=== PATIENT | male | born 1935 | race African-American/Black ===

== ENCOUNTER 2018-12-20 17:39 | Inpatient (IN) | payer MEDICARE ==
[~2018-12-20] VITALS: Ht 182.9 cm; Wt 117.0 kg
--- NOTE | 2018-12-20 18:24 | Emergency Room Report ---
History of Present Illness General Chief Complaint: Abnormal Labs Source: Patient, Medical Record, EMS, PMD Present Illness HPI Patient presents emergency department today with abnormal blood testing. Patient was sent in by Dr. Potter. Patient was noted to have elevated BUN/ creatinine. Patient states that he does not feel well. He states he has been feeling weak not eating not drinking. He denies any fever chest pain shortness breath. Denies any dysuria urinary frequency. No other complaints are noted. Symptoms noted to be moderate to severe. No other modifying factors. No other associated signs and symptoms. No other complaints were noted. Allergies: Coded Allergies: No Known Allergies (Unverified , 12/20/18) Patient History Past Medical History: DM, HTN, CAD, CHF, CVA/TIA Past Surgical History: none Pertinent Family History: none Social History: Denies: smoking, alcohol use, drug use Reviewed Nursing Documentation: PMH: Agreed; PSxH: Agreed Nursing Documentation-PMH Hx Cardiac Problems: Yes - CAD,CHF Hx Hypertension: Yes Hx Diabetes: Yes Hx Cerebrovascular Accident: Yes Review of Systems All Other Systems: negative except mentioned in HPI Physical Exam Vital Signs Date Time Temp Pulse Resp B/P (MAP) Pulse Ox O2 Delivery O2 Flow Rate FiO2 12/20/18 17:35 98.1 66 18 130/69 (89) 98 Room Air Sp02 EP Interpretation: reviewed, normal General Appearance: alert, mild distress Head: atraumatic Eyes: bilateral eye normal inspection ENT: normal ENT inspection, hearing grossly normal, normal voice Neck: normal inspection, full range of motion, supple, no bony tend Respiratory: normal inspection, lungs clear, normal breath sounds, no respiratory distress, no retraction, no wheezing Cardiovascular #1: regular rate, rhythm, no edema Gastrointestinal: normal inspection, normal bowel sounds, non tender, soft, no guarding, no hernia Genitourinary: no CVA tenderness Musculoskeletal: back normal, normal range of motion, swelling - Bilateral lower extremity Neurologic: normal inspection, alert, responsive, speech normal Psychiatric: normal inspection, judgement/insight normal, mood/affect normal Skin: no rash Medical Decision Making Diagnostic Impression: Primary Impression: Acute renal injury Additional Impressions: Hematuria UTI (urinary tract infection) Dehydration ER Course Patient presents emergency department today with weakness abnormal laboratory work-up. Differential diagnosis include dehydration, electrolyte abnormality, acute renal injury just name a few. Given the severity of the patient's presentation I felt this is a highly complex patient. This patient required extensive workup. Patient laboratory work-up shows evidence of renal insufficiency acute renal injury. Because this patient was given fluids. There is also evidence UTI patient started on IV antibiotics. Case was discussed with Dr. Wilfred Potter who referred me to speak with Dr. Marcelo Bar who can be reached at [phone]. After discussion with Dr. Marcelo Potter you recommend I admit the patient to Dr. Jamie Gray. Case was discussed with Dr. Jamie Gray. Patient will be admitted for further management. Labs Test 12/20/18 18:50 White Blood Count 5.9 K/UL (4.8-10.8) Red Blood Count 3.89 M/UL (4.70-6.10) Hemoglobin 12.3 G/DL (14.2-18.0) Hematocrit 36.3 % (42.0-52.0) Mean Corpuscular Volume 93 FL (80-99) Mean Corpuscular Hemoglobin 31.7 PG (27.0-31.0) Mean Corpuscular Hemoglobin Concent 33.9 G/DL (32.0-36.0) Red Cell Distribution Width 11.8 % (11.6-14.8) Platelet Count 118 K/UL (150-450) Mean Platelet Volume 10.2 FL (6.5-10.1) Neutrophils (%) (Auto) 54.8 % (45.0-75.0) Lymphocytes (%) (Auto) 32.2 % (20.0-45.0) Monocytes (%) (Auto) 10.0 % (1.0-10.0) Eosinophils (%) (Auto) 1.5 % (0.0-3.0) Basophils (%) (Auto) 1.5 % (0.0-2.0) Urine Color Brown Urine Appearance Very cloudy Urine pH 5 (4.5-8.0) Urine Specific [place] 1.010 (1.005-1.035) Urine Protein 3+ (NEGATIVE) Urine Glucose (UA) Negative (NEGATIVE) Urine Ketones Negative (NEGATIVE) Urine Blood 5+ (NEGATIVE) Urine Nitrite Negative (NEGATIVE) Urine Bilirubin Negative (NEGATIVE) Urine Urobilinogen Normal MG/DL (0.0-1.0) Urine Leukocyte Esterase 2+ (NEGATIVE) Urine RBC Tntc /HPF (0 - 0) Urine WBC 5-10 /HPF (0 - 0) Urine Squamous Epithelial Cells None /LPF (NONE/OCC) Urine Bacteria Few /HPF (NONE) Sodium Level 141 MMOL/L (136-145) Potassium Level 4.4 MMOL/L (3.5-5.1) Chloride Level 105 MMOL/L (98-107) Carbon Dioxide Level 30 MMOL/L (21-32) Anion Gap 6 mmol/L (5-15) Blood Urea Nitrogen 57 mg/dL (7-18) Creatinine 1.9 MG/DL (0.55-1.30) Estimat Glomerular Filtration Rate mL/min (>60) Glucose Level 123 MG/DL (74-106) Calcium Level 9.1 MG/DL (8.5-10.1) Total Bilirubin 0.4 MG/DL (0.2-1.0) Aspartate Amino Transf (AST/SGOT) 34 U/L (15-37) Alanine Aminotransferase (ALT/SGPT) 36 U/L (12-78) Alkaline Phosphatase 84 U/L (46-116) Total Creatine Kinase 200 U/L (26-308) Creatine Kinase MB 1.6 NG/ML (0.0-3.6) Creatine Kinase MB Relative Index 0.8 Troponin I 0.008 ng/mL (0.000-0.056) Total Protein 7.4 G/DL (6.4-8.2) Albumin 3.3 G/DL (3.4-5.0) Globulin 4.1 g/dL Albumin/Globulin Ratio 0.8 (1.0-2.7) EKG Diagnostic Results Rate: normal Rhythm: NSR ST Segments: no acute changes Rhythm Strip Diag. Results EP Interpretation: yes Rate: 50s Rhythm: NSR, no ectopy, other - occasional pvcs Chest X-Ray Diagnostic Results Chest X-Ray Diagnostic Results : Chest X-Ray Ordered: Yes # of Views/Limited/Complete: 1 View Indication: Shortness of Breath EP Interpretation: Yes Interpretation: no consolidation, no effusion, no pneumothorax, no acute cardiopulmonary disease Impression: No acute disease Electronically Signed by: Electronically signed by Herbert Garza MD Last Vital Signs Date Time Temp Pulse Resp B/P (MAP) Pulse Ox O2 Delivery O2 Flow Rate FiO2 12/20/18 17:35 98.1 66 18 130/69 (31) 98 Room Air Status: improved Disposition: ADMITTED INPATIENT Condition: Serious Herbert Garza MD Dec 20, 2018 18:24
--- NOTE | 2018-12-20 18:25 | NUR ---
ED Nurse Note: PT BROUGHT IN BY AMBULANCE FROM [facility] DUE TO ABNORMAL LABS. PER EMS, CREATININE AND BUN WERE ELEVATED BUT NO VALUES PROVIDED. PT AOX4. PT DENIES ANY SYMPTOMS OR PAIN AND STATES "I FEEL GREAT." PT DENIES ANY PAINFUL URINATION OR DIFFICULTY URINATING.
[2018-12-20 18:29] VITALS: BP 126/72
[2018-12-20] MEDS ORDERED: ISOSORBIDE DINI10 MG ORAL (18:36)
[2018-12-20] MEDS ORDERED: AVODART0.5 MG ORAL (18:36)
[2018-12-20] MEDS ORDERED: ACETAMINOPHEN325 M1 ORAL (18:36)
[2018-12-20] MEDS ORDERED: CATAPRES0.2 MG ORAL (18:36)
[2018-12-20] MEDS ORDERED: BISACODYL5 MG ORAL (18:36)
[2018-12-20] MEDS ORDERED: COREG12.5 MG ORAL (18:36)
[2018-12-20] MEDS ORDERED: LOSARTAN POTASS50 MG ORAL (18:36)
[2018-12-20] MEDS ORDERED: MILK OF MA400 MG/51 ORAL (18:36)
[2018-12-20] MEDS ORDERED: AMLODIPINE BESY10 MG ORAL (18:36)
[2018-12-20] MEDS ORDERED: HYDRALAZINE HCL50 MG ORAL (18:36)
[2018-12-20] MEDS ORDERED: ATORVASTATIN CA40 MG ORAL (18:36)
[2018-12-20] MEDS ORDERED: FUROSEMIDE40 MG ORAL (18:36)
[2018-12-20] MEDS ORDERED: VITAMIN B COMP1 EAC2 ORAL (18:36)
--- NOTE | 2018-12-20 19:17 | NUR ---
HAND-OFF: REPORT GIVEN TO MATT BHATT.
[2018-12-20 19:40] LABS: BASOPHILS % (AUTO) 1.5 % (0.0-2.0); EOSINOPHILS % (AUTO) 1.5 % (0.0-3.0); HEMATOCRIT 36.3 % (42.0-52.0); HEMOGLOBIN 12.3 G/DL (14.2-18.0); LYMPHOCYTES % (AUTO) 32.2 % (20.0-45.0); MEAN CORPUSCULAR VOLUME 93 FL (80-99); NEUTROPHILS % (AUTO) 54.8 % (45.0-75.0); PLATELET COUNT 118 K/UL (150-450); RED BLOOD COUNT 3.89 M/UL (4.70-6.10); RED CELL DISTRIBUTION WIDTH 11.8 % (11.6-14.8); WHITE BLOOD COUNT 5.9 K/UL (4.8-10.8)
[2018-12-20 19:41] LABS: APPEARANCE,URINE VERY CLOUDY; BILIRUBIN, URINE NEGATIVE (NEGATIVE); GLUCOSE, URINE (UA) NEGATIVE (NEGATIVE); KETONES,URINE NEGATIVE (NEGATIVE); LEUKOCYTE ESTERASE ,URINE 2+ (NEGATIVE); NITRITE,URINE NEGATIVE (NEGATIVE); PH,URINE 5 (4.5-8.0); PROTEIN,URINE 3+ (NEGATIVE); UROBILINOGEN,URINE NORMAL MG/DL (0.0-1.0)
[2018-12-20 19:43] LABS: COLOR,URINE BROWN
[2018-12-20 19:55] LABS: ANION GAP 6 mmol/L (5-15); BLOOD UREA NITROGEN 57 mg/dL (7-18); CALCIUM 9.1 MG/DL (8.5-10.1); CARBON DIOXIDE 30 MMOL/L (21-32); CHLORIDE 105 MMOL/L (98-107); CREATININE 1.9 MG/DL (0.55-1.30); POTASSIUM 4.4 MMOL/L (3.5-5.1); SODIUM 141 MMOL/L (136-145)
[2018-12-20 20:08] LABS: ALANINE AMINOTRANSFERASE 36 U/L (12-78); ALBUMIN 3.3 G/DL (3.4-5.0); ALBUMIN/GLOBULIN RATIO 0.8 (1.0-2.7); ALKALINE PHOSPHATASE 84 U/L (46-116); ASPARTATE AMINO TRANSFERASE 34 U/L (15-37); BILIRUBIN,TOTAL 0.4 MG/DL (0.2-1.0); CKMB 1.6 NG/ML (0.0-3.6); CREATINE KINASE 200 U/L (26-308)
[2018-12-20] MEDS ORDERED: cefTRIAXone 1 GM in NS 55 ML IVPB ONE (20:15)
[2018-12-20] MEDS ORDERED: Zolpidem 5mg tab ORAL PRN (20:30)
[2018-12-20] MEDS ORDERED: Nitroglycerin Subl 0.4mg tab SL PRN (20:30)
[2018-12-20] MEDS ORDERED: LORazepam Inj 2mg/ml 1ml IV PRN (20:30)
[2018-12-20] MEDS ORDERED: Ipratropium 0.02% Inh Soln 2.5ml UD HHN PRN (20:30)
--- NOTE | 2018-12-20 21:30 | NUR ---
TRANSFER TO FLOOR: Patient transferred to as ordered, per Dr Gray. Report given to MATT Maradiaga. Belongings and medications given to . Family and or S/O informed of transfer, spoke with daughter Jodi.
--- NOTE | 2018-12-20 21:30 | NUR ---
NURSE NOTES: Report taken from MATT Gonzalez from ER.
--- NOTE | 2018-12-20 21:42 | NUR ---
NURSE NOTES: Patient arrived to unit via hospital bed, can ambulate with moderate assist. No signs of distress on room air. No complaints of pain. Patient is continent, but uses urinal at bedside. Skin is dry and scaly, no open wounds or areas of concern. Has bilateral LE edema, pitting +1, full sensation. Rt FA IV 20g c/d/i and patent. Bed in lowest position, call light within reach.
[2018-12-20] MEDS ORDERED: Heparin 5000 units/ml inj SUBQ SCH (21:47)
[2018-12-21] VITALS (8 sets, daily range): BP systolic 131–200; BP diastolic 66–103
[2018-12-21] MEDS: Albuterol/Ipratropium 3ml neb HHN SCH ×4 (00:57→20:05)
[2018-12-21] MEDS ORDERED: Milk of Magnesia 30ml Ud ORAL PRN (06:30)
[2018-12-21] MEDS ORDERED: HydrALAZINE 25mg tab ORAL PRN (06:30)
[2018-12-21] MEDS: HYDROmorphone 1mg/ml Carpuject IVP PRN ×2 (06:42→16:29)
[2018-12-21] MEDS: NovoLOG Insulin Flexpen SUBQ SCH ×4 (06:48→22:11)
[2018-12-21 07:16] LABS: BASOPHILS % (AUTO) 0.9 % (0.0-2.0); EOSINOPHILS % (AUTO) 1.7 % (0.0-3.0); HEMATOCRIT 37.4 % (42.0-52.0); LYMPHOCYTES % (AUTO) 31.2 % (20.0-45.0); MEAN CORPUSCULAR VOLUME 97 FL (80-99); MONOCYTES % (AUTO) 10.5 % (1.0-10.0); NEUTROPHILS % (AUTO) 55.7 % (45.0-75.0); PLATELET COUNT 110 K/UL (150-450); RED BLOOD COUNT 3.85 M/UL (4.70-6.10); RED CELL DISTRIBUTION WIDTH 12.1 % (11.6-14.8); WHITE BLOOD COUNT 4.8 K/UL (4.8-10.8)
--- NOTE | 2018-12-21 07:25 | NUR ---
NURSE NOTES: Report received from Hiren RN, rounds made. Patient resting in high fowlers position in bed. Alert, oriented x4, calm. No distress on RA. IVF (NS at 50 ml/hr) infusing to RFA. BLE ankle/pedal +2 pitting edema, dry/flaky skin noted, skin intact. Patient having difficulty/pain with voiding, noted bloody urine output, small amount, unable to obtain UA. Encouraged PO fluid intake. Appetite poor, denies NV. Call light in reach. Bed in lowest position, will continue to monitor.
[2018-12-21 07:34] LABS: ALKALINE PHOSPHATASE 64 U/L (46-116); ANION GAP 6 mmol/L (5-15); BLOOD UREA NITROGEN 45 mg/dL (7-18); CARBON DIOXIDE 31 MMOL/L (21-32); CHLORIDE 105 MMOL/L (98-107); CHOLESTEROL 107 MG/DL (< 200); CREATININE 1.6 MG/DL (0.55-1.30); HDL CHOLESTEROL 45 MG/DL (40-60); POTASSIUM 3.6 MMOL/L (3.5-5.1); SODIUM 142 MMOL/L (136-145); TRIGLYCERIDES 89 MG/DL (30-150)
--- NOTE | 2018-12-21 07:36 | NUR ---
HAND-OFF: Report given to MATT David. Patient is awake and VS stable.
--- NOTE | 2018-12-21 08:38 | NUR ---
NURSE NOTES: Dr. Omer notified of platelets 110, order with Heparin administration parameters received. See order.
[2018-12-21] MEDS ORDERED: Furosemide 40mg tab ORAL SCH (09:00)
[2018-12-21] MEDS ORDERED: Losartan 50mg tab ORAL SCH (09:00)
[2018-12-21] MEDS ORDERED: HydrALAZINE 50mg tab ORAL SCH (09:00)
[2018-12-21] MEDS: Heparin 5000 units/ml inj SUBQ SCH ×2 (09:38→22:10)
[2018-12-21] MEDS: Carvedilol 12.5mg tab ORAL SCH ×2 (09:40→22:04)
[2018-12-21] MEDS: Bisacodyl EC 5mg tab ORAL SCH (09:41)
--- NOTE | 2018-12-21 10:30 | NUR ---
NURSE NOTES: Dr. Sofia notified of BP 200/103 and urinary pain/output characteristics, MD will update orders.
--- NOTE | 2018-12-21 10:41 | NUR ---
NURSE NOTES: Blood pressure recheck 172/73 mmHg, HR 87. Patient sitting in chair (transferred with x2 assist), asymptomatic, no chest pain, SOB, or dizziness at this, will continue to monitor.
--- NOTE | 2018-12-21 11:15 | Diagnostic Imaging Report ---
Indication: Cough Comparison: None A single view chest radiograph was obtained. Findings: No definite infiltrate or pulmonary vascular congestion identified. The heart is enlarged. The aorta is mildly enlarged consistent with atherosclerotic vascular disease. The bones are osteopenic. Impression: No acute disease
--- NOTE | 2018-12-21 11:31 | Cardiac Electrophysiology PN ---
Subjective Subjective [id number] Objective Last 24 Hour Vital Signs Date Time Temp Pulse Resp B/P (MAP) Pulse Ox O2 Delivery O2 Flow Rate FiO2 12/21/18 10:42 87 172/73 (106) 12/21/18 09:41 92 200/103 12/21/18 09:40 200/103 12/21/18 09:40 200/103 12/21/18 09:40 92 200/103 12/21/18 09:39 200/103 12/21/18 09:00 Room Air 12/21/18 08:00 97.9 92 19 200/103 (135) 94 12/21/18 07:37 Room Air 21 12/21/18 07:36 Room Air 21 12/21/18 06:43 184/90 12/21/18 04:00 98.1 65 18 172/82 (112) 95 12/21/18 01:07 84 18 98 Room Air 21 12/21/18 00:58 84 18 96 Room Air 21 12/21/18 00:58 84 18 96 Room Air 21 12/21/18 00:00 97.4 67 18 140/73 (95) 99 12/20/18 22:00 Room Air 12/20/18 21:30 98.2 72 17 126/72 99 Room Air 12/20/18 18:29 98.2 72 17 126/72 99 Room Air 12/20/18 17:35 98.1 66 18 130/69 (89) 98 Room Air Intake and Output 12/20/18 12/21/18 19:00 07:00 Intake Total 50 ml Output Total 1200 ml Balance -1150 ml IV Total 50 ml Output Urine Total 1200 ml # Voids 1 Laboratory Tests Test 12/20/18 18:50 12/21/18 05:40 White Blood Count 5.9 K/UL (4.8-10.8) 4.8 K/UL (4.8-10.8) Red Blood Count 3.89 M/UL (4.70-6.10) L 3.85 M/UL (4.70-6.10) L Hemoglobin 12.3 G/DL (14.2-18.0) L 12.0 G/DL (14.2-18.0) L Hematocrit 36.3 % (42.0-52.0) L 37.4 % (42.0-52.0) L Mean Corpuscular Volume 93 FL (80-99) 97 FL (80-99) Mean Corpuscular Hemoglobin 31.7 PG (27.0-31.0) H 31.2 PG (27.0-31.0) H Mean Corpuscular Hemoglobin Concent 33.9 G/DL (32.0-36.0) 32.2 G/DL (32.0-36.0) Red Cell Distribution Width 11.8 % (11.6-14.8) 12.1 % (11.6-14.8) Platelet Count 118 K/UL (150-450) L 110 K/UL (150-450) L Mean Platelet Volume 10.2 FL (6.5-10.1) H 9.3 FL (6.5-10.1) Neutrophils (%) (Auto) 54.8 % (45.0-75.0) 55.7 % (45.0-75.0) Lymphocytes (%) (Auto) 32.2 % (20.0-45.0) 31.2 % (20.0-45.0) Monocytes (%) (Auto) 10.0 % (1.0-10.0) 10.5 % (1.0-10.0) H Eosinophils (%) (Auto) 1.5 % (0.0-3.0) 1.7 % (0.0-3.0) Basophils (%) (Auto) 1.5 % (0.0-2.0) 0.9 % (0.0-2.0) Urine Color Brown Urine Appearance Very cloudy Urine pH 5 (4.5-8.0) Urine Specific [place] 1.010 (1.005-1.035) Urine Protein 3+ (NEGATIVE) H Urine Glucose (UA) Negative (NEGATIVE) Urine Ketones Negative (NEGATIVE) Urine Blood 5+ (NEGATIVE) H Urine Nitrite Negative (NEGATIVE) Urine Bilirubin Negative (NEGATIVE) Urine Urobilinogen Normal MG/DL (0.0-1.0) Urine Leukocyte Esterase 2+ (NEGATIVE) H Urine RBC Tntc /HPF (0 - 0) H Urine WBC 5-10 /HPF (0 - 0) H Urine Squamous Epithelial Cells None /LPF (NONE/OCC) Urine Bacteria Few /HPF (NONE) Sodium Level 141 MMOL/L (136-145) 142 MMOL/L (136-145) Potassium Level 4.4 MMOL/L (3.5-5.1) 3.6 MMOL/L (3.5-5.1) Chloride Level 105 MMOL/L (98-107) 105 MMOL/L (98-107) Carbon Dioxide Level 30 MMOL/L (21-32) 31 MMOL/L (21-32) Anion Gap 6 mmol/L (5-15) 6 mmol/L (5-15) Blood Urea Nitrogen 57 mg/dL (7-18) H 45 mg/dL (7-18) H Creatinine 1.9 MG/DL (0.55-1.30) H 1.6 MG/DL (0.55-1.30) H Estimat Glomerular Filtration Rate mL/min (>60) mL/min (>60) Glucose Level 123 MG/DL (74-106) H 105 MG/DL (74-106) Hemoglobin A1c 5.7 % (4.3-6.0) Calcium Level 9.1 MG/DL (8.5-10.1) 9.0 MG/DL (8.5-10.1) Total Bilirubin 0.4 MG/DL (0.2-1.0) Aspartate Amino Transf (AST/SGOT) 34 U/L (15-37) Alanine Aminotransferase (ALT/SGPT) 36 U/L (12-78) Alkaline Phosphatase 84 U/L (46-116) 64 U/L (46-116) Total Creatine Kinase 200 U/L (26-308) Creatine Kinase MB 1.6 NG/ML (0.0-3.6) Creatine Kinase MB Relative Index 0.8 Troponin I 0.008 ng/mL (0.000-0.056) Total Protein 7.4 G/DL (6.4-8.2) Albumin 3.3 G/DL (3.4-5.0) L Globulin 4.1 g/dL Albumin/Globulin Ratio 0.8 (1.0-2.7) L Prothrombin Time 10.7 SEC (9.30-11.50) Prothromb Time International Ratio 1.0 (0.9-1.1) Activated Partial Thromboplast Time 29 SEC (23-33) Triglycerides Level 89 MG/DL (30-150) Cholesterol Level 107 MG/DL (< 200) LDL Cholesterol 49 mg/dL (<100) HDL Cholesterol 45 MG/DL (40-60) Cholesterol/HDL Ratio 2.4 (3.3-4.4) L Prostate Specific Antigen 1.24 ng/mL (0.13-4.0) Kd Fish MD Dec 21, 2018 11:31
[2018-12-21 11:59] LABS: APPEARANCE,URINE VERY CLOUDY; BILIRUBIN, URINE NEGATIVE (NEGATIVE); COLOR,URINE RED; GLUCOSE, URINE (UA) NEGATIVE (NEGATIVE); KETONES,URINE NEGATIVE (NEGATIVE); LEUKOCYTE ESTERASE ,URINE 1+ (NEGATIVE); NITRITE,URINE NEGATIVE (NEGATIVE); PH,URINE 7 (4.5-8.0); PROTEIN,URINE 4+ (NEGATIVE); UROBILINOGEN,URINE NORMAL MG/DL (0.0-1.0)
[2018-12-21] MEDS: Tamsulosin 0.4mg cap ORAL SCH ×2 (12:02→17:41)
[2018-12-21] MEDS: Imdur 30mg tab ORAL SCH (12:03)
--- NOTE | 2018-12-21 13:20 | Consultation ---
Consult Note Consult Note asked to eval for renal failure and BP management Patient presents emergency department today with abnormal blood testing. Patient was sent in by Dr. Potter. Patient was noted to have elevated BUN/ creatinine. Patient states that he does not feel well. He states he has been feeling weak not eating not drinking. He denies any fever chest pain shortness breath. Denies any dysuria urinary frequency. No other complaints are noted. Symptoms noted to be moderate to severe. No other modifying factors. No other associated signs and symptoms. No other complaints were noted. No Known Allergies (Unverified , 12/20/18) Past Medical History: DM, HTN, CAD, CHF, CVA/TIA Hx Cardiac Problems: Yes - CAD,CHF Hx Hypertension: Yes Hx Diabetes: Yes Hx Cerebrovascular Accident: Yes interviewed examined data reviewed cc of dysuria and hematuria . Assessment/Plan ANGELA HTN OOC Hematuria- Likely UTI Dehydration DM CAD Urine culture- Flomax Rocephin Slow hydrate 2D echo Keep BP and BS in check per orders Russell Sofia MD Dec 21, 2018 13:20
[2018-12-21] MEDS ORDERED: cloNIDine 0.2mg Tab ORAL SCH (14:00)
[2018-12-21] MEDS ORDERED: cefTRIAXone 1 GM in D5W 55 ML IVPB ONE (14:00)
[2018-12-21] MEDS: HydrALAZINE 50mg tab ORAL SCH (14:28)
--- NOTE | 2018-12-21 15:05 | NUR ---
P.T NOTE: P.T EVALUATION COMPLETED AND TREATMENT INITIATED. PLEASE REFER TO P.T EVALUATION FOR CURRENT FUNCTIONAL STATUS. PATIENT IS ALERT, O X 3 , PLEASANT AND COOPERATIVE, NO C/O PAIN BUT GENERALIZED WEAKNESS. PATIENT CURRENTLY REQUIRE MOD A X 1 FOR BED MOBILITY AND AND TRANSFERS AND CGA X 1 FOR GAIT/AMBULATION ACTIVITIES USING THE FWW. SKILLED P.T SERVICE IS WARRANTED TO IMPROVE STRENGTH , ENDURANCE AND BALANCE TO INCREASE MOBILITY INDEPENDENCE AND SAFETY. RECOMMEND RETURN TO PRIOR LIVING ARRANGEMENT AT [facility]. Addendum: 12/21/18 at 1507 by SERGIO HODGSON PT Amended: Links added.
--- NOTE | 2018-12-21 15:28 | Diagnostic Imaging Report ---
Indication: Hematuria Technique: Grayscale and duplex Doppler imaging of the kidneys performed. Comparison: None Findings: The size, contour, and echogenicity of both kidneys are within normal limits. There are multiple parapelvic cysts bilaterally. There is no hydronephrosis.. The right kidney measures 9.3 cm. in length. The left kidney measures 10.4 cm. in length. The IVC is patent. Masslike nonsmall bowel nodular filling defects are demonstrated within the bladder. For example there is a 2.8 x 1.5 cm mass. Another 3.4 x 2.4 cm mass noted. Several other lesions noted. Cystoscopic evaluation and possible biopsy recommended. IMPRESSION: Multiple masslike lesions within the bladder. Further evaluation with cystoscopy is recommended to evaluate for possible neoplasm. Multiple parapelvic renal cysts
--- NOTE | 2018-12-21 16:43 | Consultation ---
History of Present Illness General Chief Complaint: Abnormal Labs Present Illness Allergies: Coded Allergies: No Known Allergies (Unverified , 12/20/18) Medication History Scheduled Amlodipine Besylate* (Amlodipine Besylate*), 10 MG ORAL DAILY, (Reported) Atorvastatin Calcium* (Atorvastatin Calcium*), 80 MG ORAL BEDTIME, (Reported) Bisacodyl* (Dulcolax*), 5 MG ORAL DAILY, (Reported) Carvedilol (Coreg), 12.5 MG ORAL EVERY 12 HOURS, (Reported) Clonidine Hcl* (Catapres*), 0.2 MG ORAL Q8HR, (Reported) Dutasteride (Avodart), 0.5 MG ORAL DAILY, (Reported) Furosemide* (Lasix*), 40 MG ORAL TWICE A DAY, (Reported) Hydralazine Hcl* (Hydralazine Hcl*), 50 MG ORAL BID, (Reported) Isosorbide Dinitrate* (Isordil*), 20 MG ORAL DAILY, (Reported) Losartan Potassium* (Losartan Potassium*), 100 MG ORAL DAILY, (Reported) Vitamin B Complex (Vitamin B Complex), 1 CAP ORAL DAILY, (Reported) Scheduled PRN Acetaminophen* (Acetaminophen 325MG Tablet*), 650 MG ORAL Q4H PRN for For Pain, (Reported) Magnesium Hydroxide* (Milk Of Magnesia*), 30 ML ORAL EVERY 6 HOURS PRN for stomach upset, (Reported) Patient History Healthcare decision maker SELF Resuscitation status Full Code Advanced Directive on File Yes Physical Exam Last 24 Hour Vital Signs Date Time Temp Pulse Resp B/P (MAP) Pulse Ox O2 Delivery O2 Flow Rate FiO2 12/21/18 14:28 175/76 12/21/18 14:28 175/76 12/21/18 12:09 82 18 99 Room Air 21 12/21/18 12:03 154/66 12/21/18 12:00 97.8 81 20 154/66 (95) 98 12/21/18 12:00 92 18 97 Room Air 21 12/21/18 10:42 87 172/73 (106) 12/21/18 09:41 92 200/103 12/21/18 09:40 200/103 12/21/18 09:40 200/103 12/21/18 09:40 92 200/103 12/21/18 09:39 200/103 12/21/18 09:00 Room Air 12/21/18 08:00 97.9 92 19 200/103 (135) 94 12/21/18 07:37 Room Air 21 12/21/18 07:36 Room Air 21 12/21/18 06:43 184/90 12/21/18 04:00 98.1 65 18 172/82 (112) 95 12/21/18 01:07 84 18 98 Room Air 21 12/21/18 00:58 84 18 96 Room Air 21 12/21/18 00:58 84 18 96 Room Air 21 12/21/18 00:00 97.4 67 18 140/73 (95) 99 12/20/18 22:00 Room Air 12/20/18 21:30 98.2 72 17 126/72 99 Room Air 12/20/18 18:29 98.2 72 17 126/72 99 Room Air 12/20/18 17:35 98.1 66 18 130/69 (89) 98 Room Air Intake and Output 12/20/18 12/21/18 19:00 07:00 Intake Total 50 ml Output Total 1200 ml Balance -1150 ml IV Total 50 ml Output Urine Total 1200 ml # Voids 1 Laboratory Tests Test 12/20/18 18:50 12/21/18 05:40 12/21/18 11:35 White Blood Count 5.9 K/UL (4.8-10.8) 4.8 K/UL (4.8-10.8) Red Blood Count 3.89 M/UL (4.70-6.10) L 3.85 M/UL (4.70-6.10) L Hemoglobin 12.3 G/DL (14.2-18.0) L 12.0 G/DL (14.2-18.0) L Hematocrit 36.3 % (42.0-52.0) L 37.4 % (42.0-52.0) L Mean Corpuscular Volume 93 FL (80-99) 97 FL (80-99) Mean Corpuscular Hemoglobin 31.7 PG (27.0-31.0) H 31.2 PG (27.0-31.0) H Mean Corpuscular Hemoglobin Concent 33.9 G/DL (32.0-36.0) 32.2 G/DL (32.0-36.0) Red Cell Distribution Width 11.8 % (11.6-14.8) 12.1 % (11.6-14.8) Platelet Count 118 K/UL (150-450) L 110 K/UL (150-450) L Mean Platelet Volume 10.2 FL (6.5-10.1) H 9.3 FL (6.5-10.1) Neutrophils (%) (Auto) 54.8 % (45.0-75.0) 55.7 % (45.0-75.0) Lymphocytes (%) (Auto) 32.2 % (20.0-45.0) 31.2 % (20.0-45.0) Monocytes (%) (Auto) 10.0 % (1.0-10.0) 10.5 % (1.0-10.0) H Eosinophils (%) (Auto) 1.5 % (0.0-3.0) 1.7 % (0.0-3.0) Basophils (%) (Auto) 1.5 % (0.0-2.0) 0.9 % (0.0-2.0) Urine Color Brown Red Urine Appearance Very cloudy Very cloudy Urine pH 5 (4.5-8.0) 7 (4.5-8.0) Urine Specific [place] 1.010 (1.005-1.035) 1.010 (1.005-1.035) Urine Protein 3+ (NEGATIVE) H 4+ (NEGATIVE) H Urine Glucose (UA) Negative (NEGATIVE) Negative (NEGATIVE) Urine Ketones Negative (NEGATIVE) Negative (NEGATIVE) Urine Blood 5+ (NEGATIVE) H 5+ (NEGATIVE) H Urine Nitrite Negative (NEGATIVE) Negative (NEGATIVE) Urine Bilirubin Negative (NEGATIVE) Negative (NEGATIVE) Urine Urobilinogen Normal MG/DL (0.0-1.0) Normal MG/DL (0.0-1.0) Urine Leukocyte Esterase 2+ (NEGATIVE) H 1+ (NEGATIVE) H Urine RBC Tntc /HPF (0 - 0) H Tntc /HPF (0 - 0) H Urine WBC 5-10 /HPF (0 - 0) H 2-4 /HPF (0 - 0) Urine Squamous Epithelial Cells None /LPF (NONE/OCC) Occasional /LPF Urine Bacteria Few /HPF (NONE) Few /HPF (NONE) Sodium Level 141 MMOL/L (136-145) 142 MMOL/L (136-145) Potassium Level 4.4 MMOL/L (3.5-5.1) 3.6 MMOL/L (3.5-5.1) Chloride Level 105 MMOL/L (98-107) 105 MMOL/L (98-107) Carbon Dioxide Level 30 MMOL/L (21-32) 31 MMOL/L (21-32) Anion Gap 6 mmol/L (5-15) 6 mmol/L (5-15) Blood Urea Nitrogen 57 mg/dL (7-18) H 45 mg/dL (7-18) H Creatinine 1.9 MG/DL (0.55-1.30) H 1.6 MG/DL (0.55-1.30) H Estimat Glomerular Filtration Rate mL/min (>60) mL/min (>60) Glucose Level 123 MG/DL (74-106) H 105 MG/DL (74-106) Hemoglobin A1c 5.7 % (4.3-6.0) Calcium Level 9.1 MG/DL (8.5-10.1) 9.0 MG/DL (8.5-10.1) Total Bilirubin 0.4 MG/DL (0.2-1.0) Aspartate Amino Transf (AST/SGOT) 34 U/L (15-37) Alanine Aminotransferase (ALT/SGPT) 36 U/L (12-78) Alkaline Phosphatase 84 U/L (46-116) 64 U/L (46-116) Total Creatine Kinase 200 U/L (26-308) Creatine Kinase MB 1.6 NG/ML (0.0-3.6) Creatine Kinase MB Relative Index 0.8 Troponin I 0.008 ng/mL (0.000-0.056) Total Protein 7.4 G/DL (6.4-8.2) Albumin 3.3 G/DL (3.4-5.0) L Globulin 4.1 g/dL Albumin/Globulin Ratio 0.8 (1.0-2.7) L Prothrombin Time 10.7 SEC (9.30-11.50) Prothromb Time International Ratio 1.0 (0.9-1.1) Activated Partial Thromboplast Time 29 SEC (23-33) Triglycerides Level 89 MG/DL (30-150) Cholesterol Level 107 MG/DL (< 200) LDL Cholesterol 49 mg/dL (<100) HDL Cholesterol 45 MG/DL (40-60) Cholesterol/HDL Ratio 2.4 (3.3-4.4) L Prostate Specific Antigen 1.24 ng/mL (0.13-4.0) Height (Feet): 6 Height (Inches): 0.00 Weight (Pounds): 180 Medications Current Medications Medications (Trade) Dose Ordered Sig/Sallie Route PRN Reason Start Time Stop Time Status Last Admin Dose Admin Acetaminophen (Tylenol) 650 mg Q4H PRN ORAL fever 12/20/18 20:30 01/19/19 20:29 Albuterol/ Ipratropium (Albuterol/ Ipratropium) 3 ml Q6HRT HHN 12/21/18 01:00 12/26/18 00:59 12/21/18 12:00 Amlodipine Besylate (Norvasc) 10 mg DAILY ORAL 12/21/18 09:00 01/20/19 08:59 12/21/18 09:41 Atorvastatin Calcium (Lipitor) 20 mg BEDTIME ORAL 12/21/18 21:00 01/20/19 20:59 Bisacodyl (Dulcolax) 5 mg DAILY ORAL 12/21/18 09:00 01/20/19 08:59 12/21/18 09:41 Carvedilol (Coreg) 12.5 mg EVERY 12 HOURS ORAL 12/21/18 09:00 01/20/19 08:59 12/21/18 09:40 Ceftriaxone Sodium 1 gm/ Dextrose 55 ml @ 110 mls/hr Q24H IVPB 12/22/18 14:00 12/29/18 13:59 Clonidine HCl (Catapres Tab) 0.1 mg Q4H PRN ORAL bp over 165 syst 12/21/18 11:45 01/20/19 11:44 Clonidine HCl (Catapres Tab) 0.1 mg Q8HR ORAL 12/21/18 14:00 01/20/19 13:59 12/21/18 14:28 Dextrose (Dextrose 50%) 25 ml Q30M PRN IV Hypoglycemia 12/20/18 20:30 01/19/19 20:29 Dextrose (Dextrose 50%) 50 ml Q30M PRN IV Hypoglycemia 12/20/18 20:30 01/19/19 20:29 Diphenhydramine HCl (Benadryl) 25 mg Q6H PRN ORAL Itching/Pruritis 12/20/18 20:30 01/19/19 20:29 Docusate Sodium (Colace) 100 mg THREE TIMES A DAY ORAL 12/21/18 18:00 01/20/19 17:59 Heparin Sodium (Porcine) (Heparin 5000 units/ml) 5,000 units EVERY 12 HOURS SUBQ 12/21/18 09:00 01/19/19 21:46 12/21/18 09:38 Hydralazine HCl (Apresoline) 50 mg Q8HR ORAL 12/21/18 14:00 01/20/19 08:59 12/21/18 14:28 Hydromorphone HCl (Dilaudid) 1 mg Q6H PRN IVP Moderate Pain (Pain Scale 4-6) 12/20/18 20:30 12/27/18 20:29 12/21/18 16:29 Insulin Aspart (NovoLOG) BEFORE MEALS AND HS SUBQ 12/21/18 06:30 01/20/19 06:29 12/21/18 12:00 Ipratropium [place] (Atrovent) 500 mcg Q8H PRN HHN Bronchospasm 12/20/18 20:30 12/25/18 20:29 Isosorbide Mononitrate (Imdur) 60 mg DAILY ORAL 12/21/18 11:45 01/20/19 11:44 12/21/18 12:03 Lorazepam (Ativan 2mg/ml 1ml) 0.5 mg Q4H PRN IV For Anxiety 12/20/18 20:30 12/27/18 20:29 Losartan Potassium (Cozaar) 100 mg DAILY ORAL 12/21/18 09:00 01/20/19 08:59 12/21/18 09:39 Nitroglycerin (Ntg) 0.4 mg Q5M X 3 DOSES PRN SL Prn Chest Pain 12/20/18 20:30 01/19/19 20:29 Ondansetron HCl (Zofran) 4 mg Q6H PRN IVP Nausea & Vomiting 12/20/18 20:30 01/19/19 20:29 Pantoprazole (Protonix) 40 mg EVERY 12 HOURS ORAL 12/21/18 21:00 01/20/19 20:59 Sodium Chloride 1,000 ml @ 50 mls/hr Q20H IVLG 12/20/18 21:47 01/19/19 21:46 12/21/18 16:30 Tamsulosin HCl (Flomax) 0.4 mg BID ORAL 12/21/18 11:45 01/20/19 11:44 12/21/18 12:02 Zolpidem Tartrate (Ambien) 5 mg HSPRN PRN ORAL Insomnia 12/20/18 20:30 12/27/18 20:29 Assessment/Plan Assessment/Plan: Hematology Consultation REQ MD: Zenaida Gray DOS: 12/21/18 RFC: Low plts, anemia ID [id number] old male presents emergency department today with abnormal blood testing. Patient was sent in by our clinic from [facility]. Patient was noted to have elevated BUN/creatinine, blood clots in the urine noted as well. Patient states that he does not feel well. He states he has been feeling weak not eating not drinking. He denies any fever chest pain shortness breath. Denies any dysuria urinary frequency. No other complaints are noted. Symptoms noted to be moderate to severe. No other modifying factors. No other associated signs and symptoms. No other complaints were noted. Coded Allergies: No Known Allergies (Unverified , 12/20/18) Patient History Past Medical History: DM, HTN, CAD, CHF, CVA/TIA Past Surgical History: none Pertinent Family History: none Social History: Denies: smoking, alcohol use, drug use Reviewed Nursing Documentation: PMH: Agreed; PSxH: Agreed Nursing Documentation-PMH Hx Cardiac Problems: Yes - CAD,CHF Hx Hypertension: Yes Hx Diabetes: Yes Hx Cerebrovascular Accident: Yes Review of Systems All Other Systems: negative except mentioned in HPI Physical Exam: Vitals: reviewed General Appearance: NAD HEENT: normocephalic, atraumatic Neck: non-tender, normal alignment Respiratory/Chest: normal breath sounds bilaterally Cardiovascular/Chest: normal peripheral pulses, normal rate Abdomen: normal bowel sounds, soft, nontender Extremities: normal range of motion + clots noted in urinal Skin: no rash Labs: noted Imaging: noted ER MDM/Plan Medical Decision Making Diagnostic Impression: # Thrombocytopenia - potential causes multifactorial, evaluate liver and viral etiologies to begin, also could be related to underlying medications patient has received. --> Hep panel and HIV ordered --> US abd to evaluate for cirrhosis and hsm ordered --> Peripheral smear ordered to evaluate for blasts /schistocytes --> abx and other meds have been reviewed --> ok for ppx if plt >50k w/ either heparin or lovenox --> Transfuse if Plt < 20k and fever, or if Plt < 10k without fever # Anemia of chronic disease --> obtain basic w/u --> may be due to hematuria --> have started on ivf and consider uro prn # Acute renal injury --> cr has improved 2.3-->1.8 --> per renal recs --> volume expansion # HTN --> cards consulted # Hematuria # UTI (urinary tract infection) # Dehydration The timing of this note does not necessarily reflect the time of the patient was seen. GREATLY APPRECIATE CONSULTATION. Marcelo Mcallister MD Dec 21, 2018 16:43
--- NOTE | 2018-12-21 16:45 | Consultation ---
DATE OF CONSULTATION: 12/21/2018 CARDIOLOGY CONSULTATION CONSULTING PHYSICIAN: Kd Fish M.D. REFERRING PHYSICIAN: Jamie Gray D.O. REASON FOR CONSULTATION: History of hypertension, coronary artery disease, congestive heart failure. HISTORY OF PRESENT ILLNESS: The patient is 83-year-old gentleman with history of hypertension, diabetes, congestive heart failure, history of CVA, and coronary artery disease, presented to the emergency for abnormal blood testing. The patient was sent in by Dr. Mcallister and noted to have elevated BUN and creatinine. The patient denies any chest pain or shortness of breath. The patient, however, noted to have hematuria, and was admitted and a Cardiology consultation was obtained. REVIEW OF SYSTEMS: Review of systems was negative other than what was mentioned in the history of present illness. PAST MEDICAL HISTORY: As mentioned above. FAMILY HISTORY: Noncontributory. SOCIAL HISTORY: Does not smoke or drink alcohol. PHYSICAL EXAMINATION: VITAL SIGNS: Blood pressure was as high as 200/103, currently 172/73, pulse 87, respirations 18, and temperature 97.9. HEAD AND NECK: Showed no JVD. LUNGS: Clear. CARDIOVASCULAR: Regular S1 and S2 with no gallop or murmur. ABDOMEN: Soft. EXTREMITIES: A 1+ pitting edema. LABORATORY DATA: Labs show white count 4.8, hemoglobin 12, hematocrit 37.5, and platelet count 110,000. Sodium 142, potassium 3.6, BUN of 45, creatinine 1.6, and glucose of 108. Initial BUN was 57, creatinine 1.9. Troponin is negative. ASSESSMENT AND PLAN: 1. Accelerated hypertension with blood pressure of around 200. The patient is on clonidine 0.2 mg every 8 hours as well as Norvasc 10 mg daily and Lasix 40 mg p.o. b.i.d. Increase the Coreg to 25 mg b.i.d. The patient already on losartan 100 mg daily as well as Imdur 20 mg daily. The patient also on p.r.n. hydralazine. 2. History of coronary artery disease. We will get EKG and echocardiogram for further evaluation. 3. Hyperlipidemia on Lipitor. 4. Renal failure. Further evaluation by Nephrology. 5. Hematuria. Urology evaluation is pending. Thank you very much, Dr. Gray, for allowing me to participate in the care of this patient. Please do not hesitate to contact me for any questions regarding my evaluation. Sincerely, Kd Fish M.D. DR: Vahe JOB#: [id number] CC:
--- NOTE | 2018-12-21 17:15 | History and Physical Report ---
DATE OF ADMISSION: 12/20/2018 DATE AND TIME SEEN: 12/21/2018 at 11 a.m. CONSULTANTS: 1. Kd Fish M.D. 2. Marcelo Mcallister M.D. 3. Russell Sofia M.D. CHIEF COMPLAINT: Weakness and lethargy. BRIEF HISTORY: This is an 83-year-old male from [facility] went to see his lawyers, Dr. Mcallister, was found to be very lethargic and weak, was sent directly to [facility] for weakness, ANGELA, CHF, edema and admitted to medical floor for further treatment. Currently, sitting in chair, calm, slight short of breath. Slightly weak. No complaint. REVIEW OF SYSTEMS: No chest pain. Slight short of breath. No nausea, vomiting, or diarrhea. PAST MEDICAL HISTORY: Includes acute renal failure, CHF, hypertension, and diabetes. PAST SURGICAL HISTORY: None. ALLERGIES: Denies. MEDICATIONS: Include atorvastatin, pantoprazole, hydralazine, isosorbide, amlodipine, furosemide, losartan, albuterol, nitroglycerin, and ceftriaxone. SOCIAL HISTORY: No smoking. No alcohol. No intravenous drug abuse. FAMILY HISTORY: Noncontributory. PHYSICAL EXAMINATION: GENERAL: Calm, sitting in chair, oriented x3, in no acute distress. VITAL SIGNS: Show temperature is 97 degrees, pulse 92, respirations 19, and blood pressure 172/73. CARDIOVASCULAR: No murmurs. LUNGS: Poor air exchange. ABDOMEN: Bowel sounds positive. Nontender. Nondistended. EXTREMITIES: No cyanosis or clubbing. 1+ edema. NEUROLOGIC: The patient moves all extremities, slightly weak. LABORATORY AND DIAGNOSTIC DATA: Labs at this time show H and H is 12/37 and platelets 110,000. BMP shows BUN and creatinine of 45/1.6. Urinalysis - 5+ blood, 2+ leukocyte esterase. INR . ASSESSMENT: 1. Urinary tract infection. 2. Congestive heart failure. 3. Hypertension. 4. Diabetes. 5. Acute renal failure. 6. Edema. PLAN: 1. Antibiotics as ordered. 2. Blood pressure and blood sugar control. 3. O2 and pulmonary treatment. 4. Dietary followup. 5. Diurese p.r.n. 6. Nephrology followup. 7. PT and dietary evaluation. 8. CBC and BMP in the morning. 9. We will continue to follow this patient. Jamie Gray D.O. DR: VITO JOB#: [id number] CC:
--- NOTE | 2018-12-21 17:39 | NUR ---
NURSE NOTES: Notified Dr. Omer that patient states Dilaudid 1 mg IVP is not very effective, order received to increase to 2 mg, see order. Updated patient and family, verbalized understanding.
[2018-12-21] MEDS: Docusate 100mg cap ORAL SCH (17:41)
--- NOTE | 2018-12-21 19:45 | NUR ---
NURSE NOTES: Received report from MATT David. Patient awake, alert, oriented. Bed in low position, locked and call light within reach. Patient's IV checked, cleaned and IVF infusing well. No complaints of pain. Will continue to monitor.
--- NOTE | 2018-12-21 19:45 | NUR ---
HAND-OFF: Report given to Shelly GUTIERREZ.
--- NOTE | 2018-12-21 20:14 | Consultation ---
History of Present Illness General Date patient seen: Dec 21, 2018 Chief Complaint: Abnormal Labs Present Illness HPI 83 year old male with hx of DM, HTN, CAD, CHF, CVA/TIA presented to emergency department today with abnormal blood testing including elevated BUN/ creatinine. Patient states that he does not feel well. He states he has been feeling weak not eating not drinking. He is admitted for further work up. Allergies: Coded Allergies: No Known Allergies (Unverified , 12/20/18) Medication History Scheduled Amlodipine Besylate* (Amlodipine Besylate*), 10 MG ORAL DAILY, (Reported) Atorvastatin Calcium* (Atorvastatin Calcium*), 80 MG ORAL BEDTIME, (Reported) Bisacodyl* (Dulcolax*), 5 MG ORAL DAILY, (Reported) Carvedilol (Coreg), 12.5 MG ORAL EVERY 12 HOURS, (Reported) Clonidine Hcl* (Catapres*), 0.2 MG ORAL Q8HR, (Reported) Dutasteride (Avodart), 0.5 MG ORAL DAILY, (Reported) Furosemide* (Lasix*), 40 MG ORAL TWICE A DAY, (Reported) Hydralazine HCl (Hydralazine HCl), 100 MG ORAL Q8HR Hydralazine Hcl* (Hydralazine Hcl*), 50 MG ORAL BID, (Reported) Isosorbide Dinitrate* (Isordil*), 20 MG ORAL DAILY, (Reported) Losartan Potassium* (Losartan Potassium*), 100 MG ORAL DAILY, (Reported) Tamsulosin HCl (Flomax), 0.4 MG ORAL BID Vitamin B Complex (Vitamin B Complex), 1 CAP ORAL DAILY, (Reported) Scheduled PRN Acetaminophen* (Acetaminophen 325MG Tablet*), 650 MG ORAL Q4H PRN for For Pain, (Reported) Magnesium Hydroxide* (Milk Of Magnesia*), 30 ML ORAL EVERY 6 HOURS PRN for stomach upset, (Reported) Minoxidil (Minoxidil), 2.5 MG ORAL Q4H PRN Patient History Healthcare decision maker SELF Resuscitation status Full Code Advanced Directive on File Yes Past Medical/Surgical History Past Medical/Surgical History: (1) CAD (coronary artery disease) (2) Hypertension Review of Systems All Other Systems: negative except mentioned in HPI Physical Exam General Appearance: WD/WN Lines, tubes and drains: peripheral HEENT: normocephalic, atraumatic Neck: non-tender, normal alignment Respiratory/Chest: chest wall non-tender, lungs clear Breasts: no masses Cardiovascular/Chest: normal peripheral pulses Abdomen: normal bowel sounds, non tender Genitourinary/Rectal: normal genital exam, normal rectal exam Extremities: normal range of motion Skin Exam: normal pigmentation Last 24 Hour Vital Signs Date Time Temp Pulse Resp B/P (MAP) Pulse Ox O2 Delivery O2 Flow Rate FiO2 12/21/18 16:00 98.5 94 20 158/78 (104) 98 12/21/18 14:28 175/76 12/21/18 14:28 175/76 12/21/18 12:09 82 18 99 Room Air 21 12/21/18 12:03 154/66 12/21/18 12:00 97.8 81 20 154/66 (95) 98 12/21/18 12:00 92 18 97 Room Air 12/21/18 10:42 87 172/73 (106) 12/21/18 09:41 92 200/103 12/21/18 09:40 200/103 12/21/18 09:40 200/103 12/21/18 09:40 92 200/103 12/21/18 09:39 200/103 12/21/18 09:00 Room Air 12/21/18 08:00 97.9 92 19 200/103 (135) 94 12/21/18 07:37 Room Air 21 12/21/18 07:36 Room Air 21 12/21/18 06:43 184/90 12/21/18 04:00 98.1 65 18 172/82 (112) 95 12/21/18 01:07 84 18 98 Room Air 21 12/21/18 00:58 84 18 96 Room Air 21 12/21/18 00:58 84 18 96 Room Air 12/21/18 00:00 97.4 67 18 140/73 (95) 99 12/20/18 22:00 Room Air 12/20/18 21:30 98.2 72 17 126/72 99 Room Air Intake and Output 12/20/18 12/21/18 19:00 07:00 Intake Total 50 ml Output Total 1200 ml Balance -1150 ml IV Total 50 ml Output Urine Total 1200 ml # Voids 1 Laboratory Tests Test 12/21/18 05:40 12/21/18 06:30 12/21/18 11:35 White Blood Count 4.8 K/UL (4.8-10.8) Red Blood Count 3.85 M/UL (4.70-6.10) L Hemoglobin 12.0 G/DL (14.2-18.0) L Hematocrit 37.4 % (42.0-52.0) L Mean Corpuscular Volume 97 FL (80-99) Mean Corpuscular Hemoglobin 31.2 PG (27.0-31.0) H Mean Corpuscular Hemoglobin Concent 32.2 G/DL (32.0-36.0) Red Cell Distribution Width 12.1 % (11.6-14.8) Platelet Count 110 K/UL (150-450) L Mean Platelet Volume 9.3 FL (6.5-10.1) Neutrophils (%) (Auto) 55.7 % (45.0-75.0) Lymphocytes (%) (Auto) 31.2 % (20.0-45.0) Monocytes (%) (Auto) 10.5 % (1.0-10.0) H Eosinophils (%) (Auto) 1.7 % (0.0-3.0) Basophils (%) (Auto) 0.9 % (0.0-2.0) Prothrombin Time 10.7 SEC (9.30-11.50) Prothromb Time International Ratio 1.0 (0.9-1.1) Activated Partial Thromboplast Time 29 SEC (23-33) Sodium Level 142 MMOL/L (136-145) Potassium Level 3.6 MMOL/L (3.5-5.1) Chloride Level 105 MMOL/L (98-107) Carbon Dioxide Level 31 MMOL/L (21-32) Anion Gap 6 mmol/L (5-15) Blood Urea Nitrogen 45 mg/dL (7-18) H Creatinine 1.6 MG/DL (0.55-1.30) H Estimat Glomerular Filtration Rate mL/min (>60) Glucose Level 105 MG/DL (74-106) Calcium Level 9.0 MG/DL (8.5-10.1) Alkaline Phosphatase 64 U/L (46-116) Triglycerides Level 89 MG/DL (30-150) Cholesterol Level 107 MG/DL (< 200) LDL Cholesterol 49 mg/dL (<100) HDL Cholesterol 45 MG/DL (40-60) Cholesterol/HDL Ratio 2.4 (3.3-4.4) L Prostate Specific Antigen 1.24 ng/mL (0.13-4.0) Hepatitis A IgM Antibody Pending Hepatitis B Surface Antigen Pending Hepatitis B Core IgM Antibody Pending Hepatitis C Antibody Pending HIV (1&2) Antibody Rapid Negative (NEGATIVE) Urine Color Red Urine Appearance Very cloudy Urine pH 7 (4.5-8.0) Urine Specific [place] 1.010 (1.005-1.035) Urine Protein 4+ (NEGATIVE) H Urine Glucose (UA) Negative (NEGATIVE) Urine Ketones Negative (NEGATIVE) Urine Blood 5+ (NEGATIVE) H Urine Nitrite Negative (NEGATIVE) Urine Bilirubin Negative (NEGATIVE) Urine Urobilinogen Normal MG/DL (0.0-1.0) Urine Leukocyte Esterase 1+ (NEGATIVE) H Urine RBC Tntc /HPF (0 - 0) H Urine WBC 2-4 /HPF (0 - 0) Urine Squamous Epithelial Cells Occasional /LPF Urine Bacteria Few /HPF (NONE) Height (Feet): 6 Height (Inches): 0.00 Weight (Pounds): 180 Medications Current Medications Medications (Trade) Dose Ordered Sig/Sallie Route PRN Reason Start Time Stop Time Status Last Admin Dose Admin Acetaminophen (Tylenol) 650 mg Q4H PRN ORAL fever 12/20/18 20:30 01/19/19 20:29 Albuterol/ Ipratropium (Albuterol/ Ipratropium) 3 ml Q6HRT HHN 12/21/18 01:00 12/26/18 00:59 12/21/18 12:00 Amlodipine Besylate (Norvasc) 10 mg DAILY ORAL 12/21/18 09:00 01/20/19 08:59 12/21/18 09:41 Atorvastatin Calcium (Lipitor) 20 mg BEDTIME ORAL 12/21/18 21:00 01/20/19 20:59 Bisacodyl (Dulcolax) 5 mg DAILY ORAL 12/21/18 09:00 01/20/19 08:59 12/21/18 09:41 Carvedilol (Coreg) 12.5 mg EVERY 12 HOURS ORAL 12/21/18 09:00 01/20/19 08:59 12/21/18 09:40 Ceftriaxone Sodium 1 gm/ Dextrose 55 ml @ 110 mls/hr Q24H IVPB 12/22/18 14:00 12/29/18 13:59 Clonidine HCl (Catapres Tab) 0.1 mg Q4H PRN ORAL bp over 165 syst 12/21/18 11:45 01/20/19 11:44 Clonidine HCl (Catapres Tab) 0.1 mg Q8HR ORAL 12/21/18 14:00 01/20/19 13:59 12/21/18 14:28 Dextrose (Dextrose 50%) 25 ml Q30M PRN IV Hypoglycemia 12/20/18 20:30 01/19/19 20:29 Dextrose (Dextrose 50%) 50 ml Q30M PRN IV Hypoglycemia 12/20/18 20:30 01/19/19 20:29 Diphenhydramine HCl (Benadryl) 25 mg Q6H PRN ORAL Itching/Pruritis 12/20/18 20:30 01/19/19 20:29 Docusate Sodium (Colace) 100 mg THREE TIMES A DAY ORAL 12/21/18 18:00 01/20/19 17:59 12/21/18 17:41 Heparin Sodium (Porcine) (Heparin 5000 units/ml) 5,000 units EVERY 12 HOURS SUBQ 12/21/18 09:00 01/19/19 21:46 12/21/18 09:38 Hydralazine HCl (Apresoline) 50 mg Q8HR ORAL 12/21/18 14:00 01/20/19 08:59 12/21/18 14:28 Hydromorphone HCl (Dilaudid) 2 mg Q6H PRN IVP Moderate Pain (Pain Scale 4-6) 12/21/18 18:00 12/28/18 17:59 Insulin Aspart (NovoLOG) BEFORE MEALS AND HS SUBQ 12/21/18 06:30 01/20/19 06:29 12/21/18 16:42 Ipratropium [place] (Atrovent) 500 mcg Q8H PRN HHN Bronchospasm 12/20/18 20:30 12/25/18 20:29 Isosorbide Mononitrate (Imdur) 60 mg DAILY ORAL 12/21/18 11:45 01/20/19 11:44 12/21/18 12:03 Lorazepam (Ativan 2mg/ml 1ml) 0.5 mg Q4H PRN IV For Anxiety 12/20/18 20:30 12/27/18 20:29 Losartan Potassium (Cozaar) 100 mg DAILY ORAL 12/21/18 09:00 01/20/19 08:59 12/21/18 09:39 Nitroglycerin (Ntg) 0.4 mg Q5M X 3 DOSES PRN SL Prn Chest Pain 12/20/18 20:30 01/19/19 20:29 Ondansetron HCl (Zofran) 4 mg Q6H PRN IVP Nausea & Vomiting 12/20/18 20:30 01/19/19 20:29 Pantoprazole (Protonix) 40 mg EVERY 12 HOURS ORAL 12/21/18 21:00 01/20/19 20:59 Sodium Chloride 1,000 ml @ 50 mls/hr Q20H IVLG 12/20/18 21:47 01/19/19 21:46 12/21/18 16:30 Tamsulosin HCl (Flomax) 0.4 mg BID ORAL 12/21/18 11:45 01/20/19 11:44 12/21/18 17:41 Zolpidem Tartrate (Ambien) 5 mg HSPRN PRN ORAL Insomnia 12/20/18 20:30 12/27/18 20:29 Assessment/Plan Problem List: (1) ATN (acute tubular necrosis) ICD Codes: N17.0 - Acute kidney failure with tubular necrosis SNOMED: 82136783 (2) Gross hematuria ICD Codes: R31.0 - Gross hematuria SNOMED: 898064127 (3) Hypertension ICD Codes: I10 - Essential (primary) hypertension SNOMED: 95339719 (4) CAD (coronary artery disease) ICD Codes: I25.10 - Atherosclerotic heart disease of [place] coronary artery without angina pectoris SNOMED: 97034166 (5) Hematuria ICD Codes: R31.9 - Hematuria, unspecified SNOMED: 27435857, 6069610 Assessment/Plan: iv fluids evaluation check electrolytes monitor BP prbc prn Adam Moyer MD Dec 21, 2018 20:14
[2018-12-21] MEDS ORDERED: Atorvastatin 80mg tab ORAL SCH (21:00)
[2018-12-21] MEDS: Atorvastatin 20mg tab ORAL SCH (22:05)
--- NOTE | 2018-12-21 23:00 | NUR ---
Provided night snack, patient aware of NPO status after midnight. Patient ate 100% snack.
[2018-12-22] VITALS (9 sets, daily range): BP systolic 91–153; BP diastolic 50–73
[2018-12-22] MEDS: HydrALAZINE 50mg tab ORAL SCH ×4 (00:16→22:26)
[2018-12-22] MEDS: Albuterol/Ipratropium 3ml neb HHN SCH ×4 (01:00→19:32)
[2018-12-22] MEDS: NovoLOG Insulin Flexpen SUBQ SCH ×4 (06:31→21:34)
[2018-12-22 06:47] LABS: BASOPHILS % (AUTO) 0.7 % (0.0-2.0); EOSINOPHILS % (AUTO) 0.1 % (0.0-3.0); HEMATOCRIT 30.3 % (42.0-52.0); HEMOGLOBIN 9.8 G/DL (14.2-18.0); LYMPHOCYTES % (AUTO) 17.1 % (20.0-45.0); MEAN CORPUSCULAR VOLUME 98 FL (80-99); MONOCYTES % (AUTO) 12.9 % (1.0-10.0); NEUTROPHILS % (AUTO) 69.2 % (45.0-75.0); PLATELET COUNT 103 K/UL (150-450); RED BLOOD COUNT 3.09 M/UL (4.70-6.10); RED CELL DISTRIBUTION WIDTH 12.4 % (11.6-14.8); WHITE BLOOD COUNT 7.7 K/UL (4.8-10.8)
[2018-12-22 06:58] LABS: % IRON SATURATION 20 % (15-50); IRON 38 ug/dL (50-175); TOTAL IRON BINDING CAPACITY 193 ug/dL (250-450)
[2018-12-22 07:01] LABS: CREATINE KINASE 265 U/L (26-308); GAMMA GLUTAMYL TRANSPEPTIDASE 26 U/L (5-85); PHOSPHORUS 3.8 MG/DL (2.5-4.9)
--- NOTE | 2018-12-22 07:25 | NUR ---
NURSE NOTES: Report received from Shelly GUTIERREZ, rounds made. Patient resting in semi-fowlers position in bed. No distress on RA. Alert, oriented x 2-3, calm. Denies need for pain medication at this time (no facial grimacing or moaning as well), will reassess and offer pain medication. Reoriented to place and date. IVF (NS @ 50 ml/hr) infusing without difficulty to RFA, dressing with dried blood surrounding catheter, offered to change dressing, patient refused. 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 Bed in lowest position, call light in reach, will continue to monitor.
[2018-12-22 07:30] LABS: ALANINE AMINOTRANSFERASE 25 U/L (12-78); ALBUMIN 2.8 G/DL (3.4-5.0); ALBUMIN/GLOBULIN RATIO 0.8 (1.0-2.7); ALKALINE PHOSPHATASE 54 U/L (46-116); ANION GAP 6 mmol/L (5-15); ASPARTATE AMINO TRANSFERASE 24 U/L (15-37); BILIRUBIN,TOTAL 0.4 MG/DL (0.2-1.0); BLOOD UREA NITROGEN 57 mg/dL (7-18); CALCIUM 8.2 MG/DL (8.5-10.1); CARBON DIOXIDE 29 MMOL/L (21-32); CHLORIDE 108 MMOL/L (98-107); CHOLESTEROL 97 MG/DL (< 200); CREATININE 2.3 MG/DL (0.55-1.30); FERRITIN 38 NG/ML (8-388); HDL CHOLESTEROL 43 MG/DL (40-60); POTASSIUM 4.1 MMOL/L (3.5-5.1); SODIUM 143 MMOL/L (136-145); TRIGLYCERIDES 52 MG/DL (30-150)
--- NOTE | 2018-12-22 09:09 | General Progress Note ---
Assessment/Plan Problem List: (1) CHF (congestive heart failure) ICD Codes: I50.9 - Heart failure, unspecified SNOMED: 97358310 (2) Weak ICD Codes: R53.1 - Weakness SNOMED: 31798674 (3) Bladder mass ICD Codes: N32.89 - Other specified disorders of bladder SNOMED: 533492896 (4) Diabetes ICD Codes: E11.9 - Type 2 diabetes mellitus without complications SNOMED: 66426772 (5) HTN (hypertension) ICD Codes: I10 - Essential (primary) hypertension SNOMED: 81870478 (6) Anemia ICD Codes: D64.9 - Anemia, unspecified SNOMED: 739004810 (7) ARF (acute renal failure) ICD Codes: N17.9 - Acute kidney failure, unspecified SNOMED: 05314599 (8) UTI (urinary tract infection) ICD Codes: N39.0 - Urinary tract infection, site not specified SNOMED: 68354336, 6859691 (9) Hypertension ICD Codes: I10 - Essential (primary) hypertension SNOMED: 73031350 (10) ATN (acute tubular necrosis) ICD Codes: N17.0 - Acute kidney failure with tubular necrosis SNOMED: 04381477 Status: stable, progressing Assessment/Plan: bp bs control abx uro heme f/u cbc bmp am Subjective Constitutional: Reports: weakness Allergies: Coded Allergies: No Known Allergies (Unverified , 12/20/18) All Systems: reviewed and negative except above Subjective sleepy clam in bed Objective Last 24 Hour Vital Signs Date Time Temp Pulse Resp B/P (MAP) Pulse Ox O2 Delivery O2 Flow Rate FiO2 12/22/18 06:53 65 17 99 Room Air 21 12/22/18 06:43 63 16 97 Room Air 12/22/18 06:32 148/60 12/22/18 06:00 97.2 69 18 148/60 (89) 97 12/22/18 01:40 Room Air 12/22/18 01:40 Room Air 12/22/18 00:16 118/73 12/22/18 00:15 118/73 12/22/18 00:00 98.6 97 18 118/73 (88) 99 12/21/18 22:04 97 131/77 12/21/18 21:00 Room Air 8/8/19 20:10 78 18 99 Room Air 21 12/21/18 20:00 98.8 97 20 131/77 (95) 98 12/21/18 20:00 81 18 95 Room Air 21 12/21/18 16:00 98.5 94 20 158/78 (104) 98 12/21/18 14:28 175/76 12/21/18 14:28 175/76 12/21/18 14:26 82 175/76 (109) 12/21/18 12:09 82 18 99 Room Air 21 12/21/18 12:03 154/66 12/21/18 12:00 97.8 81 20 154/66 (95) 98 12/21/18 12:00 92 18 97 Room Air 21 12/21/18 10:42 87 172/73 (106) 12/21/18 09:41 92 200/103 12/21/18 09:40 200/103 12/21/18 09:40 200/103 12/21/18 09:40 92 200/103 12/21/18 09:39 200/103 Intake and Output 12/21/18 12/22/18 19:00 07:00 Intake Total 970 ml 100 ml Output Total 600 ml 625 ml Balance 370 ml -525 ml Intake Oral 520 ml IV Total 450 ml 100 ml Output Urine Total 600 ml 625 ml Laboratory Tests 12/21/18 11:35: Urine Color Red, Urine Appearance Very cloudy, Urine pH 7, Urine Specific [place] 1.010, Urine Protein 4+H, Urine Glucose (UA) Negative, Urine Ketones Negative, Urine Blood 5+H, Urine Nitrite Negative, Urine Bilirubin Negative, Urine Urobilinogen Normal, Urine Leukocyte Esterase 1+H, Urine RBC TntcH, Urine WBC 2-4, Urine Squamous Epithelial Cells Occasional, Urine Bacteria Few 12/22/18 05:25: White Blood Count 7.7#, Red Blood Count 3.09L, Hemoglobin 9.8L, Hematocrit 30.3L , Mean Corpuscular Volume 98, Mean Corpuscular Hemoglobin 31.7H, Mean Corpuscular Hemoglobin Concent 32.4, Red Cell Distribution Width 12.4, Platelet Count 103L, Mean Platelet Volume 9.3, Neutrophils (%) (Auto) 69.2, Lymphocytes ( %) (Auto) 17.1L, Monocytes (%) (Auto) 12.9H, Eosinophils (%) (Auto) 0.1, Basophils (%) (Auto) 0.7, Sodium Level 143, Potassium Level 4.1, Chloride Level 108H, Carbon Dioxide Level 29, Anion Gap 6, Blood Urea Nitrogen 57H, Creatinine 2.3H, Estimat Glomerular Filtration Rate , Glucose Level 174H, Hemoglobin A1c 6.1H, Uric Acid 10.3H, Calcium Level 8.2L, Phosphorus Level 3.8, Magnesium Level 1.9, Iron Level 38L, Total Iron Binding Capacity 193L, Percent Iron Saturation 20, Unsaturated Iron Binding 155, Ferritin 38, Total Bilirubin 0.4, Gamma Glutamyl Transpeptidase 26, Aspartate Amino Transf (AST/SGOT) 24, Alanine Aminotransferase (ALT/SGPT) 25, Alkaline Phosphatase 54, Total Creatine Kinase 265, Troponin I 0.043, C-Reactive Protein, Quantitative 1.8H, Pro-B-Type Natriuretic Peptide 1081H, Total Protein 6.1L, Albumin 2.8L, Globulin 3.3, Albumin/Globulin Ratio 0.8L, Triglycerides Level 52, Cholesterol Level 97, LDL Cholesterol 45, HDL Cholesterol 43, Cholesterol/HDL Ratio 2.3L, Vitamin B12 Level 341, Folate 6.6L, Thyroid Stimulating Hormone (TSH) 2.555 Height (Feet): 6 Height (Inches): 0.00 Weight (Pounds): 180 General Appearance: lethargic EENT: normal ENT inspection Neck: normal alignment Cardiovascular: normal peripheral pulses, normal rate, regular rhythm Respiratory/Chest: chest wall non-tender, lungs clear, normal breath sounds Abdomen: normal bowel sounds, non tender, soft Extremities: normal inspection Edema: 1+ Arm (L), 1+ Arm (R), 1+ Leg (L), 1+ Leg (R), 1+ Pedal (L), 1+ Pedal ( R), 1+ Generalized Edema: trace edema Neurologic: motor weakness Skin: normal pigmentation, warm/dry Jamie Gray DO Dec 22, 2018 09:09
[2018-12-22] MEDS: Bisacodyl EC 5mg tab ORAL SCH ×2 (10:07→10:08)
[2018-12-22] MEDS: Docusate 100mg cap ORAL SCH ×3 (10:09→17:13)
[2018-12-22] MEDS: Carvedilol 12.5mg tab ORAL SCH ×2 (10:10→21:31)
[2018-12-22] MEDS: Tamsulosin 0.4mg cap ORAL SCH ×2 (10:10→17:13)
[2018-12-22] MEDS: Imdur 30mg tab ORAL SCH (10:10)
--- NOTE | 2018-12-22 10:10 | Nephrology Progress Note ---
Assessment/Plan Problem List: (1) Acute renal injury (2) Gross hematuria (3) Hypertension (4) Bladder mass (5) Diabetes Assessment ANGELA - HTN OOC - Hematuria- Likely UTI Dehydration DM CAD Plan Uro eval Urine culture- Flomax Rocephin Slow hydrate 2D echo Keep BP and BS in check per orders Multiple masslike lesions within the bladder. Further evaluation with cystoscopy is recommended to evaluate for possible neoplasm. Multiple parapelvic renal cysts Subjective ROS Limited/Unobtainable: No Constitutional: Reports: weakness Objective Objective Last 24 Hour Vital Signs Date Time Temp Pulse Resp B/P (MAP) Pulse Ox O2 Delivery O2 Flow Rate FiO2 12/22/18 06:53 65 17 99 Room Air 12/22/18 06:43 63 16 97 Room Air 12/22/18 06:32 148/60 12/22/18 06:00 97.2 69 18 148/60 (89) 97 12/22/18 01:40 Room Air 12/22/18 01:40 Room Air 12/22/18 00:16 118/73 12/22/18 00:15 118/73 12/22/18 00:00 98.6 97 18 118/73 (88) 99 12/21/18 22:04 97 131/77 12/21/18 21:00 Room Air 12/21/18 20:10 78 18 99 Room Air 12/21/18 20:00 98.8 97 20 131/77 (95) 98 12/21/18 20:00 81 18 95 Room Air 12/21/18 16:00 98.5 94 20 158/78 (104) 98 12/21/18 14:28 175/76 12/21/18 14:28 175/76 12/21/18 14:26 82 175/76 (109) 12/21/18 12:09 82 18 99 Room Air 12/21/18 12:03 154/66 12/21/18 12:00 97.8 81 20 154/66 (95) 98 12/21/18 12:00 92 18 97 Room Air 12/21/18 10:42 87 172/73 (106) Intake and Output 12/21/18 12/22/18 19:00 07:00 Intake Total 970 ml 100 ml Output Total 600 ml 625 ml Balance 370 ml -525 ml Intake Oral 520 ml IV Total 450 ml 100 ml Output Urine Total 600 ml 625 ml Laboratory Tests 12/21/18 11:35: Urine Color Red, Urine Appearance Very cloudy, Urine pH 7, Urine Specific [place] 1.010, Urine Protein 4+H, Urine Glucose (UA) Negative, Urine Ketones Negative, Urine Blood 5+H, Urine Nitrite Negative, Urine Bilirubin Negative, Urine Urobilinogen Normal, Urine Leukocyte Esterase 1+H, Urine RBC TntcH, Urine WBC 2-4, Urine Squamous Epithelial Cells Occasional, Urine Bacteria Few 12/22/18 05:25: White Blood Count 7.7#, Red Blood Count 3.09L, Hemoglobin 9.8L, Hematocrit 30.3L , Mean Corpuscular Volume 98, Mean Corpuscular Hemoglobin 31.7H, Mean Corpuscular Hemoglobin Concent 32.4, Red Cell Distribution Width 12.4, Platelet Count 103L, Mean Platelet Volume 9.3, Neutrophils (%) (Auto) 69.2, Lymphocytes ( %) (Auto) 17.1L, Monocytes (%) (Auto) 12.9H, Eosinophils (%) (Auto) 0.1, Basophils (%) (Auto) 0.7, Sodium Level 143, Potassium Level 4.1, Chloride Level 108H, Carbon Dioxide Level 29, Anion Gap 6, Blood Urea Nitrogen 57H, Creatinine 2.3H, Estimat Glomerular Filtration Rate , Glucose Level 174H, Hemoglobin A1c 6.1H, Uric Acid 10.3H, Calcium Level 8.2L, Phosphorus Level 3.8, Magnesium Level 1.9, Iron Level 38L, Total Iron Binding Capacity 193L, Percent Iron Saturation 20, Unsaturated Iron Binding 155, Ferritin 38, Total Bilirubin 0.4, Gamma Glutamyl Transpeptidase 26, Aspartate Amino Transf (AST/SGOT) 24, Alanine Aminotransferase (ALT/SGPT) 25, Alkaline Phosphatase 54, Total Creatine Kinase 265, Troponin I 0.043, C-Reactive Protein, Quantitative 1.8H, Pro-B-Type Natriuretic Peptide 1081H, Total Protein 6.1L, Albumin 2.8L, Globulin 3.3, Albumin/Globulin Ratio 0.8L, Triglycerides Level 52, Cholesterol Level 97, LDL Cholesterol 45, HDL Cholesterol 43, Cholesterol/HDL Ratio 2.3L, Vitamin B12 Level 341, Folate 6.6L, Thyroid Stimulating Hormone (TSH) 2.555 Height (Feet): 6 Height (Inches): 0.00 Weight (Pounds): 180 General Appearance: no apparent distress Cardiovascular: regular rhythm Respiratory/Chest: decreased breath sounds Abdomen: distended Russell Sofia MD Dec 22, 2018 10:10
[2018-12-22] MEDS: Heparin 5000 units/ml inj SUBQ SCH ×2 (10:11→21:33)
--- NOTE | 2018-12-22 11:45 | NUR ---
NURSE NOTES: Attempted to medicate patient with Dilaudid 2 mg IVP, noted IV site, leaking and surrounding skin mildly tight. IVF shut off and heplock clamped. Multiple attempts to restart, unable to obtain access. Dilaudid 2 mg, wasted with Gustavo GUTIERREZ and documented on note and Pyxis.
--- NOTE | 2018-12-22 14:24 | Diagnostic Imaging Report ---
Indication: Abdominal pain Technique: Multiplanar grayscale and color Doppler imaging of the abdomen. Comparison: None Findings: Limited exam due to patient body habitus and overlying bowel gas hepatic contour appears smooth. No focal hepatic mass lesion is appreciated sonographically. There is equivocal increased echogenicity of the liver. Main portal vein appears patent. No appreciable intrahepatic biliary ductal dilatation. Common bile duct measures 6 to 8 mm diameter, within normal limits for patient's age. Pancreas obscured by overlying bowel gas. Right kidney measures 10 cm in length. Left kidney measures 9 cm in length. Both kidneys demonstrate normal echogenicity. There is no hydronephrosis or sonographically appreciable renal stone. Some parapelvic cysts are noted bilaterally. Spleen is normal in size. No ascites is demonstrated. Imaged portions of the proximal aorta normal in caliber. The mid and distal aorta are not visualized. IMPRESSION: Limited exam due to body habitus and overlying bowel gas. Equivocal increased echogenicity of the liver which may suggest mild hepatic steatosis. Gallbladder not visualized. This may be technical or the gallbladder may be surgically absent. Correlate for history of prior cholecystectomy. Pancreas and portions of the aorta are not visualized due to overlying bowel gas. Parapelvic cysts noted in the kidneys. No evidence of hydronephrosis.
[2018-12-22] MEDS: cefTRIAXone 1 GM in D5W 55 ML IVPB SCH (14:40)
[2018-12-22] MEDS ORDERED: Tubing IV Secondary IV ONE (14:46)
--- NOTE | 2018-12-22 15:02 | Hematology/Onc Progress Note ---
Assessment/Plan Assessment/Plan Assessment and Recs: # Thrombocytopenia - potential causes multifactorial, evaluate liver and viral etiologies to begin, also could be related to underlying medications patient has received. --> Hep panel and HIV -> NEGATIVE --> US abd showed bladder masses--> CT a/p without contrast pending --> Peripheral smear ordered to evaluate for blasts /schistocytes --> abx and other meds have been reviewed --> ok for ppx if plt >50k w/ either heparin or lovenox --> Transfuse if Plt < 20k and fever, or if Plt < 10k without fever # Multiple bladder masses --> cysto recommended with Dr. Turner recs --> CT A/P without con ordered # Anemia of iron deficiency likely due to hematuria --> iv iron started x 5 days low ferritin --> may be due to hematuria --> have started on ivf and consider uro prn cysto # Acute renal injury --> cr has improved 2.3-->1.8->2.3 --> per renal recs --> volume expansion # HTN --> cards consulted # Hematuria # UTI (urinary tract infection) # Dehydration The timing of this note does not necessarily reflect the time of the patient was seen. GREATLY APPRECIATE CONSULTATION. Subjective Constitutional: Denies: no symptoms, chills, fever, malaise, weakness, other HEENT: Denies: no symptoms, eye pain, blurred vision, tearing, double vision, ear pain, ear discharge, nose pain, nose congestion, throat pain, throat swelling, mouth pain, mouth swelling, other Cardiovascular: Denies: no symptoms, chest pain, edema, irregular heart rate, lightheadedness, palpitations, syncope, other Genitourinary: Denies: no symptoms, burning, discharge, frequency, flank pain, hematuria, incontinence, pain, urgency, other Neurologic/Psychiatric: Denies: no symptoms, anxiety, depressed, emotional problems, headache, numbness, paresthesia, pre-existing deficit, seizure, tingling, tremors, weakness, other Endocrine: Denies: no symptoms, excessive sweating, flushing, intolerance to cold, intolerance to heat, increased hunger, increased thirst, increased urine, unexplained weight gain, unexplained weight loss, other Allergies: Coded Allergies: No Known Allergies (Unverified , 12/20/18) Subjective 8/9: no events noted, no bleeding, ct ordered for the us findings with multiple masses in bladder, cysto recommended Objective Objective Current Medications Medications (Trade) Dose Ordered Sig/Sallie Route PRN Reason Start Time Stop Time Status Last Admin Dose Admin Acetaminophen (Tylenol) 650 mg Q4H PRN ORAL fever 12/20/18 20:30 01/19/19 20:29 Albuterol/ Ipratropium (Albuterol/ Ipratropium) 3 ml Q6HRT HHN 12/21/18 01:00 12/26/18 00:59 12/22/18 12:18 Amlodipine Besylate (Norvasc) 10 mg DAILY ORAL 12/21/18 09:00 01/20/19 08:59 12/22/18 10:09 Atorvastatin Calcium (Lipitor) 20 mg BEDTIME ORAL 12/21/18 21:00 01/20/19 20:59 12/21/18 22:05 Bisacodyl (Dulcolax) 5 mg DAILY ORAL 12/21/18 09:00 01/20/19 08:59 12/22/18 10:08 Carvedilol (Coreg) 12.5 mg EVERY 12 HOURS ORAL 12/21/18 09:00 01/20/19 08:59 12/22/18 10:10 Ceftriaxone Sodium 1 gm/ Dextrose 55 ml @ 110 mls/hr Q24H IVPB 12/22/18 14:00 12/29/18 13:59 12/22/18 14:40 Clonidine HCl (Catapres Tab) 0.1 mg Q4H PRN ORAL bp over 165 syst 12/21/18 11:45 01/20/19 11:44 Clonidine HCl (Catapres Tab) 0.1 mg Q8H ORAL 12/22/18 08:00 01/21/19 07:59 12/22/18 10:10 Dextrose (Dextrose 50%) 25 ml Q30M PRN IV Hypoglycemia 12/20/18 20:30 01/19/19 20:29 Dextrose (Dextrose 50%) 50 ml Q30M PRN IV Hypoglycemia 12/20/18 20:30 01/19/19 20:29 Diphenhydramine HCl (Benadryl) 25 mg Q6H PRN ORAL Itching/Pruritis 12/20/18 20:30 01/19/19 20:29 Docusate Sodium (Colace) 100 mg THREE TIMES A DAY ORAL 12/21/18 18:00 01/20/19 17:59 12/22/18 14:40 Heparin Sodium (Porcine) (Heparin 5000 units/ml) 5,000 units EVERY 12 HOURS SUBQ 12/21/18 09:00 01/19/19 21:46 12/22/18 10:11 Hydralazine HCl (Apresoline) 50 mg Q8HR ORAL 12/21/18 14:00 01/20/19 08:59 12/22/18 06:32 Hydromorphone HCl (Dilaudid) 2 mg Q6H PRN IVP Moderate Pain (Pain Scale 4-6) 12/21/18 18:00 12/28/18 17:59 Insulin Aspart (NovoLOG) BEFORE MEALS AND HS SUBQ 12/21/18 06:30 01/20/19 06:29 12/22/18 11:31 Ipratropium Hilton (Atrovent) 500 mcg Q8H PRN HHN Bronchospasm 12/20/18 20:30 12/25/18 20:29 Isosorbide Mononitrate (Imdur) 60 mg DAILY ORAL 12/21/18 11:45 01/20/19 11:44 12/22/18 10:10 Lorazepam (Ativan 2mg/ml 1ml) 0.5 mg Q4H PRN IV For Anxiety 12/20/18 20:30 12/27/18 20:29 Nitroglycerin (Ntg) 0.4 mg Q5M X 3 DOSES PRN SL Prn Chest Pain 12/20/18 20:30 01/19/19 20:29 Ondansetron HCl (Zofran) 4 mg Q6H PRN IVP Nausea & Vomiting 12/20/18 20:30 01/19/19 20:29 Pantoprazole (Protonix) 40 mg EVERY 12 HOURS ORAL 12/21/18 21:00 01/20/19 20:59 12/22/18 10:08 Sodium Chloride 1,000 ml @ 75 mls/hr [id number] IVLG 12/22/18 11:00 01/19/19 10:59 12/22/18 11:10 Tamsulosin HCl (Flomax) 0.4 mg BID ORAL 12/21/18 11:45 01/20/19 11:44 12/22/18 10:10 Zolpidem Tartrate (Ambien) 5 mg HSPRN PRN ORAL Insomnia 12/20/18 20:30 12/27/18 20:29 Last 24 Hour Vital Signs Date Time Temp Pulse Resp B/P (MAP) Pulse Ox O2 Delivery O2 Flow Rate FiO2 12/22/18 14:40 69 91/50 (64) 12/22/18 14:00 91/50 12/22/18 13:00 Room Air 12/22/18 12:28 67 18 99 Room Air 21 12/22/18 12:18 65 16 98 Room Air 12/22/18 12:00 98.4 61 20 120/56 (77) 96 12/22/18 10:10 153/64 12/22/18 10:10 153/64 12/22/18 10:10 64 153/64 12/22/18 10:09 64 153/64 12/22/18 10:05 64 153/64 (93) 12/22/18 09:00 Room Air 12/22/18 08:00 98.3 80 18 100/64 (76) 97 12/22/18 06:53 65 17 99 Room Air 12/22/18 06:43 63 16 97 Room Air 12/22/18 06:32 148/60 12/22/18 06:00 97.2 69 18 148/60 (89) 97 12/22/18 01:40 Room Air 12/22/18 01:40 Room Air 12/22/18 00:16 118/73 12/22/18 00:15 118/73 12/22/18 00:00 98.6 97 18 118/73 (88) 99 12/21/18 22:04 97 131/77 12/21/18 21:00 Room Air 12/21/18 20:10 78 18 99 Room Air 12/21/18 20:00 98.8 97 20 131/77 (95) 98 12/21/18 20:00 81 18 95 Room Air 21 12/21/18 16:00 98.5 94 20 158/78 (104) 98 12/21/18 14:28 175/76 12/21/18 14:28 175/76 12/21/18 14:26 82 175/76 (109) 12/21/18 12:09 82 18 99 Room Air 21 12/21/18 12:03 154/66 12/21/18 12:00 97.8 81 20 154/66 (95) 98 12/21/18 12:00 92 18 97 Room Air 21 12/21/18 10:42 87 172/73 (106) 12/21/18 09:41 92 200/103 12/21/18 09:40 200/103 12/21/18 09:40 200/103 12/21/18 09:40 92 200/103 12/21/18 09:39 200/103 12/21/18 09:00 Room Air 12/21/18 08:00 97.9 92 19 200/103 (135) 94 12/21/18 07:37 Room Air 21 12/21/18 07:36 Room Air 21 12/21/18 06:43 184/90 12/21/18 04:00 98.1 65 18 172/82 (112) 95 12/21/18 01:07 84 18 98 Room Air 21 12/21/18 00:58 84 18 96 Room Air 21 12/21/18 00:58 84 18 96 Room Air 21 12/21/18 00:00 97.4 67 18 140/73 (95) 99 12/20/18 22:00 Room Air 12/20/18 21:30 98.2 72 17 126/72 99 Room Air 12/20/18 18:29 98.2 72 17 126/72 99 Room Air 12/20/18 17:35 98.1 66 18 130/69 (89) 98 Room Air Intake and Output 12/21/18 12/22/18 19:00 07:00 Intake Total 970 ml 100 ml Output Total 600 ml 625 ml Balance 370 ml -525 ml Intake Oral 520 ml IV Total 450 ml 100 ml Output Urine Total 600 ml 625 ml Labs Test 12/20/18 18:50 12/21/18 05:40 12/21/18 06:30 12/21/18 11:35 White Blood Count 5.9 K/UL (4.8-10.8) 4.8 K/UL (4.8-10.8) Red Blood Count 3.89 M/UL (4.70-6.10) 3.85 M/UL (4.70-6.10) Hemoglobin 12.3 G/DL (14.2-18.0) 12.0 G/DL (14.2-18.0) Hematocrit 36.3 % (42.0-52.0) 37.4 % (42.0-52.0) Mean Corpuscular Volume 93 FL (80-99) 97 FL (80-99) Mean Corpuscular Hemoglobin 31.7 PG (27.0-31.0) 31.2 PG (27.0-31.0) Mean Corpuscular Hemoglobin Concent 33.9 G/DL (32.0-36.0) 32.2 G/DL (32.0-36.0) Red Cell Distribution Width 11.8 % (11.6-14.8) 12.1 % (11.6-14.8) Platelet Count 118 K/UL (150-450) 110 K/UL (150-450) Mean Platelet Volume 10.2 FL (6.5-10.1) 9.3 FL (6.5-10.1) Neutrophils (%) (Auto) 54.8 % (45.0-75.0) 55.7 % (45.0-75.0) Lymphocytes (%) (Auto) 32.2 % (20.0-45.0) 31.2 % (20.0-45.0) Monocytes (%) (Auto) 10.0 % (1.0-10.0) 10.5 % (1.0-10.0) Eosinophils (%) (Auto) 1.5 % (0.0-3.0) 1.7 % (0.0-3.0) Basophils (%) (Auto) 1.5 % (0.0-2.0) 0.9 % (0.0-2.0) Urine Color Brown Red Urine Appearance Very cloudy Very cloudy Urine pH 5 (4.5-8.0) 7 (4.5-8.0) Urine Specific [place] 1.010 (1.005-1.035) 1.010 (1.005-1.035) Urine Protein 3+ (NEGATIVE) 4+ (NEGATIVE) Urine Glucose (UA) Negative (NEGATIVE) Negative (NEGATIVE) Urine Ketones Negative (NEGATIVE) Negative (NEGATIVE) Urine Blood 5+ (NEGATIVE) 5+ (NEGATIVE) Urine Nitrite Negative (NEGATIVE) Negative (NEGATIVE) Urine Bilirubin Negative (NEGATIVE) Negative (NEGATIVE) Urine Urobilinogen Normal MG/DL (0.0-1.0) Normal MG/DL (0.0-1.0) Urine Leukocyte Esterase 2+ (NEGATIVE) 1+ (NEGATIVE) Urine RBC Tntc /HPF (0 - 0) Tntc /HPF (0 - 0) Urine WBC 5-10 /HPF (0 - 0) 2-4 /HPF (0 - 0) Urine Squamous Epithelial Cells None /LPF (NONE/OCC) Occasional /LPF Urine Bacteria Few /HPF (NONE) Few /HPF (NONE) Sodium Level 141 MMOL/L (136-145) 142 MMOL/L (136-145) Potassium Level 4.4 MMOL/L (3.5-5.1) 3.6 MMOL/L (3.5-5.1) Chloride Level 105 MMOL/L (98-107) 105 MMOL/L (98-107) Carbon Dioxide Level 30 MMOL/L (21-32) 31 MMOL/L (21-32) Anion Gap 6 mmol/L (5-15) 6 mmol/L (5-15) Blood Urea Nitrogen 57 mg/dL (7-18) 45 mg/dL (7-18) Creatinine 1.9 MG/DL (0.55-1.30) 1.6 MG/DL (0.55-1.30) Estimat Glomerular Filtration Rate mL/min (>60) mL/min (>60) Glucose Level 123 MG/DL (74-106) 105 MG/DL (74-106) Hemoglobin A1c 5.7 % (4.3-6.0) Calcium Level 9.1 MG/DL (8.5-10.1) 9.0 MG/DL (8.5-10.1) Total Bilirubin 0.4 MG/DL (0.2-1.0) Aspartate Amino Transf (AST/SGOT) 34 U/L (15-37) Alanine Aminotransferase (ALT/SGPT) 36 U/L (12-78) Alkaline Phosphatase 84 U/L (46-116) 64 U/L (46-116) Total Creatine Kinase 200 U/L (26-308) Creatine Kinase MB 1.6 NG/ML (0.0-3.6) Creatine Kinase MB Relative Index 0.8 Troponin I 0.008 ng/mL (0.000-0.056) Total Protein 7.4 G/DL (6.4-8.2) Albumin 3.3 G/DL (3.4-5.0) Globulin 4.1 g/dL Albumin/Globulin Ratio 0.8 (1.0-2.7) Prothrombin Time 10.7 SEC (9.30-11.50) Prothromb Time International Ratio 1.0 (0.9-1.1) Activated Partial Thromboplast Time 29 SEC (23-33) Triglycerides Level 89 MG/DL (30-150) Cholesterol Level 107 MG/DL (< 200) LDL Cholesterol 49 mg/dL (<100) HDL Cholesterol 45 MG/DL (40-60) Cholesterol/HDL Ratio 2.4 (3.3-4.4) Prostate Specific Antigen 1.24 ng/mL (0.13-4.0) Hepatitis A IgM Antibody Negative (Negative) Hepatitis B Surface Antigen Negative (Negative) Hepatitis B Core IgM Antibody Negative (Negative) Hepatitis C Antibody <0.1 s/co ratio HIV (1&2) Antibody Rapid Negative (NEGATIVE) Test 12/22/18 05:25 White Blood Count 7.7 K/UL (4.8-10.8) Red Blood Count 3.09 M/UL (4.70-6.10) Hemoglobin 9.8 G/DL (14.2-18.0) Hematocrit 30.3 % (42.0-52.0) Mean Corpuscular Volume 98 FL (80-99) Mean Corpuscular Hemoglobin 31.7 PG (27.0-31.0) Mean Corpuscular Hemoglobin Concent 32.4 G/DL (32.0-36.0) Red Cell Distribution Width 12.4 % (11.6-14.8) Platelet Count 103 K/UL (150-450) Mean Platelet Volume 9.3 FL (6.5-10.1) Neutrophils (%) (Auto) 69.2 % (45.0-75.0) Lymphocytes (%) (Auto) 17.1 % (20.0-45.0) Monocytes (%) (Auto) 12.9 % (1.0-10.0) Eosinophils (%) (Auto) 0.1 % (0.0-3.0) Basophils (%) (Auto) 0.7 % (0.0-2.0) Sodium Level 143 MMOL/L (136-145) Potassium Level 4.1 MMOL/L (3.5-5.1) Chloride Level 108 MMOL/L (98-107) Carbon Dioxide Level 29 MMOL/L (21-32) Anion Gap 6 mmol/L (5-15) Blood Urea Nitrogen 57 mg/dL (7-18) Creatinine 2.3 MG/DL (0.55-1.30) Estimat Glomerular Filtration Rate mL/min (>60) Glucose Level 174 MG/DL (74-106) Hemoglobin A1c 6.1 % (4.3-6.0) Uric Acid 10.3 MG/DL (2.6-7.2) Calcium Level 8.2 MG/DL (8.5-10.1) Phosphorus Level 3.8 MG/DL (2.5-4.9) Magnesium Level 1.9 MG/DL (1.8-2.4) Iron Level 38 ug/dL (50-175) Total Iron Binding Capacity 193 ug/dL (250-450) Percent Iron Saturation 20 % (15-50) Unsaturated Iron Binding 155 ug/dL (112-346) Ferritin 38 NG/ML (8-388) Total Bilirubin 0.4 MG/DL (0.2-1.0) Gamma Glutamyl Transpeptidase 26 U/L (5-85) Aspartate Amino Transf (AST/SGOT) 24 U/L (15-37) Alanine Aminotransferase (ALT/SGPT) 25 U/L (12-78) Alkaline Phosphatase 54 U/L (46-116) Total Creatine Kinase 265 U/L (26-308) Troponin I 0.043 ng/mL (0.000-0.056) C-Reactive Protein, Quantitative 1.8 mg/dL (0.00-0.90) Pro-B-Type Natriuretic Peptide 1081 pg/mL (0-125) Total Protein 6.1 G/DL (6.4-8.2) Albumin 2.8 G/DL (3.4-5.0) Globulin 3.3 g/dL Albumin/Globulin Ratio 0.8 (1.0-2.7) Triglycerides Level 52 MG/DL (30-150) Cholesterol Level 97 MG/DL (< 200) LDL Cholesterol 45 mg/dL (<100) HDL Cholesterol 43 MG/DL (40-60) Cholesterol/HDL Ratio 2.3 (3.3-4.4) Vitamin B12 Level 341 PG/ML (193-986) Folate 6.6 NG/ML (8.6-58.9) Thyroid Stimulating Hormone (TSH) 2.555 uiU/mL (0.358-3.740) Height (Feet): 6 Height (Inches): 0.00 Weight (Pounds): 180 Objective Physical Exam: Vitals: reviewed General Appearance: NAD HEENT: normocephalic, atraumatic Neck: non-tender, normal alignment Respiratory/Chest: normal breath sounds bilaterally Cardiovascular/Chest: normal peripheral pulses, normal rate Abdomen: normal bowel sounds, soft, nontender Extremities: normal range of motion + clots noted in urinal Skin: no rash Marcelo Mcallister MD Dec 22, 2018 15:02
--- NOTE | 2018-12-22 15:21 | Cardiac Electrophysiology PN ---
Assessment/Plan Assessment/Plan 1. Accelerated hypertension with blood pressure of around 200. On clonidine 0.1 mg every 8 hours, Norvasc 10 mg daily, Lasix 40 mg p.o. bid, Coreg 25 mg bid, losartan 100 mg daily and well as Imdur 20 mg daily and p.r.n. hydralazine. 2. History of CAD. Echo Nl EF 3. Hyperlipidemia on Lipitor. 4. Renal failure. Further evaluation by Nephrology. 5. Hematuria. US. Multiple masslike lesions within the bladder. Further evaluation with cystoscopy is recommended to evaluate for possible neoplasm. STEPHANIE RN Subjective Subjective Still has hematuria. N at bedside. Objective Last 24 Hour Vital Signs Date Time Temp Pulse Resp B/P (MAP) Pulse Ox O2 Delivery O2 Flow Rate FiO2 12/22/18 14:40 69 91/50 (64) 12/22/18 14:00 91/50 12/22/18 13:00 Room Air 12/22/18 12:28 67 18 99 Room Air 12/22/18 12:18 65 16 98 Room Air 12/22/18 12:00 98.4 61 20 120/56 (77) 96 12/22/18 10:10 153/64 12/22/18 10:10 153/64 12/22/18 10:10 64 153/64 12/22/18 10:09 64 153/64 12/22/18 10:05 64 153/64 (93) 12/22/18 09:00 Room Air 12/22/18 08:00 98.3 80 18 100/64 (76) 97 12/22/18 06:53 65 17 99 Room Air 12/22/18 06:43 63 16 97 Room Air 12/22/18 06:32 148/60 12/22/18 06:00 97.2 69 18 148/60 (89) 97 12/22/18 01:40 Room Air 12/22/18 01:40 Room Air 12/22/18 00:16 118/73 12/22/18 00:15 118/73 12/22/18 00:00 98.6 97 18 118/73 (88) 99 12/21/18 22:04 97 131/77 12/21/18 21:00 Room Air 12/21/18 20:10 78 18 99 Room Air 12/21/18 20:00 98.8 97 20 131/77 (95) 98 12/21/18 20:00 81 18 95 Room Air 21 12/21/18 16:00 98.5 94 20 158/78 (104) 98 Intake and Output 12/21/18 12/22/18 19:00 07:00 Intake Total 970 ml 100 ml Output Total 600 ml 625 ml Balance 370 ml -525 ml Intake Oral 520 ml IV Total 450 ml 100 ml Output Urine Total 600 ml 625 ml Laboratory Tests Test 12/22/18 05:25 White Blood Count 7.7 K/UL (4.8-10.8) # Red Blood Count 3.09 M/UL (4.70-6.10) L Hemoglobin 9.8 G/DL (14.2-18.0) L Hematocrit 30.3 % (42.0-52.0) L Mean Corpuscular Volume 98 FL (80-99) Mean Corpuscular Hemoglobin 31.7 PG (27.0-31.0) H Mean Corpuscular Hemoglobin Concent 32.4 G/DL (32.0-36.0) Red Cell Distribution Width 12.4 % (11.6-14.8) Platelet Count 103 K/UL (150-450) L Mean Platelet Volume 9.3 FL (6.5-10.1) Neutrophils (%) (Auto) 69.2 % (45.0-75.0) Lymphocytes (%) (Auto) 17.1 % (20.0-45.0) L Monocytes (%) (Auto) 12.9 % (1.0-10.0) H Eosinophils (%) (Auto) 0.1 % (0.0-3.0) Basophils (%) (Auto) 0.7 % (0.0-2.0) Sodium Level 143 MMOL/L (136-145) Potassium Level 4.1 MMOL/L (3.5-5.1) Chloride Level 108 MMOL/L (98-107) H Carbon Dioxide Level 29 MMOL/L (21-32) Anion Gap 6 mmol/L (5-15) Blood Urea Nitrogen 57 mg/dL (7-18) H Creatinine 2.3 MG/DL (0.55-1.30) H Estimat Glomerular Filtration Rate mL/min (>60) Glucose Level 174 MG/DL (74-106) H Hemoglobin A1c 6.1 % (4.3-6.0) H Uric Acid 10.3 MG/DL (2.6-7.2) H Calcium Level 8.2 MG/DL (8.5-10.1) L Phosphorus Level 3.8 MG/DL (2.5-4.9) Magnesium Level 1.9 MG/DL (1.8-2.4) Iron Level 38 ug/dL (50-175) L Total Iron Binding Capacity 193 ug/dL (250-450) L Percent Iron Saturation 20 % (15-50) Unsaturated Iron Binding 155 ug/dL (112-346) Ferritin 38 NG/ML (8-388) Total Bilirubin 0.4 MG/DL (0.2-1.0) Gamma Glutamyl Transpeptidase 26 U/L (5-85) Aspartate Amino Transf (AST/SGOT) 24 U/L (15-37) Alanine Aminotransferase (ALT/SGPT) 25 U/L (12-78) Alkaline Phosphatase 54 U/L (46-116) Total Creatine Kinase 265 U/L (26-308) Troponin I 0.043 ng/mL (0.000-0.056) C-Reactive Protein, Quantitative 1.8 mg/dL (0.00-0.90) H Pro-B-Type Natriuretic Peptide 1081 pg/mL (0-125) H Total Protein 6.1 G/DL (6.4-8.2) L Albumin 2.8 G/DL (3.4-5.0) L Globulin 3.3 g/dL Albumin/Globulin Ratio 0.8 (1.0-2.7) L Triglycerides Level 52 MG/DL (30-150) Cholesterol Level 97 MG/DL (< 200) LDL Cholesterol 45 mg/dL (<100) HDL Cholesterol 43 MG/DL (40-60) Cholesterol/HDL Ratio 2.3 (3.3-4.4) L Vitamin B12 Level 341 PG/ML (193-986) Folate 6.6 NG/ML (8.6-58.9) L Thyroid Stimulating Hormone (TSH) 2.555 uiU/mL (0.358-3.740) Objective HEAD AND NECK: Showed no JVD. LUNGS: Clear. CARDIOVASCULAR: Regular S1 and S2 with no gallop or murmur. ABDOMEN: Soft. EXTREMITIES: A 1+ pitting edema. Kd Fish MD Dec 22, 2018 15:21
--- NOTE | 2018-12-22 15:59 | NUR ---
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 98.0 HR 66 RR 18 B/P 130/69 BUN 57 CR 1.9 IS::::::ADMITTED TO MED/SURG @ 2129 IS: IVF NS @75ML/HR [id number] IV RENAL CONSULT MED/SURG STATUS
--- NOTE | 2018-12-22 18:34 | Pulmonology Progress Note ---
Assessment/Plan Problems: (1) ATN (acute tubular necrosis) (2) Gross hematuria (3) Hypertension (4) CAD (coronary artery disease) (5) Hematuria Assessment/Plan iv hydration awaiting urology consult Dr. Turner texted yesterday prbc prn Subjective ROS Limited/Unobtainable: Yes Allergies: Coded Allergies: No Known Allergies (Unverified , 12/20/18) Objective Last 24 Hour Vital Signs Date Time Temp Pulse Resp B/P (MAP) Pulse Ox O2 Delivery O2 Flow Rate FiO2 12/22/18 17:03 67 123/65 (84) 12/22/18 16:00 98.9 78 20 141/56 (84) 94 12/22/18 16:00 123/65 12/22/18 14:40 69 91/50 (64) 12/22/18 14:00 91/50 12/22/18 13:00 Room Air 12/22/18 12:28 67 18 99 Room Air 12/22/18 12:18 65 16 98 Room Air 12/22/18 12:00 98.4 61 20 120/56 (77) 96 12/22/18 10:10 153/64 12/22/18 10:10 153/64 12/22/18 10:10 64 153/64 12/22/18 10:09 64 153/64 12/22/18 10:05 64 153/64 (93) 12/22/18 09:00 Room Air 12/22/18 08:00 98.3 80 18 100/64 (76) 97 12/22/18 06:53 65 17 99 Room Air 12/22/18 06:43 63 16 97 Room Air 12/22/18 06:32 148/60 12/22/18 06:00 97.2 69 18 148/60 (89) 97 12/22/18 01:40 Room Air 12/22/18 01:40 Room Air 12/22/18 00:16 118/73 12/22/18 00:15 118/73 12/22/18 00:00 98.6 97 18 118/73 (88) 99 12/21/18 22:04 97 131/77 12/21/18 21:00 Room Air 12/21/18 20:10 78 18 99 Room Air 21 12/21/18 20:00 98.8 97 20 131/77 (95) 98 12/21/18 20:00 81 18 95 Room Air 21 Intake and Output 12/21/18 12/22/18 19:00 07:00 Intake Total 970 ml 100 ml Output Total 600 ml 625 ml Balance 370 ml -525 ml Intake Oral 520 ml IV Total 450 ml 100 ml Output Urine Total 600 ml 625 ml General Appearance: WD/WN HEENT: normocephalic, atraumatic Respiratory/Chest: chest wall non-tender, lungs clear Cardiovascular: normal peripheral pulses, normal rate Abdomen: normal bowel sounds, soft, non tender, no organomegaly Genitourinary: normal external genitalia 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 Laboratory Tests 12/22/18 05:25: White Blood Count 7.7#, Red Blood Count 3.09L, Hemoglobin 9.8L, Hematocrit 30.3L , Mean Corpuscular Volume 98, Mean Corpuscular Hemoglobin 31.7H, Mean Corpuscular Hemoglobin Concent 32.4, Red Cell Distribution Width 12.4, Platelet Count 103L, Mean Platelet Volume 9.3, Neutrophils (%) (Auto) 69.2, Lymphocytes ( %) (Auto) 17.1L, Monocytes (%) (Auto) 12.9H, Eosinophils (%) (Auto) 0.1, Basophils (%) (Auto) 0.7, Sodium Level 143, Potassium Level 4.1, Chloride Level 108H, Carbon Dioxide Level 29, Anion Gap 6, Blood Urea Nitrogen 57H, Creatinine 2.3H, Estimat Glomerular Filtration Rate , Glucose Level 174H, Hemoglobin A1c 6.1H, Uric Acid 10.3H, Calcium Level 8.2L, Phosphorus Level 3.8, Magnesium Level 1.9, Iron Level 38L, Total Iron Binding Capacity 193L, Percent Iron Saturation 20, Unsaturated Iron Binding 155, Ferritin 38, Total Bilirubin 0.4, Gamma Glutamyl Transpeptidase 26, Aspartate Amino Transf (AST/SGOT) 24, Alanine Aminotransferase (ALT/SGPT) 25, Alkaline Phosphatase 54, Total Creatine Kinase 265, Troponin I 0.043, C-Reactive Protein, Quantitative 1.8H, Pro-B-Type Natriuretic Peptide 1081H, Total Protein 6.1L, Albumin 2.8L, Globulin 3.3, Albumin/Globulin Ratio 0.8L, Triglycerides Level 52, Cholesterol Level 97, LDL Cholesterol 45, HDL Cholesterol 43, Cholesterol/HDL Ratio 2.3L, Vitamin B12 Level 341, Folate 6.6L, Thyroid Stimulating Hormone (TSH) 2.555 Current Medications Medications (Trade) Dose Ordered Sig/Sallie Route PRN Reason Start Time Stop Time Status Last Admin Dose Admin Acetaminophen (Tylenol) 650 mg Q4H PRN ORAL fever 12/20/18 20:30 01/19/19 20:29 Albuterol/ Ipratropium (Albuterol/ Ipratropium) 3 ml Q6HRT HHN 12/21/18 01:00 12/26/18 00:59 12/22/18 12:18 Amlodipine Besylate (Norvasc) 10 mg DAILY ORAL 12/21/18 09:00 01/20/19 08:59 12/22/18 10:09 Atorvastatin Calcium (Lipitor) 20 mg BEDTIME ORAL 12/21/18 21:00 01/20/19 20:59 12/21/18 22:05 Bisacodyl (Dulcolax) 5 mg DAILY ORAL 12/21/18 09:00 01/20/19 08:59 12/22/18 10:08 Carvedilol (Coreg) 12.5 mg EVERY 12 HOURS ORAL 12/21/18 09:00 01/20/19 08:59 12/22/18 10:10 Ceftriaxone Sodium 1 gm/ Dextrose 55 ml @ 110 mls/hr Q24H IVPB 12/22/18 14:00 12/29/18 13:59 12/22/18 14:40 Clonidine HCl (Catapres Tab) 0.1 mg Q4H PRN ORAL bp over 165 syst 12/21/18 11:45 01/20/19 11:44 Clonidine HCl (Catapres Tab) 0.1 mg Q8H ORAL 12/22/18 08:00 01/21/19 07:59 12/22/18 10:10 Dextrose (Dextrose 50%) 25 ml Q30M PRN IV Hypoglycemia 12/20/18 20:30 01/19/19 20:29 Dextrose (Dextrose 50%) 50 ml Q30M PRN IV Hypoglycemia 12/20/18 20:30 01/19/19 20:29 Diphenhydramine HCl (Benadryl) 25 mg Q6H PRN ORAL Itching/Pruritis 12/20/18 20:30 9/6/19 20:29 Docusate Sodium (Colace) 100 mg THREE TIMES A DAY ORAL 12/21/18 18:00 01/20/19 17:59 12/22/18 17:13 Heparin Sodium (Porcine) (Heparin 5000 units/ml) 5,000 units EVERY 12 HOURS SUBQ 12/21/18 09:00 01/19/19 21:46 12/22/18 10:11 Hydralazine HCl (Apresoline) 50 mg Q8HR ORAL 12/21/18 14:00 01/20/19 08:59 12/22/18 06:32 Hydromorphone HCl (Dilaudid) 2 mg Q6H PRN IVP Moderate Pain (Pain Scale 4-6) 12/21/18 18:00 12/28/18 17:59 12/22/18 15:11 Insulin Aspart (NovoLOG) BEFORE MEALS AND HS SUBQ 12/21/18 06:30 01/20/19 06:29 12/22/18 17:07 Ipratropium [place] (Atrovent) 500 mcg Q8H PRN HHN Bronchospasm 12/20/18 20:30 12/25/18 20:29 Iron Sucrose 100 mg/Sodium Chloride 60 ml @ 240 mls/hr BEDTIME IV 12/22/18 21:00 12/26/18 21:14 Isosorbide Mononitrate (Imdur) 60 mg DAILY ORAL 12/21/18 11:45 01/20/19 11:44 12/22/18 10:10 Lorazepam (Ativan 2mg/ml 1ml) 0.5 mg Q4H PRN IV For Anxiety 12/20/18 20:30 12/27/18 20:29 Nitroglycerin (Ntg) 0.4 mg Q5M X 3 DOSES PRN SL Prn Chest Pain 12/20/18 20:30 01/19/19 20:29 Ondansetron HCl (Zofran) 4 mg Q6H PRN IVP Nausea & Vomiting 12/20/18 20:30 01/19/19 20:29 Pantoprazole (Protonix) 40 mg EVERY 12 HOURS ORAL 12/21/18 21:00 01/20/19 20:59 12/22/18 10:08 Sodium Chloride 1,000 ml @ 75 mls/hr [id number] IVLG 12/22/18 11:00 01/19/19 10:59 12/22/18 11:10 Tamsulosin HCl (Flomax) 0.4 mg BID ORAL 12/21/18 11:45 01/20/19 11:44 12/22/18 17:13 Zolpidem Tartrate (Ambien) 5 mg HSPRN PRN ORAL Insomnia 12/20/18 20:30 12/27/18 20:29 Adam Moyer MD Dec 22, 2018 18:34
--- NOTE | 2018-12-22 19:10 | NUR ---
NURSE NOTES: Report received from MATT David. No distress noted, patient alert. Sitting up in chair. Bed in low position, locked, side rails up x2, call light within reach. No complaints of pain at this time. IV on left hand, intact, patent. Will continue to monitor.
--- NOTE | 2018-12-22 19:10 | NUR ---
HAND-OFF: Report given to Shelly GUTIERREZ.
[2018-12-22] MEDS: Atorvastatin 20mg tab ORAL SCH (21:31)
[2018-12-22] MEDS: Iron Sucrose 100 MG in NS 55 ML IV SCH (22:25)
[2018-12-23] VITALS: BP_SYST 139; BP_SYST 160; BP_DIAS 67; BP_DIAS 71
[2018-12-23] MEDS: Albuterol/Ipratropium 3ml neb HHN SCH ×4 (01:00→20:02)
[2018-12-23 05:00] VITALS: BP 167/73
[2018-12-23] MEDS: HydrALAZINE 50mg tab ORAL SCH ×3 (05:34→22:05)
[2018-12-23] MEDS: NovoLOG Insulin Flexpen SUBQ SCH ×4 (05:40→21:01)
[2018-12-23 06:09] LABS: HEMATOCRIT 32.9 % (42.0-52.0); HEMOGLOBIN 10.5 G/DL (14.2-18.0); MEAN CORPUSCULAR VOLUME 99 FL (80-99); PLATELET COUNT 92 K/UL (150-450); RED BLOOD COUNT 3.32 M/UL (4.70-6.10); RED CELL DISTRIBUTION WIDTH 12.6 % (11.6-14.8)
[2018-12-23 06:51] LABS: ALANINE AMINOTRANSFERASE 25 U/L (12-78); ALBUMIN 2.9 G/DL (3.4-5.0); ALBUMIN/GLOBULIN RATIO 0.8 (1.0-2.7); ALKALINE PHOSPHATASE 56 U/L (46-116); ANION GAP 6 mmol/L (5-15); ASPARTATE AMINO TRANSFERASE 30 U/L (15-37); BILIRUBIN,TOTAL 0.4 MG/DL (0.2-1.0); CALCIUM 8.1 MG/DL (8.5-10.1); CARBON DIOXIDE 29 MMOL/L (21-32); CHLORIDE 108 MMOL/L (98-107); PHOSPHORUS 3.1 MG/DL (2.5-4.9); POTASSIUM 4.1 MMOL/L (3.5-5.1); SODIUM 143 MMOL/L (136-145)
--- NOTE | 2018-12-23 07:25 | NUR ---
HAND-OFF: Report given to MATT Donahue. Noted patient was eating breakfast. Attempted to call radiology regarding this morning CT, no answer. Passed onto AM shift RN.
--- NOTE | 2018-12-23 07:27 | Pulmonology Progress Note ---
Assessment/Plan Problems: (1) ATN (acute tubular necrosis) (2) Gross hematuria (3) Hypertension (4) CAD (coronary artery disease) (5) Hematuria Assessment/Plan renal function worsening iv hydration awaiting urology consult Dr. Turner texted yesterday prbc prn Subjective ROS Limited/Unobtainable: No Constitutional: Reports: no symptoms HEENT: Repors: no symptoms Respiratory: Reports: no symptoms Allergies: Coded Allergies: No Known Allergies (Unverified , 12/20/18) Objective Last 24 Hour Vital Signs Date Time Temp Pulse Resp B/P (MAP) Pulse Ox O2 Delivery O2 Flow Rate FiO2 12/23/18 05:34 167/73 12/23/18 05:00 98.3 72 20 167/73 (104) 98 12/23/18 01:25 Room Air 21 12/23/18 01:24 Room Air 21 12/23/18 00:19 160/67 12/23/18 00:00 97.8 71 17 160/67 (98) 96 12/22/18 22:26 140/68 12/22/18 21:31 65 143/65 12/22/18 21:00 97.8 65 18 143/65 (91) 94 12/22/18 21:00 Room Air 12/22/18 19:33 60 18 99 Room Air 12/22/18 19:23 56 18 96 Room Air 12/22/18 17:03 67 123/65 (84) 12/22/18 16:00 98.9 78 20 141/56 (84) 94 12/22/18 16:00 123/65 12/22/18 14:40 69 91/50 (64) 12/22/18 14:00 91/50 12/22/18 13:00 Room Air 12/22/18 12:28 67 18 99 Room Air 12/22/18 12:18 65 16 98 Room Air 12/22/18 12:00 98.4 61 20 120/56 (77) 96 12/22/18 10:10 153/64 12/22/18 10:10 153/64 12/22/18 10:10 64 153/64 12/22/18 10:09 64 153/64 12/22/18 10:05 64 153/64 (93) 12/22/18 09:00 Room Air 12/22/18 08:00 98.3 80 18 100/64 (76) 97 Intake and Output 12/22/18 12/23/18 19:00 07:00 Intake Total 925 ml 1350 ml Output Total 1600 ml Balance 925 ml -250 ml Intake Oral 400 ml 600 ml IV Total 525 ml 750 ml Output Urine Total 1600 ml # Voids 1 5 # Bowel Movements 1 General Appearance: WD/WN HEENT: normocephalic, atraumatic, anicteric Respiratory/Chest: chest wall non-tender, lungs clear Cardiovascular: normal peripheral pulses, normal rate Abdomen: normal bowel sounds, soft, non tender Genitourinary: normal external genitalia Skin: no rash, no lesions Laboratory Tests 12/23/18 05:35: White Blood Count 6.0, Red Blood Count 3.32L, Hemoglobin 10.5L, Hematocrit 32.9L , Mean Corpuscular Volume 99, Mean Corpuscular Hemoglobin 31.5H, Mean Corpuscular Hemoglobin Concent 31.8L, Red Cell Distribution Width 12.6, Platelet Count 92L, Mean Platelet Volume 9.2, Neutrophils (%) (Auto) , Lymphocytes (%) (Auto) , Monocytes (%) (Auto) , Eosinophils (%) (Auto) , Basophils (%) (Auto) , Neutrophils % (Manual) [Pending], Lymphocytes % (Manual) [Pending], Platelet Estimate [Pending], Platelet Morphology [Pending], Sodium Level [Pending], Potassium Level [Pending], Chloride Level [Pending], Carbon Dioxide Level [Pending], Blood Urea Nitrogen [Pending], Creatinine [Pending], Estimat Glomerular Filtration Rate [Pending], Glucose Level [Pending], Uric Acid [Pending], Calcium Level [Pending], Phosphorus Level [Pending], Magnesium Level [Pending], Total Bilirubin [Pending], Aspartate Amino Transf (AST/SGOT) [ Pending], Alanine Aminotransferase (ALT/SGPT) [Pending], Alkaline Phosphatase [ Pending], C-Reactive Protein, Quantitative [Pending], Total Protein [Pending], Albumin [Pending], Globulin [Pending] Current Medications Medications (Trade) Dose Ordered Sig/Sallie Route PRN Reason Start Time Stop Time Status Last Admin Dose Admin Acetaminophen (Tylenol) 650 mg Q4H PRN ORAL fever 12/20/18 20:30 01/19/19 20:29 Albuterol/ Ipratropium (Albuterol/ Ipratropium) 3 ml Q6HRT HHN 12/21/18 01:00 12/26/18 00:59 12/22/18 19:32 Amlodipine Besylate (Norvasc) 10 mg DAILY ORAL 12/21/18 09:00 01/20/19 08:59 12/22/18 10:09 Atorvastatin Calcium (Lipitor) 20 mg BEDTIME ORAL 12/21/18 21:00 01/20/19 20:59 12/22/18 21:31 Bisacodyl (Dulcolax) 5 mg DAILY ORAL 12/21/18 09:00 01/20/19 08:59 12/22/18 10:08 Carvedilol (Coreg) 12.5 mg EVERY 12 HOURS ORAL 12/21/18 09:00 01/20/19 08:59 12/22/18 21:31 Ceftriaxone Sodium 1 gm/ Dextrose 55 ml @ 110 mls/hr Q24H IVPB 12/22/18 14:00 12/29/18 13:59 12/22/18 14:40 Clonidine HCl (Catapres Tab) 0.1 mg Q4H PRN ORAL bp over 165 syst 12/21/18 11:45 01/20/19 11:44 Clonidine HCl (Catapres Tab) 0.1 mg Q8H ORAL 12/22/18 08:00 01/21/19 07:59 12/23/18 00:19 Dextrose (Dextrose 50%) 25 ml Q30M PRN IV Hypoglycemia 12/20/18 20:30 01/19/19 20:29 Dextrose (Dextrose 50%) 50 ml Q30M PRN IV Hypoglycemia 12/20/18 20:30 01/19/19 20:29 Diphenhydramine HCl (Benadryl) 25 mg Q6H PRN ORAL Itching/Pruritis 12/20/18 20:30 01/19/19 20:29 Docusate Sodium (Colace) 100 mg THREE TIMES A DAY ORAL 12/21/18 18:00 01/20/19 17:59 12/22/18 17:13 Heparin Sodium (Porcine) (Heparin 5000 units/ml) 5,000 units EVERY 12 HOURS SUBQ 12/21/18 09:00 01/19/19 21:46 12/22/18 21:33 Hydralazine HCl (Apresoline) 50 mg Q8HR ORAL 12/21/18 14:00 01/20/19 08:59 12/23/18 05:34 Hydromorphone HCl (Dilaudid) 2 mg Q6H PRN IVP Moderate Pain (Pain Scale 4-6) 12/21/18 18:00 12/28/18 17:59 12/22/18 15:11 Insulin Aspart (NovoLOG) BEFORE MEALS AND HS SUBQ 12/21/18 06:30 01/20/19 06:29 12/23/18 05:40 Ipratropium [place] (Atrovent) 500 mcg Q8H PRN HHN Bronchospasm 12/20/18 20:30 12/25/18 20:29 Iron Sucrose 100 mg/Sodium Chloride 60 ml @ 240 mls/hr BEDTIME IV 12/22/18 21:00 12/26/18 21:14 12/22/18 22:25 Isosorbide Mononitrate (Imdur) 60 mg DAILY ORAL 12/21/18 11:45 01/20/19 11:44 12/22/18 10:10 Lorazepam (Ativan 2mg/ml 1ml) 0.5 mg Q4H PRN IV For Anxiety 12/20/18 20:30 12/27/18 20:29 Nitroglycerin (Ntg) 0.4 mg Q5M X 3 DOSES PRN SL Prn Chest Pain 12/20/18 20:30 01/19/19 20:29 Ondansetron HCl (Zofran) 4 mg Q6H PRN IVP Nausea & Vomiting 12/20/18 20:30 01/19/19 20:29 Pantoprazole (Protonix) 40 mg EVERY 12 HOURS ORAL 12/21/18 21:00 01/20/19 20:59 12/22/18 10:08 Sodium Chloride 1,000 ml @ 75 mls/hr [id number] IVLG 12/22/18 11:00 01/19/19 10:59 12/23/18 04:15 Tamsulosin HCl (Flomax) 0.4 mg BID ORAL 12/21/18 11:45 01/20/19 11:44 12/22/18 17:13 Zolpidem Tartrate (Ambien) 5 mg HSPRN PRN ORAL Insomnia 12/20/18 20:30 12/27/18 20:29 Adam Moyer MD Dec 23, 2018 07:27
[2018-12-23 07:37] LABS: BLOOD UREA NITROGEN 51 mg/dL (7-18)
[2018-12-23 08:00] VITALS: BP 132/68
[2018-12-23] MEDS: Imdur 30mg tab ORAL SCH (08:33)
[2018-12-23] MEDS: Tamsulosin 0.4mg cap ORAL SCH ×2 (08:33→17:54)
[2018-12-23] MEDS: Carvedilol 12.5mg tab ORAL SCH ×2 (08:34→20:53)
[2018-12-23] MEDS: Docusate 100mg cap ORAL SCH ×3 (08:34→17:54)
[2018-12-23] MEDS: Bisacodyl EC 5mg tab ORAL SCH (08:34)
[2018-12-23] MEDS: Heparin 5000 units/ml inj SUBQ SCH ×2 (08:35→20:55)
--- NOTE | 2018-12-23 09:06 | General Progress Note ---
Assessment/Plan Problem List: (1) CHF (congestive heart failure) ICD Codes: I50.9 - Heart failure, unspecified SNOMED: 77721294 (2) Weak ICD Codes: R53.1 - Weakness SNOMED: 89386507 (3) Bladder mass ICD Codes: N32.89 - Other specified disorders of bladder SNOMED: 033708892 (4) Diabetes ICD Codes: E11.9 - Type 2 diabetes mellitus without complications SNOMED: 39071397 (5) HTN (hypertension) ICD Codes: I10 - Essential (primary) hypertension SNOMED: 47396372 (6) Anemia ICD Codes: D64.9 - Anemia, unspecified SNOMED: 087597992 (7) ARF (acute renal failure) ICD Codes: N17.9 - Acute kidney failure, unspecified SNOMED: 19741897 (8) UTI (urinary tract infection) ICD Codes: N39.0 - Urinary tract infection, site not specified SNOMED: 08055835, 8711260 (9) Hypertension ICD Codes: I10 - Essential (primary) hypertension SNOMED: 37789635 (10) ATN (acute tubular necrosis) ICD Codes: N17.0 - Acute kidney failure with tubular necrosis SNOMED: 11234344 Status: stable, progressing Assessment/Plan: bp bs control abx uro heme f/u cbc bmp am Subjective Constitutional: Reports: weakness Allergies: Coded Allergies: No Known Allergies (Unverified , 12/20/18) All Systems: reviewed and negative except above Subjective sitting on bed , c/o sl bloody urine Objective Last 24 Hour Vital Signs Date Time Temp Pulse Resp B/P (MAP) Pulse Ox O2 Delivery O2 Flow Rate FiO2 12/23/18 08:35 132/68 12/23/18 08:34 73 132/68 12/23/18 08:34 73 132/68 12/23/18 08:33 132/68 12/23/18 08:00 98.8 73 18 132/68 (89) 94 12/23/18 07:20 Room Air 12/23/18 07:20 Room Air 12/23/18 05:34 167/73 12/23/18 05:00 98.3 72 20 167/73 (104) 98 12/23/18 01:25 Room Air 21 12/23/18 01:24 Room Air 21 12/23/18 00:19 160/67 12/23/18 00:00 97.8 71 17 160/67 (98) 96 12/22/18 22:26 140/68 12/22/18 21:31 65 143/65 12/22/18 21:00 97.8 65 18 143/65 (91) 94 12/22/18 21:00 Room Air 12/22/18 19:33 60 18 99 Room Air 21 12/22/18 19:23 56 18 96 Room Air 21 12/22/18 17:03 67 123/65 (84) 12/22/18 16:00 98.9 78 20 141/56 (84) 94 12/22/18 16:00 123/65 12/22/18 14:40 69 91/50 (64) 12/22/18 14:00 91/50 12/22/18 13:00 Room Air 12/22/18 12:28 67 18 99 Room Air 21 12/22/18 12:18 65 16 98 Room Air 21 12/22/18 12:00 98.4 61 20 120/56 (77) 96 12/22/18 10:10 153/64 12/22/18 10:10 153/64 12/22/18 10:10 64 153/64 12/22/18 10:09 64 153/64 12/22/18 10:05 64 153/64 (93) Intake and Output 12/22/18 12/23/18 19:00 07:00 Intake Total 925 ml 1425 ml Output Total 1600 ml Balance 925 ml -175 ml Intake Oral 400 ml 600 ml IV Total 525 ml 825 ml Output Urine Total 1600 ml # Voids 1 5 # Bowel Movements 1 Laboratory Tests 12/23/18 05:35: White Blood Count 6.0, Red Blood Count 3.32L, Hemoglobin 10.5L, Hematocrit 32.9L , Mean Corpuscular Volume 99, Mean Corpuscular Hemoglobin 31.5H, Mean Corpuscular Hemoglobin Concent 31.8L, Red Cell Distribution Width 12.6, Platelet Count 92L, Mean Platelet Volume 9.2, Neutrophils (%) (Auto) , Lymphocytes (%) (Auto) , Monocytes (%) (Auto) , Eosinophils (%) (Auto) , Basophils (%) (Auto) , Differential Total Cells Counted 100, Neutrophils % ( Manual) 69, Lymphocytes % (Manual) 22, Monocytes % (Manual) 8, Eosinophils % ( Manual) 1, Basophils % (Manual) 0, Band Neutrophils 0, Platelet Estimate DecreasedL, Platelet Morphology Normal, Macrocytosis 1+, Sodium Level 143, Potassium Level 4.1, Chloride Level 108H, Carbon Dioxide Level 29, Anion Gap 6, Blood Urea Nitrogen 51H, Creatinine 2.0H, Estimat Glomerular Filtration Rate , Glucose Level 134H, Uric Acid 9.9H, Calcium Level 8.1L, Phosphorus Level 3.1, Magnesium Level 1.8, Total Bilirubin 0.4, Aspartate Amino Transf (AST/SGOT) 30, Alanine Aminotransferase (ALT/SGPT) 25, Alkaline Phosphatase 56, C-Reactive Protein, Quantitative 1.6H, Total Protein 6.4, Albumin 2.9L, Globulin 3.5, Albumin/Globulin Ratio 0.8L Height (Feet): 6 Height (Inches): 0.00 Weight (Pounds): 180 General Appearance: lethargic EENT: normal ENT inspection Neck: normal alignment Cardiovascular: normal peripheral pulses, normal rate, regular rhythm Respiratory/Chest: chest wall non-tender, lungs clear, normal breath sounds Abdomen: normal bowel sounds, non tender, soft Extremities: normal inspection Edema: 1+ Arm (L), 1+ Arm (R), 1+ Leg (L), 1+ Leg (R), 1+ Pedal (L), 1+ Pedal ( R), 1+ Generalized Edema: trace edema Neurologic: motor weakness Skin: normal pigmentation, warm/dry Jamie Gray DO Dec 23, 2018 09:05
--- NOTE | 2018-12-23 09:28 | NUR ---
CHARGE NURSE NOTE: Spoke with Dr. Turner, reminded him that he has a urology consult. He said that is covering him. was called, message left.
--- NOTE | 2018-12-23 09:28 | Diagnostic Imaging Report ---
Indication: Abdominal pain Technique: Continuous helical transaxial imaging of the abdomen and pelvis was obtained from the lung bases to the pubic symphysis. No intravenous contrast was administered. Coronal 2-D reformats were also obtained. Automatic Exposure Control was utilized. Total Dose length Product (DLP): 1167.[address] Dose Index Volume (CTDIvol): 19.28 mGy Comparison: none Findings: The lung bases are clear. There are innumerable calcifications present within the liver consistent with old granulomatous disease. Trace pericardial fluid noted. There is a hiatal hernia. There is nodularity of both adrenal glands with both adrenal glands retaining their adreniform shape. Consider follow-up evaluation with nonemergent MRI. Gallstones are present within a contracted gallbladder. There are diverticula demonstrated throughout the colon without definite evidence of diverticulitis. There is no evidence of appendicitis. There is no ascites. There is a small umbilical hernia containing fat. The urinary bladder is abnormal. Although no contrast was given there is the suggestion of nodular masslike lesions within the bladder in multiple locations. Cystoscopy is recommended for further evaluation of this. There is no lymphadenopathy identified. Moderate aortoiliac calcifications are present. The study is limited due to the nonadministration of IV and oral contrast. Bilateral inguinal hernias containing fat are demonstrated slightly larger on the left compared to the right. There is a prominent lipoma in the right gluteal region measuring about 9 x 4 cm on transaxial images. A smaller left gluteal lipoma noted measuring 4 x 1.8 cm. Both of these are within the gluteus medius/minimus region. There is narrowing of intervertebral discs and accompanying endplate osteophyte formation. Hypertrophied facet joints also demonstrated. IMPRESSION: Abnormal urinary bladder with multiple nodular mass lesions. Neoplasm suspected. Further evaluation recommended with cystoscopy. Diverticulosis of the colon. No definite diverticulitis Gallstones Old granulomatous disease Trace pericardial effusion Hiatal hernia Atherosclerotic vascular disease Degenerative changes of the spine. Gluteal lipomas as described above. Bilateral adrenal gland adenomata versus hyperplasia. Consider nonemergent follow-up MRI. The CT scanner at [facility] is accredited by the [employer] and the scans are performed using dose optimization techniques as appropriate to a performed exam including Automatic Exposure control.
--- NOTE | 2018-12-23 09:44 | Nephrology Progress Note ---
Assessment/Plan Problem List: (1) Acute renal injury (2) Gross hematuria (3) Hypertension (4) Bladder mass (5) Diabetes Assessment ANGELA - HTN OOC - Hematuria- Likely UTI Dehydration DM CAD Plan Uro eval still pending Urine culture- Flomax Rocephin Slow hydrate 2D echo Keep BP and BS in check per orders Multiple masslike lesions within the bladder. Further evaluation with cystoscopy is recommended to evaluate for possible neoplasm. Multiple parapelvic renal cysts Subjective ROS Limited/Unobtainable: No Constitutional: Reports: malaise Objective Objective Last 24 Hour Vital Signs Date Time Temp Pulse Resp B/P (MAP) Pulse Ox O2 Delivery O2 Flow Rate FiO2 12/23/18 09:25 Room Air 12/23/18 08:35 132/68 12/23/18 08:34 73 132/68 12/23/18 08:34 73 132/68 12/23/18 08:33 132/68 12/23/18 08:00 98.8 73 18 132/68 (89) 94 12/23/18 07:20 Room Air 12/23/18 07:20 Room Air 12/23/18 05:34 167/73 12/23/18 05:00 98.3 72 20 167/73 (104) 98 12/23/18 01:25 Room Air 21 12/23/18 01:24 Room Air 21 12/23/18 00:19 160/67 12/23/18 00:00 97.8 71 17 160/67 (98) 96 12/22/18 22:26 140/68 12/22/18 21:31 65 143/65 12/22/18 21:00 97.8 65 18 143/65 (91) 94 12/22/18 21:00 Room Air 12/22/18 19:33 60 18 99 Room Air 12/22/18 19:23 56 18 96 Room Air 12/22/18 17:03 67 123/65 (84) 12/22/18 16:00 98.9 78 20 141/56 (84) 94 12/22/18 16:00 123/65 12/22/18 14:40 69 91/50 (64) 12/22/18 14:00 91/50 12/22/18 13:00 Room Air 12/22/18 12:28 67 18 99 Room Air 12/22/18 12:18 65 16 98 Room Air 21 12/22/18 12:00 98.4 61 20 120/56 (77) 96 12/22/18 10:10 153/64 12/22/18 10:10 153/64 12/22/18 10:10 64 153/64 12/22/18 10:09 64 153/64 12/22/18 10:05 64 153/64 (93) Intake and Output 12/22/18 12/23/18 19:00 07:00 Intake Total 925 ml 1425 ml Output Total 1600 ml Balance 925 ml -175 ml Intake Oral 400 ml 600 ml IV Total 525 ml 825 ml Output Urine Total 1600 ml # Voids 1 5 # Bowel Movements 1 Laboratory Tests 12/23/18 05:35: White Blood Count 6.0, Red Blood Count 3.32L, Hemoglobin 10.5L, Hematocrit 32.9L , Mean Corpuscular Volume 99, Mean Corpuscular Hemoglobin 31.5H, Mean Corpuscular Hemoglobin Concent 31.8L, Red Cell Distribution Width 12.6, Platelet Count 92L, Mean Platelet Volume 9.2, Neutrophils (%) (Auto) , Lymphocytes (%) (Auto) , Monocytes (%) (Auto) , Eosinophils (%) (Auto) , Basophils (%) (Auto) , Differential Total Cells Counted 100, Neutrophils % ( Manual) 69, Lymphocytes % (Manual) 22, Monocytes % (Manual) 8, Eosinophils % ( Manual) 1, Basophils % (Manual) 0, Band Neutrophils 0, Platelet Estimate DecreasedL, Platelet Morphology Normal, Macrocytosis 1+, Sodium Level 143, Potassium Level 4.1, Chloride Level 108H, Carbon Dioxide Level 29, Anion Gap 6, Blood Urea Nitrogen 51H, Creatinine 2.0H, Estimat Glomerular Filtration Rate , Glucose Level 134H, Uric Acid 9.9H, Calcium Level 8.1L, Phosphorus Level 3.1, Magnesium Level 1.8, Total Bilirubin 0.4, Aspartate Amino Transf (AST/SGOT) 30, Alanine Aminotransferase (ALT/SGPT) 25, Alkaline Phosphatase 56, C-Reactive Protein, Quantitative 1.6H, Total Protein 6.4, Albumin 2.9L, Globulin 3.5, Albumin/Globulin Ratio 0.8L Height (Feet): 6 Height (Inches): 0.00 Weight (Pounds): 180 General Appearance: no apparent distress Respiratory/Chest: decreased breath sounds Abdomen: soft Objective no change Russell Sofia MD Dec 23, 2018 09:44
[2018-12-23 12:00] VITALS: BP 144/66
--- NOTE | 2018-12-23 12:22 | NUR ---
PT NOTE: Pt refused to participate in PT treatment session due to feeling fatigued. Will attempt PT treatment session at a later time. Left nurse call light within easy reach.
[2018-12-23] MEDS ORDERED: Tubing IV Secondary IV ONE (14:56)
[2018-12-23] MEDS: cefTRIAXone 1 GM in D5W 55 ML IVPB SCH (15:01)
[2018-12-23 16:00] VITALS: BP 154/54
--- NOTE | 2018-12-23 16:47 | Cardiac Electrophysiology PN ---
Assessment/Plan Assessment/Plan 1. Accelerated hypertension with blood pressure of around 200. On clonidine 0.1 q8, Norvasc 10 daily, Lasix 40 mg bid, Coreg 25 bid, losartan 100 daily, Imdur 20 daily and p.r.n. hydralazine. 2. History of CAD. Echo Nl EF 3. Hyperlipidemia on Lipitor. 4. Renal failure. Further evaluation by Nephrology. 5. Hematuria. US. Multiple masslike lesions within the bladder. Further evaluation with cystoscopy is recommended to evaluate for possible neoplasm. FU Urology STEPHANIE RN Subjective Subjective No new events. at bedside Objective Last 24 Hour Vital Signs Date Time Temp Pulse Resp B/P (MAP) Pulse Ox O2 Delivery O2 Flow Rate FiO2 12/23/18 13:37 144/66 12/23/18 12:19 73 18 99 Room Air 12/23/18 12:08 67 16 96 Room Air 12/23/18 12:00 98.6 75 18 144/66 (92) 75 12/23/18 09:25 Room Air 12/23/18 08:35 132/68 12/23/18 08:34 73 132/68 12/23/18 08:34 73 132/68 12/23/18 08:33 132/68 12/23/18 08:00 98.8 73 18 132/68 (89) 94 12/23/18 07:20 Room Air 12/23/18 07:20 Room Air 12/23/18 05:34 167/73 12/23/18 05:00 98.3 72 20 167/73 (104) 98 12/23/18 01:25 Room Air 12/23/18 01:24 Room Air 12/23/18 00:19 160/67 12/23/18 00:00 97.8 71 17 160/67 (98) 96 12/22/18 22:26 140/68 12/22/18 21:31 65 143/65 12/22/18 21:00 97.8 65 18 143/65 (91) 94 12/22/18 21:00 Room Air 12/22/18 19:33 60 18 99 Room Air 12/22/18 19:23 56 18 96 Room Air 12/22/18 17:03 67 123/65 (84) Intake and Output 12/22/18 12/23/18 18:59 06:59 Intake Total 975 ml 1425 ml Output Total 1600 ml Balance 975 ml -175 ml Intake Oral 400 ml 600 ml IV Total 575 ml 825 ml Output Urine Total 1600 ml # Voids 1 5 # Bowel Movements 1 Laboratory Tests Test 12/23/18 05:35 White Blood Count 6.0 K/UL (4.8-10.8) Red Blood Count 3.32 M/UL (4.70-6.10) L Hemoglobin 10.5 G/DL (14.2-18.0) L Hematocrit 32.9 % (42.0-52.0) L Mean Corpuscular Volume 99 FL (80-99) Mean Corpuscular Hemoglobin 31.5 PG (27.0-31.0) H Mean Corpuscular Hemoglobin Concent 31.8 G/DL (32.0-36.0) L Red Cell Distribution Width 12.6 % (11.6-14.8) Platelet Count 92 K/UL (150-450) L Mean Platelet Volume 9.2 FL (6.5-10.1) Neutrophils (%) (Auto) % (45.0-75.0) Lymphocytes (%) (Auto) % (20.0-45.0) Monocytes (%) (Auto) % (1.0-10.0) Eosinophils (%) (Auto) % (0.0-3.0) Basophils (%) (Auto) % (0.0-2.0) Differential Total Cells Counted 100 Neutrophils % (Manual) 69 % (45-75) Lymphocytes % (Manual) 22 % (20-45) Monocytes % (Manual) 8 % (1-10) Eosinophils % (Manual) 1 % (0-3) Basophils % (Manual) 0 % (0-2) Band Neutrophils 0 % (0-8) Platelet Estimate Decreased L Platelet Morphology Normal Macrocytosis 1+ Sodium Level 143 MMOL/L (136-145) Potassium Level 4.1 MMOL/L (3.5-5.1) Chloride Level 108 MMOL/L (98-107) H Carbon Dioxide Level 29 MMOL/L (21-32) Anion Gap 6 mmol/L (5-15) Blood Urea Nitrogen 51 mg/dL (7-18) H Creatinine 2.0 MG/DL (0.55-1.30) H Estimat Glomerular Filtration Rate mL/min (>60) Glucose Level 134 MG/DL (74-106) H Uric Acid 9.9 MG/DL (2.6-7.2) H Calcium Level 8.1 MG/DL (8.5-10.1) L Phosphorus Level 3.1 MG/DL (2.5-4.9) Magnesium Level 1.8 MG/DL (1.8-2.4) Total Bilirubin 0.4 MG/DL (0.2-1.0) Aspartate Amino Transf (AST/SGOT) 30 U/L (15-37) Alanine Aminotransferase (ALT/SGPT) 25 U/L (12-78) Alkaline Phosphatase 56 U/L (46-116) C-Reactive Protein, Quantitative 1.6 mg/dL (0.00-0.90) H Total Protein 6.4 G/DL (6.4-8.2) Albumin 2.9 G/DL (3.4-5.0) L Globulin 3.5 g/dL Albumin/Globulin Ratio 0.8 (1.0-2.7) L Objective HEAD AND NECK: Showed no JVD. LUNGS: Clear. CARDIOVASCULAR: Regular S1 and S2 with no gallop or murmur. ABDOMEN: Soft. EXTREMITIES: A 1+ pitting edema. Kd Fish MD Dec 23, 2018 16:46
--- NOTE | 2018-12-23 18:54 | NUR ---
NURSE NOTES: Patient was aox4 with calm, cooperative affect. VSS. Breathing easily on RA. Tolerated lunch and dinner 100% with no nvd. Voiding brown urine in urinal--patient needs assist to avoid spilling urinal. Loose, brown BM this afternoon. at bedside attentive to patient. OOB with max assist to stand at bedside--unsteady gait. Patient confirmed he will call for help if needs to get oob. Continued with plan of care.
--- NOTE | 2018-12-23 18:54 | NUR ---
NURSE NOTES:Patient received A/A/OX4 .Patient denies any pain . no s/s of Distress noted . IVF infusing well . Patient uses via urinals . safety/ fall precautions . call light within reach . bed in low position at all times . will continue to monitor.
[2018-12-23 20:00] VITALS: BP 162/68
[2018-12-23] MEDS: Atorvastatin 20mg tab ORAL SCH (20:54)
[2018-12-23] MEDS: Iron Sucrose 100 MG in NS 55 ML IV SCH (21:06)
[2018-12-24] VITALS: BP 160/62
[2018-12-24] MEDS: Albuterol/Ipratropium 3ml neb HHN SCH ×6 (01:47→20:01)
[2018-12-24 04:00] VITALS: BP 168/70
[2018-12-24] MEDS: HydrALAZINE 50mg tab ORAL SCH (06:17)
[2018-12-24] MEDS: NovoLOG Insulin Flexpen SUBQ SCH ×4 (06:26→20:24)
--- NOTE | 2018-12-24 07:01 | NUR ---
HAND-OFF: Report given to JOSE Clemons
[2018-12-24 07:31] LABS: HEMOGLOBIN 9.9 G/DL (14.2-18.0); MEAN CORPUSCULAR VOLUME 99 FL (80-99); PLATELET COUNT 92 K/UL (150-450); RED BLOOD COUNT 3.12 M/UL (4.70-6.10); RED CELL DISTRIBUTION WIDTH 12.5 % (11.6-14.8); WHITE BLOOD COUNT 4.9 K/UL (4.8-10.8)
[2018-12-24 08:00] VITALS: BP 165/75
[2018-12-24 08:04] LABS: ALANINE AMINOTRANSFERASE 22 U/L (12-78); ALBUMIN 2.8 G/DL (3.4-5.0); ALBUMIN/GLOBULIN RATIO 0.8 (1.0-2.7); ALKALINE PHOSPHATASE 54 U/L (46-116); ANION GAP 7 mmol/L (5-15); ASPARTATE AMINO TRANSFERASE 28 U/L (15-37); BILIRUBIN,TOTAL 0.3 MG/DL (0.2-1.0); BLOOD UREA NITROGEN 41 mg/dL (7-18); CALCIUM 8.3 MG/DL (8.5-10.1); CARBON DIOXIDE 27 MMOL/L (21-32); CHLORIDE 109 MMOL/L (98-107); CREATININE 1.6 MG/DL (0.55-1.30); PHOSPHORUS 2.2 MG/DL (2.5-4.9); POTASSIUM 3.9 MMOL/L (3.5-5.1); SODIUM 143 MMOL/L (136-145)
[2018-12-24] MEDS: Tamsulosin 0.4mg cap ORAL SCH ×2 (08:13→17:10)
[2018-12-24] MEDS: Carvedilol 12.5mg tab ORAL SCH ×2 (08:13→20:16)
[2018-12-24] MEDS: Imdur 30mg tab ORAL SCH (08:14)
[2018-12-24] MEDS: Docusate 100mg cap ORAL SCH ×3 (08:18→17:13)
[2018-12-24] MEDS: Bisacodyl EC 5mg tab ORAL SCH (08:19)
[2018-12-24] MEDS: Heparin 5000 units/ml inj SUBQ SCH ×2 (08:21→20:24)
--- NOTE | 2018-12-24 08:57 | General Progress Note ---
Assessment/Plan Problem List: (1) CHF (congestive heart failure) ICD Codes: I50.9 - Heart failure, unspecified SNOMED: 17752163 (2) Weak ICD Codes: R53.1 - Weakness SNOMED: 71180570 (3) Bladder mass ICD Codes: N32.89 - Other specified disorders of bladder SNOMED: 983024855 (4) Diabetes ICD Codes: E11.9 - Type 2 diabetes mellitus without complications SNOMED: 46988531 (5) HTN (hypertension) ICD Codes: I10 - Essential (primary) hypertension SNOMED: 80912270 (6) Anemia ICD Codes: D64.9 - Anemia, unspecified SNOMED: 331894141 (7) ARF (acute renal failure) ICD Codes: N17.9 - Acute kidney failure, unspecified SNOMED: 30047543 (8) UTI (urinary tract infection) ICD Codes: N39.0 - Urinary tract infection, site not specified SNOMED: 42897444, 3367020 (9) Hypertension ICD Codes: I10 - Essential (primary) hypertension SNOMED: 95889758 (10) ATN (acute tubular necrosis) ICD Codes: N17.0 - Acute kidney failure with tubular necrosis SNOMED: 10211222 Status: stable, progressing Assessment/Plan: bp bs control abx uro heme f/u cbc bmp am Subjective Constitutional: Reports: weakness Allergies: Coded Allergies: No Known Allergies (Unverified , 12/20/18) All Systems: reviewed and negative except above Subjective walking w walker Objective Last 24 Hour Vital Signs Date Time Temp Pulse Resp B/P (MAP) Pulse Ox O2 Delivery O2 Flow Rate FiO2 12/24/18 08:14 165/75 12/24/18 08:13 165/75 12/24/18 08:13 74 165/75 12/24/18 08:13 74 165/75 12/24/18 08:00 97.8 74 18 165/75 (105) 96 12/24/18 07:43 73 18 100 Room Air 12/24/18 07:42 71 18 100 Room Air 12/24/18 06:17 168/70 12/24/18 04:00 97.6 64 20 168/70 (102) 96 12/24/18 01:49 78 18 100 Room Air 12/24/18 01:37 76 18 97 Room Air 12/24/18 00:00 99.3 72 20 160/62 (94) 100 12/23/18 23:49 160/62 12/23/18 22:05 160/77 12/23/18 21:00 Room Air 12/23/18 20:53 74 160/68 12/23/18 20:00 72 18 98 Room Air 21 12/23/18 20:00 99.0 74 20 162/68 (99) 97 12/23/18 19:45 69 18 95 Room Air 21 12/23/18 17:47 144/66 12/23/18 16:00 99.2 68 18 154/54 (87) 96 12/23/18 13:37 144/66 12/23/18 12:19 73 18 99 Room Air 21 12/23/18 12:08 67 16 96 Room Air 21 12/23/18 12:00 98.6 75 18 144/66 (92) 75 12/23/18 09:25 Room Air Intake and Output 12/23/18 12/24/18 19:00 07:00 Intake Total 680 ml 1055 ml Output Total 500 ml 750 ml Balance 180 ml 305 ml Intake Oral 530 ml 320 ml IV Total 150 ml 735 ml Output Urine Total 500 ml 750 ml # Voids 4 4 # Bowel Movements 1 Laboratory Tests 12/24/18 05:05: White Blood Count 4.9, Red Blood Count 3.12L, Hemoglobin 9.9L, Hematocrit 31.0L , Mean Corpuscular Volume 99, Mean Corpuscular Hemoglobin 31.8H, Mean Corpuscular Hemoglobin Concent 32.0, Red Cell Distribution Width 12.5, Platelet Count 92L, Mean Platelet Volume 9.1, Neutrophils (%) (Auto) , Lymphocytes (%) ( Auto) , Monocytes (%) (Auto) , Eosinophils (%) (Auto) , Basophils (%) (Auto) , Neutrophils % (Manual) [Pending], Lymphocytes % (Manual) [Pending], Platelet Estimate [Pending], Platelet Morphology [Pending], Sodium Level 143, Potassium Level 3.9, Chloride Level 109H, Carbon Dioxide Level 27, Anion Gap 7, Blood Urea Nitrogen 41H, Creatinine 1.6H, Estimat Glomerular Filtration Rate , Glucose Level 149H, Uric Acid 9.6H, Calcium Level 8.3L, Phosphorus Level 2.2L, Magnesium Level 1.9, Total Bilirubin 0.3, Aspartate Amino Transf (AST/SGOT) 28, Alanine Aminotransferase (ALT/SGPT) 22, Alkaline Phosphatase 54, Troponin I 0.001, Total Protein 6.2L, Albumin 2.8L, Globulin 3.4, Albumin/Globulin Ratio 0.8L Height (Feet): 6 Height (Inches): 0.00 Weight (Pounds): 180 General Appearance: lethargic EENT: normal ENT inspection Neck: normal alignment Cardiovascular: normal peripheral pulses, normal rate, regular rhythm Respiratory/Chest: chest wall non-tender, lungs clear, normal breath sounds Abdomen: normal bowel sounds, non tender, soft Extremities: normal inspection Edema: 1+ Arm (L), 1+ Arm (R), 1+ Leg (L), 1+ Leg (R), 1+ Pedal (L), 1+ Pedal ( R), 1+ Generalized Edema: trace edema Neurologic: responsive, motor weakness Skin: normal pigmentation, warm/dry Jamie Gray DO Dec 24, 2018 08:57
[2018-12-24] MEDS ORDERED: Tubing IV Secondary IV ONE (09:56)
--- NOTE | 2018-12-24 11:59 | Nephrology Progress Note ---
Assessment/Plan Problem List: (1) Acute renal injury Assessment: Cr lowering (2) Gross hematuria (3) Hypertension (4) Bladder mass (5) Diabetes Assessment ANGELA - HTN OOC - Hematuria- Likely UTI Dehydration DM CAD Plan Uro eval still pending Urine culture- Flomax Rocephin Slow hydrate 2D echo Keep BP and BS in check per orders Multiple masslike lesions within the bladder. Further evaluation with cystoscopy is recommended to evaluate for possible neoplasm. Multiple parapelvic renal cysts Subjective ROS Limited/Unobtainable: No Objective Objective Last 24 Hour Vital Signs Date Time Temp Pulse Resp B/P (MAP) Pulse Ox O2 Delivery O2 Flow Rate FiO2 12/24/18 09:00 Room Air 12/24/18 08:14 165/75 12/24/18 08:13 165/75 12/24/18 08:13 74 165/75 12/24/18 08:13 74 165/75 12/24/18 08:00 97.8 74 18 165/75 (105) 96 12/24/18 07:43 73 18 100 Room Air 12/24/18 07:42 71 18 100 Room Air 12/24/18 06:17 168/70 12/24/18 04:00 97.6 64 20 168/70 (102) 96 12/24/18 01:49 78 18 100 Room Air 12/24/18 01:37 76 18 97 Room Air 12/24/18 00:00 99.3 72 20 160/62 (94) 100 12/23/18 23:49 160/62 12/23/18 22:05 160/77 12/23/18 21:00 Room Air 12/23/18 20:53 74 160/68 12/23/18 20:00 72 18 98 Room Air 12/23/18 20:00 99.0 74 20 162/68 (99) 97 12/23/18 19:45 69 18 95 Room Air 12/23/18 17:47 144/66 12/23/18 16:00 99.2 68 18 154/54 (87) 96 12/23/18 13:37 144/66 12/23/18 12:19 73 18 99 Room Air 12/23/18 12:08 67 16 96 Room Air 21 12/23/18 12:00 98.6 75 18 144/66 (92) 75 Intake and Output 8/10/19 8/11/19 19:00 07:00 Intake Total 680 ml 1055 ml Output Total 500 ml 750 ml Balance 180 ml 305 ml Intake Oral 530 ml 320 ml IV Total 150 ml 735 ml Output Urine Total 500 ml 750 ml # Voids 4 4 # Bowel Movements 1 Laboratory Tests 12/24/18 05:05: White Blood Count 4.9, Red Blood Count 3.12L, Hemoglobin 9.9L, Hematocrit 31.0L , Mean Corpuscular Volume 99, Mean Corpuscular Hemoglobin 31.8H, Mean Corpuscular Hemoglobin Concent 32.0, Red Cell Distribution Width 12.5, Platelet Count 92L, Mean Platelet Volume 9.1, Neutrophils (%) (Auto) , Lymphocytes (%) ( Auto) , Monocytes (%) (Auto) , Eosinophils (%) (Auto) , Basophils (%) (Auto) , Differential Total Cells Counted 100, Neutrophils % (Manual) 63, Lymphocytes % ( Manual) 24, Monocytes % (Manual) 9, Eosinophils % (Manual) 4H, Basophils % ( Manual) 0, Band Neutrophils 0, Platelet Estimate DecreasedL, Platelet Morphology Normal, Macrocytosis 1+, Sodium Level 143, Potassium Level 3.9, Chloride Level 109H, Carbon Dioxide Level 27, Anion Gap 7, Blood Urea Nitrogen 41H, Creatinine 1.6H, Estimat Glomerular Filtration Rate , Glucose Level 149H, Uric Acid 9.6H, Calcium Level 8.3L, Phosphorus Level 2.2L, Magnesium Level 1.9, Total Bilirubin 0.3, Aspartate Amino Transf (AST/SGOT) 28, Alanine Aminotransferase (ALT/SGPT) 22, Alkaline Phosphatase 54, Troponin I 0.001, Total Protein 6.2L, Albumin 2.8L, Globulin 3.4, Albumin/Globulin Ratio 0.8L Height (Feet): 6 Height (Inches): 0.00 Weight (Pounds): 180 General Appearance: no apparent distress Objective no change Russell Sofia MD Dec 24, 2018 11:59
[2018-12-24 12:00] VITALS: BP 113/58
[2018-12-24] MEDS: cefTRIAXone 1 GM in D5W 55 ML IVPB SCH (13:21)
[2018-12-24] MEDS: HydrALAZINE 25mg tab ORAL SCH ×2 (13:26→21:35)
--- NOTE | 2018-12-24 14:53 | Cardiology Report ---
APPROVED REPORT EKG Measurement Heart [id number] Sinus bradycardia with occasional premature ventricular complexes Otherwise normal ECG
--- NOTE | 2018-12-24 15:31 | NUR ---
CHARGE NURSE NOTE: (covering (according to ) was called and notified that pt needs urology consult. Spoke with Mohini.
--- NOTE | 2018-12-24 15:46 | NUR ---
NURSE NOTES: Patient was aox4 with calm, cooperative affect. VSS. Breathing easily on RA. Tolerated lunch and dinner 100% with no nvd. Voiding red urine in urinal--patient needs assist to avoid spilling urinal. Loose, brown BM this morning. OOB with max assist to stand at bedside--unsteady gait. Patient confirmed he will call for help if needs to get oob. Continued with plan of care.
[2018-12-24 16:00] VITALS: BP 169/71
--- NOTE | 2018-12-24 16:07 | Hematology/Onc Progress Note ---
Assessment/Plan Assessment/Plan Assessment and Recs: # Multiple bladder masses CT shows Scattered eccentric mural thickening/masses in the urinary bladder wall, correlating with findings on recent ultrasound. No significant perivesical stranding. Recommend further evaluation with cystoscopy. --> urology consulted, recs awaiting --> may need cystoscopy, eval for resection --> if no resection, may need treatment, chemo # Thrombocytopenia - potential causes multifactorial, evaluate liver and viral etiologies to begin, also could be related to underlying medications patient has received. --> Hep panel and HIV -> NEGATIVE --> US abd showed bladder masses--> CT a/p without contrast pending --> Peripheral smear ordered to evaluate for blasts /schistocytes --> abx and other meds have been reviewed --> ok for ppx if plt >50k w/ either heparin or lovenox --> Transfuse if Plt < 20k and fever, or if Plt < 10k without fever # Anemia of iron deficiency likely due to hematuria --> iv iron started x 5 days low ferritin --> may be due to hematuria --> have started on ivf and consider uro prn cysto # Acute renal injury --> cr has improved 2.3-->1.8-->2.3->1.6 --> per renal recs --> volume expansion # HTN --> cards consulted # Hematuria # UTI (urinary tract infection) # Dehydration The timing of this note does not necessarily reflect the time of the patient was seen. GREATLY APPRECIATE CONSULTATION. Subjective HEENT: Denies: no symptoms, eye pain, blurred vision, tearing, double vision, ear pain, ear discharge, nose pain, nose congestion, throat pain, throat swelling, mouth pain, mouth swelling, other Cardiovascular: Denies: no symptoms, chest pain, edema, irregular heart rate, lightheadedness, palpitations, syncope, other Respiratory: Denies: no symptoms, cough, shortness of breath, SOB with excertion, SOB at rest, sputum, wheezing, other Gastrointestinal/Abdominal: Denies: no symptoms, abdomen distended, abdominal pain, black stools, tarry stools, blood in stool, constipated, diarrhea, difficulty swallowing, nausea, poor appetite, poor fluid intake, rectal bleeding , vomiting, other Genitourinary: Denies: no symptoms, burning, discharge, frequency, flank pain, hematuria, incontinence, pain, urgency, other Neurologic/Psychiatric: Denies: no symptoms, anxiety, depressed, emotional problems, headache, numbness, paresthesia, pre-existing deficit, seizure, tingling, tremors, weakness, other Endocrine: Denies: no symptoms, excessive sweating, flushing, intolerance to cold, intolerance to heat, increased hunger, increased thirst, increased urine, unexplained weight gain, unexplained weight loss, other Allergies: Coded Allergies: No Known Allergies (Unverified , 12/20/18) Subjective 12/22: no events noted, no bleeding, ct ordered for the us findings with multiple masses in bladder, cysto recommended 12/24: no events, no bleeding, no night sweats noted, no chills reported Objective Objective Current Medications Medications (Trade) Dose Ordered Sig/Sallie Route PRN Reason Start Time Stop Time Status Last Admin Dose Admin Acetaminophen (Tylenol) 650 mg Q4H PRN ORAL fever 12/20/18 20:30 01/19/19 20:29 Albuterol/ Ipratropium (Albuterol/ Ipratropium) 3 ml Q6HRT HHN 12/21/18 01:00 12/26/18 00:59 12/24/18 13:58 Amlodipine Besylate (Norvasc) 10 mg DAILY ORAL 12/21/18 09:00 01/20/19 08:59 12/24/18 08:13 Atorvastatin Calcium (Lipitor) 20 mg BEDTIME ORAL 12/21/18 21:00 01/20/19 20:59 12/23/18 20:54 Bisacodyl (Dulcolax) 5 mg DAILY ORAL 12/21/18 09:00 01/20/19 08:59 12/23/18 08:34 Carvedilol (Coreg) 12.5 mg EVERY 12 HOURS ORAL 12/21/18 09:00 01/20/19 08:59 12/24/18 08:13 Ceftriaxone Sodium 1 gm/ Dextrose 55 ml @ 110 mls/hr Q24H IVPB 12/22/18 14:00 12/29/18 13:59 12/24/18 13:21 Clonidine HCl (Catapres Tab) 0.1 mg Q4H PRN ORAL bp over 165 syst 12/21/18 11:45 01/20/19 11:44 Clonidine HCl (Catapres Tab) 0.1 mg Q8H ORAL 12/22/18 08:00 01/21/19 07:59 12/24/18 16:00 Dextrose (Dextrose 50%) 25 ml Q30M PRN IV Hypoglycemia 12/20/18 20:30 01/19/19 20:29 Dextrose (Dextrose 50%) 50 ml Q30M PRN IV Hypoglycemia 12/20/18 20:30 01/19/19 20:29 Diphenhydramine HCl (Benadryl) 25 mg Q6H PRN ORAL Itching/Pruritis 12/20/18 20:30 01/19/19 20:29 Docusate Sodium (Colace) 100 mg THREE TIMES A DAY ORAL 12/21/18 18:00 01/20/19 17:59 12/23/18 13:37 Folic Acid (Folate) 3 mg DAILY ORAL 12/23/18 10:00 01/22/19 09:59 12/24/18 08:13 Heparin Sodium (Porcine) (Heparin 5000 units/ml) 5,000 units EVERY 12 HOURS SUBQ 12/21/18 09:00 01/19/19 21:46 12/22/18 21:33 Hydralazine HCl (Apresoline) 75 mg Q8HR ORAL 12/24/18 14:00 01/20/19 08:59 12/24/18 13:26 Hydromorphone HCl (Dilaudid) 2 mg Q6H PRN IVP Moderate Pain (Pain Scale 4-6) 12/21/18 18:00 12/28/18 17:59 12/22/18 15:11 Insulin Aspart (NovoLOG) BEFORE MEALS AND HS SUBQ 12/21/18 06:30 01/20/19 06:29 12/24/18 12:33 Ipratropium [place]aver (Atrovent) 500 mcg Q8H PRN HHN Bronchospasm 12/20/18 20:30 12/25/18 20:29 Iron Sucrose 100 mg/Sodium Chloride 60 ml @ 240 mls/hr BEDTIME IV 12/22/18 21:00 12/26/18 21:14 12/23/18 21:06 Isosorbide Mononitrate (Imdur) 60 mg DAILY ORAL 12/21/18 11:45 01/20/19 11:44 12/24/18 08:14 Lorazepam (Ativan 2mg/ml 1ml) 0.5 mg Q4H PRN IV For Anxiety 12/20/18 20:30 12/27/18 20:29 Nitroglycerin (Ntg) 0.4 mg Q5M X 3 DOSES PRN SL Prn Chest Pain 12/20/18 20:30 01/19/19 20:29 Ondansetron HCl (Zofran) 4 mg Q6H PRN IVP Nausea & Vomiting 12/20/18 20:30 01/19/19 20:29 Pantoprazole (Protonix) 40 mg EVERY 12 HOURS ORAL 12/21/18 21:00 01/20/19 20:59 12/24/18 08:13 Sodium Chloride 1,000 ml @ 75 mls/hr [id number] IVLG 12/22/18 11:00 01/19/19 10:59 12/24/18 03:35 Tamsulosin HCl (Flomax) 0.4 mg BID ORAL 12/21/18 11:45 01/20/19 11:44 12/24/18 08:13 Zolpidem Tartrate (Ambien) 5 mg HSPRN PRN ORAL Insomnia 12/20/18 20:30 12/27/18 20:29 12/24/18 01:58 Last 24 Hour Vital Signs Date Time Temp Pulse Resp B/P (MAP) Pulse Ox O2 Delivery O2 Flow Rate FiO2 12/24/18 16:00 167/71 12/24/18 13:56 68 18 99 Room Air 12/24/18 13:56 67 18 97 Room Air 12/24/18 13:26 Room Air 21 12/24/18 13:26 155/61 12/24/18 13:26 Room Air 12/24/18 12:00 97.5 70 17 113/58 (76) 96 12/24/18 09:00 Room Air 12/24/18 08:14 165/75 12/24/18 08:13 165/75 12/24/18 08:13 74 165/75 12/24/18 08:13 74 165/75 12/24/18 08:00 97.8 74 18 165/75 (105) 96 12/24/18 07:43 73 18 100 Room Air 12/24/18 07:42 71 18 100 Room Air 21 12/24/18 06:17 168/70 12/24/18 04:00 97.6 64 20 168/70 (102) 96 12/24/18 01:49 78 18 100 Room Air 21 12/24/18 01:37 76 18 97 Room Air 21 12/24/18 00:00 99.3 72 20 160/62 (94) 100 12/23/18 23:49 160/62 12/23/18 22:05 160/77 12/23/18 21:00 Room Air 12/23/18 20:53 74 160/68 12/23/18 20:00 72 18 98 Room Air 21 12/23/18 20:00 99.0 74 20 162/68 (99) 97 12/23/18 19:45 69 18 95 Room Air 12/23/18 17:47 144/66 12/23/18 16:00 99.2 68 18 154/54 (87) 96 12/23/18 13:37 144/66 12/23/18 12:19 73 18 99 Room Air 12/23/18 12:08 67 16 96 Room Air 12/23/18 12:00 98.6 75 18 144/66 (92) 75 12/23/18 09:25 Room Air 12/23/18 08:35 132/68 12/23/18 08:34 73 132/68 12/23/18 08:34 73 132/68 12/23/18 08:33 132/68 12/23/18 08:00 98.8 73 18 132/68 (89) 94 12/23/18 07:20 Room Air 12/23/18 07:20 Room Air 12/23/18 05:34 167/73 12/23/18 05:00 98.3 72 20 167/73 (104) 98 12/23/18 01:25 Room Air 21 12/23/18 01:24 Room Air 21 12/23/18 00:19 160/67 12/23/18 00:00 97.8 71 17 160/67 (98) 96 12/22/18 22:26 140/68 12/22/18 21:31 65 143/65 12/22/18 21:00 97.8 65 18 143/65 (91) 94 12/22/18 21:00 Room Air 12/22/18 19:33 60 18 99 Room Air 21 12/22/18 19:23 56 18 96 Room Air 21 12/22/18 17:03 67 123/65 (84) Intake and Output 12/23/18 12/24/18 18:59 06:59 Intake Total 605 ml 1130 ml Output Total 500 ml 750 ml Balance 105 ml 380 ml Intake Oral 530 ml 320 ml IV Total 75 ml 810 ml Output Urine Total 500 ml 750 ml # Voids 4 4 # Bowel Movements 1 Labs Test 12/22/18 05:25 12/23/18 05:35 12/24/18 05:05 White Blood Count 7.7 K/UL (4.8-10.8) 6.0 K/UL (4.8-10.8) 4.9 K/UL (4.8-10.8) Red Blood Count 3.09 M/UL (4.70-6.10) 3.32 M/UL (4.70-6.10) 3.12 M/UL (4.70-6.10) Hemoglobin 9.8 G/DL (14.2-18.0) 10.5 G/DL (14.2-18.0) 9.9 G/DL (14.2-18.0) Hematocrit 30.3 % (42.0-52.0) 32.9 % (42.0-52.0) 31.0 % (42.0-52.0) Mean Corpuscular Volume 98 FL (80-99) 99 FL (80-99) 99 FL (80-99) Mean Corpuscular Hemoglobin 31.7 PG (27.0-31.0) 31.5 PG (27.0-31.0) 31.8 PG (27.0-31.0) Mean Corpuscular Hemoglobin Concent 32.4 G/DL (32.0-36.0) 31.8 G/DL (32.0-36.0) 32.0 G/DL (32.0-36.0) Red Cell Distribution Width 12.4 % (11.6-14.8) 12.6 % (11.6-14.8) 12.5 % (11.6-14.8) Platelet Count 103 K/UL (150-450) 92 K/UL (150-450) 92 K/UL (150-450) Mean Platelet Volume 9.3 FL (6.5-10.1) 9.2 FL (6.5-10.1) 9.1 FL (6.5-10.1) Neutrophils (%) (Auto) 69.2 % (45.0-75.0) % (45.0-75.0) % (45.0-75.0) Lymphocytes (%) (Auto) 17.1 % (20.0-45.0) % (20.0-45.0) % (20.0-45.0) Monocytes (%) (Auto) 12.9 % (1.0-10.0) % (1.0-10.0) % (1.0-10.0) Eosinophils (%) (Auto) 0.1 % (0.0-3.0) % (0.0-3.0) % (0.0-3.0) Basophils (%) (Auto) 0.7 % (0.0-2.0) % (0.0-2.0) % (0.0-2.0) Sodium Level 143 MMOL/L (136-145) 143 MMOL/L (136-145) 143 MMOL/L (136-145) Potassium Level 4.1 MMOL/L (3.5-5.1) 4.1 MMOL/L (3.5-5.1) 3.9 MMOL/L (3.5-5.1) Chloride Level 108 MMOL/L (98-107) 108 MMOL/L (98-107) 109 MMOL/L (98-107) Carbon Dioxide Level 29 MMOL/L (21-32) 29 MMOL/L (21-32) 27 MMOL/L (21-32) Anion Gap 6 mmol/L (5-15) 6 mmol/L (5-15) 7 mmol/L (5-15) Blood Urea Nitrogen 57 mg/dL (7-18) 51 mg/dL (7-18) 41 mg/dL (7-18) Creatinine 2.3 MG/DL (0.55-1.30) 2.0 MG/DL (0.55-1.30) 1.6 MG/DL (0.55-1.30) Estimat Glomerular Filtration Rate mL/min (>60) mL/min (>60) mL/min (>60) Glucose Level 174 MG/DL (74-106) 134 MG/DL (74-106) 149 MG/DL (74-106) Hemoglobin A1c 6.1 % (4.3-6.0) Uric Acid 10.3 MG/DL (2.6-7.2) 9.9 MG/DL (2.6-7.2) 9.6 MG/DL (2.6-7.2) Calcium Level 8.2 MG/DL (8.5-10.1) 8.1 MG/DL (8.5-10.1) 8.3 MG/DL (8.5-10.1) Phosphorus Level 3.8 MG/DL (2.5-4.9) 3.1 MG/DL (2.5-4.9) 2.2 MG/DL (2.5-4.9) Magnesium Level 1.9 MG/DL (1.8-2.4) 1.8 MG/DL (1.8-2.4) 1.9 MG/DL (1.8-2.4) Iron Level 38 ug/dL (50-175) Total Iron Binding Capacity 193 ug/dL (250-450) Percent Iron Saturation 20 % (15-50) Unsaturated Iron Binding 155 ug/dL (112-346) Ferritin 38 NG/ML (8-388) Total Bilirubin 0.4 MG/DL (0.2-1.0) 0.4 MG/DL (0.2-1.0) 0.3 MG/DL (0.2-1.0) Gamma Glutamyl Transpeptidase 26 U/L (5-85) Aspartate Amino Transf (AST/SGOT) 24 U/L (15-37) 30 U/L (15-37) 28 U/L (15-37) Alanine Aminotransferase (ALT/SGPT) 25 U/L (12-78) 25 U/L (12-78) 22 U/L (12-78) Alkaline Phosphatase 54 U/L (46-116) 56 U/L (46-116) 54 U/L (46-116) Total Creatine Kinase 265 U/L (26-308) Troponin I 0.043 ng/mL (0.000-0.056) 0.001 ng/mL (0.000-0.056) C-Reactive Protein, Quantitative 1.8 mg/dL (0.00-0.90) 1.6 mg/dL (0.00-0.90) Pro-B-Type Natriuretic Peptide 1081 pg/mL (0-125) Total Protein 6.1 G/DL (6.4-8.2) 6.4 G/DL (6.4-8.2) 6.2 G/DL (6.4-8.2) Albumin 2.8 G/DL (3.4-5.0) 2.9 G/DL (3.4-5.0) 2.8 G/DL (3.4-5.0) Globulin 3.3 g/dL 3.5 g/dL 3.4 g/dL Albumin/Globulin Ratio 0.8 (1.0-2.7) 0.8 (1.0-2.7) 0.8 (1.0-2.7) Triglycerides Level 52 MG/DL (30-150) Cholesterol Level 97 MG/DL (< 200) LDL Cholesterol 45 mg/dL (<100) HDL Cholesterol 43 MG/DL (40-60) Cholesterol/HDL Ratio 2.3 (3.3-4.4) Vitamin B12 Level 341 PG/ML (193-986) Folate 6.6 NG/ML (8.6-58.9) Thyroid Stimulating Hormone (TSH) 2.555 uiU/mL (0.358-3.740) Differential Total Cells Counted 100 100 Neutrophils % (Manual) 69 % (45-75) 63 % (45-75) Lymphocytes % (Manual) 22 % (20-45) 24 % (20-45) Monocytes % (Manual) 8 % (1-10) 9 % (1-10) Eosinophils % (Manual) 1 % (0-3) 4 % (0-3) Basophils % (Manual) 0 % (0-2) 0 % (0-2) Band Neutrophils 0 % (0-8) 0 % (0-8) Platelet Estimate Decreased Decreased Platelet Morphology Normal Normal Macrocytosis 1+ 1+ Height (Feet): 6 Height (Inches): 0.00 Weight (Pounds): 180 Objective Physical Exam: Vitals: reviewed General Appearance: ALPHONSO SANCHEZ: normocephalic, atraumatic Neck: non-tender, normal alignment Respiratory/Chest: normal breath sounds bilaterally Cardiovascular/Chest: normal peripheral pulses, normal rate Abdomen: normal bowel sounds, soft, nontender Extremities: normal range of motion + clots noted in urinal Skin: no rash Marcelo Mcallister MD Dec 24, 2018 16:07
--- NOTE | 2018-12-24 18:07 | Consultation ---
History of Present Illness General Date patient seen: Dec 24, 2018 Chief Complaint: Abnormal Labs Referring physician: emily Reason for Consultation: Hematuria Present Illness HPI 83 yo male with a few co-morbidities noting Anatoliy and hematuria on admission. imaging shows high likelihood of bladder tumors. Patient denies a history of this. does admit to smoking in the past. currently feels well, no significant pain/dysuria. Allergies: Coded Allergies: No Known Allergies (Unverified , 12/20/18) Medication History Scheduled Amlodipine Besylate* (Amlodipine Besylate*), 10 MG ORAL DAILY, (Reported) Atorvastatin Calcium* (Atorvastatin Calcium*), 80 MG ORAL BEDTIME, (Reported) Bisacodyl* (Dulcolax*), 5 MG ORAL DAILY, (Reported) Carvedilol (Coreg), 12.5 MG ORAL EVERY 12 HOURS, (Reported) Clonidine Hcl* (Catapres*), 0.2 MG ORAL Q8HR, (Reported) Dutasteride (Avodart), 0.5 MG ORAL DAILY, (Reported) Furosemide* (Lasix*), 40 MG ORAL TWICE A DAY, (Reported) Hydralazine Hcl* (Hydralazine Hcl*), 50 MG ORAL BID, (Reported) Isosorbide Dinitrate* (Isordil*), 20 MG ORAL DAILY, (Reported) Losartan Potassium* (Losartan Potassium*), 100 MG ORAL DAILY, (Reported) Vitamin B Complex (Vitamin B Complex), 1 CAP ORAL DAILY, (Reported) Scheduled PRN Acetaminophen* (Acetaminophen 325MG Tablet*), 650 MG ORAL Q4H PRN for For Pain, (Reported) Magnesium Hydroxide* (Milk Of Magnesia*), 30 ML ORAL EVERY 6 HOURS PRN for stomach upset, (Reported) Patient History History Provided By: Patient Healthcare decision maker SELF Resuscitation status Full Code Advanced Directive on File Yes Past Medical/Surgical History Past Medical/Surgical History: (1) Diabetes (2) CHF (congestive heart failure) (3) HTN (hypertension) Review of Systems All Other Systems: negative except mentioned in HPI Physical Exam General Appearance: no apparent distress HEENT: normocephalic, atraumatic Respiratory/Chest: chest wall non-tender Cardiovascular/Chest: normal rate Abdomen: non tender, soft Neurologic: alert, oriented x 3 Last 24 Hour Vital Signs Date Time Temp Pulse Resp B/P (MAP) Pulse Ox O2 Delivery O2 Flow Rate FiO2 12/24/18 16:00 167/71 12/24/18 16:00 98.0 75 19 169/71 (103) 96 12/24/18 13:56 68 18 99 Room Air 21 12/24/18 13:56 67 18 97 Room Air 21 12/24/18 13:26 Room Air 21 12/24/18 13:26 155/61 12/24/18 13:26 Room Air 21 12/24/18 12:00 97.5 70 17 113/58 (76) 96 12/24/18 09:00 Room Air 12/24/18 08:14 165/75 12/24/18 08:13 165/75 12/24/18 08:13 74 165/75 12/24/18 08:13 74 165/75 12/24/18 08:00 97.8 74 18 165/75 (105) 96 12/24/18 07:43 73 18 100 Room Air 12/24/18 07:42 71 18 100 Room Air 12/24/18 06:17 168/70 12/24/18 04:00 97.6 64 20 168/70 (102) 96 12/24/18 01:49 78 18 100 Room Air 21 12/24/18 01:37 76 18 97 Room Air 21 12/24/18 00:00 99.3 72 20 160/62 (94) 100 12/23/18 23:49 160/62 12/23/18 22:05 160/77 12/23/18 21:00 Room Air 12/23/18 20:53 74 160/68 12/23/18 20:00 72 18 98 Room Air 21 12/23/18 20:00 99.0 74 20 162/68 (99) 97 12/23/18 19:45 69 18 95 Room Air 21 Intake and Output 12/23/18 12/24/18 18:59 06:59 Intake Total 605 ml 1130 ml Output Total 500 ml 750 ml Balance 105 ml 380 ml Intake Oral 530 ml 320 ml IV Total 75 ml 810 ml Output Urine Total 500 ml 750 ml # Voids 4 4 # Bowel Movements 1 Laboratory Tests Test 12/24/18 05:05 White Blood Count 4.9 K/UL (4.8-10.8) Red Blood Count 3.12 M/UL (4.70-6.10) L Hemoglobin 9.9 G/DL (14.2-18.0) L Hematocrit 31.0 % (42.0-52.0) L Mean Corpuscular Volume 99 FL (80-99) Mean Corpuscular Hemoglobin 31.8 PG (27.0-31.0) H Mean Corpuscular Hemoglobin Concent 32.0 G/DL (32.0-36.0) Red Cell Distribution Width 12.5 % (11.6-14.8) Platelet Count 92 K/UL (150-450) L Mean Platelet Volume 9.1 FL (6.5-10.1) Neutrophils (%) (Auto) % (45.0-75.0) Lymphocytes (%) (Auto) % (20.0-45.0) Monocytes (%) (Auto) % (1.0-10.0) Eosinophils (%) (Auto) % (0.0-3.0) Basophils (%) (Auto) % (0.0-2.0) Differential Total Cells Counted 100 Neutrophils % (Manual) 63 % (45-75) Lymphocytes % (Manual) 24 % (20-45) Monocytes % (Manual) 9 % (1-10) Eosinophils % (Manual) 4 % (0-3) H Basophils % (Manual) 0 % (0-2) Band Neutrophils 0 % (0-8) Platelet Estimate Decreased L Platelet Morphology Normal Macrocytosis 1+ Sodium Level 143 MMOL/L (136-145) Potassium Level 3.9 MMOL/L (3.5-5.1) Chloride Level 109 MMOL/L (98-107) H Carbon Dioxide Level 27 MMOL/L (21-32) Anion Gap 7 mmol/L (5-15) Blood Urea Nitrogen 41 mg/dL (7-18) H Creatinine 1.6 MG/DL (0.55-1.30) H Estimat Glomerular Filtration Rate mL/min (>60) Glucose Level 149 MG/DL (74-106) H Uric Acid 9.6 MG/DL (2.6-7.2) H Calcium Level 8.3 MG/DL (8.5-10.1) L Phosphorus Level 2.2 MG/DL (2.5-4.9) L Magnesium Level 1.9 MG/DL (1.8-2.4) Total Bilirubin 0.3 MG/DL (0.2-1.0) Aspartate Amino Transf (AST/SGOT) 28 U/L (15-37) Alanine Aminotransferase (ALT/SGPT) 22 U/L (12-78) Alkaline Phosphatase 54 U/L (46-116) Troponin I 0.001 ng/mL (0.000-0.056) Total Protein 6.2 G/DL (6.4-8.2) L Albumin 2.8 G/DL (3.4-5.0) L Globulin 3.4 g/dL Albumin/Globulin Ratio 0.8 (1.0-2.7) L Height (Feet): 6 Height (Inches): 0.00 Weight (Pounds): 180 Medications Current Medications Medications (Trade) Dose Ordered Sig/Sallie Route PRN Reason Start Time Stop Time Status Last Admin Dose Admin Acetaminophen (Tylenol) 650 mg Q4H PRN ORAL fever 12/20/18 20:30 01/19/19 20:29 Albuterol/ Ipratropium (Albuterol/ Ipratropium) 3 ml Q6HRT HHN 12/21/18 01:00 12/26/18 00:59 12/24/18 13:58 Amlodipine Besylate (Norvasc) 10 mg DAILY ORAL 12/21/18 09:00 01/20/19 08:59 12/24/18 08:13 Atorvastatin Calcium (Lipitor) 20 mg BEDTIME ORAL 12/21/18 21:00 01/20/19 20:59 12/23/18 20:54 Bisacodyl (Dulcolax) 5 mg DAILY ORAL 12/21/18 09:00 01/20/19 08:59 12/23/18 08:34 Carvedilol (Coreg) 12.5 mg EVERY 12 HOURS ORAL 12/21/18 09:00 01/20/19 08:59 12/24/18 08:13 Ceftriaxone Sodium 1 gm/ Dextrose 55 ml @ 110 mls/hr Q24H IVPB 12/22/18 14:00 12/29/18 13:59 12/24/18 13:21 Clonidine HCl (Catapres Tab) 0.1 mg Q4H PRN ORAL bp over 165 syst 12/21/18 11:45 01/20/19 11:44 Clonidine HCl (Catapres Tab) 0.1 mg Q8H ORAL 12/22/18 08:00 01/21/19 07:59 12/24/18 16:00 Dextrose (Dextrose 50%) 25 ml Q30M PRN IV Hypoglycemia 12/20/18 20:30 01/19/19 20:29 Dextrose (Dextrose 50%) 50 ml Q30M PRN IV Hypoglycemia 12/20/18 20:30 01/19/19 20:29 Diphenhydramine HCl (Benadryl) 25 mg Q6H PRN ORAL Itching/Pruritis 12/20/18 20:30 01/19/19 20:29 Docusate Sodium (Colace) 100 mg THREE TIMES A DAY ORAL 12/21/18 18:00 01/20/19 17:59 12/23/18 13:37 Folic Acid (Folate) 3 mg DAILY ORAL 12/23/18 10:00 01/22/19 09:59 12/24/18 08:13 Heparin Sodium (Porcine) (Heparin 5000 units/ml) 5,000 units EVERY 12 HOURS SUBQ 12/21/18 09:00 01/19/19 21:46 12/22/18 21:33 Hydralazine HCl (Apresoline) 75 mg Q8HR ORAL 12/24/18 14:00 01/20/19 08:59 12/24/18 13:26 Hydromorphone HCl (Dilaudid) 2 mg Q6H PRN IVP Moderate Pain (Pain Scale 4-6) 12/21/18 18:00 12/28/18 17:59 12/22/18 15:11 Insulin Aspart (NovoLOG) BEFORE MEALS AND HS SUBQ 12/21/18 06:30 01/20/19 06:29 12/24/18 17:13 Ipratropium [place] (Atrovent) 500 mcg Q8H PRN HHN Bronchospasm 12/20/18 20:30 12/25/18 20:29 Iron Sucrose 100 mg/Sodium Chloride 60 ml @ 240 mls/hr BEDTIME IV 12/22/18 21:00 12/26/18 21:14 12/23/18 21:06 Isosorbide Mononitrate (Imdur) 60 mg DAILY ORAL 12/21/18 11:45 01/20/19 11:44 12/24/18 08:14 Lorazepam (Ativan 2mg/ml 1ml) 0.5 mg Q4H PRN IV For Anxiety 12/20/18 20:30 12/27/18 20:29 Nitroglycerin (Ntg) 0.4 mg Q5M X 3 DOSES PRN SL Prn Chest Pain 12/20/18 20:30 01/19/19 20:29 Ondansetron HCl (Zofran) 4 mg Q6H PRN IVP Nausea & Vomiting 12/20/18 20:30 01/19/19 20:29 Pantoprazole (Protonix) 40 mg EVERY 12 HOURS ORAL 12/21/18 21:00 01/20/19 20:59 12/24/18 08:13 Sodium Chloride 1,000 ml @ 75 mls/hr [id number] IVLG 12/22/18 11:00 01/19/19 10:59 12/24/18 03:35 Tamsulosin HCl (Flomax) 0.4 mg BID ORAL 12/21/18 11:45 01/20/19 11:44 12/24/18 17:10 Zolpidem Tartrate (Ambien) 5 mg HSPRN PRN ORAL Insomnia 12/20/18 20:30 12/27/18 20:29 12/24/18 01:58 Assessment/Plan Status: stable Assessment/Plan: 83 yo male with hematuria and bladder masses on imaging. recommend cysto with resection. 1. clinical optimiziation/pre-op clearance 2. plan for cysto, bladder tumor resection Tuesday/Tuesday. Cristian Lara M.D. Dec 24, 2018 18:07
--- NOTE | 2018-12-24 19:35 | Pulmonology Progress Note ---
Assessment/Plan Problems: (1) ATN (acute tubular necrosis) (2) Gross hematuria (3) Hypertension (4) CAD (coronary artery disease) (5) Hematuria Assessment/Plan f/u by iv hydration awaiting urology consult doing better prbc prn Subjective ROS Limited/Unobtainable: No Constitutional: Reports: no symptoms HEENT: Repors: no symptoms Respiratory: Reports: no symptoms Allergies: Coded Allergies: No Known Allergies (Unverified , 12/20/18) Objective Last 24 Hour Vital Signs Date Time Temp Pulse Resp B/P (MAP) Pulse Ox O2 Delivery O2 Flow Rate FiO2 12/24/18 16:00 167/71 12/24/18 16:00 98.0 75 19 169/71 (103) 96 12/24/18 13:56 68 18 99 Room Air 12/24/18 13:56 67 18 97 Room Air 12/24/18 13:26 Room Air 12/24/18 13:26 155/61 12/24/18 13:26 Room Air 12/24/18 12:00 97.5 70 17 113/58 (76) 96 12/24/18 09:00 Room Air 12/24/18 08:14 165/75 12/24/18 08:13 165/75 12/24/18 08:13 74 165/75 12/24/18 08:13 74 165/75 12/24/18 08:00 97.8 74 18 165/75 (105) 96 12/24/18 07:43 73 18 100 Room Air 12/24/18 07:42 71 18 100 Room Air 12/24/18 06:17 168/70 12/24/18 04:00 97.6 64 20 168/70 (102) 96 12/24/18 01:49 78 18 100 Room Air 12/24/18 01:37 76 18 97 Room Air 12/24/18 00:00 99.3 72 20 160/62 (94) 100 12/23/18 23:49 160/62 12/23/18 22:05 160/77 12/23/18 21:00 Room Air 12/23/18 20:53 74 160/68 12/23/18 20:00 72 18 98 Room Air 21 12/23/18 20:00 99.0 74 20 162/68 (99) 97 12/23/18 19:45 69 18 95 Room Air 21 Intake and Output 12/23/18 12/24/18 18:59 06:59 Intake Total 605 ml 1130 ml Output Total 500 ml 750 ml Balance 105 ml 380 ml Intake Oral 530 ml 320 ml IV Total 75 ml 810 ml Output Urine Total 500 ml 750 ml # Voids 4 4 # Bowel Movements 1 General Appearance: WD/WN HEENT: normocephalic, atraumatic Respiratory/Chest: chest wall non-tender, lungs clear Cardiovascular: normal peripheral pulses, normal rate Abdomen: soft, non tender Extremities: no cyanosis Skin: no rash Laboratory Tests 12/24/18 05:05: White Blood Count 4.9, Red Blood Count 3.12L, Hemoglobin 9.9L, Hematocrit 31.0L , Mean Corpuscular Volume 99, Mean Corpuscular Hemoglobin 31.8H, Mean Corpuscular Hemoglobin Concent 32.0, Red Cell Distribution Width 12.5, Platelet Count 92L, Mean Platelet Volume 9.1, Neutrophils (%) (Auto) , Lymphocytes (%) ( Auto) , Monocytes (%) (Auto) , Eosinophils (%) (Auto) , Basophils (%) (Auto) , Differential Total Cells Counted 100, Neutrophils % (Manual) 63, Lymphocytes % ( Manual) 24, Monocytes % (Manual) 9, Eosinophils % (Manual) 4H, Basophils % ( Manual) 0, Band Neutrophils 0, Platelet Estimate DecreasedL, Platelet Morphology Normal, Macrocytosis 1+, Sodium Level 143, Potassium Level 3.9, Chloride Level 109H, Carbon Dioxide Level 27, Anion Gap 7, Blood Urea Nitrogen 41H, Creatinine 1.6H, Estimat Glomerular Filtration Rate , Glucose Level 149H, Uric Acid 9.6H, Calcium Level 8.3L, Phosphorus Level 2.2L, Magnesium Level 1.9, Total Bilirubin 0.3, Aspartate Amino Transf (AST/SGOT) 28, Alanine Aminotransferase (ALT/SGPT) 22, Alkaline Phosphatase 54, Troponin I 0.001, Total Protein 6.2L, Albumin 2.8L, Globulin 3.4, Albumin/Globulin Ratio 0.8L Current Medications Medications (Trade) Dose Ordered Sig/Sallie Route PRN Reason Start Time Stop Time Status Last Admin Dose Admin Acetaminophen (Tylenol) 650 mg Q4H PRN ORAL fever 12/20/18 20:30 01/19/19 20:29 Albuterol/ Ipratropium (Albuterol/ Ipratropium) 3 ml Q6HRT HHN 12/21/18 01:00 12/26/18 00:59 12/24/18 13:58 Amlodipine Besylate (Norvasc) 10 mg DAILY ORAL 12/21/18 09:00 01/20/19 08:59 12/24/18 08:13 Atorvastatin Calcium (Lipitor) 20 mg BEDTIME ORAL 12/21/18 21:00 01/20/19 20:59 12/23/18 20:54 Bisacodyl (Dulcolax) 5 mg DAILY ORAL 12/21/18 09:00 01/20/19 08:59 12/23/18 08:34 Carvedilol (Coreg) 12.5 mg EVERY 12 HOURS ORAL 12/21/18 09:00 01/20/19 08:59 12/24/18 08:13 Ceftriaxone Sodium 1 gm/ Dextrose 55 ml @ 110 mls/hr Q24H IVPB 12/22/18 14:00 12/29/18 13:59 12/24/18 13:21 Clonidine HCl (Catapres Tab) 0.1 mg Q4H PRN ORAL bp over 165 syst 12/21/18 11:45 01/20/19 11:44 Clonidine HCl (Catapres Tab) 0.1 mg Q8H ORAL 12/22/18 08:00 01/21/19 07:59 12/24/18 16:00 Dextrose (Dextrose 50%) 25 ml Q30M PRN IV Hypoglycemia 12/20/18 20:30 01/19/19 20:29 Dextrose (Dextrose 50%) 50 ml Q30M PRN IV Hypoglycemia 12/20/18 20:30 01/19/19 20:29 Diphenhydramine HCl (Benadryl) 25 mg Q6H PRN ORAL Itching/Pruritis 12/20/18 20:30 01/19/19 20:29 Docusate Sodium (Colace) 100 mg THREE TIMES A DAY ORAL 12/21/18 18:00 01/20/19 17:59 12/23/18 13:37 Folic Acid (Folate) 3 mg DAILY ORAL 12/23/18 10:00 01/22/19 09:59 12/24/18 08:13 Heparin Sodium (Porcine) (Heparin 5000 units/ml) 5,000 units EVERY 12 HOURS SUBQ 12/21/18 09:00 01/19/19 21:46 12/22/18 21:33 Hydralazine HCl (Apresoline) 75 mg Q8HR ORAL 12/24/18 14:00 01/20/19 08:59 12/24/18 13:26 Hydromorphone HCl (Dilaudid) 2 mg Q6H PRN IVP Moderate Pain (Pain Scale 4-6) 12/21/18 18:00 12/28/18 17:59 12/22/18 15:11 Insulin Aspart (NovoLOG) BEFORE MEALS AND HS SUBQ 12/21/18 06:30 01/20/19 06:29 12/24/18 17:13 Ipratropium [place] (Atrovent) 500 mcg Q8H PRN HHN Bronchospasm 12/20/18 20:30 12/25/18 20:29 Iron Sucrose 100 mg/Sodium Chloride 60 ml @ 240 mls/hr BEDTIME IV 12/22/18 21:00 12/26/18 21:14 12/23/18 21:06 Isosorbide Mononitrate (Imdur) 60 mg DAILY ORAL 12/21/18 11:45 01/20/19 11:44 12/24/18 08:14 Lorazepam (Ativan 2mg/ml 1ml) 0.5 mg Q4H PRN IV For Anxiety 12/20/18 20:30 12/27/18 20:29 Nitroglycerin (Ntg) 0.4 mg Q5M X 3 DOSES PRN SL Prn Chest Pain 12/20/18 20:30 01/19/19 20:29 Ondansetron HCl (Zofran) 4 mg Q6H PRN IVP Nausea & Vomiting 12/20/18 20:30 01/19/19 20:29 Pantoprazole (Protonix) 40 mg EVERY 12 HOURS ORAL 12/21/18 21:00 01/20/19 20:59 12/24/18 08:13 Sodium Chloride 1,000 ml @ 75 mls/hr [id number] IVLG 12/22/18 11:00 01/19/19 10:59 12/24/18 03:35 Tamsulosin HCl (Flomax) 0.4 mg BID ORAL 12/21/18 11:45 01/20/19 11:44 12/24/18 17:10 Zolpidem Tartrate (Ambien) 5 mg HSPRN PRN ORAL Insomnia 12/20/18 20:30 12/27/18 20:29 12/24/18 01:58 Adam Moyer MD Dec 24, 2018 19:35
[2018-12-24 20:00] VITALS: BP 178/62
--- NOTE | 2018-12-24 20:01 | NUR ---
NURSE NOTES: Patient in bed awake and oriented. BP 176/68 will give PRN BP meds when available. IV site clean and intact. Repositioned for comfort. Needs attended. In stable condition.
[2018-12-24] MEDS: Iron Sucrose 100 MG in NS 55 ML IV SCH (20:15)
[2018-12-24] MEDS: Atorvastatin 20mg tab ORAL SCH (20:16)
[2018-12-25] VITALS: BP 170/78
[2018-12-25] MEDS: Albuterol/Ipratropium 3ml neb HHN SCH ×4 (01:00→18:49)
[2018-12-25 04:00] VITALS: BP 155/82
[2018-12-25] MEDS: NovoLOG Insulin Flexpen SUBQ SCH ×4 (05:45→21:02)
[2018-12-25] MEDS: HydrALAZINE 25mg tab ORAL SCH ×3 (05:46→21:10)
[2018-12-25 06:45] LABS: HEMATOCRIT 33.2 % (42.0-52.0); HEMOGLOBIN 10.7 G/DL (14.2-18.0); MEAN CORPUSCULAR VOLUME 99 FL (80-99); PLATELET COUNT 86 K/UL (150-450); RED BLOOD COUNT 3.36 M/UL (4.70-6.10); RED CELL DISTRIBUTION WIDTH 12.8 % (11.6-14.8); WHITE BLOOD COUNT 5.2 K/UL (4.8-10.8)
[2018-12-25 06:52] LABS: ANION GAP 6 mmol/L (5-15); BLOOD UREA NITROGEN 32 mg/dL (7-18); CALCIUM 8.6 MG/DL (8.5-10.1); CARBON DIOXIDE 28 MMOL/L (21-32); CHLORIDE 110 MMOL/L (98-107); CREATININE 1.4 MG/DL (0.55-1.30); SODIUM 144 MMOL/L (136-145)
--- NOTE | 2018-12-25 07:30 | NUR ---
NURSE NOTES: Patient in bed awake and able to verbalize needs. Stable. Complains of 5/10 pain, will administer pain medication as ordered. Patient is in bed in locked and lowest position with call light within reach. All safety measures provided. Will continue to monitor.
[2018-12-25 08:00] VITALS: BP 195/146
[2018-12-25] MEDS: Docusate 100mg cap ORAL SCH ×3 (08:03→17:42)
[2018-12-25] MEDS: Bisacodyl EC 5mg tab ORAL SCH (08:04)
--- NOTE | 2018-12-25 08:11 | NUR ---
PARKING LINE PAINTER Co-Signature Notes: Reviewed patient's chart. Reviewed and approved PARKING LINE PAINTER notes Addendum: 12/25/18 at 0811 by WILLIAM PEDROZA PT,MG Amended: Links added.
[2018-12-25] MEDS: Heparin 5000 units/ml inj SUBQ SCH ×2 (09:00→21:00)
--- NOTE | 2018-12-25 09:04 | General Progress Note ---
Assessment/Plan Problem List: (1) CHF (congestive heart failure) ICD Codes: I50.9 - Heart failure, unspecified SNOMED: 64062619 (2) Weak ICD Codes: R53.1 - Weakness SNOMED: 91796882 (3) Bladder mass ICD Codes: N32.89 - Other specified disorders of bladder SNOMED: 459079770 (4) Diabetes ICD Codes: E11.9 - Type 2 diabetes mellitus without complications SNOMED: 12299949 (5) HTN (hypertension) ICD Codes: I10 - Essential (primary) hypertension SNOMED: 99418565 (6) Anemia ICD Codes: D64.9 - Anemia, unspecified SNOMED: 227313637 (7) ARF (acute renal failure) ICD Codes: N17.9 - Acute kidney failure, unspecified SNOMED: 96637983 (8) UTI (urinary tract infection) ICD Codes: N39.0 - Urinary tract infection, site not specified SNOMED: 23651359, 8657029 (9) Hypertension ICD Codes: I10 - Essential (primary) hypertension SNOMED: 23272979 (10) ATN (acute tubular necrosis) ICD Codes: N17.0 - Acute kidney failure with tubular necrosis SNOMED: 02178265 Status: stable, progressing Assessment/Plan: bp bs control abx uro heme f/u cbc bmp am Subjective Constitutional: Reports: weakness Allergies: Coded Allergies: No Known Allergies (Unverified , 12/20/18) All Systems: reviewed and negative except above Subjective calm in bed Objective Last 24 Hour Vital Signs Date Time Temp Pulse Resp B/P (MAP) Pulse Ox O2 Delivery O2 Flow Rate FiO2 12/25/18 08:13 176/61 12/25/18 07:47 67 18 100 Room Air 12/25/18 07:37 67 18 99 Room Air 12/25/18 05:46 155/82 12/25/18 04:00 98.0 69 17 155/82 (106) 99 12/25/18 01:01 Room Air 12/25/18 01:01 Room Air 12/25/18 00:00 98.3 68 18 170/78 (108) 100 12/24/18 23:15 179/84 12/24/18 21:35 179/84 12/24/18 21:00 Room Air 12/24/18 20:16 82 178/72 12/24/18 20:11 69 18 99 Room Air 21 12/24/18 20:01 72 18 97 Room Air 21 12/24/18 20:00 98.6 71 18 178/62 (100) 100 12/24/18 16:00 167/71 12/24/18 16:00 98.0 75 19 169/71 (103) 96 12/24/18 13:56 68 18 99 Room Air 21 12/24/18 13:56 67 18 97 Room Air 21 12/24/18 13:26 Room Air 21 12/24/18 13:26 155/61 12/24/18 13:26 Room Air 21 12/24/18 12:00 97.5 70 17 113/58 (76) 96 Intake and Output 12/24/18 12/25/18 19:00 07:00 Intake Total 750 ml 675 ml Output Total 500 ml 1850 ml Balance 250 ml -1175 ml Intake Oral 600 ml IV Total 150 ml 675 ml Output Urine Total 500 ml 1850 ml # Bowel Movements 1 Laboratory Tests 12/25/18 05:45: White Blood Count 5.2, Red Blood Count 3.36L, Hemoglobin 10.7L, Hematocrit 33.2L , Mean Corpuscular Volume 99, Mean Corpuscular Hemoglobin 31.7H, Mean Corpuscular Hemoglobin Concent 32.1, Red Cell Distribution Width 12.8, Platelet Count 86L, Mean Platelet Volume 9.4, Neutrophils (%) (Auto) , Lymphocytes (%) ( Auto) , Monocytes (%) (Auto) , Eosinophils (%) (Auto) , Basophils (%) (Auto) , Differential Total Cells Counted 100, Neutrophils % (Manual) 61, Lymphocytes % ( Manual) 25, Monocytes % (Manual) 12H, Eosinophils % (Manual) 1, Basophils % ( Manual) 1, Band Neutrophils 0, Platelet Estimate DecreasedL, Platelet Morphology Normal, Hypochromasia 1+, Anisocytosis 1+, Sodium Level 144, Potassium Level 4.0, Chloride Level 110H, Carbon Dioxide Level 28, Anion Gap 6, Blood Urea Nitrogen 32H, Creatinine 1.4H, Estimat Glomerular Filtration Rate , Glucose Level 152H, Calcium Level 8.6 Height (Feet): 6 Height (Inches): 0.00 Weight (Pounds): 180 General Appearance: lethargic EENT: normal ENT inspection Neck: normal alignment Cardiovascular: normal peripheral pulses, normal rate, regular rhythm Respiratory/Chest: chest wall non-tender, lungs clear, normal breath sounds Abdomen: normal bowel sounds, non tender, soft Extremities: normal inspection Edema: 1+ Arm (L), 1+ Arm (R), 1+ Leg (L), 1+ Leg (R), 1+ Pedal (L), 1+ Pedal ( R), 1+ Generalized Neurologic: responsive, motor weakness Skin: normal pigmentation, warm/dry Jamie Gray DO Dec 25, 2018 09:04
[2018-12-25] MEDS: Tamsulosin 0.4mg cap ORAL SCH ×2 (09:14→17:42)
[2018-12-25] MEDS: Carvedilol 12.5mg tab ORAL SCH ×2 (09:15→21:00)
[2018-12-25] MEDS: Imdur 30mg tab ORAL SCH (09:15)
--- NOTE | 2018-12-25 10:58 | Hematology/Onc Progress Note ---
Assessment/Plan Assessment/Plan Assessment and Recs: # Multiple bladder masses CT shows Scattered eccentric mural thickening/masses in the urinary bladder wall, correlating with findings on recent ultrasound. No significant perivesical stranding. Recommend further evaluation with cystoscopy. --> urology consulted, recs for cysto --> may need cystoscopy, eval for resection --> plan for cysto, bladder tumor resection Tuesday/Tuesday --> if not able for full resection, may need treatment, chemo # Thrombocytopenia - potential causes multifactorial, evaluate liver and viral etiologies to begin, also could be related to underlying medications patient has received. --> Hep panel and HIV -> NEGATIVE --> US abd showed bladder masses--> CT a/p without contrast pending --> Peripheral smear ordered to evaluate for blasts /schistocytes --> abx and other meds have been reviewed --> ok for ppx if plt >50k w/ either heparin or lovenox --> Transfuse if Plt < 20k and fever, or if Plt < 10k without fever # Anemia of iron deficiency likely due to hematuria --> iv iron started x 5 days low ferritin --> likely due to hematuria --> have started on ivf and consider uro prn cysto # Acute renal injury --> cr has improved 2.3-->1.8-->2.3->1.6-->1.4 --> per renal recs --> volume expansion # HTN --> cards consulted # Hematuria # UTI (urinary tract infection) # Dehydration The timing of this note does not necessarily reflect the time of the patient was seen. GREATLY APPRECIATE CONSULTATION. Subjective Constitutional: Denies: no symptoms, chills, fever, malaise, weakness, other HEENT: Denies: no symptoms, eye pain, blurred vision, tearing, double vision, ear pain, ear discharge, nose pain, nose congestion, throat pain, throat swelling, mouth pain, mouth swelling, other Cardiovascular: Denies: no symptoms, chest pain, edema, irregular heart rate, lightheadedness, palpitations, syncope, other Gastrointestinal/Abdominal: Denies: no symptoms, abdomen distended, abdominal pain, black stools, tarry stools, blood in stool, constipated, diarrhea, difficulty swallowing, nausea, poor appetite, poor fluid intake, rectal bleeding , vomiting, other Genitourinary: Denies: no symptoms, burning, discharge, frequency, flank pain, hematuria, incontinence, pain, urgency, other Neurologic/Psychiatric: Denies: no symptoms, anxiety, depressed, emotional problems, headache, numbness, paresthesia, pre-existing deficit, seizure, tingling, tremors, weakness, other Endocrine: Denies: no symptoms, excessive sweating, flushing, intolerance to cold, intolerance to heat, increased hunger, increased thirst, increased urine, unexplained weight gain, unexplained weight loss, other Allergies: Coded Allergies: No Known Allergies (Unverified , 12/20/18) Subjective 12/22: no events noted, no bleeding, ct ordered for the us findings with multiple masses in bladder, cysto recommended 12/24: no events, no bleeding, no night sweats noted, no chills reported 12/25: no fevers, no chills, no major changes, cysto for /tue Objective Objective Current Medications Medications (Trade) Dose Ordered Sig/Sallie Route PRN Reason Start Time Stop Time Status Last Admin Dose Admin Acetaminophen (Tylenol) 650 mg Q4H PRN ORAL fever 12/20/18 20:30 01/19/19 20:29 Albuterol/ Ipratropium (Albuterol/ Ipratropium) 3 ml Q6HRT HHN 12/21/18 01:00 12/26/18 00:59 12/25/18 07:37 Amlodipine Besylate (Norvasc) 10 mg DAILY ORAL 12/21/18 09:00 01/20/19 08:59 12/25/18 09:15 Atorvastatin Calcium (Lipitor) 20 mg BEDTIME ORAL 12/21/18 21:00 01/20/19 20:59 12/24/18 20:16 Bisacodyl (Dulcolax) 5 mg DAILY ORAL 12/21/18 09:00 01/20/19 08:59 12/23/18 08:34 Carvedilol (Coreg) 12.5 mg EVERY 12 HOURS ORAL 12/21/18 09:00 01/20/19 08:59 12/25/18 09:15 Ceftriaxone Sodium 1 gm/ Dextrose 55 ml @ 110 mls/hr Q24H IVPB 12/22/18 14:00 12/29/18 13:59 12/24/18 13:21 Clonidine HCl (Catapres Tab) 0.1 mg Q4H PRN ORAL bp over 165 syst 12/21/18 11:45 01/20/19 11:44 Clonidine HCl (Catapres Tab) 0.1 mg Q8H ORAL 12/22/18 08:00 01/21/19 07:59 12/25/18 08:13 Dextrose (Dextrose 50%) 25 ml Q30M PRN IV Hypoglycemia 12/20/18 20:30 01/19/19 20:29 Dextrose (Dextrose 50%) 50 ml Q30M PRN IV Hypoglycemia 12/20/18 20:30 01/19/19 20:29 Diphenhydramine HCl (Benadryl) 25 mg Q6H PRN ORAL Itching/Pruritis 12/20/18 20:30 01/19/19 20:29 Docusate Sodium (Colace) 100 mg THREE TIMES A DAY ORAL 12/21/18 18:00 01/20/19 17:59 12/23/18 13:37 Folic Acid (Folate) 3 mg DAILY ORAL 12/23/18 10:00 01/22/19 09:59 12/25/18 09:14 Heparin Sodium (Porcine) (Heparin 5000 units/ml) 5,000 units EVERY 12 HOURS SUBQ 12/21/18 09:00 01/19/19 21:46 12/22/18 21:33 Hydralazine HCl (Apresoline) 75 mg Q8HR ORAL 12/24/18 14:00 01/20/19 08:59 12/25/18 05:46 Hydromorphone HCl (Dilaudid) 2 mg Q6H PRN IVP Moderate Pain (Pain Scale 4-6) 12/21/18 18:00 12/28/18 17:59 12/25/18 08:11 Insulin Aspart (NovoLOG) BEFORE MEALS AND HS SUBQ 12/21/18 06:30 01/20/19 06:29 12/25/18 05:45 Ipratropium [place] (Atrovent) 500 mcg Q8H PRN HHN Bronchospasm 12/20/18 20:30 12/25/18 20:29 Iron Sucrose 100 mg/Sodium Chloride 60 ml @ 240 mls/hr BEDTIME IV 12/22/18 21:00 12/26/18 21:14 12/24/18 20:15 Isosorbide Mononitrate (Imdur) 60 mg DAILY ORAL 12/21/18 11:45 01/20/19 11:44 12/25/18 09:15 Lorazepam (Ativan 2mg/ml 1ml) 0.5 mg Q4H PRN IV For Anxiety 12/20/18 20:30 12/27/18 20:29 Nitroglycerin (Ntg) 0.4 mg Q5M X 3 DOSES PRN SL Prn Chest Pain 12/20/18 20:30 01/19/19 20:29 Ondansetron HCl (Zofran) 4 mg Q6H PRN IVP Nausea & Vomiting 12/20/18 20:30 01/19/19 20:29 Pantoprazole (Protonix) 40 mg EVERY 12 HOURS ORAL 12/21/18 21:00 01/20/19 20:59 12/25/18 09:14 Sodium Chloride 1,000 ml @ 75 mls/hr [id number] IVLG 12/22/18 11:00 01/19/19 10:59 12/25/18 05:46 Tamsulosin HCl (Flomax) 0.4 mg BID ORAL 12/21/18 11:45 01/20/19 11:44 12/25/18 09:14 Zolpidem Tartrate (Ambien) 5 mg HSPRN PRN ORAL Insomnia 12/20/18 20:30 12/27/18 20:29 12/24/18 01:58 Last 24 Hour Vital Signs Date Time Temp Pulse Resp B/P (MAP) Pulse Ox O2 Delivery O2 Flow Rate FiO2 12/25/18 09:15 195/146 12/25/18 09:15 61 195/146 12/25/18 09:15 61 195/146 12/25/18 08:13 176/61 12/25/18 07:47 67 18 100 Room Air 12/25/18 07:37 67 18 99 Room Air 12/25/18 05:46 155/82 12/25/18 04:00 98.0 69 17 155/82 (106) 99 12/25/18 01:01 Room Air 21 12/25/18 01:01 Room Air 21 12/25/18 00:00 98.3 68 18 170/78 (108) 100 8/11/19 23:15 179/84 12/24/18 21:35 179/84 12/24/18 21:00 Room Air 12/24/18 20:16 82 178/72 12/24/18 20:11 69 18 99 Room Air 21 12/24/18 20:01 72 18 97 Room Air 21 12/24/18 20:00 98.6 71 18 178/62 (100) 100 12/24/18 16:00 167/71 12/24/18 16:00 98.0 75 19 169/71 (103) 96 12/24/18 13:56 68 18 99 Room Air 21 12/24/18 13:56 67 18 97 Room Air 21 12/24/18 13:26 Room Air 21 12/24/18 13:26 155/61 12/24/18 13:26 Room Air 21 12/24/18 12:00 97.5 70 17 113/58 (76) 96 12/24/18 09:00 Room Air 12/24/18 08:14 165/75 12/24/18 08:13 165/75 12/24/18 08:13 74 165/75 12/24/18 08:13 74 165/75 12/24/18 08:00 97.8 74 18 165/75 (105) 96 12/24/18 07:43 73 18 100 Room Air 12/24/18 07:42 71 18 100 Room Air 12/24/18 06:17 168/70 12/24/18 04:00 97.6 64 20 168/70 (102) 96 12/24/18 01:49 78 18 100 Room Air 12/24/18 01:37 76 18 97 Room Air 21 12/24/18 00:00 99.3 72 20 160/62 (94) 100 12/23/18 23:49 160/62 12/23/18 22:05 160/77 12/23/18 21:00 Room Air 12/23/18 20:53 74 160/68 12/23/18 20:00 72 18 98 Room Air 21 12/23/18 20:00 99.0 74 20 162/68 (99) 97 12/23/18 19:45 69 18 95 Room Air 21 12/23/18 17:47 144/66 12/23/18 16:00 99.2 68 18 154/54 (87) 96 12/23/18 13:37 144/66 12/23/18 12:19 73 18 99 Room Air 21 12/23/18 12:08 67 16 96 Room Air 21 12/23/18 12:00 98.6 75 18 144/66 (92) 75 Intake and Output 12/24/18 12/25/18 19:00 07:00 Intake Total 750 ml 675 ml Output Total 500 ml 1850 ml Balance 250 ml -1175 ml Intake Oral 600 ml IV Total 150 ml 675 ml Output Urine Total 500 ml 1850 ml # Bowel Movements 1 Labs Test 12/23/18 05:35 12/24/18 05:05 12/25/18 05:45 White Blood Count 6.0 K/UL (4.8-10.8) 4.9 K/UL (4.8-10.8) 5.2 K/UL (4.8-10.8) Red Blood Count 3.32 M/UL (4.70-6.10) 3.12 M/UL (4.70-6.10) 3.36 M/UL (4.70-6.10) Hemoglobin 10.5 G/DL (14.2-18.0) 9.9 G/DL (14.2-18.0) 10.7 G/DL (14.2-18.0) Hematocrit 32.9 % (42.0-52.0) 31.0 % (42.0-52.0) 33.2 % (42.0-52.0) Mean Corpuscular Volume 99 FL (80-99) 99 FL (80-99) 99 FL (80-99) Mean Corpuscular Hemoglobin 31.5 PG (27.0-31.0) 31.8 PG (27.0-31.0) 31.7 PG (27.0-31.0) Mean Corpuscular Hemoglobin Concent 31.8 G/DL (32.0-36.0) 32.0 G/DL (32.0-36.0) 32.1 G/DL (32.0-36.0) Red Cell Distribution Width 12.6 % (11.6-14.8) 12.5 % (11.6-14.8) 12.8 % (11.6-14.8) Platelet Count 92 K/UL (150-450) 92 K/UL (150-450) 86 K/UL (150-450) Mean Platelet Volume 9.2 FL (6.5-10.1) 9.1 FL (6.5-10.1) 9.4 FL (6.5-10.1) Neutrophils (%) (Auto) % (45.0-75.0) % (45.0-75.0) % (45.0-75.0) Lymphocytes (%) (Auto) % (20.0-45.0) % (20.0-45.0) % (20.0-45.0) Monocytes (%) (Auto) % (1.0-10.0) % (1.0-10.0) % (1.0-10.0) Eosinophils (%) (Auto) % (0.0-3.0) % (0.0-3.0) % (0.0-3.0) Basophils (%) (Auto) % (0.0-2.0) % (0.0-2.0) % (0.0-2.0) Differential Total Cells Counted 100 100 100 Neutrophils % (Manual) 69 % (45-75) 63 % (45-75) 61 % (45-75) Lymphocytes % (Manual) 22 % (20-45) 24 % (20-45) 25 % (20-45) Monocytes % (Manual) 8 % (1-10) 9 % (1-10) 12 % (1-10) Eosinophils % (Manual) 1 % (0-3) 4 % (0-3) 1 % (0-3) Basophils % (Manual) 0 % (0-2) 0 % (0-2) 1 % (0-2) Band Neutrophils 0 % (0-8) 0 % (0-8) 0 % (0-8) Platelet Estimate Decreased Decreased Decreased Platelet Morphology Normal Normal Normal Macrocytosis 1+ 1+ Sodium Level 143 MMOL/L (136-145) 143 MMOL/L (136-145) 144 MMOL/L (136-145) Potassium Level 4.1 MMOL/L (3.5-5.1) 3.9 MMOL/L (3.5-5.1) 4.0 MMOL/L (3.5-5.1) Chloride Level 108 MMOL/L (98-107) 109 MMOL/L (98-107) 110 MMOL/L (98-107) Carbon Dioxide Level 29 MMOL/L (21-32) 27 MMOL/L (21-32) 28 MMOL/L (21-32) Anion Gap 6 mmol/L (5-15) 7 mmol/L (5-15) 6 mmol/L (5-15) Blood Urea Nitrogen 51 mg/dL (7-18) 41 mg/dL (7-18) 32 mg/dL (7-18) Creatinine 2.0 MG/DL (0.55-1.30) 1.6 MG/DL (0.55-1.30) 1.4 MG/DL (0.55-1.30) Estimat Glomerular Filtration Rate mL/min (>60) mL/min (>60) mL/min (>60) Glucose Level 134 MG/DL (74-106) 149 MG/DL (74-106) 152 MG/DL (74-106) Uric Acid 9.9 MG/DL (2.6-7.2) 9.6 MG/DL (2.6-7.2) Calcium Level 8.1 MG/DL (8.5-10.1) 8.3 MG/DL (8.5-10.1) 8.6 MG/DL (8.5-10.1) Phosphorus Level 3.1 MG/DL (2.5-4.9) 2.2 MG/DL (2.5-4.9) Magnesium Level 1.8 MG/DL (1.8-2.4) 1.9 MG/DL (1.8-2.4) Total Bilirubin 0.4 MG/DL (0.2-1.0) 0.3 MG/DL (0.2-1.0) Aspartate Amino Transf (AST/SGOT) 30 U/L (15-37) 28 U/L (15-37) Alanine Aminotransferase (ALT/SGPT) 25 U/L (12-78) 22 U/L (12-78) Alkaline Phosphatase 56 U/L (46-116) 54 U/L (46-116) C-Reactive Protein, Quantitative 1.6 mg/dL (0.00-0.90) Total Protein 6.4 G/DL (6.4-8.2) 6.2 G/DL (6.4-8.2) Albumin 2.9 G/DL (3.4-5.0) 2.8 G/DL (3.4-5.0) Globulin 3.5 g/dL 3.4 g/dL Albumin/Globulin Ratio 0.8 (1.0-2.7) 0.8 (1.0-2.7) Troponin I 0.001 ng/mL (0.000-0.056) Hypochromasia 1+ Anisocytosis 1+ Height (Feet): 6 Height (Inches): 0.00 Weight (Pounds): 180 Objective Physical Exam: Vitals: reviewed General Appearance: NAD HEENT: normocephalic, atraumatic Neck: non-tender, normal alignment Respiratory/Chest: normal breath sounds bilaterally Cardiovascular/Chest: normal peripheral pulses, normal rate Abdomen: normal bowel sounds, soft, nontender Extremities: normal range of motion + clots noted in urinal Skin: no rash Marcelo Mcallister MD Dec 25, 2018 10:58
--- NOTE | 2018-12-25 11:54 | Nephrology Progress Note ---
Assessment/Plan Problem List: (1) Acute renal injury Assessment: Cr lowering (2) Gross hematuria (3) Bladder mass (4) Hypertension (5) Diabetes Assessment ANGELA - HTN OOC - Hematuria- Likely UTI Dehydration DM CAD Plan Uro eval noted Urine culture- Flomax Rocephin Slow hydrate 2D echo Keep BP and BS in check per orders Multiple masslike lesions within the bladder. Further evaluation with cystoscopy is recommended to evaluate for possible neoplasm. Multiple parapelvic renal cysts Subjective ROS Limited/Unobtainable: No Constitutional: Reports: other - feels stronger Objective Objective Last 24 Hour Vital Signs Date Time Temp Pulse Resp B/P (MAP) Pulse Ox O2 Delivery O2 Flow Rate FiO2 12/25/18 09:15 195/146 12/25/18 09:15 61 195/146 12/25/18 09:15 61 195/146 12/25/18 08:13 176/61 12/25/18 07:47 67 18 100 Room Air 12/25/18 07:37 67 18 99 Room Air 12/25/18 05:46 155/82 12/25/18 04:00 98.0 69 17 155/82 (106) 99 12/25/18 01:01 Room Air 12/25/18 01:01 Room Air 12/25/18 00:00 98.3 68 18 170/78 (108) 100 12/24/18 23:15 179/84 12/24/18 21:35 179/84 12/24/18 21:00 Room Air 12/24/18 20:16 82 178/72 12/24/18 20:11 69 18 99 Room Air 12/24/18 20:01 72 18 97 Room Air 12/24/18 20:00 98.6 71 18 178/62 (100) 100 12/24/18 16:00 167/71 12/24/18 16:00 98.0 75 19 169/71 (103) 96 12/24/18 13:56 68 18 99 Room Air 12/24/18 13:56 67 18 97 Room Air 21 12/24/18 13:26 Room Air 21 12/24/18 13:26 155/61 12/24/18 13:26 Room Air 21 12/24/18 12:00 97.5 70 17 113/58 (76) 96 Intake and Output 12/24/18 12/25/18 19:00 07:00 Intake Total 750 ml 675 ml Output Total 500 ml 1850 ml Balance 250 ml -1175 ml Intake Oral 600 ml IV Total 150 ml 675 ml Output Urine Total 500 ml 1850 ml # Bowel Movements 1 Laboratory Tests 12/25/18 05:45: White Blood Count 5.2, Red Blood Count 3.36L, Hemoglobin 10.7L, Hematocrit 33.2L , Mean Corpuscular Volume 99, Mean Corpuscular Hemoglobin 31.7H, Mean Corpuscular Hemoglobin Concent 32.1, Red Cell Distribution Width 12.8, Platelet Count 86L, Mean Platelet Volume 9.4, Neutrophils (%) (Auto) , Lymphocytes (%) ( Auto) , Monocytes (%) (Auto) , Eosinophils (%) (Auto) , Basophils (%) (Auto) , Differential Total Cells Counted 100, Neutrophils % (Manual) 61, Lymphocytes % ( Manual) 25, Monocytes % (Manual) 12H, Eosinophils % (Manual) 1, Basophils % ( Manual) 1, Band Neutrophils 0, Platelet Estimate DecreasedL, Platelet Morphology Normal, Hypochromasia 1+, Anisocytosis 1+, Sodium Level 144, Potassium Level 4.0, Chloride Level 110H, Carbon Dioxide Level 28, Anion Gap 6, Blood Urea Nitrogen 32H, Creatinine 1.4H, Estimat Glomerular Filtration Rate , Glucose Level 152H, Calcium Level 8.6 Height (Feet): 6 Height (Inches): 0.00 Weight (Pounds): 180 General Appearance: no apparent distress Cardiovascular: normal rate Respiratory/Chest: lungs clear Abdomen: distended Objective no change Russell Sofia MD Dec 25, 2018 11:54
[2018-12-25 12:00] VITALS: BP 124/88
[2018-12-25] MEDS ORDERED: Minoxidil 2.5mg tab ORAL PRN (12:00)
--- NOTE | 2018-12-25 13:29 | Cardiology Report ---
APPROVED REPORT EXAM: Two-dimensional and M-mode echocardiogram with Doppler and color Doppler. INDICATION Congestive Heart Failure M-Mode DIMENSIONS IVSd1.3 (0.7-1.1cm)Left Atrium (MM)4.6 (1.6-4.0cm) LVDd4.4 (3.5-5.6cm)Aortic Root3.1 (2.0-3.7cm) PWd1.7 (0.7-1.1cm)Aortic Cusp Exc.1.5 (1.5-2.0cm) LVDs2.3 (2.5-4.0cm) PWs2.0 cm Technically difficult study due to poor acoustic windows. Study quality precludes accurate assessment of regional wall motion. Normal left ventricular chamber size, systolic function and wall motion. Left ventricular ejection fraction estimated to be 65 %. Mild left ventricular hypertrophy. No evidence of pericardial effusion. Mild left atrial enlargement. Right cardiac chamber sizes are within normal limits. Aortic valve calcification with decreased cusp excursion c/w aortic stenosis. Thickened mitral valve leaflets with normal excursion. Mitral annulus and aortic root calcification. Pulmonic valve not well visualized. Normal tricuspid valve structure. Subcostal views not obtainable. A color flow and spectral Doppler study was performed and revealed: Trace aortic regurgitation. Peak aortic valve gradient of 31 mmHg and a mean of14 mmHg. Aortic valve area 1.5 cm2 calculated by continuity equation. Trace mitral regurgitation. Mitral diastolic velocities suggest mild left ventricular diastolic dysfunction (Grade I). Trace tricuspid regurgitation. Tricuspid systolic velocities suggests peak right ventricular systolic pressure of 16 mmHg. Trace pulmonic regurgitation present.
[2018-12-25] MEDS: cefTRIAXone 1 GM in D5W 55 ML IVPB SCH (14:39)
--- NOTE | 2018-12-25 14:48 | NUR ---
RD ASSESSMENT & RECOMMENDATIONS SEE CARE ACTIVITY FOR COMPLETE ASSESSMENT DAILY ESTIMATED NEEDS: Needs based on Morbid obesity, renal 89kg adj 20-25 kcals/kg 1261-4054 total kcals 1-1.5 g protein/kg 89-134 g total protein 25-30 mL/kg 4025-6403 total fluid mLs NUTRITION DIAGNOSIS: 1) Obesity etiology unknown as evidenced by BMI >40, pt is est @172% of [place] Body Weight. 2) Altered nutrition related lab values r/t clinical status as evidenced by A1C 6.1, elev BP (195/146), elev BNP, elev Creat (1.4). CURRENT DIET: CCHO MED PO DIET RECOMMENDATIONS: CCHO MED/ CARDIAC + DOUBLE PRO PORTIONS ----- ADDITIONAL RECOMMENDATIONS: 1) Obtain an accurate wt -> Pt does NOT appear c/w BMI 24.4 per EMR 2) Monitor lytes, need for renal diet restrictions 3) A1C 6.1, rec hypoglycemics + accuchecks
[2018-12-25 16:00] VITALS: BP 166/73
--- NOTE | 2018-12-25 18:50 | Cardiac Electrophysiology PN ---
Assessment/Plan Assessment/Plan 1. Accelerated hypertension with blood pressure of around 200. On clonidine 0.1 q8, Norvasc 10 daily, Lasix 40 mg bid, Coreg 25 bid, losartan 100 daily, Imdur 20 daily and p.r.n. hydralazine. 2. History of CAD. Echo Nl EF 3. Hyperlipidemia on Lipitor. 4. Renal failure. Further evaluation by Nephrology. 5. Hematuria. US. Multiple masslike lesions within the bladder. Cystoscopy is pending to evaluate for possible neoplasm. FU Urology DW RN Subjective Subjective No new events.Still has hematuria. No CP Objective Last 24 Hour Vital Signs Date Time Temp Pulse Resp B/P (MAP) Pulse Ox O2 Delivery O2 Flow Rate FiO2 12/25/18 16:02 166/73 12/25/18 16:00 98.3 63 21 166/73 (104) 98 12/25/18 14:39 157/65 12/25/18 14:02 75 18 100 Room Air 12/25/18 13:50 72 20 94 Room Air 21 12/25/18 12:00 97.6 65 20 124/88 (100) 97 12/25/18 09:15 195/146 12/25/18 09:15 61 195/146 12/25/18 09:15 61 195/146 12/25/18 09:00 Room Air 12/25/18 08:13 176/61 12/25/18 08:00 98.3 61 21 195/146 (162) 98 12/25/18 07:47 67 18 100 Room Air 12/25/18 07:37 67 18 99 Room Air 12/25/18 05:46 155/82 12/25/18 04:00 98.0 69 17 155/82 (106) 99 12/25/18 01:01 Room Air 21 12/25/18 01:01 Room Air 21 12/25/18 00:00 98.3 68 18 170/78 (108) 100 12/24/18 23:15 179/84 12/24/18 21:35 179/84 12/24/18 21:00 Room Air 12/24/18 20:16 82 178/72 12/24/18 20:11 69 18 99 Room Air 21 12/24/18 20:01 72 18 97 Room Air 21 12/24/18 20:00 98.6 71 18 178/62 (100) 100 Intake and Output 12/24/18 12/25/18 18:59 06:59 Intake Total 675 ml 750 ml Output Total 500 ml 1850 ml Balance 175 ml -1100 ml Intake Oral 600 ml IV Total 75 ml 750 ml Output Urine Total 500 ml 1850 ml # Bowel Movements 1 Laboratory Tests Test 12/25/18 05:45 White Blood Count 5.2 K/UL (4.8-10.8) Red Blood Count 3.36 M/UL (4.70-6.10) L Hemoglobin 10.7 G/DL (14.2-18.0) L Hematocrit 33.2 % (42.0-52.0) L Mean Corpuscular Volume 99 FL (80-99) Mean Corpuscular Hemoglobin 31.7 PG (27.0-31.0) H Mean Corpuscular Hemoglobin Concent 32.1 G/DL (32.0-36.0) Red Cell Distribution Width 12.8 % (11.6-14.8) Platelet Count 86 K/UL (150-450) L Mean Platelet Volume 9.4 FL (6.5-10.1) Neutrophils (%) (Auto) % (45.0-75.0) Lymphocytes (%) (Auto) % (20.0-45.0) Monocytes (%) (Auto) % (1.0-10.0) Eosinophils (%) (Auto) % (0.0-3.0) Basophils (%) (Auto) % (0.0-2.0) Differential Total Cells Counted 100 Neutrophils % (Manual) 61 % (45-75) Lymphocytes % (Manual) 25 % (20-45) Monocytes % (Manual) 12 % (1-10) H Eosinophils % (Manual) 1 % (0-3) Basophils % (Manual) 1 % (0-2) Band Neutrophils 0 % (0-8) Platelet Estimate Decreased L Platelet Morphology Normal Hypochromasia 1+ Anisocytosis 1+ Sodium Level 144 MMOL/L (136-145) Potassium Level 4.0 MMOL/L (3.5-5.1) Chloride Level 110 MMOL/L (98-107) H Carbon Dioxide Level 28 MMOL/L (21-32) Anion Gap 6 mmol/L (5-15) Blood Urea Nitrogen 32 mg/dL (7-18) H Creatinine 1.4 MG/DL (0.55-1.30) H Estimat Glomerular Filtration Rate mL/min (>60) Glucose Level 152 MG/DL (74-106) H Calcium Level 8.6 MG/DL (8.5-10.1) Objective HEAD AND NECK: Showed no JVD. LUNGS: Clear. CARDIOVASCULAR: Regular S1 and S2 with no gallop or murmur. ABDOMEN: Soft. EXTREMITIES: A 1+ pitting edema. Kd Fish MD Dec 25, 2018 18:50
--- NOTE | 2018-12-25 19:30 | NUR ---
HAND-OFF: Report given to Santo GUTIERREZ. Patient is stable.
[2018-12-25 20:00] VITALS: BP 157/88
--- NOTE | 2018-12-25 20:30 | NUR ---
NURSE NOTES: Received report from AM RN. Patient is in bed with SOB at rest. Hematuria emptied from urinal. Bilateral +2 pitting edema of feet. DVT preventative heparin held due to low platelet count; see AM labs. Left hand 22g IV C/D/I. BP meds and insulin administered according to eMAR.
[2018-12-25] MEDS: Atorvastatin 20mg tab ORAL SCH (21:00)
[2018-12-25] MEDS: Iron Sucrose 100 MG in NS 55 ML IV SCH (21:08)
[2018-12-26] VITALS: BP 134/90
[2018-12-26 04:00] VITALS: BP_SYST 134; BP_SYST 197; BP_DIAS 88; BP_DIAS 90
[2018-12-26] MEDS: HydrALAZINE 25mg tab ORAL SCH ×3 (05:37→21:16)
[2018-12-26] MEDS: NovoLOG Insulin Flexpen SUBQ SCH ×4 (05:43→21:18)
[2018-12-26 06:16] LABS: HEMATOCRIT 31.4 % (42.0-52.0); HEMOGLOBIN 10.1 G/DL (14.2-18.0); MEAN CORPUSCULAR VOLUME 98 FL (80-99); PLATELET COUNT 90 K/UL (150-450); WHITE BLOOD COUNT 5.3 K/UL (4.8-10.8)
[2018-12-26 06:30] LABS: ANION GAP 6 mmol/L (5-15); BLOOD UREA NITROGEN 28 mg/dL (7-18); CALCIUM 8.6 MG/DL (8.5-10.1); CARBON DIOXIDE 28 MMOL/L (21-32); CHLORIDE 109 MMOL/L (98-107); CREATININE 1.4 MG/DL (0.55-1.30); SODIUM 143 MMOL/L (136-145)
[2018-12-26 06:42] LABS: ALANINE AMINOTRANSFERASE 26 U/L (12-78); ALBUMIN 2.7 G/DL (3.4-5.0); ASPARTATE AMINO TRANSFERASE 29 U/L (15-37); BILIRUBIN,DIRECT < 0.1 MG/DL (0.0-0.3); BILIRUBIN,TOTAL 0.3 MG/DL (0.2-1.0); PHOSPHORUS 2.6 MG/DL (2.5-4.9)
[2018-12-26 06:56] LABS: ALKALINE PHOSPHATASE 47 U/L (46-116)
--- NOTE | 2018-12-26 07:07 | NUR ---
HAND-OFF: Report given to Zhanna GUTIERREZ.
[2018-12-26 08:00] VITALS: BP 164/71
[2018-12-26] MEDS: Carvedilol 12.5mg tab ORAL SCH ×2 (08:20→20:53)
[2018-12-26] MEDS: Tamsulosin 0.4mg cap ORAL SCH ×2 (08:21→17:36)
[2018-12-26] MEDS: Docusate 100mg cap ORAL SCH ×3 (08:22→17:36)
[2018-12-26] MEDS: Heparin 5000 units/ml inj SUBQ SCH ×2 (08:22→21:00)
[2018-12-26] MEDS: Imdur 30mg tab ORAL SCH (08:22)
[2018-12-26] MEDS: Bisacodyl EC 5mg tab ORAL SCH (08:22)
--- NOTE | 2018-12-26 09:54 | NUR ---
NURSE NOTES: Received a report from MATT oakley patient awake alert with out no distress, call light with in reach, bed on low position locked, BP 164/71 scheduled medication given will reassess.
--- NOTE | 2018-12-26 10:29 | Nephrology Progress Note ---
Assessment/Plan Problem List: (1) Acute renal injury Assessment: Cr lowering (2) Gross hematuria (3) Bladder mass (4) Hypertension (5) Diabetes Assessment ANGELA - HTN OOC - Hematuria- Likely UTI Dehydration DM CAD Plan Uro eval noted Urine culture- Flomax Rocephin Slow hydrate 2D echo Keep BP and BS in check per orders due cysto as clear by cardio Multiple masslike lesions within the bladder. Further evaluation with cystoscopy is recommended to evaluate for possible neoplasm. Multiple parapelvic renal cysts Subjective ROS Limited/Unobtainable: No Objective Objective Last 24 Hour Vital Signs Date Time Temp Pulse Resp B/P (MAP) Pulse Ox O2 Delivery O2 Flow Rate FiO2 12/26/18 08:22 164/71 12/26/18 08:21 164/71 12/26/18 08:21 71 164/71 12/26/18 08:20 71 164/71 12/26/18 05:37 197/88 12/26/18 04:00 98.3 66 19 197/88 (124) 95 12/26/18 04:00 98.3 66 19 134/90 (105) 98 12/26/18 01:10 72 16 97 Room Air 12/26/18 00:49 134/90 12/26/18 00:00 98.5 66 17 134/90 (105) 95 12/25/18 21:10 157/88 12/25/18 21:00 65 157/88 12/25/18 21:00 Room Air 12/25/18 20:00 98.4 65 18 157/88 (111) 98 12/25/18 19:00 76 18 100 Room Air 12/25/18 18:48 80 20 98 Room Air 21 12/25/18 16:02 166/73 12/25/18 16:00 98.3 63 21 166/73 (104) 98 12/25/18 14:39 157/65 12/25/18 14:02 75 18 100 Room Air 12/25/18 13:50 72 20 94 Room Air 21 12/25/18 12:00 97.6 65 20 124/88 (100) 97 Intake and Output 12/25/18 12/26/18 19:00 07:00 Intake Total 430 ml 90 ml Output Total 900 ml 1000 ml Balance -470 ml -910 ml Intake Oral 400 ml IV Total 30 ml 90 ml Output Urine Total 900 ml 1000 ml Laboratory Tests 12/26/18 05:35: White Blood Count 5.3, Red Blood Count 3.20L, Hemoglobin 10.1L, Hematocrit 31.4L , Mean Corpuscular Volume 98, Mean Corpuscular Hemoglobin 31.6H, Mean Corpuscular Hemoglobin Concent 32.1, Red Cell Distribution Width 13.0, Platelet Count 90L, Mean Platelet Volume 9.2, Neutrophils (%) (Auto) , Lymphocytes (%) ( Auto) , Monocytes (%) (Auto) , Eosinophils (%) (Auto) , Basophils (%) (Auto) , Differential Total Cells Counted 100, Neutrophils % (Manual) 64, Lymphocytes % ( Manual) 26, Monocytes % (Manual) 9, Eosinophils % (Manual) 1, Basophils % ( Manual) 0, Band Neutrophils 0, Platelet Estimate DecreasedL, Platelet Morphology Normal, Hypochromasia 1+, Prothrombin Time 10.4, Prothromb Time International Ratio 1.0, Activated Partial Thromboplast Time 30, Sodium Level 143, Potassium Level 4.0, Chloride Level 109H, Carbon Dioxide Level 28, Anion Gap 6, Blood Urea Nitrogen 28H, Creatinine 1.4H, Estimat Glomerular Filtration Rate , Glucose Level 167H, Calcium Level 8.6, Phosphorus Level 2.6, Magnesium Level 1.8, Total Bilirubin 0.3, Direct Bilirubin < 0.1, Aspartate Amino Transf ( AST/SGOT) 29, Alanine Aminotransferase (ALT/SGPT) 26, Alkaline Phosphatase 47, Total Protein 6.1L, Albumin 2.7L Height (Feet): 6 Height (Inches): 0.00 Weight (Pounds): 180 General Appearance: no apparent distress Respiratory/Chest: lungs clear Abdomen: soft, distended Objective no change Russell Sofia MD Dec 26, 2018 10:29
--- NOTE | 2018-12-26 11:14 | NUR ---
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 98.9 HR 71 RR 18 B/P 197/88 RA 98% BUN 28 CR 1.4 IS: IVF NS @ 30ML/HR IRON IV CEFTRIAXONE IV HEPARIN SUBC MED/SURG STATUS
[2018-12-26 11:48] VITALS: BP 157/71
--- NOTE | 2018-12-26 11:54 | CDS Physician Query ---
Clarification is required for compliance, coding accuracy, and to reflect severity of illness for this patient Dear Dr. Gray Date: 12-26-18 CDS Name: Kerry Tomlinson "Heart Failure / CHF" documented in the progress note, echocardiogram doppler performed on 12-21-18. Please Clarify: Acuity [ ] Acute [ ] Chronic [ ] Acute on Chronic Type [ ] Systolic [ ] Diastolic [ ] Systolic & Diastolic (Combined) [ ] Other: Present on Admission: [ ] Yes [] No [ ] Clinically Undetermined Physician signature Date Please also document in your Progress Notes and/or Discharge Summary and indicate if the condition was present on admission. ADAM
--- NOTE | 2018-12-26 12:02 | Pulmonology Progress Note ---
Assessment/Plan Problems: (1) ATN (acute tubular necrosis) (2) Gross hematuria (3) Hypertension (4) CAD (coronary artery disease) (5) Hematuria Assessment/Plan h/h stable no new complains f/u by iv hydration awaiting urology consult doing better prbc prn Subjective ROS Limited/Unobtainable: No Constitutional: Reports: no symptoms HEENT: Repors: no symptoms Respiratory: Reports: no symptoms Allergies: Coded Allergies: No Known Allergies (Unverified , 12/20/18) Objective Last 24 Hour Vital Signs Date Time Temp Pulse Resp B/P (MAP) Pulse Ox O2 Delivery O2 Flow Rate FiO2 12/26/18 11:48 98.7 62 20 157/71 (99) 94 12/26/18 09:00 Room Air 12/26/18 08:22 164/71 12/26/18 08:21 164/71 12/26/18 08:21 71 164/71 12/26/18 08:20 71 164/71 12/26/18 08:00 98.9 71 18 164/71 (102) 100 12/26/18 05:37 197/88 12/26/18 04:00 98.3 66 19 197/88 (124) 95 12/26/18 04:00 98.3 66 19 134/90 (105) 98 12/26/18 01:10 72 16 97 Room Air 21 12/26/18 00:49 134/90 12/26/18 00:00 98.5 66 17 134/90 (105) 95 12/25/18 21:10 157/88 12/25/18 21:00 65 157/88 12/25/18 21:00 Room Air 12/25/18 20:00 98.4 65 18 157/88 (111) 98 12/25/18 19:00 76 18 100 Room Air 21 12/25/18 18:48 80 20 98 Room Air 21 12/25/18 16:02 166/73 12/25/18 16:00 98.3 63 21 166/73 (104) 98 12/25/18 14:39 157/65 12/25/18 14:02 75 18 100 Room Air 21 12/25/18 13:50 72 20 94 Room Air 21 Intake and Output 12/25/18 12/26/18 19:00 07:00 Intake Total 430 ml 90 ml Output Total 900 ml 1000 ml Balance -470 ml -910 ml Intake Oral 400 ml IV Total 30 ml 90 ml Output Urine Total 900 ml 1000 ml General Appearance: WD/WN HEENT: normocephalic, atraumatic Respiratory/Chest: chest wall non-tender, lungs clear Cardiovascular: normal peripheral pulses, normal rate Genitourinary: normal external genitalia Extremities: no clubbing Skin: no ulcers 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 Laboratory Tests 12/26/18 05:35: White Blood Count 5.3, Red Blood Count 3.20L, Hemoglobin 10.1L, Hematocrit 31.4L , Mean Corpuscular Volume 98, Mean Corpuscular Hemoglobin 31.6H, Mean Corpuscular Hemoglobin Concent 32.1, Red Cell Distribution Width 13.0, Platelet Count 90L, Mean Platelet Volume 9.2, Neutrophils (%) (Auto) , Lymphocytes (%) ( Auto) , Monocytes (%) (Auto) , Eosinophils (%) (Auto) , Basophils (%) (Auto) , Differential Total Cells Counted 100, Neutrophils % (Manual) 64, Lymphocytes % ( Manual) 26, Monocytes % (Manual) 9, Eosinophils % (Manual) 1, Basophils % ( Manual) 0, Band Neutrophils 0, Platelet Estimate DecreasedL, Platelet Morphology Normal, Hypochromasia 1+, Prothrombin Time 10.4, Prothromb Time International Ratio 1.0, Activated Partial Thromboplast Time 30, Sodium Level 143, Potassium Level 4.0, Chloride Level 109H, Carbon Dioxide Level 28, Anion Gap 6, Blood Urea Nitrogen 28H, Creatinine 1.4H, Estimat Glomerular Filtration Rate , Glucose Level 167H, Calcium Level 8.6, Phosphorus Level 2.6, Magnesium Level 1.8, Total Bilirubin 0.3, Direct Bilirubin < 0.1, Aspartate Amino Transf ( AST/SGOT) 29, Alanine Aminotransferase (ALT/SGPT) 26, Alkaline Phosphatase 47, Total Protein 6.1L, Albumin 2.7L Current Medications Medications (Trade) Dose Ordered Sig/Sallie Route PRN Reason Start Time Stop Time Status Last Admin Dose Admin Acetaminophen (Tylenol) 650 mg Q4H PRN ORAL fever 12/20/18 20:30 01/19/19 20:29 Amlodipine Besylate (Norvasc) 10 mg DAILY ORAL 12/21/18 09:00 01/20/19 08:59 12/26/18 08:21 Atorvastatin Calcium (Lipitor) 20 mg BEDTIME ORAL 12/21/18 21:00 01/20/19 20:59 12/25/18 21:00 Bisacodyl (Dulcolax) 5 mg DAILY ORAL 12/21/18 09:00 01/20/19 08:59 12/26/18 08:22 Carvedilol (Coreg) 12.5 mg EVERY 12 HOURS ORAL 12/21/18 09:00 01/20/19 08:59 12/26/18 08:20 Ceftriaxone Sodium 1 gm/ Dextrose 55 ml @ 110 mls/hr Q24H IVPB 12/22/18 14:00 12/29/18 13:59 12/25/18 14:39 Clonidine HCl (Catapres Tab) 0.2 mg Q8H ORAL 12/25/18 16:00 01/21/19 07:59 12/26/18 08:21 Dextrose (Dextrose 50%) 25 ml Q30M PRN IV Hypoglycemia 12/20/18 20:30 01/19/19 20:29 Dextrose (Dextrose 50%) 50 ml Q30M PRN IV Hypoglycemia 12/20/18 20:30 01/19/19 20:29 Diphenhydramine HCl (Benadryl) 25 mg Q6H PRN ORAL Itching/Pruritis 12/20/18 20:30 01/19/19 20:29 Docusate Sodium (Colace) 100 mg THREE TIMES A DAY ORAL 12/21/18 18:00 01/20/19 17:59 12/26/18 08:22 Folic Acid (Folate) 3 mg DAILY ORAL 12/23/18 10:00 01/22/19 09:59 12/26/18 08:22 Heparin Sodium (Porcine) (Heparin 5000 units/ml) 5,000 units EVERY 12 HOURS SUBQ 12/21/18 09:00 01/19/19 21:46 12/22/18 21:33 Hydralazine HCl (Apresoline) 75 mg Q8HR ORAL 12/24/18 14:00 01/20/19 08:59 12/26/18 05:37 Hydromorphone HCl (Dilaudid) 2 mg Q6H PRN IVP Moderate Pain (Pain Scale 4-6) 12/21/18 18:00 12/28/18 17:59 12/25/18 08:11 Insulin Aspart (NovoLOG) BEFORE MEALS AND HS SUBQ 12/21/18 06:30 01/20/19 06:29 12/26/18 05:43 Iron Sucrose 100 mg/Sodium Chloride 60 ml @ 240 mls/hr BEDTIME IV 12/22/18 21:00 12/26/18 21:14 12/25/18 21:08 Isosorbide Mononitrate (Imdur) 60 mg DAILY ORAL 12/21/18 11:45 01/20/19 11:44 12/26/18 08:22 Lorazepam (Ativan 2mg/ml 1ml) 0.5 mg Q4H PRN IV For Anxiety 12/20/18 20:30 12/27/18 20:29 Minoxidil (Loniten) 2.5 mg Q4H PRN ORAL bp over 165 syst 12/25/18 12:00 01/24/19 11:59 Nitroglycerin (Ntg) 0.4 mg Q5M X 3 DOSES PRN SL Prn Chest Pain 12/20/18 20:30 01/19/19 20:29 Ondansetron HCl (Zofran) 4 mg Q6H PRN IVP Nausea & Vomiting 12/20/18 20:30 01/19/19 20:29 Pantoprazole (Protonix) 40 mg EVERY 12 HOURS ORAL 12/21/18 21:00 01/20/19 20:59 12/26/18 08:22 Sodium Chloride 1,000 ml @ 30 mls/hr Q24H IVLG 12/26/18 12:00 01/19/19 11:59 12/25/18 21:13 Tamsulosin HCl (Flomax) 0.4 mg BID ORAL 12/21/18 11:45 01/20/19 11:44 12/26/18 08:21 Zolpidem Tartrate (Ambien) 5 mg HSPRN PRN ORAL Insomnia 12/20/18 20:30 12/27/18 20:29 12/24/18 01:58 Adam Moyer MD Dec 26, 2018 12:02
--- NOTE | 2018-12-26 15:01 | General Progress Note ---
Assessment/Plan Problem List: (1) CHF (congestive heart failure) ICD Codes: I50.9 - Heart failure, unspecified SNOMED: 36718359 (2) Weak ICD Codes: R53.1 - Weakness SNOMED: 76014812 (3) Bladder mass ICD Codes: N32.89 - Other specified disorders of bladder SNOMED: 802788857 (4) Diabetes ICD Codes: E11.9 - Type 2 diabetes mellitus without complications SNOMED: 34444793 (5) HTN (hypertension) ICD Codes: I10 - Essential (primary) hypertension SNOMED: 97704317 (6) Anemia ICD Codes: D64.9 - Anemia, unspecified SNOMED: 164349133 (7) ARF (acute renal failure) ICD Codes: N17.9 - Acute kidney failure, unspecified SNOMED: 43001144 (8) UTI (urinary tract infection) ICD Codes: N39.0 - Urinary tract infection, site not specified SNOMED: 08372013, 7860664 (9) Hypertension ICD Codes: I10 - Essential (primary) hypertension SNOMED: 14149422 (10) ATN (acute tubular necrosis) ICD Codes: N17.0 - Acute kidney failure with tubular necrosis SNOMED: 16672245 Status: stable, progressing Assessment/Plan: bp bs control abx uro heme f/u cbc bmp am Subjective Constitutional: Reports: weakness Allergies: Coded Allergies: No Known Allergies (Unverified , 12/20/18) All Systems: reviewed and negative except above Subjective calm in bed Objective Last 24 Hour Vital Signs Date Time Temp Pulse Resp B/P (MAP) Pulse Ox O2 Delivery O2 Flow Rate FiO2 12/26/18 11:48 98.7 62 20 157/71 (99) 94 12/26/18 09:00 Room Air 12/26/18 08:22 164/71 12/26/18 08:21 164/71 12/26/18 08:21 71 164/71 12/26/18 08:20 71 164/71 12/26/18 08:00 98.9 71 18 164/71 (102) 100 12/26/18 05:37 197/88 12/26/18 04:00 98.3 66 19 197/88 (124) 95 12/26/18 04:00 98.3 66 19 134/90 (105) 98 12/26/18 01:10 72 16 97 Room Air 21 12/26/18 00:49 134/90 12/26/18 00:00 98.5 66 17 134/90 (105) 95 12/25/18 21:10 157/88 12/25/18 21:00 65 157/88 12/25/18 21:00 Room Air 12/25/18 20:00 98.4 65 18 157/88 (111) 98 12/25/18 19:00 76 18 100 Room Air 21 12/25/18 18:48 80 20 98 Room Air 21 12/25/18 16:02 166/73 12/25/18 16:00 98.3 63 21 166/73 (104) 98 Intake and Output 12/25/18 12/26/18 19:00 07:00 Intake Total 430 ml 90 ml Output Total 900 ml 1000 ml Balance -470 ml -910 ml Intake Oral 400 ml IV Total 30 ml 90 ml Output Urine Total 900 ml 1000 ml Laboratory Tests 12/26/18 05:35: White Blood Count 5.3, Red Blood Count 3.20L, Hemoglobin 10.1L, Hematocrit 31.4L , Mean Corpuscular Volume 98, Mean Corpuscular Hemoglobin 31.6H, Mean Corpuscular Hemoglobin Concent 32.1, Red Cell Distribution Width 13.0, Platelet Count 90L, Mean Platelet Volume 9.2, Neutrophils (%) (Auto) , Lymphocytes (%) ( Auto) , Monocytes (%) (Auto) , Eosinophils (%) (Auto) , Basophils (%) (Auto) , Differential Total Cells Counted 100, Neutrophils % (Manual) 64, Lymphocytes % ( Manual) 26, Monocytes % (Manual) 9, Eosinophils % (Manual) 1, Basophils % ( Manual) 0, Band Neutrophils 0, Platelet Estimate DecreasedL, Platelet Morphology Normal, Hypochromasia 1+, Prothrombin Time 10.4, Prothromb Time International Ratio 1.0, Activated Partial Thromboplast Time 30, Sodium Level 143, Potassium Level 4.0, Chloride Level 109H, Carbon Dioxide Level 28, Anion Gap 6, Blood Urea Nitrogen 28H, Creatinine 1.4H, Estimat Glomerular Filtration Rate , Glucose Level 167H, Calcium Level 8.6, Phosphorus Level 2.6, Magnesium Level 1.8, Total Bilirubin 0.3, Direct Bilirubin < 0.1, Aspartate Amino Transf ( AST/SGOT) 29, Alanine Aminotransferase (ALT/SGPT) 26, Alkaline Phosphatase 47, Total Protein 6.1L, Albumin 2.7L Height (Feet): 6 Height (Inches): 0.00 Weight (Pounds): 180 General Appearance: lethargic EENT: normal ENT inspection Neck: normal alignment Cardiovascular: normal peripheral pulses, normal rate, regular rhythm Respiratory/Chest: chest wall non-tender, lungs clear, normal breath sounds Abdomen: normal bowel sounds, non tender, soft Extremities: normal inspection Edema: no edema noted Arm (L), no edema noted Arm (R), no edema noted Leg (L), no edema noted Leg (R), no edema noted Pedal (L), no edema noted Pedal (R), no edema noted Generalized Neurologic: motor weakness Skin: normal pigmentation, warm/dry Jamie Gray DO Dec 26, 2018 15:01
[2018-12-26] MEDS: cefTRIAXone 1 GM in D5W 55 ML IVPB SCH (15:44)
[2018-12-26 16:00] VITALS: BP 169/76
--- NOTE | 2018-12-26 16:44 | Cardiac Electrophysiology PN ---
Assessment/Plan Assessment/Plan 1. Accelerated hypertension with blood pressure of around 200. On clonidine 0.1 q8, Norvasc 10 daily, Lasix 40 mg bid, Coreg 25 bid, losartan 100 daily, Imdur 20 daily and p.r.n. hydralazine. 2. History of CAD. Echo Nl EF. No CP and No acute ECG changes 3. Hyperlipidemia on Lipitor. 4. Renal failure. Further evaluation by Nephrology. 5. Hematuria. US. Multiple masslike lesions within the bladder. Cystoscopy is pending to evaluate for possible neoplasm. FU Urology OK to proceed with cystoscopy from cardiac perspective STEPHANIE RN and Dr Sofia Subjective Subjective No new events.Still has active hematuria. No CP Objective Last 24 Hour Vital Signs Date Time Temp Pulse Resp B/P (MAP) Pulse Ox O2 Delivery O2 Flow Rate FiO2 12/26/18 15:44 157/71 12/26/18 15:44 157/71 12/26/18 11:48 98.7 62 20 157/71 (99) 94 12/26/18 09:00 Room Air 12/26/18 08:22 164/71 12/26/18 08:21 164/71 12/26/18 08:21 71 164/71 12/26/18 08:20 71 164/71 12/26/18 08:00 98.9 71 18 164/71 (102) 100 12/26/18 05:37 197/88 12/26/18 04:00 98.3 66 19 197/88 (124) 95 12/26/18 04:00 98.3 66 19 134/90 (105) 98 12/26/18 01:10 72 16 97 Room Air 21 12/26/18 00:49 134/90 12/26/18 00:00 98.5 66 17 134/90 (105) 95 12/25/18 21:10 157/88 12/25/18 21:00 65 157/88 12/25/18 21:00 Room Air 12/25/18 20:00 98.4 65 18 157/88 (111) 98 12/25/18 19:00 76 18 100 Room Air 21 12/25/18 18:48 80 20 98 Room Air 21 Intake and Output 12/25/18 12/26/18 19:00 07:00 Intake Total 430 ml 90 ml Output Total 900 ml 1000 ml Balance -470 ml -910 ml Intake Oral 400 ml IV Total 30 ml 90 ml Output Urine Total 900 ml 1000 ml Laboratory Tests Test 12/26/18 05:35 White Blood Count 5.3 K/UL (4.8-10.8) Red Blood Count 3.20 M/UL (4.70-6.10) L Hemoglobin 10.1 G/DL (14.2-18.0) L Hematocrit 31.4 % (42.0-52.0) L Mean Corpuscular Volume 98 FL (80-99) Mean Corpuscular Hemoglobin 31.6 PG (27.0-31.0) H Mean Corpuscular Hemoglobin Concent 32.1 G/DL (32.0-36.0) Red Cell Distribution Width 13.0 % (11.6-14.8) Platelet Count 90 K/UL (150-450) L Mean Platelet Volume 9.2 FL (6.5-10.1) Neutrophils (%) (Auto) % (45.0-75.0) Lymphocytes (%) (Auto) % (20.0-45.0) Monocytes (%) (Auto) % (1.0-10.0) Eosinophils (%) (Auto) % (0.0-3.0) Basophils (%) (Auto) % (0.0-2.0) Differential Total Cells Counted 100 Neutrophils % (Manual) 64 % (45-75) Lymphocytes % (Manual) 26 % (20-45) Monocytes % (Manual) 9 % (1-10) Eosinophils % (Manual) 1 % (0-3) Basophils % (Manual) 0 % (0-2) Band Neutrophils 0 % (0-8) Platelet Estimate Decreased L Platelet Morphology Normal Hypochromasia 1+ Prothrombin Time 10.4 SEC (9.30-11.50) Prothromb Time International Ratio 1.0 (0.9-1.1) Activated Partial Thromboplast Time 30 SEC (23-33) Sodium Level 143 MMOL/L (136-145) Potassium Level 4.0 MMOL/L (3.5-5.1) Chloride Level 109 MMOL/L (98-107) H Carbon Dioxide Level 28 MMOL/L (21-32) Anion Gap 6 mmol/L (5-15) Blood Urea Nitrogen 28 mg/dL (7-18) H Creatinine 1.4 MG/DL (0.55-1.30) H Estimat Glomerular Filtration Rate mL/min (>60) Glucose Level 167 MG/DL (74-106) H Calcium Level 8.6 MG/DL (8.5-10.1) Phosphorus Level 2.6 MG/DL (2.5-4.9) Magnesium Level 1.8 MG/DL (1.8-2.4) Total Bilirubin 0.3 MG/DL (0.2-1.0) Direct Bilirubin < 0.1 MG/DL (0.0-0.3) Aspartate Amino Transf (AST/SGOT) 29 U/L (15-37) Alanine Aminotransferase (ALT/SGPT) 26 U/L (12-78) Alkaline Phosphatase 47 U/L (46-116) Total Protein 6.1 G/DL (6.4-8.2) L Albumin 2.7 G/DL (3.4-5.0) L Objective HEAD AND NECK: Showed no JVD. LUNGS: Clear. CARDIOVASCULAR: Regular S1 and S2 with no gallop or murmur. ABDOMEN: Soft. EXTREMITIES: A 1+ pitting edema. Kd Fish MD Dec 26, 2018 16:44
--- NOTE | 2018-12-26 16:46 | Hematology/Onc Progress Note ---
Assessment/Plan Assessment/Plan Assessment and Recs: # Multiple bladder masses CT shows Scattered eccentric mural thickening/masses in the urinary bladder wall, correlating with findings on recent ultrasound. No significant perivesical stranding. Recommend further evaluation with cystoscopy. --> urology consulted, recs for cysto --> may need cystoscopy, eval for resection --> plan for cysto, bladder tumor resection Tuesday/Tuesday --> if not able for full resection, may need treatment, chemo # Thrombocytopenia - potential causes multifactorial, evaluate liver and viral etiologies to begin, also could be related to underlying medications patient has received. --> Hep panel and HIV -> NEGATIVE --> US abd showed bladder masses--> CT a/p without contrast pending --> Peripheral smear ordered to evaluate for blasts /schistocytes --> none noted --> abx and other meds have been reviewed --> ok for ppx if plt >50k w/ either heparin or lovenox --> trend plt 103-->92k-->90k # Anemia of iron deficiency likely due to hematuria --> iv iron started x 5 days low ferritin --> likely due to hematuria --> have started on ivf and consider uro prn cysto # Acute renal injury --> cr has improved 2.3-->1.8-->2.3->1.6-->1.4-->1.4 --> per renal recs --> volume expansion # HTN --> cards consulted # Hematuria # UTI (urinary tract infection) # Dehydration The timing of this note does not necessarily reflect the time of the patient was seen. GREATLY APPRECIATE CONSULTATION. Subjective HEENT: Denies: no symptoms, eye pain, blurred vision, tearing, double vision, ear pain, ear discharge, nose pain, nose congestion, throat pain, throat swelling, mouth pain, mouth swelling, other Cardiovascular: Denies: no symptoms, chest pain, edema, irregular heart rate, lightheadedness, palpitations, syncope, other Respiratory: Denies: no symptoms, cough, shortness of breath, SOB with excertion, SOB at rest, sputum, wheezing, other Gastrointestinal/Abdominal: Denies: no symptoms, abdomen distended, abdominal pain, black stools, tarry stools, blood in stool, constipated, diarrhea, difficulty swallowing, nausea, poor appetite, poor fluid intake, rectal bleeding , vomiting, other Genitourinary: Denies: no symptoms, burning, discharge, frequency, flank pain, hematuria, incontinence, pain, urgency, other Endocrine: Denies: no symptoms, excessive sweating, flushing, intolerance to cold, intolerance to heat, increased hunger, increased thirst, increased urine, unexplained weight gain, unexplained weight loss, other Hematologic/Lymphatic: Denies: no symptoms, anemia, easy bleeding, easy bruising, adenopathy, other Allergies: Coded Allergies: No Known Allergies (Unverified , 12/20/18) Subjective 12/22: no events noted, no bleeding, ct ordered for the us findings with multiple masses in bladder, cysto recommended 12/24: no events, no bleeding, no night sweats noted, no chills reported 12/25: no fevers, no chills, no major changes, cysto for /12/26: awaiting further uro recs, feeling better, no f/c, prbc prn Objective Objective Current Medications Medications (Trade) Dose Ordered Sig/Sallie Route PRN Reason Start Time Stop Time Status Last Admin Dose Admin Acetaminophen (Tylenol) 650 mg Q4H PRN ORAL fever 12/20/18 20:30 01/19/19 20:29 Amlodipine Besylate (Norvasc) 10 mg DAILY ORAL 12/21/18 09:00 01/20/19 08:59 12/26/18 08:21 Atorvastatin Calcium (Lipitor) 20 mg BEDTIME ORAL 12/21/18 21:00 01/20/19 20:59 12/25/18 21:00 Bisacodyl (Dulcolax) 5 mg DAILY ORAL 12/21/18 09:00 01/20/19 08:59 12/26/18 08:22 Carvedilol (Coreg) 12.5 mg EVERY 12 HOURS ORAL 12/21/18 09:00 01/20/19 08:59 12/26/18 08:20 Ceftriaxone Sodium 1 gm/ Dextrose 55 ml @ 110 mls/hr Q24H IVPB 12/22/18 14:00 12/29/18 13:59 12/26/18 15:44 Clonidine HCl (Catapres Tab) 0.2 mg Q8H ORAL 12/25/18 16:00 01/21/19 07:59 12/26/18 15:44 Dextrose (Dextrose 50%) 25 ml Q30M PRN IV Hypoglycemia 12/20/18 20:30 01/19/19 20:29 Dextrose (Dextrose 50%) 50 ml Q30M PRN IV Hypoglycemia 12/20/18 20:30 01/19/19 20:29 Diphenhydramine HCl (Benadryl) 25 mg Q6H PRN ORAL Itching/Pruritis 12/20/18 20:30 01/19/19 20:29 Docusate Sodium (Colace) 100 mg THREE TIMES A DAY ORAL 12/21/18 18:00 01/20/19 17:59 12/26/18 12:23 Folic Acid (Folate) 3 mg DAILY ORAL 12/23/18 10:00 01/22/19 09:59 12/26/18 08:22 Heparin Sodium (Porcine) (Heparin 5000 units/ml) 5,000 units EVERY 12 HOURS SUBQ 12/21/18 09:00 01/19/19 21:46 12/22/18 21:33 Hydralazine HCl (Apresoline) 75 mg Q8HR ORAL 12/24/18 14:00 01/20/19 08:59 12/26/18 15:44 Hydromorphone HCl (Dilaudid) 2 mg Q6H PRN IVP Moderate Pain (Pain Scale 4-6) 12/21/18 18:00 12/28/18 17:59 12/25/18 08:11 Insulin Aspart (NovoLOG) BEFORE MEALS AND HS SUBQ 12/21/18 06:30 01/20/19 06:29 12/26/18 12:25 Iron Sucrose 100 mg/Sodium Chloride 60 ml @ 240 mls/hr BEDTIME IV 12/22/18 21:00 12/26/18 21:14 12/25/18 21:08 Isosorbide Mononitrate (Imdur) 60 mg DAILY ORAL 12/21/18 11:45 01/20/19 11:44 12/26/18 08:22 Lorazepam (Ativan 2mg/ml 1ml) 0.5 mg Q4H PRN IV For Anxiety 12/20/18 20:30 12/27/18 20:29 Minoxidil (Loniten) 2.5 mg Q4H PRN ORAL bp over 165 syst 12/25/18 12:00 01/24/19 11:59 Nitroglycerin (Ntg) 0.4 mg Q5M X 3 DOSES PRN SL Prn Chest Pain 12/20/18 20:30 01/19/19 20:29 Ondansetron HCl (Zofran) 4 mg Q6H PRN IVP Nausea & Vomiting 12/20/18 20:30 01/19/19 20:29 Pantoprazole (Protonix) 40 mg EVERY 12 HOURS ORAL 12/21/18 21:00 01/20/19 20:59 12/26/18 08:22 Sodium Chloride 1,000 ml @ 30 mls/hr Q24H IVLG 12/26/18 12:00 01/19/19 11:59 12/25/18 21:13 Tamsulosin HCl (Flomax) 0.4 mg BID ORAL 12/21/18 11:45 01/20/19 11:44 12/26/18 08:21 Zolpidem Tartrate (Ambien) 5 mg HSPRN PRN ORAL Insomnia 12/20/18 20:30 12/27/18 20:29 12/24/18 01:58 Last 24 Hour Vital Signs Date Time Temp Pulse Resp B/P (MAP) Pulse Ox O2 Delivery O2 Flow Rate FiO2 12/26/18 15:44 157/71 12/26/18 15:44 157/71 12/26/18 11:48 98.7 62 20 157/71 (99) 94 12/26/18 09:00 Room Air 12/26/18 08:22 164/71 12/26/18 08:21 164/71 12/26/18 08:21 71 164/71 12/26/18 08:20 71 164/71 12/26/18 08:00 98.9 71 18 164/71 (102) 100 12/26/18 05:37 197/88 12/26/18 04:00 98.3 66 19 197/88 (124) 95 12/26/18 04:00 98.3 66 19 134/90 (105) 98 12/26/18 01:10 72 16 97 Room Air 21 12/26/18 00:49 134/90 12/26/18 00:00 98.5 66 17 134/90 (105) 95 12/25/18 21:10 157/88 12/25/18 21:00 65 157/88 12/25/18 21:00 Room Air 12/25/18 20:00 98.4 65 18 157/88 (111) 98 12/25/18 19:00 76 18 100 Room Air 21 12/25/18 18:48 80 20 98 Room Air 21 12/25/18 16:02 166/73 12/25/18 16:00 98.3 63 21 166/73 (104) 98 12/25/18 14:39 157/65 12/25/18 14:02 75 18 100 Room Air 21 12/25/18 13:50 72 20 94 Room Air 21 12/25/18 12:00 97.6 65 20 124/88 (100) 97 12/25/18 09:15 195/146 12/25/18 09:15 61 195/146 12/25/18 09:15 61 195/146 12/25/18 09:00 Room Air 12/25/18 08:13 176/61 12/25/18 08:00 98.3 61 21 195/146 (162) 98 12/25/18 07:47 67 18 100 Room Air 21 12/25/18 07:37 67 18 99 Room Air 21 12/25/18 05:46 155/82 12/25/18 04:00 98.0 69 17 155/82 (106) 99 12/25/18 01:01 Room Air 21 12/25/18 01:01 Room Air 21 12/25/18 00:00 98.3 68 18 170/78 (108) 100 12/24/18 23:15 179/84 12/24/18 21:35 179/84 12/24/18 21:00 Room Air 12/24/18 20:16 82 178/72 12/24/18 20:11 69 18 99 Room Air 21 12/24/18 20:01 72 18 97 Room Air 21 12/24/18 20:00 98.6 71 18 178/62 (100) 100 Intake and Output 12/25/18 12/26/18 19:00 07:00 Intake Total 430 ml 90 ml Output Total 900 ml 1000 ml Balance -470 ml -910 ml Intake Oral 400 ml IV Total 30 ml 90 ml Output Urine Total 900 ml 1000 ml Labs Test 12/24/18 05:05 12/25/18 05:45 12/26/18 05:35 White Blood Count 4.9 K/UL (4.8-10.8) 5.2 K/UL (4.8-10.8) 5.3 K/UL (4.8-10.8) Red Blood Count 3.12 M/UL (4.70-6.10) 3.36 M/UL (4.70-6.10) 3.20 M/UL (4.70-6.10) Hemoglobin 9.9 G/DL (14.2-18.0) 10.7 G/DL (14.2-18.0) 10.1 G/DL (14.2-18.0) Hematocrit 31.0 % (42.0-52.0) 33.2 % (42.0-52.0) 31.4 % (42.0-52.0) Mean Corpuscular Volume 99 FL (80-99) 99 FL (80-99) 98 FL (80-99) Mean Corpuscular Hemoglobin 31.8 PG (27.0-31.0) 31.7 PG (27.0-31.0) 31.6 PG (27.0-31.0) Mean Corpuscular Hemoglobin Concent 32.0 G/DL (32.0-36.0) 32.1 G/DL (32.0-36.0) 32.1 G/DL (32.0-36.0) Red Cell Distribution Width 12.5 % (11.6-14.8) 12.8 % (11.6-14.8) 13.0 % (11.6-14.8) Platelet Count 92 K/UL (150-450) 86 K/UL (150-450) 90 K/UL (150-450) Mean Platelet Volume 9.1 FL (6.5-10.1) 9.4 FL (6.5-10.1) 9.2 FL (6.5-10.1) Neutrophils (%) (Auto) % (45.0-75.0) % (45.0-75.0) % (45.0-75.0) Lymphocytes (%) (Auto) % (20.0-45.0) % (20.0-45.0) % (20.0-45.0) Monocytes (%) (Auto) % (1.0-10.0) % (1.0-10.0) % (1.0-10.0) Eosinophils (%) (Auto) % (0.0-3.0) % (0.0-3.0) % (0.0-3.0) Basophils (%) (Auto) % (0.0-2.0) % (0.0-2.0) % (0.0-2.0) Differential Total Cells Counted 100 100 100 Neutrophils % (Manual) 63 % (45-75) 61 % (45-75) 64 % (45-75) Lymphocytes % (Manual) 24 % (20-45) 25 % (20-45) 26 % (20-45) Monocytes % (Manual) 9 % (1-10) 12 % (1-10) 9 % (1-10) Eosinophils % (Manual) 4 % (0-3) 1 % (0-3) 1 % (0-3) Basophils % (Manual) 0 % (0-2) 1 % (0-2) 0 % (0-2) Band Neutrophils 0 % (0-8) 0 % (0-8) 0 % (0-8) Platelet Estimate Decreased Decreased Decreased Platelet Morphology Normal Normal Normal Macrocytosis 1+ Sodium Level 143 MMOL/L (136-145) 144 MMOL/L (136-145) 143 MMOL/L (136-145) Potassium Level 3.9 MMOL/L (3.5-5.1) 4.0 MMOL/L (3.5-5.1) 4.0 MMOL/L (3.5-5.1) Chloride Level 109 MMOL/L (98-107) 110 MMOL/L (98-107) 109 MMOL/L (98-107) Carbon Dioxide Level 27 MMOL/L (21-32) 28 MMOL/L (21-32) 28 MMOL/L (21-32) Anion Gap 7 mmol/L (5-15) 6 mmol/L (5-15) 6 mmol/L (5-15) Blood Urea Nitrogen 41 mg/dL (7-18) 32 mg/dL (7-18) 28 mg/dL (7-18) Creatinine 1.6 MG/DL (0.55-1.30) 1.4 MG/DL (0.55-1.30) 1.4 MG/DL (0.55-1.30) Estimat Glomerular Filtration Rate mL/min (>60) mL/min (>60) mL/min (>60) Glucose Level 149 MG/DL (74-106) 152 MG/DL (74-106) 167 MG/DL (74-106) Uric Acid 9.6 MG/DL (2.6-7.2) Calcium Level 8.3 MG/DL (8.5-10.1) 8.6 MG/DL (8.5-10.1) 8.6 MG/DL (8.5-10.1) Phosphorus Level 2.2 MG/DL (2.5-4.9) 2.6 MG/DL (2.5-4.9) Magnesium Level 1.9 MG/DL (1.8-2.4) 1.8 MG/DL (1.8-2.4) Total Bilirubin 0.3 MG/DL (0.2-1.0) 0.3 MG/DL (0.2-1.0) Aspartate Amino Transf (AST/SGOT) 28 U/L (15-37) 29 U/L (15-37) Alanine Aminotransferase (ALT/SGPT) 22 U/L (12-78) 26 U/L (12-78) Alkaline Phosphatase 54 U/L (46-116) 47 U/L (46-116) Troponin I 0.001 ng/mL (0.000-0.056) Total Protein 6.2 G/DL (6.4-8.2) 6.1 G/DL (6.4-8.2) Albumin 2.8 G/DL (3.4-5.0) 2.7 G/DL (3.4-5.0) Globulin 3.4 g/dL Albumin/Globulin Ratio 0.8 (1.0-2.7) Hypochromasia 1+ 1+ Anisocytosis 1+ Prothrombin Time 10.4 SEC (9.30-11.50) Prothromb Time International Ratio 1.0 (0.9-1.1) Activated Partial Thromboplast Time 30 SEC (23-33) Direct Bilirubin < 0.1 MG/DL (0.0-0.3) Height (Feet): 6 Height (Inches): 0.00 Weight (Pounds): 180 Objective Physical Exam: Vitals: reviewed General Appearance: NAD HEENT: normocephalic, atraumatic Neck: non-tender, normal alignment Respiratory/Chest: normal breath sounds bilaterally Cardiovascular/Chest: normal peripheral pulses, normal rate Abdomen: normal bowel sounds, soft, nontender Extremities: normal range of motion + clots noted in urinal Skin: no rash Marcelo Mcallister MD Dec 26, 2018 16:46
[2018-12-26 20:00] VITALS: BP 168/65
--- NOTE | 2018-12-26 20:11 | NUR ---
NURSE NOTES: Received report from AM RN. Patient is resting in bed alert and oriented. Skin intact. Bilateral +2 pitting edema of the ankles and feet. Heels elevated with pillows. Will continue to monitor.
--- NOTE | 2018-12-26 20:16 | NUR ---
HAND-OFF: Report given to Santo Cowan RN patient stable condition.
[2018-12-26] MEDS: Atorvastatin 20mg tab ORAL SCH (20:53)
[2018-12-26] MEDS: Iron Sucrose 100 MG in NS 55 ML IV SCH (20:54)
[2018-12-27] VITALS (7 sets, daily range): BP systolic 110–180; BP diastolic 63–84
[2018-12-27] MEDS: HydrALAZINE 25mg tab ORAL SCH (05:15)
[2018-12-27] MEDS: NovoLOG Insulin Flexpen SUBQ SCH ×4 (05:16→21:21)
[2018-12-27 05:44] LABS: HEMATOCRIT 33.1 % (42.0-52.0); HEMOGLOBIN 10.6 G/DL (14.2-18.0); MEAN CORPUSCULAR VOLUME 98 FL (80-99); PLATELET COUNT 94 K/UL (150-450); RED BLOOD COUNT 3.39 M/UL (4.70-6.10); RED CELL DISTRIBUTION WIDTH 12.3 % (11.6-14.8); WHITE BLOOD COUNT 5.6 K/UL (4.8-10.8)
[2018-12-27 06:19] LABS: ALANINE AMINOTRANSFERASE 29 U/L (12-78); ALBUMIN 2.8 G/DL (3.4-5.0); ALBUMIN/GLOBULIN RATIO 0.8 (1.0-2.7); ALKALINE PHOSPHATASE 48 U/L (46-116); ANION GAP 6 mmol/L (5-15); ASPARTATE AMINO TRANSFERASE 29 U/L (15-37); BILIRUBIN,TOTAL 0.4 MG/DL (0.2-1.0); BLOOD UREA NITROGEN 28 mg/dL (7-18); CALCIUM 8.6 MG/DL (8.5-10.1); CARBON DIOXIDE 27 MMOL/L (21-32); CHLORIDE 109 MMOL/L (98-107); CREATININE 1.4 MG/DL (0.55-1.30); PHOSPHORUS 2.1 MG/DL (2.5-4.9); POTASSIUM 3.9 MMOL/L (3.5-5.1); SODIUM 142 MMOL/L (136-145)
[2018-12-27] MEDS: Carvedilol 12.5mg tab ORAL SCH (08:53)
[2018-12-27] MEDS: Imdur 30mg tab ORAL SCH (08:54)
[2018-12-27] MEDS: Docusate 100mg cap ORAL SCH ×3 (08:54→17:14)
[2018-12-27] MEDS: Tamsulosin 0.4mg cap ORAL SCH ×2 (08:54→17:14)
[2018-12-27] MEDS: Bisacodyl EC 5mg tab ORAL SCH (08:54)
[2018-12-27] MEDS: Heparin 5000 units/ml inj SUBQ SCH ×2 (08:55→21:00)
--- NOTE | 2018-12-27 08:56 | Cardiology Progress Note ---
Assessment/Plan Status: stable Assessment/Plan Assessment/Plan Assessment/Plan 1. Accelerated hypertension with blood pressure of around 200. On clonidine 0.2 q8, Norvasc 10 daily, Lasix 40 mg bid, Coreg 25 bid, losartan 100 daily, Imdur 20 daily p.r.n. hydralazine. 2. History of CAD. Echo Nl EF. No CP and No acute ECG changes 3. Hyperlipidemia on Lipitor. 4. Renal failure. Further evaluation by Nephrology. 5. Hematuria. US. Multiple masslike lesions within the bladder. Cystoscopy is pending to evaluate for possible neoplasm OK to proceed with cystoscopy from cardiac perspective, no active cardiac conditions, low/medium risk of complications Subjective Cardiovascular: Reports: no symptoms Respiratory: Reports: no symptoms Gastrointestinal/Abdominal: Reports: no symptoms Genitourinary: Reports: no symptoms Subjective Coverage for [place] No acute events, for cystoscopy, vitals stable, no distress. BP elevated Objective Last 24 Hour Vital Signs Date Time Temp Pulse Resp B/P (MAP) Pulse Ox O2 Delivery O2 Flow Rate FiO2 12/27/18 05:15 156/82 12/27/18 04:00 98.4 72 19 156/82 (106) 95 12/27/18 00:00 110/63 12/27/18 00:00 98.1 68 20 110/63 (79) 96 12/26/18 21:16 168/65 12/26/18 21:00 Room Air 12/26/18 20:53 66 168/65 12/26/18 20:00 98.3 66 18 168/65 (99) 96 12/26/18 16:00 98.7 65 18 169/76 (107) 96 12/26/18 15:44 157/71 12/26/18 15:44 157/71 12/26/18 11:48 98.7 62 20 157/71 (99) 94 12/26/18 09:00 Room Air General Appearance: no apparent distress, alert EENT: PERRL/EOMI, normal ENT inspection, TMs normal, pharynx normal Neck: non-tender, normal alignment, supple, normal inspection, no JVD Rhythm: NSR Cardiovascular: normal peripheral pulses, normal rate, regular rhythm Respiratory/Chest: chest wall non-tender, lungs clear, normal breath sounds, no respiratory distress, no accessory muscle use Abdomen: normal bowel sounds, non tender, soft, no organomegaly, no mass Extremities: normal range of motion, non-tender, normal inspection, no calf tenderness, no swelling Neurologic: production broacher II-XII grossly normal, no motor/sensory deficits Intake and Output 12/26/18 12/27/18 19:00 07:00 Intake Total 740 ml Balance 740 ml Intake Oral 740 ml # Voids 14 Laboratory Tests Test 12/27/18 05:00 White Blood Count 5.6 K/UL (4.8-10.8) Red Blood Count 3.39 M/UL (4.70-6.10) L Hemoglobin 10.6 G/DL (14.2-18.0) L Hematocrit 33.1 % (42.0-52.0) L Mean Corpuscular Volume 98 FL (80-99) Mean Corpuscular Hemoglobin 31.3 PG (27.0-31.0) H Mean Corpuscular Hemoglobin Concent 32.0 G/DL (32.0-36.0) Red Cell Distribution Width 12.3 % (11.6-14.8) Platelet Count 94 K/UL (150-450) L Mean Platelet Volume 9.0 FL (6.5-10.1) Neutrophils (%) (Auto) % (45.0-75.0) Lymphocytes (%) (Auto) % (20.0-45.0) Monocytes (%) (Auto) % (1.0-10.0) Eosinophils (%) (Auto) % (0.0-3.0) Basophils (%) (Auto) % (0.0-2.0) Prothrombin Time 10.2 SEC (9.30-11.50) Prothromb Time International Ratio 1.0 (0.9-1.1) Activated Partial Thromboplast Time 30 SEC (23-33) Sodium Level 142 MMOL/L (136-145) Potassium Level 3.9 MMOL/L (3.5-5.1) Chloride Level 109 MMOL/L (98-107) H Carbon Dioxide Level 27 MMOL/L (21-32) Anion Gap 6 mmol/L (5-15) Blood Urea Nitrogen 28 mg/dL (7-18) H Creatinine 1.4 MG/DL (0.55-1.30) H Estimat Glomerular Filtration Rate mL/min (>60) Glucose Level 167 MG/DL (74-106) H Calcium Level 8.6 MG/DL (8.5-10.1) Phosphorus Level 2.1 MG/DL (2.5-4.9) L Magnesium Level 1.8 MG/DL (1.8-2.4) Total Bilirubin 0.4 MG/DL (0.2-1.0) Aspartate Amino Transf (AST/SGOT) 29 U/L (15-37) Alanine Aminotransferase (ALT/SGPT) 29 U/L (12-78) Alkaline Phosphatase 48 U/L (46-116) Total Protein 6.3 G/DL (6.4-8.2) L Albumin 2.8 G/DL (3.4-5.0) L Globulin 3.5 g/dL Albumin/Globulin Ratio 0.8 (1.0-2.7) L Grayson Henley MD Dec 27, 2018 08:55
[2018-12-27] MEDS: Carvedilol 25mg Tab ORAL SCH ×3 (09:00→21:18)
[2018-12-27] MEDS ORDERED: Potassium Phosphate 30 MM in NS 275 ML IV SCH (10:00)
--- NOTE | 2018-12-27 10:22 | General Progress Note ---
Assessment/Plan Problem List: (1) CHF (congestive heart failure) ICD Codes: I50.9 - Heart failure, unspecified SNOMED: 07724122 (2) Weak ICD Codes: R53.1 - Weakness SNOMED: 41437686 (3) Bladder mass ICD Codes: N32.89 - Other specified disorders of bladder SNOMED: 391483285 (4) Diabetes ICD Codes: E11.9 - Type 2 diabetes mellitus without complications SNOMED: 84938974 (5) HTN (hypertension) ICD Codes: I10 - Essential (primary) hypertension SNOMED: 73696735 (6) Anemia ICD Codes: D64.9 - Anemia, unspecified SNOMED: 252348716 (7) ARF (acute renal failure) ICD Codes: N17.9 - Acute kidney failure, unspecified SNOMED: 83369816 (8) UTI (urinary tract infection) ICD Codes: N39.0 - Urinary tract infection, site not specified SNOMED: 35646088, 8193103 (9) Hypertension ICD Codes: I10 - Essential (primary) hypertension SNOMED: 34472879 (10) ATN (acute tubular necrosis) ICD Codes: N17.0 - Acute kidney failure with tubular necrosis SNOMED: 67010104 Status: stable, progressing Assessment/Plan: bp bs control abx uro heme f/u dc if clear Subjective Constitutional: Reports: weakness Allergies: Coded Allergies: No Known Allergies (Unverified , 12/20/18) All Systems: reviewed and negative except above Subjective calm in bed Objective Last 24 Hour Vital Signs Date Time Temp Pulse Resp B/P (MAP) Pulse Ox O2 Delivery O2 Flow Rate FiO2 12/27/18 10:03 80 146/86 12/27/18 08:54 146/86 12/27/18 08:54 80 146/86 12/27/18 08:53 146/86 12/27/18 08:53 80 146/86 12/27/18 05:15 156/82 12/27/18 04:00 98.4 72 19 156/82 (106) 95 12/27/18 00:00 110/63 12/27/18 00:00 98.1 68 20 110/63 (79) 96 12/26/18 21:16 168/65 12/26/18 21:00 Room Air 12/26/18 20:53 66 168/65 12/26/18 20:00 98.3 66 18 168/65 (99) 96 12/26/18 16:00 98.7 65 18 169/76 (107) 96 12/26/18 15:44 157/71 12/26/18 15:44 157/71 12/26/18 11:48 98.7 62 20 157/71 (99) 94 Intake and Output 12/26/18 12/27/18 19:00 07:00 Intake Total 740 ml Balance 740 ml Intake Oral 740 ml # Voids 14 Laboratory Tests 12/27/18 05:00: White Blood Count 5.6, Red Blood Count 3.39L, Hemoglobin 10.6L, Hematocrit 33.1L , Mean Corpuscular Volume 98, Mean Corpuscular Hemoglobin 31.3H, Mean Corpuscular Hemoglobin Concent 32.0, Red Cell Distribution Width 12.3, Platelet Count 94L, Mean Platelet Volume 9.0, Neutrophils (%) (Auto) , Lymphocytes (%) ( Auto) , Monocytes (%) (Auto) , Eosinophils (%) (Auto) , Basophils (%) (Auto) , Prothrombin Time 10.2, Prothromb Time International Ratio 1.0, Activated Partial Thromboplast Time 30, Sodium Level 142, Potassium Level 3.9, Chloride Level 109H, Carbon Dioxide Level 27, Anion Gap 6, Blood Urea Nitrogen 28H, Creatinine 1.4H, Estimat Glomerular Filtration Rate , Glucose Level 167H, Calcium Level 8.6, Phosphorus Level 2.1L, Magnesium Level 1.8, Total Bilirubin 0.4, Aspartate Amino Transf (AST/SGOT) 29, Alanine Aminotransferase (ALT/SGPT) 29, Alkaline Phosphatase 48, Total Protein 6.3L, Albumin 2.8L, Globulin 3.5, Albumin/Globulin Ratio 0.8L Height (Feet): 6 Height (Inches): 0.00 Weight (Pounds): 179 General Appearance: lethargic EENT: normal ENT inspection Neck: normal alignment Cardiovascular: normal peripheral pulses, normal rate, regular rhythm Respiratory/Chest: chest wall non-tender, lungs clear, normal breath sounds Abdomen: normal bowel sounds, non tender, soft Extremities: normal inspection Edema: 1+ Arm (L), 1+ Arm (R), 1+ Leg (L), 1+ Leg (R), 1+ Pedal (L), 1+ Pedal ( R), 1+ Generalized Skin: normal pigmentation, warm/dry Jamie Gray DO Dec 27, 2018 10:21
--- NOTE | 2018-12-27 11:52 | Pulmonology Progress Note ---
Assessment/Plan Problems: (1) ATN (acute tubular necrosis) (2) Gross hematuria (3) Hypertension (4) CAD (coronary artery disease) (5) Hematuria Assessment/Plan h/h stable no new complains f/u by iv hydration urology consult reviewed, scheduled for cystoscopy doing better Subjective ROS Limited/Unobtainable: No Constitutional: Reports: no symptoms HEENT: Repors: no symptoms Respiratory: Reports: no symptoms Allergies: Coded Allergies: No Known Allergies (Unverified , 12/20/18) Objective Last 24 Hour Vital Signs Date Time Temp Pulse Resp B/P (MAP) Pulse Ox O2 Delivery O2 Flow Rate FiO2 12/27/18 10:03 80 146/86 12/27/18 08:54 146/86 12/27/18 08:54 80 146/86 12/27/18 08:53 146/86 12/27/18 08:53 80 146/86 12/27/18 05:15 156/82 12/27/18 04:00 98.4 72 19 156/82 (106) 95 12/27/18 00:00 110/63 12/27/18 00:00 98.1 68 20 110/63 (79) 96 12/26/18 21:16 168/65 12/26/18 21:00 Room Air 12/26/18 20:53 66 168/65 12/26/18 20:00 98.3 66 18 168/65 (99) 96 12/26/18 16:00 98.7 65 18 169/76 (107) 96 12/26/18 15:44 157/71 12/26/18 15:44 157/71 Intake and Output 12/26/18 12/27/18 19:00 07:00 Intake Total 740 ml Balance 740 ml Intake Oral 740 ml # Voids 14 General Appearance: WD/WN HEENT: normocephalic, atraumatic Respiratory/Chest: chest wall non-tender, lungs clear Cardiovascular: normal peripheral pulses, normal rate Abdomen: normal bowel sounds, soft, non tender Genitourinary: normal external genitalia Skin: no rash, no lesions Laboratory Tests 12/27/18 05:00: White Blood Count 5.6, Red Blood Count 3.39L, Hemoglobin 10.6L, Hematocrit 33.1L , Mean Corpuscular Volume 98, Mean Corpuscular Hemoglobin 31.3H, Mean Corpuscular Hemoglobin Concent 32.0, Red Cell Distribution Width 12.3, Platelet Count 94L, Mean Platelet Volume 9.0, Neutrophils (%) (Auto) , Lymphocytes (%) ( Auto) , Monocytes (%) (Auto) , Eosinophils (%) (Auto) , Basophils (%) (Auto) , Prothrombin Time 10.2, Prothromb Time International Ratio 1.0, Activated Partial Thromboplast Time 30, Sodium Level 142, Potassium Level 3.9, Chloride Level 109H, Carbon Dioxide Level 27, Anion Gap 6, Blood Urea Nitrogen 28H, Creatinine 1.4H, Estimat Glomerular Filtration Rate , Glucose Level 167H, Calcium Level 8.6, Phosphorus Level 2.1L, Magnesium Level 1.8, Total Bilirubin 0.4, Aspartate Amino Transf (AST/SGOT) 29, Alanine Aminotransferase (ALT/SGPT) 29, Alkaline Phosphatase 48, Total Protein 6.3L, Albumin 2.8L, Globulin 3.5, Albumin/Globulin Ratio 0.8L Current Medications Medications (Trade) Dose Ordered Sig/Sallie Route PRN Reason Start Time Stop Time Status Last Admin Dose Admin Acetaminophen (Tylenol) 650 mg Q4H PRN ORAL fever 12/20/18 20:30 01/19/19 20:29 Amlodipine Besylate (Norvasc) 10 mg DAILY ORAL 12/21/18 09:00 01/20/19 08:59 12/27/18 08:54 Atorvastatin Calcium (Lipitor) 20 mg BEDTIME ORAL 12/21/18 21:00 01/20/19 20:59 12/26/18 20:53 Bisacodyl (Dulcolax) 5 mg DAILY ORAL 12/21/18 09:00 01/20/19 08:59 12/27/18 08:54 Carvedilol (Coreg) 25 mg EVERY 12 HOURS ORAL 12/27/18 09:00 01/20/19 08:59 Ceftriaxone Sodium 1 gm/ Dextrose 55 ml @ 110 mls/hr Q24H IVPB 12/22/18 14:00 12/29/18 13:59 12/26/18 15:44 Clonidine HCl (Catapres Tab) 0.2 mg Q8H ORAL 12/25/18 16:00 01/21/19 07:59 12/27/18 08:53 Dextrose (Dextrose 50%) 25 ml Q30M PRN IV Hypoglycemia 12/20/18 20:30 01/19/19 20:29 Dextrose (Dextrose 50%) 50 ml Q30M PRN IV Hypoglycemia 12/20/18 20:30 01/19/19 20:29 Diphenhydramine HCl (Benadryl) 25 mg Q6H PRN ORAL Itching/Pruritis 12/20/18 20:30 01/19/19 20:29 Docusate Sodium (Colace) 100 mg THREE TIMES A DAY ORAL 12/21/18 18:00 01/20/19 17:59 12/27/18 08:54 Folic Acid (Folate) 3 mg DAILY ORAL 12/23/18 10:00 01/22/19 09:59 12/27/18 08:53 Heparin Sodium (Porcine) (Heparin 5000 units/ml) 5,000 units EVERY 12 HOURS SUBQ 12/21/18 09:00 01/19/19 21:46 12/22/18 21:33 Hydralazine HCl (Apresoline) 100 mg Q8HR ORAL 12/27/18 14:00 01/20/19 08:59 Hydromorphone HCl (Dilaudid) 2 mg Q6H PRN IVP Moderate Pain (Pain Scale 4-6) 12/21/18 18:00 12/28/18 17:59 12/25/18 08:11 Insulin Aspart (NovoLOG) BEFORE MEALS AND HS SUBQ 12/21/18 06:30 01/20/19 06:29 12/27/18 05:16 Isosorbide Mononitrate (Imdur) 60 mg DAILY ORAL 12/21/18 11:45 01/20/19 11:44 12/27/18 08:54 Lorazepam (Ativan 2mg/ml 1ml) 0.5 mg Q4H PRN IV For Anxiety 12/20/18 20:30 12/27/18 20:29 Minoxidil (Loniten) 2.5 mg Q4H PRN ORAL bp over 165 syst 12/25/18 12:00 01/24/19 11:59 Nitroglycerin (Ntg) 0.4 mg Q5M X 3 DOSES PRN SL Prn Chest Pain 12/20/18 20:30 01/19/19 20:29 Ondansetron HCl (Zofran) 4 mg Q6H PRN IVP Nausea & Vomiting 12/20/18 20:30 01/19/19 20:29 Pantoprazole (Protonix) 40 mg EVERY 12 HOURS ORAL 12/21/18 21:00 01/20/19 20:59 12/27/18 08:53 Potassium Phosphate 30 mm/ Sodium Chloride 285 ml @ 47.5 mls/hr ONCE IV 12/27/18 10:00 12/27/18 16:00 12/27/18 10:48 Sodium Chloride 1,000 ml @ 30 mls/hr Q24H IVLG 12/26/18 12:00 01/19/19 11:59 12/25/18 21:13 Tamsulosin HCl (Flomax) 0.4 mg BID ORAL 12/21/18 11:45 01/20/19 11:44 12/27/18 08:54 Zolpidem Tartrate (Ambien) 5 mg HSPRN PRN ORAL Insomnia 12/20/18 20:30 12/27/18 20:29 12/24/18 01:58 Adam Moyer MD Dec 27, 2018 11:52
--- NOTE | 2018-12-27 11:59 | Anethesia Preoperative Eval ---
Anesthesia Pre-op PMH/ROS General Date of Evaluation: Dec 27, 2018 Time of Evaluation: 12:19 Anesthesiologist: Cruz ASA Score: ASA 4 Mallampati Score Class I : Soft palate, uvula, fauces, pillars visible Class II: Soft palate, uvula, fauces visible Class III: Soft palate, base of uvula visible Class IV: Only hard plate visible Mallampati Classification: Class II Surgeon: Marco Diagnosis: Hematuria Surgical Procedure: Cystoscopy, TURBT Anesthesia History: none Family History: no anesthesia problems Allergies: Coded Allergies: No Known Allergies (Unverified , 12/20/18) Medications: see eMAR Patient NPO?: Yes Past Medical History Cardiovascular: Reports: HTN, CAD - CHF Gastrointestinal/Genitourinary: Reports: other - Acute Renal Failure Neurologic/Psychiatric: Reports: CVA, other - Failure To Thrive Endocrine: Reports: DM Hematology/Immune: Reports: anemia Anesthesia Pre-op Phys. Exam Physician Exam Last Vital Signs Date Time Temp Pulse Resp B/P (MAP) Pulse Ox O2 Delivery O2 Flow Rate FiO2 12/27/18 10:03 80 146/86 12/27/18 04:00 98.4 19 95 12/26/18 21:00 Room Air 12/26/18 01:10 21 Constitutional: NAD Neurologic: CN 2-12 intact Cardiovascular: RRR Respiratory: CTA Gastrointestinal: S/NT/ND Airway Exam Mallampati Score: Class II MO: limited ROM: limited Teeth: missing, intact Anesthesia Pre-op A/P Labs Hematology Test 12/27/18 05:00 White Blood Count 5.6 K/UL (4.8-10.8) Red Blood Count 3.39 M/UL (4.70-6.10) L Hemoglobin 10.6 G/DL (14.2-18.0) L Hematocrit 33.1 % (42.0-52.0) L Mean Corpuscular Volume 98 FL (80-99) Mean Corpuscular Hemoglobin 31.3 PG (27.0-31.0) H Mean Corpuscular Hemoglobin Concent 32.0 G/DL (32.0-36.0) Red Cell Distribution Width 12.3 % (11.6-14.8) Platelet Count 94 K/UL (150-450) L Mean Platelet Volume 9.0 FL (6.5-10.1) Neutrophils (%) (Auto) % (45.0-75.0) Lymphocytes (%) (Auto) % (20.0-45.0) Monocytes (%) (Auto) % (1.0-10.0) Eosinophils (%) (Auto) % (0.0-3.0) Basophils (%) (Auto) % (0.0-2.0) Coagulation Test 12/27/18 05:00 Prothrombin Time 10.2 SEC (9.30-11.50) Prothromb Time International Ratio 1.0 (0.9-1.1) Activated Partial Thromboplast Time 30 SEC (23-33) Chemistry Test 12/27/18 05:00 Sodium Level 142 MMOL/L (136-145) Potassium Level 3.9 MMOL/L (3.5-5.1) Chloride Level 109 MMOL/L (98-107) H Carbon Dioxide Level 27 MMOL/L (21-32) Anion Gap 6 mmol/L (5-15) Blood Urea Nitrogen 28 mg/dL (7-18) H Creatinine 1.4 MG/DL (0.55-1.30) H Estimat Glomerular Filtration Rate mL/min (>60) Glucose Level 167 MG/DL (74-106) H Calcium Level 8.6 MG/DL (8.5-10.1) Phosphorus Level 2.1 MG/DL (2.5-4.9) L Magnesium Level 1.8 MG/DL (1.8-2.4) Total Bilirubin 0.4 MG/DL (0.2-1.0) Aspartate Amino Transf (AST/SGOT) 29 U/L (15-37) Alanine Aminotransferase (ALT/SGPT) 29 U/L (12-78) Alkaline Phosphatase 48 U/L (46-116) Total Protein 6.3 G/DL (6.4-8.2) L Albumin 2.8 G/DL (3.4-5.0) L Globulin 3.5 g/dL Albumin/Globulin Ratio 0.8 (1.0-2.7) L Risk Assessment & Plan Assessment: ASA 4 Plan: GA Status Change Before Surgery: No Pre-Antibiotics Drug: Albert Mabry MD Dec 27, 2018 11:59
--- NOTE | 2018-12-27 13:07 | NUR ---
NURSE NOTES: BP 180/78 PRN Minoxidil given, consent signed by patient for scheduled procedure for tomorrow. pt. aware NPO status after midnight.
--- NOTE | 2018-12-27 13:17 | Nephrology Progress Note ---
Assessment/Plan Problem List: (1) Acute renal injury Assessment: Cr lowering (2) Gross hematuria (3) Bladder mass (4) Hypertension (5) Diabetes Assessment ANGELA - HTN OOC - Hematuria- Likely UTI Dehydration DM CAD Plan Uro eval noted Urine culture- Flomax Rocephin Slow hydrate 2D echo Keep BP and BS in check per orders due cysto as clear by cardio Multiple masslike lesions within the bladder. Further evaluation with cystoscopy is recommended to evaluate for possible neoplasm. Multiple parapelvic renal cysts Subjective ROS Limited/Unobtainable: No Constitutional: Reports: malaise Objective Objective Last 24 Hour Vital Signs Date Time Temp Pulse Resp B/P (MAP) Pulse Ox O2 Delivery O2 Flow Rate FiO2 12/27/18 13:00 180/73 12/27/18 12:55 98.6 64 18 180/73 (108) 98 12/27/18 10:03 80 146/86 12/27/18 08:54 146/86 12/27/18 08:54 80 146/86 12/27/18 08:53 146/86 12/27/18 08:53 80 146/86 12/27/18 08:00 97.8 80 19 146/84 (104) 99 12/27/18 05:15 156/82 12/27/18 04:00 98.4 72 19 156/82 (106) 95 12/27/18 00:00 110/63 12/27/18 00:00 98.1 68 20 110/63 (79) 96 12/26/18 21:16 168/65 12/26/18 21:00 Room Air 12/26/18 20:53 66 168/65 12/26/18 20:00 98.3 66 18 168/65 (99) 96 12/26/18 16:00 98.7 65 18 169/76 (107) 96 12/26/18 15:44 157/71 12/26/18 15:44 157/71 Intake and Output 12/26/18 12/27/18 19:00 07:00 Intake Total 740 ml Balance 740 ml Intake Oral 740 ml # Voids 14 Laboratory Tests 12/27/18 05:00: White Blood Count 5.6, Red Blood Count 3.39L, Hemoglobin 10.6L, Hematocrit 33.1L , Mean Corpuscular Volume 98, Mean Corpuscular Hemoglobin 31.3H, Mean Corpuscular Hemoglobin Concent 32.0, Red Cell Distribution Width 12.3, Platelet Count 94L, Mean Platelet Volume 9.0, Neutrophils (%) (Auto) , Lymphocytes (%) ( Auto) , Monocytes (%) (Auto) , Eosinophils (%) (Auto) , Basophils (%) (Auto) , Prothrombin Time 10.2, Prothromb Time International Ratio 1.0, Activated Partial Thromboplast Time 30, Sodium Level 142, Potassium Level 3.9, Chloride Level 109H, Carbon Dioxide Level 27, Anion Gap 6, Blood Urea Nitrogen 28H, Creatinine 1.4H, Estimat Glomerular Filtration Rate , Glucose Level 167H, Calcium Level 8.6, Phosphorus Level 2.1L, Magnesium Level 1.8, Total Bilirubin 0.4, Aspartate Amino Transf (AST/SGOT) 29, Alanine Aminotransferase (ALT/SGPT) 29, Alkaline Phosphatase 48, Total Protein 6.3L, Albumin 2.8L, Globulin 3.5, Albumin/Globulin Ratio 0.8L Height (Feet): 6 Height (Inches): 0.00 Weight (Pounds): 179 General Appearance: no apparent distress Objective no change Russell Sofia MD Dec 27, 2018 13:17
--- NOTE | 2018-12-27 13:58 | Hematology/Onc Progress Note ---
Assessment/Plan Assessment/Plan Assessment and Recs: # Multiple bladder masses CT shows Scattered eccentric mural thickening/masses in the urinary bladder wall, correlating with findings on recent ultrasound. No significant perivesical stranding. Recommend further evaluation with cystoscopy. --> urology consulted, recs for cysto --> may need cystoscopy, eval for resection --> plan for cysto, potential for bladder tumor resection --> if not able for full resection, may need treatment, chemo # Thrombocytopenia - potential causes multifactorial, evaluate liver and viral etiologies to begin, also could be related to underlying medications patient has received. --> Hep panel and HIV -> NEGATIVE --> US abd showed bladder masses-->ct reviewed as well --> Peripheral smear ordered to evaluate for blasts /schistocytes --> none noted --> abx and other meds have been reviewed --> ok for ppx if plt >50k w/ either heparin or lovenox --> trend plt 103-->92k-->90k # Anemia of iron deficiency likely due to hematuria --> iv iron started x 5 days low ferritin --> likely due to hematuria --> have started on ivf and consider uro prn cysto # Acute renal injury --> cr has improved 2.3-->1.8-->2.3->1.6-->1.4-->1.4 --> per renal recs --> volume expansion # HTN --> cards consulted # Hematuria # UTI (urinary tract infection) # Dehydration The timing of this note does not necessarily reflect the time of the patient was seen. GREATLY APPRECIATE CONSULTATION. Subjective Constitutional: Denies: no symptoms, chills, fever, malaise, weakness, other Cardiovascular: Denies: no symptoms, chest pain, edema, irregular heart rate, lightheadedness, palpitations, syncope, other Respiratory: Denies: no symptoms, cough, shortness of breath, SOB with excertion, SOB at rest, sputum, wheezing, other Gastrointestinal/Abdominal: Denies: no symptoms, abdomen distended, abdominal pain, black stools, tarry stools, blood in stool, constipated, diarrhea, difficulty swallowing, nausea, poor appetite, poor fluid intake, rectal bleeding , vomiting, other Neurologic/Psychiatric: Denies: no symptoms, anxiety, depressed, emotional problems, headache, numbness, paresthesia, pre-existing deficit, seizure, tingling, tremors, weakness, other Endocrine: Denies: no symptoms, excessive sweating, flushing, intolerance to cold, intolerance to heat, increased hunger, increased thirst, increased urine, unexplained weight gain, unexplained weight loss, other Allergies: Coded Allergies: No Known Allergies (Unverified , 12/20/18) Subjective 12/22: no events noted, no bleeding, ct ordered for the us findings with multiple masses in bladder, cysto recommended 12/24: no events, no bleeding, no night sweats noted, no chills reported 12/25: no fevers, no chills, no major changes, cysto for 12/26: awaiting further uro recs, feeling better, no f/c, prbc prn 12/27: no events, no bleeding, no night sweats, cysto pending Objective Objective Current Medications Medications (Trade) Dose Ordered Sig/Sallie Route PRN Reason Start Time Stop Time Status Last Admin Dose Admin Acetaminophen (Tylenol) 650 mg Q4H PRN ORAL fever 12/20/18 20:30 01/19/19 20:29 Amlodipine Besylate (Norvasc) 10 mg DAILY ORAL 12/21/18 09:00 01/20/19 08:59 12/27/18 08:54 Atorvastatin Calcium (Lipitor) 20 mg BEDTIME ORAL 12/21/18 21:00 01/20/19 20:59 12/26/18 20:53 Bisacodyl (Dulcolax) 5 mg DAILY ORAL 12/21/18 09:00 01/20/19 08:59 12/27/18 08:54 Carvedilol (Coreg) 25 mg EVERY 12 HOURS ORAL 12/27/18 09:00 01/20/19 08:59 Ceftriaxone Sodium 1 gm/ Dextrose 55 ml @ 110 mls/hr Q24H IVPB 12/22/18 14:00 12/29/18 13:59 12/26/18 15:44 Clonidine HCl (Catapres Tab) 0.2 mg Q8H ORAL 12/25/18 16:00 01/21/19 07:59 12/27/18 08:53 Dextrose (Dextrose 50%) 25 ml Q30M PRN IV Hypoglycemia 12/20/18 20:30 01/19/19 20:29 Dextrose (Dextrose 50%) 50 ml Q30M PRN IV Hypoglycemia 12/20/18 20:30 01/19/19 20:29 Diphenhydramine HCl (Benadryl) 25 mg Q6H PRN ORAL Itching/Pruritis 12/20/18 20:30 01/19/19 20:29 Docusate Sodium (Colace) 100 mg THREE TIMES A DAY ORAL 12/21/18 18:00 01/20/19 17:59 12/27/18 13:00 Folic Acid (Folate) 3 mg DAILY ORAL 12/23/18 10:00 01/22/19 09:59 12/27/18 08:53 Heparin Sodium (Porcine) (Heparin 5000 units/ml) 5,000 units EVERY 12 HOURS SUBQ 12/21/18 09:00 01/19/19 21:46 12/22/18 21:33 Hydralazine HCl (Apresoline) 100 mg Q8HR ORAL 12/27/18 14:00 01/20/19 08:59 Hydromorphone HCl (Dilaudid) 2 mg Q6H PRN IVP Moderate Pain (Pain Scale 4-6) 12/21/18 18:00 12/28/18 17:59 12/25/18 08:11 Insulin Aspart (NovoLOG) BEFORE MEALS AND HS SUBQ 12/21/18 06:30 01/20/19 06:29 12/27/18 12:22 Isosorbide Mononitrate (Imdur) 60 mg DAILY ORAL 12/21/18 11:45 01/20/19 11:44 12/27/18 08:54 Lorazepam (Ativan 2mg/ml 1ml) 0.5 mg Q4H PRN IV For Anxiety 12/20/18 20:30 12/27/18 20:29 Minoxidil (Loniten) 2.5 mg Q4H PRN ORAL bp over 165 syst 12/25/18 12:00 01/24/19 11:59 12/27/18 13:00 Nitroglycerin (Ntg) 0.4 mg Q5M X 3 DOSES PRN SL Prn Chest Pain 12/20/18 20:30 01/19/19 20:29 Ondansetron HCl (Zofran) 4 mg Q6H PRN IVP Nausea & Vomiting 12/20/18 20:30 01/19/19 20:29 Pantoprazole (Protonix) 40 mg EVERY 12 HOURS ORAL 12/21/18 21:00 01/20/19 20:59 12/27/18 08:53 Potassium Phosphate 30 mm/ Sodium Chloride 285 ml @ 47.5 mls/hr ONCE IV 12/27/18 10:00 12/27/18 16:00 12/27/18 10:48 Sodium Chloride 1,000 ml @ 30 mls/hr Q24H IVLG 12/26/18 12:00 01/19/19 11:59 12/25/18 21:13 Tamsulosin HCl (Flomax) 0.4 mg BID ORAL 12/21/18 11:45 01/20/19 11:44 12/27/18 08:54 Zolpidem Tartrate (Ambien) 5 mg HSPRN PRN ORAL Insomnia 12/20/18 20:30 12/27/18 20:29 12/24/18 01:58 Last 24 Hour Vital Signs Date Time Temp Pulse Resp B/P (MAP) Pulse Ox O2 Delivery O2 Flow Rate FiO2 12/27/18 13:00 180/73 12/27/18 12:55 98.6 64 18 180/73 (108) 98 12/27/18 10:03 80 146/86 12/27/18 08:54 146/86 12/27/18 08:54 80 146/86 12/27/18 08:53 146/86 12/27/18 08:53 80 146/86 12/27/18 08:00 97.8 80 19 146/84 (104) 99 12/27/18 05:15 156/82 12/27/18 04:00 98.4 72 19 156/82 (106) 95 12/27/18 00:00 110/63 12/27/18 00:00 98.1 68 20 110/63 (79) 96 12/26/18 21:16 168/65 12/26/18 21:00 Room Air 12/26/18 20:53 66 168/65 12/26/18 20:00 98.3 66 18 168/65 (99) 96 12/26/18 16:00 98.7 65 18 169/76 (107) 96 12/26/18 15:44 157/71 12/26/18 15:44 157/71 12/26/18 11:48 98.7 62 20 157/71 (99) 94 12/26/18 09:00 Room Air 12/26/18 08:22 164/71 12/26/18 08:21 164/71 12/26/18 08:21 71 164/71 12/26/18 08:20 71 164/71 12/26/18 08:00 98.9 71 18 164/71 (102) 100 12/26/18 05:37 197/88 12/26/18 04:00 98.3 66 19 197/88 (124) 95 12/26/18 04:00 98.3 66 19 134/90 (105) 98 12/26/18 01:10 72 16 97 Room Air 21 12/26/18 00:49 134/90 12/26/18 00:00 98.5 66 17 134/90 (105) 95 12/25/18 21:10 157/88 12/25/18 21:00 65 157/88 12/25/18 21:00 Room Air 12/25/18 20:00 98.4 65 18 157/88 (111) 98 12/25/18 19:00 76 18 100 Room Air 21 12/25/18 18:48 80 20 98 Room Air 21 12/25/18 16:02 166/73 12/25/18 16:00 98.3 63 21 166/73 (104) 98 12/25/18 14:39 157/65 12/25/18 14:02 75 18 100 Room Air 21 Intake and Output 12/26/18 12/27/18 19:00 07:00 Intake Total 740 ml Balance 740 ml Intake Oral 740 ml # Voids 14 Labs Test 12/25/18 05:45 12/26/18 05:35 12/27/18 05:00 White Blood Count 5.2 K/UL (4.8-10.8) 5.3 K/UL (4.8-10.8) 5.6 K/UL (4.8-10.8) Red Blood Count 3.36 M/UL (4.70-6.10) 3.20 M/UL (4.70-6.10) 3.39 M/UL (4.70-6.10) Hemoglobin 10.7 G/DL (14.2-18.0) 10.1 G/DL (14.2-18.0) 10.6 G/DL (14.2-18.0) Hematocrit 33.2 % (42.0-52.0) 31.4 % (42.0-52.0) 33.1 % (42.0-52.0) Mean Corpuscular Volume 99 FL (80-99) 98 FL (80-99) 98 FL (80-99) Mean Corpuscular Hemoglobin 31.7 PG (27.0-31.0) 31.6 PG (27.0-31.0) 31.3 PG (27.0-31.0) Mean Corpuscular Hemoglobin Concent 32.1 G/DL (32.0-36.0) 32.1 G/DL (32.0-36.0) 32.0 G/DL (32.0-36.0) Red Cell Distribution Width 12.8 % (11.6-14.8) 13.0 % (11.6-14.8) 12.3 % (11.6-14.8) Platelet Count 86 K/UL (150-450) 90 K/UL (150-450) 94 K/UL (150-450) Mean Platelet Volume 9.4 FL (6.5-10.1) 9.2 FL (6.5-10.1) 9.0 FL (6.5-10.1) Neutrophils (%) (Auto) % (45.0-75.0) % (45.0-75.0) % (45.0-75.0) Lymphocytes (%) (Auto) % (20.0-45.0) % (20.0-45.0) % (20.0-45.0) Monocytes (%) (Auto) % (1.0-10.0) % (1.0-10.0) % (1.0-10.0) Eosinophils (%) (Auto) % (0.0-3.0) % (0.0-3.0) % (0.0-3.0) Basophils (%) (Auto) % (0.0-2.0) % (0.0-2.0) % (0.0-2.0) Differential Total Cells Counted 100 100 Neutrophils % (Manual) 61 % (45-75) 64 % (45-75) Lymphocytes % (Manual) 25 % (20-45) 26 % (20-45) Monocytes % (Manual) 12 % (1-10) 9 % (1-10) Eosinophils % (Manual) 1 % (0-3) 1 % (0-3) Basophils % (Manual) 1 % (0-2) 0 % (0-2) Band Neutrophils 0 % (0-8) 0 % (0-8) Platelet Estimate Decreased Decreased Platelet Morphology Normal Normal Hypochromasia 1+ 1+ Anisocytosis 1+ Sodium Level 144 MMOL/L (136-145) 143 MMOL/L (136-145) 142 MMOL/L (136-145) Potassium Level 4.0 MMOL/L (3.5-5.1) 4.0 MMOL/L (3.5-5.1) 3.9 MMOL/L (3.5-5.1) Chloride Level 110 MMOL/L (98-107) 109 MMOL/L (98-107) 109 MMOL/L (98-107) Carbon Dioxide Level 28 MMOL/L (21-32) 28 MMOL/L (21-32) 27 MMOL/L (21-32) Anion Gap 6 mmol/L (5-15) 6 mmol/L (5-15) 6 mmol/L (5-15) Blood Urea Nitrogen 32 mg/dL (7-18) 28 mg/dL (7-18) 28 mg/dL (7-18) Creatinine 1.4 MG/DL (0.55-1.30) 1.4 MG/DL (0.55-1.30) 1.4 MG/DL (0.55-1.30) Estimat Glomerular Filtration Rate mL/min (>60) mL/min (>60) mL/min (>60) Glucose Level 152 MG/DL (74-106) 167 MG/DL (74-106) 167 MG/DL (74-106) Calcium Level 8.6 MG/DL (8.5-10.1) 8.6 MG/DL (8.5-10.1) 8.6 MG/DL (8.5-10.1) Prothrombin Time 10.4 SEC (9.30-11.50) 10.2 SEC (9.30-11.50) Prothromb Time International Ratio 1.0 (0.9-1.1) 1.0 (0.9-1.1) Activated Partial Thromboplast Time 30 SEC (23-33) 30 SEC (23-33) Phosphorus Level 2.6 MG/DL (2.5-4.9) 2.1 MG/DL (2.5-4.9) Magnesium Level 1.8 MG/DL (1.8-2.4) 1.8 MG/DL (1.8-2.4) Total Bilirubin 0.3 MG/DL (0.2-1.0) 0.4 MG/DL (0.2-1.0) Direct Bilirubin < 0.1 MG/DL (0.0-0.3) Aspartate Amino Transf (AST/SGOT) 29 U/L (15-37) 29 U/L (15-37) Alanine Aminotransferase (ALT/SGPT) 26 U/L (12-78) 29 U/L (12-78) Alkaline Phosphatase 47 U/L (46-116) 48 U/L (46-116) Total Protein 6.1 G/DL (6.4-8.2) 6.3 G/DL (6.4-8.2) Albumin 2.7 G/DL (3.4-5.0) 2.8 G/DL (3.4-5.0) Globulin 3.5 g/dL Albumin/Globulin Ratio 0.8 (1.0-2.7) Height (Feet): 6 Height (Inches): 0.00 Weight (Pounds): 179 Objective Physical Exam: Vitals: reviewed General Appearance: NAD HEENT: normocephalic, atraumatic Neck: non-tender, normal alignment Respiratory/Chest: normal breath sounds bilaterally Cardiovascular/Chest: normal peripheral pulses, normal rate Abdomen: normal bowel sounds, soft, nontender Extremities: normal range of motion + clots noted in urinal Skin: no rash Marcelo Mcallister MD Dec 27, 2018 13:58
[2018-12-27] MEDS: cefTRIAXone 1 GM in D5W 55 ML IVPB SCH (14:21)
[2018-12-27] MEDS: HydrALAZINE 50mg tab ORAL SCH ×2 (14:21→21:19)
--- NOTE | 2018-12-27 16:52 | NUR ---
DISCHARGE PLANNING DISCHARGE ORDER NOTED Patient will D/C 12/28/18 Patient has been accepted to; [facility] [id number] Bed: 405-A Skilled [phone] for Nurse to Nurse report
--- NOTE | 2018-12-27 19:52 | NUR ---
NURSE NOTES: Received report from MATT Munoz. Patient alert x4. On room air, no signs of distress or labored breathing. IV intact, patent, and infusing IV fluids. Bed in lowest position with call light in reach. Will continue with plan of care.
--- NOTE | 2018-12-27 20:05 | NUR ---
HAND-OFF: Report given to MATT Kwok patient stable condition.
[2018-12-27] MEDS: Atorvastatin 20mg tab ORAL SCH (21:19)
[2018-12-28] VITALS (18 sets, daily range): BP systolic 143–218; BP diastolic 61–88
--- NOTE | 2018-12-28 00:10 | NUR ---
NURSE NOTES: Patient refused scheduled BP medication or the alternative of a PRN BP med despite having a BP of 173/64. RN attempted to explain the risks of not taking the medication. Patient stated "I've always had a high blood pressure and I'm fine. Let me be." Charge nurse aware.
[2018-12-28] MEDS: HydrALAZINE 50mg tab ORAL SCH ×3 (06:00→21:42)
[2018-12-28] MEDS: NovoLOG Insulin Flexpen SUBQ SCH ×4 (06:21→21:00)
[2018-12-28] MEDS ORDERED: fentaNYL 100 mcg/2 mL IV ONE (07:04)
[2018-12-28] MEDS ORDERED: Iothalamate Meglumine 60% 30ML INJ ONE (07:10)
[2018-12-28] MEDS ORDERED: Propofol 200mg/20ml IV ONE ×2 (07:13→08:24)
[2018-12-28] MEDS ORDERED: Lidocaine 1% MPF 10mg/ml 5ml ONE (07:13)
--- NOTE | 2018-12-28 07:16 | NUR ---
HAND-OFF: Report given to Alexy Miranda RN (Jamie).
[2018-12-28] MEDS ORDERED: Succinylcholine 20mg/ml 10ml vial ONE (07:20)
[2018-12-28] MEDS ORDERED: cefOXitin 1gm Inj ONE (07:20)
[2018-12-28] MEDS ORDERED: NS Irrig 1000ml ONE (07:30)
[2018-12-28] MEDS ORDERED: NS Irrig 4000ml IRRIG ONE ×4 (07:30→08:30)
[2018-12-28] MEDS ORDERED: Sterile Water Irrig 1000ml IRRIG ONE (07:30)
--- NOTE | 2018-12-28 07:47 | Pre-Procedure Note/Attestation ---
Pre-Procedure Note/Attestation Complete Prior to Procedure Planned Procedure: not applicable Procedure Narrative: cysto, TURBT Indications for Procedure Pre-Operative Diagnosis: hematuria Attestation I attest that I discussed the nature of the procedure; its benefits; risks and complications; and alternatives (and the risks and benefits of such alternatives ), prior to the procedure, with the patient (or the patient's legal senior customer service representative). I attest that, if there was a reasonable possibility of needing a blood transfusion, the patient (or the patient's legal senior customer service representative) was given the [facility] standardized written summary, pursuant to the Vas[place] Elvie Blood Safety Act ([place] Health and Safety Code # 1645, as amended). I attest that I re-evaluated the patient just prior to the surgery and that there has been no change in the patient's H&P, except as documented below: Cristian Lara M.D. Dec 28, 2018 07:46
--- NOTE | 2018-12-28 07:50 | NUR ---
NURSE NOTES: Received report from MATT Kwok. Pt is currently at surgery for cystoscopy with transurethral resection of bladder tumor. Will continue to monitor once pt gets back from the surgery
--- NOTE | 2018-12-28 08:00 | NUR ---
P.T Note: P.T services not given.Pt is currently at surgery for cystoscopy with transurethral resection of bladder tumor. Will need new order to resume P.T. S/P surgery. DC P.T services.
--- NOTE | 2018-12-28 08:30 | NUR ---
P.T Weekly Progress Notes: Pt demonstrated slow however steady progress during the course of P.T. Pt currently require MIN/CGA X 1 for bed mobilities and transfer activities. Pt able to ambulate average distance of 150 ft using the FWW. Overall strength of 4-/5 with F endurance. Pt highly motivated and participative in therapy. No major c/o was reported. Pt continues to require verbal cues to give emphasis on safety precautions with mobility transitions. Pt should continue to benefit from skilled P.T services to improve strength, balance and endurance to increase mobility independence and safety. PLAN:Pt is currently at surgery for cystoscopy with transurethral resection of bladder tumor therefore will hold P.T services until cleared by physician.
[2018-12-28] MEDS: Bisacodyl EC 5mg tab ORAL SCH (09:00)
[2018-12-28] MEDS: Heparin 5000 units/ml inj SUBQ SCH ×2 (09:00→20:58)
[2018-12-28] MEDS: Docusate 100mg cap ORAL SCH ×3 (09:00→18:00)
[2018-12-28] MEDS: Carvedilol 25mg Tab ORAL SCH ×2 (09:00→20:57)
[2018-12-28] MEDS: Tamsulosin 0.4mg cap ORAL SCH ×2 (09:00→18:00)
[2018-12-28] MEDS: Imdur 30mg tab ORAL SCH (09:00)
--- NOTE | 2018-12-28 09:03 | Brief Operative Note ---
Immediate Post Operative Note Operative Note Pre-op Diagnosis: hematuria Procedure: cysto, TURBT large Post-op Diagnosis: same Post-op Diagnosis: same as pre-op Findings: consistent w/pre-op dx studies Surgeon: chris Anesthesiologist: sheryl yang Anesthesia: general Specimen: yes Complications: none Condition: stable Fluids: 500 mL Estimated Blood Loss: minimal Drains: other - [address] richardson Implant(s) used?: No Cristian Lara M.D. Dec 28, 2018 09:03
--- NOTE | 2018-12-28 09:05 | Urology Progress Note ---
Assessment/Plan Status: stable, progressing Assessment/Plan: Tolerated bladder tumor resection well. Unfortunately greater part of the bladder is involved and essentially replaced all normal bladder with tumor. I can not resect all the tumors. Patient needs a radical cystectomy (removal of bladder) or radiation/chemotherapy at higher level of care. 1. recommend transfer to higher level of care for cystectomy 2. continue richardson, keep irrigation to maintain light pink urine. Subjective Date patient seen: Dec 28, 2018 ROS Limited/Unobtainable: Yes Allergies: Coded Allergies: No Known Allergies (Unverified , 12/20/18) All Systems: reviewed and negative except above Subjective tolerated bladder tumor resection well. Objective Last 24 Hour Vital Signs Date Time Temp Pulse Resp B/P (MAP) Pulse Ox O2 Delivery O2 Flow Rate FiO2 12/28/18 08:00 177/61 12/28/18 06:00 177/61 12/28/18 04:00 98.3 60 20 177/61 (99) 98 12/28/18 00:00 173/64 12/28/18 00:00 97.9 69 18 173/64 (100) 97 12/27/18 21:19 175/67 12/27/18 21:18 71 175/67 12/27/18 21:00 Room Air 12/27/18 20:00 97.4 71 18 175/67 (103) 98 12/27/18 17:14 180/73 12/27/18 16:00 98.4 82 18 162/68 (99) 97 12/27/18 14:21 180/73 12/27/18 13:40 68 157/71 (99) 12/27/18 13:00 180/73 12/27/18 12:55 98.6 64 18 180/73 (108) 98 12/27/18 10:03 80 146/86 Intake and Output 12/27/18 12/28/18 19:00 07:00 Intake Total 720 ml Output Total 800 ml Balance -80 ml Intake Oral 720 ml Output Urine Total 800 ml # Voids 3 5 Height (Feet): 6 Height (Inches): 0.00 Weight (Pounds): 178 General Appearance: no apparent distress Cristian Lara M.D. Dec 28, 2018 09:05
--- NOTE | 2018-12-28 09:18 | Immediate Post-Op Evaluation ---
Immediate Post-Op Evalulation Immediate Post-Op Evalulation Procedure: Cysto, resection of bladder tumor Date of Evaluation: Dec 28, 2018 Time of Evaluation: 09:16 IV Fluids: 300 Blood Products: none Estimated Blood Loss: min Urinary Output: n/a Blood Pressure Systolic: 163 Blood Pressure Diastolic: 74 Pulse Rate: 68 Respiratory Rate: 22 O2 Sat by Pulse Oximetry: 98 Temperature (Fahrenheit): 97.5 Pain Score (1-10): 1 Nausea: No Vomiting: No Complications none Patient Status: reacts, patent, none Hydration Status: adequate Marques Abreu MD Dec 28, 2018 09:18
[2018-12-28] MEDS: Hydromorphone 0.5mg/0.5ml inj IVP PRN ×2 (09:33→10:11)
[2018-12-28] MEDS: cloNIDine 0.2mg Tab ORAL SCH ×2 (10:00→18:00)
--- NOTE | 2018-12-28 10:14 | Cardiology Progress Note ---
Assessment/Plan Status: stable Assessment/Plan Assessment/Plan Assessment/Plan 1. Accelerated hypertension with blood pressure of around 200. On clonidine 0.2 q8, Norvasc 10 daily, Lasix 40 mg bid, Coreg 25 bid, losartan 100 daily, Imdur 20 daily p.r.n. hydralazine. 2. History of CAD. Echo Nl EF. No CP and No acute ECG changes 3. Hyperlipidemia on Lipitor. 4. Renal failure. Further evaluation by Nephrology. 5. Hematuria. US. Multiple masslike lesions within the bladder. s/p partial resection Transfer to [facility] for full cystectomy and chemo/radiation Subjective Cardiovascular: Reports: no symptoms Respiratory: Reports: no symptoms Gastrointestinal/Abdominal: Reports: no symptoms Genitourinary: Reports: no symptoms Subjective Coverage for Toluie S/p partial bladder resection, no complications, needs transfer to [facility] for complete removal and higher level of care Objective Last 24 Hour Vital Signs Date Time Temp Pulse Resp B/P (MAP) Pulse Ox O2 Delivery O2 Flow Rate FiO2 12/28/18 10:07 67 199/81 12/28/18 10:05 97.7 12/28/18 09:47 218/88 12/28/18 09:30 72 18 158/75 100 Nasal Cannula 3 12/28/18 09:20 71 15 143/61 99 Nasal Cannula 3 12/28/18 09:18 68 22 98 12/28/18 09:14 97.5 67 20 163/74 100 Nasal Cannula 3 12/28/18 08:00 177/61 12/28/18 06:00 177/61 12/28/18 04:00 98.3 60 20 177/61 (99) 98 12/28/18 00:00 173/64 12/28/18 00:00 97.9 69 18 173/64 (100) 97 12/27/18 21:19 175/67 12/27/18 21:18 71 175/67 12/27/18 21:00 Room Air 12/27/18 20:00 97.4 71 18 175/67 (103) 98 12/27/18 17:14 180/73 12/27/18 16:00 98.4 82 18 162/68 (99) 97 12/27/18 14:21 180/73 12/27/18 13:40 68 157/71 (99) 12/27/18 13:00 180/73 12/27/18 12:55 98.6 64 18 180/73 (108) 98 General Appearance: no apparent distress, alert EENT: PERRL/EOMI, normal ENT inspection, TMs normal, pharynx normal Neck: non-tender, normal alignment, supple, normal inspection, no JVD Rhythm: NSR Cardiovascular: normal peripheral pulses, normal rate, regular rhythm Respiratory/Chest: chest wall non-tender, lungs clear, normal breath sounds, no respiratory distress, no accessory muscle use Abdomen: normal bowel sounds, non tender, soft, no organomegaly Extremities: normal range of motion, non-tender, normal inspection Neurologic: sloop captain II-XII grossly normal, no motor/sensory deficits Intake and Output 12/27/18 12/28/18 19:00 07:00 Intake Total 720 ml Output Total 800 ml Balance -80 ml Intake Oral 720 ml Output Urine Total 800 ml # Voids 3 5 Grayson Henley MD Dec 28, 2018 10:13
--- NOTE | 2018-12-28 11:15 | NUR ---
NURSE NOTES: Pt came back from surgery and received report from MATT Aguilar. AO x 4. On nasal canula @ 2L/min. EBL of 50 ml. BP 178/73 CT 66 SpO2 100. No s/s of distress and no c/o of pain at the moment. Continous bladder irrigation going in and urinary catheter draining bright red urine with output of 850 cc. IV on the L FA 22 g intact and patent, with saline lock. Bed in the lowest, locked, and alarm on. Call light within reach. Will continue to monitor
--- NOTE | 2018-12-28 11:58 | Pulmonology Progress Note ---
Assessment/Plan Problems: (1) S/P TURP (2) ATN (acute tubular necrosis) (3) Gross hematuria (4) Hypertension (5) CAD (coronary artery disease) (6) Hematuria Assessment/Plan h/h stable no new complains f/u by iv hydration urology consult reviewed, cystoscopy done with Trup doing better Subjective ROS Limited/Unobtainable: No Constitutional: Reports: no symptoms HEENT: Repors: no symptoms Respiratory: Reports: no symptoms Allergies: Coded Allergies: No Known Allergies (Unverified , 12/20/18) Objective Last 24 Hour Vital Signs Date Time Temp Pulse Resp B/P (MAP) Pulse Ox O2 Delivery O2 Flow Rate FiO2 12/28/18 11:45 Room Air 12/28/18 11:15 97.8 66 20 178/73 (108) 100 12/28/18 11:00 97.6 62 18 180/69 100 Nasal Cannula 3 12/28/18 10:49 97.4 12/28/18 10:45 68 17 183/77 100 Nasal Cannula 3 12/28/18 10:30 65 15 188/80 100 Nasal Cannula 3 12/28/18 10:10 69 20 206/86 100 Nasal Cannula 3 12/28/18 10:07 67 199/81 12/28/18 10:00 199/81 12/28/18 10:00 66 14 195/75 100 Nasal Cannula 3 12/28/18 09:47 218/88 12/28/18 09:45 68 17 218/88 100 Nasal Cannula 3 12/28/18 09:30 72 18 202/87 100 Nasal Cannula 3 12/28/18 09:20 71 15 143/61 99 Nasal Cannula 3 12/28/18 09:18 68 22 98 12/28/18 09:14 97.5 67 20 163/74 100 Nasal Cannula 3 12/28/18 09:00 67 199/81 12/28/18 09:00 199/81 12/28/18 08:00 177/61 12/28/18 06:00 177/61 12/28/18 04:00 98.3 60 20 177/61 (99) 98 12/28/18 00:00 173/64 12/28/18 00:00 97.9 69 18 173/64 (100) 97 12/27/18 21:19 175/67 12/27/18 21:18 71 175/67 12/27/18 21:00 Room Air 12/27/18 20:00 97.4 71 18 175/67 (103) 98 12/27/18 17:14 180/73 12/27/18 16:00 98.4 82 18 162/68 (99) 97 12/27/18 14:21 180/73 12/27/18 13:40 68 157/71 (99) 12/27/18 13:00 180/73 12/27/18 12:55 98.6 64 18 180/73 (108) 98 Intake and Output 12/27/18 12/28/18 19:00 07:00 Intake Total 720 ml Output Total 800 ml Balance -80 ml Intake Oral 720 ml Output Urine Total 800 ml # Voids 3 5 General Appearance: WD/WN HEENT: normocephalic, anicteric Respiratory/Chest: chest wall non-tender, normal breath sounds Cardiovascular: normal rate, regularly irregular Abdomen: normal bowel sounds, no mass Extremities: no clubbing Skin: no rash Current Medications Medications (Trade) Dose Ordered Sig/Sallie Route PRN Reason Start Time Stop Time Status Last Admin Dose Admin Acetaminophen (Tylenol) 650 mg Q4H PRN ORAL fever 12/20/18 20:30 01/19/19 20:29 Amlodipine Besylate (Norvasc) 10 mg DAILY ORAL 12/21/18 09:00 01/20/19 08:59 12/28/18 10:07 Atorvastatin Calcium (Lipitor) 20 mg BEDTIME ORAL 12/21/18 21:00 01/20/19 20:59 12/27/18 21:19 Bisacodyl (Dulcolax) 5 mg DAILY ORAL 12/21/18 09:00 01/20/19 08:59 12/27/18 08:54 Carvedilol (Coreg) 25 mg EVERY 12 HOURS ORAL 12/27/18 09:00 01/20/19 08:59 12/27/18 21:18 Ceftriaxone Sodium 1 gm/ Dextrose 55 ml @ 110 mls/hr Q24H IVPB 12/22/18 14:00 12/29/18 13:59 12/27/18 14:21 Clonidine HCl (Catapres tab) 0.2 mg Q8H ORAL 12/28/18 10:00 01/21/19 09:59 Dextrose (Dextrose 50%) 25 ml Q30M PRN IV Hypoglycemia 12/20/18 20:30 01/19/19 20:29 Dextrose (Dextrose 50%) 50 ml Q30M PRN IV Hypoglycemia 12/20/18 20:30 01/19/19 20:29 Diphenhydramine HCl (Benadryl) 25 mg Q6H PRN ORAL Itching/Pruritis 12/20/18 20:30 01/19/19 20:29 Docusate Sodium (Colace) 100 mg THREE TIMES A DAY ORAL 12/21/18 18:00 01/20/19 17:59 12/27/18 17:14 Folic Acid (Folate) 3 mg DAILY ORAL 12/23/18 10:00 01/22/19 09:59 12/27/18 08:53 Heparin Sodium (Porcine) (Heparin 5000 units/ml) 5,000 units EVERY 12 HOURS SUBQ 12/21/18 09:00 01/19/19 21:46 12/22/18 21:33 Hydralazine HCl (Apresoline) 100 mg Q8HR ORAL 12/27/18 14:00 01/20/19 08:59 12/27/18 21:19 Hydromorphone HCl (Dilaudid) 2 mg Q6H PRN IVP Moderate Pain (Pain Scale 4-6) 12/21/18 18:00 12/28/18 17:59 12/25/18 08:11 Insulin Aspart (NovoLOG) BEFORE MEALS AND HS SUBQ 12/21/18 06:30 01/20/19 06:29 12/27/18 21:21 Isosorbide Mononitrate (Imdur) 60 mg DAILY ORAL 12/21/18 11:45 01/20/19 11:44 12/27/18 08:54 Minoxidil (Loniten) 2.5 mg Q4H PRN ORAL bp over 165 syst 12/25/18 12:00 01/24/19 11:59 12/27/18 13:00 Nitroglycerin (Ntg) 0.4 mg Q5M X 3 DOSES PRN SL Prn Chest Pain 12/20/18 20:30 01/19/19 20:29 Ondansetron HCl (Zofran) 4 mg Q1H PRN IVP Nausea & Vomiting 12/28/18 08:30 12/28/18 16:00 Ondansetron HCl (Zofran) 4 mg Q6H PRN IVP Nausea & Vomiting 12/20/18 20:30 01/19/19 20:29 Pantoprazole (Protonix) 40 mg EVERY 12 HOURS ORAL 12/21/18 21:00 01/20/19 20:59 12/27/18 21:18 Sodium Chloride 1,000 ml @ 30 mls/hr Q24H IVLG 12/26/18 12:00 01/19/19 11:59 12/25/18 21:13 Tamsulosin HCl (Flomax) 0.4 mg BID ORAL 12/21/18 11:45 01/20/19 11:44 12/27/18 17:14 Adam Moyer MD Dec 28, 2018 11:58
--- NOTE | 2018-12-28 12:04 | Nephrology Progress Note ---
Assessment/Plan Problem List: (1) Acute renal injury Assessment: Cr lowering (2) Gross hematuria (3) Bladder mass (4) Hypertension (5) Diabetes Assessment ANGELA - HTN OOC - Hematuria- Likely UTI Dehydration DM CAD Plan had cysto 12/28 Uro note: Tolerated bladder tumor resection well. Unfortunately greater part of the bladder is involved and essentially replaced all normal bladder with tumor. I can not resect all the tumors. Patient needs a radical cystectomy (removal of bladder) or radiation/chemotherapy at higher level of care. 1. recommend transfer to higher level of care for cystectomy 2. continue richardson, keep irrigation to maintain light pink urine. Rocephin Slow hydrate 2D echo Keep BP and BS in check per orders due cysto as clear by cardio Multiple masslike lesions within the bladder. Further evaluation with cystoscopy is recommended to evaluate for possible neoplasm. Multiple parapelvic renal cysts Subjective ROS Limited/Unobtainable: No Interval Events/Complaints seen post cysto Objective Objective Last 24 Hour Vital Signs Date Time Temp Pulse Resp B/P (MAP) Pulse Ox O2 Delivery O2 Flow Rate FiO2 12/28/18 11:45 Room Air 12/28/18 11:45 64 179/74 (109) 100 12/28/18 11:15 97.8 66 20 178/73 (108) 100 12/28/18 11:00 97.6 62 18 180/69 100 Nasal Cannula 3 12/28/18 10:49 97.4 12/28/18 10:45 68 17 183/77 100 Nasal Cannula 3 12/28/18 10:30 65 15 188/80 100 Nasal Cannula 3 12/28/18 10:10 69 20 206/86 100 Nasal Cannula 3 12/28/18 10:07 67 199/81 12/28/18 10:00 199/81 12/28/18 10:00 66 14 195/75 100 Nasal Cannula 3 12/28/18 09:47 218/88 12/28/18 09:45 68 17 218/88 100 Nasal Cannula 3 12/28/18 09:30 72 18 202/87 100 Nasal Cannula 3 12/28/18 09:20 71 15 143/61 99 Nasal Cannula 3 12/28/18 09:18 68 22 98 12/28/18 09:14 97.5 67 20 163/74 100 Nasal Cannula 3 8/15/19 09:00 67 199/81 12/28/18 09:00 199/81 12/28/18 08:00 177/61 12/28/18 06:00 177/61 12/28/18 04:00 98.3 60 20 177/61 (99) 98 12/28/18 00:00 173/64 12/28/18 00:00 97.9 69 18 173/64 (100) 97 12/27/18 21:19 175/67 12/27/18 21:18 71 175/67 12/27/18 21:00 Room Air 12/27/18 20:00 97.4 71 18 175/67 (103) 98 12/27/18 17:14 180/73 12/27/18 16:00 98.4 82 18 162/68 (99) 97 12/27/18 14:21 180/73 12/27/18 13:40 68 157/71 (99) 12/27/18 13:00 180/73 12/27/18 12:55 98.6 64 18 180/73 (108) 98 Intake and Output 12/27/18 12/28/18 19:00 07:00 Intake Total 720 ml Output Total 800 ml Balance -80 ml Intake Oral 720 ml Output Urine Total 800 ml # Voids 3 5 Height (Feet): 6 Height (Inches): 0.00 Weight (Pounds): 178 General Appearance: no apparent distress Cardiovascular: regular rhythm Respiratory/Chest: lungs clear Abdomen: distended Genitourinary/Rectal: other - has 3 way richardson irrigation Objective no change Russell Sofia MD Dec 28, 2018 12:04
--- NOTE | 2018-12-28 15:08 | Hematology/Onc Progress Note ---
Assessment/Plan Assessment/Plan Assessment and Recs: # Bladder cancer requires resection v chemo/xrt -- presented with multi masses CT shows Scattered eccentric mural thickening/masses in the urinary bladder wall , correlating with findings on recent ultrasound. No significant perivesical stranding. Recommend further evaluation with cystoscopy. --> urology consulted, appreciate input --> Uro note: Tolerated bladder tumor resection well. Unfortunately greater part of the bladder is involved and essentially replaced all normal bladder with tumor. I can not resect all the tumors. Patient needs a radical cystectomy (removal of bladder) or radiation/chemotherapy at higher level of care. --> recommend transfer to higher level of care for cystectomy --> dw child support case officer and if doesn't get transfered, set up for chemo/radiation as outpatient --> will review pathology report once available # Thrombocytopenia - potential causes multifactorial, evaluate liver and viral etiologies to begin, also could be related to underlying medications patient has received. --> Hep panel and HIV -> NEGATIVE --> US abd showed bladder masses-->ct reviewed as well --> Peripheral smear ordered to evaluate for blasts /schistocytes --> none noted --> abx and other meds have been reviewed --> ok for ppx if plt >50k w/ either heparin or lovenox --> trend plt 103-->92k-->90k->94k # Anemia of iron deficiency likely due to hematuria --> iv iron started x 5 days low ferritin --> likely due to hematuria --> have started on ivf and consider uro prn cysto # Acute renal injury --> cr has improved 2.3-->1.8-->2.3->1.6-->1.4-->1.4 --> per renal recs --> volume expansion # HTN --> cards consulted # Hematuria # UTI (urinary tract infection) # Dehydration The timing of this note does not necessarily reflect the time of the patient was seen. GREATLY APPRECIATE CONSULTATION. Subjective HEENT: Denies: no symptoms, eye pain, blurred vision, tearing, double vision, ear pain, ear discharge, nose pain, nose congestion, throat pain, throat swelling, mouth pain, mouth swelling, other Respiratory: Denies: no symptoms, cough, shortness of breath, SOB with excertion, SOB at rest, sputum, wheezing, other Gastrointestinal/Abdominal: Denies: no symptoms, abdomen distended, abdominal pain, black stools, tarry stools, blood in stool, constipated, diarrhea, difficulty swallowing, nausea, poor appetite, poor fluid intake, rectal bleeding , vomiting, other Genitourinary: Denies: no symptoms, burning, discharge, frequency, flank pain, hematuria, incontinence, pain, urgency, other Neurologic/Psychiatric: Denies: no symptoms, anxiety, depressed, emotional problems, headache, numbness, paresthesia, pre-existing deficit, seizure, tingling, tremors, weakness, other Endocrine: Denies: no symptoms, excessive sweating, flushing, intolerance to cold, intolerance to heat, increased hunger, increased thirst, increased urine, unexplained weight gain, unexplained weight loss, other Hematologic/Lymphatic: Denies: no symptoms, anemia, easy bleeding, easy bruising, adenopathy, other Allergies: Coded Allergies: No Known Allergies (Unverified , 12/20/18) Subjective 12/22: no events noted, no bleeding, ct ordered for the us findings with multiple masses in bladder, cysto recommended 12/24: no events, no bleeding, no night sweats noted, no chills reported 12/25: no fevers, no chills, no major changes, cysto for /12/26: awaiting further uro recs, feeling better, no f/c, prbc prn 12/27: no events, no bleeding, no night sweats, cysto pending 12/28: tolerated bladder tumor resection well, hgb remains >10 Objective Objective Current Medications Medications (Trade) Dose Ordered Sig/Sallie Route PRN Reason Start Time Stop Time Status Last Admin Dose Admin Acetaminophen (Tylenol) 650 mg Q4H PRN ORAL fever 12/20/18 20:30 01/19/19 20:29 Amlodipine Besylate (Norvasc) 10 mg DAILY ORAL 12/21/18 09:00 01/20/19 08:59 12/28/18 10:07 Atorvastatin Calcium (Lipitor) 20 mg BEDTIME ORAL 12/21/18 21:00 01/20/19 20:59 12/27/18 21:19 Bisacodyl (Dulcolax) 5 mg DAILY ORAL 12/21/18 09:00 01/20/19 08:59 12/27/18 08:54 Carvedilol (Coreg) 25 mg EVERY 12 HOURS ORAL 12/27/18 09:00 01/20/19 08:59 12/27/18 21:18 Ceftriaxone Sodium 1 gm/ Dextrose 55 ml @ 110 mls/hr Q24H IVPB 12/22/18 14:00 12/29/18 13:59 12/27/18 14:21 Clonidine HCl (Catapres tab) 0.2 mg Q8H ORAL 12/28/18 10:00 01/21/19 09:59 Dextrose (Dextrose 50%) 25 ml Q30M PRN IV Hypoglycemia 12/20/18 20:30 01/19/19 20:29 Dextrose (Dextrose 50%) 50 ml Q30M PRN IV Hypoglycemia 12/20/18 20:30 01/19/19 20:29 Diphenhydramine HCl (Benadryl) 25 mg Q6H PRN ORAL Itching/Pruritis 12/20/18 20:30 01/19/19 20:29 Docusate Sodium (Colace) 100 mg THREE TIMES A DAY ORAL 12/21/18 18:00 01/20/19 17:59 12/28/18 14:25 Folic Acid (Folate) 3 mg DAILY ORAL 12/23/18 10:00 01/22/19 09:59 12/27/18 08:53 Heparin Sodium (Porcine) (Heparin 5000 units/ml) 5,000 units EVERY 12 HOURS SUBQ 12/21/18 09:00 01/19/19 21:46 12/22/18 21:33 Hydralazine HCl (Apresoline) 100 mg Q8HR ORAL 12/27/18 14:00 01/20/19 08:59 12/28/18 14:25 Hydromorphone HCl (Dilaudid) 2 mg Q6H PRN IVP Moderate Pain (Pain Scale 4-6) 12/21/18 18:00 12/28/18 17:59 12/25/18 08:11 Insulin Aspart (NovoLOG) BEFORE MEALS AND HS SUBQ 12/21/18 06:30 01/20/19 06:29 12/28/18 12:24 Isosorbide Mononitrate (Imdur) 60 mg DAILY ORAL 12/21/18 11:45 01/20/19 11:44 12/27/18 08:54 Minoxidil (Loniten) 2.5 mg Q4H PRN ORAL bp over 165 syst 12/25/18 12:00 01/24/19 11:59 12/27/18 13:00 Nitroglycerin (Ntg) 0.4 mg Q5M X 3 DOSES PRN SL Prn Chest Pain 12/20/18 20:30 01/19/19 20:29 Ondansetron HCl (Zofran) 4 mg Q1H PRN IVP Nausea & Vomiting 12/28/18 08:30 12/28/18 16:00 Ondansetron HCl (Zofran) 4 mg Q6H PRN IVP Nausea & Vomiting 12/20/18 20:30 01/19/19 20:29 Pantoprazole (Protonix) 40 mg EVERY 12 HOURS ORAL 12/21/18 21:00 01/20/19 20:59 12/27/18 21:18 Sodium Chloride 1,000 ml @ 30 mls/hr Q24H IVLG 12/26/18 12:00 01/19/19 11:59 12/28/18 12:25 Tamsulosin HCl (Flomax) 0.4 mg BID ORAL 12/21/18 11:45 01/20/19 11:44 12/27/18 17:14 Last 24 Hour Vital Signs Date Time Temp Pulse Resp B/P (MAP) Pulse Ox O2 Delivery O2 Flow Rate FiO2 12/28/18 14:25 179/74 12/28/18 12:45 96.6 20 177/64 (101) 98 12/28/18 11:45 Room Air 12/28/18 11:45 64 179/74 (109) 100 12/28/18 11:15 97.8 66 20 178/73 (108) 100 12/28/18 11:00 97.6 62 18 180/69 100 Nasal Cannula 3 12/28/18 10:49 97.4 12/28/18 10:45 68 17 183/77 100 Nasal Cannula 3 12/28/18 10:30 65 15 188/80 100 Nasal Cannula 3 12/28/18 10:10 69 20 206/86 100 Nasal Cannula 3 12/28/18 10:07 67 199/81 12/28/18 10:00 199/81 12/28/18 10:00 66 14 195/75 100 Nasal Cannula 3 12/28/18 09:47 218/88 12/28/18 09:45 68 17 218/88 100 Nasal Cannula 3 12/28/18 09:30 72 18 202/87 100 Nasal Cannula 3 12/28/18 09:20 71 15 143/61 99 Nasal Cannula 3 12/28/18 09:18 68 22 98 12/28/18 09:14 97.5 67 20 163/74 100 Nasal Cannula 3 12/28/18 09:00 67 199/81 12/28/18 09:00 199/81 12/28/18 08:00 177/61 12/28/18 06:00 177/61 12/28/18 04:00 98.3 60 20 177/61 (99) 98 12/28/18 00:00 173/64 12/28/18 00:00 97.9 69 18 173/64 (100) 97 12/27/18 21:19 175/67 12/27/18 21:18 71 175/67 12/27/18 21:00 Room Air 12/27/18 20:00 97.4 71 18 175/67 (103) 98 12/27/18 17:14 180/73 12/27/18 16:00 98.4 82 18 162/68 (99) 97 12/27/18 14:21 180/73 12/27/18 13:40 68 157/71 (99) 12/27/18 13:00 180/73 12/27/18 12:55 98.6 64 18 180/73 (108) 98 12/27/18 10:03 80 146/86 12/27/18 09:00 Room Air 12/27/18 08:54 146/86 12/27/18 08:54 80 146/86 12/27/18 08:53 146/86 12/27/18 08:53 80 146/86 12/27/18 08:00 97.8 80 19 146/84 (104) 99 12/27/18 05:15 156/82 12/27/18 04:00 98.4 72 19 156/82 (106) 95 12/27/18 00:00 110/63 12/27/18 00:00 98.1 68 20 110/63 (79) 96 12/26/18 21:16 168/65 8/13/19 21:00 Room Air 12/26/18 20:53 66 168/65 12/26/18 20:00 98.3 66 18 168/65 (99) 96 12/26/18 16:00 98.7 65 18 169/76 (107) 96 12/26/18 15:44 157/71 12/26/18 15:44 157/71 Intake and Output 12/27/18 12/28/18 19:00 07:00 Intake Total 720 ml Output Total 800 ml Balance -80 ml Intake Oral 720 ml Output Urine Total 800 ml # Voids 3 5 Labs Test 12/26/18 05:35 12/27/18 05:00 White Blood Count 5.3 K/UL (4.8-10.8) 5.6 K/UL (4.8-10.8) Red Blood Count 3.20 M/UL (4.70-6.10) 3.39 M/UL (4.70-6.10) Hemoglobin 10.1 G/DL (14.2-18.0) 10.6 G/DL (14.2-18.0) Hematocrit 31.4 % (42.0-52.0) 33.1 % (42.0-52.0) Mean Corpuscular Volume 98 FL (80-99) 98 FL (80-99) Mean Corpuscular Hemoglobin 31.6 PG (27.0-31.0) 31.3 PG (27.0-31.0) Mean Corpuscular Hemoglobin Concent 32.1 G/DL (32.0-36.0) 32.0 G/DL (32.0-36.0) Red Cell Distribution Width 13.0 % (11.6-14.8) 12.3 % (11.6-14.8) Platelet Count 90 K/UL (150-450) 94 K/UL (150-450) Mean Platelet Volume 9.2 FL (6.5-10.1) 9.0 FL (6.5-10.1) Neutrophils (%) (Auto) % (45.0-75.0) % (45.0-75.0) Lymphocytes (%) (Auto) % (20.0-45.0) % (20.0-45.0) Monocytes (%) (Auto) % (1.0-10.0) % (1.0-10.0) Eosinophils (%) (Auto) % (0.0-3.0) % (0.0-3.0) Basophils (%) (Auto) % (0.0-2.0) % (0.0-2.0) Differential Total Cells Counted 100 Neutrophils % (Manual) 64 % (45-75) Lymphocytes % (Manual) 26 % (20-45) Monocytes % (Manual) 9 % (1-10) Eosinophils % (Manual) 1 % (0-3) Basophils % (Manual) 0 % (0-2) Band Neutrophils 0 % (0-8) Platelet Estimate Decreased Platelet Morphology Normal Hypochromasia 1+ Prothrombin Time 10.4 SEC (9.30-11.50) 10.2 SEC (9.30-11.50) Prothromb Time International Ratio 1.0 (0.9-1.1) 1.0 (0.9-1.1) Activated Partial Thromboplast Time 30 SEC (23-33) 30 SEC (23-33) Sodium Level 143 MMOL/L (136-145) 142 MMOL/L (136-145) Potassium Level 4.0 MMOL/L (3.5-5.1) 3.9 MMOL/L (3.5-5.1) Chloride Level 109 MMOL/L (98-107) 109 MMOL/L (98-107) Carbon Dioxide Level 28 MMOL/L (21-32) 27 MMOL/L (21-32) Anion Gap 6 mmol/L (5-15) 6 mmol/L (5-15) Blood Urea Nitrogen 28 mg/dL (7-18) 28 mg/dL (7-18) Creatinine 1.4 MG/DL (0.55-1.30) 1.4 MG/DL (0.55-1.30) Estimat Glomerular Filtration Rate mL/min (>60) mL/min (>60) Glucose Level 167 MG/DL (74-106) 167 MG/DL (74-106) Calcium Level 8.6 MG/DL (8.5-10.1) 8.6 MG/DL (8.5-10.1) Phosphorus Level 2.6 MG/DL (2.5-4.9) 2.1 MG/DL (2.5-4.9) Magnesium Level 1.8 MG/DL (1.8-2.4) 1.8 MG/DL (1.8-2.4) Total Bilirubin 0.3 MG/DL (0.2-1.0) 0.4 MG/DL (0.2-1.0) Direct Bilirubin < 0.1 MG/DL (0.0-0.3) Aspartate Amino Transf (AST/SGOT) 29 U/L (15-37) 29 U/L (15-37) Alanine Aminotransferase (ALT/SGPT) 26 U/L (12-78) 29 U/L (12-78) Alkaline Phosphatase 47 U/L (46-116) 48 U/L (46-116) Total Protein 6.1 G/DL (6.4-8.2) 6.3 G/DL (6.4-8.2) Albumin 2.7 G/DL (3.4-5.0) 2.8 G/DL (3.4-5.0) Globulin 3.5 g/dL Albumin/Globulin Ratio 0.8 (1.0-2.7) Height (Feet): 6 Height (Inches): 0.00 Weight (Pounds): 178 Objective Physical Exam: Vitals: reviewed General Appearance: NAD HEENT: normocephalic, atraumatic Neck: non-tender, normal alignment Respiratory/Chest: normal breath sounds bilaterally Cardiovascular/Chest: normal peripheral pulses, normal rate Abdomen: normal bowel sounds, soft, nontender Extremities: normal range of motion + clots noted in urinal Skin: no rash Marcelo Mcallister MD Dec 28, 2018 15:08
[2018-12-28] MEDS: cefTRIAXone 1 GM in D5W 55 ML IVPB SCH (15:23)
--- NOTE | 2018-12-28 16:45 | Operative Note - Dictated ---
DATE OF OPERATION: 12/28/2018 PRIMARY SURGEON: Cristian Lara M.D. PREOPERATIVE DIAGNOSES: 1. Bladder tumor. 2. Hematuria. POSTOPERATIVE DIAGNOSES: 1. Bladder tumor. 2. Hematuria. PROCEDURE PERFORMED: Cystoscopy with transurethral resection of bladder tumor, large. ANESTHESIA: General. EBL: Minimal. COMPLICATIONS: None. DRAINS: A 22-Cypriot 3-way Oconnor catheter. SPECIMEN: Bladder tumor fragments. PREOPERATIVE HISTORY: The patient is a pleasant 83-year-old gentleman, fdc dependent, who presents with hematuria. Workup with imaging shows multiple bladder tumors throughout the bladder. The patient was assessed and counseled that we need to resect these bladder tumors to control bleeding. The patient is unaware of any further or prior procedures. The patient was made aware of the risks and benefits of the procedure. Risks including, but not limited to, bleeding, infection, bladder injury, ureteral injury, urethral injury, recurrence of tumors, and need for further surgery. The patient understood the risks, signed the consent and taken to the operating room. OPERATIVE PROCEDURE: The patient was brought to the operating room where general anesthesia was achieved easily. He was placed in the dorsal lithotomy position and all pressure points padded. He was prepped and draped in a sterile fashion. He received preop antibiotics. A 27-Cypriot continuous flow resectoscope sheath was placed. The anterior urethra was normal. 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 Bladder was entered and there was at least five larger bladder tumors, one medial to the right ureteral orifice, another one cranial to the left ureteral orifice, and three more large ones along the posterior bladder wall. The patient had several innumerable papillary lesions throughout the rest of his bladder. Basically, his entire bladder had been replaced with bladder tumor. With a resecting loop, I was able to resect the two trigonal bladder tumors as completely as possible with the posterior bladder wall tumors were vaporized to achieve hemostasis, as innumerable polypoid small tumors throughout the rest of the bladder wall were left essentially alone, as the plan was to just achieve a good tissue diagnosis and have the patient proceed with either palliative care or completion cystectomy at a higher level of care. After resection was done, we ensured to meticulous vaporization and coagulation with a larger posterior bladder wall tumors. All the tumor tissue was not removed. Tumor tissue that was left behind was not actively bleeding. Prostatic urethral papillary fronds were also coagulated to achieve good hemostasis. It was not to be bothered by the catheter that inevitably had to be placed. Right and left ureteral orifices were intact and open throughout the entire procedure. All the resected tissue was irrigated out and sent for specimen. Once good hemostasis was achieved, the scope was removed. A 22-Cypriot 3-way Oconnor catheter with 30 mL of water was placed and the efflux and irrigation was quite clear, slightly pink. The patient was then woken up and taken to recovery room in stable fashion. I was present for the entire case. All needle and instrument counts were correct at the end of the case. PLAN: 1. The patient can be observed for another 24 hours to ensure improvement of hematuria. 2. Recommend going home with Oconnor catheter. 3. I would strongly recommend transition or a transfer to a higher level of care for completion cystectomy. If the patient is not a candidate for this, palliative radiation or chemotherapy can potentially be an option as well. Cristian Lara DR: DG JOB#: [id number] CC:
--- NOTE | 2018-12-28 19:58 | NUR ---
NURSE NOTES:patient received VISHAL R.N. Patient A/A/OX4. Patient on 02 2l via n/c in place HOB Elevated for comfort IS at bedside patient tolerating well. Patient skin intact. Patient denies any pain at this time . no s/s of distress noted . right hand G#22 NS at 30 cc/ hr infusing well richardson catheter fr. [address] continuous bladder irrigation going on draining bright red urine output 1,500. . no blood clots noted at this time . safety / fall precautions . call light within reach . bed in low position at all times Bed alarm on . will continue to monitor .
--- NOTE | 2018-12-28 19:58 | NUR ---
HAND-OFF: Report given to MATT Weiss.
[2018-12-28] MEDS: Atorvastatin 20mg tab ORAL SCH (20:58)
--- NOTE | 2018-12-28 22:35 | General Progress Note ---
Assessment/Plan Problem List: (1) UTI (urinary tract infection) ICD Codes: N39.0 - Urinary tract infection, site not specified SNOMED: 53856618, 9816888 (2) CAD (coronary artery disease) ICD Codes: I25.10 - Atherosclerotic heart disease of [place] coronary artery without angina pectoris SNOMED: 92123293 (3) Hematuria ICD Codes: R31.9 - Hematuria, unspecified SNOMED: 59193190, 5351301 (4) Dehydration ICD Codes: E86.0 - Dehydration SNOMED: 50697511, 6908060 (5) ATN (acute tubular necrosis) ICD Codes: N17.0 - Acute kidney failure with tubular necrosis SNOMED: 11627966 (6) Diabetes ICD Codes: E11.9 - Type 2 diabetes mellitus without complications SNOMED: 83818249 (7) Anemia ICD Codes: D64.9 - Anemia, unspecified SNOMED: 731294573 (8) CHF (congestive heart failure) ICD Codes: I50.9 - Heart failure, unspecified SNOMED: 28419909 (9) Weak ICD Codes: R53.1 - Weakness SNOMED: 92374405 (10) HTN (hypertension) ICD Codes: I10 - Essential (primary) hypertension SNOMED: 48679418 (11) ARF (acute renal failure) ICD Codes: N17.9 - Acute kidney failure, unspecified SNOMED: 45073894 (12) Bladder mass ICD Codes: N32.89 - Other specified disorders of bladder SNOMED: 394658831 (13) Acute renal injury ICD Codes: N17.9 - Acute kidney failure, unspecified SNOMED: 59923134, 6482016 Status: stable, progressing Status Narrative chf hematurea reviewed chart and labs htn weak afebrile azotemia no bleeding Subjective ROS Limited/Unobtainable: Yes Allergies: Coded Allergies: No Known Allergies (Unverified , 12/20/18) Objective Last 24 Hour Vital Signs Date Time Temp Pulse Resp B/P (MAP) Pulse Ox O2 Delivery O2 Flow Rate FiO2 12/28/18 22:00 98.0 73 18 150/65 (93) 99 12/28/18 21:42 150/65 12/28/18 20:57 72 162/74 12/28/18 20:00 98.3 72 17 162/74 (103) 99 12/28/18 18:00 165/65 12/28/18 16:00 97.2 70 20 165/65 (98) 97 12/28/18 14:25 179/74 12/28/18 13:45 72 168/63 (98) 98 12/28/18 12:45 96.6 20 177/64 (101) 98 12/28/18 11:45 Room Air 12/28/18 11:45 64 179/74 (109) 100 12/28/18 11:15 97.8 66 20 178/73 (108) 100 12/28/18 11:00 97.6 62 18 180/69 100 Nasal Cannula 3 12/28/18 10:49 97.4 12/28/18 10:45 68 17 183/77 100 Nasal Cannula 3 12/28/18 10:30 65 15 188/80 100 Nasal Cannula 3 12/28/18 10:10 69 20 206/86 100 Nasal Cannula 3 12/28/18 10:07 67 199/81 12/28/18 10:00 199/81 12/28/18 10:00 66 14 195/75 100 Nasal Cannula 3 12/28/18 09:47 218/88 12/28/18 09:45 68 17 218/88 100 Nasal Cannula 3 12/28/18 09:30 72 18 202/87 100 Nasal Cannula 3 12/28/18 09:20 71 15 143/61 99 Nasal Cannula 3 12/28/18 09:18 68 22 98 12/28/18 09:14 97.5 67 20 163/74 100 Nasal Cannula 3 12/28/18 09:00 67 199/81 12/28/18 09:00 199/81 12/28/18 08:00 177/61 12/28/18 06:00 177/61 12/28/18 04:00 98.3 60 20 177/61 (99) 98 12/28/18 00:00 173/64 12/28/18 00:00 97.9 69 18 173/64 (100) 97 Intake and Output 12/27/18 12/28/18 19:00 07:00 Intake Total 720 ml Output Total 800 ml Balance -80 ml Intake Oral 720 ml Output Urine Total 800 ml # Voids 3 5 Height (Feet): 6 Height (Inches): 0.00 Weight (Pounds): 178 Cardiovascular: regular rhythm Respiratory/Chest: lungs clear Abdomen: soft Subhash Corona MD Dec 28, 2018 22:35
[2018-12-29] VITALS (7 sets, daily range): BP systolic 122–150; BP diastolic 55–82
[2018-12-29] MEDS: cloNIDine 0.2mg Tab ORAL SCH ×3 (01:37→17:32)
[2018-12-29] MEDS: HydrALAZINE 50mg tab ORAL SCH ×3 (05:49→22:08)
[2018-12-29] MEDS: NovoLOG Insulin Flexpen SUBQ SCH ×4 (06:29→22:10)
[2018-12-29 06:57] LABS: BASOPHILS % (AUTO) 0.9 % (0.0-2.0); EOSINOPHILS % (AUTO) 0.4 % (0.0-3.0); HEMATOCRIT 33.1 % (42.0-52.0); HEMOGLOBIN 10.5 G/DL (14.2-18.0); LYMPHOCYTES % (AUTO) 11.9 % (20.0-45.0); MEAN CORPUSCULAR VOLUME 101 FL (80-99); MONOCYTES % (AUTO) 12.1 % (1.0-10.0); NEUTROPHILS % (AUTO) 74.7 % (45.0-75.0); PLATELET COUNT 102 K/UL (150-450); RED BLOOD COUNT 3.29 M/UL (4.70-6.10); RED CELL DISTRIBUTION WIDTH 13.9 % (11.6-14.8); WHITE BLOOD COUNT 8.5 K/UL (4.8-10.8)
[2018-12-29 07:07] LABS: ALANINE AMINOTRANSFERASE 25 U/L (12-78); ALBUMIN 2.7 G/DL (3.4-5.0); ALBUMIN/GLOBULIN RATIO 0.8 (1.0-2.7); ALKALINE PHOSPHATASE 52 U/L (46-116); ANION GAP 6 mmol/L (5-15); ASPARTATE AMINO TRANSFERASE 21 U/L (15-37); BILIRUBIN,TOTAL 0.3 MG/DL (0.2-1.0); BLOOD UREA NITROGEN 34 mg/dL (7-18); CALCIUM 8.4 MG/DL (8.5-10.1); CARBON DIOXIDE 26 MMOL/L (21-32); CHLORIDE 111 MMOL/L (98-107); CREATININE 1.8 MG/DL (0.55-1.30); PHOSPHORUS 3.5 MG/DL (2.5-4.9); POTASSIUM 4.6 MMOL/L (3.5-5.1); SODIUM 143 MMOL/L (136-145)
--- NOTE | 2018-12-29 07:55 | NUR ---
NURSE NOTES: Report received from Isela BARONE, rounds made. Patient resting in semi-fowlers position in bed. Alert, oriented x 2-3, calm. On O2 3LNC. CBI/FC in place, red, clear output, no clots noted. Denies pain at this time. IVF (NS at 30 ml/hr) infusing to right hand, site asymptomatic. Bilateral SCDs on. Call light in reach, bed in lowest position, will continue to monitor.
--- NOTE | 2018-12-29 08:00 | NUR ---
HAND-OFF: Report given to Ghazala Clemons
--- NOTE | 2018-12-29 08:17 | Pulmonology Progress Note ---
Assessment/Plan Assessment/Plan ASSESSMENT Bladder cancer, status post resection Hematuria, secondary to bladder cancer Acute kidney injury Dehydration Hypertensive urgency Diabetes mellitus History of CVA Hyperlipidemia CAD Iron deficiency anemia PLAN OF CARE MS floor status post cystoscopy, resection of bladder tumor urologist was unable to remove all masses and recommended transfer to higher level of care FOR removal of urinary bladder Oconnor catheter with CBI, still hematuria monitor HH chest x-ray negative O2 HHN as needed Echo with pEF 65%. Aortic stenosis monitor renal parameters and lytes, correct electrolytes as needed creatinine trending up CT of the abdomen and pelvis confirmed lesions seen in the bladder ultrasound , likely neoplasm; gallstone pain management supportive care awaiting transfer to higher level of care case discussed and evaluated by supervising physician Subjective Allergies: Coded Allergies: No Known Allergies (Unverified , 12/20/18) Subjective creat up to 1.8 today HH remains stable no signs of resp distress, afebrile Objective Last 24 Hour Vital Signs Date Time Temp Pulse Resp B/P (MAP) Pulse Ox O2 Delivery O2 Flow Rate FiO2 12/29/18 05:49 132/60 12/29/18 01:37 150/59 12/29/18 00:00 98.6 65 18 138/57 (84) 100 12/28/18 22:00 98.0 73 18 150/65 (93) 99 12/28/18 21:42 150/65 12/28/18 21:00 Room Air 12/28/18 20:57 72 162/74 12/28/18 20:00 98.3 72 17 162/74 (103) 99 12/28/18 18:00 165/65 12/28/18 16:00 97.2 70 20 165/65 (98) 97 12/28/18 14:25 179/74 12/28/18 13:45 72 168/63 (98) 98 12/28/18 12:45 96.6 20 177/64 (101) 98 12/28/18 11:45 Room Air 12/28/18 11:45 64 179/74 (109) 100 12/28/18 11:15 97.8 66 20 178/73 (108) 100 12/28/18 11:00 97.6 62 18 180/69 100 Nasal Cannula 3 12/28/18 10:49 97.4 12/28/18 10:45 68 17 183/77 100 Nasal Cannula 3 12/28/18 10:30 65 15 188/80 100 Nasal Cannula 3 12/28/18 10:10 69 20 206/86 100 Nasal Cannula 3 12/28/18 10:07 67 199/81 12/28/18 10:00 199/81 12/28/18 10:00 66 14 195/75 100 Nasal Cannula 3 12/28/18 09:47 218/88 12/28/18 09:45 68 17 218/88 100 Nasal Cannula 3 12/28/18 09:30 72 18 202/87 100 Nasal Cannula 3 12/28/18 09:20 71 15 143/61 99 Nasal Cannula 3 12/28/18 09:18 68 22 98 12/28/18 09:14 97.5 67 20 163/74 100 Nasal Cannula 3 12/28/18 09:00 67 199/81 12/28/18 09:00 19981 Intake and Output 12/28/18 12/29/18 18:59 06:59 Intake Total 680 ml 900 ml Output Total 2050 ml Balance -1370 ml 900 ml Intake Oral 240 ml 600 ml IV Total 440 ml 300 ml Output Urine Total 2000 ml Estimated Blood Loss 50 ml General Appearance: no acute distress HEENT: normocephalic, atraumatic, anicteric, mucous membranes moist Respiratory/Chest: lungs clear, no respiratory distress, no accessory muscle use Cardiovascular: normal rate Abdomen: normal bowel sounds, soft, non tender Genitourinary: other - F/c with CBI, hematuria Neurologic/Psychiatric: alert Laboratory Tests 12/29/18 05:30: White Blood Count 8.5, Red Blood Count 3.29L, Hemoglobin 10.5L, Hematocrit 33.1L , Mean Corpuscular Volume 101H, Mean Corpuscular Hemoglobin 32.1H, Mean Corpuscular Hemoglobin Concent 31.8L, Red Cell Distribution Width 13.9, Platelet Count 102L, Mean Platelet Volume 10.0, Neutrophils (%) (Auto) 74.7, Lymphocytes (%) (Auto) 11.9L, Monocytes (%) (Auto) 12.1H, Eosinophils (%) (Auto ) 0.4, Basophils (%) (Auto) 0.9, Sodium Level 143, Potassium Level 4.6, Chloride Level 111H, Carbon Dioxide Level 26, Anion Gap 6, Blood Urea Nitrogen 34H, Creatinine 1.8H, Estimat Glomerular Filtration Rate , Glucose Level 190H, Uric Acid 8.3H, Calcium Level 8.4L, Phosphorus Level 3.5, Magnesium Level 2.0, Total Bilirubin 0.3, Aspartate Amino Transf (AST/SGOT) 21, Alanine Aminotransferase (ALT/SGPT) 25, Alkaline Phosphatase 52, Total Protein 6.0L, Albumin 2.7L, Globulin 3.3, Albumin/Globulin Ratio 0.8L Current Medications Medications (Trade) Dose Ordered Sig/Sallie Route PRN Reason Start Time Stop Time Status Last Admin Dose Admin Acetaminophen (Tylenol) 650 mg Q4H PRN ORAL fever 12/20/18 20:30 01/19/19 20:29 Amlodipine Besylate (Norvasc) 10 mg DAILY ORAL 12/21/18 09:00 01/20/19 08:59 12/28/18 10:07 Atorvastatin Calcium (Lipitor) 20 mg BEDTIME ORAL 12/21/18 21:00 01/20/19 20:59 12/28/18 20:58 Bisacodyl (Dulcolax) 5 mg DAILY ORAL 12/21/18 09:00 01/20/19 08:59 12/27/18 08:54 Carvedilol (Coreg) 25 mg EVERY 12 HOURS ORAL 12/27/18 09:00 01/20/19 08:59 12/28/18 20:57 Ceftriaxone Sodium 1 gm/ Dextrose 55 ml @ 110 mls/hr Q24H IVPB 12/22/18 14:00 12/29/18 13:59 12/28/18 15:23 Clonidine HCl (Catapres tab) 0.2 mg Q8H ORAL 12/28/18 10:00 01/21/19 09:59 12/29/18 01:37 Dextrose (Dextrose 50%) 25 ml Q30M PRN IV Hypoglycemia 12/20/18 20:30 01/19/19 20:29 Dextrose (Dextrose 50%) 50 ml Q30M PRN IV Hypoglycemia 12/20/18 20:30 01/19/19 20:29 Diphenhydramine HCl (Benadryl) 25 mg Q6H PRN ORAL Itching/Pruritis 12/20/18 20:30 01/19/19 20:29 Docusate Sodium (Colace) 100 mg THREE TIMES A DAY ORAL 12/21/18 18:00 01/20/19 17:59 12/28/18 18:00 Folic Acid (Folate) 3 mg DAILY ORAL 12/23/18 10:00 01/22/19 09:59 12/27/18 08:53 Heparin Sodium (Porcine) (Heparin 5000 units/ml) 5,000 units EVERY 12 HOURS SUBQ 12/21/18 09:00 01/19/19 21:46 12/22/18 21:33 Hydralazine HCl (Apresoline) 100 mg Q8HR ORAL 12/27/18 14:00 01/20/19 08:59 12/29/18 05:49 Insulin Aspart (NovoLOG) BEFORE MEALS AND HS SUBQ 12/21/18 06:30 01/20/19 06:29 12/29/18 06:29 Isosorbide Mononitrate (Imdur) 60 mg DAILY ORAL 12/21/18 11:45 01/20/19 11:44 12/27/18 08:54 Minoxidil (Loniten) 2.5 mg Q4H PRN ORAL bp over 165 syst 12/25/18 12:00 01/24/19 11:59 12/27/18 13:00 Nitroglycerin (Ntg) 0.4 mg Q5M X 3 DOSES PRN SL Prn Chest Pain 12/20/18 20:30 01/19/19 20:29 Ondansetron HCl (Zofran) 4 mg Q6H PRN IVP Nausea & Vomiting 12/20/18 20:30 01/19/19 20:29 Pantoprazole (Protonix) 40 mg EVERY 12 HOURS ORAL 12/21/18 21:00 01/20/19 20:59 12/28/18 20:56 Sodium Chloride 1,000 ml @ 30 mls/hr Q24H IVLG 12/26/18 12:00 01/19/19 11:59 12/29/18 05:43 Tamsulosin HCl (Flomax) 0.4 mg BID ORAL 12/21/18 11:45 01/20/19 11:44 12/28/18 18:00 Lacey Brenner NP Dec 29, 2018 08:17
--- NOTE | 2018-12-29 08:53 | NUR ---
NURSE NOTES: Removed Folate 1 tab, drawer shut before taking other two tabs out. Went back in to remove the other two Folate tabs, Shantel said insufficient quantity, verified with Zeferino ESTES. Retrieved the other two Folate tabs from [facility]E [facility] at this time.
--- NOTE | 2018-12-29 08:56 | NUR ---
NURSE NOTES: Platelets 102 (previous order to hold Heparin if less than 100), checked with Dr. Omer for Heparin SQ administration, due to post op day 1, order received for okay to give.
[2018-12-29] MEDS: Carvedilol 25mg Tab ORAL SCH ×2 (09:03→22:07)
[2018-12-29] MEDS: Bisacodyl EC 5mg tab ORAL SCH (09:03)
[2018-12-29] MEDS: Docusate 100mg cap ORAL SCH ×3 (09:03→17:32)
[2018-12-29] MEDS: Tamsulosin 0.4mg cap ORAL SCH ×2 (09:04→17:32)
[2018-12-29] MEDS: Imdur 30mg tab ORAL SCH (09:04)
[2018-12-29] MEDS: Heparin 5000 units/ml inj SUBQ SCH ×2 (09:06→21:00)
--- NOTE | 2018-12-29 09:42 | 48 Hour Post Anesthesia Eval ---
Post Anesthesia Evaluation Procedure: Cysto, resection of bladder tumor Date of Evaluation: Dec 29, 2018 Time of Evaluation: 09:36 Blood Pressure Systolic: 156 0: 82 Pulse Rate: 68 Respiratory Rate: 22 Temperature (Fahrenheit): 97.6 O2 Sat by Pulse Oximetry: 97 Airway: patent Nausea: No Vomiting: No Pain Intensity: 2 Hydration Status: adequate Cardiopulmonary Status: stable Mental Status/LOC: patient returned to baseline Follow-up Care/Observations: n/a Post-Anesthesia Complications: none Follow-up care needed: N/A Marques Abreu MD Dec 29, 2018 09:42
--- NOTE | 2018-12-29 12:45 | Cardiology Progress Note ---
Assessment/Plan Status: stable Assessment/Plan Assessment/Plan Assessment/Plan 1. Accelerated hypertension with blood pressure of around 200. On clonidine 0.2 q8, Norvasc 10 daily, Lasix 40 mg bid, Coreg 25 bid, losartan 100 daily, Imdur 20 daily p.r.n. hydralazine. 2. History of CAD. Echo Nl EF. No CP and No acute ECG changes 3. Hyperlipidemia on Lipitor. 4. Renal failure. Further evaluation by Nephrology. 5. Hematuria. US. Multiple masslike lesions within the bladder. s/p partial resection Transfer to [facility] for full cystectomy and chemo/radiation Subjective Cardiovascular: Reports: no symptoms Respiratory: Reports: no symptoms Gastrointestinal/Abdominal: Reports: no symptoms Genitourinary: Reports: no symptoms Subjective Coverage for Tolu[place] S/p partial bladder resection, no complications, needs transfer to [facility] for complete removal and higher level of care Objective Last 24 Hour Vital Signs Date Time Temp Pulse Resp B/P (MAP) Pulse Ox O2 Delivery O2 Flow Rate FiO2 12/29/18 10:43 147/70 12/29/18 10:42 70 147/70 (95) 12/29/18 09:42 68 22 97 12/29/18 09:04 150/82 12/29/18 09:04 67 150/82 12/29/18 09:03 67 150/82 12/29/18 08:00 98.1 67 18 150/82 (104) 100 12/29/18 05:49 132/60 12/29/18 04:00 97.2 65 18 139/62 (87) 100 12/29/18 01:37 150/59 12/29/18 00:00 98.6 65 18 138/57 (84) 100 12/28/18 22:00 98.0 73 18 150/65 (93) 99 12/28/18 21:42 150/65 12/28/18 21:00 Room Air 12/28/18 20:57 72 162/74 12/28/18 20:00 98.3 72 17 162/74 (103) 99 12/28/18 18:00 165/65 12/28/18 16:00 97.2 70 20 165/65 (98) 97 12/28/18 14:25 179/74 12/28/18 13:45 72 168/63 (98) 98 12/28/18 12:45 96.6 20 177/64 (101) 98 General Appearance: no apparent distress, alert EENT: PERRL/EOMI, normal ENT inspection, TMs normal, pharynx normal Neck: non-tender, normal alignment, supple, normal inspection, no JVD Rhythm: NSR Cardiovascular: normal peripheral pulses, normal rate, regular rhythm Respiratory/Chest: chest wall non-tender, lungs clear, normal breath sounds, no respiratory distress Abdomen: normal bowel sounds, non tender, soft, no organomegaly Extremities: normal range of motion, non-tender, normal inspection Neurologic: primary health care nurse II-XII grossly normal, no motor/sensory deficits Intake and Output 12/28/18 12/29/18 19:00 07:00 Intake Total 710 ml 870 ml Output Total 2050 ml Balance -1340 ml 870 ml Intake Oral 240 ml 600 ml IV Total 470 ml 270 ml Output Urine Total 2000 ml Estimated Blood Loss 50 ml Laboratory Tests Test 12/29/18 05:30 White Blood Count 8.5 K/UL (4.8-10.8) Red Blood Count 3.29 M/UL (4.70-6.10) L Hemoglobin 10.5 G/DL (14.2-18.0) L Hematocrit 33.1 % (42.0-52.0) L Mean Corpuscular Volume 101 FL (80-99) H Mean Corpuscular Hemoglobin 32.1 PG (27.0-31.0) H Mean Corpuscular Hemoglobin Concent 31.8 G/DL (32.0-36.0) L Red Cell Distribution Width 13.9 % (11.6-14.8) Platelet Count 102 K/UL (150-450) L Mean Platelet Volume 10.0 FL (6.5-10.1) Neutrophils (%) (Auto) 74.7 % (45.0-75.0) Lymphocytes (%) (Auto) 11.9 % (20.0-45.0) L Monocytes (%) (Auto) 12.1 % (1.0-10.0) H Eosinophils (%) (Auto) 0.4 % (0.0-3.0) Basophils (%) (Auto) 0.9 % (0.0-2.0) Sodium Level 143 MMOL/L (136-145) Potassium Level 4.6 MMOL/L (3.5-5.1) Chloride Level 111 MMOL/L (98-107) H Carbon Dioxide Level 26 MMOL/L (21-32) Anion Gap 6 mmol/L (5-15) Blood Urea Nitrogen 34 mg/dL (7-18) H Creatinine 1.8 MG/DL (0.55-1.30) H Estimat Glomerular Filtration Rate mL/min (>60) Glucose Level 190 MG/DL (74-106) H Uric Acid 8.3 MG/DL (2.6-7.2) H Calcium Level 8.4 MG/DL (8.5-10.1) L Phosphorus Level 3.5 MG/DL (2.5-4.9) Magnesium Level 2.0 MG/DL (1.8-2.4) Total Bilirubin 0.3 MG/DL (0.2-1.0) Aspartate Amino Transf (AST/SGOT) 21 U/L (15-37) Alanine Aminotransferase (ALT/SGPT) 25 U/L (12-78) Alkaline Phosphatase 52 U/L (46-116) Total Protein 6.0 G/DL (6.4-8.2) L Albumin 2.7 G/DL (3.4-5.0) L Globulin 3.3 g/dL Albumin/Globulin Ratio 0.8 (1.0-2.7) L Grayson Henley MD Dec 29, 2018 12:45
--- NOTE | 2018-12-29 13:03 | Nephrology Progress Note ---
Assessment/Plan Problem List: (1) Acute renal injury Assessment: Cr lowering (2) Gross hematuria (3) Bladder mass (4) Hypertension (5) Diabetes Assessment ANGELA - HTN OOC - Hematuria- Likely UTI Dehydration DM CAD Plan had cysto 12/28 Uro note: Tolerated bladder tumor resection well. Unfortunately greater part of the bladder is involved and essentially replaced all normal bladder with tumor. I can not resect all the tumors. Patient needs a radical cystectomy (removal of bladder) or radiation/chemotherapy at higher level of care. 1. recommend transfer to higher level of care for cystectomy 2. continue richardson, keep irrigation to maintain light pink urine. Rocephin Slow hydrate 2D echo Keep BP and BS in check per orders due cysto as clear by cardio Multiple masslike lesions within the bladder. Further evaluation with cystoscopy is recommended to evaluate for possible neoplasm. Multiple parapelvic renal cysts Subjective ROS Limited/Unobtainable: No Objective Objective Last 24 Hour Vital Signs Date Time Temp Pulse Resp B/P (MAP) Pulse Ox O2 Delivery O2 Flow Rate FiO2 12/29/18 10:43 147/70 12/29/18 10:42 70 147/70 (95) 12/29/18 09:42 68 22 97 12/29/18 09:04 150/82 12/29/18 09:04 67 150/82 12/29/18 09:03 67 150/82 12/29/18 08:00 98.1 67 18 150/82 (104) 100 12/29/18 05:49 132/60 12/29/18 04:00 97.2 65 18 139/62 (87) 100 12/29/18 01:37 150/59 12/29/18 00:00 98.6 65 18 138/57 (84) 100 12/28/18 22:00 98.0 73 18 150/65 (93) 99 12/28/18 21:42 150/65 12/28/18 21:00 Room Air 12/28/18 20:57 72 162/74 12/28/18 20:00 98.3 72 17 162/74 (103) 99 12/28/18 18:00 165/65 12/28/18 16:00 97.2 70 20 165/65 (98) 97 12/28/18 14:25 179/74 8/15/19 13:45 72 168/63 (98) 98 Intake and Output 12/28/18 12/29/18 19:00 07:00 Intake Total 710 ml 870 ml Output Total 2050 ml Balance -1340 ml 870 ml Intake Oral 240 ml 600 ml IV Total 470 ml 270 ml Output Urine Total 2000 ml Estimated Blood Loss 50 ml Laboratory Tests 12/29/18 05:30: White Blood Count 8.5, Red Blood Count 3.29L, Hemoglobin 10.5L, Hematocrit 33.1L , Mean Corpuscular Volume 101H, Mean Corpuscular Hemoglobin 32.1H, Mean Corpuscular Hemoglobin Concent 31.8L, Red Cell Distribution Width 13.9, Platelet Count 102L, Mean Platelet Volume 10.0, Neutrophils (%) (Auto) 74.7, Lymphocytes (%) (Auto) 11.9L, Monocytes (%) (Auto) 12.1H, Eosinophils (%) (Auto ) 0.4, Basophils (%) (Auto) 0.9, Sodium Level 143, Potassium Level 4.6, Chloride Level 111H, Carbon Dioxide Level 26, Anion Gap 6, Blood Urea Nitrogen 34H, Creatinine 1.8H, Estimat Glomerular Filtration Rate , Glucose Level 190H, Uric Acid 8.3H, Calcium Level 8.4L, Phosphorus Level 3.5, Magnesium Level 2.0, Total Bilirubin 0.3, Aspartate Amino Transf (AST/SGOT) 21, Alanine Aminotransferase (ALT/SGPT) 25, Alkaline Phosphatase 52, Total Protein 6.0L, Albumin 2.7L, Globulin 3.3, Albumin/Globulin Ratio 0.8L Height (Feet): 6 Height (Inches): 0.00 Weight (Pounds): 178 General Appearance: no apparent distress Objective no change Russell Sofia MD Dec 29, 2018 13:03
--- NOTE | 2018-12-29 18:10 | Hematology/Onc Progress Note ---
Assessment/Plan Assessment/Plan Assessment and Recs: # Bladder cancer requires resection v chemo/xrt -- presented with multi masses CT shows Scattered eccentric mural thickening/masses in the urinary bladder wall , correlating with findings on recent ultrasound. No significant perivesical stranding. Recommend further evaluation with cystoscopy. --> urology consulted, appreciate input --> Uro note: Tolerated bladder tumor resection well. Unfortunately greater part of the bladder is involved and essentially replaced all normal bladder with tumor. I can not resect all the tumors. Patient needs a radical cystectomy (removal of bladder) or radiation/chemotherapy at higher level of care. --> recommend transfer to higher level of care for cystectomy --> dw rn case management and if doesn't get transfered, set up for chemo/radiation as outpatient --> path does confirm malignancy # Thrombocytopenia - potential causes multifactorial, evaluate liver and viral etiologies to begin, also could be related to underlying medications patient has received. --> Hep panel and HIV -> NEGATIVE --> US abd showed bladder masses-->ct reviewed as well --> Peripheral smear ordered to evaluate for blasts /schistocytes --> none noted --> abx and other meds have been reviewed --> ok for ppx if plt >50k w/ either heparin or lovenox --> trend plt 103-->92k-->90k->94k->102k # Anemia of iron deficiency likely due to hematuria --> iv iron started x 5 days low ferritin --> likely due to hematuria --> have started on ivf and consider uro prn cysto # Acute renal injury --> cr has improved 2.3-->1.8-->2.3->1.6-->1.4-->1.4 --> per renal recs --> volume expansion # HTN --> cards consulted # Hematuria # UTI (urinary tract infection) # Dehydration The timing of this note does not necessarily reflect the time of the patient was seen. GREATLY APPRECIATE CONSULTATION. Subjective Cardiovascular: Denies: no symptoms, chest pain, edema, irregular heart rate, lightheadedness, palpitations, syncope, other Respiratory: Denies: no symptoms, cough, shortness of breath, SOB with excertion, SOB at rest, sputum, wheezing, other Gastrointestinal/Abdominal: Denies: no symptoms, abdomen distended, abdominal pain, black stools, tarry stools, blood in stool, constipated, diarrhea, difficulty swallowing, nausea, poor appetite, poor fluid intake, rectal bleeding , vomiting, other Genitourinary: Denies: no symptoms, burning, discharge, frequency, flank pain, hematuria, incontinence, pain, urgency, other Neurologic/Psychiatric: Denies: no symptoms, anxiety, depressed, emotional problems, headache, numbness, paresthesia, pre-existing deficit, seizure, tingling, tremors, weakness, other Endocrine: Denies: no symptoms, excessive sweating, flushing, intolerance to cold, intolerance to heat, increased hunger, increased thirst, increased urine, unexplained weight gain, unexplained weight loss, other Allergies: Coded Allergies: No Known Allergies (Unverified , 12/20/18) Subjective 12/22: no events noted, no bleeding, ct ordered for the us findings with multiple masses in bladder, cysto recommended 12/24: no events, no bleeding, no night sweats noted, no chills reported 12/25: no fevers, no chills, no major changes, cysto for /12/26: awaiting further uro recs, feeling better, no f/c, prbc prn 12/27: no events, no bleeding, no night sweats, cysto pending 12/28: tolerated bladder tumor resection well, hgb remains >10 12/29: no events, pending potential tx, no bleeding Objective Objective Current Medications Medications (Trade) Dose Ordered Sig/Sallie Route PRN Reason Start Time Stop Time Status Last Admin Dose Admin Acetaminophen (Tylenol) 650 mg Q4H PRN ORAL fever 12/20/18 20:30 01/19/19 20:29 Amlodipine Besylate (Norvasc) 10 mg DAILY ORAL 12/21/18 09:00 01/20/19 08:59 12/29/18 09:04 Atorvastatin Calcium (Lipitor) 20 mg BEDTIME ORAL 12/21/18 21:00 01/20/19 20:59 12/28/18 20:58 Bisacodyl (Dulcolax) 5 mg DAILY ORAL 12/21/18 09:00 01/20/19 08:59 12/29/18 09:03 Carvedilol (Coreg) 25 mg EVERY 12 HOURS ORAL 12/27/18 09:00 01/20/19 08:59 12/29/18 09:03 Clonidine HCl (Catapres tab) 0.2 mg Q8H ORAL 12/28/18 10:00 01/21/19 09:59 12/29/18 17:32 Dextrose (Dextrose 50%) 25 ml Q30M PRN IV Hypoglycemia 12/20/18 20:30 01/19/19 20:29 Dextrose (Dextrose 50%) 50 ml Q30M PRN IV Hypoglycemia 12/20/18 20:30 01/19/19 20:29 Diphenhydramine HCl (Benadryl) 25 mg Q6H PRN ORAL Itching/Pruritis 12/20/18 20:30 01/19/19 20:29 Docusate Sodium (Colace) 100 mg THREE TIMES A DAY ORAL 12/21/18 18:00 01/20/19 17:59 12/29/18 17:32 Folic Acid (Folate) 3 mg DAILY ORAL 12/23/18 10:00 01/22/19 09:59 12/29/18 09:03 Heparin Sodium (Porcine) (Heparin 5000 units/ml) 5,000 units EVERY 12 HOURS SUBQ 12/21/18 09:00 01/19/19 21:46 12/29/18 09:06 Hydralazine HCl (Apresoline) 100 mg Q8HR ORAL 12/27/18 14:00 01/20/19 08:59 12/29/18 13:31 Insulin Aspart (NovoLOG) BEFORE MEALS AND HS SUBQ 12/21/18 06:30 01/20/19 06:29 12/29/18 17:22 Isosorbide Mononitrate (Imdur) 60 mg DAILY ORAL 12/21/18 11:45 01/20/19 11:44 12/29/18 09:04 Minoxidil (Loniten) 2.5 mg Q4H PRN ORAL bp over 165 syst 12/25/18 12:00 01/24/19 11:59 12/27/18 13:00 Nitroglycerin (Ntg) 0.4 mg Q5M X 3 DOSES PRN SL Prn Chest Pain 12/20/18 20:30 01/19/19 20:29 Ondansetron HCl (Zofran) 4 mg Q6H PRN IVP Nausea & Vomiting 12/20/18 20:30 01/19/19 20:29 Pantoprazole (Protonix) 40 mg EVERY 12 HOURS ORAL 12/21/18 21:00 01/20/19 20:59 12/29/18 09:04 Sodium Chloride 1,000 ml @ 30 mls/hr Q24H IVLG 12/26/18 12:00 01/19/19 11:59 12/29/18 05:43 Tamsulosin HCl (Flomax) 0.4 mg BID ORAL 12/21/18 11:45 01/20/19 11:44 12/29/18 17:32 Last 24 Hour Vital Signs Date Time Temp Pulse Resp B/P (MAP) Pulse Ox O2 Delivery O2 Flow Rate FiO2 12/29/18 17:32 141/79 12/29/18 13:31 128/58 12/29/18 10:43 147/70 12/29/18 10:42 70 147/70 (95) 12/29/18 09:42 68 22 97 12/29/18 09:04 150/82 12/29/18 09:04 67 150/82 12/29/18 09:03 67 150/82 12/29/18 08:00 98.1 67 18 150/82 (104) 100 12/29/18 05:49 132/60 12/29/18 04:00 97.2 65 18 139/62 (87) 100 12/29/18 01:37 150/59 12/29/18 00:00 98.6 65 18 138/57 (84) 100 12/28/18 22:00 98.0 73 18 150/65 (93) 99 12/28/18 21:42 150/65 12/28/18 21:00 Room Air 12/28/18 20:57 72 162/74 12/28/18 20:00 98.3 72 17 162/74 (103) 99 12/28/18 18:00 165/65 12/28/18 16:00 97.2 70 20 165/65 (98) 97 12/28/18 14:25 179/74 12/28/18 13:45 72 168/63 (98) 98 12/28/18 12:45 96.6 20 177/64 (101) 98 12/28/18 11:45 Room Air 12/28/18 11:45 64 179/74 (109) 100 12/28/18 11:15 97.8 66 20 178/73 (108) 100 12/28/18 11:00 97.6 62 18 180/69 100 Nasal Cannula 3 12/28/18 10:49 97.4 12/28/18 10:45 68 17 183/77 100 Nasal Cannula 3 12/28/18 10:30 65 15 188/80 100 Nasal Cannula 3 12/28/18 10:10 69 20 206/86 100 Nasal Cannula 3 12/28/18 10:07 67 199/81 12/28/18 10:00 199/81 12/28/18 10:00 66 14 195/75 100 Nasal Cannula 3 12/28/18 09:47 218/88 12/28/18 09:45 68 17 218/88 100 Nasal Cannula 3 12/28/18 09:30 72 18 202/87 100 Nasal Cannula 3 12/28/18 09:20 71 15 143/61 99 Nasal Cannula 3 12/28/18 09:18 68 22 98 12/28/18 09:14 97.5 67 20 163/74 100 Nasal Cannula 3 12/28/18 09:00 67 199/81 12/28/18 09:00 199/81 12/28/18 08:00 177/61 12/28/18 06:00 177/61 12/28/18 04:00 98.3 60 20 177/61 (99) 98 12/28/18 00:00 173/64 12/28/18 00:00 97.9 69 18 173/64 (100) 97 12/27/18 21:19 175/67 12/27/18 21:18 71 175/67 12/27/18 21:00 Room Air 12/27/18 20:00 97.4 71 18 175/67 (103) 98 Intake and Output 12/28/18 12/29/18 19:00 07:00 Intake Total 710 ml 900 ml Output Total 2050 ml Balance -1340 ml 900 ml Intake Oral 240 ml 600 ml IV Total 470 ml 300 ml Output Urine Total 2000 ml Estimated Blood Loss 50 ml Labs Test 12/27/18 05:00 12/29/18 05:30 White Blood Count 5.6 K/UL (4.8-10.8) 8.5 K/UL (4.8-10.8) Red Blood Count 3.39 M/UL (4.70-6.10) 3.29 M/UL (4.70-6.10) Hemoglobin 10.6 G/DL (14.2-18.0) 10.5 G/DL (14.2-18.0) Hematocrit 33.1 % (42.0-52.0) 33.1 % (42.0-52.0) Mean Corpuscular Volume 98 FL (80-99) 101 FL (80-99) Mean Corpuscular Hemoglobin 31.3 PG (27.0-31.0) 32.1 PG (27.0-31.0) Mean Corpuscular Hemoglobin Concent 32.0 G/DL (32.0-36.0) 31.8 G/DL (32.0-36.0) Red Cell Distribution Width 12.3 % (11.6-14.8) 13.9 % (11.6-14.8) Platelet Count 94 K/UL (150-450) 102 K/UL (150-450) Mean Platelet Volume 9.0 FL (6.5-10.1) 10.0 FL (6.5-10.1) Neutrophils (%) (Auto) % (45.0-75.0) 74.7 % (45.0-75.0) Lymphocytes (%) (Auto) % (20.0-45.0) 11.9 % (20.0-45.0) Monocytes (%) (Auto) % (1.0-10.0) 12.1 % (1.0-10.0) Eosinophils (%) (Auto) % (0.0-3.0) 0.4 % (0.0-3.0) Basophils (%) (Auto) % (0.0-2.0) 0.9 % (0.0-2.0) Prothrombin Time 10.2 SEC (9.30-11.50) Prothromb Time International Ratio 1.0 (0.9-1.1) Activated Partial Thromboplast Time 30 SEC (23-33) Sodium Level 142 MMOL/L (136-145) 143 MMOL/L (136-145) Potassium Level 3.9 MMOL/L (3.5-5.1) 4.6 MMOL/L (3.5-5.1) Chloride Level 109 MMOL/L (98-107) 111 MMOL/L (98-107) Carbon Dioxide Level 27 MMOL/L (21-32) 26 MMOL/L (21-32) Anion Gap 6 mmol/L (5-15) 6 mmol/L (5-15) Blood Urea Nitrogen 28 mg/dL (7-18) 34 mg/dL (7-18) Creatinine 1.4 MG/DL (0.55-1.30) 1.8 MG/DL (0.55-1.30) Estimat Glomerular Filtration Rate mL/min (>60) mL/min (>60) Glucose Level 167 MG/DL (74-106) 190 MG/DL (74-106) Calcium Level 8.6 MG/DL (8.5-10.1) 8.4 MG/DL (8.5-10.1) Phosphorus Level 2.1 MG/DL (2.5-4.9) 3.5 MG/DL (2.5-4.9) Magnesium Level 1.8 MG/DL (1.8-2.4) 2.0 MG/DL (1.8-2.4) Total Bilirubin 0.4 MG/DL (0.2-1.0) 0.3 MG/DL (0.2-1.0) Aspartate Amino Transf (AST/SGOT) 29 U/L (15-37) 21 U/L (15-37) Alanine Aminotransferase (ALT/SGPT) 29 U/L (12-78) 25 U/L (12-78) Alkaline Phosphatase 48 U/L (46-116) 52 U/L (46-116) Total Protein 6.3 G/DL (6.4-8.2) 6.0 G/DL (6.4-8.2) Albumin 2.8 G/DL (3.4-5.0) 2.7 G/DL (3.4-5.0) Globulin 3.5 g/dL 3.3 g/dL Albumin/Globulin Ratio 0.8 (1.0-2.7) 0.8 (1.0-2.7) Uric Acid 8.3 MG/DL (2.6-7.2) Height (Feet): 6 Height (Inches): 0.00 Weight (Pounds): 178 Objective Physical Exam: Vitals: reviewed General Appearance: NAD HEENT: normocephalic, atraumatic Neck: non-tender, normal alignment Respiratory/Chest: normal breath sounds bilaterally Cardiovascular/Chest: normal peripheral pulses, normal rate Abdomen: normal bowel sounds, soft, nontender Extremities: normal range of motion + clots noted in urinal Skin: no rash Marcelo Mcallister MD Dec 29, 2018 18:10
--- NOTE | 2018-12-29 20:05 | NUR ---
HAND-OFF: Report given to Lionel GUTIERREZ. True Urine Output: 1240 ml In: 12,040 ml (x3 4 liter NS bottles and irrgated 40 ml NS at 1050a) Out: 10,800
--- NOTE | 2018-12-29 20:06 | NUR ---
NURSE NOTES: Received patient no Apparent distress. NC 2L on. IV site patent and intact. Oconnor cath on for continuous bladder irrigation, pinkish urine noted. Bed in lowest position. Call light within reach. Will continue to monitor.
--- NOTE | 2018-12-29 20:52 | General Progress Note ---
Assessment/Plan Problem List: (1) UTI (urinary tract infection) ICD Codes: N39.0 - Urinary tract infection, site not specified SNOMED: 05332416, 8263791 (2) CAD (coronary artery disease) ICD Codes: I25.10 - Atherosclerotic heart disease of [place] coronary artery without angina pectoris SNOMED: 80728772 (3) Hematuria ICD Codes: R31.9 - Hematuria, unspecified SNOMED: 39436118, 8537593 (4) Dehydration ICD Codes: E86.0 - Dehydration SNOMED: 02863660, 2214679 (5) ATN (acute tubular necrosis) ICD Codes: N17.0 - Acute kidney failure with tubular necrosis SNOMED: 28932224 (6) Diabetes ICD Codes: E11.9 - Type 2 diabetes mellitus without complications SNOMED: 32194345 (7) Anemia ICD Codes: D64.9 - Anemia, unspecified SNOMED: 250570084 (8) CHF (congestive heart failure) ICD Codes: I50.9 - Heart failure, unspecified SNOMED: 32845689 (9) Weak ICD Codes: R53.1 - Weakness SNOMED: 70319808 (10) HTN (hypertension) ICD Codes: I10 - Essential (primary) hypertension SNOMED: 16245738 (11) ARF (acute renal failure) ICD Codes: N17.9 - Acute kidney failure, unspecified SNOMED: 86425191 (12) Bladder mass ICD Codes: N32.89 - Other specified disorders of bladder SNOMED: 215057781 (13) Acute renal injury ICD Codes: N17.9 - Acute kidney failure, unspecified SNOMED: 66617605, 1573171 Status: stable Assessment/Plan: uti dehydration arf htn chf weak reviewed chart and labs and meds Subjective ROS Limited/Unobtainable: Yes Allergies: Coded Allergies: No Known Allergies (Unverified , 12/20/18) Objective Last 24 Hour Vital Signs Date Time Temp Pulse Resp B/P (MAP) Pulse Ox O2 Delivery O2 Flow Rate FiO2 12/29/18 17:32 141/79 12/29/18 13:31 128/58 12/29/18 10:43 147/70 12/29/18 10:42 70 147/70 (95) 12/29/18 09:42 68 22 97 12/29/18 09:04 150/82 12/29/18 09:04 67 150/82 12/29/18 09:03 67 150/82 12/29/18 08:00 98.1 67 18 150/82 (104) 100 12/29/18 05:49 132/60 12/29/18 04:00 97.2 65 18 139/62 (87) 100 12/29/18 01:37 150/59 12/29/18 00:00 98.6 65 18 138/57 (84) 100 12/28/18 22:00 98.0 73 18 150/65 (93) 99 12/28/18 21:42 150/65 12/28/18 21:00 Room Air 12/28/18 20:57 72 162/74 Intake and Output 12/28/18 12/29/18 19:00 07:00 Intake Total 710 ml 900 ml Output Total 2050 ml Balance -1340 ml 900 ml Intake Oral 240 ml 600 ml IV Total 470 ml 300 ml Output Urine Total 2000 ml Estimated Blood Loss 50 ml Laboratory Tests 12/29/18 05:30: White Blood Count 8.5, Red Blood Count 3.29L, Hemoglobin 10.5L, Hematocrit 33.1L , Mean Corpuscular Volume 101H, Mean Corpuscular Hemoglobin 32.1H, Mean Corpuscular Hemoglobin Concent 31.8L, Red Cell Distribution Width 13.9, Platelet Count 102L, Mean Platelet Volume 10.0, Neutrophils (%) (Auto) 74.7, Lymphocytes (%) (Auto) 11.9L, Monocytes (%) (Auto) 12.1H, Eosinophils (%) (Auto ) 0.4, Basophils (%) (Auto) 0.9, Sodium Level 143, Potassium Level 4.6, Chloride Level 111H, Carbon Dioxide Level 26, Anion Gap 6, Blood Urea Nitrogen 34H, Creatinine 1.8H, Estimat Glomerular Filtration Rate , Glucose Level 190H, Uric Acid 8.3H, Calcium Level 8.4L, Phosphorus Level 3.5, Magnesium Level 2.0, Total Bilirubin 0.3, Aspartate Amino Transf (AST/SGOT) 21, Alanine Aminotransferase (ALT/SGPT) 25, Alkaline Phosphatase 52, Total Protein 6.0L, Albumin 2.7L, Globulin 3.3, Albumin/Globulin Ratio 0.8L Height (Feet): 6 Height (Inches): 0.00 Weight (Pounds): 178 Cardiovascular: normal rate Respiratory/Chest: lungs clear Abdomen: soft Subhash Corona MD Dec 29, 2018 20:52
[2018-12-29] MEDS: Atorvastatin 20mg tab ORAL SCH (22:08)
[2018-12-30] VITALS (7 sets, daily range): BP systolic 107–161; BP diastolic 55–72
[2018-12-30] MEDS: cloNIDine 0.2mg Tab ORAL SCH ×3 (02:05→17:31)
[2018-12-30] MEDS: HydrALAZINE 50mg tab ORAL SCH ×3 (06:00→21:13)
[2018-12-30 06:15] LABS: HEMATOCRIT 29.3 % (42.0-52.0); HEMOGLOBIN 9.3 G/DL (14.2-18.0); MEAN CORPUSCULAR VOLUME 100 FL (80-99); PLATELET COUNT 85 K/UL (150-450); RED BLOOD COUNT 2.94 M/UL (4.70-6.10); RED CELL DISTRIBUTION WIDTH 13.9 % (11.6-14.8); WHITE BLOOD COUNT 7.8 K/UL (4.8-10.8)
[2018-12-30] MEDS: NovoLOG Insulin Flexpen SUBQ SCH ×4 (06:32→21:13)
[2018-12-30 06:58] LABS: ANION GAP 6 mmol/L (5-15); BLOOD UREA NITROGEN 39 mg/dL (7-18); CALCIUM 7.9 MG/DL (8.5-10.1); CARBON DIOXIDE 25 MMOL/L (21-32); CHLORIDE 113 MMOL/L (98-107); CREATININE 2.1 MG/DL (0.55-1.30); POTASSIUM 4.9 MMOL/L (3.5-5.1); SODIUM 144 MMOL/L (136-145)
--- NOTE | 2018-12-30 07:28 | NUR ---
HAND-OFF: Report given to Mo GUTIERREZ.
--- NOTE | 2018-12-30 07:28 | NUR ---
NURSE NOTES: Pt in bed in low position, call light next to pt, pt awake and Ox3, pt on room air, pt denies pain, richardson catheter in place with irrigation flowing and to be changed in 1/2hr, IV Rt hand running NS@30, bed alarm on, pt makes needs known, no s/s of distress or sob noted.
--- NOTE | 2018-12-30 08:30 | Pulmonology Progress Note ---
Assessment/Plan Assessment/Plan ASSESSMENT Bladder cancer, status post resection Hematuria, secondary to bladder cancer Acute kidney injury Dehydration Hypertensive urgency Diabetes mellitus History of CVA Hyperlipidemia CAD Iron deficiency anemia PLAN OF CARE [facility] floor status post cystoscopy, resection of bladder tumor urologist was unable to remove all masses and recommended transfer to higher level of care FOR removal of urinary bladder Oconnor catheter with CBI, still with hematuria, but no clots Hgb trending down chest x-ray negative O2 HHN as needed Echo with pEF 65%. Aortic stenosis monitor renal parameters and lytes, correct electrolytes as needed creatinine trending up CT of the abdomen and pelvis confirmed lesions seen in the bladder ultrasound , likely neoplasm; gallstone pain management supportive care awaiting transfer to higher level of care case discussed and evaluated by supervising physician Subjective Allergies: Coded Allergies: No Known Allergies (Unverified , 12/20/18) Subjective creat up to 2.1 today Hgb down to 9.3 no signs of resp distress, afebrile Objective Last 24 Hour Vital Signs Date Time Temp Pulse Resp B/P (MAP) Pulse Ox O2 Delivery O2 Flow Rate FiO2 12/30/18 08:07 Nasal Cannula 2.0 12/30/18 08:02 98.4 66 22 155/65 (95) 99 12/30/18 06:00 107/72 12/30/18 04:00 98.5 82 16 107/72 (84) 96 12/30/18 02:05 143/61 12/30/18 00:00 98.5 68 18 143/61 (88) 98 12/29/18 22:08 143/58 12/29/18 22:07 66 143/58 12/29/18 21:00 Nasal Cannula 2.0 12/29/18 20:00 99.3 66 16 143/58 (86) 98 12/29/18 17:32 141/79 12/29/18 16:00 98.2 67 18 141/55 (83) 99 12/29/18 13:31 128/58 12/29/18 12:00 98.3 78 20 122/73 (89) 98 12/29/18 10:43 147/70 12/29/18 10:42 70 147/70 (95) 12/29/18 09:42 68 22 97 12/29/18 09:04 150/82 8/16/19 09:04 67 150/82 12/29/18 09:03 67 150/82 Intake and Output 12/29/18 12/30/18 19:00 07:00 Intake Total 660 ml Balance 660 ml Intake Oral 300 ml IV Total 360 ml # Bowel Movements 1 Objective General Appearance: elderly AA male in no acute distress HEENT: normocephalic, atraumatic, anicteric, mucous membranes moist Respiratory/Chest: lungs clear, no respiratory distress, no accessory muscle use Cardiovascular: normal rate Abdomen: normal bowel sounds, soft, non tender : F/catheter with CBI urine cranberry color, no clots Neurologic/Psychiatric: alert, awake, responsive, depressed Laboratory Tests 12/30/18 05:20: White Blood Count 7.8, Red Blood Count 2.94L, Hemoglobin 9.3L, Hematocrit 29.3L , Mean Corpuscular Volume 100H, Mean Corpuscular Hemoglobin 31.6H, Mean Corpuscular Hemoglobin Concent 31.7L, Red Cell Distribution Width 13.9, Platelet Count 85L, Mean Platelet Volume 10.6H, Neutrophils (%) (Auto) , Lymphocytes (%) (Auto) , Monocytes (%) (Auto) , Eosinophils (%) (Auto) , Basophils (%) (Auto) , Neutrophils % (Manual) [Pending], Lymphocytes % (Manual) [Pending], Platelet Estimate [Pending], Platelet Morphology [Pending], Sodium Level 144, Potassium Level 4.9, Chloride Level 113H, Carbon Dioxide Level 25, Anion Gap 6, Blood Urea Nitrogen 39H, Creatinine 2.1H, Estimat Glomerular Filtration Rate , Glucose Level 190H, Calcium Level 7.9L Current Medications Medications (Trade) Dose Ordered Sig/Sallie Route PRN Reason Start Time Stop Time Status Last Admin Dose Admin Acetaminophen (Tylenol) 650 mg Q4H PRN ORAL fever 12/20/18 20:30 01/19/19 20:29 Amlodipine Besylate (Norvasc) 10 mg DAILY ORAL 12/21/18 09:00 01/20/19 08:59 12/29/18 09:04 Atorvastatin Calcium (Lipitor) 20 mg BEDTIME ORAL 12/21/18 21:00 01/20/19 20:59 12/29/18 22:08 Bisacodyl (Dulcolax) 5 mg DAILY ORAL 12/21/18 09:00 9/7/19 08:59 12/29/18 09:03 Carvedilol (Coreg) 25 mg EVERY 12 HOURS ORAL 12/27/18 09:00 01/20/19 08:59 12/29/18 22:07 Clonidine HCl (Catapres tab) 0.2 mg Q8H ORAL 12/28/18 10:00 01/21/19 09:59 12/30/18 02:05 Dextrose (Dextrose 50%) 25 ml Q30M PRN IV Hypoglycemia 12/20/18 20:30 01/19/19 20:29 Dextrose (Dextrose 50%) 50 ml Q30M PRN IV Hypoglycemia 12/20/18 20:30 01/19/19 20:29 Diphenhydramine HCl (Benadryl) 25 mg Q6H PRN ORAL Itching/Pruritis 12/20/18 20:30 01/19/19 20:29 Docusate Sodium (Colace) 100 mg THREE TIMES A DAY ORAL 12/21/18 18:00 01/20/19 17:59 12/29/18 17:32 Folic Acid (Folate) 3 mg DAILY ORAL 12/23/18 10:00 01/22/19 09:59 12/29/18 09:03 Heparin Sodium (Porcine) (Heparin 5000 units/ml) 5,000 units EVERY 12 HOURS SUBQ 12/21/18 09:00 01/19/19 21:46 12/29/18 09:06 Hydralazine HCl (Apresoline) 100 mg Q8HR ORAL 12/27/18 14:00 01/20/19 08:59 12/29/18 22:08 Insulin Aspart (NovoLOG) BEFORE MEALS AND HS SUBQ 12/21/18 06:30 01/20/19 06:29 12/30/18 06:32 Isosorbide Mononitrate (Imdur) 60 mg DAILY ORAL 12/21/18 11:45 01/20/19 11:44 12/29/18 09:04 Minoxidil (Loniten) 2.5 mg Q4H PRN ORAL bp over 165 syst 12/25/18 12:00 01/24/19 11:59 12/27/18 13:00 Nitroglycerin (Ntg) 0.4 mg Q5M X 3 DOSES PRN SL Prn Chest Pain 12/20/18 20:30 01/19/19 20:29 Ondansetron HCl (Zofran) 4 mg Q6H PRN IVP Nausea & Vomiting 12/20/18 20:30 01/19/19 20:29 Pantoprazole (Protonix) 40 mg EVERY 12 HOURS ORAL 12/21/18 21:00 01/20/19 20:59 12/29/18 22:07 Sodium Chloride 1,000 ml @ 30 mls/hr Q24H IVLG 12/26/18 12:00 01/19/19 11:59 12/29/18 05:43 Tamsulosin HCl (Flomax) 0.4 mg BID ORAL 12/21/18 11:45 01/20/19 11:44 12/29/18 17:32 Lacey Brenner NP Dec 30, 2018 08:30
[2018-12-30] MEDS: Heparin 5000 units/ml inj SUBQ SCH ×2 (09:00→21:00)
[2018-12-30] MEDS: Tamsulosin 0.4mg cap ORAL SCH ×2 (09:25→17:30)
[2018-12-30] MEDS: Docusate 100mg cap ORAL SCH ×3 (09:25→17:30)
[2018-12-30] MEDS: Bisacodyl EC 5mg tab ORAL SCH (09:27)
[2018-12-30] MEDS: Imdur 30mg tab ORAL SCH (09:27)
[2018-12-30] MEDS: Carvedilol 25mg Tab ORAL SCH ×2 (09:28→21:12)
--- NOTE | 2018-12-30 09:56 | Cardiology Progress Note ---
Assessment/Plan Status: stable Assessment/Plan Assessment/Plan Assessment/Plan 1. Accelerated hypertension with blood pressure of around 200. On clonidine 0.2 q8, Norvasc 10 daily, Lasix 40 mg bid, Coreg 25 bid, losartan 100 daily, Imdur 20 daily p.r.n. hydralazine. 2. History of CAD. Echo Nl EF. No CP and No acute ECG changes 3. Hyperlipidemia on Lipitor. 4. Renal failure. Further evaluation by Nephrology. 5. Hematuria. US. Multiple masslike lesions within the bladder. s/p partial resection Transfer to [facility] for full cystectomy and chemo/radiation Subjective Cardiovascular: Reports: no symptoms Respiratory: Reports: no symptoms Gastrointestinal/Abdominal: Reports: no symptoms Genitourinary: Reports: no symptoms Subjective Coverage for [place] S/p partial bladder resection, no complications, needs transfer to [facility] for complete removal and higher level of care Objective Last 24 Hour Vital Signs Date Time Temp Pulse Resp B/P (MAP) Pulse Ox O2 Delivery O2 Flow Rate FiO2 12/30/18 09:28 66 155/65 12/30/18 09:27 155/65 12/30/18 09:27 155/65 12/30/18 09:27 66 155/65 12/30/18 08:07 Nasal Cannula 2.0 12/30/18 08:02 98.4 66 22 155/65 (95) 99 12/30/18 06:00 107/72 12/30/18 04:00 98.5 82 16 107/72 (84) 96 12/30/18 02:05 143/61 12/30/18 00:00 98.5 68 18 143/61 (88) 98 12/29/18 22:08 143/58 12/29/18 22:07 66 143/58 12/29/18 21:00 Nasal Cannula 2.0 12/29/18 20:00 99.3 66 16 143/58 (86) 98 12/29/18 17:32 141/79 12/29/18 16:00 98.2 67 18 141/55 (83) 99 12/29/18 13:31 128/58 12/29/18 12:00 98.3 78 20 122/73 (89) 98 12/29/18 10:43 147/70 12/29/18 10:42 70 147/70 (95) General Appearance: no apparent distress, alert EENT: PERRL/EOMI, normal ENT inspection, TMs normal, pharynx normal Neck: non-tender, normal alignment, supple, normal inspection, no JVD Rhythm: NSR Cardiovascular: normal peripheral pulses, normal rate Respiratory/Chest: chest wall non-tender, lungs clear, normal breath sounds Abdomen: normal bowel sounds, non tender Extremities: normal range of motion, non-tender, normal inspection, no calf tenderness, no swelling Neurologic: electronic assembly II-XII grossly normal, no motor/sensory deficits Intake and Output 12/29/18 12/30/18 19:00 07:00 Intake Total 660 ml Balance 660 ml Intake Oral 300 ml IV Total 360 ml # Bowel Movements 1 Laboratory Tests Test 12/30/18 05:20 White Blood Count 7.8 K/UL (4.8-10.8) Red Blood Count 2.94 M/UL (4.70-6.10) L Hemoglobin 9.3 G/DL (14.2-18.0) L Hematocrit 29.3 % (42.0-52.0) L Mean Corpuscular Volume 100 FL (80-99) H Mean Corpuscular Hemoglobin 31.6 PG (27.0-31.0) H Mean Corpuscular Hemoglobin Concent 31.7 G/DL (32.0-36.0) L Red Cell Distribution Width 13.9 % (11.6-14.8) Platelet Count 85 K/UL (150-450) L Mean Platelet Volume 10.6 FL (6.5-10.1) H Neutrophils (%) (Auto) % (45.0-75.0) Lymphocytes (%) (Auto) % (20.0-45.0) Monocytes (%) (Auto) % (1.0-10.0) Eosinophils (%) (Auto) % (0.0-3.0) Basophils (%) (Auto) % (0.0-2.0) Differential Total Cells Counted 100 Neutrophils % (Manual) 70 % (45-75) Lymphocytes % (Manual) 20 % (20-45) Monocytes % (Manual) 10 % (1-10) Eosinophils % (Manual) 0 % (0-3) Basophils % (Manual) 0 % (0-2) Band Neutrophils 0 % (0-8) Platelet Estimate Decreased L Platelet Morphology Normal Polychromasia 1+ Hypochromasia 1+ Macrocytosis 1+ Sodium Level 144 MMOL/L (136-145) Potassium Level 4.9 MMOL/L (3.5-5.1) Chloride Level 113 MMOL/L (98-107) H Carbon Dioxide Level 25 MMOL/L (21-32) Anion Gap 6 mmol/L (5-15) Blood Urea Nitrogen 39 mg/dL (7-18) H Creatinine 2.1 MG/DL (0.55-1.30) H Estimat Glomerular Filtration Rate mL/min (>60) Glucose Level 190 MG/DL (74-106) H Calcium Level 7.9 MG/DL (8.5-10.1) L Grayson Henley MD Dec 30, 2018 09:56
--- NOTE | 2018-12-30 10:33 | Nephrology Progress Note ---
Assessment/Plan Problem List: (1) Acute renal injury Assessment: Cr rising again (2) Gross hematuria (3) Bladder mass (4) Hypertension (5) Diabetes Assessment ANGELA - HTN OOC - Hematuria- Likely UTI Dehydration DM CAD Plan start 05/17 NS 100 cc hour check labs in am had cysto 12/28 Uro note: Tolerated bladder tumor resection well. Unfortunately greater part of the bladder is involved and essentially replaced all normal bladder with tumor. I can not resect all the tumors. Patient needs a radical cystectomy (removal of bladder) or radiation/chemotherapy at higher level of care. 1. recommend transfer to higher level of care for cystectomy 2. continue richardson, keep irrigation to maintain light pink urine. Rocephin Slow hydrate 2D echo Keep BP and BS in check per orders due cysto as clear by cardio Multiple masslike lesions within the bladder. Further evaluation with cystoscopy is recommended to evaluate for possible neoplasm. Multiple parapelvic renal cysts Subjective ROS Limited/Unobtainable: No Constitutional: Reports: malaise Objective Objective Last 24 Hour Vital Signs Date Time Temp Pulse Resp B/P (MAP) Pulse Ox O2 Delivery O2 Flow Rate FiO2 12/30/18 09:28 66 155/65 12/30/18 09:27 155/65 12/30/18 09:27 155/65 12/30/18 09:27 66 155/65 12/30/18 08:07 Nasal Cannula 2.0 12/30/18 08:02 98.4 66 22 155/65 (95) 99 12/30/18 06:00 107/72 12/30/18 04:00 98.5 82 16 107/72 (84) 96 12/30/18 02:05 143/61 12/30/18 00:00 98.5 68 18 143/61 (88) 98 12/29/18 22:08 143/58 12/29/18 22:07 66 143/58 12/29/18 21:00 Nasal Cannula 2.0 12/29/18 20:00 99.3 66 16 143/58 (86) 98 12/29/18 17:32 141/79 12/29/18 16:00 98.2 67 18 141/55 (83) 99 12/29/18 13:31 128/58 12/29/18 12:00 98.3 78 20 122/73 (89) 98 12/29/18 10:43 147/70 12/29/18 10:42 70 147/70 (95) Intake and Output 12/29/18 12/30/18 19:00 07:00 Intake Total 660 ml Balance 660 ml Intake Oral 300 ml IV Total 360 ml # Bowel Movements 1 Laboratory Tests 12/30/18 05:20: White Blood Count 7.8, Red Blood Count 2.94L, Hemoglobin 9.3L, Hematocrit 29.3L , Mean Corpuscular Volume 100H, Mean Corpuscular Hemoglobin 31.6H, Mean Corpuscular Hemoglobin Concent 31.7L, Red Cell Distribution Width 13.9, Platelet Count 85L, Mean Platelet Volume 10.6H, Neutrophils (%) (Auto) , Lymphocytes (%) (Auto) , Monocytes (%) (Auto) , Eosinophils (%) (Auto) , Basophils (%) (Auto) , Differential Total Cells Counted 100, Neutrophils % ( Manual) 70, Lymphocytes % (Manual) 20, Monocytes % (Manual) 10, Eosinophils % ( Manual) 0, Basophils % (Manual) 0, Band Neutrophils 0, Platelet Estimate DecreasedL, Platelet Morphology Normal, Polychromasia 1+, Hypochromasia 1+, Macrocytosis 1+, Sodium Level 144, Potassium Level 4.9, Chloride Level 113H, Carbon Dioxide Level 25, Anion Gap 6, Blood Urea Nitrogen 39H, Creatinine 2.1H, Estimat Glomerular Filtration Rate , Glucose Level 190H, Calcium Level 7.9L Height (Feet): 6 Height (Inches): 0.00 Weight (Pounds): 178 General Appearance: no apparent distress Respiratory/Chest: decreased breath sounds Abdomen: soft, distended Genitourinary/Rectal: other - 3 way richardson irrigation: bloody Objective no change Russell Sofia MD Dec 30, 2018 10:33
--- NOTE | 2018-12-30 12:34 | NUR ---
NURSE NOTES: pt was weighed at 307lbs was marked as 177lbs which was incorrect. BRIDGETT Brenner called to make the adjustment for the sliding scale
--- NOTE | 2018-12-30 16:19 | NUR ---
PT Note PT re-eval completed, following bladder surgery. Patient is noted to have generalized edema, has muscle weakness and decreased sitting and standing balance. Patient needs PT to increase his muscle strength and balance to improve his functional mobility to PLF. Addendum: 12/30/18 at 1619 by VIET AVILA PT Amended: Links added.
[2018-12-30] MEDS ORDERED: NS Irrig 4000ml IRRIG ONE (17:25)
[2018-12-30] MEDS ORDERED: NS Irrig 1000ml ONE (17:25)
--- NOTE | 2018-12-30 19:14 | NUR ---
HAND-OFF: Report given to beau GUTIERREZ.
--- NOTE | 2018-12-30 19:26 | General Progress Note ---
Assessment/Plan Problem List: (1) UTI (urinary tract infection) ICD Codes: N39.0 - Urinary tract infection, site not specified SNOMED: 34360907, 6462442 (2) CAD (coronary artery disease) ICD Codes: I25.10 - Atherosclerotic heart disease of [place] coronary artery without angina pectoris SNOMED: 12492089 (3) Hematuria ICD Codes: R31.9 - Hematuria, unspecified SNOMED: 73438154, 1604906 (4) Dehydration ICD Codes: E86.0 - Dehydration SNOMED: 67046020, 1195375 (5) ATN (acute tubular necrosis) ICD Codes: N17.0 - Acute kidney failure with tubular necrosis SNOMED: 28293534 (6) Diabetes ICD Codes: E11.9 - Type 2 diabetes mellitus without complications SNOMED: 02581192 (7) Anemia ICD Codes: D64.9 - Anemia, unspecified SNOMED: 675474247 (8) CHF (congestive heart failure) ICD Codes: I50.9 - Heart failure, unspecified SNOMED: 29623840 (9) Weak ICD Codes: R53.1 - Weakness SNOMED: 25210011 (10) HTN (hypertension) ICD Codes: I10 - Essential (primary) hypertension SNOMED: 05723795 (11) ARF (acute renal failure) ICD Codes: N17.9 - Acute kidney failure, unspecified SNOMED: 20205704 (12) Bladder mass ICD Codes: N32.89 - Other specified disorders of bladder SNOMED: 293399945 (13) Acute renal injury ICD Codes: N17.9 - Acute kidney failure, unspecified SNOMED: 52581097, 9524639 Status: stable Assessment/Plan: uti dehydration arf htn abx per id no acute events no wheezing chf Subjective ROS Limited/Unobtainable: Yes Allergies: Coded Allergies: No Known Allergies (Unverified , 12/20/18) Objective Last 24 Hour Vital Signs Date Time Temp Pulse Resp B/P (MAP) Pulse Ox O2 Delivery O2 Flow Rate FiO2 12/30/18 17:31 154/58 12/30/18 16:00 97.8 60 19 154/58 (90) 98 12/30/18 13:20 161/57 12/30/18 12:00 97.3 83 20 161/57 (91) 98 12/30/18 09:28 66 155/65 12/30/18 09:27 155/65 12/30/18 09:27 155/65 12/30/18 09:27 66 155/65 12/30/18 08:07 Nasal Cannula 2.0 12/30/18 08:02 98.4 66 22 155/65 (95) 99 12/30/18 06:00 107/72 12/30/18 04:00 98.5 82 16 107/72 (84) 96 12/30/18 02:05 143/61 12/30/18 00:00 98.5 68 18 143/61 (88) 98 12/29/18 22:08 143/58 12/29/18 22:07 66 143/58 12/29/18 21:00 Nasal Cannula 2.0 12/29/18 20:00 99.3 66 16 143/58 (86) 98 Intake and Output 12/29/18 12/30/18 18:59 06:59 Intake Total 660 ml 30 ml Balance 660 ml 30 ml Intake Oral 300 ml IV Total 360 ml 30 ml # Bowel Movements 1 Laboratory Tests 12/30/18 05:20: White Blood Count 7.8, Red Blood Count 2.94L, Hemoglobin 9.3L, Hematocrit 29.3L , Mean Corpuscular Volume 100H, Mean Corpuscular Hemoglobin 31.6H, Mean Corpuscular Hemoglobin Concent 31.7L, Red Cell Distribution Width 13.9, Platelet Count 85L, Mean Platelet Volume 10.6H, Neutrophils (%) (Auto) , Lymphocytes (%) (Auto) , Monocytes (%) (Auto) , Eosinophils (%) (Auto) , Basophils (%) (Auto) , Differential Total Cells Counted 100, Neutrophils % ( Manual) 70, Lymphocytes % (Manual) 20, Monocytes % (Manual) 10, Eosinophils % ( Manual) 0, Basophils % (Manual) 0, Band Neutrophils 0, Platelet Estimate DecreasedL, Platelet Morphology Normal, Polychromasia 1+, Hypochromasia 1+, Macrocytosis 1+, Sodium Level 144, Potassium Level 4.9, Chloride Level 113H, Carbon Dioxide Level 25, Anion Gap 6, Blood Urea Nitrogen 39H, Creatinine 2.1H, Estimat Glomerular Filtration Rate , Glucose Level 190H, Calcium Level 7.9L Height (Feet): 6 Height (Inches): 0.00 Weight (Pounds): 178 Cardiovascular: normal rate Respiratory/Chest: lungs clear Abdomen: soft Subhash Corona MD Dec 30, 2018 19:26
--- NOTE | 2018-12-30 19:55 | NUR ---
NURSE NOTES: Patient in bed, awake, alert and verbally responsive. Able to make needs known. Complaint of lower leg pain, will reassess. Skin is warm and dry to touch. Iv site noted, IV fluid is infusing as ordered. Respiration is even and unlabored. Oconnor catheter noted, continue bladder irrigation. Bed in low and locked position. Call light is at bedside. Will continue plan of care.
[2018-12-30] MEDS: Atorvastatin 20mg tab ORAL SCH (21:12)
[2018-12-31] MEDS: cloNIDine 0.2mg Tab ORAL SCH ×3 (02:00→17:56)
[2018-12-31 04:00] VITALS: BP 154/63
--- NOTE | 2018-12-31 05:30 | NUR ---
NURSE NOTES: Patient is awake, alert x 4, refused blood draw, explained to the patient the need, still refused. Will ask again later. call light is at bedside.
[2018-12-31] MEDS: HydrALAZINE 50mg tab ORAL SCH ×3 (06:04→21:10)
[2018-12-31] MEDS: NovoLOG Insulin Flexpen SUBQ SCH ×4 (06:05→21:10)
--- NOTE | 2018-12-31 07:13 | NUR ---
HAND-OFF: Report given to Pedro Maddox.
--- NOTE | 2018-12-31 07:30 | NUR ---
NURSE NOTES: Patient in bed awake and able to verbalize needs. Stable. Denies pain or SOB. Patient encouraged to use call light for assistance, verbalized understanding. CBI. Urine is pinkish. Will continue to irrigate. Patient is in bed in locked and lowest position with call light within reach. All safety measures provided. Will continue to monitor.
[2018-12-31 08:00] VITALS: BP 150/56
[2018-12-31] MEDS: Bisacodyl EC 5mg tab ORAL SCH (08:58)
[2018-12-31] MEDS: Docusate 100mg cap ORAL SCH ×3 (08:59→18:00)
[2018-12-31] MEDS: Carvedilol 25mg Tab ORAL SCH ×2 (08:59→21:09)
[2018-12-31] MEDS: Tamsulosin 0.4mg cap ORAL SCH ×2 (08:59→17:55)
[2018-12-31] MEDS: Imdur 30mg tab ORAL SCH (08:59)
[2018-12-31] MEDS: Heparin 5000 units/ml inj SUBQ SCH ×2 (09:00→21:00)
--- NOTE | 2018-12-31 09:53 | Cardiology Progress Note ---
Assessment/Plan Status: stable Assessment/Plan Assessment/Plan Assessment/Plan 1. Accelerated hypertension with blood pressure of around 200. On clonidine 0.2 q8, Norvasc 10 daily, Lasix 40 mg bid, Coreg 25 bid, losartan 100 daily, Imdur 20 daily p.r.n. hydralazine. 2. History of CAD. Echo Nl EF. No CP and No acute ECG changes 3. Hyperlipidemia on Lipitor. 4. Renal failure. Further evaluation by Nephrology. 5. Hematuria. US. Multiple masslike lesions within the bladder. s/p partial resection Transfer to [facility] for full cystectomy and chemo/radiation Subjective Cardiovascular: Reports: no symptoms Respiratory: Reports: no symptoms Gastrointestinal/Abdominal: Reports: no symptoms Genitourinary: Reports: no symptoms Subjective Coverage for Toluie S/p partial bladder resection, no complications, needs transfer to [facility] for complete removal and higher level of care Vitals stable, pain controlled, no complaints. Objective Last 24 Hour Vital Signs Date Time Temp Pulse Resp B/P (MAP) Pulse Ox O2 Delivery O2 Flow Rate FiO2 12/31/18 08:59 72 150/56 12/31/18 08:59 150/56 12/31/18 08:59 72 150/56 12/31/18 06:04 154/63 12/31/18 04:00 97.5 67 20 154/63 (93) 95 12/31/18 02:00 128/67 12/30/18 23:47 98.6 60 18 131/59 (83) 99 12/30/18 21:13 137/55 12/30/18 21:12 66 137/55 12/30/18 21:00 Nasal Cannula 2.0 12/30/18 20:00 98.5 66 18 137/55 (82) 98 12/30/18 17:31 154/58 12/30/18 16:00 97.8 60 19 154/58 (90) 98 12/30/18 13:20 161/57 12/30/18 12:00 97.3 83 20 161/57 (91) 98 General Appearance: no apparent distress, alert EENT: PERRL/EOMI, normal ENT inspection, TMs normal, pharynx normal Neck: non-tender, normal alignment, supple, normal inspection, no JVD Rhythm: NSR Cardiovascular: normal peripheral pulses, normal rate, regular rhythm Respiratory/Chest: chest wall non-tender, lungs clear, normal breath sounds, no respiratory distress Abdomen: normal bowel sounds, non tender, soft, no organomegaly, no mass Extremities: normal range of motion, non-tender, normal inspection 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
--- NOTE | 2018-12-31 10:00 | NUR ---
NURSE NOTES: Patient's bp is 117/72, pulse 73, held 10:00am BP meds.
--- NOTE | 2018-12-31 10:03 | Pulmonology Progress Note ---
Assessment/Plan Assessment/Plan ASSESSMENT Bladder cancer, status post resection Hematuria, secondary to bladder cancer Acute kidney injury Dehydration Hypertensive urgency Diabetes mellitus History of CVA Coronary artery disease Hyperlipidemia Iron deficiency anemia PLAN OF CARE MS floor status post cystoscopy, resection of bladder tumor urologist was unable to remove all masses and recommended transfer to higher level of care for removal of urinary bladder Oconnor catheter with CBI, still hematuria monitor HH chest x-ray negative O2 HHN as needed Echo with pEF 65%. Aortic stenosis monitor renal parameters and lytes, correct electrolytes as needed creatinine trending up CT of the abdomen and pelvis confirmed lesions seen in the bladder ultrasound , likely neoplasm; gallstones pain management supportive care may need transfer to higher level of care if worsening renal parameters and continue bleeding continue CBI, fup woth labs /pending case discussed and evaluated by supervising physician Subjective Allergies: Coded Allergies: No Known Allergies (Unverified , 12/20/18) Subjective labs pending this am on 12/30 worsening creat and HH trending down no signs of resp distress, afebrile on CBI -urine clear light cranberry color Objective Last 24 Hour Vital Signs Date Time Temp Pulse Resp B/P (MAP) Pulse Ox O2 Delivery O2 Flow Rate FiO2 12/31/18 08:59 72 150/56 12/31/18 08:59 150/56 12/31/18 08:59 72 150/56 12/31/18 06:04 154/63 12/31/18 04:00 97.5 67 20 154/63 (93) 95 12/31/18 02:00 128/67 12/30/18 23:47 98.6 60 18 131/59 (83) 99 12/30/18 21:13 137/55 12/30/18 21:12 66 137/55 12/30/18 21:00 Nasal Cannula 2.0 12/30/18 20:00 98.5 66 18 137/55 (82) 98 12/30/18 17:31 154/58 12/30/18 16:00 97.8 60 19 154/58 (90) 98 12/30/18 13:20 161/57 12/30/18 12:00 97.3 83 20 161/57 (91) 98 Intake and Output 12/30/18 12/31/18 19:00 07:00 Intake Total 880 ml 1250 ml Output Total 5750 ml 88792 ml Balance -4870 ml -86205 ml Intake Oral 780 ml 250 ml IV Total 100 ml 1000 ml Output Urine Total 5750 ml 59582 ml Objective General Appearance: elderly AA male in no acute distress HEENT: normocephalic, atraumatic, anicteric, mucous membranes moist Respiratory/Chest: lungs clear, no respiratory distress, no accessory muscle use Cardiovascular: normal rate Abdomen: normal bowel sounds, soft, non tender : F/catheter with CBI urine clear cranberry color, no clots Neurologic/Psychiatric: alert, awake, responsive, depressed Current Medications Medications (Trade) Dose Ordered Sig/Sallie Route PRN Reason Start Time Stop Time Status Last Admin Dose Admin Acetaminophen (Tylenol) 650 mg Q4H PRN ORAL fever 12/20/18 20:30 01/19/19 20:29 Amlodipine Besylate (Norvasc) 10 mg DAILY ORAL 12/21/18 09:00 01/20/19 08:59 12/31/18 08:59 Atorvastatin Calcium (Lipitor) 20 mg BEDTIME ORAL 12/21/18 21:00 01/20/19 20:59 12/30/18 21:12 Bisacodyl (Dulcolax) 5 mg DAILY ORAL 12/21/18 09:00 01/20/19 08:59 12/31/18 08:58 Carvedilol (Coreg) 25 mg EVERY 12 HOURS ORAL 12/27/18 09:00 01/20/19 08:59 12/31/18 08:59 Clonidine HCl (Catapres tab) 0.2 mg Q8H ORAL 12/28/18 10:00 01/21/19 09:59 12/30/18 17:31 Dextrose (Dextrose 50%) 25 ml Q30M PRN IV Hypoglycemia 12/30/18 13:00 01/29/19 12:59 Dextrose (Dextrose 50%) 50 ml Q30M PRN IV Hypoglycemia 12/30/18 13:00 01/29/19 12:59 Diphenhydramine HCl (Benadryl) 25 mg Q6H PRN ORAL Itching/Pruritis 12/20/18 20:30 01/19/19 20:29 Docusate Sodium (Colace) 100 mg THREE TIMES A DAY ORAL 12/21/18 18:00 01/20/19 17:59 12/31/18 08:59 Folic Acid (Folate) 3 mg DAILY ORAL 12/23/18 10:00 01/22/19 09:59 12/31/18 08:58 Heparin Sodium (Porcine) (Heparin 5000 units/ml) 5,000 units EVERY 12 HOURS SUBQ 12/21/18 09:00 01/19/19 21:46 12/29/18 09:06 Hydralazine HCl (Apresoline) 100 mg Q8HR ORAL 12/27/18 14:00 01/20/19 08:59 12/31/18 06:04 Insulin Aspart (NovoLOG) BEFORE MEALS AND HS SUBQ 12/30/18 16:30 01/29/19 16:29 12/31/18 06:05 Isosorbide Mononitrate (Imdur) 60 mg DAILY ORAL 12/21/18 11:45 01/20/19 11:44 12/31/18 08:59 Minoxidil (Loniten) 2.5 mg Q4H PRN ORAL bp over 165 syst 12/25/18 12:00 01/24/19 11:59 12/27/18 13:00 Nitroglycerin (Ntg) 0.4 mg Q5M X 3 DOSES PRN SL Prn Chest Pain 12/20/18 20:30 01/19/19 20:29 Ondansetron HCl (Zofran) 4 mg Q6H PRN IVP Nausea & Vomiting 12/20/18 20:30 01/19/19 20:29 Pantoprazole (Protonix) 40 mg EVERY 12 HOURS ORAL 12/21/18 21:00 01/20/19 20:59 12/31/18 08:59 Sodium Chloride 1,000 ml @ 100 mls/hr Q10H IV 12/30/18 10:30 01/29/19 10:29 12/31/18 06:04 Tamsulosin HCl (Flomax) 0.4 mg BID ORAL 12/21/18 11:45 01/20/19 11:44 12/31/18 08:59 Lacey Brenner WATER MANAGER Dec 31, 2018 10:03
[2018-12-31 12:00] VITALS: BP 165/62
--- NOTE | 2018-12-31 13:09 | Nephrology Progress Note ---
Assessment/Plan Problem List: (1) Acute renal injury Assessment: Cr rising again (2) Gross hematuria (3) Bladder mass (4) Hypertension (5) Diabetes Assessment ANGELA - HTN OOC - Hematuria- Likely UTI Dehydration DM CAD Plan start 05/17 NS 100 cc hour check labs in am had cysto 12/28 Uro note: Tolerated bladder tumor resection well. Unfortunately greater part of the bladder is involved and essentially replaced all normal bladder with tumor. I can not resect all the tumors. Patient needs a radical cystectomy (removal of bladder) or radiation/chemotherapy at higher level of care. 1. recommend transfer to higher level of care for cystectomy 2. continue richardson, keep irrigation to maintain light pink urine. Rocephin Slow hydrate 2D echo Keep BP and BS in check per orders due cysto as clear by cardio Multiple masslike lesions within the bladder. Further evaluation with cystoscopy is recommended to evaluate for possible neoplasm. Multiple parapelvic renal cysts Subjective ROS Limited/Unobtainable: No Constitutional: Reports: malaise Objective Objective Last 24 Hour Vital Signs Date Time Temp Pulse Resp B/P (MAP) Pulse Ox O2 Delivery O2 Flow Rate FiO2 12/31/18 12:00 98.5 74 18 165/62 (96) 97 12/31/18 10:00 117/72 12/31/18 09:00 Nasal Cannula 2.0 12/31/18 08:59 72 150/56 12/31/18 08:59 150/56 12/31/18 08:59 72 150/56 12/31/18 08:00 98.5 72 18 150/56 (87) 99 12/31/18 06:04 154/63 12/31/18 04:00 97.5 67 20 154/63 (93) 95 12/31/18 02:00 128/67 12/30/18 23:47 98.6 60 18 131/59 (83) 99 12/30/18 21:13 137/55 12/30/18 21:12 66 137/55 12/30/18 21:00 Nasal Cannula 2.0 12/30/18 20:00 98.5 66 18 137/55 (82) 98 12/30/18 17:31 154/58 12/30/18 16:00 97.8 60 19 154/58 (90) 98 8/17/19 13:20 161/57 Intake and Output 12/30/18 12/31/18 19:00 07:00 Intake Total 880 ml 1250 ml Output Total 5750 ml 44205 ml Balance -4870 ml -42205 ml Intake Oral 780 ml 250 ml IV Total 100 ml 1000 ml Output Urine Total 5750 ml 36064 ml Height (Feet): 6 Height (Inches): 0.00 Weight (Pounds): 178 General Appearance: no apparent distress Objective no change Russell Sofia MD Dec 31, 2018 13:09
--- NOTE | 2018-12-31 13:40 | NUR ---
RD ASSESSMENT & RECOMMENDATIONS SEE CARE ACTIVITY FOR COMPLETE ASSESSMENT DAILY ESTIMATED NEEDS: Needs based on Morbid obesity, renal 89kg adj 20-25 kcals/kg 8585-7447 total kcals 1-1.5 g protein/kg 89-134 g total protein 25-30 mL/kg 4557-8984 total fluid mLs NUTRITION DIAGNOSIS: 1) Obesity etiology unknown as evidenced by BMI >40, pt is est @172% of [place] Body Weight. 2) Altered nutrition related lab values r/t clinical status as evidenced by A1C 6.1, elev BG (167-190), elev BP, elev BNP, elev Creat (1.4-> 2.1). CURRENT DIET:[facility] MED PO DIET RECOMMENDATIONS: [facility] MED/ CARDIAC + DOUBLE PRO PORTIONS ADDITIONAL RECOMMENDATIONS: 1) Obtain an accurate wt -> Pt does NOT appear c/w BMI 24.4 per EMR -> EMR now reflects obese BMI. 2) Monitor lytes, need for renal diet restrictions 3) A1C 6.1, rec hypoglycemics + accuchecks 4) Consider BHARATH BID for surgical wound healing
--- NOTE | 2018-12-31 13:47 | Consultation ---
History of Present Illness General Date patient seen: Dec 31, 2018 Present Illness Allergies: Coded Allergies: No Known Allergies (Unverified , 12/20/18) Medication History Scheduled Amlodipine Besylate* (Amlodipine Besylate*), 10 MG ORAL DAILY, (Reported) Atorvastatin Calcium* (Atorvastatin Calcium*), 80 MG ORAL BEDTIME, (Reported) Bisacodyl* (Dulcolax*), 5 MG ORAL DAILY, (Reported) Carvedilol (Coreg), 12.5 MG ORAL EVERY 12 HOURS, (Reported) Clonidine Hcl* (Catapres*), 0.2 MG ORAL Q8HR, (Reported) Dutasteride (Avodart), 0.5 MG ORAL DAILY, (Reported) Furosemide* (Lasix*), 40 MG ORAL TWICE A DAY, (Reported) Hydralazine Hcl* (Hydralazine Hcl*), 50 MG ORAL BID, (Reported) Isosorbide Dinitrate* (Isordil*), 20 MG ORAL DAILY, (Reported) Losartan Potassium* (Losartan Potassium*), 100 MG ORAL DAILY, (Reported) Vitamin B Complex (Vitamin B Complex), 1 CAP ORAL DAILY, (Reported) Scheduled PRN Acetaminophen* (Acetaminophen 325MG Tablet*), 650 MG ORAL Q4H PRN for For Pain, (Reported) Magnesium Hydroxide* (Milk Of Magnesia*), 30 ML ORAL EVERY 6 HOURS PRN for stomach upset, (Reported) Patient History Healthcare decision maker SELF Resuscitation status Full Code Advanced Directive on File Yes Physical Exam Last 24 Hour Vital Signs Date Time Temp Pulse Resp B/P (MAP) Pulse Ox O2 Delivery O2 Flow Rate FiO2 12/31/18 12:00 98.5 74 18 165/62 (96) 97 12/31/18 10:00 117/72 12/31/18 09:00 Nasal Cannula 2.0 12/31/18 08:59 72 150/56 12/31/18 08:59 150/56 12/31/18 08:59 72 150/56 12/31/18 08:00 98.5 72 18 150/56 (87) 99 12/31/18 06:04 154/63 12/31/18 04:00 97.5 67 20 154/63 (93) 95 12/31/18 02:00 128/67 12/30/18 23:47 98.6 60 18 131/59 (83) 99 12/30/18 21:13 137/55 12/30/18 21:12 66 137/55 12/30/18 21:00 Nasal Cannula 2.0 12/30/18 20:00 98.5 66 18 137/55 (82) 98 12/30/18 17:31 154/58 12/30/18 16:00 97.8 60 19 154/58 (90) 98 Intake and Output 12/30/18 12/31/18 19:00 07:00 Intake Total 880 ml 1250 ml Output Total 5750 ml 65252 ml Balance -4870 ml -40742 ml Intake Oral 780 ml 250 ml IV Total 100 ml 1000 ml Output Urine Total 5750 ml 37603 ml Height (Feet): 6 Height (Inches): 0.00 Weight (Pounds): 178 Medications Current Medications Medications (Trade) Dose Ordered Sig/Sallie Route PRN Reason Start Time Stop Time Status Last Admin Dose Admin Acetaminophen (Tylenol) 650 mg Q4H PRN ORAL Mild Pain/Temp > 100.5 12/31/18 14:00 01/19/19 13:59 Amlodipine Besylate (Norvasc) 10 mg DAILY ORAL 12/21/18 09:00 01/20/19 08:59 12/31/18 08:59 Atorvastatin Calcium (Lipitor) 20 mg BEDTIME ORAL 12/21/18 21:00 01/20/19 20:59 12/30/18 21:12 Bisacodyl (Dulcolax) 5 mg DAILY ORAL 12/21/18 09:00 01/20/19 08:59 12/31/18 08:58 Carvedilol (Coreg) 25 mg EVERY 12 HOURS ORAL 12/27/18 09:00 01/20/19 08:59 12/31/18 08:59 Clonidine HCl (Catapres tab) 0.2 mg Q8H ORAL 12/28/18 10:00 01/21/19 09:59 12/30/18 17:31 Dextrose (Dextrose 50%) 25 ml Q30M PRN IV Hypoglycemia 12/30/18 13:00 01/29/19 12:59 Dextrose (Dextrose 50%) 50 ml Q30M PRN IV Hypoglycemia 12/30/18 13:00 01/29/19 12:59 Diphenhydramine HCl (Benadryl) 25 mg Q6H PRN ORAL Itching/Pruritis 12/20/18 20:30 01/19/19 20:29 Docusate Sodium (Colace) 100 mg THREE TIMES A DAY ORAL 12/21/18 18:00 01/20/19 17:59 12/31/18 08:59 Folic Acid (Folate) 3 mg DAILY ORAL 12/23/18 10:00 01/22/19 09:59 12/31/18 08:58 Heparin Sodium (Porcine) (Heparin 5000 units/ml) 5,000 units EVERY 12 HOURS SUBQ 12/21/18 09:00 01/19/19 21:46 12/29/18 09:06 Hydralazine HCl (Apresoline) 100 mg Q8HR ORAL 12/27/18 14:00 01/20/19 08:59 12/31/18 06:04 Insulin Aspart (NovoLOG) BEFORE MEALS AND HS SUBQ 12/30/18 16:30 01/29/19 16:29 12/31/18 11:58 Isosorbide Mononitrate (Imdur) 60 mg DAILY ORAL 12/21/18 11:45 01/20/19 11:44 12/31/18 08:59 Minoxidil (Loniten) 2.5 mg Q4H PRN ORAL bp over 165 syst 12/25/18 12:00 01/24/19 11:59 12/27/18 13:00 Nitroglycerin (Ntg) 0.4 mg Q5M X 3 DOSES PRN SL Prn Chest Pain 12/20/18 20:30 01/19/19 20:29 Ondansetron HCl (Zofran) 4 mg Q6H PRN IVP Nausea & Vomiting 12/20/18 20:30 01/19/19 20:29 Pantoprazole (Protonix) 40 mg EVERY 12 HOURS ORAL 12/21/18 21:00 01/20/19 20:59 12/31/18 08:59 Sodium Chloride 1,000 ml @ 100 mls/hr Q10H IV 12/30/18 10:30 01/29/19 10:29 12/31/18 06:04 Tamsulosin HCl (Flomax) 0.4 mg BID ORAL 12/21/18 11:45 01/20/19 11:44 12/31/18 08:59 Assessment/Plan Assessment/Plan: (1) Bladder cancer s/p resection (2) H/O CVA Seen dictated Jewel Frank Dec 31, 2018 13:47
[2018-12-31 16:00] VITALS: BP 125/76
--- NOTE | 2018-12-31 19:34 | NUR ---
NURSE NOTES: Patient is at the edge of the bed, awake, alert and verbally responsive. Able to make needs known. Skin is warm and dry to touch. Abdomen is soft. Oconnor catheter noted, on continuos bladder irrigation. IV site noted. IV fluid is infusing as ordered. NO complaint of pain or discomfort noted. Bed in low and locked position. Provided safe environment. Will continue plan of care.
--- NOTE | 2018-12-31 19:40 | NUR ---
HAND-OFF: Report given to Cameron GUTIERREZ. Patient is stable. Assisted back to bed by RN without incident. Call light within reach. Bed in locked and lowest position. All needs met at this time.
[2018-12-31 20:00] VITALS: BP 169/63
[2018-12-31] MEDS: Atorvastatin 20mg tab ORAL SCH (21:09)
--- NOTE | 2018-12-31 21:10 | NUR ---
NURSE NOTES: Patient up on the toilet, IV pulled out. Patient did not call [employer] SAL[employer] REPRESENTATIVE, or nurse. Will reinsert IV. Patients richardson catheter intact, continued bladder irrigation. Educated patient regarding use of call light. Call light is at bedside. Will continue plan of care.
--- NOTE | 2018-12-31 21:55 | General Progress Note ---
Assessment/Plan Problem List: (1) UTI (urinary tract infection) ICD Codes: N39.0 - Urinary tract infection, site not specified SNOMED: 65345412, 2464131 (2) CAD (coronary artery disease) ICD Codes: I25.10 - Atherosclerotic heart disease of [place] coronary artery without angina pectoris SNOMED: 29095281 (3) Hematuria ICD Codes: R31.9 - Hematuria, unspecified SNOMED: 34751486, 4901316 (4) Dehydration ICD Codes: E86.0 - Dehydration SNOMED: 38065596, 6747345 (5) ATN (acute tubular necrosis) ICD Codes: N17.0 - Acute kidney failure with tubular necrosis SNOMED: 78293826 (6) Diabetes ICD Codes: E11.9 - Type 2 diabetes mellitus without complications SNOMED: 31236119 (7) Anemia ICD Codes: D64.9 - Anemia, unspecified SNOMED: 695157782 (8) CHF (congestive heart failure) ICD Codes: I50.9 - Heart failure, unspecified SNOMED: 95875600 (9) Weak ICD Codes: R53.1 - Weakness SNOMED: 77816653 (10) HTN (hypertension) ICD Codes: I10 - Essential (primary) hypertension SNOMED: 02722870 (11) ARF (acute renal failure) ICD Codes: N17.9 - Acute kidney failure, unspecified SNOMED: 46803162 (12) Bladder mass ICD Codes: N32.89 - Other specified disorders of bladder SNOMED: 148574720 (13) Acute renal injury ICD Codes: N17.9 - Acute kidney failure, unspecified SNOMED: 47544254, 2439771 Status: stable Assessment/Plan: uti dehydration arf htn no wheezing afebrile reviewed chart and labs and meds chf Subjective ROS Limited/Unobtainable: Yes Allergies: Coded Allergies: No Known Allergies (Unverified , 12/20/18) Objective Last 24 Hour Vital Signs Date Time Temp Pulse Resp B/P (MAP) Pulse Ox O2 Delivery O2 Flow Rate FiO2 12/31/18 21:10 169/63 12/31/18 21:09 75 169/63 12/31/18 21:00 Nasal Cannula 2.0 12/31/18 20:00 99.1 75 22 169/63 (98) 100 12/31/18 17:56 169/63 12/31/18 16:00 98.7 91 19 125/76 (92) 97 12/31/18 13:56 133/86 12/31/18 12:00 98.5 74 18 165/62 (96) 97 12/31/18 10:00 117/72 12/31/18 09:00 Nasal Cannula 2.0 12/31/18 08:59 72 150/56 12/31/18 08:59 150/56 12/31/18 08:59 72 150/56 12/31/18 08:00 98.5 72 18 150/56 (87) 99 12/31/18 06:04 154/63 12/31/18 04:00 97.5 67 20 154/63 (93) 95 12/31/18 02:00 128/67 12/30/18 23:47 98.6 60 18 131/59 (83) 99 Intake and Output 12/30/18 12/31/18 18:59 06:59 Intake Total 780 ml 1350 ml Output Total 5750 ml 91883 ml Balance -4970 ml -9925 ml Intake Oral 780 ml 250 ml IV Total 1100 ml Output Urine Total 5750 ml 44661 ml Height (Feet): 6 Height (Inches): 0.00 Weight (Pounds): 178 Neck: supple Cardiovascular: normal rate Respiratory/Chest: lungs clear Abdomen: soft Subhash Corona MD Dec 31, 2018 21:55
[2019-01-01] VITALS: BP 150/60
--- NOTE | 2019-01-01 00:45 | Consultation ---
DATE OF CONSULTATION: 12/31/2018 PAIN MANAGEMENT CONSULTATION REFERRING PHYSICIAN: Jamie Gray D.O. CONSULTING PHYSICIAN: Tashi Ruelas M.D. PHYSICIAN PADDING MACHINE OPERATOR: Karol Gonzalez CHIEF COMPLAINT: Groin pain. HISTORY OF PRESENT ILLNESS: This is an 83-year-old male, who is being seen on the Med/Surg floor of [facility] for initial pain management consultation. The patient was admitted under the care of Dr. Gray, found to have hematuria, acute renal failure, and was diagnosed with bladder cancer, status post resection. He is in bed and is complaining of some groin pain. He is not on any kind of pain medication at this time. He is on Tylenol, but it is only for fever. At this time, I discussed with the patient about changing that for pain. He seems to understand and agree and he has no other complaints. PAST MEDICAL HISTORY: Hypertension, diabetes, CHF, CVA, and coronary artery disease. SOCIAL HISTORY: Denies smoking, drinking alcohol, or IV rug abuse. ALLERGIES: No known drug allergies. MEDICATIONS: Amlodipine, atorvastatin, Dulcolax, Coreg, Catapres, albuterol , Lasix, hydralazine, Isordil, losartan, vitamin B, Tylenol, and milk of magnesia. REVIEW OF SYSTEMS: Denies rash, fever, chills, sweating, dizziness, drowsiness, blurred vision, sore throat, or change in weight. No shortness of breath, chest pain, or productive cough. No nausea, vomiting, or diarrhea. He is complaining of groin pain. PHYSICAL EXAMINATION: GENERAL: Alert, awake, and oriented. VITAL SIGNS: Blood pressure 136/62, heart rate 75, oxygen saturation 97%, respiratory rate 18, and temperature 98.5 degrees Fahrenheit. HEENT: PERRLA. NECK: Range of motion is decreased due to the patient's condition. LUNGS: Decreased breath sounds bilaterally. HEART: S1 and S2 regular. ABDOMEN: Obese. BACK: Range of motion is decreased in flexion and extension. EXTREMITIES: Upper and lower extremity range of motion is decreased due to the patient's condition. No cyanosis. No clubbing. Sensory is intact. Reflexes are not obtainable. No adenopathy. ASSESSMENT AND PLAN: This is an 83-year-old male with bladder cancer, status post resection and history of cerebrovascular accident. The patient will be started on Tylenol 650 mg every four hours as needed for pain. The patient was discussed with Dr. Ruelas and Dr. Ruelas concurred. We will follow the patient. Thank you very much for the courtesy of this consultation. Tashi Ruelas M.D. SAMANTHA Gonzalez DR: Sharleen JOB#: [id number] CC: ADAM
[2019-01-01] MEDS ORDERED: Albuterol/Ipratropium 3ml neb HHN SCH (01:00)
[2019-01-01] MEDS: cloNIDine 0.2mg Tab ORAL SCH ×3 (01:44→18:18)
[2019-01-01 04:00] VITALS: BP 123/50
--- NOTE | 2019-01-01 05:07 | NUR ---
NURSE NOTES: Patient complained of power extremities pain, given PRN pain medication. Also removed SCD's and will put back on in one hour. Call light is at bedside. Will continue plan of care.
[2019-01-01] MEDS: HydrALAZINE 50mg tab ORAL SCH ×3 (06:09→22:00)
[2019-01-01] MEDS: NovoLOG Insulin Flexpen SUBQ SCH ×4 (06:10→21:23)
[2019-01-01 06:29] LABS: HEMATOCRIT 28.2 % (42.0-52.0); HEMOGLOBIN 8.8 G/DL (14.2-18.0); MEAN CORPUSCULAR VOLUME 101 FL (80-99); PLATELET COUNT 92 K/UL (150-450); RED BLOOD COUNT 2.79 M/UL (4.70-6.10); RED CELL DISTRIBUTION WIDTH 13.4 % (11.6-14.8); WHITE BLOOD COUNT 5.4 K/UL (4.8-10.8)
[2019-01-01 07:10] LABS: ALANINE AMINOTRANSFERASE 22 U/L (12-78); ALBUMIN 2.7 G/DL (3.4-5.0); ALBUMIN/GLOBULIN RATIO 0.9 (1.0-2.7); ALKALINE PHOSPHATASE 47 U/L (46-116); ANION GAP 8 mmol/L (5-15); ASPARTATE AMINO TRANSFERASE 18 U/L (15-37); BILIRUBIN,TOTAL 0.3 MG/DL (0.2-1.0); BLOOD UREA NITROGEN 35 mg/dL (7-18); CALCIUM 8.2 MG/DL (8.5-10.1); CARBON DIOXIDE 24 MMOL/L (21-32); CHLORIDE 110 MMOL/L (98-107); CREATININE 1.7 MG/DL (0.55-1.30); PHOSPHORUS 2.9 MG/DL (2.5-4.9); POTASSIUM 4.8 MMOL/L (3.5-5.1); SODIUM 142 MMOL/L (136-145)
--- NOTE | 2019-01-01 07:16 | NUR ---
HAND-OFF: Report given to MATT Gutierrez.
--- NOTE | 2019-01-01 07:30 | NUR ---
NURSE NOTES: Patient is in bed asleep. No signs of distress noted. Breathing is even. Oxygen via NC tolerated well. CBI running as ordered, red urine noted. Patient is in bed in locked and lowest position with call light within reach. All safety measures provided. Will continue to monitor.
[2019-01-01 08:00] VITALS: BP 158/67
--- NOTE | 2019-01-01 08:53 | General Progress Note ---
Assessment/Plan Assessment/Plan: (1) Bladder cancer s/p resection (2) H/O CVA Patient to be continued on Tylenol. D/w Dr. Ruelas and he concurred. Subjective Date patient seen: Jan 01, 2019 Time patient seen: 07:45 - am Constitutional: Reports: no symptoms HEENT: Reports: no symptoms Cardiovascular: Reports: no symptoms Respiratory: Reports: no symptoms Gastrointestinal/Abdominal: Reports: no symptoms Genitourinary: Reports: hematuria Neurologic/Psychiatric: Reports: weakness Endocrine: Reports: no symptoms Hematologic/Lymphatic: Reports: no symptoms Allergies: Coded Allergies: No Known Allergies (Unverified , 12/20/18) Subjective Patient is in bed and denies pain at this time. Taking the Tylenol as needed. No new complaints. Objective Last 24 Hour Vital Signs Date Time Temp Pulse Resp B/P (MAP) Pulse Ox O2 Delivery O2 Flow Rate FiO2 01/01/19 06:09 144/61 01/01/19 04:00 98.4 62 20 123/50 (74) 98 01/01/19 01:44 154/62 01/01/19 01:18 94 18 97 Nasal Cannula 2.0 01/01/19 01:12 91 Nasal Cannula 2.0 28 01/01/19 01:11 28 01/01/19 01:11 89 18 91 Nasal Cannula 2.0 28 01/01/19 01:10 89 18 91 Nasal Cannula 2.0 28 01/01/19 00:00 97.8 73 20 150/60 (90) 100 12/31/18 21:10 169/63 12/31/18 21:09 75 169/63 12/31/18 21:00 Nasal Cannula 2.0 12/31/18 20:00 99.1 75 22 169/63 (98) 100 12/31/18 17:56 169/63 12/31/18 16:00 98.7 91 19 125/76 (92) 97 12/31/18 13:56 133/86 12/31/18 12:00 98.5 74 18 165/62 (96) 97 12/31/18 10:00 117/72 12/31/18 09:00 Nasal Cannula 2.0 12/31/18 08:59 72 150/56 12/31/18 08:59 150/56 12/31/18 08:59 72 150/56 Intake and Output 12/31/18 01/01/19 19:00 07:00 Intake Total 100 ml 1250 ml Output Total 1750 ml 4200 ml Balance -1650 ml -2950 ml Intake Oral 500 ml IV Total 100 ml 750 ml Output Urine Total 1750 ml 4200 ml Laboratory Tests 01/01/19 05:40: White Blood Count 5.4, Red Blood Count 2.79L, Hemoglobin 8.8L, Hematocrit 28.2L , Mean Corpuscular Volume 101H, Mean Corpuscular Hemoglobin 31.6H, Mean Corpuscular Hemoglobin Concent 31.4L, Red Cell Distribution Width 13.4, Platelet Count 92L, Mean Platelet Volume 9.9, Neutrophils (%) (Auto) , Lymphocytes (%) (Auto) , Monocytes (%) (Auto) , Eosinophils (%) (Auto) , Basophils (%) (Auto) , Neutrophils % (Manual) [Pending], Lymphocytes % (Manual) [Pending], Platelet Estimate [Pending], Platelet Morphology [Pending], Sodium Level 142, Potassium Level 4.8, Chloride Level 110H, Carbon Dioxide Level 24, Anion Gap 8, Blood Urea Nitrogen 35H, Creatinine 1.7H, Estimat Glomerular Filtration Rate , Glucose Level 151H, Uric Acid 8.2H, Calcium Level 8.2L, Phosphorus Level 2.9, Magnesium Level 2.1, Total Bilirubin 0.3, Aspartate Amino Transf (AST/SGOT) 18, Alanine Aminotransferase (ALT/SGPT) 22, Alkaline Phosphatase 47, Total Protein 5.6L, Albumin 2.7L, Globulin 2.9, Albumin/ Globulin Ratio 0.9L Height (Feet): 6 Height (Inches): 0.00 Weight (Pounds): 178 General Appearance: no apparent distress, alert EENT: PERRL/EOMI, normal ENT inspection Neck: non-tender, normal alignment Cardiovascular: normal rate, regular rhythm Respiratory/Chest: decreased breath sounds Abdomen: other - obese Edema: trace edema Neurologic: alert, oriented x 3 Skin: warm/dry Jewel Frank Jan 01, 2019 08:53
--- NOTE | 2019-01-01 08:55 | Nephrology Progress Note ---
Assessment/Plan Problem List: (1) Acute renal injury Assessment: Cr rising again (2) Gross hematuria (3) Bladder mass (4) Hypertension (5) Diabetes Assessment ANGELA - HTN OOC - Hematuria- Likely UTI Dehydration DM CAD Plan start 05/17 NS 100 cc hour check labs in am had cysto 12/28 Uro note: Tolerated bladder tumor resection well. Unfortunately greater part of the bladder is involved and essentially replaced all normal bladder with tumor. I can not resect all the tumors. Patient needs a radical cystectomy (removal of bladder) or radiation/chemotherapy at higher level of care. 1. recommend transfer to higher level of care for cystectomy 2. continue richardson, keep irrigation to maintain light pink urine. Rocephin Slow hydrate 2D echo Keep BP and BS in check per orders due cysto as clear by cardio Multiple masslike lesions within the bladder. Further evaluation with cystoscopy is recommended to evaluate for possible neoplasm. Multiple parapelvic renal cysts Subjective ROS Limited/Unobtainable: No Constitutional: Reports: malaise Objective Objective Last 24 Hour Vital Signs Date Time Temp Pulse Resp B/P (MAP) Pulse Ox O2 Delivery O2 Flow Rate FiO2 01/01/19 06:09 144/61 01/01/19 04:00 98.4 62 20 123/50 (74) 98 01/01/19 01:44 154/62 01/01/19 01:18 94 18 97 Nasal Cannula 2.0 28 01/01/19 01:12 91 Nasal Cannula 2.0 28 01/01/19 01:11 28 01/01/19 01:11 89 18 91 Nasal Cannula 2.0 28 01/01/19 01:10 89 18 91 Nasal Cannula 2.0 28 01/01/19 00:00 97.8 73 20 150/60 (90) 100 12/31/18 21:10 169/63 12/31/18 21:09 75 169/63 12/31/18 21:00 Nasal Cannula 2.0 12/31/18 20:00 99.1 75 22 169/63 (98) 100 12/31/18 17:56 169/63 12/31/18 16:00 98.7 91 19 125/76 (92) 97 12/31/18 13:56 133/86 12/31/18 12:00 98.5 74 18 165/62 (96) 97 12/31/18 10:00 117/72 12/31/18 09:00 Nasal Cannula 2.0 12/31/18 08:59 72 150/56 12/31/18 08:59 150/56 12/31/18 08:59 72 150/56 Intake and Output 12/31/18 01/01/19 19:00 07:00 Intake Total 100 ml 1250 ml Output Total 1750 ml 4200 ml Balance -1650 ml -2950 ml Intake Oral 500 ml IV Total 100 ml 750 ml Output Urine Total 1750 ml 4200 ml Laboratory Tests 01/01/19 05:40: White Blood Count 5.4, Red Blood Count 2.79L, Hemoglobin 8.8L, Hematocrit 28.2L , Mean Corpuscular Volume 101H, Mean Corpuscular Hemoglobin 31.6H, Mean Corpuscular Hemoglobin Concent 31.4L, Red Cell Distribution Width 13.4, Platelet Count 92L, Mean Platelet Volume 9.9, Neutrophils (%) (Auto) , Lymphocytes (%) (Auto) , Monocytes (%) (Auto) , Eosinophils (%) (Auto) , Basophils (%) (Auto) , Neutrophils % (Manual) [Pending], Lymphocytes % (Manual) [Pending], Platelet Estimate [Pending], Platelet Morphology [Pending], Sodium Level 142, Potassium Level 4.8, Chloride Level 110H, Carbon Dioxide Level 24, Anion Gap 8, Blood Urea Nitrogen 35H, Creatinine 1.7H, Estimat Glomerular Filtration Rate , Glucose Level 151H, Uric Acid 8.2H, Calcium Level 8.2L, Phosphorus Level 2.9, Magnesium Level 2.1, Total Bilirubin 0.3, Aspartate Amino Transf (AST/SGOT) 18, Alanine Aminotransferase (ALT/SGPT) 22, Alkaline Phosphatase 47, Total Protein 5.6L, Albumin 2.7L, Globulin 2.9, Albumin/ Globulin Ratio 0.9L Height (Feet): 6 Height (Inches): 0.00 Weight (Pounds): 178 General Appearance: no apparent distress Cardiovascular: normal rate Respiratory/Chest: decreased breath sounds Abdomen: soft Objective no change Russell Sofia MD Jan 01, 2019 08:55
[2019-01-01] MEDS: Heparin 5000 units/ml inj SUBQ SCH ×2 (09:00→21:00)
[2019-01-01] MEDS: Docusate 100mg cap ORAL SCH ×3 (09:00→18:00)
[2019-01-01] MEDS: Bisacodyl EC 5mg tab ORAL SCH (09:00)
[2019-01-01] MEDS: Imdur 30mg tab ORAL SCH (09:27)
[2019-01-01] MEDS: Tamsulosin 0.4mg cap ORAL SCH ×2 (09:27→18:11)
[2019-01-01] MEDS: Carvedilol 25mg Tab ORAL SCH ×2 (09:28→21:24)
--- NOTE | 2019-01-01 11:26 | Pulmonology Progress Note ---
Assessment/Plan Problems: (1) Invasive carcinoma of urinary bladder (2) S/P TURP (3) ATN (acute tubular necrosis) (4) Gross hematuria Assessment & Plan: better (5) Hypertension (6) CAD (coronary artery disease) (7) Hematuria Assessment/Plan h/h stable no new complains f/u by iv hydration doing better dc planning Subjective ROS Limited/Unobtainable: No Constitutional: Reports: no symptoms HEENT: Repors: no symptoms Allergies: Coded Allergies: No Known Allergies (Unverified , 12/20/18) Objective Last 24 Hour Vital Signs Date Time Temp Pulse Resp B/P (MAP) Pulse Ox O2 Delivery O2 Flow Rate FiO2 01/01/19 09:28 158/67 01/01/19 09:28 82 158/67 01/01/19 09:28 82 158/67 01/01/19 09:27 158/67 01/01/19 09:00 Nasal Cannula 2.0 01/01/19 08:00 97.8 82 18 158/67 (97) 95 01/01/19 07:20 94 Nasal Cannula 2.0 01/01/19 06:09 144/61 01/01/19 04:00 98.4 62 20 123/50 (74) 98 01/01/19 01:44 154/62 01/01/19 01:18 94 18 97 Nasal Cannula 2.0 01/01/19 01:12 91 Nasal Cannula 2.0 01/01/19 01:11 28 01/01/19 01:11 89 18 91 Nasal Cannula 2.0 01/01/19 01:10 89 18 91 Nasal Cannula 2.0 01/01/19 00:00 97.8 73 20 150/60 (90) 100 12/31/18 21:10 169/63 12/31/18 21:09 75 169/63 12/31/18 21:00 Nasal Cannula 2.0 12/31/18 20:00 99.1 75 22 169/63 (98) 100 12/31/18 17:56 169/63 12/31/18 16:00 98.7 91 19 125/76 (92) 97 12/31/18 13:56 133/86 12/31/18 12:00 98.5 74 18 165/62 (96) 97 Intake and Output 12/31/18 01/01/19 19:00 07:00 Intake Total 100 ml 1250 ml Output Total 1750 ml 4200 ml Balance -1650 ml -2950 ml Intake Oral 500 ml IV Total 100 ml 750 ml Output Urine Total 1750 ml 4200 ml General Appearance: WD/WN HEENT: normocephalic, atraumatic Respiratory/Chest: chest wall non-tender, lungs clear Cardiovascular: normal rate, regular rhythm Abdomen: soft, non tender, no organomegaly Extremities: no cyanosis Skin: no rash Laboratory Tests 01/01/19 05:40: White Blood Count 5.4, Red Blood Count 2.79L, Hemoglobin 8.8L, Hematocrit 28.2L , Mean Corpuscular Volume 101H, Mean Corpuscular Hemoglobin 31.6H, Mean Corpuscular Hemoglobin Concent 31.4L, Red Cell Distribution Width 13.4, Platelet Count 92L, Mean Platelet Volume 9.9, Neutrophils (%) (Auto) , Lymphocytes (%) (Auto) , Monocytes (%) (Auto) , Eosinophils (%) (Auto) , Basophils (%) (Auto) , Differential Total Cells Counted 100, Neutrophils % ( Manual) 65, Lymphocytes % (Manual) 22, Monocytes % (Manual) 12H, Eosinophils % ( Manual) 1, Basophils % (Manual) 0, Band Neutrophils 0, Platelet Estimate DecreasedL, Platelet Morphology Normal, Hypochromasia 1+, Macrocytosis 1+, Sodium Level 142, Potassium Level 4.8, Chloride Level 110H, Carbon Dioxide Level 24, Anion Gap 8, Blood Urea Nitrogen 35H, Creatinine 1.7H, Estimat Glomerular Filtration Rate , Glucose Level 151H, Uric Acid 8.2H, Calcium Level 8.2L, Phosphorus Level 2.9, Magnesium Level 2.1, Total Bilirubin 0.3, Aspartate Amino Transf (AST/SGOT) 18, Alanine Aminotransferase (ALT/SGPT) 22, Alkaline Phosphatase 47, Total Protein 5.6L, Albumin 2.7L, Globulin 2.9, Albumin/ Globulin Ratio 0.9L Current Medications Medications (Trade) Dose Ordered Sig/Sallie Route PRN Reason Start Time Stop Time Status Last Admin Dose Admin Acetaminophen (Tylenol) 650 mg Q4H PRN ORAL Mild Pain/Temp > 100.5 12/31/18 14:00 01/19/19 13:59 01/01/19 09:35 Albuterol/ Ipratropium (Albuterol/ Ipratropium) 3 ml Q6HRT PRN HHN Shortness of Breath 01/01/19 01:30 01/06/19 00:59 Amlodipine Besylate (Norvasc) 10 mg DAILY ORAL 12/21/18 09:00 01/20/19 08:59 01/01/19 09:28 Atorvastatin Calcium (Lipitor) 20 mg BEDTIME ORAL 12/21/18 21:00 01/20/19 20:59 12/31/18 21:09 Bisacodyl (Dulcolax) 5 mg DAILY ORAL 12/21/18 09:00 01/20/19 08:59 12/31/18 08:58 Carvedilol (Coreg) 25 mg EVERY 12 HOURS ORAL 12/27/18 09:00 01/20/19 08:59 01/01/19 09:28 Clonidine HCl (Catapres tab) 0.2 mg Q8H ORAL 12/28/18 10:00 01/21/19 09:59 01/01/19 09:28 Dextrose (Dextrose 50%) 25 ml Q30M PRN IV Hypoglycemia 12/30/18 13:00 01/29/19 12:59 Dextrose (Dextrose 50%) 50 ml Q30M PRN IV Hypoglycemia 12/30/18 13:00 01/29/19 12:59 Diphenhydramine HCl (Benadryl) 25 mg Q6H PRN ORAL Itching/Pruritis 12/20/18 20:30 01/19/19 20:29 01/01/19 01:44 Docusate Sodium (Colace) 100 mg THREE TIMES A DAY ORAL 12/21/18 18:00 01/20/19 17:59 12/31/18 08:59 Folic Acid (Folate) 3 mg DAILY ORAL 12/23/18 10:00 01/22/19 09:59 01/01/19 09:27 Heparin Sodium (Porcine) (Heparin 5000 units/ml) 5,000 units EVERY 12 HOURS SUBQ 12/21/18 09:00 01/19/19 21:46 12/29/18 09:06 Hydralazine HCl (Apresoline) 100 mg Q8HR ORAL 12/27/18 14:00 01/20/19 08:59 01/01/19 06:09 Insulin Aspart (NovoLOG) BEFORE MEALS AND HS SUBQ 12/30/18 16:30 01/29/19 16:29 01/01/19 06:10 Isosorbide Mononitrate (Imdur) 60 mg DAILY ORAL 12/21/18 11:45 01/20/19 11:44 01/01/19 09:27 Minoxidil (Loniten) 2.5 mg Q4H PRN ORAL bp over 165 syst 12/25/18 12:00 01/24/19 11:59 12/27/18 13:00 Nitroglycerin (Ntg) 0.4 mg Q5M X 3 DOSES PRN SL Prn Chest Pain 12/20/18 20:30 01/19/19 20:29 Ondansetron HCl (Zofran) 4 mg Q6H PRN IVP Nausea & Vomiting 12/20/18 20:30 01/19/19 20:29 Pantoprazole (Protonix) 40 mg EVERY 12 HOURS ORAL 12/21/18 21:00 01/20/19 20:59 01/01/19 09:28 Sodium Chloride 1,000 ml @ 100 mls/hr Q10H IV 12/30/18 10:30 01/29/19 10:29 01/01/19 04:41 Tamsulosin HCl (Flomax) 0.4 mg BID ORAL 12/21/18 11:45 01/20/19 11:44 01/01/19 09:27 Adam Moyer MD Jan 01, 2019 11:26
[2019-01-01 12:00] VITALS: BP 161/82
--- NOTE | 2019-01-01 12:00 | NUR ---
NURSE NOTES: Paged Dr. Sofia about swelling of left upper extremity. Awaiting response. Left arm elevated on pillow, skin is intact.
[2019-01-01] MEDS: Albuterol/Ipratropium 3ml neb HHN PRN (12:34)
--- NOTE | 2019-01-01 13:30 | NUR ---
NURSE NOTES: Patient's penis and scrotum appear edematous. Urologist paged. Awaiting response. CBI irrigating as ordered. Decreased flow of irrigation, still draining well. Red urine output.
--- NOTE | 2019-01-01 14:45 | NUR ---
NURSE NOTES: Superficial clot in cephalic vein reported to Dr. Sofia. Placed heat pack on left ac as ordered.
--- NOTE | 2019-01-01 14:58 | Hematology/Onc Progress Note ---
Assessment/Plan Assessment/Plan Assessment and Recs: # Bladder cancer requires resection v chemo/xrt -- presented with multi masses CT shows Scattered eccentric mural thickening/masses in the urinary bladder wall , correlating with findings on recent ultrasound. No significant perivesical stranding. Recommend further evaluation with cystoscopy. --> urology consulted, appreciate input --> Uro note: Tolerated bladder tumor resection well. Unfortunately greater part of the bladder is involved and essentially replaced all normal bladder with tumor. I can not resect all the tumors. Patient needs a radical cystectomy (removal of bladder) or radiation/chemotherapy at higher level of care. --> recommend transfer to higher level of care for cystectomy --> dw counter caser and if doesn't get transfered, set up for chemo/radiation as outpatient --> path does confirm malignancy --> CBI # Thrombocytopenia - potential causes multifactorial, evaluate liver and viral etiologies to begin, also could be related to underlying medications patient has received. --> Hep panel and HIV -> NEGATIVE --> US abd showed bladder masses-->ct reviewed as well --> Peripheral smear ordered to evaluate for blasts /schistocytes --> none noted --> abx and other meds have been reviewed --> ok for ppx if plt >50k w/ either heparin or lovenox --> trend plt 103-->92k-->90k->94k->102k-->92 # Anemia of iron deficiency likely due to hematuria --> iv iron x 5 days low ferritin, completed --> likely due to hematuria --> have started on ivf and consider uro prn cysto --> hgb goal >7 --> cont po folic acid # Acute renal injury --> cr has improved 2.3-->1.8-->2.3->1.6-->1.4-->1.4-->1.7 --> per renal recs --> volume expansion # HTN --> cards is following, appreciate recs # Hematuria # UTI (urinary tract infection) # Dehydration The timing of this note does not necessarily reflect the time of the patient was seen. GREATLY APPRECIATE CONSULTATION. Subjective Genitourinary: Reports: hematuria Hematologic/Lymphatic: Reports: anemia Allergies: Coded Allergies: No Known Allergies (Unverified , 12/20/18) All Systems: reviewed and negative except above Subjective 12/22: no events noted, no bleeding, ct ordered for the us findings with multiple masses in bladder, cysto recommended 12/24: no events, no bleeding, no night sweats noted, no chills reported 12/25: no fevers, no chills, no major changes, cysto for /12/26: awaiting further uro recs, feeling better, no f/c, prbc prn 12/27: no events, no bleeding, no night sweats, cysto pending 12/28: tolerated bladder tumor resection well, hgb remains >10 12/29: no events, pending potential tx, no bleeding 01/01: no overnight events, on cbi, h/h stable Objective Objective Current Medications Medications (Trade) Dose Ordered Sig/Sallie Route PRN Reason Start Time Stop Time Status Last Admin Dose Admin Acetaminophen (Tylenol) 650 mg Q4H PRN ORAL Mild Pain/Temp > 100.5 12/31/18 14:00 01/19/19 13:59 01/01/19 14:21 Albuterol/ Ipratropium (Albuterol/ Ipratropium) 3 ml Q6HRT PRN HHN Shortness of Breath 01/01/19 01:30 01/06/19 00:59 01/01/19 12:34 Amlodipine Besylate (Norvasc) 10 mg DAILY ORAL 12/21/18 09:00 01/20/19 08:59 01/01/19 09:28 Atorvastatin Calcium (Lipitor) 20 mg BEDTIME ORAL 12/21/18 21:00 01/20/19 20:59 12/31/18 21:09 Bisacodyl (Dulcolax) 5 mg DAILY ORAL 12/21/18 09:00 01/20/19 08:59 12/31/18 08:58 Carvedilol (Coreg) 25 mg EVERY 12 HOURS ORAL 12/27/18 09:00 01/20/19 08:59 01/01/19 09:28 Clonidine HCl (Catapres tab) 0.2 mg Q8H ORAL 12/28/18 10:00 01/21/19 09:59 01/01/19 09:28 Dextrose (Dextrose 50%) 25 ml Q30M PRN IV Hypoglycemia 12/30/18 13:00 01/29/19 12:59 Dextrose (Dextrose 50%) 50 ml Q30M PRN IV Hypoglycemia 12/30/18 13:00 01/29/19 12:59 Diphenhydramine HCl (Benadryl) 25 mg Q6H PRN ORAL Itching/Pruritis 12/20/18 20:30 01/19/19 20:29 01/01/19 01:44 Docusate Sodium (Colace) 100 mg THREE TIMES A DAY ORAL 12/21/18 18:00 01/20/19 17:59 12/31/18 08:59 Folic Acid (Folate) 3 mg DAILY ORAL 12/23/18 10:00 01/22/19 09:59 01/01/19 09:27 Heparin Sodium (Porcine) (Heparin 5000 units/ml) 5,000 units EVERY 12 HOURS SUBQ 12/21/18 09:00 01/19/19 21:46 12/29/18 09:06 Hydralazine HCl (Apresoline) 100 mg Q8HR ORAL 12/27/18 14:00 01/20/19 08:59 01/01/19 14:20 Insulin Aspart (NovoLOG) BEFORE MEALS AND HS SUBQ 12/30/18 16:30 01/29/19 16:29 01/01/19 11:30 Isosorbide Mononitrate (Imdur) 60 mg DAILY ORAL 12/21/18 11:45 01/20/19 11:44 01/01/19 09:27 Minoxidil (Loniten) 2.5 mg Q4H PRN ORAL bp over 165 syst 12/25/18 12:00 01/24/19 11:59 12/27/18 13:00 Nitroglycerin (Ntg) 0.4 mg Q5M X 3 DOSES PRN SL Prn Chest Pain 12/20/18 20:30 01/19/19 20:29 Ondansetron HCl (Zofran) 4 mg Q6H PRN IVP Nausea & Vomiting 12/20/18 20:30 01/19/19 20:29 Pantoprazole (Protonix) 40 mg EVERY 12 HOURS ORAL 12/21/18 21:00 01/20/19 20:59 01/01/19 09:28 Tamsulosin HCl (Flomax) 0.4 mg BID ORAL 12/21/18 11:45 01/20/19 11:44 01/01/19 09:27 Last 24 Hour Vital Signs Date Time Temp Pulse Resp B/P (MAP) Pulse Ox O2 Delivery O2 Flow Rate FiO2 01/01/19 14:20 157/72 01/01/19 12:41 70 20 99 Nasal Cannula 2.0 28 01/01/19 12:30 66 18 96 Nasal Cannula 2.0 28 01/01/19 12:00 97.7 70 20 161/82 (108) 99 01/01/19 09:28 158/67 01/01/19 09:28 82 158/67 01/01/19 09:28 82 158/67 01/01/19 09:27 158/67 01/01/19 09:00 Nasal Cannula 2.0 01/01/19 08:00 97.8 82 18 158/67 (97) 95 01/01/19 07:20 94 Nasal Cannula 2.0 01/01/19 06:09 144/61 01/01/19 04:00 98.4 62 20 123/50 (74) 98 01/01/19 01:44 154/62 01/01/19 01:18 94 18 97 Nasal Cannula 2.0 01/01/19 01:12 91 Nasal Cannula 2.0 01/01/19 01:11 28 01/01/19 01:11 89 18 91 Nasal Cannula 2.0 01/01/19 01:10 89 18 91 Nasal Cannula 2.0 28 01/01/19 00:00 97.8 73 20 150/60 (90) 100 12/31/18 21:10 169/63 12/31/18 21:09 75 169/63 12/31/18 21:00 Nasal Cannula 2.0 12/31/18 20:00 99.1 75 22 169/63 (98) 100 12/31/18 17:56 169/63 12/31/18 16:00 98.7 91 19 125/76 (92) 97 12/31/18 13:56 133/86 12/31/18 12:00 98.5 74 18 165/62 (96) 97 12/31/18 10:00 117/72 12/31/18 09:00 Nasal Cannula 2.0 12/31/18 08:59 72 150/56 12/31/18 08:59 150/56 12/31/18 08:59 72 150/56 12/31/18 08:00 98.5 72 18 150/56 (87) 99 12/31/18 06:04 154/63 12/31/18 04:00 97.5 67 20 154/63 (93) 95 12/31/18 02:00 128/67 12/30/18 23:47 98.6 60 18 131/59 (83) 99 12/30/18 21:13 137/55 12/30/18 21:12 66 137/55 12/30/18 21:00 Nasal Cannula 2.0 12/30/18 20:00 98.5 66 18 137/55 (82) 98 12/30/18 17:31 154/58 12/30/18 16:00 97.8 60 19 154/58 (90) 98 Intake and Output 12/31/18 01/01/19 19:00 07:00 Intake Total 100 ml 1250 ml Output Total 1750 ml 4200 ml Balance -1650 ml -2950 ml Intake Oral 500 ml IV Total 100 ml 750 ml Output Urine Total 1750 ml 4200 ml Labs Test 12/30/18 05:20 01/01/19 05:40 White Blood Count 7.8 K/UL (4.8-10.8) 5.4 K/UL (4.8-10.8) Red Blood Count 2.94 M/UL (4.70-6.10) 2.79 M/UL (4.70-6.10) Hemoglobin 9.3 G/DL (14.2-18.0) 8.8 G/DL (14.2-18.0) Hematocrit 29.3 % (42.0-52.0) 28.2 % (42.0-52.0) Mean Corpuscular Volume 100 FL (80-99) 101 FL (80-99) Mean Corpuscular Hemoglobin 31.6 PG (27.0-31.0) 31.6 PG (27.0-31.0) Mean Corpuscular Hemoglobin Concent 31.7 G/DL (32.0-36.0) 31.4 G/DL (32.0-36.0) Red Cell Distribution Width 13.9 % (11.6-14.8) 13.4 % (11.6-14.8) Platelet Count 85 K/UL (150-450) 92 K/UL (150-450) Mean Platelet Volume 10.6 FL (6.5-10.1) 9.9 FL (6.5-10.1) Neutrophils (%) (Auto) % (45.0-75.0) % (45.0-75.0) Lymphocytes (%) (Auto) % (20.0-45.0) % (20.0-45.0) Monocytes (%) (Auto) % (1.0-10.0) % (1.0-10.0) Eosinophils (%) (Auto) % (0.0-3.0) % (0.0-3.0) Basophils (%) (Auto) % (0.0-2.0) % (0.0-2.0) Differential Total Cells Counted 100 100 Neutrophils % (Manual) 70 % (45-75) 65 % (45-75) Lymphocytes % (Manual) 20 % (20-45) 22 % (20-45) Monocytes % (Manual) 10 % (1-10) 12 % (1-10) Eosinophils % (Manual) 0 % (0-3) 1 % (0-3) Basophils % (Manual) 0 % (0-2) 0 % (0-2) Band Neutrophils 0 % (0-8) 0 % (0-8) Platelet Estimate Decreased Decreased Platelet Morphology Normal Normal Polychromasia 1+ Hypochromasia 1+ 1+ Macrocytosis 1+ 1+ Sodium Level 144 MMOL/L (136-145) 142 MMOL/L (136-145) Potassium Level 4.9 MMOL/L (3.5-5.1) 4.8 MMOL/L (3.5-5.1) Chloride Level 113 MMOL/L (98-107) 110 MMOL/L (98-107) Carbon Dioxide Level 25 MMOL/L (21-32) 24 MMOL/L (21-32) Anion Gap 6 mmol/L (5-15) 8 mmol/L (5-15) Blood Urea Nitrogen 39 mg/dL (7-18) 35 mg/dL (7-18) Creatinine 2.1 MG/DL (0.55-1.30) 1.7 MG/DL (0.55-1.30) Estimat Glomerular Filtration Rate mL/min (>60) mL/min (>60) Glucose Level 190 MG/DL (74-106) 151 MG/DL (74-106) Calcium Level 7.9 MG/DL (8.5-10.1) 8.2 MG/DL (8.5-10.1) Uric Acid 8.2 MG/DL (2.6-7.2) Phosphorus Level 2.9 MG/DL (2.5-4.9) Magnesium Level 2.1 MG/DL (1.8-2.4) Total Bilirubin 0.3 MG/DL (0.2-1.0) Aspartate Amino Transf (AST/SGOT) 18 U/L (15-37) Alanine Aminotransferase (ALT/SGPT) 22 U/L (12-78) Alkaline Phosphatase 47 U/L (46-116) Total Protein 5.6 G/DL (6.4-8.2) Albumin 2.7 G/DL (3.4-5.0) Globulin 2.9 g/dL Albumin/Globulin Ratio 0.9 (1.0-2.7) Height (Feet): 6 Height (Inches): 0.00 Weight (Pounds): 178 Objective Physical Exam: Vitals: reviewed General Appearance: NAD HEENT: normocephalic, atraumatic Neck: non-tender, normal alignment Respiratory/Chest: normal breath sounds bilaterally Cardiovascular/Chest: normal peripheral pulses, normal rate Abdomen: normal bowel sounds, soft, nontender Extremities: normal range of motion + clots noted in urinal, CBI+ Skin: no rash Marcelo Mcallister MD Jan 01, 2019 14:58
[2019-01-01 16:00] VITALS: BP 163/56
--- NOTE | 2019-01-01 16:23 | Cardiac Electrophysiology PN ---
Assessment/Plan Assessment/Plan 1. Accelerated hypertension with blood pressure of around 200. On clonidine 0.2 q8, Norvasc 10 daily, Coreg 25 bid, Imdur 60 daily and hydralazine 100 tid. 2. History of CAD. Echo Nl EF. No CP and No acute ECG changes 3. Hyperlipidemia on Lipitor. 4. Renal failure. Further evaluation by Nephrology. 5. Hematuria. Tolerated bladder tumor resection well. Unfortunately greater part of the bladder is involved and all tumor could not be removed. Patient needs a radical cystectomy or radiation/chemotherapy at higher level of care. Awaiting transfer to higher level of care for cystectomy FU Urology DW RN Subjective Subjective Still has active hematuria and having bladder irrigation. No CP Objective Last 24 Hour Vital Signs Date Time Temp Pulse Resp B/P (MAP) Pulse Ox O2 Delivery O2 Flow Rate FiO2 01/01/19 14:20 157/72 01/01/19 12:41 70 20 99 Nasal Cannula 2.0 01/01/19 12:30 66 18 96 Nasal Cannula 2.0 01/01/19 12:00 97.7 70 20 161/82 (108) 99 01/01/19 09:28 158/67 01/01/19 09:28 82 158/67 01/01/19 09:28 82 158/67 01/01/19 09:27 158/67 01/01/19 09:00 Nasal Cannula 2.0 01/01/19 08:00 97.8 82 18 158/67 (97) 95 01/01/19 07:20 94 Nasal Cannula 2.0 01/01/19 06:09 144/61 01/01/19 04:00 98.4 62 20 123/50 (74) 98 01/01/19 01:44 154/62 01/01/19 01:18 94 18 97 Nasal Cannula 2.0 01/01/19 01:12 91 Nasal Cannula 2.0 01/01/19 01:11 28 01/01/19 01:11 89 18 91 Nasal Cannula 2.0 01/01/19 01:10 89 18 91 Nasal Cannula 2.0 01/01/19 00:00 97.8 73 20 150/60 (90) 100 12/31/18 21:10 169/63 12/31/18 21:09 75 169/63 12/31/18 21:00 Nasal Cannula 2.0 12/31/18 20:00 99.1 75 22 169/63 (98) 100 12/31/18 17:56 169/63 Intake and Output 12/31/18 01/01/19 19:00 07:00 Intake Total 100 ml 1250 ml Output Total 1750 ml 4200 ml Balance -1650 ml -2950 ml Intake Oral 500 ml IV Total 100 ml 750 ml Output Urine Total 1750 ml 4200 ml Laboratory Tests Test 01/01/19 05:40 White Blood Count 5.4 K/UL (4.8-10.8) Red Blood Count 2.79 M/UL (4.70-6.10) L Hemoglobin 8.8 G/DL (14.2-18.0) L Hematocrit 28.2 % (42.0-52.0) L Mean Corpuscular Volume 101 FL (80-99) H Mean Corpuscular Hemoglobin 31.6 PG (27.0-31.0) H Mean Corpuscular Hemoglobin Concent 31.4 G/DL (32.0-36.0) L Red Cell Distribution Width 13.4 % (11.6-14.8) Platelet Count 92 K/UL (150-450) L Mean Platelet Volume 9.9 FL (6.5-10.1) Neutrophils (%) (Auto) % (45.0-75.0) Lymphocytes (%) (Auto) % (20.0-45.0) Monocytes (%) (Auto) % (1.0-10.0) Eosinophils (%) (Auto) % (0.0-3.0) Basophils (%) (Auto) % (0.0-2.0) Differential Total Cells Counted 100 Neutrophils % (Manual) 65 % (45-75) Lymphocytes % (Manual) 22 % (20-45) Monocytes % (Manual) 12 % (1-10) H Eosinophils % (Manual) 1 % (0-3) Basophils % (Manual) 0 % (0-2) Band Neutrophils 0 % (0-8) Platelet Estimate Decreased L Platelet Morphology Normal Hypochromasia 1+ Macrocytosis 1+ Sodium Level 142 MMOL/L (136-145) Potassium Level 4.8 MMOL/L (3.5-5.1) Chloride Level 110 MMOL/L (98-107) H Carbon Dioxide Level 24 MMOL/L (21-32) Anion Gap 8 mmol/L (5-15) Blood Urea Nitrogen 35 mg/dL (7-18) H Creatinine 1.7 MG/DL (0.55-1.30) H Estimat Glomerular Filtration Rate mL/min (>60) Glucose Level 151 MG/DL (74-106) H Uric Acid 8.2 MG/DL (2.6-7.2) H Calcium Level 8.2 MG/DL (8.5-10.1) L Phosphorus Level 2.9 MG/DL (2.5-4.9) Magnesium Level 2.1 MG/DL (1.8-2.4) Total Bilirubin 0.3 MG/DL (0.2-1.0) Aspartate Amino Transf (AST/SGOT) 18 U/L (15-37) Alanine Aminotransferase (ALT/SGPT) 22 U/L (12-78) Alkaline Phosphatase 47 U/L (46-116) Total Protein 5.6 G/DL (6.4-8.2) L Albumin 2.7 G/DL (3.4-5.0) L Globulin 2.9 g/dL Albumin/Globulin Ratio 0.9 (1.0-2.7) L Objective HEAD AND NECK: Showed no JVD. LUNGS: Clear. CARDIOVASCULAR: Regular S1 and S2 with no gallop or murmur. ABDOMEN: Soft. EXTREMITIES: A 1+ pitting edema. Kd Fish MD Jan 01, 2019 16:23
--- NOTE | 2019-01-01 19:30 | NUR ---
HAND-OFF: Report given to Tiffany GUTIERREZ. Patient is stable.
[2019-01-01 20:00] VITALS: BP 149/106
[2019-01-01] MEDS: Atorvastatin 20mg tab ORAL SCH (21:24)
--- NOTE | 2019-01-01 21:48 | General Progress Note ---
Assessment/Plan Problem List: (1) UTI (urinary tract infection) ICD Codes: N39.0 - Urinary tract infection, site not specified SNOMED: 62426558, 5104427 (2) CAD (coronary artery disease) ICD Codes: I25.10 - Atherosclerotic heart disease of [place] coronary artery without angina pectoris SNOMED: 83332782 (3) Hematuria ICD Codes: R31.9 - Hematuria, unspecified SNOMED: 04108597, 8215441 (4) Dehydration ICD Codes: E86.0 - Dehydration SNOMED: 06687426, 2307522 (5) ATN (acute tubular necrosis) ICD Codes: N17.0 - Acute kidney failure with tubular necrosis SNOMED: 56941490 (6) Diabetes ICD Codes: E11.9 - Type 2 diabetes mellitus without complications SNOMED: 36531688 (7) Anemia ICD Codes: D64.9 - Anemia, unspecified SNOMED: 084570233 (8) CHF (congestive heart failure) ICD Codes: I50.9 - Heart failure, unspecified SNOMED: 26544119 (9) Weak ICD Codes: R53.1 - Weakness SNOMED: 74706846 (10) HTN (hypertension) ICD Codes: I10 - Essential (primary) hypertension SNOMED: 52449692 (11) ARF (acute renal failure) ICD Codes: N17.9 - Acute kidney failure, unspecified SNOMED: 74128255 (12) Bladder mass ICD Codes: N32.89 - Other specified disorders of bladder SNOMED: 703902860 (13) Acute renal injury ICD Codes: N17.9 - Acute kidney failure, unspecified SNOMED: 38761626, 6917334 Status: progressing Assessment/Plan: htn no wheezing no acute evetns cri is stable afebrile reviewed chart and labs and meds chf Subjective ROS Limited/Unobtainable: Yes Allergies: Coded Allergies: No Known Allergies (Unverified , 12/20/18) Objective Last 24 Hour Vital Signs Date Time Temp Pulse Resp B/P (MAP) Pulse Ox O2 Delivery O2 Flow Rate FiO2 01/01/19 21:24 62 149/106 01/01/19 20:57 68 18 93 Nasal Cannula 2.0 28 01/01/19 20:00 95 Nasal Cannula 2.0 28 01/01/19 20:00 97.7 62 20 149/106 (120) 98 01/01/19 18:18 132/56 01/01/19 16:00 97.7 61 18 163/56 (91) 98 01/01/19 14:20 157/72 01/01/19 12:41 70 20 99 Nasal Cannula 2.0 01/01/19 12:30 66 18 96 Nasal Cannula 2.0 01/01/19 12:00 97.7 70 20 161/82 (108) 99 01/01/19 09:28 158/67 01/01/19 09:28 82 158/67 01/01/19 09:28 82 158/67 01/01/19 09:27 158/67 01/01/19 09:00 Nasal Cannula 2.0 01/01/19 08:00 97.8 82 18 158/67 (97) 95 01/01/19 07:20 94 Nasal Cannula 2.0 01/01/19 06:09 144/61 01/01/19 04:00 98.4 62 20 123/50 (74) 98 01/01/19 01:44 154/62 01/01/19 01:18 94 18 97 Nasal Cannula 2.0 01/01/19 01:12 91 Nasal Cannula 2.0 01/01/19 01:11 28 01/01/19 01:11 89 18 91 Nasal Cannula 2.0 01/01/19 01:10 89 18 91 Nasal Cannula 2.0 01/01/19 00:00 97.8 73 20 150/60 (90) 100 Intake and Output 12/31/18 01/01/19 19:00 07:00 Intake Total 100 ml 1250 ml Output Total 1750 ml 4200 ml Balance -1650 ml -2950 ml Intake Oral 500 ml IV Total 100 ml 750 ml Output Urine Total 1750 ml 4200 ml Laboratory Tests 01/01/19 05:40: White Blood Count 5.4, Red Blood Count 2.79L, Hemoglobin 8.8L, Hematocrit 28.2L , Mean Corpuscular Volume 101H, Mean Corpuscular Hemoglobin 31.6H, Mean Corpuscular Hemoglobin Concent 31.4L, Red Cell Distribution Width 13.4, Platelet Count 92L, Mean Platelet Volume 9.9, Neutrophils (%) (Auto) , Lymphocytes (%) (Auto) , Monocytes (%) (Auto) , Eosinophils (%) (Auto) , Basophils (%) (Auto) , Differential Total Cells Counted 100, Neutrophils % ( Manual) 65, Lymphocytes % (Manual) 22, Monocytes % (Manual) 12H, Eosinophils % ( Manual) 1, Basophils % (Manual) 0, Band Neutrophils 0, Platelet Estimate DecreasedL, Platelet Morphology Normal, Hypochromasia 1+, Macrocytosis 1+, Sodium Level 142, Potassium Level 4.8, Chloride Level 110H, Carbon Dioxide Level 24, Anion Gap 8, Blood Urea Nitrogen 35H, Creatinine 1.7H, Estimat Glomerular Filtration Rate , Glucose Level 151H, Uric Acid 8.2H, Calcium Level 8.2L, Phosphorus Level 2.9, Magnesium Level 2.1, Total Bilirubin 0.3, Aspartate Amino Transf (AST/SGOT) 18, Alanine Aminotransferase (ALT/SGPT) 22, Alkaline Phosphatase 47, Total Protein 5.6L, Albumin 2.7L, Globulin 2.9, Albumin/ Globulin Ratio 0.9L Height (Feet): 6 Height (Inches): 0.00 Weight (Pounds): 178 Cardiovascular: normal rate Respiratory/Chest: lungs clear Abdomen: soft Subhash Corona MD Jan 01, 2019 21:48
[2019-01-02] VITALS (10 sets, daily range): BP systolic 120–174; BP diastolic 52–106
[2019-01-02] MEDS: cloNIDine 0.2mg Tab ORAL SCH ×3 (01:09→17:31)
--- NOTE | 2019-01-02 03:46 | NUR ---
NURSE NOTE: Pt is A/Ox4. Pt refused to be repositioned by RN. Pt refuses at times to allow RN to correctly reposition his nasal canula. Pt refused his 2200 dose of PO hydralazine. Pt continually expresses his annoyance with disturbances with his sleep. The 0030 BP taken by the EVENT PLANNING MANAGER was 174/58 and he refused to allow the RN to re-check. Charge nurse made aware of his refusals. PO clonodine administered at approx. 0110, refused to have BP checked within an hour. Will attempt to reassess BP with 0400 AM VS. Urine from TURP remains a pinkish tinge. Bed is low, locked and the alarm is on. Call pal remains within reach of patient. Will continue to monitor.
[2019-01-02] MEDS: NovoLOG Insulin Flexpen SUBQ SCH ×4 (06:16→20:57)
[2019-01-02] MEDS: HydrALAZINE 50mg tab ORAL SCH ×3 (06:16→20:57)
--- NOTE | 2019-01-02 07:53 | NUR ---
HAND-OFF: Report given to Leonie pt is stable.
--- NOTE | 2019-01-02 08:01 | NUR ---
NURSE NOTES: AWAKE/ALERT. NO C/O PAIN. MANZANO WITH CONTINUOUS BLADDER IRRIGATION. WITH LIGHT PIMK DRAINAGE. NO CLOTS. IN NO DISTRESS. MADE COMFORTABLE IN BED.
[2019-01-02] MEDS: Bisacodyl EC 5mg tab ORAL SCH (08:52)
[2019-01-02] MEDS: Docusate 100mg cap ORAL SCH ×3 (08:52→17:31)
[2019-01-02] MEDS: Carvedilol 25mg Tab ORAL SCH ×2 (08:52→20:58)
[2019-01-02] MEDS: Tamsulosin 0.4mg cap ORAL SCH ×2 (08:53→17:31)
[2019-01-02] MEDS: Imdur 30mg tab ORAL SCH (08:53)
[2019-01-02] MEDS: Heparin 5000 units/ml inj SUBQ SCH ×2 (08:54→21:00)
[2019-01-02] MEDS: Albuterol/Ipratropium 3ml neb HHN PRN (10:43)
--- NOTE | 2019-01-02 11:39 | Nephrology Progress Note ---
Assessment/Plan Problem List: (1) Acute renal injury Assessment: Cr rising again (2) Gross hematuria (3) Bladder mass (4) Hypertension (5) Diabetes (6) Anemia Assessment: progressive Assessment ANGELA - HTN OOC - Hematuria- Likely UTI Dehydration DM CAD Plan stop IV Transfuse? check labs had cysto 12/28 Uro note: Tolerated bladder tumor resection well. Unfortunately greater part of the bladder is involved and essentially replaced all normal bladder with tumor. I can not resect all the tumors. Patient needs a radical cystectomy (removal of bladder) or radiation/chemotherapy at higher level of care. 1. recommend transfer to higher level of care for cystectomy 2. continue richardson, keep irrigation to maintain light pink urine. Rocephin Slow hydrate 2D echo Keep BP and BS in check per orders due cysto as clear by cardio Multiple masslike lesions within the bladder. Further evaluation with cystoscopy is recommended to evaluate for possible neoplasm. Multiple parapelvic renal cysts Subjective ROS Limited/Unobtainable: No Constitutional: Reports: malaise Objective Objective Last 24 Hour Vital Signs Date Time Temp Pulse Resp B/P (MAP) Pulse Ox O2 Delivery O2 Flow Rate FiO2 01/02/19 10:49 72 20 99 Nasal Cannula 2.0 28 01/02/19 10:40 68 18 96 Nasal Cannula 2.0 28 01/02/19 10:13 164/69 01/02/19 10:00 70 164/69 (100) 01/02/19 09:12 72 16 95 Room Air 2.0 28 01/02/19 09:12 95 Nasal Cannula 2.0 28 01/02/19 09:00 Nasal Cannula 2.0 01/02/19 08:53 155/59 01/02/19 08:52 69 155/57 01/02/19 08:52 69 155/57 01/02/19 08:00 97.9 69 20 155/57 (89) 97 01/02/19 06:16 120/66 01/02/19 04:00 98.5 65 19 120/66 (84) 97 01/02/19 01:09 174/58 01/02/19 00:30 97.9 63 20 174/58 (96) 97 01/01/19 21:24 62 149/106 01/01/19 21:00 Nasal Cannula 2.0 01/01/19 20:57 68 18 93 Nasal Cannula 2.0 28 01/01/19 20:00 95 Nasal Cannula 2.0 28 01/01/19 20:00 97.7 62 20 149/106 (120) 98 01/01/19 18:18 132/56 01/01/19 16:00 97.7 61 18 163/56 (91) 98 01/01/19 14:20 157/72 01/01/19 12:41 70 20 99 Nasal Cannula 2.0 28 01/01/19 12:30 66 18 96 Nasal Cannula 2.0 28 01/01/19 12:00 97.7 70 20 161/82 (108) 99 Intake and Output 01/01/19 01/02/19 19:00 07:00 Intake Total 300 ml 360 ml Output Total 2700 ml Balance 300 ml -2340 ml Intake Oral 300 ml 360 ml Output Urine Total 2700 ml Height (Feet): 6 Height (Inches): 0.00 Weight (Pounds): 178 General Appearance: no apparent distress Cardiovascular: normal rate Respiratory/Chest: decreased breath sounds Abdomen: soft, distended Genitourinary/Rectal: other - w way richardson irrigation in process Objective no change Russell Sofia MD Jan 02, 2019 11:39
--- NOTE | 2019-01-02 11:55 | Pulmonology Progress Note ---
Assessment/Plan Problems: (1) Invasive carcinoma of urinary bladder (2) S/P TURP (3) ATN (acute tubular necrosis) (4) Gross hematuria Assessment & Plan: better (5) Hypertension (6) CAD (coronary artery disease) (7) Hematuria Assessment/Plan h/h stable no new complains f/u by iv hydration doing better dc planning Subjective ROS Limited/Unobtainable: No Constitutional: Reports: no symptoms HEENT: Repors: no symptoms Allergies: Coded Allergies: No Known Allergies (Unverified , 12/20/18) Objective Last 24 Hour Vital Signs Date Time Temp Pulse Resp B/P (MAP) Pulse Ox O2 Delivery O2 Flow Rate FiO2 01/02/19 10:49 72 20 99 Nasal Cannula 2.0 28 01/02/19 10:40 68 18 96 Nasal Cannula 2.0 28 01/02/19 10:13 164/69 01/02/19 10:00 70 164/69 (100) 01/02/19 09:12 72 16 95 Room Air 2.0 28 01/02/19 09:12 95 Nasal Cannula 2.0 28 01/02/19 09:00 Nasal Cannula 2.0 01/02/19 08:53 155/59 01/02/19 08:52 69 155/57 01/02/19 08:52 69 155/57 01/02/19 08:00 97.9 69 20 155/57 (89) 97 01/02/19 06:16 120/66 01/02/19 04:00 98.5 65 19 120/66 (84) 97 01/02/19 01:09 174/58 01/02/19 00:30 97.9 63 20 174/58 (96) 97 01/01/19 21:24 62 149/106 01/01/19 21:00 Nasal Cannula 2.0 01/01/19 20:57 68 18 93 Nasal Cannula 2.0 28 01/01/19 20:00 95 Nasal Cannula 2.0 28 01/01/19 20:00 97.7 62 20 149/106 (120) 98 01/01/19 18:18 132/56 01/01/19 16:00 97.7 61 18 163/56 (91) 98 01/01/19 14:20 157/72 01/01/19 12:41 70 20 99 Nasal Cannula 2.0 28 01/01/19 12:30 66 18 96 Nasal Cannula 2.0 28 01/01/19 12:00 97.7 70 20 161/82 (108) 99 Intake and Output 01/01/19 01/02/19 19:00 07:00 Intake Total 300 ml 360 ml Output Total 2700 ml Balance 300 ml -2340 ml Intake Oral 300 ml 360 ml Output Urine Total 2700 ml General Appearance: WD/WN HEENT: normocephalic, atraumatic Respiratory/Chest: chest wall non-tender, lungs clear Cardiovascular: normal peripheral pulses, normal rate Abdomen: normal bowel sounds, soft, non tender Extremities: no cyanosis Skin: no rash Neurologic/Psychiatric: community affairs manager II-XII grossly normal Lymphatic: no neck adenopathy Current Medications Medications (Trade) Dose Ordered Sig/Sallie Route PRN Reason Start Time Stop Time Status Last Admin Dose Admin Acetaminophen (Tylenol) 650 mg Q4H PRN ORAL Mild Pain/Temp > 100.5 12/31/18 14:00 01/19/19 13:59 01/02/19 10:43 Albuterol/ Ipratropium (Albuterol/ Ipratropium) 3 ml Q6HRT PRN HHN Shortness of Breath 01/01/19 01:30 01/06/19 00:59 01/02/19 10:43 Amlodipine Besylate (Norvasc) 10 mg DAILY ORAL 12/21/18 09:00 01/20/19 08:59 01/02/19 08:52 Atorvastatin Calcium (Lipitor) 20 mg BEDTIME ORAL 12/21/18 21:00 01/20/19 20:59 01/01/19 21:24 Bisacodyl (Dulcolax) 5 mg DAILY ORAL 12/21/18 09:00 01/20/19 08:59 01/02/19 08:52 Carvedilol (Coreg) 25 mg EVERY 12 HOURS ORAL 12/27/18 09:00 01/20/19 08:59 01/02/19 08:52 Clonidine HCl (Catapres tab) 0.2 mg Q8H ORAL 12/28/18 10:00 01/21/19 09:59 01/02/19 10:13 Dextrose (Dextrose 50%) 25 ml Q30M PRN IV Hypoglycemia 12/30/18 13:00 01/29/19 12:59 Dextrose (Dextrose 50%) 50 ml Q30M PRN IV Hypoglycemia 12/30/18 13:00 01/29/19 12:59 Diphenhydramine HCl (Benadryl) 25 mg Q6H PRN ORAL Itching/Pruritis 12/20/18 20:30 01/19/19 20:29 01/01/19 01:44 Docusate Sodium (Colace) 100 mg THREE TIMES A DAY ORAL 12/21/18 18:00 01/20/19 17:59 01/02/19 08:52 Folic Acid (Folate) 3 mg DAILY ORAL 12/23/18 10:00 01/22/19 09:59 01/02/19 08:52 Heparin Sodium (Porcine) (Heparin 5000 units/ml) 5,000 units EVERY 12 HOURS SUBQ 12/21/18 09:00 01/19/19 21:46 12/29/18 09:06 Hydralazine HCl (Apresoline) 100 mg Q8HR ORAL 12/27/18 14:00 01/20/19 08:59 01/02/19 06:16 Insulin Aspart (NovoLOG) BEFORE MEALS AND HS SUBQ 12/30/18 16:30 01/29/19 16:29 01/02/19 11:45 Isosorbide Mononitrate (Imdur) 60 mg DAILY ORAL 12/21/18 11:45 01/20/19 11:44 01/02/19 08:53 Minoxidil (Loniten) 2.5 mg Q4H PRN ORAL bp over 165 syst 12/25/18 12:00 01/24/19 11:59 12/27/18 13:00 Nitroglycerin (Ntg) 0.4 mg Q5M X 3 DOSES PRN SL Prn Chest Pain 12/20/18 20:30 01/19/19 20:29 Ondansetron HCl (Zofran) 4 mg Q6H PRN IVP Nausea & Vomiting 12/20/18 20:30 01/19/19 20:29 Pantoprazole (Protonix) 40 mg EVERY 12 HOURS ORAL 12/21/18 21:00 01/20/19 20:59 01/02/19 08:52 Tamsulosin HCl (Flomax) 0.4 mg BID ORAL 12/21/18 11:45 01/20/19 11:44 01/02/19 08:53 Adam Moyer MD Jan 02, 2019 11:55
[2019-01-02] MEDS ORDERED: FLOMAX0.4 MG ORAL (11:57)
[2019-01-02] MEDS ORDERED: APRESOLINE50 MG ORAL (11:57)
[2019-01-02] MEDS ORDERED: LONITEN2.5 MG ORAL (11:57)
--- NOTE | 2019-01-02 12:30 | NUR ---
NURSE NOTES: pt's hgb 8.8, hct 28.2. blood bank called but wont release blood due hgb >8. dr lara called left message to return call.
--- NOTE | 2019-01-02 13:57 | Hematology/Onc Progress Note ---
Assessment/Plan Assessment/Plan Assessment and Recs: # Bladder cancer requires resection v chemo/xrt -- presented with multi masses CT shows Scattered eccentric mural thickening/masses in the urinary bladder wall , correlating with findings on recent ultrasound. No significant perivesical stranding. Recommend further evaluation with cystoscopy. --> urology consulted, appreciate input --> Uro note: Tolerated bladder tumor resection well. Unfortunately greater part of the bladder is involved and essentially replaced all normal bladder with tumor. I can not resect all the tumors. Patient needs a radical cystectomy (removal of bladder) or radiation/chemotherapy at higher level of care. --> recommend transfer to higher level of care for cystectomy --> dw behavioral health case manager and if doesn't get transfered, set up for chemo/radiation as outpatient --> path does confirm malignancy --> CBI # Thrombocytopenia - potential causes multifactorial, evaluate liver and viral etiologies to begin, also could be related to underlying medications patient has received. --> Hep panel and HIV -> NEGATIVE --> US abd showed bladder masses-->ct reviewed as well --> Peripheral smear ordered to evaluate for blasts /schistocytes --> none noted --> abx and other meds have been reviewed --> ok for ppx if plt >50k w/ either heparin or lovenox --> trend plt 103-->92k-->90k->94k->102k-->92 # Anemia of iron deficiency likely due to hematuria --> iv iron x 5 days low ferritin, completed --> likely due to hematuria --> have started on ivf and consider uro prn cysto --> hgb goal >7 --> cont po folic acid # Acute renal injury --> cr 2.3-->1.8-->2.3->1.6-->1.4-->1.4-->1.7 --> per renal recs --> volume expansion # HTN --> cards is following, appreciate recs # Hematuria # UTI (urinary tract infection) # Dehydration The timing of this note does not necessarily reflect the time of the patient was seen. GREATLY APPRECIATE CONSULTATION. Subjective HEENT: Denies: no symptoms, eye pain, blurred vision, tearing, double vision, ear pain, ear discharge, nose pain, nose congestion, throat pain, throat swelling, mouth pain, mouth swelling, other Cardiovascular: Denies: no symptoms, chest pain, edema, irregular heart rate, lightheadedness, palpitations, syncope, other Respiratory: Denies: no symptoms, cough, shortness of breath, SOB with excertion, SOB at rest, sputum, wheezing, other Gastrointestinal/Abdominal: Denies: no symptoms, abdomen distended, abdominal pain, black stools, tarry stools, blood in stool, constipated, diarrhea, difficulty swallowing, nausea, poor appetite, poor fluid intake, rectal bleeding , vomiting, other Genitourinary: Denies: no symptoms, burning, discharge, frequency, flank pain, hematuria, incontinence, pain, urgency, other Neurologic/Psychiatric: Denies: no symptoms, anxiety, depressed, emotional problems, headache, numbness, paresthesia, pre-existing deficit, seizure, tingling, tremors, weakness, other Endocrine: Denies: no symptoms, excessive sweating, flushing, intolerance to cold, intolerance to heat, increased hunger, increased thirst, increased urine, unexplained weight gain, unexplained weight loss, other Allergies: Coded Allergies: No Known Allergies (Unverified , 12/20/18) Subjective 12/22: no events noted, no bleeding, ct ordered for the us findings with multiple masses in bladder, cysto recommended 12/24: no events, no bleeding, no night sweats noted, no chills reported 12/25: no fevers, no chills, no major changes, cysto for /12/26: awaiting further uro recs, feeling better, no f/c, prbc prn 12/27: no events, no bleeding, no night sweats, cysto pending 12/28: tolerated bladder tumor resection well, hgb remains >10 12/29: no events, pending potential tx, no bleeding 01/01: no overnight events, on cbi, h/h stable 01/02: refusing care and refusing labs, no bleeding, less hematuria Objective Objective Current Medications Medications (Trade) Dose Ordered Sig/Sallie Route PRN Reason Start Time Stop Time Status Last Admin Dose Admin Acetaminophen (Tylenol) 650 mg Q4H PRN ORAL Mild Pain/Temp > 100.5 12/31/18 14:00 01/19/19 13:59 01/02/19 10:43 Albuterol/ Ipratropium (Albuterol/ Ipratropium) 3 ml Q6HRT PRN HHN Shortness of Breath 01/01/19 01:30 01/06/19 00:59 01/02/19 10:43 Amlodipine Besylate (Norvasc) 10 mg DAILY ORAL 12/21/18 09:00 01/20/19 08:59 01/02/19 08:52 Atorvastatin Calcium (Lipitor) 20 mg BEDTIME ORAL 12/21/18 21:00 01/20/19 20:59 01/01/19 21:24 Bisacodyl (Dulcolax) 5 mg DAILY ORAL 12/21/18 09:00 01/20/19 08:59 01/02/19 08:52 Carvedilol (Coreg) 25 mg EVERY 12 HOURS ORAL 12/27/18 09:00 01/20/19 08:59 01/02/19 08:52 Clonidine HCl (Catapres tab) 0.2 mg Q8H ORAL 12/28/18 10:00 01/21/19 09:59 01/02/19 10:13 Dextrose (Dextrose 50%) 25 ml Q30M PRN IV Hypoglycemia 12/30/18 13:00 01/29/19 12:59 Dextrose (Dextrose 50%) 50 ml Q30M PRN IV Hypoglycemia 12/30/18 13:00 01/29/19 12:59 Diphenhydramine HCl (Benadryl) 25 mg Q6H PRN ORAL Itching/Pruritis 12/20/18 20:30 01/19/19 20:29 01/01/19 01:44 Docusate Sodium (Colace) 100 mg THREE TIMES A DAY ORAL 12/21/18 18:00 01/20/19 17:59 01/02/19 12:31 Folic Acid (Folate) 3 mg DAILY ORAL 12/23/18 10:00 01/22/19 09:59 01/02/19 08:52 Heparin Sodium (Porcine) (Heparin 5000 units/ml) 5,000 units EVERY 12 HOURS SUBQ 12/21/18 09:00 01/19/19 21:46 12/29/18 09:06 Hydralazine HCl (Apresoline) 100 mg Q8HR ORAL 12/27/18 14:00 01/20/19 08:59 01/02/19 06:16 Insulin Aspart (NovoLOG) BEFORE MEALS AND HS SUBQ 12/30/18 16:30 01/29/19 16:29 01/02/19 11:45 Isosorbide Mononitrate (Imdur) 60 mg DAILY ORAL 12/21/18 11:45 01/20/19 11:44 01/02/19 08:53 Minoxidil (Loniten) 2.5 mg Q4H PRN ORAL bp over 165 syst 12/25/18 12:00 01/24/19 11:59 12/27/18 13:00 Nitroglycerin (Ntg) 0.4 mg Q5M X 3 DOSES PRN SL Prn Chest Pain 12/20/18 20:30 01/19/19 20:29 Ondansetron HCl (Zofran) 4 mg Q6H PRN IVP Nausea & Vomiting 12/20/18 20:30 01/19/19 20:29 Pantoprazole (Protonix) 40 mg EVERY 12 HOURS ORAL 12/21/18 21:00 01/20/19 20:59 01/02/19 08:52 Tamsulosin HCl (Flomax) 0.4 mg BID ORAL 12/21/18 11:45 01/20/19 11:44 01/02/19 08:53 Last 24 Hour Vital Signs Date Time Temp Pulse Resp B/P (MAP) Pulse Ox O2 Delivery O2 Flow Rate FiO2 01/02/19 11:13 97.9 01/02/19 10:49 72 20 99 Nasal Cannula 2.0 01/02/19 10:40 68 18 96 Nasal Cannula 2.0 01/02/19 10:13 164/69 01/02/19 10:00 70 164/69 (100) 01/02/19 09:12 72 16 95 Room Air 2.0 28 01/02/19 09:12 95 Nasal Cannula 2.0 28 01/02/19 09:00 Nasal Cannula 2.0 01/02/19 08:53 155/59 01/02/19 08:52 69 155/57 01/02/19 08:52 69 155/57 01/02/19 08:00 97.9 69 20 155/57 (89) 97 01/02/19 06:16 120/66 01/02/19 04:00 98.5 65 19 120/66 (84) 97 01/02/19 01:09 174/58 01/02/19 00:30 97.9 63 20 174/58 (96) 97 01/01/19 21:24 62 149/106 01/01/19 21:00 Nasal Cannula 2.0 01/01/19 20:57 68 18 93 Nasal Cannula 2.0 28 01/01/19 20:00 95 Nasal Cannula 2.0 28 01/01/19 20:00 97.7 62 20 149/106 (120) 98 01/01/19 18:18 132/56 01/01/19 16:00 97.7 61 18 163/56 (91) 98 01/01/19 14:20 157/72 01/01/19 12:41 70 20 99 Nasal Cannula 2.0 28 01/01/19 12:30 66 18 96 Nasal Cannula 2.0 28 01/01/19 12:00 97.7 70 20 161/82 (108) 99 01/01/19 09:28 158/67 01/01/19 09:28 82 158/67 01/01/19 09:28 82 158/67 01/01/19 09:27 158/67 01/01/19 09:00 Nasal Cannula 2.0 01/01/19 08:00 97.8 82 18 158/67 (97) 95 01/01/19 07:20 94 Nasal Cannula 2.0 01/01/19 06:09 144/61 01/01/19 04:00 98.4 62 20 123/50 (74) 98 01/01/19 01:44 154/62 01/01/19 01:18 94 18 97 Nasal Cannula 2.0 01/01/19 01:12 91 Nasal Cannula 2.0 28 01/01/19 01:11 28 01/01/19 01:11 89 18 91 Nasal Cannula 2.0 28 01/01/19 01:10 89 18 91 Nasal Cannula 2.0 28 01/01/19 00:00 97.8 73 20 150/60 (90) 100 12/31/18 21:10 169/63 12/31/18 21:09 75 169/63 12/31/18 21:00 Nasal Cannula 2.0 12/31/18 20:00 99.1 75 22 169/63 (98) 100 12/31/18 17:56 169/63 12/31/18 16:00 98.7 91 19 125/76 (92) 97 Intake and Output 01/01/19 01/02/19 19:00 07:00 Intake Total 300 ml 360 ml Output Total 2700 ml Balance 300 ml -2340 ml Intake Oral 300 ml 360 ml Output Urine Total 2700 ml Labs Test 01/01/19 05:40 White Blood Count 5.4 K/UL (4.8-10.8) Red Blood Count 2.79 M/UL (4.70-6.10) Hemoglobin 8.8 G/DL (14.2-18.0) Hematocrit 28.2 % (42.0-52.0) Mean Corpuscular Volume 101 FL (80-99) Mean Corpuscular Hemoglobin 31.6 PG (27.0-31.0) Mean Corpuscular Hemoglobin Concent 31.4 G/DL (32.0-36.0) Red Cell Distribution Width 13.4 % (11.6-14.8) Platelet Count 92 K/UL (150-450) Mean Platelet Volume 9.9 FL (6.5-10.1) Neutrophils (%) (Auto) % (45.0-75.0) Lymphocytes (%) (Auto) % (20.0-45.0) Monocytes (%) (Auto) % (1.0-10.0) Eosinophils (%) (Auto) % (0.0-3.0) Basophils (%) (Auto) % (0.0-2.0) Differential Total Cells Counted 100 Neutrophils % (Manual) 65 % (45-75) Lymphocytes % (Manual) 22 % (20-45) Monocytes % (Manual) 12 % (1-10) Eosinophils % (Manual) 1 % (0-3) Basophils % (Manual) 0 % (0-2) Band Neutrophils 0 % (0-8) Platelet Estimate Decreased Platelet Morphology Normal Hypochromasia 1+ Macrocytosis 1+ Sodium Level 142 MMOL/L (136-145) Potassium Level 4.8 MMOL/L (3.5-5.1) Chloride Level 110 MMOL/L (98-107) Carbon Dioxide Level 24 MMOL/L (21-32) Anion Gap 8 mmol/L (5-15) Blood Urea Nitrogen 35 mg/dL (7-18) Creatinine 1.7 MG/DL (0.55-1.30) Estimat Glomerular Filtration Rate mL/min (>60) Glucose Level 151 MG/DL (74-106) Uric Acid 8.2 MG/DL (2.6-7.2) Calcium Level 8.2 MG/DL (8.5-10.1) Phosphorus Level 2.9 MG/DL (2.5-4.9) Magnesium Level 2.1 MG/DL (1.8-2.4) Total Bilirubin 0.3 MG/DL (0.2-1.0) Aspartate Amino Transf (AST/SGOT) 18 U/L (15-37) Alanine Aminotransferase (ALT/SGPT) 22 U/L (12-78) Alkaline Phosphatase 47 U/L (46-116) Total Protein 5.6 G/DL (6.4-8.2) Albumin 2.7 G/DL (3.4-5.0) Globulin 2.9 g/dL Albumin/Globulin Ratio 0.9 (1.0-2.7) Height (Feet): 6 Height (Inches): 0.00 Weight (Pounds): 178 Objective Physical Exam: Vitals: reviewed General Appearance: NAD HEENT: normocephalic, atraumatic Neck: non-tender, normal alignment Respiratory/Chest: normal breath sounds bilaterally Cardiovascular/Chest: normal peripheral pulses, normal rate Abdomen: normal bowel sounds, soft, nontender Extremities: normal range of motion + clots noted in urinal, CBI+ Skin: no rash Marcelo Mcallister MD Jan 02, 2019 13:57
--- NOTE | 2019-01-02 14:02 | General Progress Note ---
Assessment/Plan Assessment/Plan: (1) Bladder cancer s/p resection (2) H/O CVA Patient to be continued on Tylenol. D/w Dr. Ruelas and he concurred. Subjective Date patient seen: Jan 02, 2019 Time patient seen: 12:30 - pm Allergies: Coded Allergies: No Known Allergies (Unverified , 12/20/18) Subjective Constitutional: Reports: no symptoms HEENT: Reports: no symptoms Cardiovascular: Reports: no symptoms Respiratory: Reports: no symptoms Gastrointestinal/Abdominal: Reports: no symptoms Genitourinary: Reports: hematuria Neurologic/Psychiatric: Reports: weakness Endocrine: Reports: no symptoms Hematologic/Lymphatic: Reports: no symptoms Subjective Patient has been in bed and showing no signs of pain or distress. Pain has been tolerated on the Tylenol. No new complaints at this time. Objective Last 24 Hour Vital Signs Date Time Temp Pulse Resp B/P (MAP) Pulse Ox O2 Delivery O2 Flow Rate FiO2 01/02/19 11:13 97.9 01/02/19 10:49 72 20 99 Nasal Cannula 2.0 28 01/02/19 10:40 68 18 96 Nasal Cannula 2.0 28 01/02/19 10:13 164/69 01/02/19 10:00 70 164/69 (100) 01/02/19 09:12 72 16 95 Room Air 2.0 01/02/19 09:12 95 Nasal Cannula 2.0 01/02/19 09:00 Nasal Cannula 2.0 01/02/19 08:53 155/59 01/02/19 08:52 69 155/57 01/02/19 08:52 69 155/57 01/02/19 08:00 97.9 69 20 155/57 (89) 97 01/02/19 06:16 120/66 01/02/19 04:00 98.5 65 19 120/66 (84) 97 01/02/19 01:09 174/58 01/02/19 00:30 97.9 63 20 174/58 (96) 97 01/01/19 21:24 62 149/106 01/01/19 21:00 Nasal Cannula 2.0 01/01/19 20:57 68 18 93 Nasal Cannula 2.0 28 01/01/19 20:00 95 Nasal Cannula 2.0 28 01/01/19 20:00 97.7 62 20 149/106 (120) 98 01/01/19 18:18 132/56 01/01/19 16:00 97.7 61 18 163/56 (91) 98 01/01/19 14:20 157/72 Intake and Output 01/01/19 01/02/19 19:00 07:00 Intake Total 300 ml 360 ml Output Total 2700 ml Balance 300 ml -2340 ml Intake Oral 300 ml 360 ml Output Urine Total 2700 ml Height (Feet): 6 Height (Inches): 0.00 Weight (Pounds): 178 Objective General Appearance: no apparent distress, alert EENT: PERRL/EOMI, normal ENT inspection Neck: non-tender, normal alignment Cardiovascular: normal rate, regular rhythm Respiratory/Chest: decreased breath sounds Abdomen: other - obese Edema: trace edema Neurologic: alert, oriented x 3 Skin: warm/dry Jewel Frank Jan 02, 2019 14:02
--- NOTE | 2019-01-02 15:21 | NUR ---
DISCHARGE PLANNING DISCHARGE ORDER NOTED Patient has been accepted to; [facility] [address] [place] [address] Bed:405-A Skilled for Nurse to Nurse report [facility] ETA for transportation: 16:30
--- NOTE | 2019-01-02 17:15 | NUR ---
NURSE NOTES: v/s taken prior to blood transfusion. 1 unit rpbc started and infusing well. will continue to monitor v/s and pt's condition.
--- NOTE | 2019-01-02 19:00 | NUR ---
NURSE NOTES: BLOOD TRANSFUSION STILL INFUSING. FOR TRANSFER TO [facility] AFTER TRANSFUSION
--- NOTE | 2019-01-02 19:09 | Cardiac Electrophysiology PN ---
Assessment/Plan Assessment/Plan 1. Accelerated hypertension with blood pressure of around 200. On clonidine 0.2 q8, Norvasc 10 daily, Coreg 25 bid, Imdur 60 daily and hydralazine 100 tid. 2. History of CAD. Echo Nl EF. No CP and No acute ECG changes 3. Hyperlipidemia on Lipitor. 4. Renal failure. Further evaluation by Nephrology. 5. Hematuria. Tolerated bladder tumor resection well. Unfortunately greater part of the bladder is involved and all tumor could not be removed. Patient needs a radical cystectomy or radiation/chemotherapy at higher level of care. FU Urology Getting PRBC DW RN DC to [facility]charo Subjective Subjective Getting blood transfusion. DC planning today. No CP Objective Last 24 Hour Vital Signs Date Time Temp Pulse Resp B/P (MAP) Pulse Ox O2 Delivery O2 Flow Rate FiO2 01/02/19 17:31 146/56 01/02/19 17:30 98.6 72 18 149/56 (87) 96 01/02/19 17:15 98.3 86 20 146/56 (86) 98 01/02/19 16:00 97.9 68 19 141/55 (83) 97 01/02/19 14:02 154/64 01/02/19 12:00 98.1 63 20 147/52 (83) 97 01/02/19 11:13 97.9 01/02/19 10:49 72 20 99 Nasal Cannula 2.0 28 01/02/19 10:40 68 18 96 Nasal Cannula 2.0 28 01/02/19 10:13 164/69 01/02/19 10:00 70 164/69 (100) 01/02/19 09:12 72 16 95 Room Air 2.0 28 01/02/19 09:12 95 Nasal Cannula 2.0 28 01/02/19 09:00 Nasal Cannula 2.0 01/02/19 08:53 155/59 01/02/19 08:52 69 155/57 01/02/19 08:52 69 155/57 01/02/19 08:00 97.9 69 20 155/57 (89) 97 01/02/19 06:16 120/66 01/02/19 04:00 98.5 65 19 120/66 (84) 97 01/02/19 01:09 174/58 01/02/19 00:30 97.9 63 20 174/58 (96) 97 01/01/19 21:24 62 149/106 01/01/19 21:00 Nasal Cannula 2.0 01/01/19 20:57 68 18 93 Nasal Cannula 2.0 28 01/01/19 20:00 95 Nasal Cannula 2.0 28 01/01/19 20:00 97.7 62 20 149/106 (120) 98 Intake and Output 01/01/19 01/02/19 19:00 07:00 Intake Total 300 ml 360 ml Output Total 2700 ml Balance 300 ml -2340 ml Intake Oral 300 ml 360 ml Output Urine Total 2700 ml Objective HEAD AND NECK: Showed no JVD. LUNGS: Clear. CARDIOVASCULAR: Regular S1 and S2 with no gallop or murmur. ABDOMEN: Soft. EXTREMITIES: 1+ pitting edema. Kd Fish MD Jan 02, 2019 19:09
--- NOTE | 2019-01-02 19:46 | NUR ---
HAND-OFF: Report given to MARTA GUTIERREZ.
--- NOTE | 2019-01-02 20:53 | General Progress Note ---
Assessment/Plan Problem List: (1) UTI (urinary tract infection) ICD Codes: N39.0 - Urinary tract infection, site not specified SNOMED: 88631144, 8940927 (2) CAD (coronary artery disease) ICD Codes: I25.10 - Atherosclerotic heart disease of [place] coronary artery without angina pectoris SNOMED: 23335737 (3) Hematuria ICD Codes: R31.9 - Hematuria, unspecified SNOMED: 71411257, 7528072 (4) Dehydration ICD Codes: E86.0 - Dehydration SNOMED: 57889884, 6340941 (5) ATN (acute tubular necrosis) ICD Codes: N17.0 - Acute kidney failure with tubular necrosis SNOMED: 10748444 (6) Diabetes ICD Codes: E11.9 - Type 2 diabetes mellitus without complications SNOMED: 21184983 (7) Anemia ICD Codes: D64.9 - Anemia, unspecified SNOMED: 432381178 (8) CHF (congestive heart failure) ICD Codes: I50.9 - Heart failure, unspecified SNOMED: 63898627 (9) Weak ICD Codes: R53.1 - Weakness SNOMED: 57252810 (10) HTN (hypertension) ICD Codes: I10 - Essential (primary) hypertension SNOMED: 49210987 (11) ARF (acute renal failure) ICD Codes: N17.9 - Acute kidney failure, unspecified SNOMED: 26204928 (12) Bladder mass ICD Codes: N32.89 - Other specified disorders of bladder SNOMED: 968658855 (13) Acute renal injury ICD Codes: N17.9 - Acute kidney failure, unspecified SNOMED: 43326195, 0994741 Status: progressing Assessment/Plan: chf weak htn arf no acute events chf azotemia reviewed chart and labs and meds chf Subjective ROS Limited/Unobtainable: Yes Allergies: Coded Allergies: No Known Allergies (Unverified , 12/20/18) Objective Last 24 Hour Vital Signs Date Time Temp Pulse Resp B/P (MAP) Pulse Ox O2 Delivery O2 Flow Rate FiO2 01/02/19 19:28 96 Nasal Cannula 2.0 28 01/02/19 19:28 78 16 95 Nasal Cannula 2.0 28 01/02/19 17:31 146/56 01/02/19 17:30 98.6 72 18 149/56 (87) 96 01/02/19 17:15 98.3 86 20 146/56 (86) 98 01/02/19 16:00 97.9 68 19 141/55 (83) 97 01/02/19 14:02 154/64 01/02/19 12:00 98.1 63 20 147/52 (83) 97 01/02/19 11:13 97.9 01/02/19 10:49 72 20 99 Nasal Cannula 2.0 28 01/02/19 10:40 68 18 96 Nasal Cannula 2.0 28 01/02/19 10:13 164/69 01/02/19 10:00 70 164/69 (100) 01/02/19 09:12 72 16 95 Room Air 2.0 28 01/02/19 09:12 95 Nasal Cannula 2.0 28 01/02/19 09:00 Nasal Cannula 2.0 01/02/19 08:53 155/59 01/02/19 08:52 69 155/57 01/02/19 08:52 69 155/57 01/02/19 08:00 97.9 69 20 155/57 (89) 97 01/02/19 06:16 120/66 01/02/19 04:00 98.5 65 19 120/66 (84) 97 01/02/19 01:09 174/58 01/02/19 00:30 97.9 63 20 174/58 (96) 97 01/01/19 21:24 62 149/106 01/01/19 21:00 Nasal Cannula 2.0 01/01/19 20:57 68 18 93 Nasal Cannula 2.0 28 Intake and Output 01/01/19 01/02/19 19:00 07:00 Intake Total 300 ml 360 ml Output Total 2700 ml Balance 300 ml -2340 ml Intake Oral 300 ml 360 ml Output Urine Total 2700 ml Height (Feet): 6 Height (Inches): 0.00 Weight (Pounds): 178 Neck: supple Cardiovascular: normal rate Respiratory/Chest: lungs clear Abdomen: soft Subhash Corona MD Jan 02, 2019 20:53
[2019-01-02] MEDS: Atorvastatin 20mg tab ORAL SCH (20:57)
[2019-01-03 00:16] VITALS: BP 145/51
[2019-01-03] MEDS: cloNIDine 0.2mg Tab ORAL SCH ×2 (01:41→10:44)
[2019-01-03 04:00] VITALS: BP 145/65
--- NOTE | 2019-01-03 04:00 | NUR ---
NURSE NOTE: Pt is A/Ox4 with intermittent confusion. Orders reviewed. Physical assessment completed, pt refused to turn on side for skin assessment. Blood unit product completed without complications. Ambulance transport arrived to pickup patient at approx. 2230. Pt BP had a systolic in the 170's with 3 repeats. Transport made RN aware of their inability to transport pt when BP is over 170's. RN unable to get hold of MD within the allotted 30 min wait time that transport is allowed to wait. Spoke to Subhash Corona MD after transport left, pt is okay to stay overnight and to be discharged in AM. Transport rescheduled for 814. Belongings form was signed with RN and placed in chart. Call pal remains within reach, bed alarm activated. Will continue to monitor.
[2019-01-03 06:19] LABS: EOSINOPHILS % (AUTO) 0.9 % (0.0-3.0); HEMATOCRIT 30.7 % (42.0-52.0); HEMOGLOBIN 9.8 G/DL (14.2-18.0); LYMPHOCYTES % (AUTO) 16.5 % (20.0-45.0); MEAN CORPUSCULAR VOLUME 99 FL (80-99); MONOCYTES % (AUTO) 8.1 % (1.0-10.0); NEUTROPHILS % (AUTO) 73.6 % (45.0-75.0); PLATELET COUNT 104 K/UL (150-450); RED CELL DISTRIBUTION WIDTH 13.4 % (11.6-14.8); WHITE BLOOD COUNT 5.3 K/UL (4.8-10.8)
[2019-01-03] MEDS: HydrALAZINE 50mg tab ORAL SCH (06:34)
[2019-01-03] MEDS: NovoLOG Insulin Flexpen SUBQ SCH (06:35)
[2019-01-03 06:54] LABS: ALANINE AMINOTRANSFERASE 17 U/L (12-78); ALBUMIN 2.5 G/DL (3.4-5.0); ALBUMIN/GLOBULIN RATIO 0.7 (1.0-2.7); ALKALINE PHOSPHATASE 45 U/L (46-116); ANION GAP 7 mmol/L (5-15); ASPARTATE AMINO TRANSFERASE 15 U/L (15-37); BILIRUBIN,TOTAL 0.4 MG/DL (0.2-1.0); BLOOD UREA NITROGEN 28 mg/dL (7-18); CALCIUM 8.2 MG/DL (8.5-10.1); CARBON DIOXIDE 26 MMOL/L (21-32); CHLORIDE 106 MMOL/L (98-107); CREATININE 1.5 MG/DL (0.55-1.30); PHOSPHORUS 2.8 MG/DL (2.5-4.9); POTASSIUM 4.6 MMOL/L (3.5-5.1); SODIUM 138 MMOL/L (136-145)
--- NOTE | 2019-01-03 07:31 | NUR ---
HAND-OFF: Report given to Leonie pt is stable.
--- NOTE | 2019-01-03 07:32 | NUR ---
NURSE NOTES: ASLEEP. NO C/O PAIN. MANZANO IN PLACE DRAINING RED OUTPUT. IN NO ACUTE DISTRESS.
[2019-01-03 08:00] VITALS: BP 145/66
[2019-01-03] MEDS: Docusate 100mg cap ORAL SCH (08:21)
[2019-01-03] MEDS: Imdur 30mg tab ORAL SCH (08:22)
[2019-01-03] MEDS: Bisacodyl EC 5mg tab ORAL SCH (08:23)
[2019-01-03] MEDS: Carvedilol 25mg Tab ORAL SCH (08:23)
[2019-01-03] MEDS: Tamsulosin 0.4mg cap ORAL SCH (08:23)
[2019-01-03] MEDS: Heparin 5000 units/ml inj SUBQ SCH (08:30)
--- NOTE | 2019-01-03 08:47 | General Progress Note ---
Assessment/Plan Assessment/Plan: (1) Bladder cancer s/p resection (2) H/O CVA Patient to be continued on Tylenol. D/w Dr. Ruelas and he concurred. Subjective Date patient seen: Jan 03, 2019 Time patient seen: 07:30 - am Allergies: Coded Allergies: No Known Allergies (Unverified , 12/20/18) Subjective Constitutional: Reports: no symptoms HEENT: Reports: no symptoms Cardiovascular: Reports: no symptoms Respiratory: Reports: no symptoms Gastrointestinal/Abdominal: Reports: no symptoms Genitourinary: Reports: hematuria Neurologic/Psychiatric: Reports: weakness Endocrine: Reports: no symptoms Hematologic/Lymphatic: Reports: no symptoms Subjective Patient in bed no signs of pain or distress. Denies pain at this time. Objective Last 24 Hour Vital Signs Date Time Temp Pulse Resp B/P (MAP) Pulse Ox O2 Delivery O2 Flow Rate FiO2 01/03/19 08:23 73 145/66 01/03/19 08:23 73 145/66 01/03/19 08:22 145/66 01/03/19 08:22 96 Nasal Cannula 2.0 28 01/03/19 08:22 68 20 96 Nasal Cannula 2.0 28 01/03/19 08:00 98.5 73 20 145/66 (92) 96 01/03/19 06:34 148/65 01/03/19 04:00 98.0 67 20 145/65 (91) 98 01/03/19 01:41 144/51 01/03/19 00:16 98.9 61 18 145/51 (82) 94 01/02/19 21:00 Nasal Cannula 2.0 01/02/19 20:58 64 167/64 01/02/19 20:57 167/64 01/02/19 20:00 98.9 64 18 167/64 (98) 95 01/02/19 19:28 96 Nasal Cannula 2.0 28 01/02/19 19:28 78 16 95 Nasal Cannula 2.0 28 01/02/19 17:31 146/56 01/02/19 17:30 98.6 72 18 149/56 (87) 96 01/02/19 17:15 98.3 86 20 146/56 (86) 98 01/02/19 16:00 97.9 68 19 141/55 (83) 97 01/02/19 14:02 154/64 8/20/19 12:00 98.1 63 20 147/52 (83) 97 01/02/19 11:13 97.9 01/02/19 10:49 72 20 99 Nasal Cannula 2.0 28 01/02/19 10:40 68 18 96 Nasal Cannula 2.0 28 01/02/19 10:13 164/69 01/02/19 10:00 70 164/69 (100) 01/02/19 09:12 72 16 95 Room Air 2.0 28 01/02/19 09:12 95 Nasal Cannula 2.0 28 01/02/19 09:00 Nasal Cannula 2.0 01/02/19 08:53 155/59 01/02/19 08:52 69 155/57 01/02/19 08:52 69 155/57 Intake and Output 01/02/19 01/03/19 18:59 06:59 Intake Total 800 ml 480 ml Output Total 1700 ml 600 ml Balance -900 ml -120 ml Intake Oral 800 ml 480 ml Output Urine Total 1700 ml 600 ml Laboratory Tests 01/03/19 05:15: White Blood Count 5.3, Red Blood Count 3.10L, Hemoglobin 9.8L, Hematocrit 30.7L , Mean Corpuscular Volume 99, Mean Corpuscular Hemoglobin 31.5H, Mean Corpuscular Hemoglobin Concent 31.8L, Red Cell Distribution Width 13.4, Platelet Count 104L, Mean Platelet Volume 9.9, Neutrophils (%) (Auto) 73.6, Lymphocytes (%) (Auto) 16.5L, Monocytes (%) (Auto) 8.1, Eosinophils (%) (Auto) 0.9, Basophils (%) (Auto) 1.0, Sodium Level 138, Potassium Level 4.6, Chloride Level 106, Carbon Dioxide Level 26, Anion Gap 7, Blood Urea Nitrogen 28H, Creatinine 1.5H, Estimat Glomerular Filtration Rate , Glucose Level 155H, Uric Acid 8.4H, Calcium Level 8.2L, Phosphorus Level 2.8, Magnesium Level 2.0, Total Bilirubin 0.4, Aspartate Amino Transf (AST/SGOT) 15, Alanine Aminotransferase ( ALT/SGPT) 17, Alkaline Phosphatase 45L, Total Protein 5.9L, Albumin 2.5L, Globulin 3.4, Albumin/Globulin Ratio 0.7L Height (Feet): 6 Height (Inches): 0.00 Weight (Pounds): 178 Objective General Appearance: no apparent distress, alert EENT: PERRL/EOMI, normal ENT inspection Neck: non-tender, normal alignment Cardiovascular: normal rate, regular rhythm Respiratory/Chest: decreased breath sounds Abdomen: other - obese Edema: trace edema Neurologic: alert, oriented x 3 Skin: warm/dry Jewel Frank Jan 03, 2019 08:47
--- NOTE | 2019-01-03 08:50 | Hematology/Onc Progress Note ---
Assessment/Plan Assessment/Plan Assessment and Recs: # Bladder cancer requires resection v chemo/xrt -- presented with multi masses CT shows Scattered eccentric mural thickening/masses in the urinary bladder wall , correlating with findings on recent ultrasound. No significant perivesical stranding. Recommend further evaluation with cystoscopy. --> urology consulted, appreciate input --> Uro note: Tolerated bladder tumor resection well. Unfortunately greater part of the bladder is involved and essentially replaced all normal bladder with tumor. I can not resect all the tumors. Patient needs a radical cystectomy (removal of bladder) or radiation/chemotherapy at higher level of care. --> recommend transfer to higher level of care for cystectomy --> dw case fitter and if doesn't get transfered, set up for chemo/radiation as outpatient --> path does confirm malignancy --> CBI # Thrombocytopenia - potential causes multifactorial, evaluate liver and viral etiologies to begin, also could be related to underlying medications patient has received. --> Hep panel and HIV -> NEGATIVE --> US abd showed bladder masses-->ct reviewed as well --> Peripheral smear ordered to evaluate for blasts /schistocytes --> none noted --> abx and other meds have been reviewed --> ok for ppx if plt >50k w/ either heparin or lovenox --> trend plt 103-->92k-->90k->94k->102k-->92-->104 # Anemia of iron deficiency likely due to hematuria --> iv iron x 5 days low ferritin, completed --> likely due to hematuria --> have started on ivf and consider uro prn cysto --> hgb goal >7 --> cont po folic acid # Acute renal injury --> cr 2.3-->1.8-->2.3->1.6-->1.4-->1.4-->1.7-->1.5 --> per renal recs --> volume expansion # HTN --> cards is following, appreciate recs # Hematuria # UTI (urinary tract infection) # Dehydration The timing of this note does not necessarily reflect the time of the patient was seen. GREATLY APPRECIATE CONSULTATION. Subjective Allergies: Coded Allergies: No Known Allergies (Unverified , 12/20/18) Subjective 12/22: no events noted, no bleeding, ct ordered for the us findings with multiple masses in bladder, cysto recommended 12/24: no events, no bleeding, no night sweats noted, no chills reported 12/25: no fevers, no chills, no major changes, cysto for /12/26: awaiting further uro recs, feeling better, no f/c, prbc prn 12/27: no events, no bleeding, no night sweats, cysto pending 12/28: tolerated bladder tumor resection well, hgb remains >10 12/29: no events, pending potential tx, no bleeding 01/01: no overnight events, on cbi, h/h stable 01/02: refusing care and refusing labs, no bleeding, less hematuria 01/03: denies pain, no distress, labs reviewed, no fever, blood transfusion completed Objective Objective Current Medications Medications (Trade) Dose Ordered Sig/Sallie Route PRN Reason Start Time Stop Time Status Last Admin Dose Admin Acetaminophen (Tylenol) 650 mg Q4H PRN ORAL Mild Pain/Temp > 100.5 12/31/18 14:00 01/19/19 13:59 01/02/19 10:43 Albuterol/ Ipratropium (Albuterol/ Ipratropium) 3 ml Q6HRT PRN HHN Shortness of Breath 01/01/19 01:30 01/06/19 00:59 01/02/19 10:43 Amlodipine Besylate (Norvasc) 10 mg DAILY ORAL 12/21/18 09:00 01/20/19 08:59 01/03/19 08:23 Atorvastatin Calcium (Lipitor) 20 mg BEDTIME ORAL 12/21/18 21:00 01/20/19 20:59 01/02/19 20:57 Bisacodyl (Dulcolax) 5 mg DAILY ORAL 12/21/18 09:00 01/20/19 08:59 01/03/19 08:23 Carvedilol (Coreg) 25 mg EVERY 12 HOURS ORAL 12/27/18 09:00 01/20/19 08:59 01/03/19 08:23 Clonidine HCl (Catapres tab) 0.2 mg Q8H ORAL 12/28/18 10:00 01/21/19 09:59 01/03/19 01:41 Dextrose (Dextrose 50%) 25 ml Q30M PRN IV Hypoglycemia 12/30/18 13:00 01/29/19 12:59 Dextrose (Dextrose 50%) 50 ml Q30M PRN IV Hypoglycemia 12/30/18 13:00 01/29/19 12:59 Diphenhydramine HCl (Benadryl) 25 mg Q6H PRN ORAL Itching/Pruritis 12/20/18 20:30 01/19/19 20:29 01/01/19 01:44 Docusate Sodium (Colace) 100 mg THREE TIMES A DAY ORAL 12/21/18 18:00 01/20/19 17:59 01/03/19 08:21 Folic Acid (Folate) 3 mg DAILY ORAL 12/23/18 10:00 01/22/19 09:59 01/03/19 08:22 Heparin Sodium (Porcine) (Heparin 5000 units/ml) 5,000 units EVERY 12 HOURS SUBQ 12/21/18 09:00 01/19/19 21:46 01/03/19 08:30 Hydralazine HCl (Apresoline) 100 mg Q8HR ORAL 12/27/18 14:00 01/20/19 08:59 01/03/19 06:34 Insulin Aspart (NovoLOG) BEFORE MEALS AND HS SUBQ 12/30/18 16:30 01/29/19 16:29 01/03/19 06:35 Isosorbide Mononitrate (Imdur) 60 mg DAILY ORAL 12/21/18 11:45 01/20/19 11:44 01/03/19 08:22 Minoxidil (Loniten) 2.5 mg Q4H PRN ORAL bp over 165 syst 12/25/18 12:00 01/24/19 11:59 12/27/18 13:00 Nitroglycerin (Ntg) 0.4 mg Q5M X 3 DOSES PRN SL Prn Chest Pain 12/20/18 20:30 01/19/19 20:29 Ondansetron HCl (Zofran) 4 mg Q6H PRN IVP Nausea & Vomiting 12/20/18 20:30 01/19/19 20:29 Pantoprazole (Protonix) 40 mg EVERY 12 HOURS ORAL 12/21/18 21:00 01/20/19 20:59 01/03/19 08:23 Tamsulosin HCl (Flomax) 0.4 mg BID ORAL 12/21/18 11:45 01/20/19 11:44 01/03/19 08:23 Last 24 Hour Vital Signs Date Time Temp Pulse Resp B/P (MAP) Pulse Ox O2 Delivery O2 Flow Rate FiO2 01/03/19 08:23 73 145/66 01/03/19 08:23 73 145/66 01/03/19 08:22 145/66 01/03/19 08:22 96 Nasal Cannula 2.0 28 01/03/19 08:22 68 20 96 Nasal Cannula 2.0 28 01/03/19 08:00 98.5 73 20 145/66 (92) 96 01/03/19 06:34 148/65 01/03/19 04:00 98.0 67 20 145/65 (91) 98 01/03/19 01:41 144/51 01/03/19 00:16 98.9 61 18 145/51 (82) 94 01/02/19 21:00 Nasal Cannula 2.0 01/02/19 20:58 64 167/64 01/02/19 20:57 167/64 01/02/19 20:00 98.9 64 18 167/64 (98) 95 01/02/19 19:28 96 Nasal Cannula 2.0 01/02/19 19:28 78 16 95 Nasal Cannula 2.0 01/02/19 17:31 146/56 01/02/19 17:30 98.6 72 18 149/56 (87) 96 01/02/19 17:15 98.3 86 20 146/56 (86) 98 01/02/19 16:00 97.9 68 19 141/55 (83) 97 01/02/19 14:02 154/64 01/02/19 12:00 98.1 63 20 147/52 (83) 97 01/02/19 11:13 97.9 01/02/19 10:49 72 20 99 Nasal Cannula 2.0 01/02/19 10:40 68 18 96 Nasal Cannula 2.0 28 01/02/19 10:13 164/69 01/02/19 10:00 70 164/69 (100) 01/02/19 09:12 72 16 95 Room Air 2.0 28 01/02/19 09:12 95 Nasal Cannula 2.0 28 01/02/19 09:00 Nasal Cannula 2.0 01/02/19 08:53 155/59 01/02/19 08:52 69 155/57 01/02/19 08:52 69 155/57 01/02/19 08:00 97.9 69 20 155/57 (89) 97 01/02/19 06:16 120/66 01/02/19 04:00 98.5 65 19 120/66 (84) 97 01/02/19 01:09 174/58 01/02/19 00:30 97.9 63 20 174/58 (96) 97 01/01/19 21:24 62 149/106 01/01/19 21:00 Nasal Cannula 2.0 01/01/19 20:57 68 18 93 Nasal Cannula 2.0 28 01/01/19 20:00 95 Nasal Cannula 2.0 28 01/01/19 20:00 97.7 62 20 149/106 (120) 98 01/01/19 18:18 132/56 01/01/19 16:00 97.7 61 18 163/56 (91) 98 01/01/19 14:20 157/72 01/01/19 12:41 70 20 99 Nasal Cannula 2.0 28 01/01/19 12:30 66 18 96 Nasal Cannula 2.0 28 01/01/19 12:00 97.7 70 20 161/82 (108) 99 01/01/19 09:28 158/67 01/01/19 09:28 82 158/67 01/01/19 09:28 82 158/67 01/01/19 09:27 158/67 01/01/19 09:00 Nasal Cannula 2.0 Intake and Output 01/02/19 01/03/19 18:59 06:59 Intake Total 800 ml 480 ml Output Total 1700 ml 600 ml Balance -900 ml -120 ml Intake Oral 800 ml 480 ml Output Urine Total 1700 ml 600 ml Labs Test 01/01/19 05:40 01/03/19 05:15 White Blood Count 5.4 K/UL (4.8-10.8) 5.3 K/UL (4.8-10.8) Red Blood Count 2.79 M/UL (4.70-6.10) 3.10 M/UL (4.70-6.10) Hemoglobin 8.8 G/DL (14.2-18.0) 9.8 G/DL (14.2-18.0) Hematocrit 28.2 % (42.0-52.0) 30.7 % (42.0-52.0) Mean Corpuscular Volume 101 FL (80-99) 99 FL (80-99) Mean Corpuscular Hemoglobin 31.6 PG (27.0-31.0) 31.5 PG (27.0-31.0) Mean Corpuscular Hemoglobin Concent 31.4 G/DL (32.0-36.0) 31.8 G/DL (32.0-36.0) Red Cell Distribution Width 13.4 % (11.6-14.8) 13.4 % (11.6-14.8) Platelet Count 92 K/UL (150-450) 104 K/UL (150-450) Mean Platelet Volume 9.9 FL (6.5-10.1) 9.9 FL (6.5-10.1) Neutrophils (%) (Auto) % (45.0-75.0) 73.6 % (45.0-75.0) Lymphocytes (%) (Auto) % (20.0-45.0) 16.5 % (20.0-45.0) Monocytes (%) (Auto) % (1.0-10.0) 8.1 % (1.0-10.0) Eosinophils (%) (Auto) % (0.0-3.0) 0.9 % (0.0-3.0) Basophils (%) (Auto) % (0.0-2.0) 1.0 % (0.0-2.0) Differential Total Cells Counted 100 Neutrophils % (Manual) 65 % (45-75) Lymphocytes % (Manual) 22 % (20-45) Monocytes % (Manual) 12 % (1-10) Eosinophils % (Manual) 1 % (0-3) Basophils % (Manual) 0 % (0-2) Band Neutrophils 0 % (0-8) Platelet Estimate Decreased Platelet Morphology Normal Hypochromasia 1+ Macrocytosis 1+ Sodium Level 142 MMOL/L (136-145) 138 MMOL/L (136-145) Potassium Level 4.8 MMOL/L (3.5-5.1) 4.6 MMOL/L (3.5-5.1) Chloride Level 110 MMOL/L (98-107) 106 MMOL/L (98-107) Carbon Dioxide Level 24 MMOL/L (21-32) 26 MMOL/L (21-32) Anion Gap 8 mmol/L (5-15) 7 mmol/L (5-15) Blood Urea Nitrogen 35 mg/dL (7-18) 28 mg/dL (7-18) Creatinine 1.7 MG/DL (0.55-1.30) 1.5 MG/DL (0.55-1.30) Estimat Glomerular Filtration Rate mL/min (>60) mL/min (>60) Glucose Level 151 MG/DL (74-106) 155 MG/DL (74-106) Uric Acid 8.2 MG/DL (2.6-7.2) 8.4 MG/DL (2.6-7.2) Calcium Level 8.2 MG/DL (8.5-10.1) 8.2 MG/DL (8.5-10.1) Phosphorus Level 2.9 MG/DL (2.5-4.9) 2.8 MG/DL (2.5-4.9) Magnesium Level 2.1 MG/DL (1.8-2.4) 2.0 MG/DL (1.8-2.4) Total Bilirubin 0.3 MG/DL (0.2-1.0) 0.4 MG/DL (0.2-1.0) Aspartate Amino Transf (AST/SGOT) 18 U/L (15-37) 15 U/L (15-37) Alanine Aminotransferase (ALT/SGPT) 22 U/L (12-78) 17 U/L (12-78) Alkaline Phosphatase 47 U/L (46-116) 45 U/L (46-116) Total Protein 5.6 G/DL (6.4-8.2) 5.9 G/DL (6.4-8.2) Albumin 2.7 G/DL (3.4-5.0) 2.5 G/DL (3.4-5.0) Globulin 2.9 g/dL 3.4 g/dL Albumin/Globulin Ratio 0.9 (1.0-2.7) 0.7 (1.0-2.7) Height (Feet): 6 Height (Inches): 0.00 Weight (Pounds): 178 Objective Physical Exam: Vitals: reviewed General Appearance: NAD HEENT: normocephalic, atraumatic Neck: non-tender, normal alignment Respiratory/Chest: normal breath sounds bilaterally Cardiovascular/Chest: normal peripheral pulses, normal rate Abdomen: normal bowel sounds, soft, nontender Extremities: normal range of motion + clots noted in urinal, CBI+ Skin: no rash Marcelo Mcallister MD Jan 03, 2019 08:50
[2019-01-03] MEDS ORDERED: NS Irrig 4000ml IRRIG ONE ×3 (09:20→10:49)
--- NOTE | 2019-01-03 10:26 | NUR ---
DISCHARGE PLANNING: NOTE PER [facility] OF [facility] CREW IS IN HOUSE PICKING UP PT FOR TRANSPORT TO SNF.
[2019-01-03 10:45] VITALS: BP 170/54
--- NOTE | 2019-01-03 10:51 | NUR ---
NURSE NOTES: discharged to [facility] via ambulance in stable condition. transfer papers and orders sent with pt report given to martin robles
--- NOTE | 2019-01-03 11:37 | Nephrology Progress Note ---
Assessment/Plan Problem List: (1) Acute renal injury Assessment: Cr rising again (2) Gross hematuria (3) Bladder mass (4) Hypertension (5) Diabetes (6) Anemia Assessment: progressive Assessment ANGELA - HTN OOC - Hematuria- Likely UTI Dehydration DM CAD Plan stop IV Transfused check labs had cysto 12/28 Uro note: Tolerated bladder tumor resection well. Unfortunately greater part of the bladder is involved and essentially replaced all normal bladder with tumor. I can not resect all the tumors. Patient needs a radical cystectomy (removal of bladder) or radiation/chemotherapy at higher level of care. 1. recommend transfer to higher level of care for cystectomy 2. continue richardson, keep irrigation to maintain light pink urine. Rocephin Slow hydrate 2D echo Keep BP and BS in check per orders due cysto as clear by cardio Multiple masslike lesions within the bladder. Further evaluation with cystoscopy is recommended to evaluate for possible neoplasm. Multiple parapelvic renal cysts Subjective ROS Limited/Unobtainable: No Constitutional: Reports: malaise Objective Objective Last 24 Hour Vital Signs Date Time Temp Pulse Resp B/P (MAP) Pulse Ox O2 Delivery O2 Flow Rate FiO2 01/03/19 10:45 68 170/54 (92) 01/03/19 10:44 170/54 01/03/19 08:59 Nasal Cannula 2.0 01/03/19 08:23 73 145/66 01/03/19 08:23 73 145/66 01/03/19 08:22 145/66 01/03/19 08:22 96 Nasal Cannula 2.0 28 01/03/19 08:22 68 20 96 Nasal Cannula 2.0 01/03/19 08:00 98.5 73 20 145/66 (92) 96 01/03/19 06:34 148/65 01/03/19 04:00 98.0 67 20 145/65 (91) 98 01/03/19 01:41 144/51 01/03/19 00:16 98.9 61 18 145/51 (82) 94 01/02/19 21:00 Nasal Cannula 2.0 01/02/19 20:58 64 167/64 01/02/19 20:57 167/64 01/02/19 20:00 98.9 64 18 167/64 (98) 95 01/02/19 19:28 96 Nasal Cannula 2.0 28 01/02/19 19:28 78 16 95 Nasal Cannula 2.0 28 01/02/19 17:31 146/56 01/02/19 17:30 98.6 72 18 149/56 (87) 96 01/02/19 17:15 98.3 86 20 146/56 (86) 98 01/02/19 16:00 97.9 68 19 141/55 (83) 97 01/02/19 14:02 154/64 01/02/19 12:00 98.1 63 20 147/52 (83) 97 Intake and Output 01/02/19 01/03/19 19:00 07:00 Intake Total 800 ml 480 ml Output Total 1700 ml 600 ml Balance -900 ml -120 ml Intake Oral 800 ml 480 ml Output Urine Total 1700 ml 600 ml Laboratory Tests 01/03/19 05:15: White Blood Count 5.3, Red Blood Count 3.10L, Hemoglobin 9.8L, Hematocrit 30.7L , Mean Corpuscular Volume 99, Mean Corpuscular Hemoglobin 31.5H, Mean Corpuscular Hemoglobin Concent 31.8L, Red Cell Distribution Width 13.4, Platelet Count 104L, Mean Platelet Volume 9.9, Neutrophils (%) (Auto) 73.6, Lymphocytes (%) (Auto) 16.5L, Monocytes (%) (Auto) 8.1, Eosinophils (%) (Auto) 0.9, Basophils (%) (Auto) 1.0, Sodium Level 138, Potassium Level 4.6, Chloride Level 106, Carbon Dioxide Level 26, Anion Gap 7, Blood Urea Nitrogen 28H, Creatinine 1.5H, Estimat Glomerular Filtration Rate , Glucose Level 155H, Uric Acid 8.4H, Calcium Level 8.2L, Phosphorus Level 2.8, Magnesium Level 2.0, Total Bilirubin 0.4, Aspartate Amino Transf (AST/SGOT) 15, Alanine Aminotransferase ( ALT/SGPT) 17, Alkaline Phosphatase 45L, Total Protein 5.9L, Albumin 2.5L, Globulin 3.4, Albumin/Globulin Ratio 0.7L Height (Feet): 6 Height (Inches): 0.00 Weight (Pounds): 178 General Appearance: no apparent distress Objective no change Russell Sofia MD Jan 03, 2019 11:37
--- NOTE | 2019-01-04 07:51 | Discharge Summary ---
Discharge Summary Discharge Summary _ DATE OF ADMISSION: 12/20/2018 DATE OF DISCHARGE: 01/03/2019 DISCHARGED BY: Dr Gray REASON FOR ADMISSION: 83 years old male with past medical history of diabetes mellitus, hypertension, coronary artery disease, congestive heart failure, CVA, presented to emergency department with abnormal blood testing. Patient was sent by Dr. Mcallister. Patient noted to have elevated BUN and creatinine. Patient reported not feeling well. Patient reported not eating or drinking. He denied fever and chills. He denied chest pain or shortness of breath. He denied dysuria and urinary frequency. Upon evaluation vital signs were stable. Laboratory work-up revealed no leukocytosis, hemoglobin 12.3 ,hematocrit 36.3, platelet count 118. Urinalysis revealed +3 protein , +5 blood , +2 leukocyte esterase, gross hematuria and few bacteria. Chemistry demonstrated evidence of renal failure with BUN 57, creatinine 1.9. Stable LFT. Troponin 0.008. EKG revealed normal sinus rhythm, no acute ischemic changes , with occasional PVC. Albumin 3.3. Chest x-ray demonstrated no acute cardiopulmonary pathology. Patient was subsequently admitted for further management. CONSULTANTS: mail handler equipment operator Dr. Carson pulmonary/critical care Dr. Moyer psych nurse Dr. Sofia urologist Dr. Lara pain specialist Dr. Ruelas heel cover splitter/oncologist Dr. Mcallister HOSPITAL COURSE: Patient admitted to medical surgical floor. Patient started on generous IV hydration. Renal parameters and electrolytes were closely monitored, electrolytes corrected as needed, and nephrotoxins were avoided. Renal ultrasound demonstrated multiply masslike lesions within the bladder. Abdominal ultrasound revealed equivocal increased echogenicity of the liver , which may suggest mild hepatic steatosis. CT of the abdomen and pelvis revealed abnormal urinary bladder with multiply nodular mass lesions, neoplasm was suspected. Diverticulosis of the colon , but no definite diverticulitis. Gallstones. Old granulomatous disease, hiatal hernia. Urology consult was requested. Patient subsequently undergone cystoscopy with transurethral resection of large bladder tumor. Patient tolerated procedure well. Per urologist , unfortunately greater part of the bladder was involved and essentially replaced all normal bladder with tumor. Urologist was unable to resect all the tumors. Patient will need radical cystectomy or radiation/chemotherapy at higher level of care. Urologist recommended continue Oconnor catheter with continuous bladder irrigation to maintain light pink urine and transfer to higher level of care for cystectomy. Sales/Marketing followed . Patient was noted to have accelerated hypertension with blood pressure around 200. Patient was on multiple antihypertensive medications. Blood pressure was eventually controlled. Statin was continued. Patient with history of coronary artery disease. Patient denied chest pain , no acute ischemic ischemic changes seen on EKG except for occasional PVC. Echocardiogram revealed preserved ejection fraction of 65% with mild left ventricular hypertrophy. No evidence of wall motion abnormality. Aortic stenosis noted. Supplemental oxygen provided as needed to keep pulse oximetry above 92%. Chest x-ray revealed no evidence of acute cardiopulmonary pathology. Pulmonary toilet with bronchodilator via handheld nebulizing therapy was on board as needed. With continuous bladder irrigation, urine remained of cranberry color, no clots. Pathology of bladder tumor confirmed tumor and revealed high-grade papillary urothelial carcinoma. Tumor invades lamina propria. Oncologist followed. Patient will need either transfer to a higher level of care or outpatient follow up for chemo/radiation . Platelet count was closely monitored. Hepatitis panel and HIV were negative. Peripheral blood smear revealed no evidence of blasts or schistocytes. Platelet count 104, prior to discharge. Hemoglobin and hematocrit were closely monitored with goal to keep hemoglobin above 7. Patient undergone transfusion of 1 units of packed red blood cells while in the hospital. Anemia work-up was consistent with anemia of iron deficiency , ferritin 38 . Pain management was addressed as per pain specialist recommendations. Supportive care provided. Patient clinically stabilized. Prior to discharge BUN from 57 down to 28 and creatinine from 1.9 down to 1.7. Hemoglobin 9.8, hematocrit 30.7. Placement was arranged to [facility] facility for continuation of care. Patient will need outpatient follow-up with oncologist. FINAL DIAGNOSES: Bladder cancer Status post cystoscopy with transurethral resection of bladder tumor, large. Gross hematuria , secondary to bladder cancer Acute kidney injury/acute renal failure Dehydration Hypertensive urgency Diabetes mellitus History of CVA Coronary artery disease Hyperlipidemia Iron deficiency anemia Thrombocytopenia DISCHARGE MEDICATIONS: See Medication Reconciliation list. DISCHARGE INSTRUCTIONS: Patient was discharged to the [facility] facility. Follow up with medical doctor at the facility. Outpatient follow up with oncologist. Lacey Brenner NP Jan 04, 2019 07:51
== END 2019-01-03 10:50 | DRG 668 ==
LOC: EDBD 17:39 → EMR 19:30 → 3E 19:35 → EDBEDREQ 20:53
PROC: 0TBB8ZZ Excision of Bladder, Via Natural or Artificial Opening Endoscopic (ICD-10-PCS; principal; 2018-12-28 07:30)
DX: C67.4 Malignant neoplasm of posterior wall of bladder (principal); N17.0 Acute kidney failure with tubular necrosis; N39.0 Urinary tract infection, site not specified; C67.0 Malignant neoplasm of trigone of bladder; C67.6 Malignant neoplasm of ureteric orifice; E86.0 Dehydration; I16.0 Hypertensive urgency; D69.6 Thrombocytopenia, unspecified; D50.9 Iron deficiency anemia, unspecified; I25.10 Atherosclerotic heart disease of native coronary artery without angina pectoris; I11.0 Hypertensive heart disease with heart failure; I50.9 Heart failure, unspecified; E11.9 Type 2 diabetes mellitus without complications; Z86.73 Personal history of transient ischemic attack (TIA), and cerebral infarction without residual deficits
CPT/HCPCS: 36415; 71045; 74176; 76700; 76770; 80048; 80053; 80061; 80076; 81003; 82550; 82553; 82607; 82728; 82746; 82962; 82977; 83036; 83540; 83550; 83735; 83880; 84075; 84100; 84153; 84443; 84484; 84550; 85007; 85025; 85610; 85730; 86140; 86703; 86705; 86709; 86803; 86850; 86900; 86901; 86920; 87340; 93005; 93306; 93971; 94003; 94150; 94640; 94664; 96365; 99285; J1815; J7620

== ENCOUNTER 2019-04-01 04:41 | Inpatient (IN) | payer MEDICARE ==
[~2019-04-01] VITALS: Ht 165.1 cm; Wt 78.9 kg
[~2019-04-01 04:41] MED LIST: ACETAMINOPHEN325 M1 ORAL; AMLODIPINE BESY10 MG ORAL; APRESOLINE50 MG ORAL; ATORVASTATIN CA40 MG ORAL; AVODART0.5 MG ORAL; BISACODYL5 MG ORAL; CATAPRES0.2 MG ORAL; COREG12.5 MG ORAL; FLOMAX0.4 MG ORAL; FUROSEMIDE40 MG ORAL; HYDRALAZINE HCL50 MG ORAL; ISOSORBIDE DINI10 MG ORAL; LONITEN2.5 MG ORAL; LOSARTAN POTASS50 MG ORAL; MILK OF MA400 MG/51 ORAL; VITAMIN B COMP1 EAC2 ORAL
--- NOTE | 2019-04-01 05:25 | NUR ---
ED Nurse Note: Recieved pt BIBA from SNF with c/o respiratory distress and desating, pt is on gurney awake and alert, appears slightly drowsy, not speaking, no sob or labored breathing, placed on monitoring with sat of 100%, has 24g IV line in left hand, immediately placed on monitoring, b/p slightly low, MD at bedside, will resume care as ordered and closely monitor.
[2019-04-01 05:30] VITALS: BP 122/52
[2019-04-01 05:30] LABS: BASOPHILS % (AUTO) 0.6 % (0.0-2.0); EOSINOPHILS % (AUTO) 0.1 % (0.0-3.0); HEMATOCRIT 26.4 % (42.0-52.0); LYMPHOCYTES % (AUTO) 9.9 % (20.0-45.0); MEAN CORPUSCULAR VOLUME 92 FL (80-99); MONOCYTES % (AUTO) 9.2 % (1.0-10.0); NEUTROPHILS % (AUTO) 80.1 % (45.0-75.0); PLATELET COUNT 105 K/UL (150-450); RED BLOOD COUNT 2.87 M/UL (4.70-6.10); RED CELL DISTRIBUTION WIDTH 19.9 % (11.6-14.8); WHITE BLOOD COUNT 8.3 K/UL (4.8-10.8)
[2019-04-01 05:42] LABS: INR 1.1 (0.9-1.1)
[2019-04-01 05:47] LABS: APPEARANCE,URINE VERY CLOUDY; BILIRUBIN, URINE NEGATIVE (NEGATIVE); COLOR,URINE BROWN; GLUCOSE, URINE (UA) 2+ (NEGATIVE); KETONES,URINE 1+ (NEGATIVE); LEUKOCYTE ESTERASE ,URINE 3+ (NEGATIVE); NITRITE,URINE NEGATIVE (NEGATIVE); PH,URINE 5 (4.5-8.0); PROTEIN,URINE 4+ (NEGATIVE); UROBILINOGEN,URINE NORMAL MG/DL (0.0-1.0)
[2019-04-01 05:57] LABS: ALANINE AMINOTRANSFERASE 8 U/L (12-78); ALBUMIN 1.5 G/DL (3.4-5.0); ALBUMIN/GLOBULIN RATIO 0.3 (1.0-2.7); ALKALINE PHOSPHATASE 44 U/L (46-116); ANION GAP 14 mmol/L (5-15); ASPARTATE AMINO TRANSFERASE 46 U/L (15-37); BILIRUBIN,TOTAL 0.3 MG/DL (0.2-1.0); BLOOD UREA NITROGEN 68 mg/dL (7-18); CALCIUM 7.2 MG/DL (8.5-10.1); CARBON DIOXIDE 20 MMOL/L (21-32); CHLORIDE 121 MMOL/L (98-107); CKMB 5.6 NG/ML (0.0-3.6); CREATINE KINASE 907 U/L (26-308); CREATININE 3.8 MG/DL (0.55-1.30); PHOSPHORUS 5.4 MG/DL (2.5-4.9); SODIUM 155 MMOL/L (136-145)
[2019-04-01] MEDS ORDERED: Piperacillin/Tazobactam 3.375 GM in NS 110 ML IVPB ONE (06:00)
--- NOTE | 2019-04-01 06:38 | Emergency Room Report ---
History of Present Illness General Chief Complaint: Dyspnea/Respdistress Source: Patient, EMS Present Illness HPI This is an 83-year-old male sent in by nursing facility after increased confusion and desaturation. Patient had prior history of bladder cancer. He was noted to have diminished oxygen saturation as well as increased confusion. He had been brought in by EMS. Patient was noted to be less responsive than usual. Patient's O2 sat has been noted to be intermittently in the 80s. Patient was sent in for further evaluation. He had recent hospitalization and had prior bladder surgery. Allergies: Coded Allergies: No Known Allergies (Unverified , 12/20/18) Patient History Past Medical History: see triage record Reviewed Nursing Documentation: PMH: Agreed; PSxH: Agreed Nursing Documentation-PMH Hx Cardiac Problems: Yes - CAD,CHF Hx Hypertension: Yes Hx Diabetes: Yes Hx Cerebrovascular Accident: Yes Review of Systems All Other Systems: limited - Limited by poor historian Physical Exam Vital Signs Date Time Temp Pulse Resp B/P (MAP) Pulse Ox O2 Delivery O2 Flow Rate FiO2 04/01/19 04:43 99.1 60 18 100/70 (80) 96 Room Air General Appearance: non-toxic, obese, Chronically Ill Head: normocephalic Eyes: bilateral eye PERRL ENT: normal voice Neck: limited range of motion Respiratory: chest non-tender, lungs clear, normal breath sounds, no rhonchi Cardiovascular #1: normal inspection, regular rate, rhythm, no edema, no gallop Gastrointestinal: normal inspection, soft Genitourinary: other Musculoskeletal: normal inspection Neurologic: normal inspection, alert, responsive, motor weakness Psychiatric: normal inspection Skin: other - balanitis Medical Decision Making Diagnostic Impression: Primary Impression: Altered mental status Additional Impressions: Urinary tract infection Bladder cancer Acute on chronic renal insufficiency ER Course Patient presented for desaturation. Differential diagnosis included but was not limited to hypertensive episode, seizure, dehydration among others. Patient was noted to have initially altered mental status. EKG interpreted by me showed sinus rhythm with a rate of [address] changes patient had lateral T wave inversion noted. Patient was given IV fluids as well as IV antibiotics after blood cultures were obtained. Patient's urinalysis she did show some evidence of urinary infection. Patient was initially noted to have some improvement in his mental status. Dr. Jamie Gray was contacted for inpatient management due to prior admission. Labs Test 04/01/19 04:45 04/01/19 05:00 04/01/19 05:30 04/01/19 19:36 Arterial Blood pH 7.300 (7.350-7.450) Arterial Blood Partial Pressure CO2 41.8 mmHg (35.0-45.0) Arterial Blood Partial Pressure O2 73.2 mmHg (75.0-100.0) Arterial Blood HCO3 20.1 mmol/L (22.0-26.0) Arterial Blood Oxygen Saturation 91.8 % (95-100) Arterial Blood Base Excess -5.9 (-2-2) Guillaume Test Positive White Blood Count 8.3 K/UL (4.8-10.8) Red Blood Count 2.87 M/UL (4.70-6.10) Hemoglobin 8.0 G/DL (14.2-18.0) Hematocrit 26.4 % (42.0-52.0) Mean Corpuscular Volume 92 FL (80-99) Mean Corpuscular Hemoglobin 28.0 PG (27.0-31.0) Mean Corpuscular Hemoglobin Concent 30.4 G/DL (32.0-36.0) Red Cell Distribution Width 19.9 % (11.6-14.8) Platelet Count 105 K/UL (150-450) Mean Platelet Volume 7.8 FL (6.5-10.1) Neutrophils (%) (Auto) 80.1 % (45.0-75.0) Lymphocytes (%) (Auto) 9.9 % (20.0-45.0) Monocytes (%) (Auto) 9.2 % (1.0-10.0) Eosinophils (%) (Auto) 0.1 % (0.0-3.0) Basophils (%) (Auto) 0.6 % (0.0-2.0) Prothrombin Time 11.4 SEC (9.30-11.50) Prothromb Time International Ratio 1.1 (0.9-1.1) Activated Partial Thromboplast Time 27 SEC (23-33) Sodium Level 155 MMOL/L (136-145) Potassium Level 3.0 MMOL/L (3.5-5.1) Chloride Level 121 MMOL/L (98-107) Carbon Dioxide Level 20 MMOL/L (21-32) Anion Gap 14 mmol/L (5-15) Blood Urea Nitrogen 68 mg/dL (7-18) Creatinine 3.8 MG/DL (0.55-1.30) Estimat Glomerular Filtration Rate mL/min (>60) Glucose Level 269 MG/DL (74-106) Lactic Acid Level 1.10 mmol/L (0.4-2.0) Calcium Level 7.2 MG/DL (8.5-10.1) Phosphorus Level 5.4 MG/DL (2.5-4.9) Magnesium Level 2.4 MG/DL (1.8-2.4) Total Bilirubin 0.3 MG/DL (0.2-1.0) Aspartate Amino Transf (AST/SGOT) 46 U/L (15-37) Alanine Aminotransferase (ALT/SGPT) 8 U/L (12-78) Alkaline Phosphatase 44 U/L (46-116) Total Creatine Kinase 907 U/L (26-308) Creatine Kinase MB 5.6 NG/ML (0.0-3.6) Creatine Kinase MB Relative Index 0.6 Troponin I 0.029 ng/mL (0.000-0.056) C-Reactive Protein, Quantitative 16.7 mg/dL (0.00-0.90) Pro-B-Type Natriuretic Peptide 540 pg/mL (0-125) Total Protein 6.4 G/DL (6.4-8.2) Albumin 1.5 G/DL (3.4-5.0) Globulin 4.9 g/dL Albumin/Globulin Ratio 0.3 (1.0-2.7) Lipase 178 U/L (73-393) Urine Color Brown Urine Appearance Very cloudy Urine pH 5 (4.5-8.0) Urine Specific [place] 1.020 (1.005-1.035) Urine Protein 4+ (NEGATIVE) Urine Glucose (UA) 2+ (NEGATIVE) Urine Ketones 1+ (NEGATIVE) Urine Blood 3+ (NEGATIVE) Urine Nitrite Negative (NEGATIVE) Urine Bilirubin Negative (NEGATIVE) Urine Urobilinogen Normal MG/DL (0.0-1.0) Urine Leukocyte Esterase 3+ (NEGATIVE) Urine RBC 15-20 /HPF (0 - 0) Urine WBC Tntc /HPF (0 - 0) Urine Squamous Epithelial Cells Moderate /LPF (NONE/OCC) Urine Bacteria Many /HPF (NONE) Last Vital Signs Date Time Temp Pulse Resp B/P (MAP) Pulse Ox O2 Delivery O2 Flow Rate FiO2 04/01/19 05:30 99.1 70 18 122/52 100 Room Air Status: improved Disposition: ADMITTED INPATIENT Condition: Stable Referrals: DOMINICK COLLINS (PCP) Rashard Bateman MD Apr 01, 2019 06:38
[2019-04-01] MEDS ORDERED: HYDROCHLOROTH12.5 M2 ORAL (07:15)
[2019-04-01] MEDS ORDERED: ATORVASTATIN CA80 MG ORAL (07:15)
--- NOTE | 2019-04-01 07:15 | NUR ---
ED Nurse Note: Received report from MATT Angela. Observed patient in bed, asleep, arousable to verbal stimuli. VSS. No respiratory distress noted at this time. Will continue to monitor.
[2019-04-01] MEDS ORDERED: NORVASC10 MG ORAL (07:25)
[2019-04-01] MEDS ORDERED: URECHOLINE25 M1 ORAL (07:25)
[2019-04-01] MEDS ORDERED: LEVEMIR100 UNIT/1 SUBQ (07:25)
[2019-04-01] MEDS ORDERED: FLOMAX0.4 MG ORAL (07:25)
[2019-04-01] MEDS ORDERED: ZOFRAN4 M1 ORAL (07:25)
--- NOTE | 2019-04-01 07:41 | NUR ---
ED Nurse Note: Report given to MATT De La Rosa via telephone.
--- NOTE | 2019-04-01 07:50 | NUR ---
TRANSFER TO FLOOR: Patient transferred to Telemetry room 214-1 as ordered, per Dr. Gray. Report given to MATT De La Rosa. Belongings iventoried and signed with receiving nurse. Patient transferred via WILMAN wu protocol. Patient remained stable.
--- NOTE | 2019-04-01 07:50 | NUR ---
NURSE NOTES: PATIENT TRANSFERRED TO THE FLOOR, REPORT GIVEN BY MATT MALHOTRA. PATIENT VITALS ARE STABLE. NO SIGNS OF RESPIRATORY DISTRESS AT THIS TIME. PATIENT IS CONFUSED, HARD TO GAIN ANY INFORMATION FROM PATIENT. " STATED I DON'T NEED TO BE HERE" PATIENT ORIENTED TO THE ROOM AND CALL LIGHT, BED IS LOW AND LOCKED WITH BED ALARM ON. WILL CONTINUE TO MONITOR PATIENT.
[2019-04-01 08:00] VITALS: BP 114/55
[2019-04-01] MEDS ORDERED: Morphine Sulfate 2mg/ml Inj(IV/IM USE ONLY) IVP PRN (08:00)
[2019-04-01] MEDS ORDERED: Albuterol/Ipratropium 3ml neb HHN PRN (08:00)
[2019-04-01] MEDS ORDERED: Miralax 17gm pkt ORAL PRN (08:00)
--- NOTE | 2019-04-01 08:07 | Diagnostic Imaging Report ---
EXAM: XR Chest, 1 View CLINICAL HISTORY: SOB TECHNIQUE: Frontal view of the chest. COMPARISON: 8 12 01 FINDINGS: Lungs: Mild diffuse airspace opacities in both lungs. Lungs are underinflated. Pleural space: Unremarkable. No pneumothorax. Heart: Suspect cardiomegaly. Mediastinum: Unremarkable. Bones joints: Unremarkable. Lymph nodes: Osteopenia. Suspect calcified left hilar mediastinal lymph nodes. IMPRESSION: Lung findings are likely due to underinflation rather than pulmonary edema or atelectasis.
[2019-04-01] MEDS: Heparin 5000 units/ml inj SUBQ SCH ×2 (09:00→21:00)
[2019-04-01] MEDS: Carvedilol 12.5mg tab ORAL SCH ×3 (09:00→21:00)
[2019-04-01] MEDS: Tamsulosin 0.4mg cap ORAL SCH ×4 (09:00→17:17)
[2019-04-01] MEDS ORDERED: Vancomycin 1.25gm/D5W 275ml IVPB SCH ×2 (09:00)
[2019-04-01] MEDS ORDERED: Cefepime HCl 2 GM in D5W 110 ML IV SCH (09:00)
--- NOTE | 2019-04-01 09:43 | Consultation ---
Consult Note Consult Note HPI: 83yo gentleman with PMH below presents from detention with confusion, wheezing and desaturation between 83-90%. Pt is oriented to self. Does not know where he is or why he is in the hospital. He initially says yes to abdominal pain, suprapubic pain, leg pain, arm pain but then denied it on second question. Denies fever, chills, cough, sob, diarrhea, dysuria. Unclear baseline. Pt recently had blood transfusion at [facility] 03/06. Pt was recently diagnosed with bladder cancer 12/2018 ROS: per HPI PMH: CAD CHF Bladder cancer HTN DM CVA Dyslipidemia CKD Anemia BPH Meds: reviewed All: NKDA SHx: No history of cigarette or substance abuse. From detention. FHx: noncontributory VS: reviewed Gen: NAD HEENT: anicteric sclera CV: RRR Resp: RRR Abd: normoactive Bs+. Soft. No TTP Back: no flank pain Neuro: AAOx1 Labs: reviewed Assessment: 83yo gentleman with PMH below presents from detention with confusion, wheezing and desaturation between 83-90%. Afebrile On RA No leukocytosis No lactic acidosis Hypoxia at detention, SP Possible PNA? flu swab negative CXR: Mild diffuse airspace opacities in both lungs. Lungs are underinflated.Lung findings are likely due to underinflation rather than pulmonary edema or atelectasis. Possible UTI? UA WBC TNTC, also moderate epithelial cells UCx: P r/o bacteremia BCx: P Hypokalemia ANGELA on CKD CAD Bladder cancer HTN DM CVA Dyslipidemia CKD Anemia BPH Plan: continue cefepime and vancomycin #1 f/u bcx f/u ucx aspiration precaution, elevate HOB monitor temp and CBC Thank you for this consult. [facility] will continue to follow the patient with you. Ashley Wasserman MD Apr 01, 2019 09:43
--- NOTE | 2019-04-01 10:05 | NUR ---
NURSE NOTES: PATIENT AWAKE AND ALERT ORIENTED TO PERSON ONLY. PATIENT IS REFUSING MEDICATIONS. CRUSHED MEDS AND PUT INTO APPLE SAUCE HOWEVER UNSUCCESSFUL IN ADMINISTERING MEDS.
--- NOTE | 2019-04-01 10:27 | Consultation ---
History of Present Illness General Date patient seen: Apr 01, 2019 Time patient seen: 09:00 Chief Complaint: Dyspnea/Respdistress Referring physician: Dr Gray Reason for Consultation: hypoxia Present Illness HPI 83 years old male, resident of assisted facility, with past medical history of bladder cancer, hypertension, CVA, diabetes mellitus, coronary artery disease, dysphagia, presented from assisted for evaluation due to hypoxia and altered mental status. Upon evaluation in ED pulse oximetry was stable on room air. Chest x-ray revealed pulmonary edema versus atelectasis. Evidence of osteopenia. Urinalysis was grossly positive for UTI. Laboratory work-up revealed no leukocytosis , hemoglobin 8.0, hematocrit 26.4 , platelet count 105 Chemistry demonstrated evidence of renal failure with BUN 68, creatinine 3.8. Sodium 155. Potassium 3.0. Sodium 121. Lactic acid 1.1. AST 46, ALT 8. Troponin - 0.029. pro BNP 540. EKG revealed sinus rhythm. no acute ischemic changes. Albumin 1.5. Pulmonary consult was requested to assist in management of this patient. Allergies: Coded Allergies: No Known Allergies (Unverified , 12/20/18) Medication History Scheduled Amlodipine Besylate (Norvasc), 10 MG ORAL DAILY, (Reported) Atorvastatin Calcium* (Lipitor*), 80 MG ORAL BEDTIME, (Reported) Bethanechol Chl* (Urecholine*), 25 MG ORAL THREE TIMES A DAY, (Reported) Carvedilol (Coreg), 12.5 MG ORAL EVERY 12 HOURS, (Reported) Clonidine Hcl* (Catapres*), 0.2 MG ORAL Q8HR, (Reported) Dutasteride (Avodart), 0.5 MG ORAL DAILY, (Reported) Furosemide* (Lasix*), 40 MG ORAL TWICE A DAY, (Reported) Hydralazine HCl (Hydralazine HCl), 100 MG ORAL Q8HR Hydralazine Hcl* (Hydralazine Hcl*), 50 MG ORAL BID, (Reported) Hydrochlorothiazide* (Hydrochlorothiazide*), 12.5 MG ORAL DAILY, (Reported) Insulin Detemir (Levemir), 18 SUBQ BEDTIME, (Reported) Isosorbide Dinitrate* (Isordil*), 20 MG ORAL DAILY, (Reported) Tamsulosin HCl (Flomax), 0.4 MG ORAL DAILY, (Reported) Vitamin B Complex (Vitamin B Complex), 1 CAP ORAL DAILY, (Reported) Scheduled PRN Magnesium Hydroxide* (Milk Of Magnesia*), 30 ML ORAL EVERY 6 HOURS PRN for stomach upset, (Reported) Ondansetron (Zofran), 4 MG ORAL Q6H PRN for Nausea & Vomiting, (Reported) Discontinued Medications Acetaminophen* (Acetaminophen 325MG Tablet*), 650 MG ORAL Q4H PRN for For Pain, (Reported) Discontinued Reason: Therapy completed Amlodipine Besylate* (Amlodipine Besylate*), 10 MG ORAL DAILY, (Reported) Discontinued Reason: Therapy completed Atorvastatin Calcium* (Atorvastatin Calcium*), 80 MG ORAL BEDTIME, (Reported) Discontinued Reason: Therapy completed Bisacodyl* (Dulcolax*), 5 MG ORAL DAILY, (Reported) Discontinued Reason: Therapy completed Losartan Potassium* (Losartan Potassium*), 100 MG ORAL DAILY, (Reported) Discontinued Reason: Therapy completed Minoxidil (Minoxidil), 2.5 MG ORAL Q4H PRN Discontinued Reason: Therapy completed Tamsulosin HCl (Flomax), 0.4 MG ORAL BID Discontinued Reason: Therapy completed Patient History History Provided By: Medical Record Healthcare decision maker Resuscitation status Advanced Directive on File Past Medical/Surgical History Past Medical/Surgical History: (1) HTN (hypertension) (2) Bladder mass (3) CAD (coronary artery disease) (4) CHF (congestive heart failure) (5) Diabetes (6) Anemia Review of Systems ROS Narrative not available due to patient altered mental status Physical Exam General Appearance: other - confused, drowsy AA male in NAD Lines, tubes and drains: peripheral HEENT: normocephalic, atraumatic, anicteric Neck: limited range of motion Respiratory/Chest: lungs clear - with moderate air exchange Cardiovascular/Chest: normal peripheral pulses, normal rate Abdomen: non tender, soft Extremities: no calf tenderness Skin Exam: warm/dry Neurologic: abnormal gait, other - drowsy but arousable, not verbally responsive at thsi time Musculoskeletal: atrophy Last 24 Hour Vital Signs Date Time Temp Pulse Resp B/P (MAP) Pulse Ox O2 Delivery O2 Flow Rate FiO2 04/01/19 10:11 77 114/55 04/01/19 10:11 77 114/55 04/01/19 08:00 97.2 77 18 114/55 (74) 96 04/01/19 07:55 98.2 82 18 131/72 100 04/01/19 05:30 99.1 70 18 122/52 100 Room Air 04/01/19 05:15 60 18 Room Air 04/01/19 04:43 99.1 60 18 100/70 (80) 96 Room Air Intake and Output 03/31/19 04/01/19 19:00 07:00 Output Total 100 ml Balance -100 ml Output Urine Total 100 ml Laboratory Tests Test 04/01/19 04:45 04/01/19 05:00 04/01/19 05:30 Arterial Blood pH 7.300 (7.350-7.450) Arterial Blood Partial Pressure CO2 41.8 mmHg (35.0-45.0) Arterial Blood Partial Pressure O2 73.2 mmHg (75.0-100.0) L Arterial Blood HCO3 20.1 mmol/L (22.0-26.0) L Arterial Blood Oxygen Saturation 91.8 % (95-100) L Arterial Blood Base Excess -5.9 (-2-2) L Guillaume Test Positive White Blood Count 8.3 K/UL (4.8-10.8) Red Blood Count 2.87 M/UL (4.70-6.10) L Hemoglobin 8.0 G/DL (14.2-18.0) L Hematocrit 26.4 % (42.0-52.0) L Mean Corpuscular Volume 92 FL (80-99) Mean Corpuscular Hemoglobin 28.0 PG (27.0-31.0) Mean Corpuscular Hemoglobin Concent 30.4 G/DL (32.0-36.0) L Red Cell Distribution Width 19.9 % (11.6-14.8) H Platelet Count 105 K/UL (150-450) L Mean Platelet Volume 7.8 FL (6.5-10.1) Neutrophils (%) (Auto) 80.1 % (45.0-75.0) H Lymphocytes (%) (Auto) 9.9 % (20.0-45.0) L Monocytes (%) (Auto) 9.2 % (1.0-10.0) Eosinophils (%) (Auto) 0.1 % (0.0-3.0) Basophils (%) (Auto) 0.6 % (0.0-2.0) Prothrombin Time 11.4 SEC (9.30-11.50) Prothromb Time International Ratio 1.1 (0.9-1.1) Activated Partial Thromboplast Time 27 SEC (23-33) Sodium Level 155 MMOL/L (136-145) H Potassium Level 3.0 MMOL/L (3.5-5.1) L Chloride Level 121 MMOL/L (98-107) H Carbon Dioxide Level 20 MMOL/L (21-32) L Anion Gap 14 mmol/L (5-15) Blood Urea Nitrogen 68 mg/dL (7-18) H Creatinine 3.8 MG/DL (0.55-1.30) H Estimat Glomerular Filtration Rate mL/min (>60) Glucose Level 269 MG/DL (74-106) H Lactic Acid Level 1.10 mmol/L (0.4-2.0) Calcium Level 7.2 MG/DL (8.5-10.1) L Phosphorus Level 5.4 MG/DL (2.5-4.9) H Magnesium Level 2.4 MG/DL (1.8-2.4) Total Bilirubin 0.3 MG/DL (0.2-1.0) Aspartate Amino Transf (AST/SGOT) 46 U/L (15-37) H Alanine Aminotransferase (ALT/SGPT) 8 U/L (12-78) L Alkaline Phosphatase 44 U/L (46-116) L Total Creatine Kinase 907 U/L (26-308) H Creatine Kinase MB 5.6 NG/ML (0.0-3.6) H Creatine Kinase MB Relative Index 0.6 Troponin I 0.029 ng/mL (0.000-0.056) Pro-B-Type Natriuretic Peptide 540 pg/mL (0-125) H Total Protein 6.4 G/DL (6.4-8.2) Albumin 1.5 G/DL (3.4-5.0) L Globulin 4.9 g/dL Albumin/Globulin Ratio 0.3 (1.0-2.7) L Lipase 178 U/L (73-393) Urine Color Brown Urine Appearance Very cloudy Urine pH 5 (4.5-8.0) Urine Specific [place] 1.020 (1.005-1.035) Urine Protein 4+ (NEGATIVE) H Urine Glucose (UA) 2+ (NEGATIVE) H Urine Ketones 1+ (NEGATIVE) H Urine Blood 3+ (NEGATIVE) H Urine Nitrite Negative (NEGATIVE) Urine Bilirubin Negative (NEGATIVE) Urine Urobilinogen Normal MG/DL (0.0-1.0) Urine Leukocyte Esterase 3+ (NEGATIVE) H Urine RBC 15-20 /HPF (0 - 0) H Urine WBC Tntc /HPF (0 - 0) H Urine Squamous Epithelial Cells Moderate /LPF (NONE/OCC) H Urine Bacteria Many /HPF (NONE) H Microbiology Date/Time Source Procedure Growth Status 04/01/19 05:30 Nasal Nares - Final Complete 04/01/19 05:30 Nasal Nares - Final Complete Height (Feet): 5 Height (Inches): 10.00 Weight (Pounds): 170 Medications Current Medications Medications (Trade) Dose Ordered Sig/Sallie Route PRN Reason Start Time Stop Time Status Last Admin Dose Admin Acetaminophen (Tylenol) 650 mg Q4H PRN ORAL fever 04/01/19 08:00 05/01/19 07:59 Albuterol/ Ipratropium (Albuterol/ Ipratropium) 3 ml Q4HRT PRN HHN Shortness of Breath 04/01/19 08:00 04/06/19 07:59 Amlodipine Besylate (Norvasc) 10 mg DAILY ORAL 04/01/19 09:00 05/01/19 08:59 04/01/19 10:11 Carvedilol (Coreg) 12.5 mg EVERY 12 HOURS ORAL 04/01/19 09:00 05/01/19 08:59 04/01/19 10:11 Cefepime HCl 1 gm/ Dextrose 55 ml @ 110 mls/hr Q24H IVPB 04/01/19 12:00 04/08/19 11:59 Clonidine HCl (Catapres tab) 0.2 mg Q8HR ORAL 04/01/19 14:00 05/01/19 13:59 Heparin Sodium (Porcine) (Heparin 5000 units/ml) 5,000 units EVERY 12 HOURS SUBQ 04/01/19 09:00 05/01/19 08:59 Hydralazine HCl (Apresoline) 100 mg Q8HR ORAL 04/01/19 14:00 05/01/19 13:59 Morphine Sulfate (Morphine Sulfate) 2 mg Q4H PRN IVP Moderate Pain (Pain Scale 4-6) 04/01/19 08:00 04/08/19 07:59 Ondansetron HCl (Zofran) 4 mg Q6H PRN IVP Nausea & Vomiting 04/01/19 08:00 05/01/19 07:59 Phenazopyridine HCl (Pyridium) 100 mg DAILY PRN ORAL dysuria 04/01/19 08:00 05/01/19 07:59 UNV Polyethylene Glycol (Miralax) 17 gm DAILYPRN PRN ORAL Constipation 04/01/19 08:00 05/01/19 07:59 Tamsulosin HCl (Flomax) 0.4 mg DAILY ORAL 04/01/19 09:00 05/01/19 08:59 04/01/19 10:11 Temazepam (Restoril) 15 mg HSPRN PRN ORAL Insomnia 04/01/19 08:00 04/08/19 07:59 Vancomycin HCl (Vanco rx to dose) 1 ea DAILY PRN MISC Per rx protocol 04/01/19 08:15 05/01/19 08:14 Vancomycin HCl 1.25 gm/Dextrose 275 ml @ 183.33 mls/ hr ONCE IVPB 04/01/19 09:00 04/01/19 11:00 04/01/19 10:12 Assessment/Plan Assessment/Plan: ASSESSMENT Hypoxia- resolved Urinary tract infection High aspiration risk, rule out pneumonia Acute toxic metabolic encephalopathy Acute renal failure versus chronic kidney disease , secondary to bladder cancer Anemia Dehydration Hypernatremia Thrombocytopenia Diabetes mellitus Hypertension History of CVA Coronary artery disease Protein calorie malnutrition PLAN OF CARE tele O2 titrate to keep pusle ox above 92% pulmonary toilet with bronchodilator fup with CXR asp precautions swallow eval Venous Duplex BLE rule out DVT given malignancy ; if negative start SCD no heparin given anemia and thrombocytopenia empiric abx as per ID recs fup with cx monitor renal parameters and electrolytes avoid nephrotoxic monitor H&H with goal to keep hemoglobin above 7 anemia work-up BS management with SSI check hemoglobin A1c BP management with multiply antihypertensive regimen, optimize further as needed dietary eval supportive care case discussed and evaluated by supervising physician Lacey Brenner NP Apr 01, 2019 10:27
--- NOTE | 2019-04-01 11:00 | NUR ---
NURSE NOTES: NOTIFIED DR WILLS PER PATIENTS LAB RESULTS, POTASSIUM IS LOW AND SODIUM IS HIGH, ALSO ALERTED THAT PATIENT REFUSED HIS MORNING MEDICATIONS. DID NOT GET A REPLY FROM JOHANN SO ALSO CONTACTED REKHA HIS ACUPUNCTURIST. ACUPUNCTURIST REPLIED AND WILL PUT IN ORDERS FOR POTASSIUM, ALSO STATED SHE WOULD CONSULT NEPHROLOGY PATIENT IS IN RENAL FAILURE.
[2019-04-01] MEDS: Cefepime 1gm in D5W 55ml IVPB SCH (12:07)
[2019-04-01] MEDS: NovoLOG Insulin Flexpen SUBQ SCH ×3 (12:08→22:05)
[2019-04-01] MEDS ORDERED: Minoxidil 2.5mg tab ORAL PRN (12:15)
--- NOTE | 2019-04-01 12:17 | Consultation ---
Consult Note Consult Note asked to eval at the request of Dr Gray for renal failure- Known to me from his previous admission This is an 83-year-old male sent in by nursing facility after increased confusion and desaturation. Patient had prior history of bladder cancer. He was noted to have diminished oxygen saturation as well as increased confusion. He had been brought in by EMS. Patient was noted to be less responsive than usual. Patient's O2 sat has been noted to be intermittently in the 80s. Patient was sent in for further evaluation. He had recent hospitalization and had prior bladder surgery. No Known Allergies (Unverified , 12/20/18) Hx Cardiac Problems: Yes - CAD,CHF Hx Hypertension: Yes Hx Diabetes: Yes Hx Cerebrovascular Accident: Yes examined data reviewed Assessment/Plan Acute renal failure ? Superimposed CKD Bladder Mass / h/o Hematuria HTN DM Anemia, previous transfusions s/p Cystoscopy 12/28 Plan: Hydrate K Supplement BP management Monitor lytes and renal parameters Kidney ESDRAS per orders Previous Uro note: Tolerated bladder tumor resection well. Unfortunately greater part of the bladder is involved and essentially replaced all normal bladder with tumor. I can not resect all the tumors. Patient needs a radical cystectomy (removal of bladder) or radiation/chemotherapy at higher level of care. 1. recommend transfer to higher level of care for cystectomy 2. continue richardson, keep irrigation to maintain light pink urine. Multiple masslike lesions within the bladder. Further evaluation with cystoscopy is recommended to evaluate for possible neoplasm. Multiple parapelvic renal cysts Russell Sofia MD Apr 01, 2019 12:17
[2019-04-01 12:28] VITALS: BP 141/76
[2019-04-01] MEDS: Docusate 100mg cap ORAL SCH ×2 (12:58→17:17)
[2019-04-01] MEDS ORDERED: cloNIDine 0.2mg Tab ORAL SCH (14:00)
[2019-04-01] MEDS ORDERED: HydrALAZINE 50mg tab ORAL SCH (14:00)
[2019-04-01] MEDS: HydrALAZINE 50mg tab ORAL SCH ×2 (14:28→22:00)
--- NOTE | 2019-04-01 15:00 | History and Physical Report ---
DATE OF ADMISSION: 04/01/2019 TIME SEEN: 8 a.m. CONSULTANTS: 1. Adam Moyer M.D. 2. Russell Sofia M.D. 3. Trever Mcallister M.D. 4. Kiko Tejada M.D. 5. Xavier Triplett M.D. 6. Demarcus Martinez M.D. CHIEF COMPLAINT: Hypoxia, altered mental status, and desaturation. BRIEF HISTORY: This is an 83-year-old male from [facility], presented with above-mentioned diagnosis. Currently very sleepy in bed, not answering questions. Therefore, history obtained mostly from chart. He came in hypoxic, confused, diagnosed the above, admitted to telemetry for further care. PAST MEDICAL HISTORY: Includes bladder cancer, urinary retention, hypertension, diabetes, CVA, renal failure, CAD. PAST SURGICAL HISTORY: TURP. ALLERGIES: Denies. SOCIAL HISTORY: Unable to obtain secondary to the patient's condition. REVIEW OF SYSTEMS: Not available. PHYSICAL EXAMINATION: GENERAL: Lethargic in bed, severe, nonverbal. VITAL SIGNS: Temperature 97 degrees, pulse 77, respirations 18, blood pressure 114/55. CARDIOVASCULAR: No murmur. LUNGS: Poor air exchange. ABDOMEN: Bowel sound positive. Nontender. Nondistended. EXTREMITIES: No cyanosis, clubbing, or edema. NEUROLOGIC: The patient is flaccid in bed, not following directions. LABORATORY AND DIAGNOSTIC DATA: Labs at this time show hemoglobin and hematocrit 8/26, otherwise CBC is normal. BMP show sodium 155, potassium 3.0, chloride 121, CO2 20, BUN/creatinine 60/3.8, calcium 7.2. Troponin 0.029. Albumin 1.5. INR is 1.1. Urinalysis showed 3+ leukocyte esterase. MEDICATIONS: Include vancomycin, clonidine, hydralazine, cefepime, amlodipine, carvedilol, tamsulosin, insulin, heparin, albuterol, morphine, Zofran. ASSESSMENT: Hypoxia, altered mental status, bladder cancer, desaturation, urine retention, anemia, UTI, malnutrition, renal failure, hypertension, diabetes, CVA, and CAD. PLAN: 1. O2 and pulmonary treatment. 2. Antibiotics per Infectious Disease. 3. Blood pressure and blood sugar control. 4. Dietary followup. 5. Resume home medications. 6. PT and dietary eval. 7. CBC and BMP in the morning. Jamie Gray D.O. DR: EVELIN JOB#: [id number] CC:
[2019-04-01 16:00] VITALS: BP 105/61
--- NOTE | 2019-04-01 19:47 | NUR ---
HAND-OFF: Report given to MATT FONSECA.
--- NOTE | 2019-04-01 19:48 | NUR ---
NURSE NOTES: Received report from Rj GUTIERREZ. PT is AO x1. Pt is in the bed. Calm and comfortable. Oriented to the room. Pt is on monitor technician. Rails are up x3. Bed alarm is on. Call light is next to the pt. Will follow the plan of care.
[2019-04-01 20:00] VITALS: BP 110/59
--- NOTE | 2019-04-01 22:15 | Consultation ---
DATE OF CONSULTATION: 04/01/2019 UROLOGY CONSULTATION CONSULTING PHYSICIAN: Demarcus Martinez M.D. ATTENDING/REFERRING PHYSICIAN: Jamie Gray D.O. CHIEF COMPLAINT/HISTORY OF PRESENT ILLNESS: I was asked by Dr. Gray to evaluate 83-year-old gentleman regarding history of bladder cancer and urinary tract infection. Briefly, the patient appears to have a history of bladder cancer. He is unable to provide any information and most information is gathered from the chart. Upon multiple times to question the patient, he just stares blankly at the position. He also appears to have a history of TURP or TURBT done although I have no details as to prior surgery. It is unclear as to who his regular urologist is. PAST MEDICAL HISTORY: 1. Reported bladder cancer. 2. Urinary retention. 3. Hypertension. 4. Diabetes. 5. Stroke. 6. Renal insufficiency. 7. Coronary artery disease. PAST SURGICAL HISTORY: TURP versus TURBT. MEDICATIONS: Please see the chart for current medications and administration details. Briefly, the patient is on cefepime and vancomycin for antibiotic coverage. ALLERGIES: No known drug allergies. SOCIAL HISTORY: Unobtainable as the patient cannot cooperate with questioning. FAMILY HISTORY: Unobtainable. REVIEW OF SYSTEMS: A 14-system review of systems cannot be done as the patient cannot answer any questions. PHYSICAL EXAMINATION: GENERAL: The patient is older gentleman, awake and alert but unable to answer any questions, uncertain of orientation, no obvious distress. HEENT: NC/AT. NECK: Supple. Oropharynx clear. Chest within normal limits. ABDOMEN: Soft, nontender, and nondistended. Somewhat obese. EXTREMITIES: Warm and well perfused. No cyanosis, clubbing, or edema. NEUROLOGIC: Notable for inability to cooperate with questioning but is otherwise deferred as the patient cannot cooperate with the exam. GENITOURINARY: Uncircumcised male phallus. No discharge lesions or curvature. There are bilateral descended testes and cord structures. No masses or tenderness to palpation. LABORATORY DATA: White blood cell count 8.3, hematocrit 26.4, platelets 105. PT, PTT, INR within normal limits. Sodium 155, potassium 3.0, chloride 121, bicarb 20, BUN 68, creatinine 3.8, glucose 269, calcium 7.2. LFTs within normal limits. CK 907, CK-MB 5.6. Troponin 0.03. Lactic acid 1.1. Urinalysis, specific gravity 1.020, pH 5.0. Dip test notable for 1+ protein, 1+ ketones, 2+ glucose, 3+ occult blood, 3+ leukocyte esterase. Microanalysis with too numerous to count white and 15 to 25 red blood cells per high-power field, and many bacteria seen. Urine culture is pending. DIAGNOSTIC IMAGING: Chest x-ray underinflation of the lungs, other findings as noted. Previous CT scan done in December reveals abnormal urinary bladder with multiple nodular mass lesions consistent with a history of bladder cancer. Other findings as noted. ASSESSMENT AND PLAN: In summary, the patient is an 83-year-old gentleman with a history of bladder cancer status post likely TURBT in the past. He presents to the hospital with evidence of urinary tract infection, altered mental status, and metabolic disarray. He also has renal insufficiency with a creatinine of 3.8. Physical exam reveals elderly gentleman who cannot cooperate with questioning but who does not appear to be in any distress. Laboratory data is notable for renal insufficiency and evidence of urinary tract infection and culture is pending. The patient has been started on cefepime and vancomycin for antibiotic coverage. Previous CT scan in December reveals evidence of bladder lesions consistent with bladder cancer. It appears that the patient has undergone TURBT for the same in the past. I will treat this patient's urinary infection with cefepime and vancomycin as it has been done. Per the culture results, antibiotics can be adjusted. He received 7 to 10 days total antibiotic coverage. Once his infection is treated, if he is otherwise stable, he can follow up as an outpatient regarding his bladder cancer and need for further measures for the same. Thank you for allowing me to participate in the care of this unfortunate gentleman. Please do not hesitate to contact me for any questions that you may further have regarding his care. I will see him with you as needed. Demarcus Martinez M.D. DR: Vincent JOB#: [id number] CC:
[2019-04-02] VITALS: BP 120/66
[2019-04-02] MEDS ORDERED: Vancomycin 1 GM in D5W 275 ML IV SCH (00:30)
[2019-04-02 04:00] VITALS: BP 149/66
[2019-04-02] MEDS: HydrALAZINE 50mg tab ORAL SCH ×3 (06:11→22:00)
[2019-04-02] MEDS: NovoLOG Insulin Flexpen SUBQ SCH ×4 (06:15→21:24)
--- NOTE | 2019-04-02 06:58 | NUR ---
NURSE NOTES: NO urine output last 12 hours. Bladder scan done and shows 0 ml urine in the bladder. MD Sofia notified by leaving msg about above clinical findings. Call back number provided.
--- NOTE | 2019-04-02 07:31 | NUR ---
NURSE NOTES: Received report from Moise GUTIERREZ. Pt in bed awake and orientedx1 to himself. No c/o pain. No SOB noted. O2 saturated with 94% on room air. Bed in its lowest position and locked. Side rails x3 up for safety. Call light within easy reach. IV site in RH 20G, LH 22G SL and LAC 22G running with 1/2NS @100CC/HR patent and asymptomatic. Will continue to plan of care.
--- NOTE | 2019-04-02 07:31 | NUR ---
HAND-OFF: Report given to Nubia Altman RN. Plan of care endorsed.
--- NOTE | 2019-04-02 07:41 | Infectious Diseases Prog Note ---
Assessment/Plan Assessment/Plan 83yo gentleman with PMH below presents from assisted with confusion, wheezing and desaturation between 83-90%. Pt is oriented to self. Does not know where he is or why he is in the hospital. He initially says yes to abdominal pain, suprapubic pain, leg pain, arm pain but then denied it on second question. Denies fever, chills, cough, sob, diarrhea, dysuria. Unclear baseline. Pt recently had blood transfusion at [facility] 03/06. Pt was recently diagnosed with bladder cancer 12/2018 Afebrile On RA No leukocytosis No lactic acidosis Hypoxia at assisted, SP Possible PNA? flu swab negative CXR: Mild diffuse airspace opacities in both lungs. Lungs are underinflated.Lung findings are likely due to underinflation rather than pulmonary edema or atelectasis. Possible UTI? UA WBC TNTC, also moderate epithelial cells UCx: P r/o bacteremia BCx: P Hypokalemia ANGELA on CKD CAD Bladder cancer HTN DM CVA Dyslipidemia CKD Anemia BPH Plan: continue cefepime and vancomycin #2 f/u bcx f/u ucx f/u MRSA screen aspiration precaution, elevate HOB monitor temp and CBC Thank you for this consult. [facility] will continue to follow the patient with you. Ashley Wasserman MD Apr 01, 2019 09:43 Subjective Allergies: Coded Allergies: No Known Allergies (Unverified , 12/20/18) Subjective afebrile. New richardson placed. no complaints Objective Vital Signs Last 24 Hour Vital Signs Date Time Temp Pulse Resp B/P (MAP) Pulse Ox O2 Delivery O2 Flow Rate FiO2 04/02/19 06:11 122/68 04/02/19 06:00 122/68 04/02/19 04:00 68 04/02/19 04:00 97.8 64 20 149/66 (93) 97 04/02/19 00:00 98.8 78 20 120/66 (84) 100 04/02/19 00:00 78 04/01/19 22:00 105/59 04/01/19 22:00 105/59 04/01/19 21:00 76 105/42 04/01/19 21:00 Room Air 04/01/19 20:00 98.5 72 20 110/59 (76) 100 11/17/19 20:00 78 04/01/19 16:00 75 04/01/19 16:00 98.7 75 20 105/61 (76) 97 04/01/19 14:28 141/76 04/01/19 14:28 141/76 04/01/19 12:28 97.2 79 18 141/76 (97) 91 04/01/19 12:00 67 04/01/19 10:51 Nasal Cannula 2.0 04/01/19 08:00 97.2 77 18 114/55 (74) 96 04/01/19 07:55 98.2 82 18 131/72 100 Height (Feet): 5 Height (Inches): 9.00 Weight (Pounds): 244 Objective Gen: NAD HEENT: anicteric sclera CV: RRR Resp: RRR Abd: normoactive Bs+. Soft. No TTP Back: no flank pain Neuro: AAOx1 Microbiology Date/Time Source Procedure Growth Status 04/01/19 05:30 Nasal Nares - Final Complete 04/01/19 05:30 Nasal Nares - Final Complete 04/01/19 05:30 Urine,Clean Catch Urine Culture - Preliminary Resulted Laboratory Tests Test 04/01/19 19:36 Stool Occult Blood Pending Current Medications Medications (Trade) Dose Ordered Sig/Sallie Route PRN Reason Start Time Stop Time Status Last Admin Dose Admin Acetaminophen (Tylenol) 650 mg Q4H PRN ORAL fever 04/01/19 08:00 05/01/19 07:59 Albuterol/ Ipratropium (Albuterol/ Ipratropium) 3 ml Q4HRT PRN HHN Shortness of Breath 04/01/19 08:00 04/06/19 07:59 Amlodipine Besylate (Norvasc) 2.5 mg DAILY ORAL 04/02/19 09:00 05/01/19 08:59 Carvedilol (Coreg) 12.5 mg EVERY 12 HOURS ORAL 04/01/19 09:00 05/01/19 08:59 Cefepime HCl 1 gm/ Dextrose 55 ml @ 110 mls/hr Q24H IVPB 04/01/19 12:00 04/08/19 11:59 04/01/19 12:07 Clonidine HCl (Catapres Tab) 0.1 mg Q8HR ORAL 04/01/19 14:00 05/01/19 13:59 11/17/19 14:28 Dextrose (Dextrose 50%) 25 ml Q30M PRN IV Hypoglycemia 04/01/19 10:30 05/01/19 10:29 Dextrose (Dextrose 50%) 50 ml Q30M PRN IV Hypoglycemia 04/01/19 10:30 05/01/19 10:29 Docusate Sodium (Colace) 100 mg THREE TIMES A DAY ORAL 04/01/19 13:00 05/01/19 12:59 Heparin Sodium (Porcine) (Heparin 5000 units/ml) 5,000 units EVERY 12 HOURS SUBQ 04/01/19 09:00 05/01/19 08:59 Hydralazine HCl (Apresoline) 50 mg Q8HR ORAL 04/01/19 14:00 05/01/19 13:59 04/02/19 06:11 Insulin Aspart (NovoLOG) BEFORE MEALS AND HS SUBQ 04/01/19 11:30 05/01/19 11:29 04/02/19 06:15 Minoxidil (Loniten) 2.5 mg Q4H PRN ORAL bp over 165 syst 04/01/19 12:15 05/01/19 12:14 Morphine Sulfate (Morphine Sulfate) 2 mg Q4H PRN IVP Moderate Pain (Pain Scale 4-6) 04/01/19 08:00 04/08/19 07:59 Ondansetron HCl (Zofran) 4 mg Q6H PRN IVP Nausea & Vomiting 04/01/19 08:00 05/01/19 07:59 Pantoprazole (Protonix) 40 mg EVERY 12 HOURS ORAL 04/01/19 21:00 05/01/19 20:59 04/01/19 21:08 Polyethylene Glycol (Miralax) 17 gm DAILYPRN PRN ORAL Constipation 04/01/19 08:00 05/01/19 07:59 Potassium Chloride (K-Dur) 40 meq DAILY ORAL 04/01/19 13:00 05/01/19 12:59 04/01/19 12:55 Sodium Chloride 1,000 ml @ 100 mls/hr Q10H IV 04/01/19 12:45 05/01/19 12:44 04/01/19 23:00 Tamsulosin HCl (Flomax) 0.4 mg BID ORAL 04/01/19 13:00 05/01/19 12:59 04/01/19 17:17 Temazepam (Restoril) 15 mg HSPRN PRN ORAL Insomnia 04/01/19 08:00 04/08/19 07:59 Vancomycin HCl (Vanco rx to dose) 1 ea DAILY PRN MISC Per rx protocol 04/01/19 08:15 05/01/19 08:14 Ashley Wasserman MD Apr 02, 2019 07:41
[2019-04-02 08:00] VITALS: BP 108/57
[2019-04-02 08:27] LABS: HEMATOCRIT 26.2 % (42.0-52.0); HEMOGLOBIN 8.2 G/DL (14.2-18.0); MEAN CORPUSCULAR VOLUME 90 FL (80-99); PLATELET COUNT 88 K/UL (150-450); RED BLOOD COUNT 2.91 M/UL (4.70-6.10); RED CELL DISTRIBUTION WIDTH 18.4 % (11.6-14.8); WHITE BLOOD COUNT 6.8 K/UL (4.8-10.8)
[2019-04-02] MEDS: Tamsulosin 0.4mg cap ORAL SCH ×2 (08:38→17:16)
[2019-04-02] MEDS: Docusate 100mg cap ORAL SCH ×3 (08:39→17:18)
[2019-04-02] MEDS: Carvedilol 12.5mg tab ORAL SCH ×3 (08:39→21:22)
[2019-04-02] MEDS: Heparin 5000 units/ml inj SUBQ SCH ×2 (08:40→21:00)
[2019-04-02 08:51] LABS: APPEARANCE,URINE CLOUDY; BILIRUBIN, URINE NEGATIVE (NEGATIVE); GLUCOSE, URINE (UA) 2+ (NEGATIVE); KETONES,URINE 1+ (NEGATIVE); LEUKOCYTE ESTERASE ,URINE 3+ (NEGATIVE); NITRITE,URINE NEGATIVE (NEGATIVE); PH,URINE 6 (4.5-8.0); PROTEIN,URINE 3+ (NEGATIVE); UROBILINOGEN,URINE NORMAL MG/DL (0.0-1.0)
[2019-04-02 08:55] LABS: ALANINE AMINOTRANSFERASE 10 U/L (12-78); ALBUMIN 1.5 G/DL (3.4-5.0); ALBUMIN/GLOBULIN RATIO 0.3 (1.0-2.7); ALKALINE PHOSPHATASE 52 U/L (46-116); ANION GAP 15 mmol/L (5-15); ASPARTATE AMINO TRANSFERASE 34 U/L (15-37); BILIRUBIN,TOTAL 0.3 MG/DL (0.2-1.0); BLOOD UREA NITROGEN 74 mg/dL (7-18); CALCIUM 7.2 MG/DL (8.5-10.1); CARBON DIOXIDE 19 MMOL/L (21-32); CHLORIDE 118 MMOL/L (98-107); CREATININE 3.7 MG/DL (0.55-1.30); POTASSIUM 2.7 MMOL/L (3.5-5.1); SODIUM 152 MMOL/L (136-145)
[2019-04-02 08:58] LABS: COLOR,URINE YELLOW
[2019-04-02 09:09] LABS: % IRON SATURATION 16 % (15-50); IRON 13 ug/dL (50-175); TOTAL IRON BINDING CAPACITY 82 ug/dL (250-450)
--- NOTE | 2019-04-02 09:38 | General Progress Note ---
Assessment/Plan Problem List: (1) Hypertension ICD Codes: I10 - Essential (primary) hypertension SNOMED: 89096302 (2) ATN (acute tubular necrosis) ICD Codes: N17.0 - Acute kidney failure with tubular necrosis SNOMED: 57935864 (3) Weak ICD Codes: R53.1 - Weakness SNOMED: 32646918 (4) Invasive carcinoma of urinary bladder ICD Codes: C67.9 - Malignant neoplasm of bladder, unspecified SNOMED: 036300014 (5) Anemia ICD Codes: D64.9 - Anemia, unspecified SNOMED: 468454611 (6) Diabetes ICD Codes: E11.9 - Type 2 diabetes mellitus without complications SNOMED: 74383205 (7) HTN (hypertension) ICD Codes: I10 - Essential (primary) hypertension SNOMED: 74108782 (8) Bladder mass ICD Codes: N32.89 - Other specified disorders of bladder SNOMED: 217799921 (9) Dyspnea ICD Codes: R06.00 - Dyspnea, unspecified SNOMED: 665598253 (10) Respiratory distress ICD Codes: R06.03 - Acute respiratory distress SNOMED: 405196577 (11) Urinary tract infection ICD Codes: N39.0 - Urinary tract infection, site not specified SNOMED: 39597683 (12) Bladder cancer ICD Codes: C67.9 - Malignant neoplasm of bladder, unspecified SNOMED: 563067513 (13) Altered mental status ICD Codes: R41.82 - Altered mental status, unspecified SNOMED: 836799839 Status: unchanged Assessment/Plan: pt diet eval 02 pulm tx abx uro f/u cbc bmp am Subjective Constitutional: Reports: weakness Allergies: Coded Allergies: No Known Allergies (Unverified , 12/20/18) All Systems: reviewed and negative except above Subjective sleepy calm Objective Last 24 Hour Vital Signs Date Time Temp Pulse Resp B/P (MAP) Pulse Ox O2 Delivery O2 Flow Rate FiO2 04/02/19 08:40 74 108/57 04/02/19 08:39 74 108/57 04/02/19 08:00 97.6 74 19 108/57 (74) 99 04/02/19 07:58 76 20 97 Room Air 21 04/02/19 06:11 122/68 04/02/19 06:00 122/68 04/02/19 04:00 68 04/02/19 04:00 97.8 64 20 149/66 (93) 97 04/02/19 00:00 98.8 78 20 120/66 (84) 100 04/02/19 00:00 78 04/01/19 22:00 105/59 04/01/19 22:00 105/59 04/01/19 21:00 76 105/42 04/01/19 21:00 Room Air 04/01/19 20:00 98.5 72 20 110/59 (76) 100 04/01/19 20:00 78 04/01/19 16:00 75 04/01/19 16:00 98.7 75 20 105/61 (76) 97 04/01/19 14:28 141/76 04/01/19 14:28 141/76 04/01/19 12:28 97.2 79 18 141/76 (97) 91 04/01/19 12:00 67 04/01/19 10:51 Nasal Cannula 2.0 Intake and Output 04/01/19 04/02/19 19:00 07:00 Intake Total 240 ml 300 ml Output Total 300 ml Balance -60 ml 300 ml Intake Oral 240 ml 300 ml Output Urine Total 300 ml # Voids 3 # Bowel Movements 1 1 Laboratory Tests 04/01/19 19:36: Stool Occult Blood [Pending] 04/02/19 07:03: White Blood Count 6.8, Red Blood Count 2.91L, Hemoglobin 8.2L, Hematocrit 26.2L , Mean Corpuscular Volume 90, Mean Corpuscular Hemoglobin 28.3, Mean Corpuscular Hemoglobin Concent 31.4L, Red Cell Distribution Width 18.4H, Platelet Count 88L, Mean Platelet Volume 8.7, Neutrophils (%) (Auto) , Lymphocytes (%) (Auto) , Monocytes (%) (Auto) , Eosinophils (%) (Auto) , Basophils (%) (Auto) , Neutrophils % (Manual) [Pending], Lymphocytes % (Manual) [Pending], Platelet Estimate [Pending], Platelet Morphology [Pending], Sodium Level 152H, Potassium Level 2.7*L, Chloride Level 118H, Carbon Dioxide Level 19L , Anion Gap 15, Blood Urea Nitrogen 74H, Creatinine 3.7H, Estimat Glomerular Filtration Rate , Glucose Level 229H, Hemoglobin A1c 6.7H, Calcium Level 7.2L, Iron Level 13L, Total Iron Binding Capacity 82L, Percent Iron Saturation 16, Unsaturated Iron Binding 69L, Ferritin 208, Total Bilirubin 0.3, Aspartate Amino Transf (AST/SGOT) 34, Alanine Aminotransferase (ALT/SGPT) 10L, Alkaline Phosphatase 52, Total Protein 6.5, Albumin 1.5L, Globulin 5.0, Albumin/Globulin Ratio 0.3L, Carcinoembryonic Antigen [Pending], Vitamin B12 Level [Pending], Folate [Pending] Height (Feet): 5 Height (Inches): 9.00 Weight (Pounds): 244 General Appearance: lethargic EENT: normal ENT inspection Neck: normal alignment Cardiovascular: normal peripheral pulses, normal rate, regular rhythm Respiratory/Chest: chest wall non-tender, lungs clear, normal breath sounds Abdomen: normal bowel sounds, non tender, soft Extremities: normal inspection Edema: no edema noted Arm (L), no edema noted Arm (R), no edema noted Leg (L), no edema noted Leg (R), no edema noted Pedal (L), no edema noted Pedal (R), no edema noted Generalized Neurologic: motor weakness Skin: normal pigmentation, warm/dry Jamie Gray DO Apr 02, 2019 09:38
--- NOTE | 2019-04-02 09:47 | NUR ---
RADIOLOGY: PCXR COMPLETED 0945HRS. NF
--- NOTE | 2019-04-02 09:50 | Consultation ---
History of Present Illness General Date patient seen: Apr 02, 2019 Reason for Hospitalization: Dyspnea/Respdistress Present Illness HPI This is a pleasant 83-year-old male with multiple medical comorbidities who is a [facility] resident that presented to [facility] for evaluation of hypoxia and respiratory insufficiency. Patient was admitted for further care and management. Seen by urology medical services given history and current condition. Upon admission identified to have multiple wounds requiring care and management. There are concerning wounds in the scrotum the sacral area. Surgery was called to evaluate by patient's primary care physician. Patient seen, patient evaluated, chart reviewed. Patient is not mobile at baseline and fairly bedbound. He is able to move his upper extremities and help with turning and repositioning. Allergies: Coded Allergies: No Known Allergies (Unverified , 12/20/18) Medication History Scheduled Amlodipine Besylate (Norvasc), 10 MG ORAL DAILY, (Reported) Atorvastatin Calcium* (Lipitor*), 80 MG ORAL BEDTIME, (Reported) Bethanechol Chl* (Urecholine*), 25 MG ORAL THREE TIMES A DAY, (Reported) Carvedilol (Coreg), 12.5 MG ORAL EVERY 12 HOURS, (Reported) Clonidine Hcl* (Catapres*), 0.2 MG ORAL Q8HR, (Reported) Dutasteride (Avodart), 0.5 MG ORAL DAILY, (Reported) Furosemide* (Lasix*), 40 MG ORAL TWICE A DAY, (Reported) Hydralazine HCl (Hydralazine HCl), 100 MG ORAL Q8HR Hydralazine Hcl* (Hydralazine Hcl*), 50 MG ORAL BID, (Reported) Hydrochlorothiazide* (Hydrochlorothiazide*), 12.5 MG ORAL DAILY, (Reported) Insulin Detemir (Levemir), 18 SUBQ BEDTIME, (Reported) Isosorbide Dinitrate* (Isordil*), 20 MG ORAL DAILY, (Reported) Tamsulosin HCl (Flomax), 0.4 MG ORAL DAILY, (Reported) Vitamin B Complex (Vitamin B Complex), 1 CAP ORAL DAILY, (Reported) Scheduled PRN Magnesium Hydroxide* (Milk Of Magnesia*), 30 ML ORAL EVERY 6 HOURS PRN for stomach upset, (Reported) Ondansetron (Zofran), 4 MG ORAL Q6H PRN for Nausea & Vomiting, (Reported) Discontinued Medications Acetaminophen* (Acetaminophen 325MG Tablet*), 650 MG ORAL Q4H PRN for For Pain, (Reported) Discontinued Reason: Therapy completed Amlodipine Besylate* (Amlodipine Besylate*), 10 MG ORAL DAILY, (Reported) Discontinued Reason: Therapy completed Atorvastatin Calcium* (Atorvastatin Calcium*), 80 MG ORAL BEDTIME, (Reported) Discontinued Reason: Therapy completed Bisacodyl* (Dulcolax*), 5 MG ORAL DAILY, (Reported) Discontinued Reason: Therapy completed Losartan Potassium* (Losartan Potassium*), 100 MG ORAL DAILY, (Reported) Discontinued Reason: Therapy completed Minoxidil (Minoxidil), 2.5 MG ORAL Q4H PRN Discontinued Reason: Therapy completed Tamsulosin HCl (Flomax), 0.4 MG ORAL BID Discontinued Reason: Therapy completed Patient History History Provided By: Patient, Medical Record, PMD Healthcare decision maker Resuscitation status Full Code Advanced Directive on File No Past Medical/Surgical History Past Medical/Surgical History: (1) Gross hematuria (2) ARF (acute renal failure) (3) Anemia (4) CAD (coronary artery disease) (5) Diabetes (6) CHF (congestive heart failure) (7) HTN (hypertension) (8) Bladder mass (9) Dyspnea (10) Respiratory distress (11) Urinary tract infection (12) Bladder cancer (13) Altered mental status (14) Acute on chronic renal insufficiency (15) Weak (16) ATN (acute tubular necrosis) (17) Hypertension (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 Review of Systems Review of Symptoms General ROS: no weight loss or fever Psychological ROS: no depression or mood changes, no memory loss Ophthalmic ROS: no visual changes or eye irritation ENT ROS: no nasal congestion, hearing loss, dizziness Allergy and Immunology ROS: no allergic symptoms or urticaria Hematological and Lymphatic ROS: no swollen glands, unusual bleeding or bruising Endocrine ROS: no polyuria, polydipsia, weight changes, temperature intolerance Respiratory ROS: no cough, shortness of breath, or wheezing Cardiovascular ROS: no chest pain or dyspnea on exertion Gastrointestinal ROS: denies abdominal pain, bright red blood in stool. Musculoskeletal ROS: no myalgias or arthralgias Neurological ROS: no TIA or stroke symptoms Dermatological ROS: no new or changing skin lesions, rashes or pruritis Physical Exam Physical Exam General appearance: alert, cooperative, no distress, appears stated age Head: Normocephalic, without obvious abnormality, atraumatic Eyes: conjunctivae/corneas clear. PERRL, EOM's intact. Fundi benign Throat: Lips, mucosa, and tongue normal. Teeth and gums normal Neck: supple, symmetrical, trachea midline, no adenopathy, thyroid: not enlarged, symmetric, no tenderness/mass/nodules, no carotid bruit and no JVD Lungs: clear to auscultation bilaterally Heart: regular rate and rhythm, S1, S2 normal, no murmur, click, rub or gallop Abdomen: soft, non-tender. Bowel sounds normal. No masses, no organomegaly Extremities: extremities normal, atraumatic, no cyanosis or edema Pulses: 2+ and symmetric Skin: Skin color, texture, turgor normal. No rashes or lesions scrotal lesions and sacral decubitus ulcer Neurologic: Grossly normal Last 24 Hour Vital Signs Date Time Temp Pulse Resp B/P (MAP) Pulse Ox O2 Delivery O2 Flow Rate FiO2 04/02/19 08:40 74 108/57 04/02/19 08:39 74 108/57 04/02/19 08:00 97.6 74 19 108/57 (74) 99 04/02/19 07:58 76 20 97 Room Air 21 04/02/19 06:11 122/68 04/02/19 06:00 122/68 04/02/19 04:00 68 04/02/19 04:00 97.8 64 20 149/66 (93) 97 04/02/19 00:00 98.8 78 20 120/66 (84) 100 04/02/19 00:00 78 04/01/19 22:00 105/59 04/01/19 22:00 105/59 04/01/19 21:00 76 105/42 04/01/19 21:00 Room Air 04/01/19 20:00 98.5 72 20 110/59 (76) 100 04/01/19 20:00 78 04/01/19 16:00 75 04/01/19 16:00 98.7 75 20 105/61 (76) 97 04/01/19 14:28 141/76 04/01/19 14:28 141/76 04/01/19 12:28 97.2 79 18 141/76 (97) 91 04/01/19 12:00 67 04/01/19 10:51 Nasal Cannula 2.0 Intake and Output 04/01/19 04/02/19 19:00 07:00 Intake Total 240 ml 300 ml Output Total 300 ml Balance -60 ml 300 ml Intake Oral 240 ml 300 ml Output Urine Total 300 ml # Voids 3 # Bowel Movements 1 1 Laboratory Tests Test 04/01/19 19:36 04/02/19 07:03 Stool Occult Blood Pending White Blood Count 6.8 K/UL (4.8-10.8) Red Blood Count 2.91 M/UL (4.70-6.10) L Hemoglobin 8.2 G/DL (14.2-18.0) L Hematocrit 26.2 % (42.0-52.0) L Mean Corpuscular Volume 90 FL (80-99) Mean Corpuscular Hemoglobin 28.3 PG (27.0-31.0) Mean Corpuscular Hemoglobin Concent 31.4 G/DL (32.0-36.0) L Red Cell Distribution Width 18.4 % (11.6-14.8) H Platelet Count 88 K/UL (150-450) L Mean Platelet Volume 8.7 FL (6.5-10.1) Neutrophils (%) (Auto) % (45.0-75.0) Lymphocytes (%) (Auto) % (20.0-45.0) Monocytes (%) (Auto) % (1.0-10.0) Eosinophils (%) (Auto) % (0.0-3.0) Basophils (%) (Auto) % (0.0-2.0) Neutrophils % (Manual) Pending Lymphocytes % (Manual) Pending Platelet Estimate Pending Platelet Morphology Pending Sodium Level 152 MMOL/L (136-145) H Potassium Level 2.7 MMOL/L (3.5-5.1) *L Chloride Level 118 MMOL/L (98-107) H Carbon Dioxide Level 19 MMOL/L (21-32) L Anion Gap 15 mmol/L (5-15) Blood Urea Nitrogen 74 mg/dL (7-18) H Creatinine 3.7 MG/DL (0.55-1.30) H Estimat Glomerular Filtration Rate mL/min (>60) Glucose Level 229 MG/DL (74-106) H Hemoglobin A1c 6.7 % (4.3-6.0) H Calcium Level 7.2 MG/DL (8.5-10.1) L Iron Level 13 ug/dL (50-175) L Total Iron Binding Capacity 82 ug/dL (250-450) L Percent Iron Saturation 16 % (15-50) Unsaturated Iron Binding 69 ug/dL (112-346) L Ferritin 208 NG/ML (8-388) Total Bilirubin 0.3 MG/DL (0.2-1.0) Aspartate Amino Transf (AST/SGOT) 34 U/L (15-37) Alanine Aminotransferase (ALT/SGPT) 10 U/L (12-78) L Alkaline Phosphatase 52 U/L (46-116) Total Protein 6.5 G/DL (6.4-8.2) Albumin 1.5 G/DL (3.4-5.0) L Globulin 5.0 g/dL Albumin/Globulin Ratio 0.3 (1.0-2.7) L Carcinoembryonic Antigen Pending Vitamin B12 Level 534 PG/ML (193-986) Folate 8.9 NG/ML (8.6-58.9) Height (Feet): 5 Height (Inches): 9.00 Weight (Pounds): 244 Medications Current Medications Medications (Trade) Dose Ordered Sig/Sallie Route PRN Reason Start Time Stop Time Status Last Admin Dose Admin Acetaminophen (Tylenol) 650 mg Q4H PRN ORAL fever 04/01/19 08:00 05/01/19 07:59 Albuterol/ Ipratropium (Albuterol/ Ipratropium) 3 ml Q4HRT PRN HHN Shortness of Breath 04/01/19 08:00 04/06/19 07:59 Amlodipine Besylate (Norvasc) 2.5 mg DAILY ORAL 04/02/19 09:00 05/01/19 08:59 Carvedilol (Coreg) 12.5 mg EVERY 12 HOURS ORAL 04/01/19 09:00 05/01/19 08:59 Cefepime HCl 1 gm/ Dextrose 55 ml @ 110 mls/hr Q24H IVPB 04/01/19 12:00 04/08/19 11:59 04/01/19 12:07 Clonidine HCl (Catapres Tab) 0.1 mg Q8HR ORAL 04/01/19 14:00 05/01/19 13:59 04/01/19 14:28 Dextrose (Dextrose 50%) 25 ml Q30M PRN IV Hypoglycemia 04/01/19 10:30 05/01/19 10:29 Dextrose (Dextrose 50%) 50 ml Q30M PRN IV Hypoglycemia 04/01/19 10:30 05/01/19 10:29 Docusate Sodium (Colace) 100 mg THREE TIMES A DAY ORAL 04/01/19 13:00 05/01/19 12:59 Heparin Sodium (Porcine) (Heparin 5000 units/ml) 5,000 units EVERY 12 HOURS SUBQ 04/01/19 09:00 05/01/19 08:59 Hydralazine HCl (Apresoline) 50 mg Q8HR ORAL 04/01/19 14:00 05/01/19 13:59 04/02/19 06:11 Insulin Aspart (NovoLOG) BEFORE MEALS AND HS SUBQ 04/01/19 11:30 05/01/19 11:29 04/02/19 06:15 Minoxidil (Loniten) 2.5 mg Q4H PRN ORAL bp over 165 syst 04/01/19 12:15 05/01/19 12:14 Morphine Sulfate (Morphine Sulfate) 2 mg Q4H PRN IVP Moderate Pain (Pain Scale 4-6) 04/01/19 08:00 04/08/19 07:59 Ondansetron HCl (Zofran) 4 mg Q6H PRN IVP Nausea & Vomiting 04/01/19 08:00 05/01/19 07:59 Pantoprazole (Protonix) 40 mg EVERY 12 HOURS ORAL 04/01/19 21:00 05/01/19 20:59 04/02/19 08:38 Polyethylene Glycol (Miralax) 17 gm DAILYPRN PRN ORAL Constipation 04/01/19 08:00 05/01/19 07:59 Potassium Chloride (K-Dur) 40 meq DAILY ORAL 04/01/19 13:00 05/01/19 12:59 04/02/19 08:39 Sodium Chloride 1,000 ml @ 100 mls/hr Q10H IV 04/01/19 12:45 05/01/19 12:44 04/02/19 08:41 Tamsulosin HCl (Flomax) 0.4 mg BID ORAL 04/01/19 13:00 05/01/19 12:59 04/02/19 08:38 Temazepam (Restoril) 15 mg HSPRN PRN ORAL Insomnia 04/01/19 08:00 04/08/19 07:59 Vancomycin HCl (Vanco rx to dose) 1 ea DAILY PRN MISC Per rx protocol 04/01/19 08:15 05/01/19 08:14 Assessment/Plan Problem List: (1) Scrotal lesion Assessment & Plan: This is a 83-year-old male with multiple medical morbidities who was identified to have abnormal scrotal lesions on admission. There are 3 lesions on the scrotum clearly identified and likely old small abscesses or carbuncles which have healed slowly. Patient is incontinent With leakage of stool identified around the scrotal sac on the posterior aspect where the lesions are located. No signs of active infection no active drainage nontender skin macerated Recommend washing the scrotum daily with normal saline. Apply skin protectant and moisture absorbent dressing daily and as needed saturation We will follow and monitor for healing ICD Codes: N50.9 - Disorder of male genital organs, unspecified SNOMED: 06122864 (2) Sacral decubitus ulcer, stage III Assessment & Plan: Pt presented on admission with multiple pressure injuries. Full thickness sacral pressure injury. Base of wound is viable with an area that is purple in center. Semi-detached black borders(L)9.5cm x (W)4.9cm x(D) 0.2cm .Non-blanching erythema periwound. Multiple pressure injuries Scrotum. Base of pressure injury R scrotum 75% pink granulation,25% slough. Edges pink,flat and adherent to base of wound.(L)2.2cm x (W)0.9cm.Ful thickness pressure injury center -base of scrotum (L)0.5cm x (W) 0.4cm. Base of wound has 100% slough. Full thickness pressure injury L scrotum ( L)2cm x (W01.1cm. Base of wound has 90% slough ,10% viable. Reabsorbing blood blister R heel heel. Base of wound black (L)2.2cm x (W)2cm with red tinged borders with fluctuance. (L)5.5cm x(W)5cm. Reabsorbing Blood Blister L heel. Base of wound is black ,dry with maroon and fluctuant borders.(L)6.5cm x (W)6cm Abd folds are moist and dark but is intact. Tx.Plan: Cleanse Sacral wound with Saline. Apply Therahoney. Apply Moisture Barrier Paste periwound. Cover with Optifoam drsg Daily and prn. Cleanse wounds on Scrotum with saline. Apply Therhaoney to each wound. Cover with Optifoam drsg. Change Daily and prn. Apply Moisture Barrier to Abd folds and Bilat groin Daily and prn. APM/NOLBERTO Mattress overlay. Reposition at least every 2hours or as tolerated. Off-load heels with pillow. ICD Codes: L89.153 - Pressure ulcer of sacral region, stage 3 SNOMED: 036642090, 514651356 (3) Bladder mass Assessment & Plan: Reported history of bladder cancer. Invasive as per report. Seen by urology. Currently being treated for UTI. Defer to urology for further treatment. ICD Codes: N32.89 - Other specified disorders of bladder SNOMED: 004015719 (4) Bladder cancer ICD Codes: C67.9 - Malignant neoplasm of bladder, unspecified SNOMED: 781400499 Bebeto Pepe Apr 02, 2019 09:50
--- NOTE | 2019-04-02 10:16 | Consultation ---
History of Present Illness General Chief Complaint: Dyspnea/Respdistress Referring physician: Dr Gray Reason for Consultation: hypoxia Present Illness Allergies: Coded Allergies: No Known Allergies (Unverified , 12/20/18) Medication History Scheduled Amlodipine Besylate (Norvasc), 10 MG ORAL DAILY, (Reported) Atorvastatin Calcium* (Lipitor*), 80 MG ORAL BEDTIME, (Reported) Bethanechol Chl* (Urecholine*), 25 MG ORAL THREE TIMES A DAY, (Reported) Carvedilol (Coreg), 12.5 MG ORAL EVERY 12 HOURS, (Reported) Clonidine Hcl* (Catapres*), 0.2 MG ORAL Q8HR, (Reported) Dutasteride (Avodart), 0.5 MG ORAL DAILY, (Reported) Furosemide* (Lasix*), 40 MG ORAL TWICE A DAY, (Reported) Hydralazine HCl (Hydralazine HCl), 100 MG ORAL Q8HR Hydralazine Hcl* (Hydralazine Hcl*), 50 MG ORAL BID, (Reported) Hydrochlorothiazide* (Hydrochlorothiazide*), 12.5 MG ORAL DAILY, (Reported) Insulin Detemir (Levemir), 18 SUBQ BEDTIME, (Reported) Isosorbide Dinitrate* (Isordil*), 20 MG ORAL DAILY, (Reported) Tamsulosin HCl (Flomax), 0.4 MG ORAL DAILY, (Reported) Vitamin B Complex (Vitamin B Complex), 1 CAP ORAL DAILY, (Reported) Scheduled PRN Magnesium Hydroxide* (Milk Of Magnesia*), 30 ML ORAL EVERY 6 HOURS PRN for stomach upset, (Reported) Ondansetron (Zofran), 4 MG ORAL Q6H PRN for Nausea & Vomiting, (Reported) Discontinued Medications Acetaminophen* (Acetaminophen 325MG Tablet*), 650 MG ORAL Q4H PRN for For Pain, (Reported) Discontinued Reason: Therapy completed Amlodipine Besylate* (Amlodipine Besylate*), 10 MG ORAL DAILY, (Reported) Discontinued Reason: Therapy completed Atorvastatin Calcium* (Atorvastatin Calcium*), 80 MG ORAL BEDTIME, (Reported) Discontinued Reason: Therapy completed Bisacodyl* (Dulcolax*), 5 MG ORAL DAILY, (Reported) Discontinued Reason: Therapy completed Losartan Potassium* (Losartan Potassium*), 100 MG ORAL DAILY, (Reported) Discontinued Reason: Therapy completed Minoxidil (Minoxidil), 2.5 MG ORAL Q4H PRN Discontinued Reason: Therapy completed Tamsulosin HCl (Flomax), 0.4 MG ORAL BID Discontinued Reason: Therapy completed Patient History Healthcare decision maker Resuscitation status Full Code Advanced Directive on File No Physical Exam Last 24 Hour Vital Signs Date Time Temp Pulse Resp B/P (MAP) Pulse Ox O2 Delivery O2 Flow Rate FiO2 04/02/19 09:00 Room Air 04/02/19 08:40 74 108/57 04/02/19 08:39 74 108/57 04/02/19 08:00 97.6 74 19 108/57 (74) 99 04/02/19 08:00 79 04/02/19 07:58 76 20 97 Room Air 21 04/02/19 06:11 122/68 04/02/19 06:00 122/68 04/02/19 04:00 68 04/02/19 04:00 97.8 64 20 149/66 (93) 97 04/02/19 00:00 98.8 78 20 120/66 (84) 100 04/02/19 00:00 78 04/01/19 22:00 105/59 04/01/19 22:00 105/59 04/01/19 21:00 76 105/42 04/01/19 21:00 Room Air 04/01/19 20:00 98.5 72 20 110/59 (76) 100 04/01/19 20:00 78 04/01/19 16:00 75 04/01/19 16:00 98.7 75 20 105/61 (76) 97 04/01/19 14:28 141/76 04/01/19 14:28 141/76 04/01/19 12:28 97.2 79 18 141/76 (97) 91 04/01/19 12:00 67 04/01/19 10:51 Nasal Cannula 2.0 Intake and Output 04/01/19 04/02/19 19:00 07:00 Intake Total 240 ml 300 ml Output Total 300 ml Balance -60 ml 300 ml Intake Oral 240 ml 300 ml Output Urine Total 300 ml # Voids 3 # Bowel Movements 1 1 Laboratory Tests Test 04/01/19 19:36 04/02/19 07:03 Stool Occult Blood Pending White Blood Count 6.8 K/UL (4.8-10.8) Red Blood Count 2.91 M/UL (4.70-6.10) L Hemoglobin 8.2 G/DL (14.2-18.0) L Hematocrit 26.2 % (42.0-52.0) L Mean Corpuscular Volume 90 FL (80-99) Mean Corpuscular Hemoglobin 28.3 PG (27.0-31.0) Mean Corpuscular Hemoglobin Concent 31.4 G/DL (32.0-36.0) L Red Cell Distribution Width 18.4 % (11.6-14.8) H Platelet Count 88 K/UL (150-450) L Mean Platelet Volume 8.7 FL (6.5-10.1) Neutrophils (%) (Auto) % (45.0-75.0) Lymphocytes (%) (Auto) % (20.0-45.0) Monocytes (%) (Auto) % (1.0-10.0) Eosinophils (%) (Auto) % (0.0-3.0) Basophils (%) (Auto) % (0.0-2.0) Neutrophils % (Manual) Pending Lymphocytes % (Manual) Pending Platelet Estimate Pending Platelet Morphology Pending Sodium Level 152 MMOL/L (136-145) H Potassium Level 2.7 MMOL/L (3.5-5.1) *L Chloride Level 118 MMOL/L (98-107) H Carbon Dioxide Level 19 MMOL/L (21-32) L Anion Gap 15 mmol/L (5-15) Blood Urea Nitrogen 74 mg/dL (7-18) H Creatinine 3.7 MG/DL (0.55-1.30) H Estimat Glomerular Filtration Rate mL/min (>60) Glucose Level 229 MG/DL (74-106) H Hemoglobin A1c 6.7 % (4.3-6.0) H Calcium Level 7.2 MG/DL (8.5-10.1) L Iron Level 13 ug/dL (50-175) L Total Iron Binding Capacity 82 ug/dL (250-450) L Percent Iron Saturation 16 % (15-50) Unsaturated Iron Binding 69 ug/dL (112-346) L Ferritin 208 NG/ML (8-388) Total Bilirubin 0.3 MG/DL (0.2-1.0) Aspartate Amino Transf (AST/SGOT) 34 U/L (15-37) Alanine Aminotransferase (ALT/SGPT) 10 U/L (12-78) L Alkaline Phosphatase 52 U/L (46-116) Total Protein 6.5 G/DL (6.4-8.2) Albumin 1.5 G/DL (3.4-5.0) L Globulin 5.0 g/dL Albumin/Globulin Ratio 0.3 (1.0-2.7) L Carcinoembryonic Antigen Pending Vitamin B12 Level 534 PG/ML (193-986) Folate 8.9 NG/ML (8.6-58.9) Height (Feet): 5 Height (Inches): 9.00 Weight (Pounds): 244 Medications Current Medications Medications (Trade) Dose Ordered Sig/Sallie Route PRN Reason Start Time Stop Time Status Last Admin Dose Admin Acetaminophen (Tylenol) 650 mg Q4H PRN ORAL fever 04/01/19 08:00 05/01/19 07:59 Albuterol/ Ipratropium (Albuterol/ Ipratropium) 3 ml Q4HRT PRN HHN Shortness of Breath 04/01/19 08:00 04/06/19 07:59 Amlodipine Besylate (Norvasc) 2.5 mg DAILY ORAL 04/02/19 09:00 05/01/19 08:59 Carvedilol (Coreg) 12.5 mg EVERY 12 HOURS ORAL 04/01/19 09:00 05/01/19 08:59 Cefepime HCl 1 gm/ Dextrose 55 ml @ 110 mls/hr Q24H IVPB 04/01/19 12:00 04/08/19 11:59 04/01/19 12:07 Clonidine HCl (Catapres Tab) 0.1 mg Q8HR ORAL 04/01/19 14:00 05/01/19 13:59 04/01/19 14:28 Dextrose (Dextrose 50%) 25 ml Q30M PRN IV Hypoglycemia 04/01/19 10:30 05/01/19 10:29 Dextrose (Dextrose 50%) 50 ml Q30M PRN IV Hypoglycemia 04/01/19 10:30 05/01/19 10:29 Docusate Sodium (Colace) 100 mg THREE TIMES A DAY ORAL 04/01/19 13:00 12/17/19 12:59 Heparin Sodium (Porcine) (Heparin 5000 units/ml) 5,000 units EVERY 12 HOURS SUBQ 04/01/19 09:00 05/01/19 08:59 Hydralazine HCl (Apresoline) 50 mg Q8HR ORAL 04/01/19 14:00 05/01/19 13:59 04/02/19 06:11 Insulin Aspart (NovoLOG) BEFORE MEALS AND HS SUBQ 04/01/19 11:30 05/01/19 11:29 04/02/19 06:15 Minoxidil (Loniten) 2.5 mg Q4H PRN ORAL bp over 165 syst 04/01/19 12:15 05/01/19 12:14 Morphine Sulfate (Morphine Sulfate) 2 mg Q4H PRN IVP Moderate Pain (Pain Scale 4-6) 04/01/19 08:00 04/08/19 07:59 Ondansetron HCl (Zofran) 4 mg Q6H PRN IVP Nausea & Vomiting 04/01/19 08:00 05/01/19 07:59 Pantoprazole (Protonix) 40 mg EVERY 12 HOURS ORAL 04/01/19 21:00 05/01/19 20:59 04/02/19 08:38 Polyethylene Glycol (Miralax) 17 gm DAILYPRN PRN ORAL Constipation 04/01/19 08:00 05/01/19 07:59 Potassium Chloride 100 ml @ 100 mls/hr Q1HR IVPB 04/02/19 11:00 04/02/19 14:59 UNV Potassium Chloride (K-Dur) 40 meq DAILY ORAL 04/01/19 13:00 05/01/19 12:59 04/02/19 08:39 Sodium Chloride 1,000 ml @ 100 mls/hr Q10H IV 04/01/19 12:45 05/01/19 12:44 04/02/19 08:41 Tamsulosin HCl (Flomax) 0.4 mg BID ORAL 04/01/19 13:00 05/01/19 12:59 04/02/19 08:38 Temazepam (Restoril) 15 mg HSPRN PRN ORAL Insomnia 04/01/19 08:00 04/08/19 07:59 Vancomycin HCl (Vanco rx to dose) 1 ea DAILY PRN MISC Per rx protocol 04/01/19 08:15 05/01/19 08:14 Assessment/Plan Assessment/Plan: Hematology Consultation REQ MD: Subhash Roberts RFC: Anemia and bladder ca DOS: 04/02/19 HPI This is an 83-year-old male well known to me from admission 2 months ago, sent in by nursing facility after increased confusion and desaturation. Patient had prior history of bladder cancer. He was noted to have diminished oxygen saturation as well as increased confusion. He had been brought in by EMS. Patient was noted to be less responsive than usual. Patient's O2 sat has been noted to be intermittently in the 80s. Patient was sent in for further evaluation. He had recent hospitalization and had prior bladder surgery. Has been seen by uro, id, renal, surg as well and heme consulted for eval of anemia , ongoing, ferritin is pending Coded Allergies: No Known Allergies (Unverified , 12/20/18) Past Medical History: see triage record Reviewed Nursing Documentation: PMH: Agreed; PSxH: Agreed Nursing Documentation-PMH Hx Cardiac Problems: Yes - CAD,CHF Hx Hypertension: Yes Hx Diabetes: Yes Hx Cerebrovascular Accident: Yes Review of systems: lmited - Limited by poor historian, unfortunately, difficult to obtain further info from patient Physical Exam Vital Signs Date Time Temp Pulse Resp B/P (MAP) Pulse Ox O2 Delivery O2 Flow Rate FiO2 04/01/19 04:43 99.1 60 18 100/70 (80) 96 Room Air General Appearance: non-toxic, obese, Chronically Ill Respiratory: chest non-tender, lungs clear, mirian BSs, no rhonchi Cardiovascular: normal inspection, regular rate, rhythm, GI: normal inspection, soft Genitourinary: other Musculoskeletal: normal inspection Neurologic: normal inspection, alert Psychiatric: normal inspection Skin: other - balanitis Labs: reviewed Imaging: noted Assessment and Recs: # ACUTE DEEP VEIN THROMBOSIS BILATERAL, new onset, from 04/02/19 --> reviewed images with radiology, goes from common to proximal common femoral v ein --> pending v/Q scan --> given low h/h and low plts, recommend ivc filter placement --> clear with others and with conservator as well # Bladder cancer requires resection v chemo/xrt -- presented with multi masses CT shows Scattered eccentric mural thickening/masses in the urinary bladder wall , correlating with findings on recent ultrasound. No significant perivesical stranding. Recommend further evaluation with cystoscopy. --> urology consulted, appreciate input --> Uro note from prior admission: Tolerated bladder tumor resection well. Unfortunately greater part of the bladder is involved and essentially replaced all normal bladder with tumor. I can not resect all the tumors. --> may consider chemo/radiation as outpatient --> path does confirm malignancy --> CBI as needed per uro # Thrombocytopenia - potential causes multifactorial, evaluate liver and viral etiologies to begin, also could be related to underlying medications patient has received. --> Hep panel and HIV -> NEGATIVE --> US abd showed bladder masses-->ct reviewed as well --> Peripheral smear ordered to evaluate for blasts /schistocytes --> none noted --> abx and other meds have been reviewed --> ok for ppx if plt >50k w/ either heparin or lovenox --> trend plt >92-->104-->86 # Anemia of iron deficiency likely due to hematuria --> iv iron x 5 days low ferritin, completed from prior admission --> likely due to hematuria --> have started on ivf and consider uro prn cysto --> hgb goal >7 --> cont po folic acid # Acute renal injury --> cr >1.4-->1.4-->1.7-->1.5-->3.7 --> per renal recs --> volume expansion # HTN --> cards is following, appreciate recs # Hematuria # UTI (urinary tract infection) --> per id on abx, cefe/vanc # Scrotal lesions --> per surg eval # Dehydration # Dvt ppx heparin sq The timing of this note does not necessarily reflect the time of the patient was seen. GREATLY APPRECIATE CONSULTATION. Marcelo Mcallister MD Apr 02, 2019 10:16
--- NOTE | 2019-04-02 10:41 | Diagnostic Imaging Report ---
Indication: Shortness of breath Technique: One view of the chest Comparison: 04/01/2019 Findings: Inspiration is suboptimal, as previously. There is mild elevation the right hemidiaphragm. There is equivocal mild interstitial prominence and retrocardiac airspace opacity Impression: Hypoventilatory exam. Doubt acute process, but mild interstitial congestion and patchy retrocardiac infiltrate are possible
--- NOTE | 2019-04-02 10:48 | Diagnostic Imaging Report ---
Indication: Acute renal failure Technique: Grayscale and duplex images of the kidneys, retroperitoneum, and bladder were obtained. Comparison: 80 01/02/2019 Findings: Right kidney measures 9.6 cm in length. Left kidney measures 9.8 cm in length. Both kidneys demonstrate normal echogenicity. No hydronephrosis. No focal abnormality. Previously reported renal cysts are not evident on the current study; these may have represented hydronephrosis as be are also not evident on prior CT scan of 12/23/2018. Normal inferior vena cava. Bladder is empty, contains a Oconnor catheter. Previously demonstrated renal masses are therefore not visible. Incidentally noted are gallstones Impression: Negative for hydronephrosis. Note that previously suspected parapelvic cysts may actually have represented hydronephrosis on the prior study Empty bladder with a Oconnor catheter. Previously demonstrated renal masses therefore not demonstrated due to lack of bladder distention. Cholelithiasis incidentally noted, also described on prior CT scan
--- NOTE | 2019-04-02 10:55 | NUR ---
NURSE NOTES: Made Dr. Wasserman aware of blood culture results with gram positive cocci to three bottles of blood cultures
--- NOTE | 2019-04-02 11:15 | NUR ---
PT EVALUATION NOTE Patient seen for initial evaluation, see complete evaluation for details. Patient presents with generalized weakness and impaired cognition which affects patient's ability to perform mobility tasks. Patient requires max/dependent assist for bed mobility. Patient will benefit from 3 day trial of skilled inpatient PT intervention to address strength, balance and safety to improve level of functional mobility. Will re-assess patient after 3 days of treatment to assess appropriateness of further treatment. Recommend discharge to SNF once medically cleared by MD. Addendum: 04/02/19 at 1322 by BETTY COOPER PT Amended: Links added.
--- NOTE | 2019-04-02 11:41 | Pulmonology Progress Note ---
Assessment/Plan Problems: (1) Acute respiratory failure with hypoxemia (2) CAD (coronary artery disease) (3) Anemia (4) Invasive carcinoma of urinary bladder (5) Diabetes (6) HTN (hypertension) Assessment/Plan V/q scan to rule out PE, can't get CTA b/o chronic renal insufficiency respiratory treatment check electrolytes titrate fiio2 to sat of 92% dvt prophylaxis. venous studies of legs. Subjective ROS Limited/Unobtainable: No Constitutional: Reports: no symptoms HEENT: Repors: no symptoms Respiratory: Reports: no symptoms Allergies: Coded Allergies: No Known Allergies (Unverified , 12/20/18) Objective Last 24 Hour Vital Signs Date Time Temp Pulse Resp B/P (MAP) Pulse Ox O2 Delivery O2 Flow Rate FiO2 04/02/19 11:14 101.7 04/02/19 09:00 Room Air 04/02/19 08:40 74 108/57 04/02/19 08:39 74 108/57 04/02/19 08:00 97.6 74 19 108/57 (74) 99 04/02/19 08:00 79 04/02/19 07:58 76 20 97 Room Air 21 04/02/19 06:11 122/68 04/02/19 06:00 122/68 04/02/19 04:00 68 04/02/19 04:00 97.8 64 20 149/66 (93) 97 04/02/19 00:00 98.8 78 20 120/66 (84) 100 04/02/19 00:00 78 04/01/19 22:00 105/59 04/01/19 22:00 105/59 04/01/19 21:00 76 105/42 04/01/19 21:00 Room Air 04/01/19 20:00 98.5 72 20 110/59 (76) 100 04/01/19 20:00 78 04/01/19 16:00 75 04/01/19 16:00 98.7 75 20 105/61 (76) 97 04/01/19 14:28 141/76 04/01/19 14:28 141/76 04/01/19 12:28 97.2 79 18 141/76 (97) 91 04/01/19 12:00 67 Intake and Output 04/01/19 04/02/19 19:00 07:00 Intake Total 240 ml 300 ml Output Total 300 ml Balance -60 ml 300 ml Intake Oral 240 ml 300 ml Output Urine Total 300 ml # Voids 3 # Bowel Movements 1 1 General Appearance: WD/WN HEENT: normocephalic, atraumatic Respiratory/Chest: chest wall non-tender, lungs clear Cardiovascular: normal peripheral pulses, normal rate Abdomen: normal bowel sounds, soft, non tender, no organomegaly, no scars Neurologic/Psychiatric: gold wheel 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 and 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 II-XII grossly normal, no motor/sensory deficits Microbiology Date/Time Source Procedure Growth Status 04/01/19 05:30 Blood Blood Culture - Preliminary Resulted 04/01/19 05:15 Blood Blood Culture - Preliminary Resulted 04/01/19 05:30 Nasal Nares - Final Complete 04/01/19 05:30 Nasal Nares - Final Complete 04/01/19 05:30 Urine,Clean Catch Urine Culture - Preliminary Resulted Laboratory Tests 04/01/19 19:36: Stool Occult Blood [Pending] 04/02/19 07:03: White Blood Count 6.8, Red Blood Count 2.91L, Hemoglobin 8.2L, Hematocrit 26.2L , Mean Corpuscular Volume 90, Mean Corpuscular Hemoglobin 28.3, Mean Corpuscular Hemoglobin Concent 31.4L, Red Cell Distribution Width 18.4H, Platelet Count 88L, Mean Platelet Volume 8.7, Neutrophils (%) (Auto) , Lymphocytes (%) (Auto) , Monocytes (%) (Auto) , Eosinophils (%) (Auto) , Basophils (%) (Auto) , Differential Total Cells Counted 100, Neutrophils % ( Manual) 76H, Lymphocytes % (Manual) 15L, Monocytes % (Manual) 4, Eosinophils % ( Manual) 0, Basophils % (Manual) 0, Band Neutrophils 5, Platelet Estimate DecreasedL, Platelet Morphology Normal, Hypochromasia 1+, Anisocytosis 1+, Sodium Level 152H, Potassium Level 2.7*L, Chloride Level 118H, Carbon Dioxide Level 19L, Anion Gap 15, Blood Urea Nitrogen 74H, Creatinine 3.7H, Estimat Glomerular Filtration Rate , Glucose Level 229H, Hemoglobin A1c 6.7H, Calcium Level 7.2L, Iron Level 13L, Total Iron Binding Capacity 82L, Percent Iron Saturation 16, Unsaturated Iron Binding 69L, Ferritin 208, Total Bilirubin 0.3, Aspartate Amino Transf (AST/SGOT) 34, Alanine Aminotransferase (ALT/SGPT) 10L, Alkaline Phosphatase 52, Total Protein 6.5, Albumin 1.5L, Globulin 5.0, Albumin/ Globulin Ratio 0.3L, Carcinoembryonic Antigen [Pending], Vitamin B12 Level 534, Folate 8.9 Current Medications Medications (Trade) Dose Ordered Sig/Sallie Route PRN Reason Start Time Stop Time Status Last Admin Dose Admin Acetaminophen (Tylenol) 650 mg Q4H PRN ORAL fever 04/01/19 08:00 05/01/19 07:59 Albuterol/ Ipratropium (Albuterol/ Ipratropium) 3 ml Q4HRT PRN HHN Shortness of Breath 04/01/19 08:00 04/06/19 07:59 Amlodipine Besylate (Norvasc) 2.5 mg DAILY ORAL 04/02/19 09:00 05/01/19 08:59 Carvedilol (Coreg) 12.5 mg EVERY 12 HOURS ORAL 04/01/19 09:00 05/01/19 08:59 Cefepime HCl 1 gm/ Dextrose 55 ml @ 110 mls/hr Q24H IVPB 04/01/19 12:00 04/08/19 11:59 04/01/19 12:07 Clonidine HCl (Catapres Tab) 0.1 mg Q8HR ORAL 04/01/19 14:00 05/01/19 13:59 04/01/19 14:28 Dextrose (Dextrose 50%) 25 ml Q30M PRN IV Hypoglycemia 04/01/19 10:30 05/01/19 10:29 Dextrose (Dextrose 50%) 50 ml Q30M PRN IV Hypoglycemia 04/01/19 10:30 05/01/19 10:29 Docusate Sodium (Colace) 100 mg THREE TIMES A DAY ORAL 04/01/19 13:00 05/01/19 12:59 Heparin Sodium (Porcine) (Heparin 5000 units/ml) 5,000 units EVERY 12 HOURS SUBQ 04/01/19 09:00 05/01/19 08:59 Hydralazine HCl (Apresoline) 50 mg Q8HR ORAL 04/01/19 14:00 05/01/19 13:59 04/02/19 06:11 Insulin Aspart (NovoLOG) BEFORE MEALS AND HS SUBQ 04/01/19 11:30 05/01/19 11:29 04/02/19 06:15 Minoxidil (Loniten) 2.5 mg Q4H PRN ORAL bp over 165 syst 04/01/19 12:15 05/01/19 12:14 Morphine Sulfate (Morphine Sulfate) 2 mg Q4H PRN IVP Moderate Pain (Pain Scale 4-6) 04/01/19 08:00 04/08/19 07:59 Ondansetron HCl (Zofran) 4 mg Q6H PRN IVP Nausea & Vomiting 04/01/19 08:00 05/01/19 07:59 Pantoprazole (Protonix) 40 mg EVERY 12 HOURS ORAL 04/01/19 21:00 05/01/19 20:59 04/02/19 08:38 Polyethylene Glycol (Miralax) 17 gm DAILYPRN PRN ORAL Constipation 04/01/19 08:00 05/01/19 07:59 Potassium Chloride 100 ml @ 100 mls/hr Q1HR IVPB 04/02/19 11:00 04/02/19 14:59 04/02/19 11:01 Potassium Chloride (K-Dur) 40 meq DAILY ORAL 04/01/19 13:00 05/01/19 12:59 04/02/19 08:39 Sodium Chloride 1,000 ml @ 100 mls/hr Q10H IV 04/01/19 12:45 05/01/19 12:44 04/02/19 08:41 Tamsulosin HCl (Flomax) 0.4 mg BID ORAL 04/01/19 13:00 05/01/19 12:59 04/02/19 08:38 Temazepam (Restoril) 15 mg HSPRN PRN ORAL Insomnia 04/01/19 08:00 04/08/19 07:59 Vancomycin HCl (Vanco rx to dose) 1 ea DAILY PRN MISC Per rx protocol 04/01/19 08:15 05/01/19 08:14 Adam Moyer MD Apr 02, 2019 11:41
[2019-04-02 12:00] VITALS: BP 120/61
[2019-04-02] MEDS: Cefepime 1gm in D5W 55ml IVPB SCH (12:24)
--- NOTE | 2019-04-02 12:58 | NUR ---
NURSE NOTES:WOUND CARE NOTES:Pt presented on admission with multiple pressure injuries. Full thickness sacral pressure injury. Base of wound is viable with an area that is purple in center. Semi-detached black borders(L)9.5cm x (W)4.9cm x(D)0.2cm .Non-blanching erythema periwound. Multiple pressure injuries Scrotum. Base of pressure injury R scrotum 75% pink granulation,25% slough. Edges pink,flat and adherent to base of wound.(L)2.2cm x (W)0.9cm.Ful thickness pressure injury center -base of scrotum (L)0.5cm x (W)0.4cm. Base of wound has 100% slough. Full thickness pressure injury L scrotum (L)2cm x (W01.1cm. Base of wound has 90% slough ,10% viable. Reabsorbing blood blister R heel heel. Base of wound black (L)2.2cm x (W)2cm with red tinged borders with fluctuance. (L)5.5cm x(W)5cm. Reabsorbing Blood Blister L heel. Base of wound is black ,dry with maroon and fluctuant borders.(L)6.5cm x (W)6cm Abd folds are moist and dark but is intact. Tx.Plan:Cleanse Sacral wound with Saline. Apply Therahoney. Apply Moisture Barrier Paste periwound. Cover with Optifoam drsg Daily and prn. Cleanse wounds on Scrotum with saline. Apply Therhaoney to each wound. Cover with Optifoam drsg. Change Daily and prn. Apply Moisture Barrier to Abd folds and Bilat groin Daily and prn. APM/NOLBERTO Mattress overlay. Reposition at least every 2hours or as tolerated. Off-load heels with pillow.
--- NOTE | 2019-04-02 13:58 | NUR ---
NURSE NOTES: Patient went to nuclear dept for VQ scan via gurney.
--- NOTE | 2019-04-02 14:53 | NUR ---
ST NOTES: REVIEWED CHART AND SPOKE TO RN, PATIENT IS NOT AVAILABLE DUE TO PROCEDURE. PER RN, PT IS REFUSING ALL MEALS (OR EATING VERY LITTLE DUE TO NOT LIKING FOOD) AND MEDS. PATIENT ALSO COUGHED ON WATER. CONSIDER PATIENT BE DOWNGRADED TO NECTAR THICK LIQUIDS FOR NOW. PLAN: CONTINUE EVAL TOMORROW FOR PO TRIALS CONSIDER MOD BARIUM SWALLOW STUDY IF PT RECEPTIVE TO BARIUM (MAY REFUSE)
--- NOTE | 2019-04-02 14:55 | NUR ---
NM Lung V/Q Scan complete.
--- NOTE | 2019-04-02 15:05 | Nephrology Progress Note ---
Assessment/Plan Problem List: (1) ARF (acute renal failure) (2) Acute on chronic renal insufficiency (3) Diabetes (4) HTN (hypertension) (5) Bladder cancer (6) Invasive carcinoma of urinary bladder (7) Anemia Assessment Acute renal failure ? Superimposed CKD Bladder Mass / h/o Hematuria HTN DM Anemia, previous transfusions s/p Cystoscopy 12/28 Plan Hydrate richardson IV Iron K Supplement BP management, BP med adjustment Monitor lytes and renal parameters Kidney ESDRAS , no hydro per orders Previous Uro note: Tolerated bladder tumor resection well. Unfortunately greater part of the bladder is involved and essentially replaced all normal bladder with tumor. I can not resect all the tumors. Patient needs a radical cystectomy (removal of bladder) or radiation/chemotherapy at higher level of care. 1. recommend transfer to higher level of care for cystectomy 2. continue richardson, keep irrigation to maintain light pink urine. Multiple mass like lesions within the bladder. Further evaluation with cystoscopy is recommended to evaluate for possible neoplasm. Multiple parapelvic renal cysts Subjective ROS Limited/Unobtainable: No Constitutional: Reports: malaise, weakness Objective Objective Last 24 Hour Vital Signs Date Time Temp Pulse Resp B/P (MAP) Pulse Ox O2 Delivery O2 Flow Rate FiO2 04/02/19 14:00 120/61 04/02/19 14:00 120/61 04/02/19 12:00 97.0 81 20 120/61 (80) 100 04/02/19 12:00 72 04/02/19 11:14 97.0 04/02/19 09:00 Room Air 04/02/19 08:40 74 108/57 04/02/19 08:39 74 108/57 04/02/19 08:00 97.6 74 19 108/57 (74) 99 04/02/19 08:00 79 04/02/19 07:58 76 20 97 Room Air 21 04/02/19 06:11 122/68 04/02/19 06:00 122/68 04/02/19 04:00 68 04/02/19 04:00 97.8 64 20 149/66 (93) 97 04/02/19 00:00 98.8 78 20 120/66 (84) 100 04/02/19 00:00 78 04/01/19 22:00 105/59 11/17/19 22:00 105/59 04/01/19 21:00 76 105/42 04/01/19 21:00 Room Air 04/01/19 20:00 98.5 72 20 110/59 (76) 100 04/01/19 20:00 78 04/01/19 16:00 75 04/01/19 16:00 98.7 75 20 105/61 (76) 97 Intake and Output 04/01/19 04/02/19 18:59 06:59 Intake Total 240 ml 300 ml Output Total 300 ml Balance -60 ml 300 ml Intake Oral 240 ml 300 ml Output Urine Total 300 ml # Voids 3 # Bowel Movements 1 1 Laboratory Tests 04/01/19 19:36: Stool Occult Blood Positive 04/02/19 07:03: White Blood Count 6.8, Red Blood Count 2.91L, Hemoglobin 8.2L, Hematocrit 26.2L , Mean Corpuscular Volume 90, Mean Corpuscular Hemoglobin 28.3, Mean Corpuscular Hemoglobin Concent 31.4L, Red Cell Distribution Width 18.4H, Platelet Count 88L, Mean Platelet Volume 8.7, Neutrophils (%) (Auto) , Lymphocytes (%) (Auto) , Monocytes (%) (Auto) , Eosinophils (%) (Auto) , Basophils (%) (Auto) , Differential Total Cells Counted 100, Neutrophils % ( Manual) 76H, Lymphocytes % (Manual) 15L, Monocytes % (Manual) 4, Eosinophils % ( Manual) 0, Basophils % (Manual) 0, Band Neutrophils 5, Platelet Estimate DecreasedL, Platelet Morphology Normal, Hypochromasia 1+, Anisocytosis 1+, Sodium Level 152H, Potassium Level 2.7*L, Chloride Level 118H, Carbon Dioxide Level 19L, Anion Gap 15, Blood Urea Nitrogen 74H, Creatinine 3.7H, Estimat Glomerular Filtration Rate , Glucose Level 229H, Hemoglobin A1c 6.7H, Calcium Level 7.2L, Iron Level 13L, Total Iron Binding Capacity 82L, Percent Iron Saturation 16, Unsaturated Iron Binding 69L, Ferritin 208, Total Bilirubin 0.3, Aspartate Amino Transf (AST/SGOT) 34, Alanine Aminotransferase (ALT/SGPT) 10L, Alkaline Phosphatase 52, Total Protein 6.5, Albumin 1.5L, Globulin 5.0, Albumin/ Globulin Ratio 0.3L, Carcinoembryonic Antigen [Pending], Vitamin B12 Level 534, Folate 8.9 Height (Feet): 5 Height (Inches): 9.00 Weight (Pounds): 244 General Appearance: no apparent distress Cardiovascular: normal rate Respiratory/Chest: decreased breath sounds Abdomen: distended Russell Sofia MD Apr 02, 2019 15:05
--- NOTE | 2019-04-02 15:05 | Diagnostic Imaging Report ---
Indications: Shortness of breath and history of deep venous thrombosis Technique: IV administration 5 mCi 99m technetium macroaggregated albumin. Images obtained over the lungs in multiple projections. Previously, patient inhaled 40 mCi aerosolized 99M technetium DTPA. Images obtained over the lungs in multiple projections Comparison: Reference made to chest radiograph of earlier the same day Findings: Perfusion images demonstrate a small subsegmental defect in the posterior right lower lobe. This is matched on the aerosol images No other segmental or subsegmental perfusion defects Impression: Low probability of pulmonary embolus
--- NOTE | 2019-04-02 15:20 | NUR ---
NURSE NOTES: The patient returned back from X-ray and VQ scan.
--- NOTE | 2019-04-02 15:30 | NUR ---
NURSE NOTES: Made Dr. Babb aware of the episode of 13 VT @2:13pm. Awaiting for reply. Addendum: 04/02/19 at 1756 by Dari Delacruz RN Wrong patient Addendum: 04/02/19 at 1757 by Dari Delacruz RN wrong patient
[2019-04-02 16:00] VITALS: BP 124/68
[2019-04-02] MEDS ORDERED: Iron Sucrose 200 MG in NS 50 ML IV ONE (16:00)
--- NOTE | 2019-04-02 16:34 | Diagnostic Imaging Report ---
Indication: Abdominal pain, evaluation for inferior vena cava filter Technique: Supine view of the abdomen Comparison: Abdominal CT scan 12/23/2018 Findings: There is a Oconnor catheter in place. No inferior vena cava filter is visualized. Right upper quadrant calcifications presumably reflect gallstones demonstrated on prior CT scan. Considerable gas is seen in upper limits of normal caliber right-sided small bowel loops Impression: No inferior vena cava filter demonstrated Findings as noted
[2019-04-02] MEDS ORDERED: Lidocaine 1% Plain 30 ml INJ PRN (17:15)
--- NOTE | 2019-04-02 18:34 | NUR ---
CASE MANAGEMENT: REVIEW 83Y/MALE BIBA FROM [facility] CC: RESP DISTRESS . EMS PLACED ON NON-REBREATHER SAT 70% SI: HYPOXIA . AMS T 99.1 HR 60 RR 18 BP 100/70 SAT 96% NC/2L H/H 8.0/26.4 NA 152 K 2.7 BUN 74 CR 3.7 GLUCOSE 229 ABG: PH 7.300 PO2 73.2 HCO3 20.1 SAT 91.8 IS: ZOSYN IV X1 VANCO IV X1 PATIENT ADMITTED TO TELEMETRY UNIT 04/01/2019 DCP: PATIENT IS FROM [facility]
--- NOTE | 2019-04-02 18:52 | Diagnostic Imaging Report ---
APPROVED REPORT CPT Code: 18336 Present Symptoms Lower Extremity Pain: Bilateral RIGHT LEG: Venous imaging reveals acute thrombus in the common to superficial femoral veins. Imaging also reveals patency of the popliteal and calf veins. Greater saphenous vein also within normal limits. LEFT LEG: Venous imaging reveals acute thrombus in the common to superficial femoral veins. Imaging also reveals patency of the popliteal and calf veins. Greater saphenous vein also within normal limits. MATT Trujillo was notified of abnormal results at 1200 hours.
--- NOTE | 2019-04-02 19:27 | NUR ---
HAND-OFF: Report given to Kaleb GUTIERREZ. Pt remains stable..
--- NOTE | 2019-04-02 19:28 | NUR ---
NURSE NOTES: Received pt from MATT Trujillo. Pt is awake and resting in bed in no distress w/ HOB elevated. Iv site intact and patent. Oconnor catheter intact and draining. Pt's bed is locked in lowest position, bed alarm on with call light within reach. Will continue with plan of care.
[2019-04-02 20:00] VITALS: BP 119/55
[2019-04-03 00:15] VITALS: BP 122/62
[2019-04-03 04:00] VITALS: BP 126/53
[2019-04-03] MEDS: HydrALAZINE 50mg tab ORAL SCH ×3 (06:00→22:05)
[2019-04-03] MEDS: NovoLOG Insulin Flexpen SUBQ SCH ×4 (06:05→21:45)
--- NOTE | 2019-04-03 06:51 | NUR ---
NURSE NOTES: Dr. Mcallister saw patient. Received order to obtain consent for IVC filter placement today. Consent signed by Dr. Mcallister, need consent from pt's conservator.
--- NOTE | 2019-04-03 07:15 | NUR ---
HAND-OFF: Report given to MATT Handy. Endorsed plan of care.
--- NOTE | 2019-04-03 07:16 | NUR ---
NURSE NOTES: Received pt from MATT Manuel. in bed resting. Patient denies any pain at this time. No acute distress noted. IV site intact and patent. Oconnor catheter intact and draining to gravity. Bed is locked in lowest position, bed alarm on with call light within reach. Will continue with plan of care.
[2019-04-03 07:23] LABS: HEMATOCRIT 23.6 % (42.0-52.0); HEMOGLOBIN 7.4 G/DL (14.2-18.0); MEAN CORPUSCULAR VOLUME 90 FL (80-99); PLATELET COUNT 73 K/UL (150-450); RED BLOOD COUNT 2.61 M/UL (4.70-6.10); RED CELL DISTRIBUTION WIDTH 17.9 % (11.6-14.8); WHITE BLOOD COUNT 6.1 K/UL (4.8-10.8)
[2019-04-03 07:59] LABS: ALANINE AMINOTRANSFERASE 13 U/L (12-78); ALBUMIN 1.3 G/DL (3.4-5.0); ALBUMIN/GLOBULIN RATIO 0.3 (1.0-2.7); ALKALINE PHOSPHATASE 41 U/L (46-116); ANION GAP 16 mmol/L (5-15); ASPARTATE AMINO TRANSFERASE 30 U/L (15-37); BILIRUBIN,TOTAL 0.3 MG/DL (0.2-1.0); BLOOD UREA NITROGEN 67 mg/dL (7-18); CALCIUM 6.9 MG/DL (8.5-10.1); CARBON DIOXIDE 16 MMOL/L (21-32); CHLORIDE 118 MMOL/L (98-107); POTASSIUM 3.2 MMOL/L (3.5-5.1); SODIUM 150 MMOL/L (136-145)
[2019-04-03 08:00] VITALS: BP 151/58
[2019-04-03 08:11] LABS: PHOSPHORUS 4.3 MG/DL (2.5-4.9)
[2019-04-03] MEDS: Tamsulosin 0.4mg cap ORAL SCH ×2 (08:43→17:25)
[2019-04-03] MEDS: Docusate 100mg cap ORAL SCH ×3 (08:43→17:25)
[2019-04-03] MEDS: Heparin 5000 units/ml inj SUBQ SCH ×2 (08:45→21:00)
[2019-04-03] MEDS: Carvedilol 12.5mg tab ORAL SCH ×2 (08:46→21:00)
--- NOTE | 2019-04-03 09:51 | NUR ---
PT NOTE Patient positive for BLE acute thrombus, possible IVC filter placement today. PT treatment deferred, discussed with Arlene GUTIERREZ, will follow.
[2019-04-03] MEDS ORDERED: Vancomycin 1.25gm/NS Premix IVPB ONE ×2 (10:00→11:30)
--- NOTE | 2019-04-03 10:48 | NUR ---
Rae from [facility] called regarding the blood culture ordered and to confirm patient's information.
--- NOTE | 2019-04-03 10:52 | Hematology/Onc Progress Note ---
Assessment/Plan Assessment/Plan Assessment and Recs: # ACUTE DEEP VEIN THROMBOSIS BILATERAL, new onset, from 04/02/19 --> reviewed images with radiology, goes from common to proximal common femoral v ein --> V/Q scan --> shows low prob pe --> given low h/h and low plts, recommend ivc filter placement, consent has been signed --> cleared with other consultants, zen RN # Bladder cancer requires resection v chemo/xrt -- presented with multi masses CT shows Scattered eccentric mural thickening/masses in the urinary bladder wall , correlating with findings on recent ultrasound. No significant perivesical stranding. Recommend further evaluation with cystoscopy. --> urology consulted, appreciate input --> Uro note from prior admission: Tolerated bladder tumor resection well. Unfortunately greater part of the bladder is involved and essentially replaced all normal bladder with tumor. I can not resect all the tumors. --> may consider chemo/radiation as outpatient --> path does confirm malignancy --> CBI as needed per uro # Thrombocytopenia - potential causes multifactorial, evaluate liver and viral etiologies to begin, also could be related to underlying medications patient has received. --> Hep panel and HIV --> NEGATIVE --> US abd showed bladder masses--> ct reviewed as well --> Peripheral smear ordered to evaluate for blasts /schistocytes --> none noted --> abx and other meds have been reviewed --> ok for ppx if plt >50k w/ either heparin or lovenox --> trend plt >92-->104-->86-->73 # Anemia of iron deficiency likely due to hematuria --> iv iron x 5 days low ferritin, completed from prior admission --> likely due to hematuria --> have started on ivf and consider uro prn cysto --> hgb goal >7 --> cont po folic acid --> hgb trend: 7.4 # Acute renal injury --> cr >1.4-->1.4-->1.7-->1.5-->3.7 --> per renal recs --> volume expansion # HTN --> cards is following, appreciate recs # Hematuria # UTI (urinary tract infection) --> per id on abx, cefe/vanc # Scrotal lesions --> per surg eval # Dehydration # Dvt ppx heparin sqand ivf filter The timing of this note does not necessarily reflect the time of the patient was seen. GREATLY APPRECIATE CONSULTATION. Subjective Allergies: Coded Allergies: No Known Allergies (Unverified , 12/20/18) Subjective 04/03: s/p 1 bag iv iron, hgb 7.4, repeat cbc tomorrow, consent for ivc filter has been signed Objective Objective Current Medications Medications (Trade) Dose Ordered Sig/Sallie Route PRN Reason Start Time Stop Time Status Last Admin Dose Admin Acetaminophen (Tylenol) 650 mg Q4H PRN ORAL fever 04/01/19 08:00 05/01/19 07:59 Albuterol/ Ipratropium (Albuterol/ Ipratropium) 3 ml Q4HRT PRN HHN Shortness of Breath 04/01/19 08:00 04/06/19 07:59 Allopurinol (Allopurinol) 300 mg DAILY ORAL 04/03/19 10:00 05/03/19 09:59 Carvedilol (Coreg) 12.5 mg EVERY 12 HOURS ORAL 04/02/19 21:00 05/01/19 08:59 04/03/19 08:46 Cefepime HCl 1 gm/ Dextrose 55 ml @ 110 mls/hr Q24H IVPB 04/01/19 12:00 04/08/19 11:59 04/02/19 12:24 Dextrose (Dextrose 50%) 25 ml Q30M PRN IV Hypoglycemia 04/01/19 10:30 05/01/19 10:29 Dextrose (Dextrose 50%) 50 ml Q30M PRN IV Hypoglycemia 04/01/19 10:30 05/01/19 10:29 Docusate Sodium (Colace) 100 mg THREE TIMES A DAY ORAL 04/01/19 13:00 05/01/19 12:59 04/03/19 08:43 Heparin Sodium (Porcine) (Heparin 5000 units/ml) 5,000 units EVERY 12 HOURS SUBQ 04/01/19 09:00 05/01/19 08:59 Hydralazine HCl (Apresoline) 50 mg Q8HR ORAL 04/01/19 14:00 05/01/19 13:59 04/02/19 06:11 Insulin Aspart (NovoLOG) BEFORE MEALS AND HS SUBQ 04/01/19 11:30 05/01/19 11:29 04/03/19 06:05 Lidocaine HCl (Xylocaine 1% 30ml) 30 ml NOW PRN INJ Radiology Procedure 04/02/19 17:15 04/05/19 17:06 Minoxidil (Loniten) 2.5 mg Q4H PRN ORAL bp over 165 syst 04/01/19 12:15 05/01/19 12:14 Morphine Sulfate (Morphine Sulfate) 2 mg Q4H PRN IVP Moderate Pain (Pain Scale 4-6) 04/01/19 08:00 04/08/19 07:59 Ondansetron HCl (Zofran) 4 mg Q6H PRN IVP Nausea & Vomiting 04/01/19 08:00 05/01/19 07:59 Pantoprazole (Protonix) 40 mg EVERY 12 HOURS ORAL 04/01/19 21:00 05/01/19 20:59 04/03/19 08:43 Polyethylene Glycol (Miralax) 17 gm DAILYPRN PRN ORAL Constipation 04/01/19 08:00 05/01/19 07:59 Potassium Chloride (K-Dur) 40 meq DAILY ORAL 04/01/19 13:00 05/01/19 12:59 04/03/19 08:43 Sodium Chloride 1,000 ml @ 100 mls/hr Q10H IV 04/01/19 12:45 05/01/19 12:44 04/03/19 05:01 Sodium Citrate (Bicitra) 30 ml EVERY 6 HOURS ORAL 04/03/19 12:00 05/03/19 11:59 Tamsulosin HCl (Flomax) 0.4 mg BID ORAL 04/01/19 13:00 05/01/19 12:59 04/03/19 08:43 Temazepam (Restoril) 15 mg HSPRN PRN ORAL Insomnia 04/01/19 08:00 04/08/19 07:59 Vancomycin HCl (Vanco rx to dose) 1 ea DAILY PRN MISC Per rx protocol 04/01/19 08:15 05/01/19 08:14 Vancomycin/Sodium Chloride 275 ml @ 183.333 mls/hr ONCE ONCE IVPB 04/03/19 11:30 04/03/19 12:59 Last 24 Hour Vital Signs Date Time Temp Pulse Resp B/P (MAP) Pulse Ox O2 Delivery O2 Flow Rate FiO2 04/03/19 09:00 Room Air 04/03/19 08:46 70 151/58 04/03/19 08:00 72 04/03/19 08:00 97.8 72 20 151/58 (89) 96 04/03/19 06:00 111/46 04/03/19 04:00 97.8 77 18 126/53 (77) 96 04/03/19 04:00 77 04/03/19 00:15 98.1 72 20 122/62 (82) 99 04/03/19 00:00 72 04/02/19 21:16 85 16 96 Room Air 21 04/02/19 21:00 74 114/75 04/02/19 21:00 Room Air 04/02/19 20:00 81 04/02/19 20:00 97.8 81 20 119/55 (76) 95 04/02/19 16:00 98.7 70 18 124/68 (86) 98 04/02/19 16:00 82 04/02/19 14:00 120/61 04/02/19 14:00 120/61 04/02/19 12:00 97.0 81 20 120/61 (80) 100 04/02/19 12:00 72 04/02/19 11:14 97.0 04/02/19 09:00 Room Air 04/02/19 08:40 74 108/57 04/02/19 08:39 74 108/57 04/02/19 08:00 97.6 74 19 108/57 (74) 99 04/02/19 08:00 79 04/02/19 07:58 76 20 97 Room Air 21 04/02/19 06:11 122/68 04/02/19 06:00 122/68 04/02/19 04:00 68 04/02/19 04:00 97.8 64 20 149/66 (93) 97 04/02/19 00:00 98.8 78 20 120/66 (84) 100 04/02/19 00:00 78 04/01/19 22:00 105/59 04/01/19 22:00 105/59 04/01/19 21:00 76 105/42 04/01/19 21:00 Room Air 04/01/19 20:00 98.5 72 20 110/59 (76) 100 04/01/19 20:00 78 04/01/19 16:00 75 04/01/19 16:00 98.7 75 20 105/61 (76) 97 04/01/19 14:28 141/76 04/01/19 14:28 141/76 04/01/19 12:28 97.2 79 18 141/76 (97) 91 04/01/19 12:00 67 04/01/19 10:51 Nasal Cannula 2.0 Intake and Output 04/02/19 04/03/19 19:00 07:00 Intake Total 1435 ml 20 ml Output Total 460 ml 420 ml Balance 975 ml -400 ml Intake Oral 120 ml 20 ml IV Total 1315 ml Output Urine Total 460 ml 420 ml # Voids 4 # Bowel Movements 5 1 Labs Test 04/01/19 04:45 04/01/19 05:00 04/01/19 05:30 04/01/19 08:14 Arterial Blood pH 7.300 (7.350-7.450) Arterial Blood Partial Pressure CO2 41.8 mmHg (35.0-45.0) Arterial Blood Partial Pressure O2 73.2 mmHg (75.0-100.0) Arterial Blood HCO3 20.1 mmol/L (22.0-26.0) Arterial Blood Oxygen Saturation 91.8 % (95-100) Arterial Blood Base Excess -5.9 (-2-2) Guillaume Test Positive White Blood Count 8.3 K/UL (4.8-10.8) Red Blood Count 2.87 M/UL (4.70-6.10) Hemoglobin 8.0 G/DL (14.2-18.0) Hematocrit 26.4 % (42.0-52.0) Mean Corpuscular Volume 92 FL (80-99) Mean Corpuscular Hemoglobin 28.0 PG (27.0-31.0) Mean Corpuscular Hemoglobin Concent 30.4 G/DL (32.0-36.0) Red Cell Distribution Width 19.9 % (11.6-14.8) Platelet Count 105 K/UL (150-450) Mean Platelet Volume 7.8 FL (6.5-10.1) Neutrophils (%) (Auto) 80.1 % (45.0-75.0) Lymphocytes (%) (Auto) 9.9 % (20.0-45.0) Monocytes (%) (Auto) 9.2 % (1.0-10.0) Eosinophils (%) (Auto) 0.1 % (0.0-3.0) Basophils (%) (Auto) 0.6 % (0.0-2.0) Prothrombin Time 11.4 SEC (9.30-11.50) Prothromb Time International Ratio 1.1 (0.9-1.1) Activated Partial Thromboplast Time 27 SEC (23-33) Sodium Level 155 MMOL/L (136-145) Potassium Level 3.0 MMOL/L (3.5-5.1) Chloride Level 121 MMOL/L (98-107) Carbon Dioxide Level 20 MMOL/L (21-32) Anion Gap 14 mmol/L (5-15) Blood Urea Nitrogen 68 mg/dL (7-18) Creatinine 3.8 MG/DL (0.55-1.30) Estimat Glomerular Filtration Rate mL/min (>60) Glucose Level 269 MG/DL (74-106) Lactic Acid Level 1.10 mmol/L (0.4-2.0) Calcium Level 7.2 MG/DL (8.5-10.1) Phosphorus Level 5.4 MG/DL (2.5-4.9) Magnesium Level 2.4 MG/DL (1.8-2.4) Total Bilirubin 0.3 MG/DL (0.2-1.0) Aspartate Amino Transf (AST/SGOT) 46 U/L (15-37) Alanine Aminotransferase (ALT/SGPT) 8 U/L (12-78) Alkaline Phosphatase 44 U/L (46-116) Total Creatine Kinase 907 U/L (26-308) Creatine Kinase MB 5.6 NG/ML (0.0-3.6) Creatine Kinase MB Relative Index 0.6 Troponin I 0.029 ng/mL (0.000-0.056) C-Reactive Protein, Quantitative 16.7 mg/dL (0.00-0.90) Pro-B-Type Natriuretic Peptide 540 pg/mL (0-125) Total Protein 6.4 G/DL (6.4-8.2) Albumin 1.5 G/DL (3.4-5.0) Globulin 4.9 g/dL Albumin/Globulin Ratio 0.3 (1.0-2.7) Lipase 178 U/L (73-393) Urine Color Brown Yellow Urine Appearance Very cloudy Cloudy Urine pH 5 (4.5-8.0) 6 (4.5-8.0) Urine Specific [place] 1.020 (1.005-1.035) 1.015 (1.005-1.035) Urine Protein 4+ (NEGATIVE) 3+ (NEGATIVE) Urine Glucose (UA) 2+ (NEGATIVE) 2+ (NEGATIVE) Urine Ketones 1+ (NEGATIVE) 1+ (NEGATIVE) Urine Blood 3+ (NEGATIVE) 5+ (NEGATIVE) Urine Nitrite Negative (NEGATIVE) Negative (NEGATIVE) Urine Bilirubin Negative (NEGATIVE) Negative (NEGATIVE) Urine Urobilinogen Normal MG/DL (0.0-1.0) Normal MG/DL (0.0-1.0) Urine Leukocyte Esterase 3+ (NEGATIVE) 3+ (NEGATIVE) Urine RBC 15-20 /HPF (0 - 0) 30-40 /HPF (0 - 0) Urine WBC Tntc /HPF (0 - 0) 60-80 /HPF (0 - 0) Urine Squamous Epithelial Cells Moderate /LPF (NONE/OCC) Few /LPF (NONE/OCC) Urine Bacteria Many /HPF (NONE) Moderate /HPF (NONE) Test 04/01/19 19:36 04/02/19 07:03 04/03/19 06:35 Stool Occult Blood Positive (NEGATIVE) White Blood Count 6.8 K/UL (4.8-10.8) 6.1 K/UL (4.8-10.8) Red Blood Count 2.91 M/UL (4.70-6.10) 2.61 M/UL (4.70-6.10) Hemoglobin 8.2 G/DL (14.2-18.0) 7.4 G/DL (14.2-18.0) Hematocrit 26.2 % (42.0-52.0) 23.6 % (42.0-52.0) Mean Corpuscular Volume 90 FL (80-99) 90 FL (80-99) Mean Corpuscular Hemoglobin 28.3 PG (27.0-31.0) 28.3 PG (27.0-31.0) Mean Corpuscular Hemoglobin Concent 31.4 G/DL (32.0-36.0) 31.3 G/DL (32.0-36.0) Red Cell Distribution Width 18.4 % (11.6-14.8) 17.9 % (11.6-14.8) Platelet Count 88 K/UL (150-450) 73 K/UL (150-450) Mean Platelet Volume 8.7 FL (6.5-10.1) 9.2 FL (6.5-10.1) Neutrophils (%) (Auto) % (45.0-75.0) % (45.0-75.0) Lymphocytes (%) (Auto) % (20.0-45.0) % (20.0-45.0) Monocytes (%) (Auto) % (1.0-10.0) % (1.0-10.0) Eosinophils (%) (Auto) % (0.0-3.0) % (0.0-3.0) Basophils (%) (Auto) % (0.0-2.0) % (0.0-2.0) Differential Total Cells Counted 100 100 Neutrophils % (Manual) 76 % (45-75) 68 % (45-75) Lymphocytes % (Manual) 15 % (20-45) 12 % (20-45) Monocytes % (Manual) 4 % (1-10) 19 % (1-10) Eosinophils % (Manual) 0 % (0-3) 1 % (0-3) Basophils % (Manual) 0 % (0-2) 0 % (0-2) Band Neutrophils 5 % (0-8) 0 % (0-8) Platelet Estimate Decreased Decreased Platelet Morphology Normal Normal Hypochromasia 1+ 1+ Anisocytosis 1+ 1+ Sodium Level 152 MMOL/L (136-145) 150 MMOL/L (136-145) Potassium Level 2.7 MMOL/L (3.5-5.1) 3.2 MMOL/L (3.5-5.1) Chloride Level 118 MMOL/L (98-107) 118 MMOL/L (98-107) Carbon Dioxide Level 19 MMOL/L (21-32) 16 MMOL/L (21-32) Anion Gap 15 mmol/L (5-15) 16 mmol/L (5-15) Blood Urea Nitrogen 74 mg/dL (7-18) 67 mg/dL (7-18) Creatinine 3.7 MG/DL (0.55-1.30) 3.0 MG/DL (0.55-1.30) Estimat Glomerular Filtration Rate mL/min (>60) mL/min (>60) Glucose Level 229 MG/DL (74-106) 168 MG/DL (74-106) Hemoglobin A1c 6.7 % (4.3-6.0) Calcium Level 7.2 MG/DL (8.5-10.1) 6.9 MG/DL (8.5-10.1) Iron Level 13 ug/dL (50-175) Total Iron Binding Capacity 82 ug/dL (250-450) Percent Iron Saturation 16 % (15-50) Unsaturated Iron Binding 69 ug/dL (112-346) Ferritin 208 NG/ML (8-388) Total Bilirubin 0.3 MG/DL (0.2-1.0) 0.3 MG/DL (0.2-1.0) Aspartate Amino Transf (AST/SGOT) 34 U/L (15-37) 30 U/L (15-37) Alanine Aminotransferase (ALT/SGPT) 10 U/L (12-78) 13 U/L (12-78) Alkaline Phosphatase 52 U/L (46-116) 41 U/L (46-116) Total Protein 6.5 G/DL (6.4-8.2) 5.7 G/DL (6.4-8.2) Albumin 1.5 G/DL (3.4-5.0) 1.3 G/DL (3.4-5.0) Globulin 5.0 g/dL 4.4 g/dL Albumin/Globulin Ratio 0.3 (1.0-2.7) 0.3 (1.0-2.7) Vitamin B12 Level 534 PG/ML (193-986) Folate 8.9 NG/ML (8.6-58.9) Uric Acid 16.1 MG/DL (2.6-7.2) Phosphorus Level 4.3 MG/DL (2.5-4.9) Magnesium Level 2.3 MG/DL (1.8-2.4) C-Reactive Protein, Quantitative 28.5 mg/dL (0.00-0.90) Pro-B-Type Natriuretic Peptide 599 pg/mL (0-125) Random Vancomycin Level 8.0 ug/mL Height (Feet): 5 Height (Inches): 9.00 Weight (Pounds): 244 Objective Physical Exam Vital Signs: have been reviewed General Appearance: non-toxic, obese, Chronically Ill Respiratory: chest non-tender, lungs clear, mirian BSs, no rhonchi Cardiovascular: normal inspection, regular rate, rhythm, GI: normal inspection, soft Genitourinary: MANZANO+ Musculoskeletal: normal inspection Neurologic: normal inspection, alert Psychiatric: normal inspection Skin: other - Marcelo Shen MD Apr 03, 2019 10:52
--- NOTE | 2019-04-03 11:18 | Pulmonology Progress Note ---
Assessment/Plan Problems: (1) Acute respiratory failure with hypoxemia (2) Acute deep vein thrombosis (DVT) of both femoral veins (3) Thrombocytopenia (4) Invasive carcinoma of urinary bladder (5) CAD (coronary artery disease) (6) Anemia (7) Diabetes (8) HTN (hypertension) Assessment/Plan V/q scan showed low probability PE respiratory treatment check electrolytes titrate fiio2 to sat of 92% dvt prophylaxis. venous studies of legs showed acute DVT bilaterally \ needs IVC filter Subjective ROS Limited/Unobtainable: Yes Constitutional: Reports: no symptoms HEENT: Repors: no symptoms Respiratory: Reports: no symptoms Allergies: Coded Allergies: No Known Allergies (Unverified , 12/20/18) Objective Last 24 Hour Vital Signs Date Time Temp Pulse Resp B/P (MAP) Pulse Ox O2 Delivery O2 Flow Rate FiO2 04/03/19 09:00 Room Air 04/03/19 08:46 70 151/58 04/03/19 08:00 72 04/03/19 08:00 97.8 72 20 151/58 (89) 96 04/03/19 06:00 111/46 04/03/19 04:00 97.8 77 18 126/53 (77) 96 04/03/19 04:00 77 04/03/19 00:15 98.1 72 20 122/62 (82) 99 04/03/19 00:00 72 04/02/19 21:16 85 16 96 Room Air 21 04/02/19 21:00 74 114/75 04/02/19 21:00 Room Air 04/02/19 20:00 81 04/02/19 20:00 97.8 81 20 119/55 (76) 95 04/02/19 16:00 98.7 70 18 124/68 (86) 98 04/02/19 16:00 82 04/02/19 14:00 120/61 04/02/19 14:00 120/61 04/02/19 12:00 97.0 81 20 120/61 (80) 100 04/02/19 12:00 72 Intake and Output 04/02/19 04/03/19 19:00 07:00 Intake Total 1435 ml 20 ml Output Total 460 ml 420 ml Balance 975 ml -400 ml Intake Oral 120 ml 20 ml IV Total 1315 ml Output Urine Total 460 ml 420 ml # Voids 4 # Bowel Movements 5 1 General Appearance: WD/WN HEENT: normocephalic, atraumatic Respiratory/Chest: chest wall non-tender, lungs clear, chest wall tender Cardiovascular: normal rate Abdomen: normal bowel sounds, no organomegaly Genitourinary: normal external genitalia Extremities: no clubbing Skin: no rash 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 Microbiology Date/Time Source Procedure Growth Status 04/01/19 05:30 Blood Blood Culture - Preliminary Gram Positive Cocci Resulted 04/01/19 05:15 Blood Blood Culture - Preliminary Gram Positive Cocci Resulted 04/01/19 05:30 Nasal Nares - Final Complete 04/01/19 05:30 Nasal Nares - Final Complete 04/01/19 08:14 Urine,Clean Catch Urine Culture - Preliminary NO GROWTH Resulted 04/01/19 05:30 Urine,Clean Catch Urine Culture - Preliminary Gram Positive Cocci Resulted Laboratory Tests 04/03/19 06:35: White Blood Count 6.1, Red Blood Count 2.61L, Hemoglobin 7.4L, Hematocrit 23.6L , Mean Corpuscular Volume 90, Mean Corpuscular Hemoglobin 28.3, Mean Corpuscular Hemoglobin Concent 31.3L, Red Cell Distribution Width 17.9H, Platelet Count 73L, Mean Platelet Volume 9.2, Neutrophils (%) (Auto) , Lymphocytes (%) (Auto) , Monocytes (%) (Auto) , Eosinophils (%) (Auto) , Basophils (%) (Auto) , Differential Total Cells Counted 100, Neutrophils % ( Manual) 68, Lymphocytes % (Manual) 12L, Monocytes % (Manual) 19H, Eosinophils % (Manual) 1, Basophils % (Manual) 0, Band Neutrophils 0, Platelet Estimate DecreasedL, Platelet Morphology Normal, Hypochromasia 1+, Anisocytosis 1+, Sodium Level 150H, Potassium Level 3.2L, Chloride Level 118H, Carbon Dioxide Level 16L, Anion Gap 16H, Blood Urea Nitrogen 67H, Creatinine 3.0H, Estimat Glomerular Filtration Rate , Glucose Level 168H, Uric Acid 16.1H, Calcium Level 6.9L, Phosphorus Level 4.3, Magnesium Level 2.3, Total Bilirubin 0.3, Aspartate Amino Transf (AST/SGOT) 30, Alanine Aminotransferase (ALT/SGPT) 13, Alkaline Phosphatase 41L, C-Reactive Protein, Quantitative 28.5H, Pro-B-Type Natriuretic Peptide 599H, Total Protein 5.7L, Albumin 1.3L, Globulin 4.4, Albumin/Globulin Ratio 0.3L, Cortisol AM Sample [Pending], Random Vancomycin Level 8.0 Current Medications Medications (Trade) Dose Ordered Sig/Sallie Route PRN Reason Start Time Stop Time Status Last Admin Dose Admin Acetaminophen (Tylenol) 650 mg Q4H PRN ORAL fever 04/01/19 08:00 05/01/19 07:59 Albuterol/ Ipratropium (Albuterol/ Ipratropium) 3 ml Q4HRT PRN HHN Shortness of Breath 04/01/19 08:00 04/06/19 07:59 Allopurinol (Allopurinol) 300 mg DAILY ORAL 04/03/19 10:00 05/03/19 09:59 04/03/19 11:00 Carvedilol (Coreg) 12.5 mg EVERY 12 HOURS ORAL 04/02/19 21:00 05/01/19 08:59 04/03/19 08:46 Cefepime HCl 1 gm/ Dextrose 55 ml @ 110 mls/hr Q24H IVPB 04/01/19 12:00 04/08/19 11:59 04/02/19 12:24 Dextrose (Dextrose 50%) 25 ml Q30M PRN IV Hypoglycemia 04/01/19 10:30 05/01/19 10:29 Dextrose (Dextrose 50%) 50 ml Q30M PRN IV Hypoglycemia 04/01/19 10:30 05/01/19 10:29 Docusate Sodium (Colace) 100 mg THREE TIMES A DAY ORAL 04/01/19 13:00 05/01/19 12:59 04/03/19 08:43 Heparin Sodium (Porcine) (Heparin 5000 units/ml) 5,000 units EVERY 12 HOURS SUBQ 04/01/19 09:00 05/01/19 08:59 Hydralazine HCl (Apresoline) 50 mg Q8HR ORAL 04/01/19 14:00 05/01/19 13:59 04/02/19 06:11 Insulin Aspart (NovoLOG) BEFORE MEALS AND HS SUBQ 04/01/19 11:30 05/01/19 11:29 04/03/19 06:05 Lidocaine HCl (Xylocaine 1% 30ml) 30 ml NOW PRN INJ Radiology Procedure 04/02/19 17:15 04/05/19 17:06 Minoxidil (Loniten) 2.5 mg Q4H PRN ORAL bp over 165 syst 04/01/19 12:15 05/01/19 12:14 Morphine Sulfate (Morphine Sulfate) 2 mg Q4H PRN IVP Moderate Pain (Pain Scale 4-6) 04/01/19 08:00 04/08/19 07:59 Ondansetron HCl (Zofran) 4 mg Q6H PRN IVP Nausea & Vomiting 04/01/19 08:00 05/01/19 07:59 Pantoprazole (Protonix) 40 mg EVERY 12 HOURS ORAL 04/01/19 21:00 05/01/19 20:59 04/03/19 08:43 Polyethylene Glycol (Miralax) 17 gm DAILYPRN PRN ORAL Constipation 04/01/19 08:00 05/01/19 07:59 Potassium Chloride (K-Dur) 40 meq DAILY ORAL 04/01/19 13:00 05/01/19 12:59 04/03/19 08:43 Sodium Chloride 1,000 ml @ 100 mls/hr Q10H IV 04/01/19 12:45 05/01/19 12:44 04/03/19 05:01 Sodium Citrate (Bicitra) 30 ml EVERY 6 HOURS ORAL 04/03/19 12:00 05/03/19 11:59 Tamsulosin HCl (Flomax) 0.4 mg BID ORAL 04/01/19 13:00 05/01/19 12:59 04/03/19 08:43 Temazepam (Restoril) 15 mg HSPRN PRN ORAL Insomnia 04/01/19 08:00 04/08/19 07:59 Vancomycin HCl (Vanco rx to dose) 1 ea DAILY PRN MISC Per rx protocol 04/01/19 08:15 05/01/19 08:14 Vancomycin/Sodium Chloride 275 ml @ 183.333 mls/hr ONCE ONCE IVPB 04/03/19 11:30 04/03/19 12:59 Adam Moyer MD Apr 03, 2019 11:18
[2019-04-03] MEDS: Sodium Citrate 30ml ORAL SCH ×2 (11:43→17:26)
[2019-04-03] MEDS: Cefepime 1gm in D5W 55ml IVPB SCH (11:43)
--- NOTE | 2019-04-03 11:56 | Nephrology Progress Note ---
Assessment/Plan Problem List: (1) ARF (acute renal failure) (2) Acute on chronic renal insufficiency (3) Diabetes (4) HTN (hypertension) (5) Bladder cancer (6) Invasive carcinoma of urinary bladder (7) Anemia Assessment Acute renal failure ? Superimposed CKD Bladder Mass / h/o Hematuria HTN DM Anemia, previous transfusions s/p Cystoscopy 12/28 Plan favor transfusion Hydrate richardson IV Iron K Supplement BP management, BP med adjustment Monitor lytes and renal parameters Kidney ESDRAS , no hydro per orders Previous Uro note: Tolerated bladder tumor resection well. Unfortunately greater part of the bladder is involved and essentially replaced all normal bladder with tumor. I can not resect all the tumors. Patient needs a radical cystectomy (removal of bladder) or radiation/chemotherapy at higher level of care. 1. recommend transfer to higher level of care for cystectomy 2. continue richardson, keep irrigation to maintain light pink urine. Multiple mass like lesions within the bladder. Further evaluation with cystoscopy is recommended to evaluate for possible neoplasm. Multiple parapelvic renal cysts Subjective ROS Limited/Unobtainable: No Constitutional: Reports: malaise, weakness Objective Objective Last 24 Hour Vital Signs Date Time Temp Pulse Resp B/P (MAP) Pulse Ox O2 Delivery O2 Flow Rate FiO2 04/03/19 09:00 Room Air 04/03/19 08:46 70 151/58 04/03/19 08:00 72 04/03/19 08:00 97.8 72 20 151/58 (89) 96 04/03/19 06:00 111/46 04/03/19 04:00 97.8 77 18 126/53 (77) 96 04/03/19 04:00 77 04/03/19 00:15 98.1 72 20 122/62 (82) 99 04/03/19 00:00 72 04/02/19 21:16 85 16 96 Room Air 21 04/02/19 21:00 74 114/75 04/02/19 21:00 Room Air 04/02/19 20:00 81 04/02/19 20:00 97.8 81 20 119/55 (76) 95 04/02/19 16:00 98.7 70 18 124/68 (86) 98 04/02/19 16:00 82 04/02/19 14:00 120/61 04/02/19 14:00 120/61 04/02/19 12:00 97.0 81 20 120/61 (80) 100 04/02/19 12:00 72 Intake and Output 04/02/19 04/03/19 19:00 07:00 Intake Total 1435 ml 20 ml Output Total 460 ml 420 ml Balance 975 ml -400 ml Intake Oral 120 ml 20 ml IV Total 1315 ml Output Urine Total 460 ml 420 ml # Voids 4 # Bowel Movements 5 1 Laboratory Tests 04/03/19 06:35: White Blood Count 6.1, Red Blood Count 2.61L, Hemoglobin 7.4L, Hematocrit 23.6L , Mean Corpuscular Volume 90, Mean Corpuscular Hemoglobin 28.3, Mean Corpuscular Hemoglobin Concent 31.3L, Red Cell Distribution Width 17.9H, Platelet Count 73L, Mean Platelet Volume 9.2, Neutrophils (%) (Auto) , Lymphocytes (%) (Auto) , Monocytes (%) (Auto) , Eosinophils (%) (Auto) , Basophils (%) (Auto) , Differential Total Cells Counted 100, Neutrophils % ( Manual) 68, Lymphocytes % (Manual) 12L, Monocytes % (Manual) 19H, Eosinophils % (Manual) 1, Basophils % (Manual) 0, Band Neutrophils 0, Platelet Estimate DecreasedL, Platelet Morphology Normal, Hypochromasia 1+, Anisocytosis 1+, Sodium Level 150H, Potassium Level 3.2L, Chloride Level 118H, Carbon Dioxide Level 16L, Anion Gap 16H, Blood Urea Nitrogen 67H, Creatinine 3.0H, Estimat Glomerular Filtration Rate , Glucose Level 168H, Uric Acid 16.1H, Calcium Level 6.9L, Phosphorus Level 4.3, Magnesium Level 2.3, Total Bilirubin 0.3, Aspartate Amino Transf (AST/SGOT) 30, Alanine Aminotransferase (ALT/SGPT) 13, Alkaline Phosphatase 41L, C-Reactive Protein, Quantitative 28.5H, Pro-B-Type Natriuretic Peptide 599H, Total Protein 5.7L, Albumin 1.3L, Globulin 4.4, Albumin/Globulin Ratio 0.3L, Cortisol AM Sample [Pending], Random Vancomycin Level 8.0 Height (Feet): 5 Height (Inches): 9.00 Weight (Pounds): 244 General Appearance: no apparent distress Cardiovascular: normal rate Respiratory/Chest: decreased breath sounds Abdomen: distended Fouladian,Russell MD Apr 03, 2019 11:56
[2019-04-03 12:00] VITALS: BP 151/60
--- NOTE | 2019-04-03 12:01 | Infectious Diseases Prog Note ---
Assessment/Plan Assessment/Plan 83yo gentleman with PMH below presents from half-way with confusion, wheezing and desaturation between 83-90%. Pt is oriented to self. Does not know where he is or why he is in the hospital. He initially says yes to abdominal pain, suprapubic pain, leg pain, arm pain but then denied it on second question. Denies fever, chills, cough, sob, diarrhea, dysuria. Unclear baseline. Pt recently had blood transfusion at [facility] 03/06. Pt was recently diagnosed with bladder cancer 12/2018 Afebrile On RA No leukocytosis No lactic acidosis Hypoxia at half-way, SP Possible PNA? flu swab negative CXR: Mild diffuse airspace opacities in both lungs. Lungs are underinflated.Lung findings are likely due to underinflation rather than pulmonary edema or atelectasis. Possible UTI? UA WBC TNTC, also moderate epithelial cells UCx: GPC r/o bacteremia 04/01 BCx: GPC 04/02 BCx: P Acute DVT pending IVC filter RIGHT LEG: Venous imaging reveals acute thrombus in the common to superficial femoral veins. LEFT LEG: Venous imaging reveals acute thrombus in the common to superficial femoral veins. Hypokalemia ANGELA on CKD CAD Bladder cancer HTN DM CVA Dyslipidemia CKD Anemia BPH Plan: continue cefepime and vancomycin #3 f/u bcx f/u ucx f/u MRSA screen aspiration precaution, elevate HOB monitor temp and CBC given GPC bacteremia, while we understand the urgency of the IVC filter, would wait for speciation and negative repeat blood cultures Thank you for this consult. [facility] will continue to follow the patient with you. Ashley Wasserman MD Apr 01, 2019 09:43 Subjective Allergies: Coded Allergies: No Known Allergies (Unverified , 12/20/18) Subjective Afebrile. RA. No leukocytosis at bedside. No complaints Objective Vital Signs Last 24 Hour Vital Signs Date Time Temp Pulse Resp B/P (MAP) Pulse Ox O2 Delivery O2 Flow Rate FiO2 04/03/19 09:00 Room Air 04/03/19 08:46 70 151/58 04/03/19 08:00 72 04/03/19 08:00 97.8 72 20 151/58 (89) 96 04/03/19 06:00 111/46 04/03/19 04:00 97.8 77 18 126/53 (77) 96 04/03/19 04:00 77 04/03/19 00:15 98.1 72 20 122/62 (82) 99 04/03/19 00:00 72 04/02/19 21:16 85 16 96 Room Air 21 04/02/19 21:00 74 114/75 04/02/19 21:00 Room Air 04/02/19 20:00 81 04/02/19 20:00 97.8 81 20 119/55 (76) 95 04/02/19 16:00 98.7 70 18 124/68 (86) 98 04/02/19 16:00 82 04/02/19 14:00 120/61 04/02/19 14:00 120/61 04/02/19 12:00 97.0 81 20 120/61 (80) 100 04/02/19 12:00 72 Height (Feet): 5 Height (Inches): 9.00 Weight (Pounds): 244 Objective Gen: NAD HEENT: anicteric sclera CV: RRR Resp: RRR Abd: normoactive Bs+. Soft. No TTP Back: no flank pain Neuro: AAOx1 Microbiology Date/Time Source Procedure Growth Status 04/01/19 05:30 Blood Blood Culture - Preliminary Gram Positive Cocci Resulted 04/01/19 05:15 Blood Blood Culture - Preliminary Gram Positive Cocci Resulted 04/01/19 05:30 Nasal Nares - Final Complete 04/01/19 05:30 Nasal Nares - Final Complete 04/01/19 08:14 Urine,Clean Catch Urine Culture - Preliminary NO GROWTH Resulted 04/01/19 05:30 Urine,Clean Catch Urine Culture - Preliminary Gram Positive Cocci Resulted Laboratory Tests Test 04/03/19 06:35 White Blood Count 6.1 K/UL (4.8-10.8) Red Blood Count 2.61 M/UL (4.70-6.10) L Hemoglobin 7.4 G/DL (14.2-18.0) L Hematocrit 23.6 % (42.0-52.0) L Mean Corpuscular Volume 90 FL (80-99) Mean Corpuscular Hemoglobin 28.3 PG (27.0-31.0) Mean Corpuscular Hemoglobin Concent 31.3 G/DL (32.0-36.0) L Red Cell Distribution Width 17.9 % (11.6-14.8) H Platelet Count 73 K/UL (150-450) L Mean Platelet Volume 9.2 FL (6.5-10.1) Neutrophils (%) (Auto) % (45.0-75.0) Lymphocytes (%) (Auto) % (20.0-45.0) Monocytes (%) (Auto) % (1.0-10.0) Eosinophils (%) (Auto) % (0.0-3.0) Basophils (%) (Auto) % (0.0-2.0) Differential Total Cells Counted 100 Neutrophils % (Manual) 68 % (45-75) Lymphocytes % (Manual) 12 % (20-45) L Monocytes % (Manual) 19 % (1-10) H Eosinophils % (Manual) 1 % (0-3) Basophils % (Manual) 0 % (0-2) Band Neutrophils 0 % (0-8) Platelet Estimate Decreased L Platelet Morphology Normal Hypochromasia 1+ Anisocytosis 1+ Sodium Level 150 MMOL/L (136-145) H Potassium Level 3.2 MMOL/L (3.5-5.1) L Chloride Level 118 MMOL/L (98-107) H Carbon Dioxide Level 16 MMOL/L (21-32) L Anion Gap 16 mmol/L (5-15) H Blood Urea Nitrogen 67 mg/dL (7-18) H Creatinine 3.0 MG/DL (0.55-1.30) H Estimat Glomerular Filtration Rate mL/min (>60) Glucose Level 168 MG/DL (74-106) H Uric Acid 16.1 MG/DL (2.6-7.2) H Calcium Level 6.9 MG/DL (8.5-10.1) L Phosphorus Level 4.3 MG/DL (2.5-4.9) Magnesium Level 2.3 MG/DL (1.8-2.4) Total Bilirubin 0.3 MG/DL (0.2-1.0) Aspartate Amino Transf (AST/SGOT) 30 U/L (15-37) Alanine Aminotransferase (ALT/SGPT) 13 U/L (12-78) Alkaline Phosphatase 41 U/L (46-116) L C-Reactive Protein, Quantitative 28.5 mg/dL (0.00-0.90) H Pro-B-Type Natriuretic Peptide 599 pg/mL (0-125) H Total Protein 5.7 G/DL (6.4-8.2) L Albumin 1.3 G/DL (3.4-5.0) L Globulin 4.4 g/dL Albumin/Globulin Ratio 0.3 (1.0-2.7) L Cortisol AM Sample Pending Random Vancomycin Level 8.0 ug/mL Current Medications Medications (Trade) Dose Ordered Sig/Sallie Route PRN Reason Start Time Stop Time Status Last Admin Dose Admin Acetaminophen (Tylenol) 650 mg Q4H PRN ORAL fever 04/01/19 08:00 05/01/19 07:59 Albuterol/ Ipratropium (Albuterol/ Ipratropium) 3 ml Q4HRT PRN HHN Shortness of Breath 04/01/19 08:00 04/06/19 07:59 Allopurinol (Allopurinol) 300 mg DAILY ORAL 04/03/19 10:00 05/03/19 09:59 04/03/19 11:00 Carvedilol (Coreg) 12.5 mg EVERY 12 HOURS ORAL 04/02/19 21:00 05/01/19 08:59 04/03/19 08:46 Cefepime HCl 1 gm/ Dextrose 55 ml @ 110 mls/hr Q24H IVPB 04/01/19 12:00 04/08/19 11:59 04/03/19 11:43 Dextrose (Dextrose 50%) 25 ml Q30M PRN IV Hypoglycemia 04/01/19 10:30 05/01/19 10:29 Dextrose (Dextrose 50%) 50 ml Q30M PRN IV Hypoglycemia 04/01/19 10:30 05/01/19 10:29 Docusate Sodium (Colace) 100 mg THREE TIMES A DAY ORAL 04/01/19 13:00 05/01/19 12:59 04/03/19 08:43 Heparin Sodium (Porcine) (Heparin 5000 units/ml) 5,000 units EVERY 12 HOURS SUBQ 04/01/19 09:00 05/01/19 08:59 Hydralazine HCl (Apresoline) 50 mg Q8HR ORAL 04/01/19 14:00 05/01/19 13:59 04/02/19 06:11 Insulin Aspart (NovoLOG) BEFORE MEALS AND HS SUBQ 04/01/19 11:30 05/01/19 11:29 04/03/19 11:45 Lidocaine HCl (Xylocaine 1% 30ml) 30 ml NOW PRN INJ Radiology Procedure 04/02/19 17:15 04/05/19 17:06 Minoxidil (Loniten) 2.5 mg Q4H PRN ORAL bp over 165 syst 04/01/19 12:15 05/01/19 12:14 Morphine Sulfate (Morphine Sulfate) 2 mg Q4H PRN IVP Moderate Pain (Pain Scale 4-6) 04/01/19 08:00 04/08/19 07:59 Ondansetron HCl (Zofran) 4 mg Q6H PRN IVP Nausea & Vomiting 04/01/19 08:00 05/01/19 07:59 Pantoprazole (Protonix) 40 mg EVERY 12 HOURS ORAL 04/01/19 21:00 05/01/19 20:59 04/03/19 08:43 Polyethylene Glycol (Miralax) 17 gm DAILYPRN PRN ORAL Constipation 04/01/19 08:00 05/01/19 07:59 Potassium Chloride (K-Dur) 40 meq DAILY ORAL 04/01/19 13:00 05/01/19 12:59 04/03/19 08:43 Sodium Chloride 1,000 ml @ 100 mls/hr Q10H IV 04/01/19 12:45 05/01/19 12:44 04/03/19 05:01 Sodium Citrate (Bicitra) 30 ml EVERY 6 HOURS ORAL 04/03/19 12:00 05/03/19 11:59 04/03/19 11:43 Tamsulosin HCl (Flomax) 0.4 mg BID ORAL 04/01/19 13:00 05/01/19 12:59 04/03/19 08:43 Temazepam (Restoril) 15 mg HSPRN PRN ORAL Insomnia 04/01/19 08:00 04/08/19 07:59 Vancomycin HCl (Vanco rx to dose) 1 ea DAILY PRN MISC Per rx protocol 04/01/19 08:15 05/01/19 08:14 Vancomycin/Sodium Chloride 275 ml @ 183.333 mls/hr ONCE ONCE IVPB 04/03/19 11:30 04/03/19 12:59 04/03/19 11:43 Ashley Wasserman MD Apr 03, 2019 12:01
--- NOTE | 2019-04-03 12:18 | Surgery Progress Note ---
Surgery Progress Note Subjective Additional Comments no acute events comfortable stable labs noted US noted - b/l significant DvT. discussed with heme. agree with IVC filter Objective Last 24 Hour Vital Signs Date Time Temp Pulse Resp B/P (MAP) Pulse Ox O2 Delivery O2 Flow Rate FiO2 04/03/19 09:00 Room Air 04/03/19 08:46 70 151/58 04/03/19 08:00 72 04/03/19 08:00 97.8 72 20 151/58 (89) 96 04/03/19 06:00 111/46 04/03/19 04:00 97.8 77 18 126/53 (77) 96 04/03/19 04:00 77 04/03/19 00:15 98.1 72 20 122/62 (82) 99 04/03/19 00:00 72 04/02/19 21:16 85 16 96 Room Air 21 04/02/19 21:00 74 114/75 04/02/19 21:00 Room Air 04/02/19 20:00 81 04/02/19 20:00 97.8 81 20 119/55 (76) 95 04/02/19 16:00 98.7 70 18 124/68 (86) 98 04/02/19 16:00 82 04/02/19 14:00 120/61 04/02/19 14:00 120/61 I&O Intake and Output 04/02/19 04/03/19 19:00 07:00 Intake Total 1435 ml 20 ml Output Total 460 ml 420 ml Balance 975 ml -400 ml Intake Oral 120 ml 20 ml IV Total 1315 ml Output Urine Total 460 ml 420 ml # Voids 4 # Bowel Movements 5 1 Dressing: saturated Wound: clean Cardiovascular: RSR Abdomen: non-tender, present bowel sounds Extremities: no cyanosis, other Laboratory Tests Test 04/03/19 06:35 White Blood Count 6.1 K/UL (4.8-10.8) Red Blood Count 2.61 M/UL (4.70-6.10) L Hemoglobin 7.4 G/DL (14.2-18.0) L Hematocrit 23.6 % (42.0-52.0) L Mean Corpuscular Volume 90 FL (80-99) Mean Corpuscular Hemoglobin 28.3 PG (27.0-31.0) Mean Corpuscular Hemoglobin Concent 31.3 G/DL (32.0-36.0) L Red Cell Distribution Width 17.9 % (11.6-14.8) H Platelet Count 73 K/UL (150-450) L Mean Platelet Volume 9.2 FL (6.5-10.1) Neutrophils (%) (Auto) % (45.0-75.0) Lymphocytes (%) (Auto) % (20.0-45.0) Monocytes (%) (Auto) % (1.0-10.0) Eosinophils (%) (Auto) % (0.0-3.0) Basophils (%) (Auto) % (0.0-2.0) Differential Total Cells Counted 100 Neutrophils % (Manual) 68 % (45-75) Lymphocytes % (Manual) 12 % (20-45) L Monocytes % (Manual) 19 % (1-10) H Eosinophils % (Manual) 1 % (0-3) Basophils % (Manual) 0 % (0-2) Band Neutrophils 0 % (0-8) Platelet Estimate Decreased L Platelet Morphology Normal Hypochromasia 1+ Anisocytosis 1+ Sodium Level 150 MMOL/L (136-145) H Potassium Level 3.2 MMOL/L (3.5-5.1) L Chloride Level 118 MMOL/L (98-107) H Carbon Dioxide Level 16 MMOL/L (21-32) L Anion Gap 16 mmol/L (5-15) H Blood Urea Nitrogen 67 mg/dL (7-18) H Creatinine 3.0 MG/DL (0.55-1.30) H Estimat Glomerular Filtration Rate mL/min (>60) Glucose Level 168 MG/DL (74-106) H Uric Acid 16.1 MG/DL (2.6-7.2) H Calcium Level 6.9 MG/DL (8.5-10.1) L Phosphorus Level 4.3 MG/DL (2.5-4.9) Magnesium Level 2.3 MG/DL (1.8-2.4) Total Bilirubin 0.3 MG/DL (0.2-1.0) Aspartate Amino Transf (AST/SGOT) 30 U/L (15-37) Alanine Aminotransferase (ALT/SGPT) 13 U/L (12-78) Alkaline Phosphatase 41 U/L (46-116) L C-Reactive Protein, Quantitative 28.5 mg/dL (0.00-0.90) H Pro-B-Type Natriuretic Peptide 599 pg/mL (0-125) H Total Protein 5.7 G/DL (6.4-8.2) L Albumin 1.3 G/DL (3.4-5.0) L Globulin 4.4 g/dL Albumin/Globulin Ratio 0.3 (1.0-2.7) L Cortisol AM Sample Pending Random Vancomycin Level 8.0 ug/mL Plan Problems: (1) Scrotal lesion Assessment & Plan: This is a 83-year-old male with multiple medical morbidities who was identified to have abnormal scrotal lesions on admission. There are 3 lesions on the scrotum clearly identified and likely old small abscesses or carbuncles which have healed slowly. Patient is incontinent With leakage of stool identified around the scrotal sac on the posterior aspect where the lesions are located. No signs of active infection no active drainage nontender skin macerated Recommend washing the scrotum daily with normal saline. Apply skin protectant and moisture absorbent dressing daily and as needed saturation We will follow and monitor for healing (2) Sacral decubitus ulcer, stage III Assessment & Plan: Pt presented on admission with multiple pressure injuries. Full thickness sacral pressure injury. Base of wound is viable with an area that is purple in center. Semi-detached black borders(L)9.5cm x (W)4.9cm x(D) 0.2cm .Non-blanching erythema periwound. Multiple pressure injuries Scrotum. Base of pressure injury R scrotum 75% pink granulation,25% slough. Edges pink,flat and adherent to base of wound.(L)2.2cm x (W)0.9cm.Ful thickness pressure injury center -base of scrotum (L)0.5cm x (W) 0.4cm. Base of wound has 100% slough. Full thickness pressure injury L scrotum ( L)2cm x (W01.1cm. Base of wound has 90% slough ,10% viable. Reabsorbing blood blister R heel heel. Base of wound black (L)2.2cm x (W)2cm with red tinged borders with fluctuance. (L)5.5cm x(W)5cm. Reabsorbing Blood Blister L heel. Base of wound is black ,dry with maroon and fluctuant borders.(L)6.5cm x (W)6cm Abd folds are moist and dark but is intact. Tx.Plan: Cleanse Sacral wound with Saline. Apply Therahoney. Apply Moisture Barrier Paste periwound. Cover with Optifoam drsg Daily and prn. Cleanse wounds on Scrotum with saline. Apply Therhaoney to each wound. Cover with Optifoam drsg. Change Daily and prn. Apply Moisture Barrier to Abd folds and Bilat groin Daily and prn. APM/NOLBERTO Mattress overlay. Reposition at least every 2hours or as tolerated. Off-load heels with pillow. (3) Bladder cancer Bebeto Pepe Apr 03, 2019 12:18
--- NOTE | 2019-04-03 14:32 | General Progress Note ---
Assessment/Plan Problem List: (1) Invasive carcinoma of urinary bladder ICD Codes: C67.9 - Malignant neoplasm of bladder, unspecified SNOMED: 987574056 (2) Anemia ICD Codes: D64.9 - Anemia, unspecified SNOMED: 677690947 (3) Diabetes ICD Codes: E11.9 - Type 2 diabetes mellitus without complications SNOMED: 13813414 (4) HTN (hypertension) ICD Codes: I10 - Essential (primary) hypertension SNOMED: 19233816 (5) Urinary tract infection ICD Codes: N39.0 - Urinary tract infection, site not specified SNOMED: 68807058 (6) Bladder cancer ICD Codes: C67.9 - Malignant neoplasm of bladder, unspecified SNOMED: 861969328 Status: unchanged Assessment/Plan: pt diet eval 02 pulm tx abx uro f/u cbc bmp am Subjective Constitutional: Reports: weakness Allergies: Coded Allergies: No Known Allergies (Unverified , 12/20/18) All Systems: reviewed and negative except above Subjective sleepy calm Objective Last 24 Hour Vital Signs Date Time Temp Pulse Resp B/P (MAP) Pulse Ox O2 Delivery O2 Flow Rate FiO2 04/03/19 13:22 151/60 04/03/19 12:00 98.4 75 20 151/60 (90) 95 04/03/19 12:00 73 04/03/19 09:00 Room Air 04/03/19 08:46 70 151/58 04/03/19 08:00 72 04/03/19 08:00 97.8 72 20 151/58 (89) 96 04/03/19 06:00 111/46 04/03/19 04:00 97.8 77 18 126/53 (77) 96 04/03/19 04:00 77 04/03/19 00:15 98.1 72 20 122/62 (82) 99 04/03/19 00:00 72 04/02/19 21:16 85 16 96 Room Air 21 04/02/19 21:00 74 114/75 04/02/19 21:00 Room Air 04/02/19 20:00 81 04/02/19 20:00 97.8 81 20 119/55 (76) 95 04/02/19 16:00 98.7 70 18 124/68 (86) 98 04/02/19 16:00 82 Intake and Output 04/02/19 04/03/19 19:00 07:00 Intake Total 1435 ml 20 ml Output Total 460 ml 420 ml Balance 975 ml -400 ml Intake Oral 120 ml 20 ml IV Total 1315 ml Output Urine Total 460 ml 420 ml # Voids 4 # Bowel Movements 5 1 Laboratory Tests 04/03/19 06:35: White Blood Count 6.1, Red Blood Count 2.61L, Hemoglobin 7.4L, Hematocrit 23.6L , Mean Corpuscular Volume 90, Mean Corpuscular Hemoglobin 28.3, Mean Corpuscular Hemoglobin Concent 31.3L, Red Cell Distribution Width 17.9H, Platelet Count 73L, Mean Platelet Volume 9.2, Neutrophils (%) (Auto) , Lymphocytes (%) (Auto) , Monocytes (%) (Auto) , Eosinophils (%) (Auto) , Basophils (%) (Auto) , Differential Total Cells Counted 100, Neutrophils % ( Manual) 68, Lymphocytes % (Manual) 12L, Monocytes % (Manual) 19H, Eosinophils % (Manual) 1, Basophils % (Manual) 0, Band Neutrophils 0, Platelet Estimate DecreasedL, Platelet Morphology Normal, Hypochromasia 1+, Anisocytosis 1+, Sodium Level 150H, Potassium Level 3.2L, Chloride Level 118H, Carbon Dioxide Level 16L, Anion Gap 16H, Blood Urea Nitrogen 67H, Creatinine 3.0H, Estimat Glomerular Filtration Rate , Glucose Level 168H, Uric Acid 16.1H, Calcium Level 6.9L, Phosphorus Level 4.3, Magnesium Level 2.3, Total Bilirubin 0.3, Aspartate Amino Transf (AST/SGOT) 30, Alanine Aminotransferase (ALT/SGPT) 13, Alkaline Phosphatase 41L, C-Reactive Protein, Quantitative 28.5H, Pro-B-Type Natriuretic Peptide 599H, Total Protein 5.7L, Albumin 1.3L, Globulin 4.4, Albumin/Globulin Ratio 0.3L, Cortisol AM Sample 18.2, Random Vancomycin Level 8.0 Height (Feet): 5 Height (Inches): 9.00 Weight (Pounds): 244 General Appearance: lethargic EENT: normal ENT inspection Neck: normal alignment Cardiovascular: normal peripheral pulses, normal rate, regular rhythm Respiratory/Chest: chest wall non-tender, lungs clear, normal breath sounds Abdomen: normal bowel sounds, non tender, soft Extremities: normal inspection Edema: no edema noted Arm (L), no edema noted Arm (R), no edema noted Leg (L), no edema noted Leg (R), no edema noted Pedal (L), no edema noted Pedal (R), no edema noted Generalized Neurologic: motor weakness Skin: normal pigmentation, warm/dry Jamie Gray DO Apr 03, 2019 14:32
[2019-04-03 16:00] VITALS: BP 142/58
--- NOTE | 2019-04-03 16:03 | NUR ---
ST NOTE: REFERRED FOR SWALLOW EVAL BY TIN FLIPPER REKHA TILLMAN, SEE REPORT. DYSPHAGIA RISK FACTORS FOR THIS 83 Y.O.M.: ACUTE ISSUES: LOW 02 SATS 80S, WHEEZING, DYSPNEA, RESP DISTRESS, DEHYDRATION, PER CXR DOUBT ACUTE PROCESS BUT MILD INTERSTITIAL CONGESTION AND PATCHY RETROCARDIAC INFILTRATE ARE POSSIBLE, AMS,INCREASED CONFUSION, ACUTE ON CHRONIC RENAL INSUFFICIENCY. H/O ADVANCED AGE, DYSPHAGIA, GERD (ON MEDS) MORBID OBESITY (WAS ON MEGACE AT [facility]), CVA, BLADDER CA (RECENT HOSPITALIZATION FOR SURGERY. ? RADIATION [place]), HTN, DM (ON INSULIN) HYPERCHOLESTEROLEMIA, HYPERLIPIDEMIA,CARDIOMYOPATHY, SEPSIS. 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 HIS SAID SHE BROUGHT IN A HAMBURGER AND OTHER FOODS OF PREFERENCE AND HE ATE SOME OF THAT FOOD. DENTURES NOT HEAR AND HE IS EDENTULOUS. NO POLST/AD REGARDING TUBE FEEDING PREFERENCES. WAS ON SCHUYLER CCHO PUREED AND THIN LIQUIDS AT [facility] PER RD PT OBESE BMI NOW ON RENAL REG TEXTURE DIET AND THIN LIQUIDS WITH POOR INTAKE 0/25(X2) % INITIAL IMPRESSIONS: REVIEWED CHART AND SPOKE TO RN, PATIENT IS NOT AVAILABLE DUE TO PROCEDURE. PER RN, PT IS REFUSING ALL MEALS (OR EATING VERY LITTLE DUE TO NOT LIKING FOOD) AND MEDS. PATIENT ALSO COUGHED ON WATER. CONSIDER PATIENT BE DOWNGRADED TO NECTAR THICK LIQUIDS FOR NOW. PLAN: CONTINUE EVAL TOMORROW FOR PO TRIALS CONSIDER MOD BARIUM SWALLOW STUDY IF PT RECEPTIVE TO BARIUM (MAY REFUSE) ADDENDUM: RE-EVAL COMPLETED TODAY. PER STAFF, PATIENT IS REFUSING ALL PO MEALS. PATIENT REFUSED MASTICATED SOLID, PUREED TSP, AND WATER PO TRIALS WITH MEDICAL RECORD SPECIALIST. TOOK TSP OF NECTAR THICK LIQUIDS APPLE JUICE, SWALLOWED AFTER A 5 SECONDS (MADE SOME CHEWING MOVEMENTS) AND HAD GOOD HYOLARYNGEAL EXCURSION, NO ORAL RESIDUE NOR OVERT ASPIRATION. YESTERDAY, S/S OF ASPIRATION ON THIN LIQUIDS. HAS SILENT ASPIRATION RISK DUE TO CVA HX RECOMMENDATIONS: CONSIDER DOWNGRADING TO LIQUIFIED PUREED LIKE NECTAR THICK SOUP CONSISTENCY FOR NOW AND SEND HIGH CALORIE SUPPLEMENTS (STRAWBERRY FLAVOR PER HIS ). CONSIDER 72 HOUR CALORIE COUNT AND APPETITE STIMULANT (WAS ON MEGACE AT [facility]) TOMORROW WILL TRY TO RE-EVALUATE WITH PUREED AND CHEWABLE SOLIDS. D/W RN (MAGALI) AND METAL CUT OFF SAW TENDER (KAT). Addendum: 04/03/19 at 1612 by NED LEÓN ON RENAL DIET NOW (WAS ON CCHO-MED AND SCHUYLER AT [facility]). NO RD REPORT REGARDING DIET TYPE. WILL WORK WITH RD TOMORROW REGARDING SAFE DIET TEXTURES AND FOODS OF PREFERENCE.
--- NOTE | 2019-04-03 17:24 | Cardiology Report ---
APPROVED REPORT EKG Measurement Heart [id number] IN [id number] Normal sinus rhythm Incomplete left bundle branch block Prolonged QT Abnormal ECG
--- NOTE | 2019-04-03 19:42 | NUR ---
HAND-OFF: Report given to MATT Manuel.
--- NOTE | 2019-04-03 19:43 | NUR ---
NURSE NOTES: NURSE NOTES: Received pt from MATT Handy. Pt is awake and resting in bed in no distress with HOB elevated. Iv site intact and patent, 1/2 NS @ 100ml/hr. Oconnor catheter intact and draining. Fed the patient 1 TbSp of thickened water but refused anymore. Bed locked in lowest position, bed alarm on, call light within reach. will continue with plan of care.
[2019-04-03 20:00] VITALS: BP 112/53
[2019-04-04] VITALS: BP 116/55
[2019-04-04] MEDS: Sodium Citrate 30ml ORAL SCH ×6 (00:27→17:38)
[2019-04-04 04:00] VITALS: BP 131/59
--- NOTE | 2019-04-04 05:44 | Hematology/Onc Progress Note ---
Assessment/Plan Assessment/Plan Assessment and Recs: # ACUTE DEEP VEIN THROMBOSIS BILATERAL, new onset, from 04/02/19 --> reviewed images with radiology, goes from common to proximal common femoral v ein --> V/Q scan --> shows low prob pe --> given low h/h and low plts, recommend ivc filter placement, consent has been signed --> cleared with other consultants, zen RN --> awaiting clearance of blood cultures prior to IVCf placement, dw ID # Bladder cancer requires resection v chemo/xrt -- presented with multi masses CT shows Scattered eccentric mural thickening/masses in the urinary bladder wall , correlating with findings on recent ultrasound. No significant perivesical stranding. Recommend further evaluation with cystoscopy. --> urology consulted, appreciate input --> Uro note from prior admission: Tolerated bladder tumor resection well. Unfortunately greater part of the bladder is involved and essentially replaced all normal bladder with tumor. I can not resect all the tumors. --> may consider chemo/radiation as outpatient --> path does confirm malignancy --> CBI as needed per uro # Thrombocytopenia - potential causes multifactorial, evaluate liver and viral etiologies to begin, also could be related to underlying medications patient has received. --> Hep panel and HIV --> NEGATIVE --> US abd showed bladder masses--> ct reviewed as well --> Peripheral smear ordered to evaluate for blasts /schistocytes --> none noted --> abx and other meds have been reviewed --> ok for ppx if plt >50k w/ either heparin or lovenox --> trend plt >92-->104-->86-->73 # Anemia of iron deficiency likely due to hematuria --> iv iron x 5 days low ferritin, completed from prior admission --> likely due to hematuria --> have started on ivf and consider uro prn cysto --> hgb goal >7 --> cont po folic acid --> hgb trend: 7.4 # Acute renal injury --> cr >1.4-->1.4-->1.7-->1.5-->3.7 --> per renal recs --> volume expansion # HTN --> cards is following, appreciate recs # Hematuria # UTI (urinary tract infection) --> per id on abx, cefe/vanc # Scrotal lesions --> per surg eval # Dehydration # Dvt ppx heparin sqand ivf filter The timing of this note does not necessarily reflect the time of the patient was seen. GREATLY APPRECIATE CONSULTATION. Subjective HEENT: Denies: no symptoms, eye pain, blurred vision, tearing, double vision, ear pain, ear discharge, nose pain, nose congestion, throat pain, throat swelling, mouth pain, mouth swelling, other Cardiovascular: Denies: no symptoms, chest pain, edema, irregular heart rate, lightheadedness, palpitations, syncope, other Gastrointestinal/Abdominal: Denies: no symptoms, abdomen distended, abdominal pain, black stools, tarry stools, blood in stool, constipated, diarrhea, difficulty swallowing, nausea, poor appetite, poor fluid intake, rectal bleeding , vomiting, other Genitourinary: Denies: no symptoms, burning, discharge, frequency, flank pain, hematuria, incontinence, pain, urgency, other Neurologic/Psychiatric: Denies: no symptoms, anxiety, depressed, emotional problems, headache, numbness, paresthesia, pre-existing deficit, seizure, tingling, tremors, weakness, other Endocrine: Denies: no symptoms, excessive sweating, flushing, intolerance to cold, intolerance to heat, increased hunger, increased thirst, increased urine, unexplained weight gain, unexplained weight loss, other Allergies: Coded Allergies: No Known Allergies (Unverified , 12/20/18) Subjective 04/03: s/p 1 bag iv iron, hgb 7.4, repeat cbc tomorrow, consent for ivc filter has been signed 04/04: is pending clearance of blood cultures, have dw id, potentially thurs for ivcf placement Objective Objective Current Medications Medications (Trade) Dose Ordered Sig/Sallie Route PRN Reason Start Time Stop Time Status Last Admin Dose Admin Acetaminophen (Tylenol) 650 mg Q4H PRN ORAL fever 04/01/19 08:00 05/01/19 07:59 Albuterol/ Ipratropium (Albuterol/ Ipratropium) 3 ml Q4HRT PRN HHN Shortness of Breath 04/01/19 08:00 04/06/19 07:59 Allopurinol (Allopurinol) 300 mg DAILY ORAL 04/03/19 10:00 05/03/19 09:59 04/03/19 11:00 Carvedilol (Coreg) 12.5 mg EVERY 12 HOURS ORAL 04/02/19 21:00 05/01/19 08:59 04/03/19 08:46 Cefepime HCl 1 gm/ Dextrose 55 ml @ 110 mls/hr Q24H IVPB 04/01/19 12:00 04/08/19 11:59 04/03/19 11:43 Dextrose (Dextrose 50%) 25 ml Q30M PRN IV Hypoglycemia 04/01/19 10:30 05/01/19 10:29 Dextrose (Dextrose 50%) 50 ml Q30M PRN IV Hypoglycemia 04/01/19 10:30 05/01/19 10:29 Docusate Sodium (Colace) 100 mg THREE TIMES A DAY ORAL 04/01/19 13:00 05/01/19 12:59 04/03/19 17:25 Heparin Sodium (Porcine) (Heparin 5000 units/ml) 5,000 units EVERY 12 HOURS SUBQ 04/01/19 09:00 05/01/19 08:59 Hydralazine HCl (Apresoline) 50 mg Q8HR ORAL 04/01/19 14:00 05/01/19 13:59 04/03/19 13:22 Insulin Aspart (NovoLOG) BEFORE MEALS AND HS SUBQ 04/01/19 11:30 05/01/19 11:29 04/03/19 21:45 Lidocaine HCl (Xylocaine 1% 30ml) 30 ml NOW PRN INJ Radiology Procedure 04/02/19 17:15 04/05/19 17:06 Minoxidil (Loniten) 2.5 mg Q4H PRN ORAL bp over 165 syst 04/01/19 12:15 05/01/19 12:14 Morphine Sulfate (Morphine Sulfate) 2 mg Q4H PRN IVP Moderate Pain (Pain Scale 4-6) 04/01/19 08:00 04/08/19 07:59 Ondansetron HCl (Zofran) 4 mg Q6H PRN IVP Nausea & Vomiting 04/01/19 08:00 05/01/19 07:59 Pantoprazole (Protonix) 40 mg EVERY 12 HOURS ORAL 04/01/19 21:00 05/01/19 20:59 04/03/19 08:43 Polyethylene Glycol (Miralax) 17 gm DAILYPRN PRN ORAL Constipation 04/01/19 08:00 05/01/19 07:59 Potassium Chloride (K-Dur) 40 meq DAILY ORAL 04/01/19 13:00 05/01/19 12:59 04/03/19 08:43 Quetiapine Fumarate (SEROqueL) 50 mg TWICE A DAY ORAL 04/03/19 18:00 05/03/19 17:59 04/03/19 17:26 Sodium Chloride 1,000 ml @ 100 mls/hr Q10H IV 04/01/19 12:45 05/01/19 12:44 04/04/19 01:43 Sodium Citrate (Bicitra) 30 ml EVERY 6 HOURS ORAL 04/03/19 12:00 05/03/19 11:59 04/03/19 17:26 Tamsulosin HCl (Flomax) 0.4 mg BID ORAL 04/01/19 13:00 05/01/19 12:59 04/03/19 17:25 Temazepam (Restoril) 15 mg HSPRN PRN ORAL Insomnia 04/01/19 08:00 04/08/19 07:59 Vancomycin HCl (Vanco rx to dose) 1 ea DAILY PRN MISC Per rx protocol 04/01/19 08:15 05/01/19 08:14 Last 24 Hour Vital Signs Date Time Temp Pulse Resp B/P (MAP) Pulse Ox O2 Delivery O2 Flow Rate FiO2 04/04/19 04:00 98.7 69 18 131/59 (83) 97 04/04/19 04:00 69 04/04/19 00:00 68 04/04/19 00:00 99.3 68 18 116/55 (75) 97 04/03/19 22:05 112/68 04/03/19 21:00 Room Air 04/03/19 21:00 79 109/43 04/03/19 20:58 87 16 97 Room Air 21 04/03/19 20:00 99.7 72 20 112/53 (72) 96 04/03/19 20:00 72 04/03/19 16:00 98.8 72 20 142/58 (86) 95 04/03/19 16:00 72 04/03/19 13:22 151/60 04/03/19 12:00 98.4 75 20 151/60 (90) 95 04/03/19 12:00 73 04/03/19 09:00 Room Air 04/03/19 08:46 70 151/58 04/03/19 08:00 72 04/03/19 08:00 97.8 72 20 151/58 (89) 96 04/03/19 06:00 111/46 04/03/19 04:00 97.8 77 18 126/53 (77) 96 04/03/19 04:00 77 04/03/19 00:15 98.1 72 20 122/62 (82) 99 04/03/19 00:00 72 04/02/19 21:16 85 16 96 Room Air 21 04/02/19 21:00 74 114/75 04/02/19 21:00 Room Air 04/02/19 20:00 81 04/02/19 20:00 97.8 81 20 119/55 (76) 95 04/02/19 16:00 98.7 70 18 124/68 (86) 98 04/02/19 16:00 82 04/02/19 14:00 120/61 04/02/19 14:00 120/61 04/02/19 12:00 97.0 81 20 120/61 (80) 100 04/02/19 12:00 72 04/02/19 11:14 97.0 04/02/19 09:00 Room Air 04/02/19 08:40 74 108/57 04/02/19 08:39 74 108/57 04/02/19 08:00 97.6 74 19 108/57 (74) 99 04/02/19 08:00 79 04/02/19 07:58 76 20 97 Room Air 21 04/02/19 06:11 122/68 04/02/19 06:00 122/68 Intake and Output 04/03/19 04/04/19 19:00 07:00 Intake Total 880 ml Output Total 600 ml Balance 280 ml Intake Oral 880 ml Output Urine Total 600 ml # Voids 2 # Bowel Movements 3 Labs Test 04/01/19 08:14 04/01/19 19:36 04/02/19 07:03 04/03/19 06:35 Urine Color Yellow Urine Appearance Cloudy Urine pH 6 (4.5-8.0) Urine Specific [place] 1.015 (1.005-1.035) Urine Protein 3+ (NEGATIVE) Urine Glucose (UA) 2+ (NEGATIVE) Urine Ketones 1+ (NEGATIVE) Urine Blood 5+ (NEGATIVE) Urine Nitrite Negative (NEGATIVE) Urine Bilirubin Negative (NEGATIVE) Urine Urobilinogen Normal MG/DL (0.0-1.0) Urine Leukocyte Esterase 3+ (NEGATIVE) Urine RBC 30-40 /HPF (0 - 0) Urine WBC 60-80 /HPF (0 - 0) Urine Squamous Epithelial Cells Few /LPF (NONE/OCC) Urine Bacteria Moderate /HPF (NONE) Stool Occult Blood Positive (NEGATIVE) White Blood Count 6.8 K/UL (4.8-10.8) 6.1 K/UL (4.8-10.8) Red Blood Count 2.91 M/UL (4.70-6.10) 2.61 M/UL (4.70-6.10) Hemoglobin 8.2 G/DL (14.2-18.0) 7.4 G/DL (14.2-18.0) Hematocrit 26.2 % (42.0-52.0) 23.6 % (42.0-52.0) Mean Corpuscular Volume 90 FL (80-99) 90 FL (80-99) Mean Corpuscular Hemoglobin 28.3 PG (27.0-31.0) 28.3 PG (27.0-31.0) Mean Corpuscular Hemoglobin Concent 31.4 G/DL (32.0-36.0) 31.3 G/DL (32.0-36.0) Red Cell Distribution Width 18.4 % (11.6-14.8) 17.9 % (11.6-14.8) Platelet Count 88 K/UL (150-450) 73 K/UL (150-450) Mean Platelet Volume 8.7 FL (6.5-10.1) 9.2 FL (6.5-10.1) Neutrophils (%) (Auto) % (45.0-75.0) % (45.0-75.0) Lymphocytes (%) (Auto) % (20.0-45.0) % (20.0-45.0) Monocytes (%) (Auto) % (1.0-10.0) % (1.0-10.0) Eosinophils (%) (Auto) % (0.0-3.0) % (0.0-3.0) Basophils (%) (Auto) % (0.0-2.0) % (0.0-2.0) Differential Total Cells Counted 100 100 Neutrophils % (Manual) 76 % (45-75) 68 % (45-75) Lymphocytes % (Manual) 15 % (20-45) 12 % (20-45) Monocytes % (Manual) 4 % (1-10) 19 % (1-10) Eosinophils % (Manual) 0 % (0-3) 1 % (0-3) Basophils % (Manual) 0 % (0-2) 0 % (0-2) Band Neutrophils 5 % (0-8) 0 % (0-8) Platelet Estimate Decreased Decreased Platelet Morphology Normal Normal Hypochromasia 1+ 1+ Anisocytosis 1+ 1+ Sodium Level 152 MMOL/L (136-145) 150 MMOL/L (136-145) Potassium Level 2.7 MMOL/L (3.5-5.1) 3.2 MMOL/L (3.5-5.1) Chloride Level 118 MMOL/L (98-107) 118 MMOL/L (98-107) Carbon Dioxide Level 19 MMOL/L (21-32) 16 MMOL/L (21-32) Anion Gap 15 mmol/L (5-15) 16 mmol/L (5-15) Blood Urea Nitrogen 74 mg/dL (7-18) 67 mg/dL (7-18) Creatinine 3.7 MG/DL (0.55-1.30) 3.0 MG/DL (0.55-1.30) Estimat Glomerular Filtration Rate mL/min (>60) mL/min (>60) Glucose Level 229 MG/DL (74-106) 168 MG/DL (74-106) Hemoglobin A1c 6.7 % (4.3-6.0) Calcium Level 7.2 MG/DL (8.5-10.1) 6.9 MG/DL (8.5-10.1) Iron Level 13 ug/dL (50-175) Total Iron Binding Capacity 82 ug/dL (250-450) Percent Iron Saturation 16 % (15-50) Unsaturated Iron Binding 69 ug/dL (112-346) Ferritin 208 NG/ML (8-388) Total Bilirubin 0.3 MG/DL (0.2-1.0) 0.3 MG/DL (0.2-1.0) Aspartate Amino Transf (AST/SGOT) 34 U/L (15-37) 30 U/L (15-37) Alanine Aminotransferase (ALT/SGPT) 10 U/L (12-78) 13 U/L (12-78) Alkaline Phosphatase 52 U/L (46-116) 41 U/L (46-116) Total Protein 6.5 G/DL (6.4-8.2) 5.7 G/DL (6.4-8.2) Albumin 1.5 G/DL (3.4-5.0) 1.3 G/DL (3.4-5.0) Globulin 5.0 g/dL 4.4 g/dL Albumin/Globulin Ratio 0.3 (1.0-2.7) 0.3 (1.0-2.7) Vitamin B12 Level 534 PG/ML (193-986) Folate 8.9 NG/ML (8.6-58.9) Uric Acid 16.1 MG/DL (2.6-7.2) Phosphorus Level 4.3 MG/DL (2.5-4.9) Magnesium Level 2.3 MG/DL (1.8-2.4) C-Reactive Protein, Quantitative 28.5 mg/dL (0.00-0.90) Pro-B-Type Natriuretic Peptide 599 pg/mL (0-125) Cortisol AM Sample 18.2 UG/DL Random Vancomycin Level 8.0 ug/mL Height (Feet): 5 Height (Inches): 9.00 Weight (Pounds): 244 Objective Physical Exam Vital Signs: have been reviewed General Appearance: non-toxic, obese, Chronically Ill Respiratory: chest non-tender, lungs clear, mirian BSs, no rhonchi Cardiovascular: normal inspection, regular rate, rhythm, GI: normal inspection, soft Genitourinary: MANZANO+ Musculoskeletal: normal inspection Neurologic: normal inspection, alert Psychiatric: normal inspection Skin: other - Marcelo Shen MD Apr 04, 2019 05:44
[2019-04-04] MEDS: HydrALAZINE 50mg tab ORAL SCH ×3 (06:00→22:00)
[2019-04-04] MEDS: NovoLOG Insulin Flexpen SUBQ SCH ×4 (06:40→21:29)
[2019-04-04 07:25] LABS: HEMATOCRIT 24.1 % (42.0-52.0); HEMOGLOBIN 7.5 G/DL (14.2-18.0); MEAN CORPUSCULAR VOLUME 91 FL (80-99); PLATELET COUNT 81 K/UL (150-450); RED BLOOD COUNT 2.64 M/UL (4.70-6.10); RED CELL DISTRIBUTION WIDTH 19.4 % (11.6-14.8); WHITE BLOOD COUNT 4.9 K/UL (4.8-10.8)
--- NOTE | 2019-04-04 07:30 | NUR ---
HAND-OFF: Report given to MATT Astorga. Endorsed plan of care.
--- NOTE | 2019-04-04 07:30 | NUR ---
NURSE NOTES: Received report from MATT Manuel. The patient is resting on the bed without acute distress or shortness of breath but being combative. The patient's bed in the lowest position, call light in reach, and fall and aspiration precaution reinforced. IV sites intact and patent. Will continue plan of care.
[2019-04-04 07:55] LABS: ALANINE AMINOTRANSFERASE 9 U/L (12-78); ALBUMIN 1.4 G/DL (3.4-5.0); ALBUMIN/GLOBULIN RATIO 0.3 (1.0-2.7); ALKALINE PHOSPHATASE 41 U/L (46-116); ANION GAP 14 mmol/L (5-15); ASPARTATE AMINO TRANSFERASE 21 U/L (15-37); BILIRUBIN,TOTAL 0.2 MG/DL (0.2-1.0); BLOOD UREA NITROGEN 61 mg/dL (7-18); CALCIUM 7.3 MG/DL (8.5-10.1); CARBON DIOXIDE 18 MMOL/L (21-32); CHLORIDE 118 MMOL/L (98-107); CREATININE 2.4 MG/DL (0.55-1.30); POTASSIUM 3.1 MMOL/L (3.5-5.1); SODIUM 150 MMOL/L (136-145)
[2019-04-04 08:00] VITALS: BP 108/41
[2019-04-04 08:03] LABS: PHOSPHORUS 3.7 MG/DL (2.5-4.9)
--- NOTE | 2019-04-04 08:13 | Infectious Diseases Prog Note ---
Assessment/Plan Assessment/Plan 83yo gentleman with PMH below presents from long-term with confusion, wheezing and desaturation between 83-90%. Pt is oriented to self. Does not know where he is or why he is in the hospital. He initially says yes to abdominal pain, suprapubic pain, leg pain, arm pain but then denied it on second question. Denies fever, chills, cough, sob, diarrhea, dysuria. Unclear baseline. Pt recently had blood transfusion at [facility] 03/06. Pt was recently diagnosed with bladder cancer 12/2018 Afebrile On RA No leukocytosis No lactic acidosis Hypoxia at long-term, SP Possible PNA? flu swab negative CXR: Mild diffuse airspace opacities in both lungs. Lungs are underinflated.Lung findings are likely due to underinflation rather than pulmonary edema or atelectasis. Possible UTI? UA WBC TNTC, also moderate epithelial cells UCx: 50-60K amp sensitive E faecalis E faecalis bacteremia likely 2/ UTI 04/01 BCx: E faecalis 04/02 BCx: ngtd C diff + 04/04 Acute DVT pending IVC filter RIGHT LEG: Venous imaging reveals acute thrombus in the common to superficial femoral veins. LEFT LEG: Venous imaging reveals acute thrombus in the common to superficial femoral veins. Hypokalemia MRSA screen negative ANGELA on CKD CAD Bladder cancer HTN DM CVA Dyslipidemia CKD Anemia BPH Plan: continue cefepime and vancomycin #4 f/u repeat bcx f/u MRSA screen TTE aspiration precaution, elevate HOB monitor temp and CBC given E faeclis bacteremia, while we understand the urgency of the IVC filter, would wait for echocardiogram and repeat bcx Thank you for this consult. [facility] will continue to follow the patient with you. Subjective Allergies: Coded Allergies: No Known Allergies (Unverified , 12/20/18) Subjective Afebrile. RA. No leukocytosis Diarrhea No SOB or abdominal pain Objective Vital Signs Last 24 Hour Vital Signs Date Time Temp Pulse Resp B/P (MAP) Pulse Ox O2 Delivery O2 Flow Rate FiO2 04/04/19 08:05 78 20 96 Room Air 21 04/04/19 06:00 106/42 04/04/19 04:00 98.7 69 18 131/59 (83) 97 04/04/19 04:00 69 04/04/19 00:00 68 04/04/19 00:00 99.3 68 18 116/55 (75) 97 04/03/19 22:05 112/68 04/03/19 21:00 Room Air 04/03/19 21:00 79 109/43 04/03/19 20:58 87 16 97 Room Air 21 04/03/19 20:00 99.7 72 20 112/53 (72) 96 04/03/19 20:00 72 04/03/19 16:00 98.8 72 20 142/58 (86) 95 04/03/19 16:00 72 04/03/19 13:22 151/60 04/03/19 12:00 98.4 75 20 151/60 (90) 95 04/03/19 12:00 73 04/03/19 09:00 Room Air 04/03/19 08:46 70 151/58 Height (Feet): 5 Height (Inches): 9.00 Weight (Pounds): 174 Objective Gen: NAD HEENT: anicteric sclera CV: RRR Resp: RRR Abd: normoactive Bs+. Soft. No TTP Back: no flank pain Neuro: AAOx1 Microbiology Date/Time Source Procedure Growth Status 04/02/19 16:15 Blood Blood Culture - Preliminary NO GROWTH AFTER 24 HOURS Resulted 04/02/19 16:05 Blood Blood Culture - Preliminary NO GROWTH AFTER 24 HOURS Resulted 04/01/19 08:14 Urine,Clean Catch Urine Culture - Preliminary Resulted Laboratory Tests Test 04/04/19 06:40 White Blood Count 4.9 K/UL (4.8-10.8) Red Blood Count 2.64 M/UL (4.70-6.10) L Hemoglobin 7.5 G/DL (14.2-18.0) L Hematocrit 24.1 % (42.0-52.0) L Mean Corpuscular Volume 91 FL (80-99) Mean Corpuscular Hemoglobin 28.4 PG (27.0-31.0) Mean Corpuscular Hemoglobin Concent 31.1 G/DL (32.0-36.0) L Red Cell Distribution Width 19.4 % (11.6-14.8) H Platelet Count 81 K/UL (150-450) L Mean Platelet Volume 8.7 FL (6.5-10.1) Neutrophils (%) (Auto) % (45.0-75.0) Lymphocytes (%) (Auto) % (20.0-45.0) Monocytes (%) (Auto) % (1.0-10.0) Eosinophils (%) (Auto) % (0.0-3.0) Basophils (%) (Auto) % (0.0-2.0) Neutrophils % (Manual) Pending Lymphocytes % (Manual) Pending Platelet Estimate Pending Platelet Morphology Pending Sodium Level 150 MMOL/L (136-145) H Potassium Level 3.1 MMOL/L (3.5-5.1) L Chloride Level 118 MMOL/L (98-107) H Carbon Dioxide Level 18 MMOL/L (21-32) L Anion Gap 14 mmol/L (5-15) Blood Urea Nitrogen 61 mg/dL (7-18) H Creatinine 2.4 MG/DL (0.55-1.30) H Estimat Glomerular Filtration Rate mL/min (>60) Glucose Level 155 MG/DL (74-106) H Calcium Level 7.3 MG/DL (8.5-10.1) L Phosphorus Level 3.7 MG/DL (2.5-4.9) Magnesium Level 2.1 MG/DL (1.8-2.4) Total Bilirubin 0.2 MG/DL (0.2-1.0) Aspartate Amino Transf (AST/SGOT) 21 U/L (15-37) Alanine Aminotransferase (ALT/SGPT) 9 U/L (12-78) L Alkaline Phosphatase 41 U/L (46-116) L Total Protein 5.7 G/DL (6.4-8.2) L Albumin 1.4 G/DL (3.4-5.0) L Globulin 4.3 g/dL Albumin/Globulin Ratio 0.3 (1.0-2.7) L Random Vancomycin Level 15.3 ug/mL Current Medications Medications (Trade) Dose Ordered Sig/Sallie Route PRN Reason Start Time Stop Time Status Last Admin Dose Admin Acetaminophen (Tylenol) 650 mg Q4H PRN ORAL fever 04/01/19 08:00 05/01/19 07:59 Albuterol/ Ipratropium (Albuterol/ Ipratropium) 3 ml Q4HRT PRN HHN Shortness of Breath 04/01/19 08:00 04/06/19 07:59 Allopurinol (Allopurinol) 300 mg DAILY ORAL 04/03/19 10:00 05/03/19 09:59 04/03/19 11:00 Carvedilol (Coreg) 12.5 mg EVERY 12 HOURS ORAL 04/02/19 21:00 05/01/19 08:59 04/03/19 08:46 Cefepime HCl 1 gm/ Dextrose 55 ml @ 110 mls/hr Q24H IVPB 04/01/19 12:00 04/08/19 11:59 04/03/19 11:43 Dextrose (Dextrose 50%) 25 ml Q30M PRN IV Hypoglycemia 04/01/19 10:30 05/01/19 10:29 Dextrose (Dextrose 50%) 50 ml Q30M PRN IV Hypoglycemia 04/01/19 10:30 05/01/19 10:29 Docusate Sodium (Colace) 100 mg THREE TIMES A DAY ORAL 04/01/19 13:00 05/01/19 12:59 04/03/19 17:25 Heparin Sodium (Porcine) (Heparin 5000 units/ml) 5,000 units EVERY 12 HOURS SUBQ 04/01/19 09:00 05/01/19 08:59 Hydralazine HCl (Apresoline) 50 mg Q8HR ORAL 04/01/19 14:00 05/01/19 13:59 04/03/19 13:22 Insulin Aspart (NovoLOG) BEFORE MEALS AND HS SUBQ 04/01/19 11:30 05/01/19 11:29 04/04/19 06:40 Lidocaine HCl (Xylocaine 1% 30ml) 30 ml NOW PRN INJ Radiology Procedure 04/02/19 17:15 04/05/19 17:06 Minoxidil (Loniten) 2.5 mg Q4H PRN ORAL bp over 165 syst 04/01/19 12:15 05/01/19 12:14 Morphine Sulfate (Morphine Sulfate) 2 mg Q4H PRN IVP Moderate Pain (Pain Scale 4-6) 04/01/19 08:00 04/08/19 07:59 Ondansetron HCl (Zofran) 4 mg Q6H PRN IVP Nausea & Vomiting 04/01/19 08:00 05/01/19 07:59 Pantoprazole (Protonix) 40 mg EVERY 12 HOURS ORAL 04/01/19 21:00 05/01/19 20:59 04/03/19 08:43 Polyethylene Glycol (Miralax) 17 gm DAILYPRN PRN ORAL Constipation 04/01/19 08:00 05/01/19 07:59 Potassium Chloride (K-Dur) 40 meq DAILY ORAL 04/01/19 13:00 05/01/19 12:59 04/03/19 08:43 Quetiapine Fumarate (SEROqueL) 50 mg TWICE A DAY ORAL 04/03/19 18:00 05/03/19 17:59 04/03/19 17:26 Sodium Chloride 1,000 ml @ 100 mls/hr Q10H IV 04/01/19 12:45 05/01/19 12:44 04/04/19 01:43 Sodium Citrate (Bicitra) 30 ml EVERY 6 HOURS ORAL 04/03/19 12:00 05/03/19 11:59 04/03/19 17:26 Tamsulosin HCl (Flomax) 0.4 mg BID ORAL 04/01/19 13:00 05/01/19 12:59 04/03/19 17:25 Temazepam (Restoril) 15 mg HSPRN PRN ORAL Insomnia 04/01/19 08:00 04/08/19 07:59 Vancomycin HCl (Vanco rx to dose) 1 ea DAILY PRN MISC Per rx protocol 04/01/19 08:15 05/01/19 08:14 Ashley Wasserman MD Apr 04, 2019 08:13
--- NOTE | 2019-04-04 08:30 | NUR ---
NURSE NOTES: Contacted Dr. Mcallister regarding abnormal lab including hemoglobin and platelet. Per Dr. Mcallister, 1PRBC ordered. Will carry out the order as soon as possible. Will continue plan of care.
--- NOTE | 2019-04-04 08:40 | NUR ---
NURSE NOTES: Notified Dr. Burgess regarding IVC filter that is scheduled for today. Per Dr. Wasserman, cannot clear the patient in ID standpoint as the patient has true bacteremia. Notified Dr. Mcallister regarding Dr. Wasserman's opinion. Per Dr. Mcallister, the procedure can be wait until 04/05. Informed the patient and family member will continue plan of care.
[2019-04-04] MEDS: Heparin 5000 units/ml inj SUBQ SCH ×2 (09:00→21:00)
[2019-04-04] MEDS: Carvedilol 12.5mg tab ORAL SCH ×2 (09:00→21:03)
[2019-04-04] MEDS: Docusate 100mg cap ORAL SCH ×3 (09:00→17:38)
--- NOTE | 2019-04-04 09:00 | NUR ---
NURSE NOTES: Dr. Sofia was notified regarding abnormal lab of CBC and CMP. Dr. Sofia ordered electrolyte replacement. Will administer as ordered. Will continue plan of care.
--- NOTE | 2019-04-04 09:30 | NUR ---
NURSE NOTES: Notified Dr. Wasserman regarding abnormal result of positive on VRE on rectum, positive C. diff, and history of positive blood culture with current one pending. Dr. Wasserman will order other testings and medication. The patient is stable without acute distress or shortness of breath. Will continue plan of care.
[2019-04-04] MEDS: Tamsulosin 0.4mg cap ORAL SCH ×2 (09:38→17:39)
[2019-04-04] MEDS: D5W w/KCl 20mEq 1,000 ML IV SCH ×2 (09:39→23:20)
--- NOTE | 2019-04-04 10:55 | NUR ---
PT NOTE Patient positive for BLE DVT, IVC filter placement pending. PT treatment deferred, discussed with Gauri GUTIERREZ, will follow.
[2019-04-04] MEDS ORDERED: Vancomycin 1gm/D5W 275ml IVPB ONE ×2 (11:30)
--- NOTE | 2019-04-04 11:33 | Pulmonology Progress Note ---
Assessment/Plan Problems: (1) Acute respiratory failure with hypoxemia (2) Acute deep vein thrombosis (DVT) of both femoral veins (3) Thrombocytopenia (4) Invasive carcinoma of urinary bladder (5) CAD (coronary artery disease) (6) Anemia (7) Diabetes (8) HTN (hypertension) Assessment/Plan V/q scan showed low probability PE venous studies of legs showed acute DVT bilaterally respiratory treatment check electrolytes titrate fiio2 to sat of 92% dvt prophylaxis. renal function improving \ needs IVC filter Subjective ROS Limited/Unobtainable: Yes Interval Events: awake, comfortable Allergies: Coded Allergies: No Known Allergies (Unverified , 12/20/18) Objective Last 24 Hour Vital Signs Date Time Temp Pulse Resp B/P (MAP) Pulse Ox O2 Delivery O2 Flow Rate FiO2 04/04/19 09:00 78 108/41 04/04/19 08:05 78 20 96 Room Air 21 04/04/19 08:00 98.2 73 18 108/41 (63) 95 04/04/19 06:00 106/42 04/04/19 04:00 98.7 69 18 131/59 (83) 97 04/04/19 04:00 69 04/04/19 00:00 68 04/04/19 00:00 99.3 68 18 116/55 (75) 97 04/03/19 22:05 112/68 04/03/19 21:00 Room Air 04/03/19 21:00 79 109/43 04/03/19 20:58 87 16 97 Room Air 21 04/03/19 20:00 99.7 72 20 112/53 (72) 96 04/03/19 20:00 72 04/03/19 16:00 98.8 72 20 142/58 (86) 95 04/03/19 16:00 72 04/03/19 13:22 151/60 04/03/19 12:00 98.4 75 20 151/60 (90) 95 04/03/19 12:00 73 Intake and Output 04/03/19 04/04/19 19:00 07:00 Intake Total 880 ml Output Total 600 ml Balance 280 ml Intake Oral 880 ml Output Urine Total 600 ml # Voids 2 # Bowel Movements 3 General Appearance: WD/WN HEENT: normocephalic, atraumatic Respiratory/Chest: chest wall non-tender, lungs clear Cardiovascular: normal peripheral pulses, normal rate Abdomen: normal bowel sounds, soft, non tender Genitourinary: normal external genitalia Extremities: no clubbing Skin: no rash 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, abnormal gait Lymphatic: no neck adenopathy Microbiology Date/Time Source Procedure Growth Status 04/02/19 16:15 Blood Blood Culture - Preliminary NO GROWTH AFTER 24 HOURS Resulted 04/02/19 16:05 Blood Blood Culture - Preliminary NO GROWTH AFTER 24 HOURS Resulted 04/04/19 01:00 Stool Clostridium difficile Toxin Assay - Final Complete Laboratory Tests 04/04/19 06:40: White Blood Count 4.9, Red Blood Count 2.64L, Hemoglobin 7.5L, Hematocrit 24.1L , Mean Corpuscular Volume 91, Mean Corpuscular Hemoglobin 28.4, Mean Corpuscular Hemoglobin Concent 31.1L, Red Cell Distribution Width 19.4H, Platelet Count 81L, Mean Platelet Volume 8.7, Neutrophils (%) (Auto) , Lymphocytes (%) (Auto) , Monocytes (%) (Auto) , Eosinophils (%) (Auto) , Basophils (%) (Auto) , Differential Total Cells Counted 100, Neutrophils % ( Manual) 77H, Lymphocytes % (Manual) 17L, Monocytes % (Manual) 5, Eosinophils % ( Manual) 1, Basophils % (Manual) 0, Band Neutrophils 0, Platelet Estimate DecreasedL, Platelet Morphology Normal, Sodium Level 150H, Potassium Level 3.1L , Chloride Level 118H, Carbon Dioxide Level 18L, Anion Gap 14, Blood Urea Nitrogen 61H, Creatinine 2.4H, Estimat Glomerular Filtration Rate , Glucose Level 155H, Calcium Level 7.3L, Phosphorus Level 3.7, Magnesium Level 2.1, Total Bilirubin 0.2, Aspartate Amino Transf (AST/SGOT) 21, Alanine Aminotransferase (ALT/SGPT) 9L, Alkaline Phosphatase 41L, Total Protein 5.7L, Albumin 1.4L, Globulin 4.3, Albumin/Globulin Ratio 0.3L, Random Vancomycin Level 15.3 Current Medications Medications (Trade) Dose Ordered Sig/Sallie Route PRN Reason Start Time Stop Time Status Last Admin Dose Admin Acetaminophen (Tylenol) 650 mg Q4H PRN ORAL fever 04/01/19 08:00 05/01/19 07:59 Albuterol/ Ipratropium (Albuterol/ Ipratropium) 3 ml Q4HRT PRN HHN Shortness of Breath 04/01/19 08:00 04/06/19 07:59 Allopurinol (Allopurinol) 300 mg DAILY ORAL 04/03/19 10:00 05/03/19 09:59 04/04/19 09:37 Carvedilol (Coreg) 12.5 mg EVERY 12 HOURS ORAL 04/02/19 21:00 05/01/19 08:59 04/03/19 08:46 Cefepime HCl 1 gm/ Dextrose 55 ml @ 110 mls/hr Q24H IVPB 04/01/19 12:00 04/08/19 11:59 04/03/19 11:43 Dextrose (Dextrose 50%) 25 ml Q30M PRN IV Hypoglycemia 04/01/19 10:30 05/01/19 10:29 Dextrose (Dextrose 50%) 50 ml Q30M PRN IV Hypoglycemia 04/01/19 10:30 05/01/19 10:29 Dextrose/ Electrolytes 1,000 ml @ 75 mls/hr [id number] IV 04/04/19 10:00 05/04/19 09:59 04/04/19 09:39 Docusate Sodium (Colace) 100 mg THREE TIMES A DAY ORAL 04/01/19 13:00 05/01/19 12:59 04/03/19 17:25 Heparin Sodium (Porcine) (Heparin 5000 units/ml) 5,000 units EVERY 12 HOURS SUBQ 04/01/19 09:00 05/01/19 08:59 Hydralazine HCl (Apresoline) 50 mg Q8HR ORAL 04/01/19 14:00 05/01/19 13:59 04/03/19 13:22 Insulin Aspart (NovoLOG) BEFORE MEALS AND HS SUBQ 04/01/19 11:30 05/01/19 11:29 04/04/19 06:40 Lidocaine HCl (Xylocaine 1% 30ml) 30 ml NOW PRN INJ Radiology Procedure 04/02/19 17:15 04/05/19 17:06 Minoxidil (Loniten) 2.5 mg Q4H PRN ORAL bp over 165 syst 04/01/19 12:15 05/01/19 12:14 Morphine Sulfate (Morphine Sulfate) 2 mg Q4H PRN IVP Moderate Pain (Pain Scale 4-6) 04/01/19 08:00 04/08/19 07:59 Ondansetron HCl (Zofran) 4 mg Q6H PRN IVP Nausea & Vomiting 04/01/19 08:00 05/01/19 07:59 Pantoprazole (Protonix) 40 mg EVERY 12 HOURS ORAL 04/01/19 21:00 05/01/19 20:59 04/04/19 09:39 Polyethylene Glycol (Miralax) 17 gm DAILYPRN PRN ORAL Constipation 04/01/19 08:00 05/01/19 07:59 Potassium Chloride (K-Dur) 40 meq BID ORAL 04/04/19 09:00 05/01/19 12:59 04/04/19 09:38 Quetiapine Fumarate (SEROqueL) 50 mg TWICE A DAY ORAL 04/03/19 18:00 05/03/19 17:59 04/04/19 09:39 Sodium Citrate (Bicitra) 30 ml EVERY 6 HOURS ORAL 04/03/19 12:00 05/03/19 11:59 04/03/19 17:26 Tamsulosin HCl (Flomax) 0.4 mg BID ORAL 04/01/19 13:00 05/01/19 12:59 04/04/19 09:38 Temazepam (Restoril) 15 mg HSPRN PRN ORAL Insomnia 04/01/19 08:00 04/08/19 07:59 Vancomycin HCl (Firvanq) 125 mg FOUR TIMES A DAY ORAL 04/04/19 13:00 04/11/19 12:59 Vancomycin HCl (Vanco rx to dose) 1 ea DAILY PRN MISC Per rx protocol 04/01/19 08:15 05/01/19 08:14 Vancomycin HCl 1 gm/Dextrose 275 ml @ 183.708 mls/hr ONCE ONCE IVPB 04/04/19 11:30 04/04/19 12:59 04/04/19 11:14 Adam Moyer MD Apr 04, 2019 11:33
--- NOTE | 2019-04-04 11:56 | Nephrology Progress Note ---
Assessment/Plan Problem List: (1) ARF (acute renal failure) (2) Acute on chronic renal insufficiency (3) Diabetes (4) HTN (hypertension) (5) Bladder cancer (6) Invasive carcinoma of urinary bladder (7) Anemia Assessment Acute renal failure ? Superimposed CKD Bladder Mass / h/o Hematuria HTN DM Anemia, previous transfusions s/p Cystoscopy 12/28 Plan favor transfusion Hydrate richardson IV Iron K Supplement BP management, BP med adjustment Monitor lytes and renal parameters Kidney ESDRAS , no hydro per orders Previous Uro note: Tolerated bladder tumor resection well. Unfortunately greater part of the bladder is involved and essentially replaced all normal bladder with tumor. I can not resect all the tumors. Patient needs a radical cystectomy (removal of bladder) or radiation/chemotherapy at higher level of care. 1. recommend transfer to higher level of care for cystectomy 2. continue richardson, keep irrigation to maintain light pink urine. Multiple mass like lesions within the bladder. Further evaluation with cystoscopy is recommended to evaluate for possible neoplasm. Multiple parapelvic renal cysts Subjective ROS Limited/Unobtainable: No Constitutional: Reports: malaise Objective Objective Last 24 Hour Vital Signs Date Time Temp Pulse Resp B/P (MAP) Pulse Ox O2 Delivery O2 Flow Rate FiO2 04/04/19 09:00 78 108/41 04/04/19 08:05 78 20 96 Room Air 21 04/04/19 08:00 98.2 73 18 108/41 (63) 95 04/04/19 06:00 106/42 04/04/19 04:00 98.7 69 18 131/59 (83) 97 04/04/19 04:00 69 04/04/19 00:00 68 04/04/19 00:00 99.3 68 18 116/55 (75) 97 04/03/19 22:05 112/68 04/03/19 21:00 Room Air 04/03/19 21:00 79 109/43 04/03/19 20:58 87 16 97 Room Air 21 04/03/19 20:00 99.7 72 20 112/53 (72) 96 04/03/19 20:00 72 04/03/19 16:00 98.8 72 20 142/58 (86) 95 04/03/19 16:00 72 04/03/19 13:22 151/60 04/03/19 12:00 98.4 75 20 151/60 (90) 95 04/03/19 12:00 73 Intake and Output 04/03/19 04/04/19 19:00 07:00 Intake Total 880 ml Output Total 600 ml Balance 280 ml Intake Oral 880 ml Output Urine Total 600 ml # Voids 2 # Bowel Movements 3 Laboratory Tests 04/04/19 06:40: White Blood Count 4.9, Red Blood Count 2.64L, Hemoglobin 7.5L, Hematocrit 24.1L , Mean Corpuscular Volume 91, Mean Corpuscular Hemoglobin 28.4, Mean Corpuscular Hemoglobin Concent 31.1L, Red Cell Distribution Width 19.4H, Platelet Count 81L, Mean Platelet Volume 8.7, Neutrophils (%) (Auto) , Lymphocytes (%) (Auto) , Monocytes (%) (Auto) , Eosinophils (%) (Auto) , Basophils (%) (Auto) , Differential Total Cells Counted 100, Neutrophils % ( Manual) 77H, Lymphocytes % (Manual) 17L, Monocytes % (Manual) 5, Eosinophils % ( Manual) 1, Basophils % (Manual) 0, Band Neutrophils 0, Platelet Estimate DecreasedL, Platelet Morphology Normal, Sodium Level 150H, Potassium Level 3.1L , Chloride Level 118H, Carbon Dioxide Level 18L, Anion Gap 14, Blood Urea Nitrogen 61H, Creatinine 2.4H, Estimat Glomerular Filtration Rate , Glucose Level 155H, Calcium Level 7.3L, Phosphorus Level 3.7, Magnesium Level 2.1, Total Bilirubin 0.2, Aspartate Amino Transf (AST/SGOT) 21, Alanine Aminotransferase (ALT/SGPT) 9L, Alkaline Phosphatase 41L, Total Protein 5.7L, Albumin 1.4L, Globulin 4.3, Albumin/Globulin Ratio 0.3L, Random Vancomycin Level 15.3 Height (Feet): 5 Height (Inches): 9.00 Weight (Pounds): 174 Cardiovascular: normal rate Respiratory/Chest: decreased breath sounds Abdomen: soft Russell Sofia MD Apr 04, 2019 11:56
[2019-04-04 12:00] VITALS: BP 124/44
--- NOTE | 2019-04-04 12:00 | NUR ---
NURSE NOTES: The patient is stable without acute distress or shortness of breath. Will continue plan of care.
[2019-04-04] MEDS: Cefepime 1gm in D5W 55ml IVPB SCH (12:12)
[2019-04-04] MEDS: Vancomycin oral 125mg/2.5ml ORAL SCH ×5 (12:12→21:03)
--- NOTE | 2019-04-04 13:26 | GI Initial Consult Note ---
History of Present Illness General Date patient seen: Apr 04, 2019 Time patient seen: 13:21 Reason for Hospitalization: Dyspnea/Respdistress Referring physician: Dr Gray Reason for Consultation: CDIFF Present Illness HPI This is an 83-year-old male sent in by nursing facility after increased confusion and desaturation. Patient had prior history of bladder cancer. He was noted to have diminished oxygen saturation as well as increased confusion. He had been brought in by EMS. Patient was noted to be less responsive than usual. Patient's O2 sat has been noted to be intermittently in the 80s. Patient was sent in for further evaluation. He had recent hospitalization and had prior bladder surgery. GI consulted for reported C. difficile. ROS limited, patient confused and unable to provide any history at this time. Patient is awake alert no apparent distress with no active signs or symptoms of any nausea vomiting. Laboratory reviewed; hemoglobin 7.5, hematocrit 24, sodium 150, fecal occult blood stool positive. No history of endoscopic colonoscopy at this time. Home Meds Active Scripts Hydralazine HCl (Hydralazine HCl) 50 Mg Tablet, 100 MG ORAL Q8HR for 30 Days, TAB Prov:Adam Moyer MD 01/02/19 Reported Medications Tamsulosin HCl (Flomax) 0.4 Mg Cap.er.24h, 0.4 MG ORAL DAILY, CAP 04/01/19 Bethanechol Chl* (URECHOLINE*) 25 Mg Tablet, 25 MG ORAL THREE TIMES A DAY, TAB 04/01/19 Ondansetron (Zofran) 4 Mg Tablet, 4 MG ORAL Q6H PRN for Nausea & Vomiting, TAB 04/01/19 Insulin Detemir (LEVEMIR) 100 Unit/1 Ml Vial, 18 SUBQ BEDTIME, VIAL 04/01/19 Amlodipine Besylate (Norvasc) 10 Mg Tablet, 10 MG ORAL DAILY, TAB 04/01/19 Atorvastatin Calcium* (LIPITOR*) 80 Mg Tablet, 80 MG ORAL BEDTIME, TAB 04/01/19 Hydrochlorothiazide* (HYDROCHLOROTHIAZIDE*) 12.5 Mg Capsule, 12.5 MG ORAL DAILY , CAP 04/01/19 Carvedilol (Coreg) 12.5 Mg Tablet, 12.5 MG ORAL EVERY 12 HOURS, TAB 12/20/18 Hydralazine Hcl* (HYDRALAZINE HCL*) 50 Mg Tablet, 50 MG ORAL BID, TAB 12/20/18 Clonidine Hcl* (CATAPRES*) 0.2 Mg Tablet, 0.2 MG ORAL Q8HR, TAB 12/20/18 Isosorbide Dinitrate* (ISORDIL*) 10 Mg Tablet, 20 MG ORAL DAILY, #20 TAB 0 Refills 12/20/18 Magnesium Hydroxide* (MILK OF MAGNESIA*) 400 Mg/5 Ml Oral.susp, 30 ML ORAL EVERY 6 HOURS PRN for stomach upset, ML 12/20/18 Furosemide* (LASIX*) 40 Mg Tablet, 40 MG ORAL TWICE A DAY, TAB 0 Refills 12/20/18 Dutasteride (AVODART) 0.5 Mg Capsule, 0.5 MG ORAL DAILY, CAP 12/20/18 Vitamin B Complex (VITAMIN B COMPLEX) 1 Each Capsule, 1 CAP ORAL DAILY, CAP 0 Refills 12/20/18 Discontinued Reported Medications Losartan Potassium* (LOSARTAN POTASSIUM*) 50 Mg Tablet, 100 MG ORAL DAILY, TAB 12/20/18 Amlodipine Besylate* (AMLODIPINE BESYLATE*) 10 Mg Tablet, 10 MG ORAL DAILY, TAB 12/20/18 Atorvastatin Calcium* (ATORVASTATIN CALCIUM*) 40 Mg Tablet, 80 MG ORAL BEDTIME, TAB 12/20/18 Acetaminophen* (ACETAMINOPHEN 325MG TABLET*) 325 Mg Tablet, 650 MG ORAL Q4H PRN for For Pain, TAB 12/20/18 Bisacodyl* (DULCOLAX*) 5 Mg Tablet.dr, 5 MG ORAL DAILY, #10 TAB 0 Refills 12/20/18 Discontinued Scripts Minoxidil (Minoxidil) 2.5 Mg Tablet, 2.5 MG ORAL Q4H PRN for 30 Days, TAB Prov:Adam Moyer MD 01/02/19 Tamsulosin HCl (Flomax) 0.4 Mg Cap.er.24h, 0.4 MG ORAL BID for 30 Days, CAP Prov:Adam Moyer MD 01/02/19 Med list reviewed/reconciled: Yes Allergies: Coded Allergies: No Known Allergies (Unverified , 12/20/18) Patient History Limited by: medical condition History Provided By: Medical Record PMH Narrative Past Medical History: see triage record Reviewed Nursing Documentation: PMH: Agreed; PSxH: Agreed Nursing Documentation-PMH Hx Cardiac Problems: Yes - CAD,CHF Hx Hypertension: Yes Hx Diabetes: Yes Hx Cerebrovascular Accident: Yes Social History: Denies: smoking, alcohol use, drug use, other Review of Systems All Other Systems: limited Physical Exam Vital Signs Date Time Temp Pulse Resp B/P (MAP) Pulse Ox O2 Delivery O2 Flow Rate FiO2 04/01/19 04:43 99.1 60 18 100/70 (80) 96 Room Air 04/01/19 10:51 2.0 04/02/19 07:58 21 Sp02 EP Interpretation: reviewed, normal Labs Laboratory Tests Test 04/04/19 06:40 White Blood Count 4.9 K/UL (4.8-10.8) Red Blood Count 2.64 M/UL (4.70-6.10) L Hemoglobin 7.5 G/DL (14.2-18.0) L Hematocrit 24.1 % (42.0-52.0) L Mean Corpuscular Volume 91 FL (80-99) Mean Corpuscular Hemoglobin 28.4 PG (27.0-31.0) Mean Corpuscular Hemoglobin Concent 31.1 G/DL (32.0-36.0) L Red Cell Distribution Width 19.4 % (11.6-14.8) H Platelet Count 81 K/UL (150-450) L Mean Platelet Volume 8.7 FL (6.5-10.1) Neutrophils (%) (Auto) % (45.0-75.0) Lymphocytes (%) (Auto) % (20.0-45.0) Monocytes (%) (Auto) % (1.0-10.0) Eosinophils (%) (Auto) % (0.0-3.0) Basophils (%) (Auto) % (0.0-2.0) Differential Total Cells Counted 100 Neutrophils % (Manual) 77 % (45-75) H Lymphocytes % (Manual) 17 % (20-45) L Monocytes % (Manual) 5 % (1-10) Eosinophils % (Manual) 1 % (0-3) Basophils % (Manual) 0 % (0-2) Band Neutrophils 0 % (0-8) Platelet Estimate Decreased L Platelet Morphology Normal Sodium Level 150 MMOL/L (136-145) H Potassium Level 3.1 MMOL/L (3.5-5.1) L Chloride Level 118 MMOL/L (98-107) H Carbon Dioxide Level 18 MMOL/L (21-32) L Anion Gap 14 mmol/L (5-15) Blood Urea Nitrogen 61 mg/dL (7-18) H Creatinine 2.4 MG/DL (0.55-1.30) H Estimat Glomerular Filtration Rate mL/min (>60) Glucose Level 155 MG/DL (74-106) H Calcium Level 7.3 MG/DL (8.5-10.1) L Phosphorus Level 3.7 MG/DL (2.5-4.9) Magnesium Level 2.1 MG/DL (1.8-2.4) Total Bilirubin 0.2 MG/DL (0.2-1.0) Aspartate Amino Transf (AST/SGOT) 21 U/L (15-37) Alanine Aminotransferase (ALT/SGPT) 9 U/L (12-78) L Alkaline Phosphatase 41 U/L (46-116) L Total Protein 5.7 G/DL (6.4-8.2) L Albumin 1.4 G/DL (3.4-5.0) L Globulin 4.3 g/dL Albumin/Globulin Ratio 0.3 (1.0-2.7) L Random Vancomycin Level 15.3 ug/mL General Appearance: well appearing, no apparent distress, alert Head: normocephalic EENT: PERRL/EOMI, normal ENT inspection Neck: supple Respiratory: normal breath sounds, no respiratory distress Cardiovascular: normal rate Gastrointestinal: normal inspection, non tender, soft, normal bowel sounds, non -distended Rectal: deferred Genitourinary: deferred Musculoskeletal: normal inspection, back normal Neurologic: alert, responsive Skin: normal inspection, normal color, no rash, warm/dry, palpation normal, well hydrated Lymphatic: normal inspection, no adenopathy Current Medications Current Medications Medications (Trade) Dose Ordered Sig/Sallie Route PRN Reason Start Time Stop Time Status Last Admin Dose Admin Acetaminophen (Tylenol) 650 mg Q4H PRN ORAL fever 04/01/19 08:00 05/01/19 07:59 Albuterol/ Ipratropium (Albuterol/ Ipratropium) 3 ml Q4HRT PRN HHN Shortness of Breath 04/01/19 08:00 04/06/19 07:59 Allopurinol (Allopurinol) 300 mg DAILY ORAL 04/03/19 10:00 05/03/19 09:59 04/04/19 09:37 Carvedilol (Coreg) 12.5 mg EVERY 12 HOURS ORAL 04/02/19 21:00 05/01/19 08:59 04/03/19 08:46 Cefepime HCl 1 gm/ Dextrose 55 ml @ 110 mls/hr Q24H IVPB 04/01/19 12:00 04/08/19 11:59 04/04/19 12:12 Dextrose (Dextrose 50%) 25 ml Q30M PRN IV Hypoglycemia 04/01/19 10:30 05/01/19 10:29 Dextrose (Dextrose 50%) 50 ml Q30M PRN IV Hypoglycemia 04/01/19 10:30 05/01/19 10:29 Dextrose/ Electrolytes 1,000 ml @ 75 mls/hr [id number] IV 04/04/19 10:00 05/04/19 09:59 04/04/19 09:39 Docusate Sodium (Colace) 100 mg THREE TIMES A DAY ORAL 04/01/19 13:00 05/01/19 12:59 04/03/19 17:25 Heparin Sodium (Porcine) (Heparin 5000 units/ml) 5,000 units EVERY 12 HOURS SUBQ 04/01/19 09:00 05/01/19 08:59 Hydralazine HCl (Apresoline) 50 mg Q8HR ORAL 04/01/19 14:00 05/01/19 13:59 04/03/19 13:22 Insulin Aspart (NovoLOG) BEFORE MEALS AND HS SUBQ 04/01/19 11:30 05/01/19 11:29 04/04/19 12:11 Lidocaine HCl (Xylocaine 1% 30ml) 30 ml NOW PRN INJ Radiology Procedure 04/02/19 17:15 04/05/19 17:06 Minoxidil (Loniten) 2.5 mg Q4H PRN ORAL bp over 165 syst 04/01/19 12:15 05/01/19 12:14 Morphine Sulfate (Morphine Sulfate) 2 mg Q4H PRN IVP Moderate Pain (Pain Scale 4-6) 04/01/19 08:00 04/08/19 07:59 Ondansetron HCl (Zofran) 4 mg Q6H PRN IVP Nausea & Vomiting 04/01/19 08:00 05/01/19 07:59 Pantoprazole (Protonix) 40 mg EVERY 12 HOURS ORAL 04/01/19 21:00 05/01/19 20:59 04/04/19 09:39 Polyethylene Glycol (Miralax) 17 gm DAILYPRN PRN ORAL Constipation 04/01/19 08:00 05/01/19 07:59 Potassium Chloride (K-Dur) 40 meq BID ORAL 04/04/19 09:00 05/01/19 12:59 04/04/19 09:38 Quetiapine Fumarate (SEROqueL) 50 mg TWICE A DAY ORAL 04/03/19 18:00 05/03/19 17:59 04/04/19 09:39 Sodium Citrate (Bicitra) 30 ml EVERY 6 HOURS ORAL 04/03/19 12:00 05/03/19 11:59 04/03/19 17:26 Tamsulosin HCl (Flomax) 0.4 mg BID ORAL 04/01/19 13:00 05/01/19 12:59 04/04/19 09:38 Temazepam (Restoril) 15 mg HSPRN PRN ORAL Insomnia 04/01/19 08:00 04/08/19 07:59 Vancomycin HCl (Firvanq) 125 mg FOUR TIMES A DAY ORAL 04/04/19 13:00 04/11/19 12:59 Vancomycin HCl (Vanco rx to dose) 1 ea DAILY PRN MISC Per rx protocol 04/01/19 08:15 05/01/19 08:14 GI: Plan Problems: (1) Dehydration (2) Electrolyte imbalance (3) C. difficile colitis (4) Anemia Plan Pending IVC filter placement fecal occult blood stool positive C. difficile positive Recommend EGD and colonoscopy at some point to evaluate possible GI bleed, will hold at this time given active C. difficile colitis. Antibiotics per infectious diseases DC PPI Pepcid twice daily IV and p.o. hydration plus electrolyte correction Diet advanced per ST Monitor H&H, PRN transfusions We will follow with additional recommendations on a daily basis Discussed with Dr. Valiente. Thank you for this patient referral, we will follow. The patient was seen and examined at bedside and all new and available data was reviewed in the patients chart. I agree with the above findings, impression and plan. (Patient seen earlier today. Signature stamp does not reflect patient encounter time.). - MD Marisa [facility]Di[facility] FRINGING MACHINE OPERATOR Apr 04, 2019 13:26
--- NOTE | 2019-04-04 13:42 | NUR ---
ST NOTES: SWALLOW STATUS: PATIENT ALERT BUT STILL REFUSING MEDS AND PO TRIALS OF MASTICATED SOLID, PUREED, AND LIQUIDS. PATIENT SAYS HE WANTS A PARTICULAR FOOD/DRINK AND THEN REJECTS IT. HE IS 3 DAYS NO PO AND WILL HAVE SURGERY TOMORROW. PLAN: CONSIDER TEMPORARY NONORAL FEEDINGS (NGT 12 YORUBA) AND CONTINUE WITH ORAL CARE. MAY NOT WANT TO COOPERATE WITH MOD BARIUM SWALLOW STUDY (MAY DISLIKE BARIUM). CONSIDER GIVING MEGACE APPETITE STIMULANT (WAS GIVEN AT SNF) D/W MATT BRIONES WHO WILL D/O ABOVE WITH PHYSICIANS
--- NOTE | 2019-04-04 14:36 | NUR ---
RD ASSESSMENT & RECOMMENDATIONS SEE CARE ACTIVITY FOR COMPLETE ASSESSMENT DAILY ESTIMATED NEEDS: Needs based on wounds, renal, obese; 84kg adj 20-25 kcals/kg 1680- 2100 total kcals 1.25-1.5 g protein/kg 84- 126 g total protein 25-30 mL/kg 2100- 2520 total fluid mLs NUTRITION DIAGNOSIS: 1) Increased protein needs r/t wounds AEb multiple full thickness wounds, refer to eval. 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 3) Altered nutrition related lab values r/t clinical status as evidenced by elev BG (155 168), Na 150, K 3.1, elev BUN/ creat now trending down, low Hgb (7.5). CURRENT DIET:Renal diet, nectar thick, liq. pureed like soup PO DIET RECOMMENDATIONS: Low Na/ CCHO MED- texture per FORESTRY SUPPORT SPECIALIST ADDITIONAL RECOMMENDATIONS: 1) Re-calibrate bed scale w/ added P200 mattress for accurate CBW 2) Monitor lytes, need for dietary restriction (ARF per MD) 3) Wound care: Ananda BID, MVI x1 daily (nephrovite per MD?) + Vit C/ dosing per Renal MD 4) Currently on Glucerna TID/ monitor lytes, need for Nepro 5) Consider Kcal count w/ fair po intake
--- NOTE | 2019-04-04 14:42 | General Progress Note ---
Assessment/Plan Problem List: (1) Invasive carcinoma of urinary bladder ICD Codes: C67.9 - Malignant neoplasm of bladder, unspecified SNOMED: 068531784 (2) Anemia ICD Codes: D64.9 - Anemia, unspecified SNOMED: 724391489 (3) Diabetes ICD Codes: E11.9 - Type 2 diabetes mellitus without complications SNOMED: 90772229 (4) HTN (hypertension) ICD Codes: I10 - Essential (primary) hypertension SNOMED: 15765538 (5) Urinary tract infection ICD Codes: N39.0 - Urinary tract infection, site not specified SNOMED: 32757961 (6) Bladder cancer ICD Codes: C67.9 - Malignant neoplasm of bladder, unspecified SNOMED: 634741837 Status: unchanged Assessment/Plan: pt diet eval 02 pulm tx abx uro f/u cbc bmp am Subjective Constitutional: Reports: weakness Allergies: Coded Allergies: No Known Allergies (Unverified , 12/20/18) All Systems: reviewed and negative except above Subjective o2nc sleepy calm Objective Last 24 Hour Vital Signs Date Time Temp Pulse Resp B/P (MAP) Pulse Ox O2 Delivery O2 Flow Rate FiO2 04/04/19 14:00 109/50 04/04/19 12:00 98.2 74 18 124/44 (70) 99 04/04/19 12:00 75 04/04/19 09:00 Room Air 04/04/19 09:00 78 108/41 04/04/19 08:05 78 20 96 Room Air 21 04/04/19 08:00 63 04/04/19 08:00 98.2 73 18 108/41 (63) 95 04/04/19 06:00 106/42 04/04/19 04:00 98.7 69 18 131/59 (83) 97 04/04/19 04:00 69 04/04/19 00:00 68 04/04/19 00:00 99.3 68 18 116/55 (75) 97 04/03/19 22:05 112/68 04/03/19 21:00 Room Air 04/03/19 21:00 79 109/43 04/03/19 20:58 87 16 97 Room Air 21 04/03/19 20:00 99.7 72 20 112/53 (72) 96 04/03/19 20:00 72 04/03/19 16:00 98.8 72 20 142/58 (86) 95 04/03/19 16:00 72 Intake and Output 04/03/19 04/04/19 19:00 07:00 Intake Total 880 ml Output Total 600 ml Balance 280 ml Intake Oral 880 ml Output Urine Total 600 ml # Voids 2 # Bowel Movements 3 Laboratory Tests 04/04/19 06:40: White Blood Count 4.9, Red Blood Count 2.64L, Hemoglobin 7.5L, Hematocrit 24.1L , Mean Corpuscular Volume 91, Mean Corpuscular Hemoglobin 28.4, Mean Corpuscular Hemoglobin Concent 31.1L, Red Cell Distribution Width 19.4H, Platelet Count 81L, Mean Platelet Volume 8.7, Neutrophils (%) (Auto) , Lymphocytes (%) (Auto) , Monocytes (%) (Auto) , Eosinophils (%) (Auto) , Basophils (%) (Auto) , Differential Total Cells Counted 100, Neutrophils % ( Manual) 77H, Lymphocytes % (Manual) 17L, Monocytes % (Manual) 5, Eosinophils % ( Manual) 1, Basophils % (Manual) 0, Band Neutrophils 0, Platelet Estimate DecreasedL, Platelet Morphology Normal, Sodium Level 150H, Potassium Level 3.1L , Chloride Level 118H, Carbon Dioxide Level 18L, Anion Gap 14, Blood Urea Nitrogen 61H, Creatinine 2.4H, Estimat Glomerular Filtration Rate , Glucose Level 155H, Calcium Level 7.3L, Phosphorus Level 3.7, Magnesium Level 2.1, Total Bilirubin 0.2, Aspartate Amino Transf (AST/SGOT) 21, Alanine Aminotransferase (ALT/SGPT) 9L, Alkaline Phosphatase 41L, Total Protein 5.7L, Albumin 1.4L, Globulin 4.3, Albumin/Globulin Ratio 0.3L, Random Vancomycin Level 15.3 Height (Feet): 5 Height (Inches): 9.00 Weight (Pounds): 174 General Appearance: lethargic EENT: normal ENT inspection Neck: normal alignment Cardiovascular: normal peripheral pulses, normal rate, regular rhythm Respiratory/Chest: chest wall non-tender, lungs clear, normal breath sounds Abdomen: normal bowel sounds, non tender, soft Extremities: normal inspection Edema: no edema noted Arm (L), no edema noted Arm (R), no edema noted Leg (L), no edema noted Leg (R), no edema noted Pedal (L), no edema noted Pedal (R), no edema noted Generalized Neurologic: motor weakness Skin: normal pigmentation, warm/dry Jamie Gray DO Apr 04, 2019 14:42
[2019-04-04 16:00] VITALS: BP 124/58
--- NOTE | 2019-04-04 16:57 | Surgery Progress Note ---
Surgery Progress Note Subjective Additional Comments blood cultures negative C diff positive - discussed with ID labs noted exam stable wants water but does not drink when given pending IVC filter, consent obtained Objective Last 24 Hour Vital Signs Date Time Temp Pulse Resp B/P (MAP) Pulse Ox O2 Delivery O2 Flow Rate FiO2 04/04/19 16:00 98.2 77 18 124/58 (80) 100 04/04/19 14:00 109/50 04/04/19 12:00 98.2 74 18 124/44 (70) 99 04/04/19 12:00 75 04/04/19 09:00 Room Air 04/04/19 09:00 78 108/41 04/04/19 08:05 78 20 96 Room Air 21 04/04/19 08:00 63 04/04/19 08:00 98.2 73 18 108/41 (63) 95 04/04/19 06:00 106/42 04/04/19 04:00 98.7 69 18 131/59 (83) 97 04/04/19 04:00 69 04/04/19 00:00 68 04/04/19 00:00 99.3 68 18 116/55 (75) 97 04/03/19 22:05 112/68 04/03/19 21:00 Room Air 04/03/19 21:00 79 109/43 04/03/19 20:58 87 16 97 Room Air 21 04/03/19 20:00 99.7 72 20 112/53 (72) 96 04/03/19 20:00 72 I&O Intake and Output 04/03/19 04/04/19 19:00 07:00 Intake Total 880 ml Output Total 600 ml Balance 280 ml Intake Oral 880 ml Output Urine Total 600 ml # Voids 2 # Bowel Movements 3 Dressing: saturated Wound: clean Drains: other Cardiovascular: RSR Respiratory: clear Abdomen: soft, present bowel sounds, non-distended Extremities: no tenderness, no cyanosis Laboratory Tests Test 04/04/19 06:40 White Blood Count 4.9 K/UL (4.8-10.8) Red Blood Count 2.64 M/UL (4.70-6.10) L Hemoglobin 7.5 G/DL (14.2-18.0) L Hematocrit 24.1 % (42.0-52.0) L Mean Corpuscular Volume 91 FL (80-99) Mean Corpuscular Hemoglobin 28.4 PG (27.0-31.0) Mean Corpuscular Hemoglobin Concent 31.1 G/DL (32.0-36.0) L Red Cell Distribution Width 19.4 % (11.6-14.8) H Platelet Count 81 K/UL (150-450) L Mean Platelet Volume 8.7 FL (6.5-10.1) Neutrophils (%) (Auto) % (45.0-75.0) Lymphocytes (%) (Auto) % (20.0-45.0) Monocytes (%) (Auto) % (1.0-10.0) Eosinophils (%) (Auto) % (0.0-3.0) Basophils (%) (Auto) % (0.0-2.0) Differential Total Cells Counted 100 Neutrophils % (Manual) 77 % (45-75) H Lymphocytes % (Manual) 17 % (20-45) L Monocytes % (Manual) 5 % (1-10) Eosinophils % (Manual) 1 % (0-3) Basophils % (Manual) 0 % (0-2) Band Neutrophils 0 % (0-8) Platelet Estimate Decreased L Platelet Morphology Normal Sodium Level 150 MMOL/L (136-145) H Potassium Level 3.1 MMOL/L (3.5-5.1) L Chloride Level 118 MMOL/L (98-107) H Carbon Dioxide Level 18 MMOL/L (21-32) L Anion Gap 14 mmol/L (5-15) Blood Urea Nitrogen 61 mg/dL (7-18) H Creatinine 2.4 MG/DL (0.55-1.30) H Estimat Glomerular Filtration Rate mL/min (>60) Glucose Level 155 MG/DL (74-106) H Calcium Level 7.3 MG/DL (8.5-10.1) L Phosphorus Level 3.7 MG/DL (2.5-4.9) Magnesium Level 2.1 MG/DL (1.8-2.4) Total Bilirubin 0.2 MG/DL (0.2-1.0) Aspartate Amino Transf (AST/SGOT) 21 U/L (15-37) Alanine Aminotransferase (ALT/SGPT) 9 U/L (12-78) L Alkaline Phosphatase 41 U/L (46-116) L Total Protein 5.7 G/DL (6.4-8.2) L Albumin 1.4 G/DL (3.4-5.0) L Globulin 4.3 g/dL Albumin/Globulin Ratio 0.3 (1.0-2.7) L Random Vancomycin Level 15.3 ug/mL Plan Problems: (1) Scrotal lesion Assessment & Plan: This is a 83-year-old male with multiple medical morbidities who was identified to have abnormal scrotal lesions on admission. There are 3 lesions on the scrotum clearly identified and likely old small abscesses or carbuncles which have healed slowly. Patient is incontinent With leakage of stool identified around the scrotal sac on the posterior aspect where the lesions are located. No signs of active infection no active drainage nontender skin macerated Recommend washing the scrotum daily with normal saline. Apply skin protectant and moisture absorbent dressing daily and as needed saturation We will follow and monitor for healing (2) Sacral decubitus ulcer, stage III Assessment & Plan: Pt presented on admission with multiple pressure injuries. Full thickness sacral pressure injury. Base of wound is viable with an area that is purple in center. Semi-detached black borders(L)9.5cm x (W)4.9cm x(D) 0.2cm .Non-blanching erythema periwound. Multiple pressure injuries Scrotum. Base of pressure injury R scrotum 75% pink granulation,25% slough. Edges pink,flat and adherent to base of wound.(L)2.2cm x (W)0.9cm.Ful thickness pressure injury center -base of scrotum (L)0.5cm x (W) 0.4cm. Base of wound has 100% slough. Full thickness pressure injury L scrotum ( L)2cm x (W01.1cm. Base of wound has 90% slough ,10% viable. Reabsorbing blood blister R heel heel. Base of wound black (L)2.2cm x (W)2cm with red tinged borders with fluctuance. (L)5.5cm x(W)5cm. Reabsorbing Blood Blister L heel. Base of wound is black ,dry with maroon and fluctuant borders.(L)6.5cm x (W)6cm Abd folds are moist and dark but is intact. Tx.Plan: Cleanse Sacral wound with Saline. Apply Therahoney. Apply Moisture Barrier Paste periwound. Cover with Optifoam drsg Daily and prn. Cleanse wounds on Scrotum with saline. Apply Therhaoney to each wound. Cover with Optifoam drsg. Change Daily and prn. Apply Moisture Barrier to Abd folds and Bilat groin Daily and prn. APM/NOLBERTO Mattress overlay. Reposition at least every 2hours or as tolerated. Off-load heels with pillow. (3) Bladder cancer (4) C. difficile colitis Assessment & Plan: blood cultures negative C diff positive - discussed with ID cont abx labs noted exam stable wants water but does not drink when given pending IVC filter, consent obtained Bebeto Pepe Apr 04, 2019 16:57
--- NOTE | 2019-04-04 18:30 | NUR ---
NURSE NOTES: 1 PRBC transfusion completed in a safe manner without acute distress or shortness of breath. The patient has stable vital signs and physical condition. Will continue plan of care.
--- NOTE | 2019-04-04 19:30 | NUR ---
HAND-OFF: Report given to MATT Rangel. The patient is resting on the bed without acute distress or shortness of breath. The patient's bed in the lowest position, call light in reach, and fall and aspiration precaution reinforced. IV sites are intact and patent. Oconnor intact and draining well. Informed MATT Rangel regarding communication made with Dr. Mcallister and Dr. Wasserman regarding possible IVC filter tomorrow. Endorsed plan of care.
--- NOTE | 2019-04-04 19:35 | NUR ---
NURSE NOTES: Received report from Romi Delacruz RN. Patient in bed awake with no complaints of acute pain or distress noted. Kept clean, dry, and comfortable in bed. IV line intact and patent with prescribed fluids running. WC orders active and implemented, turned Q2 and PRN;on P200 mattress. Patient kept on bedrest for weakness and is on continuous cardiac monitoring per protocol. Safety precaution in place; siderails X3 up, call light within reach, bed in lowest position, brakes and alarm on at all times. Needs and wants anticipated and attended. Will continue plan of care. Will follow up in the morning with Lux regarding IVC filter placement clearance.
[2019-04-04 20:00] VITALS: BP 146/71
[2019-04-05] VITALS: BP 138/62
[2019-04-05 04:00] VITALS: BP 128/69
--- NOTE | 2019-04-05 04:00 | NUR ---
NURSE NOTES: Patient in bed asleep with no S/S of distress at this time. Will continue plan of care.
[2019-04-05] MEDS: HydrALAZINE 50mg tab ORAL SCH ×4 (06:00→22:47)
[2019-04-05] MEDS: Sodium Citrate 30ml ORAL SCH ×2 (06:00)
[2019-04-05] MEDS: NovoLOG Insulin Flexpen SUBQ SCH ×4 (06:21→21:23)
--- NOTE | 2019-04-05 07:43 | NUR ---
HAND-OFF: Report given to Anika Kirkpatrick RN. Patient in stable condition. Endorsed plan of care.
--- NOTE | 2019-04-05 07:44 | NUR ---
NURSE NOTES: Report received from MATT Rangel. Patient shows no signs of distress, A+Ox1, denies pain/SOB. Respirations are even and unlabored on 2 L NC. IV sites are intact, one saline locked and the other running fluids @ prescribed rate. Bed is at lowest position, brakes engaged, siderails x3, bed alarm on, and call light within reach. Pressure release mattress noted. Pt is in stable condition at this time; will continue to monitor.
[2019-04-05 08:00] VITALS: BP 137/56
[2019-04-05 08:50] LABS: HEMATOCRIT 31.2 % (42.0-52.0); HEMOGLOBIN 9.5 G/DL (14.2-18.0); MEAN CORPUSCULAR VOLUME 90 FL (80-99); PLATELET COUNT 94 K/UL (150-450); RED BLOOD COUNT 3.46 M/UL (4.70-6.10); RED CELL DISTRIBUTION WIDTH 18.4 % (11.6-14.8); WHITE BLOOD COUNT 3.8 K/UL (4.8-10.8)
[2019-04-05 08:55] LABS: ANION GAP 4 mmol/L (5-15); BLOOD UREA NITROGEN 50 mg/dL (7-18); CALCIUM 7.2 MG/DL (8.5-10.1); CARBON DIOXIDE 26 MMOL/L (21-32); CHLORIDE 117 MMOL/L (98-107); POTASSIUM 3.2 MMOL/L (3.5-5.1); SODIUM 147 MMOL/L (136-145)
--- NOTE | 2019-04-05 08:55 | NUR ---
PT NOTE Patient positive for BLE DVT, IVC filter placement pending. PT treatment deferred, discussed with Abby GUTIERREZ, will follow.
[2019-04-05] MEDS: Heparin 5000 units/ml inj SUBQ SCH ×2 (08:56→21:00)
[2019-04-05] MEDS: Vancomycin oral 125mg/2.5ml ORAL SCH ×5 (09:00→21:01)
[2019-04-05] MEDS: Carvedilol 12.5mg tab ORAL SCH ×2 (09:00→21:01)
[2019-04-05] MEDS: Docusate 100mg cap ORAL SCH ×2 (09:00→11:01)
[2019-04-05] MEDS: Tamsulosin 0.4mg cap ORAL SCH ×2 (09:01→17:16)
--- NOTE | 2019-04-05 11:51 | General Progress Note ---
Assessment/Plan Status: unchanged Assessment/Plan: GI: Plan Problems: (1) Dehydration (2) Electrolyte imbalance (3) C. difficile colitis (4) Anemia Plan Pending IVC filter placement fecal occult blood stool positive C. difficile positive Recommend EGD and colonoscopy at some point to evaluate possible GI bleed, will hold at this time given active C. difficile colitis. Antibiotics per infectious diseases DC PPI Pepcid twice daily IV and p.o. hydration plus electrolyte correction Diet advanced per ST Monitor H&H, PRN transfusions po vanco for C.diff dc all laxatives We will follow with additional recommendations on a daily basis Subjective Allergies: Coded Allergies: No Known Allergies (Unverified , 12/20/18) Objective Last 24 Hour Vital Signs Date Time Temp Pulse Resp B/P (MAP) Pulse Ox O2 Delivery O2 Flow Rate FiO2 04/05/19 09:00 Room Air 04/05/19 09:00 77 137/56 04/05/19 08:00 98.2 77 20 137/56 (83) 100 04/05/19 08:00 71 04/05/19 06:00 128/69 04/05/19 04:00 97.5 79 20 128/69 (88) 98 04/05/19 04:00 61 04/05/19 00:00 75 04/05/19 00:00 98.6 85 23 138/62 (87) 100 04/04/19 22:00 135/70 04/04/19 21:13 68 20 97 Room Air 21 04/04/19 21:03 78 146/71 04/04/19 21:00 Room Air 04/04/19 20:00 76 04/04/19 20:00 98.4 78 20 146/71 (96) 100 04/04/19 16:00 98.2 77 18 124/58 (80) 100 04/04/19 16:00 74 04/04/19 14:00 109/50 04/04/19 12:00 98.2 74 18 124/44 (70) 99 04/04/19 12:00 75 Intake and Output 04/04/19 04/05/19 19:00 07:00 Intake Total 150 ml 200 ml Output Total 800 ml 1500 ml Balance -650 ml -1300 ml Intake Oral 150 ml 200 ml Output Urine Total 800 ml 1500 ml # Bowel Movements 2 1 Laboratory Tests 04/05/19 08:10: White Blood Count 3.8L, Red Blood Count 3.46L, Hemoglobin 9.5L, Hematocrit 31.2L , Mean Corpuscular Volume 90, Mean Corpuscular Hemoglobin 27.5, Mean Corpuscular Hemoglobin Concent 30.5L, Red Cell Distribution Width 18.4H, Platelet Count 94L, Mean Platelet Volume 10.6H, Neutrophils (%) (Auto) , Lymphocytes (%) (Auto) , Monocytes (%) (Auto) , Eosinophils (%) (Auto) , Basophils (%) (Auto) , Differential Total Cells Counted 100, Neutrophils % ( Manual) 59, Lymphocytes % (Manual) 22, Monocytes % (Manual) 15H, Eosinophils % ( Manual) 1, Basophils % (Manual) 0, Promyelocytes % 3H, Band Neutrophils 0, Platelet Estimate DecreasedL, Platelet Morphology Normal, Hypochromasia 1+, Anisocytosis 1+, Sodium Level 147H, Potassium Level 3.2L, Chloride Level 117H, Carbon Dioxide Level 26, Anion Gap 4L, Blood Urea Nitrogen 50H, Creatinine 2.0H , Estimat Glomerular Filtration Rate , Glucose Level 196H, Calcium Level 7.2L Height (Feet): 5 Height (Inches): 9.00 Weight (Pounds): 174 General Appearance: no apparent distress EENT: normal ENT inspection Neck: supple Cardiovascular: normal rate Respiratory/Chest: decreased breath sounds Abdomen: normal bowel sounds, non tender, soft Extremities: non-tender Terell Valiente MD Apr 05, 2019 11:51
[2019-04-05 11:54] VITALS: BP 141/78
[2019-04-05] MEDS: D5W w/KCl 20mEq 1,000 ML IV SCH (12:11)
[2019-04-05] MEDS: Cefepime 1gm in D5W 55ml IVPB SCH (12:12)
--- NOTE | 2019-04-05 12:23 | Pulmonology Progress Note ---
Assessment/Plan Problems: (1) Acute respiratory failure with hypoxemia (2) Acute deep vein thrombosis (DVT) of both femoral veins (3) Thrombocytopenia (4) Invasive carcinoma of urinary bladder (5) CAD (coronary artery disease) (6) Anemia (7) Diabetes (8) HTN (hypertension) Assessment/Plan renal function improving V/q scan showed low probability PE venous studies of legs showed acute DVT bilaterally respiratory treatment check electrolytes titrate fiio2 to sat of 92% dvt prophylaxis. renal function improving Subjective ROS Limited/Unobtainable: Yes Constitutional: Reports: no symptoms HEENT: Repors: no symptoms Respiratory: Reports: no symptoms Cardiovascular: Reports: no symptoms Allergies: Coded Allergies: No Known Allergies (Unverified , 12/20/18) Objective Last 24 Hour Vital Signs Date Time Temp Pulse Resp B/P (MAP) Pulse Ox O2 Delivery O2 Flow Rate FiO2 04/05/19 11:54 98.6 76 20 141/78 (99) 100 04/05/19 09:00 Room Air 04/05/19 09:00 77 137/56 04/05/19 08:00 98.2 77 20 137/56 (83) 100 04/05/19 08:00 71 04/05/19 06:00 128/69 04/05/19 04:00 97.5 79 20 128/69 (88) 98 04/05/19 04:00 61 04/05/19 00:00 75 04/05/19 00:00 98.6 85 23 138/62 (87) 100 04/04/19 22:00 135/70 04/04/19 21:13 68 20 97 Room Air 21 04/04/19 21:03 78 146/71 04/04/19 21:00 Room Air 04/04/19 20:00 76 04/04/19 20:00 98.4 78 20 146/71 (96) 100 04/04/19 16:00 98.2 77 18 124/58 (80) 100 04/04/19 16:00 74 04/04/19 14:00 109/50 Intake and Output 04/04/19 04/05/19 19:00 07:00 Intake Total 150 ml 200 ml Output Total 800 ml 1500 ml Balance -650 ml -1300 ml Intake Oral 150 ml 200 ml Output Urine Total 800 ml 1500 ml # Bowel Movements 2 1 General Appearance: WD/WN HEENT: normocephalic, atraumatic Respiratory/Chest: chest wall non-tender, lungs clear Cardiovascular: normal peripheral pulses, normal rate Abdomen: normal bowel sounds, soft, non tender Genitourinary: normal external genitalia Extremities: no cyanosis Skin: no rash 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 Lymphatic: no neck adenopathy Microbiology Date/Time Source Procedure Growth Status 04/02/19 16:15 Blood Blood Culture - Preliminary NO GROWTH AFTER 48 HOURS Resulted 04/02/19 16:05 Blood Blood Culture - Preliminary NO GROWTH AFTER 48 HOURS Resulted 04/04/19 01:00 Stool Clostridium difficile Toxin Assay - Final Complete Laboratory Tests 04/05/19 08:10: White Blood Count 3.8L, Red Blood Count 3.46L, Hemoglobin 9.5L, Hematocrit 31.2L , Mean Corpuscular Volume 90, Mean Corpuscular Hemoglobin 27.5, Mean Corpuscular Hemoglobin Concent 30.5L, Red Cell Distribution Width 18.4H, Platelet Count 94L, Mean Platelet Volume 10.6H, Neutrophils (%) (Auto) , Lymphocytes (%) (Auto) , Monocytes (%) (Auto) , Eosinophils (%) (Auto) , Basophils (%) (Auto) , Differential Total Cells Counted 100, Neutrophils % ( Manual) 59, Lymphocytes % (Manual) 22, Monocytes % (Manual) 15H, Eosinophils % ( Manual) 1, Basophils % (Manual) 0, Promyelocytes % 3H, Band Neutrophils 0, Platelet Estimate DecreasedL, Platelet Morphology Normal, Hypochromasia 1+, Anisocytosis 1+, Sodium Level 147H, Potassium Level 3.2L, Chloride Level 117H, Carbon Dioxide Level 26, Anion Gap 4L, Blood Urea Nitrogen 50H, Creatinine 2.0H , Estimat Glomerular Filtration Rate , Glucose Level 196H, Calcium Level 7.2L Current Medications Medications (Trade) Dose Ordered Sig/Sallie Route PRN Reason Start Time Stop Time Status Last Admin Dose Admin Acetaminophen (Tylenol) 650 mg Q4H PRN ORAL fever 04/01/19 08:00 05/01/19 07:59 Albuterol/ Ipratropium (Albuterol/ Ipratropium) 3 ml Q4HRT PRN HHN Shortness of Breath 04/01/19 08:00 04/06/19 07:59 Allopurinol (Allopurinol) 300 mg DAILY ORAL 04/03/19 10:00 05/03/19 09:59 04/05/19 09:01 Carvedilol (Coreg) 12.5 mg EVERY 12 HOURS ORAL 04/02/19 21:00 05/01/19 08:59 04/05/19 09:00 Cefepime HCl 1 gm/ Dextrose 55 ml @ 110 mls/hr Q24H IVPB 04/01/19 12:00 04/08/19 11:59 04/05/19 12:12 Dextrose (Dextrose 50%) 25 ml Q30M PRN IV Hypoglycemia 04/01/19 10:30 05/01/19 10:29 Dextrose (Dextrose 50%) 50 ml Q30M PRN IV Hypoglycemia 04/01/19 10:30 05/01/19 10:29 Dextrose/ Electrolytes 1,000 ml @ 75 mls/hr [id number] IV 04/04/19 10:00 05/04/19 09:59 04/05/19 12:11 Heparin Sodium (Porcine) (Heparin 5000 units/ml) 5,000 units EVERY 12 HOURS SUBQ 04/01/19 09:00 05/01/19 08:59 Hydralazine HCl (Apresoline) 50 mg Q8HR ORAL 04/01/19 14:00 05/01/19 13:59 04/03/19 13:22 Insulin Aspart (NovoLOG) BEFORE MEALS AND HS SUBQ 04/01/19 11:30 05/01/19 11:29 04/04/19 21:29 Lidocaine HCl (Xylocaine 1% 30ml) 30 ml NOW PRN INJ Radiology Procedure 04/02/19 17:15 04/05/19 17:06 Minoxidil (Loniten) 2.5 mg Q4H PRN ORAL bp over 165 syst 04/01/19 12:15 05/01/19 12:14 Morphine Sulfate (Morphine Sulfate) 2 mg Q4H PRN IVP Moderate Pain (Pain Scale 4-6) 04/01/19 08:00 04/08/19 07:59 Ondansetron HCl (Zofran) 4 mg Q6H PRN IVP Nausea & Vomiting 04/01/19 08:00 05/01/19 07:59 Potassium Chloride (K-Dur) 40 meq TID ORAL 04/05/19 13:00 05/01/19 12:59 Quetiapine Fumarate (SEROqueL) 50 mg TWICE A DAY ORAL 04/03/19 18:00 05/03/19 17:59 04/05/19 09:00 Sodium Citrate (Bicitra) 30 ml BID ORAL 04/05/19 18:00 05/03/19 11:59 Tamsulosin HCl (Flomax) 0.4 mg BID ORAL 04/01/19 13:00 05/01/19 12:59 04/05/19 09:01 Temazepam (Restoril) 15 mg HSPRN PRN ORAL Insomnia 04/01/19 08:00 04/08/19 07:59 Vancomycin HCl (Firvanq) 125 mg FOUR TIMES A DAY ORAL 04/04/19 13:00 04/11/19 12:59 04/05/19 09:00 Vancomycin HCl (Vanco rx to dose) 1 ea DAILY PRN MISC Per rx protocol 04/01/19 08:15 05/01/19 08:14 Adam Moyer MD Apr 05, 2019 12:23
--- NOTE | 2019-04-05 12:30 | Nephrology Progress Note ---
Assessment/Plan Problem List: (1) ARF (acute renal failure) (2) Acute on chronic renal insufficiency (3) Diabetes (4) HTN (hypertension) (5) Bladder cancer (6) Invasive carcinoma of urinary bladder (7) Anemia Assessment Acute renal failure ? Superimposed CKD Bladder Mass / h/o Hematuria HTN DM Anemia, previous transfusions s/p Cystoscopy 12/28 Plan med-surg favor transfusion Hydrate richardson IV Iron K Supplement BP management, BP med adjustment Monitor lytes and renal parameters Kidney ESDRAS , no hydro per orders Previous Uro note: Tolerated bladder tumor resection well. Unfortunately greater part of the bladder is involved and essentially replaced all normal bladder with tumor. I can not resect all the tumors. Patient needs a radical cystectomy (removal of bladder) or radiation/chemotherapy at higher level of care. 1. recommend transfer to higher level of care for cystectomy 2. continue richardson, keep irrigation to maintain light pink urine. Multiple mass like lesions within the bladder. Further evaluation with cystoscopy is recommended to evaluate for possible neoplasm. Multiple parapelvic renal cysts Subjective ROS Limited/Unobtainable: No Constitutional: Reports: malaise, weakness Objective Objective Last 24 Hour Vital Signs Date Time Temp Pulse Resp B/P (MAP) Pulse Ox O2 Delivery O2 Flow Rate FiO2 04/05/19 11:54 98.6 76 20 141/78 (99) 100 04/05/19 09:00 Room Air 04/05/19 09:00 77 137/56 04/05/19 08:00 98.2 77 20 137/56 (83) 100 04/05/19 08:00 71 04/05/19 06:00 128/69 04/05/19 04:00 97.5 79 20 128/69 (88) 98 04/05/19 04:00 61 04/05/19 00:00 75 04/05/19 00:00 98.6 85 23 138/62 (87) 100 04/04/19 22:00 135/70 04/04/19 21:13 68 20 97 Room Air 21 04/04/19 21:03 78 146/71 04/04/19 21:00 Room Air 04/04/19 20:00 76 04/04/19 20:00 98.4 78 20 146/71 (96) 100 04/04/19 16:00 98.2 77 18 124/58 (80) 100 04/04/19 16:00 74 04/04/19 14:00 109/50 Intake and Output 04/04/19 04/05/19 19:00 07:00 Intake Total 150 ml 200 ml Output Total 800 ml 1500 ml Balance -650 ml -1300 ml Intake Oral 150 ml 200 ml Output Urine Total 800 ml 1500 ml # Bowel Movements 2 1 Laboratory Tests 04/05/19 08:10: White Blood Count 3.8L, Red Blood Count 3.46L, Hemoglobin 9.5L, Hematocrit 31.2L , Mean Corpuscular Volume 90, Mean Corpuscular Hemoglobin 27.5, Mean Corpuscular Hemoglobin Concent 30.5L, Red Cell Distribution Width 18.4H, Platelet Count 94L, Mean Platelet Volume 10.6H, Neutrophils (%) (Auto) , Lymphocytes (%) (Auto) , Monocytes (%) (Auto) , Eosinophils (%) (Auto) , Basophils (%) (Auto) , Differential Total Cells Counted 100, Neutrophils % ( Manual) 59, Lymphocytes % (Manual) 22, Monocytes % (Manual) 15H, Eosinophils % ( Manual) 1, Basophils % (Manual) 0, Promyelocytes % 3H, Band Neutrophils 0, Platelet Estimate DecreasedL, Platelet Morphology Normal, Hypochromasia 1+, Anisocytosis 1+, Sodium Level 147H, Potassium Level 3.2L, Chloride Level 117H, Carbon Dioxide Level 26, Anion Gap 4L, Blood Urea Nitrogen 50H, Creatinine 2.0H , Estimat Glomerular Filtration Rate , Glucose Level 196H, Calcium Level 7.2L Height (Feet): 5 Height (Inches): 9.00 Weight (Pounds): 174 General Appearance: no apparent distress Respiratory/Chest: decreased breath sounds Abdomen: distended Genitourinary/Rectal: other - Russell Bryant MD Apr 05, 2019 12:30
--- NOTE | 2019-04-05 12:38 | NUR ---
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 97.5 HR 77 RR 20 B/P 141/78 NA 147 K 3.2 BUN 50 CR 2.0 IS: VANCO GT IVF D5KCL @ 75ML/HR CEFEPIME IV HEPARIN SUBC IVC FILTER PENDING MED/SURG STATUS
--- NOTE | 2019-04-05 13:35 | General Progress Note ---
Assessment/Plan Problem List: (1) Invasive carcinoma of urinary bladder ICD Codes: C67.9 - Malignant neoplasm of bladder, unspecified SNOMED: 092926931 (2) Anemia ICD Codes: D64.9 - Anemia, unspecified SNOMED: 963276437 (3) Diabetes ICD Codes: E11.9 - Type 2 diabetes mellitus without complications SNOMED: 08646844 (4) HTN (hypertension) ICD Codes: I10 - Essential (primary) hypertension SNOMED: 37319677 (5) Urinary tract infection ICD Codes: N39.0 - Urinary tract infection, site not specified SNOMED: 33032343 (6) Bladder cancer ICD Codes: C67.9 - Malignant neoplasm of bladder, unspecified SNOMED: 377609535 Status: unchanged Assessment/Plan: pt diet eval 02 pulm tx abx uro f/u cbc bmp am promise ltach eval Subjective Constitutional: Reports: weakness Allergies: Coded Allergies: No Known Allergies (Unverified , 12/20/18) All Systems: reviewed and negative except above Subjective o2nc sleepy calm Objective Last 24 Hour Vital Signs Date Time Temp Pulse Resp B/P (MAP) Pulse Ox O2 Delivery O2 Flow Rate FiO2 04/05/19 12:00 72 04/05/19 11:54 98.6 76 20 141/78 (99) 100 04/05/19 09:00 Room Air 04/05/19 09:00 77 137/56 04/05/19 08:00 98.2 77 20 137/56 (83) 100 04/05/19 08:00 71 04/05/19 06:00 128/69 04/05/19 04:00 97.5 79 20 128/69 (88) 98 04/05/19 04:00 61 04/05/19 00:00 75 04/05/19 00:00 98.6 85 23 138/62 (87) 100 04/04/19 22:00 135/70 04/04/19 21:13 68 20 97 Room Air 21 04/04/19 21:03 78 146/71 04/04/19 21:00 Room Air 04/04/19 20:00 76 04/04/19 20:00 98.4 78 20 146/71 (96) 100 04/04/19 16:00 98.2 77 18 124/58 (80) 100 04/04/19 16:00 74 04/04/19 14:00 109/50 Intake and Output 04/04/19 04/05/19 19:00 07:00 Intake Total 150 ml 200 ml Output Total 800 ml 1500 ml Balance -650 ml -1300 ml Intake Oral 150 ml 200 ml Output Urine Total 800 ml 1500 ml # Bowel Movements 2 1 Laboratory Tests 04/05/19 08:10: White Blood Count 3.8L, Red Blood Count 3.46L, Hemoglobin 9.5L, Hematocrit 31.2L , Mean Corpuscular Volume 90, Mean Corpuscular Hemoglobin 27.5, Mean Corpuscular Hemoglobin Concent 30.5L, Red Cell Distribution Width 18.4H, Platelet Count 94L, Mean Platelet Volume 10.6H, Neutrophils (%) (Auto) , Lymphocytes (%) (Auto) , Monocytes (%) (Auto) , Eosinophils (%) (Auto) , Basophils (%) (Auto) , Differential Total Cells Counted 100, Neutrophils % ( Manual) 59, Lymphocytes % (Manual) 22, Monocytes % (Manual) 15H, Eosinophils % ( Manual) 1, Basophils % (Manual) 0, Promyelocytes % 3H, Band Neutrophils 0, Platelet Estimate DecreasedL, Platelet Morphology Normal, Hypochromasia 1+, Anisocytosis 1+, Sodium Level 147H, Potassium Level 3.2L, Chloride Level 117H, Carbon Dioxide Level 26, Anion Gap 4L, Blood Urea Nitrogen 50H, Creatinine 2.0H , Estimat Glomerular Filtration Rate , Glucose Level 196H, Calcium Level 7.2L Height (Feet): 5 Height (Inches): 9.00 Weight (Pounds): 174 General Appearance: lethargic EENT: normal ENT inspection Neck: normal alignment Cardiovascular: normal peripheral pulses, normal rate, regular rhythm Respiratory/Chest: chest wall non-tender, lungs clear, normal breath sounds Abdomen: normal bowel sounds, non tender, soft Extremities: normal inspection Edema: no edema noted Arm (L), no edema noted Arm (R), no edema noted Leg (L), no edema noted Leg (R), no edema noted Pedal (L), no edema noted Pedal (R), no edema noted Generalized Neurologic: motor weakness Skin: normal pigmentation, warm/dry Jamie Gray DO Apr 05, 2019 13:35
--- NOTE | 2019-04-05 13:42 | Hematology/Onc Progress Note ---
Assessment/Plan Assessment/Plan Assessment and Recs: # ACUTE DEEP VEIN THROMBOSIS BILATERAL, new onset, from 04/02/19 --> reviewed images with radiology, goes from common to proximal common femoral v ein --> V/Q scan --> shows low prob pe --> given low h/h and low plts, recommend ivc filter placement, consent has been signed --> cleared with other consultants, zen RN --> awaiting clearance of blood cultures prior to IVCf placement, dw ID # Bladder cancer requires resection v chemo/xrt -- presented with multi masses CT shows Scattered eccentric mural thickening/masses in the urinary bladder wall , correlating with findings on recent ultrasound. No significant perivesical stranding. Recommend further evaluation with cystoscopy. --> urology consulted, appreciate input --> Uro note from prior admission: Tolerated bladder tumor resection well. Unfortunately greater part of the bladder is involved and essentially replaced all normal bladder with tumor. I can not resect all the tumors. --> may consider chemo/radiation as outpatient --> path does confirm malignancy --> CBI as needed per uro # Thrombocytopenia - potential causes multifactorial, evaluate liver and viral etiologies to begin, also could be related to underlying medications patient has received. --> Hep panel and HIV --> NEGATIVE --> US abd showed bladder masses--> ct reviewed as well --> Peripheral smear ordered to evaluate for blasts /schistocytes --> none noted --> abx and other meds have been reviewed --> ok for ppx if plt >50k w/ either heparin or lovenox --> trend plt >92-->104-->86-->73 # Anemia of iron deficiency likely due to hematuria --> iv iron x 5 days low ferritin, completed from prior admission --> likely due to hematuria --> have started on ivf and consider uro prn cysto --> hgb goal >7 --> cont po folic acid --> hgb trend: 7.4 # Acute renal injury --> cr >1.4-->1.4-->1.7-->1.5-->3.7 --> per renal recs --> volume expansion # HTN --> cards is following, appreciate recs # C. diff colitis --> on po vanc # Hematuria # UTI (urinary tract infection) --> per id on abx, cefe/vanc # Scrotal lesions --> per surg eval # Dehydration # Dvt ppx heparin sqand ivf filter The timing of this note does not necessarily reflect the time of the patient was seen. GREATLY APPRECIATE CONSULTATION. Subjective Cardiovascular: Denies: no symptoms, chest pain, edema, irregular heart rate, lightheadedness, palpitations, syncope, other Neurologic/Psychiatric: Denies: no symptoms, anxiety, depressed, emotional problems, headache, numbness, paresthesia, pre-existing deficit, seizure, tingling, tremors, weakness, other Endocrine: Denies: no symptoms, excessive sweating, flushing, intolerance to cold, intolerance to heat, increased hunger, increased thirst, increased urine, unexplained weight gain, unexplained weight loss, other Hematologic/Lymphatic: Denies: no symptoms, anemia, easy bleeding, easy bruising, adenopathy, other Allergies: Coded Allergies: No Known Allergies (Unverified , 12/20/18) Subjective 04/03: s/p 1 bag iv iron, hgb 7.4, repeat cbc tomorrow, consent for ivc filter has been signed 04/04: is pending clearance of blood cultures, have dw id, potentially thurs for ivcf placement 04/05: no events, still pending ivc filter, have dw rn and id Objective Objective Current Medications Medications (Trade) Dose Ordered Sig/Sallie Route PRN Reason Start Time Stop Time Status Last Admin Dose Admin Acetaminophen (Tylenol) 650 mg Q4H PRN ORAL fever 04/01/19 08:00 05/01/19 07:59 Albuterol/ Ipratropium (Albuterol/ Ipratropium) 3 ml Q4HRT PRN HHN Shortness of Breath 04/01/19 08:00 04/06/19 07:59 Allopurinol (Allopurinol) 300 mg DAILY ORAL 04/03/19 10:00 05/03/19 09:59 04/05/19 09:01 Carvedilol (Coreg) 12.5 mg EVERY 12 HOURS ORAL 04/02/19 21:00 05/01/19 08:59 04/05/19 09:00 Cefepime HCl 1 gm/ Dextrose 55 ml @ 110 mls/hr Q24H IVPB 04/01/19 12:00 04/08/19 11:59 04/05/19 12:12 Dextrose (Dextrose 50%) 25 ml Q30M PRN IV Hypoglycemia 04/01/19 10:30 05/01/19 10:29 Dextrose (Dextrose 50%) 50 ml Q30M PRN IV Hypoglycemia 04/01/19 10:30 05/01/19 10:29 Dextrose/ Electrolytes 1,000 ml @ 75 mls/hr [id number] IV 04/04/19 10:00 05/04/19 09:59 04/05/19 12:11 Heparin Sodium (Porcine) (Heparin 5000 units/ml) 5,000 units EVERY 12 HOURS SUBQ 04/01/19 09:00 05/01/19 08:59 Hydralazine HCl (Apresoline) 50 mg Q8HR ORAL 04/01/19 14:00 05/01/19 13:59 04/03/19 13:22 Insulin Aspart (NovoLOG) BEFORE MEALS AND HS SUBQ 04/01/19 11:30 05/01/19 11:29 04/04/19 21:29 Lidocaine HCl (Xylocaine 1% 30ml) 30 ml NOW PRN INJ Radiology Procedure 04/02/19 17:15 04/05/19 17:06 Minoxidil (Loniten) 2.5 mg Q4H PRN ORAL bp over 165 syst 04/01/19 12:15 05/01/19 12:14 Morphine Sulfate (Morphine Sulfate) 2 mg Q4H PRN IVP Moderate Pain (Pain Scale 4-6) 04/01/19 08:00 04/08/19 07:59 Ondansetron HCl (Zofran) 4 mg Q6H PRN IVP Nausea & Vomiting 04/01/19 08:00 05/01/19 07:59 Potassium Chloride (K-Dur) 40 meq TID ORAL 04/05/19 13:00 05/01/19 12:59 Quetiapine Fumarate (SEROqueL) 50 mg TWICE A DAY ORAL 04/03/19 18:00 05/03/19 17:59 04/05/19 09:00 Sodium Citrate (Bicitra) 30 ml BID ORAL 04/05/19 18:00 05/03/19 11:59 Tamsulosin HCl (Flomax) 0.4 mg BID ORAL 04/01/19 13:00 05/01/19 12:59 04/05/19 09:01 Temazepam (Restoril) 15 mg HSPRN PRN ORAL Insomnia 04/01/19 08:00 04/08/19 07:59 Vancomycin HCl (Firvanq) 125 mg FOUR TIMES A DAY ORAL 04/04/19 13:00 04/11/19 12:59 04/05/19 09:00 Vancomycin HCl (Vanco rx to dose) 1 ea DAILY PRN MISC Per rx protocol 04/01/19 08:15 05/01/19 08:14 Last 24 Hour Vital Signs Date Time Temp Pulse Resp B/P (MAP) Pulse Ox O2 Delivery O2 Flow Rate FiO2 04/05/19 12:00 72 04/05/19 11:54 98.6 76 20 141/78 (99) 100 04/05/19 09:00 Room Air 04/05/19 09:00 77 137/56 04/05/19 08:00 98.2 77 20 137/56 (83) 100 04/05/19 08:00 71 04/05/19 06:00 128/69 04/05/19 04:00 97.5 79 20 128/69 (88) 98 04/05/19 04:00 61 04/05/19 00:00 75 04/05/19 00:00 98.6 85 23 138/62 (87) 100 04/04/19 22:00 135/70 04/04/19 21:13 68 20 97 Room Air 21 04/04/19 21:03 78 146/71 04/04/19 21:00 Room Air 04/04/19 20:00 76 04/04/19 20:00 98.4 78 20 146/71 (96) 100 04/04/19 16:00 98.2 77 18 124/58 (80) 100 04/04/19 16:00 74 04/04/19 14:00 109/50 04/04/19 12:00 98.2 74 18 124/44 (70) 99 04/04/19 12:00 75 04/04/19 09:00 Room Air 04/04/19 09:00 78 108/41 04/04/19 08:05 78 20 96 Room Air 21 04/04/19 08:00 63 04/04/19 08:00 98.2 73 18 108/41 (63) 95 04/04/19 06:00 106/42 04/04/19 04:00 98.7 69 18 131/59 (83) 97 04/04/19 04:00 69 04/04/19 00:00 68 04/04/19 00:00 99.3 68 18 116/55 (75) 97 04/03/19 22:05 112/68 04/03/19 21:00 Room Air 04/03/19 21:00 79 109/43 04/03/19 20:58 87 16 97 Room Air 21 04/03/19 20:00 99.7 72 20 112/53 (72) 96 04/03/19 20:00 72 04/03/19 16:00 98.8 72 20 142/58 (86) 95 04/03/19 16:00 72 Intake and Output 04/04/19 04/05/19 19:00 07:00 Intake Total 150 ml 200 ml Output Total 800 ml 1500 ml Balance -650 ml -1300 ml Intake Oral 150 ml 200 ml Output Urine Total 800 ml 1500 ml # Bowel Movements 2 1 Labs Test 04/03/19 06:35 04/04/19 06:40 04/05/19 08:10 White Blood Count 6.1 K/UL (4.8-10.8) 4.9 K/UL (4.8-10.8) 3.8 K/UL (4.8-10.8) Red Blood Count 2.61 M/UL (4.70-6.10) 2.64 M/UL (4.70-6.10) 3.46 M/UL (4.70-6.10) Hemoglobin 7.4 G/DL (14.2-18.0) 7.5 G/DL (14.2-18.0) 9.5 G/DL (14.2-18.0) Hematocrit 23.6 % (42.0-52.0) 24.1 % (42.0-52.0) 31.2 % (42.0-52.0) Mean Corpuscular Volume 90 FL (80-99) 91 FL (80-99) 90 FL (80-99) Mean Corpuscular Hemoglobin 28.3 PG (27.0-31.0) 28.4 PG (27.0-31.0) 27.5 PG (27.0-31.0) Mean Corpuscular Hemoglobin Concent 31.3 G/DL (32.0-36.0) 31.1 G/DL (32.0-36.0) 30.5 G/DL (32.0-36.0) Red Cell Distribution Width 17.9 % (11.6-14.8) 19.4 % (11.6-14.8) 18.4 % (11.6-14.8) Platelet Count 73 K/UL (150-450) 81 K/UL (150-450) 94 K/UL (150-450) Mean Platelet Volume 9.2 FL (6.5-10.1) 8.7 FL (6.5-10.1) 10.6 FL (6.5-10.1) Neutrophils (%) (Auto) % (45.0-75.0) % (45.0-75.0) % (45.0-75.0) Lymphocytes (%) (Auto) % (20.0-45.0) % (20.0-45.0) % (20.0-45.0) Monocytes (%) (Auto) % (1.0-10.0) % (1.0-10.0) % (1.0-10.0) Eosinophils (%) (Auto) % (0.0-3.0) % (0.0-3.0) % (0.0-3.0) Basophils (%) (Auto) % (0.0-2.0) % (0.0-2.0) % (0.0-2.0) Differential Total Cells Counted 100 100 100 Neutrophils % (Manual) 68 % (45-75) 77 % (45-75) 59 % (45-75) Lymphocytes % (Manual) 12 % (20-45) 17 % (20-45) 22 % (20-45) Monocytes % (Manual) 19 % (1-10) 5 % (1-10) 15 % (1-10) Eosinophils % (Manual) 1 % (0-3) 1 % (0-3) 1 % (0-3) Basophils % (Manual) 0 % (0-2) 0 % (0-2) 0 % (0-2) Band Neutrophils 0 % (0-8) 0 % (0-8) 0 % (0-8) Platelet Estimate Decreased Decreased Decreased Platelet Morphology Normal Normal Normal Hypochromasia 1+ 1+ Anisocytosis 1+ 1+ Sodium Level 150 MMOL/L (136-145) 150 MMOL/L (136-145) 147 MMOL/L (136-145) Potassium Level 3.2 MMOL/L (3.5-5.1) 3.1 MMOL/L (3.5-5.1) 3.2 MMOL/L (3.5-5.1) Chloride Level 118 MMOL/L (98-107) 118 MMOL/L (98-107) 117 MMOL/L (98-107) Carbon Dioxide Level 16 MMOL/L (21-32) 18 MMOL/L (21-32) 26 MMOL/L (21-32) Anion Gap 16 mmol/L (5-15) 14 mmol/L (5-15) 4 mmol/L (5-15) Blood Urea Nitrogen 67 mg/dL (7-18) 61 mg/dL (7-18) 50 mg/dL (7-18) Creatinine 3.0 MG/DL (0.55-1.30) 2.4 MG/DL (0.55-1.30) 2.0 MG/DL (0.55-1.30) Estimat Glomerular Filtration Rate mL/min (>60) mL/min (>60) mL/min (>60) Glucose Level 168 MG/DL (74-106) 155 MG/DL (74-106) 196 MG/DL (74-106) Uric Acid 16.1 MG/DL (2.6-7.2) Calcium Level 6.9 MG/DL (8.5-10.1) 7.3 MG/DL (8.5-10.1) 7.2 MG/DL (8.5-10.1) Phosphorus Level 4.3 MG/DL (2.5-4.9) 3.7 MG/DL (2.5-4.9) Magnesium Level 2.3 MG/DL (1.8-2.4) 2.1 MG/DL (1.8-2.4) Total Bilirubin 0.3 MG/DL (0.2-1.0) 0.2 MG/DL (0.2-1.0) Aspartate Amino Transf (AST/SGOT) 30 U/L (15-37) 21 U/L (15-37) Alanine Aminotransferase (ALT/SGPT) 13 U/L (12-78) 9 U/L (12-78) Alkaline Phosphatase 41 U/L (46-116) 41 U/L (46-116) C-Reactive Protein, Quantitative 28.5 mg/dL (0.00-0.90) Pro-B-Type Natriuretic Peptide 599 pg/mL (0-125) Total Protein 5.7 G/DL (6.4-8.2) 5.7 G/DL (6.4-8.2) Albumin 1.3 G/DL (3.4-5.0) 1.4 G/DL (3.4-5.0) Globulin 4.4 g/dL 4.3 g/dL Albumin/Globulin Ratio 0.3 (1.0-2.7) 0.3 (1.0-2.7) Cortisol AM Sample 18.2 UG/DL Random Vancomycin Level 8.0 ug/mL 15.3 ug/mL Promyelocytes % 3 % (0-0) Height (Feet): 5 Height (Inches): 9.00 Weight (Pounds): 174 Objective Physical Exam Vital Signs: have been reviewed General Appearance: non-toxic, obese, Chronically Ill Respiratory: chest non-tender, lungs clear, mirian BSs, no rhonchi Cardiovascular: normal inspection, regular rate, rhythm, GI: normal inspection, soft Genitourinary: MANZANO+ Musculoskeletal: normal inspection Neurologic: normal inspection, alert Psychiatric: normal inspection Skin: other - Marcelo Shen MD Apr 05, 2019 13:42
--- NOTE | 2019-04-05 15:37 | Infectious Diseases Prog Note ---
Assessment/Plan Assessment/Plan 83yo gentleman with PMH below presents from [facility] with confusion, wheezing and desaturation between 83-90%. Pt is oriented to self. Does not know where he is or why he is in the hospital. He initially says yes to abdominal pain, suprapubic pain, leg pain, arm pain but then denied it on second question. Denies fever, chills, cough, sob, diarrhea, dysuria. Unclear baseline. Pt recently had blood transfusion at [facility] 03/06. Pt was recently diagnosed with bladder cancer 12/2018 Afebrile On RA No leukocytosis No lactic acidosis Hypoxia at [facility], SP Possible PNA? flu swab negative CXR: Mild diffuse airspace opacities in both lungs. Lungs are underinflated.Lung findings are likely due to underinflation rather than pulmonary edema or atelectasis. Possible UTI? UA WBC TNTC, also moderate epithelial cells UCx: 50-60K amp sensitive E faecalis E faecalis bacteremia likely / UTI 04/01 BCx: E faecalis 04/02 BCx: ngtd TTE without vegetation C diff + 04/04 Acute DVT pending IVC filter RIGHT LEG: Venous imaging reveals acute thrombus in the common to superficial femoral veins. LEFT LEG: Venous imaging reveals acute thrombus in the common to superficial femoral veins. Hypokalemia MRSA screen negative ANGELA on CKD CAD Bladder cancer HTN DM CVA Dyslipidemia CKD Anemia BPH Plan: continue cefepime #5/8 and vancomycin IV #5/14 Vancomycin PO #2/-14 f/u repeat bcx f/u MRSA screen aspiration precaution, elevate HOB monitor temp and CBC if repeat blood culture from 04/02 is negative at 72hrs, no contraindication from ID standpoint for IVC filter Thank you for this consult. [facility] will continue to follow the patient with you. Subjective Allergies: Coded Allergies: No Known Allergies (Unverified , 12/20/18) Subjective Afebrile. RA. Leukopenia Diarrhea No SOB or abdominal pain Objective Vital Signs Last 24 Hour Vital Signs Date Time Temp Pulse Resp B/P (MAP) Pulse Ox O2 Delivery O2 Flow Rate FiO2 04/05/19 12:00 72 04/05/19 11:54 98.6 76 20 141/78 (99) 100 04/05/19 09:00 Room Air 04/05/19 09:00 77 137/56 04/05/19 08:00 98.2 77 20 137/56 (83) 100 04/05/19 08:00 71 04/05/19 06:00 128/69 04/05/19 04:00 97.5 79 20 128/69 (88) 98 04/05/19 04:00 61 04/05/19 00:00 75 04/05/19 00:00 98.6 85 23 138/62 (87) 100 04/04/19 22:00 135/70 04/04/19 21:13 68 20 97 Room Air 21 04/04/19 21:03 78 146/71 04/04/19 21:00 Room Air 04/04/19 20:00 76 04/04/19 20:00 98.4 78 20 146/71 (96) 100 04/04/19 16:00 98.2 77 18 124/58 (80) 100 04/04/19 16:00 74 Height (Feet): 5 Height (Inches): 9.00 Weight (Pounds): 174 Objective Gen: NAD HEENT: anicteric sclera CV: RRR Resp: RRR Abd: normoactive Bs+. Soft. No TTP Back: no flank pain Neuro: AAOx1 Microbiology Date/Time Source Procedure Growth Status 04/02/19 16:15 Blood Blood Culture - Preliminary NO GROWTH AFTER 48 HOURS Resulted 04/02/19 16:05 Blood Blood Culture - Preliminary NO GROWTH AFTER 48 HOURS Resulted 04/04/19 01:00 Stool Clostridium difficile Toxin Assay - Final Complete Laboratory Tests Test 04/05/19 08:10 White Blood Count 3.8 K/UL (4.8-10.8) L Red Blood Count 3.46 M/UL (4.70-6.10) L Hemoglobin 9.5 G/DL (14.2-18.0) L Hematocrit 31.2 % (42.0-52.0) L Mean Corpuscular Volume 90 FL (80-99) Mean Corpuscular Hemoglobin 27.5 PG (27.0-31.0) Mean Corpuscular Hemoglobin Concent 30.5 G/DL (32.0-36.0) L Red Cell Distribution Width 18.4 % (11.6-14.8) H Platelet Count 94 K/UL (150-450) L Mean Platelet Volume 10.6 FL (6.5-10.1) H Neutrophils (%) (Auto) % (45.0-75.0) Lymphocytes (%) (Auto) % (20.0-45.0) Monocytes (%) (Auto) % (1.0-10.0) Eosinophils (%) (Auto) % (0.0-3.0) Basophils (%) (Auto) % (0.0-2.0) Differential Total Cells Counted 100 Neutrophils % (Manual) 59 % (45-75) Lymphocytes % (Manual) 22 % (20-45) Monocytes % (Manual) 15 % (1-10) H Eosinophils % (Manual) 1 % (0-3) Basophils % (Manual) 0 % (0-2) Promyelocytes % 3 % (0-0) H Band Neutrophils 0 % (0-8) Platelet Estimate Decreased L Platelet Morphology Normal Hypochromasia 1+ Anisocytosis 1+ Sodium Level 147 MMOL/L (136-145) H Potassium Level 3.2 MMOL/L (3.5-5.1) L Chloride Level 117 MMOL/L (98-107) H Carbon Dioxide Level 26 MMOL/L (21-32) Anion Gap 4 mmol/L (5-15) L Blood Urea Nitrogen 50 mg/dL (7-18) H Creatinine 2.0 MG/DL (0.55-1.30) H Estimat Glomerular Filtration Rate mL/min (>60) Glucose Level 196 MG/DL (74-106) H Calcium Level 7.2 MG/DL (8.5-10.1) L Current Medications Medications (Trade) Dose Ordered Sig/Sallie Route PRN Reason Start Time Stop Time Status Last Admin Dose Admin Acetaminophen (Tylenol) 650 mg Q4H PRN ORAL fever 04/01/19 08:00 05/01/19 07:59 Albuterol/ Ipratropium (Albuterol/ Ipratropium) 3 ml Q4HRT PRN HHN Shortness of Breath 04/01/19 08:00 04/06/19 07:59 Allopurinol (Allopurinol) 300 mg DAILY ORAL 04/03/19 10:00 05/03/19 09:59 04/05/19 09:01 Carvedilol (Coreg) 12.5 mg EVERY 12 HOURS ORAL 04/02/19 21:00 05/01/19 08:59 04/05/19 09:00 Cefepime HCl 1 gm/ Dextrose 55 ml @ 110 mls/hr Q24H IVPB 04/01/19 12:00 04/08/19 11:59 04/05/19 12:12 Dextrose (Dextrose 50%) 25 ml Q30M PRN IV Hypoglycemia 04/01/19 10:30 05/01/19 10:29 Dextrose (Dextrose 50%) 50 ml Q30M PRN IV Hypoglycemia 04/01/19 10:30 05/01/19 10:29 Dextrose/ Electrolytes 1,000 ml @ 75 mls/hr [id number] IV 04/04/19 10:00 05/04/19 09:59 04/05/19 12:11 Heparin Sodium (Porcine) (Heparin 5000 units/ml) 5,000 units EVERY 12 HOURS SUBQ 04/01/19 09:00 05/01/19 08:59 Hydralazine HCl (Apresoline) 50 mg Q8HR ORAL 04/01/19 14:00 05/01/19 13:59 04/03/19 13:22 Insulin Aspart (NovoLOG) BEFORE MEALS AND HS SUBQ 04/01/19 11:30 05/01/19 11:29 04/04/19 21:29 Lidocaine HCl (Xylocaine 1% 30ml) 30 ml NOW PRN INJ Radiology Procedure 04/02/19 17:15 04/05/19 17:06 Minoxidil (Loniten) 2.5 mg Q4H PRN ORAL bp over 165 syst 04/01/19 12:15 05/01/19 12:14 Morphine Sulfate (Morphine Sulfate) 2 mg Q4H PRN IVP Moderate Pain (Pain Scale 4-6) 04/01/19 08:00 04/08/19 07:59 Ondansetron HCl (Zofran) 4 mg Q6H PRN IVP Nausea & Vomiting 04/01/19 08:00 05/01/19 07:59 Potassium Chloride (K-Dur) 40 meq TID ORAL 04/05/19 13:00 05/01/19 12:59 Quetiapine Fumarate (SEROqueL) 50 mg TWICE A DAY ORAL 04/03/19 18:00 05/03/19 17:59 04/05/19 09:00 Sodium Citrate (Bicitra) 30 ml BID ORAL 04/05/19 18:00 05/03/19 11:59 Tamsulosin HCl (Flomax) 0.4 mg BID ORAL 04/01/19 13:00 05/01/19 12:59 04/05/19 09:01 Temazepam (Restoril) 15 mg HSPRN PRN ORAL Insomnia 04/01/19 08:00 04/08/19 07:59 Vancomycin HCl (Firvanq) 125 mg FOUR TIMES A DAY ORAL 04/04/19 13:00 04/11/19 12:59 04/05/19 09:00 Vancomycin HCl (Vanco rx to dose) 1 ea DAILY PRN MISC Per rx protocol 04/01/19 08:15 05/01/19 08:14 Ashley Wasserman MD Apr 05, 2019 15:37
[2019-04-05 16:00] VITALS: BP 150/74
--- NOTE | 2019-04-05 16:47 | Cardiology Report ---
APPROVED REPORT EXAM: Two-dimensional and M-mode echocardiogram with Doppler and color Doppler. INDICATION ENDOCARTITIS M-Mode DIMENSIONS IVSd1.5 (0.7-1.1cm)Left Atrium (MM)3.6 (1.6-4.0cm) LVDd4.2 (3.5-5.6cm)Aortic Root4.3 (2.0-3.7cm) PWd0.9 (0.7-1.1cm)Aortic Cusp Exc.1.5 (1.5-2.0cm) IVSs1.5 cm LVDs2.0 (2.5-4.0cm) PWs0.6 cm Technically difficult study due to poor acoustical windows. Normal left ventricular chamber size, systolic function and wall motion to extent visualized. Left ventricular ejection fraction estimated to be 60-65 %. Mild left ventricular hypertrophy. No evidence of pericardial effusion. All other cardiac chamber sizes are within normal limits. Aortic valve calcification with decreased cusp excursion c/w aortic stenosis. Thickened mitral valve leaflets with normal excursion. Mitral annulus and aortic root calcification. Normal pulmonic valve structure. Normal tricuspid valve structure. IVC at normal size with physiologic collapse. A color flow and spectral Doppler study was performed and revealed: Trace aortic insufficiency. Peak aortic valve gradient of 39 mm Hg and a mean of 19 mmHg. Aortic valve area 1.7 cm2 calculated by continuity equation. Trace mitral regurgitation. Left ventricular diastolic function not diagnostic due to cardiac angle. Trace tricuspid regurgitation. Tricuspid systolic velocities suggests peak right ventricular systolic pressure of 39 mmHg,consistent with mild pulmonary hypertension. Pulmonic regurgitation present.
--- NOTE | 2019-04-05 17:28 | Surgery Progress Note ---
Surgery Progress Note Subjective Additional Comments no acute events wants water still Objective Last 24 Hour Vital Signs Date Time Temp Pulse Resp B/P (MAP) Pulse Ox O2 Delivery O2 Flow Rate FiO2 04/05/19 16:00 97.3 79 20 150/74 (99) 100 04/05/19 12:00 72 04/05/19 11:54 98.6 76 20 141/78 (99) 100 04/05/19 09:00 Room Air 04/05/19 09:00 77 137/56 04/05/19 08:00 98.2 77 20 137/56 (83) 100 04/05/19 08:00 71 04/05/19 06:00 128/69 04/05/19 04:00 97.5 79 20 128/69 (88) 98 04/05/19 04:00 61 04/05/19 00:00 75 04/05/19 00:00 98.6 85 23 138/62 (87) 100 04/04/19 22:00 135/70 04/04/19 21:13 68 20 97 Room Air 21 04/04/19 21:03 78 146/71 04/04/19 21:00 Room Air 04/04/19 20:00 76 04/04/19 20:00 98.4 78 20 146/71 (96) 100 I&O Intake and Output 04/04/19 04/05/19 19:00 07:00 Intake Total 150 ml 200 ml Output Total 800 ml 1500 ml Balance -650 ml -1300 ml Intake Oral 150 ml 200 ml Output Urine Total 800 ml 1500 ml # Bowel Movements 2 1 Dressing: other Wound: other Drains: other Cardiovascular: RSR Respiratory: decreased breath sounds Abdomen: soft, present bowel sounds Extremities: no cyanosis, other Laboratory Tests Test 04/05/19 08:10 White Blood Count 3.8 K/UL (4.8-10.8) L Red Blood Count 3.46 M/UL (4.70-6.10) L Hemoglobin 9.5 G/DL (14.2-18.0) L Hematocrit 31.2 % (42.0-52.0) L Mean Corpuscular Volume 90 FL (80-99) Mean Corpuscular Hemoglobin 27.5 PG (27.0-31.0) Mean Corpuscular Hemoglobin Concent 30.5 G/DL (32.0-36.0) L Red Cell Distribution Width 18.4 % (11.6-14.8) H Platelet Count 94 K/UL (150-450) L Mean Platelet Volume 10.6 FL (6.5-10.1) H Neutrophils (%) (Auto) % (45.0-75.0) Lymphocytes (%) (Auto) % (20.0-45.0) Monocytes (%) (Auto) % (1.0-10.0) Eosinophils (%) (Auto) % (0.0-3.0) Basophils (%) (Auto) % (0.0-2.0) Differential Total Cells Counted 100 Neutrophils % (Manual) 59 % (45-75) Lymphocytes % (Manual) 22 % (20-45) Monocytes % (Manual) 15 % (1-10) H Eosinophils % (Manual) 1 % (0-3) Basophils % (Manual) 0 % (0-2) Promyelocytes % 3 % (0-0) H Band Neutrophils 0 % (0-8) Platelet Estimate Decreased L Platelet Morphology Normal Hypochromasia 1+ Anisocytosis 1+ Sodium Level 147 MMOL/L (136-145) H Potassium Level 3.2 MMOL/L (3.5-5.1) L Chloride Level 117 MMOL/L (98-107) H Carbon Dioxide Level 26 MMOL/L (21-32) Anion Gap 4 mmol/L (5-15) L Blood Urea Nitrogen 50 mg/dL (7-18) H Creatinine 2.0 MG/DL (0.55-1.30) H Estimat Glomerular Filtration Rate mL/min (>60) Glucose Level 196 MG/DL (74-106) H Calcium Level 7.2 MG/DL (8.5-10.1) L Plan Problems: (1) Scrotal lesion Assessment & Plan: This is a 83-year-old male with multiple medical morbidities who was identified to have abnormal scrotal lesions on admission. There are 3 lesions on the scrotum clearly identified and likely old small abscesses or carbuncles which have healed slowly. Patient is incontinent With leakage of stool identified around the scrotal sac on the posterior aspect where the lesions are located. No signs of active infection no active drainage nontender skin macerated Recommend washing the scrotum daily with normal saline. Apply skin protectant and moisture absorbent dressing daily and as needed saturation We will follow and monitor for healing (2) Sacral decubitus ulcer, stage III Assessment & Plan: Pt presented on admission with multiple pressure injuries. Full thickness sacral pressure injury. Base of wound is viable with an area that is purple in center. Semi-detached black borders(L)9.5cm x (W)4.9cm x(D) 0.2cm .Non-blanching erythema periwound. Multiple pressure injuries Scrotum. Base of pressure injury R scrotum 75% pink granulation,25% slough. Edges pink,flat and adherent to base of wound.(L)2.2cm x (W)0.9cm.Ful thickness pressure injury center -base of scrotum (L)0.5cm x (W) 0.4cm. Base of wound has 100% slough. Full thickness pressure injury L scrotum ( L)2cm x (W01.1cm. Base of wound has 90% slough ,10% viable. Reabsorbing blood blister R heel heel. Base of wound black (L)2.2cm x (W)2cm with red tinged borders with fluctuance. (L)5.5cm x(W)5cm. Reabsorbing Blood Blister L heel. Base of wound is black ,dry with maroon and fluctuant borders.(L)6.5cm x (W)6cm Abd folds are moist and dark but is intact. Tx.Plan: Cleanse Sacral wound with Saline. Apply Therahoney. Apply Moisture Barrier Paste periwound. Cover with Optifoam drsg Daily and prn. Cleanse wounds on Scrotum with saline. Apply Therhaoney to each wound. Cover with Optifoam drsg. Change Daily and prn. Apply Moisture Barrier to Abd folds and Bilat groin Daily and prn. APM/NOLBERTO Mattress overlay. Reposition at least every 2hours or as tolerated. Off-load heels with pillow. (3) Bladder cancer (4) C. difficile colitis Assessment & Plan: blood cultures negative C diff positive - discussed with ID cont abx labs noted exam stable wants water but does not drink when given pending IVC filter, consent obtained Bebeto Pepe Apr 05, 2019 17:28
[2019-04-05] MEDS ORDERED: Sodium Citrate 30ml ORAL SCH (18:00)
--- NOTE | 2019-04-05 19:40 | NUR ---
HAND-OFF: Report given to MATT Rangel. Pt is in stable condition; plan of care endorsed.
--- NOTE | 2019-04-05 19:45 | NUR ---
NURSE NOTES: Received report from Anika Kirkpatrick RN. Patient in bed awake with no complaints of acute pain or distress noted. Kept clean, dry, and comfortable in bed. WC orders active and implemented, turned Q2 and PRN;on P200 mattress. Patient kept on bedrest for weakness and is on continuous cardiac monitoring per protocol. Safety precaution in place; siderails X3 up, call light within reach, bed in lowest position, brakes and alarm on at all times. Needs and wants anticipated and attended. Will continue plan of care. Waiting on MD Lux for IVC filter insertion clearance.
[2019-04-05 20:00] VITALS: BP 137/64
[2019-04-06] VITALS (7 sets, daily range): BP systolic 117–141; BP diastolic 55–68
[2019-04-06] MEDS: D5W w/KCl 20mEq 1,000 ML IV SCH ×3 (02:00→21:43)
[2019-04-06] MEDS: HydrALAZINE 50mg tab ORAL SCH ×4 (05:16→22:00)
[2019-04-06] MEDS ORDERED: Lidocaine 1% Plain 30 ml INJ ONE (06:00)
[2019-04-06] MEDS ORDERED: Omnipaque-300 100ml vial INJ ONE (06:00)
[2019-04-06] MEDS ORDERED: Heparin1,000 units/500ml Premix(Conc:2 units/ml) ONE (06:00)
[2019-04-06] MEDS: NovoLOG Insulin Flexpen SUBQ SCH ×4 (06:41→21:37)
[2019-04-06 06:53] LABS: HEMOGLOBIN 10.3 G/DL (14.2-18.0); MEAN CORPUSCULAR VOLUME 91 FL (80-99); PLATELET COUNT 95 K/UL (150-450); RED BLOOD COUNT 3.63 M/UL (4.70-6.10); RED CELL DISTRIBUTION WIDTH 18.1 % (11.6-14.8); WHITE BLOOD COUNT 4.1 K/UL (4.8-10.8)
--- NOTE | 2019-04-06 06:54 | NUR ---
NURSE NOTES: Called and left message for Leopoldo Wasserman MD. regarding 72hr BC result, pending IVC filter insertion clearance.
[2019-04-06 07:37] LABS: ANION GAP 7 mmol/L (5-15); BLOOD UREA NITROGEN 38 mg/dL (7-18); CALCIUM 7.2 MG/DL (8.5-10.1); CARBON DIOXIDE 24 MMOL/L (21-32); CHLORIDE 116 MMOL/L (98-107); CREATININE 1.7 MG/DL (0.55-1.30); POTASSIUM 3.4 MMOL/L (3.5-5.1); SODIUM 147 MMOL/L (136-145)
--- NOTE | 2019-04-06 07:42 | NUR ---
HAND-OFF: Report given to Bandar Mosqueda RN. Patient in bed with no S/S of distress. Endorsed plan of care.
--- NOTE | 2019-04-06 08:11 | Hematology/Onc Progress Note ---
Assessment/Plan Assessment/Plan Assessment and Recs: # ACUTE DEEP VEIN THROMBOSIS BILATERAL, new onset, from 04/02/19 --> reviewed images with radiology, goes from common to proximal common femoral v ein --> V/Q scan --> shows low prob pe --> given low h/h and low plts, recommend ivc filter placement, consent has been signed --> cleared with other consultants, zen RN --> awaiting clearance of blood cultures prior to IVCf placement, dw ID # Bladder cancer requires resection v chemo/xrt -- presented with multi masses CT shows Scattered eccentric mural thickening/masses in the urinary bladder wall , correlating with findings on recent ultrasound. No significant perivesical stranding. Recommend further evaluation with cystoscopy. --> urology consulted, appreciate input --> Uro note from prior admission: Tolerated bladder tumor resection well. Unfortunately greater part of the bladder is involved and essentially replaced all normal bladder with tumor. I can not resect all the tumors. --> may consider chemo/radiation as outpatient --> path does confirm malignancy --> CBI as needed per uro # Thrombocytopenia - potential causes multifactorial, evaluate liver and viral etiologies to begin, also could be related to underlying medications patient has received. --> Hep panel and HIV --> NEGATIVE --> US abd showed bladder masses--> ct reviewed as well --> Peripheral smear ordered to evaluate for blasts /schistocytes --> none noted --> abx and other meds have been reviewed --> ok for ppx if plt >50k w/ either heparin or lovenox --> trend plt >92-->104-->86-->73 # Anemia of iron deficiency likely due to hematuria --> iv iron x 5 days low ferritin, completed from prior admission --> likely due to hematuria --> have started on ivf and consider uro prn cysto --> hgb goal >7 --> cont po folic acid --> hgb trend: 7.4 # Acute renal injury --> cr >1.4-->1.4-->1.7-->1.5-->3.7 --> per renal recs --> volume expansion # HTN --> cards is following, appreciate recs # C. diff colitis --> on po vanc # Hematuria # UTI (urinary tract infection) --> per id on abx, cefe/vanc # Scrotal lesions --> per surg eval # Dehydration # Dvt ppx heparin sqand ivf filter The timing of this note does not necessarily reflect the time of the patient was seen. GREATLY APPRECIATE CONSULTATION. Subjective Constitutional: Denies: no symptoms, chills, fever, malaise, weakness, other HEENT: Denies: no symptoms, eye pain, blurred vision, tearing, double vision, ear pain, ear discharge, nose pain, nose congestion, throat pain, throat swelling, mouth pain, mouth swelling, other Cardiovascular: Denies: no symptoms, chest pain, edema, irregular heart rate, lightheadedness, palpitations, syncope, other Respiratory: Denies: no symptoms, cough, shortness of breath, SOB with excertion, SOB at rest, sputum, wheezing, other Neurologic/Psychiatric: Denies: no symptoms, anxiety, depressed, emotional problems, headache, numbness, paresthesia, pre-existing deficit, seizure, tingling, tremors, weakness, other Endocrine: Denies: no symptoms, excessive sweating, flushing, intolerance to cold, intolerance to heat, increased hunger, increased thirst, increased urine, unexplained weight gain, unexplained weight loss, other Allergies: Coded Allergies: No Known Allergies (Unverified , 12/20/18) Subjective 04/03: s/p 1 bag iv iron, hgb 7.4, repeat cbc tomorrow, consent for ivc filter has been signed 04/04: is pending clearance of blood cultures, have dw id, potentially thurs for ivcf placement 04/05: no events, still pending ivc filter, have dw rn and id 04/06: no events, no bleeding, pending filter, as per id clearance Objective Objective Current Medications Medications (Trade) Dose Ordered Sig/Sallie Route PRN Reason Start Time Stop Time Status Last Admin Dose Admin Acetaminophen (Tylenol) 650 mg Q4H PRN ORAL fever 04/01/19 08:00 05/01/19 07:59 Allopurinol (Allopurinol) 300 mg DAILY ORAL 04/03/19 10:00 05/03/19 09:59 04/05/19 09:01 Carvedilol (Coreg) 12.5 mg EVERY 12 HOURS ORAL 04/02/19 21:00 05/01/19 08:59 04/05/19 21:01 Cefepime HCl 1 gm/ Dextrose 55 ml @ 110 mls/hr Q24H IVPB 04/01/19 12:00 04/08/19 11:59 04/05/19 12:12 Dextrose (Dextrose 50%) 25 ml Q30M PRN IV Hypoglycemia 04/01/19 10:30 05/01/19 10:29 Dextrose (Dextrose 50%) 50 ml Q30M PRN IV Hypoglycemia 04/01/19 10:30 05/01/19 10:29 Dextrose/ Electrolytes 1,000 ml @ 75 mls/hr [id number] IV 04/04/19 10:00 05/04/19 09:59 04/05/19 12:11 Heparin Sodium (Porcine) (Heparin 5000 units/ml) 5,000 units EVERY 12 HOURS SUBQ 04/01/19 09:00 05/01/19 08:59 Hydralazine HCl (Apresoline) 50 mg Q8HR ORAL 04/01/19 14:00 05/01/19 13:59 04/05/19 22:47 Insulin Aspart (NovoLOG) BEFORE MEALS AND HS SUBQ 04/01/19 11:30 05/01/19 11:29 04/06/19 06:41 Minoxidil (Loniten) 2.5 mg Q4H PRN ORAL bp over 165 syst 04/01/19 12:15 05/01/19 12:14 Morphine Sulfate (Morphine Sulfate) 2 mg Q4H PRN IVP Moderate Pain (Pain Scale 4-6) 04/01/19 08:00 04/08/19 07:59 Ondansetron HCl (Zofran) 4 mg Q6H PRN IVP Nausea & Vomiting 04/01/19 08:00 05/01/19 07:59 Potassium Chloride (K-Dur) 40 meq TID ORAL 04/05/19 13:00 05/01/19 12:59 Quetiapine Fumarate (SEROqueL) 50 mg TWICE A DAY ORAL 04/03/19 18:00 05/03/19 17:59 04/05/19 09:00 Sodium Citrate (Bicitra) 30 ml BID ORAL 04/05/19 18:00 05/03/19 11:59 Tamsulosin HCl (Flomax) 0.4 mg BID ORAL 04/01/19 13:00 05/01/19 12:59 04/05/19 09:01 Temazepam (Restoril) 15 mg HSPRN PRN ORAL Insomnia 04/01/19 08:00 04/08/19 07:59 04/05/19 22:47 Vancomycin HCl (Firvanq) 125 mg FOUR TIMES A DAY ORAL 04/04/19 13:00 04/11/19 12:59 04/05/19 21:01 Vancomycin HCl (Vanco rx to dose) 1 ea DAILY PRN MISC Per rx protocol 04/01/19 08:15 05/01/19 08:14 Last 24 Hour Vital Signs Date Time Temp Pulse Resp B/P (MAP) Pulse Ox O2 Delivery O2 Flow Rate FiO2 04/06/19 05:16 117/55 04/06/19 04:00 70 04/06/19 04:00 97.6 68 20 117/55 (75) 98 04/06/19 00:00 70 04/06/19 00:00 98.0 71 18 140/60 (86) 99 04/05/19 22:47 127/63 04/05/19 21:01 79 137/64 04/05/19 21:00 Room Air 04/05/19 20:11 94 Nasal Cannula 2.0 28 04/05/19 20:08 74 20 94 Nasal Cannula 2.0 28 04/05/19 20:00 67 04/05/19 20:00 98.4 79 18 137/64 (88) 100 04/05/19 16:00 76 04/05/19 16:00 97.3 79 20 150/74 (99) 100 04/05/19 12:00 72 04/05/19 11:54 98.6 76 20 141/78 (99) 100 04/05/19 09:00 Room Air 04/05/19 09:00 77 137/56 04/05/19 08:00 98.2 77 20 137/56 (83) 100 04/05/19 08:00 71 04/05/19 06:00 128/69 04/05/19 04:00 97.5 79 20 128/69 (88) 98 04/05/19 04:00 61 04/05/19 00:00 75 04/05/19 00:00 98.6 85 23 138/62 (87) 100 11/20/19 22:00 135/70 04/04/19 21:13 68 20 97 Room Air 21 04/04/19 21:03 78 146/71 04/04/19 21:00 Room Air 04/04/19 20:00 76 04/04/19 20:00 98.4 78 20 146/71 (96) 100 04/04/19 16:00 98.2 77 18 124/58 (80) 100 04/04/19 16:00 74 04/04/19 14:00 109/50 04/04/19 12:00 98.2 74 18 124/44 (70) 99 04/04/19 12:00 75 04/04/19 09:00 Room Air 04/04/19 09:00 78 108/41 Intake and Output 04/05/19 04/06/19 19:00 07:00 Intake Total 195 ml 600 ml Output Total 1100 ml 1350 ml Balance -905 ml -750 ml Intake Oral 195 ml 600 ml Output Urine Total 1100 ml 1350 ml # Bowel Movements 1 3 Labs Test 04/04/19 06:40 04/05/19 08:10 04/06/19 06:30 White Blood Count 4.9 K/UL (4.8-10.8) 3.8 K/UL (4.8-10.8) 4.1 K/UL (4.8-10.8) Red Blood Count 2.64 M/UL (4.70-6.10) 3.46 M/UL (4.70-6.10) 3.63 M/UL (4.70-6.10) Hemoglobin 7.5 G/DL (14.2-18.0) 9.5 G/DL (14.2-18.0) 10.3 G/DL (14.2-18.0) Hematocrit 24.1 % (42.0-52.0) 31.2 % (42.0-52.0) 33.0 % (42.0-52.0) Mean Corpuscular Volume 91 FL (80-99) 90 FL (80-99) 91 FL (80-99) Mean Corpuscular Hemoglobin 28.4 PG (27.0-31.0) 27.5 PG (27.0-31.0) 28.3 PG (27.0-31.0) Mean Corpuscular Hemoglobin Concent 31.1 G/DL (32.0-36.0) 30.5 G/DL (32.0-36.0) 31.2 G/DL (32.0-36.0) Red Cell Distribution Width 19.4 % (11.6-14.8) 18.4 % (11.6-14.8) 18.1 % (11.6-14.8) Platelet Count 81 K/UL (150-450) 94 K/UL (150-450) 95 K/UL (150-450) Mean Platelet Volume 8.7 FL (6.5-10.1) 10.6 FL (6.5-10.1) 8.4 FL (6.5-10.1) Neutrophils (%) (Auto) % (45.0-75.0) % (45.0-75.0) % (45.0-75.0) Lymphocytes (%) (Auto) % (20.0-45.0) % (20.0-45.0) % (20.0-45.0) Monocytes (%) (Auto) % (1.0-10.0) % (1.0-10.0) % (1.0-10.0) Eosinophils (%) (Auto) % (0.0-3.0) % (0.0-3.0) % (0.0-3.0) Basophils (%) (Auto) % (0.0-2.0) % (0.0-2.0) % (0.0-2.0) Differential Total Cells Counted 100 100 Neutrophils % (Manual) 77 % (45-75) 59 % (45-75) Lymphocytes % (Manual) 17 % (20-45) 22 % (20-45) Monocytes % (Manual) 5 % (1-10) 15 % (1-10) Eosinophils % (Manual) 1 % (0-3) 1 % (0-3) Basophils % (Manual) 0 % (0-2) 0 % (0-2) Band Neutrophils 0 % (0-8) 0 % (0-8) Platelet Estimate Decreased Decreased Platelet Morphology Normal Normal Sodium Level 150 MMOL/L (136-145) 147 MMOL/L (136-145) 147 MMOL/L (136-145) Potassium Level 3.1 MMOL/L (3.5-5.1) 3.2 MMOL/L (3.5-5.1) 3.4 MMOL/L (3.5-5.1) Chloride Level 118 MMOL/L (98-107) 117 MMOL/L (98-107) 116 MMOL/L (98-107) Carbon Dioxide Level 18 MMOL/L (21-32) 26 MMOL/L (21-32) 24 MMOL/L (21-32) Anion Gap 14 mmol/L (5-15) 4 mmol/L (5-15) 7 mmol/L (5-15) Blood Urea Nitrogen 61 mg/dL (7-18) 50 mg/dL (7-18) 38 mg/dL (7-18) Creatinine 2.4 MG/DL (0.55-1.30) 2.0 MG/DL (0.55-1.30) 1.7 MG/DL (0.55-1.30) Estimat Glomerular Filtration Rate mL/min (>60) mL/min (>60) mL/min (>60) Glucose Level 155 MG/DL (74-106) 196 MG/DL (74-106) 162 MG/DL (74-106) Calcium Level 7.3 MG/DL (8.5-10.1) 7.2 MG/DL (8.5-10.1) 7.2 MG/DL (8.5-10.1) Phosphorus Level 3.7 MG/DL (2.5-4.9) Magnesium Level 2.1 MG/DL (1.8-2.4) Total Bilirubin 0.2 MG/DL (0.2-1.0) Aspartate Amino Transf (AST/SGOT) 21 U/L (15-37) Alanine Aminotransferase (ALT/SGPT) 9 U/L (12-78) Alkaline Phosphatase 41 U/L (46-116) Total Protein 5.7 G/DL (6.4-8.2) Albumin 1.4 G/DL (3.4-5.0) Globulin 4.3 g/dL Albumin/Globulin Ratio 0.3 (1.0-2.7) Random Vancomycin Level 15.3 ug/mL Promyelocytes % 3 % (0-0) Hypochromasia 1+ Anisocytosis 1+ Height (Feet): 5 Height (Inches): 9.00 Weight (Pounds): 174 Objective Physical Exam Vital Signs: have been reviewed General Appearance: non-toxic, obese, Chronically Ill Respiratory: chest non-tender, lungs clear, mirian BSs, no rhonchi Cardiovascular: normal inspection, regular rate, rhythm, GI: normal inspection, soft Genitourinary: MANZANO+ Musculoskeletal: normal inspection Neurologic: normal inspection, alert Psychiatric: normal inspection Skin: other - Marcelo Shen MD Apr 06, 2019 08:11
[2019-04-06] MEDS: Heparin 5000 units/ml inj SUBQ SCH ×2 (09:00→21:00)
--- NOTE | 2019-04-06 09:20 | General Progress Note ---
Assessment/Plan Problem List: (1) Invasive carcinoma of urinary bladder ICD Codes: C67.9 - Malignant neoplasm of bladder, unspecified SNOMED: 439265781 (2) Anemia ICD Codes: D64.9 - Anemia, unspecified SNOMED: 037776459 (3) Diabetes ICD Codes: E11.9 - Type 2 diabetes mellitus without complications SNOMED: 37395475 (4) HTN (hypertension) ICD Codes: I10 - Essential (primary) hypertension SNOMED: 98363357 (5) Urinary tract infection ICD Codes: N39.0 - Urinary tract infection, site not specified SNOMED: 53990394 (6) Bladder cancer ICD Codes: C67.9 - Malignant neoplasm of bladder, unspecified SNOMED: 190077315 Status: unchanged Assessment/Plan: pt diet eval 02 pulm tx abx uro f/u cbc bmp am promise ltach eval Subjective Constitutional: Reports: weakness Allergies: Coded Allergies: No Known Allergies (Unverified , 12/20/18) All Systems: reviewed and negative except above Subjective o2nc sleepy calm Objective Last 24 Hour Vital Signs Date Time Temp Pulse Resp B/P (MAP) Pulse Ox O2 Delivery O2 Flow Rate FiO2 04/06/19 08:17 Nasal Cannula 2.0 04/06/19 05:16 117/55 04/06/19 04:00 70 04/06/19 04:00 97.6 68 20 117/55 (75) 98 04/06/19 00:00 70 04/06/19 00:00 98.0 71 18 140/60 (86) 99 04/05/19 22:47 127/63 04/05/19 21:01 79 137/64 04/05/19 21:00 Room Air 04/05/19 20:11 94 Nasal Cannula 2.0 28 04/05/19 20:08 74 20 94 Nasal Cannula 2.0 28 04/05/19 20:00 67 04/05/19 20:00 98.4 79 18 137/64 (88) 100 04/05/19 16:00 76 04/05/19 16:00 97.3 79 20 150/74 (99) 100 04/05/19 12:00 72 04/05/19 11:54 98.6 76 20 141/78 (99) 100 Intake and Output 04/05/19 04/06/19 19:00 07:00 Intake Total 195 ml 600 ml Output Total 1100 ml 1350 ml Balance -905 ml -750 ml Intake Oral 195 ml 600 ml Output Urine Total 1100 ml 1350 ml # Bowel Movements 1 3 Laboratory Tests 04/06/19 06:30: White Blood Count 4.1L, Red Blood Count 3.63L, Hemoglobin 10.3L, Hematocrit 33.0L, Mean Corpuscular Volume 91, Mean Corpuscular Hemoglobin 28.3, Mean Corpuscular Hemoglobin Concent 31.2L, Red Cell Distribution Width 18.1H, Platelet Count 95L, Mean Platelet Volume 8.4, Neutrophils (%) (Auto) , Lymphocytes (%) (Auto) , Monocytes (%) (Auto) , Eosinophils (%) (Auto) , Basophils (%) (Auto) , Neutrophils % (Manual) [Pending], Lymphocytes % (Manual) [Pending], Platelet Estimate [Pending], Platelet Morphology [Pending], Sodium Level 147H, Potassium Level 3.4L, Chloride Level 116H, Carbon Dioxide Level 24, Anion Gap 7, Blood Urea Nitrogen 38H, Creatinine 1.7H, Estimat Glomerular Filtration Rate , Glucose Level 162H, Calcium Level 7.2L Height (Feet): 5 Height (Inches): 9.00 Weight (Pounds): 174 General Appearance: lethargic EENT: normal ENT inspection Neck: normal alignment Cardiovascular: normal peripheral pulses, normal rate, regularly irregular Respiratory/Chest: chest wall non-tender, lungs clear, normal breath sounds Abdomen: normal bowel sounds, non tender, soft Extremities: normal inspection Edema: no edema noted Arm (L), no edema noted Arm (R), no edema noted Leg (L), no edema noted Leg (R), no edema noted Pedal (L), no edema noted Pedal (R), no edema noted Generalized Neurologic: motor weakness Skin: normal pigmentation, warm/dry Jamie Gray DO Apr 06, 2019 09:20
[2019-04-06] MEDS: Tamsulosin 0.4mg cap ORAL SCH ×2 (09:24→18:40)
[2019-04-06] MEDS: Carvedilol 12.5mg tab ORAL SCH ×2 (09:24→21:10)
[2019-04-06] MEDS: Vancomycin oral 125mg/2.5ml ORAL SCH ×4 (10:10→21:10)
--- NOTE | 2019-04-06 11:05 | General Progress Note ---
Assessment/Plan Status: unchanged Assessment/Plan: GI: Plan Problems: (1) Dehydration (2) Electrolyte imbalance (3) C. difficile colitis (4) Anemia Plan fecal occult blood stool positive C. difficile positive Recommend EGD and colonoscopy at some point to evaluate possible GI bleed, will hold at this time given active C. difficile colitis. Antibiotics per infectious diseases off PPI IV and p.o. hydration plus electrolyte correction poor po intake Monitor H&H, PRN transfusions po vanco for C.diff off all laxatives We will follow with additional recommendations on a daily basis add ensure Subjective Allergies: Coded Allergies: No Known Allergies (Unverified , 12/20/18) Objective Last 24 Hour Vital Signs Date Time Temp Pulse Resp B/P (MAP) Pulse Ox O2 Delivery O2 Flow Rate FiO2 04/06/19 09:24 70 117/55 04/06/19 08:17 Nasal Cannula 2.0 04/06/19 05:16 117/55 04/06/19 04:00 70 04/06/19 04:00 97.6 68 20 117/55 (75) 98 04/06/19 00:00 70 04/06/19 00:00 98.0 71 18 140/60 (86) 99 04/05/19 22:47 127/63 04/05/19 21:01 79 137/64 04/05/19 21:00 Room Air 04/05/19 20:11 94 Nasal Cannula 2.0 28 04/05/19 20:08 74 20 94 Nasal Cannula 2.0 28 04/05/19 20:00 67 04/05/19 20:00 98.4 79 18 137/64 (88) 100 04/05/19 16:00 76 04/05/19 16:00 97.3 79 20 150/74 (99) 100 04/05/19 12:00 72 04/05/19 11:54 98.6 76 20 141/78 (99) 100 Intake and Output 04/05/19 04/06/19 19:00 07:00 Intake Total 195 ml 720 ml Output Total 1100 ml 1350 ml Balance -905 ml -630 ml Intake Oral 195 ml 720 ml Output Urine Total 1100 ml 1350 ml # Bowel Movements 1 3 Laboratory Tests 04/06/19 06:30: White Blood Count 4.1L, Red Blood Count 3.63L, Hemoglobin 10.3L, Hematocrit 33.0L, Mean Corpuscular Volume 91, Mean Corpuscular Hemoglobin 28.3, Mean Corpuscular Hemoglobin Concent 31.2L, Red Cell Distribution Width 18.1H, Platelet Count 95L, Mean Platelet Volume 8.4, Neutrophils (%) (Auto) , Lymphocytes (%) (Auto) , Monocytes (%) (Auto) , Eosinophils (%) (Auto) , Basophils (%) (Auto) , Differential Total Cells Counted 100, Neutrophils % ( Manual) 72, Lymphocytes % (Manual) 22, Monocytes % (Manual) 6, Eosinophils % ( Manual) 0, Basophils % (Manual) 0, Band Neutrophils 0, Platelet Estimate DecreasedL, Platelet Morphology Normal, Hypochromasia 1+, Anisocytosis 1+, Sodium Level 147H, Potassium Level 3.4L, Chloride Level 116H, Carbon Dioxide Level 24, Anion Gap 7, Blood Urea Nitrogen 38H, Creatinine 1.7H, Estimat Glomerular Filtration Rate , Glucose Level 162H, Calcium Level 7.2L 04/06/19 08:10: Random Vancomycin Level 13.1 Height (Feet): 5 Height (Inches): 9.00 Weight (Pounds): 174 General Appearance: alert EENT: normal ENT inspection Neck: supple Cardiovascular: normal rate Respiratory/Chest: decreased breath sounds Abdomen: normal bowel sounds, non tender, soft Extremities: non-tender Terell Valiente MD Apr 06, 2019 11:05
--- NOTE | 2019-04-06 11:26 | Pulmonology Progress Note ---
Assessment/Plan Problems: (1) C. difficile colitis (2) Acute respiratory failure with hypoxemia (3) Acute deep vein thrombosis (DVT) of both femoral veins (4) Thrombocytopenia (5) Invasive carcinoma of urinary bladder (6) CAD (coronary artery disease) (7) Anemia (8) Diabetes (9) HTN (hypertension) (10) Bladder cancer Assessment/Plan renal function improving V/q scan showed low probability PE venous studies of legs showed acute DVT bilaterally IVC filter today respiratory treatment check electrolytes titrate fiio2 to sat of 92% dvt prophylaxis. renal function improving Subjective ROS Limited/Unobtainable: No Interval Events: still waiting for IVC filter Allergies: Coded Allergies: No Known Allergies (Unverified , 12/20/18) Objective Last 24 Hour Vital Signs Date Time Temp Pulse Resp B/P (MAP) Pulse Ox O2 Delivery O2 Flow Rate FiO2 04/06/19 10:57 95 Nasal Cannula 2.0 28 04/06/19 10:57 70 20 95 Nasal Cannula 2.0 28 04/06/19 09:24 70 117/55 04/06/19 08:17 Nasal Cannula 2.0 04/06/19 05:16 117/55 04/06/19 04:00 70 04/06/19 04:00 97.6 68 20 117/55 (75) 98 04/06/19 00:00 70 04/06/19 00:00 98.0 71 18 140/60 (86) 99 04/05/19 22:47 127/63 04/05/19 21:01 79 137/64 04/05/19 21:00 Room Air 04/05/19 20:11 94 Nasal Cannula 2.0 28 04/05/19 20:08 74 20 94 Nasal Cannula 2.0 28 04/05/19 20:00 67 04/05/19 20:00 98.4 79 18 137/64 (88) 100 04/05/19 16:00 76 04/05/19 16:00 97.3 79 20 150/74 (99) 100 04/05/19 12:00 72 04/05/19 11:54 98.6 76 20 141/78 (99) 100 Intake and Output 04/05/19 04/06/19 19:00 07:00 Intake Total 195 ml 720 ml Output Total 1100 ml 1350 ml Balance -905 ml -630 ml Intake Oral 195 ml 720 ml Output Urine Total 1100 ml 1350 ml # Bowel Movements 1 3 General Appearance: WD/WN HEENT: normocephalic, atraumatic Respiratory/Chest: chest wall non-tender, lungs clear Cardiovascular: normal peripheral pulses, normal rate Abdomen: normal bowel sounds, soft, non tender Neurologic/Psychiatric: clinical liaison II-XII grossly normal Microbiology Date/Time Source Procedure Growth Status 04/04/19 01:00 Stool Clostridium difficile Toxin Assay - Final Complete Laboratory Tests 04/06/19 06:30: White Blood Count 4.1L, Red Blood Count 3.63L, Hemoglobin 10.3L, Hematocrit 33.0L, Mean Corpuscular Volume 91, Mean Corpuscular Hemoglobin 28.3, Mean Corpuscular Hemoglobin Concent 31.2L, Red Cell Distribution Width 18.1H, Platelet Count 95L, Mean Platelet Volume 8.4, Neutrophils (%) (Auto) , Lymphocytes (%) (Auto) , Monocytes (%) (Auto) , Eosinophils (%) (Auto) , Basophils (%) (Auto) , Differential Total Cells Counted 100, Neutrophils % ( Manual) 72, Lymphocytes % (Manual) 22, Monocytes % (Manual) 6, Eosinophils % ( Manual) 0, Basophils % (Manual) 0, Band Neutrophils 0, Platelet Estimate DecreasedL, Platelet Morphology Normal, Hypochromasia 1+, Anisocytosis 1+, Sodium Level 147H, Potassium Level 3.4L, Chloride Level 116H, Carbon Dioxide Level 24, Anion Gap 7, Blood Urea Nitrogen 38H, Creatinine 1.7H, Estimat Glomerular Filtration Rate , Glucose Level 162H, Calcium Level 7.2L 04/06/19 08:10: Random Vancomycin Level 13.1 Current Medications Medications (Trade) Dose Ordered Sig/Sallie Route PRN Reason Start Time Stop Time Status Last Admin Dose Admin Acetaminophen (Tylenol) 650 mg Q4H PRN ORAL fever 04/01/19 08:00 05/01/19 07:59 Allopurinol (Allopurinol) 300 mg DAILY ORAL 04/03/19 10:00 05/03/19 09:59 04/06/19 09:24 Carvedilol (Coreg) 12.5 mg EVERY 12 HOURS ORAL 04/02/19 21:00 05/01/19 08:59 04/06/19 09:24 Cefepime HCl 1 gm/ Dextrose 55 ml @ 110 mls/hr Q24H IVPB 04/01/19 12:00 04/08/19 11:59 04/05/19 12:12 Dextrose (Dextrose 50%) 25 ml Q30M PRN IV Hypoglycemia 04/01/19 10:30 05/01/19 10:29 Dextrose (Dextrose 50%) 50 ml Q30M PRN IV Hypoglycemia 04/01/19 10:30 05/01/19 10:29 Dextrose/ Electrolytes 1,000 ml @ 75 mls/hr [id number] IV 04/04/19 10:00 05/04/19 09:59 04/05/19 12:11 Heparin Sodium (Porcine) (Heparin 5000 units/ml) 5,000 units EVERY 12 HOURS SUBQ 04/01/19 09:00 05/01/19 08:59 Hydralazine HCl (Apresoline) 50 mg Q8HR ORAL 04/01/19 14:00 05/01/19 13:59 04/05/19 22:47 Insulin Aspart (NovoLOG) BEFORE MEALS AND HS SUBQ 04/01/19 11:30 05/01/19 11:29 04/06/19 06:41 Minoxidil (Loniten) 2.5 mg Q4H PRN ORAL bp over 165 syst 04/01/19 12:15 05/01/19 12:14 Morphine Sulfate (Morphine Sulfate) 2 mg Q4H PRN IVP Moderate Pain (Pain Scale 4-6) 04/01/19 08:00 04/08/19 07:59 Ondansetron HCl (Zofran) 4 mg Q6H PRN IVP Nausea & Vomiting 04/01/19 08:00 05/01/19 07:59 Potassium Chloride (K-Dur) 40 meq TID ORAL 04/05/19 13:00 05/01/19 12:59 04/06/19 09:25 Quetiapine Fumarate (SEROqueL) 50 mg TWICE A DAY ORAL 04/03/19 18:00 05/03/19 17:59 04/06/19 09:24 Tamsulosin HCl (Flomax) 0.4 mg BID ORAL 04/01/19 13:00 05/01/19 12:59 04/06/19 09:24 Temazepam (Restoril) 15 mg HSPRN PRN ORAL Insomnia 04/01/19 08:00 11/24/19 07:59 04/05/19 22:47 Vancomycin HCl (Firvanq) 125 mg FOUR TIMES A DAY ORAL 04/04/19 13:00 04/11/19 12:59 04/06/19 10:10 Vancomycin HCl (Vanco rx to dose) 1 ea DAILY PRN MISC Per rx protocol 04/01/19 08:15 05/01/19 08:14 Vancomycin HCl 1 gm/Dextrose 275 ml @ 183.708 mls/hr ONCE ONCE IVPB 04/06/19 12:00 04/06/19 13:29 Adam Moyer MD Apr 06, 2019 11:26
--- NOTE | 2019-04-06 11:26 | Infectious Diseases Prog Note ---
Assessment/Plan Assessment/Plan 83yo gentleman with PMH below presents from [facility] with confusion, wheezing and desaturation between 83-90%. Pt is oriented to self. Does not know where he is or why he is in the hospital. He initially says yes to abdominal pain, suprapubic pain, leg pain, arm pain but then denied it on second question. Denies fever, chills, cough, sob, diarrhea, dysuria. Unclear baseline. Pt recently had blood transfusion at [facility] 03/06. Pt was recently diagnosed with bladder cancer 12/2018 Afebrile On RA No leukocytosis No lactic acidosis Hypoxia at [facility], SP Possible PNA? flu swab negative CXR: Mild diffuse airspace opacities in both lungs. Lungs are underinflated.Lung findings are likely due to underinflation rather than pulmonary edema or atelectasis. Possible UTI? UA WBC TNTC, also moderate epithelial cells UCx: 50-60K amp sensitive E faecalis E faecalis bacteremia likely / UTI 04/01 BCx: E faecalis 04/02 BCx: ngtd TTE without vegetation C diff + 04/04 Acute DVT pending IVC filter RIGHT LEG: Venous imaging reveals acute thrombus in the common to superficial femoral veins. LEFT LEG: Venous imaging reveals acute thrombus in the common to superficial femoral veins. Hypokalemia MRSA screen negative ANGELA on CKD CAD Bladder cancer HTN DM CVA Dyslipidemia CKD Anemia BPH Plan: continue cefepime #6/8 and vancomycin IV #6/14 and Vancomycin PO #3/-14 f/u repeat bcx f/u MRSA screen aspiration precaution, elevate HOB monitor temp and CBC if repeat blood culture from 04/02 is negative at 72hrs, no contraindication from ID standpoint for IVC filter Thank you for this consult. [facility] will continue to follow the patient with you. Subjective Allergies: Coded Allergies: No Known Allergies (Unverified , 12/20/18) Subjective Afebrile. RA. Leukopenia IVC filter today Pt denies cough, sob, chills, chest pain, abdominal pain, diarrhea but unreliable. Nurse report episode of diarrhea this morning. Objective Vital Signs Last 24 Hour Vital Signs Date Time Temp Pulse Resp B/P (MAP) Pulse Ox O2 Delivery O2 Flow Rate FiO2 04/06/19 10:57 95 Nasal Cannula 2.0 28 04/06/19 10:57 70 20 95 Nasal Cannula 2.0 28 04/06/19 09:24 70 117/55 04/06/19 08:17 Nasal Cannula 2.0 04/06/19 05:16 117/55 04/06/19 04:00 70 04/06/19 04:00 97.6 68 20 117/55 (75) 98 04/06/19 00:00 70 04/06/19 00:00 98.0 71 18 140/60 (86) 99 04/05/19 22:47 127/63 04/05/19 21:01 79 137/64 04/05/19 21:00 Room Air 04/05/19 20:11 94 Nasal Cannula 2.0 28 04/05/19 20:08 74 20 94 Nasal Cannula 2.0 28 04/05/19 20:00 67 04/05/19 20:00 98.4 79 18 137/64 (88) 100 04/05/19 16:00 76 04/05/19 16:00 97.3 79 20 150/74 (99) 100 04/05/19 12:00 72 04/05/19 11:54 98.6 76 20 141/78 (99) 100 Height (Feet): 5 Height (Inches): 9.00 Weight (Pounds): 174 Objective Gen: NAD HEENT: anicteric sclera CV: RRR Resp: RRR Abd: normoactive Bs+. Soft. No TTP Back: no flank pain Neuro: AAOx1 Microbiology Date/Time Source Procedure Growth Status 04/04/19 01:00 Stool Clostridium difficile Toxin Assay - Final Complete Laboratory Tests Test 04/06/19 06:30 04/06/19 08:10 White Blood Count 4.1 K/UL (4.8-10.8) L Red Blood Count 3.63 M/UL (4.70-6.10) L Hemoglobin 10.3 G/DL (14.2-18.0) L Hematocrit 33.0 % (42.0-52.0) L Mean Corpuscular Volume 91 FL (80-99) Mean Corpuscular Hemoglobin 28.3 PG (27.0-31.0) Mean Corpuscular Hemoglobin Concent 31.2 G/DL (32.0-36.0) L Red Cell Distribution Width 18.1 % (11.6-14.8) H Platelet Count 95 K/UL (150-450) L Mean Platelet Volume 8.4 FL (6.5-10.1) Neutrophils (%) (Auto) % (45.0-75.0) Lymphocytes (%) (Auto) % (20.0-45.0) Monocytes (%) (Auto) % (1.0-10.0) Eosinophils (%) (Auto) % (0.0-3.0) Basophils (%) (Auto) % (0.0-2.0) Differential Total Cells Counted 100 Neutrophils % (Manual) 72 % (45-75) Lymphocytes % (Manual) 22 % (20-45) Monocytes % (Manual) 6 % (1-10) Eosinophils % (Manual) 0 % (0-3) Basophils % (Manual) 0 % (0-2) Band Neutrophils 0 % (0-8) Platelet Estimate Decreased L Platelet Morphology Normal Hypochromasia 1+ Anisocytosis 1+ Sodium Level 147 MMOL/L (136-145) H Potassium Level 3.4 MMOL/L (3.5-5.1) L Chloride Level 116 MMOL/L (98-107) H Carbon Dioxide Level 24 MMOL/L (21-32) Anion Gap 7 mmol/L (5-15) Blood Urea Nitrogen 38 mg/dL (7-18) H Creatinine 1.7 MG/DL (0.55-1.30) H Estimat Glomerular Filtration Rate mL/min (>60) Glucose Level 162 MG/DL (74-106) H Calcium Level 7.2 MG/DL (8.5-10.1) L Random Vancomycin Level 13.1 ug/mL Current Medications Medications (Trade) Dose Ordered Sig/Sallie Route PRN Reason Start Time Stop Time Status Last Admin Dose Admin Acetaminophen (Tylenol) 650 mg Q4H PRN ORAL fever 04/01/19 08:00 05/01/19 07:59 Allopurinol (Allopurinol) 300 mg DAILY ORAL 04/03/19 10:00 05/03/19 09:59 04/06/19 09:24 Carvedilol (Coreg) 12.5 mg EVERY 12 HOURS ORAL 04/02/19 21:00 05/01/19 08:59 04/06/19 09:24 Cefepime HCl 1 gm/ Dextrose 55 ml @ 110 mls/hr Q24H IVPB 04/01/19 12:00 04/08/19 11:59 04/05/19 12:12 Dextrose (Dextrose 50%) 25 ml Q30M PRN IV Hypoglycemia 04/01/19 10:30 05/01/19 10:29 Dextrose (Dextrose 50%) 50 ml Q30M PRN IV Hypoglycemia 04/01/19 10:30 05/01/19 10:29 Dextrose/ Electrolytes 1,000 ml @ 75 mls/hr [id number] IV 04/04/19 10:00 05/04/19 09:59 04/05/19 12:11 Heparin Sodium (Porcine) (Heparin 5000 units/ml) 5,000 units EVERY 12 HOURS SUBQ 04/01/19 09:00 05/01/19 08:59 Hydralazine HCl (Apresoline) 50 mg Q8HR ORAL 04/01/19 14:00 05/01/19 13:59 04/05/19 22:47 Insulin Aspart (NovoLOG) BEFORE MEALS AND HS SUBQ 04/01/19 11:30 05/01/19 11:29 04/06/19 06:41 Minoxidil (Loniten) 2.5 mg Q4H PRN ORAL bp over 165 syst 04/01/19 12:15 05/01/19 12:14 Morphine Sulfate (Morphine Sulfate) 2 mg Q4H PRN IVP Moderate Pain (Pain Scale 4-6) 04/01/19 08:00 04/08/19 07:59 Ondansetron HCl (Zofran) 4 mg Q6H PRN IVP Nausea & Vomiting 04/01/19 08:00 05/01/19 07:59 Potassium Chloride (K-Dur) 40 meq TID ORAL 04/05/19 13:00 05/01/19 12:59 04/06/19 09:25 Quetiapine Fumarate (SEROqueL) 50 mg TWICE A DAY ORAL 04/03/19 18:00 05/03/19 17:59 04/06/19 09:24 Tamsulosin HCl (Flomax) 0.4 mg BID ORAL 04/01/19 13:00 05/01/19 12:59 04/06/19 09:24 Temazepam (Restoril) 15 mg HSPRN PRN ORAL Insomnia 04/01/19 08:00 04/08/19 07:59 04/05/19 22:47 Vancomycin HCl (Firvanq) 125 mg FOUR TIMES A DAY ORAL 04/04/19 13:00 04/11/19 12:59 04/06/19 10:10 Vancomycin HCl (Vanco rx to dose) 1 ea DAILY PRN MISC Per rx protocol 04/01/19 08:15 05/01/19 08:14 Vancomycin HCl 1 gm/Dextrose 275 ml @ 183.708 mls/hr ONCE ONCE IVPB 04/06/19 12:00 04/06/19 13:29 Ashley Wasserman MD Apr 06, 2019 11:26
--- NOTE | 2019-04-06 11:34 | NUR ---
NURSE NOTES: Insulin held since pt refuses to eat and will only drink water and apple juice.
--- NOTE | 2019-04-06 11:57 | NUR ---
PT NOTE Patient positive for BLE DVT, IVC filter placement scheduled for later today. Will discharge patient from PT service at this time and will wait for MD resume order s/p procedure. Godfrey GUTIERREZ notified.
[2019-04-06] MEDS ORDERED: Vancomycin 1gm/D5W 275ml IVPB ONE ×2 (12:00)
--- NOTE | 2019-04-06 13:19 | NUR ---
RD ASSESSMENT & RECOMMENDATIONS SEE CARE ACTIVITY FOR COMPLETE ASSESSMENT DAILY ESTIMATED NEEDS: Needs based on wounds, renal, obese; 84kg adj 20-25 kcals/kg 1680- 2100 total kcals 1.25-1.5 g protein/kg 84- 126 g total protein 25-30 mL/kg 2100- 2520 total fluid mLs NUTRITION DIAGNOSIS: 1) Increased protein needs r/t wounds AEb multiple full thickness wounds, refer to WC eval. 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 3) Altered nutrition related lab values r/t clinical status as evidenced by elev BG (155 168), Na 150, K 3.1, elev BUN/ creat now trending down, low Hgb (7.5). (CURRENT DIET: Renal diet, nectar thick, liq. pureed like soup) PO DIET RECOMMENDATIONS: WITH CONTINUED POOR PO INTAKE, REC LIBERALIZED LOW NA DIET ENTERAL NUTRITION RECOMMENDATIONS: Consult RD if part of POC ADDITIONAL RECOMMENDATIONS: 1) Re-calibrate bed scale w/ added P200 mattress for accurate CBW 2) Monitor lytes, need for dietary restriction (ARF per MD) 3) Wound care: Ananda BID, MVI x1 daily (nephrovite per MD?) + Vit C/ dosing per Renal MD 4) Continue Glucerna TID/ monitor lytes, need for Nepro 5) Consider Kcal count w/ fair po intake 6) snacks in b/w all meals
--- NOTE | 2019-04-06 13:26 | Pre-Procedure Note/Attestation ---
Pre-Procedure Note/Attestation Complete Prior to Procedure Planned Procedure: not applicable Procedure Narrative: Inferior vena cava filter Indications for Procedure Pre-Operative Diagnosis: Bilat DVT, anemia and other contraindications to anticoagulation Attestation I attest that I discussed the nature of the procedure; its benefits; risks and complications; and alternatives (and the risks and benefits of such alternatives ), prior to the procedure, with the patient (or the patient's legal transportation services representative). I attest that, if there was a reasonable possibility of needing a blood transfusion, the patient (or the patient's legal transportation services representative) was given the [facility] standardized written summary, pursuant to the [place] Blood Safety Act ([place] Health and Safety Code # 1645, as amended). I attest that I re-evaluated the patient just prior to the surgery and that there has been no change in the patient's H&P, except as documented below: Grant Arroyo MD Apr 06, 2019 13:26
[2019-04-06] MEDS ORDERED: Minoxidil 2.5mg tab ORAL PRN (14:00)
[2019-04-06] MEDS ORDERED: Morphine Sulfate 2mg/ml Inj(IV/IM USE ONLY) IVP PRN (14:00)
--- NOTE | 2019-04-06 15:07 | Nephrology Progress Note ---
Assessment/Plan Problem List: (1) ARF (acute renal failure) (2) Acute on chronic renal insufficiency (3) Diabetes (4) HTN (hypertension) (5) Bladder cancer (6) Invasive carcinoma of urinary bladder (7) Anemia Assessment Acute renal failure ? Superimposed CKD Bladder Mass / h/o Hematuria HTN DM Anemia, previous transfusions s/p Cystoscopy 12/28 Plan med-surg favor transfusion Hydrate richardson IV Iron K Supplement BP management, BP med adjustment Monitor lytes and renal parameters Kidney ESDRAS , no hydro per orders Previous Uro note: Tolerated bladder tumor resection well. Unfortunately greater part of the bladder is involved and essentially replaced all normal bladder with tumor. I can not resect all the tumors. Patient needs a radical cystectomy (removal of bladder) or radiation/chemotherapy at higher level of care. 1. recommend transfer to higher level of care for cystectomy 2. continue richardson, keep irrigation to maintain light pink urine. Multiple mass like lesions within the bladder. Further evaluation with cystoscopy is recommended to evaluate for possible neoplasm. Multiple parapelvic renal cysts Subjective ROS Limited/Unobtainable: No Constitutional: Reports: malaise, weakness Objective Objective Last 24 Hour Vital Signs Date Time Temp Pulse Resp B/P (MAP) Pulse Ox O2 Delivery O2 Flow Rate FiO2 04/06/19 10:57 95 Nasal Cannula 2.0 04/06/19 10:57 70 20 95 Nasal Cannula 2.0 28 04/06/19 09:24 70 117/55 04/06/19 08:17 Nasal Cannula 2.0 04/06/19 05:16 117/55 04/06/19 04:00 70 04/06/19 04:00 97.6 68 20 117/55 (75) 98 04/06/19 00:00 70 04/06/19 00:00 98.0 71 18 140/60 (86) 99 04/05/19 22:47 127/63 04/05/19 21:01 79 137/64 04/05/19 21:00 Room Air 04/05/19 20:11 94 Nasal Cannula 2.0 28 04/05/19 20:08 74 20 94 Nasal Cannula 2.0 28 04/05/19 20:00 67 04/05/19 20:00 98.4 79 18 137/64 (88) 100 04/05/19 16:00 76 04/05/19 16:00 97.3 79 20 150/74 (99) 100 Intake and Output 04/05/19 04/06/19 19:00 07:00 Intake Total 195 ml 720 ml Output Total 1100 ml 1350 ml Balance -905 ml -630 ml Intake Oral 195 ml 720 ml Output Urine Total 1100 ml 1350 ml # Bowel Movements 1 3 Laboratory Tests 04/06/19 06:30: White Blood Count 4.1L, Red Blood Count 3.63L, Hemoglobin 10.3L, Hematocrit 33.0L, Mean Corpuscular Volume 91, Mean Corpuscular Hemoglobin 28.3, Mean Corpuscular Hemoglobin Concent 31.2L, Red Cell Distribution Width 18.1H, Platelet Count 95L, Mean Platelet Volume 8.4, Neutrophils (%) (Auto) , Lymphocytes (%) (Auto) , Monocytes (%) (Auto) , Eosinophils (%) (Auto) , Basophils (%) (Auto) , Differential Total Cells Counted 100, Neutrophils % ( Manual) 72, Lymphocytes % (Manual) 22, Monocytes % (Manual) 6, Eosinophils % ( Manual) 0, Basophils % (Manual) 0, Band Neutrophils 0, Platelet Estimate DecreasedL, Platelet Morphology Normal, Hypochromasia 1+, Anisocytosis 1+, Sodium Level 147H, Potassium Level 3.4L, Chloride Level 116H, Carbon Dioxide Level 24, Anion Gap 7, Blood Urea Nitrogen 38H, Creatinine 1.7H, Estimat Glomerular Filtration Rate , Glucose Level 162H, Calcium Level 7.2L 04/06/19 08:10: Random Vancomycin Level 13.1 Height (Feet): 5 Height (Inches): 9.00 Weight (Pounds): 174 General Appearance: no apparent distress Respiratory/Chest: decreased breath sounds Abdomen: distended Russell Sofia MD Apr 06, 2019 15:07
--- NOTE | 2019-04-06 15:12 | Surgery Progress Note ---
Surgery Progress Note Subjective Symptoms: improved, tolerating diet, voiding well, passing flatus Additional Comments no complaints states he didnt get his water but got flavored thick juice he didn't like no pain no n/v/fc labs noted exam completed Objective Last 24 Hour Vital Signs Date Time Temp Pulse Resp B/P (MAP) Pulse Ox O2 Delivery O2 Flow Rate FiO2 04/06/19 14:00 117/55 04/06/19 10:57 95 Nasal Cannula 2.0 28 04/06/19 10:57 70 20 95 Nasal Cannula 2.0 28 04/06/19 09:24 70 117/55 04/06/19 08:17 Nasal Cannula 2.0 04/06/19 05:16 117/55 04/06/19 04:00 70 04/06/19 04:00 97.6 68 20 117/55 (75) 98 04/06/19 00:00 70 04/06/19 00:00 98.0 71 18 140/60 (86) 99 04/05/19 22:47 127/63 04/05/19 21:01 79 137/64 04/05/19 21:00 Room Air 04/05/19 20:11 94 Nasal Cannula 2.0 28 04/05/19 20:08 74 20 94 Nasal Cannula 2.0 28 04/05/19 20:00 67 04/05/19 20:00 98.4 79 18 137/64 (88) 100 04/05/19 16:00 76 04/05/19 16:00 97.3 79 20 150/74 (99) 100 I&O Intake and Output 04/05/19 04/06/19 19:00 07:00 Intake Total 195 ml 720 ml Output Total 1100 ml 1350 ml Balance -905 ml -630 ml Intake Oral 195 ml 720 ml Output Urine Total 1100 ml 1350 ml # Bowel Movements 1 3 Dressing: saturated Wound: clean Cardiovascular: RSR Respiratory: clear Abdomen: soft, flat, non-tender, present bowel sounds Extremities: no edema, no tenderness, no cyanosis, other Laboratory Tests Test 04/06/19 06:30 04/06/19 08:10 White Blood Count 4.1 K/UL (4.8-10.8) L Red Blood Count 3.63 M/UL (4.70-6.10) L Hemoglobin 10.3 G/DL (14.2-18.0) L Hematocrit 33.0 % (42.0-52.0) L Mean Corpuscular Volume 91 FL (80-99) Mean Corpuscular Hemoglobin 28.3 PG (27.0-31.0) Mean Corpuscular Hemoglobin Concent 31.2 G/DL (32.0-36.0) L Red Cell Distribution Width 18.1 % (11.6-14.8) H Platelet Count 95 K/UL (150-450) L Mean Platelet Volume 8.4 FL (6.5-10.1) Neutrophils (%) (Auto) % (45.0-75.0) Lymphocytes (%) (Auto) % (20.0-45.0) Monocytes (%) (Auto) % (1.0-10.0) Eosinophils (%) (Auto) % (0.0-3.0) Basophils (%) (Auto) % (0.0-2.0) Differential Total Cells Counted 100 Neutrophils % (Manual) 72 % (45-75) Lymphocytes % (Manual) 22 % (20-45) Monocytes % (Manual) 6 % (1-10) Eosinophils % (Manual) 0 % (0-3) Basophils % (Manual) 0 % (0-2) Band Neutrophils 0 % (0-8) Platelet Estimate Decreased L Platelet Morphology Normal Hypochromasia 1+ Anisocytosis 1+ Sodium Level 147 MMOL/L (136-145) H Potassium Level 3.4 MMOL/L (3.5-5.1) L Chloride Level 116 MMOL/L (98-107) H Carbon Dioxide Level 24 MMOL/L (21-32) Anion Gap 7 mmol/L (5-15) Blood Urea Nitrogen 38 mg/dL (7-18) H Creatinine 1.7 MG/DL (0.55-1.30) H Estimat Glomerular Filtration Rate mL/min (>60) Glucose Level 162 MG/DL (74-106) H Calcium Level 7.2 MG/DL (8.5-10.1) L Random Vancomycin Level 13.1 ug/mL Plan Problems: (1) Scrotal lesion Assessment & Plan: This is a 83-year-old male with multiple medical morbidities who was identified to have abnormal scrotal lesions on admission. There are 3 lesions on the scrotum clearly identified and likely old small abscesses or carbuncles which have healed slowly. Patient is incontinent With leakage of stool identified around the scrotal sac on the posterior aspect where the lesions are located. No signs of active infection no active drainage nontender skin macerated Recommend washing the scrotum daily with normal saline. Apply skin protectant and moisture absorbent dressing daily and as needed saturation We will follow and monitor for healing (2) Sacral decubitus ulcer, stage III Assessment & Plan: Pt presented on admission with multiple pressure injuries. Full thickness sacral pressure injury. Base of wound is viable with an area that is purple in center. Semi-detached black borders(L)9.5cm x (W)4.9cm x(D) 0.2cm .Non-blanching erythema periwound. Multiple pressure injuries Scrotum. Base of pressure injury R scrotum 75% pink granulation,25% slough. Edges pink,flat and adherent to base of wound.(L)2.2cm x (W)0.9cm.Ful thickness pressure injury center -base of scrotum (L)0.5cm x (W) 0.4cm. Base of wound has 100% slough. Full thickness pressure injury L scrotum ( L)2cm x (W01.1cm. Base of wound has 90% slough ,10% viable. Reabsorbing blood blister R heel heel. Base of wound black (L)2.2cm x (W)2cm with red tinged borders with fluctuance. (L)5.5cm x(W)5cm. Reabsorbing Blood Blister L heel. Base of wound is black ,dry with maroon and fluctuant borders.(L)6.5cm x (W)6cm Abd folds are moist and dark but is intact. Tx.Plan: Cleanse Sacral wound with Saline. Apply Therahoney. Apply Moisture Barrier Paste periwound. Cover with Optifoam drsg Daily and prn. Cleanse wounds on Scrotum with saline. Apply Therhaoney to each wound. Cover with Optifoam drsg. Change Daily and prn. Apply Moisture Barrier to Abd folds and Bilat groin Daily and prn. APM/NOLBERTO Mattress overlay. Reposition at least every 2hours or as tolerated. Off-load heels with pillow. (3) Bladder cancer (4) C. difficile colitis Assessment & Plan: blood cultures negative C diff positive - discussed with ID cont abx labs noted exam stable cont current tx Bebeto Pepe Apr 06, 2019 15:12
--- NOTE | 2019-04-06 15:45 | NUR ---
NURSE NOTES: Pt cleaned from large mucus/jelly like BM and then taken down to Rad. for IVC filter. Report given to MATT Arguello. Bed cleaned with bleach, new sheet installed. IV pump/pole cleaned with bleach and moved to room 418-2.
--- NOTE | 2019-04-06 16:50 | Brief Operative Note ---
Immediate Post Operative Note Operative Note Pre-op Diagnosis: Bilat DVT, anemia and other contraindications to anticoagulation Procedure: IVC filter Post-op Diagnosis: same as pre-op Surgeon: Blanca Kirk Anesthesia: local Specimen: none Complications: none Fluids: none Implant(s) used?: Yes - Vena tech permanent IVC filter Grant Kirk MD Apr 06, 2019 16:50
--- NOTE | 2019-04-06 17:18 | Diagnostic Imaging Report ---
Indications: Deep venous thrombosis, contraindication to anticoagulation Technique: Case discussed with Dr. Mcallister, who indicated reference for a permanent IVC filter. Informed consent obtained prior to commencement of the procedure by phone from the patient's . Prior CT scan reviewed, and demonstrates no caval anomalies . Total sterile technique, including sterile probe cover and sterile gel, sterile gloves, hand hygiene, hat, mask,, sterile gown, large sterile drape, and preparation with 2% chlorhexidine utilized. Local anesthesia with 1% lidocaine. Ultrasound reveals patent compressible Right internal jugular vein. Under real-time ultrasound guidance, puncture right internal jugular vein, passage of a guidewire, into the inferior vena cava, , over which was passed a pigtail catheter. This was used to perform an inferior venacavogram using hand injection of contrast (and ejection contrast utilized due to power injector malfunction. The images were reviewed. The position of the renal veins was determined, predominantly from prior CT scan and bony landmarks. The catheter was then exchanged for the introducer assembly of the Venatech permanent filter. The introducer assembly was advanced further into the inferior vena cava over a guidewire, and the guidewire and dilator were removed. The filter was passed into the into the sheath. It was then positioned into the appropriate position. The filter was then deployed by unsheathing it. The filter introducer was removed, and a followup inferior venacavogram was performed using hand injection of contrast through the sheath. The filter position was deemed acceptable. The sheath was removed. Pressure held on the right neck until hemostasis was achieved. The patient tolerated procedure well, without immediate complication. Total fluoroscopy time 143 seconds Total dose area product 82 Milligray Comparison: none. Findings: Inferior venacavogram demonstrates normal caliber inferior vena cava. Single renal veins. No intracaval thrombus. Completion inferior venacavogram demonstrates satisfactory filter position, with no significant tilt. Impression: Successful placement of permanent infrarenal inferior vena cava filter, as above.
--- NOTE | 2019-04-06 19:30 | NUR ---
HAND-OFF: Report given to Mary.
--- NOTE | 2019-04-06 19:30 | NUR ---
NURSE NOTES: RECEIVED PATIENT LYING IN BED, AWAKE, VERBALLY RESPONSIVE, CONFUSED, REALITY ORIENTATION PROVIDED DURING ASSESSMENT. NO SIGNS AND SYMPTOMS OF ACUTE CARDIO RESPIRATORY DISTRESS/SHORTNESS OF BREATH, DENIES CHEST PAIN, SP02 ON 2L 97%. ABDOMEN SOFT, NON DISTENDED, BOWEL SOUNDS AUDIBLE, NO REPORT OF NAUSEA/VOMITING, INCONTINENT OF LOOSE STOOL, CARE PROVIDED, REPOSITIONED FOR COMFORT/PRESSURE RELIEF, TOLERATED WELL, P200 MATTRESS FOR WOUND MANAGEMENT. SIDE RAILS UP X3/BED IN LOWEST POSITION FOR SAFETY. CALL LIGHT WITHIN REACH, FREQUENT ROUNDING FOR SAFETY/NEEDS. CONTINUE WITH CURRENT PLAN OF CARE. NAD.
[2019-04-07] VITALS: BP 124/50
[2019-04-07 04:00] VITALS: BP 121/50
--- NOTE | 2019-04-07 05:30 | NUR ---
HAND-OFF: Report given to MATT HUNT.
[2019-04-07] MEDS: HydrALAZINE 50mg tab ORAL SCH ×3 (06:00→23:14)
[2019-04-07] MEDS: NovoLOG Insulin Flexpen SUBQ SCH ×4 (06:32→22:21)
--- NOTE | 2019-04-07 06:38 | General Progress Note ---
Assessment/Plan Status: unchanged Assessment/Plan: GI: Plan Problems: (1) Dehydration (2) Electrolyte imbalance (3) C. difficile colitis (4) Anemia Plan fecal occult blood stool positive C. difficile positive Recommend EGD and colonoscopy at some point to evaluate possible GI bleed, will hold at this time given active C. difficile colitis. Antibiotics per infectious diseases off PPI IV and p.o. hydration plus electrolyte correction poor po intake Monitor H&H, PRN transfusions po vanco for C.diff off all laxatives We will follow with additional recommendations on a daily basis ensure s/p IVC filter placement Subjective Allergies: Coded Allergies: No Known Allergies (Unverified , 12/20/18) Objective Last 24 Hour Vital Signs Date Time Temp Pulse Resp B/P (MAP) Pulse Ox O2 Delivery O2 Flow Rate FiO2 04/07/19 06:00 111/56 04/07/19 04:00 98.6 66 17 121/50 (73) 98 04/07/19 00:00 99.5 69 17 124/50 (74) 98 04/06/19 22:00 111/57 04/06/19 21:18 Nasal Cannula 2.0 04/06/19 21:10 77 128/66 04/06/19 20:00 97.7 80 18 137/68 (91) 97 04/06/19 19:46 95 Nasal Cannula 2.0 28 04/06/19 16:00 99.0 82 20 137/62 (87) 100 04/06/19 15:47 79 24 2.0 04/06/19 14:00 117/55 04/06/19 12:00 96.7 69 20 141/61 (87) 96 04/06/19 10:57 95 Nasal Cannula 2.0 28 04/06/19 10:57 70 20 95 Nasal Cannula 2.0 28 04/06/19 09:24 70 117/55 04/06/19 08:17 Nasal Cannula 2.0 04/06/19 08:00 96.6 67 19 138/61 (86) 97 Intake and Output 04/06/19 04/07/19 18:59 06:59 Intake Total 120 ml 825 ml Output Total 600 ml Balance -480 ml 825 ml Intake Oral 120 ml 300 ml IV Total 525 ml Output Urine Total 600 ml # Bowel Movements 1 2 Laboratory Tests 04/06/19 08:10: Random Vancomycin Level 13.1 Height (Feet): 5 Height (Inches): 9.00 Weight (Pounds): 174 General Appearance: alert EENT: normal ENT inspection Neck: supple Cardiovascular: normal rate Respiratory/Chest: decreased breath sounds Abdomen: normal bowel sounds, non tender, soft Extremities: non-tender Terell Valiente MD Apr 07, 2019 06:38
--- NOTE | 2019-04-07 06:50 | NUR ---
HAND-OFF: Report given to MATT Arguello.
--- NOTE | 2019-04-07 07:00 | NUR ---
NURSE NOTES: Received patient in bed asleep. No SOB or acute distress. FC intact and patent draining yellow colored urine. Wound dressing intact. HOB elevated. Bed locked in lowest position. Call light within reach. Will continue plan of care.
[2019-04-07 08:00] VITALS: BP 135/98
[2019-04-07] MEDS: Heparin 5000 units/ml inj SUBQ SCH ×2 (09:00→21:00)
--- NOTE | 2019-04-07 09:33 | General Progress Note ---
Assessment/Plan Problem List: (1) Invasive carcinoma of urinary bladder ICD Codes: C67.9 - Malignant neoplasm of bladder, unspecified SNOMED: 673173840 (2) Anemia ICD Codes: D64.9 - Anemia, unspecified SNOMED: 255308910 (3) Diabetes ICD Codes: E11.9 - Type 2 diabetes mellitus without complications SNOMED: 89980739 (4) HTN (hypertension) ICD Codes: I10 - Essential (primary) hypertension SNOMED: 59612764 (5) Urinary tract infection ICD Codes: N39.0 - Urinary tract infection, site not specified SNOMED: 13484038 (6) Bladder cancer ICD Codes: C67.9 - Malignant neoplasm of bladder, unspecified SNOMED: 751375335 Status: unchanged Assessment/Plan: pt diet eval 02 pulm tx abx uro f/u cbc bmp am promise ltach eval Subjective Constitutional: Reports: weakness Allergies: Coded Allergies: No Known Allergies (Unverified , 12/20/18) All Systems: reviewed and negative except above Subjective o2nc sleepy calm Objective Last 24 Hour Vital Signs Date Time Temp Pulse Resp B/P (MAP) Pulse Ox O2 Delivery O2 Flow Rate FiO2 04/07/19 08:00 98.1 80 22 135/98 (110) 99 04/07/19 07:51 96 Nasal Cannula 2.0 28 04/07/19 06:00 111/56 04/07/19 04:00 98.6 66 17 121/50 (73) 98 04/07/19 00:00 99.5 69 17 124/50 (74) 98 04/06/19 22:00 111/57 04/06/19 21:18 Nasal Cannula 2.0 04/06/19 21:10 77 128/66 04/06/19 20:00 97.7 80 18 137/68 (91) 97 04/06/19 19:46 95 Nasal Cannula 2.0 28 04/06/19 16:00 99.0 82 20 137/62 (87) 100 04/06/19 15:47 79 24 2.0 04/06/19 14:00 117/55 04/06/19 12:00 96.7 69 20 141/61 (87) 96 04/06/19 10:57 95 Nasal Cannula 2.0 28 04/06/19 10:57 70 20 95 Nasal Cannula 2.0 28 Intake and Output 04/06/19 04/07/19 19:00 07:00 Intake Total 825 ml Output Total 600 ml Balance -600 ml 825 ml Intake Oral 300 ml IV Total 525 ml Output Urine Total 600 ml # Bowel Movements 1 2 Height (Feet): 5 Height (Inches): 9.00 Weight (Pounds): 174 General Appearance: lethargic EENT: normal ENT inspection Neck: normal alignment Cardiovascular: normal peripheral pulses, normal rate, regular rhythm Respiratory/Chest: chest wall non-tender, lungs clear, normal breath sounds Abdomen: normal bowel sounds, non tender, soft Extremities: normal inspection Edema: no edema noted Arm (L), no edema noted Arm (R), no edema noted Leg (L), no edema noted Leg (R), no edema noted Pedal (L), no edema noted Pedal (R), no edema noted Generalized Neurologic: motor weakness Skin: normal pigmentation, warm/dry Jamie Gray DO Apr 07, 2019 09:33
[2019-04-07] MEDS: Carvedilol 12.5mg tab ORAL SCH ×2 (09:35→22:06)
[2019-04-07] MEDS: Tamsulosin 0.4mg cap ORAL SCH ×2 (09:35→18:00)
[2019-04-07] MEDS: Vancomycin oral 125mg/2.5ml ORAL SCH ×4 (09:45→22:06)
[2019-04-07 10:46] LABS: HEMATOCRIT 32.2 % (42.0-52.0); MEAN CORPUSCULAR VOLUME 90 FL (80-99); PLATELET COUNT 89 K/UL (150-450); RED BLOOD COUNT 3.56 M/UL (4.70-6.10); RED CELL DISTRIBUTION WIDTH 18.2 % (11.6-14.8)
[2019-04-07 10:52] LABS: ANION GAP 9 mmol/L (5-15); BLOOD UREA NITROGEN 33 mg/dL (7-18); CALCIUM 7.4 MG/DL (8.5-10.1); CARBON DIOXIDE 23 MMOL/L (21-32); CHLORIDE 113 MMOL/L (98-107); CREATININE 1.7 MG/DL (0.55-1.30); POTASSIUM 3.1 MMOL/L (3.5-5.1); SODIUM 145 MMOL/L (136-145)
[2019-04-07 12:00] VITALS: BP 110/59
[2019-04-07] MEDS ORDERED: Cefepime HCl 1 GM in D5W 55 ML IVPB SCH (12:00)
[2019-04-07] MEDS ORDERED: Vancomycin 1 GM in D5W 275 ML IVPB ONE (12:00)
--- NOTE | 2019-04-07 13:53 | Pulmonology Progress Note ---
Assessment/Plan Problems: (1) C. difficile colitis (2) Acute respiratory failure with hypoxemia (3) Acute deep vein thrombosis (DVT) of both femoral veins (4) Thrombocytopenia (5) Invasive carcinoma of urinary bladder (6) CAD (coronary artery disease) (7) Anemia (8) Diabetes (9) HTN (hypertension) (10) Bladder cancer Assessment/Plan renal function improving V/q scan showed low probability PE venous studies of legs showed acute DVT bilaterally IVC filter done yesterday respiratory treatment check electrolytes titrate fiio2 to sat of 92% dvt prophylaxis. renal function improving Subjective ROS Limited/Unobtainable: No Constitutional: Reports: no symptoms HEENT: Repors: no symptoms Respiratory: Reports: no symptoms Allergies: Coded Allergies: No Known Allergies (Unverified , 12/20/18) Objective Last 24 Hour Vital Signs Date Time Temp Pulse Resp B/P (MAP) Pulse Ox O2 Delivery O2 Flow Rate FiO2 04/07/19 13:37 110/59 04/07/19 09:35 80 135/98 04/07/19 08:00 98.1 80 22 135/98 (110) 99 04/07/19 07:51 96 Nasal Cannula 2.0 28 04/07/19 06:00 111/56 04/07/19 04:00 98.6 66 17 121/50 (73) 98 04/07/19 00:00 99.5 69 17 124/50 (74) 98 04/06/19 22:00 111/57 04/06/19 21:18 Nasal Cannula 2.0 04/06/19 21:10 77 128/66 04/06/19 20:00 97.7 80 18 137/68 (91) 97 04/06/19 19:46 95 Nasal Cannula 2.0 28 04/06/19 16:00 99.0 82 20 137/62 (87) 100 04/06/19 15:47 79 24 2.0 04/06/19 14:00 117/55 Intake and Output 04/06/19 04/07/19 19:00 07:00 Intake Total 825 ml Output Total 600 ml Balance -600 ml 825 ml Intake Oral 300 ml IV Total 525 ml Output Urine Total 600 ml # Bowel Movements 1 2 Objective HEENT: normocephalic, atraumatic Respiratory/Chest: chest wall non-tender, normal breath sounds Cardiovascular: normal rate, regular rhythm Abdomen: normal bowel sounds, soft, non tender Genitourinary: normal external genitalia Extremities: no cyanosis Skin: no rash, no lesions Laboratory Tests 04/07/19 10:30: White Blood Count 5.0, Red Blood Count 3.56L, Hemoglobin 10.0L, Hematocrit 32.2L , Mean Corpuscular Volume 90, Mean Corpuscular Hemoglobin 28.1, Mean Corpuscular Hemoglobin Concent 31.1L, Red Cell Distribution Width 18.2H, Platelet Count 89L, Mean Platelet Volume 8.0, Neutrophils (%) (Auto) , Lymphocytes (%) (Auto) , Monocytes (%) (Auto) , Eosinophils (%) (Auto) , Basophils (%) (Auto) , Differential Total Cells Counted 100, Neutrophils % ( Manual) 66, Lymphocytes % (Manual) 17L, Monocytes % (Manual) 15H, Eosinophils % (Manual) 1, Basophils % (Manual) 1, Band Neutrophils 0, Platelet Estimate DecreasedL, Platelet Morphology Normal, Hypochromasia 1+, Anisocytosis 2+, Sodium Level 145, Potassium Level 3.1L, Chloride Level 113H, Carbon Dioxide Level 23, Anion Gap 9, Blood Urea Nitrogen 33H, Creatinine 1.7H, Estimat Glomerular Filtration Rate , Glucose Level 194H, Calcium Level 7.4L Current Medications Medications (Trade) Dose Ordered Sig/Sallie Route PRN Reason Start Time Stop Time Status Last Admin Dose Admin Acetaminophen (Tylenol) 650 mg Q4H PRN ORAL fever 04/06/19 14:00 05/01/19 13:59 Allopurinol (Allopurinol) 300 mg DAILY ORAL 04/07/19 09:00 05/03/19 09:59 04/07/19 09:35 Carvedilol (Coreg) 12.5 mg EVERY 12 HOURS ORAL 04/06/19 21:00 05/01/19 08:59 04/07/19 09:35 Cefepime HCl 1 gm/ Dextrose 55 ml @ 110 mls/hr Q24H IVPB 04/07/19 12:00 04/08/19 11:59 Dextrose (Dextrose 50%) 25 ml Q30M PRN IV Hypoglycemia 04/06/19 14:00 05/01/19 10:29 Dextrose (Dextrose 50%) 50 ml Q30M PRN IV Hypoglycemia 04/06/19 14:00 05/01/19 10:29 Dextrose/ Electrolytes 1,000 ml @ 75 mls/hr [id number] IV 04/06/19 13:30 05/04/19 09:59 04/06/19 21:43 Heparin Sodium (Porcine) (Heparin 5000 units/ml) 5,000 units EVERY 12 HOURS SUBQ 04/06/19 21:00 05/01/19 08:59 Hydralazine HCl (Apresoline) 50 mg Q8HR ORAL 04/06/19 14:00 05/01/19 13:59 Insulin Aspart (NovoLOG) BEFORE MEALS AND HS SUBQ 04/06/19 16:30 05/01/19 11:29 04/07/19 06:32 Minoxidil (Loniten) 2.5 mg Q4H PRN ORAL bp over 165 syst 04/06/19 14:00 05/01/19 13:59 Morphine Sulfate (Morphine Sulfate) 2 mg Q4H PRN IVP Moderate Pain (Pain Scale 4-6) 04/06/19 14:00 04/08/19 13:59 Ondansetron HCl (Zofran) 4 mg Q6H PRN IVP Nausea & Vomiting 04/06/19 14:00 05/01/19 07:59 Potassium Chloride 100 ml @ 100 mls/hr Q1HR IVPB 04/07/19 14:00 04/07/19 17:59 Potassium Chloride (K-Dur) 40 meq TID ORAL 04/06/19 18:00 05/01/19 12:59 04/07/19 13:35 Quetiapine Fumarate (SEROqueL) 50 mg TWICE A DAY ORAL 04/06/19 18:00 05/03/19 17:59 04/07/19 09:34 Tamsulosin HCl (Flomax) 0.4 mg BID ORAL 04/06/19 18:00 05/01/19 12:59 04/07/19 09:35 Temazepam (Restoril) 15 mg HSPRN PRN ORAL Insomnia 04/06/19 14:00 04/13/19 13:59 Vancomycin HCl (Firvanq) 125 mg FOUR TIMES A DAY ORAL 04/06/19 18:00 04/11/19 12:59 04/07/19 13:35 Vancomycin HCl (Vanco rx to dose) 1 ea DAILY PRN MISC Per rx protocol 04/07/19 09:00 05/01/19 08:14 Adam Moyer MD Apr 07, 2019 13:53
--- NOTE | 2019-04-07 15:04 | Nephrology Progress Note ---
Assessment/Plan Problem List: (1) ARF (acute renal failure) (2) Acute on chronic renal insufficiency (3) Diabetes (4) HTN (hypertension) (5) Bladder cancer (6) Invasive carcinoma of urinary bladder (7) Anemia Assessment Acute renal failure ? Superimposed CKD Bladder Mass / h/o Hematuria HTN DM Anemia, previous transfusions s/p Cystoscopy 12/28 Plan hardly takes PO meds med-surg favor transfusion Hydrate richardson IV Iron K Supplement BP management, BP med adjustment Monitor lytes and renal parameters Kidney ESDRAS , no hydro per orders Previous Uro note: Tolerated bladder tumor resection well. Unfortunately greater part of the bladder is involved and essentially replaced all normal bladder with tumor. I can not resect all the tumors. Patient needs a radical cystectomy (removal of bladder) or radiation/chemotherapy at higher level of care. 1. recommend transfer to higher level of care for cystectomy 2. continue richardson, keep irrigation to maintain light pink urine. Multiple mass like lesions within the bladder. Further evaluation with cystoscopy is recommended to evaluate for possible neoplasm. Multiple parapelvic renal cysts Subjective ROS Limited/Unobtainable: No Constitutional: Reports: malaise Objective Objective Last 24 Hour Vital Signs Date Time Temp Pulse Resp B/P (MAP) Pulse Ox O2 Delivery O2 Flow Rate FiO2 04/07/19 13:37 110/59 04/07/19 09:35 80 135/98 04/07/19 08:00 98.1 80 22 135/98 (110) 99 04/07/19 07:51 96 Nasal Cannula 2.0 28 04/07/19 06:00 111/56 04/07/19 04:00 98.6 66 17 121/50 (73) 98 04/07/19 00:00 99.5 69 17 124/50 (74) 98 04/06/19 22:00 111/57 04/06/19 21:18 Nasal Cannula 2.0 04/06/19 21:10 77 128/66 04/06/19 20:00 97.7 80 18 137/68 (91) 97 04/06/19 19:46 95 Nasal Cannula 2.0 28 04/06/19 16:00 99.0 82 20 137/62 (87) 100 04/06/19 15:47 79 24 2.0 Intake and Output 04/06/19 04/07/19 19:00 07:00 Intake Total 825 ml Output Total 600 ml Balance -600 ml 825 ml Intake Oral 300 ml IV Total 525 ml Output Urine Total 600 ml # Bowel Movements 1 2 Laboratory Tests 04/07/19 10:30: White Blood Count 5.0, Red Blood Count 3.56L, Hemoglobin 10.0L, Hematocrit 32.2L , Mean Corpuscular Volume 90, Mean Corpuscular Hemoglobin 28.1, Mean Corpuscular Hemoglobin Concent 31.1L, Red Cell Distribution Width 18.2H, Platelet Count 89L, Mean Platelet Volume 8.0, Neutrophils (%) (Auto) , Lymphocytes (%) (Auto) , Monocytes (%) (Auto) , Eosinophils (%) (Auto) , Basophils (%) (Auto) , Differential Total Cells Counted 100, Neutrophils % ( Manual) 66, Lymphocytes % (Manual) 17L, Monocytes % (Manual) 15H, Eosinophils % (Manual) 1, Basophils % (Manual) 1, Band Neutrophils 0, Platelet Estimate DecreasedL, Platelet Morphology Normal, Hypochromasia 1+, Anisocytosis 2+, Sodium Level 145, Potassium Level 3.1L, Chloride Level 113H, Carbon Dioxide Level 23, Anion Gap 9, Blood Urea Nitrogen 33H, Creatinine 1.7H, Estimat Glomerular Filtration Rate , Glucose Level 194H, Calcium Level 7.4L Height (Feet): 5 Height (Inches): 9.00 Weight (Pounds): 174 General Appearance: no apparent distress Cardiovascular: normal rate Respiratory/Chest: decreased breath sounds Abdomen: distended Russell Sofia MD Apr 07, 2019 15:04
[2019-04-07 16:00] VITALS: BP 115/63
--- NOTE | 2019-04-07 16:00 | NUR ---
NURSE NOTES: Sacral wound photos taken yesterday around 6pm, ok not to take picture today anymore as per Charge nurse. Noted whitish discharge from left side of penis shaft, charge nurse informed, advised to inform Dr Wasserman when I see her.
[2019-04-07] MEDS: D5W w/KCl 20mEq 1,000 ML IV SCH ×2 (18:00→18:08)
--- NOTE | 2019-04-07 19:22 | Surgery Progress Note ---
Surgery Progress Note Subjective Additional Comments no acute events comfortable stable no complaints no n/v/f/c labs noted exam stable Objective Last 24 Hour Vital Signs Date Time Temp Pulse Resp B/P (MAP) Pulse Ox O2 Delivery O2 Flow Rate FiO2 04/07/19 13:37 110/59 04/07/19 12:00 98.4 72 20 110/59 (76) 97 04/07/19 09:35 80 135/98 04/07/19 08:00 98.1 80 22 135/98 (110) 99 04/07/19 07:51 96 Nasal Cannula 2.0 28 04/07/19 06:00 111/56 04/07/19 04:00 98.6 66 17 121/50 (73) 98 04/07/19 00:00 99.5 69 17 124/50 (74) 98 04/06/19 22:00 111/57 04/06/19 21:18 Nasal Cannula 2.0 04/06/19 21:10 77 128/66 04/06/19 20:00 97.7 80 18 137/68 (91) 97 04/06/19 19:46 95 Nasal Cannula 2.0 28 I&O Intake and Output 04/06/19 04/07/19 19:00 07:00 Intake Total 825 ml Output Total 600 ml Balance -600 ml 825 ml Intake Oral 300 ml IV Total 525 ml Output Urine Total 600 ml # Bowel Movements 1 2 Dressing: dry Wound: clean Cardiovascular: RSR Respiratory: clear Abdomen: soft, non-tender, present bowel sounds Extremities: no cyanosis, other Laboratory Tests Test 04/07/19 10:30 White Blood Count 5.0 K/UL (4.8-10.8) Red Blood Count 3.56 M/UL (4.70-6.10) L Hemoglobin 10.0 G/DL (14.2-18.0) L Hematocrit 32.2 % (42.0-52.0) L Mean Corpuscular Volume 90 FL (80-99) Mean Corpuscular Hemoglobin 28.1 PG (27.0-31.0) Mean Corpuscular Hemoglobin Concent 31.1 G/DL (32.0-36.0) L Red Cell Distribution Width 18.2 % (11.6-14.8) H Platelet Count 89 K/UL (150-450) L Mean Platelet Volume 8.0 FL (6.5-10.1) Neutrophils (%) (Auto) % (45.0-75.0) Lymphocytes (%) (Auto) % (20.0-45.0) Monocytes (%) (Auto) % (1.0-10.0) Eosinophils (%) (Auto) % (0.0-3.0) Basophils (%) (Auto) % (0.0-2.0) Differential Total Cells Counted 100 Neutrophils % (Manual) 66 % (45-75) Lymphocytes % (Manual) 17 % (20-45) L Monocytes % (Manual) 15 % (1-10) H Eosinophils % (Manual) 1 % (0-3) Basophils % (Manual) 1 % (0-2) Band Neutrophils 0 % (0-8) Platelet Estimate Decreased L Platelet Morphology Normal Hypochromasia 1+ Anisocytosis 2+ Sodium Level 145 MMOL/L (136-145) Potassium Level 3.1 MMOL/L (3.5-5.1) L Chloride Level 113 MMOL/L (98-107) H Carbon Dioxide Level 23 MMOL/L (21-32) Anion Gap 9 mmol/L (5-15) Blood Urea Nitrogen 33 mg/dL (7-18) H Creatinine 1.7 MG/DL (0.55-1.30) H Estimat Glomerular Filtration Rate mL/min (>60) Glucose Level 194 MG/DL (74-106) H Calcium Level 7.4 MG/DL (8.5-10.1) L Plan Problems: (1) Scrotal lesion Assessment & Plan: This is a 83-year-old male with multiple medical morbidities who was identified to have abnormal scrotal lesions on admission. There are 3 lesions on the scrotum clearly identified and likely old small abscesses or carbuncles which have healed slowly. Patient is incontinent With leakage of stool identified around the scrotal sac on the posterior aspect where the lesions are located. No signs of active infection no active drainage nontender skin macerated Recommend washing the scrotum daily with normal saline. Apply skin protectant and moisture absorbent dressing daily and as needed saturation We will follow and monitor for healing (2) Sacral decubitus ulcer, stage III Assessment & Plan: Pt presented on admission with multiple pressure injuries. Full thickness sacral pressure injury. Base of wound is viable with an area that is purple in center. Semi-detached black borders(L)9.5cm x (W)4.9cm x(D) 0.2cm .Non-blanching erythema periwound. Multiple pressure injuries Scrotum. Base of pressure injury R scrotum 75% pink granulation,25% slough. Edges pink,flat and adherent to base of wound.(L)2.2cm x (W)0.9cm.Ful thickness pressure injury center -base of scrotum (L)0.5cm x (W) 0.4cm. Base of wound has 100% slough. Full thickness pressure injury L scrotum ( L)2cm x (W01.1cm. Base of wound has 90% slough ,10% viable. Reabsorbing blood blister R heel heel. Base of wound black (L)2.2cm x (W)2cm with red tinged borders with fluctuance. (L)5.5cm x(W)5cm. Reabsorbing Blood Blister L heel. Base of wound is black ,dry with maroon and fluctuant borders.(L)6.5cm x (W)6cm Abd folds are moist and dark but is intact. Tx.Plan: Cleanse Sacral wound with Saline. Apply Therahoney. Apply Moisture Barrier Paste periwound. Cover with Optifoam drsg Daily and prn. Cleanse wounds on Scrotum with saline. Apply Therhaoney to each wound. Cover with Optifoam drsg. Change Daily and prn. Apply Moisture Barrier to Abd folds and Bilat groin Daily and prn. APM/NOLBERTO Mattress overlay. Reposition at least every 2hours or as tolerated. Off-load heels with pillow. (3) Bladder cancer (4) C. difficile colitis Assessment & Plan: blood cultures negative C diff positive - discussed with ID cont abx labs noted and improved exam stable cont current tx Bebeto Pepe Apr 07, 2019 19:22
--- NOTE | 2019-04-07 19:39 | NUR ---
HAND-OFF: Report given to Minsu.
--- NOTE | 2019-04-07 19:40 | NUR ---
NURSE NOTES: Received report from MATT Arguello. Patient a/a/o x 1, breathing unlabored on 2L O2 via nasal cannula. Bed placed at the lowest with alarm, brake, and siderails up for safety. Call light placed within reach. Will continue to monitor and provide care as ordered.
[2019-04-07 20:00] VITALS: BP 138/71
--- NOTE | 2019-04-07 22:00 | NUR ---
NURSE NOTES: Previous IV site was occluded and swollen. Removed IV during the rounding. Placed new 24g IV on the left hand for ordered maintenance fluid with electrolyte. Patient explained prior and during the process. Patient tolerated the procedure well. Will continue to monitor and provide care as ordered.
[2019-04-08] VITALS: BP 156/59
--- NOTE | 2019-04-08 00:36 | NUR ---
NURSE NOTES: Oconnor cath intact draining urine. BM x1, brown mucous like stool. Cleaned and changed linen & gown. Dressing changed performed as ordered. Patient tolerated the procedure well. Picture taken. Will continue to monitor and provide care as ordered.
--- NOTE | 2019-04-08 05:29 | NUR ---
NURSE NOTES: BM x 1, brown mucous like stool. Cleaned and performed dressing change. Patient tolerated the procedure well. Will continue to monitor and provide care.
[2019-04-08] MEDS: HydrALAZINE 50mg tab ORAL SCH ×3 (05:48→21:26)
[2019-04-08] MEDS: NovoLOG Insulin Flexpen SUBQ SCH ×4 (05:53→21:24)
[2019-04-08] MEDS: D5W w/KCl 20mEq 1,000 ML IV SCH (06:13)
[2019-04-08 07:15] LABS: BASOPHILS % (AUTO) 0.7 % (0.0-2.0); EOSINOPHILS % (AUTO) 1.3 % (0.0-3.0); HEMATOCRIT 31.5 % (42.0-52.0); LYMPHOCYTES % (AUTO) 14.8 % (20.0-45.0); MEAN CORPUSCULAR VOLUME 90 FL (80-99); MONOCYTES % (AUTO) 12.3 % (1.0-10.0); NEUTROPHILS % (AUTO) 70.9 % (45.0-75.0); PLATELET COUNT 117 K/UL (150-450); RED CELL DISTRIBUTION WIDTH 18.1 % (11.6-14.8); WHITE BLOOD COUNT 4.7 K/UL (4.8-10.8)
--- NOTE | 2019-04-08 07:50 | NUR ---
HAND-OFF: Report given to MATT Denney.
[2019-04-08 07:56] LABS: ANION GAP 5 mmol/L (5-15); BLOOD UREA NITROGEN 30 mg/dL (7-18); CALCIUM 7.2 MG/DL (8.5-10.1); CARBON DIOXIDE 22 MMOL/L (21-32); CHLORIDE 112 MMOL/L (98-107); CREATININE 1.8 MG/DL (0.55-1.30); POTASSIUM 3.3 MMOL/L (3.5-5.1); SODIUM 139 MMOL/L (136-145)
--- NOTE | 2019-04-08 08:07 | General Progress Note ---
Assessment/Plan Problem List: (1) Invasive carcinoma of urinary bladder ICD Codes: C67.9 - Malignant neoplasm of bladder, unspecified SNOMED: 829662191 (2) Anemia ICD Codes: D64.9 - Anemia, unspecified SNOMED: 529445889 (3) Diabetes ICD Codes: E11.9 - Type 2 diabetes mellitus without complications SNOMED: 11498708 (4) HTN (hypertension) ICD Codes: I10 - Essential (primary) hypertension SNOMED: 38441266 (5) Urinary tract infection ICD Codes: N39.0 - Urinary tract infection, site not specified SNOMED: 28335202 (6) Bladder cancer ICD Codes: C67.9 - Malignant neoplasm of bladder, unspecified SNOMED: 509877177 Status: unchanged Assessment/Plan: pt diet eval 02 pulm tx abx uro f/u cbc bmp am promise ltach eval Subjective Constitutional: Reports: weakness Allergies: Coded Allergies: No Known Allergies (Unverified , 12/20/18) All Systems: reviewed and negative except above Subjective o2nc sleepy calm Objective Last 24 Hour Vital Signs Date Time Temp Pulse Resp B/P (MAP) Pulse Ox O2 Delivery O2 Flow Rate FiO2 04/08/19 05:48 150/88 04/08/19 00:00 98.2 73 20 156/59 (91) 98 04/07/19 23:14 136/66 04/07/19 22:06 65 130/63 04/07/19 21:09 96 Nasal Cannula 2.0 28 04/07/19 21:00 Nasal Cannula 2.0 04/07/19 20:00 97.8 87 20 138/71 (93) 96 04/07/19 16:00 98.7 88 20 115/63 (80) 98 04/07/19 13:37 110/59 04/07/19 12:00 98.4 72 20 110/59 (76) 97 04/07/19 09:35 80 135/98 04/07/19 09:00 Nasal Cannula 2.0 Intake and Output 04/07/19 04/08/19 18:59 06:59 Intake Total 855 ml 600 ml Output Total 800 ml 900 ml Balance 55 ml -300 ml Intake Oral 800 ml IV Total 55 ml 600 ml Output Urine Total 800 ml 900 ml # Bowel Movements 3 Laboratory Tests 04/07/19 10:30: White Blood Count 5.0, Red Blood Count 3.56L, Hemoglobin 10.0L, Hematocrit 32.2L , Mean Corpuscular Volume 90, Mean Corpuscular Hemoglobin 28.1, Mean Corpuscular Hemoglobin Concent 31.1L, Red Cell Distribution Width 18.2H, Platelet Count 89L, Mean Platelet Volume 8.0, Neutrophils (%) (Auto) , Lymphocytes (%) (Auto) , Monocytes (%) (Auto) , Eosinophils (%) (Auto) , Basophils (%) (Auto) , Differential Total Cells Counted 100, Neutrophils % ( Manual) 66, Lymphocytes % (Manual) 17L, Monocytes % (Manual) 15H, Eosinophils % (Manual) 1, Basophils % (Manual) 1, Band Neutrophils 0, Platelet Estimate DecreasedL, Platelet Morphology Normal, Hypochromasia 1+, Anisocytosis 2+, Sodium Level 145, Potassium Level 3.1L, Chloride Level 113H, Carbon Dioxide Level 23, Anion Gap 9, Blood Urea Nitrogen 33H, Creatinine 1.7H, Estimat Glomerular Filtration Rate , Glucose Level 194H, Calcium Level 7.4L 04/08/19 06:50: White Blood Count 4.7L, Red Blood Count 3.50L, Hemoglobin 10.0L, Hematocrit 31.5L, Mean Corpuscular Volume 90, Mean Corpuscular Hemoglobin 28.6, Mean Corpuscular Hemoglobin Concent 31.8L, Red Cell Distribution Width 18.1H, Platelet Count 117L, Mean Platelet Volume 9.5, Neutrophils (%) (Auto) 70.9, Lymphocytes (%) (Auto) 14.8L, Monocytes (%) (Auto) 12.3H, Eosinophils (%) (Auto ) 1.3, Basophils (%) (Auto) 0.7, Sodium Level 139, Potassium Level 3.3L, Chloride Level 112H, Carbon Dioxide Level 22, Anion Gap 5, Blood Urea Nitrogen 30H, Creatinine 1.8H, Estimat Glomerular Filtration Rate , Glucose Level 219H, Calcium Level 7.2L, Random Vancomycin Level [Pending] Height (Feet): 5 Height (Inches): 9.00 Weight (Pounds): 174 General Appearance: lethargic EENT: normal ENT inspection Neck: normal alignment Cardiovascular: normal peripheral pulses, normal rate, regular rhythm Respiratory/Chest: chest wall non-tender, lungs clear, normal breath sounds Abdomen: normal bowel sounds, non tender, soft Extremities: normal inspection Edema: no edema noted Arm (L), no edema noted Arm (R), no edema noted Leg (L), no edema noted Leg (R), no edema noted Pedal (L), no edema noted Pedal (R), no edema noted Generalized Neurologic: motor weakness Skin: normal pigmentation, warm/dry Jamie Gray DO Apr 08, 2019 08:07
[2019-04-08 08:52] VITALS: BP 136/64
--- NOTE | 2019-04-08 08:56 | General Progress Note ---
Assessment/Plan Status: unchanged Assessment/Plan: GI: Plan Problems: (1) Dehydration (2) Electrolyte imbalance (3) C. difficile colitis (4) Anemia Plan fecal occult blood stool positive C. difficile positive Recommend EGD and colonoscopy at some point to evaluate possible GI bleed, will hold at this time given active C. difficile colitis. Antibiotics per infectious diseases off PPI IV and p.o. hydration plus electrolyte correction poor po intake Monitor H&H, PRN transfusions po vanco for C.diff off all laxatives We will follow with additional recommendations on a daily basis ensure s/p IVC filter placement Subjective Allergies: Coded Allergies: No Known Allergies (Unverified , 12/20/18) Objective Last 24 Hour Vital Signs Date Time Temp Pulse Resp B/P (MAP) Pulse Ox O2 Delivery O2 Flow Rate FiO2 04/08/19 08:52 98.0 85 19 136/64 (88) 98 04/08/19 05:48 150/88 04/08/19 00:00 98.2 73 20 156/59 (91) 98 04/07/19 23:14 136/66 04/07/19 22:06 65 130/63 04/07/19 21:09 96 Nasal Cannula 2.0 28 04/07/19 21:00 Nasal Cannula 2.0 04/07/19 20:00 97.8 87 20 138/71 (93) 96 04/07/19 16:00 98.7 88 20 115/63 (80) 98 04/07/19 13:37 110/59 04/07/19 12:00 98.4 72 20 110/59 (76) 97 04/07/19 09:35 80 135/98 04/07/19 09:00 Nasal Cannula 2.0 Intake and Output 04/07/19 04/08/19 18:59 06:59 Intake Total 855 ml 600 ml Output Total 800 ml 900 ml Balance 55 ml -300 ml Intake Oral 800 ml IV Total 55 ml 600 ml Output Urine Total 800 ml 900 ml # Bowel Movements 3 Laboratory Tests 04/07/19 10:30: White Blood Count 5.0, Red Blood Count 3.56L, Hemoglobin 10.0L, Hematocrit 32.2L , Mean Corpuscular Volume 90, Mean Corpuscular Hemoglobin 28.1, Mean Corpuscular Hemoglobin Concent 31.1L, Red Cell Distribution Width 18.2H, Platelet Count 89L, Mean Platelet Volume 8.0, Neutrophils (%) (Auto) , Lymphocytes (%) (Auto) , Monocytes (%) (Auto) , Eosinophils (%) (Auto) , Basophils (%) (Auto) , Differential Total Cells Counted 100, Neutrophils % ( Manual) 66, Lymphocytes % (Manual) 17L, Monocytes % (Manual) 15H, Eosinophils % (Manual) 1, Basophils % (Manual) 1, Band Neutrophils 0, Platelet Estimate DecreasedL, Platelet Morphology Normal, Hypochromasia 1+, Anisocytosis 2+, Sodium Level 145, Potassium Level 3.1L, Chloride Level 113H, Carbon Dioxide Level 23, Anion Gap 9, Blood Urea Nitrogen 33H, Creatinine 1.7H, Estimat Glomerular Filtration Rate , Glucose Level 194H, Calcium Level 7.4L 04/08/19 06:50: White Blood Count 4.7L, Red Blood Count 3.50L, Hemoglobin 10.0L, Hematocrit 31.5L, Mean Corpuscular Volume 90, Mean Corpuscular Hemoglobin 28.6, Mean Corpuscular Hemoglobin Concent 31.8L, Red Cell Distribution Width 18.1H, Platelet Count 117L, Mean Platelet Volume 9.5, Neutrophils (%) (Auto) 70.9, Lymphocytes (%) (Auto) 14.8L, Monocytes (%) (Auto) 12.3H, Eosinophils (%) (Auto ) 1.3, Basophils (%) (Auto) 0.7, Sodium Level 139, Potassium Level 3.3L, Chloride Level 112H, Carbon Dioxide Level 22, Anion Gap 5, Blood Urea Nitrogen 30H, Creatinine 1.8H, Estimat Glomerular Filtration Rate , Glucose Level 219H, Calcium Level 7.2L, Random Vancomycin Level 13.4 Height (Feet): 5 Height (Inches): 9.00 Weight (Pounds): 174 General Appearance: alert EENT: normal ENT inspection Neck: supple Cardiovascular: normal rate Respiratory/Chest: decreased breath sounds Abdomen: normal bowel sounds, non tender, soft Extremities: non-tender Terell Valiente MD Apr 08, 2019 08:56
[2019-04-08] MEDS: Heparin 5000 units/ml inj SUBQ SCH ×2 (09:00→21:00)
[2019-04-08] MEDS: Carvedilol 12.5mg tab ORAL SCH ×2 (09:09→21:27)
[2019-04-08] MEDS: Tamsulosin 0.4mg cap ORAL SCH ×2 (09:09→17:42)
[2019-04-08] MEDS: Vancomycin oral 125mg/2.5ml ORAL SCH ×4 (09:09→21:27)
[2019-04-08] MEDS ORDERED: NS 500ML ONE (09:29)
[2019-04-08] MEDS ORDERED: Vancomycin 1.25gm/NS Premix q24h IVPB SCH (10:00)
[2019-04-08 12:00] VITALS: BP 120/55
--- NOTE | 2019-04-08 12:32 | Surgery Progress Note ---
Surgery Progress Note Subjective Additional Comments no acute events Objective Last 24 Hour Vital Signs Date Time Temp Pulse Resp B/P (MAP) Pulse Ox O2 Delivery O2 Flow Rate FiO2 04/08/19 12:00 97.9 68 19 120/55 (76) 98 04/08/19 09:09 85 136/64 04/08/19 09:00 Nasal Cannula 2.0 04/08/19 08:52 98.0 85 19 136/64 (88) 98 04/08/19 05:48 150/88 04/08/19 00:00 98.2 73 20 156/59 (91) 98 04/07/19 23:14 136/66 04/07/19 22:06 65 130/63 04/07/19 21:09 96 Nasal Cannula 2.0 28 04/07/19 21:00 Nasal Cannula 2.0 04/07/19 20:00 97.8 87 20 138/71 (93) 96 04/07/19 16:00 98.7 88 20 115/63 (80) 98 04/07/19 13:37 110/59 I&O Intake and Output 04/07/19 04/08/19 18:59 06:59 Intake Total 855 ml 600 ml Output Total 800 ml 900 ml Balance 55 ml -300 ml Intake Oral 800 ml IV Total 55 ml 600 ml Output Urine Total 800 ml 900 ml # Bowel Movements 3 Dressing: other Wound: other Drains: other Cardiovascular: RSR Respiratory: decreased breath sounds Abdomen: soft, present bowel sounds Extremities: no cyanosis, other Laboratory Tests Test 04/08/19 06:50 White Blood Count 4.7 K/UL (4.8-10.8) L Red Blood Count 3.50 M/UL (4.70-6.10) L Hemoglobin 10.0 G/DL (14.2-18.0) L Hematocrit 31.5 % (42.0-52.0) L Mean Corpuscular Volume 90 FL (80-99) Mean Corpuscular Hemoglobin 28.6 PG (27.0-31.0) Mean Corpuscular Hemoglobin Concent 31.8 G/DL (32.0-36.0) L Red Cell Distribution Width 18.1 % (11.6-14.8) H Platelet Count 117 K/UL (150-450) L Mean Platelet Volume 9.5 FL (6.5-10.1) Neutrophils (%) (Auto) 70.9 % (45.0-75.0) Lymphocytes (%) (Auto) 14.8 % (20.0-45.0) L Monocytes (%) (Auto) 12.3 % (1.0-10.0) H Eosinophils (%) (Auto) 1.3 % (0.0-3.0) Basophils (%) (Auto) 0.7 % (0.0-2.0) Sodium Level 139 MMOL/L (136-145) Potassium Level 3.3 MMOL/L (3.5-5.1) L Chloride Level 112 MMOL/L (98-107) H Carbon Dioxide Level 22 MMOL/L (21-32) Anion Gap 5 mmol/L (5-15) Blood Urea Nitrogen 30 mg/dL (7-18) H Creatinine 1.8 MG/DL (0.55-1.30) H Estimat Glomerular Filtration Rate mL/min (>60) Glucose Level 219 MG/DL (74-106) H Calcium Level 7.2 MG/DL (8.5-10.1) L Random Vancomycin Level 13.4 ug/mL Plan Problems: (1) Scrotal lesion Assessment & Plan: This is a 83-year-old male with multiple medical morbidities who was identified to have abnormal scrotal lesions on admission. There are 3 lesions on the scrotum clearly identified and likely old small abscesses or carbuncles which have healed slowly. Patient is incontinent With leakage of stool identified around the scrotal sac on the posterior aspect where the lesions are located. No signs of active infection no active drainage nontender skin macerated Recommend washing the scrotum daily with normal saline. Apply skin protectant and moisture absorbent dressing daily and as needed saturation We will follow and monitor for healing (2) Sacral decubitus ulcer, stage III Assessment & Plan: Pt presented on admission with multiple pressure injuries. Full thickness sacral pressure injury. Base of wound is viable with an area that is purple in center. Semi-detached black borders(L)9.5cm x (W)4.9cm x(D) 0.2cm .Non-blanching erythema periwound. Multiple pressure injuries Scrotum. Base of pressure injury R scrotum 75% pink granulation,25% slough. Edges pink,flat and adherent to base of wound.(L)2.2cm x (W)0.9cm.Ful thickness pressure injury center -base of scrotum (L)0.5cm x (W) 0.4cm. Base of wound has 100% slough. Full thickness pressure injury L scrotum ( L)2cm x (W01.1cm. Base of wound has 90% slough ,10% viable. Reabsorbing blood blister R heel heel. Base of wound black (L)2.2cm x (W)2cm with red tinged borders with fluctuance. (L)5.5cm x(W)5cm. Reabsorbing Blood Blister L heel. Base of wound is black ,dry with maroon and fluctuant borders.(L)6.5cm x (W)6cm Abd folds are moist and dark but is intact. Tx.Plan: Cleanse Sacral wound with Saline. Apply Therahoney. Apply Moisture Barrier Paste periwound. Cover with Optifoam drsg Daily and prn. Cleanse wounds on Scrotum with saline. Apply Therhaoney to each wound. Cover with Optifoam drsg. Change Daily and prn. Apply Moisture Barrier to Abd folds and Bilat groin Daily and prn. APM/NOLBERTO Mattress overlay. Reposition at least every 2hours or as tolerated. Off-load heels with pillow. (3) Bladder cancer (4) C. difficile colitis Assessment & Plan: blood cultures negative C diff positive - discussed with ID cont abx labs noted and improved exam stable cont current tx Bebeto Pepe Apr 08, 2019 12:32
--- NOTE | 2019-04-08 14:04 | Infectious Diseases Prog Note ---
Assessment/Plan Assessment/Plan 83yo gentleman with PMH below presents from long term with confusion, wheezing and desaturation between 83-90%. Pt is oriented to self. Does not know where he is or why he is in the hospital. He initially says yes to abdominal pain, suprapubic pain, leg pain, arm pain but then denied it on second question. Denies fever, chills, cough, sob, diarrhea, dysuria. Unclear baseline. Pt recently had blood transfusion at [facility] 03/06. Pt was recently diagnosed with bladder cancer 12/2018 Afebrile On RA No leukocytosis No lactic acidosis Hypoxia at long term, SP Possible PNA? flu swab negative CXR: Mild diffuse airspace opacities in both lungs. Lungs are underinflated.Lung findings are likely due to underinflation rather than pulmonary edema or atelectasis. Possible UTI? UA WBC TNTC, also moderate epithelial cells UCx: 50-60K amp sensitive E faecalis E faecalis bacteremia likely 2/ UTI 04/01 BCx: E faecalis 04/02 BCx: ngtd TTE without vegetation C diff + 04/04 Acute DVT pending IVC filter RIGHT LEG: Venous imaging reveals acute thrombus in the common to superficial femoral veins. LEFT LEG: Venous imaging reveals acute thrombus in the common to superficial femoral veins. SP IVC filter 04/06 Hypokalemia MRSA screen negative ANGELA on CKD CAD Bladder cancer HTN DM CVA Dyslipidemia CKD Anemia BPH Plan: continue cefepime #7/8(last dose 04/09) and vancomycin IV #7/14(tentative end date 04/15) and Vancomycin PO #5/14 f/u repeat bcx f/u MRSA screen aspiration precaution, elevate HOB monitor temp and CBC Thank you for this consult. [facility] will continue to follow the patient with you. Subjective Allergies: Coded Allergies: No Known Allergies (Unverified , 12/20/18) Subjective Afebrile. No leukocytosis Still with diarrhea Objective Vital Signs Last 24 Hour Vital Signs Date Time Temp Pulse Resp B/P (MAP) Pulse Ox O2 Delivery O2 Flow Rate FiO2 04/08/19 13:00 120/55 04/08/19 12:00 97.9 68 19 120/55 (76) 98 04/08/19 09:09 85 136/64 04/08/19 09:00 Nasal Cannula 2.0 04/08/19 08:52 98.0 85 19 136/64 (88) 98 04/08/19 05:48 150/88 04/08/19 00:00 98.2 73 20 156/59 (91) 98 04/07/19 23:14 136/66 04/07/19 22:06 65 130/63 04/07/19 21:09 96 Nasal Cannula 2.0 28 04/07/19 21:00 Nasal Cannula 2.0 04/07/19 20:00 97.8 87 20 138/71 (93) 96 04/07/19 16:00 98.7 88 20 115/63 (80) 98 Height (Feet): 5 Height (Inches): 9.00 Weight (Pounds): 174 Objective Gen: NAD HEENT: anicteric sclera CV: RRR Resp: RRR Abd: normoactive Bs+. Soft. No TTP Back: no flank pain Neuro: AAOx1 Laboratory Tests Test 04/08/19 06:50 White Blood Count 4.7 K/UL (4.8-10.8) L Red Blood Count 3.50 M/UL (4.70-6.10) L Hemoglobin 10.0 G/DL (14.2-18.0) L Hematocrit 31.5 % (42.0-52.0) L Mean Corpuscular Volume 90 FL (80-99) Mean Corpuscular Hemoglobin 28.6 PG (27.0-31.0) Mean Corpuscular Hemoglobin Concent 31.8 G/DL (32.0-36.0) L Red Cell Distribution Width 18.1 % (11.6-14.8) H Platelet Count 117 K/UL (150-450) L Mean Platelet Volume 9.5 FL (6.5-10.1) Neutrophils (%) (Auto) 70.9 % (45.0-75.0) Lymphocytes (%) (Auto) 14.8 % (20.0-45.0) L Monocytes (%) (Auto) 12.3 % (1.0-10.0) H Eosinophils (%) (Auto) 1.3 % (0.0-3.0) Basophils (%) (Auto) 0.7 % (0.0-2.0) Sodium Level 139 MMOL/L (136-145) Potassium Level 3.3 MMOL/L (3.5-5.1) L Chloride Level 112 MMOL/L (98-107) H Carbon Dioxide Level 22 MMOL/L (21-32) Anion Gap 5 mmol/L (5-15) Blood Urea Nitrogen 30 mg/dL (7-18) H Creatinine 1.8 MG/DL (0.55-1.30) H Estimat Glomerular Filtration Rate mL/min (>60) Glucose Level 219 MG/DL (74-106) H Calcium Level 7.2 MG/DL (8.5-10.1) L Random Vancomycin Level 13.4 ug/mL Current Medications Medications (Trade) Dose Ordered Sig/Sallie Route PRN Reason Start Time Stop Time Status Last Admin Dose Admin Acetaminophen (Tylenol) 650 mg Q4H PRN ORAL fever 04/06/19 14:00 05/01/19 13:59 Allopurinol (Allopurinol) 300 mg DAILY ORAL 04/07/19 09:00 05/03/19 09:59 04/08/19 09:08 Carvedilol (Coreg) 12.5 mg EVERY 12 HOURS ORAL 04/06/19 21:00 05/01/19 08:59 04/08/19 09:09 Dextrose (Dextrose 50%) 25 ml Q30M PRN IV Hypoglycemia 04/06/19 14:00 05/01/19 10:29 Dextrose (Dextrose 50%) 50 ml Q30M PRN IV Hypoglycemia 04/06/19 14:00 05/01/19 10:29 Dextrose/ Electrolytes 1,000 ml @ 75 mls/hr [id number] IV 04/06/19 13:30 05/04/19 09:59 04/08/19 06:13 Heparin Sodium (Porcine) (Heparin 5000 units/ml) 5,000 units EVERY 12 HOURS SUBQ 04/06/19 21:00 05/01/19 08:59 Hydralazine HCl (Apresoline) 50 mg Q8HR ORAL 04/06/19 14:00 05/01/19 13:59 04/08/19 13:00 Insulin Aspart (NovoLOG) BEFORE MEALS AND HS SUBQ 04/06/19 16:30 05/01/19 11:29 04/08/19 11:30 Minoxidil (Loniten) 2.5 mg Q4H PRN ORAL bp over 165 syst 04/06/19 14:00 05/01/19 13:59 Morphine Sulfate (Morphine Sulfate) 2 mg Q4H PRN IVP Moderate Pain (Pain Scale 4-6) 04/06/19 14:00 04/08/19 13:59 Ondansetron HCl (Zofran) 4 mg Q6H PRN IVP Nausea & Vomiting 04/06/19 14:00 05/01/19 07:59 Potassium Chloride (K-Dur) 40 meq TWICE A DAY ORAL 04/08/19 18:00 05/08/19 17:59 Quetiapine Fumarate (SEROqueL) 50 mg TWICE A DAY ORAL 04/06/19 18:00 05/03/19 17:59 04/08/19 09:08 Tamsulosin HCl (Flomax) 0.4 mg BID ORAL 04/06/19 18:00 05/01/19 12:59 04/08/19 09:09 Temazepam (Restoril) 15 mg HSPRN PRN ORAL Insomnia 04/06/19 14:00 04/13/19 13:59 Vancomycin HCl (Firvanq) 125 mg FOUR TIMES A DAY ORAL 04/06/19 18:00 04/11/19 12:59 04/08/19 13:15 Vancomycin HCl (Vanco rx to dose) 1 ea DAILY PRN MISC Per rx protocol 04/07/19 09:00 05/01/19 08:14 Ashley Wasserman MD Apr 08, 2019 14:04
--- NOTE | 2019-04-08 15:35 | Nephrology Progress Note ---
Assessment/Plan Problem List: (1) ARF (acute renal failure) (2) Acute on chronic renal insufficiency (3) Diabetes (4) HTN (hypertension) (5) Bladder cancer (6) Invasive carcinoma of urinary bladder (7) Anemia Assessment Acute renal failure ? Superimposed CKD Bladder Mass / h/o Hematuria HTN DM Anemia, previous transfusions s/p Cystoscopy 12/28 Plan hardly takes PO meds med-surg favor transfusion Hydrate richardson IV Iron K Supplement BP management, BP med adjustment Monitor lytes and renal parameters Kidney ESDRAS , no hydro per orders Previous Uro note: Tolerated bladder tumor resection well. Unfortunately greater part of the bladder is involved and essentially replaced all normal bladder with tumor. I can not resect all the tumors. Patient needs a radical cystectomy (removal of bladder) or radiation/chemotherapy at higher level of care. 1. recommend transfer to higher level of care for cystectomy 2. continue richardson, keep irrigation to maintain light pink urine. Multiple mass like lesions within the bladder. Further evaluation with cystoscopy is recommended to evaluate for possible neoplasm. Multiple parapelvic renal cysts Subjective ROS Limited/Unobtainable: No Constitutional: Reports: malaise, weakness Objective Objective Last 24 Hour Vital Signs Date Time Temp Pulse Resp B/P (MAP) Pulse Ox O2 Delivery O2 Flow Rate FiO2 04/08/19 13:00 120/55 04/08/19 12:00 97.9 68 19 120/55 (76) 98 04/08/19 09:09 85 136/64 04/08/19 09:00 Nasal Cannula 2.0 04/08/19 08:52 98.0 85 19 136/64 (88) 98 04/08/19 05:48 150/88 04/08/19 00:00 98.2 73 20 156/59 (91) 98 04/07/19 23:14 136/66 04/07/19 22:06 65 130/63 04/07/19 21:09 96 Nasal Cannula 2.0 28 04/07/19 21:00 Nasal Cannula 2.0 04/07/19 20:00 97.8 87 20 138/71 (93) 96 04/07/19 16:00 98.7 88 20 115/63 (80) 98 Intake and Output 04/07/19 04/08/19 19:00 07:00 Intake Total 855 ml 600 ml Output Total 800 ml 900 ml Balance 55 ml -300 ml Intake Oral 800 ml IV Total 55 ml 600 ml Output Urine Total 800 ml 900 ml # Bowel Movements 3 Laboratory Tests 04/08/19 06:50: White Blood Count 4.7L, Red Blood Count 3.50L, Hemoglobin 10.0L, Hematocrit 31.5L, Mean Corpuscular Volume 90, Mean Corpuscular Hemoglobin 28.6, Mean Corpuscular Hemoglobin Concent 31.8L, Red Cell Distribution Width 18.1H, Platelet Count 117L, Mean Platelet Volume 9.5, Neutrophils (%) (Auto) 70.9, Lymphocytes (%) (Auto) 14.8L, Monocytes (%) (Auto) 12.3H, Eosinophils (%) (Auto ) 1.3, Basophils (%) (Auto) 0.7, Sodium Level 139, Potassium Level 3.3L, Chloride Level 112H, Carbon Dioxide Level 22, Anion Gap 5, Blood Urea Nitrogen 30H, Creatinine 1.8H, Estimat Glomerular Filtration Rate , Glucose Level 219H, Calcium Level 7.2L, Random Vancomycin Level 13.4 Height (Feet): 5 Height (Inches): 9.00 Weight (Pounds): 174 General Appearance: no apparent distress, lethargic Cardiovascular: regular rhythm Respiratory/Chest: decreased breath sounds Abdomen: distended Russell Sofia MD Apr 08, 2019 15:35
--- NOTE | 2019-04-08 15:43 | Pulmonology Progress Note ---
Assessment/Plan Problems: (1) C. difficile colitis (2) Acute respiratory failure with hypoxemia (3) Acute deep vein thrombosis (DVT) of both femoral veins (4) Thrombocytopenia (5) Invasive carcinoma of urinary bladder (6) CAD (coronary artery disease) (7) Anemia (8) Diabetes (9) HTN (hypertension) (10) Bladder cancer Assessment/Plan renal function improving V/q scan showed low probability PE venous studies of legs showed acute DVT bilaterally IVC filter done y respiratory treatment check electrolytes titrate fiio2 to sat of 92% dvt prophylaxis. renal function improving Subjective ROS Limited/Unobtainable: No Constitutional: Reports: no symptoms HEENT: Repors: no symptoms Allergies: Coded Allergies: No Known Allergies (Unverified , 12/20/18) Objective Last 24 Hour Vital Signs Date Time Temp Pulse Resp B/P (MAP) Pulse Ox O2 Delivery O2 Flow Rate FiO2 04/08/19 13:00 120/55 04/08/19 12:00 97.9 68 19 120/55 (76) 98 04/08/19 09:09 85 136/64 04/08/19 09:00 Nasal Cannula 2.0 04/08/19 08:52 98.0 85 19 136/64 (88) 98 04/08/19 05:48 150/88 04/08/19 00:00 98.2 73 20 156/59 (91) 98 04/07/19 23:14 136/66 04/07/19 22:06 65 130/63 04/07/19 21:09 96 Nasal Cannula 2.0 28 04/07/19 21:00 Nasal Cannula 2.0 04/07/19 20:00 97.8 87 20 138/71 (93) 96 04/07/19 16:00 98.7 88 20 115/63 (80) 98 Intake and Output 04/07/19 04/08/19 19:00 07:00 Intake Total 855 ml 600 ml Output Total 800 ml 900 ml Balance 55 ml -300 ml Intake Oral 800 ml IV Total 55 ml 600 ml Output Urine Total 800 ml 900 ml # Bowel Movements 3 Objective HEENT: normocephalic, atraumatic Respiratory/Chest: chest wall non-tender, normal breath sounds Cardiovascular: normal rate, regular rhythm Abdomen: normal bowel sounds, soft, non tender Genitourinary: normal external genitalia Extremities: no cyanosis Skin: no rash, no lesions Laboratory Tests 04/08/19 06:50: White Blood Count 4.7L, Red Blood Count 3.50L, Hemoglobin 10.0L, Hematocrit 31.5L, Mean Corpuscular Volume 90, Mean Corpuscular Hemoglobin 28.6, Mean Corpuscular Hemoglobin Concent 31.8L, Red Cell Distribution Width 18.1H, Platelet Count 117L, Mean Platelet Volume 9.5, Neutrophils (%) (Auto) 70.9, Lymphocytes (%) (Auto) 14.8L, Monocytes (%) (Auto) 12.3H, Eosinophils (%) (Auto ) 1.3, Basophils (%) (Auto) 0.7, Sodium Level 139, Potassium Level 3.3L, Chloride Level 112H, Carbon Dioxide Level 22, Anion Gap 5, Blood Urea Nitrogen 30H, Creatinine 1.8H, Estimat Glomerular Filtration Rate , Glucose Level 219H, Calcium Level 7.2L, Random Vancomycin Level 13.4 Current Medications Medications (Trade) Dose Ordered Sig/Sallie Route PRN Reason Start Time Stop Time Status Last Admin Dose Admin Acetaminophen (Tylenol) 650 mg Q4H PRN ORAL fever 04/06/19 14:00 05/01/19 13:59 Allopurinol (Allopurinol) 300 mg DAILY ORAL 04/07/19 09:00 05/03/19 09:59 04/08/19 09:08 Carvedilol (Coreg) 12.5 mg EVERY 12 HOURS ORAL 04/06/19 21:00 05/01/19 08:59 04/08/19 09:09 Cefepime HCl 1 gm/ Dextrose 55 ml @ 110 mls/hr Q24H IVPB 04/08/19 15:00 04/09/19 16:00 Dextrose (Dextrose 50%) 25 ml Q30M PRN IV Hypoglycemia 04/06/19 14:00 05/01/19 10:29 Dextrose (Dextrose 50%) 50 ml Q30M PRN IV Hypoglycemia 04/06/19 14:00 05/01/19 10:29 Dextrose/ Electrolytes 1,000 ml @ 75 mls/hr [id number] IV 04/06/19 13:30 05/04/19 09:59 04/08/19 06:13 Heparin Sodium (Porcine) (Heparin 5000 units/ml) 5,000 units EVERY 12 HOURS SUBQ 04/06/19 21:00 05/01/19 08:59 Hydralazine HCl (Apresoline) 50 mg Q8HR ORAL 04/06/19 14:00 05/01/19 13:59 04/08/19 13:00 Insulin Aspart (NovoLOG) BEFORE MEALS AND HS SUBQ 04/06/19 16:30 05/01/19 11:29 04/08/19 11:30 Minoxidil (Loniten) 2.5 mg Q4H PRN ORAL bp over 165 syst 04/06/19 14:00 05/01/19 13:59 Ondansetron HCl (Zofran) 4 mg Q6H PRN IVP Nausea & Vomiting 04/06/19 14:00 05/01/19 07:59 Potassium Chloride 100 ml @ 100 mls/hr Q1HR IVPB 04/08/19 16:00 04/08/19 19:59 Potassium Chloride (K-Dur) 40 meq TWICE A DAY ORAL 04/08/19 18:00 05/08/19 17:59 Quetiapine Fumarate (SEROqueL) 50 mg TWICE A DAY ORAL 04/06/19 18:00 05/03/19 17:59 04/08/19 09:08 Tamsulosin HCl (Flomax) 0.4 mg BID ORAL 04/06/19 18:00 05/01/19 12:59 04/08/19 09:09 Temazepam (Restoril) 15 mg HSPRN PRN ORAL Insomnia 04/06/19 14:00 04/13/19 13:59 Vancomycin HCl (Firvanq) 125 mg FOUR TIMES A DAY ORAL 04/06/19 18:00 04/11/19 12:59 04/08/19 13:15 Vancomycin HCl (Vanco rx to dose) 1 ea DAILY PRN MISC Per rx protocol 04/07/19 09:00 05/01/19 08:14 Adam Moyer MD Apr 08, 2019 15:43
[2019-04-08] MEDS: Cefepime HCl 1 GM in D5W 55 ML IVPB SCH (15:53)
[2019-04-08 16:00] VITALS: BP 124/60
--- NOTE | 2019-04-08 18:12 | Hematology/Onc Progress Note ---
Assessment/Plan Assessment/Plan Assessment and Recs: # ACUTE DEEP VEIN THROMBOSIS BILATERAL, new onset, from 04/02/19 s/p IVC filter on 05/06/[address] Arroyo --> reviewed images with radiology, goes from common to proximal common femoral v ein --> V/Q scan --> shows low prob pe --> given low h/h and low plts, recommend ivc filter placement, consent has been signed --> cleared with other consultants, zen RN --> s/p IVC filter by Dr Arroyo 04/06 --> hold off on anticoagulation until h/h other counts stabilize # Bladder cancer requires resection v chemo/xrt -- presented with multi masses CT shows Scattered eccentric mural thickening/masses in the urinary bladder wall , correlating with findings on recent ultrasound. No significant perivesical stranding. Recommend further evaluation with cystoscopy. --> urology consulted, appreciate input --> Uro note from prior admission: Tolerated bladder tumor resection well. Unfortunately greater part of the bladder is involved and essentially replaced all normal bladder with tumor. I can not resect all the tumors. --> may consider chemo/radiation as outpatient --> path does confirm malignancy --> CBI as needed per uro # Pancytopenia - potential causes multifactorial, evaluate liver and viral etiologies to begin, also could be related to underlying medications patient has received. --> Hep panel and HIV --> NEGATIVE --> US abd showed bladder masses--> ct reviewed as well --> Peripheral smear ordered to evaluate for blasts /schistocytes --> none noted --> abx and other meds have been reviewed --> ok for ppx if plt >50k w/ either heparin or lovenox --> trend plt >92-->104-->86-->73->117k --> wbc trend 3.7 # Anemia of iron deficiency likely due to hematuria --> iv iron x 5 days low ferritin, completed from prior admission --> likely due to hematuria --> have started on ivf and consider uro prn cysto --> hgb goal >7 --> cont po folic acid --> hgb trend: 7.4 # Acute renal injury --> cr >1.4-->1.4-->1.7-->1.5-->3.7->1.8 --> per renal recs --> volume expansion # HTN --> cards is following, appreciate recs # C. diff colitis --> on po vanc # Hematuria # UTI (urinary tract infection) --> per id on abx, cefe/vanc # Scrotal lesions --> per surg eval # Dehydration # Dvt ppx heparin sqand ivf filter The timing of this note does not necessarily reflect the time of the patient was seen. GREATLY APPRECIATE CONSULTATION. Subjective HEENT: Denies: no symptoms, eye pain, blurred vision, tearing, double vision, ear pain, ear discharge, nose pain, nose congestion, throat pain, throat swelling, mouth pain, mouth swelling, other Cardiovascular: Denies: no symptoms, chest pain, edema, irregular heart rate, lightheadedness, palpitations, syncope, other Genitourinary: Denies: no symptoms, burning, discharge, frequency, flank pain, hematuria, incontinence, pain, urgency, other Allergies: Coded Allergies: No Known Allergies (Unverified , 12/20/18) Subjective 04/03: s/p 1 bag iv iron, hgb 7.4, repeat cbc tomorrow, consent for ivc filter has been signed 04/04: is pending clearance of blood cultures, have dw id, potentially thurs for ivcf placement 04/05: no events, still pending ivc filter, have dw rn and id 04/06: no events, no bleeding, pending filter, as per id clearance 04/08: tolerated ivc filter well on 04/06, no events, no bleeding reported Objective Objective Current Medications Medications (Trade) Dose Ordered Sig/Sallie Route PRN Reason Start Time Stop Time Status Last Admin Dose Admin Acetaminophen (Tylenol) 650 mg Q4H PRN ORAL fever 04/06/19 14:00 05/01/19 13:59 Allopurinol (Allopurinol) 300 mg DAILY ORAL 04/07/19 09:00 05/03/19 09:59 04/08/19 09:08 Carvedilol (Coreg) 12.5 mg EVERY 12 HOURS ORAL 04/06/19 21:00 05/01/19 08:59 04/08/19 09:09 Cefepime HCl 1 gm/ Dextrose 55 ml @ 110 mls/hr Q24H IVPB 04/08/19 15:00 04/09/19 16:00 04/08/19 15:53 Dextrose (Dextrose 50%) 25 ml Q30M PRN IV Hypoglycemia 04/06/19 14:00 05/01/19 10:29 Dextrose (Dextrose 50%) 50 ml Q30M PRN IV Hypoglycemia 04/06/19 14:00 05/01/19 10:29 Dextrose/ Electrolytes 1,000 ml @ 75 mls/hr [id number] IV 04/06/19 13:30 05/04/19 09:59 04/08/19 06:13 Heparin Sodium (Porcine) (Heparin 5000 units/ml) 5,000 units EVERY 12 HOURS SUBQ 04/06/19 21:00 05/01/19 08:59 Hydralazine HCl (Apresoline) 50 mg Q8HR ORAL 04/06/19 14:00 05/01/19 13:59 04/08/19 13:00 Insulin Aspart (NovoLOG) BEFORE MEALS AND HS SUBQ 04/06/19 16:30 05/01/19 11:29 04/08/19 16:30 Minoxidil (Loniten) 2.5 mg Q4H PRN ORAL bp over 165 syst 04/06/19 14:00 05/01/19 13:59 Ondansetron HCl (Zofran) 4 mg Q6H PRN IVP Nausea & Vomiting 04/06/19 14:00 05/01/19 07:59 Potassium Chloride 100 ml @ 100 mls/hr Q1HR IVPB 04/08/19 16:00 04/08/19 19:59 04/08/19 17:43 Potassium Chloride (K-Dur) 40 meq TWICE A DAY ORAL 04/08/19 18:00 05/08/19 17:59 04/08/19 17:42 Quetiapine Fumarate (SEROqueL) 50 mg TWICE A DAY ORAL 04/06/19 18:00 05/03/19 17:59 04/08/19 17:42 Tamsulosin HCl (Flomax) 0.4 mg BID ORAL 04/06/19 18:00 05/01/19 12:59 04/08/19 17:42 Temazepam (Restoril) 15 mg HSPRN PRN ORAL Insomnia 04/06/19 14:00 04/13/19 13:59 Vancomycin HCl (Firvanq) 125 mg FOUR TIMES A DAY ORAL 04/06/19 18:00 04/11/19 12:59 04/08/19 13:15 Vancomycin HCl (Vanco rx to dose) 1 ea DAILY PRN MISC Per rx protocol 04/07/19 09:00 05/01/19 08:14 Last 24 Hour Vital Signs Date Time Temp Pulse Resp B/P (MAP) Pulse Ox O2 Delivery O2 Flow Rate FiO2 04/08/19 16:00 98.0 70 19 124/60 (81) 98 04/08/19 13:00 120/55 04/08/19 12:00 97.9 68 19 120/55 (76) 98 04/08/19 09:09 85 136/64 04/08/19 09:00 Nasal Cannula 2.0 04/08/19 08:52 98.0 85 19 136/64 (88) 98 04/08/19 05:48 150/88 04/08/19 00:00 98.2 73 20 156/59 (91) 98 04/07/19 23:14 136/66 04/07/19 22:06 65 130/63 04/07/19 21:09 96 Nasal Cannula 2.0 28 04/07/19 21:00 Nasal Cannula 2.0 04/07/19 20:00 97.8 87 20 138/71 (93) 96 04/07/19 16:00 98.7 88 20 115/63 (80) 98 04/07/19 13:37 110/59 04/07/19 12:00 98.4 72 20 110/59 (76) 97 04/07/19 09:35 80 135/98 04/07/19 09:00 Nasal Cannula 2.0 04/07/19 08:00 98.1 80 22 135/98 (110) 99 04/07/19 07:51 96 Nasal Cannula 2.0 28 04/07/19 06:00 111/56 04/07/19 04:00 98.6 66 17 121/50 (73) 98 04/07/19 00:00 99.5 69 17 124/50 (74) 98 04/06/19 22:00 111/57 04/06/19 21:18 Nasal Cannula 2.0 04/06/19 21:10 77 128/66 11/22/19 20:00 97.7 80 18 137/68 (91) 97 04/06/19 19:46 95 Nasal Cannula 2.0 28 Intake and Output 04/07/19 04/08/19 19:00 07:00 Intake Total 855 ml 600 ml Output Total 800 ml 900 ml Balance 55 ml -300 ml Intake Oral 800 ml IV Total 55 ml 600 ml Output Urine Total 800 ml 900 ml # Bowel Movements 3 Labs Test 04/06/19 06:30 04/06/19 08:10 04/07/19 10:30 04/08/19 06:50 White Blood Count 4.1 K/UL (4.8-10.8) 5.0 K/UL (4.8-10.8) 4.7 K/UL (4.8-10.8) Red Blood Count 3.63 M/UL (4.70-6.10) 3.56 M/UL (4.70-6.10) 3.50 M/UL (4.70-6.10) Hemoglobin 10.3 G/DL (14.2-18.0) 10.0 G/DL (14.2-18.0) 10.0 G/DL (14.2-18.0) Hematocrit 33.0 % (42.0-52.0) 32.2 % (42.0-52.0) 31.5 % (42.0-52.0) Mean Corpuscular Volume 91 FL (80-99) 90 FL (80-99) 90 FL (80-99) Mean Corpuscular Hemoglobin 28.3 PG (27.0-31.0) 28.1 PG (27.0-31.0) 28.6 PG (27.0-31.0) Mean Corpuscular Hemoglobin Concent 31.2 G/DL (32.0-36.0) 31.1 G/DL (32.0-36.0) 31.8 G/DL (32.0-36.0) Red Cell Distribution Width 18.1 % (11.6-14.8) 18.2 % (11.6-14.8) 18.1 % (11.6-14.8) Platelet Count 95 K/UL (150-450) 89 K/UL (150-450) 117 K/UL (150-450) Mean Platelet Volume 8.4 FL (6.5-10.1) 8.0 FL (6.5-10.1) 9.5 FL (6.5-10.1) Neutrophils (%) (Auto) % (45.0-75.0) % (45.0-75.0) 70.9 % (45.0-75.0) Lymphocytes (%) (Auto) % (20.0-45.0) % (20.0-45.0) 14.8 % (20.0-45.0) Monocytes (%) (Auto) % (1.0-10.0) % (1.0-10.0) 12.3 % (1.0-10.0) Eosinophils (%) (Auto) % (0.0-3.0) % (0.0-3.0) 1.3 % (0.0-3.0) Basophils (%) (Auto) % (0.0-2.0) % (0.0-2.0) 0.7 % (0.0-2.0) Differential Total Cells Counted 100 100 Neutrophils % (Manual) 72 % (45-75) 66 % (45-75) Lymphocytes % (Manual) 22 % (20-45) 17 % (20-45) Monocytes % (Manual) 6 % (1-10) 15 % (1-10) Eosinophils % (Manual) 0 % (0-3) 1 % (0-3) Basophils % (Manual) 0 % (0-2) 1 % (0-2) Band Neutrophils 0 % (0-8) 0 % (0-8) Platelet Estimate Decreased Decreased Platelet Morphology Normal Normal Hypochromasia 1+ 1+ Anisocytosis 1+ 2+ Sodium Level 147 MMOL/L (136-145) 145 MMOL/L (136-145) 139 MMOL/L (136-145) Potassium Level 3.4 MMOL/L (3.5-5.1) 3.1 MMOL/L (3.5-5.1) 3.3 MMOL/L (3.5-5.1) Chloride Level 116 MMOL/L (98-107) 113 MMOL/L (98-107) 112 MMOL/L (98-107) Carbon Dioxide Level 24 MMOL/L (21-32) 23 MMOL/L (21-32) 22 MMOL/L (21-32) Anion Gap 7 mmol/L (5-15) 9 mmol/L (5-15) 5 mmol/L (5-15) Blood Urea Nitrogen 38 mg/dL (7-18) 33 mg/dL (7-18) 30 mg/dL (7-18) Creatinine 1.7 MG/DL (0.55-1.30) 1.7 MG/DL (0.55-1.30) 1.8 MG/DL (0.55-1.30) Estimat Glomerular Filtration Rate mL/min (>60) mL/min (>60) mL/min (>60) Glucose Level 162 MG/DL (74-106) 194 MG/DL (74-106) 219 MG/DL (74-106) Calcium Level 7.2 MG/DL (8.5-10.1) 7.4 MG/DL (8.5-10.1) 7.2 MG/DL (8.5-10.1) Random Vancomycin Level 13.1 ug/mL 13.4 ug/mL Height (Feet): 5 Height (Inches): 9.00 Weight (Pounds): 174 Objective Physical Exam Vital Signs: have been reviewed General Appearance: non-toxic, obese, Chronically Ill Respiratory: chest non-tender, lungs clear, mirian BSs, no rhonchi Cardiovascular: normal inspection, regular rate, rhythm, GI: normal inspection, soft Genitourinary: MANZANO+ Musculoskeletal: normal inspection Neurologic: normal inspection, alert Psychiatric: normal inspection Skin: other - Marcelo Shen MD Apr 08, 2019 18:12
--- NOTE | 2019-04-08 18:53 | NUR ---
NURSE NOTES: no bleeding from R side the neck. Dressing intact.
--- NOTE | 2019-04-08 19:30 | NUR ---
NURSE NOTES: Received patient in bed. A/O x2. Patient denies pain. IV in left hand intact with no redness or swelling noted. Call light within reach.
[2019-04-08 20:00] VITALS: BP 136/60
[2019-04-09] VITALS: BP 107/61
[2019-04-09] MEDS: D5W w/KCl 20mEq 1,000 ML IV SCH ×3 (02:00→21:30)
[2019-04-09 04:00] VITALS: BP 144/55
[2019-04-09] MEDS: HydrALAZINE 50mg tab ORAL SCH ×3 (06:11→22:53)
[2019-04-09] MEDS: NovoLOG Insulin Flexpen SUBQ SCH ×4 (06:17→21:47)
--- NOTE | 2019-04-09 06:20 | Hematology/Onc Progress Note ---
Assessment/Plan Assessment/Plan Assessment and Recs: # ACUTE DEEP VEIN THROMBOSIS BILATERAL, new onset, from 04/02/19 s/p IVC filter on 05/06/[address] Arroyo --> reviewed images with radiology, goes from common to proximal common femoral v ein --> V/Q scan --> shows low prob pe --> given low h/h and low plts, recommend ivc filter placement, consent has been signed --> cleared with other consultants, zen RN --> s/p IVC filter by Dr Arroyo 04/06 --> hold off on anticoagulation until h/h other counts stabilize # Bladder cancer requires resection v chemo/xrt -- presented with multi masses CT shows Scattered eccentric mural thickening/masses in the urinary bladder wall , correlating with findings on recent ultrasound. No significant perivesical stranding. Recommend further evaluation with cystoscopy. --> urology consulted, appreciate input --> Uro note from prior admission: Tolerated bladder tumor resection well. Unfortunately greater part of the bladder is involved and essentially replaced all normal bladder with tumor. I can not resect all the tumors. --> may consider chemo/radiation as outpatient --> path does confirm malignancy --> CBI as needed per uro # Pancytopenia - potential causes multifactorial, evaluate liver and viral etiologies to begin, also could be related to underlying medications patient has received. --> Hep panel and HIV --> NEGATIVE --> US abd showed bladder masses--> ct reviewed as well --> Peripheral smear ordered to evaluate for blasts /schistocytes --> none noted --> abx and other meds have been reviewed --> ok for ppx if plt >50k w/ either heparin or lovenox --> trend plt >92-->104-->86-->73->117k --> wbc trend 3.7 # Anemia of iron deficiency likely due to hematuria --> iv iron x 5 days low ferritin, completed from prior admission --> likely due to hematuria --> have started on ivf and consider uro prn cysto --> hgb goal >7 --> cont po folic acid --> hgb trend: 7.4 # Acute renal injury --> cr >1.4-->1.4-->1.7-->1.5-->3.7->1.8 --> per renal recs --> volume expansion # HTN --> cards is following, appreciate recs # C. diff colitis --> on po vanc # Hematuria # UTI (urinary tract infection) --> per id on abx, cefe/vanc # Scrotal lesions --> per surg eval # Dehydration # Dvt ppx heparin sqand ivf filter The timing of this note does not necessarily reflect the time of the patient was seen. GREATLY APPRECIATE CONSULTATION. Subjective HEENT: Denies: no symptoms, eye pain, blurred vision, tearing, double vision, ear pain, ear discharge, nose pain, nose congestion, throat pain, throat swelling, mouth pain, mouth swelling, other Respiratory: Denies: no symptoms, cough, shortness of breath, SOB with excertion, SOB at rest, sputum, wheezing, other Gastrointestinal/Abdominal: Denies: no symptoms, abdomen distended, abdominal pain, black stools, tarry stools, blood in stool, constipated, diarrhea, difficulty swallowing, nausea, poor appetite, poor fluid intake, rectal bleeding , vomiting, other Genitourinary: Denies: no symptoms, burning, discharge, frequency, flank pain, hematuria, incontinence, pain, urgency, other Neurologic/Psychiatric: Denies: no symptoms, anxiety, depressed, emotional problems, headache, numbness, paresthesia, pre-existing deficit, seizure, tingling, tremors, weakness, other Endocrine: Denies: no symptoms, excessive sweating, flushing, intolerance to cold, intolerance to heat, increased hunger, increased thirst, increased urine, unexplained weight gain, unexplained weight loss, other Hematologic/Lymphatic: Denies: no symptoms, anemia, easy bleeding, easy bruising, adenopathy, other Allergies: Coded Allergies: No Known Allergies (Unverified , 12/20/18) Subjective 04/03: s/p 1 bag iv iron, hgb 7.4, repeat cbc tomorrow, consent for ivc filter has been signed 04/04: is pending clearance of blood cultures, have dw id, potentially thurs for ivcf placement 04/05: no events, still pending ivc filter, have dw rn and id 04/06: no events, no bleeding, pending filter, as per id clearance 04/08: tolerated ivc filter well on 04/06, no events, no bleeding reported 04/09: no events, remains confused is on 2l nc, zen rn Objective Objective Current Medications Medications (Trade) Dose Ordered Sig/Sallie Route PRN Reason Start Time Stop Time Status Last Admin Dose Admin Acetaminophen (Tylenol) 650 mg Q4H PRN ORAL fever 04/06/19 14:00 05/01/19 13:59 Allopurinol (Allopurinol) 300 mg DAILY ORAL 04/07/19 09:00 05/03/19 09:59 04/08/19 09:08 Carvedilol (Coreg) 12.5 mg EVERY 12 HOURS ORAL 04/06/19 21:00 05/01/19 08:59 04/08/19 21:27 Cefepime HCl 1 gm/ Dextrose 55 ml @ 110 mls/hr Q24H IVPB 04/08/19 15:00 04/09/19 16:00 04/08/19 15:53 Dextrose (Dextrose 50%) 25 ml Q30M PRN IV Hypoglycemia 04/06/19 14:00 05/01/19 10:29 Dextrose (Dextrose 50%) 50 ml Q30M PRN IV Hypoglycemia 04/06/19 14:00 05/01/19 10:29 Dextrose/ Electrolytes 1,000 ml @ 75 mls/hr [id number] IV 04/06/19 13:30 05/04/19 09:59 04/09/19 02:00 Heparin Sodium (Porcine) (Heparin 5000 units/ml) 5,000 units EVERY 12 HOURS SUBQ 04/06/19 21:00 05/01/19 08:59 Hydralazine HCl (Apresoline) 50 mg Q8HR ORAL 04/06/19 14:00 05/01/19 13:59 04/08/19 21:26 Insulin Aspart (NovoLOG) BEFORE MEALS AND HS SUBQ 04/06/19 16:30 05/01/19 11:29 04/08/19 21:24 Minoxidil (Loniten) 2.5 mg Q4H PRN ORAL bp over 165 syst 04/06/19 14:00 05/01/19 13:59 Ondansetron HCl (Zofran) 4 mg Q6H PRN IVP Nausea & Vomiting 04/06/19 14:00 05/01/19 07:59 Potassium Chloride (K-Dur) 40 meq TWICE A DAY ORAL 04/08/19 18:00 05/08/19 17:59 04/08/19 17:42 Quetiapine Fumarate (SEROqueL) 50 mg TWICE A DAY ORAL 04/06/19 18:00 05/03/19 17:59 04/08/19 17:42 Tamsulosin HCl (Flomax) 0.4 mg BID ORAL 04/06/19 18:00 05/01/19 12:59 04/08/19 17:42 Temazepam (Restoril) 15 mg HSPRN PRN ORAL Insomnia 04/06/19 14:00 04/13/19 13:59 Vancomycin HCl (Firvanq) 125 mg FOUR TIMES A DAY ORAL 04/06/19 18:00 04/11/19 12:59 04/08/19 21:27 Vancomycin HCl (Vanco rx to dose) 1 ea DAILY PRN MISC Per rx protocol 04/07/19 09:00 05/01/19 08:14 Last 24 Hour Vital Signs Date Time Temp Pulse Resp B/P (MAP) Pulse Ox O2 Delivery O2 Flow Rate FiO2 04/09/19 04:00 97.5 71 20 144/55 (84) 99 04/09/19 00:00 98.1 18 107/61 (76) 100 04/08/19 21:27 71 136/60 04/08/19 21:26 136/60 04/08/19 21:00 Nasal Cannula 2.0 04/08/19 20:09 97 Nasal Cannula 2.0 28 04/08/19 20:00 98.2 71 18 136/60 (85) 100 04/08/19 16:00 98.0 70 19 124/60 (81) 98 04/08/19 13:00 120/55 04/08/19 12:00 97.9 68 19 120/55 (76) 98 04/08/19 09:09 85 136/64 04/08/19 09:00 Nasal Cannula 2.0 04/08/19 08:52 98.0 85 19 136/64 (88) 98 04/08/19 05:48 150/88 04/08/19 00:00 98.2 73 20 156/59 (91) 98 04/07/19 23:14 136/66 04/07/19 22:06 65 130/63 04/07/19 21:09 96 Nasal Cannula 2.0 28 04/07/19 21:00 Nasal Cannula 2.0 04/07/19 20:00 97.8 87 20 138/71 (93) 96 04/07/19 16:00 98.7 88 20 115/63 (80) 98 04/07/19 13:37 110/59 04/07/19 12:00 98.4 72 20 110/59 (76) 97 04/07/19 09:35 80 135/98 04/07/19 09:00 Nasal Cannula 2.0 04/07/19 08:00 98.1 80 22 135/98 (110) 99 04/07/19 07:51 96 Nasal Cannula 2.0 28 Intake and Output 04/08/19 04/09/19 19:00 07:00 Intake Total 570 ml 675 ml Output Total 400 ml Balance 170 ml 675 ml Intake Oral 360 ml IV Total 210 ml 675 ml Output Urine Total 400 ml # Bowel Movements 2 Labs Test 04/06/19 06:30 04/06/19 08:10 04/07/19 10:30 04/08/19 06:50 White Blood Count 4.1 K/UL (4.8-10.8) 5.0 K/UL (4.8-10.8) 4.7 K/UL (4.8-10.8) Red Blood Count 3.63 M/UL (4.70-6.10) 3.56 M/UL (4.70-6.10) 3.50 M/UL (4.70-6.10) Hemoglobin 10.3 G/DL (14.2-18.0) 10.0 G/DL (14.2-18.0) 10.0 G/DL (14.2-18.0) Hematocrit 33.0 % (42.0-52.0) 32.2 % (42.0-52.0) 31.5 % (42.0-52.0) Mean Corpuscular Volume 91 FL (80-99) 90 FL (80-99) 90 FL (80-99) Mean Corpuscular Hemoglobin 28.3 PG (27.0-31.0) 28.1 PG (27.0-31.0) 28.6 PG (27.0-31.0) Mean Corpuscular Hemoglobin Concent 31.2 G/DL (32.0-36.0) 31.1 G/DL (32.0-36.0) 31.8 G/DL (32.0-36.0) Red Cell Distribution Width 18.1 % (11.6-14.8) 18.2 % (11.6-14.8) 18.1 % (11.6-14.8) Platelet Count 95 K/UL (150-450) 89 K/UL (150-450) 117 K/UL (150-450) Mean Platelet Volume 8.4 FL (6.5-10.1) 8.0 FL (6.5-10.1) 9.5 FL (6.5-10.1) Neutrophils (%) (Auto) % (45.0-75.0) % (45.0-75.0) 70.9 % (45.0-75.0) Lymphocytes (%) (Auto) % (20.0-45.0) % (20.0-45.0) 14.8 % (20.0-45.0) Monocytes (%) (Auto) % (1.0-10.0) % (1.0-10.0) 12.3 % (1.0-10.0) Eosinophils (%) (Auto) % (0.0-3.0) % (0.0-3.0) 1.3 % (0.0-3.0) Basophils (%) (Auto) % (0.0-2.0) % (0.0-2.0) 0.7 % (0.0-2.0) Differential Total Cells Counted 100 100 Neutrophils % (Manual) 72 % (45-75) 66 % (45-75) Lymphocytes % (Manual) 22 % (20-45) 17 % (20-45) Monocytes % (Manual) 6 % (1-10) 15 % (1-10) Eosinophils % (Manual) 0 % (0-3) 1 % (0-3) Basophils % (Manual) 0 % (0-2) 1 % (0-2) Band Neutrophils 0 % (0-8) 0 % (0-8) Platelet Estimate Decreased Decreased Platelet Morphology Normal Normal Hypochromasia 1+ 1+ Anisocytosis 1+ 2+ Sodium Level 147 MMOL/L (136-145) 145 MMOL/L (136-145) 139 MMOL/L (136-145) Potassium Level 3.4 MMOL/L (3.5-5.1) 3.1 MMOL/L (3.5-5.1) 3.3 MMOL/L (3.5-5.1) Chloride Level 116 MMOL/L (98-107) 113 MMOL/L (98-107) 112 MMOL/L (98-107) Carbon Dioxide Level 24 MMOL/L (21-32) 23 MMOL/L (21-32) 22 MMOL/L (21-32) Anion Gap 7 mmol/L (5-15) 9 mmol/L (5-15) 5 mmol/L (5-15) Blood Urea Nitrogen 38 mg/dL (7-18) 33 mg/dL (7-18) 30 mg/dL (7-18) Creatinine 1.7 MG/DL (0.55-1.30) 1.7 MG/DL (0.55-1.30) 1.8 MG/DL (0.55-1.30) Estimat Glomerular Filtration Rate mL/min (>60) mL/min (>60) mL/min (>60) Glucose Level 162 MG/DL (74-106) 194 MG/DL (74-106) 219 MG/DL (74-106) Calcium Level 7.2 MG/DL (8.5-10.1) 7.4 MG/DL (8.5-10.1) 7.2 MG/DL (8.5-10.1) Random Vancomycin Level 13.1 ug/mL 13.4 ug/mL Test 04/09/19 02:00 Height (Feet): 5 Height (Inches): 9.00 Weight (Pounds): 174 Objective Physical Exam Vital Signs: have been reviewed General Appearance: non-toxic, obese, Chronically Ill Respiratory: chest non-tender, lungs clear, mirian BSs, no rhonchi Cardiovascular: normal inspection, regular rate, rhythm, GI: normal inspection, soft Genitourinary: MANZANO+ Musculoskeletal: normal inspection Neurologic: normal inspection, alert Psychiatric: normal inspection Skin: other - Marcelo Shen MD Apr 09, 2019 06:20
--- NOTE | 2019-04-09 06:56 | NUR ---
HAND-OFF: Report given to Jumana GUTIERREZ.
--- NOTE | 2019-04-09 07:18 | NUR ---
NURSE NOTES: Pt resting in bed. awake, A/O x 1-2, forgetful, pts on 2L O2 via NC, sat 96-97%. Dressing on left side of the neck, CDI, no bleeding, richardson in place, draining clear yellow urine, pts on P200 bed, remains on Abx, and IVF, dressing on sacral , CDI, call light within reach, bed in low position, bed alarm on, fall precaution maintained. will continue to monitor.
[2019-04-09 07:42] LABS: BASOPHILS % (AUTO) 0.7 % (0.0-2.0); EOSINOPHILS % (AUTO) 0.6 % (0.0-3.0); HEMATOCRIT 27.8 % (42.0-52.0); LYMPHOCYTES % (AUTO) 13.2 % (20.0-45.0); MEAN CORPUSCULAR VOLUME 87 FL (80-99); MONOCYTES % (AUTO) 13.1 % (1.0-10.0); NEUTROPHILS % (AUTO) 72.4 % (45.0-75.0); PLATELET COUNT 104 K/UL (150-450); RED BLOOD COUNT 3.18 M/UL (4.70-6.10); RED CELL DISTRIBUTION WIDTH 16.2 % (11.6-14.8); WHITE BLOOD COUNT 4.7 K/UL (4.8-10.8)
[2019-04-09 07:58] LABS: ANION GAP 9 mmol/L (5-15); BLOOD UREA NITROGEN 26 mg/dL (7-18); CALCIUM 7.3 MG/DL (8.5-10.1); CARBON DIOXIDE 20 MMOL/L (21-32); CHLORIDE 112 MMOL/L (98-107); CREATININE 1.7 MG/DL (0.55-1.30); POTASSIUM 3.5 MMOL/L (3.5-5.1); SODIUM 141 MMOL/L (136-145)
[2019-04-09 08:00] VITALS: BP 116/81
[2019-04-09] MEDS: Heparin 5000 units/ml inj SUBQ SCH ×2 (09:00→21:00)
[2019-04-09] MEDS: Vancomycin oral 125mg/2.5ml ORAL SCH ×4 (09:09→21:47)
[2019-04-09] MEDS: Tamsulosin 0.4mg cap ORAL SCH ×2 (09:11→17:52)
[2019-04-09] MEDS: Carvedilol 12.5mg tab ORAL SCH ×2 (09:12→21:50)
--- NOTE | 2019-04-09 09:47 | General Progress Note ---
Assessment/Plan Problem List: (1) Invasive carcinoma of urinary bladder ICD Codes: C67.9 - Malignant neoplasm of bladder, unspecified SNOMED: 102755412 (2) Anemia ICD Codes: D64.9 - Anemia, unspecified SNOMED: 223321854 (3) Diabetes ICD Codes: E11.9 - Type 2 diabetes mellitus without complications SNOMED: 61696203 (4) HTN (hypertension) ICD Codes: I10 - Essential (primary) hypertension SNOMED: 64526128 (5) Urinary tract infection ICD Codes: N39.0 - Urinary tract infection, site not specified SNOMED: 53957026 (6) Bladder cancer ICD Codes: C67.9 - Malignant neoplasm of bladder, unspecified SNOMED: 878812590 Status: unchanged Assessment/Plan: pt diet eval 02 pulm tx abx uro f/u cbc bmp am promise ltach Subjective Constitutional: Reports: weakness Allergies: Coded Allergies: No Known Allergies (Unverified , 12/20/18) All Systems: reviewed and negative except above Subjective o2nc sleepy calm Objective Last 24 Hour Vital Signs Date Time Temp Pulse Resp B/P (MAP) Pulse Ox O2 Delivery O2 Flow Rate FiO2 04/09/19 09:12 69 116/81 04/09/19 09:00 Nasal Cannula 2.0 04/09/19 08:00 98.0 69 18 116/81 (93) 99 04/09/19 06:11 144/55 04/09/19 04:00 97.5 71 20 144/55 (84) 99 04/09/19 00:00 98.1 18 107/61 (76) 100 04/08/19 21:27 71 136/60 04/08/19 21:26 136/60 04/08/19 21:00 Nasal Cannula 2.0 04/08/19 20:09 97 Nasal Cannula 2.0 28 04/08/19 20:00 98.2 71 18 136/60 (85) 100 04/08/19 16:00 98.0 70 19 124/60 (81) 98 04/08/19 13:00 120/55 04/08/19 12:00 97.9 68 19 120/55 (76) 98 Intake and Output 04/08/19 04/09/19 19:00 07:00 Intake Total 570 ml 1335 ml Output Total 400 ml 650 ml Balance 170 ml 685 ml Intake Oral 360 ml 360 ml IV Total 210 ml 975 ml Output Urine Total 400 ml 650 ml # Voids 2 # Bowel Movements 2 1 Laboratory Tests 04/09/19 02:00: Stool Occult Blood [Pending] 04/09/19 06:10: White Blood Count 4.7L, Red Blood Count 3.18L, Hemoglobin 9.0L, Hematocrit 27.8L , Mean Corpuscular Volume 87, Mean Corpuscular Hemoglobin 28.4, Mean Corpuscular Hemoglobin Concent 32.6, Red Cell Distribution Width 16.2H, Platelet Count 104L, Mean Platelet Volume 9.3, Neutrophils (%) (Auto) 72.4, Lymphocytes (%) (Auto) 13.2L, Monocytes (%) (Auto) 13.1H, Eosinophils (%) (Auto ) 0.6, Basophils (%) (Auto) 0.7, Sodium Level 141, Potassium Level 3.5, Chloride Level 112H, Carbon Dioxide Level 20L, Anion Gap 9, Blood Urea Nitrogen 26H, Creatinine 1.7H, Estimat Glomerular Filtration Rate , Glucose Level 216H, Calcium Level 7.3L Height (Feet): 5 Height (Inches): 9.00 Weight (Pounds): 174 General Appearance: lethargic EENT: normal ENT inspection Neck: normal alignment Cardiovascular: normal peripheral pulses, normal rate, regular rhythm Respiratory/Chest: chest wall non-tender, lungs clear, normal breath sounds Abdomen: normal bowel sounds, non tender, soft Extremities: normal inspection Edema: no edema noted Arm (L), no edema noted Arm (R), no edema noted Leg (L), no edema noted Leg (R), no edema noted Pedal (L), no edema noted Pedal (R), no edema noted Generalized Neurologic: motor weakness Skin: normal pigmentation, warm/dry Jamie Gray DO Apr 09, 2019 09:47
--- NOTE | 2019-04-09 12:03 | Infectious Diseases Prog Note ---
Assessment/Plan Assessment/Plan 83yo gentleman with PMH below presents from half-way with confusion, wheezing and desaturation between 83-90%. Pt is oriented to self. Does not know where he is or why he is in the hospital. He initially says yes to abdominal pain, suprapubic pain, leg pain, arm pain but then denied it on second question. Denies fever, chills, cough, sob, diarrhea, dysuria. Unclear baseline. Pt recently had blood transfusion at [facility] 03/06. Pt was recently diagnosed with bladder cancer 12/2018 Afebrile On RA No leukocytosis No lactic acidosis Hypoxia at half-way, SP Possible PNA? flu swab negative CXR: Mild diffuse airspace opacities in both lungs. Lungs are underinflated.Lung findings are likely due to underinflation rather than pulmonary edema or atelectasis. Possible UTI? UA WBC TNTC, also moderate epithelial cells UCx: 50-60K amp sensitive E faecalis E faecalis bacteremia likely 2/ UTI 04/01 BCx: E faecalis 04/02 BCx: ngtd TTE without vegetation C diff + 04/04 Acute DVT pending IVC filter RIGHT LEG: Venous imaging reveals acute thrombus in the common to superficial femoral veins. LEFT LEG: Venous imaging reveals acute thrombus in the common to superficial femoral veins. SP IVC filter 04/06 Hypokalemia MRSA screen negative ANGELA on CKD CAD Bladder cancer HTN DM CVA Dyslipidemia CKD Anemia BPH Plan: continue cefepime #8/8(last dose 04/09) and vancomycin IV #8/14(tentative end date 04/15) and Vancomycin PO #6/14 f/u repeat bcx f/u MRSA screen aspiration precaution, elevate HOB monitor temp and CBC needs 48hrs diarrhea free to discontinue isolation Thank you for this consult. [facility] will continue to follow the patient with you. Subjective Allergies: Coded Allergies: No Known Allergies (Unverified , 12/20/18) Subjective afebrile no leukocytosis no diarrhea for 24hrs Objective Vital Signs Last 24 Hour Vital Signs Date Time Temp Pulse Resp B/P (MAP) Pulse Ox O2 Delivery O2 Flow Rate FiO2 04/09/19 09:12 69 116/81 04/09/19 09:00 Nasal Cannula 2.0 04/09/19 08:00 98.0 69 18 116/81 (93) 99 04/09/19 06:11 144/55 04/09/19 04:00 97.5 71 20 144/55 (84) 99 04/09/19 00:00 98.1 18 107/61 (76) 100 04/08/19 21:27 71 136/60 04/08/19 21:26 136/60 04/08/19 21:00 Nasal Cannula 2.0 04/08/19 20:09 97 Nasal Cannula 2.0 28 04/08/19 20:00 98.2 71 18 136/60 (85) 100 04/08/19 16:00 98.0 70 19 124/60 (81) 98 04/08/19 13:00 120/55 Height (Feet): 5 Height (Inches): 9.00 Weight (Pounds): 174 Laboratory Tests Test 04/09/19 02:00 04/09/19 06:10 Stool Occult Blood Positive (NEGATIVE) White Blood Count 4.7 K/UL (4.8-10.8) L Red Blood Count 3.18 M/UL (4.70-6.10) L Hemoglobin 9.0 G/DL (14.2-18.0) L Hematocrit 27.8 % (42.0-52.0) L Mean Corpuscular Volume 87 FL (80-99) Mean Corpuscular Hemoglobin 28.4 PG (27.0-31.0) Mean Corpuscular Hemoglobin Concent 32.6 G/DL (32.0-36.0) Red Cell Distribution Width 16.2 % (11.6-14.8) H Platelet Count 104 K/UL (150-450) L Mean Platelet Volume 9.3 FL (6.5-10.1) Neutrophils (%) (Auto) 72.4 % (45.0-75.0) Lymphocytes (%) (Auto) 13.2 % (20.0-45.0) L Monocytes (%) (Auto) 13.1 % (1.0-10.0) H Eosinophils (%) (Auto) 0.6 % (0.0-3.0) Basophils (%) (Auto) 0.7 % (0.0-2.0) Sodium Level 141 MMOL/L (136-145) Potassium Level 3.5 MMOL/L (3.5-5.1) Chloride Level 112 MMOL/L (98-107) H Carbon Dioxide Level 20 MMOL/L (21-32) L Anion Gap 9 mmol/L (5-15) Blood Urea Nitrogen 26 mg/dL (7-18) H Creatinine 1.7 MG/DL (0.55-1.30) H Estimat Glomerular Filtration Rate mL/min (>60) Glucose Level 216 MG/DL (74-106) H Calcium Level 7.3 MG/DL (8.5-10.1) L Current Medications Medications (Trade) Dose Ordered Sig/Sallie Route PRN Reason Start Time Stop Time Status Last Admin Dose Admin Acetaminophen (Tylenol) 650 mg Q4H PRN ORAL fever 04/06/19 14:00 05/01/19 13:59 Allopurinol (Allopurinol) 300 mg DAILY ORAL 04/07/19 09:00 05/03/19 09:59 04/09/19 09:13 Carvedilol (Coreg) 12.5 mg EVERY 12 HOURS ORAL 04/06/19 21:00 05/01/19 08:59 04/09/19 09:12 Cefepime HCl 1 gm/ Dextrose 55 ml @ 110 mls/hr Q24H IVPB 04/08/19 15:00 04/09/19 16:00 04/08/19 15:53 Dextrose (Dextrose 50%) 25 ml Q30M PRN IV Hypoglycemia 04/06/19 14:00 05/01/19 10:29 Dextrose (Dextrose 50%) 50 ml Q30M PRN IV Hypoglycemia 04/06/19 14:00 05/01/19 10:29 Dextrose/ Electrolytes 1,000 ml @ 75 mls/hr [id number] IV 04/06/19 13:30 05/04/19 09:59 04/09/19 08:10 Heparin Sodium (Porcine) (Heparin 5000 units/ml) 5,000 units EVERY 12 HOURS SUBQ 04/06/19 21:00 05/01/19 08:59 Hydralazine HCl (Apresoline) 50 mg Q8HR ORAL 04/06/19 14:00 05/01/19 13:59 04/09/19 06:11 Insulin Aspart (NovoLOG) BEFORE MEALS AND HS SUBQ 04/06/19 16:30 05/01/19 11:29 04/09/19 06:17 Minoxidil (Loniten) 2.5 mg Q4H PRN ORAL bp over 165 syst 04/06/19 14:00 05/01/19 13:59 Ondansetron HCl (Zofran) 4 mg Q6H PRN IVP Nausea & Vomiting 04/06/19 14:00 05/01/19 07:59 Potassium Chloride (K-Dur) 40 meq TWICE A DAY ORAL 04/08/19 18:00 05/08/19 17:59 04/09/19 09:11 Quetiapine Fumarate (SEROqueL) 50 mg TWICE A DAY ORAL 04/06/19 18:00 05/03/19 17:59 04/09/19 09:09 Tamsulosin HCl (Flomax) 0.4 mg BID ORAL 04/06/19 18:00 05/01/19 12:59 04/09/19 09:11 Temazepam (Restoril) 15 mg HSPRN PRN ORAL Insomnia 04/06/19 14:00 04/13/19 13:59 Vancomycin HCl (Firvanq) 125 mg FOUR TIMES A DAY ORAL 04/06/19 18:00 04/11/19 12:59 04/09/19 09:09 Vancomycin HCl (Vanco rx to dose) 1 ea DAILY PRN MISC Per rx protocol 04/07/19 09:00 05/01/19 08:14 Jyoti Piedra M.D. Apr 09, 2019 12:02
[2019-04-09 12:54] VITALS: BP 127/88
--- NOTE | 2019-04-09 13:24 | GI Progress Note ---
Assessment/Plan Problems: (1) C. difficile colitis ICD Codes: A04.72 - Enterocolitis due to Clostridium difficile, not specified as recurrent SNOMED: 271801245 (2) Dehydration ICD Codes: E86.0 - Dehydration SNOMED: 20384919 (3) Anemia ICD Codes: D64.9 - Anemia, unspecified SNOMED: 097573963 Status: unchanged Status Narrative Discussed with Dr. Valiente. Assessment/Plan fecal occult blood stool positive C. difficile positive Recommend EGD and colonoscopy at some point to evaluate possible GI bleed, will hold at this time given active C. difficile colitis. Antibiotics per infectious diseases off PPI IV and p.o. hydration plus electrolyte correction poor po intake Monitor H&H, PRN transfusions po vanco for C.diff off all laxatives We will follow with additional recommendations on a daily basis Ensure s/p IVC filter placement The patient was seen and examined at bedside and all new and available data was reviewed in the patients chart. I agree with the above findings, impression and plan. (Patient seen earlier today. Signature stamp does not reflect patient encounter time.). - Terell Valiente MD Subjective Gastrointestinal/Abdominal: Reports: no symptoms Subjective still has diarrhea Objective Last 24 Hour Vital Signs Date Time Temp Pulse Resp B/P (MAP) Pulse Ox O2 Delivery O2 Flow Rate FiO2 04/09/19 12:54 97.9 73 18 127/88 (101) 96 04/09/19 09:12 69 116/81 04/09/19 09:00 Nasal Cannula 2.0 04/09/19 08:00 98.0 69 18 116/81 (93) 99 04/09/19 06:11 144/55 04/09/19 04:00 97.5 71 20 144/55 (84) 99 04/09/19 00:00 98.1 18 107/61 (76) 100 04/08/19 21:27 71 136/60 04/08/19 21:26 136/60 04/08/19 21:00 Nasal Cannula 2.0 04/08/19 20:09 97 Nasal Cannula 2.0 28 04/08/19 20:00 98.2 71 18 136/60 (85) 100 04/08/19 16:00 98.0 70 19 124/60 (81) 98 Intake and Output 04/08/19 04/09/19 18:59 06:59 Intake Total 570 ml 1335 ml Output Total 400 ml 650 ml Balance 170 ml 685 ml Intake Oral 360 ml 360 ml IV Total 210 ml 975 ml Output Urine Total 400 ml 650 ml # Voids 2 # Bowel Movements 2 1 Laboratory Tests Test 04/09/19 02:00 04/09/19 06:10 Stool Occult Blood Positive (NEGATIVE) White Blood Count 4.7 K/UL (4.8-10.8) L Red Blood Count 3.18 M/UL (4.70-6.10) L Hemoglobin 9.0 G/DL (14.2-18.0) L Hematocrit 27.8 % (42.0-52.0) L Mean Corpuscular Volume 87 FL (80-99) Mean Corpuscular Hemoglobin 28.4 PG (27.0-31.0) Mean Corpuscular Hemoglobin Concent 32.6 G/DL (32.0-36.0) Red Cell Distribution Width 16.2 % (11.6-14.8) H Platelet Count 104 K/UL (150-450) L Mean Platelet Volume 9.3 FL (6.5-10.1) Neutrophils (%) (Auto) 72.4 % (45.0-75.0) Lymphocytes (%) (Auto) 13.2 % (20.0-45.0) L Monocytes (%) (Auto) 13.1 % (1.0-10.0) H Eosinophils (%) (Auto) 0.6 % (0.0-3.0) Basophils (%) (Auto) 0.7 % (0.0-2.0) Sodium Level 141 MMOL/L (136-145) Potassium Level 3.5 MMOL/L (3.5-5.1) Chloride Level 112 MMOL/L (98-107) H Carbon Dioxide Level 20 MMOL/L (21-32) L Anion Gap 9 mmol/L (5-15) Blood Urea Nitrogen 26 mg/dL (7-18) H Creatinine 1.7 MG/DL (0.55-1.30) H Estimat Glomerular Filtration Rate mL/min (>60) Glucose Level 216 MG/DL (74-106) H Calcium Level 7.3 MG/DL (8.5-10.1) L Height (Feet): 5 Height (Inches): 9.00 Weight (Pounds): 174 General Appearance: no apparent distress Cardiovascular: normal rate Respiratory/Chest: normal breath sounds, no respiratory distress Abdominal Exam: soft Omer Cunningham NP Apr 09, 2019 13:24
--- NOTE | 2019-04-09 13:44 | Nephrology Progress Note ---
Assessment/Plan Problem List: (1) ARF (acute renal failure) (2) Acute on chronic renal insufficiency (3) Diabetes (4) HTN (hypertension) (5) Bladder cancer (6) Invasive carcinoma of urinary bladder (7) Anemia Assessment Acute renal failure ? Superimposed CKD Bladder Mass / h/o Hematuria HTN DM Anemia, previous transfusions s/p Cystoscopy 12/28 Plan hardly takes PO meds med-surg favor transfusion Hydrate richardson IV Iron K Supplement BP management, BP med adjustment Monitor lytes and renal parameters Kidney ESDRAS , no hydro per orders Previous Uro note: Tolerated bladder tumor resection well. Unfortunately greater part of the bladder is involved and essentially replaced all normal bladder with tumor. I can not resect all the tumors. Patient needs a radical cystectomy (removal of bladder) or radiation/chemotherapy at higher level of care. 1. recommend transfer to higher level of care for cystectomy 2. continue richardson, keep irrigation to maintain light pink urine. Multiple mass like lesions within the bladder. Further evaluation with cystoscopy is recommended to evaluate for possible neoplasm. Multiple parapelvic renal cysts Subjective ROS Limited/Unobtainable: No Constitutional: Reports: malaise, weakness Objective Objective Last 24 Hour Vital Signs Date Time Temp Pulse Resp B/P (MAP) Pulse Ox O2 Delivery O2 Flow Rate FiO2 04/09/19 12:54 97.9 73 18 127/88 (101) 96 04/09/19 09:12 69 116/81 04/09/19 09:00 Nasal Cannula 2.0 04/09/19 08:00 98.0 69 18 116/81 (93) 99 04/09/19 06:11 144/55 04/09/19 04:00 97.5 71 20 144/55 (84) 99 04/09/19 00:00 98.1 18 107/61 (76) 100 04/08/19 21:27 71 136/60 04/08/19 21:26 136/60 04/08/19 21:00 Nasal Cannula 2.0 04/08/19 20:09 97 Nasal Cannula 2.0 28 04/08/19 20:00 98.2 71 18 136/60 (85) 100 04/08/19 16:00 98.0 70 19 124/60 (81) 98 Intake and Output 04/08/19 04/09/19 18:59 06:59 Intake Total 570 ml 1335 ml Output Total 400 ml 650 ml Balance 170 ml 685 ml Intake Oral 360 ml 360 ml IV Total 210 ml 975 ml Output Urine Total 400 ml 650 ml # Voids 2 # Bowel Movements 2 1 Laboratory Tests 04/09/19 02:00: Stool Occult Blood Positive 04/09/19 06:10: White Blood Count 4.7L, Red Blood Count 3.18L, Hemoglobin 9.0L, Hematocrit 27.8L , Mean Corpuscular Volume 87, Mean Corpuscular Hemoglobin 28.4, Mean Corpuscular Hemoglobin Concent 32.6, Red Cell Distribution Width 16.2H, Platelet Count 104L, Mean Platelet Volume 9.3, Neutrophils (%) (Auto) 72.4, Lymphocytes (%) (Auto) 13.2L, Monocytes (%) (Auto) 13.1H, Eosinophils (%) (Auto ) 0.6, Basophils (%) (Auto) 0.7, Sodium Level 141, Potassium Level 3.5, Chloride Level 112H, Carbon Dioxide Level 20L, Anion Gap 9, Blood Urea Nitrogen 26H, Creatinine 1.7H, Estimat Glomerular Filtration Rate , Glucose Level 216H, Calcium Level 7.3L Height (Feet): 5 Height (Inches): 9.00 Weight (Pounds): 174 General Appearance: no apparent distress Cardiovascular: normal rate Respiratory/Chest: lungs clear Objective no change Russell Sofia MD Apr 09, 2019 13:44
--- NOTE | 2019-04-09 14:54 | Pulmonology Progress Note ---
Assessment/Plan Problems: (1) C. difficile colitis (2) Acute respiratory failure with hypoxemia (3) Acute deep vein thrombosis (DVT) of both femoral veins (4) Thrombocytopenia (5) Invasive carcinoma of urinary bladder (6) CAD (coronary artery disease) (7) Anemia (8) Diabetes (9) HTN (hypertension) (10) Bladder cancer Assessment/Plan renal function improving V/q scan showed low probability PE venous studies of legs showed acute DVT bilaterally IVC filter done y respiratory treatment check electrolytes titrate fiio2 to sat of 92% dvt prophylaxis. renal function improving Subjective ROS Limited/Unobtainable: No Constitutional: Reports: no symptoms HEENT: Repors: no symptoms Allergies: Coded Allergies: No Known Allergies (Unverified , 12/20/18) Objective Last 24 Hour Vital Signs Date Time Temp Pulse Resp B/P (MAP) Pulse Ox O2 Delivery O2 Flow Rate FiO2 04/09/19 12:54 97.9 73 18 127/88 (101) 96 04/09/19 09:12 69 116/81 04/09/19 09:00 Nasal Cannula 2.0 04/09/19 08:00 98.0 69 18 116/81 (93) 99 04/09/19 06:11 144/55 04/09/19 04:00 97.5 71 20 144/55 (84) 99 04/09/19 00:00 98.1 18 107/61 (76) 100 04/08/19 21:27 71 136/60 04/08/19 21:26 136/60 04/08/19 21:00 Nasal Cannula 2.0 04/08/19 20:09 97 Nasal Cannula 2.0 28 04/08/19 20:00 98.2 71 18 136/60 (85) 100 04/08/19 16:00 98.0 70 19 124/60 (81) 98 Intake and Output 04/08/19 04/09/19 18:59 06:59 Intake Total 570 ml 1335 ml Output Total 400 ml 650 ml Balance 170 ml 685 ml Intake Oral 360 ml 360 ml IV Total 210 ml 975 ml Output Urine Total 400 ml 650 ml # Voids 2 # Bowel Movements 2 1 Objective HEENT: normocephalic, atraumatic Respiratory/Chest: chest wall non-tender, normal breath sounds Cardiovascular: normal rate, regular rhythm Abdomen: normal bowel sounds, soft, non tender Genitourinary: normal external genitalia Extremities: no cyanosis Skin: no rash, no lesions Laboratory Tests 04/09/19 02:00: Stool Occult Blood Positive 04/09/19 06:10: White Blood Count 4.7L, Red Blood Count 3.18L, Hemoglobin 9.0L, Hematocrit 27.8L , Mean Corpuscular Volume 87, Mean Corpuscular Hemoglobin 28.4, Mean Corpuscular Hemoglobin Concent 32.6, Red Cell Distribution Width 16.2H, Platelet Count 104L, Mean Platelet Volume 9.3, Neutrophils (%) (Auto) 72.4, Lymphocytes (%) (Auto) 13.2L, Monocytes (%) (Auto) 13.1H, Eosinophils (%) (Auto ) 0.6, Basophils (%) (Auto) 0.7, Sodium Level 141, Potassium Level 3.5, Chloride Level 112H, Carbon Dioxide Level 20L, Anion Gap 9, Blood Urea Nitrogen 26H, Creatinine 1.7H, Estimat Glomerular Filtration Rate , Glucose Level 216H, Calcium Level 7.3L Current Medications Medications (Trade) Dose Ordered Sig/Sallie Route PRN Reason Start Time Stop Time Status Last Admin Dose Admin Acetaminophen (Tylenol) 650 mg Q4H PRN ORAL fever 04/06/19 14:00 05/01/19 13:59 Allopurinol (Allopurinol) 300 mg DAILY ORAL 04/07/19 09:00 05/03/19 09:59 04/09/19 09:13 Carvedilol (Coreg) 12.5 mg EVERY 12 HOURS ORAL 04/06/19 21:00 05/01/19 08:59 04/09/19 09:12 Cefepime HCl 1 gm/ Dextrose 55 ml @ 110 mls/hr Q24H IVPB 04/08/19 15:00 04/09/19 16:00 04/08/19 15:53 Dextrose (Dextrose 50%) 25 ml Q30M PRN IV Hypoglycemia 04/06/19 14:00 05/01/19 10:29 Dextrose (Dextrose 50%) 50 ml Q30M PRN IV Hypoglycemia 04/06/19 14:00 05/01/19 10:29 Dextrose/ Electrolytes 1,000 ml @ 75 mls/hr [id number] IV 04/06/19 13:30 05/04/19 09:59 04/09/19 08:10 Heparin Sodium (Porcine) (Heparin 5000 units/ml) 5,000 units EVERY 12 HOURS SUBQ 04/06/19 21:00 05/01/19 08:59 Hydralazine HCl (Apresoline) 50 mg Q8HR ORAL 04/06/19 14:00 05/01/19 13:59 04/09/19 06:11 Insulin Aspart (NovoLOG) BEFORE MEALS AND HS SUBQ 04/06/19 16:30 05/01/19 11:29 04/09/19 12:38 Minoxidil (Loniten) 2.5 mg Q4H PRN ORAL bp over 165 syst 04/06/19 14:00 05/01/19 13:59 Ondansetron HCl (Zofran) 4 mg Q6H PRN IVP Nausea & Vomiting 04/06/19 14:00 05/01/19 07:59 Potassium Chloride 100 ml @ 100 mls/hr Q1H IV 04/09/19 14:00 04/09/19 17:59 Quetiapine Fumarate (SEROqueL) 50 mg TWICE A DAY ORAL 04/06/19 18:00 05/03/19 17:59 04/09/19 09:09 Tamsulosin HCl (Flomax) 0.4 mg BID ORAL 04/06/19 18:00 05/01/19 12:59 04/09/19 09:11 Temazepam (Restoril) 15 mg HSPRN PRN ORAL Insomnia 04/06/19 14:00 04/13/19 13:59 Vancomycin HCl (Firvanq) 125 mg FOUR TIMES A DAY ORAL 04/06/19 18:00 04/11/19 12:59 04/09/19 12:33 Vancomycin HCl (Vanco rx to dose) 1 ea DAILY PRN MISC Per rx protocol 04/07/19 09:00 05/01/19 08:14 Adam Moyer MD Apr 09, 2019 14:54
[2019-04-09 16:00] VITALS: BP 154/61
--- NOTE | 2019-04-09 16:09 | NUR ---
HAND-OFF: Report given to Nathen GUTIERREZ.
--- NOTE | 2019-04-09 16:10 | NUR ---
NURSE NOTES: Received report from MATT Denney. Pt is A/Ox1-2, sleeping in bed, on RA, IV intact and running KCl. Sacral dressing intact, dressing on Right side of the nect intact. Oconnor in place and draining clear, yellow urine. Bed locked in lowest position, side rails up, call light within reach. Will continue to monitor.
[2019-04-09] MEDS: Cefepime HCl 1 GM in D5W 55 ML IVPB SCH (16:55)
[2019-04-09] MEDS ORDERED: Cefepime HCl 1 GM in D5W 55 ML IVPB SCH (17:00)
--- NOTE | 2019-04-09 18:47 | Surgery Progress Note ---
Surgery Progress Note Subjective Additional Comments does not take in much as far as meds and oral intake no complaints otherwise comfortable appearing scrotal lesions slow to improve Objective Last 24 Hour Vital Signs Date Time Temp Pulse Resp B/P (MAP) Pulse Ox O2 Delivery O2 Flow Rate FiO2 04/09/19 16:00 98.7 70 18 154/61 (92) 99 04/09/19 12:54 97.9 73 18 127/88 (101) 96 04/09/19 09:12 69 116/81 04/09/19 09:00 Nasal Cannula 2.0 04/09/19 08:00 98.0 69 18 116/81 (93) 99 04/09/19 06:11 144/55 04/09/19 04:00 97.5 71 20 144/55 (84) 99 04/09/19 00:00 98.1 18 107/61 (76) 100 04/08/19 21:27 71 136/60 04/08/19 21:26 136/60 04/08/19 21:00 Nasal Cannula 2.0 04/08/19 20:09 97 Nasal Cannula 2.0 28 04/08/19 20:00 98.2 71 18 136/60 (85) 100 I&O Intake and Output 04/08/19 04/09/19 19:00 07:00 Intake Total 570 ml 1335 ml Output Total 400 ml 650 ml Balance 170 ml 685 ml Intake Oral 360 ml 360 ml IV Total 210 ml 975 ml Output Urine Total 400 ml 650 ml # Voids 2 # Bowel Movements 2 1 Dressing: saturated Wound: other Drains: other Cardiovascular: RSR Respiratory: decreased breath sounds Abdomen: soft, present bowel sounds Extremities: no cyanosis Laboratory Tests Test 04/09/19 02:00 04/09/19 06:10 Stool Occult Blood Positive (NEGATIVE) White Blood Count 4.7 K/UL (4.8-10.8) L Red Blood Count 3.18 M/UL (4.70-6.10) L Hemoglobin 9.0 G/DL (14.2-18.0) L Hematocrit 27.8 % (42.0-52.0) L Mean Corpuscular Volume 87 FL (80-99) Mean Corpuscular Hemoglobin 28.4 PG (27.0-31.0) Mean Corpuscular Hemoglobin Concent 32.6 G/DL (32.0-36.0) Red Cell Distribution Width 16.2 % (11.6-14.8) H Platelet Count 104 K/UL (150-450) L Mean Platelet Volume 9.3 FL (6.5-10.1) Neutrophils (%) (Auto) 72.4 % (45.0-75.0) Lymphocytes (%) (Auto) 13.2 % (20.0-45.0) L Monocytes (%) (Auto) 13.1 % (1.0-10.0) H Eosinophils (%) (Auto) 0.6 % (0.0-3.0) Basophils (%) (Auto) 0.7 % (0.0-2.0) Sodium Level 141 MMOL/L (136-145) Potassium Level 3.5 MMOL/L (3.5-5.1) Chloride Level 112 MMOL/L (98-107) H Carbon Dioxide Level 20 MMOL/L (21-32) L Anion Gap 9 mmol/L (5-15) Blood Urea Nitrogen 26 mg/dL (7-18) H Creatinine 1.7 MG/DL (0.55-1.30) H Estimat Glomerular Filtration Rate mL/min (>60) Glucose Level 216 MG/DL (74-106) H Calcium Level 7.3 MG/DL (8.5-10.1) L Plan Problems: (1) Scrotal lesion Assessment & Plan: This is a 83-year-old male with multiple medical morbidities who was identified to have abnormal scrotal lesions on admission. There are 3 lesions on the scrotum clearly identified and likely old small abscesses or carbuncles which have healed slowly. Patient is incontinent With leakage of stool identified around the scrotal sac on the posterior aspect where the lesions are located. No signs of active infection no active drainage nontender skin macerated Recommend washing the scrotum daily with normal saline. Apply skin protectant and moisture absorbent dressing daily and as needed saturation We will follow and monitor for healing (2) Sacral decubitus ulcer, stage III Assessment & Plan: Pt presented on admission with multiple pressure injuries. Full thickness sacral pressure injury. Base of wound is viable with an area that is purple in center. Semi-detached black borders(L)9.5cm x (W)4.9cm x(D) 0.2cm .Non-blanching erythema periwound. Multiple pressure injuries Scrotum. Base of pressure injury R scrotum 75% pink granulation,25% slough. Edges pink,flat and adherent to base of wound.(L)2.2cm x (W)0.9cm.Ful thickness pressure injury center -base of scrotum (L)0.5cm x (W) 0.4cm. Base of wound has 100% slough. Full thickness pressure injury L scrotum ( L)2cm x (W01.1cm. Base of wound has 90% slough ,10% viable. Reabsorbing blood blister R heel heel. Base of wound black (L)2.2cm x (W)2cm with red tinged borders with fluctuance. (L)5.5cm x(W)5cm. Reabsorbing Blood Blister L heel. Base of wound is black ,dry with maroon and fluctuant borders.(L)6.5cm x (W)6cm Abd folds are moist and dark but is intact. Tx.Plan: Cleanse Sacral wound with Saline. Apply Therahoney. Apply Moisture Barrier Paste periwound. Cover with Optifoam drsg Daily and prn. Cleanse wounds on Scrotum with saline. Apply Therhaoney to each wound. Cover with Optifoam drsg. Change Daily and prn. Apply Moisture Barrier to Abd folds and Bilat groin Daily and prn. APM/NOLBERTO Mattress overlay. Reposition at least every 2hours or as tolerated. Off-load heels with pillow. (3) Bladder cancer (4) C. difficile colitis Assessment & Plan: blood cultures negative C diff positive - discussed with ID cont abx labs noted and improved exam stable cont current tx Bebeto Pepe Apr 09, 2019 18:47
--- NOTE | 2019-04-09 19:39 | NUR ---
HAND-OFF: Report given to MATT Leung.
--- NOTE | 2019-04-09 19:40 | NUR ---
NURSE NOTES: Received report from MATT Sena. Patient a/a/o x 1-2, verbally responsive. Breathing unlabored on room air without distress, O2 Saturation at 99%. IV noted on left hand intact and patent running fluid as ordered and covered with kerlix for patient safety. Patient on P200 mattress. Oconnor intact draining urine. Bed placed at the lowest with alarm, brake, and siderails up for safety. Call light placed within reach. Will continue to monitor and provide care as ordered.
[2019-04-10] VITALS: BP 140/84
--- NOTE | 2019-04-10 02:00 | NUR ---
NURSE NOTES: Patient had BM x1, slightly mucous-like brown stool. Cleaned and provided new dressing change as ordered. Patient tolerated the procedure well. Will continue to monitor and provide care as ordered.
[2019-04-10 04:00] VITALS: BP 148/55
[2019-04-10] MEDS: HydrALAZINE 50mg tab ORAL SCH ×3 (05:54→22:18)
--- NOTE | 2019-04-10 06:02 | Hematology/Onc Progress Note ---
Assessment/Plan Assessment/Plan Assessment and Recs: # ACUTE DEEP VEIN THROMBOSIS BILATERAL, new onset, from 04/02/19 s/p IVC filter on 05/06/[address] Arroyo --> reviewed images with radiology, goes from common to proximal common femoral v ein --> V/Q scan --> shows low prob pe --> given low h/h and low plts, recommend ivc filter placement, consent has been signed --> cleared with other consultants, zen RN --> s/p IVC filter by Dr Arroyo 04/06 --> hold off on anticoagulation until h/h other counts stabilize # Bladder cancer requires resection v chemo/xrt -- presented with multi masses CT shows Scattered eccentric mural thickening/masses in the urinary bladder wall , correlating with findings on recent ultrasound. No significant perivesical stranding. Recommend further evaluation with cystoscopy. --> urology consulted, appreciate input --> Uro note from prior admission: Tolerated bladder tumor resection well. Unfortunately greater part of the bladder is involved and essentially replaced all normal bladder with tumor. I can not resect all the tumors. --> may consider chemo/radiation as outpatient --> path does confirm malignancy --> CBI as needed per uro # Pancytopenia - potential causes multifactorial, evaluate liver and viral etiologies to begin, also could be related to underlying medications patient has received. --> Hep panel and HIV --> NEGATIVE --> US abd showed bladder masses--> ct reviewed as well --> Peripheral smear ordered to evaluate for blasts /schistocytes --> none noted --> abx and other meds have been reviewed --> ok for ppx if plt >50k w/ either heparin or lovenox --> trend plt >92-->104-->86-->73->117k --> wbc trend 3.7 # Anemia of iron deficiency likely due to hematuria --> iv iron x 5 days low ferritin, completed from prior admission --> likely due to hematuria --> have started on ivf and consider uro prn cysto --> hgb goal >7 --> cont po folic acid --> hgb trend: 7.4 # Acute renal injury --> cr >1.4-->1.4-->1.7-->1.5-->3.7->1.8 --> per renal recs --> volume expansion # HTN --> cards is following, appreciate recs # C. diff colitis --> on po vanc # Hematuria # UTI (urinary tract infection) --> per id on abx, cefe/vanc # Scrotal lesions --> per surg eval --> as per wound care # Dehydration # Dvt ppx heparin sqand ivf filter The timing of this note does not necessarily reflect the time of the patient was seen. GREATLY APPRECIATE CONSULTATION. Subjective HEENT: Denies: no symptoms, eye pain, blurred vision, tearing, double vision, ear pain, ear discharge, nose pain, nose congestion, throat pain, throat swelling, mouth pain, mouth swelling, other Cardiovascular: Denies: no symptoms, chest pain, edema, irregular heart rate, lightheadedness, palpitations, syncope, other Respiratory: Denies: no symptoms, cough, shortness of breath, SOB with excertion, SOB at rest, sputum, wheezing, other Gastrointestinal/Abdominal: Denies: no symptoms, abdomen distended, abdominal pain, black stools, tarry stools, blood in stool, constipated, diarrhea, difficulty swallowing, nausea, poor appetite, poor fluid intake, rectal bleeding , vomiting, other Genitourinary: Denies: no symptoms, burning, discharge, frequency, flank pain, hematuria, incontinence, pain, urgency, other Neurologic/Psychiatric: Denies: no symptoms, anxiety, depressed, emotional problems, headache, numbness, paresthesia, pre-existing deficit, seizure, tingling, tremors, weakness, other Endocrine: Denies: no symptoms, excessive sweating, flushing, intolerance to cold, intolerance to heat, increased hunger, increased thirst, increased urine, unexplained weight gain, unexplained weight loss, other Hematologic/Lymphatic: Denies: no symptoms, anemia, easy bleeding, easy bruising, adenopathy, other Allergies: Coded Allergies: No Known Allergies (Unverified , 12/20/18) All Systems: reviewed and negative except above Subjective 04/03: s/p 1 bag iv iron, hgb 7.4, repeat cbc tomorrow, consent for ivc filter has been signed 04/04: is pending clearance of blood cultures, have dw id, potentially thurs for ivcf placement 04/05: no events, still pending ivc filter, have dw rn and id 04/06: no events, no bleeding, pending filter, as per id clearance 04/08: tolerated ivc filter well on 04/06, no events, no bleeding reported 04/09: no events, remains confused is on 2l nc, zen rn 04/10: no events, with lesion noted on penile shaft, no bleeding noted Objective Objective Current Medications Medications (Trade) Dose Ordered Sig/Sallie Route PRN Reason Start Time Stop Time Status Last Admin Dose Admin Acetaminophen (Tylenol) 650 mg Q4H PRN ORAL fever 04/06/19 14:00 05/01/19 13:59 Allopurinol (Allopurinol) 300 mg DAILY ORAL 04/07/19 09:00 05/03/19 09:59 04/09/19 09:13 Carvedilol (Coreg) 12.5 mg EVERY 12 HOURS ORAL 04/06/19 21:00 05/01/19 08:59 04/09/19 21:50 Dextrose (Dextrose 50%) 25 ml Q30M PRN IV Hypoglycemia 04/06/19 14:00 05/01/19 10:29 Dextrose (Dextrose 50%) 50 ml Q30M PRN IV Hypoglycemia 04/06/19 14:00 05/01/19 10:29 Dextrose/ Electrolytes 1,000 ml @ 75 mls/hr [id number] IV 04/06/19 13:30 05/04/19 09:59 04/09/19 08:10 Heparin Sodium (Porcine) (Heparin 5000 units/ml) 5,000 units EVERY 12 HOURS SUBQ 04/06/19 21:00 05/01/19 08:59 Hydralazine HCl (Apresoline) 50 mg Q8HR ORAL 04/06/19 14:00 05/01/19 13:59 04/10/19 05:54 Insulin Aspart (NovoLOG) BEFORE MEALS AND HS SUBQ 04/06/19 16:30 05/01/19 11:29 04/09/19 21:47 Minoxidil (Loniten) 2.5 mg Q4H PRN ORAL bp over 165 syst 04/06/19 14:00 05/01/19 13:59 Ondansetron HCl (Zofran) 4 mg Q6H PRN IVP Nausea & Vomiting 04/06/19 14:00 05/01/19 07:59 Quetiapine Fumarate (SEROqueL) 50 mg TWICE A DAY ORAL 04/06/19 18:00 05/03/19 17:59 04/09/19 09:09 Tamsulosin HCl (Flomax) 0.4 mg BID ORAL 04/06/19 18:00 05/01/19 12:59 04/09/19 09:11 Temazepam (Restoril) 15 mg HSPRN PRN ORAL Insomnia 04/06/19 14:00 04/13/19 13:59 Vancomycin HCl (Firvanq) 125 mg FOUR TIMES A DAY ORAL 04/06/19 18:00 04/11/19 12:59 04/09/19 21:47 Vancomycin HCl (Vanco rx to dose) 1 ea DAILY PRN MISC Per rx protocol 04/07/19 09:00 05/01/19 08:14 Last 24 Hour Vital Signs Date Time Temp Pulse Resp B/P (MAP) Pulse Ox O2 Delivery O2 Flow Rate FiO2 04/10/19 05:54 121/54 04/10/19 04:00 98.3 71 18 148/55 (86) 99 04/10/19 00:00 98.4 68 17 140/84 (102) 99 04/09/19 22:53 143/77 04/09/19 21:50 71 134/70 04/09/19 21:00 Room Air 04/09/19 20:00 97.9 71 17 99 04/09/19 16:00 98.7 70 18 154/61 (92) 99 04/09/19 12:54 97.9 73 18 127/88 (101) 96 04/09/19 09:12 69 116/81 04/09/19 09:00 Nasal Cannula 2.0 04/09/19 08:00 98.0 69 18 116/81 (93) 99 04/09/19 06:11 144/55 04/09/19 04:00 97.5 71 20 144/55 (84) 99 04/09/19 00:00 98.1 18 107/61 (76) 100 04/08/19 21:27 71 136/60 04/08/19 21:26 136/60 04/08/19 21:00 Nasal Cannula 2.0 04/08/19 20:09 97 Nasal Cannula 2.0 28 04/08/19 20:00 98.2 71 18 136/60 (85) 100 04/08/19 16:00 98.0 70 19 124/60 (81) 98 04/08/19 13:00 120/55 04/08/19 12:00 97.9 68 19 120/55 (76) 98 04/08/19 09:09 85 136/64 04/08/19 09:00 Nasal Cannula 2.0 04/08/19 08:52 98.0 85 19 136/64 (88) 98 Intake and Output 04/09/19 04/10/19 19:00 07:00 Intake Total 875 ml 675 ml Output Total 800 ml Balance 75 ml 675 ml Intake Oral 800 ml IV Total 75 ml 675 ml Output Urine Total 800 ml # Bowel Movements 3 Labs Test 04/07/19 10:30 04/08/19 06:50 04/09/19 02:00 04/09/19 06:10 White Blood Count 5.0 K/UL (4.8-10.8) 4.7 K/UL (4.8-10.8) 4.7 K/UL (4.8-10.8) Red Blood Count 3.56 M/UL (4.70-6.10) 3.50 M/UL (4.70-6.10) 3.18 M/UL (4.70-6.10) Hemoglobin 10.0 G/DL (14.2-18.0) 10.0 G/DL (14.2-18.0) 9.0 G/DL (14.2-18.0) Hematocrit 32.2 % (42.0-52.0) 31.5 % (42.0-52.0) 27.8 % (42.0-52.0) Mean Corpuscular Volume 90 FL (80-99) 90 FL (80-99) 87 FL (80-99) Mean Corpuscular Hemoglobin 28.1 PG (27.0-31.0) 28.6 PG (27.0-31.0) 28.4 PG (27.0-31.0) Mean Corpuscular Hemoglobin Concent 31.1 G/DL (32.0-36.0) 31.8 G/DL (32.0-36.0) 32.6 G/DL (32.0-36.0) Red Cell Distribution Width 18.2 % (11.6-14.8) 18.1 % (11.6-14.8) 16.2 % (11.6-14.8) Platelet Count 89 K/UL (150-450) 117 K/UL (150-450) 104 K/UL (150-450) Mean Platelet Volume 8.0 FL (6.5-10.1) 9.5 FL (6.5-10.1) 9.3 FL (6.5-10.1) Neutrophils (%) (Auto) % (45.0-75.0) 70.9 % (45.0-75.0) 72.4 % (45.0-75.0) Lymphocytes (%) (Auto) % (20.0-45.0) 14.8 % (20.0-45.0) 13.2 % (20.0-45.0) Monocytes (%) (Auto) % (1.0-10.0) 12.3 % (1.0-10.0) 13.1 % (1.0-10.0) Eosinophils (%) (Auto) % (0.0-3.0) 1.3 % (0.0-3.0) 0.6 % (0.0-3.0) Basophils (%) (Auto) % (0.0-2.0) 0.7 % (0.0-2.0) 0.7 % (0.0-2.0) Differential Total Cells Counted 100 Neutrophils % (Manual) 66 % (45-75) Lymphocytes % (Manual) 17 % (20-45) Monocytes % (Manual) 15 % (1-10) Eosinophils % (Manual) 1 % (0-3) Basophils % (Manual) 1 % (0-2) Band Neutrophils 0 % (0-8) Platelet Estimate Decreased Platelet Morphology Normal Hypochromasia 1+ Anisocytosis 2+ Sodium Level 145 MMOL/L (136-145) 139 MMOL/L (136-145) 141 MMOL/L (136-145) Potassium Level 3.1 MMOL/L (3.5-5.1) 3.3 MMOL/L (3.5-5.1) 3.5 MMOL/L (3.5-5.1) Chloride Level 113 MMOL/L (98-107) 112 MMOL/L (98-107) 112 MMOL/L (98-107) Carbon Dioxide Level 23 MMOL/L (21-32) 22 MMOL/L (21-32) 20 MMOL/L (21-32) Anion Gap 9 mmol/L (5-15) 5 mmol/L (5-15) 9 mmol/L (5-15) Blood Urea Nitrogen 33 mg/dL (7-18) 30 mg/dL (7-18) 26 mg/dL (7-18) Creatinine 1.7 MG/DL (0.55-1.30) 1.8 MG/DL (0.55-1.30) 1.7 MG/DL (0.55-1.30) Estimat Glomerular Filtration Rate mL/min (>60) mL/min (>60) mL/min (>60) Glucose Level 194 MG/DL (74-106) 219 MG/DL (74-106) 216 MG/DL (74-106) Calcium Level 7.4 MG/DL (8.5-10.1) 7.2 MG/DL (8.5-10.1) 7.3 MG/DL (8.5-10.1) Random Vancomycin Level 13.4 ug/mL Stool Occult Blood Positive (NEGATIVE) Height (Feet): 5 Height (Inches): 9.00 Weight (Pounds): 174 Objective Physical Exam Vital Signs: have been reviewed General Appearance: non-toxic, obese, Chronically Ill Respiratory: chest non-tender, lungs clear, mirian BSs, no rhonchi Cardiovascular: normal inspection, regular rate, rhythm, GI: normal inspection, soft Genitourinary: MANZANO+ Musculoskeletal: normal inspection Neurologic: normal inspection, alert Psychiatric: normal inspection Skin: other - Marcelo Shne MD Apr 10, 2019 06:02
[2019-04-10] MEDS: NovoLOG Insulin Flexpen SUBQ SCH ×4 (06:11→21:36)
[2019-04-10 06:21] LABS: BASOPHILS % (AUTO) 0.4 % (0.0-2.0); EOSINOPHILS % (AUTO) 0.9 % (0.0-3.0); HEMATOCRIT 29.9 % (42.0-52.0); HEMOGLOBIN 9.2 G/DL (14.2-18.0); LYMPHOCYTES % (AUTO) 14.6 % (20.0-45.0); MEAN CORPUSCULAR VOLUME 90 FL (80-99); MONOCYTES % (AUTO) 13.7 % (1.0-10.0); NEUTROPHILS % (AUTO) 70.4 % (45.0-75.0); PLATELET COUNT 110 K/UL (150-450); RED BLOOD COUNT 3.32 M/UL (4.70-6.10); WHITE BLOOD COUNT 5.2 K/UL (4.8-10.8)
--- NOTE | 2019-04-10 06:54 | NUR ---
HAND-OFF: Report given to MATT Mckeon.
--- NOTE | 2019-04-10 06:54 | NUR ---
NURSE NOTES: Reported new finding on patient's left proximal shaft of penis. Informed Dr. Mcallister who was on the unit. Dr. Mcallister ordered to informed . Informed Dr. Pepe about the new finding. Dr. Pepe will come to see the patient.
[2019-04-10 07:20] LABS: ALANINE AMINOTRANSFERASE 10 U/L (12-78); ALBUMIN 1.5 G/DL (3.4-5.0); ALBUMIN/GLOBULIN RATIO 0.3 (1.0-2.7); ALKALINE PHOSPHATASE 49 U/L (46-116); ANION GAP 11 mmol/L (5-15); ASPARTATE AMINO TRANSFERASE 17 U/L (15-37); BILIRUBIN,TOTAL 0.3 MG/DL (0.2-1.0); BLOOD UREA NITROGEN 26 mg/dL (7-18); CALCIUM 7.3 MG/DL (8.5-10.1); CARBON DIOXIDE 18 MMOL/L (21-32); CHLORIDE 110 MMOL/L (98-107); CREATININE 1.8 MG/DL (0.55-1.30); SODIUM 139 MMOL/L (136-145)
--- NOTE | 2019-04-10 07:25 | NUR ---
NURSE NOTES: Received patient in bed, patient a/a/o x 1-2, verbally responsive. no sign of distress, IV noted on left hand intact and patent running fluid as ordered and covered with kerlix for patient safety. on P200 mattress. Oconnor intact draining urine. Bed placed at the lowest with alarm, brake, and siderails up for safety. Call light placed within reach. Will continue to monitor and provide care as ordered travis urias
--- NOTE | 2019-04-10 07:39 | NUR ---
HAND-OFF: Report given to Ivania GUTIERREZ.
[2019-04-10 08:12] LABS: PHOSPHORUS 2.3 MG/DL (2.5-4.9)
[2019-04-10 08:19] VITALS: BP 141/56
[2019-04-10] MEDS: Tamsulosin 0.4mg cap ORAL SCH ×2 (08:56→17:09)
[2019-04-10] MEDS: Carvedilol 12.5mg tab ORAL SCH ×2 (08:56→21:27)
[2019-04-10] MEDS: Vancomycin oral 125mg/2.5ml ORAL SCH ×4 (08:56→21:27)
[2019-04-10] MEDS: Heparin 5000 units/ml inj SUBQ SCH ×2 (08:57→21:00)
--- NOTE | 2019-04-10 09:00 | Consultation ---
DATE OF CONSULTATION: 04/05/2019 PSYCHOTHERAPY CONSULTATION PROGRESS NOTE CONSULTING PHYSICIAN: Sarika Ramos PsyD TREATING ATTENDING: Jamie Gray D.O. HISTORY OF PRESENT ILLNESS: This is an 83-year-old male patient. This patient presented to the hospital for low O2 saturations and the patient has been confused and disorganized referred to psychotherapeutic services. . The patient is a poor historian was able to state his name, is not able to recall his birthday or date of . He is very confused and disorganized. A significant amount of information was also obtained by an extensive review of records since the patient is extremely confused and disorganized and a poor historian. At this time, there is no indication of auditory or visual hallucinations, suicidal or homicidal thoughts of ideation. The patient is from [facility]. PAST MEDICAL HISTORY: Includes a history of urinary retention, CAD, CVA, diabetes, and hypertension. ALLERGIES: The patient has no known drug allergies. SUBSTANCE ABUSE HISTORY: There is no indication of alcohol use, illicit substance use, or smoking cigarettes. PSYCHIATRIC HISTORY: of significant psychiatric history for this patient at this time. SOCIAL HISTORY: The patient is an 83-year-old male patient who comes from [facility]. Financially sustained by [facility]. MENTAL STATUS EXAMINATION: Alert and oriented to person. Mood dysphoric. Affect blunted. Thought process disoriented. Thought content confused. He has poor attention and concentration. Poor insight, judgment, and impulse control. DIAGNOSIS: Rule out major depressive disorder, mild, without psychotic features. TODAY I ASSESSED THE PATIENT. PROVIDED THE PATIENT WITH: 1. Reality orientation, which is focused on improving cognitive function of the patient, who is very confused and disorganized. Oriented to person, place, time, and situation. 2. supportive psychotherapy . The patient is a poor historian, confused, disorganized, helpless. Encouraging him to participate in treatment milieu. 3. Plan is to maintain medication compliance with use of positive coping skills . This clinician has reviewed the patient's chart. Discussed the treatment with treatment team. Sarika Ramos PsyD. DR: CANDICE JOB#: [id number] CC: ADAM
[2019-04-10] MEDS ORDERED: Vancomycin 1gm/D5W 275ml IVPB ONE ×2 (10:00)
[2019-04-10] MEDS: D5W w/KCl 20mEq 1,000 ML IV SCH (10:08)
--- NOTE | 2019-04-10 10:37 | GI Progress Note ---
Assessment/Plan Problems: (1) C. difficile colitis ICD Codes: A04.72 - Enterocolitis due to Clostridium difficile, not specified as recurrent SNOMED: 144878730 (2) Dehydration ICD Codes: E86.0 - Dehydration SNOMED: 41979190 (3) Anemia ICD Codes: D64.9 - Anemia, unspecified SNOMED: 171531771 Status: progressing Status Narrative Discussed with Dr. Valiente. Assessment/Plan fecal occult blood stool positive x2 C. difficile positive Recommend EGD and colonoscopy at some point to evaluate possible GI bleed, will hold at this time given active C. difficile colitis. Antibiotics per infectious diseases off PPI IV and p.o. hydration plus electrolyte correction advance diet as tolerated Monitor H&H, PRN transfusions off all laxatives We will follow with additional recommendations on a daily basis Ensure s/p IVC filter placement The patient was seen and examined at bedside and all new and available data was reviewed in the patients chart. I agree with the above findings, impression and plan. (Patient seen earlier today. Signature stamp does not reflect patient encounter time.). - Terell Valiente MD Subjective Subjective states diarrhea has resolved Objective Last 24 Hour Vital Signs Date Time Temp Pulse Resp B/P (MAP) Pulse Ox O2 Delivery O2 Flow Rate FiO2 04/10/19 08:56 71 141/56 04/10/19 08:19 96.1 71 16 141/56 (84) 100 04/10/19 08:15 Room Air 04/10/19 05:54 121/54 04/10/19 04:00 98.3 71 18 148/55 (86) 99 04/10/19 00:00 98.4 68 17 140/84 (102) 99 04/09/19 22:53 143/77 04/09/19 21:50 71 134/70 04/09/19 21:00 Room Air 04/09/19 20:00 97.9 71 17 99 04/09/19 16:00 98.7 70 18 154/61 (92) 99 04/09/19 12:54 97.9 73 18 127/88 (101) 96 Intake and Output 04/09/19 04/10/19 19:00 07:00 Intake Total 875 ml 900 ml Output Total 800 ml 400 ml Balance 75 ml 500 ml Intake Oral 800 ml IV Total 75 ml 900 ml Output Urine Total 800 ml 400 ml # Bowel Movements 3 Laboratory Tests Test 04/10/19 06:10 White Blood Count 5.2 K/UL (4.8-10.8) Red Blood Count 3.32 M/UL (4.70-6.10) L Hemoglobin 9.2 G/DL (14.2-18.0) L Hematocrit 29.9 % (42.0-52.0) L Mean Corpuscular Volume 90 FL (80-99) Mean Corpuscular Hemoglobin 27.5 PG (27.0-31.0) Mean Corpuscular Hemoglobin Concent 30.6 G/DL (32.0-36.0) L Red Cell Distribution Width 18.0 % (11.6-14.8) H Platelet Count 110 K/UL (150-450) L Mean Platelet Volume 7.7 FL (6.5-10.1) Neutrophils (%) (Auto) 70.4 % (45.0-75.0) Lymphocytes (%) (Auto) 14.6 % (20.0-45.0) L Monocytes (%) (Auto) 13.7 % (1.0-10.0) H Eosinophils (%) (Auto) 0.9 % (0.0-3.0) Basophils (%) (Auto) 0.4 % (0.0-2.0) Sodium Level 139 MMOL/L (136-145) Potassium Level 4.0 MMOL/L (3.5-5.1) Chloride Level 110 MMOL/L (98-107) H Carbon Dioxide Level 18 MMOL/L (21-32) L Anion Gap 11 mmol/L (5-15) Blood Urea Nitrogen 26 mg/dL (7-18) H Creatinine 1.8 MG/DL (0.55-1.30) H Estimat Glomerular Filtration Rate mL/min (>60) Glucose Level 203 MG/DL (74-106) H Calcium Level 7.3 MG/DL (8.5-10.1) L Phosphorus Level 2.3 MG/DL (2.5-4.9) L Magnesium Level 1.9 MG/DL (1.8-2.4) Total Bilirubin 0.3 MG/DL (0.2-1.0) Aspartate Amino Transf (AST/SGOT) 17 U/L (15-37) Alanine Aminotransferase (ALT/SGPT) 10 U/L (12-78) L Alkaline Phosphatase 49 U/L (46-116) Total Protein 5.8 G/DL (6.4-8.2) L Albumin 1.5 G/DL (3.4-5.0) L Globulin 4.3 g/dL Albumin/Globulin Ratio 0.3 (1.0-2.7) L Random Vancomycin Level 15.0 ug/mL Height (Feet): 5 Height (Inches): 9.00 Weight (Pounds): 174 General Appearance: WD/WN, no apparent distress, alert Cardiovascular: normal rate Respiratory/Chest: normal breath sounds, no respiratory distress Abdominal Exam: normal bowel sounds, non tender, soft Extremities: non-tender Omer Cunningham NP Apr 10, 2019 10:36
[2019-04-10] MEDS ORDERED: Sodium Phosphate 15 MM in NS 275 ML IVPB SCH (11:00)
--- NOTE | 2019-04-10 11:55 | Infectious Diseases Prog Note ---
Assessment/Plan Assessment/Plan 83yo gentleman with PMH below [facility], wheezing and desaturation between 83-90%. Pt is oriented to self. Does not know where he is or why he is in the hospital. He initially says yes to abdominal pain, suprapubic pain, leg pain, arm pain but then denied it on second question. Denies fever, chills, cough, sob, diarrhea, dysuria. Unclear baseline. Pt recently had blood transfusion at [facility] 03/06. Pt was recently diagnosed with bladder cancer 12/2018 Afebrile On RA No leukocytosis No lactic acidosis [facility], SP Possible PNA? flu swab negative CXR: Mild diffuse airspace opacities in both lungs. Lungs are underinflated.Lung findings are likely due to underinflation rather than pulmonary edema or atelectasis. Possible UTI? UA WBC TNTC, also moderate epithelial cells UCx: 50-60K amp sensitive E faecalis E faecalis bacteremia likely 2/ UTI 04/01 BCx: E faecalis 04/02 BCx: neg TTE without vegetation C diff + 04/04 Acute DVT pending IVC filter RIGHT LEG: Venous imaging reveals acute thrombus in the common to superficial femoral veins. LEFT LEG: Venous imaging reveals acute thrombus in the common to superficial femoral veins. SP IVC filter 04/06 Hypokalemia MRSA screen negative ANGELA on CKD CAD Bladder cancer HTN DM CVA Dyslipidemia CKD Anemia BPH Plan: continue vancomycin IV #/(tentative end date 04/15) and Vancomycin PO #/ -04/09 SP Cefepime #8 aspiration precaution, elevate HOB monitor temp and CBC needs 48hrs diarrhea free to discontinue isolation Thank you for this consult. [facility] will continue to follow the patient with you. Subjective Allergies: Coded Allergies: No Known Allergies (Unverified , 12/20/18) Subjective afebrile no leukocytosis Objective Vital Signs Last 24 Hour Vital Signs Date Time Temp Pulse Resp B/P (MAP) Pulse Ox O2 Delivery O2 Flow Rate FiO2 04/10/19 08:56 71 141/56 04/10/19 08:19 96.1 71 16 141/56 (84) 100 04/10/19 08:15 Room Air 04/10/19 05:54 121/54 04/10/19 04:00 98.3 71 18 148/55 (86) 99 04/10/19 00:00 98.4 68 17 140/84 (102) 99 04/09/19 22:53 143/77 04/09/19 21:50 71 134/70 04/09/19 21:00 Room Air 04/09/19 20:00 97.9 71 17 99 04/09/19 16:00 98.7 70 18 154/61 (92) 99 04/09/19 12:54 97.9 73 18 127/88 (101) 96 Height (Feet): 5 Height (Inches): 9.00 Weight (Pounds): 174 Laboratory Tests Test 04/10/19 06:10 White Blood Count 5.2 K/UL (4.8-10.8) Red Blood Count 3.32 M/UL (4.70-6.10) L Hemoglobin 9.2 G/DL (14.2-18.0) L Hematocrit 29.9 % (42.0-52.0) L Mean Corpuscular Volume 90 FL (80-99) Mean Corpuscular Hemoglobin 27.5 PG (27.0-31.0) Mean Corpuscular Hemoglobin Concent 30.6 G/DL (32.0-36.0) L Red Cell Distribution Width 18.0 % (11.6-14.8) H Platelet Count 110 K/UL (150-450) L Mean Platelet Volume 7.7 FL (6.5-10.1) Neutrophils (%) (Auto) 70.4 % (45.0-75.0) Lymphocytes (%) (Auto) 14.6 % (20.0-45.0) L Monocytes (%) (Auto) 13.7 % (1.0-10.0) H Eosinophils (%) (Auto) 0.9 % (0.0-3.0) Basophils (%) (Auto) 0.4 % (0.0-2.0) Sodium Level 139 MMOL/L (136-145) Potassium Level 4.0 MMOL/L (3.5-5.1) Chloride Level 110 MMOL/L (98-107) H Carbon Dioxide Level 18 MMOL/L (21-32) L Anion Gap 11 mmol/L (5-15) Blood Urea Nitrogen 26 mg/dL (7-18) H Creatinine 1.8 MG/DL (0.55-1.30) H Estimat Glomerular Filtration Rate mL/min (>60) Glucose Level 203 MG/DL (74-106) H Calcium Level 7.3 MG/DL (8.5-10.1) L Phosphorus Level 2.3 MG/DL (2.5-4.9) L Magnesium Level 1.9 MG/DL (1.8-2.4) Total Bilirubin 0.3 MG/DL (0.2-1.0) Aspartate Amino Transf (AST/SGOT) 17 U/L (15-37) Alanine Aminotransferase (ALT/SGPT) 10 U/L (12-78) L Alkaline Phosphatase 49 U/L (46-116) Total Protein 5.8 G/DL (6.4-8.2) L Albumin 1.5 G/DL (3.4-5.0) L Globulin 4.3 g/dL Albumin/Globulin Ratio 0.3 (1.0-2.7) L Random Vancomycin Level 15.0 ug/mL Current Medications Medications (Trade) Dose Ordered Sig/Sallie Route PRN Reason Start Time Stop Time Status Last Admin Dose Admin Acetaminophen (Tylenol) 650 mg Q4H PRN ORAL fever 04/06/19 14:00 05/01/19 13:59 Allopurinol (Allopurinol) 300 mg DAILY ORAL 04/07/19 09:00 05/03/19 09:59 04/10/19 08:56 Carvedilol (Coreg) 12.5 mg EVERY 12 HOURS ORAL 04/06/19 21:00 05/01/19 08:59 04/10/19 08:56 Dextrose (Dextrose 50%) 25 ml Q30M PRN IV Hypoglycemia 04/06/19 14:00 05/01/19 10:29 Dextrose (Dextrose 50%) 50 ml Q30M PRN IV Hypoglycemia 04/06/19 14:00 05/01/19 10:29 Dextrose/ Electrolytes 1,000 ml @ 75 mls/hr [id number] IV 04/06/19 13:30 05/04/19 09:59 04/10/19 10:08 Heparin Sodium (Porcine) (Heparin 5000 units/ml) 5,000 units EVERY 12 HOURS SUBQ 04/06/19 21:00 05/01/19 08:59 Hydralazine HCl (Apresoline) 50 mg Q8HR ORAL 04/06/19 14:00 05/01/19 13:59 04/10/19 05:54 Insulin Aspart (NovoLOG) BEFORE MEALS AND HS SUBQ 04/06/19 16:30 05/01/19 11:29 04/10/19 06:11 Minoxidil (Loniten) 2.5 mg Q4H PRN ORAL bp over 165 syst 04/06/19 14:00 05/01/19 13:59 Ondansetron HCl (Zofran) 4 mg Q6H PRN IVP Nausea & Vomiting 04/06/19 14:00 05/01/19 07:59 Quetiapine Fumarate (SEROqueL) 50 mg TWICE A DAY ORAL 04/06/19 18:00 05/03/19 17:59 04/10/19 08:56 Tamsulosin HCl (Flomax) 0.4 mg BID ORAL 04/06/19 18:00 05/01/19 12:59 04/10/19 08:56 Temazepam (Restoril) 15 mg HSPRN PRN ORAL Insomnia 04/06/19 14:00 04/13/19 13:59 Vancomycin HCl (Firvanq) 125 mg FOUR TIMES A DAY ORAL 04/06/19 18:00 04/11/19 12:59 04/10/19 08:56 Vancomycin HCl (Vanco rx to dose) 1 ea DAILY PRN MISC Per rx protocol 04/07/19 09:00 05/01/19 08:14 Jyoti Piedra M.D. Apr 10, 2019 11:55
[2019-04-10 12:15] VITALS: BP 130/53
--- NOTE | 2019-04-10 12:38 | Pulmonology Progress Note ---
Assessment/Plan Problems: (1) C. difficile colitis (2) Acute respiratory failure with hypoxemia (3) Acute deep vein thrombosis (DVT) of both femoral veins (4) Thrombocytopenia (5) Invasive carcinoma of urinary bladder (6) CAD (coronary artery disease) (7) Anemia (8) Diabetes (9) HTN (hypertension) (10) Bladder cancer Assessment/Plan has diarrhea renal function improving V/q scan showed low probability PE venous studies of legs showed acute DVT bilaterally IVC filter done y respiratory treatment check electrolytes titrate fiio2 to sat of 92% dvt prophylaxis. renal function improving Subjective ROS Limited/Unobtainable: Yes Constitutional: Reports: no symptoms Respiratory: Reports: no symptoms Cardiovascular: Reports: no symptoms Allergies: Coded Allergies: No Known Allergies (Unverified , 12/20/18) Objective Last 24 Hour Vital Signs Date Time Temp Pulse Resp B/P (MAP) Pulse Ox O2 Delivery O2 Flow Rate FiO2 04/10/19 12:15 99.5 71 18 130/53 (78) 100 04/10/19 08:56 71 141/56 04/10/19 08:19 96.1 71 16 141/56 (84) 100 04/10/19 08:15 Room Air 04/10/19 05:54 121/54 04/10/19 04:00 98.3 71 18 148/55 (86) 99 04/10/19 00:00 98.4 68 17 140/84 (102) 99 04/09/19 22:53 143/77 04/09/19 21:50 71 134/70 04/09/19 21:00 Room Air 04/09/19 20:00 97.9 71 17 99 04/09/19 16:00 98.7 70 18 154/61 (92) 99 04/09/19 12:54 97.9 73 18 127/88 (101) 96 Intake and Output 04/09/19 04/10/19 18:59 06:59 Intake Total 800 ml 900 ml Output Total 800 ml 400 ml Balance 0 ml 500 ml Intake Oral 800 ml IV Total 900 ml Output Urine Total 800 ml 400 ml # Bowel Movements 3 Objective HEENT: normocephalic, atraumatic Respiratory/Chest: chest wall non-tender, normal breath sounds Cardiovascular: normal rate, regular rhythm Abdomen: normal bowel sounds, soft, non tender Genitourinary: normal external genitalia Extremities: no cyanosis Skin: no rash, no lesions Laboratory Tests 04/10/19 06:10: White Blood Count 5.2, Red Blood Count 3.32L, Hemoglobin 9.2L, Hematocrit 29.9L , Mean Corpuscular Volume 90, Mean Corpuscular Hemoglobin 27.5, Mean Corpuscular Hemoglobin Concent 30.6L, Red Cell Distribution Width 18.0H, Platelet Count 110L, Mean Platelet Volume 7.7, Neutrophils (%) (Auto) 70.4, Lymphocytes (%) (Auto) 14.6L, Monocytes (%) (Auto) 13.7H, Eosinophils (%) (Auto ) 0.9, Basophils (%) (Auto) 0.4, Sodium Level 139, Potassium Level 4.0, Chloride Level 110H, Carbon Dioxide Level 18L, Anion Gap 11, Blood Urea Nitrogen 26H, Creatinine 1.8H, Estimat Glomerular Filtration Rate , Glucose Level 203H, Calcium Level 7.3L, Phosphorus Level 2.3L, Magnesium Level 1.9, Total Bilirubin 0.3, Aspartate Amino Transf (AST/SGOT) 17, Alanine Aminotransferase (ALT/SGPT) 10L, Alkaline Phosphatase 49, Total Protein 5.8L, Albumin 1.5L, Globulin 4.3, Albumin/Globulin Ratio 0.3L, Random Vancomycin Level 15.0 Current Medications Medications (Trade) Dose Ordered Sig/Sallie Route PRN Reason Start Time Stop Time Status Last Admin Dose Admin Acetaminophen (Tylenol) 650 mg Q4H PRN ORAL fever 04/06/19 14:00 05/01/19 13:59 Allopurinol (Allopurinol) 300 mg DAILY ORAL 04/07/19 09:00 05/03/19 09:59 04/10/19 08:56 Carvedilol (Coreg) 12.5 mg EVERY 12 HOURS ORAL 04/06/19 21:00 05/01/19 08:59 04/10/19 08:56 Dextrose (Dextrose 50%) 25 ml Q30M PRN IV Hypoglycemia 04/06/19 14:00 05/01/19 10:29 Dextrose (Dextrose 50%) 50 ml Q30M PRN IV Hypoglycemia 04/06/19 14:00 05/01/19 10:29 Dextrose/ Electrolytes 1,000 ml @ 75 mls/hr [id number] IV 04/06/19 13:30 05/04/19 09:59 04/10/19 10:08 Heparin Sodium (Porcine) (Heparin 5000 units/ml) 5,000 units EVERY 12 HOURS SUBQ 04/06/19 21:00 05/01/19 08:59 Hydralazine HCl (Apresoline) 50 mg Q8HR ORAL 04/06/19 14:00 05/01/19 13:59 04/10/19 05:54 Insulin Aspart (NovoLOG) BEFORE MEALS AND HS SUBQ 04/06/19 16:30 05/01/19 11:29 04/10/19 06:11 Minoxidil (Loniten) 2.5 mg Q4H PRN ORAL bp over 165 syst 04/06/19 14:00 05/01/19 13:59 Ondansetron HCl (Zofran) 4 mg Q6H PRN IVP Nausea & Vomiting 04/06/19 14:00 05/01/19 07:59 Quetiapine Fumarate (SEROqueL) 50 mg TWICE A DAY ORAL 04/06/19 18:00 05/03/19 17:59 04/10/19 08:56 Tamsulosin HCl (Flomax) 0.4 mg BID ORAL 04/06/19 18:00 05/01/19 12:59 04/10/19 08:56 Temazepam (Restoril) 15 mg HSPRN PRN ORAL Insomnia 04/06/19 14:00 04/13/19 13:59 Vancomycin HCl (Firvanq) 125 mg FOUR TIMES A DAY ORAL 04/06/19 18:00 04/11/19 12:59 04/10/19 08:56 Vancomycin HCl (Vanco rx to dose) 1 ea DAILY PRN MISC Per rx protocol 04/07/19 09:00 05/01/19 08:14 Adam Moyer MD Apr 10, 2019 12:38
--- NOTE | 2019-04-10 14:22 | NUR ---
RD ASSESSMENT & RECOMMENDATIONS SEE CARE ACTIVITY FOR COMPLETE ASSESSMENT DAILY ESTIMATED NEEDS: Needs based on wounds, cancer, obese; 84kg adj 20-25 kcals/kg 1680- 2100 total kcals 1.25-1.5 g protein/kg 84- 126 g total protein 25-30 mL/kg 2100- 2520 total fluid mLs NUTRITION DIAGNOSIS: 1) Increased protein needs r/t wounds AEb multiple full thickness wounds, refer to WC eval. 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 3) Altered nutrition related lab values r/t clinical status as evidenced by elev BG (203 216), Na 150- wnl, K 3.1- wnl, elev BUN/ creat now trending down. CURRENT DIET:Renal diet, nectar thick, liq. pureed like soup PO DIET RECOMMENDATIONS: WITH CONTINUED POOR PO INTAKE, REC LIBERALIZED LOW NA DIET ENTERAL NUTRITION RECOMMENDATIONS: Glucerna 1.5 @55mL/hr x 24 hrs to provide 1320mL, 1980kcal, 109g pro, 1001mL free H2O - With continued poor po intake, consider non oral feeds if c/w POC -> obtain GI access. - Initiate Glucerna 1.5 @15mL/hr, advancing 10mL/hr q4-6 hrs until @ goal. - HOB > 30 degrees. - Flush per MD. ADDITIONAL RECOMMENDATIONS: 1) Re-calibrate bed scale w/ added P200 mattress for accurate CBW 2) Monitor lytes, need for dietary restriction (ARF per MD) 3) Wound care: Ananda BID, MVI x1 daily (nephrovite per MD?) + Vit C/ dosing per Renal MD 4) Continue Glucerna TID/ monitor lytes, need for Nepro 5) Consider Kcal count w/ fair po intake; Consider appetite stimulant 6) snacks in b/w all meals
--- NOTE | 2019-04-10 14:55 | Nephrology Progress Note ---
Assessment/Plan Problem List: (1) ARF (acute renal failure) (2) Acute on chronic renal insufficiency (3) Diabetes (4) HTN (hypertension) (5) Bladder cancer (6) Invasive carcinoma of urinary bladder (7) Anemia Assessment Acute renal failure ? Superimposed CKD Bladder Mass / h/o Hematuria HTN DM Anemia, previous transfusions s/p Cystoscopy 12/28 Plan hardly takes PO meds med-surg favor transfusion Hydrate richardson IV Iron K Supplement BP management, BP med adjustment Monitor lytes and renal parameters Kidney ESDRAS , no hydro per orders Previous Uro note: Tolerated bladder tumor resection well. Unfortunately greater part of the bladder is involved and essentially replaced all normal bladder with tumor. I can not resect all the tumors. Patient needs a radical cystectomy (removal of bladder) or radiation/chemotherapy at higher level of care. 1. recommend transfer to higher level of care for cystectomy 2. continue richardson, keep irrigation to maintain light pink urine. Multiple mass like lesions within the bladder. Further evaluation with cystoscopy is recommended to evaluate for possible neoplasm. Multiple parapelvic renal cysts Subjective ROS Limited/Unobtainable: No Objective Objective Last 24 Hour Vital Signs Date Time Temp Pulse Resp B/P (MAP) Pulse Ox O2 Delivery O2 Flow Rate FiO2 04/10/19 14:00 130/53 04/10/19 12:15 99.5 71 18 130/53 (78) 100 04/10/19 08:56 71 141/56 04/10/19 08:19 96.1 71 16 141/56 (84) 100 04/10/19 08:15 Room Air 04/10/19 05:54 121/54 04/10/19 04:00 98.3 71 18 148/55 (86) 99 04/10/19 00:00 98.4 68 17 140/84 (102) 99 04/09/19 22:53 143/77 04/09/19 21:50 71 134/70 04/09/19 21:00 Room Air 04/09/19 20:00 97.9 71 17 99 04/09/19 16:00 98.7 70 18 154/61 (92) 99 Intake and Output 04/09/19 04/10/19 18:59 06:59 Intake Total 800 ml 900 ml Output Total 800 ml 400 ml Balance 0 ml 500 ml Intake Oral 800 ml IV Total 900 ml Output Urine Total 800 ml 400 ml # Bowel Movements 3 Laboratory Tests 04/10/19 06:10: White Blood Count 5.2, Red Blood Count 3.32L, Hemoglobin 9.2L, Hematocrit 29.9L , Mean Corpuscular Volume 90, Mean Corpuscular Hemoglobin 27.5, Mean Corpuscular Hemoglobin Concent 30.6L, Red Cell Distribution Width 18.0H, Platelet Count 110L, Mean Platelet Volume 7.7, Neutrophils (%) (Auto) 70.4, Lymphocytes (%) (Auto) 14.6L, Monocytes (%) (Auto) 13.7H, Eosinophils (%) (Auto ) 0.9, Basophils (%) (Auto) 0.4, Sodium Level 139, Potassium Level 4.0, Chloride Level 110H, Carbon Dioxide Level 18L, Anion Gap 11, Blood Urea Nitrogen 26H, Creatinine 1.8H, Estimat Glomerular Filtration Rate , Glucose Level 203H, Calcium Level 7.3L, Phosphorus Level 2.3L, Magnesium Level 1.9, Total Bilirubin 0.3, Aspartate Amino Transf (AST/SGOT) 17, Alanine Aminotransferase (ALT/SGPT) 10L, Alkaline Phosphatase 49, Total Protein 5.8L, Albumin 1.5L, Globulin 4.3, Albumin/Globulin Ratio 0.3L, Random Vancomycin Level 15.0 Height (Feet): 5 Height (Inches): 9.00 Weight (Pounds): 174 General Appearance: no apparent distress, lethargic Cardiovascular: normal rate Respiratory/Chest: decreased breath sounds Abdomen: soft Objective no change Russell Sofia MD Apr 10, 2019 14:54
[2019-04-10 16:00] VITALS: BP 145/87
--- NOTE | 2019-04-10 16:03 | NUR ---
DISCHARGE SWALLOW/SPEECH THERAPY SUMMARY: PATIENT SEE FOR DYSPHAGIA, SEE SWALLOW EVALUATION REPORT. GOALS MET FOR STAFF EDUCATED/TRAINED IN POSTED ASP PRECAUTIONS GOALS FOR INTAKE NOT MET REFUSES OR IS 50% UNABLE TO COMPLETE MOD BARIUM SWALLOW STUDY DUE TO SCHEDULE CONFLICTS AND PT REFUSAL OF PO (MIGHT REFUSE BARIUM). PLAN: D/C FROM HOSPITAL TODAY F/UP WITH FLOAT REMOVER AT [facility]F FOR DYSPHAGIA MANAGEMENT AND TX MOD BARIUM SWALLOW STUDY OUTPT ONLY IF RECEPTIVE TO BARIUM
--- NOTE | 2019-04-10 16:28 | Surgery Progress Note ---
Surgery Progress Note Subjective Additional Comments Patient seen and examined bedside. Physical examination was identified to have a draining pustule in the left shaft base of the penis. There is an opening less than a centimeter with drainage of some mild seropurulent fluid and some slough. Wound irrigated cleansed and some non-excisional debridement with gauze was performed. There is significant edema in the area no cellulitis skin otherwise intact. Fair amount of moisture in the area. Will continue with local care Objective Last 24 Hour Vital Signs Date Time Temp Pulse Resp B/P (MAP) Pulse Ox O2 Delivery O2 Flow Rate FiO2 04/10/19 14:00 130/53 04/10/19 12:15 99.5 71 18 130/53 (78) 100 04/10/19 08:56 71 141/56 04/10/19 08:19 96.1 71 16 141/56 (84) 100 04/10/19 08:15 Room Air 04/10/19 05:54 121/54 04/10/19 04:00 98.3 71 18 148/55 (86) 99 04/10/19 00:00 98.4 68 17 140/84 (102) 99 04/09/19 22:53 143/77 04/09/19 21:50 71 134/70 04/09/19 21:00 Room Air 04/09/19 20:00 97.9 71 17 99 I&O Intake and Output 04/09/19 04/10/19 18:59 06:59 Intake Total 800 ml 900 ml Output Total 800 ml 400 ml Balance 0 ml 500 ml Intake Oral 800 ml IV Total 900 ml Output Urine Total 800 ml 400 ml # Bowel Movements 3 Dressing: saturated Wound: other Drains: other Cardiovascular: RSR Respiratory: decreased breath sounds Abdomen: soft, present bowel sounds, non-distended Extremities: no cyanosis, other Laboratory Tests Test 04/10/19 06:10 White Blood Count 5.2 K/UL (4.8-10.8) Red Blood Count 3.32 M/UL (4.70-6.10) L Hemoglobin 9.2 G/DL (14.2-18.0) L Hematocrit 29.9 % (42.0-52.0) L Mean Corpuscular Volume 90 FL (80-99) Mean Corpuscular Hemoglobin 27.5 PG (27.0-31.0) Mean Corpuscular Hemoglobin Concent 30.6 G/DL (32.0-36.0) L Red Cell Distribution Width 18.0 % (11.6-14.8) H Platelet Count 110 K/UL (150-450) L Mean Platelet Volume 7.7 FL (6.5-10.1) Neutrophils (%) (Auto) 70.4 % (45.0-75.0) Lymphocytes (%) (Auto) 14.6 % (20.0-45.0) L Monocytes (%) (Auto) 13.7 % (1.0-10.0) H Eosinophils (%) (Auto) 0.9 % (0.0-3.0) Basophils (%) (Auto) 0.4 % (0.0-2.0) Sodium Level 139 MMOL/L (136-145) Potassium Level 4.0 MMOL/L (3.5-5.1) Chloride Level 110 MMOL/L (98-107) H Carbon Dioxide Level 18 MMOL/L (21-32) L Anion Gap 11 mmol/L (5-15) Blood Urea Nitrogen 26 mg/dL (7-18) H Creatinine 1.8 MG/DL (0.55-1.30) H Estimat Glomerular Filtration Rate mL/min (>60) Glucose Level 203 MG/DL (74-106) H Calcium Level 7.3 MG/DL (8.5-10.1) L Phosphorus Level 2.3 MG/DL (2.5-4.9) L Magnesium Level 1.9 MG/DL (1.8-2.4) Total Bilirubin 0.3 MG/DL (0.2-1.0) Aspartate Amino Transf (AST/SGOT) 17 U/L (15-37) Alanine Aminotransferase (ALT/SGPT) 10 U/L (12-78) L Alkaline Phosphatase 49 U/L (46-116) Total Protein 5.8 G/DL (6.4-8.2) L Albumin 1.5 G/DL (3.4-5.0) L Globulin 4.3 g/dL Albumin/Globulin Ratio 0.3 (1.0-2.7) L Random Vancomycin Level 15.0 ug/mL Plan Problems: (1) Scrotal lesion Assessment & Plan: This is a 83-year-old male with multiple medical morbidities who was identified to have abnormal scrotal lesions on admission. There are 3 lesions on the scrotum clearly identified and likely old small abscesses or carbuncles which have healed slowly. Patient is incontinent With leakage of stool identified around the scrotal sac on the posterior aspect where the lesions are located. No signs of active infection no active drainage nontender skin macerated Recommend washing the scrotum daily with normal saline. Apply skin protectant and moisture absorbent dressing daily and as needed saturation Physical examination was identified to have a draining pustule in the left shaft base of the penis. There is an opening less than a centimeter with drainage of some mild seropurulent fluid and some slough. Wound irrigated cleansed and some non-excisional debridement with gauze was performed. There is significant edema in the area no cellulitis skin otherwise intact. Fair amount of moisture in the area. Will continue with local care We will follow and monitor for healing (2) Sacral decubitus ulcer, stage III Assessment & Plan: Pt presented on admission with multiple pressure injuries. Full thickness sacral pressure injury. Base of wound is viable with an area that is purple in center. Semi-detached black borders(L)9.5cm x (W)4.9cm x(D) 0.2cm .Non-blanching erythema periwound. Multiple pressure injuries Scrotum. Base of pressure injury R scrotum 75% pink granulation,25% slough. Edges pink,flat and adherent to base of wound.(L)2.2cm x (W)0.9cm.Ful thickness pressure injury center -base of scrotum (L)0.5cm x (W) 0.4cm. Base of wound has 100% slough. Full thickness pressure injury L scrotum ( L)2cm x (W01.1cm. Base of wound has 90% slough ,10% viable. Reabsorbing blood blister R heel heel. Base of wound black (L)2.2cm x (W)2cm with red tinged borders with fluctuance. (L)5.5cm x(W)5cm. Reabsorbing Blood Blister L heel. Base of wound is black ,dry with maroon and fluctuant borders.(L)6.5cm x (W)6cm Abd folds are moist and dark but is intact. Tx.Plan: Cleanse Sacral wound with Saline. Apply Therahoney. Apply Moisture Barrier Paste periwound. Cover with Optifoam drsg Daily and prn. Cleanse wounds on Scrotum with saline. Apply Therhaoney to each wound. Cover with Optifoam drsg. Change Daily and prn. Apply Moisture Barrier to Abd folds and Bilat groin Daily and prn. APM/NOLBERTO Mattress overlay. Reposition at least every 2hours or as tolerated. Off-load heels with pillow. (3) Bladder cancer (4) C. difficile colitis Assessment & Plan: blood cultures negative C diff positive - discussed with ID cont abx labs noted and improved exam stable cont current tx Bebeto Pepe Apr 10, 2019 16:28
--- NOTE | 2019-04-10 19:05 | NUR ---
NURSE NOTES: Received report from MATT Lopez. Patient awake and fatigue, verbally responsive selectively and repetitive. AAO x 1-2. Breathing unlabored on room air without distress. IV noted on left hand and right hand intact and patent. On P200 mattress. Bed placed at the lowest with alarm, brake, and siderails up for safety. Call light placed within reach. [place]nor intact draining urine. Will continue to monitor and provide care as ordered.
--- NOTE | 2019-04-10 19:16 | NUR ---
HAND-OFF: Report given to MATT Leung aCCORDINGLY MATT ESCOBEDO.
[2019-04-10 20:00] VITALS: BP 156/70
--- NOTE | 2019-04-10 21:31 | General Progress Note ---
Assessment/Plan Problem List: (1) Electrolyte imbalance ICD Codes: E87.8 - Other disorders of electrolyte and fluid balance, not elsewhere classified SNOMED: 740967126 (2) Dehydration ICD Codes: E86.0 - Dehydration SNOMED: 96421499 (3) Anemia ICD Codes: D64.9 - Anemia, unspecified SNOMED: 416440153 (4) CAD (coronary artery disease) ICD Codes: I25.10 - Atherosclerotic heart disease of [place] coronary artery without angina pectoris SNOMED: 18340810 (5) Diabetes ICD Codes: E11.9 - Type 2 diabetes mellitus without complications SNOMED: 89903177 (6) HTN (hypertension) ICD Codes: I10 - Essential (primary) hypertension SNOMED: 20312793 (7) Urinary tract infection ICD Codes: N39.0 - Urinary tract infection, site not specified SNOMED: 27176533 (8) Bladder cancer ICD Codes: C67.9 - Malignant neoplasm of bladder, unspecified SNOMED: 092402684 (9) Acute on chronic renal insufficiency ICD Codes: N28.9 - Disorder of kidney and ureter, unspecified; N18.9 - Chronic kidney disease, unspecified SNOMED: 779907671, 621287973 Status: progressing Assessment/Plan: afebrile nac vitals stable no sob reviewed chart and labs uti htn gerd Subjective ROS Limited/Unobtainable: Yes Allergies: Coded Allergies: No Known Allergies (Unverified , 12/20/18) Objective Last 24 Hour Vital Signs Date Time Temp Pulse Resp B/P (MAP) Pulse Ox O2 Delivery O2 Flow Rate FiO2 04/10/19 21:27 76 137/76 04/10/19 16:00 98.7 75 20 145/87 (106) 95 04/10/19 14:00 130/53 04/10/19 12:15 99.5 71 18 130/53 (78) 100 04/10/19 08:56 71 141/56 04/10/19 08:19 96.1 71 16 141/56 (84) 100 04/10/19 08:15 Room Air 04/10/19 05:54 121/54 04/10/19 04:00 98.3 71 18 148/55 (86) 99 04/10/19 00:00 98.4 68 17 140/84 (102) 99 04/09/19 22:53 143/77 04/09/19 21:50 71 134/70 Intake and Output 04/09/19 04/10/19 19:00 07:00 Intake Total 875 ml 900 ml Output Total 800 ml 400 ml Balance 75 ml 500 ml Intake Oral 800 ml IV Total 75 ml 900 ml Output Urine Total 800 ml 400 ml # Bowel Movements 3 Laboratory Tests 04/10/19 06:10: White Blood Count 5.2, Red Blood Count 3.32L, Hemoglobin 9.2L, Hematocrit 29.9L , Mean Corpuscular Volume 90, Mean Corpuscular Hemoglobin 27.5, Mean Corpuscular Hemoglobin Concent 30.6L, Red Cell Distribution Width 18.0H, Platelet Count 110L, Mean Platelet Volume 7.7, Neutrophils (%) (Auto) 70.4, Lymphocytes (%) (Auto) 14.6L, Monocytes (%) (Auto) 13.7H, Eosinophils (%) (Auto ) 0.9, Basophils (%) (Auto) 0.4, Sodium Level 139, Potassium Level 4.0, Chloride Level 110H, Carbon Dioxide Level 18L, Anion Gap 11, Blood Urea Nitrogen 26H, Creatinine 1.8H, Estimat Glomerular Filtration Rate , Glucose Level 203H, Calcium Level 7.3L, Phosphorus Level 2.3L, Magnesium Level 1.9, Total Bilirubin 0.3, Aspartate Amino Transf (AST/SGOT) 17, Alanine Aminotransferase (ALT/SGPT) 10L, Alkaline Phosphatase 49, Total Protein 5.8L, Albumin 1.5L, Globulin 4.3, Albumin/Globulin Ratio 0.3L, Random Vancomycin Level 15.0 Height (Feet): 5 Height (Inches): 9.00 Weight (Pounds): 174 Cardiovascular: normal rate Respiratory/Chest: lungs clear Subhash Corona MD Apr 10, 2019 21:31
--- NOTE | 2019-04-10 23:40 | NUR ---
HAND-OFF: Report given to MATT Churchill
--- NOTE | 2019-04-10 23:41 | NUR ---
NURSE NOTES: Received report from Minsu RN, patient is in no acute distress, asleep, VSS, afebrile, IV sites are clean dry and intact, F/C is patent and draining well, call light is within reach, bed is in low position, locked and alarm is on. Will continue to assess for safety and comfort.
[2019-04-11] MEDS: D5W w/KCl 20mEq 1,000 ML IV SCH ×3 (00:07→16:55)
[2019-04-11 00:16] VITALS: BP 118/58
[2019-04-11 04:00] VITALS: BP 130/56
[2019-04-11] MEDS: HydrALAZINE 50mg tab ORAL SCH ×4 (05:37→22:00)
[2019-04-11] MEDS: NovoLOG Insulin Flexpen SUBQ SCH ×4 (05:52→20:37)
[2019-04-11 06:26] LABS: BASOPHILS % (AUTO) 0.8 % (0.0-2.0); EOSINOPHILS % (AUTO) 1.2 % (0.0-3.0); HEMATOCRIT 27.6 % (42.0-52.0); HEMOGLOBIN 8.6 G/DL (14.2-18.0); LYMPHOCYTES % (AUTO) 14.5 % (20.0-45.0); MEAN CORPUSCULAR VOLUME 90 FL (80-99); MONOCYTES % (AUTO) 15.6 % (1.0-10.0); NEUTROPHILS % (AUTO) 67.9 % (45.0-75.0); PLATELET COUNT 101 K/UL (150-450); RED BLOOD COUNT 3.06 M/UL (4.70-6.10); RED CELL DISTRIBUTION WIDTH 17.7 % (11.6-14.8); WHITE BLOOD COUNT 5.4 K/UL (4.8-10.8)
[2019-04-11 06:58] LABS: ANION GAP 10 mmol/L (5-15); BLOOD UREA NITROGEN 23 mg/dL (7-18); CALCIUM 6.9 MG/DL (8.5-10.1); CARBON DIOXIDE 19 MMOL/L (21-32); CHLORIDE 110 MMOL/L (98-107); CREATININE 1.7 MG/DL (0.55-1.30); PHOSPHORUS 2.7 MG/DL (2.5-4.9); POTASSIUM 3.6 MMOL/L (3.5-5.1); SODIUM 139 MMOL/L (136-145)
--- NOTE | 2019-04-11 07:42 | NUR ---
HAND-OFF: Report given to Grayson GUTIERREZ.
--- NOTE | 2019-04-11 07:45 | NUR ---
NURSE NOTES: Received patient on bed, asleep. IV site intact and patent. Bed in low and locked position, call light in reach. No signs of respiratory distress or pain. Room board updated, will continue to monitor.
[2019-04-11 08:00] VITALS: BP 128/60
[2019-04-11] MEDS: Carvedilol 12.5mg tab ORAL SCH ×2 (10:22→20:35)
[2019-04-11] MEDS: Tamsulosin 0.4mg cap ORAL SCH ×2 (10:22→18:47)
[2019-04-11] MEDS: Vancomycin oral 125mg/2.5ml ORAL SCH ×4 (10:31→20:35)
--- NOTE | 2019-04-11 10:40 | Nephrology Progress Note ---
Assessment/Plan Problem List: (1) ARF (acute renal failure) (2) Acute on chronic renal insufficiency (3) Diabetes (4) HTN (hypertension) (5) Bladder cancer (6) Invasive carcinoma of urinary bladder (7) Anemia Assessment Acute renal failure ? Superimposed CKD Bladder Mass / h/o Hematuria HTN DM Anemia, previous transfusions s/p Cystoscopy 12/28 Plan hardly takes PO meds med-surg favor transfusion Hydrate richardson IV Iron K Supplement BP management, BP med adjustment Monitor lytes and renal parameters Kidney ESDRAS , no hydro per orders Previous Uro note: Tolerated bladder tumor resection well. Unfortunately greater part of the bladder is involved and essentially replaced all normal bladder with tumor. I can not resect all the tumors. Patient needs a radical cystectomy (removal of bladder) or radiation/chemotherapy at higher level of care. 1. recommend transfer to higher level of care for cystectomy 2. continue richardson, keep irrigation to maintain light pink urine. Multiple mass like lesions within the bladder. Further evaluation with cystoscopy is recommended to evaluate for possible neoplasm. Multiple parapelvic renal cysts Subjective ROS Limited/Unobtainable: No Constitutional: Reports: malaise, weakness Objective Objective Last 24 Hour Vital Signs Date Time Temp Pulse Resp B/P (MAP) Pulse Ox O2 Delivery O2 Flow Rate FiO2 04/11/19 10:22 72 128/60 04/11/19 10:05 Room Air 04/11/19 08:00 98.2 72 20 128/60 (82) 99 04/11/19 05:45 130/75 04/11/19 04:00 98.4 67 18 130/56 (80) 98 04/11/19 00:16 98.7 74 17 118/58 (78) 97 04/10/19 22:18 137/55 04/10/19 21:27 76 137/76 04/10/19 21:00 Room Air 04/10/19 20:00 97.0 77 18 156/70 (98) 100 04/10/19 16:00 98.7 75 20 145/87 (106) 95 04/10/19 14:00 130/53 04/10/19 12:15 99.5 71 18 130/53 (78) 100 Intake and Output 04/10/19 04/11/19 19:00 07:00 Intake Total 1375.273 ml 370 ml Output Total 250 ml 350 ml Balance 1125.273 ml 20 ml Intake Oral 120 ml IV Total 1375.273 ml 250 ml Output Urine Total 250 ml 350 ml # Voids 1 # Bowel Movements 2 Laboratory Tests 04/11/19 05:50: White Blood Count 5.4, Red Blood Count 3.06L, Hemoglobin 8.6L, Hematocrit 27.6L , Mean Corpuscular Volume 90, Mean Corpuscular Hemoglobin 28.3, Mean Corpuscular Hemoglobin Concent 31.3L, Red Cell Distribution Width 17.7H, Platelet Count 101L, Mean Platelet Volume 7.8, Neutrophils (%) (Auto) 67.9, Lymphocytes (%) (Auto) 14.5L, Monocytes (%) (Auto) 15.6H, Eosinophils (%) (Auto ) 1.2, Basophils (%) (Auto) 0.8, Sodium Level 139, Potassium Level 3.6, Chloride Level 110H, Carbon Dioxide Level 19L, Anion Gap 10, Blood Urea Nitrogen 23H, Creatinine 1.7H, Estimat Glomerular Filtration Rate , Glucose Level 186H, Calcium Level 6.9L, Phosphorus Level 2.7, Magnesium Level 1.7L Height (Feet): 5 Height (Inches): 9.00 Weight (Pounds): 174 General Appearance: no apparent distress Objective no change Russell Sofia MD Apr 11, 2019 10:40
--- NOTE | 2019-04-11 11:29 | NUR ---
NURSE NOTES: Patient has platelets 101 today. Contacted MD Mcallister who stated that it was ok to give heparin.
[2019-04-11] MEDS: Heparin 5000 units/ml inj SUBQ SCH ×2 (11:58→20:36)
[2019-04-11 12:00] VITALS: BP 118/50
--- NOTE | 2019-04-11 12:15 | GI Progress Note ---
Assessment/Plan Problems: (1) C. difficile colitis ICD Codes: A04.72 - Enterocolitis due to Clostridium difficile, not specified as recurrent SNOMED: 729273576 (2) Dehydration ICD Codes: E86.0 - Dehydration SNOMED: 17316790 (3) Anemia ICD Codes: D64.9 - Anemia, unspecified SNOMED: 034067882 Status: stable Status Narrative Discussed with Dr. Valiente. Assessment/Plan fecal occult blood stool positive x2 C. difficile positive diarrhea resolved Recommend EGD and colonoscopy at some point to evaluate possible GI bleed, will consider after holiday weekend if still inpatient. Antibiotics per infectious diseases off PPI IV and p.o. hydration plus electrolyte correction advance diet as tolerated Monitor H&H, PRN transfusions off all laxatives We will follow with additional recommendations on a daily basis Ensure s/p IVC filter placement The patient was seen and examined at bedside and all new and available data was reviewed in the patients chart. I agree with the above findings, impression and plan. (Patient seen earlier today. Signature stamp does not reflect patient encounter time.). - Terell Valiente MD Subjective Subjective states diarrhea has resolved Objective Last 24 Hour Vital Signs Date Time Temp Pulse Resp B/P (MAP) Pulse Ox O2 Delivery O2 Flow Rate FiO2 04/11/19 10:22 72 128/60 04/11/19 10:05 Room Air 04/11/19 08:00 98.2 72 20 128/60 (82) 99 04/11/19 05:45 130/75 04/11/19 04:00 98.4 67 18 130/56 (80) 98 04/11/19 00:16 98.7 74 17 118/58 (78) 97 04/10/19 22:18 137/55 04/10/19 21:27 76 137/76 04/10/19 21:00 Room Air 04/10/19 20:00 97.0 77 18 156/70 (98) 100 04/10/19 16:00 98.7 75 20 145/87 (106) 95 04/10/19 14:00 130/53 04/10/19 12:15 99.5 71 18 130/53 (78) 100 Intake and Output 04/10/19 04/11/19 19:00 07:00 Intake Total 1375.273 ml 370 ml Output Total 250 ml 350 ml Balance 1125.273 ml 20 ml Intake Oral 120 ml IV Total 1375.273 ml 250 ml Output Urine Total 250 ml 350 ml # Voids 1 # Bowel Movements 2 Laboratory Tests Test 04/11/19 05:50 White Blood Count 5.4 K/UL (4.8-10.8) Red Blood Count 3.06 M/UL (4.70-6.10) L Hemoglobin 8.6 G/DL (14.2-18.0) L Hematocrit 27.6 % (42.0-52.0) L Mean Corpuscular Volume 90 FL (80-99) Mean Corpuscular Hemoglobin 28.3 PG (27.0-31.0) Mean Corpuscular Hemoglobin Concent 31.3 G/DL (32.0-36.0) L Red Cell Distribution Width 17.7 % (11.6-14.8) H Platelet Count 101 K/UL (150-450) L Mean Platelet Volume 7.8 FL (6.5-10.1) Neutrophils (%) (Auto) 67.9 % (45.0-75.0) Lymphocytes (%) (Auto) 14.5 % (20.0-45.0) L Monocytes (%) (Auto) 15.6 % (1.0-10.0) H Eosinophils (%) (Auto) 1.2 % (0.0-3.0) Basophils (%) (Auto) 0.8 % (0.0-2.0) Sodium Level 139 MMOL/L (136-145) Potassium Level 3.6 MMOL/L (3.5-5.1) Chloride Level 110 MMOL/L (98-107) H Carbon Dioxide Level 19 MMOL/L (21-32) L Anion Gap 10 mmol/L (5-15) Blood Urea Nitrogen 23 mg/dL (7-18) H Creatinine 1.7 MG/DL (0.55-1.30) H Estimat Glomerular Filtration Rate mL/min (>60) Glucose Level 186 MG/DL (74-106) H Calcium Level 6.9 MG/DL (8.5-10.1) L Phosphorus Level 2.7 MG/DL (2.5-4.9) Magnesium Level 1.7 MG/DL (1.8-2.4) L Height (Feet): 5 Height (Inches): 9.00 Weight (Pounds): 174 General Appearance: WD/WN, no apparent distress, alert Cardiovascular: normal rate Respiratory/Chest: normal breath sounds, no respiratory distress Abdominal Exam: normal bowel sounds, non tender, soft Extremities: non-tender Omer Cunningham NP Apr 11, 2019 12:15
--- NOTE | 2019-04-11 12:55 | Pulmonology Progress Note ---
Assessment/Plan Problems: (1) C. difficile colitis (2) Acute respiratory failure with hypoxemia (3) Acute deep vein thrombosis (DVT) of both femoral veins (4) Thrombocytopenia (5) Invasive carcinoma of urinary bladder (6) CAD (coronary artery disease) (7) Anemia (8) Diabetes (9) HTN (hypertension) (10) Bladder cancer Assessment/Plan has diarrhea renal function improving V/q scan showed low probability PE venous studies of legs showed acute DVT bilaterally IVC filter done y respiratory treatment check electrolytes titrate fiio2 to sat of 92% dvt prophylaxis. renal function improving Subjective ROS Limited/Unobtainable: No Constitutional: Reports: no symptoms HEENT: Repors: no symptoms Respiratory: Reports: no symptoms Allergies: Coded Allergies: No Known Allergies (Unverified , 12/20/18) Objective Last 24 Hour Vital Signs Date Time Temp Pulse Resp B/P (MAP) Pulse Ox O2 Delivery O2 Flow Rate FiO2 04/11/19 10:22 72 128/60 04/11/19 10:05 Room Air 04/11/19 08:00 98.2 72 20 128/60 (82) 99 04/11/19 05:45 130/75 04/11/19 04:00 98.4 67 18 130/56 (80) 98 04/11/19 00:16 98.7 74 17 118/58 (78) 97 04/10/19 22:18 137/55 04/10/19 21:27 76 137/76 04/10/19 21:00 Room Air 04/10/19 20:00 97.0 77 18 156/70 (98) 100 04/10/19 16:00 98.7 75 20 145/87 (106) 95 04/10/19 14:00 130/53 Intake and Output 04/10/19 04/11/19 19:00 07:00 Intake Total 1375.273 ml 370 ml Output Total 250 ml 350 ml Balance 1125.273 ml 20 ml Intake Oral 120 ml IV Total 1375.273 ml 250 ml Output Urine Total 250 ml 350 ml # Voids 1 # Bowel Movements 2 Objective HEENT: normocephalic, atraumatic Respiratory/Chest: chest wall non-tender, normal breath sounds Cardiovascular: normal rate, regular rhythm Abdomen: normal bowel sounds, soft, non tender Genitourinary: normal external genitalia Extremities: no cyanosis Skin: no rash, no lesions Laboratory Tests 04/11/19 05:50: White Blood Count 5.4, Red Blood Count 3.06L, Hemoglobin 8.6L, Hematocrit 27.6L , Mean Corpuscular Volume 90, Mean Corpuscular Hemoglobin 28.3, Mean Corpuscular Hemoglobin Concent 31.3L, Red Cell Distribution Width 17.7H, Platelet Count 101L, Mean Platelet Volume 7.8, Neutrophils (%) (Auto) 67.9, Lymphocytes (%) (Auto) 14.5L, Monocytes (%) (Auto) 15.6H, Eosinophils (%) (Auto ) 1.2, Basophils (%) (Auto) 0.8, Sodium Level 139, Potassium Level 3.6, Chloride Level 110H, Carbon Dioxide Level 19L, Anion Gap 10, Blood Urea Nitrogen 23H, Creatinine 1.7H, Estimat Glomerular Filtration Rate , Glucose Level 186H, Calcium Level 6.9L, Phosphorus Level 2.7, Magnesium Level 1.7L Current Medications Medications (Trade) Dose Ordered Sig/Sallie Route PRN Reason Start Time Stop Time Status Last Admin Dose Admin Acetaminophen (Tylenol) 650 mg Q4H PRN ORAL fever 04/06/19 14:00 05/01/19 13:59 Allopurinol (Allopurinol) 300 mg DAILY ORAL 04/07/19 09:00 05/03/19 09:59 04/11/19 10:21 Carvedilol (Coreg) 12.5 mg EVERY 12 HOURS ORAL 04/06/19 21:00 05/01/19 08:59 04/11/19 10:22 Dextrose (Dextrose 50%) 25 ml Q30M PRN IV Hypoglycemia 04/06/19 14:00 05/01/19 10:29 Dextrose (Dextrose 50%) 50 ml Q30M PRN IV Hypoglycemia 04/06/19 14:00 05/01/19 10:29 Dextrose/ Electrolytes 1,000 ml @ 75 mls/hr [id number] IV 04/06/19 13:30 05/04/19 09:59 04/11/19 00:07 Heparin Sodium (Porcine) (Heparin 5000 units/ml) 5,000 units EVERY 12 HOURS SUBQ 04/06/19 21:00 05/01/19 08:59 04/11/19 11:58 Hydralazine HCl (Apresoline) 50 mg Q8HR ORAL 04/06/19 14:00 05/01/19 13:59 04/10/19 22:18 Insulin Aspart (NovoLOG) BEFORE MEALS AND HS SUBQ 04/06/19 16:30 05/01/19 11:29 04/11/19 12:00 Magnesium Sulfate 100 ml @ 100 mls/hr Q1H IVPB 04/11/19 11:00 04/11/19 12:59 04/11/19 11:57 Metronidazole 100 ml @ 100 mls/hr Q8HR IVPB 04/10/19 14:00 04/17/19 13:59 04/11/19 05:16 Minoxidil (Loniten) 2.5 mg Q4H PRN ORAL bp over 165 syst 04/06/19 14:00 05/01/19 13:59 Ondansetron HCl (Zofran) 4 mg Q6H PRN IVP Nausea & Vomiting 04/06/19 14:00 05/01/19 07:59 Quetiapine Fumarate (SEROqueL) 50 mg TWICE A DAY ORAL 04/06/19 18:00 05/03/19 17:59 04/11/19 10:23 Tamsulosin HCl (Flomax) 0.4 mg BID ORAL 04/06/19 18:00 05/01/19 12:59 04/11/19 10:22 Temazepam (Restoril) 15 mg HSPRN PRN ORAL Insomnia 04/06/19 14:00 04/13/19 13:59 Vancomycin HCl (Firvanq) 125 mg FOUR TIMES A DAY ORAL 04/06/19 18:00 04/17/19 23:59 04/11/19 10:31 Vancomycin HCl (Vanco rx to dose) 1 ea DAILY PRN MISC Per rx protocol 04/07/19 09:00 05/01/19 08:14 Adam Moyer MD Apr 11, 2019 12:55
--- NOTE | 2019-04-11 14:09 | NUR ---
NURSE NOTES: Patient took half of 1300 dose PO Vancomycin and refused half. Risks and benefits explained.
[2019-04-11] MEDS: LORazepam 0.5mg tab ORAL PRN (14:51)
--- NOTE | 2019-04-11 15:07 | Hematology/Onc Progress Note ---
Assessment/Plan Assessment/Plan Assessment and Recs: # ACUTE DEEP VEIN THROMBOSIS BILATERAL, new onset, from 04/02/19 s/p IVC filter on 05/06/[address] Arroyo --> reviewed images with radiology, goes from common to proximal common femoral v ein --> V/Q scan --> shows low prob pe --> given low h/h and low plts, recommend ivc filter placement, consent has been signed --> cleared with other consultants, zen RN --> s/p IVC filter by Dr Arroyo 04/06 --> hold off on anticoagulation until h/h other counts stabilize # Bladder cancer requires resection v chemo/xrt -- presented with multi masses CT shows Scattered eccentric mural thickening/masses in the urinary bladder wall , correlating with findings on recent ultrasound. No significant perivesical stranding. Recommend further evaluation with cystoscopy. --> urology consulted, appreciate input --> Uro note from prior admission: Tolerated bladder tumor resection well. Unfortunately greater part of the bladder is involved and essentially replaced all normal bladder with tumor. I can not resect all the tumors. --> may consider chemo/radiation as outpatient --> path does confirm malignancy --> CBI as needed per uro # Pancytopenia - potential causes multifactorial, evaluate liver and viral etiologies to begin, also could be related to underlying medications patient has received. --> Hep panel and HIV --> NEGATIVE --> US abd showed bladder masses--> ct reviewed as well --> Peripheral smear ordered to evaluate for blasts /schistocytes --> none noted --> abx and other meds have been reviewed --> ok for ppx if plt >50k w/ either heparin or lovenox --> trend plt >92-->104-->86-->73->117k --> wbc trend 3.7 # Anemia of iron deficiency likely due to hematuria --> iv iron x 5 days low ferritin, completed from prior admission --> likely due to hematuria --> have started on ivf and consider uro prn cysto --> hgb goal >7 --> cont po folic acid --> hgb trend: 7.4 # Acute renal injury --> cr >1.4-->1.4-->1.7-->1.5-->3.7->1.8 --> per renal recs --> volume expansion # HTN --> cards is following, appreciate recs # C. diff colitis --> on po vanc # Hematuria # UTI (urinary tract infection) --> per id on abx, cefe/vanc # Scrotal lesions --> per surg eval --> as per wound care # Dehydration # Dvt ppx heparin sq and ivf filter The timing of this note does not necessarily reflect the time of the patient was seen. GREATLY APPRECIATE CONSULTATION. Subjective Constitutional: Denies: no symptoms, chills, fever, malaise, weakness, other HEENT: Denies: no symptoms, eye pain, blurred vision, tearing, double vision, ear pain, ear discharge, nose pain, nose congestion, throat pain, throat swelling, mouth pain, mouth swelling, other Cardiovascular: Denies: no symptoms, chest pain, edema, irregular heart rate, lightheadedness, palpitations, syncope, other Respiratory: Denies: no symptoms, cough, shortness of breath, SOB with excertion, SOB at rest, sputum, wheezing, other Neurologic/Psychiatric: Denies: no symptoms, anxiety, depressed, emotional problems, headache, numbness, paresthesia, pre-existing deficit, seizure, tingling, tremors, weakness, other Endocrine: Denies: no symptoms, excessive sweating, flushing, intolerance to cold, intolerance to heat, increased hunger, increased thirst, increased urine, unexplained weight gain, unexplained weight loss, other Allergies: Coded Allergies: No Known Allergies (Unverified , 12/20/18) Subjective 04/03: s/p 1 bag iv iron, hgb 7.4, repeat cbc tomorrow, consent for ivc filter has been signed 04/04: is pending clearance of blood cultures, have dw id, potentially thurs for ivcf placement 04/05: no events, still pending ivc filter, have zen rn and id 04/06: no events, no bleeding, pending filter, as per id clearance 04/08: tolerated ivc filter well on 04/06, no events, no bleeding reported 04/09: no events, remains confused is on 2l nc, zen rn 04/10: no events, with lesion noted on penile shaft, no bleeding noted 04/11: no events, tolerated only half of vanc, plt 101, ok to give heparin sq Objective Objective Current Medications Medications (Trade) Dose Ordered Sig/Sallie Route PRN Reason Start Time Stop Time Status Last Admin Dose Admin Acetaminophen (Tylenol) 650 mg Q4H PRN ORAL fever 04/06/19 14:00 05/01/19 13:59 Allopurinol (Allopurinol) 300 mg DAILY ORAL 04/07/19 09:00 05/03/19 09:59 04/11/19 10:21 Carvedilol (Coreg) 12.5 mg EVERY 12 HOURS ORAL 04/06/19 21:00 05/01/19 08:59 04/11/19 10:22 Dextrose (Dextrose 50%) 25 ml Q30M PRN IV Hypoglycemia 04/06/19 14:00 05/01/19 10:29 Dextrose (Dextrose 50%) 50 ml Q30M PRN IV Hypoglycemia 04/06/19 14:00 05/01/19 10:29 Dextrose/ Electrolytes 1,000 ml @ 75 mls/hr [id number] IV 04/06/19 13:30 05/04/19 09:59 04/11/19 00:07 Heparin Sodium (Porcine) (Heparin 5000 units/ml) 5,000 units EVERY 12 HOURS SUBQ 04/06/19 21:00 05/01/19 08:59 04/11/19 11:58 Hydralazine HCl (Apresoline) 50 mg Q8HR ORAL 04/06/19 14:00 05/01/19 13:59 04/11/19 14:50 Insulin Aspart (NovoLOG) BEFORE MEALS AND HS SUBQ 04/06/19 16:30 05/01/19 11:29 04/11/19 12:00 Lorazepam (Ativan) 0.5 mg Q6H PRN ORAL For Anxiety 04/11/19 13:30 04/18/19 13:29 04/11/19 14:51 Memantine (Namenda) 5 mg BID ORAL 04/11/19 18:00 05/11/19 17:59 Metronidazole 100 ml @ 100 mls/hr Q8HR IVPB 04/10/19 14:00 04/17/19 13:59 04/11/19 14:52 Minoxidil (Loniten) 2.5 mg Q4H PRN ORAL bp over 165 syst 04/06/19 14:00 05/01/19 13:59 Ondansetron HCl (Zofran) 4 mg Q6H PRN IVP Nausea & Vomiting 04/06/19 14:00 05/01/19 07:59 Quetiapine Fumarate (SEROqueL) 50 mg TWICE A DAY ORAL 04/06/19 18:00 05/03/19 17:59 04/11/19 10:23 Tamsulosin HCl (Flomax) 0.4 mg BID ORAL 04/06/19 18:00 05/01/19 12:59 04/11/19 10:22 Temazepam (Restoril) 15 mg HSPRN PRN ORAL Insomnia 04/06/19 14:00 04/13/19 13:59 Vancomycin HCl (Firvanq) 125 mg FOUR TIMES A DAY ORAL 04/06/19 18:00 04/17/19 23:59 04/11/19 13:54 Vancomycin HCl (Vanco rx to dose) 1 ea DAILY PRN MISC Per rx protocol 04/07/19 09:00 05/01/19 08:14 Last 24 Hour Vital Signs Date Time Temp Pulse Resp B/P (MAP) Pulse Ox O2 Delivery O2 Flow Rate FiO2 04/11/19 14:50 118/50 04/11/19 10:22 72 128/60 04/11/19 10:05 Room Air 04/11/19 08:00 98.2 72 20 128/60 (82) 99 04/11/19 05:45 130/75 04/11/19 04:00 98.4 67 18 130/56 (80) 98 04/11/19 00:16 98.7 74 17 118/58 (78) 97 04/10/19 22:18 137/55 04/10/19 21:27 76 137/76 04/10/19 21:00 Room Air 04/10/19 20:00 97.0 77 18 156/70 (98) 100 04/10/19 16:00 98.7 75 20 145/87 (106) 95 04/10/19 14:00 130/53 04/10/19 12:15 99.5 71 18 130/53 (78) 100 04/10/19 08:56 71 141/56 04/10/19 08:19 96.1 71 16 141/56 (84) 100 04/10/19 08:15 Room Air 04/10/19 05:54 121/54 04/10/19 04:00 98.3 71 18 148/55 (86) 99 04/10/19 00:00 98.4 68 17 140/84 (102) 99 04/09/19 22:53 143/77 04/09/19 21:50 71 134/70 04/09/19 21:00 Room Air 04/09/19 20:00 97.9 71 17 99 04/09/19 16:00 98.7 70 18 154/61 (92) 99 Intake and Output 04/10/19 04/11/19 19:00 07:00 Intake Total 1375.273 ml 370 ml Output Total 250 ml 350 ml Balance 1125.273 ml 20 ml Intake Oral 120 ml IV Total 1375.273 ml 250 ml Output Urine Total 250 ml 350 ml # Voids 1 # Bowel Movements 2 Labs Test 04/09/19 02:00 04/09/19 06:10 04/10/19 06:10 04/11/19 05:50 Stool Occult Blood Positive (NEGATIVE) White Blood Count 4.7 K/UL (4.8-10.8) 5.2 K/UL (4.8-10.8) 5.4 K/UL (4.8-10.8) Red Blood Count 3.18 M/UL (4.70-6.10) 3.32 M/UL (4.70-6.10) 3.06 M/UL (4.70-6.10) Hemoglobin 9.0 G/DL (14.2-18.0) 9.2 G/DL (14.2-18.0) 8.6 G/DL (14.2-18.0) Hematocrit 27.8 % (42.0-52.0) 29.9 % (42.0-52.0) 27.6 % (42.0-52.0) Mean Corpuscular Volume 87 FL (80-99) 90 FL (80-99) 90 FL (80-99) Mean Corpuscular Hemoglobin 28.4 PG (27.0-31.0) 27.5 PG (27.0-31.0) 28.3 PG (27.0-31.0) Mean Corpuscular Hemoglobin Concent 32.6 G/DL (32.0-36.0) 30.6 G/DL (32.0-36.0) 31.3 G/DL (32.0-36.0) Red Cell Distribution Width 16.2 % (11.6-14.8) 18.0 % (11.6-14.8) 17.7 % (11.6-14.8) Platelet Count 104 K/UL (150-450) 110 K/UL (150-450) 101 K/UL (150-450) Mean Platelet Volume 9.3 FL (6.5-10.1) 7.7 FL (6.5-10.1) 7.8 FL (6.5-10.1) Neutrophils (%) (Auto) 72.4 % (45.0-75.0) 70.4 % (45.0-75.0) 67.9 % (45.0-75.0) Lymphocytes (%) (Auto) 13.2 % (20.0-45.0) 14.6 % (20.0-45.0) 14.5 % (20.0-45.0) Monocytes (%) (Auto) 13.1 % (1.0-10.0) 13.7 % (1.0-10.0) 15.6 % (1.0-10.0) Eosinophils (%) (Auto) 0.6 % (0.0-3.0) 0.9 % (0.0-3.0) 1.2 % (0.0-3.0) Basophils (%) (Auto) 0.7 % (0.0-2.0) 0.4 % (0.0-2.0) 0.8 % (0.0-2.0) Sodium Level 141 MMOL/L (136-145) 139 MMOL/L (136-145) 139 MMOL/L (136-145) Potassium Level 3.5 MMOL/L (3.5-5.1) 4.0 MMOL/L (3.5-5.1) 3.6 MMOL/L (3.5-5.1) Chloride Level 112 MMOL/L (98-107) 110 MMOL/L (98-107) 110 MMOL/L (98-107) Carbon Dioxide Level 20 MMOL/L (21-32) 18 MMOL/L (21-32) 19 MMOL/L (21-32) Anion Gap 9 mmol/L (5-15) 11 mmol/L (5-15) 10 mmol/L (5-15) Blood Urea Nitrogen 26 mg/dL (7-18) 26 mg/dL (7-18) 23 mg/dL (7-18) Creatinine 1.7 MG/DL (0.55-1.30) 1.8 MG/DL (0.55-1.30) 1.7 MG/DL (0.55-1.30) Estimat Glomerular Filtration Rate mL/min (>60) mL/min (>60) mL/min (>60) Glucose Level 216 MG/DL (74-106) 203 MG/DL (74-106) 186 MG/DL (74-106) Calcium Level 7.3 MG/DL (8.5-10.1) 7.3 MG/DL (8.5-10.1) 6.9 MG/DL (8.5-10.1) Phosphorus Level 2.3 MG/DL (2.5-4.9) 2.7 MG/DL (2.5-4.9) Magnesium Level 1.9 MG/DL (1.8-2.4) 1.7 MG/DL (1.8-2.4) Total Bilirubin 0.3 MG/DL (0.2-1.0) Aspartate Amino Transf (AST/SGOT) 17 U/L (15-37) Alanine Aminotransferase (ALT/SGPT) 10 U/L (12-78) Alkaline Phosphatase 49 U/L (46-116) Total Protein 5.8 G/DL (6.4-8.2) Albumin 1.5 G/DL (3.4-5.0) Globulin 4.3 g/dL Albumin/Globulin Ratio 0.3 (1.0-2.7) Random Vancomycin Level 15.0 ug/mL Height (Feet): 5 Height (Inches): 9.00 Weight (Pounds): 174 Objective Physical Exam Vital Signs: have been reviewed General Appearance: non-toxic, obese, Chronically Ill Respiratory: chest non-tender, lungs clear, mirian BSs, no rhonchi Cardiovascular: normal inspection, regular rate, rhythm, GI: normal inspection, soft Genitourinary: MAZNANO+ Musculoskeletal: normal inspection Neurologic: normal inspection, alert Psychiatric: normal inspection Skin: other - Marcelo Shen MD Apr 11, 2019 15:07
[2019-04-11 16:00] VITALS: BP 145/52
[2019-04-11] MEDS ORDERED: 1/2 NS 1000ml IV ONE (16:14)
[2019-04-11] MEDS ORDERED: Tubing IV Secondary IV ONE (16:14)
--- NOTE | 2019-04-11 17:13 | Infectious Diseases Prog Note ---
Assessment/Plan Assessment/Plan 83yo gentleman with PMH below presents from [facility] with confusion, wheezing and desaturation between 83-90%. Pt is oriented to self. Does not know where he is or why he is in the hospital. He initially says yes to abdominal pain, suprapubic pain, leg pain, arm pain but then denied it on second question. Denies fever, chills, cough, sob, diarrhea, dysuria. Unclear baseline. Pt recently had blood transfusion at [facility] 03/06. Pt was recently diagnosed with bladder cancer 12/2018 Afebrile On RA No leukocytosis No lactic acidosis Hypoxia at [facility], SP Possible PNA? flu swab negative CXR: Mild diffuse airspace opacities in both lungs. Lungs are underinflated.Lung findings are likely due to underinflation rather than pulmonary edema or atelectasis. Possible UTI? UA WBC TNTC, also moderate epithelial cells UCx: 50-60K amp sensitive E faecalis E faecalis bacteremia likely 2/ UTI 04/01 BCx: E faecalis 04/02 BCx: neg TTE without vegetation C diff + 04/04 Acute DVT pending IVC filter RIGHT LEG: Venous imaging reveals acute thrombus in the common to superficial femoral veins. LEFT LEG: Venous imaging reveals acute thrombus in the common to superficial femoral veins. SP IVC filter 04/06 Hypokalemia MRSA screen negative ANGELA on CKD CAD Bladder cancer HTN DM CVA Dyslipidemia CKD Anemia BPH Plan: continue vancomycin IV #02/26(tentative end date 04/15) and Vancomycin PO #12/27 IV Flagyl #2 as patient was refusing oral vancomycin -04/09 SP Cefepime #8 aspiration precaution, elevate HOB monitor temp and CBC needs 48hrs diarrhea free to discontinue isolation Thank you for this consult. [facility] will continue to follow the patient with you. Subjective Allergies: Coded Allergies: No Known Allergies (Unverified , 12/20/18) Subjective afebrile no leukocytosis was refusing oral vancomycin, and IV flagyl was started Objective Vital Signs Last 24 Hour Vital Signs Date Time Temp Pulse Resp B/P (MAP) Pulse Ox O2 Delivery O2 Flow Rate FiO2 04/11/19 16:00 98.2 70 20 145/52 (83) 97 04/11/19 14:50 118/50 04/11/19 12:00 98.2 77 16 118/50 (72) 99 04/11/19 10:22 72 128/60 04/11/19 10:05 Room Air 04/11/19 08:00 98.2 72 20 128/60 (82) 99 04/11/19 05:45 130/75 04/11/19 04:00 98.4 67 18 130/56 (80) 98 04/11/19 00:16 98.7 74 17 118/58 (78) 97 04/10/19 22:18 137/55 04/10/19 21:27 76 137/76 04/10/19 21:00 Room Air 04/10/19 20:00 97.0 77 18 156/70 (98) 100 Height (Feet): 5 Height (Inches): 9.00 Weight (Pounds): 174 Objective Constitutional: Denies: no symptoms, chills, fever, malaise, weakness, other HEENT: Denies: no symptoms, eye pain, blurred vision, tearing, double vision, ear pain, ear discharge, nose pain, nose congestion, throat pain, throat swelling, mouth pain, mouth swelling, other Cardiovascular: Denies: no symptoms, chest pain, edema, irregular heart rate, lightheadedness, palpitations, syncope, other Respiratory: Denies: no symptoms, cough, shortness of breath, SOB with excertion, SOB at rest, sputum, wheezing, other Neurologic/Psychiatric: Denies: no symptoms, anxiety, depressed, emotional problems, headache, numbness, paresthesia, pre-existing deficit, seizure, tingling, tremors, weakness, other Endocrine: Denies: no symptoms, excessive sweating, flushing, intolerance to cold, intolerance to heat, increased hunger, increased thirst, increased urine, unexplained weight gain, unexplained weight loss, other Laboratory Tests Test 04/11/19 05:50 White Blood Count 5.4 K/UL (4.8-10.8) Red Blood Count 3.06 M/UL (4.70-6.10) L Hemoglobin 8.6 G/DL (14.2-18.0) L Hematocrit 27.6 % (42.0-52.0) L Mean Corpuscular Volume 90 FL (80-99) Mean Corpuscular Hemoglobin 28.3 PG (27.0-31.0) Mean Corpuscular Hemoglobin Concent 31.3 G/DL (32.0-36.0) L Red Cell Distribution Width 17.7 % (11.6-14.8) H Platelet Count 101 K/UL (150-450) L Mean Platelet Volume 7.8 FL (6.5-10.1) Neutrophils (%) (Auto) 67.9 % (45.0-75.0) Lymphocytes (%) (Auto) 14.5 % (20.0-45.0) L Monocytes (%) (Auto) 15.6 % (1.0-10.0) H Eosinophils (%) (Auto) 1.2 % (0.0-3.0) Basophils (%) (Auto) 0.8 % (0.0-2.0) Sodium Level 139 MMOL/L (136-145) Potassium Level 3.6 MMOL/L (3.5-5.1) Chloride Level 110 MMOL/L (98-107) H Carbon Dioxide Level 19 MMOL/L (21-32) L Anion Gap 10 mmol/L (5-15) Blood Urea Nitrogen 23 mg/dL (7-18) H Creatinine 1.7 MG/DL (0.55-1.30) H Estimat Glomerular Filtration Rate mL/min (>60) Glucose Level 186 MG/DL (74-106) H Calcium Level 6.9 MG/DL (8.5-10.1) L Phosphorus Level 2.7 MG/DL (2.5-4.9) Magnesium Level 1.7 MG/DL (1.8-2.4) L Current Medications Medications (Trade) Dose Ordered Sig/Sallie Route PRN Reason Start Time Stop Time Status Last Admin Dose Admin Acetaminophen (Tylenol) 650 mg Q4H PRN ORAL fever 04/06/19 14:00 05/01/19 13:59 Allopurinol (Allopurinol) 300 mg DAILY ORAL 04/07/19 09:00 05/03/19 09:59 04/11/19 10:21 Carvedilol (Coreg) 12.5 mg EVERY 12 HOURS ORAL 04/06/19 21:00 05/01/19 08:59 04/11/19 10:22 Dextrose (Dextrose 50%) 25 ml Q30M PRN IV Hypoglycemia 04/06/19 14:00 05/01/19 10:29 Dextrose (Dextrose 50%) 50 ml Q30M PRN IV Hypoglycemia 04/06/19 14:00 05/01/19 10:29 Dextrose/ Electrolytes 1,000 ml @ 75 mls/hr [id number] IV 04/06/19 13:30 05/04/19 09:59 04/11/19 16:55 Heparin Sodium (Porcine) (Heparin 5000 units/ml) 5,000 units EVERY 12 HOURS SUBQ 04/06/19 21:00 05/01/19 08:59 04/11/19 11:58 Hydralazine HCl (Apresoline) 50 mg Q8HR ORAL 04/06/19 14:00 05/01/19 13:59 04/11/19 14:50 Insulin Aspart (NovoLOG) BEFORE MEALS AND HS SUBQ 04/06/19 16:30 05/01/19 11:29 04/11/19 16:54 Lorazepam (Ativan) 0.5 mg Q6H PRN ORAL For Anxiety 04/11/19 13:30 04/18/19 13:29 04/11/19 14:51 Memantine (Namenda) 5 mg BID ORAL 04/11/19 18:00 05/11/19 17:59 Metronidazole 100 ml @ 100 mls/hr Q8HR IVPB 04/10/19 14:00 04/17/19 13:59 04/11/19 14:52 Minoxidil (Loniten) 2.5 mg Q4H PRN ORAL bp over 165 syst 04/06/19 14:00 05/01/19 13:59 Ondansetron HCl (Zofran) 4 mg Q6H PRN IVP Nausea & Vomiting 04/06/19 14:00 05/01/19 07:59 Quetiapine Fumarate (SEROqueL) 50 mg TWICE A DAY ORAL 04/06/19 18:00 05/03/19 17:59 04/11/19 10:23 Tamsulosin HCl (Flomax) 0.4 mg BID ORAL 04/06/19 18:00 05/01/19 12:59 04/11/19 10:22 Temazepam (Restoril) 15 mg HSPRN PRN ORAL Insomnia 04/06/19 14:00 04/13/19 13:59 Vancomycin HCl (Firvanq) 125 mg FOUR TIMES A DAY ORAL 04/06/19 18:00 04/17/19 23:59 04/11/19 13:54 Vancomycin HCl (Vanco rx to dose) 1 ea DAILY PRN MISC Per rx protocol 04/07/19 09:00 05/01/19 08:14 Jyoti Piedra M.D. Apr 11, 2019 17:13
--- NOTE | 2019-04-11 17:20 | NUR ---
NURSE UNIT MANAGER NOTES PT ACCEPTED BACK TO EAST ROOM 301 BED A. OFFICIAL DC PENDING. NURSE TO CALL REPORT TO [phone]. NURSE TO CALL [facility] TO TRANSPORT ONCE DC ORDER IS PLACED.
--- NOTE | 2019-04-11 17:51 | General Progress Note ---
Assessment/Plan Problem List: (1) Electrolyte imbalance ICD Codes: E87.8 - Other disorders of electrolyte and fluid balance, not elsewhere classified SNOMED: 343375786 (2) Dehydration ICD Codes: E86.0 - Dehydration SNOMED: 61151857 (3) Anemia ICD Codes: D64.9 - Anemia, unspecified SNOMED: 003603966 (4) CAD (coronary artery disease) ICD Codes: I25.10 - Atherosclerotic heart disease of [place] coronary artery without angina pectoris SNOMED: 66049628 (5) Diabetes ICD Codes: E11.9 - Type 2 diabetes mellitus without complications SNOMED: 55080174 (6) HTN (hypertension) ICD Codes: I10 - Essential (primary) hypertension SNOMED: 01455933 (7) Urinary tract infection ICD Codes: N39.0 - Urinary tract infection, site not specified SNOMED: 15880068 (8) Bladder cancer ICD Codes: C67.9 - Malignant neoplasm of bladder, unspecified SNOMED: 190180832 (9) Acute on chronic renal insufficiency ICD Codes: N28.9 - Disorder of kidney and ureter, unspecified; N18.9 - Chronic kidney disease, unspecified SNOMED: 523387137, 934637341 Status: stable Assessment/Plan: vitals stable reviewed chart and labs resp insuff uti htn Subjective ROS Limited/Unobtainable: Yes Allergies: Coded Allergies: No Known Allergies (Unverified , 12/20/18) Objective Last 24 Hour Vital Signs Date Time Temp Pulse Resp B/P (MAP) Pulse Ox O2 Delivery O2 Flow Rate FiO2 04/11/19 16:00 98.2 70 20 145/52 (83) 97 04/11/19 14:50 118/50 04/11/19 12:00 98.2 77 16 118/50 (72) 99 04/11/19 10:22 72 128/60 04/11/19 10:05 Room Air 04/11/19 08:00 98.2 72 20 128/60 (82) 99 04/11/19 05:45 130/75 04/11/19 04:00 98.4 67 18 130/56 (80) 98 04/11/19 00:16 98.7 74 17 118/58 (78) 97 04/10/19 22:18 137/55 04/10/19 21:27 76 137/76 04/10/19 21:00 Room Air 04/10/19 20:00 97.0 77 18 156/70 (98) 100 Intake and Output 04/10/19 04/11/19 18:59 06:59 Intake Total 1375.273 ml 445 ml Output Total 250 ml 350 ml Balance 1125.273 ml 95 ml Intake Oral 120 ml IV Total 1375.273 ml 325 ml Output Urine Total 250 ml 350 ml # Voids 1 # Bowel Movements 2 Laboratory Tests 04/11/19 05:50: White Blood Count 5.4, Red Blood Count 3.06L, Hemoglobin 8.6L, Hematocrit 27.6L , Mean Corpuscular Volume 90, Mean Corpuscular Hemoglobin 28.3, Mean Corpuscular Hemoglobin Concent 31.3L, Red Cell Distribution Width 17.7H, Platelet Count 101L, Mean Platelet Volume 7.8, Neutrophils (%) (Auto) 67.9, Lymphocytes (%) (Auto) 14.5L, Monocytes (%) (Auto) 15.6H, Eosinophils (%) (Auto ) 1.2, Basophils (%) (Auto) 0.8, Sodium Level 139, Potassium Level 3.6, Chloride Level 110H, Carbon Dioxide Level 19L, Anion Gap 10, Blood Urea Nitrogen 23H, Creatinine 1.7H, Estimat Glomerular Filtration Rate , Glucose Level 186H, Calcium Level 6.9L, Phosphorus Level 2.7, Magnesium Level 1.7L Height (Feet): 5 Height (Inches): 9.00 Weight (Pounds): 174 Neck: supple Cardiovascular: normal rate Respiratory/Chest: lungs clear Subhash Corona MD Apr 11, 2019 17:51
[2019-04-11] MEDS: Memantine 5 MG TAB ORAL SCH ×2 (18:47→18:52)
--- NOTE | 2019-04-11 19:20 | Surgery Progress Note ---
Surgery Progress Note Subjective Additional Comments Patient resting comfortably. Penis wound reevaluated and stable. Cleaned up at bedside and bacitracin plan initiated. Objective Last 24 Hour Vital Signs Date Time Temp Pulse Resp B/P (MAP) Pulse Ox O2 Delivery O2 Flow Rate FiO2 04/11/19 16:00 98.2 70 20 145/52 (83) 97 04/11/19 14:50 118/50 04/11/19 12:00 98.2 77 16 118/50 (72) 99 04/11/19 10:22 72 128/60 04/11/19 10:05 Room Air 04/11/19 08:00 98.2 72 20 128/60 (82) 99 04/11/19 05:45 130/75 04/11/19 04:00 98.4 67 18 130/56 (80) 98 04/11/19 00:16 98.7 74 17 118/58 (78) 97 04/10/19 22:18 137/55 04/10/19 21:27 76 137/76 04/10/19 21:00 Room Air 04/10/19 20:00 97.0 77 18 156/70 (98) 100 I&O Intake and Output 04/10/19 04/11/19 18:59 06:59 Intake Total 1375.273 ml 445 ml Output Total 250 ml 350 ml Balance 1125.273 ml 95 ml Intake Oral 120 ml IV Total 1375.273 ml 325 ml Output Urine Total 250 ml 350 ml # Voids 1 # Bowel Movements 2 Dressing: saturated Wound: other Drains: other Cardiovascular: RSR Respiratory: decreased breath sounds Abdomen: soft, present bowel sounds, non-distended Extremities: no cyanosis, other Laboratory Tests Test 04/11/19 05:50 White Blood Count 5.4 K/UL (4.8-10.8) Red Blood Count 3.06 M/UL (4.70-6.10) L Hemoglobin 8.6 G/DL (14.2-18.0) L Hematocrit 27.6 % (42.0-52.0) L Mean Corpuscular Volume 90 FL (80-99) Mean Corpuscular Hemoglobin 28.3 PG (27.0-31.0) Mean Corpuscular Hemoglobin Concent 31.3 G/DL (32.0-36.0) L Red Cell Distribution Width 17.7 % (11.6-14.8) H Platelet Count 101 K/UL (150-450) L Mean Platelet Volume 7.8 FL (6.5-10.1) Neutrophils (%) (Auto) 67.9 % (45.0-75.0) Lymphocytes (%) (Auto) 14.5 % (20.0-45.0) L Monocytes (%) (Auto) 15.6 % (1.0-10.0) H Eosinophils (%) (Auto) 1.2 % (0.0-3.0) Basophils (%) (Auto) 0.8 % (0.0-2.0) Sodium Level 139 MMOL/L (136-145) Potassium Level 3.6 MMOL/L (3.5-5.1) Chloride Level 110 MMOL/L (98-107) H Carbon Dioxide Level 19 MMOL/L (21-32) L Anion Gap 10 mmol/L (5-15) Blood Urea Nitrogen 23 mg/dL (7-18) H Creatinine 1.7 MG/DL (0.55-1.30) H Estimat Glomerular Filtration Rate mL/min (>60) Glucose Level 186 MG/DL (74-106) H Calcium Level 6.9 MG/DL (8.5-10.1) L Phosphorus Level 2.7 MG/DL (2.5-4.9) Magnesium Level 1.7 MG/DL (1.8-2.4) L Plan Problems: (1) Scrotal lesion Assessment & Plan: This is a 83-year-old male with multiple medical morbidities who was identified to have abnormal scrotal lesions on admission. There are 3 lesions on the scrotum clearly identified and likely old small abscesses or carbuncles which have healed slowly. Patient is incontinent With leakage of stool identified around the scrotal sac on the posterior aspect where the lesions are located. No signs of active infection no active drainage nontender skin macerated Recommend washing the scrotum daily with normal saline. Apply skin protectant and moisture absorbent dressing daily and as needed saturation Physical examination was identified to have a draining pustule in the left shaft base of the penis. There is an opening less than a centimeter with drainage of some mild seropurulent fluid and some slough. Wound irrigated cleansed and some non-excisional debridement with gauze was performed. There is significant edema in the area no cellulitis skin otherwise intact. Fair amount of moisture in the area. Will continue with local care We will follow and monitor for healing (2) Sacral decubitus ulcer, stage III Assessment & Plan: Pt presented on admission with multiple pressure injuries. Full thickness sacral pressure injury. Base of wound is viable with an area that is purple in center. Semi-detached black borders(L)9.5cm x (W)4.9cm x(D) 0.2cm .Non-blanching erythema periwound. Multiple pressure injuries Scrotum. Base of pressure injury R scrotum 75% pink granulation,25% slough. Edges pink,flat and adherent to base of wound.(L)2.2cm x (W)0.9cm.Ful thickness pressure injury center -base of scrotum (L)0.5cm x (W) 0.4cm. Base of wound has 100% slough. Full thickness pressure injury L scrotum ( L)2cm x (W01.1cm. Base of wound has 90% slough ,10% viable. Reabsorbing blood blister R heel heel. Base of wound black (L)2.2cm x (W)2cm with red tinged borders with fluctuance. (L)5.5cm x(W)5cm. Reabsorbing Blood Blister L heel. Base of wound is black ,dry with maroon and fluctuant borders.(L)6.5cm x (W)6cm Abd folds are moist and dark but is intact. Penile wound identified. Now open from edema. Slough noted. Slough wiped and cleaned. Non-excisional debridement performed. Wound stable. No longer draining. Tx.Plan: Cleanse Sacral wound with Saline. Apply Therahoney. Apply Moisture Barrier Paste periwound. Cover with Optifoam drsg Daily and prn. Cleanse wounds on Scrotum with saline. Apply Therhaoney to each wound. Cover with Optifoam drsg. Change Daily and prn. Bacitracin to penile wound. Apply Moisture Barrier to Abd folds and Bilat groin Daily and prn. APM/NOLBERTO Mattress overlay. Reposition at least every 2hours or as tolerated. Off-load heels with pillow. (3) Bladder cancer (4) C. difficile colitis Assessment & Plan: blood cultures negative C diff positive - discussed with ID cont abx labs noted and improved exam stable cont current tx Bebeto Pepe Apr 11, 2019 19:20
--- NOTE | 2019-04-11 19:31 | NUR ---
HAND-OFF: Report given to MATT Valdovinos.
[2019-04-11 20:00] VITALS: BP 118/60
--- NOTE | 2019-04-11 22:13 | NUR ---
NURSE NOTES: Patient in bed, awake, alert x 1 to name, confused. IV site noted, iv fluid is infusing as ordered. No s/s of pain or discomfort noted. Abdomen is soft and non distended. Skin is warm and dry to touch. Wound noted on sacral and lower extremities. Respiration is even and unlabored. Bed in low and locked position. Provided safe environment. Call light is at bedside. Will continue plan of care.
--- NOTE | 2019-04-11 23:46 | Consultation ---
DATE OF CONSULTATION: 04/11/2019 INITIAL PSYCHIATRIC EVALUATION CONSULTING PHYSICIAN: Ami Hennessy M.D. HISTORY OF PRESENT ILLNESS: This is an 83-year-old male patient. The patient was admitted to the hospital secondary to his low O2 saturation and he has been very confused, disorganized secondary to decline in his cognition and he has been having significant confusion, disorganized thought process, and he is a very poor historian collateral information had to be obtained through chart review. That is why his attending has requested daily psychiatric consultation because his cognition has declined significantly below baseline and goal to improve his cognition close to his baseline. PAST MEDICAL HISTORY: Urinary tract infection, coronary artery disease, CVA, diabetes, and hypertension. ALLERGIES: No known drug allergies. PSYCHOTROPIC MEDICATIONS ON ADMISSION: Seroquel 50 mg twice a day. SUBSTANCE ABUSE HISTORY: Denies drug or alcohol use. FAMILY PSYCHIATRIC HISTORY: Denies. PAIN ASSESSMENT: 0/10 pain. DEVELOPMENTAL PROBLEMS: Denies. SOCIAL HISTORY: He lives in [facility]. Financially supported by [facility] and Medicare. PAST PSYCHIATRIC HISTORY: He has been seen by Psychiatry at his snf and multiple times in inpatient unit for psychosis. STRENGTHS: Motivated to get better and has a place to live. WEAKNESSES: Impulsive and minimal support system. MENTAL STATUS EXAMINATION: This is an 83-year-old male. His appearance is disheveled. Attitude, irritable and agitated. Affect is flat. Intellect poor, he has no current events, does not know last four presidents. Mood, depressed and anxious. Motor activity, psychomotor agitation. Attention span is poor because he cannot do serial sevens or spell "world" backwards. Orientation x1 person only, but not to place, time, situation. Speech is nonsensical. Thought process, disorganized and illogical. Thought content seems to have some paranoia. Perception is poor secondary to paranoid delusions. Abstract reasoning is poor. The patient does not understand proverbs, only has concrete thinking. Insight is poor. He does not recognize having a psychiatric disorder. Judgment is poor because he cannot make medical decisions for himself. No signs of any suicidal or homicidal ideation. Short-term memory recall, poor short-term memory. Long-term memory is poor because he is unable to recall long-term events in his life such as high school that he went to. DIAGNOSES: 1. Major depressive disorder, severe, recurrent with psychotic features, rule out dementia with psychosis, rule out paranoid schizophrenia. 2. Medical includes CVA, coronary artery disease, urinary retention, diabetes, hypertension. 3. Psychosocial stressors, financial. 4. Functional impairment is moderate. PLAN: I am going to continue on Seroquel 50 mg twice a day, but I am also going to add a dose of Ativan at a dose of 0.5 mg every 6 hours p.r.n. anxiety and agitation. Twenty minutes of insight-oriented psychotherapy to help recognize having a psychiatric disorder for better impulse control and behavior on the unit. Twenty minutes of insight-oriented psychotherapy. In addition, I am going to add Namenda 5 mg twice a day to try to prevent any further decline in cognition and continue to be followed throughout hospital course, and he will continue to be followed throughout the hospital course. Chart was reviewed and discussed with staff. Seen and assessed in his room. I would like to thank Dr. Jamie Gray for this interesting psychiatric consultation. I will be happy to follow this patient with you throughout this hospital course. Chart was reviewed and discussed with staff. Ami Hennessy M.D. DR: BRADLEY JOB#: [id number] CC:
[2019-04-12] VITALS: BP 124/65
[2019-04-12 04:00] VITALS: BP 133/67
[2019-04-12 05:20] LABS: BASOPHILS % (AUTO) 1.2 % (0.0-2.0); EOSINOPHILS % (AUTO) 1.5 % (0.0-3.0); HEMATOCRIT 26.5 % (42.0-52.0); HEMOGLOBIN 8.4 G/DL (14.2-18.0); LYMPHOCYTES % (AUTO) 19.1 % (20.0-45.0); MEAN CORPUSCULAR VOLUME 89 FL (80-99); MONOCYTES % (AUTO) 17.3 % (1.0-10.0); PLATELET COUNT 119 K/UL (150-450); RED BLOOD COUNT 2.97 M/UL (4.70-6.10); RED CELL DISTRIBUTION WIDTH 17.6 % (11.6-14.8); WHITE BLOOD COUNT 4.1 K/UL (4.8-10.8)
[2019-04-12 05:59] LABS: ANION GAP 9 mmol/L (5-15); BLOOD UREA NITROGEN 21 mg/dL (7-18); CALCIUM 6.9 MG/DL (8.5-10.1); CARBON DIOXIDE 19 MMOL/L (21-32); CHLORIDE 109 MMOL/L (98-107); CREATININE 1.8 MG/DL (0.55-1.30); POTASSIUM 3.5 MMOL/L (3.5-5.1); SODIUM 137 MMOL/L (136-145)
[2019-04-12] MEDS: HydrALAZINE 50mg tab ORAL SCH ×3 (06:18→21:48)
[2019-04-12] MEDS: NovoLOG Insulin Flexpen SUBQ SCH ×4 (06:22→21:47)
--- NOTE | 2019-04-12 07:10 | NUR ---
HAND-OFF: Report given to Pedro Clements.
--- NOTE | 2019-04-12 07:39 | NUR ---
NURSE NOTES: PT RESTING IN BED, IN HIGH WYNNE'S POSITION. PT IS AXOX1, CONFUSED. PT IS VERBAL, INAPPROPRIATE. RN ATTEMPTED TO RE-ORIENT PT TO PERSON, PLACE AND TIME. PT KEEPS INSISTING HE IS AT [facility] DESPITE RN'S ATTEMPT TO RE-ORIENT TO [facility]. IN NO APPARENT DISTRESS AT THIS TIME. BED IN LOWEST POSITION WITH BEDSIDE RAILS X3 RAISED. BED ALARM ON ZONE 1. CALL LIGHT WITHIN REACH. WILL CONTINUE TO MONITOR.
[2019-04-12 08:00] VITALS: BP 147/62
[2019-04-12] MEDS ORDERED: Vancomycin 1.25gm/NS Premix IVPB ONE (08:00)
[2019-04-12] MEDS: D5W w/KCl 20mEq 1,000 ML IV SCH (08:04)
--- NOTE | 2019-04-12 08:06 | General Progress Note ---
Assessment/Plan Status: stable Assessment/Plan: Assessment/Plan Problems: (1) C. difficile colitis ICD Codes: A04.72 - Enterocolitis due to Clostridium difficile, not specified as recurrent SNOMED: 943637229 (2) Dehydration ICD Codes: E86.0 - Dehydration SNOMED: 59127551 (3) Anemia ICD Codes: D64.9 - Anemia, unspecified SNOMED: 558332683 Status: stable Assessment/Plan fecal occult blood stool positive x2 C. difficile positive diarrhea resolved Recommend EGD and colonoscopy at some point to evaluate possible GI bleed, will consider after holiday weekend if still inpatient. Antibiotics per infectious diseases off PPI IV and p.o. hydration plus electrolyte correction advance diet as tolerated Monitor H&H, PRN transfusions off all laxatives We will follow with additional recommendations on a daily basis Ensure s/p IVC filter placement Subjective Allergies: Coded Allergies: No Known Allergies (Unverified , 12/20/18) Objective Last 24 Hour Vital Signs Date Time Temp Pulse Resp B/P (MAP) Pulse Ox O2 Delivery O2 Flow Rate FiO2 04/12/19 06:18 133/67 04/12/19 04:00 97.8 74 20 133/67 (89) 98 04/12/19 00:00 98.1 77 19 124/65 (84) 97 04/11/19 22:00 118/60 04/11/19 21:00 Room Air 04/11/19 20:35 72 118/60 04/11/19 20:00 97.6 72 17 118/60 (79) 98 04/11/19 19:28 95 Nasal Cannula 2.0 28 04/11/19 16:00 98.2 70 20 145/52 (83) 97 04/11/19 14:50 118/50 04/11/19 12:00 98.2 77 16 118/50 (72) 99 04/11/19 10:22 72 128/60 04/11/19 10:05 Room Air Intake and Output 04/11/19 04/12/19 19:00 07:00 Intake Total 990 ml 1090 ml Output Total 600 ml 350 ml Balance 390 ml 740 ml Intake Oral 240 ml 240 ml IV Total 750 ml 850 ml Output Urine Total 600 ml 350 ml # Voids 1 # Bowel Movements 1 1 Laboratory Tests 04/12/19 05:05: White Blood Count 4.1L, Red Blood Count 2.97L, Hemoglobin 8.4L, Hematocrit 26.5L , Mean Corpuscular Volume 89, Mean Corpuscular Hemoglobin 28.4, Mean Corpuscular Hemoglobin Concent 31.8L, Red Cell Distribution Width 17.6H, Platelet Count 119L, Mean Platelet Volume 7.9, Neutrophils (%) (Auto) 61.0, Lymphocytes (%) (Auto) 19.1L, Monocytes (%) (Auto) 17.3H, Eosinophils (%) (Auto ) 1.5, Basophils (%) (Auto) 1.2, Sodium Level 137, Potassium Level 3.5, Chloride Level 109H, Carbon Dioxide Level 19L, Anion Gap 9, Blood Urea Nitrogen 21H, Creatinine 1.8H, Estimat Glomerular Filtration Rate , Glucose Level 158H, Calcium Level 6.9L, Random Vancomycin Level 14.2 Height (Feet): 5 Height (Inches): 9.00 Weight (Pounds): 174 General Appearance: no apparent distress EENT: normal ENT inspection Neck: supple Cardiovascular: normal rate Respiratory/Chest: decreased breath sounds Abdomen: normal bowel sounds, non tender, soft Extremities: non-tender Terell Valiente MD Apr 12, 2019 08:06
[2019-04-12] MEDS: Vancomycin oral 125mg/2.5ml ORAL SCH ×4 (09:36→21:46)
[2019-04-12] MEDS: Bacitracin Oint UD TOPIC SCH ×2 (09:37→17:21)
[2019-04-12] MEDS: Carvedilol 12.5mg tab ORAL SCH ×2 (09:37→21:46)
[2019-04-12] MEDS: Heparin 5000 units/ml inj SUBQ SCH ×2 (09:37→21:00)
[2019-04-12] MEDS: Memantine 5 MG TAB ORAL SCH ×2 (09:37→17:21)
[2019-04-12] MEDS: Tamsulosin 0.4mg cap ORAL SCH ×2 (09:37→17:20)
--- NOTE | 2019-04-12 10:37 | NUR ---
NURSE NOTES: PT YELLS REPETITIVELY "HELP! HELP! HELP!". PT STATES HE WOULD LIKE TO LAY DOWN AND DRINK WATER. RN EDUCATED PT HE NEEDS RO SIT UP TO DRINK WATER AND EAT. RISK FOR CHOKING. PT CONTINUES TO YELL "SIT ME UP! SIT ME UP! SIT ME UP!". RN SAT PT IN HIGH WYNNE'S POSITION AND ATTEMPTED TO GIVE ORDERED NECTAR THICK LIQUIDS BY SPOON. PT LOOKED AT NECTAR THICK WATER AND YELLED "NO! TAKE IT AWAY! TAKE IT AWAY! TAKE IT AWAY!". RN ATTEMPTED TO EDUCATE PT HE CAN ONLY DRINK NECTAR THICK LIQUIDS DUE TO ASPIRATION PRECAUTIONS. PT UNABLE TO COMPREHEND. PT HAS IVF D5W + 20MEQ KCL RUNNING AT 75CC/H. WILL CONTINUE TO MONITOR.
--- NOTE | 2019-04-12 11:51 | Nephrology Progress Note ---
Assessment/Plan Problem List: (1) ARF (acute renal failure) (2) Acute on chronic renal insufficiency (3) Diabetes (4) HTN (hypertension) (5) Bladder cancer (6) Invasive carcinoma of urinary bladder (7) Anemia Assessment Acute renal failure ? Superimposed CKD Bladder Mass / h/o Hematuria HTN DM Anemia, previous transfusions s/p Cystoscopy 12/28 Plan hardly takes PO meds med-surg favor transfusion Hydrate richardson IV Iron K Supplement BP management, BP med adjustment Monitor lytes and renal parameters Kidney ESDRAS , no hydro per orders Previous Uro note: Tolerated bladder tumor resection well. Unfortunately greater part of the bladder is involved and essentially replaced all normal bladder with tumor. I can not resect all the tumors. Patient needs a radical cystectomy (removal of bladder) or radiation/chemotherapy at higher level of care. 1. recommend transfer to higher level of care for cystectomy 2. continue richardson, keep irrigation to maintain light pink urine. Multiple mass like lesions within the bladder. Further evaluation with cystoscopy is recommended to evaluate for possible neoplasm. Multiple parapelvic renal cysts Subjective ROS Limited/Unobtainable: No Constitutional: Reports: malaise Objective Objective Last 24 Hour Vital Signs Date Time Temp Pulse Resp B/P (MAP) Pulse Ox O2 Delivery O2 Flow Rate FiO2 04/12/19 09:37 71 147/62 04/12/19 09:00 Room Air 04/12/19 08:00 97.9 71 19 147/62 (90) 99 04/12/19 06:18 133/67 04/12/19 04:00 97.8 74 20 133/67 (89) 98 04/12/19 00:00 98.1 77 19 124/65 (84) 97 04/11/19 22:00 118/60 04/11/19 21:00 Room Air 04/11/19 20:35 72 118/60 04/11/19 20:00 97.6 72 17 118/60 (79) 98 04/11/19 19:28 95 Nasal Cannula 2.0 28 04/11/19 16:00 98.2 70 20 145/52 (83) 97 04/11/19 14:50 118/50 04/11/19 12:00 98.2 77 16 118/50 (72) 99 Intake and Output 04/11/19 04/12/19 19:00 07:00 Intake Total 990 ml 1090 ml Output Total 600 ml 350 ml Balance 390 ml 740 ml Intake Oral 240 ml 240 ml IV Total 750 ml 850 ml Output Urine Total 600 ml 350 ml # Voids 1 # Bowel Movements 1 1 Laboratory Tests 04/12/19 05:05: White Blood Count 4.1L, Red Blood Count 2.97L, Hemoglobin 8.4L, Hematocrit 26.5L , Mean Corpuscular Volume 89, Mean Corpuscular Hemoglobin 28.4, Mean Corpuscular Hemoglobin Concent 31.8L, Red Cell Distribution Width 17.6H, Platelet Count 119L, Mean Platelet Volume 7.9, Neutrophils (%) (Auto) 61.0, Lymphocytes (%) (Auto) 19.1L, Monocytes (%) (Auto) 17.3H, Eosinophils (%) (Auto ) 1.5, Basophils (%) (Auto) 1.2, Sodium Level 137, Potassium Level 3.5, Chloride Level 109H, Carbon Dioxide Level 19L, Anion Gap 9, Blood Urea Nitrogen 21H, Creatinine 1.8H, Estimat Glomerular Filtration Rate , Glucose Level 158H, Calcium Level 6.9L, Random Vancomycin Level 14.2 Height (Feet): 5 Height (Inches): 9.00 Weight (Pounds): 174 General Appearance: no apparent distress Objective no change Russell Sofia MD Apr 12, 2019 11:51
[2019-04-12 12:00] VITALS: BP 133/63
[2019-04-12] MEDS: LORazepam 0.5mg tab ORAL PRN (13:08)
--- NOTE | 2019-04-12 13:19 | Surgery Progress Note ---
Surgery Progress Note Subjective Additional Comments comfortable labs noted exam stable Objective Last 24 Hour Vital Signs Date Time Temp Pulse Resp B/P (MAP) Pulse Ox O2 Delivery O2 Flow Rate FiO2 04/12/19 13:08 133/63 04/12/19 12:00 97.9 73 18 133/63 (86) 98 04/12/19 09:37 71 147/62 04/12/19 09:00 Room Air 04/12/19 08:00 97.9 71 19 147/62 (90) 99 04/12/19 06:18 133/67 04/12/19 04:00 97.8 74 20 133/67 (89) 98 04/12/19 00:00 98.1 77 19 124/65 (84) 97 04/11/19 22:00 118/60 04/11/19 21:00 Room Air 04/11/19 20:35 72 118/60 04/11/19 20:00 97.6 72 17 118/60 (79) 98 04/11/19 19:28 95 Nasal Cannula 2.0 28 04/11/19 16:00 98.2 70 20 145/52 (83) 97 04/11/19 14:50 118/50 I&O Intake and Output 04/11/19 04/12/19 19:00 07:00 Intake Total 990 ml 1090 ml Output Total 600 ml 350 ml Balance 390 ml 740 ml Intake Oral 240 ml 240 ml IV Total 750 ml 850 ml Output Urine Total 600 ml 350 ml # Voids 1 # Bowel Movements 1 1 Dressing: saturated, other Wound: other Drains: other Cardiovascular: RSR Respiratory: decreased breath sounds Abdomen: soft, present bowel sounds, other Extremities: no cyanosis, other Laboratory Tests Test 04/12/19 05:05 White Blood Count 4.1 K/UL (4.8-10.8) L Red Blood Count 2.97 M/UL (4.70-6.10) L Hemoglobin 8.4 G/DL (14.2-18.0) L Hematocrit 26.5 % (42.0-52.0) L Mean Corpuscular Volume 89 FL (80-99) Mean Corpuscular Hemoglobin 28.4 PG (27.0-31.0) Mean Corpuscular Hemoglobin Concent 31.8 G/DL (32.0-36.0) L Red Cell Distribution Width 17.6 % (11.6-14.8) H Platelet Count 119 K/UL (150-450) L Mean Platelet Volume 7.9 FL (6.5-10.1) Neutrophils (%) (Auto) 61.0 % (45.0-75.0) Lymphocytes (%) (Auto) 19.1 % (20.0-45.0) L Monocytes (%) (Auto) 17.3 % (1.0-10.0) H Eosinophils (%) (Auto) 1.5 % (0.0-3.0) Basophils (%) (Auto) 1.2 % (0.0-2.0) Sodium Level 137 MMOL/L (136-145) Potassium Level 3.5 MMOL/L (3.5-5.1) Chloride Level 109 MMOL/L (98-107) H Carbon Dioxide Level 19 MMOL/L (21-32) L Anion Gap 9 mmol/L (5-15) Blood Urea Nitrogen 21 mg/dL (7-18) H Creatinine 1.8 MG/DL (0.55-1.30) H Estimat Glomerular Filtration Rate mL/min (>60) Glucose Level 158 MG/DL (74-106) H Calcium Level 6.9 MG/DL (8.5-10.1) L Random Vancomycin Level 14.2 ug/mL Plan Problems: (1) Scrotal lesion Assessment & Plan: This is a 83-year-old male with multiple medical morbidities who was identified to have abnormal scrotal lesions on admission. There are 3 lesions on the scrotum clearly identified and likely old small abscesses or carbuncles which have healed slowly. Patient is incontinent With leakage of stool identified around the scrotal sac on the posterior aspect where the lesions are located. No signs of active infection no active drainage nontender skin macerated Recommend washing the scrotum daily with normal saline. Apply skin protectant and moisture absorbent dressing daily and as needed saturation Physical examination was identified to have a draining pustule in the left shaft base of the penis. There is an opening less than a centimeter with drainage of some mild seropurulent fluid and some slough. Wound irrigated cleansed and some non-excisional debridement with gauze was performed. There is significant edema in the area no cellulitis skin otherwise intact. Fair amount of moisture in the area. Will continue with local care We will follow and monitor for healing (2) Sacral decubitus ulcer, stage III Assessment & Plan: Pt presented on admission with multiple pressure injuries. Full thickness sacral pressure injury. Base of wound is viable with an area that is purple in center. Semi-detached black borders(L)9.5cm x (W)4.9cm x(D) 0.2cm .Non-blanching erythema periwound. Multiple pressure injuries Scrotum. Base of pressure injury R scrotum 75% pink granulation,25% slough. Edges pink,flat and adherent to base of wound.(L)2.2cm x (W)0.9cm.Ful thickness pressure injury center -base of scrotum (L)0.5cm x (W) 0.4cm. Base of wound has 100% slough. Full thickness pressure injury L scrotum ( L)2cm x (W01.1cm. Base of wound has 90% slough ,10% viable. Reabsorbing blood blister R heel heel. Base of wound black (L)2.2cm x (W)2cm with red tinged borders with fluctuance. (L)5.5cm x(W)5cm. Reabsorbing Blood Blister L heel. Base of wound is black ,dry with maroon and fluctuant borders.(L)6.5cm x (W)6cm Abd folds are moist and dark but is intact. Penile wound identified. Now open from edema. Slough noted. Slough wiped and cleaned. Non-excisional debridement performed. Wound stable. No longer draining. Tx.Plan: Cleanse Sacral wound with Saline. Apply Therahoney. Apply Moisture Barrier Paste periwound. Cover with Optifoam drsg Daily and prn. Cleanse wounds on Scrotum with saline. Apply Therhaoney to each wound. Cover with Optifoam drsg. Change Daily and prn. Bacitracin to penile wound. Apply Moisture Barrier to Abd folds and Bilat groin Daily and prn. APM/NOLBERTO Mattress overlay. Reposition at least every 2hours or as tolerated. Off-load heels with pillow. (3) Bladder cancer (4) C. difficile colitis Assessment & Plan: blood cultures negative C diff positive - discussed with ID cont abx labs noted and improved exam stable cont current tx Bebeto Pepe Apr 12, 2019 13:19
--- NOTE | 2019-04-12 13:23 | Pulmonology Progress Note ---
Assessment/Plan Problems: (1) C. difficile colitis (2) Acute respiratory failure with hypoxemia (3) Acute deep vein thrombosis (DVT) of both femoral veins (4) Thrombocytopenia (5) Invasive carcinoma of urinary bladder (6) CAD (coronary artery disease) (7) Anemia (8) Diabetes (9) HTN (hypertension) (10) Bladder cancer Assessment/Plan has diarrhea renal function improving V/q scan showed low probability PE venous studies of legs showed acute DVT bilaterally IVC filter done y respiratory treatment check electrolytes titrate fiio2 to sat of 92% dvt prophylaxis. renal function improving Subjective ROS Limited/Unobtainable: No Constitutional: Reports: no symptoms Allergies: Coded Allergies: No Known Allergies (Unverified , 12/20/18) Objective Last 24 Hour Vital Signs Date Time Temp Pulse Resp B/P (MAP) Pulse Ox O2 Delivery O2 Flow Rate FiO2 04/12/19 13:08 133/63 04/12/19 12:00 97.9 73 18 133/63 (86) 98 04/12/19 09:37 71 147/62 04/12/19 09:00 Room Air 04/12/19 08:00 97.9 71 19 147/62 (90) 99 04/12/19 06:18 133/67 04/12/19 04:00 97.8 74 20 133/67 (89) 98 04/12/19 00:00 98.1 77 19 124/65 (84) 97 04/11/19 22:00 118/60 04/11/19 21:00 Room Air 04/11/19 20:35 72 118/60 04/11/19 20:00 97.6 72 17 118/60 (79) 98 04/11/19 19:28 95 Nasal Cannula 2.0 28 04/11/19 16:00 98.2 70 20 145/52 (83) 97 04/11/19 14:50 118/50 Intake and Output 04/11/19 04/12/19 19:00 07:00 Intake Total 990 ml 1090 ml Output Total 600 ml 350 ml Balance 390 ml 740 ml Intake Oral 240 ml 240 ml IV Total 750 ml 850 ml Output Urine Total 600 ml 350 ml # Voids 1 # Bowel Movements 1 1 Objective HEENT: normocephalic, atraumatic Respiratory/Chest: chest wall non-tender, normal breath sounds Cardiovascular: normal rate, regular rhythm Abdomen: normal bowel sounds, soft, non tender Genitourinary: normal external genitalia Extremities: no cyanosis Skin: no rash, no lesions HEENT: atraumatic Respiratory/Chest: lungs clear, normal breath sounds Cardiovascular: normal peripheral pulses, regular rhythm Abdomen: normal bowel sounds, no organomegaly Genitourinary: normal external genitalia Extremities: no clubbing Neurologic/Psychiatric: abnormal gait Lymphatic: no neck adenopathy, no groin adenopathy Laboratory Tests 04/12/19 05:05: White Blood Count 4.1L, Red Blood Count 2.97L, Hemoglobin 8.4L, Hematocrit 26.5L , Mean Corpuscular Volume 89, Mean Corpuscular Hemoglobin 28.4, Mean Corpuscular Hemoglobin Concent 31.8L, Red Cell Distribution Width 17.6H, Platelet Count 119L, Mean Platelet Volume 7.9, Neutrophils (%) (Auto) 61.0, Lymphocytes (%) (Auto) 19.1L, Monocytes (%) (Auto) 17.3H, Eosinophils (%) (Auto ) 1.5, Basophils (%) (Auto) 1.2, Sodium Level 137, Potassium Level 3.5, Chloride Level 109H, Carbon Dioxide Level 19L, Anion Gap 9, Blood Urea Nitrogen 21H, Creatinine 1.8H, Estimat Glomerular Filtration Rate , Glucose Level 158H, Calcium Level 6.9L, Random Vancomycin Level 14.2 Current Medications Medications (Trade) Dose Ordered Sig/Sallie Route PRN Reason Start Time Stop Time Status Last Admin Dose Admin Acetaminophen (Tylenol) 650 mg Q4H PRN ORAL fever 04/06/19 14:00 05/01/19 13:59 Allopurinol (Allopurinol) 300 mg DAILY ORAL 04/07/19 09:00 05/03/19 09:59 04/12/19 09:37 Bacitracin (Bacitracin) 1 applic BID TOPIC 04/12/19 09:00 05/12/19 08:59 04/12/19 09:37 Carvedilol (Coreg) 12.5 mg EVERY 12 HOURS ORAL 04/06/19 21:00 05/01/19 08:59 04/12/19 09:37 Dextrose (Dextrose 50%) 25 ml Q30M PRN IV Hypoglycemia 04/06/19 14:00 05/01/19 10:29 Dextrose (Dextrose 50%) 50 ml Q30M PRN IV Hypoglycemia 04/06/19 14:00 05/01/19 10:29 Dextrose/ Electrolytes 1,000 ml @ 75 mls/hr [id number] IV 04/06/19 13:30 05/04/19 09:59 04/12/19 08:04 Heparin Sodium (Porcine) (Heparin 5000 units/ml) 5,000 units EVERY 12 HOURS SUBQ 04/06/19 21:00 05/01/19 08:59 04/11/19 11:58 Hydralazine HCl (Apresoline) 50 mg Q8HR ORAL 04/06/19 14:00 05/01/19 13:59 04/12/19 13:08 Insulin Aspart (NovoLOG) BEFORE MEALS AND HS SUBQ 04/06/19 16:30 05/01/19 11:29 04/12/19 06:22 Lorazepam (Ativan) 0.5 mg Q6H PRN ORAL For Anxiety 04/11/19 13:30 04/18/19 13:29 04/12/19 13:08 Memantine (Namenda) 5 mg BID ORAL 04/11/19 18:00 05/11/19 17:59 04/12/19 09:37 Metronidazole 100 ml @ 100 mls/hr Q8HR IVPB 04/10/19 14:00 04/17/19 13:59 04/12/19 13:08 Minoxidil (Loniten) 2.5 mg Q4H PRN ORAL bp over 165 syst 04/06/19 14:00 05/01/19 13:59 Ondansetron HCl (Zofran) 4 mg Q6H PRN IVP Nausea & Vomiting 04/06/19 14:00 05/01/19 07:59 Quetiapine Fumarate (SEROqueL) 50 mg TWICE A DAY ORAL 04/06/19 18:00 05/03/19 17:59 04/12/19 09:37 Tamsulosin HCl (Flomax) 0.4 mg BID ORAL 04/06/19 18:00 05/01/19 12:59 04/12/19 09:37 Temazepam (Restoril) 15 mg HSPRN PRN ORAL Insomnia 04/06/19 14:00 04/13/19 13:59 04/11/19 20:35 Vancomycin HCl (Firvanq) 125 mg FOUR TIMES A DAY ORAL 04/06/19 18:00 04/17/19 23:59 04/12/19 13:08 Vancomycin HCl (Vanco rx to dose) 1 ea DAILY PRN MISC Per rx protocol 04/07/19 09:00 05/01/19 08:14 Adam Moyer MD Apr 12, 2019 13:23
--- NOTE | 2019-04-12 13:37 | Hematology/Onc Progress Note ---
Assessment/Plan Assessment/Plan Assessment and Recs: # ACUTE DEEP VEIN THROMBOSIS BILATERAL, new onset, from 04/02/19 s/p IVC filter on 05/06/[address] Arroyo --> reviewed images with radiology, goes from common to proximal common femoral v ein --> V/Q scan --> shows low prob pe --> given low h/h and low plts, recommend ivc filter placement, consent has been signed --> cleared with other consultants, zen RN --> s/p IVC filter by Dr Arroyo 04/06 --> hold off on anticoagulation until h/h other counts stabilize # Bladder cancer requires resection v chemo/xrt -- presented with multi masses CT shows Scattered eccentric mural thickening/masses in the urinary bladder wall , correlating with findings on recent ultrasound. No significant perivesical stranding. Recommend further evaluation with cystoscopy. --> urology consulted, appreciate input --> Uro note from prior admission: Tolerated bladder tumor resection well. Unfortunately greater part of the bladder is involved and essentially replaced all normal bladder with tumor. I can not resect all the tumors. --> may consider chemo/radiation as outpatient --> path does confirm malignancy --> CBI as needed per uro # Pancytopenia - potential causes multifactorial, evaluate liver and viral etiologies to begin, also could be related to underlying medications patient has received. --> Hep panel and HIV --> NEGATIVE --> US abd showed bladder masses--> ct reviewed as well --> Peripheral smear ordered to evaluate for blasts /schistocytes --> none noted --> abx and other meds have been reviewed --> ok for ppx if plt >50k w/ either heparin or lovenox --> trend plt >92-->104-->86-->73->117k --> wbc trend 3.7-->4.1 # Anemia of iron deficiency likely due to hematuria --> iv iron x 5 days low ferritin, completed from prior admission --> likely due to hematuria --> have started on ivf and consider uro prn cysto --> hgb goal >7 --> cont po folic acid --> hgb trend: 7.4-->8.4 --> as per gi at some point may need egd/colo # Acute renal injury --> cr >1.4-->1.4-->1.7-->1.5-->3.7->1.8 --> per renal recs --> volume expansion # HTN --> cards is following, appreciate recs # C. diff colitis --> on po vanc/flagyl --> per id # Hematuria --> improved # UTI (urinary tract infection) --> per id on abx, cefe/vanc # Scrotal lesions --> per surg eval --> as per wound care # Dehydration # Dvt ppx heparin sq and ivf filter The timing of this note does not necessarily reflect the time of the patient was seen. GREATLY APPRECIATE CONSULTATION. Subjective Constitutional: Denies: no symptoms, chills, fever, malaise, weakness, other HEENT: Denies: no symptoms, eye pain, blurred vision, tearing, double vision, ear pain, ear discharge, nose pain, nose congestion, throat pain, throat swelling, mouth pain, mouth swelling, other Cardiovascular: Denies: no symptoms, chest pain, edema, irregular heart rate, lightheadedness, palpitations, syncope, other Respiratory: Denies: no symptoms, cough, shortness of breath, SOB with excertion, SOB at rest, sputum, wheezing, other Gastrointestinal/Abdominal: Denies: no symptoms, abdomen distended, abdominal pain, black stools, tarry stools, blood in stool, constipated, diarrhea, difficulty swallowing, nausea, poor appetite, poor fluid intake, rectal bleeding , vomiting, other Genitourinary: Denies: no symptoms, burning, discharge, frequency, flank pain, hematuria, incontinence, pain, urgency, other Neurologic/Psychiatric: Denies: no symptoms, anxiety, depressed, emotional problems, headache, numbness, paresthesia, pre-existing deficit, seizure, tingling, tremors, weakness, other Allergies: Coded Allergies: No Known Allergies (Unverified , 12/20/18) Subjective 04/03: s/p 1 bag iv iron, hgb 7.4, repeat cbc tomorrow, consent for ivc filter has been signed 04/04: is pending clearance of blood cultures, have dw id, potentially thurs for ivcf placement 04/05: no events, still pending ivc filter, have dw rn and id 04/06: no events, no bleeding, pending filter, as per id clearance 04/08: tolerated ivc filter well on 04/06, no events, no bleeding reported 04/09: no events, remains confused is on 2l zen briggs rn 04/10: no events, with lesion noted on penile shaft, no bleeding noted 04/11: no events, tolerated only half of vanc, plt 101, ok to give heparin sq 04/12: on ensure, no bleeding, labs noted, wbc lower, no major changes Objective Objective Current Medications Medications (Trade) Dose Ordered Sig/Sallie Route PRN Reason Start Time Stop Time Status Last Admin Dose Admin Acetaminophen (Tylenol) 650 mg Q4H PRN ORAL fever 04/06/19 14:00 05/01/19 13:59 Allopurinol (Allopurinol) 300 mg DAILY ORAL 04/07/19 09:00 05/03/19 09:59 04/12/19 09:37 Bacitracin (Bacitracin) 1 applic BID TOPIC 04/12/19 09:00 05/12/19 08:59 04/12/19 09:37 Carvedilol (Coreg) 12.5 mg EVERY 12 HOURS ORAL 04/06/19 21:00 05/01/19 08:59 04/12/19 09:37 Dextrose (Dextrose 50%) 25 ml Q30M PRN IV Hypoglycemia 04/06/19 14:00 05/01/19 10:29 Dextrose (Dextrose 50%) 50 ml Q30M PRN IV Hypoglycemia 04/06/19 14:00 05/01/19 10:29 Dextrose/ Electrolytes 1,000 ml @ 75 mls/hr [id number] IV 04/06/19 13:30 05/04/19 09:59 04/12/19 08:04 Heparin Sodium (Porcine) (Heparin 5000 units/ml) 5,000 units EVERY 12 HOURS SUBQ 04/06/19 21:00 05/01/19 08:59 04/11/19 11:58 Hydralazine HCl (Apresoline) 50 mg Q8HR ORAL 04/06/19 14:00 05/01/19 13:59 04/12/19 13:08 Insulin Aspart (NovoLOG) BEFORE MEALS AND HS SUBQ 04/06/19 16:30 05/01/19 11:29 04/12/19 06:22 Lorazepam (Ativan) 0.5 mg Q6H PRN ORAL For Anxiety 04/11/19 13:30 04/18/19 13:29 04/12/19 13:08 Memantine (Namenda) 5 mg BID ORAL 04/11/19 18:00 05/11/19 17:59 04/12/19 09:37 Metronidazole 100 ml @ 100 mls/hr Q8HR IVPB 04/10/19 14:00 04/17/19 13:59 04/12/19 13:08 Minoxidil (Loniten) 2.5 mg Q4H PRN ORAL bp over 165 syst 04/06/19 14:00 05/01/19 13:59 Ondansetron HCl (Zofran) 4 mg Q6H PRN IVP Nausea & Vomiting 04/06/19 14:00 05/01/19 07:59 Quetiapine Fumarate (SEROqueL) 50 mg TWICE A DAY ORAL 04/06/19 18:00 05/03/19 17:59 04/12/19 09:37 Tamsulosin HCl (Flomax) 0.4 mg BID ORAL 04/06/19 18:00 05/01/19 12:59 04/12/19 09:37 Temazepam (Restoril) 15 mg HSPRN PRN ORAL Insomnia 04/06/19 14:00 04/13/19 13:59 04/11/19 20:35 Vancomycin HCl (Firvanq) 125 mg FOUR TIMES A DAY ORAL 04/06/19 18:00 04/17/19 23:59 04/12/19 13:08 Vancomycin HCl (Vanco rx to dose) 1 ea DAILY PRN MISC Per rx protocol 04/07/19 09:00 05/01/19 08:14 Last 24 Hour Vital Signs Date Time Temp Pulse Resp B/P (MAP) Pulse Ox O2 Delivery O2 Flow Rate FiO2 04/12/19 13:08 133/63 04/12/19 12:00 97.9 73 18 133/63 (86) 98 04/12/19 09:37 71 147/62 04/12/19 09:00 Room Air 04/12/19 08:00 97.9 71 19 147/62 (90) 99 04/12/19 06:18 133/67 04/12/19 04:00 97.8 74 20 133/67 (89) 98 04/12/19 00:00 98.1 77 19 124/65 (84) 97 04/11/19 22:00 118/60 04/11/19 21:00 Room Air 04/11/19 20:35 72 118/60 04/11/19 20:00 97.6 72 17 118/60 (79) 98 04/11/19 19:28 95 Nasal Cannula 2.0 28 04/11/19 16:00 98.2 70 20 145/52 (83) 97 04/11/19 14:50 118/50 04/11/19 12:00 98.2 77 16 118/50 (72) 99 04/11/19 10:22 72 128/60 04/11/19 10:05 Room Air 04/11/19 08:00 98.2 72 20 128/60 (82) 99 04/11/19 05:45 130/75 04/11/19 04:00 98.4 67 18 130/56 (80) 98 04/11/19 00:16 98.7 74 17 118/58 (78) 97 04/10/19 22:18 137/55 04/10/19 21:27 76 137/76 04/10/19 21:00 Room Air 04/10/19 20:00 97.0 77 18 156/70 (98) 100 04/10/19 16:00 98.7 75 20 145/87 (106) 95 04/10/19 14:00 130/53 Intake and Output 04/11/19 04/12/19 19:00 07:00 Intake Total 990 ml 1090 ml Output Total 600 ml 350 ml Balance 390 ml 740 ml Intake Oral 240 ml 240 ml IV Total 750 ml 850 ml Output Urine Total 600 ml 350 ml # Voids 1 # Bowel Movements 1 1 Labs Test 04/10/19 06:10 04/11/19 05:50 04/12/19 05:05 White Blood Count 5.2 K/UL (4.8-10.8) 5.4 K/UL (4.8-10.8) 4.1 K/UL (4.8-10.8) Red Blood Count 3.32 M/UL (4.70-6.10) 3.06 M/UL (4.70-6.10) 2.97 M/UL (4.70-6.10) Hemoglobin 9.2 G/DL (14.2-18.0) 8.6 G/DL (14.2-18.0) 8.4 G/DL (14.2-18.0) Hematocrit 29.9 % (42.0-52.0) 27.6 % (42.0-52.0) 26.5 % (42.0-52.0) Mean Corpuscular Volume 90 FL (80-99) 90 FL (80-99) 89 FL (80-99) Mean Corpuscular Hemoglobin 27.5 PG (27.0-31.0) 28.3 PG (27.0-31.0) 28.4 PG (27.0-31.0) Mean Corpuscular Hemoglobin Concent 30.6 G/DL (32.0-36.0) 31.3 G/DL (32.0-36.0) 31.8 G/DL (32.0-36.0) Red Cell Distribution Width 18.0 % (11.6-14.8) 17.7 % (11.6-14.8) 17.6 % (11.6-14.8) Platelet Count 110 K/UL (150-450) 101 K/UL (150-450) 119 K/UL (150-450) Mean Platelet Volume 7.7 FL (6.5-10.1) 7.8 FL (6.5-10.1) 7.9 FL (6.5-10.1) Neutrophils (%) (Auto) 70.4 % (45.0-75.0) 67.9 % (45.0-75.0) 61.0 % (45.0-75.0) Lymphocytes (%) (Auto) 14.6 % (20.0-45.0) 14.5 % (20.0-45.0) 19.1 % (20.0-45.0) Monocytes (%) (Auto) 13.7 % (1.0-10.0) 15.6 % (1.0-10.0) 17.3 % (1.0-10.0) Eosinophils (%) (Auto) 0.9 % (0.0-3.0) 1.2 % (0.0-3.0) 1.5 % (0.0-3.0) Basophils (%) (Auto) 0.4 % (0.0-2.0) 0.8 % (0.0-2.0) 1.2 % (0.0-2.0) Sodium Level 139 MMOL/L (136-145) 139 MMOL/L (136-145) 137 MMOL/L (136-145) Potassium Level 4.0 MMOL/L (3.5-5.1) 3.6 MMOL/L (3.5-5.1) 3.5 MMOL/L (3.5-5.1) Chloride Level 110 MMOL/L (98-107) 110 MMOL/L (98-107) 109 MMOL/L (98-107) Carbon Dioxide Level 18 MMOL/L (21-32) 19 MMOL/L (21-32) 19 MMOL/L (21-32) Anion Gap 11 mmol/L (5-15) 10 mmol/L (5-15) 9 mmol/L (5-15) Blood Urea Nitrogen 26 mg/dL (7-18) 23 mg/dL (7-18) 21 mg/dL (7-18) Creatinine 1.8 MG/DL (0.55-1.30) 1.7 MG/DL (0.55-1.30) 1.8 MG/DL (0.55-1.30) Estimat Glomerular Filtration Rate mL/min (>60) mL/min (>60) mL/min (>60) Glucose Level 203 MG/DL (74-106) 186 MG/DL (74-106) 158 MG/DL (74-106) Calcium Level 7.3 MG/DL (8.5-10.1) 6.9 MG/DL (8.5-10.1) 6.9 MG/DL (8.5-10.1) Phosphorus Level 2.3 MG/DL (2.5-4.9) 2.7 MG/DL (2.5-4.9) Magnesium Level 1.9 MG/DL (1.8-2.4) 1.7 MG/DL (1.8-2.4) Total Bilirubin 0.3 MG/DL (0.2-1.0) Aspartate Amino Transf (AST/SGOT) 17 U/L (15-37) Alanine Aminotransferase (ALT/SGPT) 10 U/L (12-78) Alkaline Phosphatase 49 U/L (46-116) Total Protein 5.8 G/DL (6.4-8.2) Albumin 1.5 G/DL (3.4-5.0) Globulin 4.3 g/dL Albumin/Globulin Ratio 0.3 (1.0-2.7) Random Vancomycin Level 15.0 ug/mL 14.2 ug/mL Height (Feet): 5 Height (Inches): 9.00 Weight (Pounds): 174 Objective Physical Exam Vital Signs: have been reviewed General Appearance: non-toxic, obese, Chronically Ill Respiratory: chest non-tender, lungs clear, mirian BSs, no rhonchi Cardiovascular: normal inspection, regular rate, rhythm, GI: normal inspection, soft Genitourinary: MANZANO+ Musculoskeletal: normal inspection Neurologic: normal inspection, alert Psychiatric: normal inspection Skin: other - Marcelo Shen MD Apr 12, 2019 13:37
--- NOTE | 2019-04-12 14:41 | NUR ---
NURSE NOTES: PT YELLING "HELP! HELP" CONTINUOUSLY. WHEN RN OR STAFF ENTER ROOM EACH TIME, PT STATES HE IS THIRSTY AND WANTS WATER BUT REFUSES TO TAKE ORDERED NECTAR THICK LIQUIDS BEFORE TRYING IT. RN SPOKE TO DR SCHREIBER AND MADE AWARE WITH NEW ORDER FOR RISPERDAL 1MG PO BID, START FIRST DOSE NOW. ORDER ENTERED.
--- NOTE | 2019-04-12 15:00 | Progress Note ---
DATE: 04/12/2019 ADDENDUM 20 minutes of cognitive behavioral therapy was provided to help this patient identify his automatic negative thoughts and help him convert those negative thoughts to more positive thoughts to reduce depression, anxiety, and suicidality. Chart reviewed. Discussed with staff. Seen and assessed in his room. Ami Hennessy M.D. DR: CHINTAN JOB#: [id number] CC:
--- NOTE | 2019-04-12 15:00 | Progress Note ---
DATE: 04/12/2019 SUBJECTIVE: This is an 83-year-old male patient with low oxygen saturation. He is still very confused, disorganized, easily agitated, irritable, mood labile. MENTAL STATUS EXAMINATION: This is an 83-year-old male. Appearance is disheveled. Attitude, irritable and agitated. Affect, guarded and restricted. Intellect poor. Mood, depressed and anxious. Motor activity, psychomotor agitation. Insight and judgment is poor. DIAGNOSIS: Paranoid schizophrenia with acute exacerbation. PLAN: Continue titrating up on his meds, stabilize his mood, and help him reduce agitation and prevent any further decline in his cognition. Chart reviewed. Discussed with staff. Ami Hennessy M.D. DR: BRADLEY JOB#: [id number] CC:
[2019-04-12 16:00] VITALS: BP 130/70
--- NOTE | 2019-04-12 19:17 | NUR ---
NURSE NOTES: Patient in bed, awake, alert x 1 to name. Unable to make needs known. Respiration is even and unlabored. Abdomen is soft and non distended. IV site noted, iv fluid is infusing as ordered. Kept clean and comfortable. Bed in low and locked position. Provided safe environment. Skin is warm and dry to touch, noted with dressings on sacral, intact. call light is at bedside. Will continue plan of care.
--- NOTE | 2019-04-12 19:19 | NUR ---
HAND-OFF: Report given to Lashawn DE DIOS RN.
[2019-04-12 20:00] VITALS: BP 120/67
--- NOTE | 2019-04-12 22:18 | General Progress Note ---
Assessment/Plan Problem List: (1) Electrolyte imbalance ICD Codes: E87.8 - Other disorders of electrolyte and fluid balance, not elsewhere classified SNOMED: 541315521 (2) Dehydration ICD Codes: E86.0 - Dehydration SNOMED: 26178009 (3) Anemia ICD Codes: D64.9 - Anemia, unspecified SNOMED: 967694031 (4) CAD (coronary artery disease) ICD Codes: I25.10 - Atherosclerotic heart disease of [place] coronary artery without angina pectoris SNOMED: 48036358 (5) Diabetes ICD Codes: E11.9 - Type 2 diabetes mellitus without complications SNOMED: 84051487 (6) HTN (hypertension) ICD Codes: I10 - Essential (primary) hypertension SNOMED: 27197585 (7) Urinary tract infection ICD Codes: N39.0 - Urinary tract infection, site not specified SNOMED: 03682550 (8) Bladder cancer ICD Codes: C67.9 - Malignant neoplasm of bladder, unspecified SNOMED: 155449409 (9) Acute on chronic renal insufficiency ICD Codes: N28.9 - Disorder of kidney and ureter, unspecified; N18.9 - Chronic kidney disease, unspecified SNOMED: 339297077, 835393830 Status: stable, progressing Assessment/Plan: no wheezing afebrile abx pe id vitals stable resp insuff uti htn Subjective ROS Limited/Unobtainable: Yes Allergies: Coded Allergies: No Known Allergies (Unverified , 12/20/18) Objective Last 24 Hour Vital Signs Date Time Temp Pulse Resp B/P (MAP) Pulse Ox O2 Delivery O2 Flow Rate FiO2 04/12/19 21:48 120/67 04/12/19 21:46 86 120/67 04/12/19 21:00 Room Air 04/12/19 20:38 96 Nasal Cannula 2.0 28 04/12/19 20:00 99.2 86 18 120/67 (84) 96 04/12/19 16:00 98.4 80 19 130/70 (90) 100 04/12/19 13:08 133/63 04/12/19 12:00 97.9 73 18 133/63 (86) 98 04/12/19 09:37 71 147/62 04/12/19 09:00 Room Air 04/12/19 08:00 97.9 71 19 147/62 (90) 99 04/12/19 06:18 133/67 04/12/19 04:00 97.8 74 20 133/67 (89) 98 04/12/19 00:00 98.1 77 19 124/65 (84) 97 Intake and Output 04/11/19 04/12/19 18:59 06:59 Intake Total 990 ml 1090 ml Output Total 600 ml 350 ml Balance 390 ml 740 ml Intake Oral 240 ml 240 ml IV Total 750 ml 850 ml Output Urine Total 600 ml 350 ml # Voids 1 # Bowel Movements 1 1 Laboratory Tests 04/12/19 05:05: White Blood Count 4.1L, Red Blood Count 2.97L, Hemoglobin 8.4L, Hematocrit 26.5L , Mean Corpuscular Volume 89, Mean Corpuscular Hemoglobin 28.4, Mean Corpuscular Hemoglobin Concent 31.8L, Red Cell Distribution Width 17.6H, Platelet Count 119L, Mean Platelet Volume 7.9, Neutrophils (%) (Auto) 61.0, Lymphocytes (%) (Auto) 19.1L, Monocytes (%) (Auto) 17.3H, Eosinophils (%) (Auto ) 1.5, Basophils (%) (Auto) 1.2, Sodium Level 137, Potassium Level 3.5, Chloride Level 109H, Carbon Dioxide Level 19L, Anion Gap 9, Blood Urea Nitrogen 21H, Creatinine 1.8H, Estimat Glomerular Filtration Rate , Glucose Level 158H, Calcium Level 6.9L, Random Vancomycin Level 14.2 Height (Feet): 5 Height (Inches): 9.00 Weight (Pounds): 174 Cardiovascular: normal rate Respiratory/Chest: lungs clear Subhash Corona MD Apr 12, 2019 22:18
[2019-04-13] VITALS: BP 126/62
[2019-04-13] MEDS: D5W w/KCl 20mEq 1,000 ML IV SCH ×2 (02:00→14:28)
[2019-04-13 03:51] VITALS: BP 150/73
[2019-04-13] MEDS: HydrALAZINE 50mg tab ORAL SCH ×3 (05:27→21:27)
[2019-04-13] MEDS: NovoLOG Insulin Flexpen SUBQ SCH ×4 (05:38→20:23)
--- NOTE | 2019-04-13 06:45 | General Progress Note ---
Assessment/Plan Status: stable, progressing Assessment/Plan: Assessment/Plan Problems: (1) C. difficile colitis ICD Codes: A04.72 - Enterocolitis due to Clostridium difficile, not specified as recurrent SNOMED: 674433779 (2) Dehydration ICD Codes: E86.0 - Dehydration SNOMED: 98666112 (3) Anemia ICD Codes: D64.9 - Anemia, unspecified SNOMED: 921439996 Status: stable Assessment/Plan fecal occult blood stool positive x2 C. difficile positive diarrhea Recommend EGD and colonoscopy at some point to evaluate possible GI bleed, will consider after holiday weekend if still inpatient. Antibiotics per infectious diseases off PPI IV and p.o. hydration plus electrolyte correction advance diet as tolerated Monitor H&H, PRN transfusions off all laxatives We will follow with additional recommendations on a daily basis Ensure s/p IVC filter placement add marinol calore count may need peg Subjective Allergies: Coded Allergies: No Known Allergies (Unverified , 12/20/18) Objective Last 24 Hour Vital Signs Date Time Temp Pulse Resp B/P (MAP) Pulse Ox O2 Delivery O2 Flow Rate FiO2 04/13/19 05:27 118/91 04/13/19 03:51 98.0 75 20 150/73 (98) 96 04/13/19 00:00 99.2 79 17 126/62 (83) 96 04/12/19 21:48 120/67 04/12/19 21:46 86 120/67 04/12/19 21:00 Room Air 04/12/19 20:38 96 Nasal Cannula 2.0 28 04/12/19 20:00 99.2 86 18 120/67 (84) 96 04/12/19 16:00 98.4 80 19 130/70 (90) 100 04/12/19 13:08 133/63 04/12/19 12:00 97.9 73 18 133/63 (86) 98 04/12/19 09:37 71 147/62 04/12/19 09:00 Room Air 04/12/19 08:00 97.9 71 19 147/62 (90) 99 Intake and Output 04/12/19 04/13/19 19:00 07:00 Intake Total 875 ml 770 ml Output Total 100 ml 600 ml Balance 775 ml 170 ml Intake Oral 120 ml IV Total 875 ml 650 ml Output Urine Total 600 ml Stool Total 100 ml # Voids 1 Height (Feet): 5 Height (Inches): 9.00 Weight (Pounds): 174 General Appearance: no apparent distress EENT: normal ENT inspection Neck: supple Cardiovascular: normal rate Respiratory/Chest: decreased breath sounds Abdomen: normal bowel sounds, non tender, soft Extremities: non-tender Terell Valiente MD Apr 13, 2019 06:44
--- NOTE | 2019-04-13 07:01 | Hematology/Onc Progress Note ---
Assessment/Plan Assessment/Plan Assessment and Recs: # ACUTE DEEP VEIN THROMBOSIS BILATERAL, new onset, from 04/02/19 s/p IVC filter on 05/06/[address] Arroyo --> reviewed images with radiology, goes from common to proximal common femoral v ein --> V/Q scan --> shows low prob pe --> given low h/h and low plts, recommend ivc filter placement, consent has been signed --> cleared with other consultants, zen RN --> s/p IVC filter by Dr Arroyo 04/06 --> hold off on anticoagulation until h/h other counts stabilize # Bladder cancer requires resection v chemo/xrt -- presented with multi masses CT shows Scattered eccentric mural thickening/masses in the urinary bladder wall , correlating with findings on recent ultrasound. No significant perivesical stranding. Recommend further evaluation with cystoscopy. --> urology consulted, appreciate input --> Uro note from prior admission: Tolerated bladder tumor resection well. Unfortunately greater part of the bladder is involved and essentially replaced all normal bladder with tumor. I can not resect all the tumors. --> may consider chemo/radiation as outpatient --> path does confirm malignancy --> CBI as needed per uro # Pancytopenia - potential causes multifactorial, evaluate liver and viral etiologies to begin, also could be related to underlying medications patient has received. --> Hep panel and HIV --> NEGATIVE --> US abd showed bladder masses--> ct reviewed as well --> Peripheral smear ordered to evaluate for blasts /schistocytes --> none noted --> abx and other meds have been reviewed --> ok for ppx if plt >50k w/ either heparin or lovenox --> trend plt >92-->104-->86-->73->117k --> wbc trend 3.7-->4.1 # Anemia of iron deficiency likely due to hematuria --> iv iron x 5 days low ferritin, completed from prior admission --> likely due to hematuria --> have started on ivf and consider uro prn cysto --> hgb goal >7 --> cont po folic acid --> hgb trend: 7.4-->8.4 --> as per gi at some point may need egd/colo # Acute renal injury --> cr >1.4-->1.4-->1.7-->1.5-->3.7->1.8 --> per renal recs --> volume expansion # HTN --> cards is following, appreciate recs # C. diff colitis --> on po vanc/flagyl --> per id # Hematuria --> improved # UTI (urinary tract infection) --> per id on abx, cefe/vanc # Scrotal lesions --> per surg eval --> as per wound care # Dehydration # Dvt ppx heparin sq and ivf filter The timing of this note does not necessarily reflect the time of the patient was seen. GREATLY APPRECIATE CONSULTATION. Subjective HEENT: Denies: no symptoms, eye pain, blurred vision, tearing, double vision, ear pain, ear discharge, nose pain, nose congestion, throat pain, throat swelling, mouth pain, mouth swelling, other Cardiovascular: Denies: no symptoms, chest pain, edema, irregular heart rate, lightheadedness, palpitations, syncope, other Respiratory: Denies: no symptoms, cough, shortness of breath, SOB with excertion, SOB at rest, sputum, wheezing, other Gastrointestinal/Abdominal: Denies: no symptoms, abdomen distended, abdominal pain, black stools, tarry stools, blood in stool, constipated, diarrhea, difficulty swallowing, nausea, poor appetite, poor fluid intake, rectal bleeding , vomiting, other Genitourinary: Denies: no symptoms, burning, discharge, frequency, flank pain, hematuria, incontinence, pain, urgency, other Neurologic/Psychiatric: Denies: no symptoms, anxiety, depressed, emotional problems, headache, numbness, paresthesia, pre-existing deficit, seizure, tingling, tremors, weakness, other Endocrine: Denies: no symptoms, excessive sweating, flushing, intolerance to cold, intolerance to heat, increased hunger, increased thirst, increased urine, unexplained weight gain, unexplained weight loss, other Allergies: Coded Allergies: No Known Allergies (Unverified , 12/20/18) Subjective 04/03: s/p 1 bag iv iron, hgb 7.4, repeat cbc tomorrow, consent for ivc filter has been signed 04/04: is pending clearance of blood cultures, have dw id, potentially thurs for ivcf placement 04/05: no events, still pending ivc filter, have dw rn and id 04/06: no events, no bleeding, pending filter, as per id clearance 04/08: tolerated ivc filter well on 04/06, no events, no bleeding reported 04/09: no events, remains confused is on 2l nc, zen rn 04/10: no events, with lesion noted on penile shaft, no bleeding noted 04/11: no events, tolerated only half of vanc, plt 101, ok to give heparin sq 04/12: on ensure, no bleeding, labs noted, wbc lower, no major changes 04/13: remains confused, labs noted from yesterday, on abx Objective Objective Current Medications Medications (Trade) Dose Ordered Sig/Sallie Route PRN Reason Start Time Stop Time Status Last Admin Dose Admin Acetaminophen (Tylenol) 650 mg Q4H PRN ORAL fever 04/06/19 14:00 05/01/19 13:59 Allopurinol (Allopurinol) 300 mg DAILY ORAL 04/07/19 09:00 05/03/19 09:59 04/12/19 09:37 Bacitracin (Bacitracin) 1 applic BID TOPIC 04/12/19 09:00 05/12/19 08:59 04/12/19 17:21 Carvedilol (Coreg) 12.5 mg EVERY 12 HOURS ORAL 04/06/19 21:00 05/01/19 08:59 04/12/19 21:46 Dextrose (Dextrose 50%) 25 ml Q30M PRN IV Hypoglycemia 04/06/19 14:00 05/01/19 10:29 Dextrose (Dextrose 50%) 50 ml Q30M PRN IV Hypoglycemia 04/06/19 14:00 05/01/19 10:29 Dextrose/ Electrolytes 1,000 ml @ 75 mls/hr [id number] IV 04/06/19 13:30 05/04/19 09:59 04/13/19 02:00 Dronabinol (Marinol) 2.5 mg BID ORAL 04/13/19 09:00 05/13/19 08:59 Heparin Sodium (Porcine) (Heparin 5000 units/ml) 5,000 units EVERY 12 HOURS SUBQ 04/06/19 21:00 05/01/19 08:59 04/11/19 11:58 Hydralazine HCl (Apresoline) 50 mg Q8HR ORAL 04/06/19 14:00 05/01/19 13:59 04/12/19 13:08 Insulin Aspart (NovoLOG) BEFORE MEALS AND HS SUBQ 04/06/19 16:30 05/01/19 11:29 04/13/19 05:38 Lorazepam (Ativan) 0.5 mg Q6H PRN ORAL For Anxiety 04/11/19 13:30 04/18/19 13:29 04/12/19 13:08 Memantine (Namenda) 5 mg BID ORAL 04/11/19 18:00 05/11/19 17:59 04/12/19 17:21 Metronidazole 100 ml @ 100 mls/hr Q8HR IVPB 04/10/19 14:00 04/17/19 13:59 04/13/19 05:33 Minoxidil (Loniten) 2.5 mg Q4H PRN ORAL bp over 165 syst 04/06/19 14:00 05/01/19 13:59 Ondansetron HCl (Zofran) 4 mg Q6H PRN IVP Nausea & Vomiting 04/06/19 14:00 05/01/19 07:59 Quetiapine Fumarate (SEROqueL) 50 mg TWICE A DAY ORAL 04/06/19 18:00 05/03/19 17:59 04/12/19 17:21 Risperidone (RisperDAL) 1 mg Q12HR ORAL 04/12/19 15:00 05/12/19 14:59 04/12/19 21:46 Tamsulosin HCl (Flomax) 0.4 mg BID ORAL 04/06/19 18:00 05/01/19 12:59 04/12/19 17:20 Temazepam (Restoril) 15 mg HSPRN PRN ORAL Insomnia 04/06/19 14:00 04/13/19 13:59 04/11/19 20:35 Vancomycin HCl (Firvanq) 125 mg FOUR TIMES A DAY ORAL 04/06/19 18:00 04/17/19 23:59 04/12/19 21:46 Vancomycin HCl (Vanco rx to dose) 1 ea DAILY PRN MISC Per rx protocol 04/07/19 09:00 05/01/19 08:14 Last 24 Hour Vital Signs Date Time Temp Pulse Resp B/P (MAP) Pulse Ox O2 Delivery O2 Flow Rate FiO2 04/13/19 05:27 118/91 04/13/19 03:51 98.0 75 20 150/73 (98) 96 04/13/19 00:00 99.2 79 17 126/62 (83) 96 04/12/19 21:48 120/67 04/12/19 21:46 86 120/67 04/12/19 21:00 Room Air 04/12/19 20:38 96 Nasal Cannula 2.0 28 04/12/19 20:00 99.2 86 18 120/67 (84) 96 04/12/19 16:00 98.4 80 19 130/70 (90) 100 04/12/19 13:08 133/63 04/12/19 12:00 97.9 73 18 133/63 (86) 98 04/12/19 09:37 71 147/62 04/12/19 09:00 Room Air 04/12/19 08:00 97.9 71 19 147/62 (90) 99 04/12/19 06:18 133/67 04/12/19 04:00 97.8 74 20 133/67 (89) 98 04/12/19 00:00 98.1 77 19 124/65 (84) 97 04/11/19 22:00 118/60 04/11/19 21:00 Room Air 04/11/19 20:35 72 118/60 04/11/19 20:00 97.6 72 17 118/60 (79) 98 04/11/19 19:28 95 Nasal Cannula 2.0 28 04/11/19 16:00 98.2 70 20 145/52 (83) 97 04/11/19 14:50 118/50 04/11/19 12:00 98.2 77 16 118/50 (72) 99 04/11/19 10:22 72 128/60 04/11/19 10:05 Room Air 04/11/19 08:00 98.2 72 20 128/60 (82) 99 Intake and Output 04/12/19 04/13/19 19:00 07:00 Intake Total 875 ml 770 ml Output Total 100 ml 600 ml Balance 775 ml 170 ml Intake Oral 120 ml IV Total 875 ml 650 ml Output Urine Total 600 ml Stool Total 100 ml # Voids 1 Labs Test 04/11/19 05:50 04/12/19 05:05 White Blood Count 5.4 K/UL (4.8-10.8) 4.1 K/UL (4.8-10.8) Red Blood Count 3.06 M/UL (4.70-6.10) 2.97 M/UL (4.70-6.10) Hemoglobin 8.6 G/DL (14.2-18.0) 8.4 G/DL (14.2-18.0) Hematocrit 27.6 % (42.0-52.0) 26.5 % (42.0-52.0) Mean Corpuscular Volume 90 FL (80-99) 89 FL (80-99) Mean Corpuscular Hemoglobin 28.3 PG (27.0-31.0) 28.4 PG (27.0-31.0) Mean Corpuscular Hemoglobin Concent 31.3 G/DL (32.0-36.0) 31.8 G/DL (32.0-36.0) Red Cell Distribution Width 17.7 % (11.6-14.8) 17.6 % (11.6-14.8) Platelet Count 101 K/UL (150-450) 119 K/UL (150-450) Mean Platelet Volume 7.8 FL (6.5-10.1) 7.9 FL (6.5-10.1) Neutrophils (%) (Auto) 67.9 % (45.0-75.0) 61.0 % (45.0-75.0) Lymphocytes (%) (Auto) 14.5 % (20.0-45.0) 19.1 % (20.0-45.0) Monocytes (%) (Auto) 15.6 % (1.0-10.0) 17.3 % (1.0-10.0) Eosinophils (%) (Auto) 1.2 % (0.0-3.0) 1.5 % (0.0-3.0) Basophils (%) (Auto) 0.8 % (0.0-2.0) 1.2 % (0.0-2.0) Sodium Level 139 MMOL/L (136-145) 137 MMOL/L (136-145) Potassium Level 3.6 MMOL/L (3.5-5.1) 3.5 MMOL/L (3.5-5.1) Chloride Level 110 MMOL/L (98-107) 109 MMOL/L (98-107) Carbon Dioxide Level 19 MMOL/L (21-32) 19 MMOL/L (21-32) Anion Gap 10 mmol/L (5-15) 9 mmol/L (5-15) Blood Urea Nitrogen 23 mg/dL (7-18) 21 mg/dL (7-18) Creatinine 1.7 MG/DL (0.55-1.30) 1.8 MG/DL (0.55-1.30) Estimat Glomerular Filtration Rate mL/min (>60) mL/min (>60) Glucose Level 186 MG/DL (74-106) 158 MG/DL (74-106) Calcium Level 6.9 MG/DL (8.5-10.1) 6.9 MG/DL (8.5-10.1) Phosphorus Level 2.7 MG/DL (2.5-4.9) Magnesium Level 1.7 MG/DL (1.8-2.4) Random Vancomycin Level 14.2 ug/mL Height (Feet): 5 Height (Inches): 9.00 Weight (Pounds): 174 Objective Physical Exam Vital Signs: have been reviewed General Appearance: non-toxic, obese, Chronically Ill Respiratory: chest non-tender, lungs clear, mirian BSs, no rhonchi Cardiovascular: normal inspection, regular rate, rhythm, GI: normal inspection, soft Genitourinary: MANZANO+ Musculoskeletal: normal inspection Neurologic: normal inspection, alert Psychiatric: normal inspection Skin: other - Marcelo Shen MD Apr 13, 2019 07:01
--- NOTE | 2019-04-13 07:08 | NUR ---
HAND-OFF: Report given to MATT Clements.
--- NOTE | 2019-04-13 07:15 | NUR ---
NURSE NOTES: DR HAYWARD MADE AWARE PT IS REFUSING TO EAT. PT MAY EAT A FEW SPOONFULS OF APPLE SAUCE TO TAKE WITH MEDICATIONS BUT WILL REFUSE MEALS. MADE AWARE PT HAS NOT EATEN ANY MEALS TODAY OR YESTERDAY. DR HAYWARD TO PUT IN NEW ORDERS.
[2019-04-13 07:50] VITALS: BP 138/50
[2019-04-13] MEDS: Dronabinol 2.5mg Cap ORAL SCH ×2 (08:40→17:09)
[2019-04-13] MEDS: Vancomycin oral 125mg/2.5ml ORAL SCH ×4 (08:40→20:18)
[2019-04-13] MEDS: Tamsulosin 0.4mg cap ORAL SCH ×2 (08:40→17:09)
[2019-04-13] MEDS: Carvedilol 12.5mg tab ORAL SCH ×2 (08:40→20:19)
[2019-04-13] MEDS: Memantine 5 MG TAB ORAL SCH ×2 (08:40→17:09)
[2019-04-13] MEDS: LORazepam 0.5mg tab ORAL PRN ×2 (08:40→17:09)
[2019-04-13] MEDS: Bacitracin Oint UD TOPIC SCH ×2 (08:40→17:09)
[2019-04-13] MEDS: Heparin 5000 units/ml inj SUBQ SCH ×2 (08:51→20:20)
--- NOTE | 2019-04-13 11:46 | NUR ---
RD ASSESSMENT & RECOMMENDATIONS SEE CARE ACTIVITY FOR COMPLETE ASSESSMENT DAILY ESTIMATED NEEDS: Needs based on wounds, cancer, obese; 84kg adj 20-25 kcals/kg 1680- 2100 total kcals 1.25-1.5 g protein/kg 84- 126 g total protein 25-30 mL/kg 2100- 2520 total fluid mLs NUTRITION DIAGNOSIS: 1) Increased protein needs r/t wounds AEb multiple full thickness wounds, refer to eval. 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 3) Altered nutrition related lab values r/t clinical status as evidenced by elev BG (203 216), Na 150- wnl, K 3.1- wnl, elev BUN/ creat now trending down. CURRENT DIET:Renal diet, nectar thick, liq. pureed like soup PO DIET RECOMMENDATIONS: WITH CONTINUED POOR PO INTAKE, REC LIBERALIZED LOW NA DIET ENTERAL NUTRITION RECOMMENDATIONS: Glucerna 1.5 @55mL/hr x 24 hrs to provide 1320mL, 1980kcal, 109g pro, 1001mL free H2O - With continued poor po intake, consider non oral feeds if c/w POC -> obtain GI access. - Initiate Glucerna 1.5 @15mL/hr, advancing 10mL/hr q4-6 hrs until @ goal. - HOB > 30 degrees. - Flush per MD. ADDITIONAL RECOMMENDATIONS: 1) Re-calibrate bed scale w/ added P200 mattress for accurate CBW 2) Monitor lytes, need for dietary restriction (ARF per MD) 3) Wound care: Ananda BID, MVI x1 daily (nephrovite per MD?) + Vit C/ dosing per Renal MD 4) Continue Glucerna TID/ monitor lytes, need for Nepro 5) W/ continued poor po intake, TF recs as above. 6) snacks in b/w all meals
--- NOTE | 2019-04-13 11:49 | Nephrology Progress Note ---
Assessment/Plan Problem List: (1) ARF (acute renal failure) (2) Acute on chronic renal insufficiency (3) Diabetes (4) HTN (hypertension) (5) Bladder cancer (6) Invasive carcinoma of urinary bladder (7) Anemia Assessment Acute renal failure ? Superimposed CKD Bladder Mass / h/o Hematuria HTN DM Anemia, previous transfusions s/p Cystoscopy 12/28 Plan no labs today hardly takes PO meds med-surg favor transfusion Hydrate richardson IV Iron K Supplement BP management, BP med adjustment Monitor lytes and renal parameters Kidney ESDRAS , no hydro per orders Previous Uro note: Tolerated bladder tumor resection well. Unfortunately greater part of the bladder is involved and essentially replaced all normal bladder with tumor. I can not resect all the tumors. Patient needs a radical cystectomy (removal of bladder) or radiation/chemotherapy at higher level of care. 1. recommend transfer to higher level of care for cystectomy 2. continue richardson, keep irrigation to maintain light pink urine. Multiple mass like lesions within the bladder. Further evaluation with cystoscopy is recommended to evaluate for possible neoplasm. Multiple parapelvic renal cysts Subjective ROS Limited/Unobtainable: No Constitutional: Reports: malaise Objective Objective Last 24 Hour Vital Signs Date Time Temp Pulse Resp B/P (MAP) Pulse Ox O2 Delivery O2 Flow Rate FiO2 04/13/19 09:00 Room Air 04/13/19 08:40 69 138/50 04/13/19 07:50 98.2 69 17 138/50 (79) 100 04/13/19 05:27 118/91 04/13/19 03:51 98.0 75 20 150/73 (98) 96 04/13/19 00:00 99.2 79 17 126/62 (83) 96 04/12/19 21:48 120/67 04/12/19 21:46 86 120/67 04/12/19 21:00 Room Air 04/12/19 20:38 96 Nasal Cannula 2.0 28 04/12/19 20:00 99.2 86 18 120/67 (84) 96 04/12/19 16:00 98.4 80 19 130/70 (90) 100 04/12/19 13:08 133/63 04/12/19 12:00 97.9 73 18 133/63 (86) 98 Intake and Output 04/12/19 04/13/19 19:00 07:00 Intake Total 875 ml 845 ml Output Total 100 ml 600 ml Balance 775 ml 245 ml Intake Oral 120 ml IV Total 875 ml 725 ml Output Urine Total 600 ml Stool Total 100 ml # Voids 1 Height (Feet): 5 Height (Inches): 9.00 Weight (Pounds): 174 General Appearance: no apparent distress Objective no change Russell Sofia MD Apr 13, 2019 11:49
--- NOTE | 2019-04-13 11:54 | NUR ---
NURSE NOTES: PT CONTINUES TO REFUSE TO EAT. PT WILL YELL "HELP! HELP! HELP!" AND WHEN STAFF COMES INTO ROOM, PT WILL REQUEST FOR WATER OR FOOD. STAFF WILL BRING FOOD TO PT AND PT WILL YELL "NO! SET THAT DOWN". THIS INTERACTION WILL CONTINUE REPETITIVELY. PT REFUSES TO EAT. PT WILL TAKE A FEW BITES OF APPLE SAUCE WHEN EDUCATED HIS MEDICATION IS IN THE APPLE SAUCE. DR MAINOR JAMES.
--- NOTE | 2019-04-13 11:56 | Infectious Diseases Prog Note ---
Assessment/Plan Assessment/Plan 83yo gentleman with PMH below presents from custodial with confusion, wheezing and desaturation between 83-90%. Pt is oriented to self. Does not know where he is or why he is in the hospital. He initially says yes to abdominal pain, suprapubic pain, leg pain, arm pain but then denied it on second question. Denies fever, chills, cough, sob, diarrhea, dysuria. Unclear baseline. Pt recently had blood transfusion at [facility] 03/06. Pt was recently diagnosed with bladder cancer 12/2018 Afebrile On RA No leukocytosis No lactic acidosis Hypoxia at custodial, SP Possible PNA? flu swab negative CXR: Mild diffuse airspace opacities in both lungs. Lungs are underinflated.Lung findings are likely due to underinflation rather than pulmonary edema or atelectasis. Possible UTI? UA WBC TNTC, also moderate epithelial cells UCx: 50-60K amp sensitive E faecalis E faecalis bacteremia likely 2/ UTI 04/01 BCx: E faecalis 04/02 BCx: neg TTE without vegetation C diff + 04/04 Acute DVT pending IVC filter RIGHT LEG: Venous imaging reveals acute thrombus in the common to superficial femoral veins. LEFT LEG: Venous imaging reveals acute thrombus in the common to superficial femoral veins. SP IVC filter 04/06 Hypokalemia MRSA screen negative ANGELA on CKD CAD Bladder cancer HTN DM CVA Dyslipidemia CKD Anemia BPH Plan: continue vancomycin IV #12/(tentative end date 04/15) and Vancomycin PO #/ will dc IV Flagyl #4 as patient now taking oral vancomycin -04/09 SP Cefepime #8 aspiration precaution, elevate HOB monitor temp and CBC needs 48hrs diarrhea free to discontinue isolation Thank you for this consult. [facility] will continue to follow the patient with you. Subjective Allergies: Coded Allergies: No Known Allergies (Unverified , 12/20/18) Subjective afebrile no leukocytosis Objective Vital Signs Last 24 Hour Vital Signs Date Time Temp Pulse Resp B/P (MAP) Pulse Ox O2 Delivery O2 Flow Rate FiO2 04/13/19 09:00 Room Air 04/13/19 08:40 69 138/50 04/13/19 07:50 98.2 69 17 138/50 (79) 100 04/13/19 05:27 118/91 04/13/19 03:51 98.0 75 20 150/73 (98) 96 04/13/19 00:00 99.2 79 17 126/62 (83) 96 04/12/19 21:48 120/67 04/12/19 21:46 86 120/67 04/12/19 21:00 Room Air 04/12/19 20:38 96 Nasal Cannula 2.0 28 04/12/19 20:00 99.2 86 18 120/67 (84) 96 04/12/19 16:00 98.4 80 19 130/70 (90) 100 04/12/19 13:08 133/63 04/12/19 12:00 97.9 73 18 133/63 (86) 98 Height (Feet): 5 Height (Inches): 9.00 Weight (Pounds): 174 Objective Constitutional: Denies: no symptoms, chills, fever, malaise, weakness, other HEENT: Denies: no symptoms, eye pain, blurred vision, tearing, double vision, ear pain, ear discharge, nose pain, nose congestion, throat pain, throat swelling, mouth pain, mouth swelling, other Cardiovascular: Denies: no symptoms, chest pain, edema, irregular heart rate, lightheadedness, palpitations, syncope, other Respiratory: Denies: no symptoms, cough, shortness of breath, SOB with excertion, SOB at rest, sputum, wheezing, other Neurologic/Psychiatric: Denies: no symptoms, anxiety, depressed, emotional problems, headache, numbness, paresthesia, pre-existing deficit, seizure, tingling, tremors, weakness, other Endocrine: Denies: no symptoms, excessive sweating, flushing, intolerance to cold, intolerance to heat, increased hunger, increased thirst, increased urine, unexplained weight gain, unexplained weight loss, other Current Medications Medications (Trade) Dose Ordered Sig/Sallie Route PRN Reason Start Time Stop Time Status Last Admin Dose Admin Acetaminophen (Tylenol) 650 mg Q4H PRN ORAL fever 04/06/19 14:00 05/01/19 13:59 Allopurinol (Allopurinol) 300 mg DAILY ORAL 04/07/19 09:00 05/03/19 09:59 04/13/19 08:40 Bacitracin (Bacitracin) 1 applic BID TOPIC 04/12/19 09:00 05/12/19 08:59 04/13/19 08:40 Carvedilol (Coreg) 12.5 mg EVERY 12 HOURS ORAL 04/06/19 21:00 05/01/19 08:59 04/13/19 08:40 Dextrose (Dextrose 50%) 25 ml Q30M PRN IV Hypoglycemia 04/06/19 14:00 05/01/19 10:29 Dextrose (Dextrose 50%) 50 ml Q30M PRN IV Hypoglycemia 04/06/19 14:00 05/01/19 10:29 Dextrose/ Electrolytes 1,000 ml @ 75 mls/hr [id number] IV 04/06/19 13:30 05/04/19 09:59 04/13/19 02:00 Dronabinol (Marinol) 2.5 mg BID ORAL 04/13/19 09:00 05/13/19 08:59 04/13/19 08:40 Heparin Sodium (Porcine) (Heparin 5000 units/ml) 5,000 units EVERY 12 HOURS SUBQ 04/06/19 21:00 05/01/19 08:59 04/13/19 08:51 Hydralazine HCl (Apresoline) 50 mg Q8HR ORAL 04/06/19 14:00 05/01/19 13:59 04/12/19 13:08 Insulin Aspart (NovoLOG) BEFORE MEALS AND HS SUBQ 04/06/19 16:30 05/01/19 11:29 04/13/19 05:38 Lorazepam (Ativan) 0.5 mg Q6H PRN ORAL For Anxiety 04/11/19 13:30 04/18/19 13:29 04/13/19 08:40 Memantine (Namenda) 5 mg BID ORAL 04/11/19 18:00 05/11/19 17:59 04/13/19 08:40 Metronidazole 100 ml @ 100 mls/hr Q8HR IVPB 04/10/19 14:00 04/17/19 13:59 04/13/19 05:33 Minoxidil (Loniten) 2.5 mg Q4H PRN ORAL bp over 165 syst 04/06/19 14:00 05/01/19 13:59 Ondansetron HCl (Zofran) 4 mg Q6H PRN IVP Nausea & Vomiting 04/06/19 14:00 05/01/19 07:59 Quetiapine Fumarate (SEROqueL) 50 mg TWICE A DAY ORAL 04/06/19 18:00 05/03/19 17:59 04/13/19 08:40 Risperidone (RisperDAL) 1 mg Q12HR ORAL 04/12/19 15:00 05/12/19 14:59 04/13/19 08:40 Tamsulosin HCl (Flomax) 0.4 mg BID ORAL 04/06/19 18:00 05/01/19 12:59 04/13/19 08:40 Temazepam (Restoril) 15 mg HSPRN PRN ORAL Insomnia 04/06/19 14:00 04/13/19 13:59 04/11/19 20:35 Vancomycin HCl (Firvanq) 125 mg FOUR TIMES A DAY ORAL 04/06/19 18:00 04/17/19 23:59 04/13/19 08:40 Vancomycin HCl (Vanco rx to dose) 1 ea DAILY PRN MISC Per rx protocol 04/07/19 09:00 05/01/19 08:14 Jyoti Piedra M.D. Apr 13, 2019 11:56
[2019-04-13 12:00] VITALS: BP 152/77
--- NOTE | 2019-04-13 12:34 | Pulmonology Progress Note ---
Assessment/Plan Problems: (1) C. difficile colitis (2) Acute respiratory failure with hypoxemia (3) Acute deep vein thrombosis (DVT) of both femoral veins (4) Thrombocytopenia (5) Invasive carcinoma of urinary bladder (6) CAD (coronary artery disease) (7) Anemia (8) Diabetes (9) HTN (hypertension) (10) Bladder cancer Assessment/Plan refused V/q scan renal function improving V/q scan showed low probability PE venous studies of legs showed acute DVT bilaterally IVC filter done respiratory treatment check electrolytes titrate fiio2 to sat of 92% dvt prophylaxis. renal function improving Subjective ROS Limited/Unobtainable: No Constitutional: Reports: no symptoms HEENT: Repors: no symptoms Respiratory: Reports: no symptoms Allergies: Coded Allergies: No Known Allergies (Unverified , 12/20/18) Objective Last 24 Hour Vital Signs Date Time Temp Pulse Resp B/P (MAP) Pulse Ox O2 Delivery O2 Flow Rate FiO2 04/13/19 09:00 Room Air 04/13/19 08:40 69 138/50 04/13/19 07:50 98.2 69 17 138/50 (79) 100 04/13/19 05:27 118/91 04/13/19 03:51 98.0 75 20 150/73 (98) 96 04/13/19 00:00 99.2 79 17 126/62 (83) 96 04/12/19 21:48 120/67 04/12/19 21:46 86 120/67 04/12/19 21:00 Room Air 04/12/19 20:38 96 Nasal Cannula 2.0 28 04/12/19 20:00 99.2 86 18 120/67 (84) 96 04/12/19 16:00 98.4 80 19 130/70 (90) 100 04/12/19 13:08 133/63 Intake and Output 04/12/19 04/13/19 19:00 07:00 Intake Total 875 ml 845 ml Output Total 100 ml 600 ml Balance 775 ml 245 ml Intake Oral 120 ml IV Total 875 ml 725 ml Output Urine Total 600 ml Stool Total 100 ml # Voids 1 Objective HEENT: normocephalic, atraumatic Respiratory/Chest: chest wall non-tender, normal breath sounds Cardiovascular: normal rate, regular rhythm Abdomen: normal bowel sounds, soft, non tender Genitourinary: normal external genitalia Extremities: no cyanosis Skin: no rash, no lesions Current Medications Medications (Trade) Dose Ordered Sig/Sallie Route PRN Reason Start Time Stop Time Status Last Admin Dose Admin Acetaminophen (Tylenol) 650 mg Q4H PRN ORAL fever 04/06/19 14:00 05/01/19 13:59 Allopurinol (Allopurinol) 300 mg DAILY ORAL 04/07/19 09:00 05/03/19 09:59 04/13/19 08:40 Bacitracin (Bacitracin) 1 applic BID TOPIC 04/12/19 09:00 05/12/19 08:59 04/13/19 08:40 Carvedilol (Coreg) 12.5 mg EVERY 12 HOURS ORAL 04/06/19 21:00 05/01/19 08:59 04/13/19 08:40 Dextrose (Dextrose 50%) 25 ml Q30M PRN IV Hypoglycemia 04/06/19 14:00 05/01/19 10:29 Dextrose (Dextrose 50%) 50 ml Q30M PRN IV Hypoglycemia 04/06/19 14:00 05/01/19 10:29 Dextrose/ Electrolytes 1,000 ml @ 75 mls/hr [id number] IV 04/06/19 13:30 05/04/19 09:59 04/13/19 02:00 Dronabinol (Marinol) 2.5 mg BID ORAL 04/13/19 09:00 05/13/19 08:59 04/13/19 08:40 Heparin Sodium (Porcine) (Heparin 5000 units/ml) 5,000 units EVERY 12 HOURS SUBQ 04/06/19 21:00 05/01/19 08:59 04/13/19 08:51 Hydralazine HCl (Apresoline) 50 mg Q8HR ORAL 04/06/19 14:00 05/01/19 13:59 04/12/19 13:08 Insulin Aspart (NovoLOG) BEFORE MEALS AND HS SUBQ 04/06/19 16:30 05/01/19 11:29 04/13/19 05:38 Lorazepam (Ativan) 0.5 mg Q6H PRN ORAL For Anxiety 04/11/19 13:30 04/18/19 13:29 04/13/19 08:40 Memantine (Namenda) 5 mg BID ORAL 04/11/19 18:00 05/11/19 17:59 04/13/19 08:40 Minoxidil (Loniten) 2.5 mg Q4H PRN ORAL bp over 165 syst 04/06/19 14:00 05/01/19 13:59 Ondansetron HCl (Zofran) 4 mg Q6H PRN IVP Nausea & Vomiting 04/06/19 14:00 05/01/19 07:59 Quetiapine Fumarate (SEROqueL) 50 mg TWICE A DAY ORAL 04/06/19 18:00 05/03/19 17:59 04/13/19 08:40 Risperidone (RisperDAL) 1 mg Q12HR ORAL 04/12/19 15:00 05/12/19 14:59 04/13/19 08:40 Tamsulosin HCl (Flomax) 0.4 mg BID ORAL 04/06/19 18:00 05/01/19 12:59 04/13/19 08:40 Temazepam (Restoril) 15 mg HSPRN PRN ORAL Insomnia 04/06/19 14:00 04/13/19 13:59 04/11/19 20:35 Vancomycin HCl (Firvanq) 125 mg FOUR TIMES A DAY ORAL 04/06/19 18:00 04/17/19 23:59 04/13/19 08:40 Vancomycin HCl (Vanco rx to dose) 1 ea DAILY PRN MISC Per rx protocol 04/07/19 09:00 05/01/19 08:14 Adam Moyer MD Apr 13, 2019 12:34
--- NOTE | 2019-04-13 13:37 | General Progress Note ---
Assessment/Plan Problem List: (1) Electrolyte imbalance ICD Codes: E87.8 - Other disorders of electrolyte and fluid balance, not elsewhere classified SNOMED: 627057952 (2) Dehydration ICD Codes: E86.0 - Dehydration SNOMED: 67827864 (3) Anemia ICD Codes: D64.9 - Anemia, unspecified SNOMED: 416009494 (4) CAD (coronary artery disease) ICD Codes: I25.10 - Atherosclerotic heart disease of [place] coronary artery without angina pectoris SNOMED: 30148525 (5) Diabetes ICD Codes: E11.9 - Type 2 diabetes mellitus without complications SNOMED: 96795687 (6) HTN (hypertension) ICD Codes: I10 - Essential (primary) hypertension SNOMED: 58736186 (7) Urinary tract infection ICD Codes: N39.0 - Urinary tract infection, site not specified SNOMED: 44665591 (8) Bladder cancer ICD Codes: C67.9 - Malignant neoplasm of bladder, unspecified SNOMED: 278337485 (9) Acute on chronic renal insufficiency ICD Codes: N28.9 - Disorder of kidney and ureter, unspecified; N18.9 - Chronic kidney disease, unspecified SNOMED: 685279191, 875729303 Status: stable, progressing Assessment/Plan: bladder cancer hb is going down and is 8.2 monitor for bleeding resp insuff uti htn hypoxia respolved dm Subjective ROS Limited/Unobtainable: Yes Allergies: Coded Allergies: No Known Allergies (Unverified , 12/20/18) Objective Last 24 Hour Vital Signs Date Time Temp Pulse Resp B/P (MAP) Pulse Ox O2 Delivery O2 Flow Rate FiO2 04/13/19 09:00 Room Air 04/13/19 08:40 69 138/50 04/13/19 07:50 98.2 69 17 138/50 (79) 100 04/13/19 05:27 118/91 04/13/19 03:51 98.0 75 20 150/73 (98) 96 04/13/19 00:00 99.2 79 17 126/62 (83) 96 04/12/19 21:48 120/67 04/12/19 21:46 86 120/67 04/12/19 21:00 Room Air 04/12/19 20:38 96 Nasal Cannula 2.0 04/12/19 20:00 99.2 86 18 120/67 (84) 96 04/12/19 16:00 98.4 80 19 130/70 (90) 100 Intake and Output 04/12/19 04/13/19 19:00 07:00 Intake Total 875 ml 845 ml Output Total 100 ml 600 ml Balance 775 ml 245 ml Intake Oral 120 ml IV Total 875 ml 725 ml Output Urine Total 600 ml Stool Total 100 ml # Voids 1 Height (Feet): 5 Height (Inches): 9.00 Weight (Pounds): 174 Cardiovascular: normal rate Respiratory/Chest: lungs clear Subhash Corona MD Apr 13, 2019 13:36
--- NOTE | 2019-04-13 14:27 | NUR ---
[employer] IN[employer] SI: LOW O2 SAT T. 97.9 HR 75 RR 20 B/P 152/77 RA 98% H/H 8.4/26.5 IS: IVF D5KCL@ 75ML/HR MARINOL PO HEPARIN SUBC COREG PO MED/SURG STATUS
[2019-04-13 16:00] VITALS: BP 154/67
--- NOTE | 2019-04-13 17:07 | Surgery Progress Note ---
Surgery Progress Note Subjective Additional Comments No acute events. Shaft the penis wound clean. [facility] We will continue to monitor. Objective Last 24 Hour Vital Signs Date Time Temp Pulse Resp B/P (MAP) Pulse Ox O2 Delivery O2 Flow Rate FiO2 04/13/19 16:00 98.9 70 18 154/67 (96) 99 04/13/19 14:00 152/77 04/13/19 12:00 97.9 75 20 152/77 (102) 98 04/13/19 09:00 Room Air 04/13/19 08:40 69 138/50 04/13/19 07:50 98.2 69 17 138/50 (79) 100 04/13/19 05:27 118/91 04/13/19 03:51 98.0 75 20 150/73 (98) 96 04/13/19 00:00 99.2 79 17 126/62 (83) 96 04/12/19 21:48 120/67 04/12/19 21:46 86 120/67 04/12/19 21:00 Room Air 04/12/19 20:38 96 Nasal Cannula 2.0 28 04/12/19 20:00 99.2 86 18 120/67 (84) 96 I&O Intake and Output 04/12/19 04/13/19 19:00 07:00 Intake Total 875 ml 845 ml Output Total 100 ml 600 ml Balance 775 ml 245 ml Intake Oral 120 ml IV Total 875 ml 725 ml Output Urine Total 600 ml Stool Total 100 ml # Voids 1 Dressing: other Wound: other Drains: other Cardiovascular: RSR Respiratory: decreased breath sounds Abdomen: soft, present bowel sounds, non-distended Extremities: no cyanosis, other Plan Problems: (1) Scrotal lesion Assessment & Plan: This is a 83-year-old male with multiple medical morbidities who was identified to have abnormal scrotal lesions on admission. There are 3 lesions on the scrotum clearly identified and likely old small abscesses or carbuncles which have healed slowly. Patient is incontinent With leakage of stool identified around the scrotal sac on the posterior aspect where the lesions are located. No signs of active infection no active drainage nontender skin macerated Recommend washing the scrotum daily with normal saline. Apply skin protectant and moisture absorbent dressing daily and as needed saturation Physical examination was identified to have a draining pustule in the left shaft base of the penis. There is an opening less than a centimeter with drainage of some mild seropurulent fluid and some slough. Wound irrigated cleansed and some non-excisional debridement with gauze was performed. There is significant edema in the area no cellulitis skin otherwise intact. Fair amount of moisture in the area. Will continue with local care We will follow and monitor for healing (2) Sacral decubitus ulcer, stage III Assessment & Plan: Pt presented on admission with multiple pressure injuries. Full thickness sacral pressure injury. Base of wound is viable with an area that is purple in center. Semi-detached black borders(L)9.5cm x (W)4.9cm x(D) 0.2cm .Non-blanching erythema periwound. Multiple pressure injuries Scrotum. Base of pressure injury R scrotum 75% pink granulation,25% slough. Edges pink,flat and adherent to base of wound.(L)2.2cm x (W)0.9cm.Ful thickness pressure injury center -base of scrotum (L)0.5cm x (W) 0.4cm. Base of wound has 100% slough. Full thickness pressure injury L scrotum ( L)2cm x (W01.1cm. Base of wound has 90% slough ,10% viable. Reabsorbing blood blister R heel heel. Base of wound black (L)2.2cm x (W)2cm with red tinged borders with fluctuance. (L)5.5cm x(W)5cm. Reabsorbing Blood Blister L heel. Base of wound is black ,dry with maroon and fluctuant borders.(L)6.5cm x (W)6cm Abd folds are moist and dark but is intact. Penile wound identified. Now open from edema. Slough noted. Slough wiped and cleaned. Non-excisional debridement performed. Wound stable. No longer draining. Tx.Plan: Cleanse Sacral wound with Saline. Apply Therahoney. Apply Moisture Barrier Paste periwound. Cover with Optifoam drsg Daily and prn. Cleanse wounds on Scrotum with saline. Apply Therhaoney to each wound. Cover with Optifoam drsg. Change Daily and prn. Bacitracin to penile wound. Apply Moisture Barrier to Abd folds and Bilat groin Daily and prn. APM/NOLBERTO Mattress overlay. Reposition at least every 2hours or as tolerated. Off-load heels with pillow. (3) Bladder cancer (4) C. difficile colitis Assessment & Plan: blood cultures negative C diff positive - discussed with ID cont abx labs noted and improved exam stable cont current tx Bebeto Pepe Apr 13, 2019 17:07
--- NOTE | 2019-04-13 17:34 | NUR ---
NURSE NOTES:WOUND CARE FOLLOW-UP NOTES:Full thickness sacral pressure injury. Base of wound has 75% slough,25% viable with dry black borders. (L)11cm x (W)5.5cm. Scattered pressure injuries scrotum resolving -pink epithelial noted to wounds R and center base of scrotum. Wound L scrotum at base of shaft of penis has 90% fibrinous slough(L)2cm x (W)1.5cm. Reabsorbing blood blister noted to L heel. Periwound without erythema or fluctuance(L)2cm x (W)3.5cm. All wound prevention protocols continued as care planned. Wound Tx are effective and continued as ordered.
--- NOTE | 2019-04-13 19:10 | NUR ---
NURSE NOTES: Pt received in bed awake, no c/o pain or signs of distress, rectal tube in place, dressings changed today by AM nurse, will monitor for drainage and change if necessary, head of bed elevated, richardson catheter in place, IV fluids running, 2 IV sites. Will continue to monitor.
--- NOTE | 2019-04-13 19:15 | NUR ---
HAND-OFF: Report given to Kin BALLARD RN.
[2019-04-13 20:00] VITALS: BP 139/63
--- NOTE | 2019-04-13 21:00 | Progress Note ---
DATE: 04/13/2019 SUBJECTIVE: This is a male patient, who is 83 years old. He continues to have some mood lability, confusion, and disorganized thought process. He has had a lot of psychomotor agitation and irritability currently and is becoming intermittently combative and agitated on the unit. This is a problem which is one of the main reasons why he requires daily psychiatric consultation. At this time, he does have , low energy, poor appetite, and loss of interest in activity. DIAGNOSIS: The patient has major depressive disorder, severe, recurrent with psychotic features, rule out dementia with psychosis; rule out paranoid schizophrenia. PLAN: Plan for this patient is to treat him with psychotropic medication regimen consisting of Risperdal 1 mg q.12 h. to reduce agitation and irritability, Seroquel 50 mg q.12 h., Namenda 5 mg twice a day, and also Ativan 0.5 mg every six hours p.r.n. anxiety and agitation. Twenty minutes of cognitive behavioral therapy provided to help him identify his automatic negative thoughts, help convert his negative thoughts to more positive thoughts to reduce depression, anxiety, mood lability. Chart reviewed and discussed with staff. Seen and assessed at bedside. Ami Hennessy M.D. DR: Vinod JOB#: [id number] CC:
[2019-04-14] VITALS (7 sets, daily range): BP systolic 117–153; BP diastolic 61–73
--- NOTE | 2019-04-14 03:15 | NUR ---
HAND-OFF: Report given to MATT Cordero.
--- NOTE | 2019-04-14 03:40 | NUR ---
NURSE NOTES: RECEIVED PATIENT LYING IN BED, AWAKE, ALERT/ORIENTED TO PERSON, REALITY ORIENTATION PROVIDED DURING ASSESSMENT, DENIES PAIN. NO SIGNS AND SYMPTOMS OF ACUTE CARDIO RESPIRATORY DISTRESS/SHORTNESS OF BREATH, DENIES CHEST PAIN. DRESSING DRY AND INTACT. NO REPORT OF GI DISCOMFORT, NO NAUSEA/VOMITING, AUDIBLE BOWEL SOUNDS, RECTAL TUBE INTACT, NOTED WITH LIQUID STOOL IN TUBING/DRAINAGE BAG. MANZANO CATHETER INTACT/PATENT, DRAINING JOSE/CLOUDY URINE VIA GRAVITY, NO HEMATURIA. AM CARE PROVIDED, REPOSITIONED FOR COMFORT/PRESSURE RELIEF, TOLERATED WELL. SIDE RAILS UP X3/BED IN LOWEST POSITION FOR SAFETY, CALL LIGHT WITHIN REACH. NAD. CONTINUE WITH CURRENT PLAN OF CARE.
[2019-04-14] MEDS: D5W w/KCl 20mEq 1,000 ML IV SCH ×2 (04:08→21:30)
[2019-04-14] MEDS: HydrALAZINE 50mg tab ORAL SCH ×3 (06:48→21:52)
[2019-04-14] MEDS: NovoLOG Insulin Flexpen SUBQ SCH ×4 (06:52→21:54)
--- NOTE | 2019-04-14 06:58 | Hematology/Onc Progress Note ---
Assessment/Plan Assessment/Plan Assessment and Recs: # ACUTE DEEP VEIN THROMBOSIS BILATERAL, new onset, from 04/02/19 s/p IVC filter on 05/06/[address] Arroyo --> reviewed images with radiology, goes from common to proximal common femoral v ein --> V/Q scan --> shows low prob pe --> given low h/h and low plts, recommend ivc filter placement, consent has been signed --> cleared with other consultants, zen RN --> s/p IVC filter by Dr Arroyo 04/06 --> hold off on anticoagulation until h/h other counts stabilize # Bladder cancer requires resection v chemo/xrt -- presented with multi masses CT shows Scattered eccentric mural thickening/masses in the urinary bladder wall , correlating with findings on recent ultrasound. No significant perivesical stranding. Recommend further evaluation with cystoscopy. --> urology consulted, appreciate input --> Uro note from prior admission: Tolerated bladder tumor resection well. Unfortunately greater part of the bladder is involved and essentially replaced all normal bladder with tumor. I can not resect all the tumors. --> may consider chemo/radiation as outpatient --> path does confirm malignancy --> CBI as needed per uro # Pancytopenia - potential causes multifactorial, evaluate liver and viral etiologies to begin, also could be related to underlying medications patient has received. --> Hep panel and HIV --> NEGATIVE --> US abd showed bladder masses--> ct reviewed as well --> Peripheral smear ordered to evaluate for blasts /schistocytes --> none noted --> abx and other meds have been reviewed --> ok for ppx if plt >50k w/ either heparin or lovenox --> trend plt >92-->104-->86-->73->117k --> wbc trend 3.7-->4.1 # Anemia of iron deficiency likely due to hematuria --> iv iron x 5 days low ferritin, completed from prior admission --> likely due to hematuria --> have started on ivf and consider uro prn cysto --> hgb goal >7 --> cont po folic acid --> hgb trend: 7.4-->8.4 --> as per gi at some point may need egd/colo # Acute renal injury --> cr >1.4-->1.4-->1.7-->1.5-->3.7->1.8 --> per renal recs --> volume expansion # HTN --> cards is following, appreciate recs # C. diff colitis --> on po vanc/flagyl --> per id # Hematuria --> improved # UTI (urinary tract infection) --> per id on abx, cefe/vanc # Scrotal lesions --> per surg eval --> as per wound care # Dehydration # Dvt ppx heparin sq and ivf filter The timing of this note does not necessarily reflect the time of the patient was seen. GREATLY APPRECIATE CONSULTATION. Subjective Constitutional: Denies: no symptoms, chills, fever, malaise, weakness, other HEENT: Denies: no symptoms, eye pain, blurred vision, tearing, double vision, ear pain, ear discharge, nose pain, nose congestion, throat pain, throat swelling, mouth pain, mouth swelling, other Cardiovascular: Denies: no symptoms, chest pain, edema, irregular heart rate, lightheadedness, palpitations, syncope, other Respiratory: Denies: no symptoms, cough, shortness of breath, SOB with excertion, SOB at rest, sputum, wheezing, other Gastrointestinal/Abdominal: Denies: no symptoms, abdomen distended, abdominal pain, black stools, tarry stools, blood in stool, constipated, diarrhea, difficulty swallowing, nausea, poor appetite, poor fluid intake, rectal bleeding , vomiting, other Genitourinary: Denies: no symptoms, burning, discharge, frequency, flank pain, hematuria, incontinence, pain, urgency, other Neurologic/Psychiatric: Denies: no symptoms, anxiety, depressed, emotional problems, headache, numbness, paresthesia, pre-existing deficit, seizure, tingling, tremors, weakness, other Endocrine: Denies: no symptoms, excessive sweating, flushing, intolerance to cold, intolerance to heat, increased hunger, increased thirst, increased urine, unexplained weight gain, unexplained weight loss, other Allergies: Coded Allergies: No Known Allergies (Unverified , 12/20/18) Subjective 04/03: s/p 1 bag iv iron, hgb 7.4, repeat cbc tomorrow, consent for ivc filter has been signed 04/04: is pending clearance of blood cultures, have dw id, potentially thurs for ivcf placement 04/05: no events, still pending ivc filter, have dw rn and id 04/06: no events, no bleeding, pending filter, as per id clearance 04/08: tolerated ivc filter well on 04/06, no events, no bleeding reported 04/09: no events, remains confused is on 2l nc, zen rn 04/10: no events, with lesion noted on penile shaft, no bleeding noted 04/11: no events, tolerated only half of vanc, plt 101, ok to give heparin sq 04/12: on ensure, no bleeding, labs noted, wbc lower, no major changes 04/13: remains confused, labs noted from yesterday, on abx 04/14: no major changes, therahoney dressing changes, no bleeding, labs reviewed Objective Objective Current Medications Medications (Trade) Dose Ordered Sig/Sallie Route PRN Reason Start Time Stop Time Status Last Admin Dose Admin Acetaminophen (Tylenol) 650 mg Q4H PRN ORAL fever 04/06/19 14:00 05/01/19 13:59 Acetaminophen (Tylenol) 650 mg Q4H PRN ORAL Mild Pain/Temp > 100.5 04/13/19 16:15 05/13/19 16:14 Allopurinol (Allopurinol) 300 mg DAILY ORAL 04/07/19 09:00 05/03/19 09:59 04/13/19 08:40 Bacitracin (Bacitracin) 1 applic BID TOPIC 04/12/19 09:00 05/12/19 08:59 04/13/19 08:40 Carvedilol (Coreg) 12.5 mg EVERY 12 HOURS ORAL 04/06/19 21:00 05/01/19 08:59 04/13/19 20:19 Dextrose (Dextrose 50%) 25 ml Q30M PRN IV Hypoglycemia 04/06/19 14:00 05/01/19 10:29 Dextrose (Dextrose 50%) 50 ml Q30M PRN IV Hypoglycemia 04/06/19 14:00 05/01/19 10:29 Dextrose/ Electrolytes 1,000 ml @ 75 mls/hr [id number] IV 04/06/19 13:30 05/04/19 09:59 04/14/19 04:08 Dronabinol (Marinol) 2.5 mg BID ORAL 04/13/19 09:00 05/13/19 08:59 04/13/19 17:09 Heparin Sodium (Porcine) (Heparin 5000 units/ml) 5,000 units EVERY 12 HOURS SUBQ 04/06/19 21:00 05/01/19 08:59 04/13/19 20:20 Hydralazine HCl (Apresoline) 50 mg Q8HR ORAL 04/06/19 14:00 05/01/19 13:59 04/14/19 06:48 Insulin Aspart (NovoLOG) BEFORE MEALS AND HS SUBQ 04/06/19 16:30 05/01/19 11:29 04/14/19 06:52 Lorazepam (Ativan) 0.5 mg Q6H PRN ORAL For Anxiety 04/11/19 13:30 04/18/19 13:29 04/13/19 17:09 Memantine (Namenda) 5 mg BID ORAL 04/11/19 18:00 05/11/19 17:59 04/13/19 17:09 Minoxidil (Loniten) 2.5 mg Q4H PRN ORAL bp over 165 syst 04/06/19 14:00 05/01/19 13:59 Ondansetron HCl (Zofran) 4 mg Q6H PRN IVP Nausea & Vomiting 04/06/19 14:00 05/01/19 07:59 04/13/19 20:19 Quetiapine Fumarate (SEROqueL) 50 mg TWICE A DAY ORAL 04/06/19 18:00 05/03/19 17:59 04/13/19 17:09 Risperidone (RisperDAL) 1 mg Q12HR ORAL 04/12/19 15:00 05/12/19 14:59 04/13/19 20:19 Tamsulosin HCl (Flomax) 0.4 mg BID ORAL 04/06/19 18:00 05/01/19 12:59 04/13/19 17:09 Vancomycin HCl (Firvanq) 125 mg FOUR TIMES A DAY ORAL 04/06/19 18:00 04/17/19 23:59 04/13/19 20:18 Vancomycin HCl (Vanco rx to dose) 1 ea DAILY PRN MISC Per rx protocol 04/07/19 09:00 05/01/19 08:14 Last 24 Hour Vital Signs Date Time Temp Pulse Resp B/P (MAP) Pulse Ox O2 Delivery O2 Flow Rate FiO2 04/14/19 06:48 142/63 04/14/19 04:00 97.8 82 20 140/68 (92) 99 04/14/19 00:00 97.9 74 20 139/61 (87) 98 04/13/19 21:27 152/66 04/13/19 21:00 Room Air 04/13/19 20:19 81 139/63 04/13/19 20:00 96.3 81 22 139/63 (88) 97 04/13/19 16:00 98.9 70 18 154/67 (96) 99 04/13/19 14:00 152/77 04/13/19 12:00 97.9 75 20 152/77 (102) 98 04/13/19 09:00 Room Air 04/13/19 08:40 69 138/50 04/13/19 07:50 98.2 69 17 138/50 (79) 100 04/13/19 05:27 118/91 04/13/19 03:51 98.0 75 20 150/73 (98) 96 04/13/19 00:00 99.2 79 17 126/62 (83) 96 04/12/19 21:48 120/67 04/12/19 21:46 86 120/67 04/12/19 21:00 Room Air 04/12/19 20:38 96 Nasal Cannula 2.0 28 04/12/19 20:00 99.2 86 18 120/67 (84) 96 04/12/19 16:00 98.4 80 19 130/70 (90) 100 04/12/19 13:08 133/63 04/12/19 12:00 97.9 73 18 133/63 (86) 98 04/12/19 09:37 71 147/62 04/12/19 09:00 Room Air 04/12/19 08:00 97.9 71 19 147/62 (90) 99 Intake and Output 04/13/19 04/14/19 19:00 07:00 Intake Total 900 ml 750 ml Output Total 200 ml 1200 ml Balance 700 ml -450 ml Intake Oral 75 ml 75 ml IV Total 825 ml 675 ml Output Urine Total 200 ml 200 ml Stool Total 1000 ml # Voids 1 # Bowel Movements 1 Labs Test 04/12/19 05:05 White Blood Count 4.1 K/UL (4.8-10.8) Red Blood Count 2.97 M/UL (4.70-6.10) Hemoglobin 8.4 G/DL (14.2-18.0) Hematocrit 26.5 % (42.0-52.0) Mean Corpuscular Volume 89 FL (80-99) Mean Corpuscular Hemoglobin 28.4 PG (27.0-31.0) Mean Corpuscular Hemoglobin Concent 31.8 G/DL (32.0-36.0) Red Cell Distribution Width 17.6 % (11.6-14.8) Platelet Count 119 K/UL (150-450) Mean Platelet Volume 7.9 FL (6.5-10.1) Neutrophils (%) (Auto) 61.0 % (45.0-75.0) Lymphocytes (%) (Auto) 19.1 % (20.0-45.0) Monocytes (%) (Auto) 17.3 % (1.0-10.0) Eosinophils (%) (Auto) 1.5 % (0.0-3.0) Basophils (%) (Auto) 1.2 % (0.0-2.0) Sodium Level 137 MMOL/L (136-145) Potassium Level 3.5 MMOL/L (3.5-5.1) Chloride Level 109 MMOL/L (98-107) Carbon Dioxide Level 19 MMOL/L (21-32) Anion Gap 9 mmol/L (5-15) Blood Urea Nitrogen 21 mg/dL (7-18) Creatinine 1.8 MG/DL (0.55-1.30) Estimat Glomerular Filtration Rate mL/min (>60) Glucose Level 158 MG/DL (74-106) Calcium Level 6.9 MG/DL (8.5-10.1) Random Vancomycin Level 14.2 ug/mL Height (Feet): 5 Height (Inches): 9.00 Weight (Pounds): 174 Objective Physical Exam Vital Signs: have been reviewed General Appearance: non-toxic, obese, Chronically Ill Respiratory: chest non-tender, lungs clear, mirian BSs, no rhonchi Cardiovascular: normal inspection, regular rate, rhythm, GI: normal inspection, soft Genitourinary: MANZANO+ Musculoskeletal: normal inspection Neurologic: normal inspection, alert Psychiatric: normal inspection Skin: other - Marcelo Shen MD Apr 14, 2019 06:58
--- NOTE | 2019-04-14 07:45 | Progress Note ---
DATE: 04/14/2019 SUBJECTIVE: This is an 83-year-old male patient. This patient has low oxygen saturation and he has lot of psychomotor agitation and irritability. That is why, daily psychiatric consultation requested. MENTAL STATUS EXAMINATION: This is an 83-year-old male. Appearance is disheveled. Attitude, irritable and agitated. Affect, guarded and restricted. Intellect poor. Mood, depressed and anxious. Motor activity, psychomotor agitation. Attention span is poor. Orientation x2. Speech is pressured. Thought process, disorganized and illogical. Insight and judgment is poor. DIAGNOSIS: Major depressive disorder, severe, recurrent with psychotic features, rule out dementia with psychosis. PLAN: Continue treatment with psychotropic medications to stabilize his mood, reduce agitation, and continue Risperdal twice a day. Chart reviewed. Discussed with staff. Seen and assessed in his room. Ami Hennessy M.D. DR: VINCENT JOB#: [id number] CC:
--- NOTE | 2019-04-14 07:57 | NUR ---
HAND-OFF: Report given to GENE MARINO RN.
--- NOTE | 2019-04-14 07:58 | NUR ---
NURSE NOTES: Received report from MATT Hernandez. Pt is alert and oriented, on RA, no complaints of pain or apparent distress noted. Oconnor catheter in place and draining, rectal tube in place and draining. IV site intact and running fluids. Dressings intact. Bed locked in lowest position, side rails up, call light within reach. Will continue to monitor.
--- NOTE | 2019-04-14 08:12 | Pulmonology Progress Note ---
Assessment/Plan Assessment/Plan ASSESSMENT Acute encephalopathy-resolved Acute hypoxemic respiratory failure, initially- resolved Enterococcal bacteremia due to UTI Enterococcal UTI C. difficile colitis Acute DVT RLE Bladder Ca Anemia of iron deficiency , status post blood transfusion ARF on CKD Mild pulmonary hypertension DM HTN Thrombocytopenia PLAN OF CARE [facility] floor O2 titrate as needed, HHN as needed s/p Rx for UTI, now on oral vanco, contact isolation IV fluids monitor renal parameters ,electrolytes ,correct electrolytes as needed ,avoid nephrotoxic creatinine trending down, prob at baseline now renal US noted, no hydro Venous Duplex BLE + acute DVT RLE VQ scan with low probability of PE s/p t IVC filter 04/06 Echo with EF 60-65 and RVSP 39, no vegetation DVT prophylaxis BP control with BB and hydralazine BS management with SSI/sensitive, HgA1c at goal monitor PLT count , at baseline monitor HH with goal to keep Hgb above 7, stool OB + x 2, CEA WNL GI follows off PPI, started on Marinol protein supplements sas per reg credit assessment analyst recs strict aspiration precautions diet texture as per ST recs BS control, HgA1c at goal supportive care case discussed and evaluated by supervising physician Subjective Allergies: Coded Allergies: No Known Allergies (Unverified , 12/20/18) Subjective remains afebrile, no leukocytosis, creat trended down, probably to baseline now pulse ox stable intermittent abd pain Objective Last 24 Hour Vital Signs Date Time Temp Pulse Resp B/P (MAP) Pulse Ox O2 Delivery O2 Flow Rate FiO2 04/14/19 06:48 142/63 04/14/19 04:00 97.8 82 20 140/68 (92) 99 04/14/19 00:00 97.9 74 20 139/61 (87) 98 04/13/19 21:27 152/66 04/13/19 21:00 Room Air 04/13/19 20:19 81 139/63 04/13/19 20:00 96.3 81 22 139/63 (88) 97 04/13/19 16:00 98.9 70 18 154/67 (96) 99 04/13/19 14:00 152/77 04/13/19 12:00 97.9 75 20 152/77 (102) 98 04/13/19 09:00 Room Air 04/13/19 08:40 69 138/50 Intake and Output 04/13/19 04/14/19 19:00 07:00 Intake Total 900 ml 750 ml Output Total 200 ml 1200 ml Balance 700 ml -450 ml Intake Oral 75 ml 75 ml IV Total 825 ml 675 ml Output Urine Total 200 ml 200 ml Stool Total 1000 ml # Voids 1 # Bowel Movements 1 General Appearance: no acute distress, other - chroncially ill looking AA male HEENT: normocephalic, atraumatic, anicteric, mucous membranes moist Respiratory/Chest: lungs clear, no respiratory distress, no accessory muscle use Cardiovascular: normal rate, no JVD Abdomen: normal bowel sounds, soft, non tender, non distended Extremities: no edema, pedal pulses normal Neurologic/Psychiatric: abnormal gait, alert, responsive Musculoskeletal: atrophy - BLE Current Medications Medications (Trade) Dose Ordered Sig/Sallie Route PRN Reason Start Time Stop Time Status Last Admin Dose Admin Acetaminophen (Tylenol) 650 mg Q4H PRN ORAL fever 04/06/19 14:00 05/01/19 13:59 Acetaminophen (Tylenol) 650 mg Q4H PRN ORAL Mild Pain/Temp > 100.5 04/13/19 16:15 05/13/19 16:14 Allopurinol (Allopurinol) 300 mg DAILY ORAL 04/07/19 09:00 05/03/19 09:59 04/13/19 08:40 Bacitracin (Bacitracin) 1 applic BID TOPIC 04/12/19 09:00 05/12/19 08:59 04/13/19 08:40 Carvedilol (Coreg) 12.5 mg EVERY 12 HOURS ORAL 04/06/19 21:00 05/01/19 08:59 04/13/19 20:19 Dextrose (Dextrose 50%) 25 ml Q30M PRN IV Hypoglycemia 04/06/19 14:00 05/01/19 10:29 Dextrose (Dextrose 50%) 50 ml Q30M PRN IV Hypoglycemia 04/06/19 14:00 05/01/19 10:29 Dextrose/ Electrolytes 1,000 ml @ 75 mls/hr [id number] IV 04/06/19 13:30 05/04/19 09:59 04/14/19 04:08 Dronabinol (Marinol) 2.5 mg BID ORAL 04/13/19 09:00 05/13/19 08:59 04/13/19 17:09 Heparin Sodium (Porcine) (Heparin 5000 units/ml) 5,000 units EVERY 12 HOURS SUBQ 04/06/19 21:00 05/01/19 08:59 04/13/19 20:20 Hydralazine HCl (Apresoline) 50 mg Q8HR ORAL 04/06/19 14:00 05/01/19 13:59 04/14/19 06:48 Insulin Aspart (NovoLOG) BEFORE MEALS AND HS SUBQ 04/06/19 16:30 05/01/19 11:29 04/14/19 06:52 Lorazepam (Ativan) 0.5 mg Q6H PRN ORAL For Anxiety 04/11/19 13:30 04/18/19 13:29 04/13/19 17:09 Memantine (Namenda) 5 mg BID ORAL 04/11/19 18:00 05/11/19 17:59 04/13/19 17:09 Minoxidil (Loniten) 2.5 mg Q4H PRN ORAL bp over 165 syst 04/06/19 14:00 05/01/19 13:59 Ondansetron HCl (Zofran) 4 mg Q6H PRN IVP Nausea & Vomiting 04/06/19 14:00 05/01/19 07:59 04/13/19 20:19 Quetiapine Fumarate (SEROqueL) 50 mg TWICE A DAY ORAL 04/06/19 18:00 05/03/19 17:59 04/13/19 17:09 Risperidone (RisperDAL) 1 mg Q12HR ORAL 04/12/19 15:00 05/12/19 14:59 04/13/19 20:19 Tamsulosin HCl (Flomax) 0.4 mg BID ORAL 04/06/19 18:00 05/01/19 12:59 04/13/19 17:09 Vancomycin HCl (Firvanq) 125 mg FOUR TIMES A DAY ORAL 04/06/19 18:00 04/17/19 23:59 04/13/19 20:18 Vancomycin HCl (Vanco rx to dose) 1 ea DAILY PRN MISC Per rx protocol 04/07/19 09:00 05/01/19 08:14 Lacey Brenner SECURITY SYSTEMS MANAGER Apr 14, 2019 08:12
--- NOTE | 2019-04-14 08:32 | NUR ---
NURSE NOTES: RN made Dr. Mcallister aware of pt's Hgb 8.4, Hct 26.5, Plt 119, Ca 6.9.
--- NOTE | 2019-04-14 08:52 | NUR ---
NURSE NOTES: No new orders received from Dr. Mcallister.
[2019-04-14] MEDS: Dronabinol 2.5mg Cap ORAL SCH ×2 (09:00→18:00)
[2019-04-14] MEDS: Bacitracin Oint UD TOPIC SCH ×3 (09:00→17:58)
[2019-04-14] MEDS: Memantine 5 MG TAB ORAL SCH ×2 (09:00→18:00)
[2019-04-14] MEDS: Carvedilol 12.5mg tab ORAL SCH ×2 (09:00→21:52)
[2019-04-14] MEDS: Tamsulosin 0.4mg cap ORAL SCH ×2 (09:23→17:57)
[2019-04-14] MEDS: Vancomycin oral 125mg/2.5ml ORAL SCH ×4 (09:23→21:52)
[2019-04-14] MEDS: Heparin 5000 units/ml inj SUBQ SCH ×2 (09:31→21:53)
--- NOTE | 2019-04-14 11:27 | NUR ---
NURSE NOTES: Wound photos taken and dressing changed. Pt tolerated well.
--- NOTE | 2019-04-14 11:43 | NUR ---
NURSE NOTES: RN did not administer Novolog for pt's BG 156 since pt hasn't been eating at all.
--- NOTE | 2019-04-14 12:30 | NUR ---
NURSE NOTES: RN asked Dr. Piedra about possible PICC placement. Awaiting for response.
[2019-04-14] MEDS ORDERED: Vancomycin 1.25gm/NS Premix IVPB ONE (13:30)
--- NOTE | 2019-04-14 14:41 | Surgery Progress Note ---
Surgery Progress Note Subjective Additional Comments penile wound improving. no drainage. only sloth dressing changes going well comfortable no complaints Objective Last 24 Hour Vital Signs Date Time Temp Pulse Resp B/P (MAP) Pulse Ox O2 Delivery O2 Flow Rate FiO2 04/14/19 13:47 138/64 04/14/19 13:15 79 138/64 (88) 04/14/19 12:00 98.8 80 20 117/67 (84) 96 04/14/19 09:00 Room Air 04/14/19 08:00 98.2 73 20 139/64 (89) 95 04/14/19 06:48 142/63 04/14/19 04:00 97.8 82 20 140/68 (92) 99 04/14/19 00:00 97.9 74 20 139/61 (87) 98 04/13/19 21:27 152/66 04/13/19 21:00 Room Air 04/13/19 20:19 81 139/63 04/13/19 20:00 96.3 81 22 139/63 (88) 97 04/13/19 16:00 98.9 70 18 154/67 (96) 99 I&O Intake and Output 04/13/19 04/14/19 19:00 07:00 Intake Total 900 ml 750 ml Output Total 200 ml 1200 ml Balance 700 ml -450 ml Intake Oral 75 ml 75 ml IV Total 825 ml 675 ml Output Urine Total 200 ml 200 ml Stool Total 1000 ml # Voids 1 # Bowel Movements 1 Dressing: other Wound: other Drains: other Cardiovascular: RSR Respiratory: decreased breath sounds Abdomen: soft, present bowel sounds Extremities: no cyanosis, other Plan Problems: (1) Scrotal lesion Assessment & Plan: This is a 83-year-old male with multiple medical morbidities who was identified to have abnormal scrotal lesions on admission. There are 3 lesions on the scrotum clearly identified and likely old small abscesses or carbuncles which have healed slowly. Patient is incontinent With leakage of stool identified around the scrotal sac on the posterior aspect where the lesions are located. No signs of active infection no active drainage nontender skin macerated Recommend washing the scrotum daily with normal saline. Apply skin protectant and moisture absorbent dressing daily and as needed saturation Physical examination was identified to have a draining pustule in the left shaft base of the penis. There is an opening less than a centimeter with drainage of some mild seropurulent fluid and some slough. Wound irrigated cleansed and some non-excisional debridement with gauze was performed. There is significant edema in the area no cellulitis skin otherwise intact. Fair amount of moisture in the area. Will continue with local care We will follow and monitor for healing (2) Sacral decubitus ulcer, stage III Assessment & Plan: Pt presented on admission with multiple pressure injuries. Full thickness sacral pressure injury. Base of wound is viable with an area that is purple in center. Semi-detached black borders(L)9.5cm x (W)4.9cm x(D) 0.2cm .Non-blanching erythema periwound. Multiple pressure injuries Scrotum. Base of pressure injury R scrotum 75% pink granulation,25% slough. Edges pink,flat and adherent to base of wound.(L)2.2cm x (W)0.9cm.Ful thickness pressure injury center -base of scrotum (L)0.5cm x (W) 0.4cm. Base of wound has 100% slough. Full thickness pressure injury L scrotum ( L)2cm x (W01.1cm. Base of wound has 90% slough ,10% viable. Reabsorbing blood blister R heel heel. Base of wound black (L)2.2cm x (W)2cm with red tinged borders with fluctuance. (L)5.5cm x(W)5cm. Reabsorbing Blood Blister L heel. Base of wound is black ,dry with maroon and fluctuant borders.(L)6.5cm x (W)6cm Abd folds are moist and dark but is intact. Penile wound identified. Now open from edema. Slough noted. Slough wiped and cleaned. Non-excisional debridement performed. Wound stable. No longer draining. Tx.Plan: Cleanse Sacral wound with Saline. Apply Therahoney. Apply Moisture Barrier Paste periwound. Cover with Optifoam drsg Daily and prn. Cleanse wounds on Scrotum with saline. Apply Therhaoney to each wound. Cover with Optifoam drsg. Change Daily and prn. Bacitracin to penile wound. Apply Moisture Barrier to Abd folds and Bilat groin Daily and prn. APM/NOLBERTO Mattress overlay. Reposition at least every 2hours or as tolerated. Off-load heels with pillow. (3) Bladder cancer (4) C. difficile colitis Assessment & Plan: blood cultures negative C diff positive - discussed with ID cont abx labs noted and improved exam stable cont current tx Bebeto Pepe Apr 14, 2019 14:41
--- NOTE | 2019-04-14 16:42 | NUR ---
NURSE NOTES: RN held off on Novolog d/t pt refusing to eat.
--- NOTE | 2019-04-14 17:07 | NUR ---
NURSE NOTES: Dr. Piedra said ok for PICC line placement. RN called pt's family member to obtain consent for PICC line placement but nobody answered.
--- NOTE | 2019-04-14 17:38 | General Progress Note ---
Assessment/Plan Status: stable, progressing Assessment/Plan: Assessment/Plan C Diff Colitis Anemia OB (+) OBS Dementia diarrhea anorexia Decubitus ulcer Recommendations - switch to IV flagyl for now - need to contact family re PEG - will likely need PEG for feeds and medications Subjective Allergies: Coded Allergies: No Known Allergies (Unverified , 12/20/18) Subjective above noted refusing PO diet refusing PO vanco confused Objective Last 24 Hour Vital Signs Date Time Temp Pulse Resp B/P (MAP) Pulse Ox O2 Delivery O2 Flow Rate FiO2 04/14/19 16:00 98.4 82 20 117/73 (88) 98 04/14/19 13:47 138/64 04/14/19 13:15 79 138/64 (88) 04/14/19 12:00 98.8 80 20 117/67 (84) 96 04/14/19 09:00 Room Air 04/14/19 08:00 98.2 73 20 139/64 (89) 95 04/14/19 06:48 142/63 04/14/19 04:00 97.8 82 20 140/68 (92) 99 04/14/19 00:00 97.9 74 20 139/61 (87) 98 04/13/19 21:27 152/66 04/13/19 21:00 Room Air 04/13/19 20:19 81 139/63 04/13/19 20:00 96.3 81 22 139/63 (88) 97 Intake and Output 04/13/19 04/14/19 19:00 07:00 Intake Total 900 ml 750 ml Output Total 200 ml 1200 ml Balance 700 ml -450 ml Intake Oral 75 ml 75 ml IV Total 825 ml 675 ml Output Urine Total 200 ml 200 ml Stool Total 1000 ml # Voids 1 # Bowel Movements 1 Height (Feet): 5 Height (Inches): 9.00 Weight (Pounds): 174 Objective WDWN NCAT supple CTA RR' abd soft no edema Deana Bhandari MD Apr 14, 2019 17:38
--- NOTE | 2019-04-14 18:18 | Nephrology Progress Note ---
Assessment/Plan Problem List: (1) ARF (acute renal failure) (2) Acute on chronic renal insufficiency (3) Diabetes (4) HTN (hypertension) (5) Bladder cancer (6) Invasive carcinoma of urinary bladder (7) Anemia Assessment Acute renal failure ? Superimposed CKD Bladder Mass / h/o Hematuria HTN DM Anemia, previous transfusions s/p Cystoscopy 12/28 Plan no labs today hardly takes PO meds med-surg favor transfusion Hydrate richardson IV Iron K Supplement BP management, BP med adjustment Monitor lytes and renal parameters Kidney ESDRAS , no hydro per orders Previous Uro note: Tolerated bladder tumor resection well. Unfortunately greater part of the bladder is involved and essentially replaced all normal bladder with tumor. I can not resect all the tumors. Patient needs a radical cystectomy (removal of bladder) or radiation/chemotherapy at higher level of care. 1. recommend transfer to higher level of care for cystectomy 2. continue richardson, keep irrigation to maintain light pink urine. Multiple mass like lesions within the bladder. Further evaluation with cystoscopy is recommended to evaluate for possible neoplasm. Multiple parapelvic renal cysts Subjective ROS Limited/Unobtainable: No Constitutional: Reports: malaise Objective Objective Last 24 Hour Vital Signs Date Time Temp Pulse Resp B/P (MAP) Pulse Ox O2 Delivery O2 Flow Rate FiO2 04/14/19 16:00 98.4 82 20 117/73 (88) 98 04/14/19 13:47 138/64 04/14/19 13:15 79 138/64 (88) 04/14/19 12:00 98.8 80 20 117/67 (84) 96 04/14/19 09:00 Room Air 04/14/19 08:00 98.2 73 20 139/64 (89) 95 04/14/19 06:48 142/63 04/14/19 04:00 97.8 82 20 140/68 (92) 99 04/14/19 00:00 97.9 74 20 139/61 (87) 98 04/13/19 21:27 152/66 04/13/19 21:00 Room Air 04/13/19 20:19 81 139/63 04/13/19 20:00 96.3 81 22 139/63 (88) 97 Intake and Output 04/13/19 04/14/19 19:00 07:00 Intake Total 900 ml 750 ml Output Total 200 ml 1200 ml Balance 700 ml -450 ml Intake Oral 75 ml 75 ml IV Total 825 ml 675 ml Output Urine Total 200 ml 200 ml Stool Total 1000 ml # Voids 1 # Bowel Movements 1 Height (Feet): 5 Height (Inches): 9.00 Weight (Pounds): 174 General Appearance: no apparent distress Objective no change Russell Sofia MD Apr 14, 2019 18:18
--- NOTE | 2019-04-14 19:20 | NUR ---
NURSE NOTES: Pt received in bed asleep, no signs of distress, able to make needs known, rectal tube in place draining, richardson catheter draining, pt without iV access , will attempt to start a new one, will continue to monitor.
--- NOTE | 2019-04-14 19:35 | NUR ---
HAND-OFF: Report given to MATT Manriquez.
--- NOTE | 2019-04-14 22:19 | General Progress Note ---
Assessment/Plan Problem List: (1) Electrolyte imbalance ICD Codes: E87.8 - Other disorders of electrolyte and fluid balance, not elsewhere classified SNOMED: 663983768 (2) Dehydration ICD Codes: E86.0 - Dehydration SNOMED: 70870081 (3) Anemia ICD Codes: D64.9 - Anemia, unspecified SNOMED: 064815997 (4) CAD (coronary artery disease) ICD Codes: I25.10 - Atherosclerotic heart disease of [place] coronary artery without angina pectoris SNOMED: 69432658 (5) Diabetes ICD Codes: E11.9 - Type 2 diabetes mellitus without complications SNOMED: 93137598 (6) HTN (hypertension) ICD Codes: I10 - Essential (primary) hypertension SNOMED: 87205523 (7) Urinary tract infection ICD Codes: N39.0 - Urinary tract infection, site not specified SNOMED: 67405884 (8) Bladder cancer ICD Codes: C67.9 - Malignant neoplasm of bladder, unspecified SNOMED: 929979288 (9) Acute on chronic renal insufficiency ICD Codes: N28.9 - Disorder of kidney and ureter, unspecified; N18.9 - Chronic kidney disease, unspecified SNOMED: 839490328, 211015794 Status: stable, progressing Assessment/Plan: bladder cancer uti check h/h anemia moniter for bleeding Subjective ROS Limited/Unobtainable: Yes Allergies: Coded Allergies: No Known Allergies (Unverified , 12/20/18) Objective Last 24 Hour Vital Signs Date Time Temp Pulse Resp B/P (MAP) Pulse Ox O2 Delivery O2 Flow Rate FiO2 04/14/19 21:52 153/73 04/14/19 21:52 87 153/73 04/14/19 16:00 98.4 82 20 117/73 (88) 98 04/14/19 13:47 138/64 04/14/19 13:15 79 138/64 (88) 04/14/19 12:00 98.8 80 20 117/67 (84) 96 04/14/19 09:00 Room Air 04/14/19 08:00 98.2 73 20 139/64 (89) 95 04/14/19 06:48 142/63 04/14/19 04:00 97.8 82 20 140/68 (92) 99 04/14/19 00:00 97.9 74 20 139/61 (87) 98 Intake and Output 04/13/19 04/14/19 19:00 07:00 Intake Total 900 ml 750 ml Output Total 200 ml 1200 ml Balance 700 ml -450 ml Intake Oral 75 ml 75 ml IV Total 825 ml 675 ml Output Urine Total 200 ml 200 ml Stool Total 1000 ml # Voids 1 # Bowel Movements 1 Height (Feet): 5 Height (Inches): 9.00 Weight (Pounds): 174 Subhash Corona MD Apr 14, 2019 22:19
--- NOTE | 2019-04-14 22:50 | NUR ---
NURSE NOTES: Spoke with Dr. Germán melendez order to change Flagyl to PO q 6hrs.
[2019-04-15] VITALS (8 sets, daily range): BP systolic 115–154; BP diastolic 54–69
--- NOTE | 2019-04-15 01:00 | NUR ---
NURSE NOTES: Flagyl 500mg crushed and given PO
[2019-04-15] MEDS: metroNIDAZOLE 500mg tab ORAL SCH ×2 (01:02→05:39)
[2019-04-15] MEDS: HydrALAZINE 50mg tab ORAL SCH ×3 (05:40→21:51)
[2019-04-15] MEDS: NovoLOG Insulin Flexpen SUBQ SCH ×4 (05:46→21:46)
[2019-04-15] MEDS: LORazepam 0.5mg tab ORAL PRN (06:15)
--- NOTE | 2019-04-15 07:00 | NUR ---
HAND-OFF: Report given to MATT Sena.
--- NOTE | 2019-04-15 07:00 | NUR ---
NURSE NOTES: Received report from MATT Manriquez. Pt is alert and awake, on RA, no complaints of pain or apparent distress noted. IV site intact and running fluids. Oconnor catheter in place and draining, rectal tube in place and draining. Dressings intact. Bed locked in lowest position, side rails up, call light within reach. Will continue to monitor.
[2019-04-15] MEDS: Memantine 5 MG TAB ORAL SCH ×2 (09:00→18:00)
[2019-04-15] MEDS: Carvedilol 12.5mg tab ORAL SCH ×2 (09:00→21:52)
[2019-04-15] MEDS: Heparin 5000 units/ml inj SUBQ SCH ×2 (09:00→21:51)
[2019-04-15] MEDS: Tamsulosin 0.4mg cap ORAL SCH ×2 (09:19→18:00)
[2019-04-15] MEDS: Vancomycin oral 125mg/2.5ml ORAL SCH ×4 (09:20→21:45)
[2019-04-15] MEDS: Bacitracin Oint UD TOPIC SCH ×2 (09:20→18:14)
[2019-04-15] MEDS: Dronabinol 2.5mg Cap ORAL SCH ×2 (09:23→18:00)
--- NOTE | 2019-04-15 09:45 | NUR ---
NURSE NOTES: RN spoke with Carin in Pharmacy about scheduled vanco that could not be administered yesterday d/t pt having no IV access. Carin verified it is ok to give vanco now.
--- NOTE | 2019-04-15 09:48 | General Progress Note ---
Assessment/Plan Status: stable, progressing Assessment/Plan: Assessment/Plan C Diff Colitis Anemia OB (+) OBS Dementia diarrhea anorexia Decubitus ulcer Recommendations - switch to IV flagyl for now - need IV access - need to contact family re PEG - will ask COMMUNICATIONS ENGINEERING TECHNICIAN to help - will likely need PEG for feeds and medications Subjective Allergies: Coded Allergies: No Known Allergies (Unverified , 12/20/18) Subjective above noted no IV access for IV flagyl I have been unable to locate next of kin Objective Last 24 Hour Vital Signs Date Time Temp Pulse Resp B/P (MAP) Pulse Ox O2 Delivery O2 Flow Rate FiO2 04/15/19 08:00 97.4 78 20 148/54 (85) 96 04/15/19 05:40 129/71 04/15/19 04:00 98.4 102 21 123/64 (83) 96 04/15/19 00:00 97.4 94 21 115/60 (78) 97 04/14/19 21:52 153/73 04/14/19 21:52 87 153/73 04/14/19 21:00 Room Air 04/14/19 20:00 98.6 83 20 153/73 (99) 96 04/14/19 16:00 98.4 82 20 117/73 (88) 98 04/14/19 13:47 138/64 04/14/19 13:15 79 138/64 (88) 04/14/19 12:00 98.8 80 20 117/67 (84) 96 Intake and Output 04/14/19 04/15/19 19:00 07:00 Intake Total 75 ml Output Total 600 ml 600 ml Balance -600 ml -525 ml Intake Oral 75 ml Output Urine Total 500 ml 500 ml Stool Total 100 ml 100 ml # Voids 1 # Bowel Movements 1 Height (Feet): 5 Height (Inches): 9.00 Weight (Pounds): 174 Objective WDWN NCAT supple CTA RR' abd soft no edema Deana Bhandari MD Apr 15, 2019 09:48
[2019-04-15] MEDS ORDERED: Vancomycin 1.25gm/NS Premix IVPB ONE (10:00)
[2019-04-15] MEDS: D5W w/KCl 20mEq 1,000 ML IV SCH (10:04)
--- NOTE | 2019-04-15 10:09 | Nephrology Progress Note ---
Assessment/Plan Problem List: (1) ARF (acute renal failure) (2) Acute on chronic renal insufficiency (3) Diabetes (4) HTN (hypertension) (5) Bladder cancer (6) Invasive carcinoma of urinary bladder (7) Anemia Assessment Acute renal failure ? Superimposed CKD Bladder Mass / h/o Hematuria HTN DM Anemia, previous transfusions s/p Cystoscopy 12/28 Plan no labs today- refuses blood draw hardly takes PO meds med-surg favor transfusion Hydrate richardson IV Iron K Supplement BP management, BP med adjustment Monitor lytes and renal parameters Kidney ESDRAS , no hydro per orders Previous Uro note: Tolerated bladder tumor resection well. Unfortunately greater part of the bladder is involved and essentially replaced all normal bladder with tumor. I can not resect all the tumors. Patient needs a radical cystectomy (removal of bladder) or radiation/chemotherapy at higher level of care. 1. recommend transfer to higher level of care for cystectomy 2. continue richardson, keep irrigation to maintain light pink urine. Multiple mass like lesions within the bladder. Further evaluation with cystoscopy is recommended to evaluate for possible neoplasm. Multiple parapelvic renal cysts Subjective ROS Limited/Unobtainable: No Constitutional: Reports: malaise, weakness Objective Objective Last 24 Hour Vital Signs Date Time Temp Pulse Resp B/P (MAP) Pulse Ox O2 Delivery O2 Flow Rate FiO2 04/15/19 08:00 97.4 78 20 148/54 (85) 96 04/15/19 05:40 129/71 04/15/19 04:00 98.4 102 21 123/64 (83) 96 04/15/19 00:00 97.4 94 21 115/60 (78) 97 04/14/19 21:52 153/73 04/14/19 21:52 87 153/73 04/14/19 21:00 Room Air 04/14/19 20:00 98.6 83 20 153/73 (99) 96 04/14/19 16:00 98.4 82 20 117/73 (88) 98 04/14/19 13:47 138/64 04/14/19 13:15 79 138/64 (88) 04/14/19 12:00 98.8 80 20 117/67 (84) 96 Intake and Output 04/14/19 04/15/19 19:00 07:00 Intake Total 75 ml Output Total 600 ml 600 ml Balance -600 ml -525 ml Intake Oral 75 ml Output Urine Total 500 ml 500 ml Stool Total 100 ml 100 ml # Voids 1 # Bowel Movements 1 Height (Feet): 5 Height (Inches): 9.00 Weight (Pounds): 174 General Appearance: no apparent distress Objective no change Russell Sofia MD Apr 15, 2019 10:09
--- NOTE | 2019-04-15 10:24 | Pulmonology Progress Note ---
Assessment/Plan Assessment/Plan ASSESSMENT Acute encephalopathy-resolved Acute hypoxemic respiratory failure, initially- resolved Enterococcal bacteremia due to UTI Enterococcal UTI C. difficile positive Acute DVT RLE Bladder Ca Anemia of iron deficiency , status post blood transfusion ARF on CKD Mild pulmonary hypertension DM HTN Thrombocytopenia PLAN OF CARE [facility] floor O2 titrate as needed, HHN as needed s/p Rx for UTI, now on oral vanco, contact isolation IV fluids monitor renal parameters ,electrolytes ,correct electrolytes as needed ,avoid nephrotoxic creatinine trending down, prob at baseline now renal US noted, no hydro Venous Duplex BLE + acute DVT RLE VQ scan with low probability of PE s/p t IVC filter 04/06 Echo with EF 60-65 and RVSP 39, no vegetation DVT prophylaxis BP control with BB and hydralazine BS management with SSI/sensitive, HgA1c at goal monitor PLT count , at baseline monitor HH with goal to keep Hgb above 7, stool OB + x 2, CEA WNL GI follows off PPI, started on Marinol 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 diet texture as per ST recs BS control, HgA1c at goal supportive care case discussed and evaluated by supervising physician Subjective Allergies: Coded Allergies: No Known Allergies (Unverified , 12/20/18) Subjective remains afebrile, no leukocytosis, creat trended down, probably to baseline now pulse ox stable intermittent abd pain Objective Last 24 Hour Vital Signs Date Time Temp Pulse Resp B/P (MAP) Pulse Ox O2 Delivery O2 Flow Rate FiO2 04/15/19 08:00 97.4 78 20 148/54 (85) 96 04/15/19 05:40 129/71 04/15/19 04:00 98.4 102 21 123/64 (83) 96 04/15/19 00:00 97.4 94 21 115/60 (78) 97 04/14/19 21:52 153/73 04/14/19 21:52 87 153/73 04/14/19 21:00 Room Air 04/14/19 20:00 98.6 83 20 153/73 (99) 96 04/14/19 16:00 98.4 82 20 117/73 (88) 98 04/14/19 13:47 138/64 04/14/19 13:15 79 138/64 (88) 04/14/19 12:00 98.8 80 20 117/67 (84) 96 Intake and Output 04/14/19 04/15/19 19:00 07:00 Intake Total 75 ml Output Total 600 ml 600 ml Balance -600 ml -525 ml Intake Oral 75 ml Output Urine Total 500 ml 500 ml Stool Total 100 ml 100 ml # Voids 1 # Bowel Movements 1 Objective General Appearance: no acute distress, chronically ill looking AA male HEENT: normocephalic, atraumatic, anicteric, mucous membranes moist Respiratory/Chest: lungs clear, no respiratory distress, no accessory muscle use Cardiovascular: normal rate, no JVD Abdomen: normal bowel sounds, soft, non tender, non distended : [place] with dark michelle urine Extremities: no edema, pedal pulses normal Neurologic/Psychiatric: abnormal gait, alert, responsive Musculoskeletal: atrophy - BLE Current Medications Medications (Trade) Dose Ordered Sig/Sallie Route PRN Reason Start Time Stop Time Status Last Admin Dose Admin Acetaminophen (Tylenol) 650 mg Q4H PRN ORAL fever 04/06/19 14:00 05/01/19 13:59 Acetaminophen (Tylenol) 650 mg Q4H PRN ORAL Mild Pain/Temp > 100.5 04/13/19 16:15 05/13/19 16:14 Allopurinol (Allopurinol) 300 mg DAILY ORAL 04/07/19 09:00 05/03/19 09:59 04/13/19 08:40 Bacitracin (Bacitracin) 1 applic BID TOPIC 04/12/19 09:00 05/12/19 08:59 04/15/19 09:20 Carvedilol (Coreg) 12.5 mg EVERY 12 HOURS ORAL 04/06/19 21:00 05/01/19 08:59 04/14/19 21:52 Chlorhexidine Gluconate (Abril-Hex 2%) 1 applic DAILY@1999 TOPIC 04/16/19 20:00 05/16/19 19:59 Dextrose (Dextrose 50%) 25 ml Q30M PRN IV Hypoglycemia 04/06/19 14:00 05/01/19 10:29 Dextrose (Dextrose 50%) 50 ml Q30M PRN IV Hypoglycemia 04/06/19 14:00 05/01/19 10:29 Dextrose/ Electrolytes 1,000 ml @ 75 mls/hr [id number] IV 04/06/19 13:30 05/04/19 09:59 04/15/19 10:04 Dronabinol (Marinol) 2.5 mg BID ORAL 04/13/19 09:00 05/13/19 08:59 04/15/19 09:23 Heparin Sodium (Porcine) (Heparin 5000 units/ml) 5,000 units EVERY 12 HOURS SUBQ 04/06/19 21:00 05/01/19 08:59 04/14/19 21:53 Heparin Sodium/ Sodium Chloride (Heparin 1000 units/500ml Premix) 1,000 unit ONCE PRN IV PICC PLACEMENT 04/16/19 12:00 04/16/19 23:59 Hydralazine HCl (Apresoline) 50 mg Q8HR ORAL 04/06/19 14:00 05/01/19 13:59 04/15/19 05:40 Insulin Aspart (NovoLOG) BEFORE MEALS AND HS SUBQ 04/06/19 16:30 05/01/19 11:29 04/15/19 05:46 Lidocaine HCl (Xylocaine 1% 30ml) 30 ml ONCE PRN INJ PICC PLACEMENT 04/16/19 12:00 04/16/19 23:59 Lorazepam (Ativan) 0.5 mg Q6H PRN ORAL For Anxiety 04/11/19 13:30 04/18/19 13:29 04/15/19 06:15 Memantine (Namenda) 5 mg BID ORAL 04/11/19 18:00 05/11/19 17:59 04/13/19 17:09 Metronidazole (Flagyl) 500 mg Q6HR ORAL 04/15/19 00:00 04/22/19 00:00 04/15/19 05:39 Minoxidil (Loniten) 2.5 mg Q4H PRN ORAL bp over 165 syst 04/06/19 14:00 05/01/19 13:59 Ondansetron HCl (Zofran) 4 mg Q6H PRN IVP Nausea & Vomiting 04/06/19 14:00 05/01/19 07:59 04/13/19 20:19 Quetiapine Fumarate (SEROqueL) 50 mg TWICE A DAY ORAL 04/06/19 18:00 05/03/19 17:59 04/15/19 09:23 Risperidone (RisperDAL) 1 mg Q12HR ORAL 04/12/19 15:00 05/12/19 14:59 04/15/19 09:22 Tamsulosin HCl (Flomax) 0.4 mg BID ORAL 04/06/19 18:00 05/01/19 12:59 04/15/19 09:19 Vancomycin HCl (Firvanq) 125 mg FOUR TIMES A DAY ORAL 04/06/19 18:00 04/17/19 23:59 04/15/19 09:20 Vancomycin HCl (Vanco rx to dose) 1 ea DAILY PRN MISC Per rx protocol 04/07/19 09:00 05/01/19 08:14 Vancomycin/Sodium Chloride 275 ml @ 183.333 mls/hr ONCE ONCE IVPB 04/15/19 10:00 04/15/19 11:29 04/15/19 10:04 Lacey Brenner NP Apr 15, 2019 10:24
--- NOTE | 2019-04-15 11:43 | NUR ---
NURSE NOTES: RN spoke with Lillie in Pharmacy and verified that it is ok to use Flagyl that could not be administered yesterday d/t pt having no IV access since it's a premix.
--- NOTE | 2019-04-15 11:48 | Infectious Diseases Prog Note ---
Assessment/Plan Assessment/Plan 83yo gentleman with PMH below presents from custodial with confusion, wheezing and desaturation between 83-90%. Pt is oriented to self. Does not know where he is or why he is in the hospital. He initially says yes to abdominal pain, suprapubic pain, leg pain, arm pain but then denied it on second question. Denies fever, chills, cough, sob, diarrhea, dysuria. Unclear baseline. Pt recently had blood transfusion at [facility] 03/06. Pt was recently diagnosed with bladder cancer 12/2018 Afebrile On RA No leukocytosis No lactic acidosis Hypoxia at custodial, SP Possible PNA? flu swab negative CXR: Mild diffuse airspace opacities in both lungs. Lungs are underinflated.Lung findings are likely due to underinflation rather than pulmonary edema or atelectasis. Possible UTI? UA WBC TNTC, also moderate epithelial cells UCx: 50-60K amp sensitive E faecalis E faecalis bacteremia likely / UTI 04/01 BCx: E faecalis 04/02 BCx: neg TTE without vegetation C diff + 04/04 Acute DVT pending IVC filter RIGHT LEG: Venous imaging reveals acute thrombus in the common to superficial femoral veins. LEFT LEG: Venous imaging reveals acute thrombus in the common to superficial femoral veins. SP IVC filter 04/06 Hypokalemia MRSA screen negative ANGELA on CKD CAD Bladder cancer HTN DM CVA Dyslipidemia CKD Anemia BPH Plan: continue vancomycin IV #14/(tentative end date 04/15) and Vancomycin PO #12/ will dc IV Flagyl #4 as patient now taking oral vancomycin -04/09 SP Cefepime #8 aspiration precaution, elevate HOB monitor temp and CBC needs 48hrs diarrhea free to discontinue isolation Thank you for this consult. [facility] will continue to follow the patient with you. Subjective Allergies: Coded Allergies: No Known Allergies (Unverified , 12/20/18) Subjective Afebrile No Leukocytosis Objective Vital Signs Last 24 Hour Vital Signs Date Time Temp Pulse Resp B/P (MAP) Pulse Ox O2 Delivery O2 Flow Rate FiO2 04/15/19 09:00 Room Air 04/15/19 08:00 97.4 78 20 148/54 (85) 96 04/15/19 05:40 129/71 04/15/19 04:00 98.4 102 21 123/64 (83) 96 04/15/19 00:00 97.4 94 21 115/60 (78) 97 04/14/19 21:52 153/73 04/14/19 21:52 87 153/73 04/14/19 21:00 Room Air 04/14/19 20:00 98.6 83 20 153/73 (99) 96 04/14/19 16:00 98.4 82 20 117/73 (88) 98 04/14/19 13:47 138/64 04/14/19 13:15 79 138/64 (88) 04/14/19 12:00 98.8 80 20 117/67 (84) 96 Height (Feet): 5 Height (Inches): 9.00 Weight (Pounds): 174 Objective Gen: NAD HEENT: NCAT, anicteric sclera CV: RRR Resp: RRR Abd: normoactive Bs+. Soft. No TTP Back: no flank pain Neuro: AAOx1 Current Medications Medications (Trade) Dose Ordered Sig/Sallie Route PRN Reason Start Time Stop Time Status Last Admin Dose Admin Acetaminophen (Tylenol) 650 mg Q4H PRN ORAL fever 04/06/19 14:00 05/01/19 13:59 Acetaminophen (Tylenol) 650 mg Q4H PRN ORAL Mild Pain/Temp > 100.5 04/13/19 16:15 05/13/19 16:14 Allopurinol (Allopurinol) 300 mg DAILY ORAL 04/07/19 09:00 05/03/19 09:59 04/13/19 08:40 Bacitracin (Bacitracin) 1 applic BID TOPIC 04/12/19 09:00 05/12/19 08:59 04/15/19 09:20 Carvedilol (Coreg) 12.5 mg EVERY 12 HOURS ORAL 04/06/19 21:00 05/01/19 08:59 04/14/19 21:52 Dextrose (Dextrose 50%) 25 ml Q30M PRN IV Hypoglycemia 04/06/19 14:00 05/01/19 10:29 Dextrose (Dextrose 50%) 50 ml Q30M PRN IV Hypoglycemia 04/06/19 14:00 05/01/19 10:29 Dextrose/ Electrolytes 1,000 ml @ 75 mls/hr [id number] IV 04/06/19 13:30 05/04/19 09:59 04/15/19 10:04 Dronabinol (Marinol) 2.5 mg BID ORAL 04/13/19 09:00 05/13/19 08:59 04/15/19 09:23 Heparin Sodium (Porcine) (Heparin 5000 units/ml) 5,000 units EVERY 12 HOURS SUBQ 04/06/19 21:00 05/01/19 08:59 04/14/19 21:53 Hydralazine HCl (Apresoline) 50 mg Q8HR ORAL 04/06/19 14:00 05/01/19 13:59 04/15/19 05:40 Insulin Aspart (NovoLOG) BEFORE MEALS AND HS SUBQ 04/06/19 16:30 05/01/19 11:29 04/15/19 05:46 Lorazepam (Ativan) 0.5 mg Q6H PRN ORAL For Anxiety 04/11/19 13:30 04/18/19 13:29 04/15/19 06:15 Memantine (Namenda) 5 mg BID ORAL 04/11/19 18:00 05/11/19 17:59 04/13/19 17:09 Metronidazole 100 ml @ 100 mls/hr Q6HR IVPB 04/15/19 12:00 04/22/19 11:59 Minoxidil (Loniten) 2.5 mg Q4H PRN ORAL bp over 165 syst 04/06/19 14:00 05/01/19 13:59 Ondansetron HCl (Zofran) 4 mg Q6H PRN IVP Nausea & Vomiting 04/06/19 14:00 05/01/19 07:59 04/13/19 20:19 Quetiapine Fumarate (SEROqueL) 50 mg TWICE A DAY ORAL 04/06/19 18:00 05/03/19 17:59 04/15/19 09:23 Risperidone (RisperDAL) 1 mg Q12HR ORAL 04/12/19 15:00 05/12/19 14:59 04/15/19 09:22 Tamsulosin HCl (Flomax) 0.4 mg BID ORAL 04/06/19 18:00 05/01/19 12:59 04/15/19 09:19 Vancomycin HCl (Firvanq) 125 mg FOUR TIMES A DAY ORAL 04/06/19 18:00 04/17/19 23:59 04/15/19 09:20 Vancomycin HCl (Vanco rx to dose) 1 ea DAILY PRN MISC Per rx protocol 04/07/19 09:00 05/01/19 08:14 Grayson Dunlap MD Apr 15, 2019 11:48
--- NOTE | 2019-04-15 12:00 | General Progress Note ---
Assessment/Plan Problem List: (1) Electrolyte imbalance ICD Codes: E87.8 - Other disorders of electrolyte and fluid balance, not elsewhere classified SNOMED: 800277029 (2) Dehydration ICD Codes: E86.0 - Dehydration SNOMED: 52506230 (3) Anemia ICD Codes: D64.9 - Anemia, unspecified SNOMED: 906479401 (4) CAD (coronary artery disease) ICD Codes: I25.10 - Atherosclerotic heart disease of [place] coronary artery without angina pectoris SNOMED: 99150460 (5) Diabetes ICD Codes: E11.9 - Type 2 diabetes mellitus without complications SNOMED: 12481918 (6) HTN (hypertension) ICD Codes: I10 - Essential (primary) hypertension SNOMED: 50306434 (7) Urinary tract infection ICD Codes: N39.0 - Urinary tract infection, site not specified SNOMED: 26236721 (8) Bladder cancer ICD Codes: C67.9 - Malignant neoplasm of bladder, unspecified SNOMED: 598304634 (9) Acute on chronic renal insufficiency ICD Codes: N28.9 - Disorder of kidney and ureter, unspecified; N18.9 - Chronic kidney disease, unspecified SNOMED: 677601224, 266438600 Status: stable, progressing Assessment/Plan: bladder cancer uti check h/h is still low anemia cri acidodic low k.replacement per renal Subjective ROS Limited/Unobtainable: Yes Allergies: Coded Allergies: No Known Allergies (Unverified , 12/20/18) Objective Last 24 Hour Vital Signs Date Time Temp Pulse Resp B/P (MAP) Pulse Ox O2 Delivery O2 Flow Rate FiO2 04/15/19 09:00 Room Air 04/15/19 08:00 97.4 78 20 148/54 (85) 96 04/15/19 05:40 129/71 04/15/19 04:00 98.4 102 21 123/64 (83) 96 04/15/19 00:00 97.4 94 21 115/60 (78) 97 04/14/19 21:52 153/73 04/14/19 21:52 87 153/73 04/14/19 21:00 Room Air 04/14/19 20:00 98.6 83 20 153/73 (99) 96 04/14/19 16:00 98.4 82 20 117/73 (88) 98 04/14/19 13:47 138/64 04/14/19 13:15 79 138/64 (88) 04/14/19 12:00 98.8 80 20 117/67 (84) 96 Intake and Output 04/14/19 04/15/19 19:00 07:00 Intake Total 75 ml Output Total 600 ml 600 ml Balance -600 ml -525 ml Intake Oral 75 ml Output Urine Total 500 ml 500 ml Stool Total 100 ml 100 ml # Voids 1 # Bowel Movements 1 Height (Feet): 5 Height (Inches): 9.00 Weight (Pounds): 174 General Appearance: confused Respiratory/Chest: lungs clear Subhash Corona MD Apr 15, 2019 12:00
--- NOTE | 2019-04-15 12:32 | General Progress Note ---
Assessment/Plan Assessment/Plan: (1) Bladder cancer s/p resection (2) H/O CVA (3) Sacral decubitus ulcer Patient to be continued on Tylenol. D/w Dr. Ruelas and he concurred. Subjective Date patient seen: Apr 15, 2019 Time patient seen: 12:30 - pm Allergies: Coded Allergies: No Known Allergies (Unverified , 12/20/18) Subjective Constitutional: Reports: no symptoms HEENT: Reports: no symptoms Cardiovascular: Reports: no symptoms Respiratory: Reports: no symptoms Gastrointestinal/Abdominal: Reports: no symptoms Genitourinary: Reports: hematuria Neurologic/Psychiatric: Reports: weakness Endocrine: Reports: no symptoms Hematologic/Lymphatic: Reports: no symptoms Subjective Patient is known patient from previous hospital admission Now admitted under the care of Dr. Gray due to oxygen saturation issues. Found to be bed bound with sacral decubitus ulcer needing wound care which nurse reported caused pain was started on Tylenol 650mg PO 1 tab Q4H PrN pain which patient has not requested. He denies pain at this time. Objective Last 24 Hour Vital Signs Date Time Temp Pulse Resp B/P (MAP) Pulse Ox O2 Delivery O2 Flow Rate FiO2 04/15/19 12:00 97.9 79 20 144/69 (94) 97 04/15/19 09:00 Room Air 04/15/19 08:00 97.4 78 20 148/54 (85) 96 04/15/19 05:40 129/71 04/15/19 04:00 98.4 102 21 123/64 (83) 96 04/15/19 00:00 97.4 94 21 115/60 (78) 97 04/14/19 21:52 153/73 04/14/19 21:52 87 153/73 04/14/19 21:00 Room Air 04/14/19 20:00 98.6 83 20 153/73 (99) 96 04/14/19 16:00 98.4 82 20 117/73 (88) 98 04/14/19 13:47 138/64 04/14/19 13:15 79 138/64 (88) Intake and Output 04/14/19 04/15/19 19:00 07:00 Intake Total 75 ml Output Total 600 ml 600 ml Balance -600 ml -525 ml Intake Oral 75 ml Output Urine Total 500 ml 500 ml Stool Total 100 ml 100 ml # Voids 1 # Bowel Movements 1 Height (Feet): 5 Height (Inches): 9.00 Weight (Pounds): 174 Objective General Appearance: no apparent distress, alert EENT: PERRL/EOMI, normal ENT inspection Neck: non-tender, normal alignment Cardiovascular: normal rate, regular rhythm Respiratory/Chest: decreased breath sounds Abdomen: other - obese Edema: trace edema Neurologic: alert, oriented x 3 Skin: warm/dry Jewel Frank Apr 15, 2019 12:32
--- NOTE | 2019-04-15 12:40 | Hematology/Onc Progress Note ---
Assessment/Plan Assessment/Plan Assessment and Recs: # ACUTE DEEP VEIN THROMBOSIS BILATERAL, new onset, from 04/02/19 s/p IVC filter on 05/06/[address] Arroyo --> reviewed images with radiology, goes from common to proximal common femoral v ein --> V/Q scan --> shows low prob pe --> given low h/h and low plts, recommend ivc filter placement, consent has been signed --> cleared with other consultants, zen RN --> s/p IVC filter by Dr Arroyo 04/06 --> hold off on anticoagulation until h/h other counts stabilize # Bladder cancer requires resection v chemo/xrt -- presented with multi masses CT shows Scattered eccentric mural thickening/masses in the urinary bladder wall , correlating with findings on recent ultrasound. No significant perivesical stranding. Recommend further evaluation with cystoscopy. --> urology consulted, appreciate input --> Uro note from prior admission: Tolerated bladder tumor resection well. Unfortunately greater part of the bladder is involved and essentially replaced all normal bladder with tumor. I can not resect all the tumors. --> may consider chemo/radiation as outpatient --> path does confirm malignancy --> CBI as needed per uro # Pancytopenia - potential causes multifactorial, evaluate liver and viral etiologies to begin, also could be related to underlying medications patient has received. --> Hep panel and HIV --> NEGATIVE --> US abd showed bladder masses--> ct reviewed as well --> Peripheral smear ordered to evaluate for blasts /schistocytes --> none noted --> abx and other meds have been reviewed --> ok for ppx if plt >50k w/ either heparin or lovenox --> trend plt >92-->104-->86-->73-->117k --> wbc trend 3.7-->4.1 # Anemia of iron deficiency likely due to hematuria --> iv iron x 5 days low ferritin, completed from prior admission --> likely due to hematuria --> have started on ivf and consider uro prn cysto --> hgb goal >7 --> cont po folic acid --> hgb trend: 7.4-->8.4 --> as per gi at some point may need egd/colo # Acute renal injury --> cr >1.4-->1.4-->1.7-->1.5-->3.7->1.8 --> per renal recs --> volume expansion # HTN --> cards is following, appreciate recs # C. diff colitis --> on po vanc/flagyl --> per id # Hematuria --> improved # UTI (urinary tract infection) --> per id on abx, cefe/vanc # Scrotal lesions --> per surg eval --> as per wound care # Dehydration # Dvt ppx heparin sq and ivf filter The timing of this note does not necessarily reflect the time of the patient was seen. GREATLY APPRECIATE CONSULTATION. Subjective Allergies: Coded Allergies: No Known Allergies (Unverified , 12/20/18) All Systems: reviewed and negative except above Subjective 04/03: s/p 1 bag iv iron, hgb 7.4, repeat cbc tomorrow, consent for ivc filter has been signed 04/04: is pending clearance of blood cultures, have dw id, potentially thurs for ivcf placement 04/05: no events, still pending ivc filter, have dw rn and id 04/06: no events, no bleeding, pending filter, as per id clearance 04/08: tolerated ivc filter well on 04/06, no events, no bleeding reported 04/09: no events, remains confused is on 2l nc, dw rn 04/10: no events, with lesion noted on penile shaft, no bleeding noted 04/11: no events, tolerated only half of vanc, plt 101, ok to give heparin sq 04/12: on ensure, no bleeding, labs noted, wbc lower, no major changes 04/13: remains confused, labs noted from yesterday, on abx 04/14: no major changes, therahoney dressing changes, no bleeding, labs reviewed 04/15: awake and alert, no acute events, on room air, cbc ordered Objective Objective Current Medications Medications (Trade) Dose Ordered Sig/Sallie Route PRN Reason Start Time Stop Time Status Last Admin Dose Admin Acetaminophen (Tylenol) 650 mg Q4H PRN ORAL fever 04/06/19 14:00 05/01/19 13:59 Acetaminophen (Tylenol) 650 mg Q4H PRN ORAL Mild Pain/Temp > 100.5 04/13/19 16:15 05/13/19 16:14 Allopurinol (Allopurinol) 300 mg DAILY ORAL 04/07/19 09:00 05/03/19 09:59 04/13/19 08:40 Bacitracin (Bacitracin) 1 applic BID TOPIC 04/12/19 09:00 05/12/19 08:59 04/15/19 09:20 Carvedilol (Coreg) 12.5 mg EVERY 12 HOURS ORAL 04/06/19 21:00 05/01/19 08:59 04/14/19 21:52 Dextrose (Dextrose 50%) 25 ml Q30M PRN IV Hypoglycemia 04/06/19 14:00 05/01/19 10:29 Dextrose (Dextrose 50%) 50 ml Q30M PRN IV Hypoglycemia 04/06/19 14:00 05/01/19 10:29 Dextrose/ Electrolytes 1,000 ml @ 75 mls/hr [id number] IV 04/06/19 13:30 05/04/19 09:59 04/15/19 10:04 Dronabinol (Marinol) 2.5 mg BID ORAL 04/13/19 09:00 05/13/19 08:59 04/15/19 09:23 Heparin Sodium (Porcine) (Heparin 5000 units/ml) 5,000 units EVERY 12 HOURS SUBQ 04/06/19 21:00 05/01/19 08:59 04/14/19 21:53 Hydralazine HCl (Apresoline) 50 mg Q8HR ORAL 04/06/19 14:00 05/01/19 13:59 04/15/19 05:40 Insulin Aspart (NovoLOG) BEFORE MEALS AND HS SUBQ 04/06/19 16:30 05/01/19 11:29 04/15/19 12:04 Lorazepam (Ativan) 0.5 mg Q6H PRN ORAL For Anxiety 04/11/19 13:30 04/18/19 13:29 04/15/19 06:15 Memantine (Namenda) 5 mg BID ORAL 04/11/19 18:00 05/11/19 17:59 04/13/19 17:09 Metronidazole 100 ml @ 100 mls/hr Q6HR IVPB 04/15/19 12:00 04/22/19 11:59 04/15/19 11:45 Minoxidil (Loniten) 2.5 mg Q4H PRN ORAL bp over 165 syst 04/06/19 14:00 05/01/19 13:59 Ondansetron HCl (Zofran) 4 mg Q6H PRN IVP Nausea & Vomiting 04/06/19 14:00 05/01/19 07:59 04/13/19 20:19 Quetiapine Fumarate (SEROqueL) 50 mg TWICE A DAY ORAL 04/06/19 18:00 05/03/19 17:59 04/15/19 09:23 Risperidone (RisperDAL) 1 mg Q12HR ORAL 04/12/19 15:00 05/12/19 14:59 04/15/19 09:22 Tamsulosin HCl (Flomax) 0.4 mg BID ORAL 04/06/19 18:00 05/01/19 12:59 04/15/19 09:19 Vancomycin HCl (Firvanq) 125 mg FOUR TIMES A DAY ORAL 04/06/19 18:00 04/17/19 23:59 04/15/19 09:20 Vancomycin HCl (Vanco rx to dose) 1 ea DAILY PRN MISC Per rx protocol 04/07/19 09:00 04/15/19 23:00 Last 24 Hour Vital Signs Date Time Temp Pulse Resp B/P (MAP) Pulse Ox O2 Delivery O2 Flow Rate FiO2 04/15/19 12:00 97.9 79 20 144/69 (94) 97 04/15/19 09:00 Room Air 04/15/19 08:00 97.4 78 20 148/54 (85) 96 04/15/19 05:40 129/71 04/15/19 04:00 98.4 102 21 123/64 (83) 96 04/15/19 00:00 97.4 94 21 115/60 (78) 97 04/14/19 21:52 153/73 04/14/19 21:52 87 153/73 04/14/19 21:00 Room Air 04/14/19 20:00 98.6 83 20 153/73 (99) 96 04/14/19 16:00 98.4 82 20 117/73 (88) 98 04/14/19 13:47 138/64 04/14/19 13:15 79 138/64 (88) 11/30/19 12:00 98.8 80 20 117/67 (84) 96 04/14/19 09:00 Room Air 04/14/19 08:00 98.2 73 20 139/64 (89) 95 04/14/19 06:48 142/63 04/14/19 04:00 97.8 82 20 140/68 (92) 99 04/14/19 00:00 97.9 74 20 139/61 (87) 98 04/13/19 21:27 152/66 04/13/19 21:00 Room Air 04/13/19 20:19 81 139/63 04/13/19 20:00 96.3 81 22 139/63 (88) 97 04/13/19 16:00 98.9 70 18 154/67 (96) 99 04/13/19 14:00 152/77 Intake and Output 04/14/19 04/15/19 19:00 07:00 Intake Total 75 ml Output Total 600 ml 600 ml Balance -600 ml -525 ml Intake Oral 75 ml Output Urine Total 500 ml 500 ml Stool Total 100 ml 100 ml # Voids 1 # Bowel Movements 1 Height (Feet): 5 Height (Inches): 9.00 Weight (Pounds): 174 Objective Physical Exam Vital Signs: have been reviewed General Appearance: non-toxic, obese, Chronically Ill Respiratory: chest non-tender, lungs clear, mirian BSs, no rhonchi Cardiovascular: normal inspection, regular rate, rhythm, GI: normal inspection, soft Genitourinary: MANZANO+ Musculoskeletal: normal inspection Neurologic: normal inspection, alert Psychiatric: normal inspection Skin: other - balanitis Marcelo Mcallister MD Apr 15, 2019 12:40
--- NOTE | 2019-04-15 13:38 | Surgery Progress Note ---
Surgery Progress Note Subjective Additional Comments stable no acute events Objective Last 24 Hour Vital Signs Date Time Temp Pulse Resp B/P (MAP) Pulse Ox O2 Delivery O2 Flow Rate FiO2 04/15/19 13:21 127/55 04/15/19 13:15 77 127/55 (79) 04/15/19 12:00 97.9 79 20 144/69 (94) 97 04/15/19 09:00 Room Air 04/15/19 08:00 97.4 78 20 148/54 (85) 96 04/15/19 05:40 129/71 04/15/19 04:00 98.4 102 21 123/64 (83) 96 04/15/19 00:00 97.4 94 21 115/60 (78) 97 04/14/19 21:52 153/73 04/14/19 21:52 87 153/73 04/14/19 21:00 Room Air 04/14/19 20:00 98.6 83 20 153/73 (99) 96 04/14/19 16:00 98.4 82 20 117/73 (88) 98 04/14/19 13:47 138/64 I&O Intake and Output 04/14/19 04/15/19 19:00 07:00 Intake Total 75 ml Output Total 600 ml 600 ml Balance -600 ml -525 ml Intake Oral 75 ml Output Urine Total 500 ml 500 ml Stool Total 100 ml 100 ml # Voids 1 # Bowel Movements 1 Dressing: saturated Wound: other Drains: other Cardiovascular: RSR Respiratory: decreased breath sounds Abdomen: soft, present bowel sounds Extremities: no cyanosis, other Plan Problems: (1) Scrotal lesion Assessment & Plan: This is a 83-year-old male with multiple medical morbidities who was identified to have abnormal scrotal lesions on admission. There are 3 lesions on the scrotum clearly identified and likely old small abscesses or carbuncles which have healed slowly. Patient is incontinent With leakage of stool identified around the scrotal sac on the posterior aspect where the lesions are located. No signs of active infection no active drainage nontender skin macerated Recommend washing the scrotum daily with normal saline. Apply skin protectant and moisture absorbent dressing daily and as needed saturation Physical examination was identified to have a draining pustule in the left shaft base of the penis. There is an opening less than a centimeter with drainage of some mild seropurulent fluid and some slough. Wound irrigated cleansed and some non-excisional debridement with gauze was performed. There is significant edema in the area no cellulitis skin otherwise intact. Fair amount of moisture in the area. Will continue with local care We will follow and monitor for healing (2) Sacral decubitus ulcer, stage III Assessment & Plan: Pt presented on admission with multiple pressure injuries. Full thickness sacral pressure injury. Base of wound is viable with an area that is purple in center. Semi-detached black borders(L)9.5cm x (W)4.9cm x(D) 0.2cm .Non-blanching erythema periwound. Multiple pressure injuries Scrotum. Base of pressure injury R scrotum 75% pink granulation,25% slough. Edges pink,flat and adherent to base of wound.(L)2.2cm x (W)0.9cm.Ful thickness pressure injury center -base of scrotum (L)0.5cm x (W) 0.4cm. Base of wound has 100% slough. Full thickness pressure injury L scrotum ( L)2cm x (W01.1cm. Base of wound has 90% slough ,10% viable. Reabsorbing blood blister R heel heel. Base of wound black (L)2.2cm x (W)2cm with red tinged borders with fluctuance. (L)5.5cm x(W)5cm. Reabsorbing Blood Blister L heel. Base of wound is black ,dry with maroon and fluctuant borders.(L)6.5cm x (W)6cm Abd folds are moist and dark but is intact. Penile wound identified. Now open from edema. Slough noted. Slough wiped and cleaned. Non-excisional debridement performed. Wound stable. No longer draining. Tx.Plan: Cleanse Sacral wound with Saline. Apply Therahoney. Apply Moisture Barrier Paste periwound. Cover with Optifoam drsg Daily and prn. Cleanse wounds on Scrotum with saline. Apply Therhaoney to each wound. Cover with Optifoam drsg. Change Daily and prn. Bacitracin to penile wound. Apply Moisture Barrier to Abd folds and Bilat groin Daily and prn. APM/NOLBERTO Mattress overlay. Reposition at least every 2hours or as tolerated. Off-load heels with pillow. (3) Bladder cancer (4) C. difficile colitis Assessment & Plan: blood cultures negative C diff positive - discussed with ID cont abx labs noted and improved exam stable cont current tx Bebeto Pepe Apr 15, 2019 13:38
--- NOTE | 2019-04-15 15:40 | NUR ---
NURSE NOTES: Dressings on bilat heels, sacral, penis area all changed. Pt tolerated.
[2019-04-15] MEDS ORDERED: Heparin1,000 units/500ml Premix(Conc:2 units/ml) IV PRN (15:45)
[2019-04-15] MEDS ORDERED: Lidocaine 1% Plain 30 ml INJ PRN (15:45)
--- NOTE | 2019-04-15 15:45 | NUR ---
CHARGE NURSE NOTE: Pt's penis is getting more swollen. and notified. Pt IV is infiltrated. Both arms swollen. Pt confused, refused to insert IV line, fighting. wants to place PICC line. No family on the case. will write in his notes the reason why pt needs a PICC line. (covering ) notified too.
--- NOTE | 2019-04-15 16:45 | Progress Note ---
DATE: 04/15/2019 SUBJECTIVE: This is an 83-year-old male with low oxygen saturation. He has lot of psychomotor agitation, irritability, confusion, disorganized thought process, and decline in cognition below his baseline. That is why, his attending has requested daily consultation. MENTAL STATUS EXAMINATION: This is an 83-year-old male. Appearance is disheveled. Attitude, irritable and agitated. Affect, guarded and restricted. Intellect, poor. Mood, depressed and anxious. Motor activity, psychomotor agitation. Attention span is poor. Orientation x2. Speech is pressured. Thought process, disorganized and illogical. Insight and judgment is poor. DIAGNOSIS: Paranoid schizophrenia with acute exacerbation. PLANS: Continue titrating the patient's medication to stabilize his mood. Provided him with 20 minutes of cognitive behavioral therapy to help him identify his automatic negative thoughts and help him convert his negative thoughts to more positive thoughts to reduce depression, anxiety, and mood lability. Chart reviewed and discussed with staff. Seen and assessed in his room. Ami Hennessy M.D. DR: Vinod JOB#: [id number] CC:
--- NOTE | 2019-04-15 19:24 | NUR ---
HAND-OFF: Report given to MATT Manriquez.
--- NOTE | 2019-04-15 19:25 | NUR ---
NURSE NOTES: Pt received in bed shouting, no signs of distress, no IV access, will encourage pt to eat and drink, rectal tube in place and richardson catheter in place, head of bed elevated, will continue to monitor.
[2019-04-16] VITALS (7 sets, daily range): BP systolic 118–142; BP diastolic 51–80
[2019-04-16] MEDS: D5W w/KCl 20mEq 1,000 ML IV SCH ×3 (00:10→15:50)
[2019-04-16] MEDS: HydrALAZINE 50mg tab ORAL SCH ×3 (06:02→21:55)
--- NOTE | 2019-04-16 06:22 | Hematology/Onc Progress Note ---
Assessment/Plan Assessment/Plan Assessment and Recs: # ACUTE DEEP VEIN THROMBOSIS BILATERAL, new onset, from 04/02/19 s/p IVC filter on 05/06/[address] Arroyo --> reviewed images with radiology, goes from common to proximal common femoral v ein --> V/Q scan --> shows low prob pe --> given low h/h and low plts, recommend ivc filter placement, consent has been signed --> cleared with other consultants, zen RN --> s/p IVC filter by Dr Arroyo 04/06 --> hold off on anticoagulation until h/h other counts stabilize # Bladder cancer requires resection v chemo/xrt -- presented with multi masses CT shows Scattered eccentric mural thickening/masses in the urinary bladder wall , correlating with findings on recent ultrasound. No significant perivesical stranding. Recommend further evaluation with cystoscopy. --> urology consulted, appreciate input --> Uro note from prior admission: Tolerated bladder tumor resection well. Unfortunately greater part of the bladder is involved and essentially replaced all normal bladder with tumor. I can not resect all the tumors. --> may consider chemo/radiation as outpatient --> path does confirm malignancy --> CBI as needed per uro # Pancytopenia - potential causes multifactorial, evaluate liver and viral etiologies to begin, also could be related to underlying medications patient has received. --> Hep panel and HIV --> NEGATIVE --> US abd showed bladder masses--> ct reviewed as well --> Peripheral smear ordered to evaluate for blasts /schistocytes --> none noted --> abx and other meds have been reviewed --> ok for ppx if plt >50k w/ either heparin or lovenox --> trend plt >92-->104-->86-->73-->117k --> wbc trend 3.7-->4.1 # Anemia of iron deficiency likely due to hematuria --> iv iron x 5 days low ferritin, completed from prior admission --> likely due to hematuria --> have started on ivf and consider uro prn cysto --> hgb goal >7 --> cont po folic acid --> hgb trend: 7.4-->8.4 --> as per gi at some point may need egd/colo # Acute renal injury --> cr >1.4-->1.4-->1.7-->1.5-->3.7->1.8 --> per renal recs --> volume expansion # HTN --> cards is following, appreciate recs # C. diff colitis --> on po vanc/flagyl --> per id # Hematuria --> improved # UTI (urinary tract infection) --> per id on abx, cefe/vanc # Scrotal lesions --> per surg eval --> as per wound care # Dehydration # Dvt ppx heparin sq and ivf filter The timing of this note does not necessarily reflect the time of the patient was seen. GREATLY APPRECIATE CONSULTATION. Subjective Constitutional: Denies: no symptoms, chills, fever, malaise, weakness, other HEENT: Denies: no symptoms, eye pain, blurred vision, tearing, double vision, ear pain, ear discharge, nose pain, nose congestion, throat pain, throat swelling, mouth pain, mouth swelling, other Cardiovascular: Denies: no symptoms, chest pain, edema, irregular heart rate, lightheadedness, palpitations, syncope, other Gastrointestinal/Abdominal: Denies: no symptoms, abdomen distended, abdominal pain, black stools, tarry stools, blood in stool, constipated, diarrhea, difficulty swallowing, nausea, poor appetite, poor fluid intake, rectal bleeding , vomiting, other Genitourinary: Denies: no symptoms, burning, discharge, frequency, flank pain, hematuria, incontinence, pain, urgency, other Neurologic/Psychiatric: Denies: no symptoms, anxiety, depressed, emotional problems, headache, numbness, paresthesia, pre-existing deficit, seizure, tingling, tremors, weakness, other Endocrine: Denies: no symptoms, excessive sweating, flushing, intolerance to cold, intolerance to heat, increased hunger, increased thirst, increased urine, unexplained weight gain, unexplained weight loss, other Allergies: Coded Allergies: No Known Allergies (Unverified , 12/20/18) Subjective 04/03: s/p 1 bag iv iron, hgb 7.4, repeat cbc tomorrow, consent for ivc filter has been signed 04/04: is pending clearance of blood cultures, have dw id, potentially thurs for ivcf placement 04/05: no events, still pending ivc filter, have dw rn and id 04/06: no events, no bleeding, pending filter, as per id clearance 04/08: tolerated ivc filter well on 04/06, no events, no bleeding reported 04/09: no events, remains confused is on 2l nc, zen rn 04/10: no events, with lesion noted on penile shaft, no bleeding noted 04/11: no events, tolerated only half of vanc, plt 101, ok to give heparin sq 04/12: on ensure, no bleeding, labs noted, wbc lower, no major changes 04/13: remains confused, labs noted from yesterday, on abx 04/14: no major changes, therahoney dressing changes, no bleeding, labs reviewed 04/15: awake and alert, no acute events, on room air, cbc ordered .: no f/c, no major changes, labs reviewed, ++rt and +richardson Objective Objective Current Medications Medications (Trade) Dose Ordered Sig/Sallie Route PRN Reason Start Time Stop Time Status Last Admin Dose Admin Acetaminophen (Tylenol) 650 mg Q4H PRN ORAL fever 04/06/19 14:00 05/01/19 13:59 Acetaminophen (Tylenol) 650 mg Q4H PRN ORAL Mild Pain/Temp > 100.5 04/13/19 16:15 05/13/19 16:14 Allopurinol (Allopurinol) 300 mg DAILY ORAL 04/07/19 09:00 05/03/19 09:59 04/13/19 08:40 Bacitracin (Bacitracin) 1 applic BID TOPIC 04/12/19 09:00 05/12/19 08:59 04/15/19 18:14 Carvedilol (Coreg) 12.5 mg EVERY 12 HOURS ORAL 04/06/19 21:00 05/01/19 08:59 04/15/19 21:52 Chlorhexidine Gluconate (Abril-Hex 2%) 1 applic DAILY@1999 TOPIC 04/16/19 20:00 05/16/19 19:59 Dextrose (Dextrose 50%) 25 ml Q30M PRN IV Hypoglycemia 04/06/19 14:00 05/01/19 10:29 Dextrose (Dextrose 50%) 50 ml Q30M PRN IV Hypoglycemia 04/06/19 14:00 05/01/19 10:29 Dextrose/ Electrolytes 1,000 ml @ 75 mls/hr [id number] IV 04/06/19 13:30 05/04/19 09:59 04/15/19 10:04 Dronabinol (Marinol) 2.5 mg BID ORAL 04/13/19 09:00 05/13/19 08:59 04/15/19 09:23 Heparin Sodium (Porcine) (Heparin 5000 units/ml) 5,000 units EVERY 12 HOURS SUBQ 04/06/19 21:00 05/01/19 08:59 04/15/19 21:51 Heparin Sodium/ Sodium Chloride (Heparin 1000 units/500ml Premix) 1,000 unit ONCE PRN IV PICC LINE INSERTION 04/15/19 15:45 04/17/19 15:44 Hydralazine HCl (Apresoline) 50 mg Q8HR ORAL 04/06/19 14:00 05/01/19 13:59 04/16/19 06:02 Insulin Aspart (NovoLOG) BEFORE MEALS AND HS SUBQ 04/06/19 16:30 05/01/19 11:29 04/15/19 21:46 Lidocaine HCl (Xylocaine 1% 30ml) 30 ml ONCE PRN INJ PICC LINE 04/15/19 15:45 04/17/19 15:44 Lorazepam (Ativan) 0.5 mg Q6H PRN ORAL For Anxiety 04/11/19 13:30 04/18/19 13:29 04/15/19 06:15 Memantine (Namenda) 5 mg BID ORAL 04/11/19 18:00 05/11/19 17:59 04/13/19 17:09 Metronidazole 100 ml @ 100 mls/hr Q6HR IVPB 04/15/19 12:00 04/22/19 11:59 04/15/19 11:45 Minoxidil (Loniten) 2.5 mg Q4H PRN ORAL bp over 165 syst 04/06/19 14:00 05/01/19 13:59 Ondansetron HCl (Zofran) 4 mg Q6H PRN IVP Nausea & Vomiting 04/06/19 14:00 05/01/19 07:59 04/13/19 20:19 Quetiapine Fumarate (SEROqueL) 50 mg TWICE A DAY ORAL 04/06/19 18:00 05/03/19 17:59 04/15/19 09:23 Risperidone (RisperDAL) 1 mg Q12HR ORAL 04/12/19 15:00 05/12/19 14:59 04/15/19 21:45 Tamsulosin HCl (Flomax) 0.4 mg BID ORAL 04/06/19 18:00 05/01/19 12:59 04/15/19 09:19 Vancomycin HCl (Firvanq) 125 mg FOUR TIMES A DAY ORAL 04/06/19 18:00 04/17/19 23:59 04/15/19 21:45 Last 24 Hour Vital Signs Date Time Temp Pulse Resp B/P (MAP) Pulse Ox O2 Delivery O2 Flow Rate FiO2 04/16/19 06:02 159/75 04/16/19 04:00 98.4 72 20 142/80 (100) 99 04/16/19 00:00 98.1 73 18 132/51 (78) 97 04/15/19 21:52 74 176/76 04/15/19 21:51 174/76 04/15/19 21:00 Room Air 04/15/19 20:00 98.2 80 20 149/69 (95) 97 04/15/19 19:58 97 Room Air 21 04/15/19 17:15 79 141/64 (89) 04/15/19 16:00 98.1 86 20 154/63 (93) 98 04/15/19 13:21 127/55 04/15/19 13:15 77 127/55 (79) 04/15/19 12:00 97.9 79 20 144/69 (94) 97 04/15/19 09:00 Room Air 04/15/19 08:00 97.4 78 20 148/54 (85) 96 04/15/19 05:40 129/71 04/15/19 04:00 98.4 102 21 123/64 (83) 96 04/15/19 00:00 97.4 94 21 115/60 (78) 97 04/14/19 21:52 153/73 04/14/19 21:52 87 153/73 04/14/19 21:00 Room Air 04/14/19 20:00 98.6 83 20 153/73 (99) 96 04/14/19 16:00 98.4 82 20 117/73 (88) 98 04/14/19 13:47 138/64 04/14/19 13:15 79 138/64 (88) 04/14/19 12:00 98.8 80 20 117/67 (84) 96 04/14/19 09:00 Room Air 04/14/19 08:00 98.2 73 20 139/64 (89) 95 04/14/19 06:48 142/63 Intake and Output 04/15/19 04/16/19 18:59 06:59 Intake Total 0 ml Output Total 200 ml 900 ml Balance -200 ml -900 ml Intake Oral 0 ml Output Urine Total 200 ml 700 ml Stool Total 200 ml Height (Feet): 5 Height (Inches): 9.00 Weight (Pounds): 174 Objective Physical Exam Vital Signs: have been reviewed General Appearance: non-toxic, obese, Chronically Ill Respiratory: chest non-tender, lungs clear, mirian BSs, no rhonchi Cardiovascular: normal inspection, regular rate, rhythm, GI: normal inspection, soft Genitourinary: RICHARDSON+ Musculoskeletal: normal inspection Neurologic: normal inspection, alert Psychiatric: normal inspection Skin: other - Marcelo Shen MD Apr 16, 2019 06:22
[2019-04-16] MEDS: NovoLOG Insulin Flexpen SUBQ SCH ×4 (06:23→20:32)
--- NOTE | 2019-04-16 06:23 | NUR ---
NURSE NOTES: Pt blood sugar 139. pt not eating, did not eat dinner, held insulin
--- NOTE | 2019-04-16 07:21 | NUR ---
HAND-OFF: Report given to MATT Prasad.
[2019-04-16 07:28] LABS: EOSINOPHILS % (AUTO) 0.3 % (0.0-3.0); HEMATOCRIT 30.7 % (42.0-52.0); HEMOGLOBIN 9.6 G/DL (14.2-18.0); LYMPHOCYTES % (AUTO) 12.3 % (20.0-45.0); MEAN CORPUSCULAR VOLUME 91 FL (80-99); MONOCYTES % (AUTO) 10.3 % (1.0-10.0); NEUTROPHILS % (AUTO) 76.1 % (45.0-75.0); PLATELET COUNT 128 K/UL (150-450); RED BLOOD COUNT 3.36 M/UL (4.70-6.10); WHITE BLOOD COUNT 5.5 K/UL (4.8-10.8)
--- NOTE | 2019-04-16 07:30 | NUR ---
NURSE NOTES: Received pt from MATT VICK. pt is awake A&O X2. pt has no iv access, Dr SANTIAGO notified. pt has Oconnor cath in place is running well. No complain of pain at this moment. a SOUND ART INSTRUCTOR is feeding pt. all needs attended, bed is locked and is in the lowest position, call light within easy reach. will continue to monitor.
--- NOTE | 2019-04-16 07:30 | NUR ---
NURSE NOTES: Pt with one episode of vomiting, brown color, last night and no other episodes since. Left message for Dr. Bhandari.
[2019-04-16 08:12] LABS: ANION GAP 12 mmol/L (5-15); BLOOD UREA NITROGEN 18 mg/dL (7-18); CALCIUM 7.6 MG/DL (8.5-10.1); CARBON DIOXIDE 16 MMOL/L (21-32); CHLORIDE 107 MMOL/L (98-107); POTASSIUM 4.6 MMOL/L (3.5-5.1); SODIUM 135 MMOL/L (136-145)
--- NOTE | 2019-04-16 08:49 | General Progress Note ---
Assessment/Plan Assessment/Plan: (1) Bladder cancer s/p resection (2) H/O CVA (3) Sacral decubitus ulcer Patient to be continued on Tylenol. D/w Dr. Ruelas and he concurred. Subjective Date patient seen: Apr 16, 2019 Time patient seen: 08:15 - am Allergies: Coded Allergies: No Known Allergies (Unverified , 12/20/18) Subjective Constitutional: Reports: no symptoms HEENT: Reports: no symptoms Cardiovascular: Reports: no symptoms Respiratory: Reports: no symptoms Gastrointestinal/Abdominal: Reports: no symptoms Genitourinary: Reports: no symptoms Neurologic/Psychiatric: Reports: weakness Endocrine: Reports: no symptoms Hematologic/Lymphatic: Reports: no symptoms Subjective Patient denies pain at this time. No new complaints. Objective Last 24 Hour Vital Signs Date Time Temp Pulse Resp B/P (MAP) Pulse Ox O2 Delivery O2 Flow Rate FiO2 04/16/19 08:00 98.0 78 18 138/58 (84) 99 04/16/19 06:02 159/75 04/16/19 04:00 98.4 72 20 142/80 (100) 99 04/16/19 00:00 98.1 73 18 132/51 (78) 97 04/15/19 21:52 74 176/76 04/15/19 21:51 174/76 04/15/19 21:00 Room Air 04/15/19 20:00 98.2 80 20 149/69 (95) 97 04/15/19 19:58 97 Room Air 21 04/15/19 17:15 79 141/64 (89) 04/15/19 16:00 98.1 86 20 154/63 (93) 98 04/15/19 13:21 127/55 04/15/19 13:15 77 127/55 (79) 04/15/19 12:00 97.9 79 20 144/69 (94) 97 04/15/19 09:00 Room Air Intake and Output 04/15/19 04/16/19 18:59 06:59 Intake Total 0 ml Output Total 200 ml 900 ml Balance -200 ml -900 ml Intake Oral 0 ml Output Urine Total 200 ml 700 ml Stool Total 200 ml Laboratory Tests 04/16/19 06:55: White Blood Count 5.5, Red Blood Count 3.36L, Hemoglobin 9.6L, Hematocrit 30.7L , Mean Corpuscular Volume 91, Mean Corpuscular Hemoglobin 28.6, Mean Corpuscular Hemoglobin Concent 31.4L, Red Cell Distribution Width 18.0H, Platelet Count 128L, Mean Platelet Volume 7.6, Neutrophils (%) (Auto) 76.1H, Lymphocytes (%) (Auto) 12.3L, Monocytes (%) (Auto) 10.3H, Eosinophils (%) (Auto ) 0.3, Basophils (%) (Auto) 1.0, Sodium Level 135L, Potassium Level 4.6, Chloride Level 107, Carbon Dioxide Level 16L, Anion Gap 12, Blood Urea Nitrogen 18, Creatinine 2.0H, Estimat Glomerular Filtration Rate , Glucose Level 142H, Calcium Level 7.6L Height (Feet): 5 Height (Inches): 9.00 Weight (Pounds): 174 Objective General Appearance: no apparent distress, alert EENT: PERRL/EOMI, normal ENT inspection Neck: non-tender, normal alignment Cardiovascular: normal rate, regular rhythm Respiratory/Chest: decreased breath sounds Abdomen: other - obese Edema: trace edema Neurologic: alert, oriented x 3 Skin: warm/dry Jewel Frank Apr 16, 2019 08:49
--- NOTE | 2019-04-16 09:12 | General Progress Note ---
Assessment/Plan Problem List: (1) Invasive carcinoma of urinary bladder ICD Codes: C67.9 - Malignant neoplasm of bladder, unspecified SNOMED: 506770038 (2) Anemia ICD Codes: D64.9 - Anemia, unspecified SNOMED: 289771226 (3) Diabetes ICD Codes: E11.9 - Type 2 diabetes mellitus without complications SNOMED: 27012896 (4) HTN (hypertension) ICD Codes: I10 - Essential (primary) hypertension SNOMED: 19302194 (5) Urinary tract infection ICD Codes: N39.0 - Urinary tract infection, site not specified SNOMED: 00673253 (6) Bladder cancer ICD Codes: C67.9 - Malignant neoplasm of bladder, unspecified SNOMED: 667254390 Status: stable, progressing Assessment/Plan: pt diet eval 02 pulm tx abx uro f/u cbc bmp am aru eval Subjective Constitutional: Reports: weakness Allergies: Coded Allergies: No Known Allergies (Unverified , 12/20/18) All Systems: reviewed and negative except above Subjective sleepy calm Objective Last 24 Hour Vital Signs Date Time Temp Pulse Resp B/P (MAP) Pulse Ox O2 Delivery O2 Flow Rate FiO2 04/16/19 08:00 98.0 78 18 138/58 (84) 99 04/16/19 06:02 159/75 04/16/19 04:00 98.4 72 20 142/80 (100) 99 04/16/19 00:00 98.1 73 18 132/51 (78) 97 04/15/19 21:52 74 176/76 04/15/19 21:51 174/76 04/15/19 21:00 Room Air 04/15/19 20:00 98.2 80 20 149/69 (95) 97 04/15/19 19:58 97 Room Air 21 04/15/19 17:15 79 141/64 (89) 04/15/19 16:00 98.1 86 20 154/63 (93) 98 04/15/19 13:21 127/55 04/15/19 13:15 77 127/55 (79) 04/15/19 12:00 97.9 79 20 144/69 (94) 97 Intake and Output 04/15/19 04/16/19 18:59 06:59 Intake Total 0 ml Output Total 200 ml 900 ml Balance -200 ml -900 ml Intake Oral 0 ml Output Urine Total 200 ml 700 ml Stool Total 200 ml Laboratory Tests 04/16/19 06:55: White Blood Count 5.5, Red Blood Count 3.36L, Hemoglobin 9.6L, Hematocrit 30.7L , Mean Corpuscular Volume 91, Mean Corpuscular Hemoglobin 28.6, Mean Corpuscular Hemoglobin Concent 31.4L, Red Cell Distribution Width 18.0H, Platelet Count 128L, Mean Platelet Volume 7.6, Neutrophils (%) (Auto) 76.1H, Lymphocytes (%) (Auto) 12.3L, Monocytes (%) (Auto) 10.3H, Eosinophils (%) (Auto ) 0.3, Basophils (%) (Auto) 1.0, Sodium Level 135L, Potassium Level 4.6, Chloride Level 107, Carbon Dioxide Level 16L, Anion Gap 12, Blood Urea Nitrogen 18, Creatinine 2.0H, Estimat Glomerular Filtration Rate , Glucose Level 142H, Calcium Level 7.6L Height (Feet): 5 Height (Inches): 9.00 Weight (Pounds): 174 General Appearance: lethargic EENT: normal ENT inspection Neck: normal alignment Cardiovascular: normal peripheral pulses, normal rate, regular rhythm Respiratory/Chest: chest wall non-tender, lungs clear, normal breath sounds Abdomen: normal bowel sounds, non tender, soft Extremities: normal inspection Edema: no edema noted Arm (L), no edema noted Arm (R), no edema noted Leg (L), no edema noted Leg (R), no edema noted Pedal (L), no edema noted Pedal (R), no edema noted Generalized Neurologic: responsive, motor weakness Jamie Gray DO Apr 16, 2019 09:12
[2019-04-16] MEDS: Carvedilol 12.5mg tab ORAL SCH ×2 (09:13→20:41)
[2019-04-16] MEDS: Tamsulosin 0.4mg cap ORAL SCH ×2 (09:13→17:12)
[2019-04-16] MEDS: Memantine 5 MG TAB ORAL SCH ×2 (09:14→17:12)
[2019-04-16] MEDS: Bacitracin Oint UD TOPIC SCH ×2 (09:14→17:13)
[2019-04-16] MEDS: Dronabinol 2.5mg Cap ORAL SCH ×2 (09:14→17:12)
[2019-04-16] MEDS: Heparin 5000 units/ml inj SUBQ SCH ×2 (09:14→20:33)
[2019-04-16] MEDS: Vancomycin oral 125mg/2.5ml ORAL SCH (09:14)
--- NOTE | 2019-04-16 10:05 | NUR ---
RD ASSESSMENT & RECOMMENDATIONS SEE CARE ACTIVITY FOR COMPLETE ASSESSMENT DAILY ESTIMATED NEEDS: Needs based on wounds, cancer, obese; 84kg adj 20-25 kcals/kg 1680- 2100 total kcals 1.25-1.5 g protein/kg 84- 126 g total protein 25-30 mL/kg 2100- 2520 total fluid mLs NUTRITION DIAGNOSIS: 1) Increased protein needs r/t wounds AEb multiple full thickness wounds, refer to eval. 2) Swallowing difficulty r/t dysphagia AEB slitter service and setter eval, currently on liquify puree texture diet w/ NTL. 3) Altered nutrition related lab values r/t clinical status as evidenced by elev BG (203 216), Na 150- wnl, K 3.1- wnl, elev BUN/ creat now trending down. CURRENT DIET:Renal diet, nectar thick, liq. pureed like soup PO DIET RECOMMENDATIONS: --->>> WITH CONTINUED POOR PO INTAKE, REC LIBERALIZED LOW NA DIET ENTERAL NUTRITION RECOMMENDATIONS: Glucerna 1.5 @55mL/hr x 24 hrs to provide 1320mL, 1980kcal, 109g pro, 1001mL free H2O - With continued poor po intake, consider non oral feeds if c/w POC -> obtain GI access. - Initiate Glucerna 1.5 @15mL/hr, advancing 10mL/hr q4-6 hrs until @ goal. - HOB > 30 degrees. - Flush per MD. ADDITIONAL RECOMMENDATIONS: 1) Re-calibrate bed scale w/ added P200 mattress for accurate CBW 2) Monitor lytes, need for dietary restriction (ARF per MD) 3) Wound care: Ananda BID, MVI x1 daily (nephrovite per MD?) + Vit C/ dosing per Renal MD 4) Continue Glucerna TID/ monitor lytes, need for Nepro 5) W/ continued poor po intake, TF recs as above. 6) snacks in b/w all meals ----- (04/16) 48hr Kcal count: / menu tickets available-> 0% intake for both meals. PO intake per EMR: 04/13: 10% 0% 10% 04/14: Refusal of all 3 meals 04/15: Refusal of all 3 meals * Pt is not meeting his daily est kcal and pro needs. Rec above TF feeds to meet nutritional needs as medically able.
--- NOTE | 2019-04-16 11:10 | NUR ---
NURSE NOTES: RN called Dr HERNANDEZ regarding D/C orders, ordered to clear by ID, Dr MATSON notified, he stated he will check. will continue to monitor.
--- NOTE | 2019-04-16 11:16 | Infectious Diseases Prog Note ---
Assessment/Plan Assessment/Plan 83yo gentleman with PMH below [facility] with confusion, wheezing and desaturation between 83-90%. Pt is oriented to self. Does not know where he is or why he is in the hospital. He initially says yes to abdominal pain, suprapubic pain, leg pain, arm pain but then denied it on second question. Denies fever, chills, cough, sob, diarrhea, dysuria. Unclear baseline. Pt recently had blood transfusion at [facility] 03/06. Pt was recently diagnosed with bladder cancer 12/2018 Afebrile On RA No leukocytosis No lactic acidosis Hypoxia at [facility], SP Possible PNA? flu swab negative CXR: Mild diffuse airspace opacities in both lungs. Lungs are underinflated.Lung findings are likely due to underinflation rather than pulmonary edema or atelectasis. Possible UTI? UA WBC TNTC, also moderate epithelial cells UCx: 50-60K amp sensitive E faecalis E faecalis bacteremia likely 06/17 UTI 04/01 BCx: E faecalis 04/02 BCx: neg TTE without vegetation C diff + 04/04- still having diarrhea Acute DVT pending IVC filter RIGHT LEG: Venous imaging reveals acute thrombus in the common to superficial femoral veins. LEFT LEG: Venous imaging reveals acute thrombus in the common to superficial femoral veins. SP IVC filter 04/06 Hypokalemia MRSA screen negative ANGELA on CKD CAD Bladder cancer HTN DM CVA Dyslipidemia CKD Anemia BPH Plan: Switch Vancomycin PO #13/ to PO Dificid 200mg bid #05/25-14 given continued diarrhea -04/15 SP IV Vancomycin #14 -04/13 SP Flagyl #4 -04/09 SP Cefepime #8 aspiration precaution, elevate HOB monitor temp and CBC needs 48hrs diarrhea free to discontinue isolation Thank you for this consult. [facility] will continue to follow the patient with you. Subjective Allergies: Coded Allergies: No Known Allergies (Unverified , 12/20/18) Subjective afebrile no leukocytosis Objective Vital Signs Last 24 Hour Vital Signs Date Time Temp Pulse Resp B/P (MAP) Pulse Ox O2 Delivery O2 Flow Rate FiO2 04/16/19 09:13 78 138/58 04/16/19 09:00 Room Air 04/16/19 08:00 98.0 78 18 138/58 (84) 99 12/2/19 06:02 159/75 04/16/19 04:00 98.4 72 20 142/80 (100) 99 04/16/19 00:00 98.1 73 18 132/51 (78) 97 04/15/19 21:52 74 176/76 04/15/19 21:51 174/76 04/15/19 21:00 Room Air 04/15/19 20:00 98.2 80 20 149/69 (95) 97 04/15/19 19:58 97 Room Air 21 04/15/19 17:15 79 141/64 (89) 04/15/19 16:00 98.1 86 20 154/63 (93) 98 04/15/19 13:21 127/55 04/15/19 13:15 77 127/55 (79) 04/15/19 12:00 97.9 79 20 144/69 (94) 97 Height (Feet): 5 Height (Inches): 9.00 Weight (Pounds): 174 Objective Constitutional: Denies: no symptoms, chills, fever, malaise, weakness, other HEENT: Denies: no symptoms, eye pain, blurred vision, tearing, double vision, ear pain, ear discharge, nose pain, nose congestion, throat pain, throat swelling, mouth pain, mouth swelling, other Cardiovascular: Denies: no symptoms, chest pain, edema, irregular heart rate, lightheadedness, palpitations, syncope, other Respiratory: Denies: no symptoms, cough, shortness of breath, SOB with excertion, SOB at rest, sputum, wheezing, other Neurologic/Psychiatric: Denies: no symptoms, anxiety, depressed, emotional problems, headache, numbness, paresthesia, pre-existing deficit, seizure, tingling, tremors, weakness, other Endocrine: Denies: no symptoms, excessive sweating, flushing, intolerance to cold, intolerance to heat, increased hunger, increased thirst, increased urine, unexplained weight gain, unexplained weight loss, other Microbiology Date/Time Source Procedure Growth Status 04/15/19 16:10 Penis Gram Stain Pending Resulted 04/15/19 16:10 Penis Wound Culture - Preliminary Resulted Laboratory Tests Test 04/16/19 06:35 04/16/19 06:55 Phosphorus Level Pending Magnesium Level Pending Total Bilirubin Pending Direct Bilirubin Pending Aspartate Amino Transf (AST/SGOT) Pending Alanine Aminotransferase (ALT/SGPT) Pending Alkaline Phosphatase Pending Total Protein Pending Albumin Pending White Blood Count 5.5 K/UL (4.8-10.8) Red Blood Count 3.36 M/UL (4.70-6.10) L Hemoglobin 9.6 G/DL (14.2-18.0) L Hematocrit 30.7 % (42.0-52.0) L Mean Corpuscular Volume 91 FL (80-99) Mean Corpuscular Hemoglobin 28.6 PG (27.0-31.0) Mean Corpuscular Hemoglobin Concent 31.4 G/DL (32.0-36.0) L Red Cell Distribution Width 18.0 % (11.6-14.8) H Platelet Count 128 K/UL (150-450) L Mean Platelet Volume 7.6 FL (6.5-10.1) Neutrophils (%) (Auto) 76.1 % (45.0-75.0) H Lymphocytes (%) (Auto) 12.3 % (20.0-45.0) L Monocytes (%) (Auto) 10.3 % (1.0-10.0) H Eosinophils (%) (Auto) 0.3 % (0.0-3.0) Basophils (%) (Auto) 1.0 % (0.0-2.0) Sodium Level 135 MMOL/L (136-145) L Potassium Level 4.6 MMOL/L (3.5-5.1) Chloride Level 107 MMOL/L (98-107) Carbon Dioxide Level 16 MMOL/L (21-32) L Anion Gap 12 mmol/L (5-15) Blood Urea Nitrogen 18 mg/dL (7-18) Creatinine 2.0 MG/DL (0.55-1.30) H Estimat Glomerular Filtration Rate mL/min (>60) Glucose Level 142 MG/DL (74-106) H Calcium Level 7.6 MG/DL (8.5-10.1) L Current Medications Medications (Trade) Dose Ordered Sig/Sallie Route PRN Reason Start Time Stop Time Status Last Admin Dose Admin Acetaminophen (Tylenol) 650 mg Q4H PRN ORAL fever 04/06/19 14:00 05/01/19 13:59 Acetaminophen (Tylenol) 650 mg Q4H PRN ORAL Mild Pain/Temp > 100.5 04/13/19 16:15 05/13/19 16:14 Allopurinol (Allopurinol) 300 mg DAILY ORAL 04/07/19 09:00 05/03/19 09:59 04/16/19 09:14 Bacitracin (Bacitracin) 1 applic BID TOPIC 04/12/19 09:00 05/12/19 08:59 04/16/19 09:14 Carvedilol (Coreg) 12.5 mg EVERY 12 HOURS ORAL 04/06/19 21:00 05/01/19 08:59 04/16/19 09:13 Chlorhexidine Gluconate (Abril-Hex 2%) 1 applic DAILY@2000 TOPIC 04/16/19 20:00 05/16/19 19:59 Dextrose (Dextrose 50%) 25 ml Q30M PRN IV Hypoglycemia 04/06/19 14:00 05/01/19 10:29 Dextrose (Dextrose 50%) 50 ml Q30M PRN IV Hypoglycemia 04/06/19 14:00 05/01/19 10:29 Dextrose/ Electrolytes 1,000 ml @ 75 mls/hr [id number] IV 04/06/19 13:30 05/04/19 09:59 04/15/19 10:04 Dronabinol (Marinol) 2.5 mg BID ORAL 04/13/19 09:00 05/13/19 08:59 04/16/19 09:14 Heparin Sodium (Porcine) (Heparin 5000 units/ml) 5,000 units EVERY 12 HOURS SUBQ 04/06/19 21:00 05/01/19 08:59 04/16/19 09:14 Heparin Sodium/ Sodium Chloride (Heparin 1000 units/500ml Premix) 1,000 unit ONCE PRN IV PICC LINE INSERTION 04/15/19 15:45 04/17/19 15:44 Hydralazine HCl (Apresoline) 50 mg Q8HR ORAL 04/06/19 14:00 05/01/19 13:59 04/16/19 06:02 Insulin Aspart (NovoLOG) BEFORE MEALS AND HS SUBQ 04/06/19 16:30 05/01/19 11:29 04/15/19 21:46 Lidocaine HCl (Xylocaine 1% 30ml) 30 ml ONCE PRN INJ PICC LINE 04/15/19 15:45 04/17/19 15:44 Lorazepam (Ativan) 0.5 mg Q6H PRN ORAL For Anxiety 04/11/19 13:30 04/18/19 13:29 04/15/19 06:15 Memantine (Namenda) 5 mg BID ORAL 04/11/19 18:00 05/11/19 17:59 04/16/19 09:14 Metronidazole 100 ml @ 100 mls/hr Q6HR IVPB 04/15/19 12:00 04/22/19 11:59 04/15/19 11:45 Minoxidil (Loniten) 2.5 mg Q4H PRN ORAL bp over 165 syst 04/06/19 14:00 05/01/19 13:59 Ondansetron HCl (Zofran) 4 mg Q6H PRN IVP Nausea & Vomiting 04/06/19 14:00 05/01/19 07:59 04/13/19 20:19 Quetiapine Fumarate (SEROqueL) 50 mg TWICE A DAY ORAL 04/06/19 18:00 05/03/19 17:59 04/16/19 09:13 Risperidone (RisperDAL) 1 mg Q12HR ORAL 04/12/19 15:00 05/12/19 14:59 04/16/19 09:14 Tamsulosin HCl (Flomax) 0.4 mg BID ORAL 04/06/19 18:00 05/01/19 12:59 04/16/19 09:13 Vancomycin HCl (Firvanq) 125 mg FOUR TIMES A DAY ORAL 04/06/19 18:00 04/17/19 23:59 04/16/19 09:14 Jyoti Piedra M.D. Apr 16, 2019 11:16
[2019-04-16 11:44] LABS: ALANINE AMINOTRANSFERASE 16 U/L (12-78); ALBUMIN 1.5 G/DL (3.4-5.0); ALKALINE PHOSPHATASE 153 U/L (46-116); ASPARTATE AMINO TRANSFERASE 31 U/L (15-37); BILIRUBIN,DIRECT 0.6 MG/DL (0.0-0.3); BILIRUBIN,TOTAL 0.8 MG/DL (0.2-1.0); PHOSPHORUS 5.8 MG/DL (2.5-4.9)
[2019-04-16] MEDS ORDERED: Lidocaine 1% Plain 30 ml INJ PRN ×2 (12:00→15:15)
[2019-04-16] MEDS ORDERED: Heparin1,000 units/500ml Premix(Conc:2 units/ml) IV PRN ×2 (12:00→15:15)
--- NOTE | 2019-04-16 12:55 | NUR ---
NURSE NOTES: Pt refused lunch so insulin didn't given, BRIDGETT SAGASTUME visited pt and is aware, no new order to RN. Will continue to monitor.
--- NOTE | 2019-04-16 13:10 | GI Progress Note ---
Assessment/Plan Problems: (1) C. difficile colitis ICD Codes: A04.72 - Enterocolitis due to Clostridium difficile, not specified as recurrent SNOMED: 148441585 (2) Dehydration ICD Codes: E86.0 - Dehydration SNOMED: 47473617 (3) Anemia ICD Codes: D64.9 - Anemia, unspecified SNOMED: 445748569 Status: unchanged Status Narrative Discussed with Dr. Valiente. Assessment/Plan C Diff Colitis Anemia OB (+) OBS Dementia diarrhea anorexia Decubitus ulcer Calorie count d/w with RD, patient not meeting nutrition needs Recommendations Patient requires PEG to meet nutritional needs, will schedule for tomorrow. Ok for oral gratification. Push p.o. PRN transfusions Pepcid 20 mg twice daily The patient was seen and examined at bedside and all new and available data was reviewed in the patients chart. I agree with the above findings, impression and plan. (Patient seen earlier today. Signature stamp does not reflect patient encounter time.). - Terell Valiente MD Subjective Gastrointestinal/Abdominal: Reports: no symptoms Subjective states diarrhea has resolved Objective Last 24 Hour Vital Signs Date Time Temp Pulse Resp B/P (MAP) Pulse Ox O2 Delivery O2 Flow Rate FiO2 04/16/19 12:00 98.3 76 19 131/61 (84) 99 04/16/19 09:13 78 138/58 04/16/19 09:00 Room Air 04/16/19 08:00 98.0 78 18 138/58 (84) 99 04/16/19 06:02 159/75 04/16/19 04:00 98.4 72 20 142/80 (100) 99 04/16/19 00:00 98.1 73 18 132/51 (78) 97 04/15/19 21:52 74 176/76 04/15/19 21:51 174/76 04/15/19 21:00 Room Air 04/15/19 20:00 98.2 80 20 149/69 (95) 97 04/15/19 19:58 97 Room Air 21 04/15/19 17:15 79 141/64 (89) 04/15/19 16:00 98.1 86 20 154/63 (93) 98 04/15/19 13:21 127/55 04/15/19 13:15 77 127/55 (79) Intake and Output 04/15/19 04/16/19 19:00 07:00 Intake Total 0 ml Output Total 200 ml 900 ml Balance -200 ml -900 ml Intake Oral 0 ml Output Urine Total 200 ml 700 ml Stool Total 200 ml Laboratory Tests Test 04/16/19 06:35 04/16/19 06:55 Phosphorus Level 5.8 MG/DL (2.5-4.9) H Magnesium Level 1.6 MG/DL (1.8-2.4) L Total Bilirubin 0.8 MG/DL (0.2-1.0) Direct Bilirubin 0.6 MG/DL (0.0-0.3) H Aspartate Amino Transf (AST/SGOT) 31 U/L (15-37) Alanine Aminotransferase (ALT/SGPT) 16 U/L (12-78) Alkaline Phosphatase 153 U/L (46-116) H Total Protein 5.7 G/DL (6.4-8.2) L Albumin 1.5 G/DL (3.4-5.0) L White Blood Count 5.5 K/UL (4.8-10.8) Red Blood Count 3.36 M/UL (4.70-6.10) L Hemoglobin 9.6 G/DL (14.2-18.0) L Hematocrit 30.7 % (42.0-52.0) L Mean Corpuscular Volume 91 FL (80-99) Mean Corpuscular Hemoglobin 28.6 PG (27.0-31.0) Mean Corpuscular Hemoglobin Concent 31.4 G/DL (32.0-36.0) L Red Cell Distribution Width 18.0 % (11.6-14.8) H Platelet Count 128 K/UL (150-450) L Mean Platelet Volume 7.6 FL (6.5-10.1) Neutrophils (%) (Auto) 76.1 % (45.0-75.0) H Lymphocytes (%) (Auto) 12.3 % (20.0-45.0) L Monocytes (%) (Auto) 10.3 % (1.0-10.0) H Eosinophils (%) (Auto) 0.3 % (0.0-3.0) Basophils (%) (Auto) 1.0 % (0.0-2.0) Sodium Level 135 MMOL/L (136-145) L Potassium Level 4.6 MMOL/L (3.5-5.1) Chloride Level 107 MMOL/L (98-107) Carbon Dioxide Level 16 MMOL/L (21-32) L Anion Gap 12 mmol/L (5-15) Blood Urea Nitrogen 18 mg/dL (7-18) Creatinine 2.0 MG/DL (0.55-1.30) H Estimat Glomerular Filtration Rate mL/min (>60) Glucose Level 142 MG/DL (74-106) H Calcium Level 7.6 MG/DL (8.5-10.1) L Microbiology Date/Time Source Procedure Growth Status 04/15/19 16:10 Penis Gram Stain - Final Resulted 04/15/19 16:10 Penis Wound Culture - Preliminary Resulted Height (Feet): 5 Height (Inches): 9.00 Weight (Pounds): 174 General Appearance: WD/WN, no apparent distress, alert Cardiovascular: normal rate Respiratory/Chest: normal breath sounds, no respiratory distress Abdominal Exam: normal bowel sounds, non tender, soft Extremities: non-tender Omer Cunningham NP Apr 16, 2019 13:09
--- NOTE | 2019-04-16 13:35 | Pulmonology Progress Note ---
Assessment/Plan Problems: (1) C. difficile colitis (2) Acute respiratory failure with hypoxemia (3) Acute deep vein thrombosis (DVT) of both femoral veins (4) Thrombocytopenia (5) Invasive carcinoma of urinary bladder (6) CAD (coronary artery disease) (7) Anemia (8) Diabetes (9) HTN (hypertension) (10) Bladder cancer Assessment/Plan still has diarrhea refused V/q scan renal function improving V/q scan showed low probability PE venous studies of legs showed acute DVT bilaterally IVC filter done respiratory treatment check electrolytes titrate fiio2 to sat of 92% dvt prophylaxis. renal function improving Subjective ROS Limited/Unobtainable: No Constitutional: Reports: no symptoms HEENT: Repors: no symptoms Respiratory: Reports: no symptoms Allergies: Coded Allergies: No Known Allergies (Unverified , 12/20/18) Objective Last 24 Hour Vital Signs Date Time Temp Pulse Resp B/P (MAP) Pulse Ox O2 Delivery O2 Flow Rate FiO2 04/16/19 12:00 98.3 76 19 131/61 (84) 99 04/16/19 09:13 78 138/58 04/16/19 09:00 Room Air 04/16/19 08:00 98.0 78 18 138/58 (84) 99 04/16/19 06:02 159/75 04/16/19 04:00 98.4 72 20 142/80 (100) 99 04/16/19 00:00 98.1 73 18 132/51 (78) 97 04/15/19 21:52 74 176/76 04/15/19 21:51 174/76 04/15/19 21:00 Room Air 04/15/19 20:00 98.2 80 20 149/69 (95) 97 04/15/19 19:58 97 Room Air 21 04/15/19 17:15 79 141/64 (89) 04/15/19 16:00 98.1 86 20 154/63 (93) 98 Intake and Output 04/15/19 04/16/19 19:00 07:00 Intake Total 0 ml Output Total 200 ml 900 ml Balance -200 ml -900 ml Intake Oral 0 ml Output Urine Total 200 ml 700 ml Stool Total 200 ml Objective HEENT: normocephalic, atraumatic Respiratory/Chest: chest wall non-tender, normal breath sounds Cardiovascular: normal rate, regular rhythm Abdomen: normal bowel sounds, soft, non tender Genitourinary: normal external genitalia Extremities: no cyanosis Skin: no rash, no lesions Microbiology Date/Time Source Procedure Growth Status 04/15/19 16:10 Penis Gram Stain - Final Resulted 04/15/19 16:10 Penis Wound Culture - Preliminary Resulted Laboratory Tests 04/16/19 06:35: Phosphorus Level 5.8H, Magnesium Level 1.6L, Total Bilirubin 0.8, Direct Bilirubin 0.6H, Aspartate Amino Transf (AST/SGOT) 31, Alanine Aminotransferase ( ALT/SGPT) 16, Alkaline Phosphatase 153H, Total Protein 5.7L, Albumin 1.5L 04/16/19 06:55: White Blood Count 5.5, Red Blood Count 3.36L, Hemoglobin 9.6L, Hematocrit 30.7L , Mean Corpuscular Volume 91, Mean Corpuscular Hemoglobin 28.6, Mean Corpuscular Hemoglobin Concent 31.4L, Red Cell Distribution Width 18.0H, Platelet Count 128L, Mean Platelet Volume 7.6, Neutrophils (%) (Auto) 76.1H, Lymphocytes (%) (Auto) 12.3L, Monocytes (%) (Auto) 10.3H, Eosinophils (%) (Auto ) 0.3, Basophils (%) (Auto) 1.0, Sodium Level 135L, Potassium Level 4.6, Chloride Level 107, Carbon Dioxide Level 16L, Anion Gap 12, Blood Urea Nitrogen 18, Creatinine 2.0H, Estimat Glomerular Filtration Rate , Glucose Level 142H, Calcium Level 7.6L Current Medications Medications (Trade) Dose Ordered Sig/Sallie Route PRN Reason Start Time Stop Time Status Last Admin Dose Admin Acetaminophen (Tylenol) 650 mg Q4H PRN ORAL fever 04/06/19 14:00 05/01/19 13:59 Acetaminophen (Tylenol) 650 mg Q4H PRN ORAL Mild Pain/Temp > 100.5 04/13/19 16:15 05/13/19 16:14 Allopurinol (Allopurinol) 300 mg DAILY ORAL 04/07/19 09:00 05/03/19 09:59 04/16/19 09:14 Bacitracin (Bacitracin) 1 applic BID TOPIC 04/12/19 09:00 05/12/19 08:59 04/16/19 09:14 Carvedilol (Coreg) 12.5 mg EVERY 12 HOURS ORAL 04/06/19 21:00 05/01/19 08:59 04/16/19 09:13 Chlorhexidine Gluconate (Abril-Hex 2%) 1 applic DAILY@2000 TOPIC 04/16/19 20:00 05/16/19 19:59 Dextrose (Dextrose 50%) 25 ml Q30M PRN IV Hypoglycemia 04/06/19 14:00 05/01/19 10:29 Dextrose (Dextrose 50%) 50 ml Q30M PRN IV Hypoglycemia 04/06/19 14:00 05/01/19 10:29 Dextrose/ Electrolytes 1,000 ml @ 75 mls/hr [id number] IV 04/06/19 13:30 05/04/19 09:59 04/15/19 10:04 Dronabinol (Marinol) 2.5 mg BID ORAL 04/13/19 09:00 05/13/19 08:59 04/16/19 09:14 Fidaxomicin (Dificid) 200 mg EVERY 12 HOURS ORAL 04/16/19 21:00 04/23/19 20:59 Heparin Sodium (Porcine) (Heparin 5000 units/ml) 5,000 units EVERY 12 HOURS SUBQ 04/06/19 21:00 05/01/19 08:59 04/16/19 09:14 Heparin Sodium/ Sodium Chloride (Heparin 1000 units/500ml Premix) 1,000 unit ONCE PRN IV PICC LINE INSERTION 04/15/19 15:45 04/17/19 15:44 Hydralazine HCl (Apresoline) 50 mg Q8HR ORAL 04/06/19 14:00 05/01/19 13:59 04/16/19 06:02 Insulin Aspart (NovoLOG) BEFORE MEALS AND HS SUBQ 04/06/19 16:30 05/01/19 11:29 04/15/19 21:46 Lidocaine HCl (Xylocaine 1% 30ml) 30 ml ONCE PRN INJ PICC LINE 04/15/19 15:45 04/17/19 15:44 Lorazepam (Ativan) 0.5 mg Q6H PRN ORAL For Anxiety 04/11/19 13:30 04/18/19 13:29 04/15/19 06:15 Memantine (Namenda) 5 mg BID ORAL 04/11/19 18:00 05/11/19 17:59 04/16/19 09:14 Minoxidil (Loniten) 2.5 mg Q4H PRN ORAL bp over 165 syst 04/06/19 14:00 05/01/19 13:59 Ondansetron HCl (Zofran) 4 mg Q6H PRN IVP Nausea & Vomiting 04/06/19 14:00 05/01/19 07:59 04/13/19 20:19 Quetiapine Fumarate (SEROqueL) 50 mg TWICE A DAY ORAL 04/06/19 18:00 05/03/19 17:59 04/16/19 09:13 Risperidone (RisperDAL) 1 mg Q12HR ORAL 04/12/19 15:00 05/12/19 14:59 04/16/19 09:14 Tamsulosin HCl (Flomax) 0.4 mg BID ORAL 04/06/19 18:00 05/01/19 12:59 04/16/19 09:13 Adam Moyer MD Apr 16, 2019 13:35
--- NOTE | 2019-04-16 14:15 | Progress Note ---
DATE: 04/15/2019 SUBJECTIVE: This is an 83-year-old male patient with mood lability, confusion, psychomotor agitation. He is intermittently agitated on the unit and he does require daily psychiatric consultation in order to stabilize his mood. MENTAL STATUS EXAMINATION: This is an 83-year-old male. Appearance is disheveled. Attitude, irritable and agitated. Affect, guarded and restricted. Intellect, poor. Mood, depressed and anxious. Motor activity, psychomotor agitation. Attention span is poor. Orientation x1. Speech is low volume, slurred. Thought process is disorganized and illogical. Insight and judgment is poor. DIAGNOSIS: Major depressive disorder, severe, recurrent with psychotic features, rule out dementia with psychosis, rule out paranoid schizophrenia. PLAN: My plan for this patient is to treat this patient with a medication regimen consisting of Seroquel 50 mg orally twice a day, Risperdal 1 mg orally q.12 hours to reduce psychomotor agitation and irritability, Namenda 5 mg twice a day to prevent any further decline in his cognition, and Ativan 0.5 mg every 6 hours p.r.n. anxiety and agitation. 20 minutes of cognitive behavioral therapy to help him identify his automatic negative thoughts and help him convert his negative thoughts to more positive thoughts to reduce depression, anxiety, mood lability. Chart reviewed. Discussed with staff. Seen and assessed in his room. Ami Hennessy M.D. DR: TAMERA JOB#: [id number] CC:
--- NOTE | 2019-04-16 15:01 | NUR ---
NURSE NOTES: BRIDGETT SAGASTUME called and stated Dr HERNANDEZ hold D/C order till tomorrow to do EGD, is on bed side, spoke with BRIDGETT SAGASTUME and signed consent form, noted and carried out. will continue to monitor.
--- NOTE | 2019-04-16 15:28 | Nephrology Progress Note ---
Assessment/Plan Problem List: (1) ARF (acute renal failure) (2) Acute on chronic renal insufficiency (3) Diabetes (4) HTN (hypertension) (5) Bladder cancer (6) Invasive carcinoma of urinary bladder (7) Anemia Assessment Acute renal failure ? Superimposed CKD Bladder Mass / h/o Hematuria HTN DM Anemia, previous transfusions s/p Cystoscopy 12/28 Plan labs reviewed hardly takes PO meds med-surg favor transfusion Hydrate richardson IV Iron K Supplement BP management, BP med adjustment Monitor lytes and renal parameters Kidney ESDRAS , no hydro per orders Previous Uro note: Tolerated bladder tumor resection well. Unfortunately greater part of the bladder is involved and essentially replaced all normal bladder with tumor. I can not resect all the tumors. Patient needs a radical cystectomy (removal of bladder) or radiation/chemotherapy at higher level of care. 1. recommend transfer to higher level of care for cystectomy 2. continue richardson, keep irrigation to maintain light pink urine. Multiple mass like lesions within the bladder. Further evaluation with cystoscopy is recommended to evaluate for possible neoplasm. Multiple parapelvic renal cysts Subjective ROS Limited/Unobtainable: No Constitutional: Reports: malaise, weakness Objective Objective Last 24 Hour Vital Signs Date Time Temp Pulse Resp B/P (MAP) Pulse Ox O2 Delivery O2 Flow Rate FiO2 04/16/19 14:13 131/61 04/16/19 12:00 98.3 76 19 131/61 (84) 99 04/16/19 09:13 78 138/58 04/16/19 09:00 Room Air 04/16/19 08:00 98.0 78 18 138/58 (84) 99 04/16/19 06:02 159/75 04/16/19 04:00 98.4 72 20 142/80 (100) 99 04/16/19 00:00 98.1 73 18 132/51 (78) 97 04/15/19 21:52 74 176/76 04/15/19 21:51 174/76 04/15/19 21:00 Room Air 04/15/19 20:00 98.2 80 20 149/69 (95) 97 04/15/19 19:58 97 Room Air 21 04/15/19 17:15 79 141/64 (89) 04/15/19 16:00 98.1 86 20 154/63 (93) 98 Intake and Output 04/15/19 04/16/19 19:00 07:00 Intake Total 0 ml Output Total 200 ml 900 ml Balance -200 ml -900 ml Intake Oral 0 ml Output Urine Total 200 ml 700 ml Stool Total 200 ml Current Medications Medications (Trade) Dose Ordered Sig/Sallie Route PRN Reason Start Time Stop Time Status Last Admin Dose Admin Acetaminophen (Tylenol) 650 mg Q4H PRN ORAL fever 04/06/19 14:00 05/01/19 13:59 Acetaminophen (Tylenol) 650 mg Q4H PRN ORAL Mild Pain/Temp > 100.5 04/13/19 16:15 05/13/19 16:14 Allopurinol (Allopurinol) 300 mg DAILY ORAL 04/07/19 09:00 05/03/19 09:59 04/16/19 09:14 Bacitracin (Bacitracin) 1 applic BID TOPIC 04/12/19 09:00 05/12/19 08:59 04/16/19 09:14 Carvedilol (Coreg) 12.5 mg EVERY 12 HOURS ORAL 04/06/19 21:00 05/01/19 08:59 04/16/19 09:13 Cefoxitin Sodium 1 gm/Dextrose 55 ml @ 110 mls/hr ONCE PRN IV sterilization tech to GI lab 04/17/19 08:00 04/17/19 23:59 Chlorhexidine Gluconate (Abril-Hex 2%) 1 applic DAILY@1999 TOPIC 04/16/19 20:00 05/16/19 19:59 Chlorhexidine Gluconate (Abril-Hex 2%) 1 applic DAILY@1999 TOPIC 04/16/19 20:00 05/16/19 19:59 Dextrose (Dextrose 50%) 25 ml Q30M PRN IV Hypoglycemia 04/06/19 14:00 05/01/19 10:29 Dextrose (Dextrose 50%) 50 ml Q30M PRN IV Hypoglycemia 04/06/19 14:00 05/01/19 10:29 Dextrose/ Electrolytes 1,000 ml @ 75 mls/hr [id number] IV 04/06/19 13:30 05/04/19 09:59 04/15/19 10:04 Dronabinol (Marinol) 2.5 mg BID ORAL 04/13/19 09:00 05/13/19 08:59 04/16/19 09:14 Fidaxomicin (Dificid) 200 mg EVERY 12 HOURS ORAL 04/16/19 21:00 04/23/19 20:59 Heparin Sodium (Porcine) (Heparin 5000 units/ml) 5,000 units EVERY 12 HOURS SUBQ 04/06/19 21:00 05/01/19 08:59 04/16/19 09:14 Heparin Sodium/ Sodium Chloride (Heparin 1000 units/500ml Premix) 1,000 unit ONCE PRN IV PICC LINE INSERTION 04/15/19 15:45 04/17/19 15:44 Heparin Sodium/ Sodium Chloride (Heparin 1000 units/500ml Premix) 1,000 unit ONCE PRN IV picc line placement 04/16/19 15:15 04/18/19 15:14 Hydralazine HCl (Apresoline) 50 mg Q8HR ORAL 04/06/19 14:00 05/01/19 13:59 04/16/19 14:13 Insulin Aspart (NovoLOG) BEFORE MEALS AND HS SUBQ 04/06/19 16:30 05/01/19 11:29 04/15/19 21:46 Lidocaine HCl (Xylocaine 1% 30ml) 30 ml ONCE PRN INJ PICC LINE 04/15/19 15:45 04/17/19 15:44 Lidocaine HCl (Xylocaine 1% 30ml) 30 ml ONCE PRN INJ picc line placement 04/16/19 15:15 04/18/19 15:14 Lorazepam (Ativan) 0.5 mg Q6H PRN ORAL For Anxiety 04/11/19 13:30 04/18/19 13:29 04/15/19 06:15 Memantine (Namenda) 5 mg BID ORAL 04/11/19 18:00 05/11/19 17:59 04/16/19 09:14 Minoxidil (Loniten) 2.5 mg Q4H PRN ORAL bp over 165 syst 04/06/19 14:00 05/01/19 13:59 Ondansetron HCl (Zofran) 4 mg Q6H PRN IVP Nausea & Vomiting 04/06/19 14:00 05/01/19 07:59 04/13/19 20:19 Quetiapine Fumarate (SEROqueL) 50 mg TWICE A DAY ORAL 04/06/19 18:00 05/03/19 17:59 04/16/19 09:13 Risperidone (RisperDAL) 1 mg Q12HR ORAL 04/12/19 15:00 05/12/19 14:59 04/16/19 09:14 Tamsulosin HCl (Flomax) 0.4 mg BID ORAL 04/06/19 18:00 05/01/19 12:59 04/16/19 09:13 Laboratory Tests 04/16/19 06:35: Phosphorus Level 5.8H, Magnesium Level 1.6L, Total Bilirubin 0.8, Direct Bilirubin 0.6H, Aspartate Amino Transf (AST/SGOT) 31, Alanine Aminotransferase ( ALT/SGPT) 16, Alkaline Phosphatase 153H, Total Protein 5.7L, Albumin 1.5L 04/16/19 06:55: White Blood Count 5.5, Red Blood Count 3.36L, Hemoglobin 9.6L, Hematocrit 30.7L , Mean Corpuscular Volume 91, Mean Corpuscular Hemoglobin 28.6, Mean Corpuscular Hemoglobin Concent 31.4L, Red Cell Distribution Width 18.0H, Platelet Count 128L, Mean Platelet Volume 7.6, Neutrophils (%) (Auto) 76.1H, Lymphocytes (%) (Auto) 12.3L, Monocytes (%) (Auto) 10.3H, Eosinophils (%) (Auto ) 0.3, Basophils (%) (Auto) 1.0, Sodium Level 135L, Potassium Level 4.6, Chloride Level 107, Carbon Dioxide Level 16L, Anion Gap 12, Blood Urea Nitrogen 18, Creatinine 2.0H, Estimat Glomerular Filtration Rate , Glucose Level 142H, Calcium Level 7.6L Height (Feet): 5 Height (Inches): 9.00 Weight (Pounds): 174 General Appearance: no apparent distress, lethargic Cardiovascular: normal rate Respiratory/Chest: decreased breath sounds Abdomen: soft Objective no change Russell Sofia MD Apr 16, 2019 15:28
--- NOTE | 2019-04-16 15:42 | NUR ---
NURSE NOTES: BRIDGETT SAGASTUME visited pt and ordered if can't insert iv access, pt needs PICC, but [employer]ODUCT [employer]DER АЛЕКСАНДР could insert R wrist 22g. Will continue to monitor.
--- NOTE | 2019-04-16 17:30 | NUR ---
NURSE NOTES: wound treatment done as order and pt tolerated well. will continue to monitor.
--- NOTE | 2019-04-16 18:22 | Surgery Progress Note ---
Surgery Progress Note Subjective Additional Comments Patient seen and examined bedside. States he feels well. is at bedside and says she wants to take him home at some point. She knows bilateral decubitus ulcers and says that he does not move much or have any interest and assisting with care. Pain is still swollen with stable wound. Unfortunately given current condition will be difficult to heal but will continue with local wound care. Objective Last 24 Hour Vital Signs Date Time Temp Pulse Resp B/P (MAP) Pulse Ox O2 Delivery O2 Flow Rate FiO2 04/16/19 16:00 97.5 76 18 129/59 (82) 96 04/16/19 14:13 131/61 04/16/19 12:00 98.3 76 19 131/61 (84) 99 04/16/19 09:13 78 138/58 04/16/19 09:00 Room Air 04/16/19 08:00 98.0 78 18 138/58 (84) 99 04/16/19 06:02 159/75 04/16/19 04:00 98.4 72 20 142/80 (100) 99 04/16/19 00:00 98.1 73 18 132/51 (78) 97 04/15/19 21:52 74 176/76 04/15/19 21:51 174/76 04/15/19 21:00 Room Air 04/15/19 20:00 98.2 80 20 149/69 (95) 97 04/15/19 19:58 97 Room Air 21 I&O Intake and Output 04/15/19 04/16/19 19:00 07:00 Intake Total 0 ml Output Total 200 ml 900 ml Balance -200 ml -900 ml Intake Oral 0 ml Output Urine Total 200 ml 700 ml Stool Total 200 ml Dressing: other Wound: other Drains: other Cardiovascular: RSR Respiratory: decreased breath sounds Abdomen: soft, present bowel sounds Extremities: no cyanosis, other Laboratory Tests Test 04/16/19 06:35 04/16/19 06:55 Phosphorus Level 5.8 MG/DL (2.5-4.9) H Magnesium Level 1.6 MG/DL (1.8-2.4) L Total Bilirubin 0.8 MG/DL (0.2-1.0) Direct Bilirubin 0.6 MG/DL (0.0-0.3) H Aspartate Amino Transf (AST/SGOT) 31 U/L (15-37) Alanine Aminotransferase (ALT/SGPT) 16 U/L (12-78) Alkaline Phosphatase 153 U/L (46-116) H Total Protein 5.7 G/DL (6.4-8.2) L Albumin 1.5 G/DL (3.4-5.0) L White Blood Count 5.5 K/UL (4.8-10.8) Red Blood Count 3.36 M/UL (4.70-6.10) L Hemoglobin 9.6 G/DL (14.2-18.0) L Hematocrit 30.7 % (42.0-52.0) L Mean Corpuscular Volume 91 FL (80-99) Mean Corpuscular Hemoglobin 28.6 PG (27.0-31.0) Mean Corpuscular Hemoglobin Concent 31.4 G/DL (32.0-36.0) L Red Cell Distribution Width 18.0 % (11.6-14.8) H Platelet Count 128 K/UL (150-450) L Mean Platelet Volume 7.6 FL (6.5-10.1) Neutrophils (%) (Auto) 76.1 % (45.0-75.0) H Lymphocytes (%) (Auto) 12.3 % (20.0-45.0) L Monocytes (%) (Auto) 10.3 % (1.0-10.0) H Eosinophils (%) (Auto) 0.3 % (0.0-3.0) Basophils (%) (Auto) 1.0 % (0.0-2.0) Sodium Level 135 MMOL/L (136-145) L Potassium Level 4.6 MMOL/L (3.5-5.1) Chloride Level 107 MMOL/L (98-107) Carbon Dioxide Level 16 MMOL/L (21-32) L Anion Gap 12 mmol/L (5-15) Blood Urea Nitrogen 18 mg/dL (7-18) Creatinine 2.0 MG/DL (0.55-1.30) H Estimat Glomerular Filtration Rate mL/min (>60) Glucose Level 142 MG/DL (74-106) H Calcium Level 7.6 MG/DL (8.5-10.1) L Plan Problems: (1) Scrotal lesion Assessment & Plan: This is a 83-year-old male with multiple medical morbidities who was identified to have abnormal scrotal lesions on admission. There are 3 lesions on the scrotum clearly identified and likely old small abscesses or carbuncles which have healed slowly. Patient is incontinent With leakage of stool identified around the scrotal sac on the posterior aspect where the lesions are located. No signs of active infection no active drainage nontender skin macerated Recommend washing the scrotum daily with normal saline. Apply skin protectant and moisture absorbent dressing daily and as needed saturation Physical examination was identified to have a draining pustule in the left shaft base of the penis. There is an opening less than a centimeter with drainage of some mild seropurulent fluid and some slough. Wound irrigated cleansed and some non-excisional debridement with gauze was performed. There is significant edema in the area no cellulitis skin otherwise intact. Fair amount of moisture in the area. Will continue with local care We will follow and monitor for healing Pain is still swollen and has a wound on the left base 1 cm opening some slough. Some non-excisional debridement done at bedside. We will continue to monitor wound. (2) Sacral decubitus ulcer, stage III Assessment & Plan: Pt presented on admission with multiple pressure injuries. Full thickness sacral pressure injury. Base of wound is viable with an area that is purple in center. Semi-detached black borders(L)9.5cm x (W)4.9cm x(D) 0.2cm .Non-blanching erythema periwound. Multiple pressure injuries Scrotum. Base of pressure injury R scrotum 75% pink granulation,25% slough. Edges pink,flat and adherent to base of wound.(L)2.2cm x (W)0.9cm.Ful thickness pressure injury center -base of scrotum (L)0.5cm x (W) 0.4cm. Base of wound has 100% slough. Full thickness pressure injury L scrotum ( L)2cm x (W01.1cm. Base of wound has 90% slough ,10% viable. Reabsorbing blood blister R heel heel. Base of wound black (L)2.2cm x (W)2cm with red tinged borders with fluctuance. (L)5.5cm x(W)5cm. Reabsorbing Blood Blister L heel. Base of wound is black ,dry with maroon and fluctuant borders.(L)6.5cm x (W)6cm Abd folds are moist and dark but is intact. Penile wound identified. Now open from edema. Slough noted. Slough wiped and cleaned. Non-excisional debridement performed. Wound stable. No longer draining. Tx.Plan: Cleanse Sacral wound with Saline. Apply Therahoney. Apply Moisture Barrier Paste periwound. Cover with Optifoam drsg Daily and prn. Cleanse wounds on Scrotum with saline. Apply Therhaoney to each wound. Cover with Optifoam drsg. Change Daily and prn. Bacitracin to penile wound. Apply Moisture Barrier to Abd folds and Bilat groin Daily and prn. APM/NOLBERTO Mattress overlay. Reposition at least every 2hours or as tolerated. Off-load heels with pillow. (3) Bladder cancer (4) C. difficile colitis Assessment & Plan: blood cultures negative C diff positive - discussed with ID cont abx labs noted and improved exam stable cont current tx LeviBebeto kaplan Apr 16, 2019 18:22
--- NOTE | 2019-04-16 19:30 | NUR ---
NURSE NOTES: Patient was sleeping on time of rounds but woke up easily. No respiratory distress noted, no complaints of pain. Call light in reach. Bed in lowest, lock engaged and alarm on. Will continue to monitor.
--- NOTE | 2019-04-16 19:30 | NUR ---
HAND-OFF: Report given to ESTELA GUTIERREZ.Pt is awake and stable. Endorsed to keep pt NPO from mid night.
[2019-04-16] MEDS ORDERED: Dyna-Hex 2% Top Sol 2oz TOPIC SCH ×2 (20:00)
[2019-04-16] MEDS: Dyna-Hex 2% Top Sol 2oz TOPIC SCH (20:00)
[2019-04-17] VITALS (8 sets, daily range): BP systolic 126–162; BP diastolic 51–76
[2019-04-17 05:04] LABS: INR 1.2 (0.9-1.1)
[2019-04-17 05:06] LABS: ANION GAP 9 mmol/L (5-15); BLOOD UREA NITROGEN 17 mg/dL (7-18); CALCIUM 7.4 MG/DL (8.5-10.1); CARBON DIOXIDE 19 MMOL/L (21-32); CHLORIDE 106 MMOL/L (98-107); POTASSIUM 4.7 MMOL/L (3.5-5.1); SODIUM 134 MMOL/L (136-145)
[2019-04-17] MEDS: HydrALAZINE 50mg tab ORAL SCH ×3 (05:53→21:19)
[2019-04-17] MEDS: NovoLOG Insulin Flexpen SUBQ SCH ×4 (05:53→21:28)
[2019-04-17 06:02] LABS: BASOPHILS % (AUTO) 0.6 % (0.0-2.0); EOSINOPHILS % (AUTO) 0.8 % (0.0-3.0); HEMATOCRIT 27.8 % (42.0-52.0); HEMOGLOBIN 8.6 G/DL (14.2-18.0); LYMPHOCYTES % (AUTO) 12.6 % (20.0-45.0); MEAN CORPUSCULAR VOLUME 92 FL (80-99); MONOCYTES % (AUTO) 15.1 % (1.0-10.0); PLATELET COUNT 133 K/UL (150-450); RED BLOOD COUNT 3.02 M/UL (4.70-6.10); RED CELL DISTRIBUTION WIDTH 18.3 % (11.6-14.8); WHITE BLOOD COUNT 4.7 K/UL (4.8-10.8)
--- NOTE | 2019-04-17 06:02 | General Progress Note ---
Assessment/Plan Status: unchanged Assessment/Plan: Assessment/Plan Problems: (1) C. difficile colitis ICD Codes: A04.72 - Enterocolitis due to Clostridium difficile, not specified as recurrent SNOMED: 208505032 (2) Dehydration ICD Codes: E86.0 - Dehydration SNOMED: 52205416 (3) Anemia ICD Codes: D64.9 - Anemia, unspecified SNOMED: 006385999 Status: stable Assessment/Plan fecal occult blood stool positive x2 C. difficile positive diarrhea Recommend EGD and colonoscopy at some point to evaluate possible GI bleed, will consider after holiday weekend if still inpatient. Antibiotics per infectious diseases off PPI IV and p.o. hydration plus electrolyte correction advance diet as tolerated Monitor H&H, PRN transfusions off all laxatives We will follow with additional recommendations on a daily basis Ensure s/p IVC filter placement add marinol calore count plan PEG for today Subjective Allergies: Coded Allergies: No Known Allergies (Unverified , 12/20/18) Objective Last 24 Hour Vital Signs Date Time Temp Pulse Resp B/P (MAP) Pulse Ox O2 Delivery O2 Flow Rate FiO2 04/17/19 04:00 97.7 62 17 126/55 (78) 99 04/16/19 23:59 98.7 62 17 118/53 (74) 97 04/16/19 21:55 160/60 04/16/19 21:00 Room Air 04/16/19 20:41 71 133/65 04/16/19 20:00 98.9 71 18 133/65 (87) 98 04/16/19 16:00 97.5 76 18 129/59 (82) 96 04/16/19 14:13 131/61 04/16/19 12:00 98.3 76 19 131/61 (84) 99 04/16/19 09:13 78 138/58 04/16/19 09:00 Room Air 04/16/19 08:00 98.0 78 18 138/58 (84) 99 04/16/19 06:02 159/75 Intake and Output 04/16/19 04/17/19 19:00 07:00 Intake Total 625 ml 675 ml Output Total 400 ml Balance 225 ml 675 ml IV Total 425 ml 675 ml Other 200 ml Output Urine Total 400 ml Laboratory Tests 04/16/19 06:35: Phosphorus Level 5.8H, Magnesium Level 1.6L, Total Bilirubin 0.8, Direct Bilirubin 0.6H, Aspartate Amino Transf (AST/SGOT) 31, Alanine Aminotransferase ( ALT/SGPT) 16, Alkaline Phosphatase 153H, Total Protein 5.7L, Albumin 1.5L 04/16/19 06:55: White Blood Count 5.5, Red Blood Count 3.36L, Hemoglobin 9.6L, Hematocrit 30.7L , Mean Corpuscular Volume 91, Mean Corpuscular Hemoglobin 28.6, Mean Corpuscular Hemoglobin Concent 31.4L, Red Cell Distribution Width 18.0H, Platelet Count 128L, Mean Platelet Volume 7.6, Neutrophils (%) (Auto) 76.1H, Lymphocytes (%) (Auto) 12.3L, Monocytes (%) (Auto) 10.3H, Eosinophils (%) (Auto ) 0.3, Basophils (%) (Auto) 1.0, Sodium Level 135L, Potassium Level 4.6, Chloride Level 107, Carbon Dioxide Level 16L, Anion Gap 12, Blood Urea Nitrogen 18, Creatinine 2.0H, Estimat Glomerular Filtration Rate , Glucose Level 142H, Calcium Level 7.6L 04/17/19 04:20: White Blood Count [Pending], Red Blood Count [Pending], Hemoglobin [Pending], Hematocrit [Pending], Mean Corpuscular Volume [Pending], Mean Corpuscular Hemoglobin [Pending], Mean Corpuscular Hemoglobin Concent [Pending], Red Cell Distribution Width [Pending], Platelet Count [Pending], Mean Platelet Volume [ Pending], Neutrophils (%) (Auto) [Pending], Lymphocytes (%) (Auto) [Pending], Monocytes (%) (Auto) [Pending], Eosinophils (%) (Auto) [Pending], Basophils (%) (Auto) [Pending], Sodium Level 134L, Potassium Level 4.7, Chloride Level 106, Carbon Dioxide Level 19L, Anion Gap 9, Blood Urea Nitrogen 17, Creatinine 2.0H, Estimat Glomerular Filtration Rate , Glucose Level 213H, Calcium Level 7.4L, Prothrombin Time 12.2H, Prothromb Time International Ratio 1.2H, Activated Partial Thromboplast Time 27 Height (Feet): 5 Height (Inches): 5.00 Weight (Pounds): 174 General Appearance: alert EENT: normal ENT inspection Neck: supple Cardiovascular: normal rate Respiratory/Chest: decreased breath sounds Abdomen: normal bowel sounds, non tender, soft Extremities: non-tender Terell Valiente MD Apr 17, 2019 06:02
--- NOTE | 2019-04-17 06:40 | Hematology/Onc Progress Note ---
Assessment/Plan Assessment/Plan Assessment and Recs: # ACUTE DEEP VEIN THROMBOSIS BILATERAL, new onset, from 04/02/19 s/p IVC filter on 05/06/[address] Arroyo --> reviewed images with radiology, goes from common to proximal common femoral v ein --> V/Q scan --> shows low prob pe --> given low h/h and low plts, recommend ivc filter placement, consent has been signed --> cleared with other consultants, zen RN --> s/p IVC filter by Dr Arroyo 04/06 --> hold off on anticoagulation until h/h other counts stabilize # Bladder cancer requires resection v chemo/xrt -- presented with multi masses CT shows Scattered eccentric mural thickening/masses in the urinary bladder wall , correlating with findings on recent ultrasound. No significant perivesical stranding. Recommend further evaluation with cystoscopy. --> urology consulted, appreciate input --> Uro note from prior admission: Tolerated bladder tumor resection well. Unfortunately greater part of the bladder is involved and essentially replaced all normal bladder with tumor. I can not resect all the tumors. --> may consider chemo/radiation as outpatient --> path does confirm malignancy --> CBI as needed per uro # Pancytopenia - potential causes multifactorial, evaluate liver and viral etiologies to begin, also could be related to underlying medications patient has received. --> Hep panel and HIV --> NEGATIVE --> US abd showed bladder masses--> ct reviewed as well --> Peripheral smear ordered to evaluate for blasts /schistocytes --> none noted --> abx and other meds have been reviewed --> ok for ppx if plt >50k w/ either heparin or lovenox --> trend plt >92-->104-->86-->73-->117k-->133k --> wbc trend 3.7-->4.1-->4.7 # Anemia of iron deficiency likely due to hematuria --> iv iron x 5 days low ferritin, completed from prior admission --> likely due to hematuria --> have started on ivf and consider uro prn cysto --> hgb goal >7 --> cont po folic acid --> hgb trend: 7.4-->8.4 --> as per gi at some point may need egd/colo # Acute renal injury --> cr >1.4-->1.4-->1.7-->1.5-->3.7->1.8-->2 --> per renal recs --> volume expansion # HTN --> cards is following, appreciate recs # C. diff colitis --> on po vanc/flagyl --> per id # Hematuria --> improved # UTI (urinary tract infection) --> per id on abx, cefe/vanc # Scrotal lesions --> per surg eval --> as per wound care # Dehydration # Dvt ppx heparin sq and ivf filter The timing of this note does not necessarily reflect the time of the patient was seen. GREATLY APPRECIATE CONSULTATION. Subjective HEENT: Denies: no symptoms, eye pain, blurred vision, tearing, double vision, ear pain, ear discharge, nose pain, nose congestion, throat pain, throat swelling, mouth pain, mouth swelling, other Cardiovascular: Denies: no symptoms, chest pain, edema, irregular heart rate, lightheadedness, palpitations, syncope, other Respiratory: Denies: no symptoms, cough, shortness of breath, SOB with excertion, SOB at rest, sputum, wheezing, other Gastrointestinal/Abdominal: Denies: no symptoms, abdomen distended, abdominal pain, black stools, tarry stools, blood in stool, constipated, diarrhea, difficulty swallowing, nausea, poor appetite, poor fluid intake, rectal bleeding , vomiting, other Genitourinary: Denies: no symptoms, burning, discharge, frequency, flank pain, hematuria, incontinence, pain, urgency, other Neurologic/Psychiatric: Denies: no symptoms, anxiety, depressed, emotional problems, headache, numbness, paresthesia, pre-existing deficit, seizure, tingling, tremors, weakness, other Endocrine: Denies: no symptoms, excessive sweating, flushing, intolerance to cold, intolerance to heat, increased hunger, increased thirst, increased urine, unexplained weight gain, unexplained weight loss, other Allergies: Coded Allergies: No Known Allergies (Unverified , 12/20/18) Subjective 04/03: s/p 1 bag iv iron, hgb 7.4, repeat cbc tomorrow, consent for ivc filter has been signed 04/04: is pending clearance of blood cultures, have dw id, potentially thurs for ivcf placement 04/05: no events, still pending ivc filter, have dw rn and id 04/06: no events, no bleeding, pending filter, as per id clearance 04/08: tolerated ivc filter well on 04/06, no events, no bleeding reported 04/09: no events, remains confused is on 2l nc, zen rn 04/10: no events, with lesion noted on penile shaft, no bleeding noted 04/11: no events, tolerated only half of vanc, plt 101, ok to give heparin sq 04/12: on ensure, no bleeding, labs noted, wbc lower, no major changes 04/13: remains confused, labs noted from yesterday, on abx 04/14: no major changes, therahoney dressing changes, no bleeding, labs reviewed 04/15: awake and alert, no acute events, on room air, cbc ordered 12.2: no f/c, no major changes, labs reviewed, ++rt and +richardson 04/17: potential for peg, procedure, no bleeding, labs reviewed Objective Objective Current Medications Medications (Trade) Dose Ordered Sig/Sallie Route PRN Reason Start Time Stop Time Status Last Admin Dose Admin Acetaminophen (Tylenol) 650 mg Q4H PRN ORAL fever 04/06/19 14:00 05/01/19 13:59 Acetaminophen (Tylenol) 650 mg Q4H PRN ORAL Mild Pain/Temp > 100.5 04/13/19 16:15 05/13/19 16:14 Allopurinol (Allopurinol) 300 mg DAILY ORAL 04/07/19 09:00 05/03/19 09:59 04/16/19 09:14 Bacitracin (Bacitracin) 1 applic BID TOPIC 04/12/19 09:00 05/12/19 08:59 04/16/19 17:13 Carvedilol (Coreg) 12.5 mg EVERY 12 HOURS ORAL 04/06/19 21:00 05/01/19 08:59 04/16/19 20:41 Cefoxitin Sodium 1 gm/Dextrose 55 ml @ 110 mls/hr ONCE PRN IV airport control operator to GI lab 04/17/19 08:00 04/17/19 23:59 Chlorhexidine Gluconate (Abril-Hex 2%) 1 applic DAILY@1999 TOPIC 04/16/19 20:00 05/16/19 19:59 Chlorhexidine Gluconate (Abril-Hex 2%) 1 applic DAILY@1999 TOPIC 04/16/19 20:00 05/16/19 19:59 Dextrose (Dextrose 50%) 25 ml Q30M PRN IV Hypoglycemia 04/06/19 14:00 05/01/19 10:29 Dextrose (Dextrose 50%) 50 ml Q30M PRN IV Hypoglycemia 04/06/19 14:00 05/01/19 10:29 Dextrose/ Electrolytes 1,000 ml @ 75 mls/hr [id number] IV 04/06/19 13:30 05/04/19 09:59 04/16/19 15:50 Dronabinol (Marinol) 2.5 mg BID ORAL 04/13/19 09:00 05/13/19 08:59 04/16/19 17:12 Fidaxomicin (Dificid) 200 mg EVERY 12 HOURS ORAL 04/16/19 21:00 04/23/19 20:59 04/16/19 20:41 Heparin Sodium (Porcine) (Heparin 5000 units/ml) 5,000 units EVERY 12 HOURS SUBQ 04/06/19 21:00 05/01/19 08:59 04/16/19 09:14 Heparin Sodium/ Sodium Chloride (Heparin 1000 units/500ml Premix) 1,000 unit ONCE PRN IV PICC LINE INSERTION 04/15/19 15:45 04/17/19 15:44 Heparin Sodium/ Sodium Chloride (Heparin 1000 units/500ml Premix) 1,000 unit ONCE PRN IV picc line placement 04/16/19 15:15 04/18/19 15:14 Hydralazine HCl (Apresoline) 50 mg Q8HR ORAL 04/06/19 14:00 05/01/19 13:59 04/16/19 21:55 Insulin Aspart (NovoLOG) BEFORE MEALS AND HS SUBQ 04/06/19 16:30 05/01/19 11:29 04/17/19 05:53 Lidocaine HCl (Xylocaine 1% 30ml) 30 ml ONCE PRN INJ PICC LINE 04/15/19 15:45 04/17/19 15:44 Lidocaine HCl (Xylocaine 1% 30ml) 30 ml ONCE PRN INJ picc line placement 04/16/19 15:15 04/18/19 15:14 Lorazepam (Ativan) 0.5 mg Q6H PRN ORAL For Anxiety 04/11/19 13:30 04/18/19 13:29 04/15/19 06:15 Memantine (Namenda) 5 mg BID ORAL 04/11/19 18:00 05/11/19 17:59 04/16/19 17:12 Minoxidil (Loniten) 2.5 mg Q4H PRN ORAL bp over 165 syst 04/06/19 14:00 05/01/19 13:59 Ondansetron HCl (Zofran) 4 mg Q6H PRN IVP Nausea & Vomiting 04/06/19 14:00 05/01/19 07:59 04/13/19 20:19 Quetiapine Fumarate (SEROqueL) 50 mg TWICE A DAY ORAL 04/06/19 18:00 05/03/19 17:59 04/16/19 17:13 Risperidone (RisperDAL) 1 mg Q12HR ORAL 04/12/19 15:00 05/12/19 14:59 04/16/19 20:41 Tamsulosin HCl (Flomax) 0.4 mg BID ORAL 04/06/19 18:00 05/01/19 12:59 04/16/19 17:12 Last 24 Hour Vital Signs Date Time Temp Pulse Resp B/P (MAP) Pulse Ox O2 Delivery O2 Flow Rate FiO2 04/17/19 04:00 97.7 62 17 126/55 (78) 99 04/16/19 23:59 98.7 62 17 118/53 (74) 97 04/16/19 21:55 160/60 04/16/19 21:00 Room Air 04/16/19 20:41 71 133/65 04/16/19 20:00 98.9 71 18 133/65 (87) 98 04/16/19 16:00 97.5 76 18 129/59 (82) 96 04/16/19 14:13 131/61 04/16/19 12:00 98.3 76 19 131/61 (84) 99 04/16/19 09:13 78 138/58 04/16/19 09:00 Room Air 04/16/19 08:00 98.0 78 18 138/58 (84) 99 04/16/19 06:02 159/75 04/16/19 04:00 98.4 72 20 142/80 (100) 99 04/16/19 00:00 98.1 73 18 132/51 (78) 97 04/15/19 21:52 74 176/76 04/15/19 21:51 174/76 04/15/19 21:00 Room Air 04/15/19 20:00 98.2 80 20 149/69 (95) 97 04/15/19 19:58 97 Room Air 21 04/15/19 17:15 79 141/64 (89) 04/15/19 16:00 98.1 86 20 154/63 (93) 98 04/15/19 13:21 127/55 04/15/19 13:15 77 127/55 (79) 04/15/19 12:00 97.9 79 20 144/69 (94) 97 04/15/19 09:00 Room Air 04/15/19 08:00 97.4 78 20 148/54 (85) 96 Intake and Output 04/16/19 04/17/19 19:00 07:00 Intake Total 625 ml 675 ml Output Total 400 ml 300 ml Balance 225 ml 375 ml IV Total 425 ml 675 ml Other 200 ml Output Urine Total 400 ml 300 ml Labs Test 04/16/19 06:35 04/16/19 06:55 04/17/19 04:20 Phosphorus Level 5.8 MG/DL (2.5-4.9) Magnesium Level 1.6 MG/DL (1.8-2.4) Total Bilirubin 0.8 MG/DL (0.2-1.0) Direct Bilirubin 0.6 MG/DL (0.0-0.3) Aspartate Amino Transf (AST/SGOT) 31 U/L (15-37) Alanine Aminotransferase (ALT/SGPT) 16 U/L (12-78) Alkaline Phosphatase 153 U/L (46-116) Total Protein 5.7 G/DL (6.4-8.2) Albumin 1.5 G/DL (3.4-5.0) White Blood Count 5.5 K/UL (4.8-10.8) 4.7 K/UL (4.8-10.8) Red Blood Count 3.36 M/UL (4.70-6.10) 3.02 M/UL (4.70-6.10) Hemoglobin 9.6 G/DL (14.2-18.0) 8.6 G/DL (14.2-18.0) Hematocrit 30.7 % (42.0-52.0) 27.8 % (42.0-52.0) Mean Corpuscular Volume 91 FL (80-99) 92 FL (80-99) Mean Corpuscular Hemoglobin 28.6 PG (27.0-31.0) 28.5 PG (27.0-31.0) Mean Corpuscular Hemoglobin Concent 31.4 G/DL (32.0-36.0) 30.9 G/DL (32.0-36.0) Red Cell Distribution Width 18.0 % (11.6-14.8) 18.3 % (11.6-14.8) Platelet Count 128 K/UL (150-450) 133 K/UL (150-450) Mean Platelet Volume 7.6 FL (6.5-10.1) 8.5 FL (6.5-10.1) Neutrophils (%) (Auto) 76.1 % (45.0-75.0) 71.0 % (45.0-75.0) Lymphocytes (%) (Auto) 12.3 % (20.0-45.0) 12.6 % (20.0-45.0) Monocytes (%) (Auto) 10.3 % (1.0-10.0) 15.1 % (1.0-10.0) Eosinophils (%) (Auto) 0.3 % (0.0-3.0) 0.8 % (0.0-3.0) Basophils (%) (Auto) 1.0 % (0.0-2.0) 0.6 % (0.0-2.0) Sodium Level 135 MMOL/L (136-145) 134 MMOL/L (136-145) Potassium Level 4.6 MMOL/L (3.5-5.1) 4.7 MMOL/L (3.5-5.1) Chloride Level 107 MMOL/L (98-107) 106 MMOL/L (98-107) Carbon Dioxide Level 16 MMOL/L (21-32) 19 MMOL/L (21-32) Anion Gap 12 mmol/L (5-15) 9 mmol/L (5-15) Blood Urea Nitrogen 18 mg/dL (7-18) 17 mg/dL (7-18) Creatinine 2.0 MG/DL (0.55-1.30) 2.0 MG/DL (0.55-1.30) Estimat Glomerular Filtration Rate mL/min (>60) mL/min (>60) Glucose Level 142 MG/DL (74-106) 213 MG/DL (74-106) Calcium Level 7.6 MG/DL (8.5-10.1) 7.4 MG/DL (8.5-10.1) Prothrombin Time 12.2 SEC (9.30-11.50) Prothromb Time International Ratio 1.2 (0.9-1.1) Activated Partial Thromboplast Time 27 SEC (23-33) Height (Feet): 5 Height (Inches): 5.00 Weight (Pounds): 174 Objective Physical Exam Vital Signs: have been reviewed General Appearance: non-toxic, obese, Chronically Ill Respiratory: chest non-tender, lungs clear, mirian BSs, no rhonchi Cardiovascular: normal inspection, regular rate, rhythm, GI: normal inspection, soft Genitourinary: RICHARDSON+ Musculoskeletal: normal inspection Neurologic: normal inspection, alert Psychiatric: normal inspection Skin: other - Marcelo Shen MD Apr 17, 2019 06:40
--- NOTE | 2019-04-17 07:34 | NUR ---
HAND-OFF: Report given to MATT Hoff.
--- NOTE | 2019-04-17 07:47 | NUR ---
NURSE NOTES: Patient awake, alert x2, forget full; IV Right-Wrist 22G fluid D5W w/KcL 20 mEq 75cc running; [place] in place drains well; Rectal Tube in place; patient NPO for EGD with PEG, sign at the door and nursing tech Baylee is aware; side rails up x2, breaks engaged, bed at lowest position; call light within reach; will keep monitoring.
[2019-04-17] MEDS ORDERED: cefOXitin Sod 1 GM in D5W 55 ML IV PRN (08:00)
[2019-04-17] MEDS ORDERED: Propofol 200mg/20ml IV ONE (08:00)
[2019-04-17] MEDS ORDERED: Lidocaine 1% MPF 10mg/ml 5ml ONE (08:00)
[2019-04-17] MEDS ORDERED: Phenylephrine 10mg/ml Vial ONE (08:00)
[2019-04-17] MEDS ORDERED: NS 500ML IVPB ONE (08:05)
--- NOTE | 2019-04-17 08:05 | Pre-Procedure Note/Attestation ---
Pre-Procedure Note/Attestation Complete Prior to Procedure Planned Procedure: not applicable Procedure Narrative: egd/peg Indications for Procedure Pre-Operative Diagnosis: dysphagia Attestation I attest that I discussed the nature of the procedure; its benefits; risks and complications; and alternatives (and the risks and benefits of such alternatives ), prior to the procedure, with the patient (or the patient's legal wine sales representative). I attest that, if there was a reasonable possibility of needing a blood transfusion, the patient (or the patient's legal wine sales representative) was given the [facility] standardized written summary, pursuant to the Vasquez Elvie Blood Safety Act ([place] Health and Safety Code # 1645, as amended). I attest that I re-evaluated the patient just prior to the surgery and that there has been no change in the patient's H&P, except as documented below: Terell Valiente MD Apr 17, 2019 08:05
--- NOTE | 2019-04-17 08:13 | Anethesia Preoperative Eval ---
Anesthesia Pre-op PMH/ROS General Date of Evaluation: Apr 17, 2019 Time of Evaluation: 07:49 Anesthesiologist: dorota ASA Score: ASA 4 Mallampati Score Class I : Soft palate, uvula, fauces, pillars visible Class II: Soft palate, uvula, fauces visible Class III: Soft palate, base of uvula visible Class IV: Only hard plate visible Mallampati Classification: Class II Surgeon: phan Diagnosis: dysphagia Surgical Procedure: egd/peg Anesthesia History: none Social History: smoking - unknown Family History: no anesthesia problems Allergies: Coded Allergies: No Known Allergies (Unverified , 12/20/18) Medications: see eMAR Patient NPO?: Yes Past Medical History Cardiovascular: Reports: HTN, CAD, other - chf Gastrointestinal/Genitourinary: Reports: other - c. difficile, dysphagia Neurologic/Psychiatric: Reports: dementia, CVA Endocrine: Reports: DM Hematology/Immune: Reports: DVT, other Anesthesia Pre-op Phys. Exam Physician Exam Last Vital Signs Date Time Temp Pulse Resp B/P (MAP) Pulse Ox O2 Delivery O2 Flow Rate FiO2 04/17/19 04:00 97.7 62 17 126/55 (78) 99 04/16/19 21:00 Room Air 04/15/19 19:58 21 04/12/19 20:38 2.0 Constitutional: NAD Neurologic: other Cardiovascular: RRR Respiratory: CTA Gastrointestinal: other - distended Airway Exam Mallampati Score: Class II MO: limited Neck: flexible TMD: 2fb ROM: limited Teeth: missing Anesthesia Pre-op A/P Labs Hematology Test 04/17/19 04:20 White Blood Count 4.7 K/UL (4.8-10.8) L Red Blood Count 3.02 M/UL (4.70-6.10) L Hemoglobin 8.6 G/DL (14.2-18.0) L Hematocrit 27.8 % (42.0-52.0) L Mean Corpuscular Volume 92 FL (80-99) Mean Corpuscular Hemoglobin 28.5 PG (27.0-31.0) Mean Corpuscular Hemoglobin Concent 30.9 G/DL (32.0-36.0) L Red Cell Distribution Width 18.3 % (11.6-14.8) H Platelet Count 133 K/UL (150-450) L Mean Platelet Volume 8.5 FL (6.5-10.1) Neutrophils (%) (Auto) 71.0 % (45.0-75.0) Lymphocytes (%) (Auto) 12.6 % (20.0-45.0) L Monocytes (%) (Auto) 15.1 % (1.0-10.0) H Eosinophils (%) (Auto) 0.8 % (0.0-3.0) Basophils (%) (Auto) 0.6 % (0.0-2.0) Coagulation Test 04/17/19 04:20 Prothrombin Time 12.2 SEC (9.30-11.50) H Prothromb Time International Ratio 1.2 (0.9-1.1) H Activated Partial Thromboplast Time 27 SEC (23-33) Chemistry Test 04/17/19 04:20 Sodium Level 134 MMOL/L (136-145) L Potassium Level 4.7 MMOL/L (3.5-5.1) Chloride Level 106 MMOL/L (98-107) Carbon Dioxide Level 19 MMOL/L (21-32) L Anion Gap 9 mmol/L (5-15) Blood Urea Nitrogen 17 mg/dL (7-18) Creatinine 2.0 MG/DL (0.55-1.30) H Estimat Glomerular Filtration Rate mL/min (>60) Glucose Level 213 MG/DL (74-106) H Calcium Level 7.4 MG/DL (8.5-10.1) L Risk Assessment & Plan Assessment: asa4 Plan: mac Pre-Antibiotics Drug: cefoxitin 1 gram Given Within 1 Hr of Incision: Yes Time Given: 08:52 Cammie Nobles MD Apr 17, 2019 08:13
[2019-04-17] MEDS ORDERED: fentaNYL 100 mcg/2 mL IV PRN (08:15)
[2019-04-17] MEDS ORDERED: Midazolam 2mg/2ml Inj IVP PRN (08:15)
[2019-04-17] MEDS ORDERED: DiphenhydrAMINE 50mg/ml Inj IVP PRN (08:15)
[2019-04-17] MEDS ORDERED: Atropine Sulfate 0.4mg/ml inj IVP PRN (08:15)
--- NOTE | 2019-04-17 08:26 | Endoscopy Procedure Note ---
Endoscopy Procedure Note General Indication for Procedure: dysphagia Procedures Performed: EGD, PEG Operative Findings/Diagnosis: DU Specimen: yes Pt Tolerated Procedure Well: Yes Estimated Blood Loss: none Anesthesia Anesthesiologist: fabienne Anesthesia: MAC Inserted Devices Implant(s) used?: No GI Core Measures 50 yrs or older w/o bx or poly: Not Applicable 10yrs. F/U recommended: Not Applicable Terell Valiente MD Apr 17, 2019 08:26
[2019-04-17] MEDS ORDERED: cefOXitin 1gm Inj ONE (08:48)
--- NOTE | 2019-04-17 08:54 | General Progress Note ---
Assessment/Plan Assessment/Plan: (1) Bladder cancer s/p resection (2) H/O CVA (3) Sacral decubitus ulcer Patient to be continued on Tylenol. D/w Dr. Ruelas and he concurred. Subjective Date patient seen: Apr 17, 2019 Time patient seen: 07:30 - am Allergies: Coded Allergies: No Known Allergies (Unverified , 12/20/18) Subjective Constitutional: Reports: no symptoms HEENT: Reports: no symptoms Cardiovascular: Reports: no symptoms Respiratory: Reports: no symptoms Gastrointestinal/Abdominal: Reports: no symptoms Genitourinary: Reports: no symptoms Neurologic/Psychiatric: Reports: weakness Endocrine: Reports: no symptoms Hematologic/Lymphatic: Reports: no symptoms Subjective Patient is in bed and is denying pain at this time. Will be going for EGD with GI. Objective Last 24 Hour Vital Signs Date Time Temp Pulse Resp B/P (MAP) Pulse Ox O2 Delivery O2 Flow Rate FiO2 04/17/19 04:00 97.7 62 17 126/55 (78) 99 04/16/19 23:59 98.7 62 17 118/53 (74) 97 04/16/19 21:55 160/60 04/16/19 21:00 Room Air 04/16/19 20:41 71 133/65 04/16/19 20:00 98.9 71 18 133/65 (87) 98 04/16/19 16:00 97.5 76 18 129/59 (82) 96 04/16/19 14:13 131/61 04/16/19 12:00 98.3 76 19 131/61 (84) 99 04/16/19 09:13 78 138/58 04/16/19 09:00 Room Air Intake and Output 04/16/19 04/17/19 18:59 06:59 Intake Total 550 ml 750 ml Output Total 400 ml 300 ml Balance 150 ml 450 ml IV Total 350 ml 750 ml Other 200 ml Output Urine Total 400 ml 300 ml Laboratory Tests 04/17/19 04:20: White Blood Count 4.7L, Red Blood Count 3.02L, Hemoglobin 8.6L, Hematocrit 27.8L , Mean Corpuscular Volume 92, Mean Corpuscular Hemoglobin 28.5, Mean Corpuscular Hemoglobin Concent 30.9L, Red Cell Distribution Width 18.3H, Platelet Count 133L, Mean Platelet Volume 8.5, Neutrophils (%) (Auto) 71.0, Lymphocytes (%) (Auto) 12.6L, Monocytes (%) (Auto) 15.1H, Eosinophils (%) (Auto ) 0.8, Basophils (%) (Auto) 0.6, Prothrombin Time 12.2H, Prothromb Time International Ratio 1.2H, Activated Partial Thromboplast Time 27, Sodium Level 134L, Potassium Level 4.7, Chloride Level 106, Carbon Dioxide Level 19L, Anion Gap 9, Blood Urea Nitrogen 17, Creatinine 2.0H, Estimat Glomerular Filtration Rate , Glucose Level 213H, Calcium Level 7.4L Height (Feet): 5 Height (Inches): 5.00 Weight (Pounds): 174 Objective General Appearance: no apparent distress, alert EENT: PERRL/EOMI, normal ENT inspection Neck: non-tender, normal alignment Cardiovascular: normal rate, regular rhythm Respiratory/Chest: decreased breath sounds Abdomen: other - obese Edema: trace edema Neurologic: alert, oriented x 3 Skin: warm/dry Jewel Frank Apr 17, 2019 08:54
[2019-04-17] MEDS: Heparin 5000 units/ml inj SUBQ SCH ×2 (09:00→21:21)
[2019-04-17] MEDS: Memantine 5 MG TAB ORAL SCH ×2 (09:39→17:01)
[2019-04-17] MEDS: Tamsulosin 0.4mg cap ORAL SCH ×2 (09:39→17:01)
[2019-04-17] MEDS: Dronabinol 2.5mg Cap ORAL SCH ×2 (09:40→17:01)
[2019-04-17] MEDS: Carvedilol 12.5mg tab ORAL SCH ×2 (09:40→21:18)
[2019-04-17] MEDS: Bacitracin Oint UD TOPIC SCH ×2 (09:41→17:02)
--- NOTE | 2019-04-17 09:42 | Immediate Post-Op Evaluation ---
Immediate Post-Op Evalulation Immediate Post-Op Evalulation Procedure: egd/peg Date of Evaluation: Apr 17, 2019 Time of Evaluation: 08:50 IV Fluids: 350ml 0.9ns Blood Products: none Estimated Blood Loss: negligible Blood Pressure Systolic: 162 Blood Pressure Diastolic: 72 Pulse Rate: 63 Respiratory Rate: 18 O2 Sat by Pulse Oximetry: 100 Temperature (Fahrenheit): 97.2 Pain Score (1-10): 0 Nausea: No Vomiting: No Complications none Patient Status: awake, reacts, patent Hydration Status: adequate Drug: cefoxitin 1 gram Given Within 1 Hr of Incision: Yes Time Given: 08:52 Cammie Nobles MD Apr 17, 2019 09:42
--- NOTE | 2019-04-17 09:43 | 48 Hour Post Anesthesia Eval ---
Post Anesthesia Evaluation Procedure: egd/peg Date of Evaluation: Apr 17, 2019 Time of Evaluation: 08:52 Blood Pressure Systolic: 153 0: 74 Pulse Rate: 65 Respiratory Rate: 18 Temperature (Fahrenheit): 97.2 O2 Sat by Pulse Oximetry: 100 Airway: patent Nausea: No Vomiting: No Pain Intensity: 0 Hydration Status: adequate Cardiopulmonary Status: stable Mental Status/LOC: patient returned to baseline Post-Anesthesia Complications: none Follow-up care needed: N/A Cammie Nobles MD Apr 17, 2019 09:43
--- NOTE | 2019-04-17 11:07 | NUR ---
NREMTCARDIAC RN SI: S/P PEG PLACEMENT T. 97.4 HR 63 RR 21 B/P 158/76 2L NC O2 SAT WBC 4.7 IS: IVF D5KCL @ 75ML/HR CEFOXITIN IV DIFICID HEPARIN SUBC MED/SURG STATUS
--- NOTE | 2019-04-17 11:20 | Infectious Diseases Prog Note ---
Assessment/Plan Assessment/Plan 83yo gentleman with PMH below [facility] with confusion, wheezing and desaturation between 83-90%. Pt is oriented to self. Does not know where he is or why he is in the hospital. He initially says yes to abdominal pain, suprapubic pain, leg pain, arm pain but then denied it on second question. Denies fever, chills, cough, sob, diarrhea, dysuria. Unclear baseline. Pt recently had blood transfusion at [facility] 03/06. Pt was recently diagnosed with bladder cancer 12/2018 Afebrile On RA No leukocytosis No lactic acidosis Hypoxia at [facility], SP Possible PNA? flu swab negative CXR: Mild diffuse airspace opacities in both lungs. Lungs are underinflated.Lung findings are likely due to underinflation rather than pulmonary edema or atelectasis. Possible UTI? UA WBC TNTC, also moderate epithelial cells UCx: 50-60K amp sensitive E faecalis E faecalis bacteremia likely 06/17 UTI 04/01 BCx: E faecalis 04/02 BCx: neg TTE without vegetation C diff + 04/04- still having diarrhea Acute DVT pending IVC filter RIGHT LEG: Venous imaging reveals acute thrombus in the common to superficial femoral veins. LEFT LEG: Venous imaging reveals acute thrombus in the common to superficial femoral veins. SP IVC filter 04/06 Hypokalemia MRSA screen negative ANGELA on CKD CAD Bladder cancer HTN DM CVA Dyslipidemia CKD Anemia BPH Plan: Continue PO Dificid 200mg bid #2-14 given continued diarrhea -04/16 SP PO Vancomycin #13 -04/15 SP IV Vancomycin #14 -04/13 SP Flagyl #4 -04/09 SP Cefepime #8 aspiration precaution, elevate HOB monitor temp and CBC needs 48hrs diarrhea free to discontinue isolation Thank you for this consult. [facility] will continue to follow the patient with you. Subjective Allergies: Coded Allergies: No Known Allergies (Unverified , 12/20/18) Subjective afebrile no leukocytosis Objective Vital Signs Last 24 Hour Vital Signs Date Time Temp Pulse Resp B/P (MAP) Pulse Ox O2 Delivery O2 Flow Rate FiO2 04/17/19 09:43 65 18 100 04/17/19 09:42 63 18 100 04/17/19 09:40 64 143/60 04/17/19 09:00 Room Air 04/17/19 08:55 97.4 63 21 158/76 100 Nasal Cannula 04/17/19 08:45 65 22 153/74 100 Nasal Cannula 04/17/19 08:40 64 22 153/74 100 Nasal Cannula 04/17/19 08:38 97.2 62 20 162/72 100 Nasal Cannula 04/17/19 04:00 97.7 62 17 126/55 (78) 99 04/16/19 23:59 98.7 62 17 118/53 (74) 97 04/16/19 21:55 160/60 04/16/19 21:00 Room Air 04/16/19 20:41 71 133/65 04/16/19 20:00 98.9 71 18 133/65 (87) 98 04/16/19 16:00 97.5 76 18 129/59 (82) 96 04/16/19 14:13 131/61 04/16/19 12:00 98.3 76 19 131/61 (84) 99 Height (Feet): 5 Height (Inches): 5.00 Weight (Pounds): 174 Objective Constitutional: Denies: no symptoms, chills, fever, malaise, weakness, other HEENT: Denies: no symptoms, eye pain, blurred vision, tearing, double vision, ear pain, ear discharge, nose pain, nose congestion, throat pain, throat swelling, mouth pain, mouth swelling, other Cardiovascular: Denies: no symptoms, chest pain, edema, irregular heart rate, lightheadedness, palpitations, syncope, other Respiratory: Denies: no symptoms, cough, shortness of breath, SOB with excertion, SOB at rest, sputum, wheezing, other Neurologic/Psychiatric: Denies: no symptoms, anxiety, depressed, emotional problems, headache, numbness, paresthesia, pre-existing deficit, seizure, tingling, tremors, weakness, other Endocrine: Denies: no symptoms, excessive sweating, flushing, intolerance to cold, intolerance to heat, increased hunger, increased thirst, increased urine, unexplained weight gain, unexplained weight loss, other Microbiology Date/Time Source Procedure Growth Status 04/15/19 16:10 Penis Gram Stain - Final Resulted 04/15/19 16:10 Wound Culture - Preliminary Gram Negative Bacillus 1 Kaylie Albicans Resulted Laboratory Tests Test 04/17/19 04:20 White Blood Count 4.7 K/UL (4.8-10.8) L Red Blood Count 3.02 M/UL (4.70-6.10) L Hemoglobin 8.6 G/DL (14.2-18.0) L Hematocrit 27.8 % (42.0-52.0) L Mean Corpuscular Volume 92 FL (80-99) Mean Corpuscular Hemoglobin 28.5 PG (27.0-31.0) Mean Corpuscular Hemoglobin Concent 30.9 G/DL (32.0-36.0) L Red Cell Distribution Width 18.3 % (11.6-14.8) H Platelet Count 133 K/UL (150-450) L Mean Platelet Volume 8.5 FL (6.5-10.1) Neutrophils (%) (Auto) 71.0 % (45.0-75.0) Lymphocytes (%) (Auto) 12.6 % (20.0-45.0) L Monocytes (%) (Auto) 15.1 % (1.0-10.0) H Eosinophils (%) (Auto) 0.8 % (0.0-3.0) Basophils (%) (Auto) 0.6 % (0.0-2.0) Prothrombin Time 12.2 SEC (9.30-11.50) H Prothromb Time International Ratio 1.2 (0.9-1.1) H Activated Partial Thromboplast Time 27 SEC (23-33) Sodium Level 134 MMOL/L (136-145) L Potassium Level 4.7 MMOL/L (3.5-5.1) Chloride Level 106 MMOL/L (98-107) Carbon Dioxide Level 19 MMOL/L (21-32) L Anion Gap 9 mmol/L (5-15) Blood Urea Nitrogen 17 mg/dL (7-18) Creatinine 2.0 MG/DL (0.55-1.30) H Estimat Glomerular Filtration Rate mL/min (>60) Glucose Level 213 MG/DL (74-106) H Calcium Level 7.4 MG/DL (8.5-10.1) L Current Medications Medications (Trade) Dose Ordered Sig/Sallie Route PRN Reason Start Time Stop Time Status Last Admin Dose Admin Acetaminophen (Tylenol) 650 mg Q4H PRN ORAL fever 04/06/19 14:00 05/01/19 13:59 Acetaminophen (Tylenol) 650 mg Q4H PRN ORAL Mild Pain/Temp > 100.5 04/13/19 16:15 05/13/19 16:14 Allopurinol (Allopurinol) 300 mg DAILY ORAL 04/07/19 09:00 05/03/19 09:59 04/17/19 09:39 Bacitracin (Bacitracin) 1 applic BID TOPIC 04/12/19 09:00 05/12/19 08:59 04/17/19 09:41 Carvedilol (Coreg) 12.5 mg EVERY 12 HOURS ORAL 04/06/19 21:00 05/01/19 08:59 04/17/19 09:40 Cefoxitin Sodium 1 gm/Dextrose 55 ml @ 110 mls/hr ONCE PRN IV change management consultant to GI lab 04/17/19 08:00 04/17/19 23:59 Chlorhexidine Gluconate (Abril-Hex 2%) 1 applic DAILY@1999 TOPIC 04/16/19 20:00 05/16/19 19:59 Chlorhexidine Gluconate (Abril-Hex 2%) 1 applic DAILY@1999 TOPIC 04/16/19 20:00 05/16/19 19:59 Dextrose (Dextrose 50%) 25 ml Q30M PRN IV Hypoglycemia 04/06/19 14:00 05/01/19 10:29 Dextrose (Dextrose 50%) 50 ml Q30M PRN IV Hypoglycemia 04/06/19 14:00 05/01/19 10:29 Dextrose/ Electrolytes 1,000 ml @ 75 mls/hr [id number] IV 04/06/19 13:30 05/04/19 09:59 04/16/19 15:50 Dronabinol (Marinol) 2.5 mg BID ORAL 04/13/19 09:00 05/13/19 08:59 04/17/19 09:40 Fidaxomicin (Dificid) 200 mg EVERY 12 HOURS ORAL 04/16/19 21:00 04/23/19 20:59 04/16/19 20:41 Heparin Sodium (Porcine) (Heparin 5000 units/ml) 5,000 units EVERY 12 HOURS SUBQ 04/06/19 21:00 05/01/19 08:59 04/16/19 09:14 Heparin Sodium/ Sodium Chloride (Heparin 1000 units/500ml Premix) 1,000 unit ONCE PRN IV PICC LINE INSERTION 04/15/19 15:45 04/17/19 15:44 Heparin Sodium/ Sodium Chloride (Heparin 1000 units/500ml Premix) 1,000 unit ONCE PRN IV picc line placement 04/16/19 15:15 04/18/19 15:14 Hydralazine HCl (Apresoline) 50 mg Q8HR ORAL 04/06/19 14:00 05/01/19 13:59 04/16/19 21:55 Insulin Aspart (NovoLOG) BEFORE MEALS AND HS SUBQ 04/06/19 16:30 05/01/19 11:29 04/17/19 05:53 Lansoprazole (Prevacid) 30 mg DAILY GT 04/17/19 09:00 05/17/19 08:59 04/17/19 09:39 Lidocaine HCl (Xylocaine 1% 30ml) 30 ml ONCE PRN INJ PICC LINE 04/15/19 15:45 04/17/19 15:44 Lidocaine HCl (Xylocaine 1% 30ml) 30 ml ONCE PRN INJ picc line placement 04/16/19 15:15 04/18/19 15:14 Lorazepam (Ativan) 0.5 mg Q6H PRN ORAL For Anxiety 04/11/19 13:30 04/18/19 13:29 04/15/19 06:15 Memantine (Namenda) 5 mg BID ORAL 04/11/19 18:00 05/11/19 17:59 04/17/19 09:39 Minoxidil (Loniten) 2.5 mg Q4H PRN ORAL bp over 165 syst 04/06/19 14:00 05/01/19 13:59 Ondansetron HCl (Zofran) 4 mg Q6H PRN IVP Nausea & Vomiting 04/06/19 14:00 05/01/19 07:59 04/13/19 20:19 Quetiapine Fumarate (SEROqueL) 50 mg TWICE A DAY ORAL 04/06/19 18:00 05/03/19 17:59 04/17/19 09:40 Risperidone (RisperDAL) 1 mg Q12HR ORAL 04/12/19 15:00 05/12/19 14:59 04/17/19 09:39 Tamsulosin HCl (Flomax) 0.4 mg BID ORAL 04/06/19 18:00 05/01/19 12:59 04/17/19 09:39 Jyoti Piedra M.D. Apr 17, 2019 11:20
--- NOTE | 2019-04-17 12:37 | General Progress Note ---
Assessment/Plan Problem List: (1) Invasive carcinoma of urinary bladder ICD Codes: C67.9 - Malignant neoplasm of bladder, unspecified SNOMED: 445411942 (2) Anemia ICD Codes: D64.9 - Anemia, unspecified SNOMED: 881522779 (3) Diabetes ICD Codes: E11.9 - Type 2 diabetes mellitus without complications SNOMED: 25027824 (4) HTN (hypertension) ICD Codes: I10 - Essential (primary) hypertension SNOMED: 24180263 (5) Urinary tract infection ICD Codes: N39.0 - Urinary tract infection, site not specified SNOMED: 74418340 (6) Bladder cancer ICD Codes: C67.9 - Malignant neoplasm of bladder, unspecified SNOMED: 682330005 Status: stable, progressing Assessment/Plan: pt diet eval 02 pulm tx abx uro f/u cbc bmp am advance diet if paco dc plan snf Subjective Constitutional: Reports: weakness Allergies: Coded Allergies: No Known Allergies (Unverified , 12/20/18) All Systems: reviewed and negative except above Subjective o2nc sleepy calm s/p gtube Objective Last 24 Hour Vital Signs Date Time Temp Pulse Resp B/P (MAP) Pulse Ox O2 Delivery O2 Flow Rate FiO2 04/17/19 12:00 98.9 61 14 131/61 (84) 96 04/17/19 09:43 65 18 100 04/17/19 09:42 63 18 100 04/17/19 09:40 64 143/60 04/17/19 09:00 Room Air 04/17/19 08:55 97.4 63 21 158/76 100 Nasal Cannula 04/17/19 08:45 65 22 153/74 100 Nasal Cannula 04/17/19 08:40 64 22 153/74 100 Nasal Cannula 04/17/19 08:38 97.2 62 20 162/72 100 Nasal Cannula 04/17/19 04:00 97.7 62 17 126/55 (78) 99 04/16/19 23:59 98.7 62 17 118/53 (74) 97 04/16/19 21:55 160/60 04/16/19 21:00 Room Air 04/16/19 20:41 71 133/65 04/16/19 20:00 98.9 71 18 133/65 (87) 98 04/16/19 16:00 97.5 76 18 129/59 (82) 96 04/16/19 14:13 131/61 Intake and Output 04/16/19 04/17/19 18:59 06:59 Intake Total 550 ml 750 ml Output Total 400 ml 300 ml Balance 150 ml 450 ml IV Total 350 ml 750 ml Other 200 ml Output Urine Total 400 ml 300 ml Laboratory Tests 04/17/19 04:20: White Blood Count 4.7L, Red Blood Count 3.02L, Hemoglobin 8.6L, Hematocrit 27.8L , Mean Corpuscular Volume 92, Mean Corpuscular Hemoglobin 28.5, Mean Corpuscular Hemoglobin Concent 30.9L, Red Cell Distribution Width 18.3H, Platelet Count 133L, Mean Platelet Volume 8.5, Neutrophils (%) (Auto) 71.0, Lymphocytes (%) (Auto) 12.6L, Monocytes (%) (Auto) 15.1H, Eosinophils (%) (Auto ) 0.8, Basophils (%) (Auto) 0.6, Prothrombin Time 12.2H, Prothromb Time International Ratio 1.2H, Activated Partial Thromboplast Time 27, Sodium Level 134L, Potassium Level 4.7, Chloride Level 106, Carbon Dioxide Level 19L, Anion Gap 9, Blood Urea Nitrogen 17, Creatinine 2.0H, Estimat Glomerular Filtration Rate , Glucose Level 213H, Calcium Level 7.4L Height (Feet): 5 Height (Inches): 5.00 Weight (Pounds): 174 General Appearance: lethargic EENT: normal ENT inspection Neck: normal alignment Cardiovascular: normal peripheral pulses, normal rate, regular rhythm Respiratory/Chest: chest wall non-tender, lungs clear, normal breath sounds Abdomen: normal bowel sounds, non tender, soft Extremities: normal inspection Edema: no edema noted Arm (L), no edema noted Arm (R), no edema noted Leg (L), no edema noted Leg (R), no edema noted Pedal (L), no edema noted Pedal (R), no edema noted Generalized Neurologic: motor weakness Skin: normal pigmentation, warm/dry Jamie Gray DO Apr 17, 2019 12:37
--- NOTE | 2019-04-17 12:37 | Pulmonology Progress Note ---
Assessment/Plan Problems: (1) C. difficile colitis (2) Acute respiratory failure with hypoxemia (3) Acute deep vein thrombosis (DVT) of both femoral veins (4) Thrombocytopenia (5) Invasive carcinoma of urinary bladder (6) CAD (coronary artery disease) (7) Anemia (8) Diabetes (9) HTN (hypertension) (10) Bladder cancer Assessment/Plan still has diarrhea refused V/q scan tolerating Gtube renal function improving V/q scan showed low probability PE venous studies of legs showed acute DVT bilaterally IVC filter done respiratory treatment check electrolytes titrate fiio2 to sat of 92% dvt prophylaxis. renal function improving Subjective ROS Limited/Unobtainable: No Constitutional: Reports: no symptoms HEENT: Repors: no symptoms Respiratory: Reports: no symptoms Allergies: Coded Allergies: No Known Allergies (Unverified , 12/20/18) Objective Last 24 Hour Vital Signs Date Time Temp Pulse Resp B/P (MAP) Pulse Ox O2 Delivery O2 Flow Rate FiO2 04/17/19 12:00 98.9 61 14 131/61 (84) 96 04/17/19 09:43 65 18 100 04/17/19 09:42 63 18 100 04/17/19 09:40 64 143/60 04/17/19 09:00 Room Air 04/17/19 08:55 97.4 63 21 158/76 100 Nasal Cannula 04/17/19 08:45 65 22 153/74 100 Nasal Cannula 04/17/19 08:40 64 22 153/74 100 Nasal Cannula 04/17/19 08:38 97.2 62 20 162/72 100 Nasal Cannula 04/17/19 04:00 97.7 62 17 126/55 (78) 99 04/16/19 23:59 98.7 62 17 118/53 (74) 97 04/16/19 21:55 160/60 04/16/19 21:00 Room Air 04/16/19 20:41 71 133/65 04/16/19 20:00 98.9 71 18 133/65 (87) 98 04/16/19 16:00 97.5 76 18 129/59 (82) 96 04/16/19 14:13 131/61 Intake and Output 04/16/19 04/17/19 18:59 06:59 Intake Total 550 ml 750 ml Output Total 400 ml 300 ml Balance 150 ml 450 ml IV Total 350 ml 750 ml Other 200 ml Output Urine Total 400 ml 300 ml Objective HEENT: normocephalic, atraumatic Respiratory/Chest: chest wall non-tender, normal breath sounds Cardiovascular: normal rate, regular rhythm Abdomen: normal bowel sounds, soft, non tender Genitourinary: normal external genitalia Extremities: no cyanosis Skin: no rash, no lesions Microbiology Date/Time Source Procedure Growth Status 04/15/19 16:10 Penis Gram Stain - Final Resulted 04/15/19 16:10 Wound Culture - Preliminary Gram Negative Bacillus 1 Kaylie Albicans Resulted Laboratory Tests 04/17/19 04:20: White Blood Count 4.7L, Red Blood Count 3.02L, Hemoglobin 8.6L, Hematocrit 27.8L , Mean Corpuscular Volume 92, Mean Corpuscular Hemoglobin 28.5, Mean Corpuscular Hemoglobin Concent 30.9L, Red Cell Distribution Width 18.3H, Platelet Count 133L, Mean Platelet Volume 8.5, Neutrophils (%) (Auto) 71.0, Lymphocytes (%) (Auto) 12.6L, Monocytes (%) (Auto) 15.1H, Eosinophils (%) (Auto ) 0.8, Basophils (%) (Auto) 0.6, Prothrombin Time 12.2H, Prothromb Time International Ratio 1.2H, Activated Partial Thromboplast Time 27, Sodium Level 134L, Potassium Level 4.7, Chloride Level 106, Carbon Dioxide Level 19L, Anion Gap 9, Blood Urea Nitrogen 17, Creatinine 2.0H, Estimat Glomerular Filtration Rate , Glucose Level 213H, Calcium Level 7.4L Current Medications Medications (Trade) Dose Ordered Sig/Sallie Route PRN Reason Start Time Stop Time Status Last Admin Dose Admin Acetaminophen (Tylenol) 650 mg Q4H PRN ORAL fever 04/06/19 14:00 05/01/19 13:59 Acetaminophen (Tylenol) 650 mg Q4H PRN ORAL Mild Pain/Temp > 100.5 04/13/19 16:15 05/13/19 16:14 Allopurinol (Allopurinol) 300 mg DAILY ORAL 04/07/19 09:00 05/03/19 09:59 04/17/19 09:39 Bacitracin (Bacitracin) 1 applic BID TOPIC 04/12/19 09:00 05/12/19 08:59 04/17/19 09:41 Carvedilol (Coreg) 12.5 mg EVERY 12 HOURS ORAL 04/06/19 21:00 05/01/19 08:59 04/17/19 09:40 Cefoxitin Sodium 1 gm/Dextrose 55 ml @ 110 mls/hr ONCE PRN IV suction drum drier operator to GI lab 04/17/19 08:00 04/17/19 23:59 Chlorhexidine Gluconate (Abril-Hex 2%) 1 applic DAILY@1999 TOPIC 04/16/19 20:00 05/16/19 19:59 Chlorhexidine Gluconate (Abril-Hex 2%) 1 applic DAILY@1999 TOPIC 04/16/19 20:00 05/16/19 19:59 Dextrose (Dextrose 50%) 25 ml Q30M PRN IV Hypoglycemia 04/06/19 14:00 05/01/19 10:29 Dextrose (Dextrose 50%) 50 ml Q30M PRN IV Hypoglycemia 04/06/19 14:00 05/01/19 10:29 Dextrose/ Electrolytes 1,000 ml @ 75 mls/hr [id number] IV 04/06/19 13:30 05/04/19 09:59 04/16/19 15:50 Dronabinol (Marinol) 2.5 mg BID ORAL 04/13/19 09:00 05/13/19 08:59 04/17/19 09:40 Fidaxomicin (Dificid) 200 mg EVERY 12 HOURS ORAL 04/16/19 21:00 04/23/19 20:59 04/16/19 20:41 Heparin Sodium (Porcine) (Heparin 5000 units/ml) 5,000 units EVERY 12 HOURS SUBQ 04/06/19 21:00 05/01/19 08:59 04/16/19 09:14 Heparin Sodium/ Sodium Chloride (Heparin 1000 units/500ml Premix) 1,000 unit ONCE PRN IV PICC LINE INSERTION 04/15/19 15:45 04/17/19 15:44 Heparin Sodium/ Sodium Chloride (Heparin 1000 units/500ml Premix) 1,000 unit ONCE PRN IV picc line placement 04/16/19 15:15 04/18/19 15:14 Hydralazine HCl (Apresoline) 50 mg Q8HR ORAL 04/06/19 14:00 05/01/19 13:59 04/16/19 21:55 Insulin Aspart (NovoLOG) BEFORE MEALS AND HS SUBQ 04/06/19 16:30 05/01/19 11:29 04/17/19 12:20 Lansoprazole (Prevacid) 30 mg DAILY GT 04/17/19 09:00 05/17/19 08:59 04/17/19 09:39 Lidocaine HCl (Xylocaine 1% 30ml) 30 ml ONCE PRN INJ PICC LINE 04/15/19 15:45 04/17/19 15:44 Lidocaine HCl (Xylocaine 1% 30ml) 30 ml ONCE PRN INJ picc line placement 04/16/19 15:15 04/18/19 15:14 Lorazepam (Ativan) 0.5 mg Q6H PRN ORAL For Anxiety 04/11/19 13:30 04/18/19 13:29 04/15/19 06:15 Memantine (Namenda) 5 mg BID ORAL 04/11/19 18:00 05/11/19 17:59 04/17/19 09:39 Minoxidil (Loniten) 2.5 mg Q4H PRN ORAL bp over 165 syst 04/06/19 14:00 05/01/19 13:59 Ondansetron HCl (Zofran) 4 mg Q6H PRN IVP Nausea & Vomiting 04/06/19 14:00 05/01/19 07:59 04/13/19 20:19 Quetiapine Fumarate (SEROqueL) 50 mg TWICE A DAY ORAL 04/06/19 18:00 05/03/19 17:59 04/17/19 09:40 Risperidone (RisperDAL) 1 mg Q12HR ORAL 04/12/19 15:00 05/12/19 14:59 04/17/19 09:39 Tamsulosin HCl (Flomax) 0.4 mg BID ORAL 04/06/19 18:00 05/01/19 12:59 04/17/19 09:39 Adam Moyer MD Apr 17, 2019 12:36
--- NOTE | 2019-04-17 14:17 | Nephrology Progress Note ---
Assessment/Plan Problem List: (1) ARF (acute renal failure) (2) Acute on chronic renal insufficiency (3) Diabetes (4) HTN (hypertension) (5) Bladder cancer (6) Invasive carcinoma of urinary bladder (7) Anemia Assessment Acute renal failure ? Superimposed CKD Bladder Mass / h/o Hematuria HTN DM Anemia, previous transfusions s/p Cystoscopy 12/28 Plan labs reviewed hardly takes PO meds med-surg favor transfusion Hydrate richardson IV Iron K Supplement BP management, BP med adjustment Monitor lytes and renal parameters Kidney ESDRAS , no hydro per orders Previous Uro note: Tolerated bladder tumor resection well. Unfortunately greater part of the bladder is involved and essentially replaced all normal bladder with tumor. I can not resect all the tumors. Patient needs a radical cystectomy (removal of bladder) or radiation/chemotherapy at higher level of care. 1. recommend transfer to higher level of care for cystectomy 2. continue richardson, keep irrigation to maintain light pink urine. Multiple mass like lesions within the bladder. Further evaluation with cystoscopy is recommended to evaluate for possible neoplasm. Multiple parapelvic renal cysts Subjective ROS Limited/Unobtainable: No Constitutional: Reports: malaise, weakness Objective Objective Last 24 Hour Vital Signs Date Time Temp Pulse Resp B/P (MAP) Pulse Ox O2 Delivery O2 Flow Rate FiO2 04/17/19 13:40 131/61 04/17/19 12:00 98.9 61 14 131/61 (84) 96 04/17/19 09:43 65 18 100 04/17/19 09:42 63 18 100 04/17/19 09:40 64 143/60 04/17/19 09:00 Room Air 04/17/19 08:55 97.4 63 21 158/76 100 Nasal Cannula 04/17/19 08:45 65 22 153/74 100 Nasal Cannula 04/17/19 08:40 64 22 153/74 100 Nasal Cannula 04/17/19 08:38 97.2 62 20 162/72 100 Nasal Cannula 04/17/19 04:00 97.7 62 17 126/55 (78) 99 04/16/19 23:59 98.7 62 17 118/53 (74) 97 04/16/19 21:55 160/60 04/16/19 21:00 Room Air 04/16/19 20:41 71 133/65 12/2/19 20:00 98.9 71 18 133/65 (87) 98 04/16/19 16:00 97.5 76 18 129/59 (82) 96 Intake and Output 04/16/19 04/17/19 18:59 06:59 Intake Total 550 ml 750 ml Output Total 400 ml 300 ml Balance 150 ml 450 ml IV Total 350 ml 750 ml Other 200 ml Output Urine Total 400 ml 300 ml Laboratory Tests 04/17/19 04:20: White Blood Count 4.7L, Red Blood Count 3.02L, Hemoglobin 8.6L, Hematocrit 27.8L , Mean Corpuscular Volume 92, Mean Corpuscular Hemoglobin 28.5, Mean Corpuscular Hemoglobin Concent 30.9L, Red Cell Distribution Width 18.3H, Platelet Count 133L, Mean Platelet Volume 8.5, Neutrophils (%) (Auto) 71.0, Lymphocytes (%) (Auto) 12.6L, Monocytes (%) (Auto) 15.1H, Eosinophils (%) (Auto ) 0.8, Basophils (%) (Auto) 0.6, Prothrombin Time 12.2H, Prothromb Time International Ratio 1.2H, Activated Partial Thromboplast Time 27, Sodium Level 134L, Potassium Level 4.7, Chloride Level 106, Carbon Dioxide Level 19L, Anion Gap 9, Blood Urea Nitrogen 17, Creatinine 2.0H, Estimat Glomerular Filtration Rate , Glucose Level 213H, Calcium Level 7.4L Height (Feet): 5 Height (Inches): 5.00 Weight (Pounds): 174 General Appearance: no apparent distress, lethargic Respiratory/Chest: decreased breath sounds Abdomen: soft Objective no change Russell Sofia MD Apr 17, 2019 14:17
--- NOTE | 2019-04-17 14:30 | Procedure Note ---
DATE OF PROCEDURE: 04/17/2019 SURGEON: Terell Valiente M.D. PROCEDURE: Upper endoscopy with PEG placement and biopsy. ANESTHESIA: Per Dr. Sterling. INSTRUMENT: Olympus adult flexible upper endoscope. INDICATION: Dysphagia. REASON FOR PROCEDURE: The procedure, risks, benefits, and possible consequences, including hemorrhage, aspiration, perforation and infection, and alternative treatments, were explained to the patient/legal guardian by Dr. Terell Valiente and the patient/legal guardian understood and accepted these risks. DESCRIPTION OF PROCEDURE: After informed consent was obtained and the patient was adequately sedated, Olympus upper endoscope was advanced from mouth into the second portion of the duodenum and retroflexion was performed in the stomach. The patient had a large ulcer in duodenal bulb. Also had a small ulcer in the prepyloric region in the antrum of the stomach. Biopsy from the antrum was obtained to rule out H. pylori infection. At this time, under endoscopic guidance, under sterile condition, a 20-Slovenian pull type of G-tube was successfully placed in epigastric area. The distance from the tip of the tube to skin was less than 3 cm in size. The patient tolerated the procedure without any complication. SUMMARY OF FINDINGS: 1. Duodenal ulcer. 2. Gastric ulcer. 3. Gastritis, status post biopsy. 4. Status post successful PEG placement. RECOMMENDATIONS: 1. Abdominal binder. 2. Elevate the head of the bed at all times. 3. G-tube flush. 4. G-tube care. 5. Start tube feeding later today. 6. The patient currently on antibiotics. We will continue. Terell Valiente M.D. DR: MICHELLE JOB#: [id number] CC:
--- NOTE | 2019-04-17 14:36 | Surgery Progress Note ---
Surgery Progress Note Subjective Additional Comments labs noted exam stable dressings changed still with penile swelling Objective Last 24 Hour Vital Signs Date Time Temp Pulse Resp B/P (MAP) Pulse Ox O2 Delivery O2 Flow Rate FiO2 04/17/19 13:40 131/61 04/17/19 12:00 98.9 61 14 131/61 (84) 96 04/17/19 09:43 65 18 100 04/17/19 09:42 63 18 100 04/17/19 09:40 64 143/60 04/17/19 09:00 Room Air 04/17/19 08:55 97.4 63 21 158/76 100 Nasal Cannula 04/17/19 08:45 65 22 153/74 100 Nasal Cannula 04/17/19 08:40 64 22 153/74 100 Nasal Cannula 04/17/19 08:38 97.2 62 20 162/72 100 Nasal Cannula 04/17/19 04:00 97.7 62 17 126/55 (78) 99 04/16/19 23:59 98.7 62 17 118/53 (74) 97 04/16/19 21:55 160/60 04/16/19 21:00 Room Air 04/16/19 20:41 71 133/65 04/16/19 20:00 98.9 71 18 133/65 (87) 98 04/16/19 16:00 97.5 76 18 129/59 (82) 96 I&O Intake and Output 04/16/19 04/17/19 18:59 06:59 Intake Total 550 ml 750 ml Output Total 400 ml 300 ml Balance 150 ml 450 ml IV Total 350 ml 750 ml Other 200 ml Output Urine Total 400 ml 300 ml Dressing: saturated, other Wound: other Drains: other Cardiovascular: RSR Respiratory: decreased breath sounds Abdomen: soft, present bowel sounds Extremities: edema, no cyanosis, other Laboratory Tests Test 04/17/19 04:20 White Blood Count 4.7 K/UL (4.8-10.8) L Red Blood Count 3.02 M/UL (4.70-6.10) L Hemoglobin 8.6 G/DL (14.2-18.0) L Hematocrit 27.8 % (42.0-52.0) L Mean Corpuscular Volume 92 FL (80-99) Mean Corpuscular Hemoglobin 28.5 PG (27.0-31.0) Mean Corpuscular Hemoglobin Concent 30.9 G/DL (32.0-36.0) L Red Cell Distribution Width 18.3 % (11.6-14.8) H Platelet Count 133 K/UL (150-450) L Mean Platelet Volume 8.5 FL (6.5-10.1) Neutrophils (%) (Auto) 71.0 % (45.0-75.0) Lymphocytes (%) (Auto) 12.6 % (20.0-45.0) L Monocytes (%) (Auto) 15.1 % (1.0-10.0) H Eosinophils (%) (Auto) 0.8 % (0.0-3.0) Basophils (%) (Auto) 0.6 % (0.0-2.0) Prothrombin Time 12.2 SEC (9.30-11.50) H Prothromb Time International Ratio 1.2 (0.9-1.1) H Activated Partial Thromboplast Time 27 SEC (23-33) Sodium Level 134 MMOL/L (136-145) L Potassium Level 4.7 MMOL/L (3.5-5.1) Chloride Level 106 MMOL/L (98-107) Carbon Dioxide Level 19 MMOL/L (21-32) L Anion Gap 9 mmol/L (5-15) Blood Urea Nitrogen 17 mg/dL (7-18) Creatinine 2.0 MG/DL (0.55-1.30) H Estimat Glomerular Filtration Rate mL/min (>60) Glucose Level 213 MG/DL (74-106) H Calcium Level 7.4 MG/DL (8.5-10.1) L Plan Problems: (1) Scrotal lesion Assessment & Plan: This is a 83-year-old male with multiple medical morbidities who was identified to have abnormal scrotal lesions on admission. There are 3 lesions on the scrotum clearly identified and likely old small abscesses or carbuncles which have healed slowly. Patient is incontinent With leakage of stool identified around the scrotal sac on the posterior aspect where the lesions are located. No signs of active infection no active drainage nontender skin macerated Recommend washing the scrotum daily with normal saline. Apply skin protectant and moisture absorbent dressing daily and as needed saturation Physical examination was identified to have a draining pustule in the left shaft base of the penis. There is an opening less than a centimeter with drainage of some mild seropurulent fluid and some slough. Wound irrigated cleansed and some non-excisional debridement with gauze was performed. There is significant edema in the area no cellulitis skin otherwise intact. Fair amount of moisture in the area. Will continue with local care We will follow and monitor for healing Pain is still swollen and has a wound on the left base 1 cm opening some slough. Some non-excisional debridement done at bedside. We will continue to monitor wound. (2) Sacral decubitus ulcer, stage III Assessment & Plan: Pt presented on admission with multiple pressure injuries. Full thickness sacral pressure injury. Base of wound is viable with an area that is purple in center. Semi-detached black borders(L)9.5cm x (W)4.9cm x(D) 0.2cm .Non-blanching erythema periwound. Multiple pressure injuries Scrotum. Base of pressure injury R scrotum 75% pink granulation,25% slough. Edges pink,flat and adherent to base of wound.(L)2.2cm x (W)0.9cm.Ful thickness pressure injury center -base of scrotum (L)0.5cm x (W) 0.4cm. Base of wound has 100% slough. Full thickness pressure injury L scrotum ( L)2cm x (W01.1cm. Base of wound has 90% slough ,10% viable. Reabsorbing blood blister R heel heel. Base of wound black (L)2.2cm x (W)2cm with red tinged borders with fluctuance. (L)5.5cm x(W)5cm. Reabsorbing Blood Blister L heel. Base of wound is black ,dry with maroon and fluctuant borders.(L)6.5cm x (W)6cm Abd folds are moist and dark but is intact. Penile wound identified. Now open from edema. Slough noted. Slough wiped and cleaned. Non-excisional debridement performed. Wound stable. No longer draining. Tx.Plan: Cleanse Sacral wound with Saline. Apply Therahoney. Apply Moisture Barrier Paste periwound. Cover with Optifoam drsg Daily and prn. Cleanse wounds on Scrotum with saline. Apply Therhaoney to each wound. Cover with Optifoam drsg. Change Daily and prn. Bacitracin to penile wound. Apply Moisture Barrier to Abd folds and Bilat groin Daily and prn. APM/NOLBERTO Mattress overlay. Reposition at least every 2hours or as tolerated. Off-load heels with pillow. (3) Bladder cancer (4) C. difficile colitis Assessment & Plan: blood cultures negative C diff positive - discussed with ID cont abx labs noted and improved exam stable cont current tx Bebeto Pepe Apr 17, 2019 14:36
[2019-04-17 14:55] LABS: ALANINE AMINOTRANSFERASE 7 U/L (12-78); ALBUMIN 1.5 G/DL (3.4-5.0); ALKALINE PHOSPHATASE 52 U/L (46-116); ASPARTATE AMINO TRANSFERASE 17 U/L (15-37); BILIRUBIN,DIRECT < 0.1 MG/DL (0.0-0.3); BILIRUBIN,TOTAL 0.2 MG/DL (0.2-1.0); PHOSPHORUS 2.3 MG/DL (2.5-4.9)
[2019-04-17] MEDS: D5W w/KCl 20mEq 1,000 ML IV SCH (16:51)
--- NOTE | 2019-04-17 18:15 | Progress Note ---
DATE: 04/16/2019 SUBJECTIVE: This is an 83-year-old male patient, is very depressed, confused. His mood labile. He has no logical plan for his own self care. This patient has mood lability, confusion, psychomotor agitation and agitation. He does require daily psychiatric consultation to stabilize his mood. . MENTAL STATUS EXAMINATION: This is an 83-year-old male. Appearance is disheveled. Attitude, irritable and agitated. Affect, guarded and restricted. Intellect, poor. Mood, depressed and anxious. Motor activity, psychomotor agitation. Attention span is poor. Orientation x2. Speech is pressured. Thought process, disorganized and illogical. Insight and judgment is poor. DIAGNOSIS: Major depressive disorder, severe, recurrent with psychotic features, rule out dementia with psychosis. PLAN: Treat the patient with Seroquel 50 mg twice a day, Risperdal 1 mg q.12 hours to reduce psychomotor agitation, Ativan 0.5 mg every 6 hours p.r.n. anxiety and agitation. A 20 minutes of cognitive behavioral therapy to help him identify his automatic negative thoughts and help him convert his negative thoughts to more positive thoughts to reduce depression, anxiety, mood lability. Chart reviewed. Discussed with staff. Seen and assessed at the bedside. Ami Hennessy M.D. DR: VINCENT JOB#: [id number] CC:
--- NOTE | 2019-04-17 19:25 | NUR ---
HAND-OFF: Report given to MATT New.
--- NOTE | 2019-04-17 19:30 | NUR ---
NURSE NOTES: Patient awake in bed, anxious as RNs doing their rounds. Gtube in place connected to feeding with binder. Oconnor cath intact and draining to gravity same with rectal tube. No complaints of pain at this time. Will continue to monitor.
[2019-04-17] MEDS: Dyna-Hex 2% Top Sol 2oz TOPIC SCH (20:00)
[2019-04-17] MEDS: LORazepam 0.5mg tab ORAL PRN (22:46)
[2019-04-18] VITALS: BP 118/40
--- NOTE | 2019-04-18 02:32 | NUR ---
NURSE NOTES: Received report from Farideh GUTIERREZ, patient is asleep, eyes closed, no acte distress noted, IV site is clean dry and intact, bed is in low position, locked, alarm is on, Gtube in place, feeding is continuous. Will continue to monitor for comfort and safety.
--- NOTE | 2019-04-18 02:50 | NUR ---
HAND-OFF: Report given to MATT Churchill.
[2019-04-18 04:00] VITALS: BP 111/61
[2019-04-18] MEDS: HydrALAZINE 50mg tab ORAL SCH ×3 (05:37→21:47)
[2019-04-18] MEDS: D5W w/KCl 20mEq 1,000 ML IV SCH ×2 (05:37→17:48)
[2019-04-18] MEDS: NovoLOG Insulin Flexpen SUBQ SCH ×4 (05:54→21:46)
--- NOTE | 2019-04-18 06:54 | NUR ---
HAND-OFF: Report given to Elana GUTIERREZ.
--- NOTE | 2019-04-18 07:43 | NUR ---
NURSE NOTES: Patient alert x2, forget full; on room air, no sing of distress and shortness of breath; IV Right-Wrist 22G D5W w/Kcl 20mEq 75cc running; Oconnor in place drains urine; Rectal Tube in place; Tube feeding Glucerna 1.5 running 50cc, no residual; patient had generalized edematous; side rails up x2, breaks engaged, bed at lowest position; will keep monitoring.
[2019-04-18 08:00] VITALS: BP 105/54
--- NOTE | 2019-04-18 08:52 | General Progress Note ---
Assessment/Plan Assessment/Plan: (1) Bladder cancer s/p resection (2) H/O CVA (3) Sacral decubitus ulcer Patient to be continued on Tylenol. D/w Dr. Ruelas and he concurred. Subjective Date patient seen: Apr 18, 2019 Time patient seen: 08:00 - am Allergies: Coded Allergies: No Known Allergies (Unverified , 12/20/18) Subjective Constitutional: Reports: no symptoms HEENT: Reports: no symptoms Cardiovascular: Reports: no symptoms Respiratory: Reports: no symptoms Gastrointestinal/Abdominal: Reports: no symptoms Genitourinary: Reports: no symptoms Neurologic/Psychiatric: Reports: weakness Endocrine: Reports: no symptoms Hematologic/Lymphatic: Reports: no symptoms Subjective Patient is in bed no c/o pain. He has been tolerating it well on the Tylenol. No new complaints at this time. Objective Last 24 Hour Vital Signs Date Time Temp Pulse Resp B/P (MAP) Pulse Ox O2 Delivery O2 Flow Rate FiO2 04/18/19 08:00 98.4 66 15 105/54 (71) 97 04/18/19 05:37 135/74 04/18/19 04:00 98.2 66 20 111/61 (78) 98 04/18/19 00:00 98.3 63 20 118/40 (66) 95 04/17/19 21:19 139/53 04/17/19 21:18 69 139/53 04/17/19 21:00 Room Air 04/17/19 20:00 98.4 89 19 148/51 (83) 99 04/17/19 16:00 98.1 67 18 137/69 (91) 97 04/17/19 13:40 131/61 04/17/19 12:00 98.9 61 14 131/61 (84) 96 04/17/19 09:43 65 18 100 04/17/19 09:42 63 18 100 04/17/19 09:40 64 143/60 04/17/19 09:00 Room Air 04/17/19 08:55 97.4 63 21 158/76 100 Nasal Cannula Intake and Output 04/17/19 04/18/19 19:00 07:00 Intake Total 1250 ml 850 ml Output Total 450 ml 125 ml Balance 800 ml 725 ml Free Water 200 ml 100 ml IV Total 600 ml 300 ml Tube Feeding 450 ml 450 ml Output Urine Total 450 ml Stool Total 125 ml # Bowel Movements 75 Height (Feet): 5 Height (Inches): 5.00 Weight (Pounds): 174 Objective General Appearance: no apparent distress, alert EENT: PERRL/EOMI, normal ENT inspection Neck: non-tender, normal alignment Cardiovascular: normal rate, regular rhythm Respiratory/Chest: decreased breath sounds Abdomen: other - obese Edema: trace edema Neurologic: alert, oriented x 3 Skin: warm/dry Jewel Frank Apr 18, 2019 08:52
[2019-04-18] MEDS: Carvedilol 12.5mg tab ORAL SCH ×2 (08:55→21:44)
[2019-04-18] MEDS: Tamsulosin 0.4mg cap ORAL SCH ×2 (08:55→17:43)
[2019-04-18] MEDS: Dronabinol 2.5mg Cap ORAL SCH (08:55)
[2019-04-18] MEDS: Memantine 5 MG TAB ORAL SCH ×2 (08:55→17:43)
[2019-04-18] MEDS: Bacitracin Oint UD TOPIC SCH (08:55)
--- NOTE | 2019-04-18 08:56 | General Progress Note ---
Assessment/Plan Assessment/Plan: Assessment/Plan Problems: (1) C. difficile colitis ICD Codes: A04.72 - Enterocolitis due to Clostridium difficile, not specified as recurrent SNOMED: 955274021 (2) Dehydration ICD Codes: E86.0 - Dehydration SNOMED: 63312116 (3) Anemia ICD Codes: D64.9 - Anemia, unspecified SNOMED: 389651449 Status: stable Assessment/Plan fecal occult blood stool positive x2 C. difficile positive diarrhea Antibiotics per infectious diseases off PPI IV and p.o. hydration plus electrolyte correction Monitor H&H, PRN transfusions off all laxatives We will follow with additional recommendations on a daily basis Ensure s/p IVC filter placement s/p PEG yesterday Subjective ROS Limited/Unobtainable: No Allergies: Coded Allergies: No Known Allergies (Unverified , 12/20/18) Objective Last 24 Hour Vital Signs Date Time Temp Pulse Resp B/P (MAP) Pulse Ox O2 Delivery O2 Flow Rate FiO2 04/18/19 08:00 98.4 66 15 105/54 (71) 97 04/18/19 05:37 135/74 04/18/19 04:00 98.2 66 20 111/61 (78) 98 04/18/19 00:00 98.3 63 20 118/40 (66) 95 04/17/19 21:19 139/53 04/17/19 21:18 69 139/53 04/17/19 21:00 Room Air 04/17/19 20:00 98.4 89 19 148/51 (83) 99 04/17/19 16:00 98.1 67 18 137/69 (91) 97 04/17/19 13:40 131/61 04/17/19 12:00 98.9 61 14 131/61 (84) 96 04/17/19 09:43 65 18 100 04/17/19 09:42 63 18 100 04/17/19 09:40 64 143/60 04/17/19 09:00 Room Air Intake and Output 04/17/19 04/18/19 19:00 07:00 Intake Total 1250 ml 850 ml Output Total 450 ml 125 ml Balance 800 ml 725 ml Free Water 200 ml 100 ml IV Total 600 ml 300 ml Tube Feeding 450 ml 450 ml Output Urine Total 450 ml Stool Total 125 ml # Bowel Movements 75 Height (Feet): 5 Height (Inches): 5.00 Weight (Pounds): 174 General Appearance: WD/WN EENT: normal ENT inspection Neck: supple Cardiovascular: normal rate Respiratory/Chest: decreased breath sounds Abdomen: normal bowel sounds, non tender, soft Extremities: non-tender Terell Valiente MD Apr 18, 2019 08:56
[2019-04-18] MEDS: Heparin 5000 units/ml inj SUBQ SCH ×2 (08:58→21:45)
--- NOTE | 2019-04-18 09:06 | General Progress Note ---
Assessment/Plan Problem List: (1) Invasive carcinoma of urinary bladder ICD Codes: C67.9 - Malignant neoplasm of bladder, unspecified SNOMED: 763380941 (2) Anemia ICD Codes: D64.9 - Anemia, unspecified SNOMED: 277561847 (3) Diabetes ICD Codes: E11.9 - Type 2 diabetes mellitus without complications SNOMED: 29530840 (4) HTN (hypertension) ICD Codes: I10 - Essential (primary) hypertension SNOMED: 61134940 (5) Urinary tract infection ICD Codes: N39.0 - Urinary tract infection, site not specified SNOMED: 73008934 (6) Bladder cancer ICD Codes: C67.9 - Malignant neoplasm of bladder, unspecified SNOMED: 031559329 Status: stable, progressing Assessment/Plan: pt diet eval 02 pulm tx abx uro f/u cbc bmp am advance diet if paco dc plan snf Subjective Constitutional: Reports: weakness Allergies: Coded Allergies: No Known Allergies (Unverified , 12/20/18) All Systems: reviewed and negative except above Subjective o2nc sleepy calm s/p gtube Objective Last 24 Hour Vital Signs Date Time Temp Pulse Resp B/P (MAP) Pulse Ox O2 Delivery O2 Flow Rate FiO2 04/18/19 08:55 66 105/54 04/18/19 08:00 98.4 66 15 105/54 (71) 97 04/18/19 05:37 135/74 04/18/19 04:00 98.2 66 20 111/61 (78) 98 04/18/19 00:00 98.3 63 20 118/40 (66) 95 04/17/19 21:19 139/53 04/17/19 21:18 69 139/53 04/17/19 21:00 Room Air 04/17/19 20:00 98.4 89 19 148/51 (83) 99 04/17/19 16:00 98.1 67 18 137/69 (91) 97 04/17/19 13:40 131/61 04/17/19 12:00 98.9 61 14 131/61 (84) 96 04/17/19 09:43 65 18 100 04/17/19 09:42 63 18 100 04/17/19 09:40 64 143/60 Intake and Output 04/17/19 04/18/19 19:00 07:00 Intake Total 1250 ml 850 ml Output Total 450 ml 125 ml Balance 800 ml 725 ml Free Water 200 ml 100 ml IV Total 600 ml 300 ml Tube Feeding 450 ml 450 ml Output Urine Total 450 ml Stool Total 125 ml # Bowel Movements 75 Laboratory Tests 04/18/19 08:55: White Blood Count [Pending], Red Blood Count [Pending], Hemoglobin [Pending], Hematocrit [Pending], Mean Corpuscular Volume [Pending], Mean Corpuscular Hemoglobin [Pending], Mean Corpuscular Hemoglobin Concent [Pending], Red Cell Distribution Width [Pending], Platelet Count [Pending], Mean Platelet Volume [ Pending], Neutrophils (%) (Auto) [Pending], Lymphocytes (%) (Auto) [Pending], Monocytes (%) (Auto) [Pending], Eosinophils (%) (Auto) [Pending], Basophils (%) (Auto) [Pending], Sodium Level [Pending], Potassium Level [Pending], Chloride Level [Pending], Carbon Dioxide Level [Pending], Blood Urea Nitrogen [Pending], Creatinine [Pending], Estimat Glomerular Filtration Rate [Pending], Glucose Level [Pending], Calcium Level [Pending] Height (Feet): 5 Height (Inches): 5.00 Weight (Pounds): 174 General Appearance: lethargic EENT: normal ENT inspection Neck: normal alignment Cardiovascular: normal peripheral pulses, normal rate, regular rhythm Respiratory/Chest: chest wall non-tender, lungs clear, normal breath sounds Abdomen: normal bowel sounds, non tender, soft Extremities: normal inspection Edema: no edema noted Arm (L), no edema noted Arm (R), no edema noted Leg (L), no edema noted Leg (R), no edema noted Pedal (L), no edema noted Pedal (R), no edema noted Generalized Neurologic: motor weakness Skin: normal pigmentation, warm/dry Jamie Gray DO Apr 18, 2019 09:06
[2019-04-18 09:07] LABS: BASOPHILS % (AUTO) 0.2 % (0.0-2.0); EOSINOPHILS % (AUTO) 0.6 % (0.0-3.0); HEMATOCRIT 26.4 % (42.0-52.0); HEMOGLOBIN 8.2 G/DL (14.2-18.0); LYMPHOCYTES % (AUTO) 13.6 % (20.0-45.0); MEAN CORPUSCULAR VOLUME 91 FL (80-99); MONOCYTES % (AUTO) 13.2 % (1.0-10.0); NEUTROPHILS % (AUTO) 72.4 % (45.0-75.0); PLATELET COUNT 131 K/UL (150-450); RED BLOOD COUNT 2.91 M/UL (4.70-6.10); RED CELL DISTRIBUTION WIDTH 18.2 % (11.6-14.8); WHITE BLOOD COUNT 5.6 K/UL (4.8-10.8)
--- NOTE | 2019-04-18 09:07 | Nephrology Progress Note ---
Assessment/Plan Problem List: (1) ARF (acute renal failure) (2) Acute on chronic renal insufficiency (3) Diabetes (4) HTN (hypertension) (5) Bladder cancer (6) Invasive carcinoma of urinary bladder (7) Anemia Assessment Acute renal failure ? Superimposed CKD Bladder Mass / h/o Hematuria HTN DM Anemia, previous transfusions s/p Cystoscopy 12/28 Plan labs pending hardly takes PO meds med-surg favor transfusion Hydrate richardson IV Iron K Supplement BP management, BP med adjustment Monitor lytes and renal parameters Kidney ESDRAS , no hydro per orders Previous Uro note: Tolerated bladder tumor resection well. Unfortunately greater part of the bladder is involved and essentially replaced all normal bladder with tumor. I can not resect all the tumors. Patient needs a radical cystectomy (removal of bladder) or radiation/chemotherapy at higher level of care. 1. recommend transfer to higher level of care for cystectomy 2. continue richardson, keep irrigation to maintain light pink urine. Multiple mass like lesions within the bladder. Further evaluation with cystoscopy is recommended to evaluate for possible neoplasm. Multiple parapelvic renal cysts Subjective ROS Limited/Unobtainable: No Constitutional: Reports: malaise, weakness Objective Objective Last 24 Hour Vital Signs Date Time Temp Pulse Resp B/P (MAP) Pulse Ox O2 Delivery O2 Flow Rate FiO2 04/18/19 08:55 66 105/54 04/18/19 08:00 98.4 66 15 105/54 (71) 97 04/18/19 05:37 135/74 04/18/19 04:00 98.2 66 20 111/61 (78) 98 04/18/19 00:00 98.3 63 20 118/40 (66) 95 04/17/19 21:19 139/53 04/17/19 21:18 69 139/53 04/17/19 21:00 Room Air 04/17/19 20:00 98.4 89 19 148/51 (83) 99 04/17/19 16:00 98.1 67 18 137/69 (91) 97 04/17/19 13:40 131/61 04/17/19 12:00 98.9 61 14 131/61 (84) 96 04/17/19 09:43 65 18 100 04/17/19 09:42 63 18 100 04/17/19 09:40 64 143/60 Intake and Output 04/17/19 04/18/19 19:00 07:00 Intake Total 1250 ml 850 ml Output Total 450 ml 125 ml Balance 800 ml 725 ml Free Water 200 ml 100 ml IV Total 600 ml 300 ml Tube Feeding 450 ml 450 ml Output Urine Total 450 ml Stool Total 125 ml # Bowel Movements 75 Laboratory Tests 04/18/19 08:55: White Blood Count [Pending], Red Blood Count [Pending], Hemoglobin [Pending], Hematocrit [Pending], Mean Corpuscular Volume [Pending], Mean Corpuscular Hemoglobin [Pending], Mean Corpuscular Hemoglobin Concent [Pending], Red Cell Distribution Width [Pending], Platelet Count [Pending], Mean Platelet Volume [ Pending], Neutrophils (%) (Auto) [Pending], Lymphocytes (%) (Auto) [Pending], Monocytes (%) (Auto) [Pending], Eosinophils (%) (Auto) [Pending], Basophils (%) (Auto) [Pending], Sodium Level [Pending], Potassium Level [Pending], Chloride Level [Pending], Carbon Dioxide Level [Pending], Blood Urea Nitrogen [Pending], Creatinine [Pending], Estimat Glomerular Filtration Rate [Pending], Glucose Level [Pending], Calcium Level [Pending] Height (Feet): 5 Height (Inches): 5.00 Weight (Pounds): 174 General Appearance: no apparent distress Objective no change Russell Sofia MD Apr 18, 2019 09:07
[2019-04-18 10:00] LABS: ANION GAP 7 mmol/L (5-15); BLOOD UREA NITROGEN 19 mg/dL (7-18); CALCIUM 7.3 MG/DL (8.5-10.1); CARBON DIOXIDE 21 MMOL/L (21-32); CHLORIDE 107 MMOL/L (98-107); CREATININE 2.1 MG/DL (0.55-1.30); SODIUM 135 MMOL/L (136-145)
--- NOTE | 2019-04-18 11:02 | NUR ---
RD ASSESSMENT & RECOMMENDATIONS SEE CARE ACTIVITY FOR COMPLETE ASSESSMENT DAILY ESTIMATED NEEDS: Needs based on wounds, cancer, obese; 84kg adj 20-25 kcals/kg 1680- 2100 total kcals 1.25-1.5 g protein/kg 84- 126 g total protein 25-30 mL/kg 2100- 2520 total fluid mLs NUTRITION DIAGNOSIS: 1) Increased protein needs r/t wounds AEb multiple full thickness wounds, refer to eval. 2) Swallowing difficulty r/t dysphagia AEB [facility] eval, currently on liquify puree texture diet w/ NTL-> now s/p PEG placement. 3) Altered nutrition related lab values r/t clinical status as evidenced by elev BG (203 216), Na 150- wnl, K 3.1- wnl, elev BUN/ creat now trending down. (CURRENT TF: Glucerna 1.5 @50 ml /hr x24 hrs) ENTERAL NUTRITION RECOMMENDATIONS: Glucerna 1.5 @55mL/hr x 24 hrs to provide 1320mL, 1980kcal, 109g pro, 1001mL free H2O - With continued poor po intake, consider non oral feeds if c/w POC -> obtain GI access. - Initiate Glucerna 1.5 @15mL/hr, advancing 10mL/hr q4-6 hrs until @ goal. - HOB > 30 degrees. - Flush per MD. ---- MONITOR RENAL LABS AND NEED TO CHANGE TF TO RENAL FORMULA. K trending up-> 5.0 now. ADDITIONAL RECOMMENDATIONS: 1) Re-calibrate bed scale w/ added P200 mattress for accurate CBW 2) Monitor lytes, need for TF change to NEPRO (K now 5.0) 3) Wound care: Ananda in 4oz water BID via GT + Vit C/ dosing per Renal MD 4) Consider long acting insulin w/ 24 hrs TF feeds. . .
--- NOTE | 2019-04-18 11:30 | NUR ---
NURSE NOTES: Wound care provided by wound care nurse.
[2019-04-18 12:00] VITALS: BP 101/46
--- NOTE | 2019-04-18 13:10 | Infectious Diseases Prog Note ---
Assessment/Plan Assessment/Plan 83yo gentleman with PMH below presents from long-term with confusion, wheezing and desaturation between 83-90%. Pt is oriented to self. Does not know where he is or why he is in the hospital. He initially says yes to abdominal pain, suprapubic pain, leg pain, arm pain but then denied it on second question. Denies fever, chills, cough, sob, diarrhea, dysuria. Unclear baseline. Pt recently had blood transfusion at [facility] 03/06. Pt was recently diagnosed with bladder cancer 12/2018 Afebrile On RA No leukocytosis No lactic acidosis Hypoxia at long-term, SP Possible PNA? flu swab negative CXR: Mild diffuse airspace opacities in both lungs. Lungs are underinflated.Lung findings are likely due to underinflation rather than pulmonary edema or atelectasis. Possible UTI? UA WBC TNTC, also moderate epithelial cells UCx: 50-60K amp sensitive E faecalis E faecalis bacteremia likely / UTI 04/01 BCx: E faecalis 04/02 BCx: neg TTE without vegetation C diff + 04/04- still having diarrhea Acute DVT pending IVC filter RIGHT LEG: Venous imaging reveals acute thrombus in the common to superficial femoral veins. LEFT LEG: Venous imaging reveals acute thrombus in the common to superficial femoral veins. SP IVC filter 04/06 Hypokalemia MRSA screen negative ANGELA on CKD CAD Bladder cancer HTN DM CVA Dyslipidemia CKD Anemia BPH Plan: Continue PO Dificid 200mg bid #3/-14 given continued diarrhea -04/16 SP PO Vancomycin #13 -04/15 SP IV Vancomycin #14 -04/13 SP Flagyl #4 -04/09 SP Cefepime #8 aspiration precaution, elevate HOB monitor temp and CBC needs 48hrs diarrhea free to discontinue isolation Thank you for this consult. [facility] will continue to follow the patient with you. Subjective Allergies: Coded Allergies: No Known Allergies (Unverified , 12/20/18) Subjective afebrile no leukocytosis Objective Vital Signs Last 24 Hour Vital Signs Date Time Temp Pulse Resp B/P (MAP) Pulse Ox O2 Delivery O2 Flow Rate FiO2 04/18/19 12:00 99.7 71 16 101/46 (64) 97 04/18/19 09:00 Room Air 04/18/19 08:55 66 105/54 04/18/19 08:00 98.4 66 15 105/54 (71) 97 04/18/19 05:37 135/74 04/18/19 04:00 98.2 66 20 111/61 (78) 98 04/18/19 00:00 98.3 63 20 118/40 (66) 95 04/17/19 21:19 139/53 04/17/19 21:18 69 139/53 04/17/19 21:00 Room Air 04/17/19 20:00 98.4 89 19 148/51 (83) 99 04/17/19 16:00 98.1 67 18 137/69 (91) 97 04/17/19 13:40 131/61 Height (Feet): 5 Height (Inches): 5.00 Weight (Pounds): 174 Objective Constitutional: Denies: no symptoms, chills, fever, malaise, weakness, other HEENT: Denies: no symptoms, eye pain, blurred vision, tearing, double vision, ear pain, ear discharge, nose pain, nose congestion, throat pain, throat swelling, mouth pain, mouth swelling, other Cardiovascular: Denies: no symptoms, chest pain, edema, irregular heart rate, lightheadedness, palpitations, syncope, other Respiratory: Denies: no symptoms, cough, shortness of breath, SOB with excertion, SOB at rest, sputum, wheezing, other Neurologic/Psychiatric: Denies: no symptoms, anxiety, depressed, emotional problems, headache, numbness, paresthesia, pre-existing deficit, seizure, tingling, tremors, weakness, other Endocrine: Denies: no symptoms, excessive sweating, flushing, intolerance to cold, intolerance to heat, increased hunger, increased thirst, increased urine, unexplained weight gain, unexplained weight loss, other Microbiology Date/Time Source Procedure Growth Status 04/15/19 16:10 Penis Gram Stain - Final Resulted 04/15/19 16:10 Wound Culture - Preliminary Pseudomonas Aeruginosa Kaylie Albicans Resulted Laboratory Tests Test 04/18/19 08:55 White Blood Count 5.6 K/UL (4.8-10.8) Red Blood Count 2.91 M/UL (4.70-6.10) L Hemoglobin 8.2 G/DL (14.2-18.0) L Hematocrit 26.4 % (42.0-52.0) L Mean Corpuscular Volume 91 FL (80-99) Mean Corpuscular Hemoglobin 28.1 PG (27.0-31.0) Mean Corpuscular Hemoglobin Concent 30.9 G/DL (32.0-36.0) L Red Cell Distribution Width 18.2 % (11.6-14.8) H Platelet Count 131 K/UL (150-450) L Mean Platelet Volume 7.0 FL (6.5-10.1) Neutrophils (%) (Auto) 72.4 % (45.0-75.0) Lymphocytes (%) (Auto) 13.6 % (20.0-45.0) L Monocytes (%) (Auto) 13.2 % (1.0-10.0) H Eosinophils (%) (Auto) 0.6 % (0.0-3.0) Basophils (%) (Auto) 0.2 % (0.0-2.0) Sodium Level 135 MMOL/L (136-145) L Potassium Level 5.0 MMOL/L (3.5-5.1) Chloride Level 107 MMOL/L (98-107) Carbon Dioxide Level 21 MMOL/L (21-32) Anion Gap 7 mmol/L (5-15) Blood Urea Nitrogen 19 mg/dL (7-18) H Creatinine 2.1 MG/DL (0.55-1.30) H Estimat Glomerular Filtration Rate mL/min (>60) Glucose Level 176 MG/DL (74-106) H Calcium Level 7.3 MG/DL (8.5-10.1) L Current Medications Medications (Trade) Dose Ordered Sig/Sallie Route PRN Reason Start Time Stop Time Status Last Admin Dose Admin Acetaminophen (Tylenol) 650 mg Q4H PRN ORAL fever 04/06/19 14:00 05/01/19 13:59 Acetaminophen (Tylenol) 650 mg Q4H PRN ORAL Mild Pain/Temp > 100.5 04/13/19 16:15 05/13/19 16:14 04/17/19 22:46 Allopurinol (Allopurinol) 300 mg DAILY ORAL 04/07/19 09:00 05/03/19 09:59 04/18/19 08:55 Carvedilol (Coreg) 12.5 mg EVERY 12 HOURS ORAL 04/06/19 21:00 05/01/19 08:59 04/18/19 08:55 Chlorhexidine Gluconate (Abril-Hex 2%) 1 applic DAILY@2000 TOPIC 04/16/19 20:00 05/16/19 19:59 Dextrose (Dextrose 50%) 25 ml Q30M PRN IV Hypoglycemia 04/06/19 14:00 05/01/19 10:29 Dextrose (Dextrose 50%) 50 ml Q30M PRN IV Hypoglycemia 04/06/19 14:00 05/01/19 10:29 Dextrose/ Electrolytes 1,000 ml @ 75 mls/hr [id number] IV 04/06/19 13:30 05/04/19 09:59 04/18/19 05:37 Fidaxomicin (Dificid) 200 mg EVERY 12 HOURS ORAL 04/16/19 21:00 04/23/19 20:59 04/18/19 08:56 Heparin Sodium (Porcine) (Heparin 5000 units/ml) 5,000 units EVERY 12 HOURS SUBQ 04/06/19 21:00 05/01/19 08:59 04/17/19 21:21 Heparin Sodium/ Sodium Chloride (Heparin 1000 units/500ml Premix) 1,000 unit ONCE PRN IV picc line placement 04/16/19 15:15 04/18/19 15:14 Hydralazine HCl (Apresoline) 50 mg Q8HR ORAL 04/06/19 14:00 05/01/19 13:59 04/18/19 05:37 Insulin Aspart (NovoLOG) BEFORE MEALS AND HS SUBQ 04/06/19 16:30 05/01/19 11:29 04/18/19 12:06 Lansoprazole (Prevacid) 30 mg DAILY GT 04/17/19 09:00 05/17/19 08:59 04/18/19 08:55 Lidocaine HCl (Xylocaine 1% 30ml) 30 ml ONCE PRN INJ picc line placement 04/16/19 15:15 04/18/19 15:14 Lorazepam (Ativan) 0.5 mg Q6H PRN ORAL For Anxiety 04/11/19 13:30 04/18/19 13:29 04/17/19 22:46 Memantine (Namenda) 5 mg BID ORAL 04/11/19 18:00 05/11/19 17:59 04/18/19 08:55 Minoxidil (Loniten) 2.5 mg Q4H PRN ORAL bp over 165 syst 04/06/19 14:00 05/01/19 13:59 Ondansetron HCl (Zofran) 4 mg Q6H PRN IVP Nausea & Vomiting 04/06/19 14:00 05/01/19 07:59 04/13/19 20:19 Quetiapine Fumarate (SEROqueL) 50 mg TWICE A DAY ORAL 04/06/19 18:00 05/03/19 17:59 04/18/19 08:55 Risperidone (RisperDAL) 1 mg Q12HR ORAL 04/12/19 15:00 05/12/19 14:59 04/18/19 08:55 Tamsulosin HCl (Flomax) 0.4 mg BID ORAL 04/06/19 18:00 05/01/19 12:59 04/18/19 08:55 Jyoti Piedra M.D. Apr 18, 2019 13:10
--- NOTE | 2019-04-18 14:02 | Hematology/Onc Progress Note ---
Assessment/Plan Assessment/Plan Assessment and Recs: # ACUTE DEEP VEIN THROMBOSIS BILATERAL, new onset, from 04/02/19 s/p IVC filter on 05/06/[address] Arroyo --> reviewed images with radiology, goes from common to proximal common femoral v ein --> V/Q scan --> shows low prob pe --> given low h/h and low plts, recommend ivc filter placement, consent has been signed --> cleared with other consultants, zen RN --> s/p IVC filter by Dr Arroyo 04/06 --> hold off on anticoagulation until h/h other counts stabilize # Bladder cancer requires resection v chemo/xrt -- presented with multi masses CT shows Scattered eccentric mural thickening/masses in the urinary bladder wall , correlating with findings on recent ultrasound. No significant perivesical stranding. Recommend further evaluation with cystoscopy. --> urology consulted, appreciate input --> Uro note from prior admission: Tolerated bladder tumor resection well. Unfortunately greater part of the bladder is involved and essentially replaced all normal bladder with tumor. I can not resect all the tumors. --> may consider chemo/radiation as outpatient --> path does confirm malignancy --> CBI as needed per uro # Pancytopenia - potential causes multifactorial, evaluate liver and viral etiologies to begin, also could be related to underlying medications patient has received. --> Hep panel and HIV --> NEGATIVE --> US abd showed bladder masses--> ct reviewed as well --> Peripheral smear ordered to evaluate for blasts /schistocytes --> none noted --> abx and other meds have been reviewed --> ok for ppx if plt >50k w/ either heparin or lovenox --> trend plt >92-->104-->86-->73-->117k-->133k --> wbc trend 3.7-->4.1-->4.7 # Anemia of iron deficiency likely due to hematuria --> iv iron x 5 days low ferritin, completed from prior admission --> likely due to hematuria --> have started on ivf and consider uro prn cysto --> hgb goal >7 --> cont po folic acid --> hgb trend: 7.4-->8.4 --> as per gi at some point may need egd/colo # Acute renal injury --> cr >1.4-->1.4-->1.7-->1.5-->3.7->1.8-->2 --> per renal recs --> volume expansion # HTN --> cards is following, appreciate recs # C. diff colitis --> on po vanc/flagyl --> per id # Hematuria --> improved # UTI (urinary tract infection) --> per id on abx, cefe/vanc # Scrotal lesions --> per surg eval --> as per wound care # Dehydration # Dvt ppx heparin sq and ivf filter The timing of this note does not necessarily reflect the time of the patient was seen. GREATLY APPRECIATE CONSULTATION. Subjective Allergies: Coded Allergies: No Known Allergies (Unverified , 12/20/18) Subjective 04/03: s/p 1 bag iv iron, hgb 7.4, repeat cbc tomorrow, consent for ivc filter has been signed 04/04: is pending clearance of blood cultures, have dw id, potentially thurs for ivcf placement 04/05: no events, still pending ivc filter, have dw rn and id 04/06: no events, no bleeding, pending filter, as per id clearance 04/08: tolerated ivc filter well on 04/06, no events, no bleeding reported 04/09: no events, remains confused is on 2l nc, zen rn 04/10: no events, with lesion noted on penile shaft, no bleeding noted 04/11: no events, tolerated only half of vanc, plt 101, ok to give heparin sq 04/12: on ensure, no bleeding, labs noted, wbc lower, no major changes 04/13: remains confused, labs noted from yesterday, on abx 04/14: no major changes, therahoney dressing changes, no bleeding, labs reviewed 04/15: awake and alert, no acute events, on room air, cbc ordered .2: no f/c, no major changes, labs reviewed, ++rt and +richardson 04/17: potential for peg, procedure, no bleeding, labs reviewed Objective Objective Current Medications Medications (Trade) Dose Ordered Sig/Sallie Route PRN Reason Start Time Stop Time Status Last Admin Dose Admin Acetaminophen (Tylenol) 650 mg Q4H PRN ORAL fever 04/06/19 14:00 05/01/19 13:59 Acetaminophen (Tylenol) 650 mg Q4H PRN ORAL Mild Pain/Temp > 100.5 04/13/19 16:15 05/13/19 16:14 04/17/19 22:46 Allopurinol (Allopurinol) 300 mg DAILY ORAL 04/07/19 09:00 05/03/19 09:59 04/18/19 08:55 Carvedilol (Coreg) 12.5 mg EVERY 12 HOURS ORAL 04/06/19 21:00 05/01/19 08:59 04/18/19 08:55 Chlorhexidine Gluconate (Abril-Hex 2%) 1 applic DAILY@2000 TOPIC 04/16/19 20:00 05/16/19 19:59 Dextrose (Dextrose 50%) 25 ml Q30M PRN IV Hypoglycemia 04/06/19 14:00 05/01/19 10:29 Dextrose (Dextrose 50%) 50 ml Q30M PRN IV Hypoglycemia 04/06/19 14:00 05/01/19 10:29 Dextrose/ Electrolytes 1,000 ml @ 75 mls/hr [id number] IV 04/06/19 13:30 05/04/19 09:59 04/18/19 05:37 Fidaxomicin (Dificid) 200 mg EVERY 12 HOURS ORAL 04/16/19 21:00 04/23/19 20:59 04/18/19 08:56 Heparin Sodium (Porcine) (Heparin 5000 units/ml) 5,000 units EVERY 12 HOURS SUBQ 04/06/19 21:00 05/01/19 08:59 04/17/19 21:21 Heparin Sodium/ Sodium Chloride (Heparin 1000 units/500ml Premix) 1,000 unit ONCE PRN IV picc line placement 04/16/19 15:15 04/18/19 15:14 Hydralazine HCl (Apresoline) 50 mg Q8HR ORAL 04/06/19 14:00 05/01/19 13:59 04/18/19 05:37 Insulin Aspart (NovoLOG) BEFORE MEALS AND HS SUBQ 04/06/19 16:30 05/01/19 11:29 04/18/19 12:06 Lansoprazole (Prevacid) 30 mg DAILY GT 04/17/19 09:00 05/17/19 08:59 04/18/19 08:55 Lidocaine HCl (Xylocaine 1% 30ml) 30 ml ONCE PRN INJ picc line placement 04/16/19 15:15 04/18/19 15:14 Memantine (Namenda) 5 mg BID ORAL 04/11/19 18:00 05/11/19 17:59 04/18/19 08:55 Minoxidil (Loniten) 2.5 mg Q4H PRN ORAL bp over 165 syst 04/06/19 14:00 05/01/19 13:59 Ondansetron HCl (Zofran) 4 mg Q6H PRN IVP Nausea & Vomiting 04/06/19 14:00 05/01/19 07:59 04/13/19 20:19 Quetiapine Fumarate (SEROqueL) 50 mg TWICE A DAY ORAL 04/06/19 18:00 05/03/19 17:59 04/18/19 08:55 Risperidone (RisperDAL) 1 mg Q12HR ORAL 04/12/19 15:00 05/12/19 14:59 04/18/19 08:55 Tamsulosin HCl (Flomax) 0.4 mg BID ORAL 04/06/19 18:00 05/01/19 12:59 04/18/19 08:55 Last 24 Hour Vital Signs Date Time Temp Pulse Resp B/P (MAP) Pulse Ox O2 Delivery O2 Flow Rate FiO2 04/18/19 12:00 99.7 71 16 101/46 (64) 97 04/18/19 09:00 Room Air 04/18/19 08:55 66 105/54 04/18/19 08:00 98.4 66 15 105/54 (71) 97 04/18/19 05:37 135/74 04/18/19 04:00 98.2 66 20 111/61 (78) 98 04/18/19 00:00 98.3 63 20 118/40 (66) 95 04/17/19 21:19 139/53 04/17/19 21:18 69 139/53 04/17/19 21:00 Room Air 04/17/19 20:00 98.4 89 19 148/51 (83) 99 04/17/19 16:00 98.1 67 18 137/69 (91) 97 04/17/19 13:40 131/61 04/17/19 12:00 98.9 61 14 131/61 (84) 96 04/17/19 09:43 65 18 100 04/17/19 09:42 63 18 100 04/17/19 09:40 64 143/60 04/17/19 09:00 Room Air 04/17/19 08:55 97.4 63 21 158/76 100 Nasal Cannula 04/17/19 08:45 65 22 153/74 100 Nasal Cannula 04/17/19 08:40 64 22 153/74 100 Nasal Cannula 04/17/19 08:38 97.2 62 20 162/72 100 Nasal Cannula 04/17/19 04:00 97.7 62 17 126/55 (78) 99 04/16/19 23:59 98.7 62 17 118/53 (74) 97 04/16/19 21:55 160/60 04/16/19 21:00 Room Air 04/16/19 20:41 71 133/65 04/16/19 20:00 98.9 71 18 133/65 (87) 98 04/16/19 16:00 97.5 76 18 129/59 (82) 96 04/16/19 14:13 131/61 Intake and Output 04/17/19 04/18/19 18:59 06:59 Intake Total 1200 ml 900 ml Output Total 450 ml 125 ml Balance 750 ml 775 ml Free Water 200 ml 100 ml IV Total 600 ml 300 ml Tube Feeding 400 ml 500 ml Output Urine Total 450 ml Stool Total 125 ml # Bowel Movements 75 Labs Test 04/16/19 06:35 04/16/19 06:55 04/17/19 04:20 04/18/19 08:55 Phosphorus Level 5.8 MG/DL (2.5-4.9) 2.3 MG/DL (2.5-4.9) Magnesium Level 1.6 MG/DL (1.8-2.4) 2.2 MG/DL (1.8-2.4) Total Bilirubin 0.8 MG/DL (0.2-1.0) 0.2 MG/DL (0.2-1.0) Direct Bilirubin 0.6 MG/DL (0.0-0.3) < 0.1 MG/DL (0.0-0.3) Aspartate Amino Transf (AST/SGOT) 31 U/L (15-37) 17 U/L (15-37) Alanine Aminotransferase (ALT/SGPT) 16 U/L (12-78) 7 U/L (12-78) Alkaline Phosphatase 153 U/L (46-116) 52 U/L (46-116) Total Protein 5.7 G/DL (6.4-8.2) 5.5 G/DL (6.4-8.2) Albumin 1.5 G/DL (3.4-5.0) 1.5 G/DL (3.4-5.0) White Blood Count 5.5 K/UL (4.8-10.8) 4.7 K/UL (4.8-10.8) 5.6 K/UL (4.8-10.8) Red Blood Count 3.36 M/UL (4.70-6.10) 3.02 M/UL (4.70-6.10) 2.91 M/UL (4.70-6.10) Hemoglobin 9.6 G/DL (14.2-18.0) 8.6 G/DL (14.2-18.0) 8.2 G/DL (14.2-18.0) Hematocrit 30.7 % (42.0-52.0) 27.8 % (42.0-52.0) 26.4 % (42.0-52.0) Mean Corpuscular Volume 91 FL (80-99) 92 FL (80-99) 91 FL (80-99) Mean Corpuscular Hemoglobin 28.6 PG (27.0-31.0) 28.5 PG (27.0-31.0) 28.1 PG (27.0-31.0) Mean Corpuscular Hemoglobin Concent 31.4 G/DL (32.0-36.0) 30.9 G/DL (32.0-36.0) 30.9 G/DL (32.0-36.0) Red Cell Distribution Width 18.0 % (11.6-14.8) 18.3 % (11.6-14.8) 18.2 % (11.6-14.8) Platelet Count 128 K/UL (150-450) 133 K/UL (150-450) 131 K/UL (150-450) Mean Platelet Volume 7.6 FL (6.5-10.1) 8.5 FL (6.5-10.1) 7.0 FL (6.5-10.1) Neutrophils (%) (Auto) 76.1 % (45.0-75.0) 71.0 % (45.0-75.0) 72.4 % (45.0-75.0) Lymphocytes (%) (Auto) 12.3 % (20.0-45.0) 12.6 % (20.0-45.0) 13.6 % (20.0-45.0) Monocytes (%) (Auto) 10.3 % (1.0-10.0) 15.1 % (1.0-10.0) 13.2 % (1.0-10.0) Eosinophils (%) (Auto) 0.3 % (0.0-3.0) 0.8 % (0.0-3.0) 0.6 % (0.0-3.0) Basophils (%) (Auto) 1.0 % (0.0-2.0) 0.6 % (0.0-2.0) 0.2 % (0.0-2.0) Sodium Level 135 MMOL/L (136-145) 134 MMOL/L (136-145) 135 MMOL/L (136-145) Potassium Level 4.6 MMOL/L (3.5-5.1) 4.7 MMOL/L (3.5-5.1) 5.0 MMOL/L (3.5-5.1) Chloride Level 107 MMOL/L (98-107) 106 MMOL/L (98-107) 107 MMOL/L (98-107) Carbon Dioxide Level 16 MMOL/L (21-32) 19 MMOL/L (21-32) 21 MMOL/L (21-32) Anion Gap 12 mmol/L (5-15) 9 mmol/L (5-15) 7 mmol/L (5-15) Blood Urea Nitrogen 18 mg/dL (7-18) 17 mg/dL (7-18) 19 mg/dL (7-18) Creatinine 2.0 MG/DL (0.55-1.30) 2.0 MG/DL (0.55-1.30) 2.1 MG/DL (0.55-1.30) Estimat Glomerular Filtration Rate mL/min (>60) mL/min (>60) mL/min (>60) Glucose Level 142 MG/DL (74-106) 213 MG/DL (74-106) 176 MG/DL (74-106) Calcium Level 7.6 MG/DL (8.5-10.1) 7.4 MG/DL (8.5-10.1) 7.3 MG/DL (8.5-10.1) Prothrombin Time 12.2 SEC (9.30-11.50) Prothromb Time International Ratio 1.2 (0.9-1.1) Activated Partial Thromboplast Time 27 SEC (23-33) Height (Feet): 5 Height (Inches): 5.00 Weight (Pounds): 174 Objective Physical Exam Vital Signs: have been reviewed General Appearance: non-toxic, obese, Chronically Ill Respiratory: chest non-tender, lungs clear, mirian BSs, no rhonchi Cardiovascular: normal inspection, regular rate, rhythm, GI: normal inspection, soft Genitourinary: RICHARDSON+ Musculoskeletal: normal inspection Neurologic: normal inspection, alert Psychiatric: normal inspection Skin: other - Marcelo Shen MD Apr 18, 2019 14:02
--- NOTE | 2019-04-18 14:19 | Pulmonology Progress Note ---
Assessment/Plan Problems: (1) C. difficile colitis (2) Acute respiratory failure with hypoxemia (3) Acute deep vein thrombosis (DVT) of both femoral veins (4) Thrombocytopenia (5) Invasive carcinoma of urinary bladder (6) CAD (coronary artery disease) (7) Anemia (8) Diabetes (9) HTN (hypertension) (10) Bladder cancer Assessment/Plan still has diarrhea refused V/q scan tolerating Gtube renal function improving V/q scan showed low probability PE venous studies of legs showed acute DVT bilaterally IVC filter done respiratory treatment check electrolytes titrate fiio2 to sat of 92% dvt prophylaxis. renal function improving Subjective ROS Limited/Unobtainable: No Constitutional: Reports: no symptoms HEENT: Repors: no symptoms Allergies: Coded Allergies: No Known Allergies (Unverified , 12/20/18) Objective Last 24 Hour Vital Signs Date Time Temp Pulse Resp B/P (MAP) Pulse Ox O2 Delivery O2 Flow Rate FiO2 04/18/19 12:00 99.7 71 16 101/46 (64) 97 04/18/19 09:00 Room Air 04/18/19 08:55 66 105/54 04/18/19 08:00 98.4 66 15 105/54 (71) 97 04/18/19 05:37 135/74 04/18/19 04:00 98.2 66 20 111/61 (78) 98 04/18/19 00:00 98.3 63 20 118/40 (66) 95 04/17/19 21:19 139/53 04/17/19 21:18 69 139/53 04/17/19 21:00 Room Air 04/17/19 20:00 98.4 89 19 148/51 (83) 99 04/17/19 16:00 98.1 67 18 137/69 (91) 97 Intake and Output 04/17/19 04/18/19 18:59 06:59 Intake Total 1200 ml 900 ml Output Total 450 ml 125 ml Balance 750 ml 775 ml Free Water 200 ml 100 ml IV Total 600 ml 300 ml Tube Feeding 400 ml 500 ml Output Urine Total 450 ml Stool Total 125 ml # Bowel Movements 75 Objective HEENT: normocephalic, atraumatic Respiratory/Chest: chest wall non-tender, normal breath sounds Cardiovascular: normal rate, regular rhythm Abdomen: normal bowel sounds, soft, non tender Genitourinary: normal external genitalia Extremities: no cyanosis Skin: no rash, no lesions Microbiology Date/Time Source Procedure Growth Status 04/15/19 16:10 Penis Gram Stain - Final Resulted 04/15/19 16:10 Wound Culture - Preliminary Pseudomonas Aeruginosa Kaylie Albicans Resulted Laboratory Tests 04/18/19 08:55: White Blood Count 5.6, Red Blood Count 2.91L, Hemoglobin 8.2L, Hematocrit 26.4L , Mean Corpuscular Volume 91, Mean Corpuscular Hemoglobin 28.1, Mean Corpuscular Hemoglobin Concent 30.9L, Red Cell Distribution Width 18.2H, Platelet Count 131L, Mean Platelet Volume 7.0, Neutrophils (%) (Auto) 72.4, Lymphocytes (%) (Auto) 13.6L, Monocytes (%) (Auto) 13.2H, Eosinophils (%) (Auto ) 0.6, Basophils (%) (Auto) 0.2, Sodium Level 135L, Potassium Level 5.0, Chloride Level 107, Carbon Dioxide Level 21, Anion Gap 7, Blood Urea Nitrogen 19H, Creatinine 2.1H, Estimat Glomerular Filtration Rate , Glucose Level 176H, Calcium Level 7.3L Current Medications Medications (Trade) Dose Ordered Sig/Sallie Route PRN Reason Start Time Stop Time Status Last Admin Dose Admin Acetaminophen (Tylenol) 650 mg Q4H PRN ORAL fever 04/06/19 14:00 05/01/19 13:59 Acetaminophen (Tylenol) 650 mg Q4H PRN ORAL Mild Pain/Temp > 100.5 04/13/19 16:15 05/13/19 16:14 04/17/19 22:46 Allopurinol (Allopurinol) 300 mg DAILY ORAL 04/07/19 09:00 05/03/19 09:59 04/18/19 08:55 Carvedilol (Coreg) 12.5 mg EVERY 12 HOURS ORAL 04/06/19 21:00 05/01/19 08:59 04/18/19 08:55 Chlorhexidine Gluconate (Abril-Hex 2%) 1 applic DAILY@1999 TOPIC 04/16/19 20:00 05/16/19 19:59 Dextrose (Dextrose 50%) 25 ml Q30M PRN IV Hypoglycemia 04/06/19 14:00 05/01/19 10:29 Dextrose (Dextrose 50%) 50 ml Q30M PRN IV Hypoglycemia 04/06/19 14:00 05/01/19 10:29 Dextrose/ Electrolytes 1,000 ml @ 75 mls/hr [id number] IV 04/06/19 13:30 05/04/19 09:59 04/18/19 05:37 Fidaxomicin (Dificid) 200 mg EVERY 12 HOURS ORAL 04/16/19 21:00 04/23/19 20:59 04/18/19 08:56 Heparin Sodium (Porcine) (Heparin 5000 units/ml) 5,000 units EVERY 12 HOURS SUBQ 04/06/19 21:00 05/01/19 08:59 04/17/19 21:21 Heparin Sodium/ Sodium Chloride (Heparin 1000 units/500ml Premix) 1,000 unit ONCE PRN IV picc line placement 04/16/19 15:15 04/18/19 15:14 Hydralazine HCl (Apresoline) 50 mg Q8HR ORAL 04/06/19 14:00 05/01/19 13:59 04/18/19 05:37 Insulin Aspart (NovoLOG) BEFORE MEALS AND HS SUBQ 04/06/19 16:30 05/01/19 11:29 04/18/19 12:06 Lansoprazole (Prevacid) 30 mg DAILY GT 04/17/19 09:00 05/17/19 08:59 04/18/19 08:55 Lidocaine HCl (Xylocaine 1% 30ml) 30 ml ONCE PRN INJ picc line placement 04/16/19 15:15 04/18/19 15:14 Memantine (Namenda) 5 mg BID ORAL 04/11/19 18:00 05/11/19 17:59 04/18/19 08:55 Minoxidil (Loniten) 2.5 mg Q4H PRN ORAL bp over 165 syst 04/06/19 14:00 05/01/19 13:59 Ondansetron HCl (Zofran) 4 mg Q6H PRN IVP Nausea & Vomiting 04/06/19 14:00 05/01/19 07:59 04/13/19 20:19 Quetiapine Fumarate (SEROqueL) 50 mg TWICE A DAY ORAL 04/06/19 18:00 05/03/19 17:59 04/18/19 08:55 Risperidone (RisperDAL) 1 mg Q12HR ORAL 04/12/19 15:00 05/12/19 14:59 04/18/19 08:55 Tamsulosin HCl (Flomax) 0.4 mg BID ORAL 04/06/19 18:00 05/01/19 12:59 04/18/19 08:55 Adam Moyer MD Apr 18, 2019 14:19
--- NOTE | 2019-04-18 15:13 | NUR ---
NURSE NOTES:WOUND CARE FOLLOW-UP NOTES: Pt presented on admission with multiple pressure injuries. Scattered pressure injuries at base of scrotum resolving . [place] epithelial noted . Full thickness pressure injury at base of penile shaft and scrotum with loose fibrinous slough.Wound Bioburden removed with curette by Dr. Pepe.Small amt slough at base noted.Edges adherent to base of wound(L)1cm x (W)2cm. Full thickness sacral pressure injury resolving. Scattered slough at base of wound. [place] epithelial borders that are flat ad adherent to base of wound.No odor or exudate noted.Periwound withot erythema or induration.(L)7cm x (W)10cm. Tx.Plan:Cleanse wound base of penis with saline. Apply Therahoney. Apply Cavilon Skin BArrier periwound. Cover with Optifoam drsg. Change daily and prn. Cleanse Sacral wound with Saline. Apply Therahoney. Apply Moisture Barrier arita periwound. Cover with Optifoam Drsg. Change every 3 days and prn. Apply Moisture Barrier Paste to Scrotum with Each incontinence care. Reposition at least every 2hours or as tolerated. Off-load heels with pillow. APM/NOLBERTO Mattress overlay.
--- NOTE | 2019-04-18 15:30 | NUR ---
NURSE NOTES: There is a discharge order for this patine; I communicated MD Piedra, if patient is cleared from ID perspective and also if MD Dorothea cheng order any medication upon discharge. Waiting for order.
--- NOTE | 2019-04-18 15:40 | Surgery Progress Note ---
Surgery Progress Note Subjective Additional Comments doing okay no complaints comfortable wounds managed at bedside and cont to require extensive care Objective Last 24 Hour Vital Signs Date Time Temp Pulse Resp B/P (MAP) Pulse Ox O2 Delivery O2 Flow Rate FiO2 04/18/19 12:00 99.7 71 16 101/46 (64) 97 04/18/19 09:00 Room Air 04/18/19 08:55 66 105/54 04/18/19 08:00 98.4 66 15 105/54 (71) 97 04/18/19 05:37 135/74 04/18/19 04:00 98.2 66 20 111/61 (78) 98 04/18/19 00:00 98.3 63 20 118/40 (66) 95 04/17/19 21:19 139/53 04/17/19 21:18 69 139/53 04/17/19 21:00 Room Air 04/17/19 20:00 98.4 89 19 148/51 (83) 99 04/17/19 16:00 98.1 67 18 137/69 (91) 97 I&O Intake and Output 04/17/19 04/18/19 18:59 06:59 Intake Total 1200 ml 900 ml Output Total 450 ml 125 ml Balance 750 ml 775 ml Free Water 200 ml 100 ml IV Total 600 ml 300 ml Tube Feeding 400 ml 500 ml Output Urine Total 450 ml Stool Total 125 ml # Bowel Movements 75 Dressing: saturated Wound: other Drains: hemovac Respiratory: decreased breath sounds Abdomen: soft, present bowel sounds Extremities: edema, no cyanosis, other Laboratory Tests Test 04/18/19 08:55 White Blood Count 5.6 K/UL (4.8-10.8) Red Blood Count 2.91 M/UL (4.70-6.10) L Hemoglobin 8.2 G/DL (14.2-18.0) L Hematocrit 26.4 % (42.0-52.0) L Mean Corpuscular Volume 91 FL (80-99) Mean Corpuscular Hemoglobin 28.1 PG (27.0-31.0) Mean Corpuscular Hemoglobin Concent 30.9 G/DL (32.0-36.0) L Red Cell Distribution Width 18.2 % (11.6-14.8) H Platelet Count 131 K/UL (150-450) L Mean Platelet Volume 7.0 FL (6.5-10.1) Neutrophils (%) (Auto) 72.4 % (45.0-75.0) Lymphocytes (%) (Auto) 13.6 % (20.0-45.0) L Monocytes (%) (Auto) 13.2 % (1.0-10.0) H Eosinophils (%) (Auto) 0.6 % (0.0-3.0) Basophils (%) (Auto) 0.2 % (0.0-2.0) Sodium Level 135 MMOL/L (136-145) L Potassium Level 5.0 MMOL/L (3.5-5.1) Chloride Level 107 MMOL/L (98-107) Carbon Dioxide Level 21 MMOL/L (21-32) Anion Gap 7 mmol/L (5-15) Blood Urea Nitrogen 19 mg/dL (7-18) H Creatinine 2.1 MG/DL (0.55-1.30) H Estimat Glomerular Filtration Rate mL/min (>60) Glucose Level 176 MG/DL (74-106) H Calcium Level 7.3 MG/DL (8.5-10.1) L Plan Problems: (1) Scrotal lesion Assessment & Plan: This is a 83-year-old male with multiple medical morbidities who was identified to have abnormal scrotal lesions on admission. There are 3 lesions on the scrotum clearly identified and likely old small abscesses or carbuncles which have healed slowly. Patient is incontinent With leakage of stool identified around the scrotal sac on the posterior aspect where the lesions are located. No signs of active infection no active drainage nontender skin macerated Recommend washing the scrotum daily with normal saline. Apply skin protectant and moisture absorbent dressing daily and as needed saturation Physical examination was identified to have a draining pustule in the left shaft base of the penis. There is an opening less than a centimeter with drainage of some mild seropurulent fluid and some slough. Wound irrigated cleansed and some non-excisional debridement with gauze was performed. There is significant edema in the area no cellulitis skin otherwise intact. Fair amount of moisture in the area. Will continue with local care We will follow and monitor for healing Pain is still swollen and has a wound on the left base 1 cm opening some slough. Some non-excisional debridement done at bedside. We will continue to monitor wound. vPt presented on admission with multiple pressure injuries. Scattered pressure injuries at base of scrotum resolving . Vickery epithelial noted . Full thickness pressure injury at base of penile shaft and scrotum with loose fibrinous slough.Wound Bioburden removed with curette by Dr. Pepe.Small amt slough at base noted.Edges adherent to base of wound(L)1cm x (W)2cm. Full thickness sacral pressure injury resolving. Scattered slough at base of wound. Vickery epithelial borders that are flat ad adherent to base of wound.No odor or exudate noted.Periwound withot erythema or induration.(L)7cm x (W)10cm. Tx.Plan:Cleanse wound base of penis with saline. Apply Therahoney. Apply Cavilon Skin BArrier periwound. Cover with Optifoam drsg. Change daily and prn. Cleanse Sacral wound with Saline. Apply Therahoney. Apply Moisture Barrier arita periwound. Cover with Optifoam Drsg. Change every 3 days and prn. Apply Moisture Barrier Paste to Scrotum with Each incontinence care. Reposition at least every 2hours or as tolerated. Off-load heels with pillow. APM/NOLBERTO Mattress overlay. a (2) Sacral decubitus ulcer, stage III Assessment & Plan: Pt presented on admission with multiple pressure injuries. Full thickness sacral pressure injury. Base of wound is viable with an area that is purple in center. Semi-detached black borders(L)9.5cm x (W)4.9cm x(D) 0.2cm .Non-blanching erythema periwound. Multiple pressure injuries Scrotum. Base of pressure injury R scrotum 75% pink granulation,25% slough. Edges pink,flat and adherent to base of wound.(L)2.2cm x (W)0.9cm.Ful thickness pressure injury center -base of scrotum (L)0.5cm x (W) 0.4cm. Base of wound has 100% slough. Full thickness pressure injury L scrotum ( L)2cm x (W01.1cm. Base of wound has 90% slough ,10% viable. Reabsorbing blood blister R heel heel. Base of wound black (L)2.2cm x (W)2cm with red tinged borders with fluctuance. (L)5.5cm x(W)5cm. Reabsorbing Blood Blister L heel. Base of wound is black ,dry with maroon and fluctuant borders.(L)6.5cm x (W)6cm Abd folds are moist and dark but is intact. Penile wound identified. Now open from edema. Slough noted. Slough wiped and cleaned. Non-excisional debridement performed. Wound stable. No longer draining. Tx.Plan: Cleanse Sacral wound with Saline. Apply Therahoney. Apply Moisture Barrier Paste periwound. Cover with Optifoam drsg Daily and prn. Cleanse wounds on Scrotum with saline. Apply Therhaoney to each wound. Cover with Optifoam drsg. Change Daily and prn. Bacitracin to penile wound. Apply Moisture Barrier to Abd folds and Bilat groin Daily and prn. APM/NOLBERTO Mattress overlay. Reposition at least every 2hours or as tolerated. Off-load heels with pillow. (3) Bladder cancer (4) C. difficile colitis Assessment & Plan: blood cultures negative C diff positive - discussed with ID cont abx labs noted and improved exam stable cont current tx Bebeto Pepe Apr 18, 2019 15:40
--- NOTE | 2019-04-18 15:45 | Progress Note ---
DATE: 04/18/2019 SUBJECTIVE: This is an 83-year-old male patient who has low oxygen saturation, but he has some altered mental status, confusion, decline in cognition below his baseline that is why his attending has requested daily psychiatric consultation for this patient. The patient is confused, mood labile, depressed, psychomotor agitation, irritability. MENTAL STATUS EXAMINATION: The patient is an 83-year-old male. Appearance is disheveled. Attitude, irritable and agitated. Affect, guarded and restricted. Intellect, poor. Mood, depressed and anxious. Motor activity, psychomotor agitation. Attention span is poor. Orientation x2. Speech is low volume, slurred. Thought process, disorganized and illogical. Insight and judgement is poor. DIAGNOSIS: Major disorder, severe, recurrent with psychotic features, rule out dementia with psychosis. PLAN: Plan for this patient treat with him psychotropic medication regimen consisting of Namenda 5 mg twice a day, Seroquel 50 mg twice a day, Risperdal 1 mg q.12 hours. Provide him with 20 minutes of cognitive behavioral therapy to help him identify his automatic negative thoughts and help him convert his negative thoughts to more positive thoughts to reduce depression, anxiety, and mood lability. Chart reviewed and discussed with staff. Seen and assessed in his room. Ami Hennessy M.D. DR: Malka JOB#: [id number] CC:
[2019-04-18 16:00] VITALS: BP 115/55
[2019-04-18] MEDS ORDERED: DIFICID200 MG PO ×3 (16:48→16:52)
--- NOTE | 2019-04-18 19:36 | NUR ---
NURSE NOTES: Patient woke up upon rounds. Not in acute respiratory distress. Rectal tube and Oconnor cath intact and draining well. Call light in reach. Bed in lowest, locked and alarm on.
--- NOTE | 2019-04-18 19:53 | NUR ---
HAND-OFF: Report given to MATT Prather.
[2019-04-18 20:00] VITALS: BP 132/88
[2019-04-18] MEDS: Dyna-Hex 2% Top Sol 2oz TOPIC SCH (20:00)
[2019-04-19] VITALS: BP 100/48
[2019-04-19 04:00] VITALS: BP 129/55
[2019-04-19] MEDS: HydrALAZINE 50mg tab ORAL SCH ×3 (05:20→22:16)
[2019-04-19] MEDS: NovoLOG Insulin Flexpen SUBQ SCH ×4 (05:25→22:15)
[2019-04-19] MEDS: D5W w/KCl 20mEq 1,000 ML IV SCH (05:27)
--- NOTE | 2019-04-19 06:28 | Hematology/Onc Progress Note ---
Assessment/Plan Assessment/Plan Assessment and Recs: # ACUTE DEEP VEIN THROMBOSIS BILATERAL, new onset, from 04/02/19 s/p IVC filter on 05/06/[address] Arroyo --> reviewed images with radiology, goes from common to proximal common femoral v ein --> V/Q scan --> shows low prob pe --> given low h/h and low plts, recommend ivc filter placement, consent has been signed --> cleared with other consultants, zen RN --> s/p IVC filter by Dr Arroyo 04/06 --> hold off on anticoagulation until h/h other counts stabilize # Bladder cancer requires resection v chemo/xrt -- presented with multi masses CT shows Scattered eccentric mural thickening/masses in the urinary bladder wall , correlating with findings on recent ultrasound. No significant perivesical stranding. Recommend further evaluation with cystoscopy. --> urology consulted, appreciate input --> Uro note from prior admission: Tolerated bladder tumor resection well. Unfortunately greater part of the bladder is involved and essentially replaced all normal bladder with tumor. I can not resect all the tumors. --> may consider chemo/radiation as outpatient --> path does confirm malignancy --> CBI as needed per uro # Pancytopenia - potential causes multifactorial, evaluate liver and viral etiologies to begin, also could be related to underlying medications patient has received. --> Hep panel and HIV --> NEGATIVE --> US abd showed bladder masses--> ct reviewed as well --> Peripheral smear ordered to evaluate for blasts /schistocytes --> none noted --> abx and other meds have been reviewed --> ok for ppx if plt >50k w/ either heparin or lovenox --> trend plt >92-->104-->86-->73-->117k-->133k --> wbc trend 3.7-->4.1-->4.7 # Anemia of iron deficiency likely due to hematuria --> iv iron x 5 days low ferritin, completed from prior admission --> likely due to hematuria --> have started on ivf and consider uro prn cysto --> hgb goal >7 --> cont po folic acid --> hgb trend: 7.4-->8.4 --> as per gi at some point may need egd/colo # Acute renal injury --> cr >1.4-->1.4-->1.7-->1.5-->3.7->1.8-->2 --> per renal recs --> volume expansion # HTN --> cards is following, appreciate recs # C. diff colitis --> on po vanc/flagyl --> per id # Hematuria --> improved # UTI (urinary tract infection) --> per id on abx, cefe/vanc # Scrotal lesions --> per surg eval --> as per wound care # Dehydration # Dvt ppx heparin sq and ivf filter The timing of this note does not necessarily reflect the time of the patient was seen. GREATLY APPRECIATE CONSULTATION. Subjective HEENT: Denies: no symptoms, eye pain, blurred vision, tearing, double vision, ear pain, ear discharge, nose pain, nose congestion, throat pain, throat swelling, mouth pain, mouth swelling, other Cardiovascular: Denies: no symptoms, chest pain, edema, irregular heart rate, lightheadedness, palpitations, syncope, other Respiratory: Denies: no symptoms, cough, shortness of breath, SOB with excertion, SOB at rest, sputum, wheezing, other Gastrointestinal/Abdominal: Denies: no symptoms, abdomen distended, abdominal pain, black stools, tarry stools, blood in stool, constipated, diarrhea, difficulty swallowing, nausea, poor appetite, poor fluid intake, rectal bleeding , vomiting, other Genitourinary: Denies: no symptoms, burning, discharge, frequency, flank pain, hematuria, incontinence, pain, urgency, other Neurologic/Psychiatric: Denies: no symptoms, anxiety, depressed, emotional problems, headache, numbness, paresthesia, pre-existing deficit, seizure, tingling, tremors, weakness, other Allergies: Coded Allergies: No Known Allergies (Unverified , 12/20/18) Subjective 04/03: s/p 1 bag iv iron, hgb 7.4, repeat cbc tomorrow, consent for ivc filter has been signed 04/04: is pending clearance of blood cultures, have dw id, potentially thurs for ivcf placement 04/05: no events, still pending ivc filter, have dw rn and id 04/06: no events, no bleeding, pending filter, as per id clearance 04/08: tolerated ivc filter well on 04/06, no events, no bleeding reported 04/09: no events, remains confused is on 2l brigitte, zen rn 04/10: no events, with lesion noted on penile shaft, no bleeding noted 04/11: no events, tolerated only half of vanc, plt 101, ok to give heparin sq 04/12: on ensure, no bleeding, labs noted, wbc lower, no major changes 04/13: remains confused, labs noted from yesterday, on abx 04/14: no major changes, therahoney dressing changes, no bleeding, labs reviewed 04/15: awake and alert, no acute events, on room air, cbc ordered .2: no f/c, no major changes, labs reviewed, ++rt and +richardson 04/17: potential for peg, procedure, no bleeding, labs reviewed 04/18: no events, no bleeding, labs noted 04/19: labs today pending, sleepy, no events Objective Objective Current Medications Medications (Trade) Dose Ordered Sig/Sallie Route PRN Reason Start Time Stop Time Status Last Admin Dose Admin Acetaminophen (Tylenol) 650 mg Q4H PRN ORAL fever 04/06/19 14:00 05/01/19 13:59 Acetaminophen (Tylenol) 650 mg Q4H PRN ORAL Mild Pain/Temp > 100.5 04/13/19 16:15 05/13/19 16:14 04/17/19 22:46 Allopurinol (Allopurinol) 300 mg DAILY ORAL 04/07/19 09:00 05/03/19 09:59 04/18/19 08:55 Carvedilol (Coreg) 12.5 mg EVERY 12 HOURS ORAL 04/06/19 21:00 05/01/19 08:59 04/18/19 21:44 Chlorhexidine Gluconate (Abril-Hex 2%) 1 applic DAILY@1999 TOPIC 04/16/19 20:00 05/16/19 19:59 Dextrose (Dextrose 50%) 25 ml Q30M PRN IV Hypoglycemia 04/06/19 14:00 05/01/19 10:29 Dextrose (Dextrose 50%) 50 ml Q30M PRN IV Hypoglycemia 04/06/19 14:00 05/01/19 10:29 Dextrose/ Electrolytes 1,000 ml @ 75 mls/hr [id number] IV 04/06/19 13:30 05/04/19 09:59 04/19/19 05:27 Fidaxomicin (Dificid) 200 mg EVERY 12 HOURS ORAL 04/16/19 21:00 04/23/19 20:59 04/18/19 21:43 Heparin Sodium (Porcine) (Heparin 5000 units/ml) 5,000 units EVERY 12 HOURS SUBQ 04/06/19 21:00 05/01/19 08:59 04/18/19 21:45 Hydralazine HCl (Apresoline) 50 mg Q8HR ORAL 04/06/19 14:00 05/01/19 13:59 04/18/19 05:37 Insulin Aspart (NovoLOG) BEFORE MEALS AND HS SUBQ 04/06/19 16:30 05/01/19 11:29 04/19/19 05:25 Lansoprazole (Prevacid) 30 mg DAILY GT 04/17/19 09:00 05/17/19 08:59 04/18/19 08:55 Memantine (Namenda) 5 mg BID ORAL 04/11/19 18:00 05/11/19 17:59 04/18/19 17:43 Minoxidil (Loniten) 2.5 mg Q4H PRN ORAL bp over 165 syst 04/06/19 14:00 05/01/19 13:59 Ondansetron HCl (Zofran) 4 mg Q6H PRN IVP Nausea & Vomiting 04/06/19 14:00 05/01/19 07:59 04/13/19 20:19 Quetiapine Fumarate (SEROqueL) 50 mg TWICE A DAY ORAL 04/06/19 18:00 05/03/19 17:59 04/18/19 17:43 Risperidone (RisperDAL) 1 mg Q12HR ORAL 04/12/19 15:00 05/12/19 14:59 04/18/19 21:44 Tamsulosin HCl (Flomax) 0.4 mg BID ORAL 04/06/19 18:00 05/01/19 12:59 04/18/19 17:43 Last 24 Hour Vital Signs Date Time Temp Pulse Resp B/P (MAP) Pulse Ox O2 Delivery O2 Flow Rate FiO2 04/19/19 04:00 98.7 70 18 129/55 (79) 100 04/19/19 00:00 99.3 64 16 100/48 (65) 95 04/18/19 21:47 117/56 04/18/19 21:44 68 117/56 04/18/19 21:00 Room Air 04/18/19 20:00 98.4 80 20 132/88 (103) 96 04/18/19 16:00 98.9 71 17 115/55 (75) 98 04/18/19 12:00 99.7 71 16 101/46 (64) 97 04/18/19 09:00 Room Air 04/18/19 08:55 66 105/54 04/18/19 08:00 98.4 66 15 105/54 (71) 97 04/18/19 05:37 135/74 04/18/19 04:00 98.2 66 20 111/61 (78) 98 04/18/19 00:00 98.3 63 20 118/40 (66) 95 04/17/19 21:19 139/53 04/17/19 21:18 69 139/53 04/17/19 21:00 Room Air 04/17/19 20:00 98.4 89 19 148/51 (83) 99 04/17/19 16:00 98.1 67 18 137/69 (91) 97 04/17/19 13:40 131/61 04/17/19 12:00 98.9 61 14 131/61 (84) 96 04/17/19 09:43 65 18 100 04/17/19 09:42 63 18 100 04/17/19 09:40 64 143/60 04/17/19 09:00 Room Air 04/17/19 08:55 97.4 63 21 158/76 100 Nasal Cannula 04/17/19 08:45 65 22 153/74 100 Nasal Cannula 04/17/19 08:40 64 22 153/74 100 Nasal Cannula 04/17/19 08:38 97.2 62 20 162/72 100 Nasal Cannula Intake and Output 04/18/19 04/19/19 19:00 07:00 Intake Total 1625 ml 775 ml Output Total 500 ml Balance 1125 ml 775 ml Free Water 200 ml 200 ml IV Total 825 ml 75 ml Tube Feeding 600 ml 500 ml Output Urine Total 500 ml # Bowel Movements 60 Labs Test 04/16/19 06:35 04/16/19 06:55 04/17/19 04:20 04/18/19 08:55 Phosphorus Level 5.8 MG/DL (2.5-4.9) 2.3 MG/DL (2.5-4.9) Magnesium Level 1.6 MG/DL (1.8-2.4) 2.2 MG/DL (1.8-2.4) Total Bilirubin 0.8 MG/DL (0.2-1.0) 0.2 MG/DL (0.2-1.0) Direct Bilirubin 0.6 MG/DL (0.0-0.3) < 0.1 MG/DL (0.0-0.3) Aspartate Amino Transf (AST/SGOT) 31 U/L (15-37) 17 U/L (15-37) Alanine Aminotransferase (ALT/SGPT) 16 U/L (12-78) 7 U/L (12-78) Alkaline Phosphatase 153 U/L (46-116) 52 U/L (46-116) Total Protein 5.7 G/DL (6.4-8.2) 5.5 G/DL (6.4-8.2) Albumin 1.5 G/DL (3.4-5.0) 1.5 G/DL (3.4-5.0) White Blood Count 5.5 K/UL (4.8-10.8) 4.7 K/UL (4.8-10.8) 5.6 K/UL (4.8-10.8) Red Blood Count 3.36 M/UL (4.70-6.10) 3.02 M/UL (4.70-6.10) 2.91 M/UL (4.70-6.10) Hemoglobin 9.6 G/DL (14.2-18.0) 8.6 G/DL (14.2-18.0) 8.2 G/DL (14.2-18.0) Hematocrit 30.7 % (42.0-52.0) 27.8 % (42.0-52.0) 26.4 % (42.0-52.0) Mean Corpuscular Volume 91 FL (80-99) 92 FL (80-99) 91 FL (80-99) Mean Corpuscular Hemoglobin 28.6 PG (27.0-31.0) 28.5 PG (27.0-31.0) 28.1 PG (27.0-31.0) Mean Corpuscular Hemoglobin Concent 31.4 G/DL (32.0-36.0) 30.9 G/DL (32.0-36.0) 30.9 G/DL (32.0-36.0) Red Cell Distribution Width 18.0 % (11.6-14.8) 18.3 % (11.6-14.8) 18.2 % (11.6-14.8) Platelet Count 128 K/UL (150-450) 133 K/UL (150-450) 131 K/UL (150-450) Mean Platelet Volume 7.6 FL (6.5-10.1) 8.5 FL (6.5-10.1) 7.0 FL (6.5-10.1) Neutrophils (%) (Auto) 76.1 % (45.0-75.0) 71.0 % (45.0-75.0) 72.4 % (45.0-75.0) Lymphocytes (%) (Auto) 12.3 % (20.0-45.0) 12.6 % (20.0-45.0) 13.6 % (20.0-45.0) Monocytes (%) (Auto) 10.3 % (1.0-10.0) 15.1 % (1.0-10.0) 13.2 % (1.0-10.0) Eosinophils (%) (Auto) 0.3 % (0.0-3.0) 0.8 % (0.0-3.0) 0.6 % (0.0-3.0) Basophils (%) (Auto) 1.0 % (0.0-2.0) 0.6 % (0.0-2.0) 0.2 % (0.0-2.0) Sodium Level 135 MMOL/L (136-145) 134 MMOL/L (136-145) 135 MMOL/L (136-145) Potassium Level 4.6 MMOL/L (3.5-5.1) 4.7 MMOL/L (3.5-5.1) 5.0 MMOL/L (3.5-5.1) Chloride Level 107 MMOL/L (98-107) 106 MMOL/L (98-107) 107 MMOL/L (98-107) Carbon Dioxide Level 16 MMOL/L (21-32) 19 MMOL/L (21-32) 21 MMOL/L (21-32) Anion Gap 12 mmol/L (5-15) 9 mmol/L (5-15) 7 mmol/L (5-15) Blood Urea Nitrogen 18 mg/dL (7-18) 17 mg/dL (7-18) 19 mg/dL (7-18) Creatinine 2.0 MG/DL (0.55-1.30) 2.0 MG/DL (0.55-1.30) 2.1 MG/DL (0.55-1.30) Estimat Glomerular Filtration Rate mL/min (>60) mL/min (>60) mL/min (>60) Glucose Level 142 MG/DL (74-106) 213 MG/DL (74-106) 176 MG/DL (74-106) Calcium Level 7.6 MG/DL (8.5-10.1) 7.4 MG/DL (8.5-10.1) 7.3 MG/DL (8.5-10.1) Prothrombin Time 12.2 SEC (9.30-11.50) Prothromb Time International Ratio 1.2 (0.9-1.1) Activated Partial Thromboplast Time 27 SEC (23-33) Test 04/19/19 05:40 Height (Feet): 5 Height (Inches): 5.00 Weight (Pounds): 174 Objective Physical Exam Vital Signs: have been reviewed General Appearance: non-toxic, obese, Chronically Ill Respiratory: chest non-tender, lungs clear, mirian BSs, no rhonchi Cardiovascular: normal inspection, regular rate, rhythm, GI: normal inspection, soft Genitourinary: RICHARDSON+, RT++ Musculoskeletal: normal inspection Neurologic: normal inspection, alert Marcelo Mcallister MD Apr 19, 2019 06:28
[2019-04-19 06:36] LABS: BASOPHILS % (AUTO) 0.6 % (0.0-2.0); HEMATOCRIT 29.4 % (42.0-52.0); LYMPHOCYTES % (AUTO) 16.8 % (20.0-45.0); MEAN CORPUSCULAR VOLUME 93 FL (80-99); MONOCYTES % (AUTO) 11.2 % (1.0-10.0); NEUTROPHILS % (AUTO) 70.4 % (45.0-75.0); PLATELET COUNT 131 K/UL (150-450); RED BLOOD COUNT 3.16 M/UL (4.70-6.10); RED CELL DISTRIBUTION WIDTH 18.6 % (11.6-14.8)
[2019-04-19 06:46] LABS: ANION GAP 6 mmol/L (5-15); BLOOD UREA NITROGEN 25 mg/dL (7-18); CALCIUM 7.6 MG/DL (8.5-10.1); CARBON DIOXIDE 20 MMOL/L (21-32); CHLORIDE 106 MMOL/L (98-107); CREATININE 2.2 MG/DL (0.55-1.30); POTASSIUM 5.8 MMOL/L (3.5-5.1); SODIUM 132 MMOL/L (136-145)
--- NOTE | 2019-04-19 07:16 | NUR ---
HAND-OFF: Report given to MATT De La Rosa.
--- NOTE | 2019-04-19 07:35 | NUR ---
NURSE NOTES: PT RESTING IN BED, CALM, IN NO APPARENT DISTRESS AT THIS TIME. PT IN HIGH WYNNE'S POSITION WITH HOB ELEVATED FOR ASPIRATION PRECAUTIONS. GTUBE FEEDING GLUCERNA 1.5 RUNNING AT 50CC/H. IVF D5W + 20 MEQ RUNNING AT 75CC/H N RIGHT WRIST; ASYMPTOMATIC, PATENT AND INTACT. RN MADE DR HERNANDEZ AWARE OF TODAY'S LAB VALUES: POTASSIUM 5.8 AND SODIUM 132 WITH CURRENT IVF RUNNING. PER DR HERNANDEZ, NEED TO MAKE DR DANIELS AWARE. PER AIR BRAKE WORKER RN, PT WAS NOT DISCHARGED YESTERDAY BECAUSE INTERFACILITY REPORT WAS NOT PROVIDED. WILL SPEAK TO ESCALATION ENGINEER TODAY REGARDING DISCHARGE.
[2019-04-19 08:00] VITALS: BP 106/53
[2019-04-19] MEDS: Tamsulosin 0.4mg cap ORAL SCH ×2 (08:51→17:17)
[2019-04-19] MEDS: Memantine 5 MG TAB ORAL SCH ×2 (08:51→17:17)
[2019-04-19] MEDS: Carvedilol 12.5mg tab ORAL SCH ×2 (08:52→21:23)
--- NOTE | 2019-04-19 09:01 | General Progress Note ---
Assessment/Plan Assessment/Plan: (1) Bladder cancer s/p resection (2) H/O CVA (3) Sacral decubitus ulcer Patient to be continued on Tylenol. D/w Dr. Ruelas and he concurred. Subjective Date patient seen: Apr 19, 2019 Time patient seen: 08:00 - am Allergies: Coded Allergies: No Known Allergies (Unverified , 12/20/18) Subjective Constitutional: Reports: no symptoms HEENT: Reports: no symptoms Cardiovascular: Reports: no symptoms Respiratory: Reports: no symptoms Gastrointestinal/Abdominal: Reports: no symptoms Genitourinary: Reports: no symptoms Neurologic/Psychiatric: Reports: weakness Endocrine: Reports: no symptoms Hematologic/Lymphatic: Reports: no symptoms Subjective Patient has been showing no signs of pain or distress. He denies pain at this time. Objective Last 24 Hour Vital Signs Date Time Temp Pulse Resp B/P (MAP) Pulse Ox O2 Delivery O2 Flow Rate FiO2 04/19/19 08:00 97.5 69 20 106/53 (70) 98 04/19/19 04:00 98.7 70 18 129/55 (79) 100 04/19/19 00:00 99.3 64 16 100/48 (65) 95 04/18/19 21:47 117/56 04/18/19 21:44 68 117/56 04/18/19 21:00 Room Air 04/18/19 20:00 98.4 80 20 132/88 (103) 96 04/18/19 16:00 98.9 71 17 115/55 (75) 98 04/18/19 12:00 99.7 71 16 101/46 (64) 97 Intake and Output 04/18/19 04/19/19 19:00 07:00 Intake Total 1625 ml 1575 ml Output Total 500 ml 320 ml Balance 1125 ml 1255 ml Free Water 200 ml 200 ml IV Total 825 ml 825 ml Tube Feeding 600 ml 550 ml Output Urine Total 500 ml 300 ml Stool Total 20 ml # Bowel Movements 60 Laboratory Tests 04/19/19 05:40: White Blood Count 6.0, Red Blood Count 3.16L, Hemoglobin 9.0L, Hematocrit 29.4L , Mean Corpuscular Volume 93, Mean Corpuscular Hemoglobin 28.6, Mean Corpuscular Hemoglobin Concent 30.8L, Red Cell Distribution Width 18.6H, Platelet Count 131L, Mean Platelet Volume 7.1, Neutrophils (%) (Auto) 70.4, Lymphocytes (%) (Auto) 16.8L, Monocytes (%) (Auto) 11.2H, Eosinophils (%) (Auto ) 1.0, Basophils (%) (Auto) 0.6, Sodium Level 132L, Potassium Level 5.8H, Chloride Level 106, Carbon Dioxide Level 20L, Anion Gap 6, Blood Urea Nitrogen 25H, Creatinine 2.2H, Estimat Glomerular Filtration Rate , Glucose Level 180H, Calcium Level 7.6L Height (Feet): 5 Height (Inches): 5.00 Weight (Pounds): 174 Objective General Appearance: no apparent distress, alert EENT: PERRL/EOMI, normal ENT inspection Neck: non-tender, normal alignment Cardiovascular: normal rate, regular rhythm Respiratory/Chest: decreased breath sounds Abdomen: other - obese Edema: trace edema Neurologic: alert, oriented x 3 Skin: warm/dry Jewel Frank Apr 19, 2019 09:01
[2019-04-19] MEDS: Heparin 5000 units/ml inj SUBQ SCH ×2 (09:03→21:26)
--- NOTE | 2019-04-19 09:49 | NUR ---
NURSE NOTES: ORDER TO D/C IVF NOTED. IVF STOPPED ORDERED. DR DANIELS MADE AWARE OF ALL ABNORMAL LABS. PER MD, FOR POTASSIUM HE MIGHT BE OK WITHOUT THE FLUIDS. MD TO PUT IN NEW ORDERS.
--- NOTE | 2019-04-19 10:18 | NUR ---
NURSE NOTES: RN SPOKE TO TEMI, HEAD MACHINE FEEDER AT [facility]. PER TEMI, PT WAS EXPECTED FOR ADMISSION YESTERDAY. FACILITY HAD ANOTHER ADMISSION AND BED WAS GIVEN TO ANOTHER PT. TEMI CANNOT ACCEPT C DIFF ISOLATION AT THIS TIME. PER DR JULIO'S NOTE, C DIFF CAN BE CLEARED IF PT GOES 48 HOURS WITHOUT DIARRHEA. PER TEMI, SHE SPOKE TO [facility] PLANT HR MANAGER YESTERDAY AND STATED PT WAS WITHOUT ISOLATION. CRN MADE AWARE OF CHANGES IN DISCHARGE. RN LEFT MESSAGE FOR DR HERNANDEZ REGARDING CHANGES IN DISCHARGE.
--- NOTE | 2019-04-19 11:31 | General Progress Note ---
Assessment/Plan Problem List: (1) Invasive carcinoma of urinary bladder ICD Codes: C67.9 - Malignant neoplasm of bladder, unspecified SNOMED: 341323739 (2) Anemia ICD Codes: D64.9 - Anemia, unspecified SNOMED: 507471448 (3) Diabetes ICD Codes: E11.9 - Type 2 diabetes mellitus without complications SNOMED: 73286517 (4) HTN (hypertension) ICD Codes: I10 - Essential (primary) hypertension SNOMED: 75625187 (5) Urinary tract infection ICD Codes: N39.0 - Urinary tract infection, site not specified SNOMED: 17285914 (6) Bladder cancer ICD Codes: C67.9 - Malignant neoplasm of bladder, unspecified SNOMED: 689552209 Status: stable, progressing Assessment/Plan: pt diet eval 02 pulm tx abx uro f/u cbc bmp am advance diet if paco dc plan snf Subjective Constitutional: Reports: weakness Allergies: Coded Allergies: No Known Allergies (Unverified , 12/20/18) All Systems: reviewed and negative except above Subjective o2nc sleepy calm Objective Last 24 Hour Vital Signs Date Time Temp Pulse Resp B/P (MAP) Pulse Ox O2 Delivery O2 Flow Rate FiO2 04/19/19 09:00 Room Air 04/19/19 08:52 69 106/53 04/19/19 08:00 97.5 69 20 106/53 (70) 98 04/19/19 04:00 98.7 70 18 129/55 (79) 100 04/19/19 00:00 99.3 64 16 100/48 (65) 95 04/18/19 21:47 117/56 04/18/19 21:44 68 117/56 04/18/19 21:00 Room Air 04/18/19 20:00 98.4 80 20 132/88 (103) 96 04/18/19 16:00 98.9 71 17 115/55 (75) 98 04/18/19 12:00 99.7 71 16 101/46 (64) 97 Intake and Output 04/18/19 04/19/19 19:00 07:00 Intake Total 1625 ml 1625 ml Output Total 500 ml 320 ml Balance 1125 ml 1305 ml Free Water 200 ml 200 ml IV Total 825 ml 825 ml Tube Feeding 600 ml 600 ml Output Urine Total 500 ml 300 ml Stool Total 20 ml # Bowel Movements 60 Laboratory Tests 04/19/19 05:40: White Blood Count 6.0, Red Blood Count 3.16L, Hemoglobin 9.0L, Hematocrit 29.4L , Mean Corpuscular Volume 93, Mean Corpuscular Hemoglobin 28.6, Mean Corpuscular Hemoglobin Concent 30.8L, Red Cell Distribution Width 18.6H, Platelet Count 131L, Mean Platelet Volume 7.1, Neutrophils (%) (Auto) 70.4, Lymphocytes (%) (Auto) 16.8L, Monocytes (%) (Auto) 11.2H, Eosinophils (%) (Auto ) 1.0, Basophils (%) (Auto) 0.6, Sodium Level 132L, Potassium Level 5.8H, Chloride Level 106, Carbon Dioxide Level 20L, Anion Gap 6, Blood Urea Nitrogen 25H, Creatinine 2.2H, Estimat Glomerular Filtration Rate , Glucose Level 180H, Calcium Level 7.6L Height (Feet): 5 Height (Inches): 5.00 Weight (Pounds): 174 General Appearance: lethargic EENT: normal ENT inspection Neck: normal alignment Cardiovascular: normal peripheral pulses, normal rate, regular rhythm Respiratory/Chest: chest wall non-tender, lungs clear, normal breath sounds Abdomen: normal bowel sounds, non tender, soft Extremities: normal inspection Edema: no edema noted Arm (L), no edema noted Arm (R), no edema noted Leg (L), no edema noted Leg (R), no edema noted Pedal (L), no edema noted Pedal (R), no edema noted Generalized Neurologic: motor weakness Skin: normal pigmentation, warm/dry Jamie Gray DO Apr 19, 2019 11:31
[2019-04-19 12:00] VITALS: BP 92/73
--- NOTE | 2019-04-19 12:45 | Infectious Diseases Prog Note ---
Assessment/Plan Assessment/Plan 83yo gentleman with PMH below presents from group home with confusion, wheezing and desaturation between 83-90%. Pt is oriented to self. Does not know where he is or why he is in the hospital. He initially says yes to abdominal pain, suprapubic pain, leg pain, arm pain but then denied it on second question. Denies fever, chills, cough, sob, diarrhea, dysuria. Unclear baseline. Pt recently had blood transfusion at [facility] 03/06. Pt was recently diagnosed with bladder cancer 12/2018 Afebrile On RA No leukocytosis No lactic acidosis Hypoxia at group home, SP Possible PNA? flu swab negative CXR: Mild diffuse airspace opacities in both lungs. Lungs are underinflated.Lung findings are likely due to underinflation rather than pulmonary edema or atelectasis. Possible UTI? UA WBC TNTC, also moderate epithelial cells UCx: 50-60K amp sensitive E faecalis E faecalis bacteremia likely / UTI 04/01 BCx: E faecalis 04/02 BCx: neg TTE without vegetation C diff + 04/04- still having diarrhea Acute DVT pending IVC filter RIGHT LEG: Venous imaging reveals acute thrombus in the common to superficial femoral veins. LEFT LEG: Venous imaging reveals acute thrombus in the common to superficial femoral veins. SP IVC filter 04/06 Hypokalemia MRSA screen negative ANGELA on CKD CAD Bladder cancer HTN DM CVA Dyslipidemia CKD Anemia BPH Plan: Continue PO Dificid 200mg bid #4/-14 given continued diarrhea -04/16 SP PO Vancomycin #13 -04/15 SP IV Vancomycin #14 -04/13 SP Flagyl # -04/09 SP Cefepime #8 aspiration precaution, elevate HOB monitor temp and CBC needs 48hrs diarrhea free to discontinue isolation Thank you for this consult. [facility] will continue to follow the patient with you. Subjective Allergies: Coded Allergies: No Known Allergies (Unverified , 12/20/18) Subjective afebrile no leukocytosis Objective Vital Signs Last 24 Hour Vital Signs Date Time Temp Pulse Resp B/P (MAP) Pulse Ox O2 Delivery O2 Flow Rate FiO2 04/19/19 12:00 97.0 76 18 92/73 (79) 97 04/19/19 09:00 Room Air 04/19/19 08:52 69 106/53 04/19/19 08:00 97.5 69 20 106/53 (70) 98 04/19/19 04:00 98.7 70 18 129/55 (79) 100 04/19/19 00:00 99.3 64 16 100/48 (65) 95 04/18/19 21:47 117/56 04/18/19 21:44 68 117/56 04/18/19 21:00 Room Air 04/18/19 20:00 98.4 80 20 132/88 (103) 96 04/18/19 16:00 98.9 71 17 115/55 (75) 98 Height (Feet): 5 Height (Inches): 5.00 Weight (Pounds): 174 Objective Constitutional: Denies: no symptoms, chills, fever, malaise, weakness, other HEENT: Denies: no symptoms, eye pain, blurred vision, tearing, double vision, ear pain, ear discharge, nose pain, nose congestion, throat pain, throat swelling, mouth pain, mouth swelling, other Cardiovascular: Denies: no symptoms, chest pain, edema, irregular heart rate, lightheadedness, palpitations, syncope, other Respiratory: Denies: no symptoms, cough, shortness of breath, SOB with excertion, SOB at rest, sputum, wheezing, other Neurologic/Psychiatric: Denies: no symptoms, anxiety, depressed, emotional problems, headache, numbness, paresthesia, pre-existing deficit, seizure, tingling, tremors, weakness, other Endocrine: Denies: no symptoms, excessive sweating, flushing, intolerance to cold, intolerance to heat, increased hunger, increased thirst, increased urine, unexplained weight gain, unexplained weight loss, other Laboratory Tests Test 04/19/19 05:40 White Blood Count 6.0 K/UL (4.8-10.8) Red Blood Count 3.16 M/UL (4.70-6.10) L Hemoglobin 9.0 G/DL (14.2-18.0) L Hematocrit 29.4 % (42.0-52.0) L Mean Corpuscular Volume 93 FL (80-99) Mean Corpuscular Hemoglobin 28.6 PG (27.0-31.0) Mean Corpuscular Hemoglobin Concent 30.8 G/DL (32.0-36.0) L Red Cell Distribution Width 18.6 % (11.6-14.8) H Platelet Count 131 K/UL (150-450) L Mean Platelet Volume 7.1 FL (6.5-10.1) Neutrophils (%) (Auto) 70.4 % (45.0-75.0) Lymphocytes (%) (Auto) 16.8 % (20.0-45.0) L Monocytes (%) (Auto) 11.2 % (1.0-10.0) H Eosinophils (%) (Auto) 1.0 % (0.0-3.0) Basophils (%) (Auto) 0.6 % (0.0-2.0) Sodium Level 132 MMOL/L (136-145) L Potassium Level 5.8 MMOL/L (3.5-5.1) H Chloride Level 106 MMOL/L (98-107) Carbon Dioxide Level 20 MMOL/L (21-32) L Anion Gap 6 mmol/L (5-15) Blood Urea Nitrogen 25 mg/dL (7-18) H Creatinine 2.2 MG/DL (0.55-1.30) H Estimat Glomerular Filtration Rate mL/min (>60) Glucose Level 180 MG/DL (74-106) H Calcium Level 7.6 MG/DL (8.5-10.1) L Current Medications Medications (Trade) Dose Ordered Sig/Sallie Route PRN Reason Start Time Stop Time Status Last Admin Dose Admin Acetaminophen (Tylenol) 650 mg Q4H PRN ORAL fever 04/06/19 14:00 05/01/19 13:59 Acetaminophen (Tylenol) 650 mg Q4H PRN ORAL Mild Pain/Temp > 100.5 04/13/19 16:15 05/13/19 16:14 04/17/19 22:46 Allopurinol (Allopurinol) 300 mg DAILY ORAL 04/07/19 09:00 05/03/19 09:59 04/19/19 08:51 Carvedilol (Coreg) 12.5 mg EVERY 12 HOURS ORAL 04/06/19 21:00 05/01/19 08:59 04/18/19 21:44 Chlorhexidine Gluconate (Abril-Hex 2%) 1 applic DAILY@2000 TOPIC 04/16/19 20:00 05/16/19 19:59 Dextrose (Dextrose 50%) 25 ml Q30M PRN IV Hypoglycemia 04/06/19 14:00 05/01/19 10:29 Dextrose (Dextrose 50%) 50 ml Q30M PRN IV Hypoglycemia 04/06/19 14:00 05/01/19 10:29 Fidaxomicin (Dificid) 200 mg EVERY 12 HOURS ORAL 04/16/19 21:00 04/23/19 20:59 04/19/19 08:51 Heparin Sodium (Porcine) (Heparin 5000 units/ml) 5,000 units EVERY 12 HOURS SUBQ 04/06/19 21:00 05/01/19 08:59 04/19/19 09:03 Hydralazine HCl (Apresoline) 50 mg Q8HR ORAL 04/06/19 14:00 05/01/19 13:59 04/18/19 05:37 Insulin Aspart (NovoLOG) BEFORE MEALS AND HS SUBQ 04/06/19 16:30 05/01/19 11:29 04/19/19 12:17 Lansoprazole (Prevacid) 30 mg DAILY GT 04/17/19 09:00 05/17/19 08:59 04/19/19 08:51 Memantine (Namenda) 5 mg BID ORAL 04/11/19 18:00 05/11/19 17:59 04/19/19 08:51 Minoxidil (Loniten) 2.5 mg Q4H PRN ORAL bp over 165 syst 04/06/19 14:00 05/01/19 13:59 Ondansetron HCl (Zofran) 4 mg Q6H PRN IVP Nausea & Vomiting 04/06/19 14:00 05/01/19 07:59 04/13/19 20:19 Quetiapine Fumarate (SEROqueL) 50 mg TWICE A DAY ORAL 04/06/19 18:00 05/03/19 17:59 04/19/19 08:51 Risperidone (RisperDAL) 1 mg Q12HR ORAL 04/12/19 15:00 05/12/19 14:59 04/19/19 08:51 Tamsulosin HCl (Flomax) 0.4 mg BID ORAL 04/06/19 18:00 05/01/19 12:59 04/19/19 08:51 Jyoti Piedra M.D. Apr 19, 2019 12:45
--- NOTE | 2019-04-19 12:47 | GI Progress Note ---
Assessment/Plan Problems: (1) C. difficile colitis ICD Codes: A04.72 - Enterocolitis due to Clostridium difficile, not specified as recurrent SNOMED: 937262506 (2) Dehydration ICD Codes: E86.0 - Dehydration SNOMED: 48239826 (3) Anemia ICD Codes: D64.9 - Anemia, unspecified SNOMED: 191495321 Status: unchanged Status Narrative Discussed with Dr. Valiente. Assessment/Plan C Diff Colitis Anemia OB (+) OBS Dementia diarrhea anorexia Decubitus ulcer Calorie count d/w with RD, patient not meeting nutrition needs >> s/p PEG. Ok for oral gratification. Antibiotics per infectious diseases send for additional cdiff given persistent diarrhea, consider Imodium if negative off PPI IV and p.o. hydration plus electrolyte correction Monitor H&H, PRN transfusions off all laxatives Ensure s/p IVC filter placement Push p.o. PRN transfusions Pepcid 20 mg twice daily The patient was seen and examined at bedside and all new and available data was reviewed in the patients chart. I agree with the above findings, impression and plan. (Patient seen earlier today. Signature stamp does not reflect patient encounter time.). - Terell Valiente MD Subjective Subjective continues to have diarrhea Objective Last 24 Hour Vital Signs Date Time Temp Pulse Resp B/P (MAP) Pulse Ox O2 Delivery O2 Flow Rate FiO2 04/19/19 12:00 97.0 76 18 92/73 (79) 97 04/19/19 09:00 Room Air 04/19/19 08:52 69 106/53 04/19/19 08:00 97.5 69 20 106/53 (70) 98 04/19/19 04:00 98.7 70 18 129/55 (79) 100 04/19/19 00:00 99.3 64 16 100/48 (65) 95 04/18/19 21:47 117/56 04/18/19 21:44 68 117/56 04/18/19 21:00 Room Air 04/18/19 20:00 98.4 80 20 132/88 (103) 96 04/18/19 16:00 98.9 71 17 115/55 (75) 98 Intake and Output 04/18/19 04/19/19 19:00 07:00 Intake Total 1625 ml 1625 ml Output Total 500 ml 320 ml Balance 1125 ml 1305 ml Free Water 200 ml 200 ml IV Total 825 ml 825 ml Tube Feeding 600 ml 600 ml Output Urine Total 500 ml 300 ml Stool Total 20 ml # Bowel Movements 60 Laboratory Tests Test 04/19/19 05:40 White Blood Count 6.0 K/UL (4.8-10.8) Red Blood Count 3.16 M/UL (4.70-6.10) L Hemoglobin 9.0 G/DL (14.2-18.0) L Hematocrit 29.4 % (42.0-52.0) L Mean Corpuscular Volume 93 FL (80-99) Mean Corpuscular Hemoglobin 28.6 PG (27.0-31.0) Mean Corpuscular Hemoglobin Concent 30.8 G/DL (32.0-36.0) L Red Cell Distribution Width 18.6 % (11.6-14.8) H Platelet Count 131 K/UL (150-450) L Mean Platelet Volume 7.1 FL (6.5-10.1) Neutrophils (%) (Auto) 70.4 % (45.0-75.0) Lymphocytes (%) (Auto) 16.8 % (20.0-45.0) L Monocytes (%) (Auto) 11.2 % (1.0-10.0) H Eosinophils (%) (Auto) 1.0 % (0.0-3.0) Basophils (%) (Auto) 0.6 % (0.0-2.0) Sodium Level 132 MMOL/L (136-145) L Potassium Level 5.8 MMOL/L (3.5-5.1) H Chloride Level 106 MMOL/L (98-107) Carbon Dioxide Level 20 MMOL/L (21-32) L Anion Gap 6 mmol/L (5-15) Blood Urea Nitrogen 25 mg/dL (7-18) H Creatinine 2.2 MG/DL (0.55-1.30) H Estimat Glomerular Filtration Rate mL/min (>60) Glucose Level 180 MG/DL (74-106) H Calcium Level 7.6 MG/DL (8.5-10.1) L Height (Feet): 5 Height (Inches): 5.00 Weight (Pounds): 174 General Appearance: WD/WN, no apparent distress, alert Cardiovascular: normal rate Respiratory/Chest: normal breath sounds, no respiratory distress Abdominal Exam: normal bowel sounds, non tender, soft, GT site Extremities: non-tender Omer Cunningham NP Apr 19, 2019 12:47
--- NOTE | 2019-04-19 13:52 | Pulmonology Progress Note ---
Assessment/Plan Problems: (1) C. difficile colitis (2) Acute respiratory failure with hypoxemia (3) Acute deep vein thrombosis (DVT) of both femoral veins (4) Thrombocytopenia (5) Invasive carcinoma of urinary bladder (6) CAD (coronary artery disease) (7) Anemia (8) Diabetes (9) HTN (hypertension) (10) Bladder cancer Assessment/Plan still has diarrhea tolerating Gtube venous studies of legs showed acute DVT bilaterally IVC filter done respiratory treatment check electrolytes titrate fiio2 to sat of 92% dvt prophylaxis. Subjective ROS Limited/Unobtainable: No Constitutional: Reports: no symptoms HEENT: Repors: no symptoms Respiratory: Reports: no symptoms Allergies: Coded Allergies: No Known Allergies (Unverified , 12/20/18) Objective Last 24 Hour Vital Signs Date Time Temp Pulse Resp B/P (MAP) Pulse Ox O2 Delivery O2 Flow Rate FiO2 04/19/19 13:31 92/73 04/19/19 12:00 97.0 76 18 92/73 (79) 97 04/19/19 09:00 Room Air 04/19/19 08:52 69 106/53 04/19/19 08:00 97.5 69 20 106/53 (70) 98 04/19/19 04:00 98.7 70 18 129/55 (79) 100 04/19/19 00:00 99.3 64 16 100/48 (65) 95 04/18/19 21:47 117/56 04/18/19 21:44 68 117/56 04/18/19 21:00 Room Air 04/18/19 20:00 98.4 80 20 132/88 (103) 96 04/18/19 16:00 98.9 71 17 115/55 (75) 98 Intake and Output 04/18/19 04/19/19 19:00 07:00 Intake Total 1625 ml 1625 ml Output Total 500 ml 320 ml Balance 1125 ml 1305 ml Free Water 200 ml 200 ml IV Total 825 ml 825 ml Tube Feeding 600 ml 600 ml Output Urine Total 500 ml 300 ml Stool Total 20 ml # Bowel Movements 60 Objective HEENT: normocephalic, atraumatic Respiratory/Chest: chest wall non-tender, normal breath sounds Cardiovascular: normal rate, regular rhythm Abdomen: normal bowel sounds, soft, non tender Genitourinary: normal external genitalia Extremities: no cyanosis Skin: no rash, no lesions Laboratory Tests 04/19/19 05:40: White Blood Count 6.0, Red Blood Count 3.16L, Hemoglobin 9.0L, Hematocrit 29.4L , Mean Corpuscular Volume 93, Mean Corpuscular Hemoglobin 28.6, Mean Corpuscular Hemoglobin Concent 30.8L, Red Cell Distribution Width 18.6H, Platelet Count 131L, Mean Platelet Volume 7.1, Neutrophils (%) (Auto) 70.4, Lymphocytes (%) (Auto) 16.8L, Monocytes (%) (Auto) 11.2H, Eosinophils (%) (Auto ) 1.0, Basophils (%) (Auto) 0.6, Sodium Level 132L, Potassium Level 5.8H, Chloride Level 106, Carbon Dioxide Level 20L, Anion Gap 6, Blood Urea Nitrogen 25H, Creatinine 2.2H, Estimat Glomerular Filtration Rate , Glucose Level 180H, Calcium Level 7.6L Current Medications Medications (Trade) Dose Ordered Sig/Sallie Route PRN Reason Start Time Stop Time Status Last Admin Dose Admin Acetaminophen (Tylenol) 650 mg Q4H PRN ORAL fever 04/06/19 14:00 05/01/19 13:59 Acetaminophen (Tylenol) 650 mg Q4H PRN ORAL Mild Pain/Temp > 100.5 04/13/19 16:15 05/13/19 16:14 04/17/19 22:46 Allopurinol (Allopurinol) 300 mg DAILY ORAL 04/07/19 09:00 05/03/19 09:59 04/19/19 08:51 Carvedilol (Coreg) 12.5 mg EVERY 12 HOURS ORAL 04/06/19 21:00 05/01/19 08:59 04/18/19 21:44 Chlorhexidine Gluconate (Abril-Hex 2%) 1 applic DAILY@1999 TOPIC 04/16/19 20:00 05/16/19 19:59 Dextrose (Dextrose 50%) 25 ml Q30M PRN IV Hypoglycemia 04/06/19 14:00 05/01/19 10:29 Dextrose (Dextrose 50%) 50 ml Q30M PRN IV Hypoglycemia 04/06/19 14:00 05/01/19 10:29 Fidaxomicin (Dificid) 200 mg EVERY 12 HOURS ORAL 04/16/19 21:00 04/23/19 20:59 04/19/19 08:51 Heparin Sodium (Porcine) (Heparin 5000 units/ml) 5,000 units EVERY 12 HOURS SUBQ 04/06/19 21:00 05/01/19 08:59 04/19/19 09:03 Hydralazine HCl (Apresoline) 50 mg Q8HR ORAL 04/06/19 14:00 05/01/19 13:59 04/18/19 05:37 Insulin Aspart (NovoLOG) BEFORE MEALS AND HS SUBQ 04/06/19 16:30 05/01/19 11:29 04/19/19 12:17 Lansoprazole (Prevacid) 30 mg DAILY GT 04/17/19 09:00 05/17/19 08:59 04/19/19 08:51 Memantine (Namenda) 5 mg BID ORAL 04/11/19 18:00 05/11/19 17:59 04/19/19 08:51 Minoxidil (Loniten) 2.5 mg Q4H PRN ORAL bp over 165 syst 04/06/19 14:00 05/01/19 13:59 Ondansetron HCl (Zofran) 4 mg Q6H PRN IVP Nausea & Vomiting 04/06/19 14:00 05/01/19 07:59 04/13/19 20:19 Quetiapine Fumarate (SEROqueL) 50 mg TWICE A DAY ORAL 04/06/19 18:00 05/03/19 17:59 04/19/19 08:51 Risperidone (RisperDAL) 1 mg Q12HR ORAL 04/12/19 15:00 05/12/19 14:59 04/19/19 08:51 Tamsulosin HCl (Flomax) 0.4 mg BID ORAL 04/06/19 18:00 05/01/19 12:59 04/19/19 08:51 Adam Moyer MD Apr 19, 2019 13:52
--- NOTE | 2019-04-19 14:03 | Nephrology Progress Note ---
Assessment/Plan Problem List: (1) ARF (acute renal failure) (2) Acute on chronic renal insufficiency (3) Diabetes (4) HTN (hypertension) (5) Bladder cancer (6) Invasive carcinoma of urinary bladder (7) Anemia Assessment Acute renal failure ? Superimposed CKD Bladder Mass / h/o Hematuria HTN DM Anemia, previous transfusions s/p Cystoscopy 12/28 Plan stop k supplement has PEG on GT feeding med-surg favor transfusion Hydrate richardson IV Iron BP management, BP med adjustment Monitor lytes and renal parameters Kidney ESDRAS , no hydro per orders Previous Uro note: Tolerated bladder tumor resection well. Unfortunately greater part of the bladder is involved and essentially replaced all normal bladder with tumor. I can not resect all the tumors. Patient needs a radical cystectomy (removal of bladder) or radiation/chemotherapy at higher level of care. 1. recommend transfer to higher level of care for cystectomy 2. continue richardson, keep irrigation to maintain light pink urine. Multiple mass like lesions within the bladder. Further evaluation with cystoscopy is recommended to evaluate for possible neoplasm. Multiple parapelvic renal cysts Subjective ROS Limited/Unobtainable: No Constitutional: Reports: malaise, weakness Objective Objective Last 24 Hour Vital Signs Date Time Temp Pulse Resp B/P (MAP) Pulse Ox O2 Delivery O2 Flow Rate FiO2 04/19/19 13:31 92/73 04/19/19 12:00 97.0 76 18 92/73 (79) 97 04/19/19 09:00 Room Air 04/19/19 08:52 69 106/53 04/19/19 08:00 97.5 69 20 106/53 (70) 98 04/19/19 04:00 98.7 70 18 129/55 (79) 100 04/19/19 00:00 99.3 64 16 100/48 (65) 95 04/18/19 21:47 117/56 04/18/19 21:44 68 117/56 04/18/19 21:00 Room Air 04/18/19 20:00 98.4 80 20 132/88 (103) 96 04/18/19 16:00 98.9 71 17 115/55 (75) 98 Intake and Output 04/18/19 04/19/19 19:00 07:00 Intake Total 1625 ml 1625 ml Output Total 500 ml 320 ml Balance 1125 ml 1305 ml Free Water 200 ml 200 ml IV Total 825 ml 825 ml Tube Feeding 600 ml 600 ml Output Urine Total 500 ml 300 ml Stool Total 20 ml # Bowel Movements 60 Laboratory Tests 04/19/19 05:40: White Blood Count 6.0, Red Blood Count 3.16L, Hemoglobin 9.0L, Hematocrit 29.4L , Mean Corpuscular Volume 93, Mean Corpuscular Hemoglobin 28.6, Mean Corpuscular Hemoglobin Concent 30.8L, Red Cell Distribution Width 18.6H, Platelet Count 131L, Mean Platelet Volume 7.1, Neutrophils (%) (Auto) 70.4, Lymphocytes (%) (Auto) 16.8L, Monocytes (%) (Auto) 11.2H, Eosinophils (%) (Auto ) 1.0, Basophils (%) (Auto) 0.6, Sodium Level 132L, Potassium Level 5.8H, Chloride Level 106, Carbon Dioxide Level 20L, Anion Gap 6, Blood Urea Nitrogen 25H, Creatinine 2.2H, Estimat Glomerular Filtration Rate , Glucose Level 180H, Calcium Level 7.6L Height (Feet): 5 Height (Inches): 5.00 Weight (Pounds): 174 General Appearance: no apparent distress, lethargic Neck: limited range of motion Cardiovascular: normal rate Respiratory/Chest: decreased breath sounds Abdomen: distended Objective no change Russell Sofia MD Apr 19, 2019 14:03
--- NOTE | 2019-04-19 14:33 | NUR ---
NURSE NOTES: PT WITH LIQUID STOOL DRAINING VIA RECTAL TUBE BY GRAVITY. PT REPEATEDLY YELLS FOR FOOD. PT EDUCATED ON G-TUBE FEEDING NOW. PT UNABLE TO COMPREHEND, AND CONTINUES TO YELL FOR FOOD. WOUND DRESSINGS CHANGED ORDERED. SACRAL DRESSING CHANGED DUE TO SOILAGE. OPTIFOAM APPLIED TO BILATERAL HEELS FOR PROTECTION. BILATERAL HEELS OFF-LOADED. PT PLACED IN HIGH WYNNE'S POSITION. BED IN LOWEST POSITION WITH BEDSIDE RAILS X2 RAISED. IN NO APPARENT DISTRESS AT THIS TIME. WILL CONTINUE TO MONITOR.
--- NOTE | 2019-04-19 14:45 | Surgery Progress Note ---
Surgery Progress Note Subjective Additional Comments comfortable no acute events no complaints eating well Objective Last 24 Hour Vital Signs Date Time Temp Pulse Resp B/P (MAP) Pulse Ox O2 Delivery O2 Flow Rate FiO2 04/19/19 13:31 92/73 04/19/19 12:00 97.0 76 18 92/73 (79) 97 04/19/19 09:00 Room Air 04/19/19 08:52 69 106/53 04/19/19 08:00 97.5 69 20 106/53 (70) 98 04/19/19 04:00 98.7 70 18 129/55 (79) 100 04/19/19 00:00 99.3 64 16 100/48 (65) 95 04/18/19 21:47 117/56 04/18/19 21:44 68 117/56 04/18/19 21:00 Room Air 04/18/19 20:00 98.4 80 20 132/88 (103) 96 04/18/19 16:00 98.9 71 17 115/55 (75) 98 I&O Intake and Output 04/18/19 04/19/19 19:00 07:00 Intake Total 1625 ml 1625 ml Output Total 500 ml 320 ml Balance 1125 ml 1305 ml Free Water 200 ml 200 ml IV Total 825 ml 825 ml Tube Feeding 600 ml 600 ml Output Urine Total 500 ml 300 ml Stool Total 20 ml # Bowel Movements 60 Dressing: other Wound: other Drains: other Cardiovascular: RSR Respiratory: decreased breath sounds Abdomen: soft, present bowel sounds Extremities: edema, no cyanosis, other Laboratory Tests Test 04/19/19 05:40 White Blood Count 6.0 K/UL (4.8-10.8) Red Blood Count 3.16 M/UL (4.70-6.10) L Hemoglobin 9.0 G/DL (14.2-18.0) L Hematocrit 29.4 % (42.0-52.0) L Mean Corpuscular Volume 93 FL (80-99) Mean Corpuscular Hemoglobin 28.6 PG (27.0-31.0) Mean Corpuscular Hemoglobin Concent 30.8 G/DL (32.0-36.0) L Red Cell Distribution Width 18.6 % (11.6-14.8) H Platelet Count 131 K/UL (150-450) L Mean Platelet Volume 7.1 FL (6.5-10.1) Neutrophils (%) (Auto) 70.4 % (45.0-75.0) Lymphocytes (%) (Auto) 16.8 % (20.0-45.0) L Monocytes (%) (Auto) 11.2 % (1.0-10.0) H Eosinophils (%) (Auto) 1.0 % (0.0-3.0) Basophils (%) (Auto) 0.6 % (0.0-2.0) Sodium Level 132 MMOL/L (136-145) L Potassium Level 5.8 MMOL/L (3.5-5.1) H Chloride Level 106 MMOL/L (98-107) Carbon Dioxide Level 20 MMOL/L (21-32) L Anion Gap 6 mmol/L (5-15) Blood Urea Nitrogen 25 mg/dL (7-18) H Creatinine 2.2 MG/DL (0.55-1.30) H Estimat Glomerular Filtration Rate mL/min (>60) Glucose Level 180 MG/DL (74-106) H Calcium Level 7.6 MG/DL (8.5-10.1) L Plan Problems: (1) Scrotal lesion Assessment & Plan: This is a 83-year-old male with multiple medical morbidities who was identified to have abnormal scrotal lesions on admission. There are 3 lesions on the scrotum clearly identified and likely old small abscesses or carbuncles which have healed slowly. Patient is incontinent With leakage of stool identified around the scrotal sac on the posterior aspect where the lesions are located. No signs of active infection no active drainage nontender skin macerated Recommend washing the scrotum daily with normal saline. Apply skin protectant and moisture absorbent dressing daily and as needed saturation Physical examination was identified to have a draining pustule in the left shaft base of the penis. There is an opening less than a centimeter with drainage of some mild seropurulent fluid and some slough. Wound irrigated cleansed and some non-excisional debridement with gauze was performed. There is significant edema in the area no cellulitis skin otherwise intact. Fair amount of moisture in the area. Will continue with local care We will follow and monitor for healing Pain is still swollen and has a wound on the left base 1 cm opening some slough. Some non-excisional debridement done at bedside. We will continue to monitor wound. vPt presented on admission with multiple pressure injuries. Scattered pressure injuries at base of scrotum resolving . [place] epithelial noted . Full thickness pressure injury at base of penile shaft and scrotum with loose fibrinous slough.Wound Bioburden removed with curette by Dr. Pepe.Small amt slough at base noted.Edges adherent to base of wound(L)1cm x (W)2cm. Full thickness sacral pressure injury resolving. Scattered slough at base of wound. [place] epithelial borders that are flat ad adherent to base of wound.No odor or exudate noted.Periwound withot erythema or induration.(L)7cm x (W)10cm. Tx.Plan:Cleanse wound base of penis with saline. Apply Therahoney. Apply Cavilon Skin BArrier periwound. Cover with Optifoam drsg. Change daily and prn. Cleanse Sacral wound with Saline. Apply Therahoney. Apply Moisture Barrier arita periwound. Cover with Optifoam Drsg. Change every 3 days and prn. Apply Moisture Barrier Paste to Scrotum with Each incontinence care. Reposition at least every 2hours or as tolerated. Off-load heels with pillow. APM/NOLBERTO Mattress overlay. a (2) Sacral decubitus ulcer, stage III Assessment & Plan: Pt presented on admission with multiple pressure injuries. Full thickness sacral pressure injury. Base of wound is viable with an area that is purple in center. Semi-detached black borders(L)9.5cm x (W)4.9cm x(D) 0.2cm .Non-blanching erythema periwound. Multiple pressure injuries Scrotum. Base of pressure injury R scrotum 75% pink granulation,25% slough. Edges pink,flat and adherent to base of wound.(L)2.2cm x (W)0.9cm.Ful thickness pressure injury center -base of scrotum (L)0.5cm x (W) 0.4cm. Base of wound has 100% slough. Full thickness pressure injury L scrotum ( L)2cm x (W01.1cm. Base of wound has 90% slough ,10% viable. Reabsorbing blood blister R heel heel. Base of wound black (L)2.2cm x (W)2cm with red tinged borders with fluctuance. (L)5.5cm x(W)5cm. Reabsorbing Blood Blister L heel. Base of wound is black ,dry with maroon and fluctuant borders.(L)6.5cm x (W)6cm Abd folds are moist and dark but is intact. Penile wound identified. Now open from edema. Slough noted. Slough wiped and cleaned. Non-excisional debridement performed. Wound stable. No longer draining. Tx.Plan: Cleanse Sacral wound with Saline. Apply Therahoney. Apply Moisture Barrier Paste periwound. Cover with Optifoam drsg Daily and prn. Cleanse wounds on Scrotum with saline. Apply Therhaoney to each wound. Cover with Optifoam drsg. Change Daily and prn. Bacitracin to penile wound. Apply Moisture Barrier to Abd folds and Bilat groin Daily and prn. APM/NOLBERTO Mattress overlay. Reposition at least every 2hours or as tolerated. Off-load heels with pillow. (3) Bladder cancer (4) C. difficile colitis Assessment & Plan: blood cultures negative C diff positive - discussed with ID cont abx labs noted and improved exam stable cont current tx Bebeto Pepe Apr 19, 2019 14:44
--- NOTE | 2019-04-19 15:45 | Progress Note ---
DATE: 04/19/2019 SUBJECTIVE: This is an 83-year-old male patient with altered mental status, confusion, decline in cognition below his baseline. He has low O2 saturation and he also has dehydration, electrolyte imbalance, coronary artery disease, diabetes, hypertension that is causing him to have a decline in cognition below his baseline with mood lability. That is why, his attending physician has requested daily psychiatric consultation. MENTAL STATUS EXAMINATION: This is an 83-year-old male. Appearance is disheveled. Attitude, irritable and agitated. Affect, guarded and restricted. Intellect poor. Mood, depressed and anxious. Motor activity, psychomotor agitation. Attention span is poor. Orientation x2. Speech is well pressured, nonsensical. Thought process is disorganized, illogical. Insight and judgment is poor. DIAGNOSIS: Major depressive disorder, severe, recurrent with psychotic features, rule out dementia with psychosis. PLAN: Treat him with Risperdal 1 mg p.o. q.12 hours, Seroquel 50 mg twice a day, Namenda 5 twice a day, Ativan 0.5 mg every 6 hours p.r.n. anxiety and agitation. 20 minutes of cognitive behavioral therapy to help him identify his automatic negative thoughts and help him convert those negative thoughts to more positive thoughts to reduce depression, anxiety, mood lability. Chart reviewed. Discussed with staff. Seen and assessed in his room. Ami Hennessy M.D. DR: TAMERA JOB#: [id number] CC:
[2019-04-19 16:00] VITALS: BP 120/74
--- NOTE | 2019-04-19 19:29 | NUR ---
HAND-OFF: Report given to Arpita GRACE RN.
[2019-04-19 20:00] VITALS: BP 152/55
--- NOTE | 2019-04-19 20:00 | NUR ---
NURSE NOTES: RECEIVED PT FROM MATT MARINO. PT IS AWAKE, AAOX1, ON ROOM AIR, NO ACUTE DISTRESS NOTED. G-TUBE FEEDING IS INTACT AND PATENT, NO RESIDUALS, RUNNING GLUCERNA 1.5 AT 50ML. PT IS TOLERATING FEEDING WELL. RECTAL TUBE IS IN PLACE AND DRAINING WELL. IV ON RIGHT WRIST 22G IS INTACT AND PATENT. BED IS LOCKED AND LOW, BED ALARMS ACTIVE, SIDE RAILS UP X2, AND CALL LIGHT IS WITHIN REACH. WILL CONTINUE TO MONITOR CLOSELY.
[2019-04-19] MEDS: Dyna-Hex 2% Top Sol 2oz TOPIC SCH (21:23)
[2019-04-20 04:00] VITALS: BP 159/68
[2019-04-20] MEDS: NovoLOG Insulin Flexpen SUBQ SCH ×4 (06:18→21:26)
[2019-04-20] MEDS: HydrALAZINE 50mg tab ORAL SCH ×3 (06:19→21:30)
[2019-04-20 06:29] LABS: BASOPHILS % (AUTO) 0.8 % (0.0-2.0); EOSINOPHILS % (AUTO) 1.4 % (0.0-3.0); HEMATOCRIT 25.6 % (42.0-52.0); LYMPHOCYTES % (AUTO) 12.2 % (20.0-45.0); MEAN CORPUSCULAR VOLUME 92 FL (80-99); MONOCYTES % (AUTO) 12.2 % (1.0-10.0); NEUTROPHILS % (AUTO) 73.5 % (45.0-75.0); PLATELET COUNT 128 K/UL (150-450); RED BLOOD COUNT 2.79 M/UL (4.70-6.10); RED CELL DISTRIBUTION WIDTH 18.3 % (11.6-14.8); WHITE BLOOD COUNT 6.2 K/UL (4.8-10.8)
[2019-04-20 07:06] LABS: ALANINE AMINOTRANSFERASE 8 U/L (12-78); ALBUMIN 1.4 G/DL (3.4-5.0); ALBUMIN/GLOBULIN RATIO 0.4 (1.0-2.7); ALKALINE PHOSPHATASE 97 U/L (46-116); ANION GAP 5 mmol/L (5-15); ASPARTATE AMINO TRANSFERASE 16 U/L (15-37); BILIRUBIN,TOTAL 0.2 MG/DL (0.2-1.0); BLOOD UREA NITROGEN 31 mg/dL (7-18); CALCIUM 7.4 MG/DL (8.5-10.1); CARBON DIOXIDE 21 MMOL/L (21-32); CHLORIDE 107 MMOL/L (98-107); PHOSPHORUS 2.6 MG/DL (2.5-4.9); SODIUM 133 MMOL/L (136-145)
--- NOTE | 2019-04-20 07:10 | NUR ---
HAND-OFF: Report given to MATT De La Rosa. Pt is in stable condition. Endorsed to follow up with MD about critical lab result and plan of care.
--- NOTE | 2019-04-20 07:22 | NUR ---
NURSE NOTES: CALLED AND LEFT MESSAGE TO DR. DANIELS ABOUT POTASSIUM RESULT 6.0, AWAITING FOR CALL BACK.
--- NOTE | 2019-04-20 07:23 | NUR ---
NURSE NOTES: PT AXOX4, CALM, EATING BREAKFAST IN BED. IN NO APPARENT DISTRESS AT THIS TIME. BED IN LOWEST POSITION WITH BEDSIDE RAILS X2. RN EDUCATED PT ON PLAN FOR BLOOD TRANSFUSION 2 UNITS TODAY AFTER LAB RESULTS. PT VERBALIZED UNDERSTANDING. CALL LIGHT WITHIN REACH. WILL CONTINUE TO MONITOR. Addendum: 04/20/19 at 0724 by JAMILA BENNETT RN RN WRONG PT.
[2019-04-20] MEDS ORDERED: Sodium Polystyrene Sulfonate 15gm Powder GT SCH (07:30)
[2019-04-20 08:00] VITALS: BP 113/66
--- NOTE | 2019-04-20 08:30 | Progress Note ---
DATE: 04/20/2019 SUBJECTIVE: This is an 83-year-old male patient with low O2 saturation, but he has altered mental status, confusion, decline in cognition below his baseline. MENTAL STATUS EXAMINATION: This is an 83-year-old male. Appearance is disheveled. Attitude, irritable and agitated. Affect, guarded and restricted. Intellect poor. Mood, depressed and anxious. Motor activity, psychomotor agitation. Attention span is poor. Orientation x2. Speech is pressured. Thought process, disorganized and illogical. Insight and judgment is poor. DIAGNOSIS: Paranoid schizophrenia with acute exacerbation. PLAN: Continue treatment with psychotropic medications to stabilize his mood. Provided with 20 minutes of reality-based supportive psychotherapy and 20 minutes of cognitive behavioral therapy to help him identify his automatic negative thoughts and help him convert those negative thoughts to more positive thoughts to reduce depression, anxiety, mood lability. Chart reviewed. Discussed with staff. Seen and assessed at the bedside. Ami Hennessy M.D. DR: VINCENT JOB#: [id number] CC:
--- NOTE | 2019-04-20 08:37 | Nephrology Progress Note ---
Assessment/Plan Problem List: (1) ARF (acute renal failure) (2) Acute on chronic renal insufficiency (3) Diabetes (4) HTN (hypertension) (5) Bladder cancer (6) Invasive carcinoma of urinary bladder (7) Anemia Assessment Acute renal failure ? Superimposed CKD Bladder Mass / h/o Hematuria HTN DM Anemia, previous transfusions s/p Cystoscopy 12/28 Plan stop k supplement Kayexelate has PEG on GT feeding med-surg favor transfusion Hydrate richardson IV Iron BP management, BP med adjustment Monitor lytes and renal parameters Kidney ESDRAS , no hydro per orders Previous Uro note: Tolerated bladder tumor resection well. Unfortunately greater part of the bladder is involved and essentially replaced all normal bladder with tumor. I can not resect all the tumors. Patient needs a radical cystectomy (removal of bladder) or radiation/chemotherapy at higher level of care. 1. recommend transfer to higher level of care for cystectomy 2. continue richardson, keep irrigation to maintain light pink urine. Multiple mass like lesions within the bladder. Further evaluation with cystoscopy is recommended to evaluate for possible neoplasm. Multiple parapelvic renal cysts Subjective ROS Limited/Unobtainable: No Constitutional: Reports: malaise, weakness Objective Objective Last 24 Hour Vital Signs Date Time Temp Pulse Resp B/P (MAP) Pulse Ox O2 Delivery O2 Flow Rate FiO2 04/20/19 08:00 98.8 69 17 113/66 (82) 96 04/20/19 06:19 159/68 04/20/19 04:00 97.9 72 16 159/68 (98) 98 04/19/19 22:16 146/64 04/19/19 21:23 70 152/55 04/19/19 21:00 Room Air 04/19/19 20:00 99.0 70 16 152/55 (87) 98 04/19/19 16:00 97.7 70 18 120/74 (89) 98 04/19/19 13:31 92/73 04/19/19 12:00 97.0 76 18 92/73 (79) 97 04/19/19 09:00 Room Air 04/19/19 08:52 69 106/53 Intake and Output 04/19/19 04/20/19 18:59 06:59 Intake Total 1080 ml 700 ml Output Total 700 ml 400 ml Balance 380 ml 300 ml Free Water 330 ml 100 ml IV Total 150 ml Tube Feeding 600 ml 600 ml Output Urine Total 500 ml 400 ml Stool Total 200 ml Laboratory Tests 04/20/19 06:10: White Blood Count 6.2, Red Blood Count 2.79L, Hemoglobin 8.0L, Hematocrit 25.6L , Mean Corpuscular Volume 92, Mean Corpuscular Hemoglobin 28.8, Mean Corpuscular Hemoglobin Concent 31.4L, Red Cell Distribution Width 18.3H, Platelet Count 128L, Mean Platelet Volume 6.9, Neutrophils (%) (Auto) 73.5, Lymphocytes (%) (Auto) 12.2L, Monocytes (%) (Auto) 12.2H, Eosinophils (%) (Auto ) 1.4, Basophils (%) (Auto) 0.8, Sodium Level 133L, Potassium Level 6.0*H, Chloride Level 107, Carbon Dioxide Level 21, Anion Gap 5, Blood Urea Nitrogen 31H, Creatinine 2.0H, Estimat Glomerular Filtration Rate , Glucose Level 203H, Uric Acid 6.4, Calcium Level 7.4L, Phosphorus Level 2.6, Magnesium Level 1.9, Total Bilirubin 0.2, Aspartate Amino Transf (AST/SGOT) 16, Alanine Aminotransferase (ALT/SGPT) 8L, Alkaline Phosphatase 97, C-Reactive Protein, Quantitative 4.9H, Pro-B-Type Natriuretic Peptide 2475H, Total Protein 5.3L, Albumin 1.4L, Globulin 3.9, Albumin/Globulin Ratio 0.4L Height (Feet): 5 Height (Inches): 5.00 Weight (Pounds): 174 General Appearance: no apparent distress Respiratory/Chest: decreased breath sounds Abdomen: other - PEG Objective no change Russell Sofia MD Apr 20, 2019 08:37
[2019-04-20] MEDS: Carvedilol 12.5mg tab ORAL SCH ×2 (09:00→21:27)
--- NOTE | 2019-04-20 09:00 | General Progress Note ---
Assessment/Plan Assessment/Plan: (1) Bladder cancer s/p resection (2) H/O CVA (3) Sacral decubitus ulcer Patient to be continued on Tylenol. D/w Dr. Ruelas and he concurred. Subjective Date patient seen: Apr 20, 2019 Time patient seen: 08:15 - am Allergies: Coded Allergies: No Known Allergies (Unverified , 12/20/18) Subjective Constitutional: Reports: no symptoms HEENT: Reports: no symptoms Cardiovascular: Reports: no symptoms Respiratory: Reports: no symptoms Gastrointestinal/Abdominal: Reports: no symptoms Genitourinary: Reports: no symptoms Neurologic/Psychiatric: Reports: weakness Endocrine: Reports: no symptoms Hematologic/Lymphatic: Reports: no symptoms Subjective Patient is in bed no signs of pain or distress. Denies pain at this time. Objective Last 24 Hour Vital Signs Date Time Temp Pulse Resp B/P (MAP) Pulse Ox O2 Delivery O2 Flow Rate FiO2 04/20/19 08:00 98.8 69 17 113/66 (82) 96 04/20/19 06:19 159/68 04/20/19 04:00 97.9 72 16 159/68 (98) 98 04/19/19 22:16 146/64 04/19/19 21:23 70 152/55 04/19/19 21:00 Room Air 04/19/19 20:00 99.0 70 16 152/55 (87) 98 04/19/19 16:00 97.7 70 18 120/74 (89) 98 04/19/19 13:31 92/73 04/19/19 12:00 97.0 76 18 92/73 (79) 97 04/19/19 09:00 Room Air Intake and Output 04/19/19 04/20/19 19:00 07:00 Intake Total 1080 ml 700 ml Output Total 700 ml 400 ml Balance 380 ml 300 ml Free Water 330 ml 100 ml IV Total 150 ml Tube Feeding 600 ml 600 ml Output Urine Total 500 ml 400 ml Stool Total 200 ml Laboratory Tests 04/20/19 06:10: White Blood Count 6.2, Red Blood Count 2.79L, Hemoglobin 8.0L, Hematocrit 25.6L , Mean Corpuscular Volume 92, Mean Corpuscular Hemoglobin 28.8, Mean Corpuscular Hemoglobin Concent 31.4L, Red Cell Distribution Width 18.3H, Platelet Count 128L, Mean Platelet Volume 6.9, Neutrophils (%) (Auto) 73.5, Lymphocytes (%) (Auto) 12.2L, Monocytes (%) (Auto) 12.2H, Eosinophils (%) (Auto ) 1.4, Basophils (%) (Auto) 0.8, Sodium Level 133L, Potassium Level 6.0*H, Chloride Level 107, Carbon Dioxide Level 21, Anion Gap 5, Blood Urea Nitrogen 31H, Creatinine 2.0H, Estimat Glomerular Filtration Rate , Glucose Level 203H, Uric Acid 6.4, Calcium Level 7.4L, Phosphorus Level 2.6, Magnesium Level 1.9, Total Bilirubin 0.2, Aspartate Amino Transf (AST/SGOT) 16, Alanine Aminotransferase (ALT/SGPT) 8L, Alkaline Phosphatase 97, C-Reactive Protein, Quantitative 4.9H, Pro-B-Type Natriuretic Peptide 2475H, Total Protein 5.3L, Albumin 1.4L, Globulin 3.9, Albumin/Globulin Ratio 0.4L Height (Feet): 5 Height (Inches): 5.00 Weight (Pounds): 174 Objective General Appearance: no apparent distress, alert EENT: PERRL/EOMI, normal ENT inspection Neck: non-tender, normal alignment Cardiovascular: normal rate, regular rhythm Respiratory/Chest: decreased breath sounds Abdomen: other - obese Edema: trace edema Neurologic: alert, oriented x 3 Skin: warm/dry Jewel Frank Apr 20, 2019 09:00
[2019-04-20] MEDS: Metoclopramide 10mg/2ml Inj IVP SCH ×3 (09:07→23:30)
[2019-04-20] MEDS: Tamsulosin 0.4mg cap ORAL SCH ×2 (09:08→17:06)
[2019-04-20] MEDS: Memantine 5 MG TAB ORAL SCH ×2 (09:08→17:06)
[2019-04-20] MEDS: Heparin 5000 units/ml inj SUBQ SCH ×2 (09:10→21:27)
--- NOTE | 2019-04-20 09:14 | NUR ---
RD ASSESSMENT & RECOMMENDATIONS SEE CARE ACTIVITY FOR COMPLETE ASSESSMENT DAILY ESTIMATED NEEDS: Needs based on wounds, cancer, obese; 84kg adj 20-25 kcals/kg 1680- 2100 total kcals 1.25-1.5 g protein/kg 84- 126 g total protein 25-30 mL/kg 2100- 2520 total fluid mLs NUTRITION DIAGNOSIS: 1) Increased protein needs r/t wounds AEb multiple full thickness wounds, refer to eval. 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 3) Altered nutrition related lab values r/t clinical status as evidenced by elev BG (203 216), Na 150- wnl, K 3.1- 6.0*, elev BUN/ creat. CURRENT TF:Glucerna 1.5 @50 ml /hr x24 hrs ENTERAL NUTRITION RECOMMENDATIONS: TF CHANGE-> NEPRO goal of 45ml/hr x24 hrs to provide 1080ml, 1944 kcal, 87g pro, 785ml free H2O, 1145mg K - rec TF change Nepro, start @25ml/hr for 6 hrs. Advance as tolerated 10ml/hr q4-6 hrs to goal of 45ml/hr x24 hrs - HOB > 30 degrees. - Flush per MD. ADDITIONAL RECOMMENDATIONS: 1) Re-calibrate bed scale w/ added P200 mattress for accurate CBW 2) Monitor lytes, rec TF change to NEPRO (K now 6.0*) 3) Wound care: Ananda in 4oz water BID via GT + Vit C/ dosing per Renal MD 4) Consider long acting insulin w/ 24 hrs TF feeds. . .
--- NOTE | 2019-04-20 09:20 | General Progress Note ---
Assessment/Plan Assessment/Plan: (1) C. difficile colitis ICD Codes: A04.72 - Enterocolitis due to Clostridium difficile, not specified as recurrent SNOMED: 553349464 (2) Dehydration ICD Codes: E86.0 - Dehydration SNOMED: 37238470 (3) Anemia ICD Codes: D64.9 - Anemia, unspecified SNOMED: 453879257 Status: unchanged Status Narrative Discussed with Dr. Valiente. Assessment/Plan C Diff Colitis Anemia OB (+) OBS Dementia diarrhea anorexia Decubitus ulcer Calorie count d/w with RD, patient not meeting nutrition needs >> s/p PEG. Ok for oral gratification. Antibiotics per infectious diseases send for additional cdiff given persistent diarrhea, consider Imodium if negative off PPI IV and p.o. hydration plus electrolyte correction Monitor H&H, PRN transfusions off all laxatives Ensure s/p IVC filter placement. PRN transfusions Pepcid 20 mg twice daily GTF changed to nephro given elevated K decrease GTF to 40 cc Subjective ROS Limited/Unobtainable: No Allergies: Coded Allergies: No Known Allergies (Unverified , 12/20/18) Objective Last 24 Hour Vital Signs Date Time Temp Pulse Resp B/P (MAP) Pulse Ox O2 Delivery O2 Flow Rate FiO2 04/20/19 09:00 69 113/66 04/20/19 08:00 98.8 69 17 113/66 (82) 96 04/20/19 06:19 159/68 04/20/19 04:00 97.9 72 16 159/68 (98) 98 04/19/19 22:16 146/64 04/19/19 21:23 70 152/55 04/19/19 21:00 Room Air 04/19/19 20:00 99.0 70 16 152/55 (87) 98 04/19/19 16:00 97.7 70 18 120/74 (89) 98 04/19/19 13:31 92/73 04/19/19 12:00 97.0 76 18 92/73 (79) 97 Intake and Output 04/19/19 04/20/19 19:00 07:00 Intake Total 1080 ml 700 ml Output Total 700 ml 400 ml Balance 380 ml 300 ml Free Water 330 ml 100 ml IV Total 150 ml Tube Feeding 600 ml 600 ml Output Urine Total 500 ml 400 ml Stool Total 200 ml Laboratory Tests 04/20/19 06:10: White Blood Count 6.2, Red Blood Count 2.79L, Hemoglobin 8.0L, Hematocrit 25.6L , Mean Corpuscular Volume 92, Mean Corpuscular Hemoglobin 28.8, Mean Corpuscular Hemoglobin Concent 31.4L, Red Cell Distribution Width 18.3H, Platelet Count 128L, Mean Platelet Volume 6.9, Neutrophils (%) (Auto) 73.5, Lymphocytes (%) (Auto) 12.2L, Monocytes (%) (Auto) 12.2H, Eosinophils (%) (Auto ) 1.4, Basophils (%) (Auto) 0.8, Sodium Level 133L, Potassium Level 6.0*H, Chloride Level 107, Carbon Dioxide Level 21, Anion Gap 5, Blood Urea Nitrogen 31H, Creatinine 2.0H, Estimat Glomerular Filtration Rate , Glucose Level 203H, Uric Acid 6.4, Calcium Level 7.4L, Phosphorus Level 2.6, Magnesium Level 1.9, Total Bilirubin 0.2, Aspartate Amino Transf (AST/SGOT) 16, Alanine Aminotransferase (ALT/SGPT) 8L, Alkaline Phosphatase 97, C-Reactive Protein, Quantitative 4.9H, Pro-B-Type Natriuretic Peptide 2475H, Total Protein 5.3L, Albumin 1.4L, Globulin 3.9, Albumin/Globulin Ratio 0.4L Height (Feet): 5 Height (Inches): 5.00 Weight (Pounds): 174 General Appearance: no apparent distress EENT: normal ENT inspection Neck: supple Cardiovascular: normal rate Respiratory/Chest: decreased breath sounds Abdomen: normal bowel sounds, non tender, soft Extremities: non-tender Terell Valiente MD Apr 20, 2019 09:20
--- NOTE | 2019-04-20 09:49 | General Progress Note ---
Assessment/Plan Problem List: (1) Invasive carcinoma of urinary bladder ICD Codes: C67.9 - Malignant neoplasm of bladder, unspecified SNOMED: 985330602 (2) Anemia ICD Codes: D64.9 - Anemia, unspecified SNOMED: 055954190 (3) Diabetes ICD Codes: E11.9 - Type 2 diabetes mellitus without complications SNOMED: 96805986 (4) HTN (hypertension) ICD Codes: I10 - Essential (primary) hypertension SNOMED: 31017441 (5) Urinary tract infection ICD Codes: N39.0 - Urinary tract infection, site not specified SNOMED: 27751746 (6) Bladder cancer ICD Codes: C67.9 - Malignant neoplasm of bladder, unspecified SNOMED: 162448802 Assessment/Plan: pt diet eval 02 pulm tx abx uro f/u cbc bmp am advance diet if paco transfuse prn dc plan snf Subjective Constitutional: Reports: weakness Allergies: Coded Allergies: No Known Allergies (Unverified , 12/20/18) All Systems: reviewed and negative except above Subjective o2nc sleepy calm Objective Last 24 Hour Vital Signs Date Time Temp Pulse Resp B/P (MAP) Pulse Ox O2 Delivery O2 Flow Rate FiO2 04/20/19 09:00 69 113/66 04/20/19 08:00 98.8 69 17 113/66 (82) 96 04/20/19 06:19 159/68 04/20/19 04:00 97.9 72 16 159/68 (98) 98 04/19/19 22:16 146/64 04/19/19 21:23 70 152/55 04/19/19 21:00 Room Air 04/19/19 20:00 99.0 70 16 152/55 (87) 98 04/19/19 16:00 97.7 70 18 120/74 (89) 98 04/19/19 13:31 92/73 04/19/19 12:00 97.0 76 18 92/73 (79) 97 Intake and Output 04/19/19 04/20/19 19:00 07:00 Intake Total 1080 ml 700 ml Output Total 700 ml 400 ml Balance 380 ml 300 ml Free Water 330 ml 100 ml IV Total 150 ml Tube Feeding 600 ml 600 ml Output Urine Total 500 ml 400 ml Stool Total 200 ml Laboratory Tests 04/20/19 06:10: White Blood Count 6.2, Red Blood Count 2.79L, Hemoglobin 8.0L, Hematocrit 25.6L , Mean Corpuscular Volume 92, Mean Corpuscular Hemoglobin 28.8, Mean Corpuscular Hemoglobin Concent 31.4L, Red Cell Distribution Width 18.3H, Platelet Count 128L, Mean Platelet Volume 6.9, Neutrophils (%) (Auto) 73.5, Lymphocytes (%) (Auto) 12.2L, Monocytes (%) (Auto) 12.2H, Eosinophils (%) (Auto ) 1.4, Basophils (%) (Auto) 0.8, Sodium Level 133L, Potassium Level 6.0*H, Chloride Level 107, Carbon Dioxide Level 21, Anion Gap 5, Blood Urea Nitrogen 31H, Creatinine 2.0H, Estimat Glomerular Filtration Rate , Glucose Level 203H, Uric Acid 6.4, Calcium Level 7.4L, Phosphorus Level 2.6, Magnesium Level 1.9, Total Bilirubin 0.2, Aspartate Amino Transf (AST/SGOT) 16, Alanine Aminotransferase (ALT/SGPT) 8L, Alkaline Phosphatase 97, C-Reactive Protein, Quantitative 4.9H, Pro-B-Type Natriuretic Peptide 2475H, Total Protein 5.3L, Albumin 1.4L, Globulin 3.9, Albumin/Globulin Ratio 0.4L Height (Feet): 5 Height (Inches): 5.00 Weight (Pounds): 174 General Appearance: lethargic EENT: normal ENT inspection Neck: normal alignment Cardiovascular: normal peripheral pulses, normal rate, regular rhythm Respiratory/Chest: chest wall non-tender, lungs clear, normal breath sounds Abdomen: normal bowel sounds, non tender, soft Extremities: normal inspection Edema: no edema noted Arm (L), no edema noted Arm (R), no edema noted Leg (L), no edema noted Leg (R), no edema noted Pedal (L), no edema noted Pedal (R), no edema noted Generalized Neurologic: motor weakness Skin: normal pigmentation, warm/dry Jamie Gray DO Apr 20, 2019 09:49
--- NOTE | 2019-04-20 10:22 | NUR ---
NURSE NOTES: PER AIR CREW SUPERVISOR GLEN, RECOMMEND TO CHANGE TUBE FEEDING TO NEPRO AT 45 CC/H. RN MADE TANIKA, SUPERVISOR SAMPLE PREPARATION, AWARE WITH ORDER TO CHANGE TO AIR CREW SUPERVISOR'S RECOMMENDATIONS. RN RECEIVED CALL FROM DR HAYWARD WITH ORDER TO CHANGE FEEDING RATE TO 40CC/H INSTEAD, ORDERS ENTERED. PT IN NO APPARENT DISTRESS AT THIS TIME. MINIMAL GTUBE RESIDUALS 5-10CC. IN HIGH WYNNE'S POSITION FOR ASPIRATION PRECAUTIONS. BED IN LOWEST POSITION WITH BEDSIDE RAILS X3 RAISED. BED ALARM ON ZONE 1. WILL CONTINUE TO MONITOR.
--- NOTE | 2019-04-20 11:33 | Hematology/Onc Progress Note ---
Assessment/Plan Assessment/Plan Assessment and Recs: # ACUTE DEEP VEIN THROMBOSIS BILATERAL, new onset, from 04/02/19 s/p IVC filter on 05/06/[address] Arroyo --> reviewed images with radiology, goes from common to proximal common femoral v ein --> V/Q scan --> shows low prob pe --> given low h/h and low plts, recommend ivc filter placement, consent has been signed --> cleared with other consultants, zen RN --> s/p IVC filter by Dr Arroyo 04/06 --> hold off on anticoagulation until h/h other counts stabilize # Bladder cancer requires resection v chemo/xrt -- presented with multi masses CT shows Scattered eccentric mural thickening/masses in the urinary bladder wall , correlating with findings on recent ultrasound. No significant perivesical stranding. Recommend further evaluation with cystoscopy. --> urology consulted, appreciate input --> Uro note from prior admission: Tolerated bladder tumor resection well. Unfortunately greater part of the bladder is involved and essentially replaced all normal bladder with tumor. I can not resect all the tumors. --> may consider chemo/radiation as outpatient --> path does confirm malignancy --> CBI as needed per uro # Pancytopenia - potential causes multifactorial, evaluate liver and viral etiologies to begin, also could be related to underlying medications patient has received. --> Hep panel and HIV --> NEGATIVE --> US abd showed bladder masses--> ct reviewed as well --> Peripheral smear ordered to evaluate for blasts /schistocytes --> none noted --> abx and other meds have been reviewed --> ok for ppx if plt >50k w/ either heparin or lovenox --> trend plt >92-->104-->86-->73-->117k-->133k --> wbc trend 3.7-->4.1-->4.7 # Anemia of iron deficiency likely due to hematuria --> iv iron x 5 days low ferritin, completed from prior admission --> likely due to hematuria --> have started on ivf and consider uro prn cysto --> hgb goal >7 --> cont po folic acid --> hgb trend: 7.4-->8.4->8 --> as per gi at some point may need egd/colo # Acute renal injury --> cr >1.4-->1.4-->1.7-->1.5-->3.7->1.8-->2 --> per renal recs --> volume expansion # HTN --> cards is following, appreciate recs # C. diff colitis --> on po vanc/flagyl --> per id # Hematuria --> improved # UTI (urinary tract infection) --> per id on abx, cefe/vanc # Scrotal lesions --> per surg eval --> as per wound care # Dehydration # Dvt ppx heparin sq and ivf filter The timing of this note does not necessarily reflect the time of the patient was seen. GREATLY APPRECIATE CONSULTATION. Subjective Constitutional: Denies: no symptoms, chills, fever, malaise, weakness, other HEENT: Denies: no symptoms, eye pain, blurred vision, tearing, double vision, ear pain, ear discharge, nose pain, nose congestion, throat pain, throat swelling, mouth pain, mouth swelling, other Cardiovascular: Denies: no symptoms, chest pain, edema, irregular heart rate, lightheadedness, palpitations, syncope, other Respiratory: Denies: no symptoms, cough, shortness of breath, SOB with excertion, SOB at rest, sputum, wheezing, other Gastrointestinal/Abdominal: Denies: no symptoms, abdomen distended, abdominal pain, black stools, tarry stools, blood in stool, constipated, diarrhea, difficulty swallowing, nausea, poor appetite, poor fluid intake, rectal bleeding , vomiting, other Genitourinary: Denies: no symptoms, burning, discharge, frequency, flank pain, hematuria, incontinence, pain, urgency, other Neurologic/Psychiatric: Denies: no symptoms, anxiety, depressed, emotional problems, headache, numbness, paresthesia, pre-existing deficit, seizure, tingling, tremors, weakness, other Endocrine: Denies: no symptoms, excessive sweating, flushing, intolerance to cold, intolerance to heat, increased hunger, increased thirst, increased urine, unexplained weight gain, unexplained weight loss, other Allergies: Coded Allergies: No Known Allergies (Unverified , 12/20/18) Subjective 04/03: s/p 1 bag iv iron, hgb 7.4, repeat cbc tomorrow, consent for ivc filter has been signed 04/04: is pending clearance of blood cultures, have dw id, potentially thurs for ivcf placement 04/05: no events, still pending ivc filter, have dw rn and id 04/06: no events, no bleeding, pending filter, as per id clearance 04/08: tolerated ivc filter well on 04/06, no events, no bleeding reported 04/09: no events, remains confused is on 2l nc, zen rn 04/10: no events, with lesion noted on penile shaft, no bleeding noted 04/11: no events, tolerated only half of vanc, plt 101, ok to give heparin sq 04/12: on ensure, no bleeding, labs noted, wbc lower, no major changes 04/13: remains confused, labs noted from yesterday, on abx 04/14: no major changes, therahoney dressing changes, no bleeding, labs reviewed 04/15: awake and alert, no acute events, on room air, cbc ordered 12.2: no f/c, no major changes, labs reviewed, ++rt and +richardson 04/17: potential for peg, procedure, no bleeding, labs reviewed 04/18: no events, no bleeding, labs noted 04/19: labs today pending, sleepy, no events 04/20: tfs have been changed to nepro, no bleeding, hgb 8 Objective Objective Current Medications Medications (Trade) Dose Ordered Sig/Sallie Route PRN Reason Start Time Stop Time Status Last Admin Dose Admin Acetaminophen (Tylenol) 650 mg Q4H PRN ORAL fever 04/06/19 14:00 05/01/19 13:59 Acetaminophen (Tylenol) 650 mg Q4H PRN ORAL Mild Pain/Temp > 100.5 04/13/19 16:15 05/13/19 16:14 04/17/19 22:46 Allopurinol (Allopurinol) 300 mg DAILY ORAL 04/07/19 09:00 05/03/19 09:59 04/20/19 09:08 Carvedilol (Coreg) 12.5 mg EVERY 12 HOURS ORAL 04/06/19 21:00 05/01/19 08:59 04/19/19 21:23 Chlorhexidine Gluconate (Abril-Hex 2%) 1 applic DAILY@1999 TOPIC 12/2/19 20:00 05/16/19 19:59 04/19/19 21:23 Dextrose (Dextrose 50%) 25 ml Q30M PRN IV Hypoglycemia 04/06/19 14:00 05/01/19 10:29 Dextrose (Dextrose 50%) 50 ml Q30M PRN IV Hypoglycemia 04/06/19 14:00 05/01/19 10:29 Fidaxomicin (Dificid) 200 mg EVERY 12 HOURS ORAL 04/16/19 21:00 04/23/19 20:59 04/20/19 09:09 Heparin Sodium (Porcine) (Heparin 5000 units/ml) 5,000 units EVERY 12 HOURS SUBQ 04/06/19 21:00 05/01/19 08:59 04/20/19 09:10 Hydralazine HCl (Apresoline) 50 mg Q8HR ORAL 04/06/19 14:00 05/01/19 13:59 04/20/19 06:19 Insulin Aspart (NovoLOG) BEFORE MEALS AND HS SUBQ 04/06/19 16:30 05/01/19 11:29 04/20/19 06:18 Lansoprazole (Prevacid) 30 mg DAILY GT 04/17/19 09:00 05/17/19 08:59 04/20/19 09:08 Memantine (Namenda) 5 mg BID ORAL 04/11/19 18:00 05/11/19 17:59 04/20/19 09:08 Metoclopramide HCl (Reglan) 5 mg Q8H IVP 04/20/19 07:30 04/20/19 23:31 04/20/19 09:07 Minoxidil (Loniten) 2.5 mg Q4H PRN ORAL bp over 165 syst 04/06/19 14:00 05/01/19 13:59 Ondansetron HCl (Zofran) 4 mg Q6H PRN IVP Nausea & Vomiting 04/06/19 14:00 05/01/19 07:59 04/13/19 20:19 Quetiapine Fumarate (SEROqueL) 50 mg TWICE A DAY ORAL 04/06/19 18:00 05/03/19 17:59 04/20/19 09:08 Risperidone (RisperDAL) 1 mg Q12HR ORAL 04/12/19 15:00 05/12/19 14:59 04/20/19 09:08 Sodium Polystyrene Sulfonate (Kayexalate) 30 gm ONCE ORAL 04/20/19 21:00 04/20/19 22:00 Tamsulosin HCl (Flomax) 0.4 mg BID ORAL 04/06/19 18:00 05/01/19 12:59 04/20/19 09:08 Last 24 Hour Vital Signs Date Time Temp Pulse Resp B/P (MAP) Pulse Ox O2 Delivery O2 Flow Rate FiO2 04/20/19 09:00 69 113/66 04/20/19 09:00 Room Air 04/20/19 08:00 98.8 69 17 113/66 (82) 96 04/20/19 06:19 159/68 04/20/19 04:00 97.9 72 16 159/68 (98) 98 04/19/19 22:16 146/64 04/19/19 21:23 70 152/55 04/19/19 21:00 Room Air 04/19/19 20:00 99.0 70 16 152/55 (87) 98 04/19/19 16:00 97.7 70 18 120/74 (89) 98 04/19/19 13:31 92/73 04/19/19 12:00 97.0 76 18 92/73 (79) 97 04/19/19 09:00 Room Air 04/19/19 08:52 69 106/53 04/19/19 08:00 97.5 69 20 106/53 (70) 98 04/19/19 04:00 98.7 70 18 129/55 (79) 100 04/19/19 00:00 99.3 64 16 100/48 (65) 95 04/18/19 21:47 117/56 04/18/19 21:44 68 117/56 04/18/19 21:00 Room Air 04/18/19 20:00 98.4 80 20 132/88 (103) 96 04/18/19 16:00 98.9 71 17 115/55 (75) 98 04/18/19 12:00 99.7 71 16 101/46 (64) 97 Intake and Output 04/19/19 04/20/19 19:00 07:00 Intake Total 1080 ml 700 ml Output Total 700 ml 400 ml Balance 380 ml 300 ml Free Water 330 ml 100 ml IV Total 150 ml Tube Feeding 600 ml 600 ml Output Urine Total 500 ml 400 ml Stool Total 200 ml Labs Test 04/18/19 08:55 04/19/19 05:40 04/20/19 06:10 White Blood Count 5.6 K/UL (4.8-10.8) 6.0 K/UL (4.8-10.8) 6.2 K/UL (4.8-10.8) Red Blood Count 2.91 M/UL (4.70-6.10) 3.16 M/UL (4.70-6.10) 2.79 M/UL (4.70-6.10) Hemoglobin 8.2 G/DL (14.2-18.0) 9.0 G/DL (14.2-18.0) 8.0 G/DL (14.2-18.0) Hematocrit 26.4 % (42.0-52.0) 29.4 % (42.0-52.0) 25.6 % (42.0-52.0) Mean Corpuscular Volume 91 FL (80-99) 93 FL (80-99) 92 FL (80-99) Mean Corpuscular Hemoglobin 28.1 PG (27.0-31.0) 28.6 PG (27.0-31.0) 28.8 PG (27.0-31.0) Mean Corpuscular Hemoglobin Concent 30.9 G/DL (32.0-36.0) 30.8 G/DL (32.0-36.0) 31.4 G/DL (32.0-36.0) Red Cell Distribution Width 18.2 % (11.6-14.8) 18.6 % (11.6-14.8) 18.3 % (11.6-14.8) Platelet Count 131 K/UL (150-450) 131 K/UL (150-450) 128 K/UL (150-450) Mean Platelet Volume 7.0 FL (6.5-10.1) 7.1 FL (6.5-10.1) 6.9 FL (6.5-10.1) Neutrophils (%) (Auto) 72.4 % (45.0-75.0) 70.4 % (45.0-75.0) 73.5 % (45.0-75.0) Lymphocytes (%) (Auto) 13.6 % (20.0-45.0) 16.8 % (20.0-45.0) 12.2 % (20.0-45.0) Monocytes (%) (Auto) 13.2 % (1.0-10.0) 11.2 % (1.0-10.0) 12.2 % (1.0-10.0) Eosinophils (%) (Auto) 0.6 % (0.0-3.0) 1.0 % (0.0-3.0) 1.4 % (0.0-3.0) Basophils (%) (Auto) 0.2 % (0.0-2.0) 0.6 % (0.0-2.0) 0.8 % (0.0-2.0) Sodium Level 135 MMOL/L (136-145) 132 MMOL/L (136-145) 133 MMOL/L (136-145) Potassium Level 5.0 MMOL/L (3.5-5.1) 5.8 MMOL/L (3.5-5.1) 6.0 MMOL/L (3.5-5.1) Chloride Level 107 MMOL/L (98-107) 106 MMOL/L (98-107) 107 MMOL/L (98-107) Carbon Dioxide Level 21 MMOL/L (21-32) 20 MMOL/L (21-32) 21 MMOL/L (21-32) Anion Gap 7 mmol/L (5-15) 6 mmol/L (5-15) 5 mmol/L (5-15) Blood Urea Nitrogen 19 mg/dL (7-18) 25 mg/dL (7-18) 31 mg/dL (7-18) Creatinine 2.1 MG/DL (0.55-1.30) 2.2 MG/DL (0.55-1.30) 2.0 MG/DL (0.55-1.30) Estimat Glomerular Filtration Rate mL/min (>60) mL/min (>60) mL/min (>60) Glucose Level 176 MG/DL (74-106) 180 MG/DL (74-106) 203 MG/DL (74-106) Calcium Level 7.3 MG/DL (8.5-10.1) 7.6 MG/DL (8.5-10.1) 7.4 MG/DL (8.5-10.1) Uric Acid 6.4 MG/DL (2.6-7.2) Phosphorus Level 2.6 MG/DL (2.5-4.9) Magnesium Level 1.9 MG/DL (1.8-2.4) Total Bilirubin 0.2 MG/DL (0.2-1.0) Aspartate Amino Transf (AST/SGOT) 16 U/L (15-37) Alanine Aminotransferase (ALT/SGPT) 8 U/L (12-78) Alkaline Phosphatase 97 U/L (46-116) C-Reactive Protein, Quantitative 4.9 mg/dL (0.00-0.90) Pro-B-Type Natriuretic Peptide 2475 pg/mL (0-125) Total Protein 5.3 G/DL (6.4-8.2) Albumin 1.4 G/DL (3.4-5.0) Globulin 3.9 g/dL Albumin/Globulin Ratio 0.4 (1.0-2.7) Micro Microbiology Date/Time Source Procedure Growth Status 04/19/19 13:30 Stool Clostridium difficile Toxin Assay - Final Complete Height (Feet): 5 Height (Inches): 5.00 Weight (Pounds): 174 Objective Physical Exam Vital Signs: have been reviewed General Appearance: non-toxic, obese, Chronically Ill Respiratory: chest non-tender, lungs clear, mirian BSs, no rhonchi Cardiovascular: normal inspection, regular rate, rhythm, GI: normal inspection, soft Genitourinary: RICHARDSON+, RT++ Musculoskeletal: normal inspection Neurologic: normal inspection, alert Marcelo Mcallister MD Apr 20, 2019 11:33
[2019-04-20 12:00] VITALS: BP 118/67
--- NOTE | 2019-04-20 12:29 | Infectious Diseases Prog Note ---
Assessment/Plan Assessment/Plan 83yo gentleman with PMH below presents from [facility] with confusion, wheezing and desaturation between 83-90%. Pt is oriented to self. Does not know where he is or why he is in the hospital. He initially says yes to abdominal pain, suprapubic pain, leg pain, arm pain but then denied it on second question. Denies fever, chills, cough, sob, diarrhea, dysuria. Unclear baseline. Pt recently had blood transfusion at [facility] 03/06. Pt was recently diagnosed with bladder cancer 12/2018 Afebrile On RA No leukocytosis No lactic acidosis Hypoxia at [facility], SP Possible PNA? flu swab negative CXR: Mild diffuse airspace opacities in both lungs. Lungs are underinflated.Lung findings are likely due to underinflation rather than pulmonary edema or atelectasis. Possible UTI? UA WBC TNTC, also moderate epithelial cells UCx: 50-60K amp sensitive E faecalis E faecalis bacteremia likely / UTI 04/01 BCx: E faecalis 04/02 BCx: neg TTE without vegetation C diff + 04/04- still having diarrhea Acute DVT pending IVC filter RIGHT LEG: Venous imaging reveals acute thrombus in the common to superficial femoral veins. LEFT LEG: Venous imaging reveals acute thrombus in the common to superficial femoral veins. SP IVC filter 04/06 Hypokalemia MRSA screen negative ANGELA on CKD CAD Bladder cancer HTN DM CVA Dyslipidemia CKD Anemia BPH Plan: Continue PO Dificid 200mg bid #5/-14 given continued diarrhea -04/16 SP PO Vancomycin #13 -04/15 SP IV Vancomycin #14 -04/13 SP Flagyl #4 -04/09 SP Cefepime #8 aspiration precaution, elevate HOB monitor temp and CBC needs 48hrs diarrhea free to discontinue isolation Thank you for this consult. [facility] will continue to follow the patient with you. Subjective Allergies: Coded Allergies: No Known Allergies (Unverified , 12/20/18) Subjective afebrile no leukocytosis Objective Vital Signs Last 24 Hour Vital Signs Date Time Temp Pulse Resp B/P (MAP) Pulse Ox O2 Delivery O2 Flow Rate FiO2 04/20/19 09:00 69 113/66 04/20/19 09:00 Room Air 04/20/19 08:00 98.8 69 17 113/66 (82) 96 04/20/19 06:19 159/68 12/6/19 04:00 97.9 72 16 159/68 (98) 98 04/19/19 22:16 146/64 04/19/19 21:23 70 152/55 04/19/19 21:00 Room Air 04/19/19 20:00 99.0 70 16 152/55 (87) 98 04/19/19 16:00 97.7 70 18 120/74 (89) 98 04/19/19 13:31 92/73 Height (Feet): 5 Height (Inches): 5.00 Weight (Pounds): 174 Objective Constitutional: Denies: no symptoms, chills, fever, malaise, weakness, other HEENT: Denies: no symptoms, eye pain, blurred vision, tearing, double vision, ear pain, ear discharge, nose pain, nose congestion, throat pain, throat swelling, mouth pain, mouth swelling, other Cardiovascular: Denies: no symptoms, chest pain, edema, irregular heart rate, lightheadedness, palpitations, syncope, other Respiratory: Denies: no symptoms, cough, shortness of breath, SOB with excertion, SOB at rest, sputum, wheezing, other Neurologic/Psychiatric: Denies: no symptoms, anxiety, depressed, emotional problems, headache, numbness, paresthesia, pre-existing deficit, seizure, tingling, tremors, weakness, other Endocrine: Denies: no symptoms, excessive sweating, flushing, intolerance to cold, intolerance to heat, increased hunger, increased thirst, increased urine, unexplained weight gain, unexplained weight loss, other Microbiology Date/Time Source Procedure Growth Status 04/19/19 13:30 Stool Clostridium difficile Toxin Assay - Final Complete Laboratory Tests Test 04/20/19 06:10 White Blood Count 6.2 K/UL (4.8-10.8) Red Blood Count 2.79 M/UL (4.70-6.10) L Hemoglobin 8.0 G/DL (14.2-18.0) L Hematocrit 25.6 % (42.0-52.0) L Mean Corpuscular Volume 92 FL (80-99) Mean Corpuscular Hemoglobin 28.8 PG (27.0-31.0) Mean Corpuscular Hemoglobin Concent 31.4 G/DL (32.0-36.0) L Red Cell Distribution Width 18.3 % (11.6-14.8) H Platelet Count 128 K/UL (150-450) L Mean Platelet Volume 6.9 FL (6.5-10.1) Neutrophils (%) (Auto) 73.5 % (45.0-75.0) Lymphocytes (%) (Auto) 12.2 % (20.0-45.0) L Monocytes (%) (Auto) 12.2 % (1.0-10.0) H Eosinophils (%) (Auto) 1.4 % (0.0-3.0) Basophils (%) (Auto) 0.8 % (0.0-2.0) Sodium Level 133 MMOL/L (136-145) L Potassium Level 6.0 MMOL/L (3.5-5.1) *H Chloride Level 107 MMOL/L (98-107) Carbon Dioxide Level 21 MMOL/L (21-32) Anion Gap 5 mmol/L (5-15) Blood Urea Nitrogen 31 mg/dL (7-18) H Creatinine 2.0 MG/DL (0.55-1.30) H Estimat Glomerular Filtration Rate mL/min (>60) Glucose Level 203 MG/DL (74-106) H Uric Acid 6.4 MG/DL (2.6-7.2) Calcium Level 7.4 MG/DL (8.5-10.1) L Phosphorus Level 2.6 MG/DL (2.5-4.9) Magnesium Level 1.9 MG/DL (1.8-2.4) Total Bilirubin 0.2 MG/DL (0.2-1.0) Aspartate Amino Transf (AST/SGOT) 16 U/L (15-37) Alanine Aminotransferase (ALT/SGPT) 8 U/L (12-78) L Alkaline Phosphatase 97 U/L (46-116) C-Reactive Protein, Quantitative 4.9 mg/dL (0.00-0.90) H Pro-B-Type Natriuretic Peptide 2475 pg/mL (0-125) H Total Protein 5.3 G/DL (6.4-8.2) L Albumin 1.4 G/DL (3.4-5.0) L Globulin 3.9 g/dL Albumin/Globulin Ratio 0.4 (1.0-2.7) L Current Medications Medications (Trade) Dose Ordered Sig/Sallie Route PRN Reason Start Time Stop Time Status Last Admin Dose Admin Acetaminophen (Tylenol) 650 mg Q4H PRN ORAL fever 04/06/19 14:00 05/01/19 13:59 Acetaminophen (Tylenol) 650 mg Q4H PRN ORAL Mild Pain/Temp > 100.5 04/13/19 16:15 05/13/19 16:14 04/17/19 22:46 Allopurinol (Allopurinol) 300 mg DAILY ORAL 04/07/19 09:00 05/03/19 09:59 04/20/19 09:08 Carvedilol (Coreg) 12.5 mg EVERY 12 HOURS ORAL 04/06/19 21:00 05/01/19 08:59 04/19/19 21:23 Chlorhexidine Gluconate (Abril-Hex 2%) 1 applic DAILY@2000 TOPIC 04/16/19 20:00 05/16/19 19:59 04/19/19 21:23 Dextrose (Dextrose 50%) 25 ml Q30M PRN IV Hypoglycemia 04/06/19 14:00 05/01/19 10:29 Dextrose (Dextrose 50%) 50 ml Q30M PRN IV Hypoglycemia 04/06/19 14:00 05/01/19 10:29 Fidaxomicin (Dificid) 200 mg EVERY 12 HOURS ORAL 04/16/19 21:00 04/23/19 20:59 04/20/19 09:09 Heparin Sodium (Porcine) (Heparin 5000 units/ml) 5,000 units EVERY 12 HOURS SUBQ 04/06/19 21:00 05/01/19 08:59 04/20/19 09:10 Hydralazine HCl (Apresoline) 50 mg Q8HR ORAL 04/06/19 14:00 05/01/19 13:59 04/20/19 06:19 Insulin Aspart (NovoLOG) BEFORE MEALS AND HS SUBQ 04/06/19 16:30 05/01/19 11:29 04/20/19 12:18 Lansoprazole (Prevacid) 30 mg DAILY GT 04/17/19 09:00 05/17/19 08:59 04/20/19 09:08 Memantine (Namenda) 5 mg BID ORAL 04/11/19 18:00 05/11/19 17:59 04/20/19 09:08 Metoclopramide HCl (Reglan) 5 mg Q8H IVP 04/20/19 07:30 04/20/19 23:31 04/20/19 09:07 Minoxidil (Loniten) 2.5 mg Q4H PRN ORAL bp over 165 syst 04/06/19 14:00 05/01/19 13:59 Ondansetron HCl (Zofran) 4 mg Q6H PRN IVP Nausea & Vomiting 04/06/19 14:00 05/01/19 07:59 04/13/19 20:19 Quetiapine Fumarate (SEROqueL) 50 mg TWICE A DAY ORAL 04/06/19 18:00 05/03/19 17:59 04/20/19 09:08 Risperidone (RisperDAL) 1 mg Q12HR ORAL 04/12/19 15:00 05/12/19 14:59 04/20/19 09:08 Sodium Polystyrene Sulfonate (Kayexalate) 30 gm ONCE ORAL 04/20/19 21:00 04/20/19 22:00 Tamsulosin HCl (Flomax) 0.4 mg BID ORAL 04/06/19 18:00 05/01/19 12:59 04/20/19 09:08 Jyoti Piedra M.D. Apr 20, 2019 12:29
--- NOTE | 2019-04-20 14:08 | Pulmonology Progress Note ---
Assessment/Plan Problems: (1) C. difficile colitis (2) Acute respiratory failure with hypoxemia (3) Acute deep vein thrombosis (DVT) of both femoral veins (4) Thrombocytopenia (5) Invasive carcinoma of urinary bladder (6) CAD (coronary artery disease) (7) Anemia (8) Diabetes (9) HTN (hypertension) (10) Bladder cancer Assessment/Plan K is elevated now still has diarrhea tolerating Gtube venous studies of legs showed acute DVT bilaterally IVC filter done respiratory treatment check electrolytes titrate fiio2 to sat of 92% dvt prophylaxis. Subjective ROS Limited/Unobtainable: No Constitutional: Reports: no symptoms HEENT: Repors: no symptoms Allergies: Coded Allergies: No Known Allergies (Unverified , 12/20/18) Objective Last 24 Hour Vital Signs Date Time Temp Pulse Resp B/P (MAP) Pulse Ox O2 Delivery O2 Flow Rate FiO2 04/20/19 13:44 118/67 04/20/19 12:00 97.9 72 18 118/67 (84) 98 04/20/19 09:00 69 113/66 04/20/19 09:00 Room Air 04/20/19 08:00 98.8 69 17 113/66 (82) 96 04/20/19 06:19 159/68 04/20/19 04:00 97.9 72 16 159/68 (98) 98 04/19/19 22:16 146/64 04/19/19 21:23 70 152/55 04/19/19 21:00 Room Air 04/19/19 20:00 99.0 70 16 152/55 (87) 98 04/19/19 16:00 97.7 70 18 120/74 (89) 98 Intake and Output 04/19/19 04/20/19 19:00 07:00 Intake Total 1080 ml 700 ml Output Total 700 ml 400 ml Balance 380 ml 300 ml Free Water 330 ml 100 ml IV Total 150 ml Tube Feeding 600 ml 600 ml Output Urine Total 500 ml 400 ml Stool Total 200 ml Objective HEENT: normocephalic, atraumatic Respiratory/Chest: chest wall non-tender, normal breath sounds Cardiovascular: normal rate, regular rhythm Abdomen: normal bowel sounds, soft, non tender Genitourinary: normal external genitalia Extremities: no cyanosis Skin: no rash, no lesions Microbiology Date/Time Source Procedure Growth Status 04/19/19 13:30 Stool Clostridium difficile Toxin Assay - Final Complete Laboratory Tests 04/20/19 06:10: White Blood Count 6.2, Red Blood Count 2.79L, Hemoglobin 8.0L, Hematocrit 25.6L , Mean Corpuscular Volume 92, Mean Corpuscular Hemoglobin 28.8, Mean Corpuscular Hemoglobin Concent 31.4L, Red Cell Distribution Width 18.3H, Platelet Count 128L, Mean Platelet Volume 6.9, Neutrophils (%) (Auto) 73.5, Lymphocytes (%) (Auto) 12.2L, Monocytes (%) (Auto) 12.2H, Eosinophils (%) (Auto ) 1.4, Basophils (%) (Auto) 0.8, Sodium Level 133L, Potassium Level 6.0*H, Chloride Level 107, Carbon Dioxide Level 21, Anion Gap 5, Blood Urea Nitrogen 31H, Creatinine 2.0H, Estimat Glomerular Filtration Rate , Glucose Level 203H, Uric Acid 6.4, Calcium Level 7.4L, Phosphorus Level 2.6, Magnesium Level 1.9, Total Bilirubin 0.2, Aspartate Amino Transf (AST/SGOT) 16, Alanine Aminotransferase (ALT/SGPT) 8L, Alkaline Phosphatase 97, C-Reactive Protein, Quantitative 4.9H, Pro-B-Type Natriuretic Peptide 2475H, Total Protein 5.3L, Albumin 1.4L, Globulin 3.9, Albumin/Globulin Ratio 0.4L Current Medications Medications (Trade) Dose Ordered Sig/Sallie Route PRN Reason Start Time Stop Time Status Last Admin Dose Admin Acetaminophen (Tylenol) 650 mg Q4H PRN ORAL fever 04/06/19 14:00 05/01/19 13:59 Acetaminophen (Tylenol) 650 mg Q4H PRN ORAL Mild Pain/Temp > 100.5 04/13/19 16:15 05/13/19 16:14 04/17/19 22:46 Allopurinol (Allopurinol) 300 mg DAILY ORAL 04/07/19 09:00 05/03/19 09:59 04/20/19 09:08 Carvedilol (Coreg) 12.5 mg EVERY 12 HOURS ORAL 04/06/19 21:00 05/01/19 08:59 04/19/19 21:23 Chlorhexidine Gluconate (Abril-Hex 2%) 1 applic DAILY@2000 TOPIC 04/16/19 20:00 05/16/19 19:59 04/19/19 21:23 Dextrose (Dextrose 50%) 25 ml Q30M PRN IV Hypoglycemia 04/06/19 14:00 05/01/19 10:29 Dextrose (Dextrose 50%) 50 ml Q30M PRN IV Hypoglycemia 04/06/19 14:00 05/01/19 10:29 Fidaxomicin (Dificid) 200 mg EVERY 12 HOURS ORAL 04/16/19 21:00 04/23/19 20:59 04/20/19 09:09 Heparin Sodium (Porcine) (Heparin 5000 units/ml) 5,000 units EVERY 12 HOURS SUBQ 04/06/19 21:00 05/01/19 08:59 04/20/19 09:10 Hydralazine HCl (Apresoline) 50 mg Q8HR ORAL 04/06/19 14:00 05/01/19 13:59 04/20/19 06:19 Insulin Aspart (NovoLOG) BEFORE MEALS AND HS SUBQ 04/06/19 16:30 05/01/19 11:29 04/20/19 12:18 Lansoprazole (Prevacid) 30 mg DAILY GT 04/17/19 09:00 05/17/19 08:59 04/20/19 09:08 Memantine (Namenda) 5 mg BID ORAL 04/11/19 18:00 05/11/19 17:59 04/20/19 09:08 Metoclopramide HCl (Reglan) 5 mg Q8H IVP 04/20/19 07:30 04/20/19 23:31 04/20/19 09:07 Minoxidil (Loniten) 2.5 mg Q4H PRN ORAL bp over 165 syst 04/06/19 14:00 05/01/19 13:59 Ondansetron HCl (Zofran) 4 mg Q6H PRN IVP Nausea & Vomiting 04/06/19 14:00 05/01/19 07:59 04/13/19 20:19 Quetiapine Fumarate (SEROqueL) 50 mg TWICE A DAY ORAL 04/06/19 18:00 05/03/19 17:59 04/20/19 09:08 Risperidone (RisperDAL) 1 mg Q12HR ORAL 04/12/19 15:00 05/12/19 14:59 04/20/19 09:08 Sodium Polystyrene Sulfonate (Kayexalate) 30 gm ONCE ORAL 04/20/19 21:00 04/20/19 22:00 Tamsulosin HCl (Flomax) 0.4 mg BID ORAL 04/06/19 18:00 05/01/19 12:59 04/20/19 09:08 Adam Moyer MD Apr 20, 2019 14:08
--- NOTE | 2019-04-20 14:56 | NUR ---
NURSE NOTES: C DIFF RESULT NEGATIVE TODAY. RN LEFT MESSAGE FOR DR JULIO REGARDING CLEARANCE FOR DISCHARGE. PT CONTINUES TO HAVE LIQUID STOOL.
--- NOTE | 2019-04-20 15:40 | NUR ---
ELASTIC ATTACHER ZIGZAG NOTES PT ACCEPTED TO [facility] ROOM 405 BED A. PT IS ISOLATION STATUS AT FACILITY. NURSE TO CALL [facility] AND TRANSFER THE PT. ANY ISSUES FROM THE FACILITY PLEASE CALL [facility] @ [phone].
[2019-04-20 15:53] VITALS: BP 122/57
[2019-04-20 16:00] VITALS: BP 118/56
--- NOTE | 2019-04-20 17:00 | NUR ---
NURSE NOTES: RN DID NOT RECEIVE A CALL BACK FROM DR JULIO. CRN MADE AWARE. ALL WOUND DRESSINGS CHANGED ORDERED. WILL CONTINUE TO MONITOR.
--- NOTE | 2019-04-20 19:33 | NUR ---
HAND-OFF: Report given to Romi ALARCON RN
--- NOTE | 2019-04-20 19:57 | NUR ---
NURSE NOTES: Received patient asleep tolerating his g-tube feeding well.
[2019-04-20] MEDS: Dyna-Hex 2% Top Sol 2oz TOPIC SCH (20:00)
[2019-04-20 20:12] VITALS: BP 120/66
[2019-04-20] MEDS ORDERED: Sodium Polystyrene Sulfonate 15gm Powder ORAL SCH ×2 (21:00)
--- NOTE | 2019-04-20 22:29 | Surgery Progress Note ---
Surgery Progress Note Subjective Symptoms: improved Objective Last 24 Hour Vital Signs Date Time Temp Pulse Resp B/P (MAP) Pulse Ox O2 Delivery O2 Flow Rate FiO2 04/20/19 21:30 120/66 04/20/19 21:27 64 120/66 04/20/19 20:12 99.0 64 21 120/66 (84) 95 04/20/19 16:00 98.0 59 18 118/56 (76) 96 04/20/19 13:44 118/67 04/20/19 12:00 97.9 72 18 118/67 (84) 98 04/20/19 09:00 69 113/66 04/20/19 09:00 Room Air 04/20/19 08:00 98.8 69 17 113/66 (82) 96 04/20/19 06:19 159/68 04/20/19 04:00 97.9 72 16 159/68 (98) 98 I&O Intake and Output 04/19/19 04/20/19 18:59 06:59 Intake Total 1080 ml 700 ml Output Total 700 ml 400 ml Balance 380 ml 300 ml Free Water 330 ml 100 ml IV Total 150 ml Tube Feeding 600 ml 600 ml Output Urine Total 500 ml 400 ml Stool Total 200 ml Dressing: saturated Wound: other Drains: other Cardiovascular: RSR Respiratory: clear Abdomen: soft, flat, non-tender, present bowel sounds Extremities: edema, no cyanosis Laboratory Tests Test 04/20/19 06:10 White Blood Count 6.2 K/UL (4.8-10.8) Red Blood Count 2.79 M/UL (4.70-6.10) L Hemoglobin 8.0 G/DL (14.2-18.0) L Hematocrit 25.6 % (42.0-52.0) L Mean Corpuscular Volume 92 FL (80-99) Mean Corpuscular Hemoglobin 28.8 PG (27.0-31.0) Mean Corpuscular Hemoglobin Concent 31.4 G/DL (32.0-36.0) L Red Cell Distribution Width 18.3 % (11.6-14.8) H Platelet Count 128 K/UL (150-450) L Mean Platelet Volume 6.9 FL (6.5-10.1) Neutrophils (%) (Auto) 73.5 % (45.0-75.0) Lymphocytes (%) (Auto) 12.2 % (20.0-45.0) L Monocytes (%) (Auto) 12.2 % (1.0-10.0) H Eosinophils (%) (Auto) 1.4 % (0.0-3.0) Basophils (%) (Auto) 0.8 % (0.0-2.0) Sodium Level 133 MMOL/L (136-145) L Potassium Level 6.0 MMOL/L (3.5-5.1) *H Chloride Level 107 MMOL/L (98-107) Carbon Dioxide Level 21 MMOL/L (21-32) Anion Gap 5 mmol/L (5-15) Blood Urea Nitrogen 31 mg/dL (7-18) H Creatinine 2.0 MG/DL (0.55-1.30) H Estimat Glomerular Filtration Rate mL/min (>60) Glucose Level 203 MG/DL (74-106) H Uric Acid 6.4 MG/DL (2.6-7.2) Calcium Level 7.4 MG/DL (8.5-10.1) L Phosphorus Level 2.6 MG/DL (2.5-4.9) Magnesium Level 1.9 MG/DL (1.8-2.4) Total Bilirubin 0.2 MG/DL (0.2-1.0) Aspartate Amino Transf (AST/SGOT) 16 U/L (15-37) Alanine Aminotransferase (ALT/SGPT) 8 U/L (12-78) L Alkaline Phosphatase 97 U/L (46-116) C-Reactive Protein, Quantitative 4.9 mg/dL (0.00-0.90) H Pro-B-Type Natriuretic Peptide 2475 pg/mL (0-125) H Total Protein 5.3 G/DL (6.4-8.2) L Albumin 1.4 G/DL (3.4-5.0) L Globulin 3.9 g/dL Albumin/Globulin Ratio 0.4 (1.0-2.7) L Plan Problems: (1) Scrotal lesion Assessment & Plan: This is a 83-year-old male with multiple medical morbidities who was identified to have abnormal scrotal lesions on admission. There are 3 lesions on the scrotum clearly identified and likely old small abscesses or carbuncles which have healed slowly. Patient is incontinent With leakage of stool identified around the scrotal sac on the posterior aspect where the lesions are located. No signs of active infection no active drainage nontender skin macerated Recommend washing the scrotum daily with normal saline. Apply skin protectant and moisture absorbent dressing daily and as needed saturation Physical examination was identified to have a draining pustule in the left shaft base of the penis. There is an opening less than a centimeter with drainage of some mild seropurulent fluid and some slough. Wound irrigated cleansed and some non-excisional debridement with gauze was performed. There is significant edema in the area no cellulitis skin otherwise intact. Fair amount of moisture in the area. Will continue with local care We will follow and monitor for healing Pain is still swollen and has a wound on the left base 1 cm opening some slough. Some non-excisional debridement done at bedside. We will continue to monitor wound. vPt presented on admission with multiple pressure injuries. Scattered pressure injuries at base of scrotum resolving . Fordyce epithelial noted . Full thickness pressure injury at base of penile shaft and scrotum with loose fibrinous slough.Wound Bioburden removed with curette by Dr. Pepe.Small amt slough at base noted.Edges adherent to base of wound(L)1cm x (W)2cm. Full thickness sacral pressure injury resolving. Scattered slough at base of wound. Fordyce epithelial borders that are flat ad adherent to base of wound.No odor or exudate noted.Periwound withot erythema or induration.(L)7cm x (W)10cm. Tx.Plan:Cleanse wound base of penis with saline. Apply Therahoney. Apply Cavilon Skin BArrier periwound. Cover with Optifoam drsg. Change daily and prn. Cleanse Sacral wound with Saline. Apply Therahoney. Apply Moisture Barrier arita periwound. Cover with Optifoam Drsg. Change every 3 days and prn. Apply Moisture Barrier Paste to Scrotum with Each incontinence care. Reposition at least every 2hours or as tolerated. Off-load heels with pillow. APM/NOLBERTO Mattress overlay. a (2) Sacral decubitus ulcer, stage III Assessment & Plan: Pt presented on admission with multiple pressure injuries. Full thickness sacral pressure injury. Base of wound is viable with an area that is purple in center. Semi-detached black borders(L)9.5cm x (W)4.9cm x(D) 0.2cm .Non-blanching erythema periwound. Multiple pressure injuries Scrotum. Base of pressure injury R scrotum 75% pink granulation,25% slough. Edges pink,flat and adherent to base of wound.(L)2.2cm x (W)0.9cm.Ful thickness pressure injury center -base of scrotum (L)0.5cm x (W) 0.4cm. Base of wound has 100% slough. Full thickness pressure injury L scrotum ( L)2cm x (W01.1cm. Base of wound has 90% slough ,10% viable. Reabsorbing blood blister R heel heel. Base of wound black (L)2.2cm x (W)2cm with red tinged borders with fluctuance. (L)5.5cm x(W)5cm. Reabsorbing Blood Blister L heel. Base of wound is black ,dry with maroon and fluctuant borders.(L)6.5cm x (W)6cm Abd folds are moist and dark but is intact. Penile wound identified. Now open from edema. Slough noted. Slough wiped and cleaned. Non-excisional debridement performed. Wound stable. No longer draining. Tx.Plan: Cleanse Sacral wound with Saline. Apply Therahoney. Apply Moisture Barrier Paste periwound. Cover with Optifoam drsg Daily and prn. Cleanse wounds on Scrotum with saline. Apply Therhaoney to each wound. Cover with Optifoam drsg. Change Daily and prn. Bacitracin to penile wound. Apply Moisture Barrier to Abd folds and Bilat groin Daily and prn. APM/NOLBERTO Mattress overlay. Reposition at least every 2hours or as tolerated. Off-load heels with pillow. (3) Bladder cancer (4) C. difficile colitis Assessment & Plan: blood cultures negative C diff positive - discussed with ID cont abx labs noted and improved exam stable cont current tx AfshinBebeto Apr 20, 2019 22:29
[2019-04-21 00:01] VITALS: BP 129/69
[2019-04-21 04:40] VITALS: BP 160/56
[2019-04-21] MEDS: HydrALAZINE 50mg tab ORAL SCH ×2 (05:18→15:39)
[2019-04-21] MEDS: NovoLOG Insulin Flexpen SUBQ SCH ×3 (05:19→17:16)
--- NOTE | 2019-04-21 06:03 | NUR ---
NURSE NOTES: Patient IV access came off. Patient refused IV reinsertion.
--- NOTE | 2019-04-21 07:23 | NUR ---
HAND-OFF: Report given to Margoth Swann RN/MATT Amezcua.
--- NOTE | 2019-04-21 07:30 | NUR ---
NURSE NOTES: Received patient in bed,awake, patient opens his eyes spontaneously but does not want to talk. Breathing is even and unlabored. No s/s of pain or discomfort. HOB elevated. GT intact,no residual. Oconnor is intact. Patient refused IV insertion. Will follow up.
--- NOTE | 2019-04-21 07:40 | NUR ---
NURSE NOTES: RN followed up with lab for morning labs, jet man will come up for blood draw.
[2019-04-21 08:00] VITALS: BP 166/69
[2019-04-21 08:52] LABS: BASOPHILS % (AUTO) 0.5 % (0.0-2.0); EOSINOPHILS % (AUTO) 1.3 % (0.0-3.0); HEMATOCRIT 27.6 % (42.0-52.0); HEMOGLOBIN 8.5 G/DL (14.2-18.0); LYMPHOCYTES % (AUTO) 13.6 % (20.0-45.0); MEAN CORPUSCULAR VOLUME 93 FL (80-99); MONOCYTES % (AUTO) 13.1 % (1.0-10.0); NEUTROPHILS % (AUTO) 71.5 % (45.0-75.0); PLATELET COUNT 116 K/UL (150-450); RED BLOOD COUNT 2.96 M/UL (4.70-6.10); WHITE BLOOD COUNT 5.4 K/UL (4.8-10.8)
[2019-04-21 09:13] LABS: ALANINE AMINOTRANSFERASE 9 U/L (12-78); ALBUMIN 1.4 G/DL (3.4-5.0); ALBUMIN/GLOBULIN RATIO 0.4 (1.0-2.7); ALKALINE PHOSPHATASE 99 U/L (46-116); ANION GAP 4 mmol/L (5-15); ASPARTATE AMINO TRANSFERASE 15 U/L (15-37); BILIRUBIN,TOTAL 0.2 MG/DL (0.2-1.0); BLOOD UREA NITROGEN 30 mg/dL (7-18); CALCIUM 7.5 MG/DL (8.5-10.1); CARBON DIOXIDE 25 MMOL/L (21-32); CHLORIDE 107 MMOL/L (98-107); CREATININE 1.9 MG/DL (0.55-1.30); PHOSPHORUS 2.9 MG/DL (2.5-4.9); POTASSIUM 5.1 MMOL/L (3.5-5.1); SODIUM 136 MMOL/L (136-145)
--- NOTE | 2019-04-21 09:30 | Nephrology Progress Note ---
Assessment/Plan Problem List: (1) ARF (acute renal failure) (2) Acute on chronic renal insufficiency (3) Diabetes (4) HTN (hypertension) (5) Bladder cancer (6) Invasive carcinoma of urinary bladder (7) Anemia Assessment Acute renal failure ? Superimposed CKD Bladder Mass / h/o Hematuria HTN DM Anemia, previous transfusions s/p Cystoscopy 12/28 Plan stop k supplement Kayexelate has PEG on GT feeding med-surg favor transfusion Hydrate richardson IV Iron BP management, BP med adjustment Monitor lytes and renal parameters Kidney ESDRAS , no hydro per orders Previous Uro note: Tolerated bladder tumor resection well. Unfortunately greater part of the bladder is involved and essentially replaced all normal bladder with tumor. I can not resect all the tumors. Patient needs a radical cystectomy (removal of bladder) or radiation/chemotherapy at higher level of care. 1. recommend transfer to higher level of care for cystectomy 2. continue richardson, keep irrigation to maintain light pink urine. Multiple mass like lesions within the bladder. Further evaluation with cystoscopy is recommended to evaluate for possible neoplasm. Multiple parapelvic renal cysts Subjective ROS Limited/Unobtainable: No Constitutional: Reports: malaise Objective Objective Last 24 Hour Vital Signs Date Time Temp Pulse Resp B/P (MAP) Pulse Ox O2 Delivery O2 Flow Rate FiO2 04/21/19 08:00 98.9 71 20 166/69 (101) 96 04/21/19 05:18 160/56 04/21/19 04:40 98.8 70 22 160/56 (90) 96 04/21/19 00:01 98.5 69 21 129/69 (89) 95 04/20/19 21:30 120/66 04/20/19 21:27 64 120/66 04/20/19 21:00 Room Air 04/20/19 20:12 99.0 64 21 120/66 (84) 95 04/20/19 16:00 98.0 59 18 118/56 (76) 96 04/20/19 13:44 118/67 04/20/19 12:00 97.9 72 18 118/67 (84) 98 Intake and Output 04/20/19 04/21/19 19:00 07:00 Intake Total 720 ml 740 ml Output Total 300 ml Balance 420 ml 740 ml Free Water 230 ml 260 ml Tube Feeding 490 ml 480 ml Stool Total 300 ml Laboratory Tests 04/21/19 08:10: White Blood Count 5.4, Red Blood Count 2.96L, Hemoglobin 8.5L, Hematocrit 27.6L , Mean Corpuscular Volume 93, Mean Corpuscular Hemoglobin 28.8, Mean Corpuscular Hemoglobin Concent 30.9L, Red Cell Distribution Width 18.0H, Platelet Count 116L, Mean Platelet Volume 7.2, Neutrophils (%) (Auto) 71.5, Lymphocytes (%) (Auto) 13.6L, Monocytes (%) (Auto) 13.1H, Eosinophils (%) (Auto ) 1.3, Basophils (%) (Auto) 0.5, Sodium Level 136, Potassium Level 5.1, Chloride Level 107, Carbon Dioxide Level 25, Anion Gap 4L, Blood Urea Nitrogen 30H, Creatinine 1.9H, Estimat Glomerular Filtration Rate , Glucose Level 212H, Calcium Level 7.5L, Phosphorus Level 2.9, Magnesium Level 1.8, Total Bilirubin 0.2, Aspartate Amino Transf (AST/SGOT) 15, Alanine Aminotransferase (ALT/SGPT) 9L, Alkaline Phosphatase 99, Total Protein 5.3L, Albumin 1.4L, Globulin 3.9, Albumin/Globulin Ratio 0.4L Height (Feet): 5 Height (Inches): 5.00 Weight (Pounds): 174 Cardiovascular: normal rate Respiratory/Chest: lungs clear Abdomen: soft Objective no change Russell Sofia MD Apr 21, 2019 09:30
--- NOTE | 2019-04-21 09:38 | General Progress Note ---
Assessment/Plan Problem List: (1) Invasive carcinoma of urinary bladder ICD Codes: C67.9 - Malignant neoplasm of bladder, unspecified SNOMED: 690343236 (2) Anemia ICD Codes: D64.9 - Anemia, unspecified SNOMED: 307122000 (3) Diabetes ICD Codes: E11.9 - Type 2 diabetes mellitus without complications SNOMED: 23764198 (4) HTN (hypertension) ICD Codes: I10 - Essential (primary) hypertension SNOMED: 45246557 (5) Urinary tract infection ICD Codes: N39.0 - Urinary tract infection, site not specified SNOMED: 18575182 (6) Bladder cancer ICD Codes: C67.9 - Malignant neoplasm of bladder, unspecified SNOMED: 495753481 Status: stable, progressing Assessment/Plan: pt diet eval 02 pulm tx abx uro f/u cbc bmp am advance diet if paco transfuse prn dc plan snf Subjective Allergies: Coded Allergies: No Known Allergies (Unverified , 12/20/18) All Systems: reviewed and negative except above Subjective o2nc sleepy calm Objective Last 24 Hour Vital Signs Date Time Temp Pulse Resp B/P (MAP) Pulse Ox O2 Delivery O2 Flow Rate FiO2 04/21/19 08:00 98.9 71 20 166/69 (101) 96 04/21/19 05:18 160/56 04/21/19 04:40 98.8 70 22 160/56 (90) 96 04/21/19 00:01 98.5 69 21 129/69 (89) 95 04/20/19 21:30 120/66 04/20/19 21:27 64 120/66 04/20/19 21:00 Room Air 04/20/19 20:12 99.0 64 21 120/66 (84) 95 04/20/19 16:00 98.0 59 18 118/56 (76) 96 04/20/19 13:44 118/67 04/20/19 12:00 97.9 72 18 118/67 (84) 98 Intake and Output 04/20/19 04/21/19 19:00 07:00 Intake Total 720 ml 740 ml Output Total 300 ml Balance 420 ml 740 ml Free Water 230 ml 260 ml Tube Feeding 490 ml 480 ml Stool Total 300 ml Laboratory Tests 04/21/19 08:10: White Blood Count 5.4, Red Blood Count 2.96L, Hemoglobin 8.5L, Hematocrit 27.6L , Mean Corpuscular Volume 93, Mean Corpuscular Hemoglobin 28.8, Mean Corpuscular Hemoglobin Concent 30.9L, Red Cell Distribution Width 18.0H, Platelet Count 116L, Mean Platelet Volume 7.2, Neutrophils (%) (Auto) 71.5, Lymphocytes (%) (Auto) 13.6L, Monocytes (%) (Auto) 13.1H, Eosinophils (%) (Auto ) 1.3, Basophils (%) (Auto) 0.5, Sodium Level 136, Potassium Level 5.1, Chloride Level 107, Carbon Dioxide Level 25, Anion Gap 4L, Blood Urea Nitrogen 30H, Creatinine 1.9H, Estimat Glomerular Filtration Rate , Glucose Level 212H, Calcium Level 7.5L, Phosphorus Level 2.9, Magnesium Level 1.8, Total Bilirubin 0.2, Aspartate Amino Transf (AST/SGOT) 15, Alanine Aminotransferase (ALT/SGPT) 9L, Alkaline Phosphatase 99, Total Protein 5.3L, Albumin 1.4L, Globulin 3.9, Albumin/Globulin Ratio 0.4L Height (Feet): 5 Height (Inches): 5.00 Weight (Pounds): 174 General Appearance: lethargic EENT: normal ENT inspection Neck: normal alignment Cardiovascular: normal peripheral pulses, normal rate, regular rhythm Respiratory/Chest: chest wall non-tender, lungs clear, normal breath sounds Abdomen: normal bowel sounds, non tender, soft Extremities: normal inspection Edema: no edema noted Arm (L), no edema noted Arm (R), no edema noted Leg (L), no edema noted Leg (R), no edema noted Pedal (L), no edema noted Pedal (R), no edema noted Generalized Neurologic: motor weakness Skin: normal pigmentation, warm/dry Jamie Gray DO Apr 21, 2019 09:38
[2019-04-21] MEDS: Carvedilol 12.5mg tab ORAL SCH (10:14)
[2019-04-21] MEDS: Memantine 5 MG TAB ORAL SCH ×2 (10:14→17:15)
[2019-04-21] MEDS: Tamsulosin 0.4mg cap ORAL SCH ×2 (10:14→17:15)
[2019-04-21] MEDS: Heparin 5000 units/ml inj SUBQ SCH (10:16)
--- NOTE | 2019-04-21 11:26 | NUR ---
NURSE NOTES: NURSE NOTES: CVE STATED THAT ROOM IS NOT AVAIL YET AND TO PUSH ADMIT TO 1700HRS [facility] AMB SET UP FOR [address] JULIO FOR ABX ORDERS, STILL AWAITING CALLBACK
[2019-04-21 12:00] VITALS: BP 154/62
--- NOTE | 2019-04-21 12:02 | Surgery Progress Note ---
Surgery Progress Note Subjective Additional Comments Patient seen and examined bedside. No acute events. Comfortable. Denies any complaints. Tolerating diet. Pain is still swollen but less. Opening closing. No drainage. Still with some slough that may require debridement later. Objective Last 24 Hour Vital Signs Date Time Temp Pulse Resp B/P (MAP) Pulse Ox O2 Delivery O2 Flow Rate FiO2 04/21/19 10:14 71 166/69 04/21/19 09:00 Room Air 04/21/19 08:00 98.9 71 20 166/69 (101) 96 04/21/19 05:18 160/56 04/21/19 04:40 98.8 70 22 160/56 (90) 96 04/21/19 00:01 98.5 69 21 129/69 (89) 95 04/20/19 21:30 120/66 04/20/19 21:27 64 120/66 04/20/19 21:00 Room Air 04/20/19 20:12 99.0 64 21 120/66 (84) 95 04/20/19 16:00 98.0 59 18 118/56 (76) 96 04/20/19 13:44 118/67 I&O Intake and Output 04/20/19 04/21/19 19:00 07:00 Intake Total 720 ml 740 ml Output Total 300 ml Balance 420 ml 740 ml Free Water 230 ml 260 ml Tube Feeding 490 ml 480 ml Stool Total 300 ml Dressing: saturated Wound: clean Cardiovascular: RSR Respiratory: clear Abdomen: soft, non-tender, present bowel sounds Extremities: edema, no cyanosis, other Laboratory Tests Test 04/21/19 08:10 White Blood Count 5.4 K/UL (4.8-10.8) Red Blood Count 2.96 M/UL (4.70-6.10) L Hemoglobin 8.5 G/DL (14.2-18.0) L Hematocrit 27.6 % (42.0-52.0) L Mean Corpuscular Volume 93 FL (80-99) Mean Corpuscular Hemoglobin 28.8 PG (27.0-31.0) Mean Corpuscular Hemoglobin Concent 30.9 G/DL (32.0-36.0) L Red Cell Distribution Width 18.0 % (11.6-14.8) H Platelet Count 116 K/UL (150-450) L Mean Platelet Volume 7.2 FL (6.5-10.1) Neutrophils (%) (Auto) 71.5 % (45.0-75.0) Lymphocytes (%) (Auto) 13.6 % (20.0-45.0) L Monocytes (%) (Auto) 13.1 % (1.0-10.0) H Eosinophils (%) (Auto) 1.3 % (0.0-3.0) Basophils (%) (Auto) 0.5 % (0.0-2.0) Sodium Level 136 MMOL/L (136-145) Potassium Level 5.1 MMOL/L (3.5-5.1) Chloride Level 107 MMOL/L (98-107) Carbon Dioxide Level 25 MMOL/L (21-32) Anion Gap 4 mmol/L (5-15) L Blood Urea Nitrogen 30 mg/dL (7-18) H Creatinine 1.9 MG/DL (0.55-1.30) H Estimat Glomerular Filtration Rate mL/min (>60) Glucose Level 212 MG/DL (74-106) H Calcium Level 7.5 MG/DL (8.5-10.1) L Phosphorus Level 2.9 MG/DL (2.5-4.9) Magnesium Level 1.8 MG/DL (1.8-2.4) Total Bilirubin 0.2 MG/DL (0.2-1.0) Aspartate Amino Transf (AST/SGOT) 15 U/L (15-37) Alanine Aminotransferase (ALT/SGPT) 9 U/L (12-78) L Alkaline Phosphatase 99 U/L (46-116) Total Protein 5.3 G/DL (6.4-8.2) L Albumin 1.4 G/DL (3.4-5.0) L Globulin 3.9 g/dL Albumin/Globulin Ratio 0.4 (1.0-2.7) L Plan Problems: (1) Scrotal lesion Assessment & Plan: This is a 83-year-old male with multiple medical morbidities who was identified to have abnormal scrotal lesions on admission. There are 3 lesions on the scrotum clearly identified and likely old small abscesses or carbuncles which have healed slowly. Patient is incontinent With leakage of stool identified around the scrotal sac on the posterior aspect where the lesions are located. No signs of active infection no active drainage nontender skin macerated Recommend washing the scrotum daily with normal saline. Apply skin protectant and moisture absorbent dressing daily and as needed saturation Physical examination was identified to have a draining pustule in the left shaft base of the penis. There is an opening less than a centimeter with drainage of some mild seropurulent fluid and some slough. Wound irrigated cleansed and some non-excisional debridement with gauze was performed. There is significant edema in the area no cellulitis skin otherwise intact. Fair amount of moisture in the area. Will continue with local care We will follow and monitor for healing Pain is still swollen and has a wound on the left base 1 cm opening some slough. Some non-excisional debridement done at bedside. We will continue to monitor wound. Pt presented on admission with multiple pressure injuries. Scattered pressure injuries at base of scrotum resolving . Sangrey epithelial noted . Full thickness pressure injury at base of penile shaft and scrotum with loose fibrinous slough.Wound Bioburden removed with curette by Dr. Pepe.Small amt slough at base noted.Edges adherent to base of wound(L)1cm x (W)2cm. Full thickness sacral pressure injury resolving. Scattered slough at base of wound. Sangrey epithelial borders that are flat ad adherent to base of wound.No odor or exudate noted.Periwound without erythema or induration.(L)7cm x (W)10cm. Continue with current treatment plan. We will continue to monitor. May require debridement later. Tx.Plan: Cleanse wound base of penis with saline. Apply Therahoney. Apply Cavilon Skin BArrier periwound. Cover with Optifoam drsg. Change daily and prn. Cleanse Sacral wound with Saline. Apply Therahoney. Apply Moisture Barrier arita periwound. Cover with Optifoam Drsg. Change every 3 days and prn. Apply Moisture Barrier Paste to Scrotum with Each incontinence care. Reposition at least every 2hours or as tolerated. Off-load heels with pillow. APM/NOLBERTO Mattress overlay. Nutritional optimization (2) Sacral decubitus ulcer, stage III Assessment & Plan: Pt presented on admission with multiple pressure injuries. Full thickness sacral pressure injury. Base of wound is viable with an area that is purple in center. Semi-detached black borders(L)9.5cm x (W)4.9cm x(D) 0.2cm .Non-blanching erythema periwound. Multiple pressure injuries Scrotum. Base of pressure injury R scrotum 75% pink granulation,25% slough. Edges pink,flat and adherent to base of wound.(L)2.2cm x (W)0.9cm.Ful thickness pressure injury center -base of scrotum (L)0.5cm x (W) 0.4cm. Base of wound has 100% slough. Full thickness pressure injury L scrotum ( L)2cm x (W01.1cm. Base of wound has 90% slough ,10% viable. Reabsorbing blood blister R heel heel. Base of wound black (L)2.2cm x (W)2cm with red tinged borders with fluctuance. (L)5.5cm x(W)5cm. Reabsorbing Blood Blister L heel. Base of wound is black ,dry with maroon and fluctuant borders.(L)6.5cm x (W)6cm Abd folds are moist and dark but is intact. Penile wound identified. Now open from edema. Slough noted. Slough wiped and cleaned. Non-excisional debridement performed. Wound stable. No longer draining. Tx.Plan: Cleanse Sacral wound with Saline. Apply Therahoney. Apply Moisture Barrier Paste periwound. Cover with Optifoam drsg Daily and prn. Cleanse wounds on Scrotum with saline. Apply Therhaoney to each wound. Cover with Optifoam drsg. Change Daily and prn. Bacitracin to penile wound. Apply Moisture Barrier to Abd folds and Bilat groin Daily and prn. APM/NOLBERTO Mattress overlay. Reposition at least every 2hours or as tolerated. Off-load heels with pillow. (3) Bladder cancer (4) C. difficile colitis Assessment & Plan: blood cultures negative C diff positive - discussed with ID cont abx labs noted and improved exam stable cont current tx AfshinLynnBebeto Apr 21, 2019 12:02
--- NOTE | 2019-04-21 12:36 | Infectious Diseases Prog Note ---
Assessment/Plan Assessment/Plan 83yo gentleman with PMH below presents from half-way with confusion, wheezing and desaturation between 83-90%. Pt is oriented to self. Does not know where he is or why he is in the hospital. He initially says yes to abdominal pain, suprapubic pain, leg pain, arm pain but then denied it on second question. Denies fever, chills, cough, sob, diarrhea, dysuria. Unclear baseline. Pt recently had blood transfusion at [facility] 03/06. Pt was recently diagnosed with bladder cancer 12/2018 Afebrile On RA No leukocytosis No lactic acidosis Hypoxia at half-way, SP Possible PNA? flu swab negative CXR: Mild diffuse airspace opacities in both lungs. Lungs are underinflated.Lung findings are likely due to underinflation rather than pulmonary edema or atelectasis. Possible UTI? UA WBC TNTC, also moderate epithelial cells UCx: 50-60K amp sensitive E faecalis E faecalis bacteremia likely / UTI 04/01 BCx: E faecalis 04/02 BCx: neg TTE without vegetation C diff + 04/04- still having diarrhea Acute DVT pending IVC filter RIGHT LEG: Venous imaging reveals acute thrombus in the common to superficial femoral veins. LEFT LEG: Venous imaging reveals acute thrombus in the common to superficial femoral veins. SP IVC filter 04/06 Hypokalemia MRSA screen negative ANGELA on CKD CAD Bladder cancer HTN DM CVA Dyslipidemia CKD Anemia BPH Plan: Continue PO Dificid 200mg bid #10/23 given continued diarrhea -04/16 SP PO Vancomycin #13 -04/15 SP IV Vancomycin #14 -04/13 SP Flagyl #4 -04/09 SP Cefepime #8 aspiration precaution, elevate HOB monitor temp and CBC needs 48hrs diarrhea free to discontinue isolation Thank you for this consult. [facility] will continue to follow the patient with you. Subjective Allergies: Coded Allergies: No Known Allergies (Unverified , 12/20/18) Subjective afebrile no leukocytosis Objective Vital Signs Last 24 Hour Vital Signs Date Time Temp Pulse Resp B/P (MAP) Pulse Ox O2 Delivery O2 Flow Rate FiO2 04/21/19 10:14 71 166/69 04/21/19 09:00 Room Air 04/21/19 08:00 98.9 71 20 166/69 (101) 96 12/7/19 05:18 160/56 04/21/19 04:40 98.8 70 22 160/56 (90) 96 04/21/19 00:01 98.5 69 21 129/69 (89) 95 04/20/19 21:30 120/66 04/20/19 21:27 64 120/66 04/20/19 21:00 Room Air 04/20/19 20:12 99.0 64 21 120/66 (84) 95 04/20/19 16:00 98.0 59 18 118/56 (76) 96 04/20/19 13:44 118/67 Height (Feet): 5 Height (Inches): 5.00 Weight (Pounds): 174 Objective Constitutional: Denies: no symptoms, chills, fever, malaise, weakness, other HEENT: Denies: no symptoms, eye pain, blurred vision, tearing, double vision, ear pain, ear discharge, nose pain, nose congestion, throat pain, throat swelling, mouth pain, mouth swelling, other Cardiovascular: Denies: no symptoms, chest pain, edema, irregular heart rate, lightheadedness, palpitations, syncope, other Respiratory: Denies: no symptoms, cough, shortness of breath, SOB with excertion, SOB at rest, sputum, wheezing, other Neurologic/Psychiatric: Denies: no symptoms, anxiety, depressed, emotional problems, headache, numbness, paresthesia, pre-existing deficit, seizure, tingling, tremors, weakness, other Endocrine: Denies: no symptoms, excessive sweating, flushing, intolerance to cold, intolerance to heat, increased hunger, increased thirst, increased urine, unexplained weight gain, unexplained weight loss, other Microbiology Date/Time Source Procedure Growth Status 04/19/19 13:30 Stool Clostridium difficile Toxin Assay - Final Complete Laboratory Tests Test 04/21/19 08:10 White Blood Count 5.4 K/UL (4.8-10.8) Red Blood Count 2.96 M/UL (4.70-6.10) L Hemoglobin 8.5 G/DL (14.2-18.0) L Hematocrit 27.6 % (42.0-52.0) L Mean Corpuscular Volume 93 FL (80-99) Mean Corpuscular Hemoglobin 28.8 PG (27.0-31.0) Mean Corpuscular Hemoglobin Concent 30.9 G/DL (32.0-36.0) L Red Cell Distribution Width 18.0 % (11.6-14.8) H Platelet Count 116 K/UL (150-450) L Mean Platelet Volume 7.2 FL (6.5-10.1) Neutrophils (%) (Auto) 71.5 % (45.0-75.0) Lymphocytes (%) (Auto) 13.6 % (20.0-45.0) L Monocytes (%) (Auto) 13.1 % (1.0-10.0) H Eosinophils (%) (Auto) 1.3 % (0.0-3.0) Basophils (%) (Auto) 0.5 % (0.0-2.0) Sodium Level 136 MMOL/L (136-145) Potassium Level 5.1 MMOL/L (3.5-5.1) Chloride Level 107 MMOL/L (98-107) Carbon Dioxide Level 25 MMOL/L (21-32) Anion Gap 4 mmol/L (5-15) L Blood Urea Nitrogen 30 mg/dL (7-18) H Creatinine 1.9 MG/DL (0.55-1.30) H Estimat Glomerular Filtration Rate mL/min (>60) Glucose Level 212 MG/DL (74-106) H Calcium Level 7.5 MG/DL (8.5-10.1) L Phosphorus Level 2.9 MG/DL (2.5-4.9) Magnesium Level 1.8 MG/DL (1.8-2.4) Total Bilirubin 0.2 MG/DL (0.2-1.0) Aspartate Amino Transf (AST/SGOT) 15 U/L (15-37) Alanine Aminotransferase (ALT/SGPT) 9 U/L (12-78) L Alkaline Phosphatase 99 U/L (46-116) Total Protein 5.3 G/DL (6.4-8.2) L Albumin 1.4 G/DL (3.4-5.0) L Globulin 3.9 g/dL Albumin/Globulin Ratio 0.4 (1.0-2.7) L Current Medications Medications (Trade) Dose Ordered Sig/Sallie Route PRN Reason Start Time Stop Time Status Last Admin Dose Admin Acetaminophen (Tylenol) 650 mg Q4H PRN ORAL fever 04/06/19 14:00 05/01/19 13:59 Acetaminophen (Tylenol) 650 mg Q4H PRN ORAL Mild Pain/Temp > 100.5 04/13/19 16:15 05/13/19 16:14 04/17/19 22:46 Allopurinol (Allopurinol) 300 mg DAILY ORAL 04/07/19 09:00 05/03/19 09:59 04/21/19 10:14 Carvedilol (Coreg) 12.5 mg EVERY 12 HOURS ORAL 04/06/19 21:00 05/01/19 08:59 04/21/19 10:14 Chlorhexidine Gluconate (Abril-Hex 2%) 1 applic DAILY@1999 TOPIC 04/16/19 20:00 05/16/19 19:59 04/19/19 21:23 Dextrose (Dextrose 50%) 25 ml Q30M PRN IV Hypoglycemia 04/06/19 14:00 05/01/19 10:29 Dextrose (Dextrose 50%) 50 ml Q30M PRN IV Hypoglycemia 04/06/19 14:00 05/01/19 10:29 Fidaxomicin (Dificid) 200 mg EVERY 12 HOURS ORAL 04/16/19 21:00 04/25/19 23:59 04/21/19 10:15 Heparin Sodium (Porcine) (Heparin 5000 units/ml) 5,000 units EVERY 12 HOURS SUBQ 04/06/19 21:00 05/01/19 08:59 04/21/19 10:16 Hydralazine HCl (Apresoline) 50 mg Q8HR ORAL 04/06/19 14:00 05/01/19 13:59 04/21/19 05:18 Insulin Aspart (NovoLOG) BEFORE MEALS AND HS SUBQ 04/06/19 16:30 05/01/19 11:29 04/21/19 12:16 Lansoprazole (Prevacid) 30 mg DAILY GT 04/17/19 09:00 05/17/19 08:59 04/21/19 10:14 Memantine (Namenda) 5 mg BID ORAL 04/11/19 18:00 05/11/19 17:59 04/21/19 10:14 Minoxidil (Loniten) 2.5 mg Q4H PRN ORAL bp over 165 syst 04/06/19 14:00 05/01/19 13:59 Ondansetron HCl (Zofran) 4 mg Q6H PRN IVP Nausea & Vomiting 04/06/19 14:00 05/01/19 07:59 04/13/19 20:19 Quetiapine Fumarate (SEROqueL) 50 mg TWICE A DAY ORAL 04/06/19 18:00 05/03/19 17:59 04/21/19 10:14 Risperidone (RisperDAL) 1 mg Q12HR ORAL 04/12/19 15:00 05/12/19 14:59 04/21/19 10:14 Tamsulosin HCl (Flomax) 0.4 mg BID ORAL 04/06/19 18:00 05/01/19 12:59 04/21/19 10:14 Jyoti Piedra M.D. Apr 21, 2019 12:36
[2019-04-21 16:00] VITALS: BP 163/72
--- NOTE | 2019-04-21 16:10 | NUR ---
NURSE NOTES: RN called [facility] and transfer report given to FELIZ. Ambulance was set up @17:30pm. There is no family contact number.
[2019-04-21] MEDS ORDERED: DIFICID200 MG PO (16:50)
[2019-04-21] MEDS ORDERED: HYDRALAZINE HCL50 MG ORAL (16:51)
[2019-04-21] MEDS ORDERED: LANSOPRAZOLE30 MG GT (16:51)
[2019-04-21] MEDS ORDERED: NAMENDA5 MG ORAL (16:52)
[2019-04-21] MEDS ORDERED: RISPERDAL1 MG PO (16:53)
[2019-04-21] MEDS ORDERED: SEROQUEL25 MG ORAL (16:53)
[2019-04-21] MEDS ORDERED: ALLOPURINOL300 M1 GT (16:57)
[2019-04-21] MEDS ORDERED: LONITEN2.5 MG GT (16:57)
[2019-04-21] MEDS ORDERED: HEPARIN SO5000 UNIT2 SUBQ (16:58)
[2019-04-21] MEDS ORDERED: NOVOLIN R100 UNIT/1 SUBQ (17:02)
--- NOTE | 2019-04-21 17:40 | NUR ---
NURSE NOTES: RN followed up with [facility]. Per Ev,ambulance will late about 30-45 mins.
--- NOTE | 2019-04-21 19:02 | NUR ---
HAND-OFF: Report given to
--- NOTE | 2019-04-21 19:30 | NUR ---
NURSE NOTES: Patient discharged to [facility] accompanied by 3 ambulance personnel via gurney in stable condition. Patient's V/S stable. GT intact and flushed GT, GT dressing intact. Rectal tube was removed as ordered and proper skin care done. Oconnor is intact. No IV. Wound care done earlier all dressings are intact. No new skin issue. Patient has no belongings. Unable to contact with family since there is no phone number. Inter facility report given to MJ earlier and discharge instruction given to the nurse. VRE was colonized by Dr. lopez and C-diff is negative. Patient was clean and dry when leaving the facility.
--- NOTE | 2019-04-21 20:00 | Progress Note ---
DATE: 04/21/2019 SUBJECTIVE: This is an 83-year-old male patient. The patient has respiratory insufficiency and low O2 saturation. He still has some mood lability, confusion, disorganized thought process, decline in cognition below his baseline, agitation, and irritability, so he does require acute psychiatric inpatient treatment at this time. MENTAL STATUS EXAMINATION: This is an 83-year-old male. Appearance is disheveled. Attitude, irritable and agitated. Affect, guarded and restricted. Intellect, poor. Mood, depressed and anxious. Motor activity, psychomotor agitation. Attention span is poor. Orientation x2. Speech is low volume, slurred. Thought process, disorganized and illogical. Insight and judgment is poor. DIAGNOSIS: Paranoid schizophrenia with acute exacerbation, rule out dementia with psychosis. PLAN: Treat him with medications to stabilize mood, reduce anxiety, and decline in the patient's cognition. Chart reviewed. Discussed with staff. The patient is seen and assessed at bedside. Ami Hennessy M.D. DR: CHINTAN JOB#: [id number] CC:
--- NOTE | 2019-04-23 08:53 | Discharge Summary ---
Discharge Summary Discharge Summary _ DATE OF ADMISSION: 04/01/2019 DATE OF DISCHARGE: 04/21/2019 DISCHARGED BY: Dr. Gray REASON FOR ADMISSION: 83 years old male, [facility], with past medical history of bladder cancer, hypertension, CVA, diabetes mellitus, coronary artery disease, dysphagia, presented for evaluation due to hypoxia and altered mental status. Chest x-ray revealed pulmonary edema versus atelectasis. Evidence of osteopenia. Urinalysis was grossly positive for UTI. Laboratory work-up revealed no leukocytosis, hemoglobin 8.0, hematocrit 26.4, platelet count 105. Chemistry demonstrated evidence of renal failure with BUN 68 creatinine 3.8. Sodium 155. Potassium 3.0. Chloride 121. Lactic acid 1.1. AST 46, ALT 8. Troponin 0.029. pro BNP 540. EKG revealed sinus rhythm, no acute ischemic changes. Albumin 1.5. Patient subsequently admitted to telemetry floor for further management. CONSULTANTS: pulmonary Dr. Moyer ID specialist Dr. Wasserman GI specialist Dr. Valiente overhead worker Dr. Sofia professional organizer/oncologist Dr. Mcallister surgery Dr. Pepe urologist Dr. Martinez psychiatrist Dr. Hennessy pain specialist Dr. Ruelas [facility] COURSE: Patient admitted to telemetry floor and started on empiric antibiotics and IV fluids. Supplemental oxygen provided and titrated to keep pulse oximetry above 92%. Pulmonary toilet with bronchodilator provided. Patient was followed-up with chest x-ray, which showed mild interstitial congestion and possible patchy retrocardiac infiltrate. Venous duplex bilateral lower extremity demonstrated acute thrombus in bilateral lower extremity. VQ scan revealed low probability of pulmonary emboli. Echocardiogram demonstrated preserved ejection fraction of 60 to 65% with no evidence of wall motion abnormality. No evidence of vegetation. No evidence of pericardial effusion. Mild left ventricular hypertrophy. Right ventricular systolic pressure of 39 consistent with mild pulmonary hypertension. Evidence of aortic stenosis. Blood pressure was managed with beta-alexander and hydralazine. Blood sugar was managed with sliding scale of insulin/sensitive, hemoglobin A1c at goal. Platelet count was monitored, remained at the baseline. CEA within normal limits. Patient started on Marinol. Patient was on PPI. Strict aspiration precaution maintained. Swallow evaluation revealed silent aspiration risk due to CVA history. Diet was downgraded. Calorie count implemented with appetite stimulant. Stool for occult blood was positive x2. Patient subsequently undergone upper endoscopy with PEG placement. Procedure revealed duodenal ulcer, gastric ulcer and gastritis, status post biopsy. PEG was successfully placed. Abdominal binder applied. Strict aspiration /reflux precautions were maintained. G-tube site care provided. Tube feeding with tube feeding formula , goal rate as well as the protein supplement started as per registered dental hygienist recommendation. Patient was able to tolerate feeding. Biopsy of stomach antrum revealed mild chronic gastritis,no activity. No H. pylori was identified. No intestinal metaplasia, dysplasia or malignancy. Antibiotic provided as per ID specialist recommendation. Blood culture revealed Enterococcus faecalis. Urine culture revealed Enterococcus faecalis. Repeated blood culture on 04/02 were negative. Stool for C. difficile was positive. Patient was on contact isolation. Repeated stool difficile on 04/19 was negative. Patient completed treatment for bacteremia and UTI. ID specialist recommended continue p.o. Dificid 200 mg twice daily for 4 more days, given continued diarrhea Wastewater Engineer / oncologist followed. Given low hemoglobin and hematocrit and low platelet count , professional organizer recommended IVC filter placement. Patient subsequently undergone IVC filter placement by interventional radiology on 04/06. Wastewater Engineer recommended hold off on anticoagulation , until hemoglobin and hematocrit stabilized. Patient had pancytopenia with potential causes being multifactorial. Hepatitis panel and HIV test were both negative on prior admission. Ultrasound of the abdomen showed bladder mass. Peripheral smear revealed no evidence of blasts /schistocytes. Platelet count was closely monitored , prior to discharge 116, at baseline. Anemia was likely due to iron deficiency secondary to hematuria. Patient was on the IV iron for 5 days on prior admission. Folic acid was continued. Hemoglobin and hematocrit were closely monitored with goal to keep hemoglobin above 7. Prior to discharge hemoglobin 8.5 hematocrit 27.6. Stool for occult blood was positive x2. Urologist followed. Patient had a history of bladder cancer, status post TURBT in the past. Previous CT scan in December 2018 revealed evidence of bladder lesions, consistent with bladder cancer. Patient undergone TURBT on the prior admission. Pathology confirmed malignancy. On prior admission. patient had cystoscopy , but unfortunately urologist was unable to resect all tumor. Unfortunately greater part of the bladder was involved and essentially replaced all normal bladder with tumor. Per urologist patient will need radical cystectomy or radiation/chemotherapy at higher level of care. At that time urologist recommended continue Oconnor catheter with continuous bladder irrigation to maintain light pink urine and transfer to higher level of care for cystectomy Patient at that time [facility]. Currently, urologist recommended treat urinary tract infection , and once infection treated and patient stable , patient to follow-up as outpatient with urologist regarding bladder cancer and need for further management. Lead Slot Technician followed. Renal ultrasound revealed no evidence of hydronephrosis. Empty bladder with a Oconnor catheter. Renal parameters and electrolytes were closely monitored. Electrolytes corrected as needed , and nephrotoxins were avoided. BUN from 68 down to 30 , creatinine from 3.8 down to 1.99. Electrolytes replaced and remained stable prior to discharge. General surgeon followed. Patient noted to have a scrotal lesion. Wound care provided as per surgeon recommendation. No evidence of cellulitis. Patient also had a sacral decubitus ulcer stage III , present on admission . Wound care for sacral decubitus provided as per surgeon recommendation , continue wound care at the facility. Supportive care provided. Pain management was addressed as epr pain specialist recommendations Bowel regimen instituted. Psychiatrist followed. Per psychiatrist, patient had paranoid schizophrenia with acute exacerbation. Psychiatric medication regimen was optimized. Patient clinically stabilized and was ready for discharge to [facility] for continuation of care. FINAL DIAGNOSES: Acute encephalopathy- resolved Acute hypoxemic respiratory failure initially, -resolved Enterococcal bacteremia due to UTI Enterococcal UTI C. difficile positive Possible PNA Acute DVT right lower extremity Bladder cancer/invasive carcinoma of urinary bladder Anemia of iron deficiency , status post blood transfusion Acute renal failure on chronic kidney disease Mild pulmonary hypertension Diabetes mellitus Hypertension Thrombocytopenia Pancytopenia Sacral decubitus ulcer stage III, present on admission Scrotal lesion Paranoid schizophrenia with acute exacerbation History of CVA BPH DISCHARGE MEDICATIONS: See Medication Reconciliation list. DISCHARGE INSTRUCTIONS: [facility]. Follow up with medical doctor at the facility. I have been assigned to dictate discharge summary for this account. I was not involved in the patient's management. Lacey Brenner NP Apr 23, 2019 08:53
== END 2019-04-21 19:35 | DRG 166 ==
LOC: EDUNIT# 04:41 → EDBD 04:41 → EMR 04:52 → 2E 06:12 → EDBEDREQ 07:12 → 4E 04-06 13:31
PROC: 06H03DZ Insertion of Intraluminal Device into Inferior Vena Cava, Percutaneous Approach (ICD-10-PCS; principal; 2019-04-06)
PROC: 0DD78ZX Extraction of Stomach, Pylorus, Via Natural or Artificial Opening Endoscopic, Diagnostic (ICD-10-PCS; 2019-04-17 08:17)
PROC: 0DH63UZ Insertion of Feeding Device into Stomach, Percutaneous Approach (ICD-10-PCS; 2019-04-17 08:17)
DX: J96.01 Acute respiratory failure with hypoxia (principal); L89.153 Pressure ulcer of sacral region, stage 3; G92 Toxic encephalopathy; J18.9 Pneumonia, unspecified organism; I82.413 Acute embolism and thrombosis of femoral vein, bilateral; N39.0 Urinary tract infection, site not specified; N17.9 Acute kidney failure, unspecified; E87.0 Hyperosmolality and hypernatremia; E46 Unspecified protein-calorie malnutrition; A04.72 Enterocolitis due to Clostridium difficile, not specified as recurrent; D61.818 Other pancytopenia; F33.3 Major depressive disorder, recurrent, severe with psychotic symptoms; F20.0 Paranoid schizophrenia; R78.81 Bacteremia; I12.9 Hypertensive chronic kidney disease with stage 1 through stage 4 chronic kidney disease, or unspecified chronic kidney disease; N18.9 Chronic kidney disease, unspecified; E11.22 Type 2 diabetes mellitus with diabetic chronic kidney disease; Z86.73 Personal history of transient ischemic attack (TIA), and cerebral infarction without residual deficits; I25.10 Atherosclerotic heart disease of native coronary artery without angina pectoris; C67.9 Malignant neoplasm of bladder, unspecified; N40.1 Benign prostatic hyperplasia with lower urinary tract symptoms; R33.8 Other retention of urine; D50.9 Iron deficiency anemia, unspecified; B95.2 Enterococcus as the cause of diseases classified elsewhere; R31.9 Hematuria, unspecified; Z68.29 Body mass index [BMI] 29.0-29.9, adult; D69.6 Thrombocytopenia, unspecified; E87.6 Hypokalemia; R15.9 Full incontinence of feces; E86.0 Dehydration; N50.9 Disorder of male genital organs, unspecified; R13.10 Dysphagia, unspecified; K26.9 Duodenal ulcer, unspecified as acute or chronic, without hemorrhage or perforation; K25.9 Gastric ulcer, unspecified as acute or chronic, without hemorrhage or perforation; K29.70 Gastritis, unspecified, without bleeding
CPT/HCPCS: 36415; 36600; 71045; 74018; 76770; 76937; 78579; 78580; 80048; 80053; 80076; 80202; 81001; 81003; 82270; 82378; 82533; 82550; 82553; 82607; 82728; 82746; 82803; 82962; 83036; 83540; 83550; 83605; 83690; 83735; 83880; 84100; 84484; 84550; 85007; 85025; 85610; 85730; 86140; 86710; 86850; 86900; 86901; 86920; 87040; 87070; 87081; 87086; 87181; 87205; 87324; 93005; 93306; 93970; 94003; 94150; 94664; 96365; 97803; 99285; A9503; J1815; J2370; J2405; J2765; J7030; J8499